=== PATIENT | female | born 1945 | race Caucasian/White ===

== ENCOUNTER → 2018-01-19 16:19 | Outpatient (CLI) | payer MEDICARE, OTHER, SELFPAY ==
--- NOTE | 2018-01-19 16:22 | CT_ITS ---
STUDY: CT MAXILLOFACIAL SINUSES REASON FOR EXAM: Female, 72 years old. Sinusitis RADIATION DOSAGE (If Supplied By Facility): CTDIvol = ( 29.38 ) mGy, DLP = ( 363.80 ) mGycm TECHNIQUE: The patient was scanned in a multi detector CT scanner. High resolution axial imaging was performed without the administration of intravenous contrast material. Sagittal and coronal images were reconstructed. Individualized dose optimization techniques were used for this CT. COMPARISON: None. FINDINGS: FRONTAL SINUSES: Non developed. ETHMOIDAL SINUSES: Normal aeration, without mucosal inflammatory disease. MAXILLARY SINUSES: Normal aeration, without mucosal inflammatory disease. SPHENOIDAL SINUSES: Normal aeration, without mucosal inflammatory disease. There is patency of the bilateral maxillary infundibuli with normal uncinate processes, ethmoid bullae, and hiatus semilunaris. Normal bilateral middle turbinates. Normal bilateral inferior turbinates. Normal midline nasal septum. There is patency of the bilateral nasal airways. The visualized osseous structures are normal. The visualized bilateral orbital contents are normal. CT/Sinus/Facial Bone IMPRESSION: Normal CT examination of the maxillofacial sinuses. Electronically Signed: Negro Morales MD at 16:43 EDT , Service support ,
== END ==
PROVIDERS: Family Provider Family Medicine; PCP Family Medicine; Visit Provider Otolaryngology Otolaryngology/Facial Plastic Surgery
DX: J32.9 Chronic sinusitis, unspecified (principal)
CPT/HCPCS: 70486

== ENCOUNTER → 2018-03-19 08:16 | Outpatient (CLI) | payer MEDICARE, OTHER, SELFPAY ==
--- NOTE | 2018-03-19 08:25 | RAD_ITS ---
STUDY: AIR-CONTRAST UPPER GI SERIES. REASON FOR EXAM: Female, 72 years old. Gastroesophageal reflux disease. Hiatal hernia. FLUOROSCOPY TIME (if supplied): (0:49) minutes/seconds TECHNIQUE: The patient ingested barium. Multiple images of the esophagus, stomach and duodenum were obtained. COMPARISON: None. FINDINGS: There is evidence of a small sliding hiatal hernia. No gastroesophageal reflux is seen. The stomach and duodenum are unremarkable. There is no evidence of ulceration. No mass lesion is present. RAD/Upper GI Series Only IMPRESSION: Small sliding hiatal hernia without gastroesophageal reflux. Electronically Signed: Azam Mir MD at 14:28 EDT Tel [phone], Service support ,
== END ==
PROVIDERS: Family Provider Family Medicine; PCP Family Medicine; Visit Provider Internal Medicine Gastroenterology
DX: K21.9 Gastro-esophageal reflux disease without esophagitis (principal); K44.9 Diaphragmatic hernia without obstruction or gangrene
CPT/HCPCS: 74246

== ENCOUNTER 2018-04-04 08:13 | Day surgery (SDC) | payer MEDICARE, OTHER, SELFPAY ==
[2018-04-04 08:51] VITALS: BP 116/68; PULSE 66; RESP 16; TEMP 37.1; O2SAT 97; BMI 24.0
--- NOTE | 2018-04-04 09:34 | PCM.OPRPT ---
Problem List (1) Gastro-esophageal reflux disease without esophagitis Status: Acute (2) Chronic throat clearing Status: Acute Report of Operation Date of Procedure: 04/04/18 Pre-Operative Diagnosis: K 21.9 gas esophageal reflux disease without esophagitis. R 68.89 chronic throat clearing Post-Operative Diagnosis: Same Surgery/Procedure Performed:: Esophagogastroduodenoscopy with biopsy and with 48 hour pH probe Type of Anesthesia:: MAC Anesthesiologist: Jarrod Douglass Description of Procedure: Patient was brought into the endoscopy suite. Back of her throat was sprayed with Cetacaine spray. Bite-block was placed. She was placed in the left lateral decubitus position. She was given graded anesthesia. The scope was inserted into the oropharynx. It was directed down through the esophagus into the stomach and into the duodenum without difficulty. Operative findings: 1. Duodenum: Normal appearance no mass lesions no ulcerations no signs of bleeding. 2. Stomach: Normal appearance no mass lesions she did have some antral gastritis biopsy for H. pylori was obtained retroflexion did show a small hiatal hernia. There were no mass lesions. There is no signs of any bleeding. 3. Esophagus Z line was located at 36 cm it appeared normal. There is no signs of mass lesions. There is no signs of esophagitis. The pH probe was marked to 30/cm. It was placed in the oropharynx and directed down through the esophagus without difficulty. Suction was applied for the appropriate amount of time the pH probe was deployed. The scope was then reinserted into the esophagus and photograph was obtained showing the probe to be properly attached to the lateral sidewall of the esophagus. She tolerated this procedure well. - Admit VTE Documentation VTE Present on Admission: No VTE Mechan Device Prophylaxis: None VTE Pharm Prophylaxis ordered?: No Reason prophylaxis not ordered:: Treatment Not Indicated
[2018-04-04 09:41] VITALS: BP 116/68; BP 119/65; PULSE 93; RESP 16; TEMP 36.7; O2SAT 94
[2018-04-04 09:45] VITALS: BP 115/74; BP 116/68; PULSE 81; RESP 16; O2SAT 93
[2018-04-04 09:50] VITALS: BP 113/79; BP 116/68; PULSE 76; RESP 16; O2SAT 95
[2018-04-04 09:52] VITALS: BP 114/62; BP 116/68; PULSE 70; RESP 16; TEMP 37.1; O2SAT 93
[2018-04-04 10:10] VITALS: BP 116/68
== END 2018-04-04 10:26 | disposition home or self-care (01) ==
LOC: EN 08:15 → AC 08:16
PROVIDERS: Family Provider Family Medicine; PCP Family Medicine; Visit Provider Surgery
PROC: (CPT 43235; principal; 2018-04-04 09:00)
DX: K21.9 Gastro-esophageal reflux disease without esophagitis (principal); R68.89 Other general symptoms and signs; I10 Essential (primary) hypertension; E78.00 Pure hypercholesterolemia, unspecified
CPT/HCPCS: 43235; J7120

== ENCOUNTER 2018-07-07 10:15 | Emergency (ER) | payer MEDICARE, OTHER, SELFPAY ==
[2018-07-07 10:16] VITALS: BP 138/112; PULSE 110; RESP 18; TEMP 36.6; O2SAT 98; BMI 23.3
[2018-07-07 11:00] LABS: Mucous, Urine 0 SEEN /hpf (<or=2+); Red Blood Cells-Urine 0 SEEN /hpf (0-5)
[2018-07-07 11:05] LABS: Glucose, Dipstick Normal (Normal); Ketone-Dipstick 5 mg/dl (Negative); Leukocyte Esterase-Dipstick 500 /ul (Negative); Nitrite-Dipstick Positive (Negative); Occult Blood-Urine 10 /ul (Negative); Protein-Dipstick 15 mg/dl (Negative); Specific Gravity, Urine 1.015 (1.002-1.030); Urine Clarity Sl. Cloudy (Clear); Urine Urobilinogen 8 mg/dl (Normal)
[2018-07-07 11:08] LABS: Color, Urine SEE COMMENT BELOW (Yellow); Urine Bilirubin Dipstick 6 mg/dL (Negative)
[2018-07-07 11:22] LABS: Bacteria 2+ /hpf (None Seen); Squamous Epithelial Cells - UA 0-5 SEEN /hpf (5-10); White Blood Cells 5-10 SEEN /hpf (0-5)
--- NOTE | 2018-07-07 11:47 | ED.VISSUMM ---
- ER Visit Summary Date of Service: 07/07/18 Chief Complaint: urinary tract infection History of Present Illness: The patient is a 72 F with a history of frequent urinary tract infection presents with 2 days of dysuria, frequency, and urgency. No fever, nausea, or flank pain. She had a culture positive UTI approximately 15 days ago that grew out a form of staph, multidrug resistant but sensitive to oral doxycycline. She completed a course of doxycycline and felt mostly better but not completely back to baseline. She finished this 4 days ago and started having significant UTI symptoms again 2 days ago. She went back to the [facility] urgent care yesterday and had a culture sent off but the results are not back yet. Physical Examination: No fever. Not in distress. Sitting up in bed, well appearing. Abdomen is soft and nontender. No flank tenderness. Test Results: Urine definitely appears infected with positive nitrites, bacteria, leukocytes, and other markers of infection. I sent a new culture. Emergency Department Course and Treatment: I reviewed her culture from the with her permission and she was sensitive to vancomycin but resistant to most oral agents except for doxycycline. Most recent culture is still not resulted. Treatment Plan: I discussed the case with the patient's son, Dr. Ferris. She would prefer not to be admitted to the hospital at this point and since we do not have a new culture back yet, it will be difficult to direct therapy. We discussed options and since she did have indeterminate sensitivity to Macrobid on her last culture, we elected to treat her with this orally and to give her 1 dose of intravenous vancomycin here so that she will be covered and hopefully the culture will result tomorrow which can be used to direct further therapy. She may require an entire course of intravenous antibiotics which means she may need to come back to the emergency department tomorrow for another dose of IV antibiotics and either admission to the hospital or to get her set up with outpatient antibiotic therapy. She would prefer this over staying in the hospital at this time and given her well appearance, I think it is safe. Her son will assist with getting the culture results and she will return to the emergency department if she is any worse before then. Disposition: Home in stable condition Impression: Initial encounter multidrug-resistant urinary tract infection This note was generated with [employer] dictation software. It may contain incorrect words, spelling, and punctuation that were not noted in review of the chart prior to signing ED Disposition - Plan for ED Patient: Chief Complaint: Complaint Instructions: ED UTI Cystitis Female Prescriptions: Nitrofurantoin Macrocrystals [Macrobid] 100 mg PO Q12 #14 capsule Referrals: Rangel Santos MD [Primary Care Provider] -
--- NOTE | 2018-07-07 12:44 | ED.RN ---
CALLED [facility], PHARMACY DID NOT RECEIVE THE ORDERS FOR MEDS.
[2018-07-07] MEDS: Vancomycin IV 1,000 MG/200 ML BAG 200 MG IV (12:54)
[2018-07-07 14:08] VITALS: BP 146/74; PULSE 78; RESP 18
== END 2018-07-07 14:13 | disposition home or self-care (01) ==
LOC: ED 11:06
PROVIDERS: Emergency Provider Emergency Medicine; Family Provider Family Medicine; PCP Family Medicine
DX: N39.0 Urinary tract infection, site not specified (principal); Z16.24 Resistance to multiple antibiotics; Z16.29 Resistance to other single specified antibiotic
CPT/HCPCS: 81001; 87086; 87088; 99284; J7030

== ENCOUNTER 2018-07-08 09:56 | Inpatient (IN) | payer MEDICARE, OTHER, SELFPAY ==
[2018-07-08 09:56] VITALS: BP 127/86; PULSE 110; RESP 18; TEMP 37.6; O2SAT 96; BMI 23.3
--- NOTE | 2018-07-08 10:23 | ED.VISSUMM ---
- ER Visit Summary Date of Service: 07/08/18 Chief Complaint: [] Persistent urinary tract infections history of same History of Present Illness: The patient is a 72 F [] please see the note dictated yesterday July 07 ED dictation, the patient has persistent UTI symptoms she apparently has recent urine cultures that show multiple drug-resistant organisms but they are so sensitive to doxycycline intermittently sensitive to Macrobid because of that concern additional cultures were sent yesterday and she was given a dose of IV vancomycin, she felt well did not wish to be admitted she presents today basically because she is concerned the infection has persisted she continues to have dysuria and urinary frequency her son is a physician he was contacted In the past she has been on suppressive therapy with Macrobid that was discontinued a few months ago related to concerns for resistance developing she has had no fever no cough no abdominal pain just a frequent urination and dysuria Physical Examination: [] She is quite upset about all the above her temperature is 99.6 her blood pressures within normal range HEENT is unremarkable lungs are clear heart tones are normal the abdomen soft nontender upper lower extremities and back unremarkable neurologically is awake alert moving all 4 Test Results: [] Emergency Department Course and Treatment: [] Patient had unremarkable labs yesterday we will obtain screening labs I talked with her son who is a physician Dr. Gonzales [phone]'s time will obtain additional screening labs will start the patient on IV Rocephin and asked hospitalist to see her for further management Treatment Plan: [] Disposition: [] Admit stable pending hospitalist evaluation Impression: [] Persistent UTI refractory to outpatient therapy history of resistant bacteria causing UTI This note was generated with [employer] dictation software. It may contain incorrect words, spelling, and punctuation that were not noted in review of the chart prior to signing ED Disposition - Plan for ED Patient: Chief Complaint: Complaint Referrals: Rangel Santos MD [Primary Care Provider] -
[2018-07-08 10:34] LABS: Mucous, Urine 0 SEEN /hpf (<or=2+); Red Blood Cells-Urine 0 SEEN /hpf (0-5)
[2018-07-08 10:36] LABS: Color, Urine Yellow (Yellow); Glucose, Dipstick Normal (Normal); Ketone-Dipstick 5 mg/dl (Negative); Leukocyte Esterase-Dipstick 500 /ul (Negative); Nitrite-Dipstick Negative (Negative); Occult Blood-Urine 10 /ul (Negative); Protein-Dipstick Negative (Negative); Urine Bilirubin Dipstick Negative (Negative); Urine Clarity Sl. Cloudy (Clear); Urine Urobilinogen Normal (Normal)
--- NOTE | 2018-07-08 10:36 | ED.DCSUM_ITS ---
- ER Visit Summary Date of Service: 07/08/18 Chief Complaint: [] Persistent urinary tract infections history of same History of Present Illness: The patient is a 72 F [] please see the note dictated yesterday July 07 ED dictation, the patient has persistent UTI symptoms she apparently has recent urine cultures that show multiple drug- resistant organisms but they are so sensitive to doxycycline intermittently sensitive to Macrobid because of that concern additional cultures were sent yesterday and she was given a dose of IV vancomycin, she felt well did not wish to be admitted she presents today basically because she is concerned the infection has persisted she continues to have dysuria and urinary frequency her son is a physician he was contacted In the past she has been on suppressive therapy with Macrobid that was discontinued a few months ago related to concerns for resistance developing she has had no fever no cough no abdominal pain just a frequent urination and dysuria Physical Examination: [] She is quite upset about all the above her temperature is 99.6 her blood pressures within normal range HEENT is unremarkable lungs are clear heart tones are normal the abdomen soft nontender upper lower extremities and back unremarkable neurologically is awake alert moving all 4 Test Results: [] Emergency Department Course and Treatment: [] Patient had unremarkable labs yesterday we will obtain screening labs I talked with her son who is a physician Dr. Gonzales [phone]'s time will obtain additional screening labs will start the patient on IV Rocephin and asked hospitalist to see her for further management Treatment Plan: [] Disposition: [] Admit stable pending hospitalist evaluation Impression: [] Persistent UTI refractory to outpatient therapy history of resistant bacteria causing UTI This note was generated with [employer] dictation software. It may contain incorrect words, spelling, and punctuation that were not noted in review of the chart prior to signing ED Disposition - Plan for ED Patient: Chief Complaint: Complaint Referrals: Rangel Santos MD [Primary Care Provider] -
[2018-07-08 10:42] LABS: Bacteria RARE /hpf (None Seen); Squamous Epithelial Cells - UA 0-5 SEEN /hpf (5-10); White Blood Cells 0-5 SEEN /hpf (0-5)
[2018-07-08 10:56] LABS: Absolute Lymphocyte Count 1.32 X10^3/ul (0.83-4.51); Absolute Neutrophil Count 4.4 X10^3/uL (2.0-7.7); Basophil# 0.02 X10^3/uL; Basophil% 0.3 % (0-1); Eosinophil# 0.09 X10^3/uL; Eosinophils% 1.5 % (0-5); Hematocrit 46.7 % (37-47); Hemoglobin 15.9 g/dl (12.0-15.0); Lymphocyte # 1.32 X10^3/ul (4.0); Lymphocyte % 21.3 % (19-41); Mean Corpuscular Hgb 31.5 pg (27.0-32.0); Mean Corpuscular Volume 92.7 fL (81-99); Mean Platelet Vol. 10.8 fl (6.2-12.0); Monocyte# 0.31 X10^3/uL; Neutrophil # 4.44 X10^3/uL (2.7-7.7); Neutrophil % 71.7 % (47-70); Platelet Count 275 K/mm3 (150-450); RBC Distribution Width CV 12.6 % (11.6-14.6); RBC Distribution Width SD 42.3 fl (35.1-43.9); Red Blood Count 5.04 M/mm3 (4.2-5.4); White Blood Count 6.2 K/mm3 (4.4-11.0)
[2018-07-08 10:57] LABS: POSITIVE COUNT NO; POSITIVE DIFFERENTIAL NO; POSITIVE MORPHOLOGY NO
[2018-07-08 11:06] LABS: Anion Gap 11 (5-15); BUN 16 mg/dL (7-18); BUN/Creat Ratio 17.8 RATIO (10-20); Calcium,Total 9.3 mg/dL (8.5-10.1); Chloride 109 mmol/L (98-107); EST Glomerular Filtration Rate 65 mL/min (>60); Est Glom Filt Rate - Afr Amer 78 mL/min (>60); Estimated Creatinine Clearance 45.36 ml/min; Glucose 113 mg/dL (74-106); Potassium 3.8 mmol/L (3.5-5.1); Sodium Level 144 mmol/L (136-145)
[2018-07-08 11:41] LABS: Lactic Acid 0.8 mmol/L (0.4-2.0)
--- NOTE | 2018-07-08 11:59 | PCM.HP.STD ---
Problem List (1) Gastro-esophageal reflux disease without esophagitis Status: Chronic (2) Hyperlipidemia Status: Chronic (3) Hypertension Status: Chronic History of Present Illness Date of Admission: 07/08/18 Chief Complaint: Dysuria, urgency, frequency. The patient is a 72 year old F with past medical history as mentioned above presented to the emergency room because of persistent UTI symptoms. Her illness started around 2 weeks ago with dysuria, frequency and urgency as well and she was started on Bactrim that she took for almost 1 week without improvement of her symptoms. Towards the end of the Bactrim course, she received a call from her PCPs office and was informed that she needed to start a different antibiotic because of the results of the urine culture and she was started on doxycycline. She completed 1 week of doxycycline treatment twice a day without improvement of her symptoms. She continued to have urinary discomfort upon urination, urgency and frequency as well as a subjective low-grade fever. Yesterday, she came to the emergency department with the same symptoms, she was given 1 dose of IV vancomycin because reportedly, urine culture revealed staph aureus and she was discharged home on Macrobid. Today, she is getting back to the ED because of persistent dysuria, frequency and urgency. She had a history of hypertension and she has been on Norvasc and her blood pressure seemed to be under control. She had a history of hyperlipidemia and she has been on statins. Recently, she was seen by Dr. Lu for persistent throat clearing, had a esophageal pH monitoring that was unremarkable and was diagnosed with probable GERD although she has not been on any PPI. In the emergency department, she was tachycardic, afebrile, blood pressure stable, pulse ox is maintained on room air. Her routine blood work was unremarkable, no leukocytosis. Lactic acid is normal. Urinalysis from today revealed cloudy urine, negative for nitrite, negative for leukocyte esterase, there was 0-5 WBCs and rare bacteria. Urine analysis from yesterday July 07, 2018 revealed cloudy urine, positive for nitrite and leukocyte esterase, there was 5-10 WBCs and 2+ bacteria. Urine culture was done yesterday and revealed presumptive E. coli, sensitivities pending. She is being admitted for persistent symptomatic acute cystitis with failure of outpatient therapy. Past Medical History Past Medical History (Chronic Problems): Chronic Problems (Last Reviewed 05/14/18 @ 10:02 by Zuleima Osullivan) Gastro-esophageal reflux disease without esophagitis (Chronic) Hyperlipidemia (Chronic) Hypertension (Chronic) Medical History: Medical History (Last Reviewed 05/14/18 @ 10:02 by Zuleima Osullivan) Hypercholesterolemia E78.00 Allergies No Known Allergies Allergy (Verified 07/08/18 09:58) Home Medications: Ambulatory Orders Medication Instructions Recorded Simvastatin [Simvastatin] 10 mg PO DAILY 08/05/16 amlodipine 5 mg tablet 5 mg PO QHS 03/30/18 Nitrofurantoin Macrocrystals 100 mg PO Q12 #14 capsule 07/07/18 [Macrobid] Surgical History: Surgical History (Last Reviewed 05/14/18 @ 10:02 by Zuleima Osullivan) History of appendectomy Z90.49 History of hysterectomy Z90.710 History of laparoscopic cholecystectomy Z90.49 history of surgery for subdural hematoma Surgical History: appendectomy, cholecystectomy, herniorrhaphy Psychiatric History: No pertinent psych hx [employer]ER History: No pertinent [employer]ER history Lives: Spouse/ Significant Other Smoking Status: Never smoker Alcohol: None Drugs: None - *Family History Maternal Family History: Family History (Last Reviewed 05/14/18 @ 10:02 by Zuleima Osullivan) Mother Heart disease Father Heart disease Brother Heart disease History Items: No pertinent history Paternal Family History: Family History (Last Reviewed 05/14/18 @ 10:02 by Zuleima Osullivan) Mother Heart disease Father Heart disease Brother Heart disease History Items: No pertinent history Review of Systems Constitutional: Reports: Fever. Denies: Anorexia, Chills, Weakness Eyes: Denies: Blurred vision, Double vision, Drainage, Redness HEENT: Denies: Difficulty Hearing, Ear Pain, Eye Pain, Nasal Congestion, Sore Throat Cardiovascular: Denies: Chest Pain, Chest Pressure, Chest Tightness, Heaviness, Palpitations, Syncope Respiratory: Denies: Cough, Pleuritic Pain, Shortness of Breath, Sputum production, Wheezing Gastrointestinal: Denies: Abdominal Pain, Constipation, Diarrhea, Nausea, Vomiting Genitourinary: Reports: Dysuria, Frequency, Urgency. Denies: Hematuria Musculoskeletal: Denies: Arm Pain, Back Pain, Foot Pain Skin: Denies: Dryness, Rash Neurological: Denies: Balance problems, Double vision, Change in Speech, Slurred speech, Confusion, Focal weakness, Headaches, Incoordination Psychiatric: Denies: Anxiety, Depression Endocrine: Denies: Change in Body Habitus, Polydipsia VTE Information - Inpt Only VTE Present on Admission: No VTE Mechan Device Prophylaxis: None VTE Pharm Prophylaxis ordered?: Yes - Physical Exam General: Alert, Oriented x3, Cooperative, No apparent distress HEENT: Atraumatic, PERRLA, EOMI, Normocephalic Oral: Moist Mucosa, No Gingival or Mucosal Lesions/ Ulcerations Neck: Supple, No JVD, Negative Carotid Bruits, Trachea Midline, Thyroid Normal Size and Texture Lungs: Clear to auscultation, Normal air movement, No rhonchi, No wheeze, No rales Cardiovascular: Regular rate, Regular Rhythm, Normal S1, Normal S2, No murmurs Abdomen: Bowel Sounds Present, Soft, Non Tender, Non-Distended, No Hepato-splenomegaly Extremities: No clubbing, No cyanosis, No edema Skin: No rashes, No breakdown Lymphatic: No Cervical, Supraclavicular, or Inguinal Adenopathy Neurological: Cranial nerves II-XII grossly intact, Motor Exam 5/5 strength throughout Psych/Mental Status: Normal Affect, Appropriate, Alert and oriented to time, place, person, mood and affect Vital Signs Temp Pulse Resp BP Pulse Ox 99.6 F H 110 H 18 127/86 H 96 07/08/18 09:56 07/08/18 09:56 07/08/18 09:56 07/08/18 09:56 07/08/18 09:56 Oxygen Delivery Method Room Air Weight: 132 lb Body Mass Index (BMI) 23.3 Laboratory Tests Past 24 Hrs 07/08/18 07/08/18 07/08/18 10:25 10:43 10:43 WBC 6.2 RBC 5.04 Hgb 15.9 H Hct 46.7 MCV 92.7 MCH 31.5 MCHC 34.0 RDW 12.6 RDW Differential 42.3 Plt Count 275 MPV 10.8 Immature Gran % (Auto) 0.200 Neut % (Auto) 71.7 H Lymph % (Auto) 21.3 Alexander % (Auto) 5.0 Eos % (Auto) 1.5 Baso % (Auto) 0.3 Absolute Neuts (auto) 4.4 Absolute Lymphs (auto) 1.32 Total Counted Not Reportable Sodium 144 Potassium 3.8 Chloride 109 H Carbon Dioxide 24.0 Anion Gap 11 BUN 16 Creatinine 0.90 Estim Creat Clear Calc 45.36 Est GFR (MDRD) Af Amer 78 Est GFR (MDRD) Non-Af 65 BUN/Creatinine Ratio 17.8 Glucose 113 H Lactic Acid Calcium 9.3 Urine Color Yellow Urine Clarity Sl. Cloudy Urine pH 6.0 Ur Specific Terrell 1.010 Urine Protein Negative Urine Glucose (UA) Normal Urine Ketones 5 H Urine Occult Blood 10 H Urine Nitrite Negative Urine Bilirubin Negative Urine Urobilinogen Normal Ur Leukocyte Esterase 500 H Urine RBC 0 SEEN Urine WBC 0-5 SEEN Ur Squamous Epith Cells 0-5 SEEN Urine Bacteria RARE Urine Mucus 0 SEEN 07/08/18 11:00 WBC RBC Hgb Hct MCV MCH MCHC RDW RDW Differential Plt Count MPV Immature Gran % (Auto) Neut % (Auto) Lymph % (Auto) Alexander % (Auto) Eos % (Auto) Baso % (Auto) Absolute Neuts (auto) Absolute Lymphs (auto) Total Counted Sodium Potassium Chloride Carbon Dioxide Anion Gap BUN Creatinine Estim Creat Clear Calc Est GFR (MDRD) Af Amer Est GFR (MDRD) Non-Af BUN/Creatinine Ratio Glucose Lactic Acid 0.8 Calcium Urine Color Urine Clarity Urine pH Ur Specific Terrell Urine Protein Urine Glucose (UA) Urine Ketones Urine Occult Blood Urine Nitrite Urine Bilirubin Urine Urobilinogen Ur Leukocyte Esterase Urine RBC Urine WBC Ur Squamous Epith Cells Urine Bacteria Urine Mucus Assessment/Plan This is a 72 years old female patient presented to the emergency room because of persistent dysuria, frequency and urgency after she received multiple courses of antibiotics for the last couple weeks without improvement and she is being admitted for persistent acute cystitis with failure of outpatient therapy. #1 persistent acute cystitis: Patient has been on Bactrim for a week followed by 1 week of doxycycline without improvement. She was started on Bactrim yesterday. She states that she was called by her PCPs office during her that they needed to change the antibiotic from Bactrim to doxycycline based on her urine culture which are not available at this time. Urine analysis from today and yesterday reviewed. At this time, she is tachycardic, afebrile, blood pressure stable. Lactic acid is normal. No evidence of sepsis or severe sepsis. Urine culture sent. Routine blood work was unremarkable, no leukocytosis. Plan: Admit to [facility] floor, IV fluids, start IV Rocephin, obtain urine culture that was done at [facility] [place] in the last couple of weeks, Tylenol as needed, Zofran as needed. #2 hypertension: Blood pressure stable, continue Norvasc. #3 hyperlipidemia: Continue statins. #4 GERD: Recent diagnosis, not on PPI. She is asymptomatic. #5 DVT prophylaxis: Subcu Lovenox. This note was generated with [employer] dictation software. It may contain incorrect words, spelling, and punctuation that were not noted in checking the note before signing. Code Visit Inpatient E&M: 94232 Init Hosp L2
[2018-07-08 12:15] VITALS: BP 128/72; PULSE 85; RESP 16; O2SAT 98
[2018-07-08 12:22] VITALS: BMI 23.4; BMI 23.5
[2018-07-08 12:48] VITALS: BP 133/72; PULSE 69; RESP 16; TEMP 36.7; O2SAT 98
[2018-07-08] MEDS: 0.9% Normal Saline 1,000 ML 100 ML IV (13:02)
[2018-07-08 18:08] VITALS: BP 130/66; PULSE 85; RESP 18; TEMP 36.7; O2SAT 95
[2018-07-08 20:00] VITALS: BP 136/71; PULSE 62; RESP 14; TEMP 36.4; O2SAT 97
[2018-07-09 02:00] VITALS: BP 121/77; PULSE 60; RESP 14; TEMP 36.6; O2SAT 95
[2018-07-09] MEDS: Acetaminophen 325 MG Tablet 650 MG PO (06:55)
[2018-07-09 07:31] VITALS: BP 142/87; PULSE 66; RESP 16; TEMP 36.5; O2SAT 97
--- NOTE | 2018-07-09 09:05 | PCM.PROGNOTE ---
Subjective: Chief complaint: Follow-up after admission for persistent acute cystitis. Patient seen and examined. No acute events overnight. Today, she complained of significant dysuria, frequency and mild pelvic pain. She mentioned that she has this pain when she urinates and even without urination. According to the patient, it has been getting worse. She remained afebrile. She denied vaginal discharge. She denies constipation or diarrhea. He is afebrile, vital signs are stable. - Physical Exam General: Alert, Oriented x3, Cooperative, No apparent distress HEENT: Atraumatic, PERRLA, EOMI, Normocephalic Oral: Moist Mucosa, No Gingival or Mucosal Lesions/ Ulcerations Neck: Supple, No JVD, Negative Carotid Bruits, Trachea Midline, Thyroid Normal Size and Texture Lungs: Clear to auscultation, Normal air movement, No rhonchi, No wheeze, No rales Cardiovascular: Regular rate, Regular Rhythm, Normal S1, Normal S2, PMI Normal Abdomen: Bowel Sounds Present, Soft, Non Tender, Non-Distended, No Hepato-splenomegaly Extremities: No clubbing, No cyanosis, No edema Skin: No rashes, No breakdown Lymphatic: No Cervical, Supraclavicular, or Inguinal Adenopathy Neurological: Cranial nerves II-XII grossly intact, Neuro grossly intact Psych/Mental Status: Normal Affect, Appropriate, Alert and oriented to time, place, person, mood and affect Vital Signs Temp Pulse Resp BP Pulse Ox 97.7 F L 66 16 142/87 H 97 07/09/18 07:31 07/09/18 07:31 07/09/18 07:31 07/09/18 07:31 07/09/18 07:31 Oxygen Delivery Method Room Air Weight: 132 lb 7.965 oz Body Mass Index (BMI) 23.4 Intake and Output for Last 24 Hours 07/07/18 07/08/18 07/09/18 23:59 23:59 23:59 Intake Total 1582 / 1582 200 / 200 Output Total 500 / 500 150 / 150 Balance 1082 / 1082 50 / 50 Medical Necessity - Tobacco Use Smoking Status: Never smoker Assessment/Plan This is a 72 years old female patient presented to the emergency room because of persistent dysuria, frequency and urgency after she received multiple courses of antibiotics for the last couple weeks without improvement and she is being admitted for persistent acute cystitis with failure of outpatient therapy. #1 persistent acute cystitis: She is on IV Rocephin. Her vital signs are stable, afebrile. She is still symptomatic with significant dysuria and frequency as well as pelvic pain. Urine culture from yesterday still pending. Urine culture from July 07, 2018 showed result of E. coli, sensitivity is pending. We are waiting for the urine culture results from PCPs office, which will be tomorrow. Plan: Change Rocephin to IV Zosyn, pelvic ultrasound, OxyIR as needed for pain. #2 hypertension: Blood pressure stable, continue Norvasc. #3 hyperlipidemia: Continue statins. #4 GERD: Recent diagnosis, not on PPI. She is asymptomatic. #5 DVT prophylaxis: Subcu Lovenox. This note was generated with [employer] dictation software. It may contain incorrect words, spelling, and punctuation that were not noted in checking the note before signing. Code Visit Inpatient E&M: 90340 Subs Hosp L2
[2018-07-09] MEDS: oxyCODONE 5 MG Tablet PO (09:36)
[2018-07-09] MEDS: Enoxaparin 40 MG/0.4 ML Syringe SC (09:38)
[2018-07-09] MEDS: Piperacil/Tazobactam 3.375 GM/50 ML ML IV ×2 (10:53→22:22)
[2018-07-09] MEDS: Ondansetron 4 MG/2 ML Vial IV (11:29)
[2018-07-09 11:37] VITALS: BP 146/75; PULSE 65; RESP 16; TEMP 36.6; O2SAT 99
[2018-07-09 15:12] VITALS: BP 141/73; PULSE 62; RESP 16; TEMP 36.4; O2SAT 100
[2018-07-09 22:15] VITALS: BP 118/75; PULSE 59; RESP 16; TEMP 36.6; O2SAT 97
[2018-07-09] MEDS: Atorvastatin Calcium 10 MG Tablet 5 MG PO (22:23)
[2018-07-09] MEDS: amLODIPine 5 MG Tablet PO (22:24)
[2018-07-10 04:50] VITALS: BP 132/81; PULSE 64; RESP 18; TEMP 36.6; O2SAT 98
[2018-07-10] MEDS: Ondansetron 4 MG/2 ML Vial IV (05:01)
[2018-07-10] MEDS: 0.9% NaCl Peripheral Flush Adult/Peds IV (05:01)
[2018-07-10] MEDS: Piperacil/Tazobactam 3.375 GM/50 ML ML IV (05:44)
[2018-07-10 08:30] VITALS: BP 133/90; PULSE 60; RESP 16; TEMP 37.2; O2SAT 97
--- NOTE | 2018-07-10 10:35 | CASEMGMT ---
ALONDRA THURMAN Face to Face with patient for initial transition planning/care coordination assessment. RN CM introduced self and role at [facility]. Patient sitting in chair, alert and oriented. Patient willing to participate in assessment and is able to answer all questions appropriately. Care providers, pharmacy, and demographics verified. See link attached. Patient wishes to discharge home, denies need for home health at this time. Patient states she has no further needs or concerns at this time. CM to follow for discharge planning needs that may arise. Disposition Plan: Patient to discharge home with family support and follow-up plans in place. Mya CRAWFORD, RN, CM
--- NOTE | 2018-07-10 11:27 | PCM.HP.ID ---
Problem List (1) Infection due to ESBL-producing Escherichia coli Status: Acute Reason for Consult: esbl Consulted by: Dr. Mendes History of Present Illness: The patient is a 72 year old F with recurrent uti who presented with 2 weeks of dysuria. No abd pain, no flank pain, no fever. Had been on suppressive bactrim in the past, stopped in this past spring. Follows with Dr. Etienne. Had prior collagen injection into bladder at [facility]. When uti started again, given 1 week of bactrim with no improvement. Ucx 06/20 showed a MDR staph hominis, so abx changed to doxy for one week. No improvement with either course. Cxs repeated 07/06, sent to ED 07/07, given dose of vanc and then sent home on macrobid. Came back with persistent sx on 07/08 and GNR on ucx. Given dose of ceftriaxone, still no improvement, changed to zosyn 07/09, now feeling better, ucx with esbl ecoli. Full ROS performed and neg except as noted above. Some associated nausea and headache. - Medical History Past Medical History (Chronic Problems): Chronic Problems (Last Reviewed 05/14/18 @ 10:02 by Zuleima Osullivan) Gastro-esophageal reflux disease without esophagitis (Chronic) Hyperlipidemia (Chronic) Hypertension (Chronic) Allergies/Adverse Reactions: Allergies No Known Allergies Allergy (Verified 07/08/18 09:58) Home Medications: Ambulatory Orders Medication Instructions Recorded Simvastatin [Simvastatin] 10 mg PO QHS 08/05/16 amlodipine 5 mg tablet 5 mg PO QHS 03/30/18 Nitrofurantoin Macrocrystals 100 mg PO Q12 #14 capsule 07/07/18 [Macrobid] Ascorbic Acid [Vitamin C] 500 mg PO BIDCM #60 tab 07/10/18 Fosfomycin Tromethamine [Monurol] 3 gm PO UD #3 packet 07/10/18 Methenamine Hippurate [Hiprex] 1 gm PO BID #60 tab 07/10/18 - Social History SMOKING STATUS:: Never smoker Vital Signs Temp Pulse Resp BP Pulse Ox 99.0 F 60 16 133/90 H 97 07/10/18 08:30 07/10/18 08:30 07/10/18 08:30 07/10/18 08:30 07/10/18 08:30 Oxygen Delivery Method Room Air Weight: 60.1 kg Body Mass Index (BMI) 23.4 - Other Studies Radiology: [] reviewed Other Studies: [] Route of nutrition/ use of supplements: [] Nutritional Intake: [] IV Site: [] Pederson Catheter: [] - Physical Exam General: Alert, Oriented x3, Cooperative, No apparent distress HEENT: Atraumatic, PERRLA, EOMI Neck: Supple, No Nodes Lungs: Clear to auscultation, Normal air movement Cardiovascular: Regular rate, Regular Rhythm Abdomen: Soft, Non Tender, Non-Distended, - - no flank pain Extremities: No edema Skin: No rashes IV Site: Peripheral, without redness Musculoskeletal: No Tenderness to Palpation of Joints or Extremities Neurological: Cranial nerves II-XII grossly intact - Assessment/Plan Antibiotics: [] Assessment/Plan: [] complicated esbl ecoli uti - also with recent growth staph hominis. On zosyn, feeling better. Ok for d/c home on fosfomycin 3gm q3day for 3 doses. 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 Question if this may represent an ongoing nidus of infection. Will also start methenamine and vit C for prevention. Thank you, will follow, ID follow up in 3-4 weeks. D/w primary team.
--- NOTE | 2018-07-10 11:28 | PCM.DC ---
- Discharge Diagnoses Current Active Problems: Current Active and Chronic Problems (Last Reviewed 05/14/18 @ 10:02 by Zuleima Osullivan) Hyperlipidemia (Chronic) Hypertension (Chronic) You will use the following diet at home:: Cardiac Your food should be the consistency of: Regular Discharge Activity: Return to Normal Activity Weight Bearing Status: Weight bearing as tolerated Call your doctor if you observe: Fever of 101 or Higher, Shortness of breath, Dizziness, Fainting spells, Chest pain, Increased palpitations (irregular heartbeat), Uncontrolled pain Allergies/Adverse Reactions: Allergies No Known Allergies Allergy (Verified 07/08/18 09:58) Medications to take at Discharge Simvastatin 10 mg PO QHS 08/05/16 amlodipine 5 mg tablet 5 mg PO QHS 03/30/18 Ascorbic Acid [Vitamin C] 500 mg PO BIDCM #60 tab 07/10/18 Fosfomycin Tromethamine [Monurol] 3 gm PO UD #3 packet 07/10/18 Methenamine Hippurate [Hiprex] 1 gm PO BID #60 tab 07/10/18 Primary Care Physician: Rangel Santos MD [Primary Care Provider] - Please follow up with your Primary Care Physician in: 1-2 WEEKS. Test Results: Test results from this visit will be discussed in further detail at your follow-up appointment, if applicable. Please Follow Up With: Don Gibson MD When: PLEASE CALL HIS OFFICE.
--- NOTE | 2018-07-10 13:27 | PCM.DC.SUM ---
Discharge Date and Diagnosis - Problem List Patient Problems: Active and Suspected Problems (Last Reviewed 05/14/18 @ 10:02 by Zuleima Osullivan) Infection due to ESBL-producing Escherichia coli (Acute) Date of Admission: 07/08/18 Date of Discharge: 07/10/18 - Primary Discharge Diagnosis Active and Suspected Problems (Last Reviewed 05/14/18 @ 10:02 by Zuleima Osullivan) Acute cystitis due to ESBL-producing Escherichia coli with failure of outpatient therapy (Acute) - Secondary Discharge Diagnosis Chronic Problems (Last Reviewed 05/14/18 @ 10:02 by Zuleima Osullivan) Gastro-esophageal reflux disease without esophagitis (Chronic) Hyperlipidemia (Chronic) Hypertension (Chronic) Hospital Course and Treatment Imaging Results: Clinical Impression(s) from Imaging Studies Pelvis Ultrasound 07/09/18 09:04 IMPRESSION: Questionable lobulated mass of the bladder. Electronically Signed: Silver Melara DO at 18:58 EDT Tel [phone], Service support , Dr. gibson, infectious disease. Operations: None Procedures: None Summary of Care Provided: Patient seen and examined on the day of discharge and appeared to be stable to be discharged home. Dysuria and genital pain significantly improved. She has no new complaints. Her vital signs are stable. - Physical Exam General: Alert, Oriented x3, Cooperative, No apparent distress. HEENT: Atraumatic, PERRLA, EOMI. Neck: Supple, No JVD, Negative Carotid Bruits, Trachea Midline, Thyroid Normal. Lungs: Clear to auscultation, Normal air movement, No rhonchi, No wheeze, No rales. Cardiovascular: Regular rate, Regular Rhythm, Normal S1, Normal S2, PMI Normal. Abdomen: Bowel Sounds Present, Soft, Non Tender, Non-Distended, No Hepato-splenomegaly. Extremities: No clubbing, No cyanosis, No edema Skin: No rashes, No breakdown Neurological: Neuro grossly intact Vital Signs are stable. Hospital course: This is a 72 years old female patient admitted because of persistent dysuria, frequency and urgency after she received multiple courses of antibiotics for recurrent symptoms of acute cystitis. Patient was diagnosed with acute cystitis around 2 weeks ago, received 1 week of Bactrim without improvement. Then she was transitioned to doxycycline based on her cultures and she continued to have symptoms of dysuria, frequency and urgency. The day before admission, she was seen in the ER, was started on Macrobid and urine culture was sent. She was admitted to the floor, started on IV Rocephin and IV fluids. Her vital signs are stable. Routine blood work was unremarkable. She remained afebrile throughout admission and her vital signs remained stable. Urine culture sent and showed mixed growth. Urine culture that was done one day before admission revealed ESBL E. coli. Antibiotics was transitioned to IV Zosyn. Today, infectious disease consulted and recommended to start patient fosfomycin. Because of this persistent pain, pelvic ultrasound done and revealed questionable lobulated mass of the bladder. I spoke with the patient about this and she stated that she had collagen injection to her bladder and she had ultrasound in the past and she was informed that this questionable mass is likely due to the collagen injection. Patient discharged home in a stable medical condition, discharged on fosfomycin 3 g 1 dose every 3 days for a total of 3 doses, recommended follow-up with PCP in 1-2 weeks and follow-up with infectious disease according to Dr. Gibson's recommendation. Discharge Activity: Return to Normal Activity Weight Bearing Status: Weight bearing as tolerated Call your doctor if you observe: Fever of 101 or Higher, Shortness of breath, Dizziness, Fainting spells, Chest pain, Increased palpitations (irregular heartbeat), Uncontrolled pain Home Medications: Medications to take at Discharge Simvastatin 10 mg PO QHS 08/05/16 amlodipine 5 mg tablet 5 mg PO QHS 03/30/18 Ascorbic Acid [Vitamin C] 500 mg PO BIDCM #60 tab 07/10/18 Fosfomycin Tromethamine [Monurol] 3 gm PO UD #3 packet 07/10/18 Methenamine Hippurate [Hiprex] 1 gm PO BID #60 tab 07/10/18 Primary Care Physician: Rangel Santos MD [Primary Care Provider] - Please follow up with your Primary Care Physician in: 1-2 WEEKS. Please Follow Up With: Don Gibson MD When: PLEASE CALL HIS OFFICE. Disposition: Home Minutes spent on discharge:: 26 Patient Condition:: Stable Medical Necessity - Tobacco Use Smoking Status: Never smoker Meaningful Use Info Meaningful Use Diagnoses (Choose all that apply): None applicable Code Visit Inpatient E&M: 26901 Disch Hosp
--- NOTE | 2018-07-10 13:30 | CASEMGMT ---
ALONDRA THURMAN received update from retail pharmacy regarding Fosfomycin script costing 248.30 and no insurance preferred medication. ALONDRA THURMAN completed prior authorization over the phone and updated Dr. Gibson. Dr. Gibson said that he would message pharmacy and arrange for patient to receive dose of fosfomycin while here at hospital prior to discharge. ALONDRA THURMAN updated patient regarding Prior Auth for medication and response should be received in 24 hours. ALONDRA THURMAN will follow-up with prior auth for med and follow up with patient at home with update.
[2018-07-10 15:10] VITALS: BP 133/65; PULSE 78; RESP 18; TEMP 37.1; O2SAT 98
[2018-07-10] MEDS: FOSFOMYCIN TROMETHAMINE 3 GM PACKET PO (15:40)
== END 2018-07-10 15:45 | disposition home or self-care (01) | DRG 690 ==
LOC: ED 10:36 → MS3 12:14
PROVIDERS: Admitting Provider Hospitalist; Emergency Provider Emergency Medicine; Family Provider Family Medicine; PCP Family Medicine; Visit Provider Hospitalist
DX: N30.00 Acute cystitis without hematuria (principal); E78.5 Hyperlipidemia, unspecified; B96.20 Unspecified Escherichia coli [E. coli] as the cause of diseases classified elsewhere; I10 Essential (primary) hypertension; K21.9 Gastro-esophageal reflux disease without esophagitis
CPT/HCPCS: 76856; 80048; 81001; 83605; 85025; 87086; 87088; 87186; 96365; 99282; 99284; J7030; J7040; A4216; J0696; J2405

== ENCOUNTER 2018-09-20 17:07 | Emergency (ER) | payer MEDICARE, OTHER, SELFPAY ==
[2018-09-20 17:09] VITALS: BP 153/91; PULSE 89; RESP 17; TEMP 36.7; O2SAT 95; BMI 23.8
[2018-09-20 17:50] LABS: Mucous, Urine 0 SEEN /hpf (<or=2+)
[2018-09-20 17:57] LABS: Glucose, Dipstick Normal (Normal); Ketone-Dipstick 50 mg/dl (Negative); Leukocyte Esterase-Dipstick 100 /ul (Negative); Nitrite-Dipstick Positive (Negative); Occult Blood-Urine 250 /ul (Negative); Protein-Dipstick 100 mg/dl (Negative); Specific Gravity, Urine 1.015 (1.002-1.030); Urine Clarity Sl. Cloudy (Clear); Urine Urobilinogen 12 mg/dl (Normal)
[2018-09-20 18:08] LABS: Color, Urine SEE COMMENT BELOW (Yellow); Urine Bilirubin Dipstick 6 mg/dL (Negative)
[2018-09-20 18:12] LABS: Anion Gap 8 (5-15); BUN 15 mg/dL (7-18); BUN/Creat Ratio 21.8 RATIO (10-20); Calcium,Total 8.9 mg/dL (8.5-10.1); Chloride 109 mmol/L (98-107); Creatinine, Serum 0.69 mg/dL (0.55-1.02); EST Glomerular Filtration Rate 88 mL/min (>60); Est Glom Filt Rate - Afr Amer 107 mL/min (>60); Estimated Creatinine Clearance 40.21 ml/min; Glucose 96 mg/dL (74-106); Potassium 3.5 mmol/L (3.5-5.1); Sodium Level 143 mmol/L (136-145)
[2018-09-20 18:21] LABS: Absolute Lymphocyte Count 1.75 X10^3/ul (0.83-4.51); Absolute Neutrophil Count 8.5 X10^3/uL (2.0-7.7); Basophil# 0.01 X10^3/uL; Basophil% 0.1 % (0-1); Eosinophil# 0.04 X10^3/uL; Eosinophils% 0.4 % (0-5); Hematocrit 43.1 % (37-47); Hemoglobin 14.3 g/dl (12.0-15.0); Lymphocyte # 1.75 X10^3/ul (4.0); Lymphocyte % 16.2 % (19-41); Mean Corp Hgb Conc 33.2 g/gl (32-36); Mean Corpuscular Hgb 31.1 pg (27.0-32.0); Mean Corpuscular Volume 93.7 fL (81-99); Mean Platelet Vol. 10.7 fl (6.2-12.0); Monocyte# 0.57 X10^3/uL; Monocyte% 5.3 % (0-10); Neutrophil # 8.45 X10^3/uL (2.7-7.7); Neutrophil % 77.9 % (47-70); Platelet Count 243 K/mm3 (150-450); RBC Distribution Width CV 12.9 % (11.6-14.6); RBC Distribution Width SD 43.9 fl (35.1-43.9); White Blood Count 10.8 K/mm3 (4.4-11.0)
[2018-09-20 18:24] LABS: White Blood Cells 10-25 SEEN /hpf (0-5)
[2018-09-20 18:25] LABS: Bacteria RARE /hpf (None Seen); Red Blood Cells-Urine 25-50 SEEN /hpf (0-5); Squamous Epithelial Cells - UA 0-5 SEEN /hpf (5-10)
[2018-09-20 18:26] LABS: POSITIVE COUNT NO; POSITIVE DIFFERENTIAL NO; POSITIVE MORPHOLOGY NO
--- NOTE | 2018-09-20 20:05 | ED.VISSUMM ---
- ER Visit Summary Date of Service: 09/20/18 Chief Complaint: UTI History of Present Illness: The patient is a [address] Etienne and Dr. Santos. She reports that she has dysuria, frequency, and hematuria that began today. She denies any constitutional symptoms. No fever, chills, nausea, vomiting, or back pain. Physical Examination: Vitals: Stable. Afebrile. General: Well-nourished and well-developed. Head: Normocephalic atraumatic. Neck: Supple, no lymphadenopathy. No JVD. Nontender. Cardiovascular: Regular rate and rhythm. No murmurs. Respiratory: No respiratory distress. Clear to auscultation bilaterally. Abdominal: Soft, nontender, nondistended, normal bowel sounds. No guarding, rebound, or peritoneal signs. Back: Nontender. Extremities: Nontender, no edema. Skin: Normal color, no rash. Neurologic: Alert and oriented ?3. Cranial nerves II through XII are intact. Normal strength and sensation. Psych: Normal affect. Test Results: CBC is remarkable for segmented neutrophils 78 lymphocytes 16. Chem-7 is more for chloride 109. UA shows leukocytes, nitrites, blood, ketones, 10-25 white blood cells, 25-50 red blood cells, and trace bacteria. Emergency Department Course and Treatment: Review of the patient's prior records show that she had a urine culture in July of this year that showed E. coli that was ESBL. At that time she was admitted to the hospital and given Zosyn. She was discharged on fosfomycin. She was given a dose of meropenem IV here. Treatment Plan: Patient was discussed with Dr. Etienne and Dr. Gibson. She will be discharged on fosfomycin 3 g p.o. every 3 days x3 doses. Instructed to follow-up Dr. Etienne in 4 days as previously scheduled. Return to the emergency department for any worsening symptoms. Disposition: To home in improved and stable condition. Impression: 1. UTI. 2. History of ESBL E. coli UTI. This note was generated with Gamisfactionation software. It may contain incorrect words, spelling, and punctuation that were not noted in review of the chart prior to signing ED Disposition - Plan for ED Patient: Disposition: Home or Assisted Living Chief Complaint: Complaint Instructions: ED UTI Cystitis Female Referrals: Don Gibson MD [STAFF PHYSICIAN] - Sonny Etienne MD [STAFF PHYSICIAN] - Keep Dex appointment
[2018-09-20 21:33] VITALS: RESP 18
== END 2018-09-20 21:35 | disposition home or self-care (01) ==
LOC: ED 17:52
PROVIDERS: Emergency Provider Emergency Medicine; Family Provider Family Medicine; PCP Family Medicine
DX: N39.0 Urinary tract infection, site not specified (principal); B96.20 Unspecified Escherichia coli [E. coli] as the cause of diseases classified elsewhere; Z16.12 Extended spectrum beta lactamase (ESBL) resistance; Z86.19 Personal history of other infectious and parasitic diseases
CPT/HCPCS: 36415; 80048; 81001; 85025; 87086; 87088; 96360; 96361; 99284; J2185; J7050; A4216

== ENCOUNTER 2018-12-24 07:32 | Emergency (ER) | payer MEDICARE, OTHER, SELFPAY ==
[2018-10-03 14:06] VITALS: BMI 24.0
[2018-12-24 07:33] VITALS: BP 152/94; PULSE 98; RESP 16; TEMP 36.8; O2SAT 96; BMI 24.4
--- NOTE | 2018-12-24 08:22 | ED.VISSUMM ---
- ER Visit Summary Date of Service: 12/24/18 Chief Complaint: dysuria History of Present Illness: The patient is a 73 F with history of recurrent UTIs, including ESBL E. coli who presents for 5 days of dysuria. Patient states she was seen at urgent care and diagnosed with a urinary tract infection. She was prescribed Macrobid and has had improvement of her symptoms, but continues to have dysuria and urinary frequency. She denies any fever, abdominal pain, nausea or vomiting, diarrhea, or any other complaints. No vaginal bleeding or discharge. Patient has required hospitalization for IV antibiotics due to resistant UTIs in the past. She is an appointment with Dr. Etienne tomorrow. Physical Examination: Vital signs: afebrile, hemodynamically stable, no hypoxia on room air General: well nourished, well developed, in no distress Skin: warm, dry, no rash, no pallor HEENT: normocephalic and atraumatic; PERRL, EOMI, moist mucous membranes Cardiovascular: regular rate and rhythm without murmurs, no peripheral edema, 2+ pulses all distal extremities Respiratory: No increased work of breathing, lungs are clear to auscultation bilaterally, no rales, rhonchi or wheezing Abdominal: Abdomen is soft, nontender with normoactive bowel sounds, no guarding or rebound, no masses, no suprapubic tenderness, no CVA tenderness MSK: Moves all extremities, no deformities, normal strength Neuro: Awake and alert, oriented ?4. No facial droop, sensation and motor function intact and symmetric Test Results: Abnormal Lab Results 12/24/18 08:36 Urine Color Yellow Urine Clarity Clear Urine pH 5.0 Ur Specific [place] 1.020 Urine Protein 15 H Urine Glucose (UA) Normal Urine Ketones Negative Urine Occult Blood 10 H Urine Nitrite Positive H Urine Bilirubin 1 H Urine Urobilinogen 4 H Ur Leukocyte Esterase 25 H Urine RBC 0 SEEN Urine WBC 0-5 SEEN Ur Squamous Epith Cells 0-5 SEEN Urine Bacteria 1+ Urine Mucus 0 SEEN Urine Yeast 1+ Medications Given Ceftriaxone Sodium (Rocephin) 1 gm in 50 mls @ 100 mls/hr IV X1 ONE Stop: 12/24/18 10:03 Emergency Department Course and Treatment: Urinalysis was performed and was consistent for positive nitrites and leuk esterase. No pyuria. Patient has been on antibiotics for 5 days now. Culture is pending. Patient was discussed with Dr. Etienne, who requested a dose of IV Rocephin, and then patient can keep her appointment with him tomorrow. Patient is very well-appearing and has no findings concerning for pyelonephritis or sepsis. Patient given the dose of antibiotic and discharged home. Treatment Plan: [] Disposition: [] Impression: Acute cystitis, history of ESBL E. coli UTI This note was generated with OdinOtvet dictation software. It may contain incorrect words, spelling, and punctuation that were not noted in review of the chart prior to signing ED Disposition - Plan for ED Patient: Disposition: Home or Assisted Living Instructions: ED UTI Cystitis Female Referrals: Rangel Santos MD [Primary Care Provider] - Sonny Etienne MD [STAFF PHYSICIAN] - Keep Dex appointment Additional Instructions: You were given an IV dose of Rocephin in the emergency department. Keep your appointment with Dr. Etienne tomorrow as scheduled. If you have any worsening of your condition or any new concerning symptoms, please return immediately to the emergency department for another evaluation.
[2018-12-24 08:44] LABS: Mucous, Urine 0 SEEN /hpf (<or=2+); Red Blood Cells-Urine 0 SEEN /hpf (0-5)
[2018-12-24 09:08] LABS: Color, Urine Yellow (Yellow); Glucose, Dipstick Normal (Normal); Ketone-Dipstick Negative (Negative); Leukocyte Esterase-Dipstick 25 /ul (Negative); Nitrite-Dipstick Positive (Negative); Occult Blood-Urine 10 /ul (Negative); Protein-Dipstick 15 mg/dl (Negative); Urine Clarity Clear (Clear); Urine Urobilinogen 4 mg/dl (Normal)
[2018-12-24 09:20] LABS: Urine Bilirubin Dipstick 1 mg/dL (Negative)
[2018-12-24 09:21] LABS: Bacteria 1+ /hpf (None Seen); Squamous Epithelial Cells - UA 0-5 SEEN /hpf (5-10); White Blood Cells 0-5 SEEN /hpf (0-5); Yeast-Urine 1+ /hpf (None Seen)
--- NOTE | 2018-12-24 09:32 | ED.RN ---
ANABELL PAGED AND CALLED BACK
[2018-12-24 10:19] VITALS: BP 152/77; PULSE 68; RESP 16; O2SAT 97
[2018-12-24] MEDS: Ceftriaxone 1 GM/50 ML BAG IV (10:27)
== END 2018-12-24 11:11 | disposition home or self-care (01) ==
PROVIDERS: Emergency Provider Emergency Medicine; Family Provider Family Medicine; PCP Family Medicine
DX: N30.00 Acute cystitis without hematuria (principal); Z87.440 Personal history of urinary (tract) infections
CPT/HCPCS: 81001; 87086; 87088; 96365; 99283; J7050; A4216

== ENCOUNTER → 2018-12-26 12:46 | Outpatient (CLI) | payer MEDICARE, OTHER, SELFPAY ==
[2018-12-24 07:33] VITALS: BMI 24.4
--- NOTE | 2018-12-26 12:52 | CT_ITS ---
STUDY: CT ABDOMEN AND PELVIS WITHOUT CONTRAST REASON FOR EXAM: Female, 73 years old. Bladder stone and recurrent UTI RADIATION DOSAGE (If Supplied By Facility): CTDIvol = ( 6.41 ) mGy, DLP = ( 312.13 ) mGycm TECHNIQUE: Transaxial images were obtained from the dome of the diaphragm to the symphysis pubis without oral contrast, and without intravenous contrast. Sagittal and coronal images were reconstructed. Individualized dose optimization techniques were used for this CT. COMPARISON: 08/05/2014 FINDINGS: The visualized lung bases are unremarkable. The visualized portions of the heart are within normal limits. Normal liver. There is non-visualization of the gallbladder, which may be secondary to either contraction or a prior cholecystectomy. 27 x 21 mm medial left splenic cyst. Normal pancreas. Normal bilateral adrenal glands. Normal right kidney. Normal left kidney. Normal visualized stomach. Normal small intestine. There are multiple colonic diverticula consistent with diverticulosis. There is non-visualization of the appendix. Normal abdominal aorta. Normal inferior vena cava. Normal retroperitoneum. Normal urinary bladder. Normal abdominal wall. Lumbar fusions and laminectomies. Bone harvesting from the left ilium. CT/Abdomen/Pelvis without Cont IMPRESSION: No evidence of bladder stone. No evidence of acute intestinal pathology or acute obstructive uropathy. Splenic cyst. Electronically Signed: Tyron Ashton MD at 5:47 EST Tel , Service support ,
== END ==
PROVIDERS: Family Provider Family Medicine; PCP Family Medicine; Referring Provider Urology; Visit Provider Urology
DX: N20.0 Calculus of kidney (principal); N21.0 Calculus in bladder
CPT/HCPCS: 74176

== ENCOUNTER → 2019-01-17 15:51 | Outpatient (CLI) | payer MEDICARE, OTHER, SELFPAY ==
[2018-12-24 07:33] VITALS: BMI 24.4
== END ==
PROVIDERS: Family Provider Family Medicine; PCP Family Medicine; Referring Provider Urology; Visit Provider Urology
DX: R30.0 Dysuria (principal)
CPT/HCPCS: 87077; 87086; 87088; 87186

== ENCOUNTER 2019-01-19 07:49 | Emergency (ER) | payer MEDICARE, OTHER, SELFPAY ==
[2019-01-19 07:50] VITALS: BP 141/79; PULSE 97; RESP 12; TEMP 37.2; O2SAT 95; BMI 24.1
[2019-01-19 08:03] VITALS: TEMP 37.2
--- NOTE | 2019-01-19 08:08 | ED.VISSUMM ---
- ER Visit Summary Date of Service: 01/19/19 Chief Complaint: UTI symptoms History of Present Illness: The patient is a 73 F with dysuria frequency and urgency for 3 days. She was started on ciprofloxacin per Dr. Etienne, her symptoms are getting somewhat better but they are still there. She in fact tells me today she felt a little bit worse than yesterday but not as bad as 3 days ago. She denies any flank pain fever or chills nausea or vomiting. She has no abdominal pain unless she pushes on her suprapubic area. Physical Examination: Not appear in acute distress. Moist mucous membranes, no obvious facial deformity No C-spine tenderness supple neck. Regular rate and rhythm without any obvious murmurs Clear lungs bilaterally speaking in full sentences without any obvious respiratory distress Abdomen soft with slight suprapubic pain. No guarding or rebound. No pain at McBurney's. No CVA tenderness. Benign abdomen. Moves all extremities without any difficulty or pain. Skin does not show any obvious rashes or lesions, no trauma. Alert oriented ?3 with no gross focal deficit Emergency Department Course and Treatment: Urine was cultured on January 17, 2 days ago. This showed enterococcus but no sensitivities. I believe it is reasonable to give the patient IV Rocephin in the ED and change her antibiotics to cefpodoxime. We will await the culture results. She appears well she does not meet any criteria for inpatient antibiotics. She has no fever or chills or flank pain or nausea or vomiting. If she worsens she needs to return and she understands this and agrees with the plan. Disposition: Discharge stable condition Impression: Urinary tract infection This note was generated with Prolify dictation software. It may contain incorrect words, spelling, and punctuation that were not noted in review of the chart prior to signing ED Disposition - Plan for ED Patient: Disposition: Home or Assisted Living Instructions: ED UTI Cystitis Female Prescriptions: Cefpodoxime Proxetil 200 mg PO BID #20 tab Referrals: Sonny Etienne MD [STAFF PHYSICIAN] -
--- NOTE | 2019-01-19 08:12 | ED.DCSUM_ITS ---
- ER Visit Summary Date of Service: 01/19/19 Chief Complaint: UTI symptoms History of Present Illness: The patient is a 73 F with dysuria frequency and urgency for 3 days. She was started on ciprofloxacin per Dr. Etienne, her symptoms are getting somewhat better but they are still there. She in fact tells me today she felt a little bit worse than yesterday but not as bad as 3 days ago. She denies any flank pain fever or chills nausea or vomiting. She has no abdominal pain unless she pushes on her suprapubic area. Physical Examination: Not appear in acute distress. Moist mucous membranes, no obvious facial deformity No C-spine tenderness supple neck. Regular rate and rhythm without any obvious murmurs Clear lungs bilaterally speaking in full sentences without any obvious respiratory distress Abdomen soft with slight suprapubic pain. No guarding or rebound. No pain at M cBurney's. No CVA tenderness. Benign abdomen. Moves all extremities without any difficulty or pain. Skin does not show any obvious rashes or lesions, no trauma. Alert oriented ?3 with no gross focal deficit Emergency Department Course and Treatment: Urine was cultured on January 17, 2 days ago. This showed enterococcus but no sensitivities. I believe it is reasonable to give the patient IV Rocephin in the ED and change her antibiotics to cefpodoxime. We will await the culture results. She appears well she does not meet any criteria for inpatient antibiotics. She has no fever or chills or flank pain or nausea or vomiting. If she worsens she needs to return and she understands this and agrees with the plan. Disposition: Discharge stable condition Impression: Urinary tract infection This note was generated with I-Works dictation software. It may contain incorrect words, spelling, and punctuation that were not noted in review of the chart prior to signing ED Disposition - Plan for ED Patient: Disposition: Home or Assisted Living Instructions: ED UTI Cystitis Female Prescriptions: Cefpodoxime Proxetil 200 mg PO BID #20 tab Referrals: Sonny Etienne MD [STAFF PHYSICIAN] -
[2019-01-19 08:29] LABS: Absolute Lymphocyte Count 2.11 X10^3/ul (0.83-4.51); Absolute Neutrophil Count 3.9 X10^3/uL (2.0-7.7); Basophil# 0.02 X10^3/uL; Basophil% 0.3 % (0-1); Eosinophil# 0.24 X10^3/uL; Eosinophils% 3.6 % (0-5); Hematocrit 46.2 % (37-47); Hemoglobin 14.9 g/dl (12.0-15.0); Lymphocyte # 2.11 X10^3/ul (4.0); Lymphocyte % 31.4 % (19-41); Mean Corp Hgb Conc 32.3 g/gl (32-36); Mean Corpuscular Hgb 30.5 pg (27.0-32.0); Mean Corpuscular Volume 94.5 fL (81-99); Mean Platelet Vol. 10.7 fl (6.2-12.0); Monocyte# 0.43 X10^3/uL; Monocyte% 6.4 % (0-10); Neutrophil # 3.93 X10^3/uL (2.7-7.7); Neutrophil % 58.3 % (47-70); POSITIVE COUNT NO; POSITIVE DIFFERENTIAL NO; POSITIVE MORPHOLOGY NO; Platelet Count 235 K/mm3 (150-450); RBC Distribution Width CV 12.9 % (11.6-14.6); RBC Distribution Width SD 44.2 fl (35.1-43.9); Red Blood Count 4.89 M/mm3 (4.2-5.4); White Blood Count 6.7 K/mm3 (4.4-11.0)
[2019-01-19] MEDS: Ceftriaxone 1 GM/50 ML BAG IV (08:38)
[2019-01-19 09:18] VITALS: TEMP 37.2
[2019-01-19 09:43] VITALS: BP 138/87; PULSE 69; RESP 18; O2SAT 99
== END 2019-01-19 09:46 | disposition home or self-care (01) ==
LOC: ED 08:24
PROVIDERS: Emergency Provider Emergency Medicine; Family Provider Family Medicine; PCP Family Medicine
DX: N39.0 Urinary tract infection, site not specified (principal); E78.00 Pure hypercholesterolemia, unspecified
CPT/HCPCS: 85025; 99283; J7050; A4216

== ENCOUNTER → 2019-01-30 10:24 | Outpatient (CLI) | payer MEDICARE, OTHER, SELFPAY ==
[2019-01-19 07:50] VITALS: BMI 24.1
== END ==
PROVIDERS: Family Provider Family Medicine; PCP Family Medicine; Referring Provider Urology; Visit Provider Urology
DX: R30.0 Dysuria (principal)
CPT/HCPCS: 87086; 87088

== ENCOUNTER → 2019-06-11 14:11 | Outpatient (CLI) | payer MEDICARE, OTHER, SELFPAY ==
[2019-06-11 16:50] LABS: Color, Urine Yellow (Yellow); Glucose, Dipstick Normal (Normal); Ketone-Dipstick 5 mg/dl (Negative); Leukocyte Esterase-Dipstick 500 /ul (Negative); Nitrite-Dipstick Positive (Negative); Occult Blood-Urine 50 /ul (Negative); Protein-Dipstick 15 mg/dl (Negative); Specific Gravity, Urine 1.025 (1.002-1.030); Urine Bilirubin Dipstick Negative (Negative); Urine Clarity Cloudy (Clear); Urine Urobilinogen Normal (Normal)
== END ==
PROVIDERS: Family Provider Family Medicine; PCP Family Medicine; Referring Provider Obstetrics & Gynecology; Visit Provider Obstetrics & Gynecology
DX: N39.0 Urinary tract infection, site not specified (principal)
CPT/HCPCS: 81002; 87086; 87088; 87186

== ENCOUNTER → 2019-10-29 09:25 | Outpatient (CLI) | payer MEDICARE, OTHER, SELFPAY ==
[2019-10-15 16:41] VITALS: BMI 23.0
--- NOTE | 2019-10-29 09:26 | STEWCON_ITS ---
Reason For Study: CHEST PAIN Stress Results Protocol: Emeka Protocol WITH DEFINITY Maximum Predicted HR: 144 bpm Target HR: 122 bpm % Maximum Predicted HR: 95 % DurationHeart Rate Stage (mm:ss) (bpm) BP Comment BASELINE 85 138/88 STAGE 1 3:00 118 138/84 STAGE 2 3:00 129 152/80 STAGE 3 0:53 137 / RECOVERY 97 140/704 CC DEFINITY FOR TEST Stress Duration: 6:53 mm:ss Maximum Stress HR: 137 bpm Baseline Echocardiogram Findings Stress Echo Wall motion Data Resting WM Intermediate WM Stress WM Interpretation Summary Exercise stress echo. 74-year-old lady with a history of hypertension, hyperlipidemia. Stress protocol: Resting EKG demonstrates normal sinus rhythm with a rate of 78 bpm normal intervals are noted resting blood pressures 138/88 mmHg. Patient exercised according to regular Emeka protocol for total duration of 6 minutes and 52 seconds. Patient completed 52 seconds to stage III of the Emeka protocol the maximum heart rate attained was 146 bpm which was 101% of maximum predicted heart rate the maximum workload was 9 metabolic equivalents. At rest there were no ST or T wave changes noted suggest ischemia peak exercise upsloping ST changes only were noted with no meet the criteria for ischemia. The resting blood pressure was 138/88 with a peak blood pressure 152/80 mmHg. No clinical angina was noted the test was terminated due to attainment of target heart rate. Stress echocardiographic images. Stress echocardiographic images were obtained with and without Definity enhancement. There was thickening of all kennedy and reduction of the ventricular cavity size with exercise. The resting ejection fraction was 55% with a peak ejection fraction of 65%. No new wall motion abnormalities were noted to suggest ischemia. Conclusion: Normal stress echocardiographic imaging with no evidence of ischemia. Good functional capacity Ordering Physician: Mark Leos Referring Physician: Mark Leos Performed By: Mara Fisher, RDCS, RVT
== END ==
PROVIDERS: Family Provider Family Medicine; PCP Family Medicine; Referring Provider Internal Medicine Cardiovascular Disease; Visit Provider Internal Medicine Cardiovascular Disease
DX: I10 Essential (primary) hypertension (principal); R07.9 Chest pain, unspecified
CPT/HCPCS: 93017; 93350; Q9957; A4216; C8928

== ENCOUNTER 2020-11-05 10:30 | Outpatient (RCR) | payer MEDICARE, OTHER, SELFPAY ==
--- NOTE | 2020-08-24 17:55 | HP.PTEVAL_ITS ---
Patient's Visit Information GREGG TEIXEIRA is a 74 year old F referred to Physical Therapy by Dr. Char Fischer MD with a diagnosis of BACK PAIN. Date of Evaluation: 08/24/20 Physical Therapist: Kendra Waldron PT, Cert MDT - Visit Plan Frequency: 2-3x /Week Duration: 4-6 Weeks Plan: POSTURE CORRECTION/STRENGTHENING, INSTRUCTION IN APPROPRIATE BODY MECHANICS AND ACTIVITY MODIFICATIONS. DLS STARTING WITH A NEUTRAL SPINE PROGRESSING ROM TOLERATED. ANTONIO LE ROM, STRETCHING AND STRENGTHENING. HEP INSTRUCTION. - Subjective Work/Leisure: [employer]. WORKING ABOUT 3-4 DAYS A WEEK. 7-8 HOUR WORK DAYS. Disability: NO. Present symptoms: ANTONIO LOW BACK PAIN AND ANTONIO LE PAIN ALL THE WAY DOWN HER LEGS TO HER TOES. LEFT > RIGHT. NO NUMBNESS OR TINGLING. CONSTANT PAIN IN HER LOW BACK BUT ANTONIO LE SX'S COME AND GO. Present since: COUPLE OF MONTHS. Pain Scale: WORST 5/10, LEAST 1/10. Currently: 02/13. Commenced as a result of: NO APPARENT REASON. Symptoms at onset: ANTONIO LOW BACK PAIN, L>R. 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 PROLONGED STANDING. Better: TYLONOL, GETTING MOVING IN THE MORNING. 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 Disturbed sleep: NO. Previous history/Previous treatment: L2-4 LAMINECTOMY AND F[address] CASAREZ 2 TIMES - DIFFERENT YEARS. ITZ'S WITH CASTILLO WITH THE LAST ONE BEING ABOUT 2014. NO CHIROPRACTOR. SOME PT AFTER FIRST BACK SURGERY BUT AFTER SECOND BACK SURGERY DR. OH DID NOT ORDER PT AND TOLD HER ALL HE WANTED HER TO DO WAS WALK. Treatment this episode: NONE. Coughing/sneezing/straining: NO. Gait: NORMAL. Difficulty initiating urinatin: NO. Accidents: NO. Unexplained weight loss: NO. Imaging: RECENT LOW BACK X-RAY: STUDY: X-RAY - LUMBAR SPINE. REASON FOR EXAM: Female, 74 years old. PAIN. TECHNIQUE: 4 view(s) of the lumbar spine were obtained. AP lateral. flexion extension. COMPARISON: None. . FINDINGS: There is an exaggerated lumbar lordosis. There is no substantial. scoliosis. There is a spinal fusion L2 L3 L4. There are bilateral spinal. rods. There is been laminectomy at the same level. The lateral view shows. slight retrolisthesis L3-L4. With flexion and extension views there is no. apparent instability. There is degenerative change with disc space. narrowing and endplate sclerosis spondylosis especially at the level of. L1-L2 L2-L3. . RAD/L/S Spine Min 4 Views. IMPRESSION: Flexion and extension views show no visualized instability, status post. spinal fusion L2-4.. . Electronically Signed: Kalani Aguila MD. at 2:46 EDT. PMH: UNREMARKABLE. OTHER: PATIENT REPORTS INCRASED PAIN TODAY. REPORTS THAT HER BACK PAIN IS THE WORST EVER TODAY AND SHE RELATES TO STANDING FOR A PROLONGED PERIOD OF TIME IN THE COLD YESTERDAY TO WATCH HER [employer] SOCCER GAME. TOOK TWO TYLONOL TODAY WHICH IS RARE FOR HER TO HAVE TO TAKE MEDICINE BUT IT DID HELP. - Objective Sitting/Standing Posture: POOR. SLOUCHED IN SITTING. INCREASED THORACIC CURVE AND INCREASED LORDOSIS. Active Correction of posture: BETTER. Other Observations: INDEP GAIT AND TRANSFERS. Motor deficit: ANTONIO LE STRENGTH GROSSLY 5/5 WITH MMT'ING. Sensory deficit: ANTONIO LE LIGHT TOUCH SENSATION APPEARS INTACT AND SYMMETRICAL. ROM deficit: MILD ANTONIO HS AND GASTROC SOLEUS TIGHTNESS. LEFT ANKLE DORSIFLEXION TIGHTER THAN RIGHT. Reflexes: NT. Dural Signs: NEGATIVE ANTONIO LE'S. Lumbar mvmt loss: flex - MIN. ext - EDWIGE. R SG - EDWIGE. L SG - MOD. PATIENT DENIES INCREASED PAIN WITH LUMBAR ROM TESTING ALL PLANES. Core strength: POOR. Palpation: NO ACUTE THORACIC, LUMBAR, BUTTOCK OR HIP PAIN WITH PALPATION TODAY. TREATMENT: NEUROMUSCULAR REEDUCATION - RETRAINING OF MVMT AND POSTURE FOR SITTING, LYING AND STANDING ACTIVITIES. - Goals Goal 1:: DECREASE C/O BACK PAIN AND ANTONIO LE SX'S. Goal Time Frame: 4-6 Weeks Goal 2:: IMPROVE LIFTING, STANDING AND TRAVEL FUNCTION Goal Time Frame: 4-6 Weeks Goal 3:: INSTRUCT IN PROPHYLAXIS Goal Time Frame: 4-6 Weeks - Anticipated Interventions Patient/Client Instruction: Educate patient on: Condition, Plan of Care, Risk Factors, Benefits of Fitness Program For the Purpose of:: To improve self management Therapeutic Exercise to Include: Strength training, Body mechanics, Postural training, Flexibilty training, Neuromotor development, In an aquatic setting, Dynamic Lumbar Stabilization For the Purpose of:: To decrease pain, To increase ROM, To improve muscle performance and motor function, To increase tolerance to activity/condition/position, To improve ability of physical actions for home/community/work/leisure Thank you for the opportunity to evaluate your patient. For Medicare and Medicare HMO plans, please review the plan of care and approve it. It will need to be FAXED BACK to us at [phone] for Medicare purposes. For Medicare only, by signing this I certify the plan of care. Please let me know if there are questions or concerns regarding this plan of care. Physician Signature: Date:
--- NOTE | 2020-11-05 11:04 | HP.PTDCSUM ---
It has been my pleasure to treat GREGG TEIXEIRA referred by Dr. Char Fischer MD, with the diagnosis of BACK PAIN for a total of 19 visit(s). Discharge Date: 11/05/20 Please see the following information for a summary of their discharge status. Subjective: PATIENT REPORTS SHE HAS BEEN DOING WONDERFUL. STATES SHE FEELS SHE NEEDS A BREAK FROM THERAPY THOUGH. 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 HATES TO DRIVE IN THE WINTER AND DOES NOT WANT TO COME OVER THE WINTER. PATIENT REPORTS BEING VERY HAPPY WITH THERAPY. LB Pain Intensity (Out of 10): 1 LLE Pain Intensity (Out of 10): 0 % Improvement: 100 Objective/Function: PATIENT WAS SEEN TODAY FOR RE-ASSESSMENT OF PROGRESS TOWARD THE SET PT GOALS AND THE NEED FOR FURTHER PHYSICAL THERAPY VS READINESS FOR DISCHARGE. UPON EXAM TODAY: ALL GOALS MET. PATIENT IS INDEP WITH A POOL PROGRAM AND WILL RESUME INDEP POOL EX ON HER OWN WHEN SHE IS READY. THIS PT ENCOURAGED COMPLIANCE WITH HEP AND RESUMPTIOM OF POOL EX'S SOONER RATHER THAN LATER IF SYMPTOMS START TO INCREASE. PATIENT UNDERSTANDS THE CONSEQUENCES OF TAKING A BREAK FROM EX IN TERMS OF STRENGTH. ADVISED THAT WALKING CONTINUES TO BE A GOOD FORM OF EX FOR HER. Goal 1:: DECREASE C/O BACK PAIN AND ANTONIO LE SX'S. Goal Progress: Goal Met Goal 2:: IMPROVE LIFTING, STANDING AND TRAVEL FUNCTION Goal Progress: Goal Met Goal 3:: INSTRUCT IN PROPHYLAXIS Goal Progress: Goal Met Plan: D/C. If there are questions or concerns regarding this patient's physical therapy, please feel free to call me at [phone]. Thank you for the referral of this patient. Sincerely, Kendra Waldron, PT, Cert MDT
== END 2020-11-05 19:00 | disposition home or self-care (01) ==
LOC: PT 10:30
PROVIDERS: PCP Family Medicine; Referring Provider Orthopaedic Surgery; Visit Provider Orthopaedic Surgery
DX: M54.5 Low back pain (principal); Z98.1 Arthrodesis status
CPT/HCPCS: 97112; 97113; 97162; 97164

== ENCOUNTER → 2021-01-21 | Outpatient (CLI) | payer MEDICARE, OTHER, SELFPAY ==
[2021-01-21 16:57] LABS: Mucous, Urine 0 SEEN /hpf (<or=2+); Red Blood Cells-Urine 0 SEEN /hpf (0-5)
[2021-01-21 17:22] LABS: Color, Urine Yellow (Yellow); Glucose, Dipstick Normal (Normal); Ketone-Dipstick 5 mg/dl (Negative); Leukocyte Esterase-Dipstick Negative /ul (Negative); Nitrite-Dipstick Positive (Negative); Occult Blood-Urine 10 /ul (Negative); Protein-Dipstick Negative (Negative); Specific Gravity, Urine 1.025 (1.002-1.030); Urine Bilirubin Dipstick Negative (Negative); Urine Clarity Turbid (Clear); Urine Urobilinogen Normal (Normal)
[2021-01-21 17:36] LABS: Squamous Epithelial Cells - UA 0-5 SEEN /hpf (5-10); White Blood Cells 0-5 SEEN /hpf (0-5)
[2021-01-21 17:37] LABS: Bacteria 3+ /hpf (None Seen)
== END | disposition home or self-care (01) ==
PROVIDERS: Visit Provider Nurse Practitioner Adult Health
DX: N30.21 Other chronic cystitis with hematuria (principal)
CPT/HCPCS: 81001; 87077; 87086; 87088; 87186

== ENCOUNTER → 2022-03-04 | Outpatient (CLI) | payer MEDICARE, OTHER, SELFPAY ==
[2022-03-04 13:47] LABS: Erythrocyte Sedimentation Rate 5 mm/hr (0-30)
[2022-03-04 13:49] LABS: Absolute Lymphocyte Count 1.98 X10^3/uL (0.83-4.51); Absolute Neutrophil Count 5.4 X10^3/uL (2.0-7.7); Basophil# 0.03 X10^3/uL; Basophil% 0.4 % (0-1); Eosinophil# 0.12 X10^3/uL; Eosinophils% 1.5 % (0-5); Hematocrit 44.8 % (37-47); Hemoglobin 14.5 g/dL (12.0-15.0); Lymphocyte # 1.98 X10^3/ul (0.83-4.51); Lymphocyte % 24.9 % (19-41); Mean Corp Hgb Conc 32.4 g/dL (32-36); Mean Corpuscular Hgb 31.2 pg (27.0-32.0); Mean Corpuscular Volume 96.3 fL (81-99); Monocyte# 0.42 X10^3/uL; Monocyte% 5.3 % (0-10); NRBC Flagged by Analyzer 0 % (0-5); Neutrophil # 5.39 X10^3/uL (2.7-7.7); Neutrophil % 67.6 % (47-70); Platelet Count 261 K/mm3 (150-450); RBC Distribution Width CV 12.3 % (11.6-14.6); RBC Distribution Width SD 43.8 fl (35.1-43.9); Red Blood Count 4.65 M/mm3 (4.2-5.4)
[2022-03-04 14:19] LABS: CRP < 2.90 mg/L (0.0-3.0); LDH 193 U/L (84-246)
[2022-03-07 15:10] LABS: Anti-Centromere B Ab <0.2 AI (0.0-0.9); Anti-Chromatin <0.2 AI (0.0-0.9); Anti-Jo <0.2 AI (0.0-0.9); Anti-Scleroderma-70 AB <0.2 AI (0.0-0.9); RNP Ab 0.3 AI (0.0-0.9); SJOGREN'S Anti-SS-A test < 0.2 AI (0.0-0.9); SJOGREN'S Anti-SS-B test < 0.2 AI (0.0-0.9); Smith Ab <0.2 AI (0.0-0.9)
[2022-03-07 16:04] LABS: Anti-dsDNA Ab <1 IU/mL (0-9)
[2022-03-11 02:07] LABS: Cytoplasmic Ab (C-ANCA) <1:20 titer (Neg:<1:20); Endomysial Antibody IgA Negative (Negative); Immunoglobulin A 225 mg/dL (64-422); Immunoglobulin E 30 IU/mL (6-495); Immunoglobulin G 918 mg/dL (586-1602); Immunoglobulin M 42 mg/dL (26-217)
[2022-03-11 08:40] LABS: Perinuclear Ab (P-ANCA) <1:20 titer (Neg:<1:20); t-Transglutaminase IgA <2 U/mL (0-3)
== END | disposition home or self-care (01) ==
PROVIDERS: PCP Family Medicine; Referring Provider Internal Medicine Gastroenterology; Visit Provider Internal Medicine Gastroenterology
DX: R05.9 Cough, unspecified (principal); K21.9 Gastro-esophageal reflux disease without esophagitis
CPT/HCPCS: 36415; 82784; 82785; 83516; 83615; 85025; 85652; 86140; 86225; 86235; 86255; 86256

== ENCOUNTER 2022-04-12 12:33 | Day surgery (SDC) | payer MEDICARE, OTHER, SELFPAY ==
--- NOTE | 2022-04-12 | IMM_PTH ---
PATIENT: GREGG TEIXEIRA LOC: EN U#:[id number] AGE/SX: 76/F ROOM: RE04/12/[address]: Dr. Zane Granado DO : 1945 BED: DIS: 04/12/2022 SPEC #: [id number] RECD: 04/14/22 11:58 STATUS: LETICIA GLORIA #: [id number] KIANNA: 04/12/22 00:[address]: Zane Granado DEPT: IMMUNOHISTOCHEMISTRY RECD BY: Shaila Bowser ENTERED: 04/14/22 12:01 SP TYPE: IMMUNO OTHR DR: Dr. Rangel Santos MD Tissues: A - Esophageal mucous membrane Procedures: P53 (initial) KI-67 (add) PHYSICIAN & [place] [id number] SPECIMEN INFORMATION: Tissue Source: A ? Distal esophagus biopsy Clinical Info: GERD, cough Specimen Number: [id number] CPT code: 36229, 40817 METHODOLOGY: Deparaffinized sections of prefer/formalin-fixed tissue or PAP/DQ stained slides are incubated with monoclonal/polyclonal antibodies/oligonucleotide probes. Localization is made via biotin free immunoperoxidase method. Appropriate controls are performed and reacted as expected. Results on target cell population are indicated in the following table: RESULTS: ANTIBODY / CLONE RESULT Block A P53 (DO-7) negative Ki-67 (30-9) positive, very low These tests were developed and their performance characteristics determined by [facility]. They may not have been cleared or approved by the U.S. Food and Drug Administration. The FDA has determined that such clearance or approval is not necessary. The above immunohistochemical/dualISH markers are ordered and reviewed by the Pathologist. INTERPRETATION: A. Distal esophagus, biopsy: Negative for dysplasia. SARA:neeru 04/15/2022
--- NOTE | 2022-04-12 12:44 | HP.PCM_ITS ---
History and Physical Date of Admission: 04/12/22 Details: GREGG TEIXEIRA, is a 76 F who presents to the office today for Initial consult. Gregg established with this clinic 03.04.22 with referral from her ENT for management of GERD. Symptoms includes frequent cleaning of her throat and coughing since August 2021 with varying intensity by day. Heartburn occurs minimally and uses Gaviscon; does not remember last time she needed to take this. She was prescribed omeprazole 40mg QD, she does not feel this has been helpful. ENT performed laryngoscopy 01.01.22 finding severe edema of the interarytenoid space. All other structures were normal. She has been using saline nasal spray for periodic nasal congestion; denies regular allergy medica tion. Feels that drinking water has been helpful. Denies abdominal pain, appetite changes, weight change, swallowing difficulty. Reports an EGD many years ago and she reports normal results. 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 Son is a family doctor working with [employer]. Barium Swallow 05.23.17 barium tablet was trapped at GE junction. Upper GI series 03.19.18 finding small sliding hiatal hernia; no signs of gastroesophageal reflux. CT abd/pel 12.26.18 found multiple colonic diverticula consistent with diverticulosis; previous cholecystectomy; splenic cyst [id number]; History of lumbar fusions, laminectomies and bone harvesting from the left ilium. ROS Const Constitutional: No fatigue, malaise, night sweats, weight change, sleep problems, abnormal sleep pattern or change in appetite ENT ENT: No difficulty swallowing, hoarseness or sore throat Cardio Cardiology: No chest pain at rest Gastro GI: No abdominal pain, belching, bloating, change in bowel habits, change in stool character, coffee ground emesis, constipation, cramping, diarrhea, heartburn, difficulty swallowing, feeling full early, excessive flatus, incontinent of stools, Vomiting blood/hematemesis, Blood in stool, loose stools, Black,tarry stools, nausea/dyspepsia, pain with swallowing, vomiting or other Musc Musculoskeletal: No joint pain Skin Skin: No yellowing of the eye or itchy eyes Neuro Neurology: No behavioral changes Psych Psychiatric: No abnormal sleep pattern, No anxiety, No behavioral changes, No change in appetite and No depression Endo Endocrine: No fatigue or weight change Aller/Imm Allergy/Immunologic: No itchy eyes Jose/Lymp Hematologic/Lymphatic: No easy bleeding or easy bruising Exam Const General: cooperative and comfortable Nutritional Appearance: average body habitus and well nourished [facility] Head: normal to inspection Ears: hearing grossly normal bilaterally Nose: external nose normal Face and sinus: normal facial exam Mouth: oral mucosae normal Throat: posterior oropharynx normal Eyes General: appearance normal, both eyes and all related structures Neck Neck: normal visual inspection Chest Chest palpation & inspection: normal inspection of the chest and normal palpation of entire chest wall Resp Effort & Inspection: normal respiratory effort Auscultation: Bilateral: Clear to Auscultation Cardio Palpation: normal PMI Rate: regular rate Rhythm: regular rhythm GI Inspection: normal to inspection Auscultation: normal bowel sounds Percussion: normal to percussion Palpation: no hepatosplenomegaly Skin General: no rashes or lesions noted Neuro General: patient alert Extrem General: normal to inspection Psych Affect: normal affect Quality Reporting Tobacco Screening ([facility] 138) Smoking Status: Never smoker Assessment and Plan Assessment and Plan (1) GERD (gastroesophageal reflux disease): Orders: Orders: CBC W/Diff, Automated 03/04/22 (2) Cough: Status: Acute Orders: Orders: CRP 03/04/22 LDH 03/04/22 CBC W/Diff, Automated 03/04/22 Erythrocyte Sed Rate 03/04/22 [place] Comprehensive Panel 03/04/22 ANCA 03/04/22 Celiac Disease Profile 03/04/22 Immunoglobulins G/A/M/E 03/04/22 Plan - Dr. Degroot Friend, DO: We will perform biochemical testing for eosinophilic disease and She will also get an upper endoscopy with Zuniga pH. She possibly is having postnasal drip so we put her on prednisone and azithromycin. Plan Details Other Medications: New: azithromycin (Zithromax Z-Ken) 250 mg PO DAILY 7 days 7 tabs 0RF prednisone 20 mg PO DAILY 14 tabs 0RF I have re-examined the patient. There are no clinical changes since date of exam.
[2022-04-12 13:12] VITALS: BP 176/82; PULSE 90; RESP 16; TEMP 36.8; O2SAT 96; BMI 24.7
[2022-04-12] MEDS: Lactated Ringers 1,000 ML 15 ML IV (13:15)
--- NOTE | 2022-04-12 13:45 | EGD_PTH ---
PATIENT: GREGG TEIXEIRA LOC: EN U#:[id number] AGE/SX: 76/F ROOM: RE04/12/[address]: Dr. Zane Granado DO : 1945 BED: DIS: 04/12/2022 SPEC #: [id number] RECD: 04/12/22 16:03 STATUS: LETICIA GLORIA #: [id number] KIANNA: 04/12/22 13:[address]: Zane Granado DEPT: SURGICAL PATHOLOGY RECD BY: Josephine Arias ENTERED: 04/13/22 08:24 SP TYPE: EGD BIOPSY MINDA DR: Dr. Rangel Santos MD Tissues: A - Esophagus, NOS B - Esophagus, NOS Procedures: Special Stain Group II Surgery Specimen Level IV Alcian Blue/PAS (control) HEADER OPERATION: EGD with biopsy and dilation (MAC), PH probe placement PRE-OP DIAGNOSIS: GERD, cough TISSUE SUBMITTED: A ? Distal esophagus biopsy, B ? Proximal esophagus biopsy MICROSCOPIC DIAGNOSIS A. 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 Chronic inflammation. Negative for dysplasia. See comment. B. Proximal esophagus, biopsy: Fragments of gastroesophageal mucosa with mild chronic inflammation. Intestinal metaplasia (goblet cell metaplasia) not identified. See comment. SJ:rg 04/14/2022 COMMENT A. Alcian blue/PAS stain with matched control is used in the evaluation of the specimen. Immunohistochemistry ([id number]) for P53 and Ki-67 will be performed and results will be reported separately. B. Alcian blue/PAS stain with matched control is used in the evaluation of the specimen. MICROSCOPIC DESCRIPTION Slides are reviewed. GROSS DESCRIPTION A - Received in fixative is one container labeled with the patient's name and designated distal esophagus biopsy. The specimen consists of multiple irregular fragments of light thompson soft tissue that in aggregate measure 0.8 x 0.5 x 0.1 cm. The specimen is totally submitted in one cassette. B - Received in fixative is one container labeled with the patient's name and designated proximal esophagus biopsy. The specimen consists of two irregular fragments of light thompson soft tissue that in aggregate measure 0.6 x 0.3 x 0.1 cm. The specimen is totally submitted in one cassette. / SARA:neeru 04/13/2022 TC:5 CPT: 65341 x2, 54397 x2
[2022-04-12 14:15] VITALS: BP 132/92; BP 176/82; PULSE 91; RESP 16; TEMP 36.6; O2SAT 96
[2022-04-12 14:20] VITALS: BP 133/74; BP 176/82; PULSE 88; RESP 16; O2SAT 93
--- NOTE | 2022-04-12 14:22 | OP.EGD_ITS ---
Patient Name: Norma Ferris Procedure Date: 04/12/2022 1:50 PM Date of : 1945 Age: 76 Procedure: Upper GI endoscopy Indications: Suspected non-erosive esophageal reflux Providers: Zane Granado DO Medicines: Monitored Anesthesia Care Patient Profile: This is a 76 year old female. Refer to note in patient chart for documentation of history and physical. Patient has symptoms of chronic cough. Complications: No immediate complications. Procedure: Pre-Anesthesia Assessment: - Prior to the procedure, a History and Physical was performed, and patient medications and allergies were reviewed. The risks and benefits of the procedure and the sedation options and risks were discussed with the patient. All questions were answered and informed consent was obtained. Patient identification and proposed procedure were verified by the physician in the pre-procedure area. Mental Status Examination: alert and oriented. Airway Examination: normal oropharyngeal airway and neck mobility. Respiratory Examination: clear to auscultation. CV Examination: normal. Prophylactic Antibiotics: The patient does not require prophylactic antibiotics. Prior Anticoagulants: The patient has taken no previous anticoagulant or antiplatelet agents. ASA Grade Assessment: II - A patient with mild systemic disease. After reviewing the risks and benefits, the patient was deemed in satisfactory condition to undergo the procedure. The anesthesia plan was to use moderate sedation / analgesia (conscious sedation). Immediately prior to administration of medications, the patient was re-assessed for adequacy to receive sedatives. The heart rate, respiratory rate, oxygen saturations, blood pressure, adequacy of pulmonary ventilation, and response to care were monitored throughout the procedure. The physical status of the patient was re-assessed after the procedure. After obtaining informed consent, the endoscope was passed under direct vision. Throughout the procedure, the patient's blood pressure, pulse, and oxygen saturations were monitored continuously. The gastroscope was introduced through the mouth, and advanced to the second part of duodenum. The upper GI endoscopy was accomplished without difficulty. The patient tolerated the procedure well. Scope In: 1:56:59 PM Scope Out: 2:12:02 PM Total Procedure Duration Time 0 hours 15 minutes 3 seconds Findings: LA Grade A (one or more mucosal breaks less than 5 mm, not extending between tops of 2 mucosal folds) esophagitis with no bleeding was found 35 to 36 cm from the incisors. Biopsies were taken with a cold forceps for histology. Verification of patient identification for the specimen was done. Estimated blood loss was minimal. A moderate Schatzki ring was found in the lower third of the esophagus. A guidewire was placed and the scope was withdrawn. Dilation was performed with a Savary dilator with no resistance at 51 Fr. The dilation site was examined following endoscope reinsertion and showed complete resolution of luminal narrowing. Estimated blood loss was minimal. 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 Biopsies were taken with a cold forceps for histology. Verification of patient identification for the specimen was done. The TYSON capsule with delivery system was introduced through the mouth and advanced into the esophagus, such that the TYSON pH capsule was positioned 40 cm from the incisors, which was 6 cm proximal to the GE junction. Suction was applied to the well of the TYSON pH capsule to suck in the adjacent mucosa of the esophagus using the external vacuum pump set at a minimum vacuum pressure of 550 mmHg for 30 seconds. The TYSON pH capsule was then deployed by depressing the plunger on top of the handle to advance the locking pin into the mucosa, thereby attaching the capsule to the esophagus. The plunger was then rotated a quarter turn clockwise to release the capsule from the delivery system. The delivery system was then withdrawn. Endoscopy was utilized for probe placement and diagnostic evaluation. A small hiatal hernia was present. The first portion of the duodenum was normal. Impression: - LA Grade A reflux esophagitis. Biopsied. - Moderate Schatzki ring. Dilated. - Ectopic gastric mucosa in the upper third of the esophagus. Biopsied. - Small hiatal hernia. - Normal first portion of the duodenum. - The TYSON pH capsule was positioned 40 cm from the incisors, which was 6 cm proximal to the GE junction. Recommendation: - Discharge patient to home. - Resume previous diet. - Continue present medications. - Await pathology results. Procedure Code(s): --- Professional --- 02522, Esophagogastroduodenoscopy, flexible, transoral; with insertion of guide wire followed by passage of dilator(s) through esophagus over guide wire 81959, 59,51, Esophagogastroduodenoscopy, flexible, transoral; with biopsy, single or multiple CPT copyright 2017 [employer]. All rights reserved. The codes documented in this report are preliminary and upon motor vehicle emissions inspector review may be revised to meet current compliance requirements. Zane Granado DO 04/12/2022 2:21:54 PM This report has been signed electronically. Number of Addenda: 1 Note Initiated On: 04/12/2022 1:50 PM Addendum Number: 1 Addendum Date: 08/09/2022 6:28:05 AM MAC was used as sedation for this procedure. Zane Granado DO 08/09/2022 6:28:12 AM This report has been signed electronically.
--- NOTE | 2022-04-12 14:23 | OP.CCLET_ITS ---
08/09/2022 Rangel Santos MD Re : Upper GI endoscopy procedure for Norma Ferris Dear Dr. Santos This procedure was performed on Tuesday, April 12, 2022. My impressions and recommendations are as follows: Impressions : - LA Grade A reflux esophagitis. Biopsied. - Moderate Schatzki ring. Dilated. - Ectopic gastric mucosa in the upper third of the esophagus. Biopsied. - Small hiatal hernia. - Normal first portion of the duodenum. - The TYSON pH capsule was positioned 40 cm from the incisors, which was 6 cm proximal to the GE junction. Recommendations : - Discharge patient to home. - Resume previous diet. - Continue present medications. - Await pathology results. My findings are described in the full procedure note, which is enclosed. If I can be of further assistance, please feel free to contact me at . Sincerely, Zane Friend, 04/12/2022 2:21:54 PM This report has been signed electronically.
[2022-04-12 14:25] VITALS: BP 137/98; BP 176/82; PULSE 73; RESP 16; O2SAT 95
[2022-04-12 14:30] VITALS: BP 151/78; BP 176/82; PULSE 62; RESP 16; TEMP 36.4; O2SAT 97
[2022-04-12 14:58] VITALS: BP 176/82
--- NOTE | 2022-05-05 07:35 | PCM.HP.BLA ---
History and Physical Study: 48-hour?Zuniga?pH?capsule was placed on esophagus during EGD on 04/12/22 ? Study Findings?? ? 48-hour overview: episodes upright>supine ? Using data from the worst of the two days, acid exposure time is 4.6%.?Percent acid exposure time?is the single parameter which has been shown to best correlate with endoscopic damage. Normal is <4.4% on the worst day, therefore this result is?normal.? ? The?DeMeester Score?(normal is <14.72) on the worst of the two days is 15.5 which is abnormal.?The DeMeester Score is a method of adding weights to six common?pH?measurement parameters, and presenting esophageal acid exposure data as a cumulative score.? ? Symptom Index (SI)?>50% is significant (it indicates that >50% of the observed symptoms were associated with reflux).? In this study, the SI for heartburn is 0% which is not significant. SI for regurgitation is 6.8%. ? Symptom Association Probability (SAP)?helps to determine if there is a true correlation between symptoms and reflux. SAP >95% indicates a likely correlation.? In this study, the SAP is 0% which?does not indicate a true correlation.?SAP for regurgitation is 88.5%. ? Interpretation ? The DeMeester Score for Day 2 is abnormal, but all other scores are normal/insignificant.
== END 2022-04-12 15:00 | disposition home or self-care (01) ==
LOC: EN 12:34 → AC 12:35
PROVIDERS: PCP Family Medicine; Referring Provider Family Medicine; Visit Provider Internal Medicine Gastroenterology
PROC: 0DJ08ZZ Inspection of Upper Intestinal Tract, Via Natural or Artificial Opening Endoscopic (ICD-10-PCS; CPT 43235; principal; 2022-04-12 13:40)
DX: K21.00 Gastro-esophageal reflux disease with esophagitis, without bleeding (principal); K22.2 Esophageal obstruction; K44.9 Diaphragmatic hernia without obstruction or gangrene; K22.70 Barrett's esophagus without dysplasia
CPT/HCPCS: 43248; 43239; 88305; 88313; 88341; 88342; J7120; C1769

== ENCOUNTER → 2022-05-11 | Outpatient (CLI) | payer MEDICARE, OTHER, SELFPAY ==
--- NOTE | 2022-05-11 08:11 | RAD_ITS ---
STUDY: X-RAY - ESOPHAGUS (BARIUM SWALLOW) WITH FLUOROSCOPY REASON FOR EXAM: Female, 76 years old. Chronic throat clearing TECHNIQUE: 28 view(s) of the esophagus were obtained following swallowing of barium. FLUOROSCOPY TIME (if supplied): (25 seconds) minutes/seconds COMPARISON: Comparison is made with prior study dated 05/23/2017. FINDINGS: There is no demonstrated esophageal foreign body. There is no demonstrated stricture or mucosal abnormality. Small hiatal hernia without gastroesophageal reflux. The patient ingested a 12 mm tablet of barium without any difficulty. There is atherosclerotic tortuosity of the aortic arch and descending thoracic aorta. Normal visualized pulmonary parenchyma. Normal visualized osseous structures of the thorax. RAD/Esophagus Dual Contrast IMPRESSION: Small sliding hernia without gastroesophageal reflux. Electronically Signed: Azam Mir MD at 9:22 EDT ,
== END | disposition home or self-care (01) ==
PROVIDERS: PCP Family Medicine; Referring Provider Nurse Practitioner Adult Health; Visit Provider Nurse Practitioner Adult Health
DX: R09.89 Other specified symptoms and signs involving the circulatory and respiratory systems (principal); K44.9 Diaphragmatic hernia without obstruction or gangrene
CPT/HCPCS: 74221

== ENCOUNTER 2023-05-12 19:56 | Emergency (ER) | payer MEDICARE, OTHER, SELFPAY ==
[2023-05-12 19:57] VITALS: BP 170/98; PULSE 100; RESP 18; TEMP 36.4; O2SAT 95; BMI 24.7
--- NOTE | 2023-05-12 20:06 | EDS_ITS ---
HPI History of Present Illness Chief Complaint: Complaint Informant: patient Onset/Context/Timing Onset: Today Context: Gradual Onset Timing: Continuous Quality: Burning Location: Suprapubic Worsened by: Nothing Relieved by: Nothing Narrative Narrative: Patient presents with dysuria, urgency, and urinary frequency that began today. Patient states that has gradually gotten worse throughout the day. Patient states she has a history of frequent urinary tract infections and this feels similar to prior urinary tract infections. Patient states she has some burning in the suprapubic area. Patient states nothing makes it worse and nothing makes it better. Patient denies any fevers or chills. Patient denies any nausea or vomiting. [facility] Medical History Alcohol use Cardiology follow-up encounter Chronic back pain Cystitis DDD (degenerative disc disease), lumbar Easy bruising Essential (primary) hypertension GERD (gastroesophageal reflux disease) History of echocardiogram History of steroid therapy History of stress test Hx of migraines Hyperlipidemia Hypertension Infection due to ESBL-producing Escherichia coli Non-smoker PONV (postoperative nausea and vomiting) Post-menopausal Spinal stenosis UTI (urinary tract infection) Home Medications ascorbic acid (vitamin C) 1,000 mg capsule,extended release 1 cap PO QHS 04/07/22 [History Last Taken Unknown] methenamine hippurate 1 gram tablet 1 g PO QHS urinary tract health 04/07/22 [History Last Taken Unknown] sucralfate 100 mg/mL oral suspension 10 ml PO QACHS #1,200 mL 05/05/22 [Rx Last Taken Unknown] lansoprazole 30 mg capsule,delayed release 30 mg PO QAM #90 caps 05/26/22 [Rx Last Taken Unknown] cephalexin 500 mg capsule 500 mg PO Q6 #20 CAPSULES 05/12/23 [Rx Last Taken Unknown] Allergy/AdvReac Type Severity Reaction Status Date / Time No Known Allergies Allergy Verified 05/12/23 19:57 Family History Mother Heart disease Father Heart disease Brother Heart disease CAD (coronary artery disease) Surgical History History of appendectomy History of back surgery History of hysterectomy History of laparoscopic cholecystectomy S/P subdural hematoma evacuation Social History Smoking Status: Never smoker ROS ROS ED Constitutional Constitutional ED: Denies chills or fever(s) Eyes Eyes: Denies blurry vision or change in vision ENT ENT ED: Denies rhinorrhea or sore throat Cardiovascular Cardiovascular: Denies chest pain or palpitations Respiratory/Chest Respiratory/Chest: Denies cough or dyspnea Gastrointestinal Gastrointestinal: Denies nausea or vomiting Genitourinary Genitourinary ED: Reports dysuria and urinary frequency Musculoskeletal Musculoskeletal: Denies back pain or neck pain Integumentary Denies abscess or rash Neurologic Neurologic: Denies headache(s) or weakness Allergic/Immunologic Allergic/Immunologic ED: Denies mouth swelling or urticaria EXAM Physical Exam Const Vital Signs: 05/12/23 19:57 Temperature 97.5 F L Temperature Source Temporal Pulse Rate 100 Respiratory Rate 18 Blood Pressure 170/98 H Blood Pressure Mean 122 Pulse Ox 95 Positive well nourished and well developed General Appearance ED: well developed and NAD HEENT Reports moist mucous membranes Neck supple and no JVD Resp normal respiratory effort and clear to auscultation bilaterally Cardio regular rate, regular rhythm and no murmurs GI normal to inspection, nondistended, normoactive bowel sounds Palpation: soft and tender suprapubic (Mild) Extremity normal to inspection General Extremety ED: Negative for edema or tenderness General Extremity: Negative for edema Neuro oriented x3, CN's II-XII intact bilaterally and no sensory deficits noted Sensorium / Orientation: alert Motor Exam: strength 5/5 throughout Psych mental status grossly normal Skin no rashes or lesions noted MDM MDM MDM Narrative Medical decision making narrative: Differential diagnosis includes urinary tract infection, gastroenteritis, and urinary frequency. Urinalysis will be obtained to assess for urinary tract infection. Lab Data Lab results narrative: Urinalysis was reviewed. Leukocyte Estrace was 500 with 25-50 white blood cells. There is rare bacteria noted. Occult blood was 150 with 10-25 red blood cells. Labs: Laboratory Results - last 24 hr 05/12/23 20:20 Urine Color Yellow Urine Clarity Sl. Cloudy Urine pH 6.0 Ur Specific Loraine 1.010 Urine Protein Negative Urine Glucose (UA) Normal Urine Ketones Negative Urine Occult Blood 150 H Urine Nitrite Negative Urine Bilirubin Negative Urine Urobilinogen Normal Ur Leukocyte Esterase 500 H Urine RBC 10-25 SEEN Urine WBC 25-50 SEEN Ur Squamous Epith Cells 0-5 SEEN Amorphous Sediment 1+ URATE Urine Bacteria RARE Urine Mucus 0 SEEN Treatment and Re-Evaluation :: Patient was given a dose of Pyridium here. Patient was advised of her findings. Patient was given a dose of Bactrim. Patient was given a prescription for Keflex due to the potential interaction between Bactrim and methamphetamine. Patient was instructed to drink plenty of fluids. Patient was instructed to follow-up with her primary care physician in 5 to 7 days. Patient understood and was agreeable with the plan. All questions were answered. Discharge Plan Triage Chief Complaint: Complaint ED Provider: Alexx Rapp Dx/Rx/DC Orders Clinical Impression: Urinary tract infection Instructions: ED Cystitis Female Adult Prescriptions: New cephalexin [cephalexin] 500 mg capsule 500 mg PO Q6 Qty: 20 0RF No Action sucralfate 100 mg/mL suspension 10 ml PO QACHS Qty: 1200 0RF methenamine hippurate 1 gram tablet 1 g PO QHS Vitamin C 1,000 mg Capsule, Extended Release 1 cap PO QHS lansoprazole 30 mg capsule,delayed release(DR/EC) 30 mg PO QAM Qty: 90 3RF Primary Care Provider: Rangel Santos Referrals: Rangel Santos MD [Primary Care Provider] - 3-5 Days Disposition Disposition: Home, Self Care
[2023-05-12 20:41] LABS: Mucous, Urine 0 SEEN /hpf (<or=2+)
[2023-05-12] MEDS: Phenazopyridine 95 MG Tablet 190 MG PO (21:07)
[2023-05-12 21:09] LABS: Color, Urine Yellow (Yellow); Glucose, Dipstick Normal (Normal); Ketone-Dipstick Negative (Negative); Leukocyte Esterase-Dipstick 500 /ul (Negative); Nitrite-Dipstick Negative (Negative); Occult Blood-Urine 150 /ul (Negative); Protein-Dipstick Negative (Negative); Urine Bilirubin Dipstick Negative (Negative); Urine Clarity Sl. Cloudy (Clear); Urine Urobilinogen Normal (Normal)
[2023-05-12 21:30] LABS: Amorphous Sediment 1+ URATE; Bacteria RARE /hpf (None Seen); Red Blood Cells-Urine 10-25 SEEN /hpf (0-5); Squamous Epithelial Cells - UA 0-5 SEEN /hpf (5-10); White Blood Cells 25-50 SEEN /hpf (0-5)
[2023-05-12] MEDS: Smz/Tmp Ds Tablet 1 TABLET PO (21:49)
== END 2023-05-12 21:55 | disposition home or self-care (01) ==
PROVIDERS: Emergency Provider Emergency Medicine; PCP Family Medicine; Visit Provider Emergency Medicine
DX: N39.0 Urinary tract infection, site not specified (principal); E78.5 Hyperlipidemia, unspecified; I10 Essential (primary) hypertension; R30.0 Dysuria; R35.0 Frequency of micturition; R39.15 Urgency of urination
CPT/HCPCS: 81001; 87077; 87086; 87088; 87186; 99283

== ENCOUNTER 2023-05-16 14:05 | Emergency (ER) | payer MEDICARE, OTHER, SELFPAY ==
[2023-05-16 14:06] VITALS: BP 151/108; PULSE 102; RESP 18; TEMP 36.6; O2SAT 98; BMI 24.2
[2023-05-16 15:00] VITALS: TEMP 36.8
[2023-05-16 15:21] LABS: Mucous, Urine 0 SEEN /hpf (<or=2+)
[2023-05-16 15:22] LABS: Absolute Lymphocyte Count 1.97 X10^3/uL (0.83-4.51); Absolute Neutrophil Count 5.3 X10^3/uL (2.0-7.7); Basophil# 0.03 X10^3/uL; Basophil% 0.4 % (0-1); Eosinophil# 0.08 X10^3/uL; Hematocrit 48.2 % (37-47); Hemoglobin 15.8 g/dL (12.0-15.0); Lymphocyte # 1.97 X10^3/ul (0.83-4.51); Lymphocyte % 25.1 % (19-41); Mean Corp Hgb Conc 32.8 g/dL (32-36); Mean Corpuscular Hgb 31.3 pg (27.0-32.0); Mean Corpuscular Volume 95.4 fL (81-99); Mean Platelet Vol. 10.5 fl (6.2-12.0); Monocyte# 0.48 X10^3/uL; Monocyte% 6.1 % (0-10); NRBC Flagged by Analyzer 0 % (0-5); Neutrophil # 5.27 X10^3/uL (2.7-7.7); Neutrophil % 67.1 % (47-70); Platelet Count 274 K/mm3 (150-450); RBC Distribution Width CV 12.3 % (11.6-14.6); RBC Distribution Width SD 43.3 fl (35.1-43.9); Red Blood Count 5.05 M/mm3 (4.2-5.4); White Blood Count 7.9 K/mm3 (4.4-11.0)
[2023-05-16 15:24] LABS: Color, Urine Yellow (Yellow); Glucose, Dipstick Normal (Normal); Ketone-Dipstick Negative (Negative); Leukocyte Esterase-Dipstick 25 /ul (Negative); Nitrite-Dipstick Negative (Negative); Occult Blood-Urine 10 /ul (Negative); Protein-Dipstick 15 mg/dl (Negative); Urine Bilirubin Dipstick Negative (Negative); Urine Clarity Sl. Cloudy (Clear); Urine Urobilinogen Normal (Normal)
[2023-05-16 15:34] LABS: Red Blood Cells-Urine 0-5 SEEN /hpf (0-5); Squamous Epithelial Cells - UA 0-5 SEEN /hpf (5-10); White Blood Cells 0-5 SEEN /hpf (0-5)
[2023-05-16 15:35] LABS: Bacteria RARE /hpf (None Seen)
[2023-05-16 15:37] LABS: Anion Gap 4 (5-15); BUN 15 mg/dL (7-18); BUN/Creat Ratio 19.2 RATIO (10-20); Calcium,Total 9.3 mg/dL (8.5-10.1); Chloride 112 mmol/L (98-107); Creatinine, Serum 0.78 mg/dL (0.55-1.02); EST Glomerular Filtration Rate 76 mL/min (>60); Est Glom Filt Rate - Afr Amer 92 mL/min (>60); Estimated Creatinine Clearance 39.39 ml/min; Glucose 93 mg/dL (74-106); Sodium Level 141 mmol/L (136-145)
[2023-05-16] MEDS: Ceftriaxone 1 GM/50 ML BAG IV (15:47)
--- NOTE | 2023-05-27 07:03 | EX.ED.DYSGE1 ---
HPI History of Present Illness Chief Complaint: Complaint Narrative Narrative: Addendum: Patient seen on 05/16/2023 Patient seen 4 days ago for UTI on keflex qid. Improving symptoms, however still mild dysuria. Denies fever, back pain, vomiting or diarrhea. Was concerned due to symptoms not resolved and instructions to return if not improved in 2 days. Prior similar symptoms: Yes PFSH PFSH Medical History Alcohol use Cardiology follow-up encounter Chronic back pain Cystitis DDD (degenerative disc disease), lumbar Easy bruising Essential (primary) hypertension GERD (gastroesophageal reflux disease) History of echocardiogram History of steroid therapy History of stress test Hx of migraines Hyperlipidemia Hypertension Infection due to ESBL-producing Escherichia coli Non-smoker PONV (postoperative nausea and vomiting) Post-menopausal Spinal stenosis UTI (urinary tract infection) Home Medications ascorbic acid (vitamin C) 1,000 mg capsule,extended release 1 cap PO QHS 04/07/22 [History Last Taken Unknown] methenamine hippurate 1 gram tablet 1 g PO QHS urinary tract health 04/07/22 [History Last Taken Unknown] sucralfate 100 mg/mL oral suspension 10 ml PO QACHS #1,200 mL 05/05/22 [Rx Last Taken Unknown] lansoprazole 30 mg capsule,delayed release 30 mg PO QAM #90 caps 05/26/22 [Rx Last Taken Unknown] cephalexin 500 mg capsule 500 mg PO Q6 #20 CAPSULES 05/12/23 [Rx Last Taken Unknown] cephalexin 500 mg capsule 500 mg PO Q6 #8 CAPSULES 05/16/23 [Rx Last Taken Unknown] phenazopyridine 200 mg tablet (Pyridium) 200 mg PO TID #10 tabs 05/16/23 [Rx Last Taken Unknown] Allergy/AdvReac Type Severity Reaction Status Date / Time No Known Allergies Allergy Verified 05/16/23 14:08 Family History Mother Heart disease Father Heart disease Brother Heart disease CAD (coronary artery disease) Surgical History History of appendectomy History of back surgery History of hysterectomy History of laparoscopic cholecystectomy S/P subdural hematoma evacuation Social History Smoking Status: Never smoker ROS ROS ED Constitutional Constitutional ED: Denies chills, fever(s) or sweats Eyes Eyes: Denies change in vision ENT ENT ED: Denies dysphagia or sore throat Cardiovascular Cardiovascular: Denies chest pain, leg edema, palpitations or racing heartbeat Respiratory/Chest Respiratory/Chest: Denies cough, dyspnea or dyspnea on exertion Gastrointestinal Gastrointestinal: Denies abdominal pain, diarrhea, nausea or vomiting Genitourinary Genitourinary ED: Reports dysuria; Denies hematuria or urinary frequency Musculoskeletal Musculoskeletal: Denies back pain, extremity pain or neck pain Integumentary Denies rash or wounds Neurologic Neurologic: Denies headache(s), paresthesias or weakness EXAM Physical Exam Const Positive well nourished and well developed General Appearance ED: well developed and NAD HEENT Reports moist mucous membranes normocephalic and atraumatic Eyes PERRL, EOMs intact bilaterally and conjunctivae normal General Eye ED: Yes normal appearance of both eyes Neck no lymphadenopathy and supple General: Negative for tenderness Chest Wall Chest: Negative for tenderness Resp normal respiratory effort and normal air movement Effort and Inspection: symmetric chest movement; Negative for respiratory distress Cardio regular rate, regular rhythm and no murmurs Peripheral Pulses: pulses 2+ throughout GI normal to inspection, nondistended, normoactive bowel sounds and non-tender Palpation: Negative for guarding or rebound tenderness present Back/Spine no CVA tenderness and no thoracic nor lumbar tenderness Extremity normal to inspection General Extremety ED: Negative for edema or tenderness General Extremity: Negative for edema Neuro oriented x3 and no sensory deficits noted Sensorium / Orientation: awake and alert Skin no rashes or lesions noted and no wounds MDM MDM MDM Narrative Medical decision making narrative: Differential diagnosis: UTI dysuria Diagnosis considered but do not suspect: compolicated UTI My EKG interpretation: N/A Imaging independently reviewed and interpreted by myself: N/A External documents reviewed: ED records from 4 days ago. Urine culture + e coli, sens to keflex Test considered but not ordered: N/A ED course: Vitals stable, nontoxic. Patient with improving symptoms, however due to returned I did check basic labs which was normal. Urine only currently have mild leukocytes. I did cover with IV Rocephin. I spoke with her son who is a physician, we will extend her antibiotics additional couple days. She is placed on Pyridium. Outpatient follow-up. All questions were answered. Re-evaluation: stable Disposition discussed with patient/family/significant other: patient and family Case discussed with consulting clinician: N/A This note was generated with [employer] dictation software. It may contain incorrect words, spelling, and punctuation that were not noted in checking the note before signing. Discharge Plan Triage Chief Complaint: Complaint ED Provider: Leonardo Haq Dx/Rx/DC Orders Clinical Impression: UTI (urinary tract infection) due to Enterococcus, Dysuria Instructions: Urinary Tract Infections in Women Prescriptions: New phenazopyridine [Pyridium] 200 mg tablet 200 mg PO TID Qty: 10 0RF cephalexin [cephalexin] 500 mg capsule 500 mg PO Q6 Qty: 8 0RF No Action sucralfate 100 mg/mL suspension 10 ml PO QACHS Qty: 1200 0RF methenamine hippurate 1 gram tablet 1 g PO QHS Vitamin C 1,000 mg Capsule, Extended Release 1 cap PO QHS cephalexin [cephalexin] 500 mg capsule 500 mg PO Q6 Qty: 20 0RF lansoprazole 30 mg capsule,delayed release(DR/EC) 30 mg PO QAM Qty: 90 3RF Primary Care Provider: Rangel Santos Referrals: Rangel Santos MD [Primary Care Provider] - 1 Week if not improving Activity Restrictions/Additional Instructions: Urine culture from 4 days ago pansensitive E. coli. White count 7.9, Cr 0.78, UA with only light leukocytes esterase at this time. We will extend her antibiotics additional 2 days status post Rocephin. Follow-up with your doctor. Return if any worsening symptoms. Disposition Disposition: Home, Self Care Discharge Date/Time: 05/16/23 16:29
== END 2023-05-16 16:29 | disposition home or self-care (01) ==
PROVIDERS: Emergency Provider Emergency Medicine; PCP Family Medicine; Visit Provider Emergency Medicine
DX: N39.0 Urinary tract infection, site not specified (principal); I10 Essential (primary) hypertension; B95.2 Enterococcus as the cause of diseases classified elsewhere; E78.5 Hyperlipidemia, unspecified; R30.0 Dysuria
CPT/HCPCS: 80048; 81001; 85025; 87086; 96365; 99284

== ENCOUNTER 2023-11-08 15:56 | Emergency (ER) | payer MEDICARE, OTHER, SELFPAY ==
[2023-11-08 15:59] VITALS: BP 167/81; PULSE 103; RESP 18; TEMP 36.2; O2SAT 98; BMI 24.2
[2023-11-08 16:25] LABS: Mucous, Urine 0 SEEN /hpf (<or=2+)
[2023-11-08 16:36] LABS: Glucose, Dipstick Normal (Normal); Ketone-Dipstick Negative (Negative); Leukocyte Esterase-Dipstick 500 /ul (Negative); Nitrite-Dipstick Positive (Negative); Occult Blood-Urine 250 /ul (Negative); Protein-Dipstick 30 mg/dl (Negative); Urine Clarity Sl. Cloudy (Clear); Urine Urobilinogen 8 mg/dl (Normal)
[2023-11-08 16:44] LABS: Color, Urine SEE COMMENT BELOW (Yellow); Urine Bilirubin Dipstick 3 mg/dL (Negative)
[2023-11-08 16:47] LABS: Bacteria 1+ /hpf (None Seen); Red Blood Cells-Urine 10-25 SEEN /hpf (0-5); Squamous Epithelial Cells - UA 0-5 SEEN /hpf (5-10); White Blood Cells 10-25 SEEN /hpf (0-5)
--- OUTSIDE RECORDS SUMMARY | 2023-11-08 17:22 | XMS RPT_ITS | CCD ---
Author Name Unknown Address [address] [place] [address] Organization [facility] Care Team Providers Care Front End Manager Name Role Phone Jaycob Bonilla MD Primary Care Provider Unknown, Referring Provider Unavailable Unav ailable Unavailable Unavailable Jaycob Bonilla MD Primary Care Provider Graham, Dr. Dutch Beck Referring Unavailable Dr. Dutch Stevenson Attending Unavailable UNKNOWN, PCP Primary Care Unavailable JAYCOB BONILLA Referring Unavailable JAYCOB BONILLA Primary Care Unavailable JAYCOB BONILLA Primary Care Unavailable JAYCOB BONILLA Attending Unavailable JAYCOB BONILLA Primary Care Unavailable JAYCOB BONILLA Referring Unavailable JAYCOB BONILLA Primary Care Unavailable JAYCOB BONILLA Primary Care Unavailable JAYCBO BONILLA Primary Care Unavailable JAYCOB BONILLA Attending Unavailable JAYCOB BONILLA Primary Care Unavailable JAYCOB BONILLA Referring Unavailable JAYCOB BONILLA Primary Care Unavailable JAYCOB BONILLA Primary Care Unavailable Allergies Allergy Classification Reported Allergen(s) Allergy Type Date of Onset Reaction(s) Facility (2 sources) Angiotensin-conve rting enzyme inhibitor agent; Translations: [TEJA INHIBITORS] Drug Intolerance 05-02-20 17 Cough [facility] Work Phone: (20 sources) Omeprazole; Translations: [OMEPRAZOLE] Drug Allergy 06-12-20 20 Other: See Comments [facility] Work Phone: (20 sources) pantoprazole; Translations: [PANTOPRAZOLE] Drug Allergy 10-05-20 16 Other: See Comments [facility] Work Phone: (20 sources) Sucralfate; Translations: [SUCRALFATE] Drug Allergy 10-07-20 16 Diarrhea [facility] Work Phone: (19 sources) environmental [Other] Propensity to adverse reactions 06-14-20 06 Unknown [facility] Work Phone: (18 sources) Angiotensin-conve rting enzyme inhibitor agent Drug Intolerance 05-02-20 17 Cough [facility] Work Phone: (1 source) OTHER; Translations: [OTHER] Propensity to adverse reactions (disorder) 06-14-20 06 [facility] Repository Medications Current Medications Medication Drug Class(es) Dates Sig (Normalized) Sig (Original) amoxicillin 875 mg / clavulanate 125 mg oral tablet (1 source) Penicillin-class Antibacterial Start: 09-12-2023 End: 09-19-2023 take 1 tablet by mouth twice daily amoxicillin-clavulan ate potassium (AUGMENTIN) 875-125 mg per tablet Indications: Rhinosinusitis Take 1 tablet by mouth two times a day for 7 days. 14 tablet 0 09/12/2023 09/19/2023 Active Completed/Discontinued Medications Medication Drug Class(es) Dates Sig (Normalized) Sig (Original) amitriptyline hydrochloride 10 mg oral tablet (1 source) Tricyclic Antidepressant Start: 07-12-2022 Amitriptyline HCl - 10 MG Oral Tablet TAKE 1 TABLET AT BEDTIME.MAY INCREASE TO 2 TABLETS AT BEDTIME AFTER 1 WEEK. Quantity: 60 Refills: 11 Ordered: 12-Jul-2022 Dutch Stevenson DO Start : 12-Jul-2022 Active ascorbic acid 1000 mg oral tablet (19 sources) Vitamin C take 1 tablet by mouth once daily Ascorbic Acid 1,000 mg tablet Take 1,000 mg by mouth once daily. 0 Active Problems Active Problems Problem Classification Problem Date Documented Da te Episodic/Chronic Abdominal hernia (20 sources) Diaphragmatic hernia; Translations: [Diaphragmatic hernia without obstruction or gangrene] Onset: 3 02-25-2020 Episodic Digestive congenital anomalies (18 sources) Ectopic gastric mucosa - multiple sites; Translations: [Other specified congenital malformations of stomach] Onset: 2 05-06-2022 Chronic Disorders of lipid metabolism (20 sources) Mixed hyperlipidemia; Translations: [Mixed hyperlipidemia] Onset: 8 Chronic Esophageal disorders (20 sources) Gastroesophageal reflux disease without esophagitis; Translations: [Gastro-esophageal reflux disease without esophagitis] Onset: 8 Chronic Essential hypertension (20 sources) Essential hypertension; Translations: [Essential (primary) hypertension] Onset: 6 Chronic Genitourinary symptoms and ill-defined conditions (20 sources) History of recurrent urinary tract infection; Translations: [Personal history of urinary (tract) infections] Onset: 8 01-08-2019 Episodic Headache; including migraine (20 sources) Migraine without aura, not refractory ; Translations: [Migraine without aura, not intractable, without status migrainosus] Onset: 6 Chronic Immunizations and screening for infectious disease (1 source) Vaccination needed; Translations: [Encounter for immunization] Episodic Menopausal disorders (19 sources) Atrophic vaginitis; Translations: [Postmenopausal atrophic vaginitis] Onset: 2 07-20-2016 Chronic Other circulatory disease (2 sources) Abnormal chest sounds; Translations: [Other specified symptoms and signs involving the circulatory and respiratory systems] Episodic Other diseases of bladder and urethra (19 sources) Mass of urinary bladder; Translations: [Other specified disorders of bladder] Onset: 4 07-20-2016 Chronic Other gastrointestinal disorders (1 source) Dysphagia, unspecified; Translations: [Dysphagia, unspecified] Onset: 3 Episodic Other skin disorders (19 sources) Lichen sclerosus et atrophicus; Translations: [Circumscribed scleroderma] Onset: 7 03-03-2017 Chronic Other upper respiratory disease (20 sources) Seasonal allergy; Translations: [Other seasonal allergic rhinitis] Onset: 6 Chronic Other upper respiratory infections (1 source) Chronic sinusitis, unspecified; Translations: [Unspecified sinusitis (chronic)] 09-12-2023 Chronic Other upper respiratory infections (1 source) Upper respiratory infection; Translations: [Acute upper respiratory infection, unspecified] 08-09-2023 Episodic Thyroid disorders (20 sources) Thyroid nodule; Translations: [Nontoxic single thyroid nodule] Onset: 6 02-01-2018 Chronic Unclassified (1 source) Other specified disease of esophagus; Translations: [Other specified disease of esophagus] Onset: 3 Viral infection (1 source) Disease caused by 2019-nCoV; Translations: [COVID-19] 08-10-2023 Episodic Past or Other Problems Problem Classification Problem Date Documented Da te Episodic/Chronic Administrative/social admission (16 sources) Advance directive discussed with patient; Translations: [Other specified counseling] Onset: 01-16-2023 Episodic Diabetes mellitus without complication (20 sources) Hyperglycemia; Translations: [Impaired fasting glucose] Onset: 08-14-2018 Episodic Hemorrhoids (19 sources) Hemorrhoids; Translations: [Unspecified hemorrhoids] Onset: 03-03-2017 03-03-2017 Episodic Other aftercare (20 sources) Patient encounter status; Translations: [Other intermediate frame tender (current) drug therapy] Onset: 07-20-2016 Episodic Other aftercare (1 source) Other intermediate frame tender (current) drug therapy; Translations: [Medication management] Onset: 04-16-2020 Episodic Other circulatory disease (19 sources) History of subdural hematoma; Translations: [Personal history of other diseases of the circulatory system] Onset: 03-03-2017 03-03-2017 Episodic Other circulatory disease (20 sources) Clearing throat - hawking; Translations: [Other specified symptoms and signs involving the circulatory and respiratory systems] Onset: 02-01-2018 08-23-2019 Episodic Other circulatory disease (2 sources) Other specified symptoms and signs involving the circulatory and respiratory systems; Translations: [Oth symptoms and signs involving the circ and resp systems] Onset: 12-19-2022 Episodic Other lower respiratory disease (20 sources) Multiple nodules of lung; Translations: [Other nonspecific abnormal finding of lung field] Onset: 10-03-2016 02-01-2018 Episodic Other lower respiratory disease (2 sources) Other nonspecific abnormal finding of lung field; Translations: [Pulmonary nodules] Onset: 01-16-2023 Episodic Residual codes; unclassified (15 sources) Active living will ; Translations: [Other specified health status] Onset: 01-16-2023 01-16-2023 Episodic Spondylosis; intervertebral disc disorders; other back problems (20 sources) Spinal stenosis of lumbar region; Translations: [Spinal stenosis, lumbar region without neurogenic claudication] Onset: 03-21-2012 07-20-2016 Episodic Results Test Name Value Interpretation Reference Range Facil ity Vital Signs Date Time Vital Sign Value Performing Clinician Facility 09-12-2023 15:56-0500 Body temperature 98.49 [degF] Toya Artem MONDRAGONN.CONTRACT ANALYST Work Phone: [facility] 09-12-2023 15:56-0500 Body weight 63.41 kg Toyajorge Mcgill APRN.CONTRACT ANALYST Work Phone: [facility] 09-12-2023 15:56-0500 Diastolic blood pressure 84 mm[Hg] Toya Mcgill APRN.CONTRACT ANALYST Work Phone: [facility] 09-12-2023 15:56-0500 Heart rate 91 /min Toya Mcgill APRN.CONTRACT ANALYST Work Phone: [facility] 09-12-2023 15:56-0500 Respiratory rate 18 /min Toyajorge Mcgill APRN.CONTRACT ANALYST Work Phone: [facility] 09-12-2023 15:56-0500 SaO2% (BldA) [Mass fraction] 98 % Toya Mcgill APRN.CONTRACT ANALYST Work Phone: [facility] 09-12-2023 15:56-0500 Systolic blood pressure 148 mm[Hg] Toya Mcgill SCALP SPECIALIST.CONTRACT ANALYST Work Phone: [facility] 08-09-2023 07:53-0400 Body temperature 99.61 [degF] Jessica Badillo SCALP SPECIALIST.CONTRACT ANALYST Work Phone: [facility] 08-09-2023 07:53-0400 Body weight 63.05 kg Jessica Badillo SCALP SPECIALIST.CONTRACT ANALYST Work Phone: [facility] 08-09-2023 07:53-0400 Diastolic blood pressure 95 mm[Hg] Jessica Justino SCALP SPECIALIST.CONTRACT ANALYST Work Phone: [facility] 08-09-2023 07:53-0400 Heart rate 126 /min Jessica Justino SCALP SPECIALIST.CONTRACT ANALYST Work Phone: [facility] 08-09-2023 07:53-0400 Respiratory rate 18 /min Jessica Justino SCALP SPECIALIST.CONTRACT ANALYST Work Phone: [facility] 08-09-2023 07:53-0400 SaO2% (BldA) [Mass fraction] 96 % Jessica Badillo APRN.CONTRACT ANALYST Work Phone: [facility] 08-09-2023 07:53-0400 Systolic blood pressure 143 mm[Hg] Jessica Badillo APRN.CONTRACT ANALYST Work Phone: [facility] 07-19-2023 16:54-0400 Diastolic blood pressure 78 mm[Hg] Jaycob Bonilla MD Work Phone: [facility] 07-19-2023 16:54-0400 Systolic blood pressure 128 mm[Hg] Jaycob Bonilla MD Work Phone: [facility] 07-19-2023 16:47-0400 Body weight 63.05 kg Jaycob Bonilla MD Work Phone: [facility] 07-19-2023 16:47-0400 Heart rate 92 /min Jaycob Bonilla MD Work Phone: [facility] 07-19-2023 16:47-0400 Respiratory rate 16 /min Jaycob Bonilla MD Work Phone: [facility] 05-25-2023 14:36-0400 Body temperature 99.1 [degF] Toya Mcgill APRN.CONTRACT ANALYST Work Phone: [facility] 05-25-2023 14:36-0400 Diastolic blood pressure 94 mm[Hg] Toya Mcgill APRN.CONTRACT ANALYST Work Phone: [facility] 05-25-2023 14:36-0400 Heart rate 118 /min Toya Mcgill APRN.CONTRACT ANALYST Work Phone: [facility] 05-25-2023 14:36-0400 Respiratory rate 18 /min Toya Mcgill APRN.CONTRACT ANALYST Work Phone: [facility] 05-25-2023 14:36-0400 SaO2% (BldA) [Mass fraction] 96 % Toya Mcgill APRN.CONTRACT ANALYST Work Phone: [facility] 05-25-2023 14:36-0400 Systolic blood pressure 158 mm[Hg] Toya Mcgill APRN.CNP Work Phone: [facility] 01-16-2023 07:56-0400 Body height 158.1 cm Jaycob Bonilla MD Work Phone: [facility] 01-16-2023 07:56-0400 Body weight 64.86 kg Jaycob Bonilla MD Work Phone: [facility] 01-16-2023 07:56-0400 Diastolic blood pressure 78 mm[Hg] Jaycob Bonilla MD Work Phone: [facility] 01-16-2023 07:56-0400 Heart rate 60 /min Jaycob Bonilla MD Work Phone: [facility] 01-16-2023 07:56-0400 Respiratory rate 14 /min Jaycob Bonilla MD Work Phone: [facility] 01-16-2023 07:56-0400 Systolic blood pressure 133 mm[Hg] Jaycob Bonilla MD Work Phone: [facility] 07-12-2022 11:09-0400 Body height 160.02 cm Referring Provider Unknown VA-Zsmlbpbxbphi-Kf[address] Work Phone: 07-12-2022 11:09-0400 Body mass index (BMI) [Ratio] 24.62 kg/m2 Referring Provider Unknown MQ-Guuuzbppypen-Dl[address] Work Phone: 07-12-2022 11:09-0400 Body surface area Derived from formula 1.66 m2 Referring Provider Unknown YT-Lytqphiqwrfy-Pn[address] Work Phone: 07-12-2022 11:09-0400 Body temperature 97.3 [degF] Referring Provider Unknown [place] [id number] [facility] Work Phone: 07-12-2022 11:09-0400 Body weight 63.05 kg Referring Provider Unknown VD-Mlpvxzvwufdq-Lo[address] Work Phone: 07-12-2022 11:09-0400 Diastolic blood pressure 95 mm[Hg] Referring Provider Unknown [facility] [address] [facility] Work Phone: 07-12-2022 11:09-0400 Heart rate 85 /min Referring Provider Unknown QZ-Aqsmwmqdqavl[facility] [address] [facility] Work Phone: 07-12-2022 11:09-0400 Systolic blood pressure 192 mm[Hg] Referring Provider Unknown ZP-Xvchxkjubieq[facility] [address] [facility] Work Phone: 07-12-2022 11:090400 0 1 Referring Provider Unknown [facility] [address] [facility] Work Phone: Encounters Encounter Date Encounter Type Care Provider Facility Start: 09-12-2023 End: 09-12-2023 ambulatory JAYCOB BONILLA Facility:[facility] Start: 09-12-2023 End: 09-12-2023 Patient encounter procedure Toya Mcgill APRN.CNP Work Phone: [facility] Procedures Date Procedure Procedure Detail Performing Clinician Start: 08-09-2023 COVID & INFLUENZA A/ B & RSV NAAT, ROUTINE Jessica Badillo APRN.CNP Work Phone: Start: 08-09-2023 Iadna respiratry pro be & rev trnscr 3-5 targets Jessica Badillo APRN.CNP Work Phone: Start: 08-09-2023 Sars-cov-2 detection by dna/rna Jessica Badillo APRN.CNP Work Phone: Start: 05-25-2023 Urnls dip stick/tabl et rgnt auto w/o microscopy Toya Mcgill APRN.CNP Work Phone: Start: 01-24-2023 Ct thorax w/o contra st material Jaycob Bonilla MD Work Phone: Hysterectomy Referring Provi ed Unknown Operation on gallbladder Ref erring Provider Unknown Plan of Treatment Date Care Activity Detail Author Start: 09-09-2028 Urine microalbumin profile DTa P,Tdap,Td Vaccine (3 - Td or Tdap) [facility] Start: 07-17-2026 Diabetes Screening Diabetes Screenin g [facility] Start: 01-09-2026 DIABETES SCREEN DIABETES SCREEN [facility] Start: 04-20-2025 DIABETES SCREEN DIABETES SCREEN [facility] Start: 07-19-2024 Annual PCP Team Primer Assembler fred Disease Visit Annual PCP Team Chronic Disease Visit [facility] Start: 07-19-2024 BP Controlled (<130/80) BP Controlle d (<130/80) [facility] Start: 01-18-2024 FECAL OCCULT BLOOD FECAL OCCULT BLOO D [facility] Start: 01-17-2024 ANNUAL PCP TEAM ASSIGNMENT DESK EDITOR FRED DISEASE VISIT ANNUAL PCP TEAM CHRONIC DISEASE VISIT [facility] Start: 01-17-2024 BP CONTROLLED (<130/80) BP CONTROLLE D (<130/80) [facility] Start: 01-17-2024 COVID-19 VACCINE (4 - Booster for Pfizer series) COVID-19 VACCINE (4 - Booster for Pfizer series) [facility] Immunizations Immunization Date Immunization Notes Care Provider Fa cility 01-16-2023 pneumococcal (PCV20) vaccine, 20 valent (PREVNAR 20) Jaycob Bonilla MD Work Phone: [facility] 01-16-2023 pneumococcal Conjuga te, unspecified formulation Jaycob Bonilla MD Work Phone: [facility] Work Phone: 08-16-2022 Fluad Quadrivalent 0 .5 ML Intramuscular Prefilled Syringe Referring Provider Unknown -Gastroenterology -Admin [facility] Work Phone: 08-16-2022 influenza virus vacc ine, unspecified formulation Jaycob Bonilla MD Work Phone: [facility] 08-20-2021 Fluzone High-Dose Quadrivalent 0.7 ML Intramuscular Suspension Prefilled Syringe Referring Provider Unknown -Gastroenterology -Admin [facility] Work Phone: 08-01-2021 Pfizer-BioNTCambly COVI D-19 Vacc 30 MCG/0.3ML Intramuscular Suspension Referring Provider Unknown -Gastroenterology -Admin [facility] Work Phone: 12-29-2020 COVID-19 vaccine, ag e 12+ yr (PFIZER-BIONTECH - PURPLE TOP) Jaycob Bonilla MD Work Phone: [facility] 12-10-2020 COVID-19 vaccine, ag e 12+ yr (PFIZER-BIONTECH - PURPLE TOP) Jaycob Bonilla MD Work Phone: [facility] 09-06-2020 influenza, high dose seasonal, preservative-free Jaycob Bonilla MD Work Phone: [facility] 09-02-2020 influenza, high-dose , quadrivalent vaccine (FLUZONE HIGH DOSE QUADRIVALENT) Jaycob Bonilla MD Work Phone: [facility] 08-14-2019 influenza, high dose seasonal, preservative-free Jaycob Bonilla MD Work Phone: [facility] 08-14-2019 Influenza, injectabl e, Madin Tanya Canine Kidney, preservative free, quadrivalent Jaycob Bonilla MD Work Phone: [facility] 09-09-2018 influenza, injectabl e, quadrivalent, preservative free Referring Provider Unknown -Gastroenterology -Admin [facility] Work Phone: 09-09-2018 tetanus toxoid, redu aundrea diphtheria toxoid, and acellular pertussis vaccine, adsorbed Referring Provider Unknown -Gastroenterology -Admin [facility] Work Phone: 06-13-2018 zoster vaccine recombinant Jaycob Bonilla MD Work Phone: [facility] 04-11-2018 zoster vaccine recombinant Jaycob Bonilla MD Work Phone: [facility] 09-03-2017 influenza, high dose seasonal, preservative-free Jaycob Bonilla MD Work Phone: [facility] 08-04-2017 pneumococcal polysaccharide vaccine, 23 valent Jaycob Bonilla MD Work Phone: [facility] 10-05-2016 influenza, injectabl e, quadrivalent, contains preservative Jaycob Bonilla MD Work Phone: [facility] 07-20-2016 pneumococcal conjuga te vaccine, 13 valent Jaycob Bonilla MD Work Phone: [facility] Work Phone: 11-04-2009 novel influenza-H1N1 -09, preservative-free, injectable Referring Provider Unknown -Gastroenterology -Admin [facility] Work Phone: 08-18-2009 pneumococcal polysaccharide vaccine, 23 valkota Bonilla MD Work Phone: [facility] Work Phone: 10-24-2008 zoster vaccine, live Referri ng Provider Unknown -Gastroenterology -Admin [facility] Work Phone: 01-14-2008 diphtheria and tetan us toxoids, adsorbed for pediatric use Jaycob Bonilla MD Work Phone: [facility] Work Phone: 04-16-2007 zoster vaccine, live Jaycob Bonilla MD Work Phone: [facility] Work Phone: 09-05-2006 influenza virus vacc ine, unspecified formulation Jaycob Bonilla MD Work Phone: [facility] Work Phone: Payers Date Payer Category Payer Private Health Insurance CIG[employer] C IGNA MEDICARE SUPPLEMENT [id number] 2013-Present [phone] [address] [place] [address] Indemnity [id number] 2008 Medicare MEDICARE MEDICAR E A AND B [id number] 2008-Present [phone] [address] [address] [place] [address] Medicare [id number] 2008 Medicare MEDICARE MEDICAR E A AND B [id number] 2008-Present [phone] [place] [address] Medicare [id number] 2008 Medicare [id number] 1945 Unknown [id number] Unknown Unknown [id number] Social History Date Type Detail Facility Start: 09-14-2017 End: 01-16-2023 Tobacco smoking status NHIS Never smoked tobacco [facility] Start: 04-27-2022 End: 09-12-2023 Alcohol intake Current drinker of alcohol (finding) [facility] Start: 04-27-2022 End: 07-19-2023 Alcohol intake [facility] Work Phone: Start: 09-14-2017 History SDOH Alcohol Comment Socially. [facility] Start: 09-14-2017 End: 01-16-2023 Tobacco Comment No smoking in childhood home. No significant ETS in household since. [facility] Start: 1945 Sex Assigned At Female C [facility] Work Phone: Start: 04-17-2022 End: 04-27-2022 Exposure to SARS-CoV-2 (event) Not sure [facility] Start: 09-14-2017 End: 01-16-2023 Tobacco use and exposure Smokeless tobacco non-user [facility] Work Phone: Start: 01-16-2023 End: 07-19-2023 Tobacco use panel [facility] Work Phone: Adult Depression Screening Assessment 0 [facility] Work Phone: Start: 09-14-2017 Gender identity Identifies as female gender (finding) [facility] Work Phone: Start: 09-14-2017 Sexual orientation Heterosexual ([place]) [facility] Work Phone: Clinical Notes 01-14-2008 to 09-12-2023 Toya Mcgill APRN.CONTRACT ANALYST - 09/12/2023 4:06 PM ESTTelephone Encounter - Rylie Kaur RN - 09/12/2023 3:28 PM ESTTelephone Encounter - Madison Mcgill MA - 09/12/2023 1:46 PM EST Note Date & Type Note Facility 09-12-2023 Note HNO ID: [id number] Author: Toya Mcgill APRN.CONTRACT ANALYST Service: ? Author Type: Nurse Practitioner Type: Progress Notes Filed: 09/12/2023 4:08 PM Note Text: CC: Patient presents with: Cough: Cough, sinus pressure and loss of voice x 12 days HPI: Norma Ferris is a 77 year old female who presents to the office with complaint of cough, nonproductive and sinus symptoms for 12 days. Symptoms are worsening Associated symptoms includes nasal congestion, facial pain/pressure, and cough. Denies fever, nausea, vomiting , and diarrhea. Treatments tried include nothing so far. with no relief of symptoms. Sick contacts: unknown. History of asthma, frequent episodes of bronchitis, chronic bronchitis, bronchiectasis or COPD: No Smoker: No Seasonal/environmental allergies: No The ROS is otherwise negative. The patient's pmh, medications, allergies, and past visits are reviewed. PHYSICAL EXAM: BP 148/84 Pulse 91 Temp 36.9 ?C (98.5 ?F) (Tympanic) Resp 18 Wt 63.4 kg (139 lb 12.8 oz) SpO2 98% BMI 25.36 kg/m? General appearance: alert, cooperative, pleasant, in no acute distress Head: Normocephalic Eyes: EOM's intact, conjunctiva pink and moist, no icterus, sclera white, non-injected Ears: Right ear: External ear/canal- Normal, TM - clear with good landmarks. Left ear: External ear/canal- Normal, TM - clear with good landmarks Oropharynx:moist without lesions, No erythema, exudates or tonsillar hypertrophy. Heart: Negative. RRR without obvious murmur, gallop, or rubs. No ectopy. 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 Duarte at [facility]. 08/18/[address] Fischer at [place] Chronic throat clearing 02/01/2018 Diaphragmatic hernia Hiatal hernia Ectopic gastric mucosa of multiple sites 05/06/[address] Granado 04/2022 Elevated fasting blood sugar 08/14/2018 Encounter for gynecological examination without abnormal finding 07/20/2016 Sees [facility]. Essential hypertension 07/20/2016 GERD without esophagitis 01/14/2008 Hemorrhoids 03/03/2017 History of recurrent UTIs 07/19/2018 History of subdural hematoma 03/03/2017 After a fall Lichen sclerosus et atrophicus 03/03/2017 Living will on file at physician's office 01/16/2023 DPA: Nate (Son) Lumbago 03/21/[address] Duarte at [facility]. Medicare annual wellness visit, subsequent 08/14/2018 Medicare Part B: 06/06/2008 last done: 08/23/2019 Migraine without aura and without status migrainosus, not intractable 07/20/2016 Mixed hyperlipidemia 01/14/2008 Postmenopausal atrophic vaginitis 06/06/2012 Pulmonary nodules 10/03/201609/2016, follow uo CT in a year, 08/[address] Zheng Right thyroid nodule 10/03/2016 Had benign biopsy 09/2016 at [facility] Seasonal allergies 07/20/2016 Spinal stenosis, lumbar region, without neurogenic claudication 03/21/2012 PAST SURGICAL HISTORY Procedure Laterality Date 2D ECHO (EXEP) 09/2016 EF=65%, mild 1+ MR, TR APPENDECTOMY BACK SURGERY HX BRAIN SURGERY HX 2000 Brain bleed COLONOSCOPY 04/29/2013 Dr. Lu, repeat 10 years ESOPHAGOGASTRODUODENOSCOPY TRANSORAL DIAGNOSTIC 06/22/2020 EGD FECAL OCCULT BLOOD TEST 10/27/2021 negative HEMORRHOIDECTOMY XTRNL 2/> COLUMN/GROUP LAPAROSCOPY SURG CHOLECYSTECTOMY 2002 Cholecystectomy, lap PAST SURGICAL HISTORY OF 1995 bladder suspension PAST SURGICAL HISTORY OF 2003 TVT and subsquent collagen injection PAST SURGICAL HISTORY OF 02/2012 back surgery for spinal stenosis PAST SURGICAL HISTORY OF 07/2016 had lumbar hardware removed, cleaned up DDD lumbar spine PAST SURGICAL HISTORY OF 1999 Hematoma head PAST SURGICAL HISTORY OF 12/2022 esophageal ablation STRESS ECHO 10/29/2019 norml SUBTEMPORAL CRANIAL DECOMPRESSION 2000 TOTAL ABDOMINAL HYSTERECT W/WO RMVL TUBE OVARY 1988 Hysterectomy, FUAD/BSO VAGINAL HYSTERECTOMY ALLERGIES Teja Inhibitors, Carafate [Sucralfate], Environmental [Other], Omeprazole, and Protonix [Pantoprazole] MEDICATIONS simvastatin (ZOCOR) 10 mg tablet Take 1 tablet by mouth daily at bedtime. risperiDONE (RISPERDAL) 0.25 mg tablet Take 1 tablet by mouth twice daily. lansoprazole (PREVACID) 30 mg capsule Take 30 mg by mouth once daily. Take 1 tablet in the AM SUMAtriptan (IMITREX) 100 mg tablet Take one tab by month with onset of headache. Can repeat in 2 hrs. Max of 2 tabs in 24 hrs Ascorbic Acid 1,000 mg tablet Take 1,000 mg by mouth once daily. Methenamine Hippurate (HIPREX) 1 gram tablet TAKE 1 TABLET BY MOUTH ONCE DAILY AT BEDTIME WITH VITAMIN C 1000MG FOR UTI PREVENTION amoxicillin-clavulanate potass (more content not included)... [facility] 09-12-2023 History of Present illness Narrative CC: Patient presents with: Cough: Cough, sinus pressure and loss of voice x 12 days HPI: Norma Ferris is a 77 year old female who presents to the office with complaint of cough, nonproductive and sinus symptoms for 12 days. Symptoms are worsening Associated symptoms includes nasal congestion, facial pain/pressure, and cough. Denies fever, nausea, vomiting , and diarrhea. Treatments tried include nothing so far. with no relief of symptoms. Sick contacts: unknown. History of asthma, frequent episodes of bronchitis, chronic bronchitis, bronchiectasis or COPD: No Smoker: No Seasonal/environmental allergies: No The ROS is otherwise negative. The patient's pmh, medications, allergies, and past visits are reviewed. PHYSICAL EXAM: BP 148/84 Pulse 91 Temp 36.9 C (98.5 F) (Tympanic) Resp 18 Wt 63.4 kg (139 lb 12.8 oz) SpO2 98% BMI 25.36 kg/m General appearance: alert, cooperative, pleasant, in no acute distress Head: Normocephalic Eyes: EOM's intact, conjunctiva pink and moist, no icterus, sclera white, non-injected Ears: Right ear: External ear/canal- Normal, TM - clear with good landmarks. Left ear: External ear/canal- Normal, TM - clear with good landmarks Oropharynx:moist without lesions, No erythema, exudates or tonsillar hypertrophy. Heart: Negative. RRR without obvious murmur, gallop, or rubs. No ectopy. 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 Duarte at [facility]. 08/18/[address] Fischer at [facility] throat clearing 02/01/2018 Diaphragmatic hernia Hiatal hernia Ectopic gastric mucosa of multiple sites 05/06/[address] Granado 04/2022 Elevated fasting blood sugar 08/14/2018 Encounter for gynecological examination without abnormal finding 07/20/2016 Sees [facility]. Essential hypertension 07/20/2016 GERD without esophagitis 01/14/2008 Hemorrhoids 03/03/2017 History of recurrent UTIs 07/19/2018 History of subdural hematoma 03/03/2017 After a fall Lichen sclerosus et atrophicus 03/03/2017 Living will on file at physician's office 01/16/2023 DPA: Nate (Son) Lumbago 03/21/[address] Duarte at [facility]. Medicare annual wellness visit, subsequent 08/14/2018 Medicare Part B: 06/06/2008 last done: 08/23/2019 Migraine without aura and without status migrainosus, not intractable 07/20/2016 Mixed hyperlipidemia 01/14/2008 Postmenopausal atrophic vaginitis 06/06/2012 Pulmonary nodules 10/03/201609/2016, follow uo CT in a year, 08/[address] Zheng Right thyroid nodule 10/03/2016 Had benign biopsy 09/2016 at [facility] Seasonal allergies 07/20/2016 Spinal stenosis, lumbar region, without neurogenic claudication 03/21/2012 PAST SURGICAL HISTORY Procedure Laterality Date 2D ECHO (EXEP) 09/2016 EF=65%, mild 1+ MR, TR APPENDECTOMY BACK SURGERY HX BRAIN SURGERY HX 1999 Brain bleed COLONOSCOPY 04/29/2013 Dr. Lu, repeat 10 years ESOPHAGOGASTRODUODENOSCOPY TRANSORAL DIAGNOSTIC 06/22/2020 EGD FECAL OCCULT BLOOD TEST 10/27/2021 negative HEMORRHOIDECTOMY XTRNL 2/> COLUMN/GROUP LAPAROSCOPY SURG CHOLECYSTECTOMY 2002 Cholecystectomy, lap PAST SURGICAL HISTORY OF 1995 bladder suspension PAST SURGICAL HISTORY OF 2003 TVT and subsquent collagen injection PAST SURGICAL HISTORY OF 02/2012 back surgery for spinal stenosis PAST SURGICAL HISTORY OF 07/2016 had lumbar hardware removed, cleaned up DDD lumbar spine PAST SURGICAL HISTORY OF 1999 Hematoma head PAST SURGICAL HISTORY OF 12/2022 esophageal ablation STRESS ECHO 10/29/2019 norml SUBTEMPORAL CRANIAL DECOMPRESSION 1999 TOTAL ABDOMINAL HYSTERECT W/WO RMVL TUBE OVARY 1987 Hysterectomy, FUAD/BSO VAGINAL HYSTERECTOMY ALLERGIES Teja Inhibitors, Carafate [Sucralfate], Environmental [Other], Omeprazole, and Protonix [Pantoprazole] MEDICATIONS simvastatin (ZOCOR) 10 mg tablet Take 1 tablet by mouth daily at bedtime. risperiDONE (RISPERDAL) 0.25 mg tablet Take 1 tablet by mouth twice daily. lansoprazole (PREVACID) 30 mg capsule Take 30 mg by mouth once daily. Take 1 tablet in the AM SUMAtriptan (IMITREX) 100 mg tablet Take one tab by month with onset of headache. Can repeat in 2 hrs. Max of 2 tabs in 24 hrs Ascorbic Acid 1,000 mg tablet Take 1,000 mg by mouth once daily. Methenamine Hippurate (HIPREX) 1 gram tablet TAKE 1 TABLET BY MOUTH ONCE DAILY AT BEDTIME WITH VITAMIN C 1000MG FOR UTI PREVENTION amoxicillin-clavulanate potassium (AUGMENTIN) 875-125 mg per tablet Take 1 tablet by mouth two times a day for 7 days. benzonatate (TESSALON PERLE) 100 mg capsule Take 2 capsules by mouth three times a day as needed. (Patient not taking: Reported on 09/12/2023) FAMILY HISTORY Problem Relation Age of Onset Coronary Artery Disease Mother Fatal [place] in her 80s Diabetes Father ADULT ONSET Coronary Artery Disease Father in his 80s Hypertension Brother Coronary Artery Disease Brother 56 Prostate Cancer Brother COPD No Family History No lung cancer. Social History Tobacco Use Smoking status: Never Smokeless tobacco: Never Tobacco comments: No smoking in childhood home. No significant ETS in household since. Substance Use Topics Alcohol use: Yes Alcohol/week: 5.0 standard drinks of alcohol Types: 2 Glasses of Wine (5oz) per week Comment: Socially. Drug use: No ASSESSMENT/PLAN: 1. Rhinosinusitis - ICD9: 473.9, ICD10: J32.9 - AMOXICILLIN 875 MG-POTASSIUM CLAVULANATE 125 MG TABLET Prescription instructions reviewed with patient as applicable. Potential red flag symptoms discussed with the patient. Reviewed appropriate action plan to take if red flag symptoms occur. Patient agreeable to treatment plan. Toya Mcgill APRN.KATIE documented in this encounter [facility] 09-12-2023 Miscellaneous Notes Patient calls and notified of provider recommendations below. Patient voiced understanding. Rylie Kaur RN Left message for patient to contact office. Madison Mcgill MA Advise patient she will need seen. We do not just call in antibiotics. Patient calls and states that she has had sinus pressure x 1 week with sinus eye pain. Patient does a lot of coughing at night and has had a lot of drainage. Patient has done OTC medications including saline solution which has not helped. Offered to schedule appointment for patient to discuss symptoms, patient declines. Patient asking if provider can send in a prescription for her? Please review and advise, Rylie Kaur RN documented in this encounter [facility] 08-10-2023 Instructions Ruby Garza PA-C - 08/10/2023 8:55 AM EDT Fact Sheet for Patients And Caregivers Emergency Use Authorization (EUA) Of LAGEVRIO (molnupiravir) capsules For Coronavirus Disease 2019 (COVID-19) What is the most important information I should know about LAGEVRIO? LAGEVRIO may cause serious side effects, including: LAGEVRIO may cause harm to your unborn baby. It is not known if LAGEVRIO will harm your baby if you take LAGEVRIO during . LAGEVRIO is not recommended for use in . LAGEVRIO has not been studied in . LAGEVRIO was studied in animals only. When LAGEVRIO was given to animals, LAGEVRIO caused harm to their unborn babies. You and your healthcare provider may decide that you should take LAGEVRIO during if there are no other COVID-19 treatment options approved or authorized by the FDA that are accessible or clinically appropriate for you. If you and your healthcare provider decide that you should take LAGEVRIO during , you and your healthcare provider should discuss the known and potential benefits and the potential risks of taking LAGEVRIO during . For individuals who are able to become : You should use a reliable method of control (contraception) consistently and correctly during treatment with LAGEVRIO and for 4 days after the last dose of LAGEVRIO. Talk to your healthcare provider about reliable control methods. Before starting treatment with LAGEVRIO your healthcare provider may do a test to see if you are before starting treatment with LAGEVRIO. Tell your healthcare provider right away if you become or think you may be during treatment with LAGEVRIO. Registry: There is a registry for individuals who take LAGEVRIO during . The purpose of this program is to collect information about the health of you and your baby. If you are or become during treatment with LAGEVRIO, you are encouraged to report your use of LAGEVRIO during to this registry at [email or web address]://covid-pr.[email or web address] or . For individuals who are sexually active with partners who are able to become : It is not known if LAGEVRIO can affect sperm. While the risk is regarded as low, animal studies to fully assess the potential for LAGEVRIO to affect the babies of males treated with LAGEVRIO have not been completed. A reliable method of control (contraception) should be used consistently and correctly during treatment with LAGEVRIO and for at least 3 months after the last dose. The risk to sperm beyond 3 months is not known. Studies to understand the risk to sperm beyond 3 months are ongoing. Talk to your healthcare provider about reliable control methods. Talk to your healthcare provider if you have questions or concerns about how LAGEVRIO may affect sperm. You are being given this fact sheet because your healthcare provider believes it is necessary to provide you with LAGEVRIO for the treatment of adults with a current diagnosis of mild-tomoderate coronavirus disease 2019 (COVID-19) who are at high risk for progression to severe COVID-19, including hospitalization or , and for whom other COVID-19 treatment options approved or authorized by the FDA are not accessible or clinically appropriate. The U.S. Food and Drug Administration (FDA) has issued an Emergency Use Authorization (EUA) to make LAGEVRIO available during the COVID-19 pandemic (for more details about an EUA please see What is an Emergency Use Authorization? at the end of this document). LAGEVRIO is not an FDA-approved medicine in the [place]. Read this Fact Sheet for information about LAGEVRIO. Talk to your healthcare provider about your options if you have any questions. It is your choice to take LAGEVRIO. What is COVID-19? COVID-19 is caused by a virus called a coronavirus. You can get COVID-19 through close contact with another person who has the virus. COVID-19 illnesses have ranged from very zhzh-vx-scixik, including illness resulting in . While information so far suggests that most COVID-19 illness is mild, serious illness can happen and may cause some of your other medical conditions to become worse. Older people and people of all ages with severe, long lasting (chronic) medical conditions like heart disease, lung disease and diabetes, for example seem to be at higher risk of being hospitalized for COVID-19. What is LAGEVRIO? LAGEVRIO is an investigational medicine used to treat adults with a current diagnosis of mild to moderate COVID-19: who are at high risk for progression to severe COVID-19 including hospitalization or , and for whom other COVID-19 treatment options approved or authorized by the FDA are not accessible or clinically appropriate. The FDA has authorized the emergency use of LAGEVRIO for the treatment of mild-tomoderate COVID-19 in adults under an EUA. For more information on EUA, see the What is an Emergency Use Authorization (EUA)? section at the end of this Fact Sheet. LAGEVRIO is not authorized: for use in people less than 18 years of age. for prevention of COVID-19. for people needing hospitalization for COVID-19. for use for longer than 5 consecutive days. What should I tell my healthcare provider before I take LAGEVRIO? Tell your healthcare provider if you: have any allergies are or plan to breastfeed have any serious illnesses Take any medicines including prescription, qtrz-har-txwugot medicines, vitamins, and herbal products. How do I take LAGEVRIO? Take LAGEVRIO exactly as your healthcare provider tells you to take it. Take 4 capsules of LAGEVRIO every 12 hours (for example, at 8 am and at 8 pm) Take LAGEVRIO for 5 days. It is important that you complete the full 5 days of treatment with LAGEVRIO. Do not stop taking LAGEVRIO before you complete the full 5 days of treatment, even if you feel better. Take LAGEVRIO with or without food. You should stay in isolation for as long as your healthcare provider tells you to. Talk to your healthcare provider if you are not sure about how to properly isolate while you have COVID-19. Swallow LAGEVRIO capsules whole. Do not open, break, or crush the capsules. If you cannot swallow capsules whole, tell your healthcare provider. If your healthcare provider prescribes LAGEVRIO and tells you to take or give a dose through a nasogastric (NG) or orogastric (OG) tube, follow the instructions below: How to take or give a dose of LAGEVRIO through a nasogastric (NG) or orogastric (OG) feeding tube. You must have an NG or OG that is size 12 Macedonian (FR) or larger. If you miss a dose of LAGEVRIO: If it has been less than 10 hours since the missed dose, take it as soon as you remember. If it has been more than 10 hours since the missed dose, skip the missed dose and take your dose at the next scheduled time. Do not double the dose of LAGEVRIO to make up for a missed dose. How to take or give a dose of LAGEVRIO through a nasogastric (NG) or orogastric (OG) feeding tube: Wash your hands well with soap and water. Gather the supplies you will need to take or give the prescribed dose of LAGEVRIO. 4 LAGEVRIO capsules 1 liquid measuring cup with mL markings to measure 40 mL of room temperature water 1 clean container with a lid 1 catheter tip syringe. Your healthcare provider should tell you what size catheter tip syringe you will need to take or give a dose of LAGEVRIO. Place the needed supplies on a clean work surface. Follow your healthcare provider s instructions on how to flush the NG or OG feeding tube. Flush the NG or OG feeding tube with 5 mL of water before taking or giving a dose of LAGEVRIO. Carefully open 4 LAGEVRIO capsules, one at a time, and empty the contents into a clean container. Use the liquid measuring cup to measure 40 mL of room temperature water and add to the container containing the capsule contents. Place the lid on the container. Shake to mix the capsule contents and water well for 3 minutes. The capsule contents may not dissolve completely. Remove the lid from the container and draw up all the LAGEVRIO and water mixture into a catheter tip syringe. Give all of the mixture right away through the NG or OG feeding tube. Do not keep the mixture for future use. If any capsule contents are left in the container: Add 10 mL of water to the container, and mix to loosen any capsule contents that are left in the container. Use the catheter tip syringe to draw up all of the mixture in the container. Give the mixture through the NG or OG feeding tube. Repeat this process as needed until you no longer see any capsule contents left in the container or catheter tip syringe. Use the same catheter tip syringe to flush the NG or OG feeding tube 2 times with 5 mL of water (10mL total). Rinse the container, lid and catheter tip syringe well with clean water after use. Place on a clean paper towel until next use. What are the important possible side effects of LAGEVRIO? See, What is the most important information I should know about LAGEVRIO? Allergic Reactions. Allergic reactions can happen in people taking LAGEVRIO, even after only 1 dose. Stop taking LAGEVRIO and call your healthcare provider right away if you get any of the following symptoms of an allergic reaction: hives rapid heartbeat trouble swallowing or breathing swelling of the mouth, lips, or face throat tightness hoarseness skin rash The most common side effects of LAGEVRIO are: diarrhea nausea dizziness These are not all the possible side effects of LAGEVRIO. Not many people have taken LAGEVRIO. Serious and unexpected side effects may happen. This medicine is still being studied, so it is possible that all of the risks are not known at this time. What other treatment choices are there? Veklury (remdesivir) is FDA-approved as an intravenous (IV) infusion for the treatment of mildto-moderate COVID-19 in certain adults and children. Talk with your doctor to see if Veklury is appropriate for you. Like LAGEVRIO, FDA may also allow for the emergency use of other medicines to treat people with COVID-19. Go to https://www.fda.gov/emergency-pre qxdbuedhh-ppp-jdxajltz/mcm-legalr hwjbdlzhq-qmp-jdseqo-framework/em vgugnrg-zny-gfflpdvqhzilz for more information. It is your choice to be treated or not to be treated with LAGEVRIO. Should you decide not to take it, it will not change your standard medical care. What if I am ? is not recommended during treatment with LAGEVRIO and for 4 days after the last dose of LAGEVRIO. If you are or plan to breastfeed, talk to your healthcare provider about your options and specific situation before taking LAGEVRIO. How do I report side effects with LAGEVRIO? Contact your healthcare provider if you have any side effects that bother you or do not go away. Report side effects to FDA MedWatch at www.fda.gov/medwatch or call 4-365-FEN-9597 (1288.112.6715). How should I store LAGEVRIO? Store LAGEVRIO capsules at room temperature between 68 F to 77 F (20 C to 25 C). Keep LAGEVRIO and all medicines out of the reach of children. How can I learn more about COVID-19? Ask your healthcare provider. Visit www.cdc.gov/COVID19 Contact your local or state public health department. Call [employer] at (toll free in the [place] Visit www.[employer] What Is an Emergency Use Authorization (EUA)? [facility] FDA has made LAGEVRIO available under an emergency access mechanism called an Emergency Use Authorization (EUA) The EUA is supported by a [place] of Health and Human Service ([facility]) declaration that circumstances exist to justify emergency use of drugs and biological products during the COVID-19 pandemic. LAGEVRIO for the treatment of adults with a current diagnosis of wfus-ua-bfrsqyim COVID-19 who are at high risk for progression to severe COVID-19, including hospitalization or , and for whom alternative COVID-19 treatment options approved or authorized by FDA are not accessible or clinically appropriate, has not undergone the same type of review as an FDAapproved product. In issuing an EUA under the COVID-19 public health emergency, the FDA has determined, among other things, that based on the total amount of scientific evidence available including data from adequate and well-controlled clinical trials, if available, it is reasonable to believe that the product may be effective for diagnosing, treating, or preventing COVID-19, or a serious or life-threatening disease or condition caused by COVID-19; that the known and potential benefits of the product, when used to diagnose, treat, or prevent such disease or condition, outweigh the known and potential risks of such product; and that there are no adequate, approved, and available alternatives. All of these criteria must be met to allow for the product to be used in the treatment of patients during the COVID-19 pandemic. The EUA for LAGEVRIO is in effect for the duration of the COVID-19 declaration justifying emergency use of LAGEVRIO, unless terminated or revoked (after which LAGEVRIO may no longer be used under the EUA). [employer]osseline. for: [employer] [address] For patent information: www.[employer]/research/patent Copyright [employer] [place], [place], [place] and its affiliates. All rights reserved. [id number] Revised: December 2022 documented in this encounter [facility] 08-10-2023 Miscellaneous Notes I called and discussed oral medication and treatment and she had an interaction with her simvastatin so molnupiravir was sent in. Patient sent EA U through her MyChart. Agreeable with plan. Molnupiravir Eligibility and Patient Discussion [facility] Formulary Restriction Criteria: Adult outpatients 18 years and older with ALL of the following: [x] Patient has symptoms for 5 days or less [x] Not requiring hospitalization at any time for management of COVID-19 [] Not requiring supplemental oxygen or a change in baseline supplemental oxygen [x] Not utilized for pre-exposure or post-exposure prophylaxis for prevention of COVID-19 [] Patient is not or lactating [x] Meeting at least one of the criteria for high risk of progression to severe COVID-19: [x] Age over 65 years [] Cancer [] Chronic kidney disease [] Chronic liver disease [] Chronic lung diseases, including cystic fibrosis [] Dementia or other neurological conditions [] Diabetes (type 1 or type 2) [] Disabilities, including Down syndrome and neurodevelopmental disorders [] Heart conditions [] HIV infection [] Immunocompromised state [] Mental health conditions [] Medical related technological dependence (tracheostomy, gastrostomy, or positive pressure ventilation (not related to COVID) [] Overweight and obesity (BMI greater or equal to 25 for adults) [] Physical inactivity [] Sickle cell disease or thalassemia [] Smoking, current or former [] Solid organ or blood stem cell transplant [] Stroke or cerebrovascular disease [] Substance use disorders [] Tuberculosis [] People from racial and ethnic minority groups Criteria above are met: Yes Date of Symptom Onset: 08/06/23 Patient received COVID vaccine: No / status reviewed: Females: [x] Patient is not currently and there is no possibility the patient could be (select one of the following): [x] test does not need to be confirmed in patients who have undergone permanent sterilization, are currently using an intrauterine system or contraceptive implant, or in whom is not possible. [] Patients not meeting conditions above: assess whether the patient is based on the first day of the last menstrual period in individuals who have regular menstrual cycles, is using reliable method of contraception correctly and consistently or have had a negative test [] A test is recommended if the individual has irregular menstrual cycles, is unsure of the first day of the last menstrual period or is not using effective contraception correctly and consistently [] Patient is not currently . is not recommended during treatment and for four days after final dose of molnupiravir. [] Females have been advised to use a reliable method of contraception correctly and consistently for the duration of treatment and for four days after the last dose of molnupiravir Males: [] Sexually active male with partner(s) of childbearing potential has been advised to use a reliable method of contraception correctly and consistently for intercourse for the duration of treatment and for three months after the last dose of molnupiravir I have discussed the use of the investigational therapeutic, molnupiravir, for the treatment of mild to moderate COVID-19 and its use under Emergency Use Authorization with the patient. The patient was informed that molnupiravir is not an FDA approved drug and that it is authorized for use under this Emergency Use Authorization. The patient was also informed of the significant known benefits and potential risks of molnupiravir, and the extent to which such potential risks and benefits are unknown. The patient was informed that there is mandatory reporting of all medication errors and serious adverse events potentially related to molnupiravir treatment within 7 calendar days from the onset of the event and that events up to 28 days after completion of therapy need to be reported. The discussion included alternatives to receiving molnupiravir, including clinical trials, and potential the risks and benefits of those alternatives. The patient was provided electronically with the Fact Sheet for Patients, Parents and Caregivers . The patient was also instructed that in addition to the treatment with molnupiravir, he/she should continue to self-isolate and use infection control measures (e.g., wear mask, isolate, social distance, avoid sharing personal items, clean and disinfect high touch surfaces, and frequent handwashing) according to CDC guidelines. The patient stated understanding and gave verbal consent to proceeding with molnupiravir treatment. Ruby Garza PA-C August 10, 2023 8:55 AM I called and left message with patient to return call. If she calls back she is positive for COVID-19. If she is interested in oral antiviral treatment she is in the window for this. I can speak with her if she is interested in this medication when she calls back. documented in this encounter [facility] 08-09-2023 Note HNO ID: [id number] Author: Jessica Badillo APRN.CONTRACT ANALYST Service: ? Author Type: Nurse Practitioner Type: Progress Notes Filed: 08/09/2023 8:20 AM Note Text: Subjective The history is provided by the patient. No sales assistant entertainment and media was used. HPI Norma Ferris is a 77 year old female who presents today for CC of cough, fever, sore throat, congestion for 2 days. She has used otc cough medication without relief. 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 H/o pleurisy BP 143/95 Pulse (!) 126 Temp 37.6 ?C (99.6 ?F) Resp 18 Wt 63 kg (139 lb) SpO2 96% BMI 25.22 kg/m? Social History Tobacco Use Smoking status: Never Smokeless tobacco: Never Tobacco comments: No smoking in childhood home. No significant ETS in household since. Substance Use Topics Alcohol use: Yes Alcohol/week: 5.0 standard drinks of alcohol Types: 2 Glasses of Wine (5oz) per week Comment: Socially. Drug use: No PAST MEDICAL HISTORY Diagnosis Date Advance directive discussed with patient 01/16/2023 Discussed 01/2023: up to date Saravia's esophagus without dysplasia 05/06/[address] 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 Duarte at [facility]. 08/18/[address] Fischer at [place] Chronic throat clearing 02/01/2018 Diaphragmatic hernia Hiatal hernia Ectopic gastric mucosa of multiple sites 05/06/[address] Granado 04/2022 Elevated fasting blood sugar 08/14/2018 Encounter for gynecological examination without abnormal finding 07/20/2016 Sees [facility]. Essential hypertension 07/20/2016 GERD without esophagitis 01/14/2008 Hemorrhoids 03/03/2017 History of recurrent UTIs 07/19/2018 History of subdural hematoma 03/03/2017 After a fall Lichen sclerosus et atrophicus 03/03/2017 Living will on file at physician's office 01/16/2023 DPA: Nate (Son) Lumbago 03/21/[address] Duarte at [facility]. Medicare annual wellness visit, subsequent 08/14/2018 Medicare Part B: 06/06/2008 last done: 08/23/2019 Migraine without aura and without status migrainosus, not intractable 07/20/2016 Mixed hyperlipidemia 01/14/2008 Postmenopausal atrophic vaginitis 06/06/2012 Pulmonary nodules 10/03/201609/2016, follow uo CT in a year, 08/[address] Zheng Right thyroid nodule 10/03/2016 Had benign biopsy 09/2016 at [facility] Seasonal allergies 07/20/2016 Spinal stenosis, lumbar region, without neurogenic claudication 03/21/2012 I have confirmed and edited as necessary, the [facility] Review of Systems Constitutional: Negative for chills and fever. HENT: Positive for congestion, sinus pain and sore throat. Negative for ear pain. Respiratory: Positive for cough. Negative for sputum production, shortness of breath and wheezing. Cardiovascular: Negative for chest pain. Gastrointestinal: Negative for abdominal pain, diarrhea, nausea and vomiting. Musculoskeletal: Negative for myalgias. Neurological: Negative for headaches. Objective Physical Exam Vitals and nursing note reviewed. HENT: Head: Normocephalic and atraumatic. Right Ear: Tympanic membrane, ear canal and external ear normal. Left Ear: Tympanic membrane, ear canal and external ear normal. Nose: Mucosal edema, congestion and rhinorrhea present. Right Sinus: No maxillary sinus tenderness or frontal sinus tenderness. Left Sinus: No maxillary sinus tenderness or frontal sinus tenderness. Mouth/Throat: Pharynx: Uvula midline. Posterior oropharyngeal erythema (mild) present. No oropharyngeal exudate. Cardiovascular: Rate and Rhythm: Normal rate and regular rhythm. Heart sounds: Normal heart sounds. Pulmonary: Effort: Pulmonary effort is normal. Breath sounds: Normal breath sounds. Lymphadenopathy: Head: Right side of head: No submental, submandibular or tonsillar adenopathy. Left side of head: No submental, submandibular or tonsillar adenopathy. Cervical: No cervical adenopathy. Skin: General: Skin is warm and dry. Neurological: Mental Status: She is alert. Psychiatric: Mood and Affect: Affect normal. ASSESSMENT/PLAN: 1. URI with cough and congestion - ICD9: 465.9, ICD10: J06.9 - Discussed viral etiology and rationale for treatment. - Symptomatic treatment with prn analgesia - Supportive care with fluids and rest - Home isolation Testing ordered Comfort measures discussed - see patient instructions. When to seek higher level of care Notified in 12-24 hours with results, available on [facility] Prednisone 40 mg (2-20mg tablets) po QD for 5 days Tessalon Perles - COVID AND INFLUENZA A/B AND RSV NAAT, ROUTINE - COVID NAAT, UPPER RESPIRATORY, ROUTINE - ROUTINE FLU A/B + RSV Diagnosis and treatment plan were discussed and questions were answered to the patient's satisfaction. Pt acknowledged understanding of concepts and follow up plan. Specific signs and (more content not included)... [facility] 08-09-2023 Instructions Jessica Badillo APRN.KATIE - 08/09/2023 8:20 AM EDT covid and influenza test ordered You will be notified in 12-24 hours, results available on [facility] Home isolation until results are back Rest, increase water intake Motrin or Tylenol as needed for fever or pain. Salt water gargles, chloraseptic spray or lozenges as needed for sore throat. Warm beverages, honey. Nasal saline spray as needed Cool mist humidifier at night Tylenol (generic acetaminophen) 500 mg-2 tabs every 8 hrs. as needed for fever and aches -Mucinex (generic is fine) Guaifenesin 1200 mg twice daily to help with cough and to thin out mucus Tessalon Perles 2 every 8 hours, do not combine this with robitussin or delsym Start prednisone as discussed Follow up with Dr. Bonilla if covid positive * Seek medical care immediately, call 911, go to ER if you have chest pain, difficulty breathing, shortness of breath, inability to swallow. documented in this encounter [facility] 08-09-2023 History of Present illness Narrative Subjective The history is provided by the patient. No sales assistant entertainment and media was used. HPI Norma Ferris is a 77 year old female who presents today for CC of cough, fever, sore throat, congestion for 2 days. She has used otc cough medication without relief. 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 H/o pleurisy BP 143/95 Pulse (!) 126 Temp 37.6 C (99.6 F) Resp 18 Wt 63 kg (139 lb) SpO2 96% BMI 25.22 kg/m Social History Tobacco Use Smoking status: Never Smokeless tobacco: Never Tobacco comments: No smoking in childhood home. No significant ETS in household since. Substance Use Topics Alcohol use: Yes Alcohol/week: 5.0 standard drinks of alcohol Types: 2 Glasses of Wine (5oz) per week Comment: Socially. Drug use: No PAST MEDICAL HISTORY Diagnosis Date Advance directive discussed with patient 01/16/2023 Discussed 01/2023: up to date Saravia's esophagus without dysplasia 05/06/[address] 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 Duarte at [facility]. 08/18/[address] Fischer at [facility] throat clearing 02/01/2018 Diaphragmatic hernia Hiatal hernia Ectopic gastric mucosa of multiple sites 05/06/[address] Granado 04/2022 Elevated fasting blood sugar 08/14/2018 Encounter for gynecological examination without abnormal finding 07/20/2016 Sees [facility]. Essential hypertension 07/20/2016 GERD without esophagitis 01/14/2008 Hemorrhoids 03/03/2017 History of recurrent UTIs 07/19/2018 History of subdural hematoma 03/03/2017 After a fall Lichen sclerosus et atrophicus 03/03/2017 Living will on file at physician's office 01/16/2023 DPA: Nate (Son) Lumbago 03/21/[address] Duarte at [facility]. Medicare annual wellness visit, subsequent 08/14/2018 Medicare Part B: 06/06/2008 last done: 08/23/2019 Migraine without aura and without status migrainosus, not intractable 07/20/2016 Mixed hyperlipidemia 01/14/2008 Postmenopausal atrophic vaginitis 06/06/2012 Pulmonary nodules 10/03/201609/2016, follow uo CT in a year, 08/[address] Zheng Right thyroid nodule 10/03/2016 Had benign biopsy 09/2016 at [facility] Seasonal allergies 07/20/2016 Spinal stenosis, lumbar region, without neurogenic claudication 03/21/2012 I have confirmed and edited as necessary, the [facility] Review of Systems Constitutional: Negative for chills and fever. HENT: Positive for congestion, sinus pain and sore throat. Negative for ear pain. Respiratory: Positive for cough. Negative for sputum production, shortness of breath and wheezing. Cardiovascular: Negative for chest pain. Gastrointestinal: Negative for abdominal pain, diarrhea, nausea and vomiting. Musculoskeletal: Negative for myalgias. Neurological: Negative for headaches. Objective Physical Exam Vitals and nursing note reviewed. HENT: Head: Normocephalic and atraumatic. Right Ear: Tympanic membrane, ear canal and external ear normal. Left Ear: Tympanic membrane, ear canal and external ear normal. Nose: Mucosal edema, congestion and rhinorrhea present. Right Sinus: No maxillary sinus tenderness or frontal sinus tenderness. Left Sinus: No maxillary sinus tenderness or frontal sinus tenderness. Mouth/Throat: Pharynx: Uvula midline. Posterior oropharyngeal erythema (mild) present. No oropharyngeal exudate. Cardiovascular: Rate and Rhythm: Normal rate and regular rhythm. Heart sounds: Normal heart sounds. Pulmonary: Effort: Pulmonary effort is normal. Breath sounds: Normal breath sounds. Lymphadenopathy: Head: Right side of head: No submental, submandibular or tonsillar adenopathy. Left side of head: No submental, submandibular or tonsillar adenopathy. Cervical: No cervical adenopathy. Skin: General: Skin is warm and dry. Neurological: Mental Status: She is alert. Psychiatric: Mood and Affect: Affect normal. ASSESSMENT/PLAN: 1. URI with cough and congestion - ICD9: 465.9, ICD10: J06.9 - Discussed viral etiology and rationale for treatment. - Symptomatic treatment with prn analgesia - Supportive care with fluids and rest - Home isolation Testing ordered Comfort measures discussed - see patient instructions. When to seek higher level of care Notified in 12-24 hours with results, available on [facility] Prednisone 40 mg (2-20mg tablets) po QD for 5 days Tessalon Perles - COVID & INFLUENZA A/B & RSV NAAT, ROUTINE - COVID NAAT, UPPER RESPIRATORY, ROUTINE - ROUTINE FLU A/B + RSV Diagnosis and treatment plan were discussed and questions were answered to the patient's satisfaction. Pt acknowledged understanding of concepts and follow up plan. Specific signs and symptoms that would indicate the need for higher level of care were discussed in detail warranting prompt ER evaluation. Jessica Badillo APRN.KATIE documented in this encounter [facility] 07-19-2023 Note HNO ID: [id number] Author: Jaycob Bonilla MD Service: ? Author Type: Physician Type: Progress Notes Filed: 07/23/2023 2:20 PM Note Text: Chief Complaint Patient presents with: F/U 6 months HPI Norma Ferris is a 77 year old female who presents here today for 6 month follow up. Patient with Hx of HTN, elevated fasting blood sugar. GERD, hyperlipidemia, Chronic back pain, frequent UTI's, seasonal allergies as well as those reviewed and addressed below and in ROS. Patient has been doing ok. Gastro feels throat clearing is due to GERD. She did have an ablation in Dec 2022. Patient see Urology - Dr Suazo 06/07/2023. Patient indicated that she still having issues with clearing her throat. Past medical history, appointments, medications, allergies reviewed. 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 Duarte at [facility]. 08/18/[address] Fischer at [place] Chronic throat clearing 02/01/2018 Diaphragmatic hernia Hiatal hernia Ectopic gastric mucosa of multiple sites 05/06/[address] Granado 04/2022 Elevated fasting blood sugar 08/14/2018 Encounter for gynecological examination without abnormal finding 07/20/2016 [facility]. Essential hypertension 07/20/2016 GERD without esophagitis 01/14/2008 Hemorrhoids 03/03/2017 History of recurrent UTIs 07/19/2018 History of subdural hematoma 03/03/2017 After a fall Lichen sclerosus et atrophicus 03/03/2017 Living will on file at physician's office 01/16/2023 DPA: Nate (Son) Lumbago 03/21/[address] Duarte at [facility]. Medicare annual wellness visit, subsequent 08/14/2018 Medicare Part B: 06/06/2008 last done: 08/23/2019 Migraine without aura and without status migrainosus, not intractable 07/20/2016 Mixed hyperlipidemia 01/14/2008 Postmenopausal atrophic vaginitis 06/06/2012 Pulmonary nodules 10/03/201609/2016, follow uo CT in a year, 08/[address] Zheng Right thyroid nodule 10/03/2016 Had benign biopsy 09/2016 at [facility] Seasonal allergies 07/20/2016 Spinal stenosis, lumbar region, without neurogenic claudication 03/21/2012 Previous Surgical History PAST SURGICAL HISTORY Procedure Laterality Date 2D ECHO (EXEP) 09/2016 EF=65%, mild 1+ MR, TR APPENDECTOMY BACK SURGERY HX BRAIN SURGERY HX 1999 Brain bleed COLONOSCOPY 04/29/2013 Dr. Lu, repeat 10 years ESOPHAGOGASTRODUODENOSCOPY TRANSORAL DIAGNOSTIC 06/22/2020 EGD FECAL OCCULT BLOOD TEST 10/27/2021 negative HEMORRHOIDECTOMY XTRNL 2/> COLUMN/GROUP LAPAROSCOPY SURG CHOLECYSTECTOMY 2002 Cholecystectomy, lap PAST SURGICAL HISTORY OF 1995 bladder suspension PAST SURGICAL HISTORY OF 2003 TVT and subsquent collagen injection PAST SURGICAL HISTORY OF 02/2012 back surgery for spinal stenosis PAST SURGICAL HISTORY OF 07/2016 had lumbar hardware removed, cleaned up DDD lumbar spine PAST SURGICAL HISTORY OF 1999 Hematoma head PAST SURGICAL HISTORY OF 12/2022 esophageal ablation STRESS ECHO 10/29/2019 norml SUBTEMPORAL CRANIAL DECOMPRESSION 1999 TOTAL ABDOMINAL HYSTERECT W/WO RMVL TUBE OVARY 1987 Hysterectomy, FUAD/BSO VAGINAL HYSTERECTOMY Family History FAMILY HISTORY Problem Relation Age of Onset Coronary Artery Disease Mother Fatal SD in her 80s Diabetes Father ADULT ONSET Coronary Artery Disease Father in his 80s Hypertension Brother Coronary Artery Disease Brother 56 Prostate Cancer Brother COPD No Family History No lung cancer. Patient Allergies ALLERGIES Allergen Reactions Teja Inhibitors Cough Carafate [Sucralfat* Diarrhea Environmental [Othe* Unknown Omeprazole Other: See Comments Caused stomach pain. Protonix [Pantopraz* Other: See Comments Stomach pain- Current Medications Current Outpatient Medications on File Prior to Visit Medication Sig phenazopyridine (PYRIDIUM) 200 mg tablet Take by mouth. lansoprazole (PREVACID) 30 mg capsule Take 30 mg by mouth once daily. Take 1 tablet in the AM pantoprazole DR (PROTONIX) 40 mg tablet Take 40 mg by mouth once daily. Take one tablet in PM simvastatin (ZOCOR) 10 mg tablet Take 1 tablet by mouth daily at bedtime. SUMAtriptan (IMITREX) 100 mg tablet Take one tab by month with onset of headache. Can repeat in 2 hrs. Max of 2 tabs in 24 hrs fluticasone (FLONASE) 50 mcg/actuation nasal spray Use 2 Sprays in each nostril as needed. Rinse mouth after use. Ascorbic Acid 1,000 mg tablet Take 1,000 mg by mouth once daily. Methenamine Hippurate (HIPREX) 1 gram tablet TAKE 1 TABLET BY MOUTH ONCE DAILY AT BEDTIME WITH VITAMIN C 1000MG FOR UTI PREVENTION No current facility-administered medications on file prior to vi (more content not included)... [facility] 07-19-2023 History of Present illness Narrative Chief Complaint Patient presents with: F/U 6 months HPI Norma Ferris is a 77 year old female who presents here today for 6 month follow up. Patient with Hx of HTN, elevated fasting blood sugar. GERD, hyperlipidemia, Chronic back pain, frequent UTI's, seasonal allergies as well as those reviewed and addressed below and in ROS. Patient has been doing ok. Gastro feels throat clearing is due to GERD. She did have an ablation in Dec 2022. Patient see Urology - Dr Suazo 06/07/2023. Patient indicated that she still having issues with clearing her throat. Past medical history, appointments, medications, allergies reviewed. 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 Duarte at [facility]. 08/18/[address] Fischer at [place] Chronic throat clearing 02/01/2018 Diaphragmatic hernia Hiatal hernia Ectopic gastric mucosa of multiple sites 05/06/[address] Granado 04/2022 Elevated fasting blood sugar 08/14/2018 Encounter for gynecological examination without abnormal finding 07/20/2016 Sees [facility]. Essential hypertension 07/20/2016 GERD without esophagitis 01/14/2008 Hemorrhoids 03/03/2017 History of recurrent UTIs 07/19/2018 History of subdural hematoma 03/03/2017 After a fall Lichen sclerosus et atrophicus 03/03/2017 Living will on file at physician's office 01/16/2023 DPA: Nate (Son) Lumbago 03/21/[address] Duarte at [facility]. Medicare annual wellness visit, subsequent 08/14/2018 Medicare Part B: 06/06/2008 last done: 08/23/2019 Migraine without aura and without status migrainosus, not intractable 07/20/2016 Mixed hyperlipidemia 01/14/2008 Postmenopausal atrophic vaginitis 06/06/2012 Pulmonary nodules 10/03/201609/2016, follow uo CT in a year, 08/[address] Zheng Right thyroid nodule 10/03/2016 Had benign biopsy 09/2016 at [facility] Seasonal allergies 07/20/2016 Spinal stenosis, lumbar region, without neurogenic claudication 03/21/2012 Previous Surgical History PAST SURGICAL HISTORY Procedure Laterality Date 2D ECHO (EXEP) 09/2016 EF=65%, mild 1+ MR, TR APPENDECTOMY BACK SURGERY HX BRAIN SURGERY HX 2000 Brain bleed COLONOSCOPY 04/29/2013 Dr. Lu, repeat 10 years ESOPHAGOGASTRODUODENOSCOPY TRANSORAL DIAGNOSTIC 06/22/2020 EGD FECAL OCCULT BLOOD TEST 10/27/2021 negative HEMORRHOIDECTOMY XTRNL 2/> COLUMN/GROUP LAPAROSCOPY SURG CHOLECYSTECTOMY 2002 Cholecystectomy, lap PAST SURGICAL HISTORY OF 1995 bladder suspension PAST SURGICAL HISTORY OF 2003 TVT and subsquent collagen injection PAST SURGICAL HISTORY OF 02/2012 back surgery for spinal stenosis PAST SURGICAL HISTORY OF 07/2016 had lumbar hardware removed, cleaned up DDD lumbar spine PAST SURGICAL HISTORY OF 1999 Hematoma head PAST SURGICAL HISTORY OF 12/2022 esophageal ablation STRESS ECHO 10/29/2019 norml SUBTEMPORAL CRANIAL DECOMPRESSION 1999 TOTAL ABDOMINAL HYSTERECT W/WO RMVL TUBE OVARY 1988 Hysterectomy, FUAD/BSO VAGINAL HYSTERECTOMY Family History FAMILY HISTORY Problem Relation Age of Onset Coronary Artery Disease Mother Fatal SD in her 80s Diabetes Father ADULT ONSET Coronary Artery Disease Father in his 80s Hypertension Brother Coronary Artery Disease Brother 56 Prostate Cancer Brother COPD No Family History No lung cancer. Patient Allergies ALLERGIES Allergen Reactions Teja Inhibitors Cough Carafate [Sucralfat* Diarrhea Environmental [Othe* Unknown Omeprazole Other: See Comments Caused stomach pain. Protonix [Pantopraz* Other: See Comments Stomach pain- Current Medications Current Outpatient Medications on File Prior to Visit Medication Sig phenazopyridine (PYRIDIUM) 200 mg tablet Take by mouth. lansoprazole (PREVACID) 30 mg capsule Take 30 mg by mouth once daily. Take 1 tablet in the AM pantoprazole DR (PROTONIX) 40 mg tablet Take 40 mg by mouth once daily. Take one tablet in PM simvastatin (ZOCOR) 10 mg tablet Take 1 tablet by mouth daily at bedtime. SUMAtriptan (IMITREX) 100 mg tablet Take one tab by month with onset of headache. Can repeat in 2 hrs. Max of 2 tabs in 24 hrs fluticasone (FLONASE) 50 mcg/actuation nasal spray Use 2 Sprays in each nostril as needed. Rinse mouth after use. Ascorbic Acid 1,000 mg tablet Take 1,000 mg by mouth once daily. Methenamine Hippurate (HIPREX) 1 gram tablet TAKE 1 TABLET BY MOUTH ONCE DAILY AT BEDTIME WITH VITAMIN C 1000MG FOR UTI PREVENTION No current facility-administered medications on file prior to visit. Social History Social History Tobacco Use Smoking status: Never Smokeless tobacco: Never Tobacco comments: No smoking in childhood home. No significant ETS in household since. Substance Use Topics Alcohol use: Yes Alcohol/week: 5.0 standard drinks of alcohol Types: 2 Glasses of Wine (5oz) per week Comment: Socially. Drug use: No Review of Symptoms REVIEW OF SYSTEMS GENERAL: No weight loss, malaise or fevers NECK: Negative for lumps, goiter, pain and significant neck swelling RESPIRATORY: Negative for cough, hemoptysis, wheezing, COPD, dyspnea or shortness of breath CARDIOVASCULAR: Negative for chest pain, leg swelling, hypertension, CHF or palpitations GI: No nausea, vomiting, or diarrhea and No heartburn or reflux symptoms ENDOCRINE: Negative for cold or heat intolerance, polyuria, polydipsia and goiter NEURO: No history of headaches, syncope, paralysis, seizures or tremors EXAM: BP 128/78 Pulse 92 Resp 16 Wt 63 kg (139 lb) BMI 25.22 kg/m General Appearance: Well appearing, alert, in no acute distress, well-hydrated, well nourished.. Neck: Supple, no adenopathy; thyroid symmetric, normal size, no bruits. Lungs: Lungs clear to auscultation. No wheezing, rhonchi, rales.. Heart: RRR without murmur, gallop, or rubs. No ectopy. Abdomen: Normal abdominal exam, Abdomen soft, non-tender. Bowel sounds normal. No masses, organomegaly. Extremities: No deformities, edema, skin discoloration, clubbing or cyanosis. Good capillary refill. . Health Maintenance List Influenza Vaccine(1) due on 07/07/2023 DTaP,Tdap,Td Vaccine(2 - Tdap) due on 01/17/2024 Covid-19 Vaccine(4 - Pfizer series) due on 01/17/2024 Annual PCP Team Chronic Disease Visit due on 01/17/2024 BP Controlled (<130/80) due on 01/17/2024 Fecal Occult Blood due on 01/18/2024 Diabetes Screening due on 07/17/2026 Bone Density Screening Completed Advance Directive Discussion Completed Depression Assessment Completed Shingrix Vaccine Completed Pneumococcal Vaccine: 65+ Completed Colonoscopy Discontinued Data reviewed Component Latest Ref Rng & Units 07/17/2023 Total Cholesterol, Nonfasting <200 mg/dL 213 (H) Triglycerides, Nonfasting <150 mg/dL 112 HDL Cholesterol, Nonfasting >39 mg/dL 72 LDL Cholesterol, Nonfasting <100 mg/dL 119 (H) Non HDL Cholesterol, Nonfasting <130 mg/dL 141 (H) VLDL Cholesterol, Nonfasting <30 mg/dL 22 Total Chol/HDL Ratio, Nonfasting <5.10 mg/dL 2.96 LDL/HDL Ratio, Nonfasting <2.54 mg/dL 1.65 Hemoglobin A1C 4.3 - 5.6 % 5.4 Estimated Average Glucose mg/dL 108 A/P ASSESSMENT/PLAN: 1. Essential hypertension - ICD9: 401.9, ICD10: I10 (primary diagnosis) - Controlled - Continue current medications - Recommend home blood pressure monitoring, to bring results to next visit - Encouraged sodium restriction, DASH or Mediterranean diet - Recommend regular aerobic exercise 2. Mixed hyperlipidemia - ICD9: 272.2, ICD10: E78.2 - Controlled - Continue current medications - Counseled on healthy diet and regular exercise 3. Elevated fasting blood sugar - ICD9: 790.21, ICD10: R73.01 - controlled with life style. 4. GERD without esophagitis - ICD9: 530.81, ICD10: K21.9 - Continue treatment with Prevacid 30 mg QD 5. Saravia's esophagus without dysplasia - ICD9: 530.85, ICD10: K22.70 Cont the prevacid. 6. Migraine without aura and without status migrainosus, not intractable - ICD9: 346.10, ICD10: G43.009 - stable 7. Chronic throat clearing - ICD9: 786.09, ICD10: R09.89 - this may be a tic. Will trial Risperidone. Side affects discussed. Requested Prescriptions Signed Prescriptions Disp Refills simvastatin (ZOCOR) 10 mg tablet 90 tablet 1 Sig: Take 1 tablet by mouth daily at bedtime. risperiDONE (RISPERDAL) 0.25 mg tablet 30 tablet 5 Sig: Take 1 tablet by mouth twice daily. F/u in a month for throat clearing. F/u 6 months extensive check CMP, Lipid, UA, A1c, TSH, CBC Jaycob Bonilla MD documented in this encounter [facility] 06-07-2023 Note HNO ID: [id number] Author: Samanta Flores LPN Service: ? Author Type: ? Type: Progress Notes Filed: 06/07/2023 3:53 PM Note Text: Scan on 06/06/2023 4:00 PM by ProviderMary PA-C: Consultation - [facility] 06-07-2023 History of Present illness Narrative Scan on 06/06/2023 4:00 PM by ProviderMary PA-C: Consultation - documented in this encounter [facility] 05-25-2023 Note HNO ID: [id number] Author: Toya Mcgill APRN.KATIE Service: ? Author Type: Nurse Practitioner Type: Progress Notes Filed: 05/25/2023 2:59 PM Note Text: CC: Patient presents with: Urinary Problem: Pt reported urinary frequency, burning x1-2 wks, recent [facility] ER Visit 05/12/2023, 05/16/2023 completed ATB. HPI Norma Ferris is a 77 year old female who presents with complaint of possible UTI. These symptoms have been present for 14 days. Associated symptoms: burning and frequency Denies: backpain, fever, chills, sweats, abdominal pain, and flank pain Treatments: antibiotics The ROS was otherwise negative. PMH, Medications, labs, allergies, and recent past visits with PCP were reviewed and updated as able. PHYSICAL EXAM: BP 158/94 Pulse 118 Temp 37.3 ?C (99.1 ?F) (Temporal) Resp 18 SpO2 96% General: Well appearing and alert CV: Regular rate and rhythm without obvious murmur Lungs: clear to auscultation bilaterally Back: straight and symmetric Abdomen: soft, nontender, nondistended PAST MEDICAL HISTORY Diagnosis Date Advance directive discussed with patient 01/16/2023 Discussed 01/2023: up to date Saravia's esophagus without dysplasia 05/06/[address] 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 Duarte at [facility]. 08/18/[address] Fischer at [facility] throat clearing 02/01/2018 Diaphragmatic hernia Hiatal hernia Ectopic gastric mucosa of multiple sites 05/06/[address] Granado 04/2022 Elevated fasting blood sugar 08/14/2018 Encounter for gynecological examination without abnormal finding 07/20/2016 Sees [facility]. Essential hypertension 07/20/2016 GERD without esophagitis 01/14/2008 Hemorrhoids 03/03/2017 History of recurrent UTIs 07/19/2018 History of subdural hematoma 03/03/2017 After a fall Lichen sclerosus et atrophicus 03/03/2017 Living will on file at physician's office 01/16/2023 DPA: Nate (Son) Lumbago 03/21/[address] Duarte at [facility]. Medicare annual wellness visit, subsequent 08/14/2018 Medicare Part B: 06/06/2008 last done: 08/23/2019 Migraine without aura and without status migrainosus, not intractable 07/20/2016 Mixed hyperlipidemia 01/14/2008 Postmenopausal atrophic vaginitis 06/06/2012 Pulmonary nodules 10/03/201609/2016, follow uo CT in a year, 08/[address] Zheng Right thyroid nodule 10/03/2016 Had benign biopsy 09/2016 at [facility] Seasonal allergies 07/20/2016 Spinal stenosis, lumbar region, without neurogenic claudication 03/21/2012 PAST SURGICAL HISTORY Procedure Laterality Date 2D ECHO (EXEP) 09/2016 EF=65%, mild 1+ MR, TR APPENDECTOMY BACK SURGERY HX BRAIN SURGERY HX 2000 Brain bleed COLONOSCOPY 04/29/2013 Dr. Lu, repeat 10 years ESOPHAGOGASTRODUODENOSCOPY TRANSORAL DIAGNOSTIC 06/22/2020 EGD FECAL OCCULT BLOOD TEST 10/27/2021 negative HEMORRHOIDECTOMY XTRNL 2/> COLUMN/GROUP LAPAROSCOPY SURG CHOLECYSTECTOMY 2002 Cholecystectomy, lap PAST SURGICAL HISTORY OF 1995 bladder suspension PAST SURGICAL HISTORY OF 2003 TVT and subsquent collagen injection PAST SURGICAL HISTORY OF 02/2012 back surgery for spinal stenosis PAST SURGICAL HISTORY OF 07/2016 had lumbar hardware removed, cleaned up DDD lumbar spine PAST SURGICAL HISTORY OF 1999 Hematoma head PAST SURGICAL HISTORY OF 12/2022 esophageal ablation STRESS ECHO 10/29/2019 norml SUBTEMPORAL CRANIAL DECOMPRESSION 1999 TOTAL ABDOMINAL HYSTERECT W/WO RMVL TUBE OVARY 1987 Hysterectomy, FUAD/BSO VAGINAL HYSTERECTOMY ALLERGIES Teja Inhibitors, Carafate [Sucralfate], Environmental [Other], Omeprazole, and Protonix [Pantoprazole] MEDICATIONS phenazopyridine (PYRIDIUM) 200 mg tablet Take by mouth. lansoprazole (PREVACID) 30 mg capsule Take 30 mg by mouth once daily. Take 1 tablet in the AM pantoprazole DR (PROTONIX) 40 mg tablet Take 40 mg by mouth once daily. Take one tablet in PM simvastatin (ZOCOR) 10 mg tablet Take 1 tablet by mouth daily at bedtime. SUMAtriptan (IMITREX) 100 mg tablet Take one tab by month with onset of headache. Can repeat in 2 hrs. Max of 2 tabs in 24 hrs fluticasone (FLONASE) 50 mcg/actuation nasal spray Use 2 Sprays in each nostril as needed. Rinse mouth after use. Ascorbic Acid 1,000 mg tablet Take 1,000 mg by mouth once daily. Methenamine Hippurate (HIPREX) 1 gram tablet TAKE 1 TABLET BY MOUTH ONCE DAILY AT BEDTIME WITH VITAMIN C 1000MG FOR UTI PREVENTION nitrofurantoin monohydrate and macrocrystal (MACROBID) 100 mg capsule Take 1 capsule by mouth twice daily for 5 days. FAMILY HISTORY Problem Relation Age of Onset Coronary Artery Disease Mother Fatal SD in her 80s Diabetes Father ADULT ONSET Coronary Artery Disease Father in his 80s Hypertension Brother Coronary Artery Disease Brother 56 Prostate Cancer Brother COPD No Family History No l (more content not included)... [facility] 05-25-2023 History of Present illness Narrative CC: Patient presents with: Urinary Problem: Pt reported urinary frequency, burning x1-2 wks, recent [facility] ER Visit 05/12/2023, 05/16/2023 completed ATB. HPI Norma Ferris is a 77 year old female who presents with complaint of possible UTI. These symptoms have been present for 14 days. Associated symptoms: burning and frequency Denies: backpain, fever, chills, sweats, abdominal pain, and flank pain Treatments: antibiotics The ROS was otherwise negative. PMH, Medications, labs, allergies, and recent past visits with PCP were reviewed and updated as able. PHYSICAL EXAM: BP 158/94 Pulse 118 Temp 37.3 C (99.1 F) (Temporal) Resp 18 SpO2 96% General: Well appearing and alert CV: Regular rate and rhythm without obvious murmur Lungs: clear to auscultation bilaterally Back: straight and symmetric Abdomen: soft, nontender, nondistended PAST MEDICAL HISTORY Diagnosis Date Advance directive discussed with patient 01/16/2023 Discussed 01/2023: up to date Saravia's esophagus without dysplasia 05/06/[address] 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 Duarte at [facility]. 08/18/[address] Fischer at [place] Chronic throat clearing 02/01/2018 Diaphragmatic hernia Hiatal hernia Ectopic gastric mucosa of multiple sites 05/06/[address] Granado 04/2022 Elevated fasting blood sugar 08/14/2018 Encounter for gynecological examination without abnormal finding 07/20/2016 Sees [facility]. Essential hypertension 07/20/2016 GERD without esophagitis 01/14/2008 Hemorrhoids 03/03/2017 History of recurrent UTIs 07/19/2018 History of subdural hematoma 03/03/2017 After a fall Lichen sclerosus et atrophicus 03/03/2017 Living will on file at physician's office 01/16/2023 DPA: Nate (Son) Lumbago 03/21/[address] Duarte at [facility]. Medicare annual wellness visit, subsequent 08/14/2018 Medicare Part B: 06/06/2008 last done: 08/23/2019 Migraine without aura and without status migrainosus, not intractable 07/20/2016 Mixed hyperlipidemia 01/14/2008 Postmenopausal atrophic vaginitis 06/06/2012 Pulmonary nodules 10/03/201609/2016, follow uo CT in a year, 08/[address] Zheng Right thyroid nodule 10/03/2016 Had benign biopsy 09/2016 at [facility] Seasonal allergies 07/20/2016 Spinal stenosis, lumbar region, without neurogenic claudication 03/21/2012 PAST SURGICAL HISTORY Procedure Laterality Date 2D ECHO (EXEP) 09/2016 EF=65%, mild 1+ MR, TR APPENDECTOMY BACK SURGERY HX BRAIN SURGERY HX 2000 Brain bleed COLONOSCOPY 04/29/2013 Dr. Lu, repeat 10 years ESOPHAGOGASTRODUODENOSCOPY TRANSORAL DIAGNOSTIC 06/22/2020 EGD FECAL OCCULT BLOOD TEST 10/27/2021 negative HEMORRHOIDECTOMY XTRNL 2/> COLUMN/GROUP LAPAROSCOPY SURG CHOLECYSTECTOMY 2002 Cholecystectomy, lap PAST SURGICAL HISTORY OF 1995 bladder suspension PAST SURGICAL HISTORY OF 2003 TVT and subsquent collagen injection PAST SURGICAL HISTORY OF 02/2012 back surgery for spinal stenosis PAST SURGICAL HISTORY OF 07/2016 had lumbar hardware removed, cleaned up DDD lumbar spine PAST SURGICAL HISTORY OF 1999 Hematoma head PAST SURGICAL HISTORY OF 12/2022 esophageal ablation STRESS ECHO 10/29/2019 norml SUBTEMPORAL CRANIAL DECOMPRESSION 1999 TOTAL ABDOMINAL HYSTERECT W/WO RMVL TUBE OVARY 1987 Hysterectomy, FUAD/BSO VAGINAL HYSTERECTOMY ALLERGIES Teja Inhibitors, Carafate [Sucralfate], Environmental [Other], Omeprazole, and Protonix [Pantoprazole] MEDICATIONS phenazopyridine (PYRIDIUM) 200 mg tablet Take by mouth. lansoprazole (PREVACID) 30 mg capsule Take 30 mg by mouth once daily. Take 1 tablet in the AM pantoprazole DR (PROTONIX) 40 mg tablet Take 40 mg by mouth once daily. Take one tablet in PM simvastatin (ZOCOR) 10 mg tablet Take 1 tablet by mouth daily at bedtime. SUMAtriptan (IMITREX) 100 mg tablet Take one tab by month with onset of headache. Can repeat in 2 hrs. Max of 2 tabs in 24 hrs fluticasone (FLONASE) 50 mcg/actuation nasal spray Use 2 Sprays in each nostril as needed. Rinse mouth after use. Ascorbic Acid 1,000 mg tablet Take 1,000 mg by mouth once daily. Methenamine Hippurate (HIPREX) 1 gram tablet TAKE 1 TABLET BY MOUTH ONCE DAILY AT BEDTIME WITH VITAMIN C 1000MG FOR UTI PREVENTION nitrofurantoin monohydrate and macrocrystal (MACROBID) 100 mg capsule Take 1 capsule by mouth twice daily for 5 days. FAMILY HISTORY Problem Relation Age of Onset Coronary Artery Disease Mother Fatal SD in her 80s Diabetes Father ADULT ONSET Coronary Artery Disease Father in his 80s Hypertension Brother Coronary Artery Disease Brother 56 Prostate Cancer Brother COPD No Family History No lung cancer. Social History Tobacco Use Smoking status: Never Smokeless tobacco: Never Tobacco comments: No smoking in childhood home. No significant ETS in household since. Substance Use Topics Alcohol use: Yes Alcohol/week: 5.0 standard drinks of alcohol Types: 2 Glasses of Wine (5oz) per week Comment: Socially. Drug use: No ASSESSMENT/PLAN: 1. Burning with urination - ICD9: 788.1, ICD10: R30.0 - UA DIP, URINE (POC) - URINE CULTURE - NITROFURANTOIN MONOHYDRATE & MACROCRYSTAL 100 MG ORAL CAP Patient was changed due to patient's persistent symptoms Prescription instructions reviewed with patient as applicable. Potential red flag symptoms discussed with the patient. Reviewed appropriate action plan to take if red flag symptoms occur. Patient agreeable to treatment plan. Toya Mcgill APRN.CONTRACT ANALYST documented in this encounter [facility] 05-25-2023 Miscellaneous Notes Pt notified of same. Pt wanting to know if she could be given an atb today. Advised her would have to wait for the UA results to come back first. Pt is leaving early Sat for vacation. Advised pt she could come into [facility] to be seen and they could prescribe if urine dip shows anything. Pt states he may just come into [facility]. Kayla Cohn LPN Order placed Patient calls and states that she continues to have urinary issues. Patient continues to have frequency and burning with urination. Patient just finished cephalexin that was prescribed to her by [facility] ER 3 days ago. Patient continues to have issues. Patient states that Dr. Bonilla had told her that if she continued to have symptoms a urine test would be ordered. Please review and advise, Rylie Kaur RN documented in this encounter [facility] 05-19-2023 Miscellaneous Notes Patient was notified Char Moore Ma Let patient know that as long as her symptoms have resolved we do not re-peat a urine. Spoke with patient and gave update. Patient did get our message and tried to call back but couldn't get through so she ended up going to [facility]. Just with her history she just wanted to make sure everything was ok. Obtained documents given to PCP. Patient is wanting to know if she will need additional urine test after she has completed the medication. Madison Mcgill MA Left message for patient to contact office. Madison Mcgill MA Let patient know with the fact that her symptoms seem to be improving, her temp is ok and the bacteria in her urine is sensitive to the medication she is on I would not make any changes at this time. Patient sent my chart message and her temp was 98.3 Madison Mcgill MA Pt called back and she is not able to take her temp because she does not have one. Please advise. Telma Venegas [facility] Spoke with patient and she indicated that it is a little better than yesterday with the burning, however, she is still feeling a little nausea; no vomiting, feels feverish. She is going to check her temp to make sure and send a mychart message. She has been taking medication as instructed. Her concern she is wanting to stay ahead of this because of her history. Madison Mcgill MA Pt. went to [facility] Er for UTI on Monday. She was given Cephalexin 500 mg q6h. She is still having symptoms Burning with urination, nausea. She was hospitalized for this in the past. Please advise. documented in this encounter [facility] 01-30-2023 Miscellaneous Notes Patient returned call and given provider's message below . Jamir Suarez RN Left message for patient to contact office. Madison Mcgill MA Let patient know CT of chest was ok. documented in this encounter [facility] 01-24-2023 Note HNO ID: [id number] Author: RT Nandini(Elmer) Service: ? Author Type: Magazine Hand Type: Progress Notes Filed: 01/24/2023 3:28 PM Note Text: Radiology Service Progress Note PATIENT NAME: Norma Ferris DATE OF SERVICE: January 24, 2023 TIME: 3:28 PM PATIENT IDENTITY VERIFICATION COMPLETED USING TWO (2) IDENTIFIERS: Name and Date of confirmed by patient verbally. FALL SCREENING: Has the patient had 2 falls in the last year or 1 fall with injury or currently using an Ambulatory Assistive Device (Walker, Cane, Wheelchair, Crutches, etc.)? No PATIENT GENDER DATA: Female. status: : No status: NO. PATIENT RELEVANT IMPLANT DATA REVIEWED: Yes RADIOLOGY DEPARTMENT: CT; Exam(s) Completed: Chest PERIPHERAL IV DATA: Not applicable SIGNED BY: RT Anita(R) January 24, 2023 3:28 PM [facility] 01-24-2023 History of Present illness Narrative Radiology Service Progress Note PATIENT NAME: Norma Ferris DATE OF SERVICE: January 24, 2023 TIME: 3:28 PM PATIENT IDENTITY VERIFICATION COMPLETED USING TWO (2) IDENTIFIERS: Name and Date of confirmed by patient verbally. FALL SCREENING: Has the patient had 2 falls in the last year or 1 fall with injury or currently using an Ambulatory Assistive Device (Walker, Cane, Wheelchair, Crutches, etc.)? No PATIENT GENDER DATA: Female. status: : No status: NO. PATIENT RELEVANT IMPLANT DATA REVIEWED: Yes RADIOLOGY DEPARTMENT: CT; Exam(s) Completed: Chest PERIPHERAL IV DATA: Not applicable SIGNED BY: RT Anita(Elmer) January 24, 2023 3:28 PM documented in this encounter [facility] 01-19-2023 Miscellaneous Notes Patient returned call and given provider's message below and patient verbalized understanding. Jamir Suarez RN Left message for patient to contact office. Madison Mcgill MA Let patient know stool for blood was negative. documented in this encounter [facility] 01-16-2023 Note HNO ID: [id number] Author: Jaycob Bonilla MD Service: ? 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 Duarte at [facility]. Migraine without aura, without mention of intractable migraine without mention of status migrainosus 01/14/2008 Mixed hyperlipidemia 01/14/2008 Postmenopausal atrophic vaginitis 06/06/2012 Postmenopausal bleeding resolved Seasonal allergies 07/20/2016 Spinal stenosis, lumbar region, without neurogenic claudication 03/21/2012 UTI (lower urinary tract infection) 09/09/2014 PAST SURGICAL HISTORY PAST SURGICAL HISTORY Procedure Laterality Date 2D ECHO (EXEP) 09/2016 EF=65%, mild 1+ MR, TR COLONOSCOPY 04/29/2013 Dr. Lu, repeat 10 years CRANIAL DECOMPRESSN OTHER 1999 FECAL OCCULT BLOOD TEST 08/04/2017 negative HEMORRHOIDECTOMY, EXTNL; COMP LAPAROSCOPIC CHOLEYCYSTECTOMY 2002 Cholecystectomy, lap PAST SURGICAL HISTORY OF 1995 bladder suspension PAST SURGICAL HISTORY OF 2003 TVT and subsquent collagen injection PAST SURGICAL HISTORY OF 02/2012 back surgery for spinal stenosis PAST SURGICAL HISTORY OF 07/2016 had lumbar hardware removed, cleaned up DDD lumbar spine PAST SURGICAL HISTORY OF 1999 Hematoma head TOTAL ABDOM HYSTERECTOMY 1987 Hysterectomy, FUAD/BSO Teja Inhibitors; Carafate [Sucralfate]; Environmental [Other]; Protonix [Pantoprazole] Medications reviewed: Yes FAMILY HISTORY FAMILY HISTORY Problem Relation Age of Onset Coronary Artery Disease Mother Fatal SD in her 80s Diabetes Father ADULT ONSET Coronary Artery Disease Father in his 80s Hypertension Brother Coronary Artery Disease Brother 56 Prostate Cancer Brother COPD No Family History No lung cancer. 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 Social History Main Topics Smoking status: Never Smoker Smokeless tobacco: Never Used Comment: No smoking in childhood home. No significant ETS in household since. Alcohol use: Yes 3.0 oz/week Glasses of Wine (5oz): 2 per week Comment: Socially. Drug use: No Sexual activity: Yes Partners with: Male Comment: FUAD Green works out regularly 7 times per week with walking and walking on treadmill. She watches her diet for sodium, low fat and low cholesterol all of the time. List of current specialists seen: Dr. Abebe Brown, optho End of Live Planning discussed including patients advanced directive wishes: Yes I am willing to follow Norma's advanced directives. Depression screen Depression Screening 09/23/2016 11/29/2017 02/19/2019 01/16/2023 PHQ-2 Score 0 0 0 0 Depression screening tool completed and reviewed. Based on score and interview, patient is not at risk for depression. Screening tool discussed with patient, and I recommended no further intervention at this time. Functional Ability/Safety Screen 1. Was the patient's timed Up and Go test unsteady or longer than 30 seconds? No 2. Does the patient need help with the phone, transportation, shopping,preparing meals, housework, laundry, medications or managing money? No 3. Does your home have rugs in the hallway, lack of grab bars in the bathroom, lack of handrails on the stairs or have poor lighting? No Hearing Evaluation: normal PHYSICAL EXAM BP 133/78 (BP Site: Left Arm, BP Position: Sitting, BP Cuff Size: Regular Adult) Pulse 60 Resp 14 Ht 158.1 cm (5' 2.25 ) Wt 64.9 kg (143 lb) BMI 25.95 kg/m? Alert and oriented X 3: YES Body mass index is 25.95 kg/m?. See below ASSESSMENT/PLAN: 77 year old female The following prevention plan was discussed during the office visit and provided to the patient: See below Chief Complaint Patient presents with: Medicare Wellness Exam: HPI Norma Ferris is a 77 year old female who presents here today for Medicare Annual Visit and chronic issues. Patient with Hx of HTN, elevated fasting blood sugar. GERD, hyperlipidemia, Chronic back pain, frequent UTI's, seasonal allergies as well as those reviewed and addressed below and in ROS. Patient has been doing ok. Gastro feels throat clearing is due to GERD. She did have an ablation in Dec 2022. Past medical history, appointments, medications, allergies reviewed. Previous Medical History PAST MEDICAL HISTORY Diagnosis (more content not included)... 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 Duarte at [facility]. Migraine without aura, without mention of intractable migraine without mention of status migrainosus 01/14/2008 Mixed hyperlipidemia 01/14/2008 Postmenopausal atrophic vaginitis 06/06/2012 Postmenopausal bleeding resolved Seasonal allergies 07/20/2016 Spinal stenosis, lumbar region, without neurogenic claudication 03/21/2012 UTI (lower urinary tract infection) 09/09/2014 PAST SURGICAL HISTORY PAST SURGICAL HISTORY Procedure Laterality Date 2D ECHO (EXEP) 09/2016 EF=65%, mild 1+ MR, TR COLONOSCOPY 04/29/2013 Dr. Lu, repeat 10 years CRANIAL DECOMPRESSN OTHER 1999 FECAL OCCULT BLOOD TEST 08/04/2017 negative HEMORRHOIDECTOMY, EXTNL; COMP LAPAROSCOPIC CHOLEYCYSTECTOMY 2002 Cholecystectomy, lap PAST SURGICAL HISTORY OF 1995 bladder suspension PAST SURGICAL HISTORY OF 2003 TVT and subsquent collagen injection PAST SURGICAL HISTORY OF 02/2012 back surgery for spinal stenosis PAST SURGICAL HISTORY OF 07/2016 had lumbar hardware removed, cleaned up DDD lumbar spine PAST SURGICAL HISTORY OF 1999 Hematoma head TOTAL ABDOM HYSTERECTOMY 1987 Hysterectomy, FUAD/BSO Teja Inhibitors; Carafate [Sucralfate]; Environmental [Other]; Protonix [Pantoprazole] Medications reviewed: Yes FAMILY HISTORY FAMILY HISTORY Problem Relation Age of Onset Coronary Artery Disease Mother Fatal SD in her 80s Diabetes Father ADULT ONSET Coronary Artery Disease Father in his 80s Hypertension Brother Coronary Artery Disease Brother 56 Prostate Cancer Brother COPD No Family History No lung cancer. 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 Social History Main Topics Smoking status: Never Smoker Smokeless tobacco: Never Used Comment: No smoking in childhood home. No significant ETS in household since. Alcohol use: Yes 3.0 oz/week Glasses of Wine (5oz): 2 per week Comment: Socially. Drug use: No Sexual activity: Yes Partners with: Male Comment: FUAD Green works out regularly 7 times per week with walking and walking on treadmill. She watches her diet for sodium, low fat and low cholesterol all of the time. List of current specialists seen: Dr. Abebe Brown, optho End of Live Planning discussed including patients advanced directive wishes: Yes I am willing to follow Norma's advanced directives. Depression screen Depression Screening 09/23/2016 11/29/2017 02/19/2019 01/16/2023 PHQ-2 Score 0 0 0 0 Depression screening tool completed and reviewed. Based on score and interview, patient is not at risk for depression. Screening tool discussed with patient, and I recommended no further intervention at this time. Functional Ability/Safety Screen 1. Was the patient's timed Up and Go test unsteady or longer than 30 seconds? No 2. Does the patient need help with the phone, transportation, shopping,preparing meals, housework, laundry, medications or managing money? No 3. Does your home have rugs in the hallway, lack of grab bars in the bathroom, lack of handrails on the stairs or have poor lighting? No Hearing Evaluation: normal PHYSICAL EXAM BP 133/78 (BP Site: Left Arm, BP Position: Sitting, BP Cuff Size: Regular Adult) Pulse 60 Resp 14 Ht 158.1 cm (5' 2.25 ) Wt 64.9 kg (143 lb) BMI 25.95 kg/m Alert and oriented X 3: YES Body mass index is 25.95 kg/m . See below ASSESSMENT/PLAN: 77 year old female The following prevention plan was discussed during the office visit and provided to the patient: See below Chief Complaint Patient presents with: Medicare Wellness Exam: HPI Norma Ferris is a 77 year old female who presents here today for Medicare Annual Visit and chronic issues. Patient with Hx of HTN, elevated fasting blood sugar. GERD, hyperlipidemia, Chronic back pain, frequent UTI's, seasonal allergies as well as those reviewed and addressed below and in ROS. Patient has been doing ok. Gastro feels throat clearing is due to GERD. She did have an ablation in Dec 2022. Past medical history, appointments, medications, allergies reviewed. 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 Duarte at [facility]. 08/18/[address] Fischer at [place] Chronic throat clearing 02/01/2018 Diaphragmatic hernia Hiatal hernia Ectopic gastric mucosa of multiple sites 05/06/[address] Granado 04/2022 Elevated fasting blood sugar 08/14/2018 Encounter for gynecological examination without abnormal finding 07/20/2016 Sees [facility]. Essential hypertension 07/20/2016 GERD without esophagitis 01/14/2008 Hemorrhoids 03/03/2017 History of recurrent UTIs 07/19/2018 History of subdural hematoma 03/03/2017 After a fall Lichen sclerosus et atrophicus 03/03/2017 Living will on file at physician's office 01/16/2023 DPA: Nate (Son) Lumbago 03/21/[address] Duarte at [facility]. Medicare annual wellness visit, subsequent 08/14/2018 Medicare Part B: 06/06/2008 last done: 08/23/2019 Migraine without aura and without status migrainosus, not intractable 07/20/2016 Mixed hyperlipidemia 01/14/2008 Postmenopausal atrophic vaginitis 06/06/2012 Pulmonary nodules 10/03/201609/2016, follow uo CT in a year, 08/[address] Zheng Right thyroid nodule 10/03/2016 Had benign biopsy 09/2016 at [facility] Seasonal allergies 07/20/2016 Spinal stenosis, lumbar region, without neurogenic claudication 03/21/2012 Previous Surgical History PAST SURGICAL HISTORY Procedure Laterality Date 2D ECHO (EXEP) 09/2016 EF=65%, mild 1+ MR, TR APPENDECTOMY BACK SURGERY HX BRAIN SURGERY HX 2000 Brain bleed COLONOSCOPY 04/29/2013 Dr. Lu, repeat 10 years ESOPHAGOGASTRODUODENOSCOPY TRANSORAL DIAGNOSTIC 06/22/2020 EGD FECAL OCCULT BLOOD TEST 10/27/2021 negative HEMORRHOIDECTOMY XTRNL 2/> COLUMN/GROUP LAPAROSCOPY SURG CHOLECYSTECTOMY 2002 Cholecystectomy, lap PAST SURGICAL HISTORY OF 1995 bladder suspension PAST SURGICAL HISTORY OF 2003 TVT and subsquent collagen injection PAST SURGICAL HISTORY OF 02/2012 back surgery for spinal stenosis PAST SURGICAL HISTORY OF 07/2016 had lumbar hardware removed, cleaned up DDD lumbar spine PAST SURGICAL HISTORY OF 1999 Hematoma head PAST SURGICAL HISTORY OF 12/2022 esophageal ablation STRESS ECHO 10/29/2019 norml SUBTEMPORAL CRANIAL DECOMPRESSION 1999 TOTAL ABDOMINAL HYSTERECT W/WO RMVL TUBE OVARY 1988 Hysterectomy, FUAD/BSO VAGINAL HYSTERECTOMY Family History FAMILY HISTORY Problem Relation Age of Onset Coronary Artery Disease Mother Fatal SD in her 80s Diabetes Father ADULT ONSET Coronary Artery Disease Father in his 80s Hypertension Brother Coronary Artery Disease Brother 56 Prostate Cancer Brother COPD No Family History No lung cancer. Patient Allergies ALLERGIES Allergen Reactions Teja Inhibitors Cough Carafate [Sucralfat* Diarrhea Environmental [Othe* Unknown Omeprazole Other: See Comments Caused stomach pain. Protonix [Pantopraz* Other: See Comments Stomach pain- Current Medications Current Outpatient Medications on File Prior to Visit Medication Sig SUMAtriptan (IMITREX) 100 mg tablet Take one tab by month with onset of headache. Can repeat in 2 hrs. Max of 2 tabs in 24 hrs simvastatin (ZOCOR) 10 mg tablet Take 1 tablet by mouth daily at bedtime. fluticasone (FLONASE) 50 mcg/actuation nasal spray Use 2 Sprays in each nostril as needed. Rinse mouth after use. Ascorbic Acid (VITAMIN C) 1,000 mg tablet Take 1,000 mg by mouth once daily. Methenamine Hippurate (HIPREX) 1 gram tablet TAKE 1 TABLET BY MOUTH ONCE DAILY AT BEDTIME WITH VITAMIN C 1000MG FOR UTI PREVENTION No current facility-administered medications on file prior to visit. Social History Social History Tobacco Use Smoking status: Never Smokeless tobacco: Never Tobacco comments: No smoking in childhood home. No significant ETS in household since. Substance Use Topics Alcohol use: Yes Alcohol/week: 5.0 standard drinks Types: 2 Glasses of Wine (5oz) per week Comment: Socially. Drug use: No Review of Symptoms REVIEW OF SYSTEMS GENERAL: No weight loss, malaise or fevers HEENT: Negative for frequent or significant headaches, No changes in hearing or vision, no nose bleeds or other nasal problems NECK: Negative for lumps, goiter, pain and significant neck swelling RESPIRATORY: Negative for cough, hemoptysis, wheezing, COPD, dyspnea or shortness of breath CARDIOVASCULAR: Negative for chest pain, leg swelling, hypertension, CHF or palpitations GI: No nausea, vomiting, or diarrhea, No heartburn or reflux symptoms, and no blood : No history of dysuria, blood MUSCULOSKELETAL: Negative for joint pain or swelling, back pain or muscle pain SKIN: Negative for lesions, rash, and itching PSYCH: Negative for sleep disturbance, mood disorder and recent psychosocial stressors HEMATOLOGY/LYMPHOLOGY: Negative for prolonged bleeding, bruising easily or swollen nodes ENDOCRINE: Negative for cold or heat intolerance, polyuria, polydipsia and goiter NEURO: No history of headaches, syncope, paralysis, seizures or tremors EXAM: BP 133/78 (BP Site: Left Arm, BP Position: Sitting, BP Cuff Size: Regular Adult) Pulse 60 Resp 14 Ht 158.1 cm (5' 2.25 ) Wt 64.9 kg (143 lb) BMI 25.95 kg/m Last 4 Encounter Wt Readings: Date: Wt: 01/16/2023 64.9 kg (143 lb) 04/27/2022 62.6 kg (138 lb) 10/26/2021 61.7 kg (136 lb) 04/16/2021 61.7 kg (136 lb) General Appearance: Well appearing, alert, in no acute distress, well-hydrated, well nourished.. Skin: Skin color, texture, turgor normal, no suspicious rashes or lesions. Head: Normocephalic, no masses, lesions, tenderness or abnormalities. Eyes: Anicteric sclera. Pupils are equally round and reactive to light. Extraocular movements are intact. . Ears: External ears, TM's normal, canals clear. Neck: Supple, no adenopathy; thyroid symmetric, normal size, no bruits. Lungs: dry crackles through out but greater in the bases. No rales or rhonchi.. Heart: RRR without murmur, gallop, or rubs. No ectopy. Abdomen: Normal abdominal exam, Abdomen soft, non-tender. Bowel sounds normal. No masses, organomegaly. Extremities: No deformities, edema, skin discoloration, Good capillary refill. . Musculoskeletal: Muscular strength intact, No joint swelling, deformity, or tenderness. Peripheral Pulses: Normal. Neurologic: Gait normal. Reflexes normal and symmetric. Sensation to light touch and crainal nerves 2-12 intact.. Health Maintenance List DTAP,TDAP,TD(2 - Tdap) due on 01/13/2018 COVID-19 VACCINE(4 - Booster for Pfizer series) due on 09/26/2021 BP CONTROLLED (<130/80) due on 04/16/2022 FECAL OCCULT BLOOD due on 10/27/2022 ADVANCE DIRECTIVE DISCUSSION Never done DEPRESSION ASSESSMENT Never done ANNUAL PCP TEAM CHRONIC DISEASE VISIT due on 04/27/2023 DIABETES SCREEN due on 01/09/2026 BONE DENSITY Completed INFLUENZA Completed SHINGRIX VACCINE Completed PNEUMOCOCCAL: 65+ Completed Data reviewed Component Latest Ref Rng & Units 10/18/2021 04/20/2022 01/09/2023 WBC 3.70 - 11.00 k/uL 8.28 RBC 3.90 - 5.20 m/uL 4.67 Hemoglobin 11.5 - 15.5 g/dL 15.0 Hematocrit 36.0 - 46.0 % 44.0 MCV 80.0 - 100.0 fL 94.2 MCH 26.0 - 34.0 pg 32.1 MCHC 30.5 - 36.0 g/dL 34.1 RDW-CV 11.5 - 15.0 % 12.4 Platelet Count 150 - 400 k/uL 279 MPV 9.0 - 12.7 fL 10.6 Neut% % 53.4 Abs Neut (ANC) 1.45 - 7.50 k/uL 4.42 Lymph% % 35.4 Abs Lymph 1.00 - 4.00 k/uL 2.93 Bedford% % 7.5 Abs [place] <0.87 k/uL 0.62 Eosin% % 3.0 Abs Eosin <0.46 k/uL 0.25 Baso% % 0.5 Abs Baso <0.11 k/uL 0.04 Immature Gran % % 0.2 IMMATURE GRANS (ABS) <0.10 k/uL <0.03 NRBC /100 WBC 0.0 Absolute nRBC <0.01 k/uL <0.01 DTYPE Auto Protein, Total 6.3 - 8.0 g/dL 6.6 6.7 Albumin 3.9 - 4.9 g/dL 3.9 4.3 Calcium 8.5 - 10.2 mg/dL 9.4 9.4 Bilirubin, Total 0.2 - 1.3 mg/dL 0.4 0.4 Alkaline Phosphatase 34 - 123 U/L 66 57 AST 13 - 35 U/L 16 17 Glucose 74 - 99 mg/dL 112 (H) 83 BUN 7 - 21 mg/dL 19 23 (H) Creatinine 0.58 - 0.96 mg/dL 0.74 0.79 Sodium 136 - 144 mmol/L 140 141 Potassium 3.7 - 5.1 mmol/L 4.3 4.2 Chloride 97 - 105 mmol/L 105 107 (H) CO2 22 - 30 mmol/L 24 23 Anion Gap 9 - 18 mmol/L 11 11 ALT 7 - 38 U/L 11 15 eGFR- >60 eGFR-All Other Races . >60 eGFR >=60 mL/min/1.73m 76 Color Yellow Yellow Clarity Clear Cloudy (A) Glucose, Urine Trace, Negative Negative Bilirubin, Urine Negative Negative Ketones, Urine Trace, Negative Negative Specific [place], Ur 1.005 - 1.030 1.031 (H) Hemoglobin/Blood,Ur Negative, Trace Negative pH, Urine 5.0 - 8.0 5.5 Protein, Urine Trace, Negative Trace Urobilinogen Negative Negative Nitrites Negative Negative Leukest Negative, 25 Rosa Elena/uL 500 Rosa Elena/uL (A) WBC, Urine 0-5 /HPF 11-25 /HPF (A) RBC, Urine 0-3 /HPF 0-3 /HPF Epithelial Cells /HPF Few Calcium Oxalate Crystals None Seen /HPF Many (A) Total Cholesterol, Nonfasting <200 mg/dL 193 180 199 Triglycerides, Nonfasting <150 mg/dL 74 54 119 HDL Cholesterol, Nonfasting >39 mg/dL 76 72 72 LDL Cholesterol, Nonfasting <100 mg/dL 102 (H) 97 103 (H) Non HDL Cholesterol, Nonfasting <130 mg/dL 117 108 127 VLDL Cholesterol, Nonfasting <30 mg/dL 15 11 24 Total Chol/HDL Ratio, Nonfasting <5.10 mg/dL 2.54 2.50 2.76 LDL/HDL Ratio, Nonfasting <2.54 mg/dL 1.34 1.35 1.43 Hemoglobin A1C 4.3 - 5.6 % 5.6 5.2 5.2 Estimated Average Glucose mg/dL 114 103 103 TSH 0.270 - 4.200 mIU/L 1.410 1.370 Vitamin B12 232-1,245 pg/mL 395 Magnesium 1.7 - 2.3 mg/dL 2.3 A/P ASSESSMENT/PLAN: 1. Medicare annual wellness visit, subsequent - ICD9: V70.0, ICD10: Z00.00 (primary diagnosis) - Counseled on healthy diet and regular exercise - Calcium intake with supplements or by diet of 1000 mg/day for under 50, [id number] mg/day for 50+ - Follow up for annual exam in one year 2. Encounter for immunization - ICD9: V03.89, ICD10: Z23 - PNEUMOCOCCAL VACCINE (PREVNAR 20): given 3. Essential hypertension - ICD9: 401.9, ICD10: I10 - good control - Continue current medication(s) - Recommended regular aerobic exercise. - Recommend home blood pressure monitoring, to bring results in on next visit - Goal of BP <130/80 4. Mixed hyperlipidemia - ICD9: 272.2, ICD10: E78.2 - good control - Encouraged following a low fat, low cholesterol diet. - Discussed the benefits of regular aerobic exercise and weight loss. - Encouraged following a low carbohydrate, healthy oil intake diet. - Continue current therapy. 5. Elevated fasting blood sugar - ICD9: 790.21, ICD10: R73.01 - good control with life style changes. 6. GERD without esophagitis - ICD9: 530.81, ICD10: K21.9 - Continue treatment per Gastro 7. Migraine without aura and without status migrainosus, not intractable - ICD9: 346.10, ICD10: G43.009 - clinically stable. 8. Seasonal allergies - ICD9: 477.9, ICD10: J30.2 - no changes and seeing ENT. 9. Pulmonary nodules - ICD9: 793.19, ICD10: R91.8 Check - CT CHEST WO IVCON 10. Advance directive discussed with patient - ICD9: V65.49, ICD10: Z71.89 - up to date. 11. Colon cancer screening - ICD9: V76.51, ICD10: Z12.11 Check - FECAL OCCULT BLOOD TEST 12. Lung nodules - ICD9: 793.19, ICD10: R91.8 Check - CT CHEST WO IVCON 14. Abnormal lung sounds - ICD9: 786.7, ICD10: R09.89 Check - CT CHEST WO IVCON F/u 6 months routine check lipid and A1c prior I spent a total of 40 minutes on the date of the service which included preparing to see the patient, [id number] patient care, completing clinical documentation, performing a medically appropriate examination, counseling and educating the patient/family/caregiver and ordering medications, tests, or procedures. Jaycob Bonilla MD documented in this encounter [facility] 01-09-2023 Miscellaneous Notes Patient notified. Madison Mcgill MA Let patient know urine and non-fasting lab orders placed. Patient reports she came in Sat to get bloodwork done for her appt with pcp on 01-16, but there were no orders. Asking if pcp wants labs done prior to appt? Please advise patient either way via her cell. documented in this encounter [facility] 10-21-2022 Miscellaneous Notes The following approved medication requests have been transmitted electronically. Requested Prescriptions Signed Prescriptions Disp Refills SUMAtriptan (IMITREX) 100 mg tablet 9 tablet 3 Sig: Take one tab by month with onset of headache. Can repeat in 2 hrs. Max of 2 tabs in 24 hrs Authorizing Provider: JAYCOB BONILLA MD Patient has been identified by name and date of : Yes Patient phones for refill(s): Requested Prescriptions Pending Prescriptions Disp Refills SUMAtriptan (IMITREX) 100 mg tablet 9 tablet 3 Sig: Take one tab by month with onset of headache. Can repeat in 2 hrs. Max of 2 tabs in 24 hrs Date of last office visit in primary care: 04/27/22 Last 2 Encounter Wt Readings: Date: Wt: 04/27/2022 62.6 kg (138 lb) 10/26/2021 61.7 kg (136 lb) Previous labs/tests for medication: Blood Pressure: BUN (mg/dL) Date Value 10/18/2021 19 Sodium (mmol/L) Date Value 10/18/2021 140 Last 1 Encounter BP Readings: Date: BP: 04/27/2022 130/83 Blood Counts: WBC (k/uL) Date Value 01/28/2021 7.28 RBC (m/uL) Date Value 01/28/2021 5.03 Hematocrit (%) Date Value 01/28/2021 48.3 Hemoglobin (g/dL) Date Value 01/28/2021 15.6 Platelet Count (k/uL) Date Value 01/28/2021 239 Liver Function: ALT (U/L) Date Value 10/18/2021 11 AST (U/L) Date Value 10/18/2021 16 Potassium: No components found for: POT Please advise. Thank you. Marielle Suarez RN documented in this encounter [facility] 07-07-2022 History of Present illness Narrative Here from [facility] and referred by Dr. 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 [address] [facility] Work Phone: 05-05-2022 History of Present illness Narrative Gastro office visit. Kayla Cohn LPN Scan on 05/05/2022 9:43 AM by External Provider: Consultation - GI documented in this encounter [facility] 04-27-2022 Instructions Jaycob Bonilla MD - 04/27/2022 8:54 AM EDT Please get labs and urine test done on or after 10/14/2022 prior to your next visit. documented in this encounter [facility] 04-27-2022 History of Present illness Narrative Chief Complaint Patient presents with: F/U 6 months HPI Norma Ferris is a 76 year old female who presents here today for 6 month follow up. Patient with Hx of HTN, elevated fasting blood sugar. GERD, hyperlipidemia, Chronic back pain, frequent UTI's, seasonal allergies as well as those reviewed and addressed below and in ROS. Patient saw Dr. Friend for testing and at this point is off the omeprazole. Even when she was on the omeprazole twice a day there was no change in her chronic cough. Past medical history, appointments, medications, allergies reviewed. 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 Duarte at [facility]. 08/18/[address] Fischer at [place] Chronic throat clearing 02/01/2018 Diaphragmatic hernia Hiatal hernia Elevated fasting blood sugar 08/14/2018 Encounter for gynecological examination without abnormal finding 07/20/2016 Sees [facility]. Essential hypertension 07/20/2016 GERD without esophagitis 01/14/2008 Hemorrhoids 03/03/2017 History of recurrent UTIs 07/19/2018 History of subdural hematoma 03/03/2017 After a fall Lichen sclerosus et atrophicus 03/03/2017 Lumbago 03/21/[address] Duarte at [facility]. Medicare annual wellness visit, subsequent 08/14/2018 Medicare Part B: 06/06/2008 last done: 08/23/2019 Migraine without aura and without status migrainosus, not intractable 07/20/2016 Mixed hyperlipidemia 01/14/2008 Postmenopausal atrophic vaginitis 06/06/2012 Pulmonary nodules 10/03/201609/2016, follow uo CT in a year, 08/[address] Zheng Right thyroid nodule 10/03/2016 Had benign biopsy 09/2016 at [facility] Seasonal allergies 07/20/2016 Spinal stenosis, lumbar region, without neurogenic claudication 03/21/2012 Previous Surgical History PAST SURGICAL HISTORY Procedure Laterality Date 2D ECHO (EXEP) 09/2016 EF=65%, mild 1+ MR, TR APPENDECTOMY BACK SURGERY HX BRAIN SURGERY HX 1999 Brain bleed COLONOSCOPY 04/29/2013 Dr. Lu, repeat 10 years ESOPHAGOGASTRODUODENOSCOPY TRANSORAL DIAGNOSTIC 06/22/2020 EGD FECAL OCCULT BLOOD TEST 10/27/2021 negative HEMORRHOIDECTOMY XTRNL 2/> COLUMN/GROUP LAPAROSCOPY SURG CHOLECYSTECTOMY 2002 Cholecystectomy, lap PAST SURGICAL HISTORY OF 1995 bladder suspension PAST SURGICAL HISTORY OF 2003 TVT and subsquent collagen injection PAST SURGICAL HISTORY OF 02/2012 back surgery for spinal stenosis PAST SURGICAL HISTORY OF 07/2016 had lumbar hardware removed, cleaned up DDD lumbar spine PAST SURGICAL HISTORY OF 1999 Hematoma head STRESS ECHO 10/29/2019 norml SUBTEMPORAL CRANIAL DECOMPRESSION 2000 TOTAL ABDOMINAL HYSTERECT W/WO RMVL TUBE OVARY 1988 Hysterectomy, FUAD/BSO VAGINAL HYSTERECTOMY Family History FAMILY HISTORY Problem Relation Age of Onset Coronary Artery Disease Mother Fatal SD in her 80s Diabetes Father ADULT ONSET Coronary Artery Disease Father in his 80s Hypertension Brother Coronary Artery Disease Brother 56 Prostate Cancer Brother COPD No Family History No lung cancer. Patient Allergies ALLERGIES Allergen Reactions Teja Inhibitors Cough Carafate [Sucralfat* Diarrhea Environmental [Othe* Unknown Omeprazole Other: See Comments Caused stomach pain. Protonix [Pantopraz* Other: See Comments Stomach pain- Current Medications Current Outpatient Medications on File Prior to Visit Medication Sig simvastatin (ZOCOR) 10 mg tablet Take 1 tablet by mouth daily at bedtime. omeprazole (PRILOSEC) 40 mg capsule Take 1 capsule by mouth twice daily. Benzonatate 200 mg capsule Take 1 capsule by mouth three times daily as needed. SUMAtriptan (IMITREX) 100 mg tablet Take one tab by month with onset of headache. Can repeat in 2 hrs. Max of 2 tabs in 24 hrs fluticasone (FLONASE) 50 mcg/actuation nasal spray Use 2 Sprays in each nostril as needed. Rinse mouth after use. Ascorbic Acid (VITAMIN C) 1,000 mg tablet Take 1,000 mg by mouth once daily. Methenamine Hippurate (HIPREX) 1 gram tablet TAKE 1 TABLET BY MOUTH ONCE DAILY AT BEDTIME WITH VITAMIN C 1000MG FOR UTI PREVENTION aspirin, enteric coated (ECOTRIN LOW STRENGTH) 81 mg EC tablet Take 81 mg by mouth once daily. No current facility-administered medications on file prior to visit. Social History Social History Tobacco Use Smoking status: Never Smoker Smokeless tobacco: Never Used Tobacco comment: No smoking in childhood home. No significant ETS in household since. Substance Use Topics Alcohol use: Yes Alcohol/week: 5.0 standard drinks Types: 2 Glasses of Wine (5oz) per week Comment: Socially. Drug use: No Review of Symptoms REVIEW OF SYSTEMS GENERAL: No weight loss, malaise or fevers NECK: Negative for lumps, goiter, pain and significant neck swelling RESPIRATORY: Negative for cough, hemoptysis, wheezing, COPD, dyspnea or shortness of breath CARDIOVASCULAR: Negative for chest pain, leg swelling, hypertension, CHF or palpitations GI: No nausea, vomiting, or diarrhea and No heartburn or reflux symptoms. Endo: No polyuria or polydipsia. NEURO: No history of syncope, paralysis, seizures or tremors. No frequent Headaches and has a migraine on occasion. EXAM: BP 130/83 Pulse 72 Resp 16 Wt 62.6 kg (138 lb) BMI 25.07 kg/m Last 4 Encounter Wt Readings: Date: Wt: 04/27/2022 62.6 kg (138 lb) 10/26/2021 61.7 kg (136 lb) 04/16/2021 61.7 kg (136 lb) 04/08/2021 63 kg (139 lb) General Appearance: Well appearing, alert, in no acute distress, well-hydrated, well nourished.. Neck: Supple, no adenopathy; thyroid symmetric, normal size, no bruits. Lungs: Lungs clear to auscultation. No wheezing, rhonchi, rales.. Heart: RRR without murmur, gallop, or rubs. No ectopy. Abdomen: Normal abdominal exam, Abdomen soft, non-tender. Bowel sounds normal. No masses, organomegaly. Extremities: No deformities, edema, skin discoloration, clubbing or cyanosis. Peripheral Pulses: Normal. Neurologic: Gait normal. Sensation to light touch intact.. Health Maintenance List ADVANCE DIRECTIVE DISCUSSION Never done COVID-19 VACCINE(4 - Booster for Pfizer series) due on 12/01/2021 BP CONTROLLED (<130/80) due on 04/16/2022 DTAP,TDAP,TD(2 - Tdap) due on 10/26/2022 ANNUAL PCP TEAM CHRONIC DISEASE VISIT due on 10/26/2022 FECAL OCCULT BLOOD due on 10/27/2022 DIABETES SCREEN due on 04/20/2025 BONE DENSITY Completed INFLUENZA Completed SHINGRIX VACCINE Completed PNEUMOCOCCAL: 65+ Completed HEPATITIS C SCREENING Discontinued DEPRESSION SCREENING Discontinued Data reviewed Component Latest Ref Rng & Units 10/18/2021 04/20/2022 Protein, Total 6.3 - 8.0 g/dL 6.6 Albumin 3.9 - 4.9 g/dL 3.9 Calcium 8.5 - 10.2 mg/dL 9.4 Bilirubin, Total 0.2 - 1.3 mg/dL 0.4 Alkaline Phosphatase 34 - 123 U/L 66 AST 13 - 35 U/L 16 Glucose 74 - 99 mg/dL 112 (H) BUN 7 - 21 mg/dL 19 Creatinine 0.58 - 0.96 mg/dL 0.74 Sodium 136 - 144 mmol/L 140 Potassium 3.7 - 5.1 mmol/L 4.3 Chloride 97 - 105 mmol/L 105 CO2 22 - 30 mmol/L 24 Anion Gap 9 - 18 mmol/L 11 ALT 7 - 38 U/L 11 eGFR- >60 eGFR-All Other Races . >60 Total Cholesterol, Nonfasting <200 mg/dL 193 180 Triglycerides, Nonfasting <150 mg/dL 74 54 HDL Cholesterol, Nonfasting >39 mg/dL 76 72 LDL Cholesterol, Nonfasting <100 mg/dL 102 (H) 97 Non HDL Cholesterol, Nonfasting <130 mg/dL 117 108 VLDL Cholesterol, Nonfasting <30 mg/dL 15 11 Total Chol/HDL Ratio, Nonfasting <5.10 mg/dL 2.54 2.50 LDL/HDL Ratio, Nonfasting <2.54 mg/dL 1.34 1.35 Hemoglobin A1C 4.3 - 5.6 % 5.6 5.2 Estimated Average Glucose mg/dL 114 103 Vitamin B12 232-1,245 pg/mL 395 Magnesium 1.7 - 2.3 mg/dL 2.3 A/P ASSESSMENT/PLAN: 1. Essential hypertension - ICD9: 401.9, ICD10: I10 (primary diagnosis) - good control - Continue current medication(s) - Recommended regular aerobic exercise. - Recommend home blood pressure monitoring, to bring results in on next visit - Goal of BP <130/80 2. Mixed hyperlipidemia - ICD9: 272.2, ICD10: E78.2 - good control - Encouraged following a low fat, low cholesterol diet. - Discussed the benefits of regular aerobic exercise and weight loss. - Encouraged following a low carbohydrate, healthy oil intake diet. - Continue current therapy. 3. Migraine without aura and without status migrainosus, not intractable - ICD9: 346.10, ICD10: G43.009 - Clinically stable no changes needed. 4. GERD without esophagitis - ICD9: 530.81, ICD10: K21.9 - Being seen by Gastro and off PPI for now. 5. Elevated fasting blood sugar - ICD9: 790.21, ICD10: R73.01 - Controlled with life style changes. 6. Seasonal allergies - ICD9: 477.9, ICD10: J30.2 - Management per ENT. F/u 6 months extensive check CMP, Lipid Ua, A1c, CBC TSH prior Jaycob Bonilla MD documented in this encounter [facility] 04-27-2022 Nurse Note Home BP readings: 136/67 130/83 115/76 documented in this encounter [facility] documented as of this encounter (statuses as of 04/27/2022) [address]10-2008 History of Past illness Narrative* Problem Noted Date Resolved Date Elevated blood pressure read ing without diagnosis of hypertension 01/14/2008 06/20/2016 documented as of this encounter (statuses as of 05/06/2022) [address] History of Past illness Narrative* Problem Noted Date Resolved Date Elevated blood pressure read ing without diagnosis of hypertension 01/14/2008 06/20/2016 documented as of this encounter (statuses as of 10/21/2022) [address] History of Past illness Narrative* Problem Noted Date Resolved Date Elevated blood pressure read ing without diagnosis of hypertension 01/14/2008 06/20/2016 documented as of this encounter (statuses as of 01/09/2023) [address] History of Past illness Narrative* Problem Noted Date Resolved Date Elevated blood pressure read ing without diagnosis of hypertension 01/14/2008 06/20/2016 documented as of this encounter (statuses as of 01/16/2023) [address] History of Past illness Narrative* Problem Noted Date Resolved Date Elevated blood pressure read ing without diagnosis of hypertension 01/14/2008 06/20/2016 documented as of this encounter (statuses as of 01/19/2023) [address] History of Past illness Narrative* Problem Noted Date Resolved Date Elevated blood pressure read ing without diagnosis of hypertension 01/14/2008 06/20/2016 documented as of this encounter (statuses as of 01/30/2023) [address] History of Past illness Narrative* Problem Noted Date Diagnosed Date Resolved Date Elevated blood pressure read ing without diagnosis of hypertension 01/14/2008 06/20/2016 documented as of this encounter (statuses as of 05/16/2023) [address] History of Past illness Narrative* Problem Noted Date Diagnosed Date Resolved Date Elevated blood pressure read ing without diagnosis of hypertension 01/14/2008 06/20/2016 documented as of this encounter (statuses as of 05/19/2023) [address] History of Past illness Narrative* Problem Noted Date Diagnosed Date Resolved Date Elevated blood pressure read ing without diagnosis of hypertension 01/14/2008 06/20/2016 documented as of this encounter (statuses as of 05/25/2023) [address] History of Past illness Narrative* Problem Noted Date Diagnosed Date Resolved Date Elevated blood pressure read ing without diagnosis of hypertension 01/14/2008 06/20/2016 documented as of this encounter (statuses as of 05/25/2023) [address] History of Past illness Narrative* Problem Noted Date Diagnosed Date Resolved Date Elevated blood pressure read ing without diagnosis of hypertension 01/14/2008 06/20/2016 documented as of this encounter (statuses as of 06/08/2023) [address] History of Past illness Narrative* Problem Noted Date Diagnosed Date Resolved Date Elevated blood pressure read ing without diagnosis of hypertension 01/14/2008 06/20/2016 documented as of this encounter (statuses as of 07/23/2023) [address] History of Past illness Narrative* Problem Noted Date Diagnosed Date Resolved Date Elevated blood pressure read ing without diagnosis of hypertension 01/14/2008 06/20/2016 documented as of this encounter (statuses as of 08/10/2023) [address] History of Past illness Narrative* Problem Noted Date Diagnosed Date Resolved Date Elevated blood pressure read ing without diagnosis of hypertension 01/14/2008 06/20/2016 documented as of this encounter (statuses as of 08/11/2023) [address] History of Past illness Narrative* Problem Noted Date Diagnosed Date Resolved Date Elevated blood pressure read ing without diagnosis of hypertension 01/14/2008 06/20/2016 documented as of this encounter (statuses as of 08/11/2023) [address] History of Past illness Narrative* Problem Noted Date Diagnosed Date Resolved Date Elevated blood pressure read ing without diagnosis of hypertension 01/14/2008 06/20/2016 documented as of this encounter (statuses as of 09/09/2023) [facility]03-10-2008 History of Past illness Narrative* Problem Noted Date Diagnosed Date Resolved Date Elevated blood pressure read ing without diagnosis of hypertension 01/14/2008 06/20/2016 documented as of this encounter (statuses as of 09/13/2023) [facility]2008 History of Past illness Narrative* Problem Noted Date Diagnosed Date Resolved Date Elevated blood pressure read ing without diagnosis of hypertension 01/14/2008 06/20/2016 documented as of this encounter (statuses as of 09/13/2023) [facility] Diagnosis Essential hypertension- Primary Unspecified essential hypertension Mixed hyperlipidemia Migraine without aura and without status migrainosus, not intractable Migraine without aura, without mention of intractable migraine without mention of status migrainosus GERD without esophagitis Esophageal reflux Elevated fasting blood sugar Impaired fasting glucose Seasonal allergies Allergic rhinitis, cause unspecified Medication management Encounter for long-term (current) use of other medications [facility] Diagnosis Elevated fasting blood sugar- Primary Impaired fasting glucose Essential hypertension Unspecified essential hypertension Mixed hyperlipidemia Medication management Encounter for long-term (current) use of other medications Right thyroid nodule Nontoxic uninodular goiter [facility] Diagnosis Medicare annual wellness visit, subsequent- Primary Routine general medical examination at a health care facility Encounter for immunization Need for other specified prophylactic vaccination against single bacterial disease Essential hypertension Unspecified essential hypertension Mixed hyperlipidemia Elevated fasting blood sugar Impaired fasting glucose GERD without esophagitis Esophageal reflux Migraine without aura and without status migrainosus, not intractable Migraine without aura, without mention of intractable migraine without mention of status migrainosus Seasonal allergies Allergic rhinitis, cause unspecified Pulmonary nodules Other nonspecific abnormal finding of lung field Advance directive discussed with patient Other specified counseling Colon cancer screening Special screening for malignant neoplasms, colon Lung nodules Other nonspecific abnormal finding of lung field Need for vaccination Need for prophylactic vaccination and inoculation against unspecified single disease Abnormal lung sounds Abnormal chest sounds [facility] Diagnosis Dysuria- Primary [facility] Diagnosis Burning with urination- Primary Dysuria [facility] Diagnosis Essential hypertension- Primary Unspecified essential hypertension Mixed hyperlipidemia Elevated fasting blood sugar Impaired fasting glucose GERD without esophagitis Esophageal reflux Saravia's esophagus without dysplasia Saravia's esophagus Migraine without aura and without status migrainosus, not intractable Migraine without aura, without mention of intractable migraine without mention of status migrainosus Chronic throat clearing Other symptoms involving head and neck Medication management Encounter for long-term (current) use of other medications documented in this encounter [facility] note* Diagnosis URI with cough and congestion- Primary [facility] Diagnosis COVID-19- Primary documented in this encounter [facility] note* Diagnosis Pulmonary nodules Other nonspecific abnormal finding of lung field Lung nodules Other nonspecific abnormal finding of lung field Abnormal lung sounds Abnormal chest sounds documented in this encounter [facility] note* Diagnosis Rhinosinusitis- Primary Unspecified sinusitis (chronic) documented in this encounter [facility] Advance Directives No Advanced Directives Records FoundDocuments on File Type Date 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 Advance Directive(s) 06/22/2020 9:10 AM Advance Directive(s) 06/16/2020 3:03 PM Advance Directive(s) 12/21/2006 12:00 AM Documents on File Type Date Recorded 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 Advance Directive(s) 12/21/2006 Documents on File Type Date Recorded 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 Advance Directive(s) 12/21/2006 Chief Complaint New patient visit Summary Purpose Family History No Family History Records FoundNo Family History Records FoundNo Family History Records Found Reason for Referral Specialty Diagnoses / Procedures Referred By Shelli davis Referred To Contact CT IMAGING Diagnoses Pulmonary nodules Lung nodules Abnormal lung sounds Procedures CT CHEST WO IVCON DIAGNOSTIC COMPUTED TOMOGRAPHY THORAX W/O Jaycob Bae MD [address] [place] [address] Ct Imaging Referral ID Status Reason Start Date Expiration Date Visits Requested Visits Authorized [id number] Authorized Auto-Generat ed Referral 01/16/2023 02/15/2024 1 1 Specialty Diagnoses / Procedures Referred By Shelli davis Referred To Contact CT IMAGING Diagnoses Pulmonary nodules Lung nodules Abnormal lung sounds Procedures CT CHEST WO IVCON DIAGNOSTIC COMPUTED TOMOGRAPHY THORAX W/O Jaycob Bae MD [address] [facility] [place] [address] [place] [address] Referral ID Status Reason Start Date Expiration Date V isits Requested Visits Authorized [id number] Closed Auto-Generate d Referral 01/16/2023 02/15/2024 1 1 Health Concerns Infection Onset Date Last Indicated Resolved Time COVID-19 Rule-Out 08/09/2023 08/09/2023 08/09/2023 7:56 PM EDT Infection Onset Date Last Indicated Resolved Time COVID-19 Confirmed 08/09/2023 08/09/2023 Additional Source Comments Source Comments (unrecognize d section and content) In the event this informatio n is protected by the Federal Confidentiality of Alcohol and Drug Abuse Patient Records regulations: The Federal rules restrict any use of the information to criminally investigate or prosecute any alcohol or drug abuse patient.[facility] event this information is protected by the Federal Confidentiality of Alcohol and Drug Abuse Patient Records regulations: The Federal rules restrict any use of the information to criminally investigate or prosecute any alcohol or drug abuse patient.[facility] the event this information is protected by the Federal Confidentiality of Alcohol and Drug Abuse Patient Records regulations: The Federal rules restrict any use of the information to criminally investigate or prosecute any alcohol or drug abuse patient.[facility] the event this information is protected by the Federal Confidentiality of Alcohol and Drug Abuse Patient Records regulations: The Federal rules restrict any use of the information to criminally investigate or prosecute any alcohol or drug abuse patient.[facility] the event this information is protected by the Federal Confidentiality of Alcohol and Drug Abuse Patient Records regulations: The Federal rules restrict any use of the information to criminally investigate or prosecute any alcohol or drug abuse patient.[facility] the event this information is protected by the Federal Confidentiality of Alcohol and Drug Abuse Patient Records regulations: The Federal rules restrict any use of the information to criminally investigate or prosecute any alcohol or drug abuse patient.[facility] the event this information is protected by the Federal Confidentiality of Alcohol and Drug Abuse Patient Records regulations: The Federal rules restrict any use of the information to criminally investigate or prosecute any alcohol or drug abuse patient.[facility] the event this information is protected by the Federal Confidentiality of Alcohol and Drug Abuse Patient Records regulations: The Federal rules restrict any use of the information to criminally investigate or prosecute any alcohol or drug abuse patient.[facility] the event this information is protected by the Federal Confidentiality of Alcohol and Drug Abuse Patient Records regulations: The Federal rules restrict any use of the information to criminally investigate or prosecute any alcohol or drug abuse patient.[facility] the event this information is protected by the Federal Confidentiality of Alcohol and Drug Abuse Patient Records regulations: The Federal rules restrict any use of the information to criminally investigate or prosecute any alcohol or drug abuse patient.[facility] the event this information is protected by the Federal Confidentiality of Alcohol and Drug Abuse Patient Records regulations: The Federal rules restrict any use of the information to criminally investigate or prosecute any alcohol or drug abuse patient.[facility] the event this information is protected by the Federal Confidentiality of Alcohol and Drug Abuse Patient Records regulations: The Federal rules restrict any use of the information to criminally investigate or prosecute any alcohol or drug abuse patient.[facility] the event this information is protected by the Federal Confidentiality of Alcohol and Drug Abuse Patient Records regulations: The Federal rules restrict any use of the information to criminally investigate or prosecute any alcohol or drug abuse patient.[facility] the event this information is protected by the Federal Confidentiality of Alcohol and Drug Abuse Patient Records regulations: The Federal rules restrict any use of the information to criminally investigate or prosecute any alcohol or drug abuse patient.[facility] the event this information is protected by the Federal Confidentiality of Alcohol and Drug Abuse Patient Records regulations: The Federal rules restrict any use of the information to criminally investigate or prosecute any alcohol or drug abuse patient.[facility] the event this information is protected by the Federal Confidentiality of Alcohol and Drug Abuse Patient Records regulations: The Federal rules restrict any use of the information to criminally investigate or prosecute any alcohol or drug abuse patient.[facility] the event this information is protected by the Federal Confidentiality of Alcohol and Drug Abuse Patient Records regulations: The Federal rules restrict any use of the information to criminally investigate or prosecute any alcohol or drug abuse patient.[facility] the event this information is protected by the Federal Confidentiality of Alcohol and Drug Abuse Patient Records regulations: The Federal rules restrict any use of the information to criminally investigate or prosecute any alcohol or drug abuse patient.[facility] the event this information is protected by the Federal Confidentiality of Alcohol and Drug Abuse Patient Records regulations: The Federal rules restrict any use of the information to criminally investigate or prosecute any alcohol or drug abuse patient.[facility] Reason for Visit (unrecogniz ed section and content) Reason Comments outside gastro Reason Onset Date Comments Refill Request 10/21/2022 Reason Comments Lab Orders Reason Comments Medicare Wellness Exam Reason Comments Results Reason Comments Patient Update Reason Comments Urinary Problem Pt reported urinary frequency, burning x1-2 wks, recent [facility] ER Visit 05/12/2023, 05/16/2023 completed ATB. Reason Comments Outside Urology Reason Comments Cough Fever, ST, chest con gestion x2 days Reason Comments Radiology CT Specialty Diagnoses / Procedures Referred By Shelli davis Referred To Contact CT IMAGING Diagnoses Pulmonary nodules Lung nodules Abnormal lung sounds Procedures CT CHEST WO IVCON DIAGNOSTIC COMPUTED TOMOGRAPHY THORAX W/O CNTRST Jaycob Bonilla MD [address] [place] [address] Ct Imaging [place] [address] Referral ID Status Reason Start Date Expiration Date V isits Requested Visits Authorized [id number] Closed Auto-Generate d Referral 01/16/2023 02/15/2024 1 1 Reason Comments Cough Cough, sinus pressur e and loss of voice x 12 days Care Teams (unrecognized sec tion and content) Front End Manager Relationship Specialty Start Date End Date Jaycob Bonilla MD [address] [place], [place] [phone] PCP - General Family Practice 07/20/16 Front End Manager Relationship Specialty Start Date End Date Jaycob Bonilla MD [address] [place], [place] [phone] PCP - General Family Medicine 07/20/16 Front End Manager Relationship Specialty Start Date End Date Jaycob Bonilla MD [address] [place] [address] PCP - General Family Medicine 07/20/16 Front End Manager Relationship Specialty Start Date End Date Jaycob Bonilla MD [address] [place] [address] PCP - General Family Medicine 07/20/16 Front End Manager Relationship Specialty Start Date End Date Jaycob Bonilla MD [address] [place] [address] PCP - General Family Medicine 07/20/16 Front End Manager Relationship Specialty Start Date End Date Jaycob Bonilla MD [address] [place] [address] PCP - General Family Medicine 07/20/16 Front End Manager Relationship Specialty Start Date End Date Jaycob Bonilla MD [address] [place] [address] PCP - General Family Medicine 07/20/16 Front End Manager Relationship Specialty Start Date End Date Jaycob Bonilla MD [address] [place] [address] PCP - General Family Medicine 07/20/16 Front End Manager Relationship Specialty Start Date End Date Jaycob Bonilla MD [address] [place] [address] PCP - General Family Medicine 07/20/16 Front End Manager Relationship Specialty Start Date End Date Jaycob Bonilla MD [address] [place] [address] PCP - General Family Medicine 07/20/16 Front End Manager Relationship Specialty Start Date End Date Jaycob Bonilla MD [address] [place] [address] PCP - General Family Medicine 07/20/16 Front End Manager Relationship Specialty Start Date End Date Jaycob Bonilla MD [address] [place] [address] PCP - General Family Medicine 07/20/16 Front End Manager Relationship Specialty Start Date End Date Jaycob Bonilla MD [address] [place] [address] PCP - General Family Medicine 07/20/16 Front End Manager Relationship Specialty Start Date End Date Jaycob Bonilla MD [address] [place], [place] [address] [phone] PCP - General Family Medicine 07/20/16 Front End Manager Relationship Specialty Start Date End Date Jaycob Bonilla MD [address] [place], [place] [address] [phone] PCP - General Family Medicine 07/20/16 INFORMATION SOURCE (unrecogn ized section and content) DATE CREATED AUTHOR AUTHOR'S ORGANIZ ATION 12/24/2022 [facility] DATE CREATED AUTHOR AUTHOR'S ORGANIZ ATION 09/14/2023 [facility] FOR RECORDS PERTAINING TO PATIENTS WHO ARE OR HAVE BEEN ENROLLED IN A CHEMICAL DEPENDENCY/SUBSTANCEABUSE PROGRAM, SOME INFORMATION MAY BE OMITTED. This clinical summary was aggregated from multiple sources. Caution should be exercised in using it in the provision of clinical care. This summary normalizes information from multiple sources, and as a consequence, information in this document may materially change the coding, format and clinical context of patient data. In addition, data may be omitted in some cases. CLINICAL DECISIONS SHOULD BE BASED ON THE PRIMARY CLINICAL RECORDS. [facility]. provides no warranty or guarantee of the accuracy or completeness of information in this document.
--- NOTE | 2023-11-08 18:08 | ED.VIS.FEGU ---
HPI HPI - Female History of Present Illness Chief Complaint: Complaint Narrative Narrative: 78-year-old female presenting with dysuria, urinary frequency. She has a history of chronic recurrent UTIs. She sees Dr. Etienne for this. Patient denies any fevers, chills, nausea, vomiting. She states that her son is a physician and told her to come to the ER for a urinalysis and urine culture before starting an antibiotic. Patient states she has several antibiotics that she has at home leftover from previous visits. Any flank pain. PFSH PFS Medical History Alcohol use Cardiology follow-up encounter Chronic back pain Cystitis DDD (degenerative disc disease), lumbar Easy bruising Essential (primary) hypertension GERD (gastroesophageal reflux disease) History of echocardiogram History of steroid therapy History of stress test Hx of migraines Hyperlipidemia Hypertension Infection due to ESBL-producing Escherichia coli Non-smoker PONV (postoperative nausea and vomiting) Post-menopausal Spinal stenosis UTI (urinary tract infection) Home Medications ascorbic acid (vitamin C) 1,000 mg capsule,extended release 1 cap PO QHS 04/07/22 [History Last Taken Unknown] methenamine hippurate 1 gram tablet 1 g PO QHS urinary tract health 04/07/22 [History Last Taken Unknown] sucralfate 100 mg/mL oral suspension 10 ml PO QACHS #1,200 mL 05/05/22 [Rx Last Taken Unknown] lansoprazole 30 mg capsule,delayed release 30 mg PO QAM #90 caps 05/26/22 [Rx Last Taken Unknown] ciprofloxacin HCl 500 mg tablet (Cipro) 500 mg PO BID #20 tabs 11/08/23 [Rx Last Taken Unknown] cream base no.175 (bulk) (Versatile Rich topical cream) See Rx Instructions topical .COMPLEX 11/08/23 [History Last Taken Unknown] estriol (bulk) 100 % powder See Rx Instructions miscellaneous .COMPLEX 11/08/23 [History Last Taken Unknown] glycerin (bulk) 100 % liquid See Rx Instructions .Route .COMPLEX 11/08/23 [History Last Taken Unknown] phenazopyridine 100 mg tablet (Pyridium) 100 mg PO TID PRN pain 6 doses #6 tabs 11/08/23 [Rx Last Taken Unknown] phenazopyridine 200 mg tablet (Pyridium) 200 mg PO TID PRN pain 11/08/23 [History Last Taken Unknown] simvastatin 10 mg tablet 10 mg PO DAILY 11/08/23 [History Last Taken Unknown] sumatriptan succinate 100 mg tablet 100 mg PO Q2H PRN migraine headache 11/08/23 [History Last Taken Unknown] Allergy/AdvReac Type Severity Reaction Status Date / Time No Known Allergies Allergy Verified 11/08/23 15:57 Family History Mother Heart disease Father Heart disease Brother Heart disease CAD (coronary artery disease) Surgical History History of appendectomy History of back surgery History of hysterectomy History of laparoscopic cholecystectomy S/P subdural hematoma evacuation Social History household members: spouse housing: house Smoking Status: Never smoker ROS ROS ED Constitutional Constitutional ED: Denies chills, fever(s) or sweats Eyes Eyes: Denies blurry vision or change in vision ENT ENT ED: Denies ear pain or sore throat Cardiovascular Cardiovascular: Denies chest pain, palpitations or racing heartbeat Respiratory/Chest Respiratory/Chest: Denies cough, dyspnea or sputum Gastrointestinal Gastrointestinal: Denies abdominal pain, constipation, diarrhea, nausea or vomiting Genitourinary Genitourinary ED: Reports dysuria and urinary frequency; Denies hematuria Musculoskeletal Musculoskeletal: Denies arthralgias, myalgias or neck pain Integumentary Denies abscess, Abrasions or rash Neurologic Neurologic: Denies headache(s), paresthesias or weakness Psychiatric Psychiatric: Denies anxiety, depression, suicidal ideation or suicidal thoughts Endocrine Endocrinology: Denies polydipsia or polyuria EXAM Physical Exam Const Vital Signs: 11/08/23 15:59 11/08/23 18:27 Temperature 97.2 F L Temperature Source Temporal Pulse Rate 103 H Respiratory Rate 18 16 Blood Pressure 167/81 H Blood Pressure Mean 109 Pulse Ox 98 Oxygen Delivery Method Room Air General Appearance ED: Negative for pallor HEENT Reports normocephalic, head/scalp atraumatic and moist mucous membranes Eyes PERRL and EOMs intact bilaterally Neck no lymphadenopathy and supple Chest Wall inspection of chest normal and palpation of chest normal Cardio regular rate and regular rhythm GI normal to inspection, nondistended, normoactive bowel sounds and non-distended Auscultation: normoactive bowel sounds Palpation: soft Narrative: Deferred Extremity normal to inspection General Extremety ED: Yes edema and tenderness General Extremity: edema Neuro oriented x3 and CN's II-XII intact bilaterally Sensorium / Orientation: alert Motor Exam: strength 5/5 throughout Psych mental status grossly normal Attitude: No agitated Skin no rashes or lesions noted and no wounds General Skin Exam: Negative for jaundice or pallor MDM MDM MDM Narrative Medical decision making narrative: Patient presenting with dysuria and urinary frequency. She has a history of recurrent UTIs. She sees urology. Urinalysis done today was consistent with UTI. Patient's urine culture shows that she was pansensitive last time she had a UTI. She will be started on Cipro as this is what she used in the past successfully. Urine culture was sent. Patient was given Pyridium and first dose of antibiotics in the ED. Prescription sent to her pharmacy. Return precautions discussed. Impression: 1. UTI Lab Data Attestation: I reviewed the patient's lab results. Labs: Laboratory Results - last 24 hr 11/08/23 16:15 Urine Color SEE COMMENT BELOW Urine Clarity Sl. Cloudy Urine pH 5.0 Ur Specific [place] 1.010 Urine Protein 30 H Urine Glucose (UA) Normal Urine Ketones Negative Urine Occult Blood 250 H Urine Nitrite Positive H Urine Bilirubin 3 H Urine Urobilinogen 8 H Ur Leukocyte Esterase 500 H Urine RBC 10-25 SEEN Urine WBC 10-25 SEEN Ur Squamous Epith Cells 0-5 SEEN Urine Bacteria 1+ Urine Mucus 0 SEEN Discharge Plan Triage Chief Complaint: Complaint ED Provider: Sammy Brewer Dx/Rx/DC Orders Instructions: ED Cystitis Female Adult Prescriptions: New ciprofloxacin HCl [Cipro] 500 mg tablet 500 mg PO BID Qty: 20 0RF phenazopyridine [Pyridium] 100 mg tablet 100 mg PO TID PRN (Reason: pain) Qty: 6 0RF No Action sucralfate 100 mg/mL suspension 10 ml PO QACHS Qty: 1200 0RF methenamine hippurate 1 gram tablet 1 g PO QHS Vitamin C 1,000 mg Capsule, Extended Release 1 cap PO QHS estriol (bulk) 100 % powder See Rx Instructions MISCELLANEOUS .COMPLEX Patient Comments: APPLY 1 GRAM (4 CLICKS)CVAGINALLY DAILY AT BEDTIME FOR 2 WEEKS, THEN TWICE WEEKLY Rx Instructions: APPLY 1 GRAM (4 CLICKS)CVAGINALLY DAILY AT BEDTIME FOR 2 WEEKS, THEN TWICE WEEKLY sumatriptan succinate 100 mg tablet 100 mg PO Q2H PRN (Reason: migraine headache) phenazopyridine [Pyridium] 200 mg tablet 200 mg PO TID PRN (Reason: pain) simvastatin 10 mg tablet 10 mg PO DAILY glycerin (bulk) 100 % liquid See Rx Instructions .ROUTE .COMPLEX Patient Comments: APPLY 1 GRAM (4 CLICKS)CVAGINALLY DAILY AT BEDTIME FOR 2 WEEKS, THEN TWICE WEEKLY Rx Instructions: APPLY 1 GRAM (4 CLICKS)CVAGINALLY DAILY AT BEDTIME FOR 2 WEEKS, THEN TWICE WEEKLY Versatile Rich Cream See Rx Instructions TOPICAL .COMPLEX Patient Comments: APPLY 1 GRAM (4 CLICKS)CVAGINALLY DAILY AT BEDTIME FOR 2 WEEKS, THEN TWICE WEEKLY Rx Instructions: APPLY 1 GRAM (4 CLICKS)CVAGINALLY DAILY AT BEDTIME FOR 2 WEEKS, THEN TWICE WEEKLY lansoprazole 30 mg capsule,delayed release(DR/EC) 30 mg PO QAM Qty: 90 3RF Primary Care Provider: Rangel Santos Referrals: Ragnel Santos MD [Primary Care Provider] - Disposition Disposition: Home, Self Care Discharge Date/Time: 11/08/23 18:27
[2023-11-08] MEDS: Ciprofloxacin 500 MG Tablet PO (18:24)
[2023-11-08 18:27] VITALS: RESP 16
== END 2023-11-08 18:27 | disposition home or self-care (01) ==
PROVIDERS: Emergency Provider Student in an Organized Health Care Education/Training Program; PCP Family Medicine; Visit Provider Student in an Organized Health Care Education/Training Program
DX: N39.0 Urinary tract infection, site not specified (principal); R30.0 Dysuria; R35.0 Frequency of micturition; Z87.440 Personal history of urinary (tract) infections; I10 Essential (primary) hypertension; E78.5 Hyperlipidemia, unspecified
CPT/HCPCS: 81001; 87077; 87086; 87088; 87186; 99282

== ENCOUNTER → 2023-11-08 | Outpatient (CLI) | payer MEDICARE, OTHER, SELFPAY | END | disposition home or self-care (01) | LOC: LAB 10:44 | PROVIDERS: PCP Family Medicine; Referring Provider Urology; Visit Provider Urology | DX: Z87.440 Personal history of urinary (tract) infections (principal) | CPT/HCPCS: 87077; 87086; 87088; 87186 ==

== ENCOUNTER 2024-03-24 03:16 | Emergency (ER) | payer MEDICARE, OTHER, SELFPAY ==
[2024-03-24 03:17] VITALS: BP 186/104; PULSE 104; RESP 16; TEMP 36.6; O2SAT 95; BMI 24.0
[2024-03-24 03:23] VITALS: BP 183/82; PULSE 107; RESP 16; O2SAT 95
[2024-03-24 03:38] LABS: Absolute Lymphocyte Count 1.16 X10^3/uL (0.83-4.51); Absolute Neutrophil Count 10.2 X10^3/uL (2.0-7.7); Basophil# 0.04 X10^3/uL; Basophil% 0.3 % (0-1); Eosinophil# 0.12 X10^3/uL; Hemoglobin 14.6 g/dL (12.0-15.0); Lymphocyte # 1.16 X10^3/ul (0.83-4.51); Lymphocyte % 9.3 % (19-41); Mean Corp Hgb Conc 32.4 g/dL (32-36); Mean Corpuscular Hgb 31.1 pg (27.0-32.0); Mean Corpuscular Volume 95.7 fL (81-99); Mean Platelet Vol. 11.3 fl (6.2-12.0); Monocyte# 0.84 X10^3/uL; Monocyte% 6.7 % (0-10); NRBC Flagged by Analyzer 0 % (0-5); Neutrophil # 10.23 X10^3/uL (2.7-7.7); Neutrophil % 81.9 % (47-70); POSITIVE COUNT YES; Platelet Count 124 K/mm3 (150-450); RBC Distribution Width CV 13.2 % (11.6-14.6); RBC Distribution Width SD 47.1 fl (35.1-43.9); White Blood Count 12.5 K/mm3 (4.4-11.0)
[2024-03-24 03:43] LABS: Bacteria 0 SEEN /hpf (None Seen); Mucous, Urine 0 SEEN /hpf (<or=2+); White Blood Cells 0 SEEN /hpf (0-5)
[2024-03-24 03:46] LABS: Glucose, Dipstick Normal (Normal); Ketone-Dipstick Negative (Negative); Leukocyte Esterase-Dipstick Negative /ul (Negative); Nitrite-Dipstick Negative (Negative); Occult Blood-Urine 25 /ul (Negative); Protein-Dipstick Negative (Negative); Urine Bilirubin Dipstick Negative (Negative); Urine Urobilinogen Normal (Normal)
[2024-03-24 03:52] LABS: Color, Urine Yellow (Yellow); Red Blood Cells-Urine 0-5 SEEN /hpf (0-5); Squamous Epithelial Cells - UA 5-10 SEEN /hpf (5-10); Urine Clarity Clear (Clear)
[2024-03-24 03:57] LABS: ALB/GLOB Ratio 0.9 RATIO (0.9-2.4); AST(SGOT) 13 U/L (15-37); Alanine Aminotransfer ALT/SGPT 18 U/L (13-56); Albumin, Serum 3.1 g/dL (3.2-5.0); Alkaline Phosphatase 56 U/L (45-117); Anion Gap 7 (5-15); BUN 17 mg/dL (7-18); BUN/Creat Ratio 21.5 RATIO (10-20); Calcium,Total 8.5 mg/dL (8.5-10.1); Chloride 108 mmol/L (98-107); Creatinine, Serum 0.79 mg/dL (0.55-1.02); EST Glomerular Filtration Rate 74 mL/min (>60); Est Glom Filt Rate - Afr Amer 90 mL/min (>60); Estimated Creatinine Clearance 48.43 ml/min; Globulin 3.5 g/dL (2.2-4.2); Glucose 144 mg/dL (74-106); Potassium 3.6 mmol/L (3.5-5.1); Protein, Total 6.6 g/dL (6.4-8.2); Sodium Level 139 mmol/L (136-145)
[2024-03-24 04:12] LABS: Differential Indicated SCAN CRITERIA MET
[2024-03-24 04:13] LABS: Differential Comment SCANNED
[2024-03-24 04:15] LABS: Lipase 25 U/L (13-75)
[2024-03-24] MEDS: 0.9% Normal Saline (1000mL) 1,000 ML 999 ML IV (04:19)
[2024-03-24] MEDS: Ondansetron 4 MG/2 ML Vial IV (04:20)
[2024-03-24] MEDS: Dicyclomine 10 MG Capsule 20 MG PO (04:20)
[2024-03-24 05:17] VITALS: BP 150/79; RESP 18
--- NOTE | 2024-03-24 05:59 | EDS_ITS ---
HPI History of Present Illness Chief Complaint: Nausea/Vomiting/Diarrhea Informant: patient Narrative Narrative: Patient is an 78-year-old female with past medical history of hypertension hyperlipidemia as well as Saravia's esophagus. 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 She reports multiple children have been sick. She states she has had generalized abdominal discomfort with multiple bouts of vomiting and diarrhea keeping her from sleeping. She states she is unsure if this is related to exposure from school or if this something more sinister going on and secondary to this she presents for evaluation [facility] Medical History Alcohol use Cardiology follow-up encounter Chronic back pain Cystitis DDD (degenerative disc disease), lumbar Easy bruising Essential (primary) hypertension GERD (gastroesophageal reflux disease) History of echocardiogram History of steroid therapy History of stress test Hx of migraines Hyperlipidemia Hypertension Infection due to ESBL-producing Escherichia coli Non-smoker PONV (postoperative nausea and vomiting) Post-menopausal Spinal stenosis UTI (urinary tract infection) Home Medications ?Medication ?Instructions ?Recorded ?Last Taken ?Type ascorbic acid (vitamin C) 1,000 mg 1 cap PO QHS 04/07/22 Unknown History capsule,extended release methenamine hippurate 1 gram tablet 1 g PO QHS urinary tract health 04/07/22 Unknown History sucralfate 100 mg/mL oral 10 ml PO QACHS #1,200 mL 05/05/22 Unknown Rx suspension cream base no.175 (bulk) See Rx Instructions topical 11/08/23 Unknown History (Versatile Rich topical cream) .COMPLEX estriol (bulk) 100 % powder See Rx Instructions miscellaneous 11/08/23 Unknown History .COMPLEX glycerin (bulk) 100 % liquid See Rx Instructions .Route .COMPLEX 11/08/23 Unknown History phenazopyridine 100 mg tablet 100 mg PO TID PRN pain 6 doses #6 11/08/23 Unknown Rx (Pyridium) tabs simvastatin 10 mg tablet 10 mg PO DAILY 11/08/23 Unknown History sumatriptan succinate 100 mg tablet 100 mg PO Q2H PRN migraine headache 11/08/23 Unknown History beclomethasone dipropionate 80 1 inh inhalation Q12H #10.6 grams 01/31/24 Unknown Rx mcg/actuation HFA breath activated aerosol esomeprazole magnesium 20 mg 20 mg PO DAILY #30 caps 01/31/24 Unknown Rx capsule,delayed release famotidine 20 mg tablet 20 mg PO QHS #60 tabs 01/31/24 Unknown Rx prednisolone 15 mg/5 mL oral 15 mg (5 mL) PO BID #240 mL 01/31/24 Unknown Rx solution dicyclomine 20 mg tablet 20 mg PO 4X/DAY PRN Abdominal 03/24/24 Unknown Rx pain/spasm #28 tabs ondansetron 4 mg disintegrating 4 mg PO TID PRN nausea and 03/24/24 Unknown Rx tablet vomiting #21 tabs Allergy/AdvReac Type Severity Reaction Status Date / Time No Known Allergies Allergy Verified 03/24/24 03:23 Family History Mother Heart disease Father Heart disease Brother Heart disease CAD (coronary artery disease) Surgical History History of appendectomy History of back surgery History of hysterectomy History of laparoscopic cholecystectomy S/P subdural hematoma evacuation Social History household members: spouse housing: house Smoking Status: Never smoker ROS ROS ED Constitutional Constitutional ED: Denies chills or fever(s) ENT ENT ED: Denies sore throat Cardiovascular Cardiovascular: Denies chest pain Respiratory/Chest Respiratory/Chest: Denies cough or dyspnea Gastrointestinal Gastrointestinal: Reports abdominal pain, diarrhea, nausea and vomiting Genitourinary Genitourinary ED: Denies dysuria, hematuria or urinary frequency Musculoskeletal Musculoskeletal: Reports myalgias Integumentary Denies rash Neurologic Neurologic: Denies headache(s) Hematologic/Lymphatic Hematologic/Lymphatic: Denies easy bleeding or easy bruising EXAM Physical Exam Const Vital Signs: 03/24/24 05:17 03/24/24 06:09 Temperature 97.6 F L Pulse Rate 75 Respiratory Rate 18 16 Blood Pressure 150/79 H 150/70 H Blood Pressure Mean 102 96 Pulse Ox 96 Positive well nourished and well developed General Appearance ED: well developed; Negative for pallor HEENT HEENT Narrative: Mucous membranes are slightly dry and tacky without tongue or lip swelling oral lesions airway edema or compromise No secondary findings to suggest infection Eyes PERRL and EOMs intact bilaterally General Eye ED: Negative for scleral icterus Neck supple Neck Narrative: No nuchal rigidity or meningeal signs Resp normal respiratory effort and clear to auscultation bilaterally Cardio regular rate and regular rhythm Rate: other Other Details: Heart is regular rate and rhythm Radial and carotid pulses are equal and symmetric GI non-distended GI Narrative: Abdomen is soft and nondistended with hyperactive bowel sounds. There is mild diffuse pain to palpation without voluntary guarding or rigidity. No pulsatile mass or fluid wave Auscultation: hyperactive bowel sounds Palpation: soft Back/Spine no CVA tenderness Extremity normal to inspection Neuro oriented x3, CN's II-XII intact bilaterally and no sensory deficits noted Sensorium / Orientation: alert Motor Exam: strength 5/5 throughout Psych mental status grossly normal Skin no rashes or lesions noted and no wounds Skin Narrative: Skin turgor slightly increased General Skin Exam: Negative for jaundice or pallor MDM MDM MDM Narrative Medical decision making narrative: Patient presented to the ER hypertensive but has a past medical history of this and otherwise with stable vitals. She reported episodes of nausea vomiting and diarrhea. Differential diagnosis is for viral stomach infection such as [place] or rotavirus versus acute kidney injury versus electrolyte abnormality versus potential biliary colic versus acute cholecystitis versus pancreatitis. Secondary to his basic labs were obtained. I did not feel the need for a CT scan as patient's abdomen is soft and nonsurgical on exam. Labs showed mild leukocytosis but otherwise no clinically significant findings. After being christina jaxson patient had improvement of her symptoms no further bouts of vomiting or diarrhea while in the ER. She has not been on antibiotics or travel outside the country and therefore I do not feel there is need for stool studies at this time. On reevaluation her abdomen remains soft and nonsurgical and patient reports feeling much better and therefore she will be discharged home with symptomatic care History & Record Review Discussion w/independent historian: Patient and Significant other Lab Data Attestation: I reviewed the patient's lab results. Labs: Laboratory Results - last 24 hr 03/24/24 03/24/24 03/24/24 03:25 03:36 04:07 WBC 12.5 H RBC 4.70 Hgb 14.6 Hct 45.0 MCV 95.7 MCH 31.1 MCHC 32.4 RDW Std Deviation 47.1 H RDW Coeff of Cecilia 13.2 Plt Count 124 L MPV 11.3 Immature Gran % (Auto) 0.800 Neut % (Auto) 81.9 H Lymph % (Auto) 9.3 L [place] % (Auto) 6.7 Eos % (Auto) 1.0 Baso % (Auto) 0.3 Absolute Neuts (auto) 10.2 H Absolute Lymphs (auto) 1.16 Nucleated RBC % 0 Differential Comment SCANNED Sodium 139 Potassium 3.6 Chloride 108 H Carbon Dioxide 24.0 Anion Gap 7 BUN 17 Creatinine 0.79 Estim Creat Clear Calc 48.43 Est GFR (MDRD) Af Amer 90 Est GFR (MDRD) Non-Af 74 BUN/Creatinine Ratio 21.5 H Glucose 144 H Calcium 8.5 Total Bilirubin 0.40 AST 13 L ALT 18 Alkaline Phosphatase 56 Total Protein 6.6 Albumin 3.1 L Globulin 3.5 Albumin/Globulin Ratio 0.9 Lipase 25 Urine Color Yellow Urine Clarity Clear Urine pH 6.0 Ur Specific [place] 1.010 Urine Protein Negative Urine Glucose (UA) Normal Urine Ketones Negative Urine Occult Blood 25 H Urine Nitrite Negative Urine Bilirubin Negative Urine Urobilinogen Normal Ur Leukocyte Esterase Negative Urine RBC 0-5 SEEN Urine WBC 0 SEEN Ur Squamous Epith Cells 5-10 SEEN Urine Bacteria 0 SEEN Urine Mucus 0 SEEN Discharge Plan Triage Chief Complaint: Nausea/Vomiting/Diarrhea ED Provider: Arash Caldwell Dx/Rx/DC Orders Clinical Impression: Nausea vomiting and diarrhea, Essential (primary) hypertension, Hyperlipidemia Instructions: ED Diet Vomiting Diarrhea, ED Gastroenteritis, Viral (Adult) Prescriptions: New ondansetron 4 mg tablet,disintegrating 4 mg PO TID PRN (Reason: nausea and vomiting) Qty: 21 0RF dicyclomine 20 mg tablet 20 mg PO 4X/DAY PRN (Reason: Abdominal pain/spasm) Qty: 28 0RF No Action sucralfate 100 mg/mL suspension 10 ml PO QACHS Qty: 1200 0RF famotidine 20 mg tablet 20 mg PO QHS Qty: 60 3RF prednisolone 15 mg/5 mL solution 15 mg PO BID Qty: 240 3RF esomeprazole magnesium 20 mg capsule,delayed release(DR/EC) 20 mg PO DAILY Qty: 30 5RF beclomethasone dipropionate 80 mcg/actuation HFA aerosol breath activated 1 inh inhalation Q12H Qty: 10.6 3RF methenamine hippurate 1 gram tablet 1 g PO QHS Vitamin C 1,000 mg Capsule, Extended Release 1 cap PO QHS estriol (bulk) 100 % powder See Rx Instructions MISCELLANEOUS .COMPLEX Patient Comments: APPLY 1 GRAM (4 CLICKS)CVAGINALLY DAILY AT BEDTIME FOR 2 WEEKS, THEN TWICE WEEKLY Rx Instructions: APPLY 1 GRAM (4 CLICKS)CVAGINALLY DAILY AT BEDTIME FOR 2 WEEKS, THEN TWICE WEEKLY sumatriptan succinate 100 mg tablet 100 mg PO Q2H PRN (Reason: migraine headache) simvastatin 10 mg tablet 10 mg PO DAILY glycerin (bulk) 100 % liquid See Rx Instructions .ROUTE .COMPLEX Patient Comments: APPLY 1 GRAM (4 CLICKS)CVAGINALLY DAILY AT BEDTIME FOR 2 WEEKS, THEN TWICE WEEKLY Rx Instructions: APPLY 1 GRAM (4 CLICKS)CVAGINALLY DAILY AT BEDTIME FOR 2 WEEKS, THEN TWICE WEEKLY Versatile Rich Cream See Rx Instructions TOPICAL .COMPLEX Patient Comments: APPLY 1 GRAM (4 CLICKS)CVAGINALLY DAILY AT BEDTIME FOR 2 WEEKS, THEN TWICE WEEKLY Rx Instructions: APPLY 1 GRAM (4 CLICKS)CVAGINALLY DAILY AT BEDTIME FOR 2 WEEKS, THEN TWICE WEEKLY phenazopyridine [Pyridium] 100 mg tablet 100 mg PO TID PRN (Reason: pain) Qty: 6 0RF Primary Care Provider: Rangel Santos Referrals: Rangel Santos MD [Primary Care Provider] - Print Language: Korean Disposition Disposition: Home, Self Care Discharge Date/Time: 03/24/24 06:10
[2024-03-24 06:09] VITALS: BP 150/70; PULSE 75; RESP 16; TEMP 36.4; O2SAT 96
== END 2024-03-24 06:10 | disposition home or self-care (01) ==
PROVIDERS: Emergency Provider Emergency Medicine; PCP Family Medicine; Visit Provider Emergency Medicine
DX: R11.2 Nausea with vomiting, unspecified (principal); E78.5 Hyperlipidemia, unspecified; I10 Essential (primary) hypertension; R19.7 Diarrhea, unspecified; K22.70 Barrett's esophagus without dysplasia; K21.9 Gastro-esophageal reflux disease without esophagitis
CPT/HCPCS: 80053; 81001; 83690; 85025; 96361; 96374; 99282; J7030; A4216; J2405

== ENCOUNTER 2024-04-01 13:03 | Observation (INO) | payer MEDICARE, OTHER, SELFPAY ==
[2024-04-01] VITALS (8 sets, daily range): BP systolic 128–162; BP diastolic 74–103; PULSE 79–139; RESP 16–20; TEMP 35.9–37.9; O2SAT 90–97; BMI 23.1; BMI 23.6
--- NOTE | 2024-04-01 13:24 | RAD_ITS ---
STUDY: X-RAY CHEST REASON FOR EXAM: Female, 78 years old. fever cough TECHNIQUE: Single AP portable view of the chest. COMPARISON: 08/05/2016. FINDINGS: The lungs are clear and expanded. There is no demonstrated pleural abnormality. Normal size heart. Normal mediastinum and opal. Normal visualized pulmonary arteries. Normal visualized aortic arch and descending thoracic aorta. Normal visualized thoracic spine. Normal visualized ribs, clavicles, and shoulders. There is no demonstrated abnormality of the visualized soft tissue structures of the upper abdomen. RAD/Chest 1 View (Portable) IMPRESSION: Normal x-ray examination of the chest. Electronically Signed: Negro Morales MD at 19:33 EDT ,
--- NOTE | 2024-04-01 13:24 | EKG12_ITS ---
Test Reason : FEVER Blood Pressure : / mmHG Vent. Rate : 130 BPM Atrial Rate : 130 BPM P-R Int : 132 ms QRS Dur : 068 ms QT Int : 290 ms P-R-T Axes : 043 -29 053 degrees QTc Int : 426 ms Sinus tachycardia with Premature atrial complexes Otherwise normal ECG Confirmed by Puneet Allen ([id number]), associate entertainment editor DERICK MEANS ([id number]) on 04/08/2024 1:31:29 PM Referred By: Confirmed By:Puneet Allen
--- NOTE | 2024-04-01 13:27 | EX.ED.DYSGE1 ---
HPI <Dr. Amari Mistry, DO - Last Filed: 04/02/24 07:05> History of Present Illness Chief Complaint: Fever Informant: patient, spouse/S.O. and family Narrative Narrative: 78 year old Female presents to ED with fever. 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 They were noted to have viruses. Patient went to yesterday with a temp of 100.8. She reports having a negative covid/influenza/rsv test. She states she was told to come to ED if it went higher. Today reports a new thermometer read 104 and she states her son is a doctor who told her to not take anything for it so as not to mask it. She states she had tylenol yesterday. She denies any body aches, headaches, abdominal pain. She notes urinary frequency and a history of UTIs. She denies N/V flank pain. She denies rashes or swelling of extremities. Family states her face looks puffy. PFSH <Dr. Amari Mistry, - Last Filed: 04/02/24 07:05> [facility] Medical History Post-menopausal Alcohol use History of steroid therapy Easy bruising PONV (postoperative nausea and vomiting) Non-smoker Cardiology follow-up encounter History of echocardiogram History of stress test Hypertension Hx of migraines UTI (urinary tract infection) DDD (degenerative disc disease), lumbar Spinal stenosis Chronic back pain Cystitis GERD (gastroesophageal reflux disease) Infection due to ESBL-producing Escherichia coli Essential (primary) hypertension Hyperlipidemia Home Medications ?Medication ?Instructions ?Recorded ?Last Taken ?Type ascorbic acid (vitamin C) 1,000 mg 1 cap PO QHS 04/07/22 Unknown History capsule,extended release methenamine hippurate 1 gram tablet 1 g PO QHS urinary tract health 04/07/22 Unknown History simvastatin 10 mg tablet 10 mg PO DAILY 11/08/23 Unknown History sumatriptan succinate 100 mg tablet 100 mg PO Q2H PRN migraine headache 11/08/23 Unknown History beclomethasone dipropionate 80 1 inh inhalation Q12H #10.6 grams 01/31/24 Unknown Rx mcg/actuation HFA breath activated aerosol esomeprazole magnesium 20 mg 20 mg PO DAILY #30 caps 01/31/24 Unknown Rx capsule,delayed release famotidine 20 mg tablet 20 mg PO QHS #60 tabs 01/31/24 Unknown Rx prednisolone 15 mg/5 mL oral 15 mg (5 mL) PO BID #240 mL 01/31/24 Unknown Rx solution ondansetron 4 mg disintegrating 4 mg PO TID PRN nausea and 03/24/24 Unknown Rx tablet vomiting #21 tabs Allergy/AdvReac Type Severity Reaction Status Date / Time No Known Allergies Allergy Verified 03/24/24 03:23 Family History Mother Heart disease Father Heart disease Brother Heart disease CAD (coronary artery disease) Surgical History History of back surgery S/P subdural hematoma evacuation History of appendectomy History of laparoscopic cholecystectomy History of hysterectomy Social History household members: spouse housing: house Smoking Status: Never smoker ROS <Dr. Amari Mistry DO - Last Filed: 04/02/24 07:05> ROS ED Constitutional Constitutional ED: Reports chills, fever(s) and malaise; Denies weight loss Eyes Eyes: Denies change in vision or diplopia ENT ENT ED: Reports rhinorrhea and other Details: scratchy throat ; Denies ear pain or sore throat Cardiovascular Cardiovascular: Denies chest pain, orthopnea, palpitations or racing heartbeat Respiratory/Chest Respiratory/Chest: Reports dry cough and other Details: cough dry and chronic ; Denies dyspnea or orthopnea Gastrointestinal Gastrointestinal: Reports diarrhea and other Details: yesterday - none since, solid stool today ; Denies abdominal pain, nausea or vomiting Genitourinary Genitourinary ED: Denies dysuria, hematuria or urinary frequency Musculoskeletal Musculoskeletal: Denies arthralgias or myalgias Integumentary Denies abscess or rash Neurologic Neurologic: Denies headache(s) or weakness Psychiatric Psychiatric: Denies anxiety, depression, suicidal ideation or suicidal thoughts Endocrine Endocrinology: Denies polydipsia, polyphagia or polyuria Allergic/Immunologic Allergic/Immunologic ED: Denies mouth swelling, tongue swelling or urticaria EXAM <Dr. Amari Mistry DO - Last Filed: 04/02/24 07:05> Physical Exam Narrative Exam Narrative: Oral temp 99.2/99.1 on my oral temperature Const Vital Signs: 04/01/24 13:03 04/01/24 15:03 04/01/24 16:27 Temperature 98.2 F 98.4 F 98.3 F Temperature Source Temporal Oral Temporal Pulse Rate 139 H 81 Respiratory Rate 20 H 16 Blood Pressure 144/103 H 141/88 H Blood Pressure Mean 116 105 Pulse Ox 95 92 Oxygen Delivery Method Room Air Room Air Positive well nourished and well developed General Appearance ED: well developed HEENT Reports normocephalic, head/scalp atraumatic and moist mucous membranes Eyes PERRL and EOMs intact bilaterally Neck no lymphadenopathy, supple and no JVD Resp normal respiratory effort and clear to auscultation bilaterally Cardio regular rate, regular rhythm and no murmurs GI normal to inspection, nondistended, normoactive bowel sounds and non-tender Palpation: soft Back/Spine no CVA tenderness and normal ROM Extremity normal to inspection General Extremety ED: Negative for edema General Extremity: Negative for edema Neuro oriented x3 and CN's II-XII intact bilaterally Sensorium / Orientation: alert Motor Exam: strength 5/5 throughout Psych mental status grossly normal Mood & Affect: Negative for depressed or tearful Skin no rashes or lesions noted and no wounds <Cole Wolf MD - Last Filed: 04/01/24 16:49> Physical Exam Const Vital Signs: 04/01/24 13:03 04/01/24 15:03 04/01/24 16:27 Temperature 98.2 F 98.4 F 98.3 F Temperature Source Temporal Oral Temporal Pulse Rate 139 H 81 Respiratory Rate 20 H 16 Blood Pressure 144/103 H 141/88 H Blood Pressure Mean 116 105 Pulse Ox 95 92 Oxygen Delivery Method Room Air Room Air MDM <Dr. Amari Mistry DO - Last Filed: 04/02/24 07:05> [facility] Narrative Medical decision making narrative: Initial white count of 13 hemoglobin of 14. Creatinine 0.90. Lactic acid is 1.8. TSH is low at 0.31. Liver enzymes within normal limits. My independent interpretation of the chest x-ray is no acute process. Patient received a liter of IV fluids and Tylenol. Her heart rate is significantly improved. Blood pressure has been stable. We are currently awaiting a urine specimen for analysis. Care of the patient will be reassigned to the oncoming physician for check of the urine and final disposition. History & Record Review Discussion w/independent historian: Patient Additional record(s) reviewed:: Prior outpatient record and Prior labs Lab Data Attestation: I reviewed the patient's lab results. Labs: Laboratory Results - last 24 hr 04/01/24 04/01/24 04/01/24 13:40 15:00 15:05 WBC 13.0 H RBC 4.69 Hgb 14.4 Hct 45.8 MCV 97.7 MCH 30.7 MCHC 31.4 L RDW Std Deviation 46.6 H RDW Coeff of Cecilia 13.1 Plt Count 240 MPV 9.5 Immature Gran % (Auto) 1.200 H Neut % (Auto) 79.5 H Lymph % (Auto) 11.5 L [place] % (Auto) 6.1 Eos % (Auto) 1.2 Baso % (Auto) 0.5 Absolute Neuts (auto) 10.3 H Absolute Lymphs (auto) 1.50 Nucleated RBC % 0 Sodium 137 Potassium 3.9 Chloride 106 Carbon Dioxide 23.0 Anion Gap 8 BUN 18 Creatinine 0.90 Estim Creat Clear Calc 43.05 Est GFR (MDRD) Af Amer 77 Est GFR (MDRD) Non-Af 64 BUN/Creatinine Ratio 20.0 Glucose 110 H Lactic Acid 1.8 Calcium 9.0 Total Bilirubin 0.70 AST 13 L ALT 15 Alkaline Phosphatase 66 Troponin I High Sens Cancelled 7 Total Protein 6.7 Albumin 2.8 L Globulin 3.9 Albumin/Globulin Ratio 0.7 L TSH Cancelled 0.31 L Urine Color Yellow Urine Clarity Sl. Cloudy Urine pH 7.0 Ur Specific [place] 1.010 Urine Protein 30 H Urine Glucose (UA) Normal Urine Ketones 5 H Urine Occult Blood 150 H Urine Nitrite Negative Urine Bilirubin Negative Urine Urobilinogen Normal Ur Leukocyte Esterase 500 H Urine RBC 0-5 SEEN Urine WBC 10-25 SEEN Ur Squamous Epith Cells 0 SEEN Urine Bacteria 2+ Urine Mucus 0 SEEN Radiography Diagnostic Testing: Clinical Impression(s) from Imaging Studies Chest X-Ray 04/01/24 13:24 IMPRESSION: Normal x-ray examination of the chest. Electronically Signed: Negro Morales MD at 19:33 EDT , Management Discussion w/another healthcare provider: Hospitalist <Cole Wolf MD - Last Filed: 04/01/24 16:49> [facility] Lab Data Labs: Laboratory Results - last 24 hr 04/01/24 04/01/24 04/01/24 13:40 15:00 15:05 WBC 13.0 H RBC 4.69 Hgb 14.4 Hct 45.8 MCV 97.7 MCH 30.7 MCHC 31.4 L RDW Std Deviation 46.6 H RDW Coeff of Cecilia 13.1 Plt Count 240 MPV 9.5 Immature Gran % (Auto) 1.200 H Neut % (Auto) 79.5 H Lymph % (Auto) 11.5 L [place] % (Auto) 6.1 Eos % (Auto) 1.2 Baso % (Auto) 0.5 Absolute Neuts (auto) 10.3 H Absolute Lymphs (auto) 1.50 Nucleated RBC % 0 Sodium 137 Potassium 3.9 Chloride 106 Carbon Dioxide 23.0 Anion Gap 8 BUN 18 Creatinine 0.90 Estim Creat Clear Calc 43.05 Est GFR (MDRD) Af Amer 77 Est GFR (MDRD) Non-Af 64 BUN/Creatinine Ratio 20.0 Glucose 110 H Lactic Acid 1.8 Calcium 9.0 Total Bilirubin 0.70 AST 13 L ALT 15 Alkaline Phosphatase 66 Troponin I High Sens Cancelled 7 Total Protein 6.7 Albumin 2.8 L Globulin 3.9 Albumin/Globulin Ratio 0.7 L TSH Cancelled 0.31 L Urine Color Yellow Urine Clarity Sl. Cloudy Urine pH 7.0 Ur Specific [place] 1.010 Urine Protein 30 H Urine Glucose (UA) Normal Urine Ketones 5 H Urine Occult Blood 150 H Urine Nitrite Negative Urine Bilirubin Negative Urine Urobilinogen Normal Ur Leukocyte Esterase 500 H Urine RBC 0-5 SEEN Urine WBC 10-25 SEEN Ur Squamous Epith Cells 0 SEEN Urine Bacteria 2+ Urine Mucus 0 SEEN Radiography Diagnostic Testing: Clinical Impression(s) from Imaging Studies Chest X-Ray 04/01/24 13:24 IMPRESSION: Normal x-ray examination of the chest. Electronically Signed: Negro Morales MD at 19:33 EDT , Treatment and Re-Evaluation :: Patient endorsed to me by Dr. Mistry to check the UA on this patient with reported fever. UA returned with WBC 10-25 and negative nitrites. Urine sent for culture. She was given oral cephalexin here in the ED with anticipation for discharge. However, her son Nate Ferris is at the bedside and was concerned about his mother having been in and out of the hospital with sepsis, and would like her discussed with the hospitalist for observation. I discussed the patient with Dr. Rico who requested a lactic acid be drawn as she had been tachycardic previously and has a leukocytosis of 13. Disposition is assigned to observation. Patient is in stable condition. Discharge Plan Dx/Rx/DC Orders Clinical Impression: UTI (urinary tract infection), Leukocytosis Disposition Disposition: Acute Care Hospital [facility] Discharge Date/Time: 04/01/24 17:01
[2024-04-01] MEDS: 0.9% Normal Saline (1000mL) 1,000 ML 1000 ML IV (13:35)
[2024-04-01] MEDS: Acetaminophen 500 MG Tablet 1000 MG PO (13:35)
[2024-04-01 13:53] LABS: Absolute Neutrophil Count 10.3 X10^3/uL (2.0-7.7); Basophil# 0.07 X10^3/uL; Basophil% 0.5 % (0-1); Eosinophil# 0.16 X10^3/uL; Eosinophils% 1.2 % (0-5); Hematocrit 45.8 % (37-47); Hemoglobin 14.4 g/dL (12.0-15.0); Lymphocyte % 11.5 % (19-41); Mean Corp Hgb Conc 31.4 g/dL (32-36); Mean Corpuscular Hgb 30.7 pg (27.0-32.0); Mean Corpuscular Volume 97.7 fL (81-99); Mean Platelet Vol. 9.5 fl (6.2-12.0); Monocyte% 6.1 % (0-10); NRBC Flagged by Analyzer 0 % (0-5); Neutrophil # 10.34 X10^3/uL (2.7-7.7); Neutrophil % 79.5 % (47-70); Platelet Count 240 K/mm3 (150-450); RBC Distribution Width CV 13.1 % (11.6-14.6); RBC Distribution Width SD 46.6 fl (35.1-43.9); Red Blood Count 4.69 M/mm3 (4.2-5.4)
[2024-04-01 14:10] LABS: ALB/GLOB Ratio 0.7 RATIO (0.9-2.4); AST(SGOT) 13 U/L (15-37); Alanine Aminotransfer ALT/SGPT 15 U/L (13-56); Albumin, Serum 2.8 g/dL (3.2-5.0); Alkaline Phosphatase 66 U/L (45-117); Anion Gap 8 (5-15); BUN 18 mg/dL (7-18); Chloride 106 mmol/L (98-107); EST Glomerular Filtration Rate 64 mL/min (>60); Est Glom Filt Rate - Afr Amer 77 mL/min (>60); Estimated Creatinine Clearance 43.05 ml/min; Globulin 3.9 g/dL (2.2-4.2); Glucose 110 mg/dL (74-106); Potassium 3.9 mmol/L (3.5-5.1); Protein, Total 6.7 g/dL (6.4-8.2); Sodium Level 137 mmol/L (136-145)
[2024-04-01 14:21] LABS: Lactic Acid 1.8 mmol/L (0.4-1.9)
[2024-04-01 15:27] LABS: Mucous, Urine 0 SEEN /hpf (<or=2+); Squamous Epithelial Cells - UA 0 SEEN /hpf (5-10)
[2024-04-01 15:41] LABS: Color, Urine Yellow (Yellow); Glucose, Dipstick Normal (Normal); Ketone-Dipstick 5 mg/dl (Negative); Leukocyte Esterase-Dipstick 500 /ul (Negative); Nitrite-Dipstick Negative (Negative); Occult Blood-Urine 150 /ul (Negative); Protein-Dipstick 30 mg/dl (Negative); Urine Bilirubin Dipstick Negative (Negative); Urine Clarity Sl. Cloudy (Clear); Urine Urobilinogen Normal (Normal)
[2024-04-01 15:45] LABS: Thyroid Stim Hormone (TSH) 0.31 uIU/mL (0.358-3.74); Troponin-I HS 7 pg/mL (3.0-54.0)
[2024-04-01 15:52] LABS: Bacteria 2+ /hpf (None Seen); Red Blood Cells-Urine 0-5 SEEN /hpf (0-5); White Blood Cells 10-25 SEEN /hpf (0-5)
--- NOTE | 2024-04-01 16:22 | NURSING ---
PAGED HOSPITALIST THROUGH PHONE. INTERNET DOWN
[2024-04-01] MEDS: Cephalexin 250 MG Capsule 500 MG PO (16:25)
--- NOTE | 2024-04-01 16:37 | NURSING ---
DR CHAKRABORTY FOR DR GONZALES
--- NOTE | 2024-04-01 16:45 | NURSING ---
MED SURG OBS AGYEPONG UTI, SIRS
--- NOTE | 2024-04-01 16:50 | HP.PCM.HOS_ITS ---
HPI - General General Date of Admission: 04/01/24 Date of Service: 04/01/24 Chief Complaint: Fever HPI Narrative GREGG TEIXEIRA, is a 78 F with a significant history of HTN; HLD; and Raúl esophagitis who presents with a fever. Reportedly her home temperature via a new thermometer was 104 degrees Fahrenheit. However, at the ED patient's temperature was 99 degrees Fahrenheit. Empirically patient's was given tylenol on arrival at the ED. In addition patient reports of flu-like symptoms of malaise; rhinorrhea and yellow productive cough. Also, she had chills. Her symptoms began three days ago and it has been improving. Unlike in the past when she had UTI; on presentation patient had no urinary symptoms. At the ED her urine was mildly abnormal. Patient was given keflex; and with the plan to discharge patient home. However, her son who is an Pig Machine Operator at [employer] reported that patient has been septic in the past from UTI so patient should be at least observed at the Hospital overnight. [facility] Medical History Post-menopausal Alcohol use History of steroid therapy Easy bruising PONV (postoperative nausea and vomiting) Non-smoker Cardiology follow-up encounter History of echocardiogram History of stress test Hypertension Hx of migraines UTI (urinary tract infection) DDD (degenerative disc disease), lumbar Spinal stenosis Chronic back pain Cystitis GERD (gastroesophageal reflux disease) Infection due to ESBL-producing Escherichia coli Essential (primary) hypertension Hyperlipidemia Home Medications ?Medication ?Instructions ?Recorded ?Last Taken ?Type ascorbic acid (vitamin C) 1,000 mg 1 cap PO QHS 04/07/22 Unknown History capsule,extended release methenamine hippurate 1 gram tablet 1 g PO QHS urinary tract health 04/07/22 Unknown History simvastatin 10 mg tablet 10 mg PO DAILY 11/08/23 Unknown History sumatriptan succinate 100 mg tablet 100 mg PO Q2H PRN migraine headache 11/08/23 Unknown History beclomethasone dipropionate 80 1 inh inhalation Q12H #10.6 grams 01/31/24 Unknown Rx mcg/actuation HFA breath activated aerosol esomeprazole magnesium 20 mg 20 mg PO DAILY #30 caps 01/31/24 Unknown Rx capsule,delayed release famotidine 20 mg tablet 20 mg PO QHS #60 tabs 01/31/24 Unknown Rx prednisolone 15 mg/5 mL oral 15 mg (5 mL) PO BID #240 mL 01/31/24 Unknown Rx solution ondansetron 4 mg disintegrating 4 mg PO TID PRN nausea and 03/24/24 Unknown Rx tablet vomiting #21 tabs Allergy/AdvReac Type Severity Reaction Status Date / Time No Known Allergies Allergy Verified 03/24/24 03:23 Family History Mother Heart disease Father Heart disease Brother Heart disease CAD (coronary artery disease) Surgical History History of back surgery S/P subdural hematoma evacuation History of appendectomy History of laparoscopic cholecystectomy History of hysterectomy Social History household members: spouse housing: house Smoking Status: Never smoker ROS ROS Narrative Complete review of all systems was negative except as stated above. Vital Signs Vital Signs Vital Signs: 04/01/24 13:03 04/01/24 15:03 04/01/24 16:27 Temperature 98.2 F 98.4 F 98.3 F Temperature Source Temporal Oral Temporal Pulse Rate 139 H 81 Respiratory Rate 20 H 16 Blood Pressure 144/103 H 141/88 H Blood Pressure Mean 116 105 Pulse Ox 95 92 Oxygen Delivery Method Room Air Room Air Weight Weight: 61.008 kg Body Mass Index (BMI) 23.1 Physical Exam Narrative Physical exam: General: Well-nourished, well-developed. Head: Normocephalic, atraumatic, no tenderness Eyes: Vision is grossly intact. EOMI ENT, no trauma, moist mucous membranes, no rhinorrhea Neck: Nontender, No thyromegaly. CVS: Regular rate and rhythm. S1-S2 present. No murmur, gallop or rub. Respiratory : clear to auscultation bilaterally, chest wall nontender Abdomen: Soft, nontender, nondistended, normal bowel sounds, no masses : Deferred Back: Nontender, no CVA tenderness, no midline spinal tenderness, deformities, step-offs Extremities: Nontender full range of motion, no trauma Skin: Normal color, no trauma, abrasions Neuro: Alert, oriented, cranial nerves II through XII grossly intact. Psychiatry: Normal mood. Normal affect. Not depressed. Not anxious. Const alert, oriented x3 and no apparent distress General Appearance: cooperative HEENT normocephalic and head/scalp atraumatic Mouth: oral and palatal mucosa normal Eyes PERRL and EOMs intact bilaterally Neck no lymphadenopathy and no JVD Resp normal respiratory effort, no retractions and no use of accessory muscles Cardio regular rate GI normal to inspection, nondistended, normoactive bowel sounds Extremity normal to inspection, full ROM and no clubbing, cyanosis or edema Neuro CN's II-XII intact bilaterally Sensorium / Orientation: awake and alert Psych affect normal Results Lab / Micro Data 04/01/24 13:40 04/01/24 13:40 Labs: Laboratory Results - last 24 hr 04/01/24 13:40: WBC 13.0 H, RBC 4.69, Hgb 14.4, Hct 45.8, MCV 97.7, MCH 30.7, M CHC 31.4 L, RDW Std Deviation 46.6 H, RDW Coeff of Cecilia 13.1, Plt Count 240, MPV 9.5, Immature Gran % (Auto) 1.200 H, Neut % (Auto) 79.5 H, Lymph % (Auto) 11.5 L , [place] % (Auto) 6.1, Eos % (Auto) 1.2, Baso % (Auto) 0.5, Absolute Neuts (auto) 10.3 H, Absolute Lymphs (auto) 1.50, Nucleated RBC % 0, Sodium 137, Potassium 3.9, Chloride 106, Carbon Dioxide 23.0, Anion Gap 8, BUN 18, Creatinine 0.90, Estim Creat Clear Calc 43.05, Est GFR (MDRD) Af Amer 77, Est GFR (MDRD) Non-Af 64, BUN/Creatinine Ratio 20.0, Glucose 110 H, Lactic Acid 1.8, Calcium 9.0, Total Bilirubin 0.70, AST 13 L, ALT 15, Alkaline Phosphatase 66, Troponin I High Sens Cancelled, Total Protein 6.7, Albumin 2.8 L, Globulin 3.9, Albumin/Globulin Ratio 0.7 L, TSH Cancelled 04/01/24 15:00: Urine Color Yellow, Urine Clarity Sl. Cloudy, Urine pH 7.0, Ur Specific [place] 1.010, Urine Protein 30 H, Urine Glucose (UA) Normal, Urine Ketones 5 H, Urine Occult Blood 150 H, Urine Nitrite Negative, Urine Bilirubin Negative, Urine Urobilinogen Normal, Ur Leukocyte Esterase 500 H, Urine RBC 0-5 SEEN, Urine WBC 10-25 SEEN, Ur Squamous Epith Cells 0 SEEN, Urine Bacteria 2+, Urine Mucus 0 SEEN 04/01/24 15:05: Troponin I High Sens 7, TSH 0.31 L Assessment & Plan Assessment/Plan (1) UTI (urinary tract infection): QUALIFIERS: Urinary tract infection type: acute cystitis H ematuria presence: without hematuria Qualified Code(s): N30.00 - Acute cystitis without hematuria (2) Viral illness: (3) Cardiac arrhythmia: QUALIFIERS: Arrhythmia type: unspecified cardiac arrhythmia Q ualified Code(s): I49.9 - Cardiac arrhythmia, unspecified (4) Cough: QUALIFIERS: Cough type: acute Qualified Code(s): R05.1 - Acute cough (5) Essential (primary) hypertension: PLAN: Plan Acute Cystitis Patient found to meet SIRS criteria with tachycardia of 12,000 and tachycardia with heart rate of more than 90. Mild pyuria Rest of indices on urinalysis was unremarkable. With hx of multiple UTI and patient having being on or still on methenamine hippurate treated as acute cystitis. Rocephin ordered. Follow urine cultures. Trend CBC and BMP Tachycardia EKG was personally interpreted by myself with readings as: Sinus tachycardia with PACs. Patient with a history of a cardiac arrhythmia. Was given IV fluids in the emergency department and brought heart rate down. IV fluids continued. Present chicken boner. Viral Illness From patient's symptomatology has symptoms could be from viral illness. Patient did not want any medicine for cough. IV fluids as above. As needed Tylenol as needed. Hypertension Blood pressure is stable. Trend. History of Saravia's esophagitis Patient sees GI. Reportedly was placed on acid reducers; and prednisolone. Patient stopped prednisolone for about 2 weeks. Will not reorder. DVT Prophylaxis Subcutaneous Lovenox ordered. Case was discussed with ED physician who recommended admission
[2024-04-01 17:45] LABS: Lactic Acid 1.1 mmol/L (0.4-1.9)
[2024-04-01] MEDS: 0.9% Normal Saline (1000mL) 1,000 ML 75 ML IV (17:50)
[2024-04-01] MEDS: Ceftriaxone 1 GM/50 ML BAG IV (18:56)
[2024-04-01] MEDS: Famotidine 20 MG Tablet PO (21:32)
[2024-04-01] MEDS: Atorvastatin Calcium 10 MG Tablet 5 MG PO (21:32)
[2024-04-01] MEDS: Ascorbic Acid 500 MG Tablet 1000 MG PO (22:24)
[2024-04-01] MEDS: Methenamine Hippurate 1 GM Tablet PO (22:25)
[2024-04-01] MEDS: Acetaminophen 325 MG Tablet 650 MG PO (23:52)
[2024-04-02] VITALS (7 sets, daily range): BP systolic 126–136; BP diastolic 67–86; PULSE 62–118; RESP 12–18; TEMP 36.7–37.5; O2SAT 90–100
[2024-04-02] MEDS: 0.9% Normal Saline (1000mL) 1,000 ML 75 ML IV (06:42)
[2024-04-02] MEDS: Budesonide Respules 0.5 MG/2 ML AMPUL.NEB. INHALATION (07:26)
[2024-04-02 07:39] LABS: Absolute Lymphocyte Count 1.65 X10^3/uL (0.83-4.51); Absolute Neutrophil Count 9.7 X10^3/uL (2.0-7.7); Basophil# 0.05 X10^3/uL; Basophil% 0.4 % (0-1); Eosinophil# 0.24 X10^3/uL; Eosinophils% 1.9 % (0-5); Hematocrit 40.4 % (37-47); Hemoglobin 12.8 g/dL (12.0-15.0); Lymphocyte # 1.65 X10^3/ul (0.83-4.51); Mean Corp Hgb Conc 31.7 g/dL (32-36); Mean Corpuscular Hgb 30.6 pg (27.0-32.0); Mean Corpuscular Volume 96.7 fL (81-99); Mean Platelet Vol. 9.8 fl (6.2-12.0); Monocyte# 0.83 X10^3/uL; Monocyte% 6.6 % (0-10); NRBC Flagged by Analyzer 0 % (0-5); Neutrophil # 9.71 X10^3/uL (2.7-7.7); Neutrophil % 76.8 % (47-70); Platelet Count 234 K/mm3 (150-450); RBC Distribution Width CV 13.1 % (11.6-14.6); RBC Distribution Width SD 46.5 fl (35.1-43.9); Red Blood Count 4.18 M/mm3 (4.2-5.4); White Blood Count 12.7 K/mm3 (4.4-11.0)
[2024-04-02 08:05] LABS: Anion Gap 6 (5-15); BUN 13 mg/dL (7-18); BUN/Creat Ratio 18.7 RATIO (10-20); Calcium,Total 8.2 mg/dL (8.5-10.1); Chloride 111 mmol/L (98-107); EST Glomerular Filtration Rate 86 mL/min (>60); Est Glom Filt Rate - Afr Amer 104 mL/min (>60); Estimated Creatinine Clearance 48.43 ml/min; Glucose 104 mg/dL (74-106); Potassium 3.4 mmol/L (3.5-5.1); Sodium Level 139 mmol/L (136-145)
[2024-04-02] MEDS: Pantoprazole Sodium 20 MG Tablet PO (09:29)
[2024-04-02] MEDS: Ceftriaxone 1 GM/50 ML BAG IV (09:32)
[2024-04-02] MEDS: Enoxaparin 40 MG/0.4 ML Syringe SC (09:32)
--- NOTE | 2024-04-02 10:15 | DCINST_ITS ---
Discharge Instructions Diet Discharge Diet: No restrictions Activity Discharge Activity: Return to Normal Activity Weight Bearing Status: Full weight bearing Follow Up Care Test Results: Test results from this visit will be discussed in further detail at your follow- up appointment, if applicable. Discharge Plan Admission Admit Date/Time: 04/01/24 16:42 Primary Reason for Your Visit: acute cystitis Attending Provider: Hood Bennett Primary Care Provider: Rangel Santos Consulting Providers: Antolin Rico Discharge Orders/Prescriptions Prescriptions: New amoxicillin-pot clavulanate 875-125 mg tablet 1 tab PO BID Qty: 14 0RF Rx Instructions: take with food-start with supper today Continued famotidine 20 mg tablet 20 mg PO QHS Qty: 60 3RF prednisolone 15 mg/5 mL solution 15 mg PO BID Qty: 240 3RF esomeprazole magnesium 20 mg capsule,delayed release(DR/EC) 20 mg PO DAILY Qty: 30 5RF beclomethasone dipropionate 80 mcg/actuation HFA aerosol breath activated 1 inh inhalation Q12H Qty: 10.6 3RF methenamine hippurate 1 gram tablet 1 g PO QHS ascorbic acid (vitamin C) 1,000 mg Capsule, Extended Release 1 cap PO QHS sumatriptan succinate 100 mg tablet 100 mg PO Q2H PRN (Reason: migraine headache) simvastatin 10 mg tablet 10 mg PO DAILY ondansetron 4 mg tablet,disintegrating 4 mg PO TID PRN (Reason: nausea and vomiting) Qty: 21 0RF Referrals / Follow Up: Rangel Santos MD [Primary Care Provider] - Disposition Disposition (needs filled in before D/C Order can be placed): Home, Self Care
--- NOTE | 2024-04-02 10:22 | PCM.DC.SUM ---
Providers Date of Admission: 04/01/24 Date of Discharge: 04/02/24 Primary Care Physician: Dr. Rangel Santos MD Reason For Visit: UTI Diagnosis Discharge Diagnosis (1) UTI (urinary tract infection): Status: Acute Code(s): N39.0 - Urinary tract infection, site not specified Qualifiers: Hematuria presence: without hematuria Urinary tract infection type: acute cystitis Qualified Code(s): N30.00 - Acute cystitis without hematuria (2) Viral illness: Status: Acute Code(s): B34.9 - Viral infection, unspecified (3) Cardiac arrhythmia: Status: Acute Code(s): I49.9 - Cardiac arrhythmia, unspecified Qualifiers: Arrhythmia type: unspecified cardiac arrhythmia Qualified Code(s): I49.9 - Cardiac arrhythmia, unspecified (4) Cough: Status: Acute Code(s): R05.9 - Cough, unspecified Qualifiers: Cough type: acute Qualified Code(s): R05.1 - Acute cough (5) Essential (primary) hypertension: Status: Chronic Code(s): I10 - Essential (primary) hypertension Plan 1. Acute cystitis #2 sinus arrhythmias #3 essential hypertension #4 hyperlipidemia Medications at Discharge Home Medications ascorbic acid (vitamin C) 1,000 mg capsule,extended release 1 cap PO QHS vitamin 04/07/22 methenamine hippurate 1 gram tablet 1 g PO QHS urinary tract health 04/07/22 simvastatin 10 mg tablet 10 mg PO DAILY cholesterol 11/08/23 sumatriptan succinate 100 mg tablet 100 mg PO Q2H PRN migraine headache 11/08/23 beclomethasone dipropionate 80 mcg/actuation HFA breath activated aerosol 1 inh inhalation Q12H breathing #10.6 grams 01/31/24 esomeprazole magnesium 20 mg capsule,delayed release 20 mg PO DAILY reflux #30 caps 01/31/24 famotidine 20 mg tablet 20 mg PO QHS reflux #60 tabs 01/31/24 prednisolone 15 mg/5 mL oral solution 15 mg (5 mL) PO BID inflammation #240 mL 01/31/24 ondansetron 4 mg disintegrating tablet 4 mg PO TID PRN nausea and vomiting #21 tabs 03/24/24 amoxicillin 875 mg-potassium clavulanate 125 mg tablet 1 tab PO BID #14 tabs 04/02/24 Hospital Course Operations None Procedures None Summary of Care Provided Minutes Spent on Discharge: 31 Hospital Course: This 78-year-old white female was seen in the emergency room at [facility] with chief complaints of fever x 24 hours. Patient had gone to an urgent care the day before and was tested for COVID and influenza as well as RSV-these tests were negative. The next day, she reported a fever of 104 and was instructed to go to the ER at [facility] for evaluation. Workup in the emergency room showed the patient have an elevated white blood cell count, chest x-ray was performed which showed no evidence of pneumonia, urinalysis was indicative of a urinary tract infection. Patient's son did not feel the patient was medically stable for discharge home from the emergency room due to past history of sepsis, he requested the patient be placed in observation status and treated overnight in the hospital. On 04/02/2024, patient was seen and examined: On examination she appeared in good health and spirits, she does not appear to be in any distress. Vital signs as documented. Skin warm and dry and without overt rashes. Neck without JVD, thyroid appears normal, trachea is midline, neck is supple. Lungs clear, normal air movement was noted. Heart exam notable for irregular rhythm, normal sounds and absence of murmurs, rubs or gallops. Abdomen unremarkable and without evidence of organomegaly, masses, or abdominal aortic enlargement, bowel sounds are present in all 4 quadrants, no abdominal tenderness was noted. Extremities nonedematous, no cyanosis was noted, no clubbing was noted. Neuro: Cranial nerves II through XII are grossly intact, no focal motor deficits were noted, sensation to light touch and pinprick is intact, motor exam 5/5 throughout. Psych: Patient is alert and oriented x3, she does not appear anxious or depressed, she does not appear agitated. This examiner thought it was possible the patient may have an Enterococcus acute cystitis, she has had a history of this before and her antibiotic coverage was changed, patient was evaluated on 04/02/2024 and felt to be stable for discharge home, she was given a prescription for Augmentin. Patient was to follow-up with her urologist as an outpatient in a short period of time for her regular visit. Weight / BMI Weight Weight: 62.3 kg Body Mass Index (BMI) 23.6 ABG / Lab / Microbiology Data 04/02/24 06:55 04/02/24 06:55 Laboratory: Laboratory Results - last 24 hr 04/01/24 13:40: WBC 13.0 H, RBC 4.69, Hgb 14.4, Hct 45.8, MCV 97.7, MCH 30.7, MCHC 31.4 L, RDW Std Deviation 46.6 H, RDW Coeff of Cecilia 13.1, Plt Count 240, MPV 9.5, Immature Gran % (Auto) 1.200 H, Neut % (Auto) 79.5 H, Lymph % (Auto) 11.5 L, Canadian % (Auto) 6.1, Eos % (Auto) 1.2, Baso % (Auto) 0.5, Absolute Neuts (auto) 10.3 H, Absolute Lymphs (auto) 1.50, Nucleated RBC % 0, Sodium 137, Potassium 3.9, Chloride 106, Carbon Dioxide 23.0, Anion Gap 8, BUN 18, Creatinine 0.90, Estim Creat Clear Calc 43.05, Est GFR (MDRD) Af Amer 77, Est GFR (MDRD) Non-Af 64, BUN/Creatinine Ratio 20.0, Glucose 110 H, Lactic Acid 1.8, Calcium 9.0, Total Bilirubin 0.70, AST 13 L, ALT 15, Alkaline Phosphatase 66, Troponin I High Sens Cancelled, Total Protein 6.7, Albumin 2.8 L, Globulin 3.9, Albumin/Globulin Ratio 0.7 L, TSH Cancelled 04/01/24 15:00: Urine Color Yellow, Urine Clarity Sl. Cloudy, Urine pH 7.0, Ur Specific Ranger 1.010, Urine Protein 30 H, Urine Glucose (UA) Normal, Urine Ketones 5 H, Urine Occult Blood 150 H, Urine Nitrite Negative, Urine Bilirubin Negative, Urine Urobilinogen Normal, Ur Leukocyte Esterase 500 H, Urine RBC 0-5 SEEN, Urine WBC 10-25 SEEN, Ur Squamous Epith Cells 0 SEEN, Urine Bacteria 2+, Urine Mucus 0 SEEN 04/01/24 15:05: Troponin I High Sens 7, TSH 0.31 L 04/01/24 16:45: Lactic Acid 1.1 04/02/24 06:55: WBC 12.7 H, RBC 4.18 L, Hgb 12.8, Hct 40.4, MCV 96.7, MCH 30.6, MCHC 31.7 L, RDW Std Deviation 46.5 H, RDW Coeff of Cecilia 13.1, Plt Count 234, MPV 9.8, Immature Gran % (Auto) 1.300 H, Neut % (Auto) 76.8 H, Lymph % (Auto) 13.0 L, Canadian % (Auto) 6.6, Eos % (Auto) 1.9, Baso % (Auto) 0.4, Absolute Neuts (auto) 9.7 H, Absolute Lymphs (auto) 1.65, Nucleated RBC % 0, Sodium 139, Potassium 3.4 L, Chloride 111 H, Carbon Dioxide 22.0, Anion Gap 6, BUN 13, Creatinine 0.70, Estim Creat Clear Calc 48.43, Est GFR (MDRD) Af Amer 104, Est GFR (MDRD) Non-Af 86, BUN/Creatinine Ratio 18.7, Glucose 104, Calcium 8.2 L Radiography Diagnostic Testing: Radiology Impression Chest X-Ray 04/01/24 13:24 IMPRESSION: Normal x-ray examination of the chest. Electronically Signed: Negro Morales MD at 19:33 EDT , D/C Instructions Discharge Diet: No restrictions Weight Bearing Status: Full weight bearing Meaningful Use Info Meaningful Use Meaningful Use Diagnoses (Choose all that apply): None applicable Ischemic Stroke Statin Dosing Therapy Reference: STATIN DOSE THERAPY REFERENCE: * Patients > 75 years receive moderate or high dose statin therapy. * Patients 75 years or YOUNGER should receive HIGH intensity statin dose unless contraindicated. You will be required to document reason for non-treatment if statin daily dose does not meet guidelines. HIGH DOSE STATIN THERAPY DAILY Atorvastatin > than or = to 40 mg Rosuvastatin > than or = to 20 mg Amlodipine + Atorvastatin > than or = to 2.5/40 mg Ezetimibe + Simvastatin 10/80 mg Simvastatin 80mg Discharge Plan Admission Admit Date/Time: 04/01/24 16:42 Primary Reason for Your Visit: acute cystitis Attending Provider: Hood Bennett Primary Care Provider: Rangel Santos Consulting Providers: Antolin Rico Discharge Orders/Prescriptions Prescriptions: New amoxicillin-pot clavulanate 875-125 mg tablet 1 tab PO BID Qty: 14 0RF Rx Instructions: take with food-start with supper today Continued famotidine 20 mg tablet 20 mg PO QHS Qty: 60 3RF prednisolone 15 mg/5 mL solution 15 mg PO BID Qty: 240 3RF esomeprazole magnesium 20 mg capsule,delayed release(DR/EC) 20 mg PO DAILY Qty: 30 5RF beclomethasone dipropionate 80 mcg/actuation HFA aerosol breath activated 1 inh inhalation Q12H Qty: 10.6 3RF methenamine hippurate 1 gram tablet 1 g PO QHS ascorbic acid (vitamin C) 1,000 mg Capsule, Extended Release 1 cap PO QHS sumatriptan succinate 100 mg tablet 100 mg PO Q2H PRN (Reason: migraine headache) simvastatin 10 mg tablet 10 mg PO DAILY ondansetron 4 mg tablet,disintegrating 4 mg PO TID PRN (Reason: nausea and vomiting) Qty: 21 0RF Referrals / Follow Up: Rangel Santos MD [Primary Care Provider] - Disposition Disposition (needs filled in before D/C Order can be placed): Home, Self Care Charges/Coding Visit Charges Inpatient E&M: 36250 Disch Hosp >30min
--- NOTE | 2024-04-02 11:06 | PHA.DC_ITS ---
Pharmacy [facility] has performed discharge medication reconciliation and counseling for this patient. 1. AUGMENTIN 875MG PO BID X 7 DAYS The patient's discharge medication list was reviewed for discrepancies and discrepancies were resolved. The patient was counseled on the following discharge medications and changes in medications for homegoing were reviewed. The Reason for Use, instructions for use, and potential side effects were reviewed for all new medications. The patient's questions regarding all of their medications were answered. The patient was able to verbally demonstrate an understanding of their discharge medications. Medications at Discharge Home Medications ascorbic acid (vitamin C) 1,000 mg capsule,extended release 1 cap PO QHS vitamin 04/07/22 methenamine hippurate 1 gram tablet 1 g PO QHS urinary tract health 04/07/22 simvastatin 10 mg tablet 10 mg PO DAILY cholesterol 11/08/23 sumatriptan succinate 100 mg tablet 100 mg PO Q2H PRN migraine headache 11/08/23 beclomethasone dipropionate 80 mcg/actuation HFA breath activated aerosol 1 inh inhalation Q12H breathing #10.6 grams 01/31/24 esomeprazole magnesium 20 mg capsule,delayed release 20 mg PO DAILY reflux #30 caps 01/31/24 famotidine 20 mg tablet 20 mg PO QHS reflux #60 tabs 01/31/24 prednisolone 15 mg/5 mL oral solution 15 mg (5 mL) PO BID inflammation #240 mL 01/31/24 ondansetron 4 mg disintegrating tablet 4 mg PO TID PRN nausea and vomiting #21 tabs 03/24/24 amoxicillin 875 mg-potassium clavulanate 125 mg tablet 1 tab PO BID #14 tabs 04/02/24
--- NOTE | 2024-04-02 11:07 | CASEMGMT ---
Patient has order for discharge. RN CM in to discuss needs at discharge. Patient is up, independent in room. Patient denies needs or help at discharge. Patient had no further questions or concerns.
[2024-04-02] MEDS: Ampicillin/Sulbactam 3 GM in 0.9% Normal Saline (100mL MB+) 100 ML IV (11:10)
--- NOTE | 2024-04-02 12:29 | NURSING ---
Attempted to return call for son to update him about patient status. No answer.
== END 2024-04-02 10:18 | disposition home or self-care (01) ==
LOC: ED 13:28 → PCU 16:59
PROVIDERS: Emergency Medicine; Admitting Provider Hospitalist; Emergency Provider Emergency Medicine; PCP Family Medicine; Visit Provider Internal Medicine
DX: N30.00 Acute cystitis without hematuria (principal); B34.9 Viral infection, unspecified; I10 Essential (primary) hypertension; R00.0 Tachycardia, unspecified; R05.1 Acute cough; E78.5 Hyperlipidemia, unspecified; Z79.899 Other long term (current) drug therapy
CPT/HCPCS: 96361; 96367; 96372; 36415; 71045; 80048; 80053; 81001; 83605; 84443; 84484; 85025; 87040; 87077; 87086; 87088; 87186; 93005; 94640; 96365; 99221; 99284; J7030; A4216; G0378; J0295

== ENCOUNTER 2024-04-05 12:55 | Inpatient (IN) | payer MEDICARE, OTHER, SELFPAY ==
[2024-04-05] VITALS (11 sets, daily range): BP systolic 125–161; BP diastolic 71–98; PULSE 53–127; RESP 14–29; TEMP 36.6–38.7; O2SAT 88–97; BMI 24.3; BMI 24.5
--- NOTE | 2024-04-05 13:27 | EKG12_ITS ---
Test Reason : GI PROBLEM Blood Pressure : / mmHG Vent. Rate : 133 BPM Atrial Rate : 133 BPM P-R Int : 146 ms QRS Dur : 068 ms QT Int : 278 ms P-R-T Axes : 031 -14 029 degrees QTc Int : 413 ms Sinus tachycardia Septal infarct , age undetermined Abnormal ECG Confirmed by DRAGAN LOREDO, DIANA ([id number]), communications editor CHRISTIAN MADERA ([id number]) on 04/08/2024 6:50:33 AM Referred By: Confirmed By:DIANA ARCHIBALD MD
--- NOTE | 2024-04-05 13:28 | EDS_ITS ---
HPI History of Present Illness Chief Complaint: Complaint Informant: patient Narrative Narrative: Patient complains of continued fevers and not feeling well. Patient was seen here on the and diagnosed with a UTI. She was discharged home on the on Augmentin due to a history of ESBL E. coli urinary infections. Urine culture has returned and reveals Enterococcus faecalis. This is sensitive to the Augmentin. Patient states she continues to have fevers with a temperature of 99.6 about 11:00 this morning. She did take Tylenol after this but does not feel well. She denies vomiting but has had some diarrhea. She states her primary care office called her and advised her that her EKG was not normal when she was here at the hospital and want to see her in the office for close follow- up. This also has her anxious. [facility] Medical History Post-menopausal Alcohol use History of steroid therapy Easy bruising PONV (postoperative nausea and vomiting) Non-smoker Cardiology follow-up encounter History of echocardiogram History of stress test Hypertension Hx of migraines UTI (urinary tract infection) DDD (degenerative disc disease), lumbar Spinal stenosis Chronic back pain Cystitis GERD (gastroesophageal reflux disease) Infection due to ESBL-producing Escherichia coli Essential (primary) hypertension Hyperlipidemia Home Medications ?Medication ?Instructions ?Recorded ?Last Taken ?Type ascorbic acid (vitamin C) 1,000 mg 1 cap PO QHS vitamin 04/07/22 Unknown History capsule,extended release methenamine hippurate 1 gram tablet 1 g PO QHS urinary tract health 04/07/22 Unknown History simvastatin 10 mg tablet 10 mg PO DAILY cholesterol 11/08/23 04/04/24 History sumatriptan succinate 100 mg tablet 100 mg PO Q2H PRN migraine headache 11/08/23 Unknown History beclomethasone dipropionate 80 1 inh inhalation Q12H breathing 01/31/24 Unknown Rx mcg/actuation HFA breath activated #10.6 grams aerosol esomeprazole magnesium 20 mg 20 mg PO DAILY reflux #30 caps 01/31/24 04/05/24 Rx capsule,delayed release famotidine 20 mg tablet 20 mg PO QHS reflux #60 tabs 01/31/24 04/04/24 Rx ondansetron 4 mg disintegrating 4 mg PO TID PRN nausea and 03/24/24 Unknown Rx tablet vomiting #21 tabs amoxicillin 875 mg-potassium 1 tab PO BID #14 tabs 04/02/24 04/05/24 Rx clavulanate 125 mg tablet Allergy/AdvReac Type Severity Reaction Status Date / Time No Known Allergies Allergy Verified 04/05/24 12:56 Family History Mother Heart disease Father Heart disease Brother Heart disease CAD (coronary artery disease) Surgical History History of back surgery S/P subdural hematoma evacuation History of appendectomy History of laparoscopic cholecystectomy History of hysterectomy Social History household members: spouse housing: house Smoking Status: Never smoker ROS ROS ED Constitutional Constitutional ED: Reports fever(s); Denies chills Eyes Eyes: Denies discharge from eye(s) ENT ENT ED: Denies discharge from eye(s), rhinorrhea or sore throat Cardiovascular Cardiovascular: Reports other Details: Right lower rib pain with cough ; Denies chest pain or palpitations Respiratory/Chest Respiratory/Chest: Reports cough; Denies dyspnea Gastrointestinal Gastrointestinal: Reports diarrhea; Denies abdominal pain, nausea or vomiting Genitourinary Genitourinary ED: Denies dysuria Musculoskeletal Musculoskeletal: Reports myalgias; Denies back pain or extremity pain Integumentary Denies Abrasions or rash Neurologic Neurologic: Denies headache(s) or weakness Allergic/Immunologic Allergic/Immunologic ED: Denies lip swelling or urticaria EXAM Physical Exam Const Vital Signs: 04/05/24 12:56 04/05/24 12:56 04/05/24 12:58 Temperature 99.8 F H 99.8 F H Temperature Source Temporal Temporal Pulse Rate 53 L 109 H 65 Respiratory Rate 14 18 14 Blood Pressure 156/82 H 161/71 H 157/81 H Blood Pressure Mean 106 101 106 Pulse Ox 92 92 96 Oxygen Delivery Method Room Air Room Air Room Air Oxygen Flow Rate (L/min) 04/05/24 13:51 04/05/24 14:36 04/05/24 15:00 Temperature 98.1 F 98.6 F Temperature Source Oral Oral Pulse Rate 127 H Respiratory Rate 19 H Blood Pressure 145/98 H Blood Pressure Mean 113 Pulse Ox 92 88 Oxygen Delivery Method Room Air Room Air Oxygen Flow Rate (L/min) 04/05/24 15:05 04/05/24 15:25 Temperature 98 F Temperature Source Pulse Rate 115 H 125 H Respiratory Rate 18 16 Blood Pressure 147/97 H Blood Pressure Mean 113 Pulse Ox 88 97 Oxygen Delivery Method Nasal Cannula Oxygen Flow Rate (L/min) 2 Positive well nourished and well developed General Appearance ED: well developed HEENT Reports moist mucous membranes Eyes EOMs intact bilaterally Neck no lymphadenopathy Chest Wall inspection of chest normal and palpation of chest normal Resp normal respiratory effort and clear to auscultation bilaterally Cardio Rate: tachycardic GI non-tender Palpation: soft Extremity normal to inspection Neuro oriented x3 and no sensory deficits noted Motor Exam: strength 5/5 throughout Psych mental status grossly normal Skin no rashes or lesions noted MDM MDM MDM Narrative Medical decision making narrative: Patient sounds tachycardic on auscultation. I will obtain an EKG. IV line will be established. Labwork obtained to evaluate for leukocytosis, anemia, and electrolyte derangement. Urinalysis obtained to evaluate for infection/hematuria. Patient be given IV fluids. History & Record Review Discussion w/independent historian: Patient and Family Additional record(s) reviewed:: Prior inpatient record, Prior ED visit and Prior labs Lab Data Attestation: I reviewed the patient's lab results. Labs: Laboratory Results - last 24 hr 04/05/24 04/05/24 13:45 14:09 WBC 13.4 H RBC 4.29 Hgb 13.1 Hct 39.8 MCV 92.8 MCH 30.5 MCHC 32.9 RDW Std Deviation 44.3 H RDW Coeff of Cecilia 13.1 Plt Count 377 MPV 9.6 Immature Gran % (Auto) 1.300 H Neut % (Auto) 82.5 H Lymph % (Auto) 7.4 L Clayton % (Auto) 7.0 Eos % (Auto) 1.4 Baso % (Auto) 0.4 Absolute Neuts (auto) 11.1 H Absolute Lymphs (auto) 0.99 Nucleated RBC % 0 D-Dimer Quant (PE/DVT) 3.21 H* Sodium 139 Potassium 3.0 L Chloride 109 H Carbon Dioxide 21.0 Anion Gap 9 BUN 14 Creatinine 0.67 Estim Creat Clear Calc 46.40 Est GFR (MDRD) Af Amer 109 Est GFR (MDRD) Non-Af 90 BUN/Creatinine Ratio 21.0 H Glucose 121 H Lactic Acid 0.9 Calcium 8.6 Troponin I High Sens 35 Radiography Chest X-Ray - ED: 2 View, Read by ED Physician, No Infiltrates, Right Effusion and Left Effusion Diagnostic Testing: Clinical Impression(s) from Imaging Studies Chest X-Ray 04/05/24 14:15 IMPRESSION: Blunting of both costophrenic angles with increased markings at the lung bases slightly worse on the left side. This may represent either atelectasis and/or infiltrates. This is new as compared to prior study. Electronically Signed: Azam Mir MD at 14:42 EDT , Chest CTA 04/05/24 14:48 IMPRESSION: Bilateral pulmonary embolism as described. Small bilateral pleural effusions right greater than left with bibasilar atelectasis and/or infiltrates. Electronically Signed: Azam Mir MD at 15:09 EDT , EKG Initial EKG: Attestation: I personally reviewed and interpreted this EKG as follows: Interpretation: Sinus Tachycardia (Sinus tachycardia at 133. No significant ST change.) Treatment and Re-Evaluation :: CBC was a white count of 13.4. This is increased when compared to her recent hospitalization. 82% neutrophils are noted. Chemistry studies reveal a potassium of 3.0. This is replaced orally. Renal function is normal. Glucose is 121. Lactic acid is normal at 0.9. D-dimer is elevated at 3.21. Two-view chest x-ray per my interpretation reveals small bilateral pleural effusions. No infiltrate. Radiology interpretation reviewed and agrees. Patient remains tachycardic with heart rate in the 120s and oxygen saturation around 90% on room air. She is not significantly tachypneic. Given her elevated D-dimer and above constitution of findings, she is sent for CTA of the chest. CTA reveals bilateral pulmonary emboli with small bilateral pleural effusions right greater than left. Patient started on a heparin drip. When I went in the room to discuss her test results with her her oxygen saturation was 88% on room air. I placed her on 2 L nasal cannula. I did add a troponin to evaluate for potential heart strain. Troponin returns normal at 35. Test results discussed with patient and family at bedside. I will speak with hospitalist regarding admission. Discharge Plan Triage Chief Complaint: Complaint ED Provider: Eden Bravo Dx/Rx/DC Orders Clinical Impression: Bilateral pulmonary embolism, UTI (urinary tract infection), Hypoxia Prescriptions: No Action famotidine 20 mg tablet 20 mg PO QHS Qty: 60 3RF esomeprazole magnesium 20 mg capsule,delayed release(DR/EC) 20 mg PO DAILY Qty: 30 5RF beclomethasone dipropionate 80 mcg/actuation HFA aerosol breath activated 1 inh inhalation Q12H Qty: 10.6 3RF methenamine hippurate 1 gram tablet 1 g PO QHS ascorbic acid (vitamin C) 1,000 mg Capsule, Extended Release 1 cap PO QHS sumatriptan succinate 100 mg tablet 100 mg PO Q2H PRN (Reason: migraine headache) simvastatin 10 mg tablet 10 mg PO DAILY amoxicillin-pot clavulanate 875-125 mg tablet 1 tab PO BID Qty: 14 0RF Rx Instructions: take with food-start with supper today ondansetron 4 mg tablet,disintegrating 4 mg PO TID PRN (Reason: nausea and vomiting) Qty: 21 0RF Primary Care Provider: Rangel Santos Referrals: Rangel Santos MD [Primary Care Provider] - Print Language: Kinyarwanda Disposition Disposition: Acute Care Hospital [facility]
[2024-04-05 13:59] LABS: Absolute Lymphocyte Count 0.99 X10^3/uL (0.83-4.51); Absolute Neutrophil Count 11.1 X10^3/uL (2.0-7.7); Basophil# 0.05 X10^3/uL; Basophil% 0.4 % (0-1); Eosinophil# 0.19 X10^3/uL; Eosinophils% 1.4 % (0-5); Hematocrit 39.8 % (37-47); Hemoglobin 13.1 g/dL (12.0-15.0); Lymphocyte # 0.99 X10^3/ul (0.83-4.51); Lymphocyte % 7.4 % (19-41); Mean Corp Hgb Conc 32.9 g/dL (32-36); Mean Corpuscular Hgb 30.5 pg (27.0-32.0); Mean Corpuscular Volume 92.8 fL (81-99); Mean Platelet Vol. 9.6 fl (6.2-12.0); Monocyte# 0.94 X10^3/uL; NRBC Flagged by Analyzer 0 % (0-5); Neutrophil # 11.09 X10^3/uL (2.7-7.7); Neutrophil % 82.5 % (47-70); Platelet Count 377 K/mm3 (150-450); RBC Distribution Width CV 13.1 % (11.6-14.6); RBC Distribution Width SD 44.3 fl (35.1-43.9); Red Blood Count 4.29 M/mm3 (4.2-5.4); White Blood Count 13.4 K/mm3 (4.4-11.0)
[2024-04-05 14:05] LABS: Anion Gap 9 (5-15); BUN 14 mg/dL (7-18); Calcium,Total 8.6 mg/dL (8.5-10.1); Chloride 109 mmol/L (98-107); Creatinine, Serum 0.67 mg/dL (0.55-1.02); EST Glomerular Filtration Rate 90 mL/min (>60); Est Glom Filt Rate - Afr Amer 109 mL/min (>60); Glucose 121 mg/dL (74-106); Sodium Level 139 mmol/L (136-145)
--- NOTE | 2024-04-05 14:15 | RAD_ITS ---
STUDY: X-RAY CHEST REASON FOR EXAM: Female, 78 years old. 2 month history of cough. History of rib pain. TECHNIQUE: PA and lateral views of the chest. COMPARISON: Comparison is made with prior study dated April 01, 2024. FINDINGS: Blunting of both costo phrenic angles. Mild increased markings at the lung bases slightly more prominent at the left lung base suggestive of a atelectasis and/or early infiltrate. Normal size heart. Normal mediastinum and opal. Normal visualized pulmonary arteries. Normal visualized aortic arch and descending thoracic aorta. There is demineralization of the osseous structures. Prior fusion of the lumbar spine. Normal visualized ribs, clavicles, and shoulders. There is no demonstrated abnormality of the visualized soft tissue structures of the upper abdomen. RAD/Chest PA and Lateral IMPRESSION: Blunting of both costophrenic angles with increased markings at the lung bases slightly worse on the left side. This may represent either atelectasis and/or infiltrates. This is new as compared to prior study. Electronically Signed: Azam Mir MD at 14:42 EDT ,
[2024-04-05 14:33] LABS: D-Dimer Quantitative (DVT/PE) 3.21 FEU/ug/m (0.27-0.49)
[2024-04-05] MEDS: Potassium Chloride Oral Tablet 20 MEQ 40 MEQ PO (14:34)
[2024-04-05] MEDS: 0.9% Normal Saline (1000mL) 1,000 ML 150 ML IV (14:34)
--- NOTE | 2024-04-05 14:48 | CT_ITS ---
STUDY: CTA CHEST REASON FOR EXAM: Female, 78 years old. PE RADIATION DOSAGE (If Supplied By Facility): CTDIvol = ( 5.92 ) mGy, DLP = ( 194.20 ) mGycm TECHNIQUE: The examination was performed with the intravenous administration of IV 100mL [id number]-300. Post-processing of the angiographic images was performed, with multiplanar reformation and 3D reconstruction. Individualized dose optimization techniques were used for this CT. COMPARISON: Comparison is made with prior chest radiograph done earlier today. FINDINGS: Multiple bilateral intraluminal filling defects involving both right and left pulmonary arterial branches in the upper and lower lobes. The thrombi extend into the distal portion of the right pulmonary artery as well as the left pulmonary artery. Normal thoracic aorta and visualized great vessels. There is no demonstrated aortic dissection. Normal heart and pericardium. There are visualized mediastinal lymph nodes, which are within normal size limits, and with normal morphology. Normal hilar regions. Normal visualized trachea and bronchi. The lungs are well expanded. Small bilateral pleural effusions right greater than left with bibasilar infiltration and/or atelectasis. Normal chest wall structures. There are degenerative changes of thoracic spine. Normal visualized upper abdomen. CT/CTA Chest W/WO Contrast IMPRESSION: Bilateral pulmonary embolism as described. Small bilateral pleural effusions right greater than left with bibasilar atelectasis and/or infiltrates. Electronically Signed: Azam Mir MD at 15:09 EDT ,
[2024-04-05 14:53] LABS: Lactic Acid 0.9 mmol/L (0.4-1.9)
[2024-04-05] MEDS: HEPARIN/D5w 25,000 UNITS 25,000 UNITS/250 ML IV.SOLN. 8 UNITS CONT INF (15:25)
[2024-04-05] MEDS: Heparin Injection (Vial) 5,000 UNIT/ML VIAL 4000 UNIT IV (15:25)
[2024-04-05 15:40] LABS: Bacteria 0 SEEN /hpf (None Seen); Mucous, Urine 0 SEEN /hpf (<or=2+); Red Blood Cells-Urine 0 SEEN /hpf (0-5); White Blood Cells 0 SEEN /hpf (0-5)
[2024-04-05 15:51] LABS: Troponin-I HS 35 pg/mL (3.0-54.0)
[2024-04-05 16:00] LABS: Color, Urine Yellow (Yellow); Glucose, Dipstick Normal (Normal); Ketone-Dipstick 15 mg/dl (Negative); Leukocyte Esterase-Dipstick 25 /ul (Negative); Nitrite-Dipstick Negative (Negative); Occult Blood-Urine 10 /ul (Negative); Protein-Dipstick Negative (Negative); Urine Bilirubin Dipstick Negative (Negative); Urine Clarity Clear (Clear); Urine Urobilinogen Normal (Normal); Urine pH 6.5 (5.0 - 8.0)
[2024-04-05 16:33] LABS: International Normalized Ratio 1.3; Prothrombin Time (Protime)PT. 15.7 SECONDS (11.7-14.9)
[2024-04-05 16:34] LABS: Partial Thromboplast Time 35.9 Seconds (24.1-36.2)
--- NOTE | 2024-04-05 16:40 | PCM.HP.STD ---
HPI - General General Date of Admission: 04/05/24 Date of Service: 04/05/24 Chief Complaint: Fevers HPI Narrative GREGG TEIXEIRA, is a 78 F with a significant history of HTN; HLD; and Raúl esophagitis who presents with a fever. His symptoms has been going on for about a week. Reportedly his temperature at home was 100.8 Fahrenheit. Associated with his symptoms as a cough for about 2 months. Initially the cough was dry but recently the cough has been productive. Patient does not know the color of her sputum. Patient reports pain under her right breast laterally with her cough. She denies any shortness of breath. She has had nausea and diarrhea that started after taking antibiotics for UTI. Of note patient was at the Hospital emergency department on and was diagnosed with UTI. She was admitted and discharged home on Augmentin. At time of presentation she stated that her home temperature has been 104 Fahrenheit. On this visit ED provider reported that the patient's was hypoxemic with O2 sat in the high 80s on room air. She denies long distance travel. She denies recent surgery. 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 [facility] Medical History Post-menopausal Alcohol use History of steroid therapy Easy bruising PONV (postoperative nausea and vomiting) Non-smoker Cardiology follow-up encounter History of echocardiogram History of stress test Hypertension Hx of migraines UTI (urinary tract infection) DDD (degenerative disc disease), lumbar Spinal stenosis Chronic back pain Cystitis GERD (gastroesophageal reflux disease) Infection due to ESBL-producing Escherichia coli Essential (primary) hypertension Hyperlipidemia Home Medications ?Medication ?Instructions ?Recorded ?Last Taken ?Type ascorbic acid (vitamin C) 1,000 mg 1 cap PO QHS vitamin 04/07/22 Unknown History capsule,extended release methenamine hippurate 1 gram tablet 1 g PO QHS urinary tract health 04/07/22 Unknown History simvastatin 10 mg tablet 10 mg PO DAILY cholesterol 11/08/23 04/04/24 History sumatriptan succinate 100 mg tablet 100 mg PO Q2H PRN migraine headache 11/08/23 Unknown History beclomethasone dipropionate 80 1 inh inhalation Q12H breathing 01/31/24 Unknown Rx mcg/actuation HFA breath activated #10.6 grams aerosol esomeprazole magnesium 20 mg 20 mg PO DAILY reflux #30 caps 01/31/24 04/05/24 Rx capsule,delayed release famotidine 20 mg tablet 20 mg PO QHS reflux #60 tabs 01/31/24 04/04/24 Rx ondansetron 4 mg disintegrating 4 mg PO TID PRN nausea and 03/24/24 Unknown Rx tablet vomiting #21 tabs amoxicillin 875 mg-potassium 1 tab PO BID #14 tabs 04/02/24 04/05/24 Rx clavulanate 125 mg tablet Allergy/AdvReac Type Severity Reaction Status Date / Time No Known Allergies Allergy Verified 04/05/24 12:56 Family History Mother Heart disease Father Heart disease Brother Heart disease CAD (coronary artery disease) Surgical History History of back surgery S/P subdural hematoma evacuation History of appendectomy History of laparoscopic cholecystectomy History of hysterectomy Social History household members: spouse housing: house Smoking Status: Never smoker ROS ROS Narrative Pertinent positives and pertinent negatives as noted in HPI. All other systems were reviewed and are negative Vital Signs Vital Signs Vital Signs: 04/05/24 12:56 04/05/24 12:56 04/05/24 12:58 Temperature 99.8 F H 99.8 F H Temperature Source Temporal Temporal Pulse Rate 53 L 109 H 65 Respiratory Rate 14 18 14 Blood Pressure 156/82 H 161/71 H 157/81 H Blood Pressure Mean 106 101 106 Pulse Ox 92 92 96 Oxygen Delivery Method Room Air Room Air Room Air Oxygen Flow Rate (L/min) 04/05/24 13:51 04/05/24 14:36 04/05/24 15:00 Temperature 98.1 F 98.6 F Temperature Source Oral Oral Pulse Rate 127 H Respiratory Rate 19 H Blood Pressure 145/98 H Blood Pressure Mean 113 Pulse Ox 92 88 Oxygen Delivery Method Room Air Room Air Oxygen Flow Rate (L/min) 04/05/24 15:05 04/05/24 15:25 Temperature 98 F Temperature Source Pulse Rate 115 H 125 H Respiratory Rate 18 16 Blood Pressure 147/97 H Blood Pressure Mean 113 Pulse Ox 88 97 Oxygen Delivery Method Nasal Cannula Oxygen Flow Rate (L/min) 2 Weight Weight: 62.4 kg Body Mass Index (BMI) 24.3 Physical Exam Narrative Physical exam: General: Well-nourished, well-developed. Head: Normocephalic, atraumatic, no tenderness Eyes: Vision is grossly intact. EOMI ENT, no trauma, moist mucous membranes, no rhinorrhea Neck: Nontender, No thyromegaly. CVS: Regular rate and rhythm. S1-S2 present. No murmur, gallop or rub. Respiratory : Diminished, chest wall nontender Abdomen: Soft, nontender, nondistended, normal bowel sounds, no masses : Deferred Back: Nontender, no CVA tenderness, no midline spinal tenderness, deformities, step-offs Extremities: Nontender full range of motion, no trauma Skin: Normal color, no trauma, abrasions Neuro: Alert, oriented, cranial nerves II through XII grossly intact. Psychiatry: Normal mood. Normal affect. Not depressed. Not anxious. Results Lab / Micro Data 04/05/24 13:45 04/05/24 13:45 Labs: Laboratory Results - last 24 hr 04/05/24 13:45: WBC 13.4 H, RBC 4.29, Hgb 13.1, Hct 39.8, MCV 92.8, MCH 30.5, MCHC 32.9, RDW Std Deviation 44.3 H, RDW Coeff of Cecilia 13.1, Plt Count 377, MPV 9.6, Immature Gran % (Auto) 1.300 H, Neut % (Auto) 82.5 H, Lymph % (Auto) 7.4 L, [place] % (Auto) 7.0, Eos % (Auto) 1.4, Baso % (Auto) 0.4, Absolute Neuts (auto) 11.1 H, Absolute Lymphs (auto) 0.99, Nucleated RBC % 0, Sodium 139, Potassium 3.0 L, Chloride 109 H, Carbon Dioxide 21.0, Anion Gap 9, BUN 14, Creatinine 0.67, Estim Creat Clear Calc 46.40, Est GFR (MDRD) Af Amer 109, Est GFR (MDRD) Non-Af 90, BUN/Creatinine Ratio 21.0 H, Glucose 121 H, Calcium 8.6, Troponin I High Sens 35 05/31/24 14:09: PT 15.7 H, INR 1.3, APTT 35.9, D-Dimer Quant (PE/DVT) 3.21 H*, Lactic Acid 0.9 Imaging Radiology Impression Chest X-Ray 04/05/24 14:15 IMPRESSION: Blunting of both costophrenic angles with increased markings at the lung bases slightly worse on the left side. This may represent either atelectasis and/or infiltrates. This is new as compared to prior study. Electronically Signed: Azam Mir MD at 14:42 EDT , Chest CTA 04/05/24 14:48 IMPRESSION: Bilateral pulmonary embolism as described. Small bilateral pleural effusions right greater than left with bibasilar atelectasis and/or infiltrates. Electronically Signed: Azam Mir MD at 15:09 EDT , Assessment & Plan Assessment/Plan (1) Bilateral pulmonary embolism: (2) UTI (urinary tract infection): QUALIFIERS: Hematuria presence: without hematuria Urinary tract infection type: acute cystitis Qualified Code(s): N30.00 - Acute cystitis without hematuria (3) Hypoxia: (4) Leukocytosis: QUALIFIERS: Leukocytosis type: bandemia Qualified Code(s): D72.825 - Bandemia (5) Hypokalemia: (6) Hyperchloremia: (7) Bandemia: (8) Elevated d-dimer: (9) Diarrhea: QUALIFIERS: Diarrhea type: functional diarrhea Qualified Code(s): K59.1 - Functional diarrhea (10) Nausea: PLAN: Plan Discussed with ED physician who recommended admission. D-dimer on presentation was positive. CTA chest independently interpreted: Bilateral pulmonary embolism with small bilateral pleural effusion. Agrees with radiology interpretation. EKG interpreted by myself showed sinus tachycardia. Started on heparin drip at the emergency department and continued. Troponin x 1 was negative. Will check echocardiogram. Admit to progressive care unit on telemetry. Hypokalemia Potassium presentation was 3.4. Received p.o. replacement. Trend. Recent acute UTI Stable On Augmentin; continued. Nausea and diarrhea Likely from antibiotic intolerance. Clinical monitoring. As needed Zofran. Time spent in the patient's overall evaluation,decision-making process, review of diagnostic data, adjustment of management, discussion with other providers, nursing and ancillary staff involved in patient's care documentation, 70 minutes. Advance care planning: Discussed with patient and family advanced directives as well as CODE STATUS. Explained various CODE STATUS: FULL CODE, DNR CCA, DNR CCA with no intubation, and DNR CC- and what each meant. Patient elected to be a full code with CPR and intubation if warranted. Order was placed. Time spent on discussion 16 minutes. Surrogate decision-maker: Son, Nate Teixeira; who is a medical doctor and who works at [employer]; and daughter. Charges/Coding Visit Charges Inpatient E&M: 05878 Init Hosp L3 Procedures Hospitalists Procedures: 72334 Advncd Care Plan 30 Min
--- NOTE | 2024-04-05 16:55 | ECHOCS_ITS ---
Reason For Study: EMBOLI Procedure This was a 2D Doppler, Color Flow transthoracic echocardiogram. The study was technically difficult. Due to elevated heart rate and SOB. Exam performed with PT sitting upright. Contrast injection was performed. Exam performed portable in patient room. Left Ventricle Normal left ventricle. The estimated ejection fraction is 55-60 %. Right Ventricle Normal right ventricle. Normal systolic function. Atria Normal left atrium. Normal right atrium. Mitral Valve The mitral valve is structurally normal. No prolapse or stenosis seen. Tricuspid Valve Normal tricuspid valve. Aortic Valve The aortic valve is not well visualized in the short axis view. Pulmonic Valve The pulmonic valve is not well visualized. Great Vessels Normal aortic root. Pericardium/Pleural No pericardial effusion. Medication Diluted definity 4.0ml given slow IV push to enhance endocardial definition. Performed a rapid injection of agitated mix of 9 cc saline and 1cc air to assess for atrial septal defect. MMode/2D Measurements & Calculations LVIDd: 3.7 cm IVSd: 0.95 cm Ao root diam: 2.7 cm LVIDs: 2.7 cm LVPWd: 0.92 cm FS: 27.4 % LAV(MOD-bp): 36.5 ml LVAd ap4: 19.3 cm2 SV(MOD-sp4): 28.8 ml LAV(MOD-bp) Indexed: 22.1 ml/m2 LVLd ap4: 6.5 cm LAV(MOD-sp2): 34.2 ml EDV(MOD-sp4): 46.6 ml LAV(MOD-sp4): 34.4 ml EDV(sp4-el): 48.5 ml LVAs ap4: 11.1 cm2 LVLs ap4: 5.9 cm ESV(MOD-sp4): 17.8 ml ESV(sp4-el): 17.8 ml EF(MOD-sp4): 61.8 % EF(sp4-el): 63.2 % SV(sp4-el): 30.7 ml LA A4 area: 13.8 cm2 LA dimension(2D): 2.8 cm RA A4 area: 12.8 cm2 TAPSE: 2.3 cm Time Measurements MV dec time: 0.12 sec Doppler Measurements & Calculations MV E max devon: 64.3 cm/sec Lat Peak E' Devon: 11.7 cm/sec Med Peak E' Devon: 7.8 cm/sec MV A max devon: 99.5 cm/sec E/E' lat: 5.5 E/E' med: 8.3 MV E/A: 0.65 MV V2 max: 83.9 cm/sec Ao V2 max: 166.5 cm/sec LV V1 max: 112.6 cm/sec MV max P.8 mmHg Ao max P.1 mmHg LV V1 max P.1 mmHg MV V2 mean: 52.9 cm/sec Ao V2 mean: 120.2 cm/sec LV V1 mean P.9 mmHg MV mean P.3 mmHg Ao mean P.2 mmHg LV V1 mean: 81.9 cm/sec MV V2 VTI: 10.9 cm Ao V2 VTI: 24.9 cm LV V1 VTI: 17.7 cm AV (velocity ratio): 0.71 PA V2 max: 105.1 cm/sec TR max devon: 214.1 cm/sec PA V2 mean: 59.9 cm/sec TR max P.3 mmHg ECHO/Echo Complete W/ Contrast Interpretation Summary The estimated ejection fraction is 55-60 %. No change from previous echo Contrast /definty used Ordering Physician: Antolin Rico Referring Physician: Rangel Santos Performed By: Zuleima Moore, ION, RVT
[2024-04-05 16:59] LABS: Squamous Epithelial Cells - UA 0-5 SEEN /hpf (5-10)
[2024-04-05] MEDS: 0.9% Saline Lock 10 ML Syringe IV (18:54)
[2024-04-05] MEDS: Budesonide Respules 0.5 MG/2 ML AMPUL.NEB. INHALATION (20:28)
[2024-04-05] MEDS: guaiFENesin 1,200 MG Tablet 1200 MG PO (21:22)
[2024-04-05] MEDS: Atorvastatin Calcium 10 MG Tablet 5 MG PO (21:22)
[2024-04-05] MEDS: Amox/Clavulanate 875 MG Tablet PO (21:33)
[2024-04-05 21:52] LABS: Partial Thromboplast Time 76.2 Seconds (24.1-36.2)
[2024-04-05] MEDS: Acetaminophen 325 MG Tablet 650 MG PO (23:40)
[2024-04-06] VITALS (21 sets, daily range): BP systolic 107–141; BP diastolic 71–97; PULSE 102–135; RESP 18–28; TEMP 36.7–38.7; O2SAT 92–99
--- NOTE | 2024-04-06 00:14 | PCM.HOSP.N ---
Hospitalist Note Patient with onset of fever, continued tachypnea and tachycardia with bilateral PE. Noted to have recent UTI on abx therapy. CTPA reviewed and concern for also infiltrates. UA upon presentation not marked. Will transition to IV rocephin and azithromycin, request urine antigens, respiratory panel, sputum Cx.
[2024-04-06] MEDS: Ceftriaxone 1 GM/50 ML BAG IV (00:55)
[2024-04-06] MEDS: Azithromycin 500 MG in Dextrose 5%-Water (250mL Bag) 250 ML 250 MG IV (01:46)
[2024-04-06 05:38] LABS: Absolute Lymphocyte Count 2.01 X10^3/uL (0.83-4.51); Basophil# 0.07 X10^3/uL; Basophil% 0.4 % (0-1); Eosinophils% 1.3 % (0-5); Hematocrit 39.8 % (37-47); Hemoglobin 12.7 g/dL (12.0-15.0); Lymphocyte # 2.01 X10^3/ul (0.83-4.51); Lymphocyte % 12.7 % (19-41); Mean Corp Hgb Conc 31.9 g/dL (32-36); Mean Corpuscular Hgb 30.5 pg (27.0-32.0); Mean Corpuscular Volume 95.7 fL (81-99); Mean Platelet Vol. 9.7 fl (6.2-12.0); Monocyte# 1.32 X10^3/uL; Monocyte% 8.3 % (0-10); NRBC Flagged by Analyzer 0 % (0-5); Neutrophil # 11.95 X10^3/uL (2.7-7.7); Neutrophil % 75.4 % (47-70); Platelet Count 371 K/mm3 (150-450); RBC Distribution Width CV 13.2 % (11.6-14.6); RBC Distribution Width SD 46.6 fl (35.1-43.9); Red Blood Count 4.16 M/mm3 (4.2-5.4); White Blood Count 15.9 K/mm3 (4.4-11.0)
[2024-04-06 05:39] LABS: Partial Thromboplast Time 58.5 Seconds (24.1-36.2)
[2024-04-06 05:57] LABS: Anion Gap 7 (5-15); BUN 10 mg/dL (7-18); BUN/Creat Ratio 15.3 RATIO (10-20); Calcium,Total 8.7 mg/dL (8.5-10.1); Chloride 109 mmol/L (98-107); Creatinine, Serum 0.65 mg/dL (0.55-1.02); EST Glomerular Filtration Rate 93 mL/min (>60); Est Glom Filt Rate - Afr Amer 112 mL/min (>60); Estimated Creatinine Clearance 50.15 ml/min; Glucose 119 mg/dL (74-106); Potassium 3.5 mmol/L (3.5-5.1); Sodium Level 138 mmol/L (136-145)
[2024-04-06] MEDS: Ipratropium/Albuterol Sulfate 3 ML AMPUL.NEB INHALATION ×3 (06:58→19:38)
[2024-04-06] MEDS: Budesonide Respules 0.5 MG/2 ML AMPUL.NEB. INHALATION ×2 (06:58→19:38)
--- NOTE | 2024-04-06 07:36 | PCM.PN.HOSP ---
Reason for Visit Reason for Visit: Diagnoses Bandemia (04/05/24) Hypokalemia (04/05/24) Other disorders of electrolyte and fluid balance, not elsewhere classified (04/05/24) Other pulmonary embolism without acute cor pulmonale (04/05/24) Functional diarrhea (04/05/24) Acute cystitis without hematuria (04/05/24) Hypoxemia (04/05/24) Nausea (04/05/24) Other specified abnormal findings of blood chemistry (04/05/24) Objective Data Objective Data Vital Signs: Vital Signs Temp Pulse Resp BP Pulse Ox O2 Del Method O2 Flow Rate 100.1 F H 108 H 27 H 139/76 H 97 Nasal Cannula 3 04/06/24 06:28 04/06/24 06:28 04/06/24 06:28 04/06/24 06:28 04/06/24 06:28 04/06/24 06:28 04/06/24 06:28 Oxygen Flow Rate (L/min) 3 Oxygen Delivery Method Nasal Cannula Weight: 138 lb 14.259 oz Body Mass Index (BMI) 24.5 Intake & Output: Intake and Output for Last 24 Hours 04/04/24 04/05/24 04/06/24 23:59 23:59 23:59 Intake Total 1490.97 / 1490.97 559.83 / 559.83 Balance 1490.97 / 1490.97 559.83 / 559.83 Lab / Micro Data 04/06/24 05:19 04/06/24 05:19 Labs: Laboratory Results - last 24 hr 04/05/24 13:45: WBC 13.4 H, RBC 4.29, Hgb 13.1, Hct 39.8, MCV 92.8, MCH 30.5, MCHC 32.9, RDW Std Deviation 44.3 H, RDW Coeff of Cecilia 13.1, Plt Count 377, MPV 9.6, Immature Gran % (Auto) 1.300 H, Neut % (Auto) 82.5 H, Lymph % (Auto) 7.4 L, [place] % (Auto) 7.0, Eos % (Auto) 1.4, Baso % (Auto) 0.4, Absolute Neuts (auto) 11.1 H, Absolute Lymphs (auto) 0.99, Nucleated RBC % 0, Sodium 139, Potassium 3.0 L, Chloride 109 H, Carbon Dioxide 21.0, Anion Gap 9, BUN 14, Creatinine 0.67, Estim Creat Clear Calc 46.40, Est GFR (MDRD) Af Amer 109, Est GFR (MDRD) Non-Af 90, BUN/Creatinine Ratio 21.0 H, Glucose 121 H, Calcium 8.6, Troponin I High Sens 35 04/05/24 14:09: PT 15.7 H, INR 1.3, APTT 35.9, D-Dimer Quant (PE/DVT) 3.21 H*, Lactic Acid 0.9 04/05/24 15:12: Urine Color Yellow, Urine Clarity Clear, Urine pH 6.5, Ur Specific [place] 1.010, Urine Protein Negative, Urine Glucose (UA) Normal, Urine Ketones 15 H, Urine Occult Blood 10 H, Urine Nitrite Negative, Urine Bilirubin Negative, Urine Urobilinogen Normal, Ur Leukocyte Esterase 25 H, Urine RBC 0 SEEN, Urine WBC 0 SEEN, Ur Squamous Epith Cells 0-5 SEEN, Urine Bacteria 0 SEEN, Urine Mucus 0 SEEN 04/05/24 21:30: APTT 76.2 H 04/06/24 05:19: WBC 15.9 H, RBC 4.16 L, Hgb 12.7, Hct 39.8, MCV 95.7, MCH 30.5, MCHC 31.9 L, RDW Std Deviation 46.6 H, RDW Coeff of Cecilia 13.2, Plt Count 371, MPV 9.7, Immature Gran % (Auto) 1.900 H, Neut % (Auto) 75.4 H, Lymph % (Auto) 12.7 L, [place] % (Auto) 8.3, Eos % (Auto) 1.3, Baso % (Auto) 0.4, Absolute Neuts (auto) 12.0 H, Absolute Lymphs (auto) 2.01, Nucleated RBC % 0, APTT 58.5 H, Sodium 138, Potassium 3.5, Chloride 109 H, Carbon Dioxide 22.0, Anion Gap 7, BUN 10, Creatinine 0.65, Estim Creat Clear Calc 50.15, Est GFR (MDRD) Af Amer 112, Est GFR (MDRD) Non-Af 93, BUN/Creatinine Ratio 15.3, Glucose 119 H, Calcium 8.7 Micro: Microbiology 04/06/24 00:40 Mucosa - Nasopharyngeal Respiratory Panel (PCR) - Final Rhinovirus 04/05/24 15:12 Urine, Clean Catch Legionella Antigen - Final 04/05/24 15:12 Urine, Clean Catch Streptococcus pneumoniae Antigen (M - Final Radiography Diagnostic Testing: Radiology Impression Chest X-Ray 04/05/24 14:15 IMPRESSION: Blunting of both costophrenic angles with increased markings at the lung bases slightly worse on the left side. This may represent either atelectasis and/or infiltrates. This is new as compared to prior study. Electronically Signed: Azam Mir MD at 14:42 EDT , Chest CTA 04/05/24 14:48 IMPRESSION: Bilateral pulmonary embolism as described. Small bilateral pleural effusions right greater than left with bibasilar atelectasis and/or infiltrates. Electronically Signed: Azam Mir MD at 15:09 EDT , Physical Exam Narrative Seen and examined. Mild sinus tachycardia. Shortness of breath is much improved. No chest pain or pressure. Patient has mild cough. Physical exam General: Alert, Oriented x3, Cooperative HEENT: Atraumatic, PERRLA, EOMI, Normocephalic Oral: No Gingival or Mucosal Lesions/ Ulcerations Neck: Supple, No JVD, Negative Carotid Bruits Chest wall/Lungs: Air entry diminished in bilateral lung bases. No crepitation/rhonchi. Tachypnea and mild hypoxia Cardiovascular: Sinus tachycardia, Normal S1, Normal S2, No M/G/R Abdomen: Bowel Sounds Present, Soft, Non Tender, Non-Distended : No dysuria. No renal angle tenderness. No suprapubic tenderness. Extremities: No edema, Capillary Refill Less than 3 Seconds Skin: No rashes, No breakdown Musculoskeletal: No Tenderness to Palpation of Joints or Extremities. ROM intact Neurological: Cranial nerves II-XII grossly intact, DTR 2+/4. No acute focal neurological deficit. Psych/Mental Status: Normal Affect, Appropriate. Assessment & Plan Assessment/Plan (1) Bilateral pulmonary embolism: (2) UTI (urinary tract infection): QUALIFIERS: Hematuria presence: without hematuria Urinary tract infection type: acute cystitis Qualified Code(s): N30.00 - Acute cystitis without hematuria (3) Hypokalemia: (4) Diarrhea: QUALIFIERS: Diarrhea type: functional diarrhea Qualified Code(s): K59.1 - Functional diarrhea PLAN: Plan 78-year-old female was admitted with complaint of continued fever, not feeling well. Earlier she was admitted after UTI on April 01 and discharged on on Augmentin with urine culture showing Enterococcus faecalis. Also complained of some diarrhea. She was tachycardic in ED, EKG showing sinus tachycardia at 133 bpm, no significant ST-T changes. 1. Acute multiple bilateral pulmonary artery involving both right and left distal pulmonary arteries and its branches in the upper and lower lobes complicated with right lung base rhinovirus pneumonia: Patient is being admitted in PCU. Chest CTA individually reviewed and findings as described.D-dimer on presentation was positive. Patient started on IV heparin drip in ED and changed to Lovenox 1 mg/kg body weight every 12 hours. Troponin negative 2D echocardiogram was ordered. Patient had fever, tachypnea and tachycardia due to bilateral PE, possible pneumonia. Mild leukocytosis. Patient was also on prednisone she discontinued about 2 weeks ago respiratory panel showed rhinovirus, lungs well-expanded with a small bilateral pleural effusion right greater than left with underlying atelectasis and infiltrate was suggestive of right lung base rhinovirus pneumonia. Continue Augmentin. 2. Hypokalemia Potassium presentation was 3.4. Repeat potassium 3.5. Continue potassium replacement. 3 recent acute UTI On Augmentin; continued. Need to complete Augmentin. 4. Nausea and diarrhea Likely from antibiotic intolerance. Clinical monitoring. As needed Zofran. Probiotic added Surrogate decision-maker: Son, Nate Ferris; who is a medical doctor and who works at [employer]; and daughter. I talked with both daughter and her son Dr. Sullivan: In the room and gave clinical update about the diagnosis, CT findings, rhinovirus pneumonia and UTI. Total time of the visit including total time spent in counseling or coordination of care, (more than 50% of the total time, spent in obtaining medical information from nurses and other ancillary care providers,explaining to the patient about labs, imaging, diagnosis and management of active complex medical conditions), , review of labs and imaging is 40 minutes. Charges/Coding Visit Charges Inpatient E&M: 73826 Subs Hosp L3
[2024-04-06] MEDS: Acetaminophen 325 MG Tablet 650 MG PO ×2 (07:47→16:10)
[2024-04-06] MEDS: guaiFENesin 1,200 MG Tablet 1200 MG PO ×2 (07:47→21:46)
[2024-04-06] MEDS: Pantoprazole Sodium 20 MG Tablet PO (07:47)
[2024-04-06] MEDS: Amox/Clavulanate 875 MG Tablet PO ×2 (08:48→16:09)
[2024-04-06] MEDS: 0.9% Saline Lock 10 ML Syringe IV (08:48)
[2024-04-06] MEDS: Lactobacillis Acidophilus 1 CAP PO ×2 (09:02→21:47)
[2024-04-06] MEDS: Enoxaparin 60 MG/0.6 ML Syringe SC ×2 (09:02→21:47)
[2024-04-06] MEDS: Potassium Chloride Oral Tablet 20 MEQ 40 MEQ PO (10:27)
--- NOTE | 2024-04-06 12:05 | CASEMGMT ---
RN [facility] Assessment: Face to Face with pt for initial transition planning/care coordination assessment. RN CM introduced self and role at [facility], pt voices understanding and consents to assessment. Pt is A&O x4 and answers all questions appropriately at this time. Significant Other at bedside. Care providers, pharmacy, and demographics verified/updated. Admitting Dx: B/L pulmonary emboli PCP: Dr. Rangel Santos Specialists: Dr. Villatoro with urology Preferred Pharmacy: [facility] in [place] Insurance: [facility] Prescription Benefit: yes LNOK: Daughter Patti and son Dr. Sullivan Living Arrangements: Pt lives at home with significant other Dashawn. Home is 2 story with main floor bed/bath and 1 step to enter. Pt is independent at baseline with ADLs and IADLs. Pt is still working and normally walks for 1 hour a day. Transportation: Pt drives self and denies concerns with transportation. DME: None HHC/SNF: No history Pt states no concerns with going home at time of dc. Pt states no further concerns/needs. CM to follow. Advised pt to ask CM if any further question/concerns/needs arise, voices understanding. Pt Goal: Home Plan: Home with no skilled needs. Pt is currently on oxygen and will need to be weaned prior to DC. Pt will also be DC on an anticoagulant and will need a up check prior to DC. Jennifer Martinez MSN, RN, CCM
[2024-04-06] MEDS: Atorvastatin Calcium 10 MG Tablet 5 MG PO (21:45)
[2024-04-06] MEDS: Methenamine Hippurate 1 GM Tablet PO (21:47)
[2024-04-07] VITALS (12 sets, daily range): BP systolic 118–145; BP diastolic 62–78; PULSE 101–128; RESP 19–29; TEMP 36.7–38.9; O2SAT 93–97
[2024-04-07] MEDS: Acetaminophen 325 MG Tablet 650 MG PO (00:12)
[2024-04-07 05:44] LABS: Absolute Lymphocyte Count 1.64 X10^3/uL (0.83-4.51); Absolute Neutrophil Count 16.4 X10^3/uL (2.0-7.7); Basophil# 0.07 X10^3/uL; Basophil% 0.4 % (0-1); Eosinophil# 0.11 X10^3/uL; Eosinophils% 0.6 % (0-5); Hematocrit 37.3 % (37-47); Hemoglobin 11.8 g/dL (12.0-15.0); Lymphocyte # 1.64 X10^3/ul (0.83-4.51); Lymphocyte % 8.2 % (19-41); Mean Corp Hgb Conc 31.6 g/dL (32-36); Mean Corpuscular Hgb 30.6 pg (27.0-32.0); Mean Corpuscular Volume 96.6 fL (81-99); Mean Platelet Vol. 10.1 fl (6.2-12.0); Monocyte# 1.39 X10^3/uL; NRBC Flagged by Analyzer 0 % (0-5); Neutrophil % 82.1 % (47-70); Platelet Count 372 K/mm3 (150-450); RBC Distribution Width CV 13.4 % (11.6-14.6); RBC Distribution Width SD 47.7 fl (35.1-43.9); Red Blood Count 3.86 M/mm3 (4.2-5.4)
[2024-04-07 06:06] LABS: Anion Gap 6 (5-15); BUN 13 mg/dL (7-18); BUN/Creat Ratio 23.2 RATIO (10-20); Calcium,Total 9.2 mg/dL (8.5-10.1); Chloride 109 mmol/L (98-107); Creatinine, Serum 0.56 mg/dL (0.55-1.02); EST Glomerular Filtration Rate 111 mL/min (>60); Est Glom Filt Rate - Afr Amer 134 mL/min (>60); Estimated Creatinine Clearance 50.15 ml/min; Glucose 113 mg/dL (74-106); Potassium 4.1 mmol/L (3.5-5.1); Sodium Level 139 mmol/L (136-145)
[2024-04-07] MEDS: Ipratropium/Albuterol Sulfate 3 ML AMPUL.NEB INHALATION ×3 (07:19→19:05)
[2024-04-07] MEDS: Enoxaparin 60 MG/0.6 ML Syringe SC ×2 (07:53→21:32)
[2024-04-07] MEDS: Lactobacillis Acidophilus 1 CAP PO ×2 (07:53→21:32)
[2024-04-07] MEDS: Pantoprazole Sodium 20 MG Tablet PO (07:53)
[2024-04-07] MEDS: guaiFENesin 1,200 MG Tablet 1200 MG PO (07:53)
[2024-04-07] MEDS: Potassium Chloride Oral Tablet 20 MEQ 40 MEQ PO (07:53)
[2024-04-07] MEDS: Amox/Clavulanate 875 MG Tablet PO (07:53)
[2024-04-07] MEDS: Budesonide Respules 0.5 MG/2 ML AMPUL.NEB. INHALATION ×2 (08:33→19:05)
[2024-04-07] MEDS: Piperacil/Tazobactam 3.375 GM in 0.9% Normal Saline (50mL MB+) 50 ML IV ×2 (10:59→21:15)
[2024-04-07] MEDS: 0.9% Saline Lock 10 ML Syringe IV ×2 (11:00→21:24)
[2024-04-07 11:27] LABS: AST(SGOT) 20 U/L (15-37); Alanine Aminotransfer ALT/SGPT 17 U/L (13-56); Albumin, Serum 1.9 g/dL (3.2-5.0); Alkaline Phosphatase 67 U/L (45-117); Bilirubin, Direct 0.15 mg/dL (0.00-0.30); Protein, Total 5.9 g/dL (6.4-8.2)
[2024-04-07] MEDS: Vancomycin IV 1,000 MG/200 ML BAG 200 MG IV (11:36)
--- NOTE | 2024-04-07 13:07 | PN.HOSP_ITS ---
Reason for Visit Reason for Visit: Diagnoses Bandemia (04/05/24) Hypokalemia (04/05/24) Other disorders of electrolyte and fluid balance, not elsewhere classified (04/05/24) Other pulmonary embolism without acute cor pulmonale (04/05/24) Functional diarrhea (04/05/24) Acute cystitis without hematuria (04/05/24) Hypoxemia (04/05/24) Nausea (04/05/24) Other specified abnormal findings of blood chemistry (04/05/24) Objective Data Objective Data Vital Signs: Vital Signs Temp Pulse Resp BP Pulse Ox O2 Del Method O2 Flow Rate 98.0 F 122 H 20 H 118/62 97 Nasal Cannula 2 04/07/24 09:58 04/07/24 09:58 04/07/24 09:58 04/07/24 09:58 04/07/24 09:58 04/07/24 09:58 04/07/24 09:58 Oxygen Flow Rate (L/min) 2 Oxygen Delivery Method Nasal Cannula Weight: 138 lb 14.259 oz Body Mass Index (BMI) 24.5 Intake & Output: Intake and Output for Last 24 Hours 04/05/24 04/06/24 04/07/24 23:59 23:59 23:59 Intake Total 1490.97 / 1490.97 1559.78 / 1559.78 460 / 460 Balance 1490.97 / 1490.97 1559.78 / 1559.78 460 / 460 Lab / Micro Data 04/07/24 05:06 04/07/24 05:04 Labs: Laboratory Results - last 24 hr 04/07/24 05:04: Sodium 139, Potassium 4.1, Chloride 109 H, Carbon Dioxide 24.0, Anion Gap 6, BUN 13, Creatinine 0.56, Estim Creat Clear Calc 50.15, Est GFR (MDRD) Af Amer 134, Est GFR (MDRD) Non-Af 111, BUN/Creatinine Ratio 23.2 H, G lucose 113 H, Calcium 9.2 04/07/24 05:06: WBC 20.0 H, RBC 3.86 L, Hgb 11.8 L, Hct 37.3, MCV 96.6, MCH 30.6, MCHC 31.6 L, RDW Std Deviation 47.7 H, RDW Coeff of Cecilia 13.4, Plt Count 372, MPV 10.1, Immature Gran % (Auto) 1.700 H, Neut % (Auto) 82.1 H, Lymph % (Auto) 8.2 L, [place] % (Auto) 7.0, Eos % (Auto) 0.6, Baso % (Auto) 0.4, Absolute Neuts (auto) 16.4 H, Absolute Lymphs (auto) 1.64, Nucleated RBC % 0, Total Bilirubin 0.50, Direct Bilirubin 0.15, AST 20, ALT 17, Alkaline Phosphatase 67, C-React Prot Ext Range 228.00 H, Total Protein 5.9 L, Albumin 1.9 L, Globulin 4.0 Micro: Microbiology 04/06/24 00:40 Mucosa - Nasopharyngeal Respiratory Panel (PCR) - Final Rhinovirus 04/05/24 15:12 Urine, Clean Catch Legionella Antigen - Final 04/05/24 15:12 Urine, Clean Catch Streptococcus pneumoniae Antigen (M - Final Radiography Diagnostic Testing: Radiology Impression Echocardiogram 04/05/24 16:55 Interpretation Summary The estimated ejection fraction is 55-60 %. No change from previous echo Contrast /definty used Ordering Physician: Antolin Rico Referring Physician: Rangel Santos Performed By: Zuleima Moore, ION, RVT Physical Exam Narrative Seen and examined. Fever, Temperature 102.1 Fahrenheit, 101 and 100.3 Fahrenheit last night. Mild sinus tachycardia. Shortness of breath is much improved. No chest pain or pressure. Cough also better. Physical exam General: Alert, Oriented x3, Cooperative HEENT: Atraumatic, PERRLA, EOMI, Normocephalic Oral: No Gingival or Mucosal Lesions/ Ulcerations Neck: Supple, No JVD, Negative Carotid Bruits Chest wall/Lungs: Air entry diminished in bilateral lung bases. No crepitation/rhonchi. Mild tachypnea with hypoxia Cardiovascular: Sinus tachycardia, Normal S1, Normal S2, No M/G/R Abdomen: Bowel Sounds Present, Soft, Non Tender, Non-Distended : No dysuria. No renal angle tenderness. No suprapubic tenderness. Extremities: No edema, Capillary Refill Less than 3 Seconds Skin: No rashes, No breakdown Musculoskeletal: No Tenderness to Palpation of Joints or Extremities. ROM intact Neurological: Cranial nerves II-XII grossly intact, DTR 2+/4. No acute focal neurological deficit. Psych/Mental Status: Normal Affect, Appropriate. Assessment & Plan Assessment/Plan (1) Bilateral pulmonary embolism: (2) UTI (urinary tract infection): QUALIFIERS: Urinary tract infection type: acute cystitis H ematuria presence: without hematuria Qualified Code(s): N30.00 - Acute cystitis without hematuria (3) Hypokalemia: (4) Diarrhea: QUALIFIERS: Diarrhea type: functional diarrhea Qualified Code(s): K59.1 - Functional diarrhea PLAN: Plan 78-year-old female was admitted with complaint of continued fever, not feeling well. Earlier she was admitted after UTI on April 01 and discharged on on Augmentin with urine culture showing Enterococcus faecalis. Also complained of some diarrhea. She was tachycardic in ED, EKG showing sinus tachycardia at 133 bpm, no significant ST-T changes. 1. Acute multiple bilateral pulmonary artery involving both right and left distal pulmonary arteries and its branches in the upper and lower lobes complicated with right lung base rhinovirus pneumonia: Patient is being admitted in PCU. Chest CTA individually reviewed and findings as described.D-dimer on presentation was positive. Patient started on IV heparin drip in ED and changed to Lovenox 1 mg/kg body weight every 12 hours. Troponin negative 2D echocardiogram was ordered. Patient had fever, tachypnea and tachycardia due to bilateral PE, possible pneumonia. Mild leukocytosis. Patient was also on prednisone she discontinued about 2 weeks ago respiratory panel showed rhinovirus, lungs well-expanded with a small bilateral pleural effusion right greater than left with underlying atelectasis and infiltrate was suggestive of right lung base rhinovirus pneumonia. Continue Augmentin. 04/07: Patient has high-grade temperature Tmax 102.1 Fahrenheit last night. Leukocytosis worsened, mainly in nature granulocytes 1.7%, neutrophil 82%. CRP elevated. Liver chemistry does not show elevated ALT or AST. Blood cultures x 2 ordered. Urinary antigens are negative. Antibiotic changed to IV vancomycin and Zosyn. ID consult requested. I still think patient has viral pneumonia but high risk for secondary bacterial pneumonia. 2. Hypokalemia Potassium presentation was 3.4. Repeat potassium 3.5. Continue potassium replacement. /: Repeat potassium 4.1. Hypokalemia resolved. 3. Recent acute UTI On Augmentin; continued. Need to complete Augmentin. 04/07: Augmentin changed to IV vancomycin and Zosyn. 4. Nausea and diarrhea Likely from antibiotic intolerance. Clinical monitoring. As needed Zofran. Probiotic added Surrogate decision-maker: Son, Dr. Nate Ferris; who is a medical doctor and who works at [employer]; and daughter. I talked with both daughter and her son Dr. Sullivan: In the room and gave clinical update about the diagnosis, CT findings, rhinovirus pneumonia and UTI. Total time of the visit including total time spent in counseling or coordination of care, (more than 50% of the total time, spent in obtaining medical information from nurses and other ancillary care providers,explaining to the patient about labs, imaging, diagnosis and management of active complex medical conditions), , review of labs and imaging is 40 minutes. Discussed with the patient's daughter near the bedside and explained about ongoing infectious process most likely viral pneumonia with high risk of secondary bacterial pneumonia, broadening of IV antibiotic spectrum and ID consult. Charges/Coding Visit Charges Inpatient E&M: 42001 Subs Hosp L2
[2024-04-07 13:40] LABS: Erythrocyte Sedimentation Rate 55 mm/hr (0-30)
--- NOTE | 2024-04-07 15:29 | PCM.RX.CS ---
Consult Antibiotic Management Pharmacy has been consulted to manage selected antibiotic: Vancomycin Type of Intervention Type of Consult: Follow-up Suspected Infection Suspected Infection: Pneumonia Labs Labs: Sodium 139 mmol/L (136-145) 04/07/24 05:04 Potassium 4.1 mmol/L (3.5-5.1) 04/07/24 05:04 Chloride 109 mmol/L (98-107) H 04/07/24 05:04 Carbon Dioxide 24.0 mmol/L (21.0-32.0) 04/07/24 05:04 Anion Gap 6 (5-15) 04/07/24 05:04 BUN 13 mg/dL (7-18) 04/07/24 05:04 Creatinine 0.56 mg/dL (0.55-1.02) 04/07/24 05:04 Est GFR (MDRD) Af Amer 134 mL/min (>60) 04/07/24 05:04 Est GFR (MDRD) Non-Af 111 mL/min (>60) 04/07/24 05:04 BUN/Creatinine Ratio 23.2 RATIO (10-20) H 04/07/24 05:04 Glucose 113 mg/dL (74-106) H 04/07/24 05:04 Microbiology Microbiology: Microbiology 04/06/24 00:40 Mucosa - Nasopharyngeal Respiratory Panel (PCR) - Final Rhinovirus 04/05/24 15:12 Urine, Clean Catch Legionella Antigen - Final 04/05/24 15:12 Urine, Clean Catch Streptococcus pneumoniae Antigen (M - Final Dosing Weight Weight used for dosin kg Estimated Creatinine Clearance Estimated Creatinine Clearance: 46ml/min Goal Trough Goal Trough: 15-20 mcg/mL Pharmacy Plan for Drug Dosing Pharmacy Plan for Drug Dosing: [facility] IV VANCOMYCIN Consulting Physician: Dr. Maddox Indication: Pneumonia Goal Trough: 15-20 SrCr: 0.8 (adjusted for age) CrCl: 46.4 mls/min Comments: pt received at 1000mg (15mg/kg) loading dose on 04/07/24 at 1136 Vancomycin Dose: based on patients weight and renal function, recommend an initial dose of 500mg q12h starting 04/07/24 at 2300. trough prior to the 4th dose Pending Level: 04/08/24 at 2230 Pharmacy Service will continue to monitor and adjust dosing as required. Follow-Up Labs Follow-Up Labs: Trough: Vancomycin (04/08/24 at 2230)
[2024-04-07] MEDS: Methenamine Hippurate 1 GM Tablet PO (21:31)
[2024-04-07] MEDS: Atorvastatin Calcium 10 MG Tablet 5 MG PO (21:31)
[2024-04-07] MEDS: guaiFENesin/D-Methorphan TAB.SR.12H 2 TABLET PO (21:33)
[2024-04-07] MEDS: Ascorbic Acid 500 MG Tablet 1000 MG PO (21:38)
[2024-04-07] MEDS: Famotidine 20 MG Tablet PO (21:40)
[2024-04-08] VITALS (10 sets, daily range): BP systolic 111–130; BP diastolic 62–81; PULSE 106–126; RESP 18–22; TEMP 36.4–37.3; O2SAT 93–96
[2024-04-08] MEDS: Vancomycin IV 500 MG/100 ML BAG 100 MG IV ×2 (02:21→12:16)
[2024-04-08 05:18] LABS: Absolute Lymphocyte Count 1.92 X10^3/uL (0.83-4.51); Absolute Neutrophil Count 14.6 X10^3/uL (2.0-7.7); Basophil# 0.07 X10^3/uL; Basophil% 0.4 % (0-1); Eosinophil# 0.22 X10^3/uL; Eosinophils% 1.2 % (0-5); Hematocrit 34.2 % (37-47); Lymphocyte # 1.92 X10^3/ul (0.83-4.51); Lymphocyte % 10.5 % (19-41); Mean Corp Hgb Conc 32.2 g/dL (32-36); Mean Corpuscular Hgb 30.8 pg (27.0-32.0); Mean Corpuscular Volume 95.8 fL (81-99); Mean Platelet Vol. 9.9 fl (6.2-12.0); Monocyte% 6.5 % (0-10); NRBC Flagged by Analyzer 0 % (0-5); Neutrophil # 14.59 X10^3/uL (2.7-7.7); Neutrophil % 79.5 % (47-70); Platelet Count 419 K/mm3 (150-450); RBC Distribution Width CV 13.6 % (11.6-14.6); RBC Distribution Width SD 48.3 fl (35.1-43.9); Red Blood Count 3.57 M/mm3 (4.2-5.4); White Blood Count 18.4 K/mm3 (4.4-11.0)
[2024-04-08 05:32] LABS: Anion Gap 7 (5-15); BUN 10 mg/dL (7-18); BUN/Creat Ratio 16.1 RATIO (10-20); Chloride 108 mmol/L (98-107); Creatinine, Serum 0.62 mg/dL (0.55-1.02); EST Glomerular Filtration Rate 98 mL/min (>60); Est Glom Filt Rate - Afr Amer 119 mL/min (>60); Estimated Creatinine Clearance 50.15 ml/min; Glucose 109 mg/dL (74-106); Potassium 4.1 mmol/L (3.5-5.1); Sodium Level 138 mmol/L (136-145)
--- NOTE | 2024-04-08 05:39 | NURSING ---
~0100 This RN called Pharmacist, Dutch, to let him know that we lost one of patient's IVs earlier in the night and have had a difficult time gaining additional access. This RN asked if the Zosyn should be stopped to start the Vancomycin. Dutch recommended to finish the Zosyn and then start the Vancomycin after the Zosyn was complete.
[2024-04-08] MEDS: Budesonide Respules 0.5 MG/2 ML AMPUL.NEB. INHALATION ×2 (07:45→19:33)
[2024-04-08] MEDS: Ipratropium/Albuterol Sulfate 3 ML AMPUL.NEB INHALATION ×3 (07:45→19:33)
--- NOTE | 2024-04-08 09:01 | NURSING ---
Patient was on 2L NC, weaned to room air, O2 saturations dropped to 87%, placed on 1L NC, O2 saturations improved to 93%
--- NOTE | 2024-04-08 09:08 | EKG12_ITS ---
Test Reason : RHYTHM CHANGE Blood Pressure : / mmHG Vent. Rate : 127 BPM Atrial Rate : 000 BPM P-R Int : 000 ms QRS Dur : 066 ms QT Int : 306 ms P-R-T Axes : 000 -04 030 degrees QTc Int : 444 ms Atrial fibrillation with rapid ventricular response Low voltage QRS Septal infarct (cited on or before 05-APR-2024) Abnormal ECG When compared with ECG of 05-APR-2024 13:35, Atrial fibrillation has replaced Sinus rhythm Confirmed by DRAGAN LOREDO, DIANA ([id number]), editorial assistant DERICK MEANS ([id number]) on 04/09/2024 6:12:52 AM Referred By: MYLENE Confirmed By:DIANA ARCHIBALD MD
[2024-04-08] MEDS: Potassium Chloride Oral Tablet 20 MEQ 40 MEQ PO (09:18)
[2024-04-08] MEDS: Enoxaparin 60 MG/0.6 ML Syringe SC ×2 (09:18→21:57)
[2024-04-08] MEDS: Pantoprazole Sodium 20 MG Tablet PO (09:18)
[2024-04-08] MEDS: Lactobacillis Acidophilus 1 CAP PO ×2 (09:18→21:57)
[2024-04-08] MEDS: guaiFENesin/D-Methorphan TAB.SR.12H 2 TABLET PO ×2 (09:18→21:57)
[2024-04-08 09:58] LABS: Procalcitonin 0.22 ng/mL (0.00-0.09)
[2024-04-08] MEDS: dilTIAZem 60 MG Tablet PO (10:02)
--- NOTE | 2024-04-08 10:15 | RAD_ITS ---
STUDY: X-RAY CHEST REASON FOR EXAM: Female, 78 years old. Fever TECHNIQUE: PA and lateral views of the chest. COMPARISON: Comparison is made with prior study of April 05, 2024. FINDINGS: EKG electrodes are seen. Blunting of both costophrenic angles with bibasilar atelectasis worse on the left side. Normal size heart. Normal mediastinum and opal. Normal visualized pulmonary arteries. Normal visualized aortic arch and descending thoracic aorta. There is an increased kyphosis of the thoracic spine. Fusion in the upper lumbar spine. Normal visualized ribs, clavicles, and shoulders. There is no demonstrated abnormality of the visualized soft tissue structures of the upper abdomen. RAD/Chest PA and Lateral IMPRESSION: Blunting of both costophrenic angles with increased markings at the lung bases suggest some bibasilar atelectasis. Electronically Signed: Azam Mir MD at 12:33 EDT ,
--- NOTE | 2024-04-08 11:47 | RAD_ITS ---
STUDY: X-RAY CHEST REASON FOR EXAM: Female, 78 years old. picc placement TECHNIQUE: Single AP portable view of the chest. COMPARISON: Comparison is made with prior study done earlier today. FINDINGS: A right-sided PICC line catheter as been placed with the tip at the junction of the superior vena cava and right atrium. EKG electrodes are seen. Blunting of both costophrenic angles more prominent on the left side with mild bibasilar atelectasis. Normal size heart. Normal mediastinum and opal. Normal visualized pulmonary arteries. Normal visualized aortic arch and descending thoracic aorta. Normal visualized thoracic spine. Normal visualized ribs, clavicles, and shoulders. There is no demonstrated abnormality of the visualized soft tissue structures of the upper abdomen. RAD/CXR for Line Placement IMPRESSION: The tip of the right PICC line catheter is at the junction of the superior vena cava and right atrium. Blunting of both costophrenic angles more prominent on the left side with findings suggestive of bibasilar atelectasis. Electronically Signed: Azam Mir MD at 12:25 EDT ,
--- NOTE | 2024-04-08 11:55 | PRO.PCM_ITS ---
Procedure Report Date of Procedure: 04/08/24 Procedures Radiology Radiology Access Procedures: PICC Procedure Time Out Time Out Informed consent given: Yes Consent signed: Yes Time out checklist: patient, procedure, site marked/identified, positioning of patient, supplies available and allergies confirmed Time out verified: Yes Time out date: 04/08/24 Time out time: 10:58 PICC Line Consent Screening tool completed:: Yes Consent obtained:: Yes Consent given by (patient or responsible constitution party):: patient Line successful (if no, document why in comments):: Yes Insertion Reason for Insertion: Poor Venous Access Date of Insertion: 04/08/24 Ok to use: Yes Type of PICC inserted: Dual Power PICC PICC Lot #: [id number] PICC Reference #: [id number] Microintroducer Used: Yes (NOT included in Kit) Ultrasound/Equipment Used: Probe Cover Kit Trimmed Length (cm): 42 Insertion Length (cm): 42 Exposed Length (cm): 0 Tip Placement: Caval Atrial Junction Placement Confirmation: Xray Insertion Vein: Right Basilic Insertion Attempts: 1 Local Anesthesia Used: Lidocaine 1% (in kit) Dressing Applied: Statlock and Tegaderm CHG Arm Measurement above site (in cm): 29 Patient Tolerated Procedure: Well Threading Difficulties: No Comments Comment: Patient identity was verified with two patient identifiers. Informed consent was obtained and time-out was completed. Hands were sanitized. The patient was positioned supine with right arm at 90 degrees. The patient's upper arm vasculature was assessed using ultrasound. Patency of the right basilic vein was confirmed and the vein was externally marked. An external measurement was obtained of 42 cm. External leads were applied to the patient's right upper chest and laterally and inferior of the umbilicus on the mid axillary line. Cap, mask, and prep gloves were donned. The underdrape was placed under the patient's arm. The site was prepped with chlorhexidine, and tourniquet was loosely applied. Prep gloves were discarded, and hands were sanitized. The sterile kit was opened with additional supplies dropped in. Sterile gown and gloves were donned, and the patient was draped. The sterile kit was assembled with needle, introducer, needless connectors, and each catheter lumen flushed with sterile normal saline. The marked site of insertion was anesthetized with 1% lidocaine from the kit. Patient tolerated well. The right basilic vein was then accessed using ultrasound guidance and guidewire was inserted to safety carmen. The tourniquet was released. The access needle was removed while securing the guidewire in place. The site was again anesthetized with 1% lidocaine, prior to insertion of introducer sheath and dilator. Patient tolerated the insertion well. The catheter was trimmed to a length of 42 cm. Using 3C guidance, the catheter was then inserted through the introducer sheath, slowly. There was no resistance on insertion. The catheter followed the expected course of the vessel using 3CG tracking. The introducer sheath was retracted and peeled away, incrementally, while keeping the catheter secured. The catheter was advanced to an insertion length of 42 cm, leaving 0 cm external. The patient is in atrial fibrillation, so a chest x-ray will be obtained to confirm placement. The stylet was removed. A flushed needleless connector was attached to the lumen. Aspiration of the lumen was performed to remove any air and confirm blood return. Blood return was verified and each lumen was flushed with 10 ml of sterile normal saline in a pulsatile fashion. The each lumen was clamped with the last pulsed flush. Total sterile flushes used for the insertion was 5 10 ml syringes, 2 from the kit. Finally, the insertion site was cleaned with chlorhexidine, and the catheter was secured using a StatLock. The site was covered with a Tegaderm CHG Dressing and disinfecting caps were applied. Baseline arm circumference was obtained at the insertion site and measured 29 cm. The patient was provided with a patient education handout on PICC line care of infection prevention, heavy lifting restriction, maintaining mobility, and watching for any signs of infection. Portable chest x-ray was obtained to confirm placement, and the tip is at the level of the cavoatrial junction. The primary nurse is aware that the PICC line is ready for use.
[2024-04-08] MEDS: Piperacil/Tazobactam 3.375 GM in 0.9% Normal Saline (50mL MB+) 50 ML IV ×2 (12:16→22:01)
--- NOTE | 2024-04-08 13:14 | PN.HOSP_ITS ---
Reason for Visit Reason for Visit: Diagnoses Bandemia (04/05/24) Hypokalemia (04/05/24) Other disorders of electrolyte and fluid balance, not elsewhere classified (04/05/24) Other pulmonary embolism without acute cor pulmonale (04/05/24) Functional diarrhea (04/05/24) Acute cystitis without hematuria (04/05/24) Hypoxemia (04/05/24) Nausea (04/05/24) Other specified abnormal findings of blood chemistry (04/05/24) Subjective Subjective Patient is an 78-year-old lady admitted with progressive generalized weakness and fever. She had recently been admitted for UTI treated for Enterococcus faecalis. She was found to be tachycardic on admission D-dimer came back elevated subsequent imaging studies demonstrated multiple bilateral pulmonary embolism. Admitted to a monitored bed for further management Objective Data Objective Data Vital Signs: Vital Signs Temp Pulse Resp BP Pulse Ox O2 Del Method O2 Flow Rate 98.8 F 110 H 21 H 111/66 96 Nasal Cannula 1 04/08/24 12:25 04/08/24 12:51 04/08/24 12:51 04/08/24 12:25 04/08/24 12:25 04/08/24 12:25 04/08/24 12:25 Oxygen Flow Rate (L/min) 1 Oxygen Delivery Method Nasal Cannula Weight: 63 kg Body Mass Index (BMI) 24.5 Intake & Output: Intake and Output for Last 24 Hours 04/06/24 04/07/24 04/08/24 23:59 23:59 23:59 Intake Total 1559.78 / 1559.78 710 / 1210 970 / 970 Balance 1559.78 / 1559.78 710 / 1210 970 / 970 Lab / Micro Data 04/08/24 04:35 04/08/24 04:35 Labs: Laboratory Results - last 24 hr 04/07/24 05:06: ESR 55 H 04/08/24 04:35: WBC 18.4 H, RBC 3.57 L, Hgb 11.0 L, Hct 34.2 L, MCV 95.8, MCH 30.8, MCHC 32.2, RDW Std Deviation 48.3 H, RDW Coeff of Cecilia 13.6, Plt Count 419, MPV 9.9, Immature Gran % (Auto) 1.900 H, Neut % (Auto) 79.5 H, Lymph % (Auto) 10.5 L, [place] % (Auto) 6.5, Eos % (Auto) 1.2, Baso % (Auto) 0.4, Absolute Neuts (auto) 14.6 H, Absolute Lymphs (auto) 1.92, Nucleated RBC % 0, Sodium 138, Potassium 4.1, Chloride 108 H, Carbon Dioxide 23.0, Anion Gap 7, BUN 10, Creatinine 0.62, Estim Creat Clear Calc 50.15, Est GFR (MDRD) Af Amer 119, Est GFR (MDRD) Non-Af 98, BUN/Creatinine Ratio 16.1, Glucose 109 H, Calcium 9.0 04/08/24 09:07: Procalcitonin 0.22 H Micro: Microbiology 04/07/24 15:06 Nasal Secretion MRSA (PCR) - Final 04/06/24 00:40 Mucosa - Nasopharyngeal Respiratory Panel (PCR) - Final Rhinovirus 04/05/24 15:12 Urine, Clean Catch Legionella Antigen - Final 04/05/24 15:12 Urine, Clean Catch Streptococcus pneumoniae Antigen (M - Final Radiography Diagnostic Testing: Radiology Impression Chest X-Ray 04/08/24 10:15 IMPRESSION: Blunting of both costophrenic angles with increased markings at the lung bases suggest some bibasilar atelectasis. Electronically Signed: Azam Mir MD at 12:33 EDT , Chest X-Ray 04/08/24 11:47 IMPRESSION: The tip of the right PICC line catheter is at the junction of the superior vena cava and right atrium. Blunting of both costophrenic angles more prominent on the left side with findings suggestive of bibasilar atelectasis. Electronically Signed: Azam Mir MD at 12:25 EDT , Physical Exam Narrative GENERAL: cooperative HEENT: Atraumatic; normocephalic EYES; Anicteric, Normal Conjunctiva NECK; supple, normal thyroid, RESPIRATORY: Diminished to auscultation CARDIOVASCULAR: Irregular S1-S2 GI: soft, normoactive bowel sounds, : No Renal angle tenderness; EXTREMITIES: No edema, no clubbing, MUSCULOSKELETAL: no muscle wasting NEURO: Awake; no lateralizing signs. SKIN: No Rash PSYCH; Flat affect Assessment & Plan Assessment/Plan (1) Bilateral pulmonary embolism: (2) UTI (urinary tract infection): QUALIFIERS: Urinary tract infection type: acute cystitis H ematuria presence: without hematuria Qualified Code(s): N30.00 - Acute cystitis without hematuria (3) Hypokalemia: (4) Diarrhea: QUALIFIERS: Diarrhea type: functional diarrhea Qualified Code(s): K59.1 - Functional diarrhea PLAN: Plan Patient is an 78-year-old lady admitted with progressive generalized weakness and fever. She had recently been admitted for UTI treated for Enterococcus faecalis. She was found to be tachycardic on admission D-dimer came back elevated subsequent imaging studies demonstrated multiple bilateral pulmonary embolism. Admitted to a monitored bed for further management 1. Acute pulmonary embolism ? Patient admitted to a monitored bed. 2D echo demonstrated EF of 55 to 60% with normal RV. Patient treated with therapeutic Lovenox Case was discussed with patient's son who requested for bilateral lower extremity duplex 2. Acute rhinovirus pneumonia ? Manage symptomatically 3. Leukocytosis ? Suspected to be secondary to superimposed bacterial pneumonia patient remains on broad-spectrum antibiotic therapy consult placed to ID 4. New onset A-fib ? Patient rate was as high as 120 started on Cardizem p.o. Already on systemic anticoagulation 5. Hypokalemia ? Corrected per protocol 6. Recent acute cystitis with Enterococcus faecalis ? Treated with Augmentin 7. GERD with Saravia's esophagus ? On famotidine 8. Dyslipidemia -Patient is on statin therapy, continued at home dose Time spent in the patient's overall evaluation,decision-making process, review of diagnostic data, adjustment of management, discussion with other providers, nursing nursing and ancillary staff involved in patient's care documentation, 53 Minutes Charges/Coding Visit Charges Inpatient E&M: 86551 [facility] L3
--- NOTE | 2024-04-08 13:25 | VDLE_ITS ---
Reason For Study: Pulmonary embolism RIGHT LEFT GSV is normal. GSV is normal. CFV is compressible, spontaneous, phasic, CFV is compressible, spontaneous, phasic, competent and demonstrates normal competent, and demonstrates normal augmentation. augmentation. FV is compressible, spontaneous, phasic, FV is compressible, spontaneous, phasic, competent and demonstrates normal competent and demonstrates normal augmentation. augmentation. POP V is compressible, spontaneous, phasic, POP V is compressible, spontaneous, phasic, competent and demonstrates normal competent and demonstrates normal augmentation. augmentation. T/P Trunk is compressible. T/P Trunk is compressible. PTV is compressible. Acute deep vein thrombosis is noted in the RT PerV is compressible. left T/P Trunk, PTV, PeroV and SoleusV. It is Acute deep vein thrombosis is noted in the dilated and NONCOMPRESSIBLE. right PTV, PeroV and SoleusV. It is dilated and NONCOMPRESSIBLE. Acute superficial vein thrombosis is noted in the right SSV. It is dilated and NONCOMPRESSIBLE. Procedure This is a venous duplex using B-mode, color flow and spectral Doppler. Exam performed portable in patient room. A preliminary report was called and/or faxed to [facility]. VL/Venous Duplex US - Sumit Extrem Interpretation Summary Acute deep vein thrombosis is noted in the right posterior tibial vein, peronea l vein, soleus vein. Acute deep vein thrombosis is noted in the left tibio-peroneal trunk vein, post erior tibial vein, peroneal vein, soleus vein. Ordering Physician: Yung Bell Referring Physician: Rangel Santos Performed By: Mya Krause RVT
--- NOTE | 2024-04-08 14:12 | PCM.CONS.GEN ---
Assessment & Plan Assessment/Plan (1) Viral illness: PLAN: Fever improved. Rhinovirus (+). Ucx 04/01 with enterococcus. Will check repeat cxr and procal. MRSA pcr neg. Will stop vanc, keep zosyn for now. Will follow, thank you (2) Bilateral pulmonary embolism: (3) UTI (urinary tract infection): QUALIFIERS: Urinary tract infection type: acute cystitis Hematuria presence: without hematuria Qualified Code(s): N30.00 - Acute cystitis without hematuria HPI Consult Data Date of Consult: 04/08/24 HPI Narrative Reason for Consultation: fever HPI Narrative: GREGG TEIXEIRA, is a 78 F with h/o htn, schmitz's esophagus, presented with several months of dry cough. Over previous week, developed fever, mild sputum. Came to ED, dx with uti, given augmentin, came back to ED 04/05. Admitted on augmentin after being found to have bilat PEs. Rhinovirus (+). Fever continued, so abx changed to vanc/zosyn on 04/07. Feeling better today. No congestion. 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 Some dry cough still. Full ROS performed and neg except as noted above. [facility] Medical History Post-menopausal Alcohol use History of steroid therapy Easy bruising PONV (postoperative nausea and vomiting) Non-smoker Cardiology follow-up encounter History of echocardiogram History of stress test Hypertension Hx of migraines UTI (urinary tract infection) DDD (degenerative disc disease), lumbar Spinal stenosis Chronic back pain Cystitis GERD (gastroesophageal reflux disease) Infection due to ESBL-producing Escherichia coli Essential (primary) hypertension Hyperlipidemia Home Medications ?Medication ?Instructions ?Recorded ?Last Taken ?Type ascorbic acid (vitamin C) 1,000 mg 1 cap PO QHS vitamin 04/07/22 Unknown History capsule,extended release methenamine hippurate 1 gram tablet 1 g PO QHS urinary tract health 04/07/22 Unknown History simvastatin 10 mg tablet 10 mg PO DAILY cholesterol 11/08/23 04/04/24 History sumatriptan succinate 100 mg tablet 100 mg PO Q2H PRN migraine headache 11/08/23 Unknown History beclomethasone dipropionate 80 1 inh inhalation Q12H breathing 01/31/24 Unknown Rx mcg/actuation HFA breath activated #10.6 grams aerosol esomeprazole magnesium 20 mg 20 mg PO DAILY reflux #30 caps 01/31/24 04/05/24 Rx capsule,delayed release famotidine 20 mg tablet 20 mg PO QHS reflux #60 tabs 01/31/24 04/04/24 Rx ondansetron 4 mg disintegrating 4 mg PO TID PRN nausea and 03/24/24 Unknown Rx tablet vomiting #21 tabs amoxicillin 875 mg-potassium 1 tab PO BID #14 tabs 04/02/24 04/05/24 Rx clavulanate 125 mg tablet Allergy/AdvReac Type Severity Reaction Status Date / Time No Known Allergies Allergy Verified 04/05/24 12:56 Family History Mother Heart disease Father Heart disease Brother Heart disease CAD (coronary artery disease) Surgical History History of back surgery S/P subdural hematoma evacuation History of appendectomy History of laparoscopic cholecystectomy History of hysterectomy Social History household members: spouse housing: house Smoking Status: Never smoker Physical Exam Const alert, oriented x3 and no apparent distress General Appearance: cooperative HEENT normocephalic Eyes PERRL and EOMs intact bilaterally Neck supple and No nodes Resp clear to auscultation bilaterally Auscultation: diminished lung sounds Cardio Negative for regular rate or regular rhythm GI soft to palpation, non-tender and non-distended Extremity General Extremity: Negative for edema Skin no rashes or lesions noted Neuro CN's II-XII intact bilaterally Lab / Micro Data Attestation: I reviewed the patient's lab results. 04/08/24 04:35 04/08/24 04:35 Labs: Laboratory Results - last 24 hr 04/08/24 04:35: WBC 18.4 H, RBC 3.57 L, Hgb 11.0 L, Hct 34.2 L, MCV 95.8, MCH 30.8, MCHC 32.2, RDW Std Deviation 48.3 H, RDW Coeff of Cecilia 13.6, Plt Count 419, MPV 9.9, Immature Gran % (Auto) 1.900 H, Neut % (Auto) 79.5 H, Lymph % (Auto) 10.5 L, [place] % (Auto) 6.5, Eos % (Auto) 1.2, Baso % (Auto) 0.4, Absolute Neuts (auto) 14.6 H, Absolute Lymphs (auto) 1.92, Nucleated RBC % 0, Sodium 138, Potassium 4.1, Chloride 108 H, Carbon Dioxide 23.0, Anion Gap 7, BUN 10, Creatinine 0.62, Estim Creat Clear Calc 50.15, Est GFR (MDRD) Af Amer 119, Est GFR (MDRD) Non-Af 98, BUN/Creatinine Ratio 16.1, Glucose 109 H, Calcium 9.0 04/08/24 09:07: Procalcitonin 0.22 H Micro: Microbiology 04/07/24 15:06 Nasal Secretion MRSA (PCR) - Final Imaging Radiology Impression Chest X-Ray 04/08/24 10:15 IMPRESSION: Blunting of both costophrenic angles with increased markings at the lung bases suggest some bibasilar atelectasis. Electronically Signed: Azam Mir MD at 12:33 EDT , Chest X-Ray 04/08/24 11:47 IMPRESSION: The tip of the right PICC line catheter is at the junction of the superior vena cava and right atrium. Blunting of both costophrenic angles more prominent on the left side with findings suggestive of bibasilar atelectasis. Electronically Signed: Azam Mir MD at 12:25 EDT ,
--- NOTE | 2024-04-08 14:47 | NURSING ---
report given to Lucinda LANDSCAPE ARTIST as she will resume care at this time
--- NOTE | 2024-04-08 18:44 | CON.PCM.CA_ITS ---
Assessment & Plan Assessment/Plan (1) Bilateral pulmonary embolism: PLAN: Patient presents with mild shortness of breath and is noted to have bilateral pulmonary embolism as well as evidence of lower extremity DVT. An echocardiogram that had been performed demonstrated preserved left ventricular systolic function normal right ventricular size and normal pulmonary pressures. She appears to be quite comfortable at this particular time. Reviewing her EKGs I do not see any evidence of atrial fibrillation. She does have sinus tachycardia with frequent premature atrial complexes. She is on anticoagulation at this time regardless. * I would recommend that we obtain a troponin as well as a natruretic peptide level. * I explained the fact that her prognosis is good based on the above to her as well as her son who is a physician. * * Thank you for allowing me to participate in the care of your patient. Please don't hesitate to call if any issues arise. HPI Consult Data Date of Consult: 04/08/24 HPI Narrative HPI Narrative: GREGG TEIXEIRA, is a 78 F who presents with a urinary tract infection minimal shortness of breath and had a fever. She was noted to be apparently going in and out of a cardiac dysrhythmia thought to be atrial fibrillation and cardiology was consulted. She also has been diagnosed during this admission with bilateral pulmonary emboli. An echocardiogram which was performed during this admission demonstrated ejection fraction of 55 to 60% normal right ventricular size and function and no evidence of right ventricular strain on EKG or echocardiogram. She has had no dizziness or diaphoresis no near syncope or syncope and no chest pain. She appears to be quite stable at this time and chatting with her son. [facility] Medical History Post-menopausal Alcohol use History of steroid therapy Easy bruising PONV (postoperative nausea and vomiting) Non-smoker Cardiology follow-up encounter History of echocardiogram History of stress test Hypertension Hx of migraines UTI (urinary tract infection) DDD (degenerative disc disease), lumbar Spinal stenosis Chronic back pain Cystitis GERD (gastroesophageal reflux disease) Infection due to ESBL-producing Escherichia coli Essential (primary) hypertension Hyperlipidemia Home Medications ?Medication ?Instructions ?Recorded ?Last Taken ?Type ascorbic acid (vitamin C) 1,000 mg 1 cap PO QHS vitamin 04/07/22 Unknown History capsule,extended release methenamine hippurate 1 gram tablet 1 g PO QHS urinary tract health 04/07/22 Unknown History simvastatin 10 mg tablet 10 mg PO DAILY cholesterol 11/08/23 04/04/24 History sumatriptan succinate 100 mg tablet 100 mg PO Q2H PRN migraine headache 11/08/23 Unknown History beclomethasone dipropionate 80 1 inh inhalation Q12H breathing 01/31/24 Unknown Rx mcg/actuation HFA breath activated #10.6 grams aerosol esomeprazole magnesium 20 mg 20 mg PO DAILY reflux #30 caps 01/31/24 04/05/24 Rx capsule,delayed release famotidine 20 mg tablet 20 mg PO QHS reflux #60 tabs 01/31/24 04/04/24 Rx ondansetron 4 mg disintegrating 4 mg PO TID PRN nausea and 03/24/24 Unknown Rx tablet vomiting #21 tabs amoxicillin 875 mg-potassium 1 tab PO BID #14 tabs 04/02/24 04/05/24 Rx clavulanate 125 mg tablet Allergy/AdvReac Type Severity Reaction Status Date / Time No Known Allergies Allergy Verified 04/05/24 12:56 Family History Mother Heart disease Father Heart disease Brother Heart disease CAD (coronary artery disease) Surgical History History of back surgery S/P subdural hematoma evacuation History of appendectomy History of laparoscopic cholecystectomy History of hysterectomy Social History household members: spouse housing: house Smoking Status: Never smoker ROS Constitutional Constitutional: Denies fever(s) or weight loss Eyes Eyes: Reports systems reviewed and no addt'l complaints, except as documented ENT HEENT: Reports systems reviewed and no addt'l complaints, except as documented Cardiovascular Cardiovascular: Denies chest pain at rest, chest pain with activity, dyspnea at rest, dyspnea on exertion, edema, palpitations or paroxysmal nocturnal dyspnea Respiratory/Chest Respiratory/Chest: Denies dyspnea on exertion, productive cough, shortness of breath at rest or shortness of breath with exertion Gastrointestinal Gastrointestinal: Denies change in bowel habits, nausea, vomiting or weight changes Genitourinary Genitourinary: Denies difficulty urinating Musculoskeletal Musculoskeletal: Denies joint stiffness or muscle weakness Integumentary Integumentary: Denies lesions Neurologic Neurologic: Denies dizziness or syncope Psychiatric Psychiatric: Denies anxiety Endocrine Endocrinology: Denies excessive sweating or fatigue Hematologic/Lymphatic Hematologic/Lymphatic: Denies anemia Allergic/Immunologic Allergic/Immunologic: Denies seasonal rhinorrhea Physical Exam Const alert, oriented x3 and no apparent distress General Appearance: cooperative HEENT hearing grossly normal bilaterally Head and Scalp: atraumatic Eyes EOMs intact bilaterally Neck General: normal visual inspection Chest inspection of chest normal and palpation of chest normal Resp normal respiratory effort Auscultation: clear to auscultation bilaterally Cardio regular rate, regular rhythm, S1 normal heart sound and S2 normal heart sound Jugular Venous Distention: JVD GI normal to inspection, nondistended, normoactive bowel sounds Extremity normal capillary refill and no pedal edema Peripheral Pulses: Yes pulses 2+ throughout and femoral pulses present Skin no rashes or lesions noted Neuro oriented x3 and CN's II-XII intact bilaterally Psych Appearance: grossly normal and appropriate Risk Stratification Risk Stratification Applicable: No Objective Data Vital Signs: Vital Signs Temp Pulse Resp BP Pulse Ox O2 Del Method O2 Flow Rate 99.1 F 122 H 20 H 120/79 96 Nasal Cannula 1 04/08/24 17:34 04/08/24 17:34 04/08/24 17:34 04/08/24 17:34 04/08/24 17:34 04/08/24 17:34 04/08/24 17:34 Oxygen Flow Rate (L/min) 1 Oxygen Delivery Method Nasal Cannula Weight: 138 lb 14.259 oz Body Mass Index (BMI) 24.5 Intake & Output: Intake and Output for Last 24 Hours 04/06/24 04/07/24 04/08/24 23:59 23:59 23:59 Intake Total 1559.78 / 1559.78 710 / 1210 1240 / 1240 Balance 1559.78 / 1559.78 710 / 1210 1240 / 1240 Lab / Micro Data 04/08/24 04:35 04/08/24 04:35 Labs: Laboratory Results - last 24 hr 04/08/24 04:35: WBC 18.4 H, RBC 3.57 L, Hgb 11.0 L, Hct 34.2 L, MCV 95.8, MCH 30.8, MCHC 32.2, RDW Std Deviation 48.3 H, RDW Coeff of Cecilia 13.6, Plt Count 419, MPV 9.9, Immature Gran % (Auto) 1.900 H, Neut % (Auto) 79.5 H, Lymph % (Auto) 10.5 L, [place] % (Auto) 6.5, Eos % (Auto) 1.2, Baso % (Auto) 0.4, Absolute Neuts (auto) 14.6 H, Absolute Lymphs (auto) 1.92, Nucleated RBC % 0, Sodium 138, Potassium 4.1, Chloride 108 H, Carbon Dioxide 23.0, Anion Gap 7, BUN 10, Creatinine 0.62, Estim Creat Clear Calc 50.15, Est GFR (MDRD) Af Amer 119, Est GFR (MDRD) Non-Af 98, BUN/Creatinine Ratio 16.1, Glucose 109 H, Calcium 9.0 04/08/24 09:07: Procalcitonin 0.22 H Micro: Microbiology 04/07/24 15:06 Nasal Secretion MRSA (PCR) - Final Cardiology Labs/Tests 04/08/24 04:35: WBC 18.4 H, RBC 3.57 L, Hgb 11.0 L, Hct 34.2 L, MCV 95.8, MCH 30.8, MCHC 32.2, Plt Count 419, MPV 9.9, Immature Gran % (Auto) 1.900 H, Neut % (Auto) 79.5 H, Lymph % (Auto) 10.5 L, [place] % (Auto) 6.5, Eos % (Auto) 1.2, Baso % (Auto) 0.4, Absolute Neuts (auto) 14.6 H, Nucleated RBC % 0, Sodium 138, Potassium 4.1, Chloride 108 H, Carbon Dioxide 23.0, Anion Gap 7, BUN 10, Creatinine 0.62, Est GFR (MDRD) Af Amer 119, Est GFR (MDRD) Non-Af 98, BUN/Creatinine Ratio 16.1, Glucose 109 H, Calcium 9.0 Rhythm: EKG: ECHO: Stress Test: Cardiac Cath: PCI: CT Surgery: Holter monitor: EPS: PPM: CXR: Chest CT Scan: Radiography Diagnostic Testing: Radiology Impression Chest X-Ray 04/08/24 10:15 IMPRESSION: Blunting of both costophrenic angles with increased markings at the lung bases suggest some bibasilar atelectasis. Electronically Signed: Azam Mir MD at 12:33 EDT , Chest X-Ray 04/08/24 11:47 IMPRESSION: The tip of the right PICC line catheter is at the junction of the superior vena cava and right atrium. Blunting of both costophrenic angles more prominent on the left side with findings suggestive of bibasilar atelectasis. Electronically Signed: Azam Mir MD at 12:25 EDT , Venous Doppler Study 04/08/24 13:25 Interpretation Summary Acute deep vein thrombosis is noted in the right posterior tibial vein, peroneal vein, soleus vein. Acute deep vein thrombosis is noted in the left tibio-peroneal trunk vein, posterior tibial vein, peroneal vein, soleus vein. Ordering Physician: Yung Bell Referring Physician: Rangel Santos Performed By: Mya Krause RVT
[2024-04-08 20:03] LABS: Troponin-I HS 27 pg/mL (3.0-54.0)
[2024-04-08] MEDS: Atorvastatin Calcium 10 MG Tablet 5 MG PO (21:56)
[2024-04-08] MEDS: Ascorbic Acid 500 MG Tablet 1000 MG PO (21:56)
[2024-04-08] MEDS: Methenamine Hippurate 1 GM Tablet PO (21:56)
[2024-04-08] MEDS: Famotidine 20 MG Tablet PO (21:56)
[2024-04-08] MEDS: Acetaminophen 325 MG Tablet 650 MG PO (22:53)
[2024-04-09] VITALS (7 sets, daily range): BP systolic 107–126; BP diastolic 60–77; PULSE 88–116; RESP 16–20; TEMP 36.7–36.9; O2SAT 87–98
[2024-04-09 05:57] LABS: Absolute Lymphocyte Count 1.35 X10^3/uL (0.83-4.51); Absolute Neutrophil Count 9.8 X10^3/uL (2.0-7.7); Basophil# 0.06 X10^3/uL; Basophil% 0.5 % (0-1); Eosinophil# 0.31 X10^3/uL; Eosinophils% 2.5 % (0-5); Hematocrit 31.8 % (37-47); Hemoglobin 10.1 g/dL (12.0-15.0); Lymphocyte # 1.35 X10^3/ul (0.83-4.51); Lymphocyte % 10.7 % (19-41); Mean Corp Hgb Conc 31.8 g/dL (32-36); Mean Corpuscular Hgb 30.4 pg (27.0-32.0); Mean Corpuscular Volume 95.8 fL (81-99); Mean Platelet Vol. 9.4 fl (6.2-12.0); Monocyte# 0.73 X10^3/uL; Monocyte% 5.8 % (0-10); NRBC Flagged by Analyzer 0 % (0-5); Neutrophil # 9.83 X10^3/uL (2.7-7.7); Platelet Count 374 K/mm3 (150-450); RBC Distribution Width CV 13.3 % (11.6-14.6); RBC Distribution Width SD 47.4 fl (35.1-43.9); Red Blood Count 3.32 M/mm3 (4.2-5.4); White Blood Count 12.6 K/mm3 (4.4-11.0)
[2024-04-09] MEDS: Piperacil/Tazobactam 3.375 GM in 0.9% Normal Saline (50mL MB+) 50 ML IV (06:07)
[2024-04-09 06:39] LABS: Anion Gap 6 (5-15); BUN 10 mg/dL (7-18); BUN/Creat Ratio 23.9 RATIO (10-20); Calcium,Total 8.2 mg/dL (8.5-10.1); Chloride 113 mmol/L (98-107); Creatinine, Serum 0.42 mg/dL (0.55-1.02); EST Glomerular Filtration Rate 155 mL/min (>60); Est Glom Filt Rate - Afr Amer 188 mL/min (>60); Estimated Creatinine Clearance 50.15 ml/min; Glucose 104 mg/dL (74-106); Phosphorus 3.4 mg/dL (2.5-4.9); Potassium 3.2 mmol/L (3.5-5.1); Sodium Level 142 mmol/L (136-145); Thyroid Stim Hormone (TSH) 0.94 uIU/mL (0.358-3.74)
[2024-04-09] MEDS: Ipratropium/Albuterol Sulfate 3 ML AMPUL.NEB INHALATION ×2 (06:44→12:57)
--- NOTE | 2024-04-09 06:46 | CPS ---
unable to give pulm, none unavailable on unit
--- NOTE | 2024-04-09 07:41 | PN.CARD_ITS ---
Subjective Subjective Patient seen and evaluated. Appears to be doing well. Objective Data Vital Signs: Vital Signs Temp Pulse Resp BP Pulse Ox O2 Del Method O2 Flow Rate 98.0 F 94 20 H 107/69 95 Nasal Cannula 2 04/09/24 03:45 04/09/24 06:45 04/09/24 06:45 04/09/24 03:45 04/09/24 06:45 04/09/24 06:45 04/09/24 06:45 Oxygen Flow Rate (L/min) 2 Oxygen Delivery Method Nasal Cannula Weight: 138 lb 14.259 oz Body Mass Index (BMI) 24.5 Intake & Output: Intake and Output for Last 24 Hours 04/07/24 04/08/24 04/09/24 23:59 23:59 23:59 Intake Total 710 / 1210 1240 / 1240 50 / 50 Balance 710 / 1210 1240 / 1240 50 / 50 Lab / Micro Data 04/09/24 05:42 04/09/24 05:42 Labs: Laboratory Results - last 24 hr 04/08/24 09:07: Procalcitonin 0.22 H 04/08/24 19:19: Troponin I High Sens 27, B-Natriuretic Peptide 41.0 04/09/24 05:42: WBC 12.6 H, RBC 3.32 L, Hgb 10.1 L, Hct 31.8 L, MCV 95.8, MCH 30.4, MCHC 31.8 L, RDW Std Deviation 47.4 H, RDW Coeff of Cecilia 13.3, Plt Count 374, MPV 9.4, Immature Gran % (Auto) 2.500 H, Neut % (Auto) 78.0 H, Lymph % (Auto) 10.7 L, [place] % (Auto) 5.8, Eos % (Auto) 2.5, Baso % (Auto) 0.5, Absolute Neuts (auto) 9.8 H, Absolute Lymphs (auto) 1.35, Nucleated RBC % 0, Sodium 142, Potassium 3.2 L, Chloride 113 H, Carbon Dioxide 23.0, Anion Gap 6, BUN 10, C reatinine 0.42 L, Estim Creat Clear Calc 50.15, Est GFR (MDRD) Af Amer 188, Est GFR (MDRD) Non-Af 155, BUN/Creatinine Ratio 23.9 H, Glucose 104, Calcium 8.2 L, Phosphorus 3.4, Magnesium 2.0, TSH 0.94 Cardiology Labs/Tests 04/08/24 19:19: B-Natriuretic Peptide 41.0 04/09/24 05:42: WBC 12.6 H, RBC 3.32 L, Hgb 10.1 L, Hct 31.8 L, MCV 95.8, MCH 30.4, MCHC 31.8 L, Plt Count 374, MPV 9.4, Immature Gran % (Auto) 2.500 H, Neut % (Auto) 78.0 H, Lymph % (Auto) 10.7 L, [place] % (Auto) 5.8, Eos % (Auto) 2.5, Baso % (Auto) 0.5, Absolute Neuts (auto) 9.8 H, Nucleated RBC % 0, Sodium 142, P otassium 3.2 L, Chloride 113 H, Carbon Dioxide 23.0, Anion Gap 6, BUN 10, C reatinine 0.42 L, Est GFR (MDRD) Af Amer 188, Est GFR (MDRD) Non-Af 155, B UN/Creatinine Ratio 23.9 H, Glucose 104, Calcium 8.2 L, Phosphorus 3.4, Magnesium 2.0 Rhythm: EKG: ECHO: Stress Test: Cardiac Cath: PCI: CT Surgery: Holter monitor: EPS: PPM: CXR: Chest CT Scan: Radiography Diagnostic Testing: Radiology Impression Chest X-Ray 04/08/24 10:15 IMPRESSION: Blunting of both costophrenic angles with increased markings at the lung bases suggest some bibasilar atelectasis. Electronically Signed: Azam Mir MD at 12:33 EDT , Chest X-Ray 04/08/24 11:47 IMPRESSION: The tip of the right PICC line catheter is at the junction of the superior vena cava and right atrium. Blunting of both costophrenic angles more prominent on the left side with findings suggestive of bibasilar atelectasis. Electronically Signed: Azam Mir MD at 12:25 EDT , Venous Doppler Study 04/08/24 13:25 Interpretation Summary Acute deep vein thrombosis is noted in the right posterior tibial vein, peroneal vein, soleus vein. Acute deep vein thrombosis is noted in the left tibio-peroneal trunk vein, posterior tibial vein, peroneal vein, soleus vein. Ordering Physician: Yung Bell Referring Physician: Rangel Santos Performed By: Mya Krause Noelle Physical Exam Const alert, oriented x3 and no apparent distress General Appearance: cooperative HEENT hearing grossly normal bilaterally Head and Scalp: atraumatic Eyes EOMs intact bilaterally Neck General: normal visual inspection Chest inspection of chest normal and palpation of chest normal Resp normal respiratory effort Auscultation: clear to auscultation bilaterally Cardio regular rate, regular rhythm, S1 normal heart sound and S2 normal heart sound Jugular Venous Distention: JVD GI normal to inspection, nondistended, normoactive bowel sounds Extremity normal capillary refill and no pedal edema Peripheral Pulses: Yes pulses 2+ throughout and femoral pulses present Skin no rashes or lesions noted Neuro oriented x3 and CN's II-XII intact bilaterally Psych Appearance: grossly normal and appropriate Assessment & Plan Assessment/Plan (1) Bilateral pulmonary embolism: PLAN: Patient presents with mild shortness of breath and is noted to have bilateral pulmonary embolism as well as evidence of lower extremity DVT. An echocardiogram that had been performed demonstrated preserved left ventricular systolic function normal right ventricular size and normal pulmonary pressures. She appears to be quite comfortable at this particular time. Reviewing her EKGs I do not see any evidence of atrial fibrillation. She does have sinus tachycardia with frequent premature atrial complexes. She is on anticoagulation at this time regardless. * Troponin is noted to be normal and natruretic peptide is normal. The above suggests overall good prognosis. * I explained the fact that her prognosis is good based on the above to her as well as her son who is a physician. * Can be discharged for outpatient management. * Thank you for allowing me to participate in the care of your patient. Please don't hesitate to call if any issues arise.
[2024-04-09] MEDS: Acetaminophen 325 MG Tablet 650 MG PO (08:07)
[2024-04-09] MEDS: guaiFENesin/D-Methorphan TAB.SR.12H 2 TABLET PO (09:50)
[2024-04-09] MEDS: Enoxaparin 60 MG/0.6 ML Syringe SC (09:50)
[2024-04-09] MEDS: Pantoprazole Sodium 20 MG Tablet PO (09:50)
[2024-04-09] MEDS: Lactobacillis Acidophilus 1 CAP PO (09:50)
--- NOTE | 2024-04-09 10:28 | PCM.PN.HOSP ---
Reason for Visit Reason for Visit: Diagnoses Viral infection, unspecified (04/05/24) Bandemia (04/05/24) Hypokalemia (04/05/24) Other disorders of electrolyte and fluid balance, not elsewhere classified (04/05/24) Other pulmonary embolism without acute cor pulmonale (04/05/24) Functional diarrhea (04/05/24) Acute cystitis without hematuria (04/05/24) Hypoxemia (04/05/24) Nausea (04/05/24) Other specified abnormal findings of blood chemistry (04/05/24) Subjective Subjective Patient chest x-ray obtained the day prior demonstrated blunting of both costophrenic angles prominence more on the left side suggestive of bibasilar atelectasis. Venous duplex demonstrated Acute deep vein thrombosis is noted in the right posterior tibial vein, peroneal vein, soleus vein. Acute deep vein thrombosis is noted in the left tibio-peroneal trunk vein, posterior tibial vein, peroneal vein, soleus vein. Patient went into tachycardia EKG reviewed sinus rhythm with multiple PACs. Patient still requiring oxygen currently 2 L at rest Objective Data Objective Data Vital Signs: Vital Signs Temp Pulse Resp BP Pulse Ox O2 Del Method O2 Flow Rate 98.4 F 109 H 18 117/74 96 Nasal Cannula 2 04/09/24 08:09 04/09/24 08:09 04/09/24 08:09 04/09/24 08:09 04/09/24 08:09 04/09/24 08:09 04/09/24 08:09 Oxygen Flow Rate (L/min) 2 Oxygen Delivery Method Nasal Cannula Weight: 63 kg Body Mass Index (BMI) 24.5 Intake & Output: Intake and Output for Last 24 Hours 04/07/24 04/08/24 04/09/24 23:59 23:59 23:59 Intake Total 710 / 1210 1240 / 1240 50 / 50 Balance 710 / 1210 1240 / 1240 50 / 50 Lab / Micro Data 04/09/24 05:42 04/09/24 05:42 Labs: Laboratory Results - last 24 hr 04/08/24 19:19: Troponin I High Sens 27, B-Natriuretic Peptide 41.0 04/09/24 05:42: WBC 12.6 H, RBC 3.32 L, Hgb 10.1 L, Hct 31.8 L, MCV 95.8, MCH 30.4, MCHC 31.8 L, RDW Std Deviation 47.4 H, RDW Coeff of Cecilia 13.3, Plt Count 374, MPV 9.4, Immature Gran % (Auto) 2.500 H, Neut % (Auto) 78.0 H, Lymph % (Auto) 10.7 L, [place] % (Auto) 5.8, Eos % (Auto) 2.5, Baso % (Auto) 0.5, Absolute Neuts (auto) 9.8 H, Absolute Lymphs (auto) 1.35, Nucleated RBC % 0, Sodium 142, Potassium 3.2 L, Chloride 113 H, Carbon Dioxide 23.0, Anion Gap 6, BUN 10, Creatinine 0.42 L, Estim Creat Clear Calc 50.15, Est GFR (MDRD) Af Amer 188, Est GFR (MDRD) Non-Af 155, BUN/Creatinine Ratio 23.9 H, Glucose 104, Calcium 8.2 L, Phosphorus 3.4, Magnesium 2.0, TSH 0.94 Micro: Microbiology 04/07/24 15:06 Nasal Secretion MRSA (PCR) - Final 04/06/24 00:40 Mucosa - Nasopharyngeal Respiratory Panel (PCR) - Final Rhinovirus 04/05/24 15:12 Urine, Clean Catch Legionella Antigen - Final 04/05/24 15:12 Urine, Clean Catch Streptococcus pneumoniae Antigen (M - Final Radiography Diagnostic Testing: Radiology Impression Chest X-Ray 04/08/24 10:15 IMPRESSION: Blunting of both costophrenic angles with increased markings at the lung bases suggest some bibasilar atelectasis. Electronically Signed: Azam Mir MD at 12:33 EDT , Chest X-Ray 04/08/24 11:47 IMPRESSION: The tip of the right PICC line catheter is at the junction of the superior vena cava and right atrium. Blunting of both costophrenic angles more prominent on the left side with findings suggestive of bibasilar atelectasis. Electronically Signed: Azam Mir MD at 12:25 EDT , Venous Doppler Study 04/08/24 13:25 Interpretation Summary Acute deep vein thrombosis is noted in the right posterior tibial vein, peroneal vein, soleus vein. Acute deep vein thrombosis is noted in the left tibio-peroneal trunk vein, posterior tibial vein, peroneal vein, soleus vein. Ordering Physician: Yung Bell Referring Physician: Rangel Santos Performed By: Mya Krause RVT Physical Exam Narrative GENERAL: cooperative HEENT: Atraumatic; normocephalic EYES; Anicteric, Normal Conjunctiva NECK; supple, normal thyroid, RESPIRATORY: Diminished to auscultation CARDIOVASCULAR: Irregular S1-S2 GI: soft, normoactive bowel sounds, : No Renal angle tenderness; EXTREMITIES: No edema, no clubbing, MUSCULOSKELETAL: no muscle wasting NEURO: Awake; no lateralizing signs. SKIN: No Rash PSYCH; Flat affect Assessment & Plan Assessment/Plan (1) Bilateral pulmonary embolism: (2) UTI (urinary tract infection): QUALIFIERS: Hematuria presence: without hematuria Urinary tract infection type: acute cystitis Qualified Code(s): N30.00 - Acute cystitis without hematuria (3) Hypokalemia: (4) Diarrhea: QUALIFIERS: Diarrhea type: functional diarrhea Qualified Code(s): K59.1 - Functional diarrhea PLAN: Plan Patient is an 78-year-old lady admitted with progressive generalized weakness and fever. She had recently been admitted for UTI treated for Enterococcus faecalis. She was found to be tachycardic on admission D-dimer came back elevated subsequent imaging studies demonstrated multiple bilateral pulmonary embolism. Admitted to a monitored bed for further management 1. Acute pulmonary embolism ? Patient admitted to a monitored bed. 2D echo demonstrated EF of 55 to 60% with normal RV. Patient treated with therapeutic Lovenox Case was discussed with patient's son who requested for bilateral lower extremity duplex ? 04/09/2028. Venous duplex demonstrated Acute deep vein thrombosis is noted in the right posterior tibial vein, peroneal vein, soleus vein. Acute deep vein thrombosis is noted in the left tibio-peroneal trunk vein, posterior tibial vein, peroneal vein, soleus vein. Patient still requiring oxygen currently 2 L at rest. Plan is for patient to be assessed for home oxygen 2. Acute rhinovirus pneumonia ? Manage symptomatically -04/09/2020 chest x-ray obtained the day prior demonstrated blunting of both costophrenic angles prominence more on the left side suggestive of bibasilar atelectasis. Patient still requiring oxygen currently 2 L at rest 3. Leukocytosis ? Suspected to be secondary to superimposed bacterial pneumonia patient remains on broad-spectrum antibiotic therapy consult placed to ID ? Patient WBC count trending down 4. Tachycardia ? EKG demonstrated sinus tachycardia with PACs. 5. Hypokalemia ? Corrected per protocol 6. Recent acute cystitis with Enterococcus faecalis ? Treated with Augmentin 7. GERD with Saravia's esophagus ? On famotidine 8. Dyslipidemia -Patient is on statin therapy, continued at home dose Time spent in the patient's overall evaluation,decision-making process, review of diagnostic data, adjustment of management, discussion with other providers, nursing nursing and ancillary staff involved in patient's care documentation, 40 Minutes Charges/Coding Visit Charges Inpatient E&M: 86408 [facility] Hosp L2
[2024-04-09] MEDS: Potassium Chloride Oral Tablet 20 MEQ 40 MEQ PO (10:59)
--- NOTE | 2024-04-09 13:31 | PCM.PN.ID ---
Physical Exam Narrative No fever, feeling much better, cough improved. Const alert and no apparent distress General Appearance: cooperative Resp Auscultation: diminished lung sounds Cardio Rate: tachycardic GI soft to palpation, non-tender and non-distended Skin no rashes or lesions noted ID ID: Route of nutrition/ use of supplements: [] Nutritional Intake: [] IV Site: [] Pederson Catheter: [] Assessment & Plan Assessment/Plan (1) Viral illness: PLAN: Fever resolved. Rhinovirus (+). Ucx 04/01 with enterococcus, treated with augmentin. Procal 0.22. MRSA pcr neg. Will stop abx today. Will follow (2) Bilateral pulmonary embolism: (3) UTI (urinary tract infection): QUALIFIERS: Urinary tract infection type: acute cystitis Hematuria presence: without hematuria Qualified Code(s): N30.00 - Acute cystitis without hematuria
--- NOTE | 2024-04-09 14:30 | DS.PCM_ITS ---
Providers Date of Admission: 04/05/24 Date of Discharge: 04/09/24 Primary Care Physician: Dr. Rangel Santos MD Consultations 04/07/24 10:58 Consult: Infectious Disease Routine Consulting Provider: Don Gibson Reason for Consult: High fever, Rhino virus, antibiotics broadened to vanco and zosyn EMERGENT Consult: No Notified: Yes Date Notified: 04/07/24 Time Notified: 10:58 Method of Notification: Text 04/08/24 14:45 Consult: Cardiology Routine Consulting Provider: Mark Leos Reason for Consult: New Afib, +venous duplex EMERGENT Consult: No Notified: Yes Date Notified: 04/08/24 Time Notified: 14:52 Method of Notification: Text Comments:: Family request Reason For Visit: BILATERAL PULMONARY EMBOLI Diagnosis Discharge Diagnosis (1) Viral illness: Status: Acute Code(s): B34.9 - Viral infection, unspecified (2) Bilateral pulmonary embolism: Status: Acute Code(s): I26.99 - Other pulmonary embolism without acute cor pulmonale (3) UTI (urinary tract infection): Status: Acute Code(s): N39.0 - Urinary tract infection, site not specified Qualifiers: Urinary tract infection type: acute cystitis Hematuria presence: w ithout hematuria Qualified Code(s): N30.00 - Acute cystitis without hematuria Plan Patient is an 78-year-old lady admitted with progressive generalized weakness and fever. She had recently been admitted for UTI treated for Enterococcus faecalis. She was found to be tachycardic on admission D-dimer came back elevated subsequent imaging studies demonstrated multiple bilateral pulmonary embolism. Admitted to a monitored bed for further management 1. Acute pulmonary embolism ? Patient admitted to a monitored bed. 2D echo demonstrated EF of 55 to 60% with normal RV. Patient treated with therapeutic Lovenox Case was discussed with patient's son who requested for bilateral lower extremity duplex ? 04/09/2028. Venous duplex demonstrated Acute deep vein thrombosis is noted in the right posterior tibial vein, peroneal vein, soleus vein. Acute deep vein thrombosis is noted in the left tibio-peroneal trunk vein, posterior tibial vein, peroneal vein, soleus vein. Patient still requiring oxygen currently 2 L at rest. Plan is for patient to be assessed for home oxygen ? I have reviewed the oxygen testing, and this patient qualifies for the home equipment and portability. The patient is mobile in the home and the community. 2. Acute rhinovirus pneumonia ? Manage symptomatically -04/09/2020 chest x-ray obtained the day prior demonstrated blunting of both costophrenic angles prominence more on the left side suggestive of bibasilar atelectasis. Patient still requiring oxygen currently 2 L at rest 3. Leukocytosis ? Suspected to be secondary to superimposed bacterial pneumonia patient remains on broad-spectrum antibiotic therapy consult placed to ID ? Patient WBC count trending down 4. Tachycardia ? EKG demonstrated sinus tachycardia with PACs. 5. Hypokalemia ? Corrected per protocol 6. Recent acute cystitis with Enterococcus faecalis ? Treated with Augmentin 7. GERD with Saravia's esophagus ? On famotidine 8. Dyslipidemia -Patient is on statin therapy, continued at home dose Time spent in the patient's overall evaluation,decision-making process, review of diagnostic data, adjustment of management, discussion with other providers, nursing nursing and ancillary staff involved in patient's care documentation, 40 Minutes Medications at Discharge Home Medications ascorbic acid (vitamin C) 1,000 mg capsule,extended release 1 cap PO QHS vitamin 04/07/22 methenamine hippurate 1 gram tablet 1 g PO QHS urinary tract health 04/07/22 simvastatin 10 mg tablet 10 mg PO DAILY cholesterol 11/08/23 sumatriptan succinate 100 mg tablet 100 mg PO Q2H PRN migraine headache 11/08/23 beclomethasone dipropionate 80 mcg/actuation HFA breath activated aerosol 1 inh inhalation Q12H breathing #10.6 grams 01/31/24 esomeprazole magnesium 20 mg capsule,delayed release 20 mg PO DAILY reflux #30 caps 01/31/24 famotidine 20 mg tablet 20 mg PO QHS reflux #60 tabs 01/31/24 ondansetron 4 mg disintegrating tablet 4 mg PO TID PRN nausea and vomiting #21 tabs 03/24/24 apixaban 5 mg tablet (Eliquis) 5 mg PO BID #70 tabs 04/09/24 Physical Exam Narrative GENERAL: cooperative HEENT: Atraumatic; normocephalic EYES; Anicteric, Normal Conjunctiva NECK; supple, normal thyroid, RESPIRATORY: Diminished to auscultation CARDIOVASCULAR: Regular S1 S2, GI: soft, normoactive bowel sounds, : No Renal angle tenderness; EXTREMITIES: No edema, no clubbing, MUSCULOSKELETAL: no muscle wasting NEURO: Awake; no lateralizing signs. SKIN: No Rash PSYCH; Flat affect Weight / BMI Weight Weight: 63 kg Body Mass Index (BMI) 24.5 ABG / Lab / Microbiology Data 04/09/24 05:42 04/09/24 05:42 Laboratory: Laboratory Results - last 24 hr 04/08/24 19:19: Troponin I High Sens 27, B-Natriuretic Peptide 41.0 04/09/24 05:42: WBC 12.6 H, RBC 3.32 L, Hgb 10.1 L, Hct 31.8 L, MCV 95.8, MCH 30.4, MCHC 31.8 L, RDW Std Deviation 47.4 H, RDW Coeff of Cecilia 13.3, Plt Count 374, MPV 9.4, Immature Gran % (Auto) 2.500 H, Neut % (Auto) 78.0 H, Lymph % (Auto) 10.7 L, [place] % (Auto) 5.8, Eos % (Auto) 2.5, Baso % (Auto) 0.5, Absolute Neuts (auto) 9.8 H, Absolute Lymphs (auto) 1.35, Nucleated RBC % 0, Sodium 142, Potassium 3.2 L, Chloride 113 H, Carbon Dioxide 23.0, Anion Gap 6, BUN 10, C reatinine 0.42 L, Estim Creat Clear Calc 50.15, Est GFR (MDRD) Af Amer 188, Est GFR (MDRD) Non-Af 155, BUN/Creatinine Ratio 23.9 H, Glucose 104, Calcium 8.2 L, Phosphorus 3.4, Magnesium 2.0, TSH 0.94 Microbiology: Microbiology 04/07/24 10:10 Blood Culture (Wb) - Anticubital Left Blood Culture - Preliminary No growth in 48 hours. 04/07/24 10:13 Blood Culture (Wb) - Anticubital Right Blood Culture - Preliminary No growth in 48 hours. 04/07/24 15:06 Nasal Secretion MRSA (PCR) - Final 04/06/24 00:40 Mucosa - Nasopharyngeal Respiratory Panel (PCR) - Final Rhinovirus 04/05/24 15:12 Urine, Clean Catch Legionella Antigen - Final 04/05/24 15:12 Urine, Clean Catch Streptococcus pneumoniae Antigen (M - Final Radiography Diagnostic Testing: Radiology Impression Venous Doppler Study 04/08/24 13:25 Interpretation Summary Acute deep vein thrombosis is noted in the right posterior tibial vein, peroneal vein, soleus vein. Acute deep vein thrombosis is noted in the left tibio-peroneal trunk vein, posterior tibial vein, peroneal vein, soleus vein. Ordering Physician: Yung eBll Referring Physician: Rangel Santos Performed By: Mya Krause RVT D/C Instructions Discharge Diet: No restrictions Discharge Activity: Return to Normal Activity Call your doctor if you observe: Fever of 101 or Higher, Shortness of breath, Fainting spells and Chest pain Meaningful Use Info Meaningful Use Meaningful Use Diagnoses (Choose all that apply): VTE Ischemic Stroke Statin Dosing Therapy Reference: STATIN DOSE THERAPY REFERENCE: * Patients > 75 years receive moderate or high dose statin therapy. * Patients 75 years or YOUNGER should receive HIGH intensity statin dose unless contraindicated. You will be required to document reason for non-treatment if statin daily dose does not meet guidelines. HIGH DOSE STATIN THERAPY DAILY Atorvastatin > than or = to 40 mg Rosuvastatin > than or = to 20 mg Amlodipine + Atorvastatin > than or = to 2.5/40 mg Ezetimibe + Simvastatin 10/80 mg Simvastatin 80mg VTE Anticoag overlap given w/in hospital stay or rx'd at mt?: No Reason overlap not ordered, prescribed, or given for 5 days: Treatment Not Indicated Discharge Plan Admission Admit Date/Time: 04/05/24 16:33 Attending Provider: Yung Bell Primary Care Provider: Rangel Santos Consulting Providers: Antolin Rico; Don Gibson; Amado Maddox; Mark Leos Discharge Orders/Prescriptions Prescriptions: New Eliquis 5 mg Tablet 5 mg PO BID Qty: 70 0RF Rx Instructions: 10 mg p.o. twice daily x 7 days then subsequently 5 mg twice daily Continued famotidine 20 mg tablet 20 mg PO QHS Qty: 60 3RF esomeprazole magnesium 20 mg capsule,delayed release(DR/EC) 20 mg PO DAILY Qty: 30 5RF beclomethasone dipropionate 80 mcg/actuation HFA aerosol breath activated 1 inh inhalation Q12H Qty: 10.6 3RF methenamine hippurate 1 gram tablet 1 g PO QHS ascorbic acid (vitamin C) 1,000 mg Capsule, Extended Release 1 cap PO QHS sumatriptan succinate 100 mg tablet 100 mg PO Q2H PRN (Reason: migraine headache) simvastatin 10 mg tablet 10 mg PO DAILY ondansetron 4 mg tablet,disintegrating 4 mg PO TID PRN (Reason: nausea and vomiting) Qty: 21 0RF Discontinued amoxicillin-pot clavulanate 875-125 mg tablet 1 tab PO BID Qty: 14 0RF Rx Instructions: take with food-start with supper today Referrals / Follow Up: Rangel Santos MD [Primary Care Provider] - Within 1 Week Disposition Disposition (needs filled in before D/C Order can be placed): Home, Self Care Charges/Coding Visit Charges Inpatient E&M: 79818 Disch Hosp >30min
--- NOTE | 2024-04-09 15:00 | CASEMGMT ---
Order for DC placed. Pt has a new Rx for Eliquis. TC to [facility]. Dominic states that after insurance the medication is 43$. Pt also qualified for home oxygen (2L with exertion). Adithya from [employer] states to take a tank from stock. RN CM to pt room at this time and educated to call [facility] once she gets home so they can deliver the oxygen concentrator. Pt also updated about the cost of her medication and states that she is happy with this up. Pt RN updated and given the tank from stock to then provide the pt with education on how to use. Pt denies further questions or concerns and will be ready for DC home today.
== END 2024-04-09 17:01 | disposition home or self-care (01) | DRG 871 ==
LOC: ED 16:42 → PCU 16:45
PROVIDERS: Family Medicine; Internal Medicine; Internal Medicine Cardiovascular Disease; Internal Medicine Infectious Disease; Admitting Provider Hospitalist; Emergency Provider Emergency Medicine; PCP Family Medicine; Visit Provider Internal Medicine
DX: A41.50 Gram-negative sepsis, unspecified (principal); I26.99 Other pulmonary embolism without acute cor pulmonale; J15.69 Pneumonia due to other Gram-negative bacteria; J15.9 Unspecified bacterial pneumonia; J12.89 Other viral pneumonia; J90 Pleural effusion, not elsewhere classified; J98.11 Atelectasis; N30.00 Acute cystitis without hematuria; I48.91 Unspecified atrial fibrillation; I10 Essential (primary) hypertension; E87.8 Other disorders of electrolyte and fluid balance, not elsewhere classified; R19.7 Diarrhea, unspecified; E78.5 Hyperlipidemia, unspecified; R11.0 Nausea; E87.6 Hypokalemia; K22.70 Barrett's esophagus without dysplasia; Z66 Do not resuscitate; R09.02 Hypoxemia; B95.2 Enterococcus as the cause of diseases classified elsewhere
CPT/HCPCS: 36415; 36569; 71045; 71046; 71275; 80048; 80076; 81001; 83605; 83735; 83880; 84100; 84145; 84443; 84484; 85025; 85379; 85610; 85652; 85730; 86140; 87040; 87449; 87633; 87641; 93005; 93306; 93970; 94640; 94668; 94762; 96361; 96367; 96372; 99285; J7030; J7040; Q9957; Q9967; A4216; C8929; J0295

== ENCOUNTER → 2024-05-06 | Outpatient (CLI) | payer MEDICARE, OTHER, SELFPAY | END | disposition home or self-care (01) | LOC: LAB 16:02 | PROVIDERS: PCP Family Medicine; Referring Provider Urology; Visit Provider Urology | DX: N30.20 Other chronic cystitis without hematuria (principal) | CPT/HCPCS: 87086; 87088; 87186 ==

== ENCOUNTER → 2024-06-21 | Outpatient (CLI) | payer MEDICARE, OTHER, SELFPAY ==
--- NOTE | 2024-06-21 14:49 | US_ITS ---
ACR Level 3 findings have been noted. An addendum which confirms receipt of the report will follow. STUDY: RENAL ULTRASOUND - COMPLETE REASON FOR EXAM: Female, 78 years old. UTI TECHNIQUE: Ultrasound evaluation of the kidneys was performed with real-time and static vargas-scale imaging. COMPARISON: CT of abdomen and pelvis dated December 26, 2018 FINDINGS: RIGHT KIDNEY: Normal location of the right kidney, which is normal in size. The right kidney measures 9.1 x 4.5 x 3.9 cm. There is a normal cortex of the right kidney. The renal cortex measures 0.94 cm. There is no right renal mass or cyst. There are no right renal calculi. There is no right hydronephrosis. DISTAL RIGHT URETER: There is non-visualization of the distal right ureter. There is no demonstrated right ureterovesical junction calculus. There is a visualized right ureteral jet. LEFT KIDNEY: Normal location of the left kidney, which is normal in size. The left kidney measures 9.9 x 3.8 x 4.6 cm. There is a normal cortex of the left kidney. The renal cortex measures 1.2 cm. There is no left renal mass or cyst. There are no left renal calculi. There is no left hydronephrosis. DISTAL LEFT URETER: There is non-visualization of the distal left ureter. There is no demonstrated left ureterovesical junction calculus. There is a visualized left ureteral jet. BLADDER: The distended urinary bladder has a volume of 110 ml. The empty urinary bladder has a volume of 28.5 ml. There is a normal wall thickness of the distended urinary bladder. Ill-defined 2.3 x 3.3 x 1.95 cm cystic-appearing mass without vascular flow is present in the trigone/base of the bladder and is not sufficiently evaluated by ultrasound. A CT urogram with and without contrast should be obtained for further assessment. Considerations include a ureterocele or bladder diverticulum or similar entity. A cystic malignant mass of the bladder is also a possibility. US/Kidney and Bladder IMPRESSION: 1. Ill-defined 2.3 x 3.3 x 1.95 cm cystic-appearing mass without vascular flow is present in the trigone/base of the bladder and is not sufficiently evaluated by ultrasound. A CT urogram with and without contrast should be obtained for further assessment. Considerations include a ureterocele or bladder diverticulum or similar entity. A cystic malignant mass of the bladder is also a possibility. 2. No abnormalities of the bladder were seen on the CT of abdomen and pelvis dated December 26, 2018. Electronically Signed: Lakhwinder Grimes MD at 12:24 EDT ,
== END | disposition home or self-care (01) ==
LOC: US 14:46
PROVIDERS: PCP Family Medicine; Referring Provider Urology; Visit Provider Urology
DX: N39.0 Urinary tract infection, site not specified (principal)
CPT/HCPCS: 76770

== ENCOUNTER 2025-04-13 12:18 | Emergency (ER) | payer MEDICARE, OTHER, SELFPAY ==
[2025-04-13 12:19] VITALS: BP 169/91; PULSE 106; RESP 16; TEMP 36.6; O2SAT 96; BMI 23.7
--- NOTE | 2025-04-13 12:24 | EKG12_ITS ---
Test Reason : Blood Pressure : */* mmHG Vent. Rate : 95 BPM Atrial Rate : 95 BPM P-R Int : 144 ms QRS Dur : 78 ms QT Int : 318 ms P-R-T Axes : 45 -25 -3 degrees QTcB Int : 399 ms Sinus rhythm with Premature atrial complexes CAN NOT RULE OUT Septal infarct (cited on or before 05-Apr-2024) ST & T wave abnormality, consider inferolateral ischemia Abnormal ECG Confirmed by Puneet Allen ([id number]), mapping editor CHRISTIAN MADERA ([id number]) on 04/14/2025 9:37:14 AM Referred By: Confirmed By: Puneet Allen
[2025-04-13 12:45] LABS: Absolute Lymphocyte Count 2.25 X10^3/uL (0.83-4.51); Absolute Neutrophil Count 4.9 X10^3/uL (2.0-7.7); Basophil# 0.04 X10^3/uL; Basophil% 0.5 % (0-1); Eosinophils% 1.3 % (0-5); Hematocrit 47.2 % (37-47); Hemoglobin 15.8 g/dL (12.0-15.0); Lymphocyte # 2.25 X10^3/ul (0.83-4.51); Lymphocyte % 29.1 % (19-41); Mean Corp Hgb Conc 33.5 g/dL (32-36); Mean Corpuscular Volume 92.7 fL (81-99); Mean Platelet Vol. 10.8 fl (6.2-12.0); Monocyte# 0.42 X10^3/uL; Monocyte% 5.4 % (0-10); NRBC Flagged by Analyzer 0 % (0-5); Neutrophil % 63.6 % (47-70); Platelet Count 234 K/mm3 (150-450); RBC Distribution Width CV 13.4 % (11.6-14.6); RBC Distribution Width SD 45.5 fl (35.1-43.9); Red Blood Count 5.09 M/mm3 (4.2-5.4); White Blood Count 7.7 K/mm3 (4.4-11.0)
--- OUTSIDE RECORDS SUMMARY | 2025-04-13 12:48 | XMS RPT_ITS | CCD ---
Author Organization [facility] [place] [facility] Care Team Providers Care Documentation Consultant Name Role Phone Friend, Dr. Degroot Attending Provider Dr. Rangel Bonilla Primary Care Provider Dr. Rangel Bonilla Referring Provider Friend, Dr. Degroot Other Provider Rangel Bonilla MD Primary Care Provider [phone] Candelaria MEEK, MEDICAL CASE MANAGER-C Nikki El Attending Provider [phone] Unknown, Referring Provider Unavailable Unav ailable Unavailable Unavailable Rangel Bonilla MD Primary Care Provider Dr. Dutch Stevenson Referring Unavailable Dr. Dutch Stevenson Attending Unavailable UNKNOWN, PCP Primary Care Unavailable Rangel Bnoilla MD Primary Care Provider Rangel Bonilla MD Primary Care Provider Valentine RN, Lupe Unavailable Uma MONDRAGONN.Alan WILSON Unavailable Rayna Martinez PA-C Unavailable Yung Bell Attending Unavailable Antolin Rico Consulting Unavailable Antolin Rico Admitting Unavailable Rangel Bonilla Primary Care Unavailable Don Gibson Consulting Unavailable Amado Maddox Consulting Unavailable Mark Leos Consulting Unavailable Yung Bell Consulting Unavailable Rangel Bonilla Primary Care Unavailable Antolin Rico Attending Unavailable Antolin Rico Admitting Unavailable Antolin Rico Consulting Unavailable Amado Maddox Attending Unavailable Denise Parry Attending Unavailable Tereletsky, Hood Attending Unavailable Hood Bennett Consulting Unavailable Yung Bell Referring Unavailable Alexx Estrada Attending Unavailable Irene, Rangel Primary Care Unavailable Fatimah Yoon Attending Unavailable Irene, Rangel Primary Care Unavailable Antolin Rico Attending Unavailable Mala Coello Attending Unavailable Irene, Rangel Primary Care Unavailable Mala Coello Referring Unavailable Friend, Zane Attending Unavailable Irene, Rangel Primary Care Unavailable Irene, Rangel Referring Unavailable Friend, Zane Attending Unavailable Irene, Rangel Referring Unavailable Irene, Rangel Primary Care Unavailable Sonny Etienne Attending Unavailable JaimieSonny Referring Unavailable Irene, Rangel Primary Care Unavailable Irene, Rangel Primary Care Unavailable Arash Caldwell Attending Unavailable Antolin Rico Consulting Unavailable Antolin Rico Admitting Unavailable Irene, Rangel Primary Care Unavailable Hood Bennett Attending Unavailable Yung Bell Attending Unavailable Antolin Rico Admitting Unavailable Antolin Rico Consulting Unavailable Irene, Rnagel Primary Care Unavailable Don Gibson Consulting Unavailable Amado Maddox Consulting Unavailable Tereso Leosril Consulting Unavailable Mala Coello Attending Unavailable Mala Coello Referring Unavailable Irene, Rangel Primary Care Unavailable Mark Leos Attending Unavailable Rangel Bonilla MD Primary Care Provider IRENE, RANGEL A Referring Unavailable IRENE, RANGEL A Primary Care Unavailable IRENE, RANGEL A Primary Care Unavailable MASCICORNEL A Attending Unavailable IRENE, RANGEL A Primary Care Unavailable ALAN VIGIL Attending Unavailable IRENE, RANGEL A Primary Care Unavailable MASCI, CORNEL A Referring Unavailable IRENE, RANGEL A Primary Care Unavailable MASCI, CORNEL A Referring Unavailable IRENE, RANGEL A Primary Care Unavailable IRENE, RANGEL A Referring Unavailable IRENE, RANGEL A Primary Care Unavailable IRENE, RANGEL A Referring Unavailable IRENE, RANGEL A Primary Care Unavailable IRENE, RANGEL A Referring Unavailable IRENE, RANGEL A Primary Care Unavailable IRENE, RANGEL A Referring Unavailable IRENE, RANGEL A Primary Care Unavailable CHAR LANDEROS Attending Unavailable IRENERANGEL Attending Unavailable IRENE, RANGEL A Primary Care Unavailable IRENE, RANGEL A Primary Care Unavailable IRENE, RANGEL A Referring Unavailable IRENE, RANGEL A Referring Unavailable IRENE, RANGEL A Primary Care Unavailable IRENE, RANGEL A Primary Care Unavailable IRENE, RANGEL A Referring Unavailable IRENE, RANGEL A Primary Care Unavailable CHAR LANDEROS Referring Unavailable BROWN, CHAR BURGOS Attending Unavailable IRENE, RANGEL A Primary Care Unavailable MASCI, CORNEL A Referring Unavailable IRENE, RAGNEL A Primary Care Unavailable MASCI, CORNEL A Referring Unavailable IRENE, RANGEL A Primary Care Unavailable MASCI, CORNEL A Referring Unavailable MASCI, CORNEL A Referring Unavailable IRENE, RANGEL A Primary Care Unavailable BROWN, CHAR BURGOS Attending Unavailable IRENE, RANGEL A Primary Care Unavailable KATELIN JAMESON Referring Unavailable IRENE, RANGEL A Primary Care Unavailable IRENE, RANGEL A Attending Unavailable IRENE, RANGEL A Primary Care Unavailable IRENE, RANGEL A Primary Care Unavailable MASCI, CORNEL A Referring Unavailable IRENE, RANGEL A Referring Unavailable IRENE, RANGEL A Primary Care Unavailable MASCI, CORNEL A Attending Unavailable [facility] 02-14-2025 Telephone encounter Note Patient has not restarted; she not been given any instructions or a new prescription yet. Patient said she saw the lung doctor and Dr. Clark and they indicated that she would need to be on it for the rest of her life. She said they juan manuel of scared her; she doesn't mind being on the medication if she has to have it. She doesn't want to from a blood clot that could be prevented. She indicated that even her son who is a doctor indicated that patient's are usually only on it for 6 months. She is confused about it all and hoping for some answers. Dodie Vazquez MA [facility] 02-14-2025 Telephone encounter Note Find out if patient is taking the coumadin at the dosing below and if so when did she restart it? [facility] 02-14-2025 Telephone encounter Note Last INR: INR 1.0 02/14/2025 Current dose of coumadin is: Last INR patient was to stop coumadin 10/17/2024 Last date of dose change: 10/09/2024. (Dose was 7.5 mg Sat and Tues, and 5 mg all other days) Previous INR (date and result): 1.2 Additional Clinical Information or narrative: no [facility] 01-31-2025 History of Present illness Narrative Images from the original note were not included. . 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 Seen by hematology, transitioned to Coumadin from Eliquis. 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 Apparently she stopped her anticoagulation in October, states Dr. Bonilla told her to stop after 6 months. At recent visit with hematology, recommended D-dimer for risk assessment but recommended delay in testing by one month since patient was acutely ill with viral URI. She subsequently tested positive for COVID. Treated with Paxlovid. She has been off her oxygen for some time. She denies any shortness of breath, chest pain, lower extremity edema, chronic cough. 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 Duarte at [facility]. 08/18/[address] Fischer at [facility] Chronic throat clearing 02/01/2018 Ectopic gastric mucosa of multiple sites 05/06/[address] Granado 04/2022 Elevated fasting blood sugar 08/14/2018 Encounter for gynecological examination without abnormal finding 07/20/2016 Sees [facility]. Essential hypertension 07/20/2016 GERD without esophagitis 01/14/2008 Hemorrhoids 03/03/2017 Hiatal hernia History of pulmonary embolus (PE) 04/08/202404/2024: 4 of them History of pulmonary embolus (PE) 04/08/202404/2024: 4 of them, to be on anticoagulation for 6 months. History of recurrent UTIs 07/19/2018 History of subdural hematoma 03/03/2017 After a fall Hypoxia 04/15/2024 After PE's 04/2024 Lichen sclerosus et atrophicus 03/03/2017 Living will on file at physician's office 01/16/2023 DPA: Nate (Son) Lumbago 03/21/[address] Duarte at [facility]. Medicare annual wellness visit, subsequent 08/14/2018 Medicare Part B: 06/06/2008 last done: 08/23/2019 Migraine without aura and without status migrainosus, not intractable 07/20/2016 Mixed hyperlipidemia 01/14/2008 Postmenopausal atrophic vaginitis 06/06/2012 Pulmonary nodules 10/03/201609/2016, follow uo CT in a year, 08/[address] Zheng Right thyroid nodule 10/03/2016 Had benign biopsy 09/2016 at [facility] Seasonal allergies 07/20/2016 Sinus arrhythmia Spinal stenosis, lumbar region, without neurogenic claudication 03/21/2012 ALLERGIES Allergen Reactions Willis Inhibitors Cough Carafate [Sucralfat* Diarrhea Eliquis [Apixaban] Other: See Comments Nausea, decreased appetite and chills Protonix [Pantopraz* Other: See Comments Stomach pain benzonatate (TESSALON PERLE) 100 mg capsule Take 1 capsule by mouth three times a day as needed for cough. ipratropium bromide (ATROVENT) 42 mcg (0.06 %) nasal spray Use 2 Sprays in each nostril three times a day for 17 days. ondansetron orally disintegrating (ZOFRAN ODT) 4 mg disintegrating tablet Take 1 tablet by mouth every 8 hours as needed for nausea/vomiting. estradiol (ESTRACE) 0.01 % (0.1 mg/gram) vaginal cream Use 1 g vaginally every other day. At bedtime simvastatin (ZOCOR) 10 mg tablet Take 1 tablet by mouth daily at bedtime. SUMAtriptan (IMITREX) 100 mg tablet Take one tab by month with onset of headache. Can repeat in 2 hrs. Max of 2 tabs in 24 hrs Social History Tobacco Use Smoking status: Never Passive exposure: Never Smokeless tobacco: Never Tobacco comments: No smoking in childhood home. No significant ETS in household since. Vaping Use Vaping status: Never Used Substance Use Topics Alcohol use: Yes Alcohol/week: 1.0 standard drink of alcohol Types: 1 Glasses of Wine (5oz) per week Comment: socially Drug use: No FAMILY HISTORY Problem Relation Age of Onset Coronary Artery Disease Mother Fatal [place] in her 80s Diabetes Father ADULT ONSET Coronary Artery Disease Father in his 80s No Known Problems Sister Hypertension Brother Coronary Artery Disease Brother 56 Prostate Cancer Brother No Known Problems Maternal Grandmother No Known Problems Maternal Grandfather No Known Problems Paternal Grandmother No Known Problems Paternal Grandfather COPD No Family History No lung cancer. PAST SURGICAL HISTORY Procedure Laterality Date 2D [...] TUBE OVARY 1988 Hysterectomy, FUAD/BSO VAGINAL HYSTERECTOMY PMH, Social history, family history and surgical history reviewed and updated in EMR REVIEW OF SYSTEMS: CONSTITUTIONAL: No fevers, chills, nightsweats, unintended weight loss CARDIOVASCULAR: No chest pain, dyspnea, palpitations, orthopnea, edema. PULM: See HPI NEURO: No new balance problems, peripheral weakness/paresthesias or numbness of concern. INTEGUMENTARY: No new skin changes PHYSICAL EXAMINATION: BP 130/82 Pulse 68 Resp 18 SpO2 99% General Appearance: Elderly female, NAD. Skin: Skin color, texture, turgor normal, no suspicious rashes or lesions. Oropharynx: No oral lesions. Neck: No masses, no adenopathy, no JVD. Lungs: Not labored, normal to percussion, no wheezes or crackles. Heart: Regular rate and rhythm, soft systolic murmur. Extremities: No edema or clubbing. Assessment/Plan: 1. History of pulmonary embolism -Myself and hematology recommending long-term anticoagulation due to unprovoked nature of her pulmonary embolism. Patient is now agreeable to restart Coumadin. 2. History of respiratory failure -Resolved -Follow-up as needed Char Landeros MD [facility] documented in this encounter [facility] 01-31-2025 Note [facility] 01-17-2025 Telephone encounter Note Phoned patient aware rx sent to the pharmacy per PCP with understanding. [facility] 01-17-2025 Miscellaneous Notes Phoned patient aware rx sent to the pharmacy per PCP with understanding. Let patient know script sent in. The following approved medication requests have been transmitted electronically. Requested Prescriptions Signed Prescriptions Disp Refills codeine-guaiFENesin (ROBITUSSIN AC) 10-100 mg/5 mL syrup 120 mL 0 Sig: Take 5-10 mL by mouth four times a day as needed for cough for up to 5 days. May cause drowsiness. Authorizing Provider: RANGEL BONILLA MD Patient calling she is COVID positive and has dry irritating cough. The tessalon perles are not helping her. Patient is asking for stronger cough syrup rx to be sent to [facility] pharmacy. She said it was years ago PCP had given her rx she can not remember the name of it. Please advise documented in this encounter [facility] 01-17-2025 Telephone encounter Note Let patient know script sent in. The following approved medication requests have been transmitted electronically. Requested Prescriptions Signed Prescriptions Disp Refills codeine-guaiFENesin (ROBITUSSIN AC) 10-100 mg/5 mL syrup 120 mL 0 Sig: Take 5-10 mL by mouth four times a day as needed for cough for up to 5 days. May cause drowsiness. Authorizing Provider: RANGEL BONILLA MD [facility] 01-17-2025 Telephone encounter Note Patient calling she is COVID positive and has dry irritating cough. The tessalon perles are not helping her. Patient is asking for stronger cough syrup rx to be sent to [facility] pharmacy. She said it was years ago PCP had given her rx she can not remember the name of it. Please advise [facility] 01-16-2025 Telephone encounter Note Creatinine clearance 66 Reached out to patient, she will start the Paxlovid RX Tessalon Perles RX Atrovent spray [facility] 01-16-2025 Miscellaneous Notes Creatinine clearance 66 Reached out to patient, she will start the Paxlovid RX Tessalon Perles RX Atrovent spray documented in this encounter [facility] 01-15-2025 Telephone encounter Note COVID POSITIVE Reached out to patient She has had Paxlovid in the past, Specifically one year ago She tolerated it well. She is requesting it again. Last kidney function is from January 2024 She is amicalbe to returning in the morning, will have stat bmp Paxlovid called in, but patient knows to hold off until confirmation of appropriate kidney function. [facility] 01-15-2025 Miscellaneous Notes COVID POSITIVE Reached out to patient She has had Paxlovid in the past, Specifically one year ago She tolerated it well. She is requesting it again. Last kidney function is from January 2024 She is amicalbe to returning in the morning, will have stat bmp Paxlovid called in, but patient knows to hold off until confirmation of appropriate kidney function. documented in this encounter [facility] 01-15-2025 Note SARS-COV-2 (AGENT OF COVID-19) RNA: Detected INFLUENZA A RNA: Not detected INFLUENZA B RNA: Not detected RESPIRATORY SYNCYTIAL VIRUS (RSV) RNA: Not detected [facility] Comment on above: Performed By: #### 9 [id number] ####[facility]CLIA [id number] [address] [place] 01-15-2025 Instructions Katelin Jameson APRN.CNP - 01/15/2025 9:55 AM EDT RESPIRATORY INFECTION GENERAL INFORMATION: An upper respiratory tract infection, or cold, is a viral infection of the airway passages. It can be caused by any one of almost 200 different viruses. Common symptoms include a runny or stuffy nose, sneezing, watery eyes, sore throat, cough, and slight fever. Colds are contagious, especially during the first 3 or 4 days and cannot be cured by antibiotics. They are spread by coughs, sneezes, and direct contact, especially [id number]. A respiratory tract infection usually clears up in a few days, but some people may be sick for a week or two. INSTRUCTIONS: 1. Be careful not to blow your nose too hard because this may cause a nosebleed. 2. Use a cool-mist humidifier (vaporizer) to increase air moisture. This will make it easier for you to breathe. Do not use hot steam. 3. Rest as much as possible and get plenty of sleep. 4. Wash your hands often, especially after you blow your nose. Cover your mouth and nose with a tissue when you sneeze or cough. 5. Drink plenty of clear fluids (8 glasses a day) such as water, fruit juice, tea, clear soups, and carbonated beverages. CONTACT YOUR DOCTOR IF : 1. Your fever lasts more than 3 days. 2. You have a sore throat that gets worse or you see white or yellow spots in your throat. 3. Your cough gets worse or lasts more than 10 days. 4. You develop a rash anywhere on your skin. 5. You have an earache or a headache. 6. You have thick greenish or yellowish discharge from your nose. RETURN IMMEDIATELY IF: 1. You cough up thick yellow, green, montgomery, or bloody sputum. 2. You have difficulty breathing, pain in your chest, or your skin or nails look montgomery or blue. 3. You have shaking chills or a temperature over 102 F (39 C). documented in this encounter [facility] 01-15-2025 Note [facility] 01-15-2025 History of Present illness Narrative This note was created using Qzzrriter. Subjective Norma Ferris is a 79 year old female. 79 year old female with PMH migraines, HTN, hyperlipidemia, Barrets presents for illness Acute onset last night +cough +non productive +congestion +fever +fatigue Denies CP Denies SOB or dyspnea Denies abdominal pain Denies N/V/D Sent in by Dr. Clark to rule out influenza I dont' think this is the flu, but he sent me in Of note, she just returned on Monday from being on a cruise Denies tobacco usage Denies using homeopathic or OTC The history is provided by the patient. No greek professor was used. URI She complains of cough. There is no chest tightness, difficulty breathing, frequent throat clearing, hemoptysis, hoarse voice, shortness of breath, sputum production or wheezing. This is a new problem. The current episode started yesterday. The problem occurs constantly. The problem has been unchanged. The cough is non-productive. Associated symptoms include ear congestion, a fever, headaches, malaise/fatigue, nasal congestion, rhinorrhea and sneezing. Pertinent negatives include no appetite change, chest pain, dyspnea on exertion, ear pain, heartburn, myalgias, orthopnea, PND, postnasal drip, sore throat, sweats, trouble swallowing or weight loss. Her symptoms are aggravated by nothing. Her symptoms are alleviated by nothing. She reports no improvement on treatment. There are no known risk factors for lung disease. There is no history of asthma, bronchiectasis, bronchitis, COPD, emphysema or pneumonia. 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 Duarte at [facility]. 08/18/[address] Fischer at [facility] Chronic throat clearing 02/01/2018 Ectopic gastric mucosa of multiple sites 05/06/[address] Granado 04/2022 Elevated fasting blood sugar 08/14/2018 Encounter for gynecological examination without abnormal finding 07/20/2016 Sees [facility]. Essential hypertension 07/20/2016 GERD without esophagitis 01/14/2008 Hemorrhoids 03/03/2017 Hiatal hernia History of pulmonary embolus (PE) 04/08/202404/2024: 4 of them History of pulmonary embolus (PE) 04/08/202404/2024: 4 of them, to be on anticoagulation for 6 months. History of recurrent UTIs 07/19/2018 History of subdural hematoma 03/03/2017 After a fall Hypoxia 04/15/2024 After PE's 04/2024 Lichen sclerosus et atrophicus 03/03/2017 Living will on file at physician's office 01/16/2023 DPA: Nate (Son) Lumbago 03/21/[address] Duarte at [facility]. Medicare annual wellness visit, subsequent 08/14/2018 Medicare Part B: 06/06/2008 last done: 08/23/2019 Migraine without aura and without status migrainosus, not intractable 07/20/2016 Mixed hyperlipidemia 01/14/2008 Postmenopausal atrophic vaginitis 06/06/2012 Pulmonary nodules 10/03/201609/2016, follow uo CT in a year, 08/[address] Zheng Right thyroid nodule 10/03/2016 Had benign biopsy 09/2016 at [facility] Seasonal allergies 07/20/2016 Sinus arrhythmia Spinal stenosis, lumbar region, without neurogenic claudication [...] OVARY 1988 Hysterectomy, FUAD/BSO VAGINAL HYSTERECTOMY ALLERGIES Willis Inhibitors, Carafate [Sucralfate], Eliquis [Apixaban], and Protonix [Pantoprazole] MEDICATIONS ondansetron orally disintegrating (ZOFRAN ODT) 4 mg disintegrating tablet Take 1 tablet by mouth every 8 hours as needed for nausea/vomiting. estradiol (ESTRACE) 0.01 % (0.1 mg/gram) vaginal cream Use 1 g vaginally every other day. At bedtime simvastatin (ZOCOR) 10 mg tablet Take 1 tablet by mouth daily at bedtime. SUMAtriptan (IMITREX) 100 mg tablet Take one tab by month with onset of headache. Can repeat in 2 hrs. Max of 2 tabs in 24 hrs FAMILY HISTORY Problem Relation Age of Onset Coronary Artery Disease Mother Fatal [place] in her 80s Diabetes Father ADULT ONSET Coronary Artery Disease Father in his 80s No Known Problems Sister Hypertension Brother Coronary Artery Disease Brother 56 Prostate Cancer Brother No Known Problems Maternal Grandmother No Known Problems Maternal Grandfather No Known Problems Paternal Grandmother No Known Problems Paternal Grandfather COPD No Family History No lung cancer. Social History Tobacco Use Smoking status: Never Passive exposure: Never Smokeless tobacco: Never Tobacco comments: No smoking in childhood home. No significant ETS in household since. Vaping Use Vaping status: Never Used Substance Use Topics Alcohol use: Yes Alcohol/week: 1.0 standard drink of alcohol Types: 1 Glasses of Wine (5oz) per week Comment: socially Drug use: No Review of Systems Constitutional: Positive for fever and malaise/fatigue. Negative for appetite change and weight loss. HENT: Positive for rhinorrhea and sneezing. Negative for ear pain, hoarse voice, postnasal drip, sore throat and trouble swallowing. Eyes: Negative for pain, discharge and itching. Respiratory: Positive for cough. Negative for hemoptysis, sputum production, shortness of breath and wheezing. Cardiovascular: Negative for chest pain, dyspnea on exertion and PND. Gastrointestinal: Negative for abdominal pain, diarrhea, heartburn, nausea and vomiting. Musculoskeletal: Negative for myalgias. Skin: Negative for color change, pallor and rash. Allergic/Immunologic: Negative for environmental allergies, food allergies and immunocompromised state. Neurological: Positive for headaches. Negative for dizziness and facial asymmetry. Hematological: Negative for adenopathy. Does not bruise/bleed easily. Psychiatric/Behavioral: Negative for agitation and behavioral problems. Objective BP 164/103 Pulse 88 Temp 37.2 C (99 F) Resp 16 Wt 64 kg (141 lb) SpO2 97% BMI 25.54 kg/m Physical Exam Vitals and nursing note reviewed. Constitutional: General: She is not in acute distress. Appearance: Normal appearance. She is normal weight. She is not ill-appearing, toxic-appearing or diaphoretic. HENT: Head: Normocephalic and atraumatic. Right Ear: Ear canal and external ear normal. Left Ear: Ear canal and external ear normal. Nose: Nose normal. No congestion or rhinorrhea. Mouth/Throat: Mouth: Mucous membranes are moist. Pharynx: Posterior oropharyngeal erythema present. No oropharyngeal exudate. Eyes: General: Right eye: No discharge. Left eye: No discharge. Extraocular Movements: Extraocular movements intact. Conjunctiva/sclera: Conjunctivae normal. Pupils: Pupils are equal, round, and reactive to light. Cardiovascular: Rate and Rhythm: Normal rate and regular rhythm. Pulses: Normal pulses. Heart sounds: Normal heart sounds. No murmur heard. No friction rub. Pulmonary: Effort: Pulmonary effort is normal. No respiratory distress. Breath sounds: Normal breath sounds. No stridor. No wheezing, rhonchi or rales. Chest: Chest wall: No tenderness. Abdominal: General: Abdomen is flat. There is no distension. Palpations: Abdomen is soft. There is no mass. Tenderness: There is no abdominal tenderness. There is no right CVA tenderness, left CVA tenderness, guarding or rebound. Hernia: No hernia is present. Musculoskeletal: General: No swelling, tenderness, deformity or signs of injury. Normal range of motion. Cervical back: Normal range of motion and neck supple. No rigidity. Right lower leg: No edema. Left lower leg: No edema. Lymphadenopathy: Cervical: Cervical adenopathy present. Skin: General: Skin is warm and dry. Capillary Refill: Capillary refill takes less than 2 seconds. Coloration: Skin is not jaundiced or pale. Findings: No bruising, erythema, lesion or rash. Neurological: General: No focal deficit present. Mental Status: She is alert and oriented to person, place, and time. Cranial Nerves: No cranial nerve deficit. Sensory: No sensory deficit. Motor: No weakness. Coordination: Coordination normal. Gait: Gait normal. Psychiatric: Mood and Affect: Mood normal. Behavior: Behavior normal. Thought Content: Thought content normal. Judgment: Judgment normal. Assessment and Plan ASSESSMENT/PLAN: 1. Exposure to influenza - ICD9: V01.79, ICD10: Z20.828 (primary diagnosis) Arrived back on 01/13/25 from cruise Sx started 01/14/25 Influenza POC here in clinic negative Rapid sent out - INFLUENZA A&B MOLECULAR (POC) - COVID & INFLUENZA A/B & RSV PCR, ROUTINE 2. URI, acute - ICD9: 465.9, ICD10: J06.9 - Discussed viral etiology and rationale for treatment. - Symptomatic treatment with prn analgesia - Supportive care with fluids and rest - The patient may also use OTC cough and cold meds as needed, warm salt water gargles, throat lozenges and/or OTC throat spray as needed, and nasal saline gtts and suction prn. - Follow up in 3-5 days if symptoms persist or sooner if worsening of symptoms - COVID & INFLUENZA A/B & RSV PCR, ROUTINE Katelin Jameson APRN.[facility] documented in this encounter [facility] 01-15-2025 History of Present illness Narrative Hematologic problem(s): 1) Unprovoked PE. HPI: The patient is an 78-year-old female with a past medical history as outlined below. Presented to the ED at [facility] on 03/24/2024 with complaints of generalized abdominal pain, multiple episodes of vomiting and diarrhea that were keeping her awake at night. 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 Was discharged home. Return to the ED several days later on 04/01. Had been seen earlier in the day at urgent care with a temperature of 100.8. Home thermometer demonstrated temperature to 104. Only other complaint at that time was urinary frequency. Had history of recurrent UTIs. Noted to have pulse ox 92% on room air. Diagnosed with UTI. Was placed on Augmentin for history of ESBL E. coli. Urine culture returned with Enterococcus facialis. It was sensitive to Augmentin. Return to the ED on 04/05 due to continued fevers. At that time D-dimer was noted to be elevated. Had CTA of chest demonstrated multiple bilateral pulmonary emboli. Venous duplex ultrasound of the legs demonstrated evidence of acute DVT in the right posterior tibial, peroneal and soleus veins. Acute DVT was also noted in the left tibioperoneal trunk vein, posterior tibial, peroneal vein and soleus vein. Echocardiogram was performed during admission demonstrating LVEF 55 to 60% with normal right ventricular size and function no evidence of right ventricular strain on EKG or echocardiogram. Also tested for rhinovirus. Antibiotics were discontinued on 04/09. Patient was discharged home on home oxygen and apixaban. Was seen by Dr. Landeros. At that time patient endorsed no significant dyspnea, chest pain or lower extremity edema. She had no recent surgeries, travel or sedentary history prior to the pulmonary emboli. No family history of hypercoagulable disorder. Had respiratory symptoms consisting of cough without sputum production that has been going on for approximately 2 months. Other past medical history significant for Saravia's esophagus. Was evaluated by ENT as well. Has been seen by gastroenterology. Observed a small sliding hiatal hernia and an esophagram demonstrating barium pill to trap the GE junction previous EGD and biopsy consistent Saravia's esophagus. Plan for mucosal ablation of did not respond to aggressive acid suppression. ENT evaluation showed severe edema of the intra arytenoid area. Sex: Female. Smoker: No. Family h/o VTE: No. Family h/o atherosclerotic disease: No. Family h/o cancer: Brother--Colon cancer. in his 70s. Patient has had colonoscopies. Hypercoagulation labs: No. Up to date on age and gender appropriate cancer screening studies: No mammogram in quite a while. Transient risk factors: Possible viral syndrome.. Chronic risk factors: No varicose veins. Had been on HRT with oral therapy; Uses topical estrogen cream (Estrace--twice a week). Recent illnesses: Yes (Covid 08/2023; Recent rhinovirus). US legs performed: Yes. Initial office consultation: Using O2 at night now. Using pickle. Makes her cough, but no cough otherwise. Recurrent UTIs. Occasional sinusitis. Chronic throat cleaning. Walking about an hour every morning. No mammogram in quite a while. Presents for ongoing oncologic management. Interim history: Just got back from her cruise yesterday. Last night she had onset of feeling not well. Low-grade fever. Started coughing. No sputum production. not sick. When she was on the cruise ship, arm got stuck in the elevator which caused a laceration requiring 8 sutures. She discontinued anticoagulation October 14. She was under the impression that Dr. Landeros had told her PCP it was okay to stop after [address] Landeros's note, she agreed with indefinite anticoagulation. 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 Duarte at [facility]. 08/18/[address] Fischer at [facility] Chronic throat clearing 02/01/2018 Ectopic gastric mucosa of multiple sites 05/06/[address] Granado 04/2022 Elevated fasting blood sugar 08/14/2018 Encounter for gynecological examination without abnormal finding 07/20/2016 Sees [facility]. Essential hypertension 07/20/2016 GERD without esophagitis 01/14/2008 Hemorrhoids 03/03/2017 Hiatal hernia History of pulmonary embolus (PE) 04/08/202404/2024: 4 of them History of pulmonary embolus (PE) 04/08/202404/2024: 4 of them, to be on anticoagulation for 6 months. History of recurrent UTIs 07/19/2018 History of subdural hematoma 03/03/2017 After a fall Hypoxia 04/15/2024 After PE's 04/2024 Lichen sclerosus et atrophicus 03/03/2017 Living will on file at physician's office 01/16/2023 DPA: Nate (Son) Lumbago 03/21/[address] Duarte at [facility]. Medicare annual wellness visit, subsequent 08/14/2018 Medicare Part B: 06/06/2008 last done: 08/23/2019 Migraine without aura and without status migrainosus, not intractable 07/20/2016 Mixed hyperlipidemia 01/14/2008 Postmenopausal atrophic vaginitis 06/06/2012 Pulmonary nodules 10/03/201609/2016, follow uo CT in a year, 08/[address] Zheng Right thyroid nodule 10/03/2016 Had benign biopsy 09/2016 at [facility] Seasonal allergies 07/20/2016 Sinus arrhythmia Spinal stenosis, lumbar region, without neurogenic claudication [...] OVARY 1987 Hysterectomy, FUAD/BSO VAGINAL HYSTERECTOMY ALLERGIES Allergen Reactions Willis Inhibitors Cough Carafate [Sucralfat* Diarrhea Eliquis [Apixaban] Other: See Comments Nausea, decreased appetite and chills Protonix [Pantopraz* Other: See Comments Stomach pain Current Outpatient Medications Medication Sig warfarin (COUMADIN) 5 mg tablet Starting today 08/12/24 have patient start taking 5 mg Mon, Wed, , Mon, Mon and 7.5 mg on , Mon. enoxaparin (LOVENOX) 40 mg/0.4 mL Do one shot daily till therapeutic on coumadin and intructed by provider to stop. Start on Monday07/20/2024 (Patient not taking: Reported on 08/21/2024) ondansetron orally disintegrating (ZOFRAN ODT) 4 mg disintegrating tablet Take 1 tablet by mouth every 8 hours as needed for nausea/vomiting. estradiol (ESTRACE) 0.01 % (0.1 mg/gram) vaginal cream Use 1 g vaginally every other day. At bedtime simvastatin (ZOCOR) 10 mg tablet Take 1 tablet by mouth daily at bedtime. SUMAtriptan (IMITREX) 100 mg tablet Take one tab by month with onset of headache. Can repeat in 2 hrs. Max of 2 tabs in 24 hrs No current facility-administered medications for this visit. Social History Tobacco Use Smoking status: Never Passive exposure: Never Smokeless tobacco: Never Tobacco comments: No smoking in childhood home. No significant ETS in household since. Vaping Use Vaping status: Never Used Substance Use Topics Alcohol use: Yes Alcohol/week: 1.0 standard drink of alcohol Types: 1 Glasses of Wine (5oz) per week Comment: socially Drug use: No Family History Problem Relation Age of Onset Coronary Artery Disease Mother Fatal [place] in her 80s Diabetes Father ADULT ONSET Coronary Artery Disease Father in his 80s No Known Problems Sister Hypertension Brother Coronary Artery Disease Brother 56 Prostate Cancer Brother No Known Problems Maternal Grandmother No Known Problems Maternal Grandfather No Known Problems Paternal Grandmother No Known Problems Paternal Grandfather COPD No Family History No lung cancer. ROS: Constitutional: No drenching night sweats. Normal appetite. No unexplained weight loss. No significant fatigue. Neuro: No recent CARBAJAL, vertigo, dizziness or imbalance. No symptoms of sensory neuropathy. HEENT: No recent change in voice, vision or hearing. Resp: See above. CVS: No exertional chest pain, PND or orthopnea. No extremity swelling/edema. GI: No dysgeusia. No symptoms of stomatitis. No dysphagia or odynophagia. No reflux, n/v, change in bowel habits. No abdominal pain, bloating or distension. No black or bloody stools. : No dysuria or gross hematuria. No symptoms of bladder outlet obstruction. Endo: No hot flashes. No polyuria or polydipsia. No heat or cold intolerance. Musculoskeletal: No bone, back, joint and muscular pain. Derm: No current rash. No history of jaundice. No diffuse pruritis. Heme: No unusual bleeding and unexplained bruising. Psych: Normal mood. PHYSICAL EXAM: Vitals: Blood pressure 165/103, pulse 105, temperature 37.2 C (99 F), temperature source Temporal, height 158.2 cm (5' 2.3), weight 64.2 kg (141 lb 8 oz), SpO2 97%. Well-appearing and in no acute distress. EYES: Sclerae are anicteric bilaterally. RESPIRATORY: Inspiratory breath sounds are of normal intensity in all cowan. CARDIOVASCULAR: Rhythm is regular. ABDOMEN: The abdomen is nondistended. Extremities: No swelling or edema. SKIN: No jaundice or rash. No petechiae. ASSESSMENT/PLAN: (I27.82) Chronic pulmonary embolism without acute cor pulmonale, unspecified pulmonary embolism type (HCC) Assessment: -Patient is an 79-year-old active female with a past medical history as outlined above. Diagnosed with bilateral below-knee DVT with multiple pulmonary emboli. No clear provoking factors other than possible UTI/viral syndrome proceeding. Did have positive testing for COVID August 2023. -Reviewed the results of her breast imaging. She will require 6-month follow-up. -She has been off anticoagulation for 3 months. -Acute respiratory tract infection associated with fever. Potentially flu or COVID. -I discussed with her that she may need ongoing anticoagulation. Explained we will obtain a D-dimer in about a month when she is healed up from the recent laceration she sustained and the acute current illness. Plan: -Urgent care today for influenza, RSV and COVID testing. -Check D-dimer in about a month. -Needs repeat breast imaging in about 6 months which can be ordered by her PCPs team. Portions of this documentation were copied and pasted from my previous office visit note dated 05/21/2024 in order to provide a cohesive continuity of the history. The note has been reviewed and edited and updated as necessary. I spent a total of 20 minutes on the date of the service which included preparing to see the patient, [id number] patient care, completing clinical documentation, obtaining and/or reviewing separately obtained history, performing a medically appropriate examination, communicating with other HCPs (not separately reported), and communicating results to the patient/family/caregiver. Cornel Clark DO documented in this encounter [facility] 01-15-2025 Note [facility] 01-14-2025 Note Addended by: ALAN VIGIL on: 01/14/2025 02:48 PM Modules accepted: Level of Service [facility] 01-14-2025 Miscellaneous Notes Addended by: ALAN VIGIL on: 01/14/2025 02:48 PM Modules accepted: Level of Service documented in this encounter [facility] 01-14-2025 Note [facility] 01-14-2025 History of Present illness Narrative Chief Complaint Patient presents with: Follow Up: Right arm wound HPI Norma Ferris is a 79 year old female who presents here today for Above Complaints.. Patient present today for follow up of right arm. Patient was on cruise January 04 and the elevator door closed on her right forearm. [facility] her forearm after cleaning and gave her a tetanus shot. The sutures were removed January 12. Patient denies pus and swelling, but has noticed some redness and bruising. Patient denies fever, chills, chest pain and SOB. Past medical history, appointments, medications, allergies reviewed. 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 Duarte at [facility]. 08/18/[address] Fischer at [facility] Chronic throat clearing 02/01/2018 Ectopic gastric mucosa of multiple sites 05/06/[address] Granado 04/2022 Elevated fasting blood sugar 08/14/2018 Encounter for gynecological examination without abnormal finding 07/20/2016 Sees [facility]. Essential hypertension 07/20/2016 GERD without esophagitis 01/14/2008 Hemorrhoids 03/03/2017 Hiatal hernia History of pulmonary embolus (PE) 04/08/202404/2024: 4 of them History of pulmonary embolus (PE) 04/08/202404/2024: 4 of them, to be on anticoagulation for 6 months. History of recurrent UTIs 07/19/2018 History of subdural hematoma 03/03/2017 After a fall Hypoxia 04/15/2024 After PE's 04/2024 Lichen sclerosus et atrophicus 03/03/2017 Living will on file at physician's office 01/16/2023 DPA: Nate (Son) Juanitago 03/21/[address] Duarte at [facility]. Medicare annual wellness visit, subsequent 08/14/2018 Medicare Part B: 06/06/2008 last done: 08/23/2019 Migraine without aura and without status migrainosus, not intractable 07/20/2016 Mixed hyperlipidemia 01/14/2008 Postmenopausal atrophic vaginitis 06/06/2012 Pulmonary nodules 10/03/201609/2016, follow uo CT in a year, 08/[address] Zheng Right thyroid nodule 10/03/2016 Had benign biopsy 09/2016 at [facility] Seasonal allergies 07/20/2016 Sinus arrhythmia Spinal stenosis, lumbar region, without neurogenic claudication [...] of Onset Coronary Artery Disease Mother Fatal [place] in her 80s Diabetes Father ADULT ONSET Coronary Artery Disease Father in his 80s No Known Problems Sister Hypertension Brother Coronary Artery Disease Brother 56 Prostate Cancer Brother No Known Problems Maternal Grandmother No Known Problems Maternal Grandfather No Known Problems Paternal Grandmother No Known Problems Paternal Grandfather COPD No Family History No lung cancer. Patient Allergies ALLERGIES Allergen Reactions Willis Inhibitors Cough Carafate [Sucralfat* Diarrhea Eliquis [Apixaban] Other: See Comments Nausea, decreased appetite and chills Protonix [Pantopraz* Other: See Comments Stomach pain Current Medications Current Outpatient Medications on File Prior to Visit Medication Sig warfarin (COUMADIN) 5 mg tablet Starting today 08/12/24 have patient start taking 5 mg Mon, Wed, Thur, Fri, Sun and 7.5 mg on , Mon. enoxaparin (LOVENOX) 40 mg/0.4 mL Do one shot daily till therapeutic on coumadin and intructed by provider to stop. Start on Monday07/20/2024 (Patient not taking: Reported on 08/21/2024) ondansetron orally disintegrating (ZOFRAN ODT) 4 mg disintegrating tablet Take 1 tablet by mouth every 8 hours as needed for nausea/vomiting. estradiol (ESTRACE) 0.01 % (0.1 mg/gram) vaginal cream Use 1 g vaginally every other day. At bedtime simvastatin (ZOCOR) 10 mg tablet Take 1 tablet by mouth daily at bedtime. SUMAtriptan (IMITREX) 100 mg tablet Take one tab by month with onset of headache. Can repeat in 2 hrs. Max of 2 tabs in 24 hrs No current facility-administered medications on file prior to visit. Social History Social History Tobacco Use Smoking status: Never Passive exposure: Never Smokeless tobacco: Never Tobacco comments: No smoking in childhood home. No significant ETS in household since. Vaping Use Vaping status: Never Used Substance Use Topics Alcohol use: Yes Alcohol/week: 1.0 standard drink of alcohol Types: 1 Glasses of Wine (5oz) per week Comment: socially Drug use: No Review of Symptoms REVIEW OF SYSTEMS GENERAL: No weight loss, malaise or fevers RESPIRATORY: Negative for cough, hemoptysis, wheezing, COPD, dyspnea or shortness of breath CARDIOVASCULAR: Negative for chest pain, leg swelling, hypertension, CHF or palpitations EXAM: BP 150/70 Pulse 107 Wt 65 kg (143 lb 4.8 oz) BMI 26.21 kg/m General Appearance: Well appearing, alert, in no acute distress, well-hydrated, well nourished.. Skin: Skin color, texture, turgor normal, no suspicious rashes or lesions; positive: right forearm small linear cut with small amount of bruising Lungs: Lungs clear to auscultation. No wheezing, rhonchi, rales.. Heart: RRR without murmur, gallop, or rubs. No ectopy. Health Maintenance List Depression Screening Never done Advance Directive Discussion due on 11/06/2024 Covid-19 Vaccine( season) due on 01/15/2025 Anxiety Screening due on 08/21/2025 Diabetes Screening due on 05/21/2027 DTaP,Tdap,Td Vaccine(3 - Td or Tdap) due on 09/09/2028 Bone Density Screening Completed Influenza Vaccine Completed RSV Vaccine Completed Shingrix Vaccine Completed Pneumococcal Vaccine: 50+ Completed Colorectal Cancer Screening Discontinued ASSESSMENT/PLAN: 1. Laceration of right upper extremity, subsequent encounter - ICD9: V58.89, 884.0, ICD10: S41.111D -Skin intact and well healed no further treatment needed. Follow up as needed. Alan Vigil APRN.[facility] documented in this encounter [facility] 01-14-2025 Telephone encounter Note Patient called and confirmed [facility] Work Phone: 01-14-2025 Miscellaneous Notes Patient called and confirmed 1st attempt. Message left for patient to contact office for message below. Patient is scheduled for 07/09. Please have patient confirm date/time or reschedule. Thank you. Orders filed. Cornel Clark DO Can let her know mammogram and US show stable findings left breast. Benign but radiologist recommended one more 6 month follow up diagnostic left mammogram and US to assure stability. Please pend order and schedule. Cornel Clark DO documented in this encounter [facility] 01-07-2025 Telephone encounter Note 1st attempt. Message left for patient to contact office for message below. Patient is scheduled for 07/09. Please have patient confirm date/time or reschedule. [facility] 01-02-2025 Telephone encounter Note Thank you. Orders filed. Cornel Clark DO [facility] 01-02-2025 Telephone encounter Note Can let her know mammogram and US show stable findings left breast. Benign but radiologist recommended one more 6 month follow up diagnostic left mammogram and US to assure stability. Please pend order and schedule. Cornel Clark DO [facility] 01-01-2025 History of Present illness Narrative Radiology Service Progress Note PATIENT NAME: Norma Ferris DATE OF SERVICE: January 01, 2025 TIME: 11:42 AM PATIENT IDENTITY VERIFICATION COMPLETED USING TWO (2) IDENTIFIERS: Name and Date of confirmed by patient verbally. FALL SCREENING: Has the patient had 2 falls in the last year or 1 fall with injury or currently using an Ambulatory Assistive Device (Walker, Cane, Wheelchair, Crutches, etc.)? No PATIENT GENDER DATA: Assigned female at . status: : No status: NO. PATIENT RELEVANT IMPLANT DATA REVIEWED: Not Applicable PATIENT PRESENTS WITH AN IMPLANTABLE OR ATTACHED ROLLER PICKER: No RADIOLOGY DEPARTMENT: Ultrasound PERIPHERAL IV DATA: Not applicable SIGNED BY: Nelda Juarez RDMS January 01, 2025 11:42 AM documented in this encounter [facility] 01-01-2025 Note [facility] 01-01-2025 History of Present illness Narrative Radiology Service Progress Note PATIENT NAME: Norma Ferris DATE OF SERVICE: January 01, 2025 TIME: 8:43 AM PATIENT IDENTITY VERIFICATION COMPLETED USING TWO (2) IDENTIFIERS: Name and Date of confirmed by patient verbally. FALL SCREENING: Has the patient had 2 falls in the last year or 1 fall with injury or currently using an Ambulatory Assistive Device (Walker, Cane, Wheelchair, Crutches, etc.)? No PATIENT GENDER DATA: Assigned female at . status: : No status: NO. PATIENT RELEVANT IMPLANT DATA REVIEWED: Not Applicable PATIENT PRESENTS WITH AN IMPLANTABLE OR ATTACHED ROLLER PICKER: No RADIOLOGY DEPARTMENT: Mammography PERIPHERAL IV DATA: Not applicable SIGNED BY: RT Aj(R) January 01, 2025 8:43 AM documented in this encounter [facility] 01-01-2025 Note [facility] 12-06-2024 Telephone encounter Note Pt called and is notified of providers mesage and instructions. Pt voices understanding. Naye Jackson RN [facility] 12-06-2024 Miscellaneous Notes Pt called and is notified of providers mesage and instructions. Pt voices understanding. Naye Jackson RN Let patient know I don't have a concern with the meds. I just don't prescribe them and suspect ENT does. Pt called and is notified of providers results and instructions. Pt voices understanding. She was asking if Dr Bonilla doesn't approve of the medications and that's why he won't prescribe them. I told her it could be a medication that is managed by a specialist. She states because she sees Dr Bonilla all the time, and she hasn't seen Dr Brown in 4 or 5 years. Please call and advise. Naye Jackson RN Left message for pt to contact office. Clarita Neely LPN Let patient know I received office notes from Dr. Granado. The two medications he suggested I do not prescribe. However I know she sees Dr. Brown for her allergies and he may be willing to prescribe the Salagen or Evoxac to see if it helps reduce her cough. She should know that I looked up these meds and then need to be take 3-4 times a day. documented in this encounter [facility] 12-06-2024 Telephone encounter Note Let patient know I don't have a concern with the meds. I just don't prescribe them and suspect ENT does. [facility] 12-06-2024 Telephone encounter Note Pt called and is notified of providers results and instructions. Pt voices understanding. She was asking if Dr Bonilla doesn't approve of the medications and that's why he won't prescribe them. I told her it could be a medication that is managed by a specialist. She states because she sees Dr Bonilla all the time, and she hasn't seen Dr Brown in 4 or 5 years. Please call and advise. Naye Jackson, ALONDRA [facility] 12-06-2024 Telephone encounter Note Left message for pt to contact office. Clarita Neely LPN [facility] 12-05-2024 Telephone encounter Note Let patient know I received office notes from Dr. Granado. The two medications he suggested I do not prescribe. However I know she sees Dr. Brown for her allergies and he may be willing to prescribe the Salagen or Evoxac to see if it helps reduce her cough. She should know that I looked up these meds and then need to be take 3-4 times a day. [facility] 10-09-2024 Telephone encounter Note Patient notified and voiced understanding. Dodie Vazquez MA [facility] 10-09-2024 Miscellaneous Notes Patient notified and voiced understanding. Dodie Vazquez MA Advise patient she needs to be on the coumadin until 10/13/2024 and can then actually stop it. Therefore would not need the INR on 10/17/2024. Patient notified and voiced understanding. Patient mentioned that at her last visit she was told she would be probably be done with Coumadin early October. Patient is wanting to know when she will be finished with the medication. Cataract surgery on October 14 and . Dodie Vazquez MA Advise patient to take a total of 7.5 mg just today and then go back to taking 7.5 mg on Mon and and 5 mg all other days. Get next INR at [facility] next 10/17/2024. Current INR: 1.2 Current dose: 7.5 Monday/Mon and 5 mg all other days. omponent Ref Range & Units 9:35 AM (10/09/24) 9 d ago (09/30/24) 3 wk ago (09/16/24) 1 mo ago (09/09/24) 1 mo ago (09/02/24) 1 mo ago (08/29/24) 1 mo ago (08/27/24) PT Sec <13.1 sec 12.1 47.1 High 25.8 High 19.3 High 24.3 High 17.8 High 21.1 High INR 0.9 - 1.3 1.2 5.2 High CM 2.7 High CM 2.0 High CM 2.5 High CM 1.8 High CM 2.2 High Dodie Vazquez MA documented in this encounter [facility] 10-09-2024 Telephone encounter Note Advise patient she needs to be on the coumadin until 10/13/2024 and can then actually stop it. Therefore would not need the INR on 10/17/2024. [facility] 10-09-2024 Telephone encounter Note Patient notified and voiced understanding. Patient mentioned that at her last visit she was told she would be probably be done with Coumadin early October. Patient is wanting to know when she will be finished with the medication. Cataract surgery on October 14 and . Dodie Vazquez MA [facility] 10-09-2024 Telephone encounter Note Advise patient to take a total of 7.5 mg just today and then go back to taking 7.5 mg on Mon and and 5 mg all other days. Get next INR at [facility] next 10/17/2024. [facility] 10-09-2024 Telephone encounter Note Current INR: 1.2 Current dose: 7.5 Monday/Mon and 5 mg all other days. omponent Ref Range & Units 9:35 AM (10/09/24) 9 d ago (09/30/24) 3 wk ago (09/16/24) 1 mo ago (09/09/24) 1 mo ago (09/02/24) 1 mo ago (08/29/24) 1 mo ago (08/27/24) PT Sec <13.1 sec 12.1 47.1 High 25.8 High 19.3 High 24.3 High 17.8 High 21.1 High INR 0.9 - 1.3 1.2 5.2 High CM 2.7 High CM 2.0 High CM 2.5 High CM 1.8 High CM 2.2 High Dodie Vazquez MA [facility] 09-30-2024 Telephone encounter Note Noted. [facility] 09-30-2024 Miscellaneous Notes Noted. Patient indicated that Dr. Gonzalez is doing the surgery she contacted there office and she doesn't have to stop the coumadin. Patient did mentioned she forgot that she had cortizone shot 09/26/2024. That could be the reason for the increased INR. Patient having her INR rechecked next . And her surgery is 10/14. Dodie Vazquez MA Advise patient she needs to find out from the surgeon if she needs to be off the coumadin for the surgery. If so, how many days prior. We would need to bridge her with the Lovenox shots then from the time she is off it up to the day of surgery and then back on it the next day and either restart the coumadin or stay on the Lovenox till the second surgery is complete and then restart the coumadin and stop the Lovenox once the INR is between 2-3. Patient calls and states that she has cataract surgery on 10/14. Patient asking if she needs to do anything special for this since she is on Coumadin? Patient worried that surgery is going to mess up INR. Second cataract surgery is on 10/25. Please review and advise, Rylie Kaur RN documented in this encounter [facility] 09-30-2024 Telephone encounter Note Patient indicated that Dr. Gonzalez is doing the surgery she contacted there office and she doesn't have to stop the coumadin. Patient did mentioned she forgot that she had cortizone shot 09/26/2024. That could be the reason for the increased INR. Patient having her INR rechecked next . And her surgery is 10/14. Dodie Vazquez MA [facility] 09-30-2024 Telephone encounter Note Advise patient she needs to find out from the surgeon if she needs to be off the coumadin for the surgery. If so, how many days prior. We would need to bridge her with the Lovenox shots then from the time she is off it up to the day of surgery and then back on it the next day and either restart the coumadin or stay on the Lovenox till the second surgery is complete and then restart the coumadin and stop the Lovenox once the INR is between 2-3. [facility] 09-30-2024 Telephone encounter Note Patient calls and states that she has cataract surgery on 10/14. Patient asking if she needs to do anything special for this since she is on Coumadin? Patient worried that surgery is going to mess up INR. Second cataract surgery is on 10/25. Please review and advise, Rylie Kaur RN [facility] 09-30-2024 Telephone encounter Note Spoke with patient and gave instructions. She voiced understanding. Dodie Vazquez MA [facility] 09-30-2024 Miscellaneous Notes Spoke with patient and gave instructions. She voiced understanding. Dodie Vazquez MA Advise patient to hold her coumadin today and tomorrow. Starting Wed go to taking 7.5 mg on Tues and Sat and 5 mg all other days. Needs INR Next Mon at [facility]. [facility] Ledesma- [facility] lab- reporting high INR 5.2. See previous message below. Phoned pt for findings: No unusual bleeding or bruising No recent AB's No diet changes but did have 2 glasses of wine and Monday and also Monday. No missed or xtra doses. Please advise patient. Current: INR 5.2 Current dose: Current dose of coumadin is: 7.5 mg Tues/Thurs/Sat, 5 mg all other days. omponent Ref Range & Units 9:41 AM (09/30/24) 2 wk ago (09/16/24) 3 wk ago (09/09/24) 4 wk ago (09/02/24) 1 mo ago (08/29/24) 1 mo ago (08/27/24) 1 mo ago (08/19/24) PT Sec <13.1 sec 47.1 High 25.8 High 19.3 High 24.3 High 17.8 High 21.1 High 20.1 High INR 0.9 - 1.3 5.2 High 2.7 High CM 2.0 High CM 2.5 High CM 1.8 High CM 2.2 High CM 2. documented in this encounter [facility] 09-30-2024 Telephone encounter Note Advise patient to hold her coumadin today and tomorrow. Starting Wed go to taking 7.5 mg on and Sat and 5 mg all other days. Needs INR Next Mon at [facility]. [facility] 09-30-2024 Telephone encounter Note Miles Ye [facility] lab- reporting high INR 5.2. See previous message below. Phoned pt for findings: No unusual bleeding or bruising No recent AB's No diet changes but did have 2 glasses of wine and Monday and also Monday. No missed or xtra doses. Please advise patient. [facility] 09-30-2024 Telephone encounter Note Current: INR 5.2 Current dose: Current dose of coumadin is: 7.5 mg Tues/Thurs/Sat, 5 mg all other days. omponent Ref Range & Units 9:41 AM (09/30/24) 2 wk ago (09/16/24) 3 wk ago (09/09/24) 4 wk ago (09/02/24) 1 mo ago (08/29/24) 1 mo ago (08/27/24) 1 mo ago (08/19/24) PT Sec <13.1 sec 47.1 High 25.8 High 19.3 High 24.3 High 17.8 High 21.1 High 20.1 High INR 0.9 - 1.3 5.2 High 2.7 High CM 2.0 High CM 2.5 High CM 1.8 High CM 2.2 High CM 2. [facility] 2024 Telephone encounter Note Patient notified and voiced understanding. Dodie Vazquez MA [facility] 2024 Miscellaneous Notes Patient notified and voiced understanding. Dodie Vazquez MA Patient to continue same coumadin dosing and get repeat INR at [facility] in 2 weeks. Current INR: 2.7 Current dose of coumadin is: 7.5 mg Tues/Thurs/Sat, 5 mg all other days. Last INR: 2.0 09/09/2024 Component Ref Range & Units 8:42 AM (09/16/24) 7 d ago (09/09/24) 2 wk ago (09/02/24) 2 wk ago (08/29/24) 2 wk ago (08/27/24) 4 wk ago (08/19/24) 1 mo ago (08/12/24) PT Sec <13.1 sec 25.8 High 19.3 High 24.3 High 17.8 High 21.1 High 20.1 High 21.8 High INR 0.9 - 1.3 2.7 High 2.0 High CM 2.5 High CM 1.8 High CM 2.2 High CM 2.1 High CM 2.3 High CM Comment: Vitamin K Antagonist (VKA) Therapeutic Range: INR 2 to 3 (Target Dodie Vazquez MA documented in this encounter [facility] 2024 Telephone encounter Note Patient to continue same coumadin dosing and get repeat INR at [facility] in 2 weeks. [facility] 2024 Telephone encounter Note Current INR: 2.7 Current dose of coumadin is: 7.5 mg Tues/Thurs/Sat, 5 mg all other days. Last INR: 2.0 09/09/2024 Component Ref Range & Units 8:42 AM (09/16/24) 7 d ago (09/09/24) 2 wk ago (09/02/24) 2 wk ago (08/29/24) 2 wk ago (08/27/24) 4 wk ago (08/19/24) 1 mo ago (08/12/24) PT Sec <13.1 sec 25.8 High 19.3 High 24.3 High 17.8 High 21.1 High 20.1 High 21.8 High INR 0.9 - 1.3 2.7 High 2.0 High CM 2.5 High CM 1.8 High CM 2.2 High CM 2.1 High CM 2.3 High CM Comment: Vitamin K Antagonist (VKA) Therapeutic Range: INR 2 to 3 (Target Dodie Vazquez MA [facility] 09-09-2024 Telephone encounter Note Left detailed message for patient. Dodie Vazquez MA [facility] 09-09-2024 Miscellaneous Notes Left detailed message for patient. Dodie Vazquez MA Advise patient to continue current coumadin dosing and recheck INR at [facility] in a week. Current INR: 2.0 Last INR: INR 2.5 09/02/2024 Current dose of coumadin is: 7.5 mg Tues/Thurs/Sat, 5 mg all other days. Last date of dose change: 08/29/24. Previous INR (date and result): 08/29/24 INR: 1.8 Component Ref Range & Units 7:16 AM 7 d ago 11 d ago 13 d ago 3 wk ago 4 wk ago 1 mo ago PT Sec <13.1 sec 19.3 High 24.3 High 17.8 High 21.1 High 20.1 High 21.8 High 30.8 High INR 0.9 - 1.3 2.0 High 2.5 High CM 1.8 High CM 2.2 High CM 2.1 High CM 2.3 High CM 3.3 High C documented in this encounter [facility] 09-09-2024 Telephone encounter Note Advise patient to continue current coumadin dosing and recheck INR at [facility] in a week. [facility] 09-09-2024 Telephone encounter Note Current INR: 2.0 Last INR: INR 2.5 09/02/2024 Current dose of coumadin is: 7.5 mg Tues/Thurs/Sat, 5 mg all other days. Last date of dose change: 08/29/24. Previous INR (date and result): 08/29/24 INR: 1.8 Component Ref Range & Units 7:16 AM 7 d ago 11 d ago 13 d ago 3 wk ago 4 wk ago 1 mo ago PT Sec <13.1 sec 19.3 High 24.3 High 17.8 High 21.1 High 20.1 High 21.8 High 30.8 High INR 0.9 - 1.3 2.0 High 2.5 High CM 1.8 High CM 2.2 High CM 2.1 High CM 2.3 High CM 3.3 High C [facility] 09-02-2024 Telephone encounter Note Pt called and is notified of providers results and instructions. Pt voices understanding. Updated Anticoag tracker. Naye Jackson RN [facility] 09-02-2024 Miscellaneous Notes Pt called and is notified of providers results and instructions. Pt voices understanding. Updated Anticoag tracker. Naye Jackson RN Advise patient to continue same dosing and repeat INR in a week. Last INR: INR 2.5 09/02/2024 Current dose of coumadin is: 7.5 mg Tues/Thurs/Sat, 5 mg all other days. Last date of dose change: 08/29/24. Previous INR (date and result): 08/29/24 INR: 1.8 Additional Clinical Information or narrative: no documented in this encounter [facility] 09-02-2024 Telephone encounter Note Advise patient to continue same dosing and repeat INR in a week. [facility] 09-02-2024 Telephone encounter Note Last INR: INR 2.5 09/02/2024 Current dose of coumadin is: 7.5 mg Tues/Thurs/Sat, 5 mg all other days. Last date of dose change: 08/29/24. Previous INR (date and result): 08/29/24 INR: 1.8 Additional Clinical Information or narrative: no [facility] 08-29-2024 Telephone encounter Note Spoke with pt and advised her of instructions. Pt verbalizes understanding. Copy of instructions also sent to pt via [employer]. Tracker updated. Clarita Neely LPN [facility] 08-29-2024 Miscellaneous Notes Spoke with pt and advised her of instructions. Pt verbalizes understanding. Copy of instructions also sent to pt via [employer]. Tracker updated. Clarita Neely LPN Advise Norma starting today take 7.5 mg of coumadin on Thur, Sat, Tue and 5 mg all other days. Needs next lab INR at [facility] on Monday09/02/2024. Last INR: INR 1.8 08/29/2024 Current dose of coumadin is: 7.5 mg Tues and Sat and 5 mg all other days. . Previous INR (date and result): 08/27/24 2.2 Additional Clinical Information or narrative: no documented in this encounter [facility] 08-29-2024 Telephone encounter Note Advise Norma starting today take 7.5 mg of coumadin on Thur, Sat, Tue and 5 mg all other days. Needs next lab INR at [facility] on Monday09/02/2024. [facility] 08-29-2024 Telephone encounter Note Last INR: INR 1.8 08/29/2024 Current dose of coumadin is: 7.5 mg Tues and Sat and 5 mg all other days. . Previous INR (date and result): 08/27/24 2.2 Additional Clinical Information or narrative: no [facility] 08-27-2024 Telephone encounter Note Patient notified and voiced understanding. Dodie Vazquez MA [facility] 08-27-2024 Miscellaneous Notes Patient notified and voiced understanding. Dodie Vazquez MA Let patient know INR was ok. Advise her to get it repeated on at [facility] to make sure the antibiotic did not cause her to INR to go too high Current INR: 2.2 Current dose: 5 mg Mon, Wed, , Mon, Mon and 7.5 mg on , Sat. Component Ref Range & Units 11:33 AM (08/27/24) 8 d ago (08/19/24) 2 wk ago (08/12/24) 2 wk ago (08/08/24) 3 wk ago (08/05/24) 3 wk ago (08/02/24) 4 wk ago (07/29/24) PT Sec <13.1 sec 21.1 High 20.1 High 21.8 High 30.8 High 16.7 High 13.7 High 15.8 High R INR 0.9 - 1.3 2.2 High 2.1 High CM 2.3 High CM 3.3 High CM 1.7 High CM 1.4 High CM 1.5 High C documented in this encounter [facility] 08-27-2024 Telephone encounter Note Let patient know INR was ok. Advise her to get it repeated on at [facility] to make sure the antibiotic did not cause her to INR to go too high [facility] 08-27-2024 Telephone encounter Note Current INR: 2.2 Current dose: 5 mg Mon, Mon, , Mon, Mon and 7.5 mg on , Mon. Component Ref Range & Units 11:33 AM (08/27/24) 8 d ago (08/19/24) 2 wk ago (08/12/24) 2 wk ago (08/08/24) 3 wk ago (08/05/24) 3 wk ago (08/02/24) 4 wk ago (07/29/24) PT Sec <13.1 sec 21.1 High 20.1 High 21.8 High 30.8 High 16.7 High 13.7 High 15.8 High R INR 0.9 - 1.3 2.2 High 2.1 High CM 2.3 High CM 3.3 High CM 1.7 High CM 1.4 High CM 1.5 High C [facility] 08-27-2024 Telephone encounter Note Patient was notified Char Moore MA [facility] 08-27-2024 Miscellaneous Notes Patient was notified Char Moore MA Let patient know that if everything coming out is clear then it's most likely related to seasonal changes and not a sinusitis. Patient's should wait 10-12 days before being seen for possible sinus issues since in a lot of instances the body will resolve it on its own. The reason to come in sooner would be the presence of a fever for more then 5 days, sever facial pain or breathing issues. Spoke with patient and gave PCP instructions. Patient will go to the lab today. Patient indicated that her sinuses started about 1 week ago. Patient said she should have said something at her appointment last week. She has been using the Neti Pot to clear out the sinuses. She indicated that is it is coming out clear. Any other suggestions? How long she should wait for the sinuses before she should be seen. How long does it take to clear up? Dodie Vazquez MA Advise patient that you never take left over antibiotics and in fact you should never have left over antibiotics. There is a standing order for INR at our lab. Should go to [facility] today to get. In regards to her sinus issues this may have gotten better on her own without the need for meds. Closed in error. Telma Venegas LPN Pt called to let you know she has a sinus infection and she had left over medication from [address] Abebe Brown Cefdinir 300 mg to take 1 tab twice a day. Pt took 2 doses yesterday and this has help per pt. She has enough to last her thru . Pt's son is a doctor and he told her she should of not taken medication until speaking with her doctor. Her son also told her she may need to have an INR done today because she did this. Pt not due for her next INR till Monday09-02-24. Pt takes coumadin Tues and Sat 7.5 and on all other days takes 5 mg. Please advise pt on above. Telma Venegas LPN documented in this encounter [facility] 08-27-2024 Telephone encounter Note Let patient know that if everything coming out is clear then it's most likely related to seasonal changes and not a sinusitis. Patient's should wait 10-12 days before being seen for possible sinus issues since in a lot of instances the body will resolve it on its own. The reason to come in sooner would be the presence of a fever for more then 5 days, sever facial pain or breathing issues. [facility] 08-27-2024 Telephone encounter Note Spoke with patient and gave PCP instructions. Patient will go to the lab today. Patient indicated that her sinuses started about 1 week ago. Patient said she should have said something at her appointment last week. She has been using the Neti Pot to clear out the sinuses. She indicated that is it is coming out clear. Any other suggestions? How long she should wait for the sinuses before she should be seen. How long does it take to clear up? Dodie Vazquez MA [facility] 08-27-2024 Telephone encounter Note Advise patient that you never take left over antibiotics and in fact you should never have left over antibiotics. There is a standing order for INR at our lab. Should go to [facility] today to get. In regards to her sinus issues this may have gotten better on her own without the need for meds. [facility] 08-27-2024 Telephone encounter Note Closed in error. Telma Venegas LPN [facility] 08-27-2024 Telephone encounter Note Pt called to let you know she has a sinus infection and she had left over medication from [address] Abebe Brown Cefdinir 300 mg to take 1 tab twice a day. Pt took 2 doses yesterday and this has help per pt. She has enough to last her thru . Pt's son is a doctor and he told her she should of not taken medication until speaking with her doctor. Her son also told her she may need to have an INR done today because she did this. Pt not due for her next INR till Monday09-02-24. Pt takes coumadin Tues and Sat 7.5 and on all other days takes 5 mg. Please advise pt on above. Telma Veneags LPN [facility] 08-21-2024 Instructions Rangel Bonilla MD - 08/21/2024 5:36 PM EDT Please get labs and urine test done on or after 02/07/2025 prior to your next visit. documented in this encounter [facility] 08-21-2024 History of Present illness Narrative Chief Complaint Patient presents with: F/U 6 months HPI Norma Ferris is a 78 year old female who presents here today for 6 month follow up. Patient with Hx of HTN, elevated fasting blood sugar. GERD, hyperlipidemia, Chronic back pain, frequent UTI's, seasonal allergies as well as those reviewed and addressed below and in ROS. patient currently on anticoagulation for PE's Patient sees [facility] last visit 04/2024. Patient was switched to coumadin from Eliquis and since being on this she is no longer having the nausea. Needs to be on anticoagulation through the end of Sep 2024. Past medical history, appointments, medications, allergies reviewed. 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 Duarte at [facility]. 08/18/[address] Fischer at [facility] Chronic throat clearing 02/01/2018 Ectopic gastric mucosa of multiple sites 05/06/[address] Granado 04/2022 Elevated fasting blood sugar 08/14/2018 Encounter for gynecological examination without abnormal finding 07/20/2016 Sees [facility]. Essential hypertension 07/20/2016 GERD without esophagitis 01/14/2008 Hemorrhoids 03/03/2017 Hiatal hernia History of pulmonary embolus (PE) 04/08/202404/2024: 4 of them History of pulmonary embolus (PE) 04/08/202404/2024: 4 of them, to be on anticoagulation for 6 months. History of recurrent UTIs 07/19/2018 History of subdural hematoma 03/03/2017 After a fall Hypoxia 04/15/2024 After PE's 04/2024 Lichen sclerosus et atrophicus 03/03/2017 Living will on file at physician's office 01/16/2023 DPA: Nate (Son) Lumbago 03/21/[address] Duarte at [facility]. Medicare annual wellness visit, subsequent 08/14/2018 Medicare Part B: 06/06/2008 last done: 08/23/2019 Migraine without aura and without status migrainosus, not intractable 07/20/2016 Mixed hyperlipidemia 01/14/2008 Postmenopausal atrophic vaginitis 06/06/2012 Pulmonary nodules 10/03/201609/2016, follow uo CT in a year, 08/[address] Zheng Right thyroid nodule 10/03/2016 Had benign biopsy 09/2016 at [facility] Seasonal allergies 07/20/2016 Sinus arrhythmia Spinal stenosis, lumbar region, without neurogenic claudication [...] of Onset Coronary Artery Disease Mother Fatal [place] in her 80s Diabetes Father ADULT ONSET Coronary Artery Disease Father in his 80s No Known Problems Sister Hypertension Brother Coronary Artery Disease Brother 56 Prostate Cancer Brother No Known Problems Maternal Grandmother No Known Problems Maternal Grandfather No Known Problems Paternal Grandmother No Known Problems Paternal Grandfather COPD No Family History No lung cancer. Patient Allergies ALLERGIES Allergen Reactions Willis Inhibitors Cough Carafate [Sucralfat* Diarrhea Eliquis [Apixaban] Other: See Comments Nausea, decreased appetite and chills Protonix [Pantopraz* Other: See Comments Stomach pain Current Medications Current Outpatient Medications on File Prior to Visit Medication Sig warfarin (COUMADIN) 5 mg tablet Starting today 08/12/24 have patient start taking 5 mg Mon, Wed, , Mon, Mon and 7.5 mg on , Mon. enoxaparin (LOVENOX) 40 mg/0.4 mL Do one shot daily till therapeutic on coumadin and intructed by provider to stop. Start on Monday07/20/2024 ondansetron orally disintegrating (ZOFRAN ODT) 4 mg disintegrating tablet Take 1 tablet by mouth every 8 hours as needed for nausea/vomiting. estradiol (ESTRACE) 0.01 % (0.1 mg/gram) vaginal cream Use 1 g vaginally every other day. At bedtime simvastatin (ZOCOR) 10 mg tablet Take 1 tablet by mouth daily at bedtime. SUMAtriptan (IMITREX) 100 mg tablet Take one tab by month with onset of headache. Can repeat in 2 hrs. Max of 2 tabs in 24 hrs No current facility-administered medications on file prior to visit. Social History Social History Tobacco Use Smoking status: Never Passive exposure: Never Smokeless tobacco: Never Tobacco comments: No smoking in childhood home. No significant ETS in household since. Vaping Use Vaping status: Never Used Substance Use Topics Alcohol use: Yes Alcohol/week: 1.0 standard drink of alcohol Types: 1 Glasses of Wine (5oz) per week Comment: socially Drug use: No Review of Symptoms REVIEW [...] syncope, paralysis, seizures or tremors EXAM: BP 148/96 (BP Site: Right Arm, BP Position: Sitting, BP Cuff Size: Regular Adult) Pulse 66 Resp 18 Wt 61.2 kg (135 lb) SpO2 96% BMI 24.69 kg/m BP 130/77 Pulse 66 Resp 18 Wt 61.2 kg (135 lb) SpO2 96% BMI 24.69 kg/m General Appearance: Well appearing, alert, in [...] clubbing or cyanosis. Good capillary refill. . Peripheral Pulses: Normal. Health Maintenance List Depression Screening Never done Anxiety Screening Never done BP Controlled (<130/80) due on 01/23/2025 Annual PCP Team Chronic Disease Visit due on 07/18/2025 Diabetes Screening due on 05/21/2027 DTaP,Tdap,Td Vaccine(3 - Td or Tdap) due on 09/09/2028 Bone Density Screening Completed Influenza Vaccine Completed Advance Directive Discussion Completed RSV Vaccine Completed Shingrix Vaccine Completed Covid-19 Vaccine Completed Pneumococcal Vaccine: 65+ Completed Colorectal Cancer Screening Discontinued Data reviewed Latest Ref Rng 01/17/2024 05/21/2024 Total Cholesterol, Nonfasting <200 mg/dL 234 (H) 202 (H) Triglycerides, Nonfasting <150 mg/dL 86 166 (H) HDL Cholesterol, Nonfasting >39 mg/dL 86 78 LDL Cholesterol, Nonfasting <100 mg/dL 131 (H) 91 Non HDL Cholesterol, Nonfasting <130 mg/dL 148 (H) 124 VLDL Cholesterol, Nonfasting <30 mg/dL 17 33 (H) Total Chol/HDL Ratio, Nonfasting <5.10 mg/dL 2.72 2.59 LDL/HDL Ratio, Nonfasting <2.54 mg/dL 1.52 1.17 Hemoglobin A1C 4.3 - 5.6 % 5.4 4.9 Estimated Average Glucose mg/dL 108 94 Legend: (H) High A/P ASSESSMENT/PLAN: 1. Essential hypertension - ICD9: 401.9, ICD10: I10 (primary diagnosis) - Controlled - Continue current medications - Recommend home blood pressure monitoring, to bring results to next visit - Encouraged sodium restriction, DASH or Mediterranean diet - Recommend regular aerobic exercise 2. Elevated fasting blood sugar - ICD9: 790.21, ICD10: R73.01 - las A1c was good. Will not repeat today. 3. GERD without esophagitis - ICD9: 530.81, ICD10: K21.9 - managed by diet and Nexium 20 mg a day when needed. 4. Migraine without aura and without status migrainosus, not intractable - ICD9: 346.10, ICD10: G43.009 - clinically stable 5. Mixed hyperlipidemia - ICD9: 272.2, ICD10: E78.2 - Controlled - Continue current medications - Counseled on healthy diet and regular exercise 6. History of pulmonary embolus (PE) - ICD9: V12.55, ICD10: Z86.711 - patient to continue with Coumadin till End of Sep or no later then 10/13/2024. F/u 6 months extensive check CMP, Lipid, UA, A1c, B12, Mg, CBC prior Rangel Bonilla MD documented in this encounter [facility] 08-21-2024 Note [facility] 08-19-2024 Telephone encounter Note Pt. informed. [facility] 08-19-2024 Miscellaneous Notes Pt. informed. Left detailed message for patient with instructions. Asked patient to call back. Dodie Vazquez MA Advise patient to continue the same dosing of coumadin and repeat INR in 2 weeks. Current INR: 2.1 Current dose: 5 mg Mon, Wed, , Mon, Mon and 7.5 mg on , Mon. Ref Range & Units 7:12 AM (08/19/24) 7 d ago (08/12/24) 11 d ago (08/08/24) 2 wk ago (08/05/24) 2 wk ago (08/02/24) 3 wk ago (07/29/24) 3 wk ago (07/23/24) PT Sec <13.1 sec 20.1 High 21.8 High 30.8 High 16.7 High 13.7 High 15.8 High R 15.1 High R INR 0.9 - 1.3 2.1 High 2.3 High CM 3.3 High CM 1.7 High CM 1.4 High CM 1.5 High CM 1.5 High CM Comment: Vitamin K Antagonist (VKA) Therapeutic Range: INR 2 to 3 (Target Last INR: INR 2.3 08/12/2024 Current dose of coumadin is: Held dose on 08/08, hold dosage 08/08, starting 08/09 take 5 mg Fri, 7.5 mg Sat and 5 mg Sun. Stop Lovenox due to INR being above 3. Last date of dose change: 08/08/24. Previous INR (date and result): 3.3 on 08/08/24. documented in this encounter [facility] 08-19-2024 Telephone encounter Note Left detailed message for patient with instructions. Asked patient to call back. Dodie Vazquez MA [facility] 08-19-2024 Telephone encounter Note Advise patient to continue the same dosing of coumadin and repeat INR in 2 weeks. [facility] 08-19-2024 Telephone encounter Note Current INR: 2.1 Current dose: 5 mg Mon, Mon, , Fri, Sun and 7.5 mg on , Sat. Ref Range & Units 7:12 AM (08/19/24) 7 d ago (08/12/24) 11 d ago (08/08/24) 2 wk ago (08/05/24) 2 wk ago (08/02/24) 3 wk ago (07/29/24) 3 wk ago (07/23/24) PT Sec <13.1 sec 20.1 High 21.8 High 30.8 High 16.7 High 13.7 High 15.8 High R 15.1 High R INR 0.9 - 1.3 2.1 High 2.3 High CM 3.3 High CM 1.7 High CM 1.4 High CM 1.5 High CM 1.5 High CM Comment: Vitamin K Antagonist (VKA) Therapeutic Range: INR 2 to 3 (Target Last INR: INR 2.3 08/12/2024 Current dose of coumadin is: Held dose on 08/08, hold dosage 08/08, starting 08/09 take 5 mg Fri, 7.5 mg Sat and 5 mg Sun. Stop Lovenox due to INR being above 3. Last date of dose change: 08/08/24. Previous INR (date and result): 3.3 on 08/08/24. [facility] 08-12-2024 Telephone encounter Note The following approved medication requests have been transmitted electronically. Requested Prescriptions Signed Prescriptions Disp Refills warfarin (COUMADIN) 5 mg tablet 60 tablet 5 Sig: Starting today 08/12/24 have patient start taking 5 mg Mon, Wed, Thur, Fri, Sun and 7.5 mg on Tues, Sat. Authorizing Provider: RANGEL BONILLA MD [facility] 08-12-2024 Miscellaneous Notes The following approved medication requests have been transmitted electronically. Requested Prescriptions Signed Prescriptions Disp Refills warfarin (COUMADIN) 5 mg tablet 60 tablet 5 Sig: Starting today 08/12/24 have patient start taking 5 mg Mon, Wed, Thur, Fri, Sun and 7.5 mg on Tues, Sat. Authorizing Provider: RANGEL BONILLA MD Pt called in and reports she called to get Rx refilled but [facility] pharmacy said provider needs to send in a new prescription. He dose has changed so much from last time it was sent in that it would not be time for it to be refilled. Increased from 30 tablets to 60, as she has to take 1 1/2 some days. Did not know if this is the amount provider wants sent in. The patient has been identified by name and date of : Yes Caregiver verified no other encounters exist for this prescription request: Yes Caregiver confirmed with patient/requestor that no other refills are due, in the near future, with this provider at this time: Yes The last office visit in the department: 07/18/2024 Does the patient have a future office visit with this provider/department: Yes 08/21/2024 Requested Prescriptions Pending Prescriptions Disp Refills warfarin (COUMADIN) 5 mg tablet 60 tablet 5 Sig: Starting today 08/12/24 have patient start taking 5 mg Mon, Wed, Thur, Fri, Sun and 7.5 mg on Tues, Sat. Naye Jackson RN August 12, 2024 4:17 PM documented in this encounter [facility] 08-12-2024 Telephone encounter Note Pt called in and reports she called to get Rx refilled but [facility] pharmacy said provider needs to send in a new prescription. He dose has changed so much from last time it was sent in that it would not be time for it to be refilled. Increased from 30 tablets to 60, as she has to take 1 1/2 some days. Did not know if this is the amount provider wants sent in. The patient has been identified by name and date of : Yes Caregiver verified no other encounters exist for this prescription request: Yes Caregiver confirmed with patient/requestor that no other refills are due, in the near future, with this provider at this time: Yes The last office visit in the department: 07/18/2024 Does the patient have a future office visit with this provider/department: Yes 08/21/2024 Requested Prescriptions Pending Prescriptions Disp Refills warfarin (COUMADIN) 5 mg tablet 60 tablet 5 Sig: Starting today 08/12/24 have patient start taking 5 mg Mon, Wed, Thur, Fri, Sun and 7.5 mg on Tues, Sat. Naye Jackson RN August 12, 2024 4:17 PM [facility] 08-12-2024 Telephone encounter Note Pt called and is notified of providers results and instructions. Pt voices understanding. Updated Anticoag Tracker. Naye Jackson RN [facility] 08-12-2024 Miscellaneous Notes Pt called and is notified of providers results and instructions. Pt voices understanding. Updated Anticoag Tracker. Naye Jackson RN Left message for patient to contact office. Dodie Vazquez MA Starting today have patient do 5 mg Mon, Wed, Thur, Fri, Sun and 7.5 mg on Tues, Sat. Needs INR in a week. Last INR: INR 2.3 08/12/2024 Current dose of coumadin is: Held dose on 08/08, hold dosage 08/08, starting 08/09 take 5 mg Fri, 7.5 mg Sat and 5 mg Sun. Stop Lovenox due to INR being above 3. Last date of dose change: 08/08/24. Previous INR (date and result): 3.3 on 08/08/24. Additional Clinical Information or narrative: no, other than to recheck INR on 08/12/24. Ana Mott MA documented in this encounter [facility] 08-12-2024 Telephone encounter Note Left message for patient to contact office. Dodie Vazquez MA [facility] 08-12-2024 Telephone encounter Note Starting today have patient do 5 mg Mon, Wed, Thur, Fri, Sun and 7.5 mg on Tues, Sat. Needs INR in a week. [facility] 08-12-2024 Telephone encounter Note Last INR: INR 2.3 08/12/2024 Current dose of coumadin is: Held dose on 08/08, hold dosage 08/08, starting 08/09 take 5 mg Fri, 7.5 mg Sat and 5 mg Sun. Stop Lovenox due to INR being above 3. Last date of dose change: 08/08/24. Previous INR (date and result): 3.3 on 08/08/24. Additional Clinical Information or narrative: no, other than to recheck INR on 08/12/24. Ana Mott MA [facility] 08-08-2024 Telephone encounter Note Patient informed. Waleska Cespedes MA [facility] 08-08-2024 Miscellaneous Notes Patient informed. Waleska Cespedes MA Advise patient to hold her coumadin dose today. Also since her INR is above three she can stop the Lovenox. Starting Monday take 5 mg, Sat take 7.5 mg and Monday take 5 mg. Needs next INR on Monday08/12/2024 Last INR: INR 3.3 08/08/2024 Current dose of coumadin is: 7.5 mg on Mon (08/05) 5 mg (08/06) 7.5 mg on Mon (08/08). Taking Lovenox Last date of dose change: 08/05/24. take 7.5mg today 08/05/24 & 08/07/24, take 5mg 08/06/24 Previous INR (date and result): 08/05/24 1.7 Additional Clinical Information or narrative: no Sherill A Hambel, [employer]ODUCT INSPECTOR documented in this encounter [facility] 08-08-2024 Telephone encounter Note Advise patient to hold her coumadin dose today. Also since her INR is above three she can stop the Lovenox. Starting Monday take 5 mg, Mon take 7.5 mg and Monday take 5 mg. Needs next INR on Monday08/12/2024 [facility] 08-08-2024 Telephone encounter Note Last INR: INR 3.3 08/08/2024 Current dose of coumadin is: 7.5 mg on Mon (08/05) 5 mg (08/06) 7.5 mg on Mon (08/08). Taking Lovenox Last date of dose change: 08/05/24. take 7.5mg today 08/05/24 & 08/07/24, take 5mg 08/06/24 Previous INR (date and result): 08/05/24 1.7 Additional Clinical Information or narrative: no Clarita Neely LPN [facility] 08-07-2024 Telephone encounter Note Phoned patient and given provider's message below with verbalized understanding. Patient asking provider to send Rx to [facility], for 10 pens and 1 refill. Advised patient she has a refill on lovenox at pharmacy and to ask them if she can fill for 10 pens instead of 20. Patient agreeable to call them and see if they can do this. [facility] 08-07-2024 Miscellaneous Notes Phoned patient and given provider's message below with verbalized understanding. Patient asking provider to send Rx to [facility], for 10 pens and 1 refill. Advised patient she has a refill on lovenox at pharmacy and to ask them if she can fill for 10 pens instead of 20. Patient agreeable to call them and see if they can do this. Let patient know that I am unable to answer those questions. Basically, it's my understanding that she will need to be on lovenox until her INR is in normal range for 2 checks. Patient calling, states that she will come in tomorrow as scheduled for her lab work but asking if how long she may need to stay on the Lovenox. States she has one injection left and will have to get a refill. Last time she had got 20 injections. Does not want to get that many until she knows if she will need them. Was supposed to discuss this today at her appointment with PCP. Please advise. documented in this encounter [facility] 08-07-2024 Telephone encounter Note Let patient know that I am unable to answer those questions. Basically, it's my understanding that she will need to be on lovenox until her INR is in normal range for 2 checks. [facility] Work Phone: 08-07-2024 Telephone encounter Note Patient calling, states that she will come in tomorrow as scheduled for her lab work but asking if how long she may need to stay on the Lovenox. States she has one injection left and will have to get a refill. Last time she had got 20 injections. Does not want to get that many until she knows if she will need them. Was supposed to discuss this today at her appointment with PCP. Please advise. [facility] 08-05-2024 Telephone encounter Note Pt notified of result & instructions for medication change, pt to repeat IRN 10/324. Pt has appt with pcp 08/06/24. Izabela Yepez LPN [facility] 08-05-2024 Miscellaneous Notes Pt notified of result & instructions for medication change, pt to repeat IRN 10/324. Pt has appt with pcp 08/06/24. Izabela Yepez LPN Left vm for patient to return call to nurse for provider message. Have patient take 7.5 mg of coumadin today, 5 mg Tu and 7.5 mg on Mon. Continue the lovenox and recheck INR on 08/08/2024 Last INR: INR 1.7 08/05/2024 Current dose of coumadin is: 5 mg Mon, Mon and Mon, (08/02, 08/03 and 08/04), taking Lovenox. Previous dosage was 5 mg and and 2.5 mg on Mon and Lovenox. Last date of dose change: 08/02/24. Previous INR (date and result): 1.4 on 08/02/24 Additional Clinical Information or narrative: Yes, Patient reports most recent medication changes in June: Cephalexin 250 mg daily for UTI prevention from urology. Vitamin C 250 mg daily. D-Mannose 2,00 0-500 mg daily. documented in this encounter [facility] 08-05-2024 Telephone encounter Note Left vm for patient to return call to nurse for provider message. [facility] 08-05-2024 Telephone encounter Note Have patient take 7.5 mg of coumadin today, 5 mg Tu and 7.5 mg on Mon. Continue the lovenox and recheck INR on 08/08/2024 [facility] 08-05-2024 Telephone encounter Note Last INR: INR 1.7 08/05/2024 Current dose of coumadin is: 5 mg Mon, Mon and Mon, (08/02, 08/03 and 08/04), taking Lovenox. Previous dosage was 5 mg and and 2.5 mg on Mon and Lovenox. Last date of dose change: 08/02/24. Previous INR (date and result): 1.4 on 08/02/24 Additional Clinical Information or narrative: Yes, Patient reports most recent medication changes in June: Cephalexin 250 mg daily for UTI prevention from urology. Vitamin C 250 mg daily. D-Mannose 2,00 0-500 mg daily. [facility] 08-02-2024 Telephone encounter Note left message per patient request since she is currently driving right now and not able to write down instructions. Sharmila Norwood LPN [facility] 08-02-2024 Miscellaneous Notes left message per patient request since she is currently driving right now and not able to write down instructions. Sharmila Norwood LPN Left message to call back and speak with triage nurse. Sharmila Norwood LPN Advise patient to take 5 mg of coumadin today, Sat and Sun. Needs INR 08/05/2024. Patient is to stay on the lovenox. Patient returns call with information as below: Last INR: INR 1.4 08/02/2024 Current dose of coumadin is: Coumadin 5 mg on Monday and and Coumadin 2.5 mg on Mon Last date of dose change: 07/30/2024. Previous INR (date and result): 1.5 07/29/2024 Additional Clinical Information or narrative: Patient reports no change no abnormal bleeding or bruising, no diet changes. No missed doses. Patient reports most recent medication changes in June: Cephalexin 250 mg daily for UTI prevention from urology. Vitamin C 250 mg daily. D-Mannose 2,00 0-500 mg daily. Whit Pal RN documented in this encounter [facility] 08-02-2024 Telephone encounter Note Left message to call back and speak with triage nurse. Sharmila Norwood LPN [facility] 08-02-2024 Telephone encounter Note Advise patient to take 5 mg of coumadin today, Sat and Sun. Needs INR 08/05/2024. Patient is to stay on the lovenox. [facility] 08-02-2024 Telephone encounter Note Patient returns call with information as below: Last INR: INR 1.4 08/02/2024 Current dose of coumadin is: Coumadin 5 mg on Monday and and Coumadin 2.5 mg on Mon Last date of dose change: 07/30/2024. Previous INR (date and result): 1.5 07/29/2024 Additional Clinical Information or narrative: Patient reports no change no abnormal bleeding or bruising, no diet changes. No missed doses. Patient reports most recent medication changes in June: Cephalexin 250 mg daily for UTI prevention from urology. Vitamin C 250 mg daily. D-Mannose 2,00 0-500 mg daily. Whit Pal RN [facility] 07-31-2024 Telephone encounter Note Patient notified and voiced understanding. Dodie Vzaquez MA [facility] 07-31-2024 Miscellaneous Notes Patient notified and voiced understanding. Dodie Vazquez MA Let patient know she can not stop the Lovenox until her INR is therapeutic for 2 days in a row. That means an INR between 2-3. Patient calls to verify that she should still be taking Lovenox injections. Per previous TE, patient should be taking Lovenox injections. Patient informed. Patient reports she doesn't think that is correct because her son told her that at this point she shouldn't be on Lovenox injections. Requests provider review. Please review and advise, Whit Pal RN documented in this encounter [facility] 07-31-2024 Telephone encounter Note Let patient know she can not stop the Lovenox until her INR is therapeutic for 2 days in a row. That means an INR between 2-3. [facility] 07-31-2024 Telephone encounter Note Patient calls to verify that she should still be taking Lovenox injections. Per previous TE, patient should be taking Lovenox injections. Patient informed. Patient reports she doesn't think that is correct because her son told her that at this point she shouldn't be on Lovenox injections. Requests provider review. Please review and advise, Whit Pal RN [facility] 07-30-2024 Telephone encounter Note Updated Anti tracker. Dodie Vazquez MA [facility] 07-30-2024 Miscellaneous Notes Updated Anti tracker. Dodie Vazquez MA Patient notified of provider's instructions. Patient verbalizes understanding. Patient will run over to lab at lunch break at noon to get INR done. Patient can't come in am due to school. Rylie Kaur RN Left message for patient to contact office. Dodie Vazquez MA Have patient take 5 mg today, 2.5 mg Wed, 5 mg and get INR Monday. Last INR: INR 1.5 07/29/2024 Current dose of coumadin is: 2.5 mg daily and Lovenox. Last date of dose change: 07/25/24. Previous INR (date and result): 07/25/24 INR: 1.5 Additional Clinical Information or narrative: no documented in this encounter [facility] 07-30-2024 Telephone encounter Note Patient notified of provider's instructions. Patient verbalizes understanding. Patient will run over to lab at lunch break at noon to get INR done. Patient can't come in am due to school. Rylie Kaur RN [facility] 07-30-2024 Telephone encounter Note Left message for patient to contact office. Dodie Vazquez MA [facility] 07-30-2024 Telephone encounter Note Have patient take 5 mg today, 2.5 mg Mon, 5 mg and get INR Monday Morning. [facility] 07-30-2024 Telephone encounter Note Last INR: INR 1.5 07/29/2024 Current dose of coumadin is: 2.5 mg daily and Lovenox. Last date of dose change: 07/25/24. Previous INR (date and result): 07/25/24 INR: 1.5 Additional Clinical Information or narrative: no [facility] 07-25-2024 Telephone encounter Note Patient calling back she had taken a 2.5 mg coumadin this morning. Advised her to take 2.5 mg at 5 pm since she had taken the 2.5 mg already to make the 5 mg dose for today. Advised patient that coumadin is usually taken at 5 pm incase we would have to call and change her dose. Patient said she will start taking at 5 pm, could not schedule her for coumadin clinic on 08/01, she she is in school until 330, she plans to go to [facility]. [facility] 07-25-2024 Miscellaneous Notes Patient calling back she had taken a 2.5 mg coumadin this morning. Advised her to take 2.5 mg at 5 pm since she had taken the 2.5 mg already to make the 5 mg dose for today. Advised patient that coumadin is usually taken at 5 pm incase we would have to call and change her dose. Patient said she will start taking at 5 pm, could not schedule her for coumadin clinic on 08/01, she she is in school until 330, she plans to go to [facility]. Patient returned call and went over coumadin instructions from Rayna Martinez PA today 5 mg and tomorrow 5 mg and then resume 2.5 mg daily recheck INR on next week and continue the Lovenox with understanding. Tracker started, needs patient goal inserted Left detailed message of instructions on pt's home answering machine and vm. Advised pt to call back to confirm message was received. Advised pt she could schedule with coumadin clinic for her appointment on if she would like to do this instead of going to the lab. If agreeable please schedule as new pt with coumadin clinic. Clarita Neely LPN Have patient take 5mg today and 5mg tomorrow. Then return to 2.5mg daily. Recheck INR on next week. Cont Lovenox. (Instructions Per dr. Bonilla) Rayna Martinez PA-C [address] nurse spoke with Perla in coumadin clinic for recommendation on coumadin dosing. Continue Lovenox injections until inr recheck and instructions from provider.. Take coumadin 7.5 mg today and 5 mg all other days and recheck INR on Mon. Can set up as new pt with coumadin clinic if pt is willing. Please advise if you are agreeable with this then will call pt with instructions. Clarita Neely LPN Last INR: INR 1.5 07/23/2024 Current dose of coumadin is: 2.5 mg daily. Last date of dose change: Previous INR (date and result): Additional Clinical Information or narrative: yes: per ov with pcp 07/18/24 Continue the 1/2 a tab of Eliquis twice a day through Monday. On Monday07/20/2024 start the Lovenox shots ( will do it daily till told to stop by provider). On Monday you will start taking 5 mg of coumadin in the later afternoon/early evening. You will take the 5 mg does for 3 days. On Monday you will get a blood draw to check [facility]. Plan will be to go to taking 1/2 of a 5 mg tab starting that day. documented in this encounter [facility] 07-25-2024 Telephone encounter Note Patient returned call and went over coumadin instructions from Rayna MOROCHO today 5 mg and tomorrow 5 mg and then resume 2.5 mg daily recheck INR on next week and continue the Lovenox with understanding. Tracker started, needs patient goal inserted [facility] 07-25-2024 Telephone encounter Note Left detailed message of instructions on pt's home answering machine and vm. Advised pt to call back to confirm message was received. Advised pt she could schedule with coumadin clinic for her appointment on if she would like to do this instead of going to the lab. If agreeable please schedule as new pt with coumadin clinic. Clarita Neely LPN [facility] [facility] 07-25-2024 Telephone encounter Note Have patient take 5mg today and 5mg tomorrow. Then return to 2.5mg daily. Recheck INR on next week. Cont Lovenox. (Instructions Per dr. Bonilla) Rayna Martinez PA-C T [facility] Work Phone: 07-25-2024 Telephone encounter Note [address] spoke with Perla in coumadin clinic for recommendation on coumadin dosing. Continue Lovenox injections until inr recheck and instructions from provider.. Take coumadin 7.5 mg today and 5 mg all other days and recheck INR on Mon. Can set up as new pt with coumadin clinic if pt is willing. Please advise if you are agreeable with this then will call pt with instructions. Clarita Neely LPN [facility] 07-25-2024 Telephone encounter Note Last INR: INR 1.5 07/23/2024 Current dose of coumadin is: 2.5 mg daily. Last date of dose change: Previous INR (date and result): Additional Clinical Information or narrative: yes: per ov with pcp 07/18/24 Continue the 1/2 a tab of Eliquis twice a day through Monday. On Monday07/20/2024 start the Lovenox shots ( will do it daily till told to stop by provider). On Monday you will start taking 5 mg of coumadin in the later afternoon/early evening. You will take the 5 mg does for 3 days. On Monday you will get a blood draw to check [facility]. Plan will be to go to taking 1/2 of a 5 mg tab starting that day. [facility] 07-22-2024 History of Present illness Narrative Images from the original note were not included. . [facility] Note Patient name: Norma Ferris PCP: Rangel Bonilla MD CC: Follow-up multiple bilateral pulmonary emboli HPI: Norma Ferris 78 year old female non-smoker with PMH significant for hiatal hernia/BE/GERD, HTN, subdural hematoma, HLD, seasonal allergies, spinal stenosis, and PE requiring supplemental oxygen. Had bilateral subsegmental pulmonary emboli without cor pulmonale discovered when she was admitted for Enterococcal UTI. She has been on Eliquis and at [facility] she was pending evaluation per hematology due to unprovoked nature of VTE. She also had issues with constant throat clearing in face of significant dysphagia, reflux and BE (pending possible ablation). Low dose ICS started by call center operator. Ordered PFT and Ming which were normal. She called the office wanting to stop her Eliquis due to nausea, lack of energy and fatigue. Referred patient to hematology for advice. She is currently transitioning to Coumadin. She is on Lovenox injections and states that she is feeling better. Less nausea, able to eat. She had lost 10 pounds due to lack of appetite. 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 She stopped her proton pump inhibitor on her own accord due to her GI issues with nausea. From a pulmonary standpoint she denies any significant shortness of breath, chest pain, cough or sputum production. Self monitored SpO2 above 90%. She has been wearing her oxygen at night. 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 Duarte at [facility]. 08/18/[address] Fischer at [facility] Chronic throat clearing 02/01/2018 Ectopic gastric mucosa of multiple sites 05/06/[address] Granado 04/2022 Elevated fasting blood sugar 08/14/2018 Encounter for gynecological examination without abnormal finding 07/20/2016 Sees [facility]. Essential hypertension 07/20/2016 GERD without esophagitis 01/14/2008 Hemorrhoids 03/03/2017 Hiatal hernia History of pulmonary embolus (PE) 04/08/202404/2024: 4 of them History of pulmonary embolus (PE) 04/08/202404/2024: 4 of them, to be on anticoagulation for 6 months. History of recurrent UTIs 07/19/2018 History of subdural hematoma 03/03/2017 After a fall Hypoxia 04/15/2024 After PE's 04/2024 Lichen sclerosus et atrophicus 03/03/2017 Living will on file at physician's office 01/16/2023 DPA: Nate (Son) Lumbago 03/21/[address] Duarte at [facility]. Medicare annual wellness visit, subsequent 08/14/2018 Medicare Part B: 06/06/2008 last done: 08/23/2019 Migraine without aura and without status migrainosus, not intractable 07/20/2016 Mixed hyperlipidemia 01/14/2008 Postmenopausal atrophic vaginitis 06/06/2012 Pulmonary nodules 10/03/201609/2016, follow uo CT in a year, 08/[address] Zheng Right thyroid nodule 10/03/2016 Had benign biopsy 09/2016 at [facility] Seasonal allergies 07/20/2016 Sinus arrhythmia Spinal stenosis, lumbar region, without neurogenic claudication 03/21/2012 ALLERGIES Allergen Reactions Willis Inhibitors Cough Carafate [Sucralfat* Diarrhea Eliquis [Apixaban] Other: See Comments Nausea, decreased appetite and chills Protonix [Pantopraz* Other: See Comments Stomach pain warfarin (COUMADIN) 5 mg tablet Take one tab tab a day for three days starting Monday07/20/2024. On Monday07/23/2024 start taking 1/2 a tab daily. enoxaparin (LOVENOX) 40 mg/0.4 mL Do one shot daily till therapeutic on coumadin and intructed by provider to stop. Start on Monday07/20/2024 ondansetron orally disintegrating (ZOFRAN ODT) 4 mg disintegrating tablet Take 1 tablet by mouth every 8 hours as needed for nausea/vomiting. estradiol (ESTRACE) 0.01 % (0.1 mg/gram) vaginal cream Use 1 g vaginally every other day. At bedtime simvastatin (ZOCOR) 10 mg tablet Take 1 tablet by mouth daily at bedtime. SUMAtriptan (IMITREX) 100 mg tablet Take one tab by month with onset of headache. Can repeat in 2 hrs. Max of 2 tabs in 24 hrs Social History Tobacco Use Smoking status: Never Passive exposure: Never Smokeless tobacco: Never Tobacco comments: No smoking in childhood home. No significant ETS in household since. Vaping Use Vaping status: Never Used Substance Use Topics Alcohol use: Yes Alcohol/week: 1.0 standard drink of alcohol Types: 1 Glasses of Wine (5oz) per week Comment: socially Drug use: No FAMILY HISTORY Problem Relation Age of Onset Coronary Artery Disease Mother Fatal [place] in her 80s Diabetes Father ADULT ONSET Coronary Artery Disease Father in his 80s No Known Problems Sister Hypertension Brother Coronary Artery Disease Brother 56 Prostate Cancer Brother No Known Problems Maternal Grandmother No Known Problems Maternal Grandfather No Known Problems Paternal Grandmother No Known Problems Paternal Grandfather COPD No Family History No lung cancer. PMH, Social history, family history and surgical history reviewed and updated in EMR REVIEW OF SYSTEMS: CONSTITUTIONAL: No fevers, chills, nightsweats. 10 pound unintended weight loss. Fatigue CARDIOVASCULAR: No chest pain, dyspnea, palpitations, orthopnea, PND, edema. PULM: See HPI GI: No dysphagia/odynophagia, problematic reflux. Nausea improved INTEGUMENTARY: No new skin changes, rashes, bruising PHYSICAL EXAMINATION: BP 132/84 Pulse 105 Resp 17 Wt 132 lb (59.9kg) SpO2 98% General Appearance: Elderly female, NAD. Skin: Skin color, texture, turgor normal, no suspicious rashes or lesions. Head: Normocephalic, no masses, lesions, tenderness or abnormalities. Neck: No JVD, no masses, no adenopathy. Lungs: Not labored, normal to percussion, no wheezes or crackles. Heart: Irregular rhythm, no murmurs. Extremities: Nonpitting ankle edema, no clubbing. Assessment/Plan: 1. 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 Chronic anticoagulation -See #1 3. Hypoxemia -Daytime hypoxemia resolved. Will check nocturnal oximetry on room air to see if supplemental oxygen can be discontinued Char Landeros MD [facility] documented in this encounter [facility] 07-22-2024 Note [facility] 07-18-2024 Instructions Rangel Bonilla MD - 07/18/2024 12:25 PM EDT Continue the 1/2 a tab of Eliquis twice a day through Monday. On Monday07/20/2024 start the Lovenox shots ( will do it daily till told to stop by provider). On Monday you will start taking 5 mg of coumadin in the later afternoon/early evening. You will take the 5 mg does for 3 days. On Monday you will get a blood draw [facility]. Plan will be to go to taking 1/2 of a 5 mg tab starting that day. documented in this encounter [facility] 07-18-2024 History of Present illness Narrative Chief Complaint No chief complaint on file. HPI Norma Ferris is a 78 year old female who presents here today for follow up on nausea. Patient has been having flu like symptoms since 04/09. She reports lack of energy, lack of appetite and body aches. Patient wants to D/C her eliquis and start Coumadin, as she believes it is due to the Eliquis. She reports that symptoms started when she started taking the Eliquis. She reports that they have continued to worsen. It started with nausea and has continued with cold chills, shivers, and reduced appetite. Patient reports that it feels like an extended case of the flu. Patient sees Dr. Coello - urology last appointment 07/02/2024, cystoscope was preformed. Patient was started on Macrobid 100 mg BID for 14 days. Patient opted to cancel the CTU that was scheduled for Monday. Patient had mild nausea when she fist start the Eliquis and over the past several months it has just gotten worse along with reduced appetite and chills/shakes. When she did not take any Eliquis on Monday she had no nausea and by supper her appetite had improved. She also had no shakes or chills. She did go back on the Eliquis yesterday but at 1/2 a tab twice a day and is not having the symptoms to the same degree. Past medical history, appointments, medications, allergies reviewed. 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 Duarte at [facility]. 08/18/[address] Fischer at [facility] 02/01/2018: Chronic throat clearing 05/06/2022: Ectopic gastric mucosa of multiple sites Comment: Esophagus seeing Dr. Granado 04/202208/14/2018: Elevated fasting blood sugar 07/20/2016: Encounter for gynecological examination without abnormal finding Comment: Sees [facility]. 07/20/2016: Essential hypertension 01/14/2008: GERD without esophagitis 03/03/2017: Hemorrhoids No date: Hiatal hernia 04/08/2024: History of pulmonary embolus (PE) Comment: 04/2024: 4 of them 07/19/2018: History of recurrent UTIs 03/03/2017: History of subdural hematoma Comment: After a fall 04/15/2024: Hypoxia Comment: After PE's 04/202403/03/2017: Lichen sclerosus et atrophicus 01/16/2023: Living will on file at physician's office Comment: DPA: Nate (Son) 03/21/2012: Lumbago Comment: Sees Dr. Duarte at [facility]. 08/14/2018: Medicare annual wellness visit, subsequent Comment: Medicare Part B: 06/06/2008 last done: 08/23/2019 07/20/2016: Migraine without aura and without status migrainosus, not intractable 01/14/2008: Mixed hyperlipidemia 06/06/2012: Postmenopausal atrophic vaginitis 10/03/2016: Pulmonary nodules Comment: 09/2016, follow uo CT in a year, 08/[address] Zheng 10/03/2016: Right thyroid nodule Comment: Had benign biopsy 09/2016 at [facility] 07/20/2016: Seasonal allergies 03/21/2012: Spinal stenosis, lumbar region, without neurogenic claudication Previous Surgical History PAST SURGICAL HISTORY 09/2016: 2D ECHO (EXEP) Comment: EF=65%, mild 1+ MR, TR No date: APPENDECTOMY No date: BACK SURGERY HX 1999: BRAIN SURGERY HX Comment: Brain bleed 04/29/2013: COLONOSCOPY Comment: Dr. Lu, repeat 10 years 06/22/2020: ESOPHAGOGASTRODUODENOSCOPY TRANSORAL DIAGNOSTIC Comment: EGD 10/27/2021: FECAL OCCULT BLOOD TEST Comment: negative No date: HEMORRHOIDECTOMY XTRNL 2/> COLUMN/GROUP 2002: LAPAROSCOPY SURG CHOLECYSTECTOMY Comment: Cholecystectomy, lap 1995: PAST SURGICAL HISTORY OF Comment: bladder suspension 2004: PAST SURGICAL HISTORY OF Comment: TVT and subsquent collagen injection 02/2012: PAST SURGICAL HISTORY OF Comment: back surgery for spinal stenosis 07/2016: PAST SURGICAL HISTORY OF Comment: had lumbar hardware removed, cleaned up DDD lumbar spine 1999: PAST SURGICAL HISTORY OF Comment: Hematoma head 12/2022: PAST SURGICAL HISTORY OF Comment: esophageal ablation 10/29/2019: STRESS ECHO Comment: norml 1999: SUBTEMPORAL CRANIAL DECOMPRESSION 1988: TOTAL ABDOMINAL HYSTERECT W/WO RMVL TUBE OVARY Comment: Hysterectomy, FUAD/BSO No date: VAGINAL HYSTERECTOMY Family History FAMILY HISTORY Problem Relation Age of Onset Coronary Artery Disease Mother Fatal [place] in her 80s Diabetes Father ADULT ONSET Coronary Artery Disease Father in his 80s No Known Problems Sister Hypertension Brother Coronary Artery Disease Brother 56 Prostate Cancer Brother No Known Problems Maternal Grandmother No Known Problems Maternal Grandfather No Known Problems Paternal Grandmother No Known Problems Paternal Grandfather COPD No Family History No lung cancer. Patient Allergies ALLERGIES Allergen Reactions Willis Inhibitors Cough Carafate [Sucralfat* Diarrhea Protonix [Pantopraz* Other: See Comments Stomach pain Current Medications Current Outpatient Medications on File Prior to Visit Medication Sig apixaban (ELIQUIS) 5 mg tab(s) Take 1 tablet by mouth two times a day. nitrofurantoin monohydrate and macrocrystal (MACROBID) 100 mg capsule Take 100 mg by mouth daily at bedtime. phenazopyridine (PYRIDIUM) 100 mg tablet Take 1 tablet by mouth three times a day as needed for pain. ondansetron orally disintegrating (ZOFRAN ODT) 4 mg disintegrating tablet Take 1 tablet by mouth every 8 hours as needed for nausea/vomiting. ARNUITY ELLIPTA 50 mcg/actuation powder for inhalation Inhale 1 Puff as instructed once daily. (Patient not taking: Reported on 05/08/2024) estradiol (ESTRACE) 0.01 % (0.1 mg/gram) vaginal cream Use 1 g vaginally every other day. At bedtime cholecalciferol (VITAMIN D-3) 5,000 unit tab Take 5,000 Units by mouth once daily. (Patient not taking: Reported on 05/21/2024) simvastatin (ZOCOR) 10 mg tablet Take 1 [...] Social History Tobacco Use Smoking status: Never Passive exposure: Never Smokeless tobacco: Never Tobacco comments: No smoking in childhood home. No significant ETS in household since. Vaping Use Vaping status: Never Used Substance Use Topics Alcohol use: Yes Alcohol/week: 1.0 standard drink of alcohol Types: 1 Glasses of Wine (5oz) per week Comment: socially Drug use: No Review of Symptoms REVIEW OF SYSTEMS RESPIRATORY: Negative for cough, hemoptysis, wheezing, COPD, dyspnea or shortness of breath CARDIOVASCULAR: Negative for chest pain, leg swelling, hypertension, CHF or palpitations MUSCULOSKELETAL: no calf pain. EXAM: BP 158/103 Pulse 80 Ht 157.5 cm (5' 2) Wt 59.9 kg (132 lb) BMI 24.14 kg/m BP 138/78 Pulse 80 Ht 157.5 cm (5' 2) Wt 59.9 kg (132 lb) BMI 24.14 kg/m Last 6 Encounter BP Readings: Date: BP: 07/18/2024 158/103 05/21/2024 142/81 05/08/2024 130/78 04/19/2024 112/86 04/19/2024 148/86 04/15/2024 134/82 General Appearance: Well appearing, alert, in no acute distress, well-hydrated, well nourished.. Lungs: Lungs clear to auscultation. No wheezing, rhonchi, rales.. Heart: RRR without murmur, gallop, or rubs. No ectopy. Extremities: No deformities, edema, skin discoloration, clubbing or cyanosis. Good capillary refill. . Health Maintenance List Depression Screening Never done Anxiety Screening Never done Covid-19 Vaccine( season) due on 07/07/2024 Influenza Vaccine(1) due on 07/07/2024 BP Controlled (<130/80) due on 01/23/2025 Annual PCP Team Chronic Disease Visit due on 04/19/2025 Diabetes Screening due on 05/21/2027 DTaP,Tdap,Td Vaccine(3 - Td or Tdap) due on 09/09/2028 Bone Density Screening Completed Advance Directive Discussion Completed RSV Vaccine Completed Shingrix Vaccine Completed Pneumococcal Vaccine: 65+ Completed Colorectal Cancer Screening Discontinued Data reviewed A/P ASSESSMENT/PLAN: 1. History of pulmonary embolus (PE) - ICD9: V12.55, ICD10: Z86.711 - will stop the Eliquis and change to coumadin. She will need to continue the anticoagulation till early 2023 start - WARFARIN 5 MG TABLET - ENOXAPARIN 40 MG/0.4 ML SUBCUTANEOUS SYRINGE - PROTHROMBIN TIME: starting on Monday07/23/2024 - educated on being consistent with her diet. Requested Prescriptions Signed Prescriptions Disp Refills warfarin (COUMADIN) 5 mg tablet 30 tablet 5 Sig: Take one tab tab a day for three days starting Monday07/20/2024. On Monday07/23/2024 start taking 1/2 a tab daily. enoxaparin (LOVENOX) 40 mg/0.4 mL 20 Each 1 Sig: Do one shot daily till therapeutic on coumadin and intructed by provider to stop. Start on Monday07/20/2024 F/u next routine or sooner if issues. I spent a total of 30 minutes on the date of the service which included preparing to see the patient, [id number] patient care, completing clinical documentation, performing a medically appropriate examination, counseling and educating the patient/family/caregiver and ordering medications, tests, or procedures. Rangel Bonilla MD documented in this encounter [facility] 07-18-2024 Note [facility] 07-16-2024 Telephone encounter Note Scheduled with Dr. Bonilla to discuss. Whit Pal RN [facility] 07-16-2024 Miscellaneous Notes Scheduled with Dr. Bonilla to discuss. Whit Pal RN I recommend she get in touch with PCP's team about her symptoms. Perhaps she needs evaluated to be sure nothing else causing them. In the meantime, she can be changed to Coumadin which can be managed by Dr. Bonilla's team. Cornel Clark DO Spoke with pt. Given Dr. Clark instruction, informed she needs to reach out to her PCP for further instruction. informed ,she can be changed to Coumadin which can be managed by Dr. Bonilla's team. Kayla Taylor LPN Pt. Believes she is having side effects of the Eliquis, symptoms started almost immediately after starting the medication. Has no appetite, shivers, nauseated, flu like symptoms, just feels terrible and the longer she takes the medication the worse her symptoms get. Did not take this mornings dose. States her son is a physician and he informed her there were other medications she could be on. Kayla Taylro LPN documented in this encounter [facility] 07-16-2024 Telephone encounter Note Rescheduled with Dr. Bonilla for 1120 am on 07/18/2024. Patient will continue Eliquis until then. Whit Pal RN [facility] 07-16-2024 Miscellaneous Notes Rescheduled with Dr. Bonilla for 1120 am on 07/18/2024. Patient will continue Eliquis until then. Whit Pal RN Patient calls to review symptoms (nausea, cold chills, shivers, reduced appetite). Nurse triage completed. Protocol recommends see provider within 3 days. Patient is requesting an answer today about medication and switching to an alternative anticoagulation. Scheduled for this afternoon with the understanding that provider would review symptoms but I was not able to give an exact answer of medication changes. Spoke to provider and will review. Reason for Disposition Nausea lasts > 1 week Answer Assessment - Initial Assessment Questions 1. NAUSEA SEVERITY: - MODERATE: decreased oral intake without significant weight loss, dehydration, or malnutrition 2. ONSET:April 09 3. VOMITING:No 4. RECURRENT SYMPTOM: On-going since April 09. CAUSE: Patient believes it is due to the Eliquis. She reports that symptoms started when she started taking the Eliquis. She reports that they have continued to worsen. It started with nausea and has continued with cold chills, shivers, and reduced appetite. Patient reports that it feels like an extended case of the flu. Patient is wanting an answer on Eliquis today. Protocols used: [id number] documented in this encounter [facility] 07-16-2024 Telephone encounter Note Patient calls to review symptoms (nausea, cold chills, shivers, reduced appetite). Nurse triage completed. Protocol recommends see provider within 3 days. Patient is requesting an answer today about medication and switching to an alternative anticoagulation. Scheduled for this afternoon with the understanding that provider would review symptoms but I was not able to give an exact answer of medication changes. Spoke to provider and will review. Reason for Disposition Nausea lasts > 1 week Answer Assessment - Initial Assessment Questions 1. NAUSEA SEVERITY: - MODERATE: decreased oral intake without significant weight loss, dehydration, or malnutrition 2. ONSET:April 09. VOMITING:No 4. RECURRENT SYMPTOM: On-going since April 09. CAUSE: Patient believes it is due to the Eliquis. She reports that symptoms started when she started taking the Eliquis. She reports that they have continued to worsen. It started with nausea and has continued with cold chills, shivers, and reduced appetite. Patient reports that it feels like an extended case of the flu. Patient is wanting an answer on Eliquis today. Protocols used: [id number] [facility] 07-16-2024 Telephone encounter Note I recommend she get in touch with PCP's team about her symptoms. Perhaps she needs evaluated to be sure nothing else causing them. In the meantime, she can be changed to Coumadin which can be managed by Dr. Bonilla's team. Cornel Clark DO Spoke with pt. Given Dr. Clark instruction, informed she needs to reach out to her PCP for further instruction. informed ,she can be changed to Coumadin which can be managed by Dr. Bonilla's team. Kayla Taylor LPN [facility] Work Phone: 07-16-2024 Telephone encounter Note Pt. Believes she is having side effects of the Eliquis, symptoms started almost immediately after starting the medication. Has no appetite, shivers, nauseated, flu like symptoms, just feels terrible and the longer she takes the medication the worse her symptoms get. Did not take this mornings dose. States her son is a physician and he informed her there were other medications she could be on. Kayla Taylor LPN [facility] 07-16-2024 Telephone encounter Note Patient with flu like sx since 04/09. Offered to transfer patient to Dr. Clark's office. Discussed with Alethea, and transferred patient. Sayda Russell LPN [facility] 07-16-2024 Miscellaneous Notes Patient with flu like sx since 04/09. Offered to transfer patient to Dr. Clark's office. Discussed with Alethea, and transferred patient. Sayda Russell LPN Patient phones to reports flu like symptoms while taking eliquis. Patient reports lack of energy, lack of appetite and body aches. She is scheduled to see Dr Landeros on Monday but does not feel she can wait. Patient requested to dc medication, this caregiver informed her she is not to dc medication without provider approval. Eden Bermeo MA documented in this encounter [facility] 07-16-2024 Telephone encounter Note Patient phones to reports flu like symptoms while taking eliquis. Patient reports lack of energy, lack of appetite and body aches. She is scheduled to see Dr Landeros on Monday but does not feel she can wait. Patient requested to dc medication, this caregiver informed her she is not to dc medication without provider approval. Eden Bermeo MA [facility] 07-12-2024 Note HNO ID: [id number] Author: DODIE VAZQUEZ MA Service: ? Author Type: Stock Buyer Type: Progress Notes Filed: 07/12/2024 10:28 Note Text: Scan on 07/02/2024 10:25 AM by ProviderMary PA-C: Consultation - CINTHYA Vazquez MA [facility] 07-12-2024 History of Present illness Narrative Scan on 07/02/2024 10:25 AM by Mary Méndez PA-C: Consultation - CINTHYA Vazquez MA documented in this encounter [facility] 06-28-2024 Telephone encounter Note The patient has been identified by name and date of : Yes Caregiver verified no other encounters exist for this prescription request: Yes Caregiver confirmed with patient/requestor that no other refills are due, in the near future, with this provider at this time: Yes The last office visit in the department: 04/19/2024 Does the patient have a future office visit with this provider/department: Yes 08/07/2024 Requested Prescriptions Pending Prescriptions Disp Refills apixaban (ELIQUIS) 5 mg tab(s) 60 tablet 1 Sig: Take 1 tablet by mouth two times a day. Zulay Farley LPN June 28, 2024 9:07 AM [facility] 06-28-2024 Miscellaneous Notes The patient has been identified by name and date of : Yes Caregiver verified no other encounters exist for this prescription request: Yes Caregiver confirmed with patient/requestor that no other refills are due, in the near future, with this provider at this time: Yes The last office visit in the department: 04/19/2024 Does the patient have a future office visit with this provider/department: Yes 08/07/2024 Requested Prescriptions Pending Prescriptions Disp Refills apixaban (ELIQUIS) 5 mg tab(s) 60 tablet 1 Sig: Take 1 tablet by mouth two times a day. Zulay Farley LPN June 28, 2024 9:07 AM documented in this encounter [facility] 06-24-2024 Note HNO ID: [id number] Author: CLARITA NEELY LPN Service: ? Author Type: LICENSED NURSE Type: Progress Notes Filed: 06/24/2024 07:10 Note Text: Scan on 06/23/2024 12:30 PM by ProviderMary PA-C: Ultrasound [facility] 06-24-2024 History of Present illness Narrative Scan on 06/23/2024 12:30 PM by ProviderMary PA-C: Ultrasound documented in this encounter [facility] 06-12-2024 Telephone encounter Note Message relayed to patient. She states she will call to schedule appointments on her own [facility] Work Phone: 06-12-2024 Miscellaneous Notes Message relayed to patient. She states she will call to schedule appointments on her own Message left for patient to contact office. Carola Small LPN Please file orders. Carola Small LPN Can let her know the repeat mammogram and ultrasounds suggested benign findings in both breasts but the radiologist recommended a 6-month follow-up to assure stability. Please pend order for bilateral diagnostic mammogram as well as ultrasound left breast with axillary views to be scheduled in about 6 months. documented in this encounter [facility] 06-12-2024 Telephone encounter Note Message left for patient to contact office. Carola Small LPN [facility] 06-12-2024 Telephone encounter Note Please file orders. Carola Small LPN [facility] 06-11-2024 Telephone encounter Note Can let her know the repeat mammogram and ultrasounds suggested benign findings in both breasts but the radiologist recommended a 6-month follow-up to assure stability. Please pend order for bilateral diagnostic mammogram as well as ultrasound left breast with axillary views to be scheduled in about 6 months. [facility] Work Phone: 06-11-2024 History of Present illness Narrative Radiology Service Progress Note PATIENT NAME: Norma Ferris DATE OF SERVICE: June 11, 2024 TIME: 3:48 PM PATIENT IDENTITY VERIFICATION COMPLETED USING TWO (2) IDENTIFIERS: Name and Date of confirmed by patient verbally. FALL SCREENING: Has the patient had 2 falls in the last year or 1 fall with injury or currently using an Ambulatory Assistive Device (Walker, Cane, Wheelchair, Crutches, etc.)? No PATIENT GENDER DATA: Female. status: : No status: NO. PATIENT RELEVANT IMPLANT DATA REVIEWED: Not Applicable PATIENT PRESENTS WITH AN IMPLANTABLE OR ATTACHED ROLLER PICKER: No RADIOLOGY DEPARTMENT: Ultrasound PERIPHERAL IV DATA: Not applicable SIGNED BY: Katelin Funez RDMS RVT June 11, 2024 3:48 PM documented in this encounter [facility] 06-11-2024 Note [facility] 06-11-2024 History of Present illness Narrative Radiology Service Progress Note PATIENT NAME: Norma Ferris DATE OF SERVICE: June 11, 2024 TIME: 8:52 AM PATIENT IDENTITY VERIFICATION COMPLETED USING TWO (2) IDENTIFIERS: Name and Date of confirmed by patient verbally. FALL SCREENING: Has the patient had 2 falls in the last year or 1 fall with injury or currently using an Ambulatory Assistive Device (Walker, Cane, Wheelchair, Crutches, etc.)? No PATIENT GENDER DATA: Female. status: : No status: NO. PATIENT RELEVANT IMPLANT DATA REVIEWED: Not Applicable PATIENT PRESENTS WITH AN IMPLANTABLE OR ATTACHED ROLLER PICKER: No RADIOLOGY DEPARTMENT: Mammography PERIPHERAL IV DATA: Not applicable SIGNED BY: Vickie Lorenzo June 11, 2024 8:52 AM documented in this encounter [facility] 06-11-2024 Note [facility] 06-10-2024 Note HNO ID: [id number] Author: DODIE VAZQUEZ MA Service: ? Author Type: Stock Buyer Type: Progress Notes Filed: 06/10/2024 15:07 Note Text: Scan on 06/10/2024 1:53 PM by ProviderMary PA-C: Consultation - CINTHYA Vazquez MA [facility] 06-10-2024 History of Present illness Narrative Scan on 06/10/2024 1:53 PM by ProviderMary PA-C: Consultation - CINTHYA Vazquez MA documented in this encounter [facility] 06-10-2024 Telephone encounter Note Correct/updated orders linked. Rylie Arita [facility] 06-10-2024 Miscellaneous Notes Correct/updated orders linked. Rylie Arita Please file new orders. Carola Small LPN Please file order for bilateral diagnostic mammogram with correct diagnosis. This is a call back jenny for abnormal mammogram. This is not a screening. Screening diagnosis should be removed. Thank you. documented in this encounter [facility] 06-10-2024 Telephone encounter Note Please file new orders. Carola Small LPN [facility] 06-10-2024 Telephone encounter Note Please file order for bilateral diagnostic mammogram with correct diagnosis. This is a call back jenny for abnormal mammogram. This is not a screening. Screening diagnosis should be removed. Thank you. [facility] 06-10-2024 Telephone encounter Note Patient is already scheduled for tomorrow. Orders linked to existing appointment. Rylie Arita [facility] 06-10-2024 Miscellaneous Notes Patient is already scheduled for tomorrow. Orders linked to existing appointment. Rylie Arita Thank you filed. Cornel Clark DO Please file orders. Carola Small LPN Please pend order for bilateral diagnostic mammogram and ultrasound of both breasts including imaging of axilla on both sides. Schedule the patient for these. Cornel Clark DO Pts. Last mamm done 2010 was done at [facility]. patient reports NO breast symptoms/last mamm 2010/emailing Imaging Library to digitize exams. Comparison to prior exams as well as additional views with possible ultrasound are recommended Kayla Taylor LPN Radiology needs prior outside mammograms for comparison to recent one done here. Cornel Clark DO documented in this encounter [facility] 06-10-2024 Telephone encounter Note Thank you filed. Cornel Clark DO [facility] Work Phone: 06-10-2024 Telephone encounter Note Please file orders. Carola Small LPN [facility] 06-10-2024 Telephone encounter Note Please pend order for bilateral diagnostic mammogram and ultrasound of both breasts including imaging of axilla on both sides. Schedule the patient for these. Cornel Clark DO [facility] 06-10-2024 Telephone encounter Note Pts. Last mamm done 2011 was done at [facility]. patient reports NO breast symptoms/last mamm 2010/emailing Imaging Library to digitize exams. Comparison to prior exams as well as additional views with possible ultrasound are recommended Kayla Taylor LPN [facility] 06-09-2024 Telephone encounter Note Radiology needs prior outside mammograms for comparison to recent one done here. Cornel Clark DO [facility] 06-07-2024 Miscellaneous Notes June 10, 2024 PID: [id number] Norma Ferris [address] [place] [id number] Dear Ms. Ferris, Your prior imaging studies have arrived and been compared to your current study performed on 06/06/2024 which showed a possible finding that requires additional imaging studies for a complete evaluation. Most such findings are probably benign (not cancer). Breast tissue can be either dense or not dense. Dense tissue makes it harder to find breast cancer on a mammogram and also raises the risk of developing breast cancer. Your breast tissue is not dense. Talk to your healthcare provider about breast density, risks for breast cancer, and your individual situation. If you have a healthcare provider who ordered/prescribed your screening mammogram: Please call [phone] or EXT: [phone] to schedule an appointment for your additional imaging (if you have not already done so). If you DO NOT have a healthcare provider (ie you did not have an order/prescription for your screening mammogram): Please call to schedule an appointment for your additional imaging (if you have not already done so). You must have an order/prescription from your physician when calling to schedule your appointment. If your order/prescription is not electronic, you must bring the hard copy with you on the day of your exam to avoid delays. Your imaging studies and reports are kept on file at [facility] as part of your permanent medical record, and are available for your continuing care. Thank you for allowing us to help in meeting your health care needs. Sincerely, Dr. Moore Interpreting Radiologist [facility] (compared needs addl imaging) documented in this encounter [facility] 06-07-2024 Note Formatting of this n ote might be different from the original. June 10, 2024 PID: [id number] Norma Ferris [address] [place] [id number] Dear Ms. Ferris, Your prior imaging studies have arrived and been compared to your current study performed on 06/06/2024 which showed a possible finding that requires additional imaging studies for a complete evaluation. Most such findings are probably benign (not cancer). Breast tissue can be either dense or not dense. Dense tissue makes it harder to find breast cancer on a mammogram and also raises the risk of developing breast cancer. Your breast tissue is not dense. Talk to your healthcare provider about breast density, risks for breast cancer, and your individual situation. If you have a healthcare provider who ordered/prescribed your screening mammogram: Please call [phone] or EXT: [phone] to schedule an appointment for your additional imaging (if you have not already done so). If you DO NOT have a healthcare provider (ie you did not have an order/prescription for your screening mammogram): Please call to schedule an appointment for your additional imaging (if you have not already done so). You must have an order/prescription from your physician when calling to schedule your appointment. If your order/prescription is not electronic, you must bring the hard copy with you on the day of your exam to avoid delays. Your imaging studies and reports are kept on file at [facility] as part of your permanent medical record, and are available for your continuing care. Thank you for allowing us to help in meeting your health care needs. Sincerely, Dr. Moore Interpreting Radiologist [facility] (compared needs addl imaging) [facility] 06-06-2024 History of Present illness Narrative Radiology Service Progress Note PATIENT NAME: Norma Ferris DATE OF SERVICE: June 06, 2024 TIME: 2:19 PM PATIENT IDENTITY VERIFICATION COMPLETED USING TWO (2) IDENTIFIERS: Name and Date of confirmed by patient verbally. FALL SCREENING: Has the patient had 2 falls in the last year or 1 fall with injury or currently using an Ambulatory Assistive Device (Walker, Cane, Wheelchair, Crutches, etc.)? No PATIENT GENDER DATA: Female. status: : No status: NO. PATIENT RELEVANT IMPLANT DATA REVIEWED: Not Applicable PATIENT PRESENTS WITH AN IMPLANTABLE OR ATTACHED ROLLER PICKER: No RADIOLOGY DEPARTMENT: Mammography PERIPHERAL IV DATA: Not applicable SIGNED BY: Vickie Fuller June 06, 2024 2:19 PM documented in this encounter [facility] 06-06-2024 Note [facility] 05-23-2024 Telephone encounter Note Pt called and notified of results and recommendations below from Provider. Ana Mott MA [facility] 05-23-2024 Miscellaneous Notes Pt called and notified of results and recommendations below from Provider. Ana Mott MA Let patient know that her A1c is normal. Cholesterol is stable. Trigs were just slightly elevated. But not concerned. Thanks. Rayna Martinez PA-C documented in this encounter [facility] 05-23-2024 Telephone encounter Note Let patient know that her A1c is normal. Cholesterol is stable. Trigs were just slightly elevated. But not concerned. Thanks. Rayna Martinez PA-C [facility] Work Phone: 05-22-2024 Telephone encounter Note Pt notified. Rhonda Arango LPN [facility] 05-22-2024 Miscellaneous Notes Pt notified. Rhonda Arango LPN Right, COVID booster okay. Cornel Clark DO Patient called back stating Dr. Clark told her depending on lab results, she may be able to get Covid booster. Please advise. Pt notified and voices understanding. Rhonda Arango LPN Lab testing done yesterday showed no abnormalities. Continue apixaban and follow-up as scheduled. documented in this encounter [facility] 05-22-2024 Telephone encounter Note Right, COVID booster okay. Cornel Clark DO [facility] Work Phone: 05-22-2024 Telephone encounter Note Patient called back stating Dr. Clark told her depending on lab results, she may be able to get Covid booster. Please advise. [facility] Work Phone: 05-22-2024 Telephone encounter Note Pt notified and voices understanding. Rhonda Arango LPN [facility] 05-22-2024 Telephone encounter Note Lab testing done yesterday showed no abnormalities. Continue apixaban and follow-up as scheduled. [facility] 05-21-2024 Telephone encounter Note Requested images. Rhonda Arango LPN [facility] 05-21-2024 Miscellaneous Notes Requested images. Rhonda Arango LPN Please import CTA chest images from 04/05/2024 done at [facility] into our system as soon as able. Let me know when loaded. Cornel Clark DO documented in this encounter [facility] 05-21-2024 Telephone encounter Note Please import CTA chest images from 04/05/2024 done at [facility] into our system as soon as able. Let me know when loaded. Cornel Clark DO [facility] Work Phone: 05-21-2024 Note [facility] 05-21-2024 History of Present illness Narrative Patient referred by Dr. Bonilla for pulmonary emboli. The impression and plan will be communicated by way of the shared electronic record or faxed under separate cover letter. HPI: The patient is an 78-year-old female with a past medical history as outlined below. Presented to the ED at [facility] on 03/24/2024 with complaints of generalized abdominal pain, multiple episodes of vomiting and diarrhea that were keeping her awake at night. 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 Was discharged home. Return to the ED several days later on 04/01. Had been seen earlier in the day at urgent care with a temperature of 100.8. Home thermometer demonstrated temperature to 104. Only other complaint at that time was urinary frequency. Had history of recurrent UTIs. Noted to have pulse ox 92% on room air. Diagnosed with UTI. Was placed on Augmentin for history of ESBL E. coli. Urine culture returned with Enterococcus facialis. It was sensitive to Augmentin. Return to the ED on 04/05 due to continued fevers. At that time D-dimer was noted to be elevated. Had CTA of chest demonstrated multiple bilateral pulmonary emboli. Venous duplex ultrasound of the legs demonstrated evidence of acute DVT in the right posterior tibial, peroneal and soleus veins. Acute DVT was also noted in the left tibioperoneal trunk vein, posterior tibial, peroneal vein and soleus vein. Echocardiogram was performed during admission demonstrating LVEF 55 to 60% with normal right ventricular size and function no evidence of right ventricular strain on EKG or echocardiogram. Also tested for rhinovirus. Antibiotics were discontinued on 04/09. Patient was discharged home on home oxygen and apixaban. Was seen by Dr. Landeros. At that time patient endorsed no significant dyspnea, chest pain or lower extremity edema. She had no recent surgeries, travel or sedentary history prior to the pulmonary emboli. No family history of hypercoagulable disorder. Had respiratory symptoms consisting of cough without sputum production that has been going on for approximately 2 months. Other past medical history significant for Saravia's esophagus. Was evaluated by ENT as well. Has been seen by gastroenterology. Observed a small sliding hiatal hernia and an esophagram demonstrating barium pill to trap the GE junction previous EGD and biopsy consistent Saravia's esophagus. Plan for mucosal ablation of did not respond to aggressive acid suppression. ENT evaluation showed severe edema of the intra arytenoid area. Sex: Female. Smoker: No. Family h/o VTE: No. Family h/o atherosclerotic disease: No. Family h/o cancer: Brother--Colon cancer. in his 70s. Patient has had colonoscopies. Hypercoagulation labs: No. Up to date on age and gender appropriate cancer screening studies: No mammogram in quite a while. Transient risk factors: Possible viral syndrome.. Chronic risk factors: No varicose veins. Had been on HRT with oral therapy; Uses topical estrogen cream (Estrace--twice a week). Recent illnesses: Yes (Covid 08/2023; Recent rhinovirus). US legs performed: Yes. Using O2 at night now. Using pickle. Makes her cough, but no cough otherwise. Recurrent UTIs. Occasional sinusitis. Chronic throat cleaning. Walking about an hour every morning. No mammogram in quite a while. 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 Duarte at [facility]. 08/18/[address] Fischer at [facility] Chronic throat clearing 02/01/2018 Ectopic gastric mucosa of multiple sites 05/06/[address] Granado 04/2022 Elevated fasting blood sugar 08/14/2018 Encounter for gynecological examination without abnormal finding 07/20/2016 Sees [facility]. Essential hypertension 07/20/2016 GERD without esophagitis 01/14/2008 Hemorrhoids 03/03/2017 Hiatal hernia History of pulmonary embolus (PE) 04/08/202404/2024: 4 of them History of recurrent UTIs 07/19/2018 History of subdural hematoma 03/03/2017 After a fall Hypoxia 04/15/2024 After PE's 04/2024 Lichen sclerosus et atrophicus 03/03/2017 Living will on file at physician's office 01/16/2023 DPA: Nate (Son) Lumbago 03/21/[address] Duarte at [facility]. Medicare annual wellness visit, subsequent 08/14/2018 Medicare Part B: 06/06/2008 last done: 08/23/2019 Migraine without aura and without status migrainosus, not intractable 07/20/2016 Mixed hyperlipidemia 01/14/2008 Postmenopausal atrophic vaginitis 06/06/2012 Pulmonary nodules 10/03/201609/2016, follow uo CT in a year, 08/[address] Zheng Right thyroid nodule 10/03/2016 Had benign biopsy 09/2016 at [facility] Seasonal allergies 07/20/2016 Spinal stenosis, lumbar [...] OVARY 1988 Hysterectomy, FUAD/BSO VAGINAL HYSTERECTOMY ALLERGIES Allergen Reactions Willis Inhibitors Cough Carafate [Sucralfat* Diarrhea Protonix [Pantopraz* Other: See Comments Stomach pain Current Outpatient Medications Medication Sig nitrofurantoin monohydrate and macrocrystal (MACROBID) 100 mg capsule Take 100 mg by mouth daily at bedtime. phenazopyridine (PYRIDIUM) 100 mg tablet Take 1 tablet by mouth three times a day as needed for pain. ondansetron orally disintegrating (ZOFRAN ODT) 4 mg disintegrating tablet Take 1 tablet by mouth every 8 hours as needed for nausea/vomiting. estradiol (ESTRACE) 0.01 % (0.1 mg/gram) vaginal cream Use 1 g vaginally every other day. At bedtime apixaban (ELIQUIS) 5 mg tab(s) Take 1 tablet by mouth two times a day. simvastatin (ZOCOR) 10 mg tablet Take 1 [...] WITH VITAMIN C 1000MG FOR UTI PREVENTION ARNUITY ELLIPTA 50 mcg/actuation powder for inhalation Inhale 1 Puff as instructed once daily. (Patient not taking: Reported on 05/08/2024) cholecalciferol (VITAMIN D-3) 5,000 unit tab Take 5,000 Units by mouth once daily. (Patient not taking: Reported on 05/21/2024) No current facility-administered medications for this visit. Social History Tobacco Use Smoking status: Never Passive exposure: Never Smokeless tobacco: Never Tobacco comments: No smoking in childhood home. No significant ETS in household since. Vaping Use Vaping Use: Never used Substance Use Topics Alcohol use: Yes Alcohol/week: 1.0 standard drink of alcohol Types: 1 Glasses of Wine (5oz) per week Comment: socially Drug use: No Family History Problem Relation Age of Onset Coronary Artery Disease Mother Fatal [place] in her 80s Diabetes Father ADULT ONSET Coronary Artery Disease Father in his 80s No Known Problems Sister Hypertension Brother Coronary Artery Disease Brother 56 Prostate Cancer Brother No Known Problems Maternal Grandmother No Known Problems Maternal Grandfather No Known Problems Paternal Grandmother No Known Problems Paternal Grandfather COPD No Family History No lung cancer. ROS: Constitutional: No fever. No drenching night sweats. Normal appetite. No unexplained weight loss. No significant fatigue. Neuro: No recent CARBAJAL, vertigo, dizziness or imbalance. No symptoms of sensory neuropathy. HEENT: No recent change in voice, vision or hearing. Resp: See above. CVS: No exertional chest pain, PND or orthopnea. No extremity swelling/edema. GI: No dysgeusia. No symptoms of stomatitis. No dysphagia or odynophagia. No reflux, n/v, change in bowel habits. No abdominal pain, bloating or distension. No black or bloody stools. : No dysuria or gross hematuria. No symptoms of bladder outlet obstruction. Endo: No hot flashes. No polyuria or polydipsia. No heat or cold intolerance. Musculoskeletal: No bone, back, joint and muscular pain. Derm: No current rash. No history of jaundice. No diffuse pruritis. Heme: No unusual bleeding and unexplained bruising. Psych: Normal mood. PHYSICAL EXAM: Vitals: Blood pressure 142/81, pulse 117, temperature 36.7 C (98 F), temperature source Temporal, height 158 cm (5' 2.21), weight 60.3 kg (133 lb), SpO2 96%. Well-appearing and in no acute distress. EYES: Sclerae are anicteric bilaterally. ENT: Oral mucosa is unremarkable. There is no sign of thrush or mucositis. LYMPHATIC: There is no palpable cervical, supraclavicular, axillary or inguinal adenopathy. RESPIRATORY: Inspiratory breath sounds are of normal intensity in all cowan. No rales, wheezes or rhonchi. Expiratory phase is normal. CARDIOVASCULAR: Rhythm is regular. Normal intensity S1/S2. There is no gallop or murmur. ABDOMEN: The abdomen is nondistended. No splenomegaly or hepatomegaly. No tenderness. Extremities: No swelling or edema. SKIN: No jaundice or rash. No petechiae. NEUROLOGIC: button tufter II-XII are grossly intact. No focal motor weakness. DTRs are symmetric and normal. MUSCULOSKELETAL: No joint swelling or tenderness. No muscle wasting. ASSESSMENT/PLAN: (I27.82) Chronic pulmonary embolism without acute cor pulmonale, unspecified pulmonary embolism type (HCC) Assessment: -Patient is an 78-year-old active female with a past medical history as outlined above. Recent diagnosis bilateral below-knee DVT with multiple pulmonary emboli. No clear provoking factors other than possible UTI/viral syndrome proceeding. Did have positive testing for COVID August 2023. -Tolerating anticoagulation well. No unusual bleeding or unexplained bruising. Minimal to no respiratory symptoms of the event. -Up-to-date on age and gender appropriate cancer screening except for mammogram which she has not had in least 20 years. -Reviewed CT images from [facility]. Question right hilar adenopathy. -For now recommended 6 months of anticoagulation therapy. Also will check for anticardiolipin and antibeta 2 glycoprotein antibodies which may suggest underlying lupus anticoagulant if present. In that case Coumadin would be preferable to apixaban. Plan: -Will have CT images from [facility] uploaded and reviewed with Dr. Landeros. -Continue apixaban for now. -Check CBC as well as anticardiolipin and antibeta 2 glycoprotein antibodies. -Screening mammogram. -Office visit in about 6 months. I spent a total of 60 minutes on the date of the service which included preparing to see the patient, [id number] patient care, completing clinical documentation, obtaining and/or reviewing separately obtained history, performing a medically appropriate examination, counseling and educating the patient/family/caregiver, ordering medications, tests, or procedures, communicating with other HCPs (not separately reported), and communicating results to the patient/family/caregiver. Cornel Clark DO documented in this encounter [facility] 05-08-2024 Note Addended by: MO ARNDT on: 05/08/2024 09:22 AM Modules accepted: Orders [facility] 05-08-2024 Miscellaneous Notes Addended by: MO ARNDT on: 05/08/2024 09:22 AM Modules accepted: Orders Addended by: KIM WILLIAMSON on: 05/08/2024 09:20 AM Modules accepted: Orders documented in this encounter [facility] 05-08-2024 Note Addended by: Noelle WILLIAMSON on: 05/08/2024 09:20 AM Modules accepted: Orders [facility] 05-08-2024 Note HNO ID: [id number] Author: CLARITA NEELY LPN Service: ? Author Type: LICENSED NURSE Type: Progress Notes Filed: 05/08/2024 09:11 Note Text: Scan on 05/08/2024 8:11 AM by ProviderMary PA-C: Microbiology [facility] 05-08-2024 History of Present illness Narrative Scan on 05/08/2024 8:11 AM by ProviderMary PA-C: Microbiology documented in this encounter [facility] 05-08-2024 Note [facility] 05-08-2024 History of Present illness Narrative Director Biostatistics offered: Patient accepts, visit chaperoned by Sharmila Collado LPN. Norma Ferris is a 78 year old female who presents for problem visit for evaluation fo recurrent UTIs for years since her FUAD/BSO for endometriosis decades ago and has been evaluated for recurrent UTIs by urology and urogynecology for years. Currently being treated with Cipro for this latest episode pending culture results. Pt uses estrace cream twice weekly and is on Methenamine and vitamin C as a preventative. Pt also recently discoved to have pulmonary emboli and has been started on eliquis . HPI: as above OB History T0 L2 SAB0 IAB0 Ectopic0 Multiple0 Live Births0 Casino Attendant History LMP: Hysterectomy Age at Menarche: Age at First : Age at Menopause: Casino Attendant History Comments: Sexual Activity: Yes; Male; FUAD Contraception: No contraception data on record PAST MEDICAL HISTORY Diagnosis Date Advance directive discussed with patient 01/16/2023 Discussed 01/2023: up to date Saravia's esophagus without dysplasia 05/06/[address] 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 Duarte at [facility]. 08/18/[address] Fischer at [place] Chronic throat clearing 02/01/2018 Ectopic gastric mucosa of multiple sites 05/06/[address] Granado 04/2022 Elevated fasting blood sugar 08/14/2018 Encounter for gynecological examination without abnormal finding 07/20/2016 Sees [facility]. Essential hypertension 07/20/2016 GERD without esophagitis 01/14/2008 Hemorrhoids 03/03/2017 Hiatal hernia History of pulmonary embolus (PE) 04/08/202404/2024: 4 of them History of recurrent UTIs 07/19/2018 History of subdural hematoma 03/03/2017 After a fall Hypoxia 04/15/2024 After PE's 04/2024 Lichen sclerosus et atrophicus 03/03/2017 Living will on file at physician's office 01/16/2023 DPA: Nate (Son) Lumbago 03/21/[address] Duarte at [facility]. Medicare annual wellness visit, subsequent 08/14/2018 Medicare Part B: 06/06/2008 last done: 08/23/2019 Migraine without aura and without status migrainosus, not intractable 07/20/2016 Mixed hyperlipidemia 01/14/2008 Postmenopausal atrophic vaginitis 06/06/2012 Pulmonary nodules 10/03/201609/2016, follow uo CT in a year, 08/[address] Zheng Right thyroid nodule 10/03/2016 Had benign biopsy 09/2016 at [facility] Seasonal allergies 07/20/2016 Spinal stenosis, lumbar [...] TUBE OVARY 1987 Hysterectomy, FUAD/BSO VAGINAL HYSTERECTOMY FAMILY HISTORY Problem Relation Age of Onset Coronary Artery Disease Mother Fatal [place] in her 80s Diabetes Father ADULT ONSET Coronary Artery Disease Father in his 80s Hypertension Brother Coronary Artery Disease Brother 56 Prostate Cancer Brother COPD No Family History No lung cancer. Social History Tobacco Use Smoking status: Never Passive exposure: Never Smokeless tobacco: Never Tobacco comments: No smoking in childhood home. No significant ETS in household since. Vaping Use Vaping Use: Never used Substance Use Topics Alcohol use: Yes Alcohol/week: 1.0 standard drink of alcohol Types: 1 Glasses of Wine (5oz) per week Comment: socially Drug use: No Current Outpatient Medications Medication Sig ondansetron orally disintegrating (ZOFRAN ODT) 4 mg disintegrating tablet Take 1 tablet by mouth every 8 hours as needed for nausea/vomiting. estradiol (ESTRACE) 0.01 % (0.1 mg/gram) vaginal cream Use 1 g vaginally every other day. At bedtime phenazopyridine (PYRIDIUM) 100 mg tablet Take 100 mg by mouth three times a day as needed for pain. cholecalciferol (VITAMIN D-3) 5,000 unit tab Take 5,000 Units by mouth once daily. apixaban (ELIQUIS) 5 mg tab(s) Take 1 tablet by mouth two times a day. simvastatin (ZOCOR) 10 mg tablet Take 1 [...] WITH VITAMIN C 1000MG FOR UTI PREVENTION ARNUITY ELLIPTA 50 mcg/actuation powder for inhalation Inhale 1 Puff as instructed once daily. (Patient not taking: Reported on 05/08/2024) No current facility-administered medications for this visit. Allergies As of Date: 05/08/2024 Allergen Noted Reaction WILLIS INHIBITORS 05/02/2017 Cough CARAFATE [SUCRALFATE] 10/07/2016 Diarrhea PROTONIX [PANTOPRAZOLE] 10/05/2016 Other: See Comments Fully Assessed 05/08/2024 REVIEW OF SYSTEMS Abdomen: No bloating, early satiety, indigestion, or increased flatulence. No abdominal pain, nausea, vomiting, diarrhea, or constipation. Bladder: No dysuria, gross hematuria, urinary frequency, urinary urgency, or incontinence. Breast: No breast lumps, nipple d/c, overlying skin changes, redness or skin retraction. Expanded ROS: N/A Allergies and current medication updated:Yes EXAM: Wt 133 lb 9.6 oz (60.6kg) GENERAL: pleasant, female in no apparent distress ABDOMEN: soft, non-tender, and no masses PELVIC: external genitalia normal, normal Bartholin's glands, urethra, Etta's glands, no vulvar lesions, good vaginal support, physiologic discharge present, normal appearing perineal body and perianal region, well estrogenized, cervix surgically absent BIMANUAL: no adnexal masses and uterus surgically absent ASSESSMENT AND PLAN: Postmenopausal Recurrent UTIs refractory to multiple treatments Current UTI on Cipro pending culture No evidence for evaluation Mycoplasma/Ureaplasma, vaginal and urine cultures pending RTO 3-4 weeks ftft including communication with physcian son > 50 mi Mo Arndt MD documented in this encounter [facility] 05-07-2024 Note [facility] 05-07-2024 History of Present illness Narrative TRANSITION CARE MANAGEMENT (TCM) FOLLOW-UP NOTE Provider Action/FYI Tcm Follow - Up Day 28 Future Appts 05/21 Jose WSTR 08/07 Famp WSTR Patient identified by name and date of : YES Spoke to patient Discharge Network Status: [id number] (OON) Discharge Summary: Pt discharged from [facility], on 04/09/24. Admitted for: Fevers JENNY PE UTI, Weakness,Tacycardic,, O2 2 LNC, LDVT Concerns: Patient states is feeling better,have recurrent UTI's, burning and a little blood, taking a red pill and it resolved the burning, started 05/06/24,called Urologist yesterday, order placed for urine test, waiting on results, and also for Urologist to call her concerning what antibiotics to prescribed, Eliquis was causing nausea, on Zofran is better non Pox 94 %, sleeping with O2, 2L, QHS Using both of her Pickle Cough dry Denies pain,sob, wheezing, fever/chills, vomiting Appetite good eating and hydrating Voiding urine, orange with the pills, BM ]05/07 Ambulating up ad maryellen, went for walk this am Fatigue denies Denies questions, concerns regarding medications, self care , no issues, stable Branch Office Administrator plan for next outreach: Will follow up tcm TIAN Education Ordered -: No Luep Grijalva RN May 07, 2024 12:14 PM documented in this encounter [facility] 05-06-2024 Telephone encounter Note Pt notified. States she will call Dr. Etienne's office. Benita Grossman RN [facility] 05-06-2024 Miscellaneous Notes Pt notified. States she will call Dr. Etienne's office. Benita Grossman RN No, will not do any orders without her being seen. She can go to urgent care otherwise. Patient calling back in thinking maybe she has a UTI instead. She is having urinary frequency now too. Asking if orders can be placed for her to leave a specimen? Last saw RR 07/2018 and she is currently scheduled with AT 05/08. Dhara Prado RN Patient notified. Dhara Prado RN Recommend cold packs and ok to take tylenol 1000 mg tid for pain until follow up. Would be ok to put on skin protectant such as Aquaphor as well prn. Nikki Benites MD Patient has appointment with AT on Monday for vaginal irritation. Denies vaginal odor or discharge. Her pain is a 5 out of 10. Asking what she can have something more than Tylenol for pain. Unable to take NSAID because she's on Eliquis. She took 500 MG of Tylenol at 8:00 AM. Advised that she could try 1,000 MG for her next dose. Patient asking if it's ok to take another one now. Eden Headley RN documented in this encounter [facility] 05-06-2024 Telephone encounter Note No, will not do any orders without her being seen. She can go to urgent care otherwise. [facility] Work Phone: 05-06-2024 Telephone encounter Note Patient calling back in thinking maybe she has a UTI instead. She is having urinary frequency now too. Asking if orders can be placed for her to leave a specimen? Last saw RR 07/2018 and she is currently scheduled with AT 05/08. Dhara Prado RN [facility] 05-06-2024 Telephone encounter Note Patient notified. Dhara Prado RN T [facility] 05-06-2024 Telephone encounter Note Recommend cold packs and ok to take tylenol 1000 mg tid for pain until follow up. Would be ok to put on skin protectant such as Aquaphor as well prn. Nikki Benites MD T [facility] Work Phone: 05-06-2024 Telephone encounter Note Patient has appointment with AT on Monday for vaginal irritation. Denies vaginal odor or discharge. Her pain is a 5 out of 10. Asking what she can have something more than Tylenol for pain. Unable to take NSAID because she's on Eliquis. She took 500 MG of Tylenol at 8:00 AM. Advised that she could try 1,000 MG for her next dose. Patient asking if it's ok to take another one now. Eden Headley RN T [facility] 05-01-2024 Telephone encounter Note The following approved medication requests have been transmitted electronically. Requested Prescriptions Signed Prescriptions Disp Refills ondansetron orally disintegrating (ZOFRAN ODT) 4 mg disintegrating tablet 30 tablet 1 Sig: Take 1 tablet by mouth every 8 hours as needed for nausea/vomiting. Authorizing Provider: RANGEL BONILLA MD [facility] 05-01-2024 Miscellaneous Notes The following approved medication requests have been transmitted electronically. Requested Prescriptions Signed Prescriptions Disp Refills ondansetron orally disintegrating (ZOFRAN ODT) 4 mg disintegrating tablet 30 tablet 1 Sig: Take 1 tablet by mouth every 8 hours as needed for nausea/vomiting. Authorizing Provider: RANGEL BONILLA MD Patient reports she started eliquis 3 weeks ago, and it is causing her to feel nauseous. Asking pcp to send Rx to [facility] for nausea medication. Pended. Last ov: 04-19-24 Next ov: 08-07-24 documented in this encounter [facility] 05-01-2024 Telephone encounter Note Patient reports she started eliquis 3 weeks ago, and it is causing her to feel nauseous. Asking pcp to send Rx to [facility] for nausea medication. Pended. Last ov: 04-19-24 Next ov: 08-07-24 [facility] 04-30-2024 Note [facility] 04-30-2024 Procedure note Associated Ord er(s): NITRIC OXIDE, EXHALED RESPIRATORY THERAPY ORAL EXHALED NITRIC OXIDE SERVICE DATE: 04/30/2024 SERVICE TIME: 3:03 PM Oral Exhaled Nitric Oxide measurement: <5.0 (ppb) Normal: Adult 5-20 ppb, pediatric (<12 years) 5-15 ppb High Normal / Increased: Adult 20-35 ppb, pediatric (<12 years) 15-25 ppb Moderately raised exhaled Nitric Oxide may indicate underlying inflammation, but note that: Cold and influenza can raise exhaled Nitric Oxide and some patients have higher baseline exhaled Nitric Oxide levels than others. High: Adult >35 ppb, pediatric (<12 years) >25 ppb Indicative of ongoing eosinophilic inflammation. Symptomatic patient likely to respond to steroids. Possible causes (if already on steroids): Poor compliance, recent allergen exposure, steroid dose inadequate, and steroid resistance. Note that not all patients with high exhaled nitric oxide levels display symptoms. Oral Exhaled Nitric Oxide measurement (Previous Encounters) Test Date Oral Exhaled Nitric Oxide (ppb) 04/30/2024 <5.0 NAME: MICHELE Perry PATIENT NAME: Norma Ferris DATE: April 30, 2024 TIME: 3:03 PM [facility] 04-30-2024 Procedure note Associated Ord er(s): NITRIC OXIDE, EXHALED RESPIRATORY THERAPY ORAL EXHALED NITRIC OXIDE SERVICE DATE: 04/30/2024 SERVICE TIME: 3:03 PM Oral Exhaled Nitric Oxide measurement: <5.0 (ppb) Normal: Adult 5-20 ppb, pediatric (<12 years) 5-15 ppb High Normal / Increased: Adult 20-35 ppb, pediatric (<12 years) 15-25 ppb Moderately raised exhaled Nitric Oxide may indicate underlying inflammation, but note that: Cold and influenza can raise exhaled Nitric Oxide and some patients have higher baseline exhaled Nitric Oxide levels than others. High: Adult >35 ppb, pediatric (<12 years) >25 ppb Indicative of ongoing eosinophilic inflammation. Symptomatic patient likely to respond to steroids. Possible causes (if already on steroids): Poor compliance, recent allergen exposure, steroid dose inadequate, and steroid resistance. Note that not all patients with high exhaled nitric oxide levels display symptoms. Oral Exhaled Nitric Oxide measurement (Previous Encounters) Test Date Oral Exhaled Nitric Oxide (ppb) 04/30/2024 <5.0 NAME: MICHELE Perry PATIENT NAME: Norma Ferris DATE: April 30, 2024 TIME: 3:03 PM documented in this encounter [facility] 04-30-2024 Note [facility] 04-30-2024 History of Present illness Narrative PULM FUNCTION: Provider: Char Landeros MD Assisting Tech: Lana Ahuja RPFT Spirometry: 1 Exhaled Nitric Oxide: 1 documented in this encounter [facility] 04-28-2024 Note [facility] 04-28-2024 Note [facility] 04-28-2024 History of Present illness Narrative TRANSITION CARE MANAGEMENT (TCM) FOLLOW-UP NOTE Provider Action/FYI Tcm Follow - Up Day 19 Future Appts 04/30 Pulm Lab WSTR 05/21 Jose WSTR 08/07 Famp WSTR Patient identified by name and date of : YES Spoke to patient Discharge Network Status: [id number] (OON) Discharge Summary: Pt discharged from [facility], on 04/09/24. Admitted for: Fevers JENNY PE UTI, Weakness,Tacycardic,, O2 2 LNC, LDVT Concerns: Patient states is feeling better, finished antibiotics on 04/26/24, having nausea, will route to PCP refill on Zofran send to [facility] in [place] Pox 95 % Using both of her Pickle Cough dry Denies pain,sob, wheezing, fever/chills, vomiting Appetite good eating and hydrating Voiding urine, yellow no pain or blood and bm without difficulty, BM 04/28 Ambulating up ad maryellen, walk out side today without oxygen Fatigue denies Denies questions, concerns regarding medications, self care , no issues, stable Branch Office Administrator plan for next outreach: Will follow up tcm TIAN Education Ordered -: Sara Grijalva RN April 28, 2024 12:49 PM documented in this encounter [facility] 04-23-2024 Note [facility] 04-23-2024 History of Present illness Narrative TRANSITION CARE MANAGEMENT (TCM) FOLLOW-UP NOTE Provider Action/FYI Tcm Follow - Up Day 14 Future Appts 04/30 Pulm Lab WSTR 05/21 Jose WSTR / Famp WSTR Patient identified by name and date of : YES Spoke to patient Discharge Network Status: [id number] (OON) Discharge Summary: Pt discharged from [facility], on 04/09/24. Admitted for: Fevers JENNY PE UTI, Weakness,Tacycardic,, O2 2 LNC, LDVT Concerns: Patient states is feeling better, have UTI on antibiotics, are tolerating O2 2L NC Pox 94% Using her Pickle Cough dry Denies pain,sob, wheezing, fever/chills, n/v Appetite good eating and hydrating Voiding urine, light yellow no pain or blood and bm without difficulty, BM 04/23/24 Ambulating up ad maryellen Fatigue denies Denies questions, concerns regarding medications, self care , no issues, stable have UTI, tolerating medication no pain just discomfort Branch Office Administrator plan for next outreach: Will follow up [facility] TIAN Education Ordered -: No Lupe Grijalva RN April 23, 2024 2:33 PM documented in this encounter [facility] 04-22-2024 Telephone encounter Note Patient notified of results and provider's instructions. Patient verbalizes understanding. Clarita Neely LPN [facility] 04-22-2024 Miscellaneous Notes Patient notified of results and provider's instructions. Patient verbalizes understanding. Clarita Neely LPN UTI should respond to atb given. Continue with follow up with urology. Especially if symptoms continue. documented in this encounter [facility] 04-22-2024 Telephone encounter Note UTI should respond to atb given. Continue with follow up with urology. Especially if symptoms continue. [facility] 04-19-2024 Note [facility] 04-19-2024 History of Present illness Narrative Chief Complaint Patient presents with: Urinary Problem HPI Norma Ferris is a 78 year old female who presents here today for Above Complaints.. Patient with hx of frequent UTIs. Was just on atb for UTI. Repeat urine 4 days ago that was negative. Report last night starting having symptoms again. Dysuria, frequency, dark color urine. No fevers. No back pain Contacted urology and was going to give urine sample today but no order was in at the lab. office was already closed for the day. Past medical history, appointments, medications, allergies reviewed. 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 Duarte at [facility]. 08/18/[address] Fischer at [facility] throat clearing 02/01/2018 Ectopic gastric mucosa of multiple sites 05/06/[address] Granado 04/2022 Elevated fasting blood sugar 08/14/2018 Encounter for gynecological examination without abnormal finding 07/20/2016 Sees [facility]. Essential hypertension 07/20/2016 GERD without esophagitis 01/14/2008 Hemorrhoids 03/03/2017 Hiatal hernia History of pulmonary embolus (PE) 04/08/202404/2024: 4 of them History of recurrent UTIs 07/19/2018 History of subdural hematoma 03/03/2017 After a fall Hypoxia 04/15/2024 After PE's 04/2024 Lichen sclerosus et atrophicus 03/03/2017 Living will on file at physician's office 01/16/2023 DPA: Nate (Son) Lumbago 03/21/[address] Duarte at [facility]. Medicare annual wellness visit, subsequent 08/14/2018 Medicare Part B: 06/06/2008 last done: 08/23/2019 Migraine without aura and without status migrainosus, not intractable 07/20/2016 Mixed hyperlipidemia 01/14/2008 Postmenopausal atrophic vaginitis 06/06/2012 Pulmonary nodules 10/03/201609/2016, follow uo CT in a year, 08/[address] Zheng Right thyroid nodule 10/03/2016 Had benign biopsy 09/2016 at [facility] Seasonal allergies 07/20/2016 Spinal stenosis, lumbar [...] of Onset Coronary Artery Disease Mother Fatal [place] in her 80s Diabetes Father ADULT ONSET Coronary Artery Disease Father in his 80s Hypertension Brother Coronary Artery Disease Brother 56 Prostate Cancer Brother COPD No Family History No lung cancer. Patient Allergies ALLERGIES Allergen Reactions Willis Inhibitors Cough Carafate [Sucralfat* Diarrhea Protonix [Pantopraz* Other: See Comments Stomach pain Current Medications Current Outpatient Medications on File Prior to Visit Medication Sig ARNUITY ELLIPTA 50 mcg/actuation powder for inhalation Inhale 1 Puff as instructed once daily. estradiol (ESTRACE) 0.01 % (0.1 mg/gram) vaginal cream Use 1 g vaginally every other day. At bedtime phenazopyridine (PYRIDIUM) 100 mg tablet Take 100 mg by mouth three times a day as needed for pain. cholecalciferol (VITAMIN D-3) 5,000 unit tab Take 5,000 Units by mouth once daily. ondansetron (ZOFRAN) 4 mg tablet Take 4 mg by mouth every 8 hours as needed. apixaban (ELIQUIS) 5 mg tab(s) Take 1 tablet by mouth two times a day. simvastatin (ZOCOR) 10 mg tablet Take 1 [...] WITH VITAMIN C 1000MG FOR UTI PREVENTION fluticasone (FLONASE) 50 mcg/actuation nasal spray Use 2 Sprays in each nostril once daily. Rinse mouth after use. (Patient not taking: Reported on 04/19/2024) No current facility-administered medications on file prior to visit. Social History Social History Tobacco Use Smoking status: Never Passive exposure: Never Smokeless tobacco: Never Tobacco comments: No smoking in childhood home. No significant ETS in household since. Vaping Use Vaping Use: Never used Substance Use Topics Alcohol use: Yes Alcohol/week: 1.0 standard drink of alcohol Types: 1 Glasses of Wine (5oz) per week Comment: socially Drug use: No Review of Symptoms REVIEW OF SYSTEMS GENERAL: No weight loss, malaise or fevers See hpi EXAM: BP 112/86 (BP Site: Left Arm, BP Position: Sitting, BP Cuff Size: Regular Adult) Pulse 115 Temp 37 C (98.6 F) Resp 16 Wt 61.2 kg (135 lb) SpO2 98% BMI 24.69 kg/m General Appearance: Well appearing, alert, in no acute distress, well-hydrated, well nourished.. Lungs: Lungs clear to auscultation. No wheezing, rhonchi, rales.. Heart: RRR without murmur, gallop, or rubs. No ectopy. Abdomen: Normal abdominal exam, Abdomen soft, non-tender. Bowel sounds normal. No masses, organomegaly, Negative CVA tenderness. Health Maintenance List Behavioral Health Screening Never done RSV Vaccine(1 - 1-dose 60+ series) due on 01/23/2025 Covid-19 Vaccine( season) due on 01/23/2025 BP Controlled (<130/80) due on 01/23/2025 Annual PCP Team Chronic Disease Visit due on 04/15/2025 Diabetes Screening due on 01/16/2027 DTaP,Tdap,Td Vaccine(3 - Td or Tdap) due on 09/09/2028 Bone Density Screening Completed Influenza Vaccine Completed Advance Directive Discussion Completed Shingrix Vaccine Completed Pneumococcal Vaccine: 65+ Completed Fecal Occult Blood Discontinued Colonoscopy Discontinued Data reviewed Latest Ref Rng 04/19/2024 GLUCOSE UA (POCT) Negative mg/dL Negative BILIRUBIN UA (POCT) Negative Moderate ! KETONE UA (POCT) Negative mg/dL 15 ! SPECIFIC GRAVITY UA (POCT) 1.005 - 1.030 >=1.030 HEMOGLOBIN/BLOOD UA (POCT) Negative Large ! PH UA (POCT) 4.5 - 8.0 5.5 PROTEIN UA (POCT) Negative mg/dL >=300 ! UROBILINOGEN UA (POCT) Normal E.U./dL 1.0 NITRITE UA (POCT) Negative Positive ! LEUKOCYTES UA (POCT) Negative Large ! COLOR UA (POCT) Brown CLARITY UA (POCT) Slightly Cloudy Legend: ! Abnormal ASSESSMENT/PLAN: 1. Dysuria - ICD9: 788.1, ICD10: R30.0 (primary diagnosis) recurrent - UA positive for rosa elena esterase, hematuria, proteinuria, and nitrates - Send urine for culture - Begin treatment with Macrobid 100 mg BID for 7 days - Patient education for prevention given - patient plans to contact urology again next week. - URINE CULTURE 2. Frequent UTI - ICD9: 599.0, ICD10: N39.0 As above. - URINE CULTURE Rayna Martinez PA-C documented in this encounter [facility] 04-19-2024 Telephone encounter Note Patient being seen. [facility] Work Phone: 04-19-2024 Miscellaneous Notes Patient being seen. Patient calls and states that she is having urinary frequency and burning. Patient states that this started yesterday afternoon. Patient asking if provider can place order to get urine checked? Patient knows that urine test from 04/15 did not show anything. Please review and advise, Rylie Kaur RN documented in this encounter [facility] 04-19-2024 History of Present illness Narrative Images from the original note were not included. . Respiratory Bradford Note Patient name: Norma Ferris PCP: Rangel Bonilla MD Referring Physician: Same Consultation requested by Dr. Bonilla for an opinion regarding oxygen requirement. My final recommendations will be communicated back to the requesting physician by way of shared Medical record or letter to requesting physician via US mail. CC: Oxygen requirement, pulmonary embolism HPI: Norma Ferris 78 year old female non-smoker with PMH significant for hiatal hernia/BE/GERD, HTN, history of subdural hematoma, HLD, seasonal allergies, spinal stenosis, migraines, recent PE requiring supplemental oxygen. Previously see by Dr. Zheng back in 2018 for pulmonary nodules. Recent history notable for recurrent urinary tract infections. She was seen in ED for Enterococcal UTI, noted to be hypoxemic with elevated D-dimer. VTE work-up showed bilateral subsegmental pulmonary emboli without cor pulmonale and bilateral DVT. Dicharged on Eliquis and oxygen. She had no significant shortness of breath, chest pain or lower extremity edema. No recent surgeries, travel, sedentary history, prior history of VTE. No family history of clotting disorders. No history of COVID. Her only respiratory symptom was cough without sputum production that has been present for 2 months. She did have fever. She has had a 2-year history of constant throat clearing. Apparently she has Saravia's esophagus and has been evaluated by ENT. Her call center operator recently started her on Arnuity 50 mcg, famotidine in the evening and Nexium in the morning. She denies any history of wheezing, chest tightness, shortness of breath. Review of Dr. Granado's most recent evaluation states that she has a small sliding hiatal hernia, esophagram shows barium pill trapped at GE junction, previous EGD consistent with Saravia's esophagus with plans for gastric mucosal ablation if she does not respond to aggressive acid suppression. ENT evaluation pertinent for severe edema of her intra arytenoid area. DME: [employer] 2 L DATA: Labs: D-Dimer 3.21 FEU/ug/m (0.27-0.49) Imaging / Diagnostic Studies: STUDY: CTA CHEST 04/05/24 REASON FOR EXAM: Female, 78 years old. PE FINDINGS: Multiple bilateral intraluminal filling defects involving both right and left pulmonary arterial branches in the upper and lower lobes. The thrombi extend into the distal portion of the right pulmonary artery as well as the left pulmonary artery. Normal thoracic aorta and visualized great vessels. There is no demonstrated aortic dissection. Normal heart and pericardium. There are visualized mediastinal lymph nodes, which are within normal size limits, and with normal morphology. Normal hilar regions. Normal visualized trachea and bronchi. The lungs are well expanded. Small bilateral pleural effusions right greater than left with bibasilar infiltration and/or atelectasis. Normal chest wall structures. There are degenerative changes of thoracic spine. Normal visualized upper abdomen. Review of CTA of the chest shows bilateral subsegmental pulmonary emboli, possible right lower lobe pulmonary infarction with pleural effusion. ECHO [facility] 04/06/24: Left Ventricle Normal left ventricle. The estimated ejection fraction is 55-60 %. Right Ventricle Normal right ventricle. Normal systolic function. Atria Normal left atrium. Normal right atrium. Mitral Valve The mitral valve is structurally normal. No prolapse or stenosis seen. Tricuspid Valve Normal tricuspid valve. Aortic Valve The aortic valve is not well visualized in the short axis view. Pulmonic Valve The pulmonic valve is not well visualized. Great Vessels Normal aortic root. Pericardium/Pleural No pericardial effusion. 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 Duarte at [facility]. 08/18/[address] Fischer at [facility] throat clearing 02/01/2018 Ectopic gastric mucosa of multiple sites 05/06/[address] Granado 04/2022 Elevated fasting blood sugar 08/14/2018 Encounter for gynecological examination without abnormal finding 07/20/2016 Sees [facility]. Essential hypertension 07/20/2016 GERD without esophagitis 01/14/2008 Hemorrhoids 03/03/2017 Hiatal hernia History of pulmonary embolus (PE) 04/08/2024 04/2024: 4 of them History of recurrent UTIs 07/19/2018 History of subdural hematoma 03/03/2017 After a fall Hypoxia 04/15/2024 After PE's 04/2024 Lichen sclerosus et atrophicus 03/03/2017 Living will on file at physician's office 01/16/2023 DPA: Nate (Son) Lumbago 03/21/[address] Duarte at [facility]. Medicare annual wellness visit, subsequent 08/14/2018 Medicare Part B: 06/06/2008 last done: 08/23/2019 Migraine without aura and without status migrainosus, not intractable 07/20/2016 Mixed hyperlipidemia 01/14/2008 Postmenopausal atrophic vaginitis 06/06/2012 Pulmonary nodules 10/03/201609/2016, follow uo CT in a year, 08/[address] Zheng Right thyroid nodule 10/03/2016 Had benign biopsy 09/2016 at [facility] Seasonal allergies 07/20/2016 Spinal stenosis, lumbar region, without neurogenic claudication 03/21/2012 ALLERGIES Allergen Reactions Willis Inhibitors Cough Carafate [Sucralfat* Diarrhea Protonix [Pantopraz* Other: See Comments Stomach pain ARNUITY ELLIPTA 50 mcg/actuation powder for inhalation Inhale 1 Puff as instructed once daily. estradiol (ESTRACE) 0.01 % (0.1 mg/gram) vaginal cream Use 1 g vaginally every other day. At bedtime phenazopyridine (PYRIDIUM) 100 mg tablet Take 100 mg by mouth three times a day as needed for pain. cholecalciferol (VITAMIN D-3) 5,000 unit tab Take 5,000 Units by mouth once daily. ondansetron (ZOFRAN) 4 mg tablet Take 4 mg by mouth every 8 hours as needed. apixaban (ELIQUIS) 5 mg tab(s) Take 1 tablet by mouth two times a day. simvastatin (ZOCOR) 10 mg tablet Take 1 [...] WITH VITAMIN C 1000MG FOR UTI PREVENTION fluticasone (FLONASE) 50 mcg/actuation nasal spray Use 2 Sprays in each nostril once daily. Rinse mouth after use. (Patient not taking: Reported on 04/19/2024) Social History Tobacco Use Smoking status: Never Passive exposure: Never Smokeless tobacco: Never Tobacco comments: No smoking in childhood home. No significant ETS in household since. Vaping Use Vaping Use: Never used Substance Use Topics Alcohol use: Yes Alcohol/week: 1.0 standard drink of alcohol Types: 1 Glasses of Wine (5oz) per week Comment: socially Drug use: No FAMILY HISTORY Problem Relation Age of Onset Coronary Artery Disease Mother Fatal [place] in her 80s Diabetes Father ADULT ONSET Coronary Artery Disease Father in his 80s Hypertension Brother Coronary Artery Disease Brother 56 Prostate Cancer Brother COPD No Family History No lung cancer. PAST SURGICAL HISTORY Procedure Laterality Date 2D [...] TUBE OVARY 1987 Hysterectomy, FUAD/BSO VAGINAL HYSTERECTOMY PMH, Social history, family history and surgical history reviewed and updated in EMR REVIEW OF SYSTEMS: CONSTITUTIONAL: No fevers, chills, nightsweats, unintended weight loss HEENT: Denies nasal congestion/sinus symptoms, problematic allergy problems. Migraine headaches. Throat clearing CARDIOVASCULAR: No chest pain, dyspnea, palpitations, orthopnea, PND, edema. PULM: See HPI GI: No dysphagia/odynophagia, or reflux symptoms. No abdominal pain : Recurrent UTIs NEURO: No new balance problems, peripheral weakness/paresthesias or numbness of concern. MUSC-SKEL: No joint pain, swelling, or erythema. PSY: No concerns regarding depression, anxiety INTEGUMENTARY: No new skin changes, eczema PHYSICAL EXAMINATION: BP 148/86 Pulse 117 Temp 98.6 Resp 19 Ht 5' 2 (1.58m) Wt 134 lb (60.8kg) SpO2 97[2L per NC]% BMI 24.50 kg/(m^2). General Appearance: Elderly female, NAD. Skin: Skin color, texture, turgor normal, no suspicious rashes or lesions. Head: Normocephalic, no masses, lesions, tenderness or abnormalities. Eyes: Sclera, conjunctiva normal. Oropharynx: No oral lesions or thrush. Neck: No JVD, no masses, no adenopathy. Lungs: Not labored, normal to percussion, no wheezes or crackles, somewhat diminished breath sounds. Heart: Tachycardia, intermittently irregular, no murmurs. Extremities: Mild pedal edema on the right, no clubbing. Assessment/Plan: 1. Multiple subsegmental pulmonary emboli without cor pulmonale -Bilateral pulmonary emboli, unprovoked. Has upcoming appointment with hematology to assess for hypercoagulability and need for chronic therapy -Assume that hypoxemia will improve once her clot burden has resolved 2. Acute hypoxemic respiratory failure -Instructed patient on self monitored SpO2 target of 90% or greater -Start with resting measurement off oxygen. If oxygen saturation is adequate with rest then she SpO2 with exertion -Ordered POC for ease of ambulation 3. Chronic throat clearing -Instructed patient to discontinue Arnuity. Ordered spirometry and exhaled nitric oxide level -Clinical history not consistent with airways disease or upper airway cough syndrome. Has known Saravia's esophagus with vocal cord edema. May have component of habitual/psychogenic throat clearing I spent a total of 80 minutes on the date of the service which included preparing to see the patient, [id number] patient care, completing clinical documentation, obtaining and/or reviewing separately obtained history, performing a medically appropriate examination, counseling and educating the patient/family/caregiver, ordering medications, tests, or procedures, and independently interpreting results (not separately reported). Char Landeros MD Respiratory [facility] documented in this encounter [facility] 04-19-2024 Note [facility] 04-19-2024 Telephone encounter Note Patient calls and states that she is having urinary frequency and burning. Patient states that this started yesterday afternoon. Patient asking if provider can place order to get urine checked? Patient knows that urine test from 04/15 did not show anything. Please review and advise, Rylie Kaur RN [facility] 04-17-2024 Note [facility] 04-17-2024 History of Present illness Narrative TRANSITION CARE MANAGEMENT (TCM) FOLLOW-UP NOTE Provider Action/FYI Tcm Follow - Up Day 8 Future Appts 04/19 Pulm WSTR 05/21 Jose [facility]STR 08/07 [facility] Patient identified by name and date of : YES Spoke to patient Discharge Network Status: Tnn-[id number] (OON) Discharge Summary: Pt discharged from [facility], on 04/09/24. 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 Izabela Yepez LPN [facility] 04-16-2024 Miscellaneous Notes Pt notified of results & voiced understanding. Izabela Yepez LPN Let patient know her UA and culture were negative. documented in this encounter [facility] 04-16-2024 Telephone encounter Note Let patient know her UA and culture were negative. [facility] 04-15-2024 Telephone encounter Note Scheduled with patient [facility] Work Phone: 04-15-2024 Miscellaneous Notes Scheduled with patient Consult to Hematology from PCP. Please call to schedule. Phone number has been verified. Nikki Rodriguez documented in this encounter [facility] 04-15-2024 Telephone encounter Note Consult to Hematology from PCP. Please call to schedule. Phone number has been verified. Nikki Rodriguez [facility] 04-15-2024 Note [facility] 04-15-2024 History of Present illness Narrative Transitional Care Management TCM Eligibility Documentation Program: Transitional Care Management Status: Enrolled Effective Dates: 04/10/2024 - present Responsible Staff: Lupe Grijalva RN Discharge date: 04/09/2024 (Program start) Date of initial contact: 04/10/2024 Initial contact Target status: Successful; Contact made within 2 business days post-discharge Patient would like a referral to Hematology. Patient saw Dr. Leos in hospital and ECHO completed and is ok. They don't need to see patient again. Patient indicated that they are traveling at the end of May. Is she able to travel and can she have the oxygen on the plane if she still needs it. Patient would also like another urine test to make sure UTI has cleared up. She has completed the antibiotic. Patient was placed on Predisolone 15 mg daily and was prescribed by Dr. Granado. Could this have caused the clots? Provider Documentation Norma Ferris is a 78 year old female here today for a follow up from recent hospitalization. I have reviewed the patient's hospital course including discharge summary, discharge medications , and follow up needs with the patient and any family members present at today's visit. HPI Patient presented to [facility] ER on 04/05/2024 with persistent generalized weakness and fever. She had been recently admitted for UTI due to Enterococcus. In the ER she was tachycardic and her D-dimer was elevated. Her CT came back positive with multiple bilateral PE's. Patient did have a LE dopplers done which did show bilateral lower extremity DVT's Patient did require home O2. She was seen by cardiology and they advised her that her echo was fine along with the EKG's they did and that she did not need a stress test. Since being home she has not been short of breath and no more fevers. No chest pain, nausea, vomiting or diarrhea. No swelling of her legs. Patient is using a pulmonary device to help loosen up her mucus which it does but she can not get it up high enough to spit it out. PHYSICAL EXAMINATION BP 140/90 (BP Site: Right Arm, BP Position: Sitting, BP Cuff Size: Regular Adult) Pulse 106 Temp 37.1 C (98.8 F) (Tympanic) Resp 18 Wt 61.2 kg (135 lb) SpO2 97% BMI 24.89 kg/m BP 134/82 Pulse 106 Temp 37.1 C (98.8 F) (Tympanic) Resp 18 Wt 61.2 kg (135 lb) SpO2 97% BMI 24.89 kg/m GENERAL: well appearing, alert, in no acute distress HEART: regular rhythm. No murmur, rubs or gallops. Slightly increased rate. LUNGS: clear to auscultation, no wheezing, rhonchi, or crackles ABDOMEN: soft, non-tender, non-distended, no masses or organomegaly EXTREMITIES: No skin discoloration. Has mild edema at the ankles. A/P ASSESSMENT/PLAN: 1. Hypoxia - ICD9: 799.02, ICD10: R09.02 (primary diagnosis) - patient to continue the O2 for know - CONSULT TO PULMONARY MEDICINE for management pf her O2 needs. 2. History of pulmonary embolus (PE) - ICD9: V12.55, ICD10: Z86.711 - CONSULT TO HEMATOLOGY: to help determine if chronic anticoagulation is needed. - CONSULT TO PULMONARY MEDICINE - advised patient on increased walking and if laying down for a while to flex her feet off and on to squeeze the calf muscles. 3. Essential hypertension - ICD9: 401.9, ICD10: I10 - Controlled - Continue current medications - Recommend home blood pressure monitoring, to bring results to next visit - Encouraged sodium restriction, DASH or Mediterranean diet - Recommend regular aerobic exercise Advise with sitting to raise her legs up to reduce swelling. 4. Acute cystitis without hematuria - ICD9: 595.0, ICD10: N30.00 - will check UA and culture. Completed the antibiotic while she was inpatient. Requested Prescriptions Signed Prescriptions Disp Refills apixaban (ELIQUIS) 5 mg tab(s) 60 tablet 1 Sig: Take 1 tablet by mouth two times a day. Keep f/u in Aug or sooner if needed. I spent a total of 46 minutes on the date of the service which included preparing to see the patient, [id number] patient care, completing clinical documentation, performing a medically appropriate examination, counseling and educating the patient/family/caregiver and ordering medications, tests, or procedures. Rangel Bonilla MD documented in this encounter [facility] 04-10-2024 History of Present illness Narrative TRANSITION CARE MANAGEMENT (TCM) INITIAL CONTACT Stock Buyer Outreach Provider Action/FYI: Patient was admitted into the hospital on 04/05/2024 and D/C on 04/09/2024 with Bilateral Pulmonary Emboli Spoke with patient 04/10/2024 and she is currently on Elquis and has been taking as prescribed. She is ok on Oxygen prescribed from hospital and currently on 2 litters. We are having patient come in at 8:20 am instead of 8:40 so we have time to review everything. Patient was notified and voiced understanding. Initial contact with patient post discharge, spoke to patient. Patient identified by name and . TRANSITION CARE MANAGEMENT INITIAL OUTREACH DOCUMENTATION: 04/10/2024 Date of Outreach: Outreach Attempt 1: Contact Made Date of Discharge 04/09/2024 SUMMARY: -Pt discharged from 04/05/2024 on 04/09/2024. -Admitted for: Bilateral Pulmonary Emboli Do you have a hospital follow up appointment with your PCP? Appointment on 04/15/[address] Bonilla. Yes. Remind patient of appointment date, time, and location. If not within 14 calendar days of discharge - please reschedule accordingly. MEDICATIONS: Many patients have questions or concerns about their medications once they are home. Were you prescribed any new medications? Yes Were you told to hold any medications? No Were any of your medications discontinued? Yes Do you have any questions about getting or taking your medications? No Your discharge instructions/After visit Summary (AVS) are important in guiding you through the recovery process. Is there anything I might help you understand? No Do you have all the necessary equipment and supplies at home? Yes Medical records from recent hospitalization: [facility] Everywhere documented in this encounter [facility] 04-10-2024 History of Present illness Narrative TCM Home Visit Referral Source of Stratification: [facility] Hospital Admission Status: Discharged Readmission Risk Score: n/a Patient's zip code: [address] Is zip code within program service area: No Patient meets program referral criteria: No Patient does not qualify for High Risk TCM Home Visit program due to: Readmission Risk Score does not meet criteria Disposition: Patient does not qualify for HRTIC, will provide TCM outreach follow-up for 30-days Lupe Grijalva RN April 10, 2024 10:10 AM TRANSITIONAL CARE MANAGEMENT (TCM) COMMUNITY MONITORING PROGRAM Provider Action/FYI: Initial TCM Outreach Navigation Please assist with scheduling TCM Hospital Discharge Follow up. TCM Eligible Until 04/23/24 Thank you Future Appts 04/15 [facility] 08/07 [facility] Patient states is feeling better O2 2L NC Denies pain,sob, cough ,wheezing, fever/chills, n/v Appetite good eating and hydrating Voiding urine, light yellow no pain or blood and bm without difficulty, BM 04/10/24 Ambulating up ad maryellen Fatigue denies Denies questions, concerns regarding medications, self care , no issues, stable SUMMARY: Discharge Network Status: Vrs-yi-Nzkhyot (OON) Discharge Pt discharged from [facility], on 04/09/24. Admitted for: Fevers JENNY PE UTI, Weakness,Tacycardic,, O2 2 LNC, LDVT Contact made with patient: Yes Hi my name is Lupe Grijalva RN and I am calling from the [facility] on behalf of your PCP, Rangel Bonilla MD I understand you were recently in the hospital so I am calling to check in with you to ensure you are feeling well now that you're home. May I ask you a few questions related to your hospital stay and well-being? Yes Contact with patient post discharge, spoke to patient. Patient identified by name and . Do you feel your health is BETTER, WORSE, or the SAME since leaving the hospital? Better ACTION TAKEN: Patient indicated symptoms are better or same, no action required. Continue outreach. MEDICATIONS: Many patients have questions or concerns about their medications once they are home. Do you have any questions about taking your medications or which medication you should be on? No Do you need any medication refills at this time, including any of the medications you might take only when needed? No ACTION TAKEN: No action required For RNs or Pharmacy completing outreach ONLY, was a medication review completed? Yes SOCIAL: We would like to make sure you have what you need so that your basics needs are met - including your personal safety, food, housing and medications. Would you like to speak with a social work steam boiler fireman to help give you support for any of these needs? No It can be normal to feel anxious or down during a time like this. Would you like to talk to a mental health professional about how you have been feeling? No ACTION TAKEN: No action taken DISCHARGE INTRUCTIONS: Your discharge instructions / After Visit Summary (AVS) are important in guiding you through the recovery process. Do you have any questions related to your discharge instructions? No Do you have all the necessary equipment and supplies at home? Yes ACTION TAKEN: No action required I would like to help you schedule a hospital follow-up virtual or telephone visit with your PCP. This is a great way for you to connect with your provider to ensure you have safely transitioned home. If you are agreeable, I will send your request to a printer apprentice who will contact and assist you with that appointment. This will give you an opportunity to ask any questions or address any concerns you may have with your PCP. Inform the patient that if they have any questions or concerns prior to that appointment, to call their PCP's office right away. ACTION TAKEN: No action required, patient already has an appointment scheduled. Your doctor would like us to remind you of the recommendations regarding the coronavirus (Covid19) outbreak: Avoid public places as much as possible. Avoid close contact (within 6 feet) with others you don t live with, especially if they are sick. Stay home if you are sick. Wash your hands regularly for at least 20 seconds with soap and water. Wear a cloth mask in public places to help reduce community spread. Do not go to your Doctor s office unless instructed to do so. For any non-emergency symptoms, call your Doctor s office to get instructions on how to manage (we might recommend a telephone or virtual visit). For emergency symptoms, proceed to Emergency Department as usual but inform them of cough and fever symptoms VICKI if present (or call on the way if possible). TIAN Education Ordered -: No Lupe Grijalva RN April 10, 2024 10:22 AM documented in this encounter [facility] 04-09-2024 Note [facility] Medical Records Department [address] [place] [address] Discharge Summary 04/09/24 1430 MR#: [id number] Acct: [id number] Name: NORMA FERRIS Rep #: [id number] : 1945 78 From: Yung Bell MD PCP: Dr. Rangel Bonilla MD Status:ADM IN Location: [facility] [id number] Providers Date of Admission: 04/05/24 Date of Discharge: 04/09/24 Primary Care Physician: Dr. Rangel Bonilla MD Consultations 04/07/24 10:58 Consult: Infectious Disease Routine Consulting Provider: Don Gibson Reason for Consult: High fever, Rhino virus, antibiotics broadened to vanco and zosyn EMERGENT Consult: No Notified: Yes Date Notified: 04/07/24 Time Notified: 10:58 Method of Notification: Text 04/08/24 14:45 Consult: Cardiology Routine Consulting Provider: Mark Leos Reason for Consult: New Afib, +venous duplex EMERGENT Consult: No Notified: Yes Date Notified: 04/08/24 Time Notified: 14:52 Method of Notification: Text Comments:: Family request Reason For Visit: BILATERAL PULMONARY EMBOLI Diagnosis Discharge Diagnosis (1) Viral illness: Status: Acute Code(s): B34.9 - Viral infection, unspecified (2) Bilateral pulmonary embolism: Status: Acute Code(s): I26.99 - Other pulmonary embolism without acute cor pulmonale (3) UTI (urinary tract infection): Status: Acute Code(s): N39.0 - Urinary tract infection, site not specified Qualifiers: Urinary tract infection type: acute cystitis Hematuria presence: without hematuria Q ualified Code(s): N30.00 - Acute cystitis without hematuria Plan Patient is an 78-year-old lady admitted with progressive generalized weakness and fever. She had recently been admitted for UTI treated for Enterococcus faecalis. She was found to be tachycardic on admission D-dimer came back elevated subsequent imaging studies demonstrated multiple bilateral pulmonary embolism. Admitted to a monitored bed for further management 1. Acute pulmonary embolism ??? Patient admitted to a monitored bed. 2D echo demonstrated EF of 55 to 60% with normal RV. Patient treated with therapeutic Lovenox Case was discussed with patient's son who requested for bilateral lower extremity duplex ??? 04/09/2028. Venous duplex demonstrated Acute deep vein thrombosis is noted in the right posterior tibial vein, peroneal vein, soleus vein. Acute deep vein thrombosis is noted in the left tibio- peroneal trunk vein, posterior tibial vein, peroneal vein, soleus vein. Patient still requiring oxygen currently 2 L at rest. Plan is for patient to be assessed for home oxygen ??? I have reviewed the oxygen testing, and this patient qualifies for the home equipment and portability. The patient is mobile in the home and the community. 2. Acute rhinovirus pneumonia ??? Manage symptomatically -04/09/2020 chest x-ray obtained the day prior demonstrated blunting of both costophrenic angles prominence more on the left side suggestive of bibasilar atelectasis. Patient still requiring oxygen currently 2 L at rest 3. Leukocytosis ??? Suspected to be secondary to superimposed bacterial pneumonia patient remains on broad-spectrum antibiotic therapy consult placed to ID ??? Patient WBC count trending down 4. Tachycardia ??? EKG demonstrated sinus tachycardia with PACs. 5. Hypokalemia ??? Corrected per protocol 6. Recent acute cystitis with Enterococcus faecalis ??? Treated with Augmentin 7. GERD with Saravia's esophagus ??? On famotidine 8. Dyslipidemia -Patient is on statin therapy, continued at home dose Time spent in the patient's overall evaluation,decision-making process, review of diagnostic data, adjustment of management, discussion with other providers, nursing nursing and ancillary staff involved in patient's care documentation, 40 Minutes Medications at Discharge Home Medications ascorbic acid (vitamin C) 1,000 mg capsule,extended release 1 cap PO QHS vitamin 04/07/22 methenamine hippurate 1 gram tablet 1 g PO QHS urinary tract health 04/07/22 simvastatin 10 mg tablet 10 mg PO DAILY cholesterol 11/08/23 sumatriptan succinate 100 mg tablet 100 mg PO Q2H PRN migraine headache 11/08/23 beclomethasone dipropionate 80 mcg/actuation HFA breath activated aerosol 1 inh inhalation Q12H breathing #10.6 grams 01/31/24 esomeprazole magnesium 20 mg capsule,delayed release 20 mg PO DAILY reflux #30 caps 01/31/24 famotidine 20 mg tablet 20 mg PO QHS reflux #60 tabs 01/31/24 ondansetron 4 mg disintegrating tablet 4 mg PO TID PRN nausea and vomiting #21 tabs 03/24/24 apixaban 5 mg tablet (Eliquis) 5 mg PO BID #70 tabs 04/09/24 Physical Exam Narrative GENERAL: cooperative HEENT: Atraumatic; normocephalic EYES; Anicteric, Normal Conjunctiva NECK; supple, normal thyroid, RESPIRATORY: Diminished to auscultation CARDIOVASCULAR: Regular S1 S2, GI: soft, normoact (more content not included)... [facility] 04-08-2024 Telephone encounter Note Noted. [facility] 04-08-2024 Miscellaneous Notes Noted. Pt called to cancel apt in the office today 04-08-24 to let you know she has cancelled her apt today because she is in [facility] with 4 blood clots in her lungs. Will call back to schedule a hospital follow up. Telma Venegas LPN documented in this encounter [facility] 04-08-2024 Telephone encounter Note Pt called to cancel apt in the office today 04-08-24 to let you know she has cancelled her apt today because she is in [facility] with 4 blood clots in her lungs. Will call back to schedule a hospital follow up. Telma Venegas LPN [facility] 04-04-2024 Telephone encounter Note Called and spoke with patient in detail. She verbalized understanding. Scheduled for 40 min follow up with Dr. Bonilla on 04/09/24. Waleska Cespedes MA [facility] 04-04-2024 Miscellaneous Notes Called and spoke with patient in detail. She verbalized understanding. Scheduled for 40 min follow up with Dr. Bonilla on 04/09/24. Waleska Cespedes MA Please explain to patient that I had my staff call her because the changes on her recent EKG were new compared to her previous ones. This was not an issue with premature beats. I'm concerned she may have an underlying heart issue and I need her to be seen in the office. If she is going to choose to ignore this request she needs to understand she may be at increased risk for a heart attack and potentially . Patient was D/C from [facility] on 04/02/2024. Let patient know that her EKG was abnormal and Dr Bonilla would like her seen and to set up a Stress Test. Patient indicated that has to explain this to everyone. She saw Dr. Leos a few years ago for her heart. He went into great detail that her heart was ok but EKG's could appear abnormal. They did do a stress test back then and everything is ok. Patient Declined coming in for this issue. Dodie Vazquez MA Patient is currently in the [facility]. See ER Documents on PCP desk. Dodie Vazquez MA Patient was seen in the [facility] this weekend. Her EKG was abnormal and she was asymptomatic with no c/o CP or shortness of breath. Needs seen this week in [place] to get set up for a stress test. documented in this encounter [facility] 04-03-2024 Telephone encounter Note Please explain to patient that I had my staff call her because the changes on her recent EKG were new compared to her previous ones. This was not an issue with premature beats. I'm concerned she may have an underlying heart issue and I need her to be seen in the office. If she is going to choose to ignore this request she needs to understand she may be at increased risk for a heart attack and potentially . [facility] 04-03-2024 Telephone encounter Note Patient was D/C from [facility] on 04/02/2024. Let patient know that her EKG was abnormal and Dr Bonilla would like her seen and to set up a Stress Test. Patient indicated that has to explain this to everyone. She saw Dr. Leos a few years ago for her heart. He went into great detail that her heart was ok but EKG's could appear abnormal. They did do a stress test back then and everything is ok. Patient Declined coming in for this issue. Dodie Vazquez MA [facility] 04-02-2024 Note [facility] Medical Records Department [address] [place] [id number] Discharge Summary 04/02/24 1022 MR#: [id number] Acct: [id number] Name: NORMA FERRIS Rep #: [id number] : 1945 78 From: Hood Bennett DO PCP: Dr. Rangel Bonilla MD Status:DIS JEROME Location: [place] [address] Providers Date of Admission: 04/01/24 Date of Discharge: 04/02/24 Primary Care Physician: Dr. Rangel Bonilla MD Reason For Visit: UTI Diagnosis Discharge Diagnosis (1) UTI (urinary tract infection): Status: Acute Code(s): N39.0 - Urinary tract infection, site not specified Qualifiers: Hematuria presence: without hematuria Urinary tract infection type: acute cystitis Q ualified Code(s): N30.00 - Acute cystitis without hematuria (2) Viral illness: Status: Acute Code(s): B34.9 - Viral infection, unspecified (3) Cardiac arrhythmia: Status: Acute Code(s): I49.9 - Cardiac arrhythmia, unspecified Qualifiers: Arrhythmia type: unspecified cardiac arrhythmia Qualified Code(s): I49.9 - Cardiac arrhythmia, unspecified (4) Cough: Status: Acute Code(s): R05.9 - Cough, unspecified Qualifiers: Cough type: acute Qualified Code(s): R05.1 - Acute cough (5) Essential (primary) hypertension: Status: Chronic Code(s): I10 - Essential (primary) hypertension Plan 1. Acute cystitis #2 sinus arrhythmias #3 essential hypertension #4 hyperlipidemia Medications at Discharge Home Medications ascorbic acid (vitamin C) 1,000 mg capsule,extended release 1 cap PO QHS vitamin 04/07/22 methenamine hippurate 1 gram tablet 1 g PO QHS urinary tract health 04/07/22 simvastatin 10 mg tablet 10 mg PO DAILY cholesterol 11/08/23 sumatriptan succinate 100 mg tablet 100 mg PO Q2H PRN migraine headache 11/08/23 beclomethasone dipropionate 80 mcg/actuation HFA breath activated aerosol 1 inh inhalation Q12H breathing #10.6 grams 01/31/24 esomeprazole magnesium 20 mg capsule,delayed release 20 mg PO DAILY reflux #30 caps 01/31/24 famotidine 20 mg tablet 20 mg PO QHS reflux #60 tabs 01/31/24 prednisolone 15 mg/5 mL oral solution 15 mg (5 mL) PO BID inflammation #240 mL 01/31/24 ondansetron 4 mg disintegrating tablet 4 mg PO TID PRN nausea and vomiting #21 tabs 03/24/24 amoxicillin 875 mg-potassium clavulanate 125 mg tablet 1 tab PO BID #14 tabs 04/02/24 Hospital Course Operations None Procedures None Summary of Care Provided Minutes Spent on Discharge: 31 Hospital Course: This 78-year-old white female was seen in the emergency room at [facility] with chief complaints of fever x 24 hours. Patient had gone to an urgent care the day before and was tested for COVID and influenza as well as RSV-these tests were negative. The next day, she reported a fever of 104 and was instructed to go to the ER at [facility] for evaluation. Workup in the emergency room showed the patient have an elevated white blood cell count, chest x-ray was performed which showed no evidence of pneumonia, urinalysis was indicative of a urinary tract infection. Patient's son did not feel the patient was medically stable for discharge home from the emergency room due to past history of sepsis, he requested the patient be placed in observation status and treated overnight in the hospital. On 04/02/2024, patient was seen and examined: On examination she appeared in good health and spirits, she does not appear to be in any distress. Vital signs as documented. Skin warm and dry and without overt rashes. Neck without JVD, thyroid appears normal, trachea is midline, neck is supple. Lungs clear, normal air movement was noted. Heart exam notable for irregular rhythm, normal sounds and absence of murmurs, rubs or gallops. Abdomen unremarkable and without evidence of organomegaly, masses, or abdominal aortic enlargement, bowel sounds are present in all 4 quadrants, no abdominal tenderness was noted. Extremities nonedematous, no cyanosis was noted, no clubbing was noted. Neuro: Cranial nerves II through XII are grossly intact, no focal motor deficits were noted, sensation to light touch and pinprick is intact, motor exam 5/5 throughout. Psych: Patient is alert and oriented x3, she does not appear anxious or depressed, she does not appear agitated. This examiner thought it was possible the patient may have an Enterococcus acute cystitis, she has had a history of this before and her antibiotic coverage was changed, patient was evaluated on 04/02/2024 and felt to be stable for discharge home, she was given a prescription for Augmentin. Patient was to follow-up with her urologist as an outpatient in a short period of time for her regular visit. Weight / BMI Weight Weight: 62.3 kg Body Mass Index (BMI) 23.6 ABG / Lab / Microbiology Data 04/02/24 06:55 04/02/24 06:55 Laboratory: Laboratory Results - last 24 (more content not included)... [facility] 04-02-2024 Telephone encounter Note Patient is currently in the [facility]. See ER Documents on PCP desk. Dodie Vazquez MA [facility] 04-02-2024 Telephone encounter Note Patient was seen in [facility] care this weekend. Her EKG was abnormal and she was asymptomatic with no c/o CP or shortness of breath. Needs seen this week in [place] to get set up for a stress test. [facility] 03-31-2024 History of Present illness Narrative This note was created using [employer]. Subjective Norma Ferris is a 78 year old female. HPI Pt notes a dry cough for 10 days. Fever that started two days ago. Some mild nausea. 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 Review of Systems Constitutional: Positive for fever. HENT: Positive for congestion and rhinorrhea. Respiratory: Positive for cough. Negative for shortness of breath. Neurological: Negative for headaches. Objective BP 160/101 Pulse 68 Temp (!) 38.2 C (100.8 F) Resp 18 Wt 61.9 kg (136 lb 7.4 oz) SpO2 92% BMI 25.16 kg/m Physical Exam Vitals and nursing note reviewed. Constitutional: General: She is not in acute distress. Appearance: Normal appearance. She is not ill-appearing. HENT: Head: Normocephalic. Mouth/Throat: Mouth: Mucous membranes are moist. Eyes: Conjunctiva/sclera: Conjunctivae normal. Cardiovascular: Rate and Rhythm: Normal rate. Rhythm irregular. Pulmonary: Effort: Pulmonary effort is normal. Breath sounds: Normal breath sounds. Musculoskeletal: General: Normal range of motion. Cervical back: Normal range of motion. Skin: General: Skin is warm and dry. Neurological: General: No focal deficit present. Mental Status: She is alert. Psychiatric: Mood and Affect: Mood normal. Behavior: Behavior normal. Assessment and Plan ASSESSMENT/PLAN: 1. Acute cough - ICD9: 786.2, ICD10: R05.1 (primary diagnosis) Patient swab for flu and COVID. Discussed Tesmarty Tilley which patient states that she already has. I otherwise reviewed with her probable viral illness and recommended ibuprofen plenty rest and fluids. - COVID & INFLUENZA A/B & RSV NAAT, ROUTINE 2. Irregular heart beat - ICD9: 427.9, ICD10: I49.9 EKG reviewed by myself does show sinus tachycardia with a rate of 107. ME interval 146 ms, QRS 72 ms With sinus arrhythmia. I do not appreciate any signs of atrial fibrillation. On evaluation of this with the patient she does now state that she was evaluated for this around several years ago and had seen cardiology who told her the same thing. - ECG B/O W INTERP (MED OFFICE) Jean Pierre Garcia APRN.[employer] documented in this encounter [facility] 03-25-2024 History of Present illness Narrative Scan on 03/25/2024 8:24 AM by Provider, Mary, DENVERC: Consultation - Emergency Medicine documented in this encounter [facility] 01-24-2024 Instructions Rangel Bonilla MD - 01/24/2024 5:20 PM EDT Consider getting the RSV vaccine in the late summer early Fall at [facility]. Please get labsdone on or after 07/12/2024 prior to your next visit. Screening schedule The following prevention plan is recommended: RSV Vaccine(1 - 1-dose 60+ series) Never done Covid-19 Vaccine( season) due on 07/07/2023 Advance Directive Discussion due on 11/06/2023 Depression Assessment due on 11/06/2023 BP Controlled (<130/80) due on 01/17/2024 Fecal Occult Blood due on 01/18/2024 WHAT YOU CAN DO TO PREVENT FALLS Many falls can be prevented. By making some changes, you can lower your chances of falling. Four things YOU can do to prevent falls for you* and your caregiver 1. Begin a regular exercise program Exercise is one of the most important ways to lower your chances of falling. It makes you stronger and helps you feel better. Exercises that improve balance and coordination (like Gabriele Chi) are the most helpful. Lack of exercise leads to weakness and increases your chances of falling. Ask your doctor or health care provider about the best type of exercise program for you. 2. Have your health care provider review your medicines Have your doctor or pharmacist review all the medicines you take, even [id number] medicines. As you get older, the way medicines work in your body can change. Some medicines, or combinations of medicines, can make you sleepy or dizzy and can cause you to fall. 3. Have your vision checked Have your eyes checked by an eye doctor at least once a year. You may be wearing the wrong glasses or have a condition like glaucoma or cataracts that limits your vision. Poor vision can increase your chances of falling. 4. Make your home safer About half of all falls happen at home. To make your home safer: Remove things you can trip over (like papers, books, clothes, and shoes) from stairs and places where you walk. Remove small throw rugs or use double-sided tape to keep the rugs from slipping. Keep items you use often in cabinets you can reach easily without using a step stool. Have grab bars put in next to your toilet and in the tub or shower. Use non-slip mats in the bathtub and on shower floors. Improve the lighting in your home. As you get older, you need brighter lights to see well. Hang light-weight curtains or shades to reduce glare. Have handrails and lights put in on all staircases. Wear shoes both inside and outside the house. Avoid going barefoot or wearing slippers. For more information, contact: Centers for Disease Control and Prevention www.cdc.gov/injury * This information may not apply if you have certain medical conditions. documented in this encounter [facility] 01-24-2024 History of Present illness Narrative Images from the original note were not included. Norma Ferris is a 78 year old female here for a Medicare wellness visit. Medicare Health Risk Assessment General Health good Exercise: Minutes/Day 60 min walking Exercise: Days/Week daily Alcohol: Daily Use No, just occasionally Alcohol: Drinks/Day Alcohol: 6 or more drinks Feel off balance none Concerns: Teeth/Dentures Concerns: Sexual function Troubled by feelings none Frequency: Eating healthy diet daily ADLs requiring help none Safety precautions in home/vehicle Drives, wears seat belts. No loose rugs, has grab bars and stair rails Smoke, vape, chews tobacco never Difficulty hearing no Difficulty seeing Had lasix Current Providers Specialists: I have reviewed specialist-related care of the patient in the medical record. Current care team: Patient Care Team: Rangel Bonilla MD as PCP - General (Family Medicine) Optho Dr. Granado (Gastro) Dr. Ricardo (ENT) Dr. Duarte (spine ortho) Medical/Family history review Reviewed and updated problem list, medical/surgical/family/social history, medications, and allergies. Opioid use review Opioid Medications (last 90 days) No data to display Depression screening Depression Screening PHQ-2 Score 01/24/2024 0 Depression screening tool completed and reviewed. Based on score and interview, patient is not at risk for depression. Screening tool discussed with patient, and I recommended no further intervention at this time. Cognitive screening Score: 5 Cognitive screening reviewed and no further action needed (score 3-5) Functional Observation Was the patient's Timed Up & Go test unsteady or ? 12 seconds? No Advance Care Planning Surrogate decision maker and/or advance care plan documented Measurements BP 133/77[Home reading[ Pulse 72 Resp 16 Ht 5' 1.75 (1.57m) Wt 140 lb (63.5kg) BMI 25.83 kg/(m^2). Vision Screening: Follows with optometry/ophthalmology Assessment/Plan Medicare annual wellness visit, subsequent (Z00.00) - Counseled on healthy diet and regular exercise - Fall avoidance information provided - Personalized prevention plan provided See Below Chief Complaint Patient presents with: Medicare Wellness Exam HPI Norma Ferris is a 78 year old female who presents here today for Chronic Medical Conditions. and Medicare Annual Visit. Patient with Hx of HTN, elevated fasting blood sugar. GERD, hyperlipidemia, Chronic back pain, frequent UTI's, seasonal allergies as well as those reviewed and addressed below and in ROS. Home BP reading 133/77 132/78 130/77 Decline on COVID vaccine Past medical history, appointments, medications, allergies reviewed. 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 Duarte at [facility]. 08/18/[address] Fischer at [facility] Chronic throat clearing 02/01/2018 Diaphragmatic hernia Hiatal hernia Ectopic gastric mucosa of multiple sites 05/06/[address] Granado 04/2022 Elevated fasting blood sugar 08/14/2018 Encounter for gynecological examination without abnormal finding 07/20/2016 Sees [facility]. Essential hypertension 07/20/2016 GERD without esophagitis 01/14/2008 Hemorrhoids 03/03/2017 History of recurrent UTIs 07/19/2018 History of subdural hematoma 03/03/2017 After a fall Lichen sclerosus et atrophicus 03/03/2017 Living will on file at physician's office 01/16/2023 DPA: Nate (Son) Lumbago 03/21/[address] Duarte at [facility]. Medicare annual wellness visit, subsequent 08/14/2018 Medicare Part B: 06/06/2008 last done: 08/23/2019 Migraine without aura and without status migrainosus, not intractable 07/20/2016 Mixed hyperlipidemia 01/14/2008 Postmenopausal atrophic vaginitis 06/06/2012 Pulmonary nodules 10/03/201609/2016, follow uo CT in a year, 08/[address] Zheng Right thyroid nodule 10/03/2016 Had benign biopsy 09/2016 at [facility] Seasonal allergies 07/20/2016 Spinal stenosis, lumbar [...] of Onset Coronary Artery Disease Mother Fatal [place] in her 80s Diabetes Father ADULT ONSET Coronary Artery Disease Father in his 80s Hypertension Brother Coronary Artery Disease Brother 56 Prostate Cancer Brother COPD No Family History No lung cancer. Patient Allergies ALLERGIES Allergen Reactions Willis Inhibitors Cough Carafate [Sucralfat* Diarrhea Omeprazole Other: See Comments Caused stomach pain. Protonix [Pantopraz* Other: See Comments Stomach pain- Current Medications Current Outpatient Medications on File Prior to Visit Medication Sig benzonatate (TESSALON PERLES) 100 mg capsule Take 2 capsules by mouth three times a day as needed. fluticasone (FLONASE) 50 mcg/actuation nasal spray Use 2 Sprays in each nostril once daily. Rinse mouth after use. benzonatate (TESSALON PERLE) 100 mg capsule Take 2 capsules by mouth three times a day as needed. (Patient not taking: Reported on 09/12/2023) simvastatin (ZOCOR) 10 mg tablet Take 1 [...] Substance Use Topics Alcohol use: Yes Alcohol/week: 2.0 standard drinks of alcohol Types: 2 Glasses of Wine (5oz) per week Comment: Socially. Drug use: No Review of Symptoms REVIEW OF SYSTEMS GENERAL: No weight loss, malaise or fevers HEENT: Negative for frequent or significant headaches, No changes in hearing or vision, no nose bleeds or other nasal problems. Nose is congested. NECK: Negative for lumps, goiter, pain and significant neck swelling RESPIRATORY: Negative for cough, hemoptysis, wheezing, COPD, dyspnea or shortness of breath CARDIOVASCULAR: Negative for chest pain, leg swelling, hypertension, CHF or palpitations GI: No nausea, vomiting, or diarrhea, No heartburn or reflux symptoms, and no blood : No history of dysuria, frequency or blood MUSCULOSKELETAL: Negative for joint pain or [...] syncope, paralysis, seizures or tremors EXAM: BP 133/77 (BP Site: Right Arm, BP Position: Sitting, BP Cuff Size: Regular Adult) Pulse 72 Resp 16 Ht 156.8 cm (5' 1.75) Wt 63.5 kg (140 lb) BMI 25.81 kg/m Last 6 Encounter Wt Readings: Date: Wt: 01/24/2024 63.5 kg (140 lb) 12/21/2023 64 kg (141 lb 3.2 oz) 12/12/2023 64.9 kg (143 lb) 09/12/2023 63.4 kg (139 lb 12.8 oz) 08/09/2023 63 kg (139 lb) 07/19/2023 63 kg (139 lb) General Appearance: Well appearing, alert, in no acute distress, well-hydrated, well nourished.. Skin: Skin color, texture, turgor normal, no suspicious rashes or lesions. Head: Normocephalic, no masses, lesions, tenderness or abnormalities. Eyes: Anicteric sclera. Pupils are equally round and reactive to light. Extraocular movements are intact. . Ears: External ears, TM's normal, canals clear. Nose/Sinuses: Nares normal, septum midline, mucosa normal, no drainage or sinus tenderness. Oropharynx: Lips, mucosa, and tongue normal, teeth and gums normal, oropharynx normal. Neck: Supple, no adenopathy; thyroid symmetric, normal size, no bruits. Lungs: Lungs clear to auscultation. No wheezing, rhonchi, rales.. Heart: RRR without murmur, gallop, or rubs. No ectopy. Abdomen: Normal abdominal exam, Abdomen soft, non-tender. Bowel sounds normal. No masses, organomegaly. Extremities: No deformities, edema, skin discoloration, Good capillary refill. . Musculoskeletal:Muscular strength intact, No joint swelling, deformity, or tenderness. Peripheral Pulses: Normal. Neurologic: Gait normal. Reflexes normal and symmetric. Sensation to light touch and crainal nerves 2-12 intact.. Health Maintenance List RSV Vaccine(1 - 1-dose 60+ series) Never done Covid-19 Vaccine( season) due on 07/07/2023 Advance Directive Discussion due on 11/06/2023 Depression Assessment due on 11/06/2023 BP Controlled (<130/80) due on 01/17/2024 Fecal Occult Blood due on 01/18/2024 Annual PCP Team Chronic Disease Visit due on 07/19/2024 Diabetes Screening due on 01/16/2027 DTaP,Tdap,Td Vaccine(3 - Td or Tdap) due on 09/09/2028 Bone Density Screening Completed Influenza Vaccine Completed Shingrix Vaccine Completed Pneumococcal Vaccine: 65+ Completed Colonoscopy Discontinued Data reviewed Latest Ref Rng 01/09/2023 07/17/2023 01/17/2024 WBC 3.70 - 11.00 k/uL 8.28 7.97 RBC 3.90 - 5.20 m/uL 4.67 4.94 Hemoglobin 11.5 - 15.5 g/dL 15.0 15.5 Hematocrit 36.0 - 46.0 % 44.0 47.4 (H) MCV 80.0 - 100.0 fL 94.2 96.0 MCH 26.0 - 34.0 pg 32.1 31.4 MCHC 30.5 - 36.0 g/dL 34.1 32.7 RDW-CV 11.5 - 15.0 % 12.4 12.5 Platelet Count 150 - 400 k/uL 279 155 MPV 9.0 - 12.7 fL 10.6 13.8 (H) Neut% % 53.4 64.7 Abs Neut (ANC) 1.45 - 7.50 k/uL 4.42 5.17 Lymph% % 35.4 27.9 Abs Lymph 1.00 - 4.00 k/uL 2.93 2.22 Chase% % 7.5 5.4 Abs Chase <0.87 k/uL 0.62 0.43 Eosin% % 3.0 1.3 Abs Eosin <0.46 k/uL 0.25 0.10 Baso% % 0.5 0.4 Abs Baso <0.11 k/uL 0.04 0.03 Immature Gran % % 0.2 0.3 IMMATURE GRANS (ABS) <0.10 k/uL <0.03 <0.03 NRBC /100 WBC 0.0 0.0 Absolute nRBC <0.01 k/uL <0.01 <0.01 DTYPE Auto Auto Color Yellow Yellow Yellow Yellow Clarity Clear Cloudy ! Clear Clear Glucose, Urine Negative Negative Negative Negative Bilirubin, Urine Negative Negative Negative Negative Ketones, Urine Negative Negative Negative Trace ! Specific Alden, Ur 1.005 - 1.030 1.031 (H) 1.027 1.016 Hemoglobin/Blood,Ur Negative Negative Negative Negative pH, Urine <8.5 5.5 6.0 5.5 Protein, Urine Negative Trace Trace Negative Urobilinogen 0.2-1.0 EU/dL Negative Negative 0.2 EU/dL Nitrites Negative Negative Negative Negative Leukest Negative 500 Rosa Elena/uL ! Negative Negative WBC, Urine 0-5 /HPF 11-25 /HPF ! 0-5 /HPF 0-5 /HPF RBC, Urine 0-2 /HPF 0-3 /HPF 0-3 /HPF 3-5 /HPF ! Bacteria Negative /HPF Negative Epithelial Cells /HPF Few Few Moderate Hyaline Cast 0 /LPF 0 /LPF Protein, Total 6.3 - 8.0 g/dL 6.7 7.2 Albumin 3.9 - 4.9 g/dL 4.3 4.5 Calcium 8.5 - 10.2 mg/dL 9.4 9.6 Bilirubin, Total 0.2 - 1.3 mg/dL 0.4 0.5 Alkaline Phosphatase 34 - 123 U/L 57 56 AST 13 - 35 U/L 17 22 ALT 7 - 38 U/L 15 18 Glucose 74 - 99 mg/dL 83 98 BUN 7 - 21 mg/dL 23 (H) 16 Creatinine 0.58 - 0.96 mg/dL 0.79 0.79 Sodium 136 - 144 mmol/L 141 140 Potassium 3.7 - 5.1 mmol/L 4.2 3.8 Chloride 97 - 105 mmol/L 107 (H) 104 CO2 22 - 30 mmol/L 23 23 Anion Gap 9 - 18 mmol/L 11 13 eGFR >=60 mL/min/1.73m 76 76 Calcium Oxalate Crystals None Seen /HPF Many ! Budding Yeast None Seen /HPF Few ! Total Cholesterol, Nonfasting <200 mg/dL 199 213 (H) 234 (H) Triglycerides, Nonfasting <150 mg/dL 119 112 86 HDL Cholesterol, Nonfasting >39 mg/dL 72 72 86 LDL Cholesterol, Nonfasting <100 mg/dL 103 (H) 119 (H) 131 (H) Non HDL Cholesterol, Nonfasting <130 mg/dL 127 141 (H) 148 (H) VLDL Cholesterol, Nonfasting <30 mg/dL 24 22 17 Total Chol/HDL Ratio, Nonfasting <5.10 mg/dL 2.76 2.96 2.72 LDL/HDL Ratio, Nonfasting <2.54 mg/dL 1.43 1.65 1.52 Hemoglobin A1C 4.3 - 5.6 % 5.2 5.4 5.4 Estimated Average Glucose mg/dL 103 108 108 TSH 0.270 - 4.200 mIU/L 1.370 1.330 Vitamin B12 232 - 1,245 pg/mL 494 Magnesium 1.7 - 2.3 mg/dL 2.2 A/P ASSESSMENT/PLAN: 1. Medicare annual wellness visit, subsequent - ICD9: V70.0, ICD10: Z00.00 (primary diagnosis) - Counseled on healthy diet and regular exercise - Calcium intake with supplements or by diet of 1000 mg/day for under 50, 0966-4677 mg/day for 50+ - Follow up for annual exam in one year 2. Essential hypertension - ICD9: 401.9, ICD10: I10 - Controlled - Continue current medications - Recommend home blood pressure monitoring, to bring results to next visit - Encouraged sodium restriction, DASH or Mediterranean diet - Recommend regular aerobic exercise 3. Mixed hyperlipidemia - ICD9: 272.2, ICD10: E78.2 - Controlled - Continue current medications - Counseled on healthy diet and regular exercise 4. Elevated fasting blood sugar - ICD9: 790.21, ICD10: R73.01 - controlled with life style changes. 5. GERD without esophagitis - ICD9: 530.81, ICD10: K21.9 - Continue treatment with Prevacid 30 mg QD 6. Migraine without aura and without status migrainosus, not intractable - ICD9: 346.10, ICD10: G43.009 - clinically stable 7. Seasonal allergies - ICD9: 477.9, ICD10: J30.2 - controlled and sees ENT 8. Pulmonary nodules - ICD9: 793.19, ICD10: R91.8 - repeat CT was ok and no further studies needed. 9. Advance directive discussed with patient - ICD9: V65.49, ICD10: Z71.89 - up to date. Requested Prescriptions Signed Prescriptions Disp Refills simvastatin (ZOCOR) 10 mg tablet 90 tablet 1 Sig: Take 1 tablet by mouth daily at bedtime. SUMAtriptan (IMITREX) 100 mg tablet 9 tablet 3 Sig: Take one tab by month with onset of headache. Can repeat in 2 hrs. Max of 2 tabs in 24 hrs lansoprazole (PREVACID) 30 mg capsule 90 capsule 1 Sig: Take 1 capsule by mouth once daily. Take 1 tablet in the AM F/u 6 months routine check lipid and A1c prior I spent a total of 40 minutes on the date of the service which included preparing to see the patient, [id number] patient care, completing clinical documentation, performing a medically appropriate examination, counseling and educating the patient/family/caregiver and ordering medications, tests, or procedures. Rangel Bonilla MD documented in this encounter [facility] 12-21-2023 Miscellaneous Notes Patient notified of results and recommendations as listed below, verbalized understanding. Elizabeth Malave MA Please call and let patient know her chest xray read by radiology did not see a pneumonia, however with her worsening cough and shortness of breath last night I am going to treat with doxycycline and tessalon. Follow up with pcp if symptoms do not improve next week . documented in this encounter [facility] 12-21-2023 History of Present illness Narrative This note was created using Qzzrriter. Subjective Norma Ferris is a 78 year old female. HPI Patient presents with worsening cough over the past 2 weeks. She started feeling shortness of breath last night and her ear started to bother her. She was on Augmentin at the beginning of the month for sinus infection. Cough did not improve so came in today for evaluation. She denies history of asthma or COPD. She was never smoker. No OTC meds. No chest pain. She does have an albuterol inhaler but has not been using that. No vomiting or diarrhea. Her BP is noted to be elevated, patient states she does have a history of whitecoat hypertension and typically is up when she comes in tot he doctor. When she takes it at home it is normal. Not having any symptoms. Review of Systems HENT: Positive for congestion and ear pain. Negative for ear discharge. Respiratory: Positive for cough and shortness of breath. Cardiovascular: Negative. Gastrointestinal: Negative. Genitourinary: Negative. Musculoskeletal: Negative. All other systems reviewed and are negative. 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 Duarte at [facility]. 08/18/[address] Fischer at [facility] throat clearing 02/01/2018 Diaphragmatic hernia Hiatal hernia Ectopic gastric mucosa of multiple sites 05/06/[address] Granado 04/2022 Elevated fasting blood sugar 08/14/2018 Encounter for gynecological examination without abnormal finding 07/20/2016 Sees [facility]. Essential hypertension 07/20/2016 GERD without esophagitis 01/14/2008 Hemorrhoids 03/03/2017 History of recurrent UTIs 07/19/2018 History of subdural hematoma 03/03/2017 After a fall Lichen sclerosus et atrophicus 03/03/2017 Living will on file at physician's office 01/16/2023 DPA: Nate (Son) Juanitago 03/21/[address] Duarte at [facility]. Medicare annual wellness visit, subsequent 08/14/2018 Medicare Part B: 06/06/2008 last done: 08/23/2019 Migraine without aura and without status migrainosus, not intractable 07/20/2016 Mixed hyperlipidemia 01/14/2008 Postmenopausal atrophic vaginitis 06/06/2012 Pulmonary nodules 10/03/201609/2016, follow uo CT in a year, 08/[address] Zheng Right thyroid nodule 10/03/2016 Had benign biopsy 09/2016 at [facility] Seasonal allergies 07/20/2016 Spinal stenosis, lumbar region, without neurogenic claudication 03/21/2012 Current Outpatient Medications Medication Sig Dispense Refill doxycycline (VIBRA-TABS) 100 mg tablet Take 1 tablet by mouth two times a day for 7 days. 14 tablet 0 benzonatate (TESSALON PERLES) 100 mg capsule Take 2 capsules by mouth three times a day as needed. 30 capsule 0 fluticasone (FLONASE) 50 mcg/actuation nasal spray Use 2 Sprays in each nostril once daily. Rinse mouth after use. 1 Each 0 benzonatate (TESSALON PERLE) 100 mg capsule Take 2 capsules by mouth three times a day as needed. (Patient not taking: Reported on 09/12/2023) 30 capsule 0 simvastatin (ZOCOR) 10 mg tablet Take 1 tablet by mouth daily at bedtime. 90 tablet 1 risperiDONE (RISPERDAL) 0.25 mg tablet Take 1 tablet by mouth twice daily. 30 tablet 5 lansoprazole (PREVACID) 30 mg capsule Take 30 mg by mouth once daily. Take 1 tablet in the AM SUMAtriptan (IMITREX) 100 mg tablet Take one tab by month with onset of headache. Can repeat in 2 hrs. Max of 2 tabs in 24 hrs 9 tablet 3 Ascorbic Acid 1,000 mg tablet Take 1,000 mg by mouth once daily. Methenamine Hippurate (HIPREX) 1 gram tablet TAKE 1 TABLET BY MOUTH ONCE DAILY AT BEDTIME WITH VITAMIN C 1000MG FOR UTI PREVENTION 2 No current facility-administered medications for this visit. PAST SURGICAL HISTORY Procedure Laterality Date 2D [...] TUBE OVARY 1987 Hysterectomy, FUAD/BSO VAGINAL HYSTERECTOMY FAMILY HISTORY Problem Relation Age of Onset Coronary Artery Disease Mother Fatal [place] in her 80s Diabetes Father ADULT ONSET Coronary Artery Disease Father in his 80s Hypertension Brother Coronary Artery Disease Brother 56 Prostate Cancer Brother COPD No Family History No lung cancer. Social History Tobacco Use Smoking status: Never Smokeless tobacco: Never Tobacco comments: No smoking in childhood home. No significant ETS in household since. Substance Use Topics Alcohol use: Yes Alcohol/week: 2.0 standard drinks of alcohol Types: 2 Glasses of Wine (5oz) per week Comment: Socially. Drug use: No Objective BP 191/114 Pulse 98 Temp 36.5 C (97.7 F) Resp 20 Wt 64 kg (141 lb 3.2 oz) SpO2 97% BMI 25.62 kg/m Physical Exam Vitals reviewed. Constitutional: Appearance: Normal appearance. HENT: Head: Normocephalic and atraumatic. Right Ear: Tympanic membrane, ear canal and external ear normal. Left Ear: Tympanic membrane, ear canal and external ear normal. Nose: Congestion present. Mouth/Throat: Mouth: Mucous membranes are moist. Pharynx: Oropharynx is clear. Cardiovascular: Rate and Rhythm: Normal rate and regular rhythm. Heart sounds: Normal heart sounds. Pulmonary: Effort: Pulmonary effort is normal. Breath sounds: Rhonchi present. Comments: Some rhonchi in the lower lungs bilaterally Musculoskeletal: Cervical back: Neck supple. Skin: General: Skin is warm and dry. Findings: No rash. Neurological: General: No focal deficit present. Mental Status: She is alert. Assessment and Plan ASSESSMENT/PLAN: 1. Acute cough - ICD9: 786.2, ICD10: R05.1 Will treat based on radiology read, will call on results of chest xray. Patient agreeable with this plan. - XR CHEST 2V FRONTAL/LAT Ruby Garza PA-C documented in this encounter [facility] 12-12-2023 History of Present illness Narrative Subjective HPI Norma Ferris is a 78 year old female who presents with a cough and chest congestion for the past 10 days. She has also had sinus congestion. She hears a rattling or buzzing sound in her throat at night. She has not had a fever or shortness of breath. She has not taken any medication at home for her symptoms. Review of Systems Constitutional: Negative for chills and fever. HENT: Positive for congestion. Negative for ear pain and sore throat. Respiratory: Positive for cough. Negative for sputum production, shortness of breath and wheezing. Cardiovascular: Negative. Musculoskeletal: Negative for myalgias. BP 118/72 Pulse 100 Temp 36.8 C (98.2 F) Resp 16 Wt 64.9 kg (143 lb) SpO2 97% BMI 25.95 kg/m PAST MEDICAL HISTORY Diagnosis Date Advance directive discussed with patient 01/16/2023 Discussed 01/2023: up to date Saravia's esophagus without dysplasia 05/06/[address] 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 Duarte at [facility]. 08/18/[address] Fischer at [facility] throat clearing 02/01/2018 Diaphragmatic hernia Hiatal hernia Ectopic gastric mucosa of multiple sites 05/06/[address] Granado 04/2022 Elevated fasting blood sugar 08/14/2018 Encounter for gynecological examination without abnormal finding 07/20/2016 Sees [facility]. Essential hypertension 07/20/2016 GERD without esophagitis 01/14/2008 Hemorrhoids 03/03/2017 History of recurrent UTIs 07/19/2018 History of subdural hematoma 03/03/2017 After a fall Lichen sclerosus et atrophicus 03/03/2017 Living will on file at physician's office 01/16/2023 DPA: Nate (Son) Lumbago 03/21/[address] Duarte at [facility]. Medicare annual wellness visit, subsequent 08/14/2018 Medicare Part B: 06/06/2008 last done: 08/23/2019 Migraine without aura and without status migrainosus, not intractable 07/20/2016 Mixed hyperlipidemia 01/14/2008 Postmenopausal atrophic vaginitis 06/06/2012 Pulmonary nodules 10/03/201609/2016, follow uo CT in a year, 08/[address] Zheng Right thyroid nodule 10/03/2016 Had benign biopsy 09/2016 at [facility] Seasonal allergies 07/20/2016 Spinal stenosis, lumbar [...] OVARY 1987 Hysterectomy, FUAD/BSO VAGINAL HYSTERECTOMY ALLERGIES Willis Inhibitors, Carafate [Sucralfate], Omeprazole, and Protonix [Pantoprazole] MEDICATIONS simvastatin (ZOCOR) [...] two times a day for 7 days. fluticasone (FLONASE) 50 mcg/actuation nasal spray Use 2 Sprays in each nostril once daily. Rinse mouth after use. benzonatate (TESSALON PERLE) 100 mg capsule Take 2 capsules by mouth three times a day as needed. (Patient not taking: Reported on 09/12/2023) FAMILY HISTORY Problem Relation Age of Onset Coronary Artery Disease Mother Fatal [place] in her 80s Diabetes Father ADULT ONSET Coronary Artery Disease Father in his 80s Hypertension Brother Coronary Artery Disease Brother 56 Prostate Cancer Brother COPD No Family History No lung cancer. Social History Tobacco Use Smoking status: Never Smokeless tobacco: Never Tobacco comments: No smoking in childhood home. No significant ETS in household since. Substance Use Topics Alcohol use: Yes Alcohol/week: 2.0 standard drinks of alcohol Types: 2 Glasses of Wine (5oz) per week Comment: Socially. Drug use: No Objective Physical Exam Vitals and nursing note reviewed. Constitutional: General: She is not in acute distress. Appearance: Normal appearance. She is not ill-appearing. HENT: Right Ear: Tympanic membrane, ear canal and external ear normal. Left Ear: Tympanic membrane, ear canal and external ear normal. Nose: Mucosal edema and congestion present. Mouth/Throat: Mouth: Mucous membranes are moist. Pharynx: Oropharynx is clear. Uvula midline. No oropharyngeal exudate or posterior oropharyngeal erythema. Cardiovascular: Rate and Rhythm: Normal rate and regular rhythm. Heart sounds: Normal heart sounds. Pulmonary: Effort: Pulmonary effort is normal. No respiratory distress. Breath sounds: Normal breath sounds. No wheezing or rales. Musculoskeletal: Cervical back: Neck supple. Lymphadenopathy: Cervical: No cervical adenopathy. Skin: General: Skin is warm and dry. Findings: No erythema or rash. Neurological: Mental Status: She is alert. ASSESSMENT/PLAN: 1. Acute cough - ICD9: 786.2, ICD10: R05.1 (primary diagnosis) - AMOXICILLIN 875 MG-POTASSIUM CLAVULANATE 125 MG TABLET - FLUTICASONE PROPIONATE 50 MCG/ACTUATION NASAL SPRAY,SUSPENSION 2. Post-nasal drainage - ICD9: 473.9, ICD10: R09.82 - AMOXICILLIN 875 MG-POTASSIUM CLAVULANATE 125 MG TABLET - FLUTICASONE PROPIONATE 50 MCG/ACTUATION NASAL SPRAY,SUSPENSION - Follow-up with your PCP in 3-5 days if symptoms have not improved or sooner if symptoms worsen - Discussed red flags and need for immediate medical evaluation if any occur. - Discussed supportive care treatment with fluids, rest and analgesia. - Discussed expected course of illness Anisa Mitchell APRN.KATIE documented in this encounter [facility] 12-12-2023 Instructions Anisa Mitchell APRN.CNP - 12/12/2023 4:27 PM EST ASSESSMENT/PLAN: 1. Acute cough - ICD9: 786.2, ICD10: R05.1 (primary diagnosis) - AMOXICILLIN 875 MG-POTASSIUM CLAVULANATE 125 MG TABLET - FLUTICASONE PROPIONATE 50 MCG/ACTUATION NASAL SPRAY,SUSPENSION 2. Post-nasal drainage - ICD9: 473.9, ICD10: R09.82 - AMOXICILLIN 875 MG-POTASSIUM CLAVULANATE 125 MG TABLET - FLUTICASONE PROPIONATE 50 MCG/ACTUATION NASAL SPRAY,SUSPENSION - Follow-up with your PCP in 3-5 days if symptoms have not improved or sooner if symptoms worsen - Discussed red flags and need for immediate medical evaluation if any occur. - Discussed supportive care treatment with fluids, rest and analgesia. - Discussed expected course of illness Anisa Mitchell APRN.KATIE documented in this encounter [facility] 09-12-2023 History of Present illness Narrative CC: [...] back pain 07/20/[address] Duarte at [facility]. 08/18/[address] Fischer at [facility] throat clearing 02/01/2018 Diaphragmatic hernia Hiatal hernia Ectopic gastric mucosa of multiple sites 05/06/[address] Granado 04/2022 Elevated fasting blood sugar 08/14/2018 Encounter for gynecological examination without abnormal finding 07/20/2016 Sees [facility]. Essential hypertension 07/20/2016 GERD without esophagitis 01/14/2008 Hemorrhoids 03/03/2017 History of recurrent UTIs 07/19/2018 History of subdural hematoma 03/03/2017 After a fall Lichen sclerosus et atrophicus 03/03/2017 Living will on file at physician's office 01/16/2023 DPA: Nate (Son) Lumbago 03/21/[address] Duarte at [facility]. Medicare annual wellness visit, subsequent 08/14/2018 Medicare Part B: 06/06/2008 last done: 08/23/2019 Migraine without aura and without status migrainosus, not intractable 07/20/2016 Mixed hyperlipidemia 01/14/2008 Postmenopausal atrophic vaginitis 06/06/2012 Pulmonary nodules 10/03/201609/2016, follow uo CT in a year, 08/[address] Zheng Right thyroid nodule 10/03/2016 Had benign biopsy 09/2016 at [facility] Seasonal allergies 07/20/2016 Spinal stenosis, lumbar [...] OVARY 1987 Hysterectomy, FUAD/BSO VAGINAL HYSTERECTOMY ALLERGIES Willis Inhibitors, Carafate [Sucralfate], Environmental [Other], Omeprazole, and [...] of Onset Coronary Artery Disease Mother Fatal [place] in her 80s Diabetes Father ADULT ONSET [...] occur. Patient agreeable to treatment plan. Toya Vazquez APRN.[employer] documented in this encounter [facility] 09-12-2023 Miscellaneous Notes Patient calls and notified of provider recommendations below. Patient voiced understanding. Rylie Kaur RN Left message for patient to contact office. Dodie Vazquez MA Advise patient she will need seen. [...] Rylie Kaur RN documented in this encounter [facility] 08-10-2023 Instructions Ruby Garza PA-C - [...] of LAGEVRIO during to this registry at [email or web address] or . For individuals who are sexually [...] virus. COVID-19 illnesses have ranged from very bcke-vk-sikgsc, including illness resulting in . While information [...] serious illnesses Take any medicines including prescription, gnqy-ydt-jlazcog medicines, vitamins, and herbal products. How do [...] NG or OG that is size 12 Kinyarwanda (FR) or larger. If you miss a [...] to treat people with COVID-19. Go to https://www.fda.gov/emergency-prepared wttc-vkz-pmlncvpe/mcm-legalregulatory- ffl-nwfpdf-qevsgoxzf/syspzejva-dis-dwq horization for more information. It is your choice [...] to FDA MedWatch at www.fda.gov/medwatch or call 4-789-GHO-6399 ([phone]). How should I store LAGEVRIO? Store LAGEVRIO capsules at room temperature between 68 F to 77 F (20 C to 25 C). Keep LAGEVRIO and all medicines out of the reach of children. How can I learn more about COVID-19? Ask your healthcare provider. Visit www.cdc.gov/COVID19 Contact your local or state public health department. Call [employer] at (toll free in the [place] Visit www.Wize What Is an Emergency Use Authorization (EUA)? The [place] FDA has made LAGEVRIO available under an emergency access mechanism called an Emergency Use Authorization (EUA) The EUA is supported by a Continuous Improvement Manager of Health and Human Service ([facility]) declaration that circumstances exist to justify emergency use of drugs and biological products during the COVID-19 pandemic. LAGEVRIO for the treatment of adults with a current diagnosis of rzvs-tb-hvjpcdrs COVID-19 who are at high risk for [...] no longer be used under the EUA). for: [employer] [place] [address], [facility] For patent information: www.[employer]/research/patent Copyright [employer] [facility] and its affiliates. All rights reserved. [id number] Revised: December 2022 documented in this encounter [facility] 08-10-2023 Miscellaneous Notes I called and discussed oral medication and treatment and she had an interaction with her simvastatin so molnupiravir was sent in. Patient sent EA U through her MyChart. Agreeable with plan. Molnupiravir Eligibility and Patient Discussion [facility] Formulary Restriction Criteria: Adult outpatients 18 [...] the Fact Sheet for Patients, Parents and Caregivers. The patient was also instructed that in [...] she calls back. documented in this encounter [facility] 08-09-2023 Instructions Jessica Badillo APRN.KATIE - 08/09/2023 8:20 AM EDT covid and influenza test ordered You will be notified in 12-24 hours, [facility] until results are back Rest, [...] inability to swallow. documented in this encounter [facility] 08-09-2023 History of Present illness Narrative Subjective The history is provided by the patient. No greek professor was used. HPI Norma Ferris is a [...] back pain 07/20/[address] Duarte at [facility]. 08/18/[address] Fischer at [facility] Chronic throat clearing 02/01/2018 Diaphragmatic hernia Hiatal hernia Ectopic gastric mucosa of multiple sites 05/06/[address] Granado 04/2022 Elevated fasting blood sugar 08/14/2018 Encounter for gynecological examination without abnormal finding 07/20/2016 Sees [facility]. Essential hypertension 07/20/2016 GERD without esophagitis 01/14/2008 Hemorrhoids 03/03/2017 History of recurrent UTIs 07/19/2018 History of subdural hematoma 03/03/2017 After a fall Lichen sclerosus et atrophicus 03/03/2017 Living will on file at physician's office 01/16/2023 DPA: Nate (Son) Lumbago 03/21/[address] Duarte at [facility]. Medicare annual wellness visit, subsequent 08/14/2018 Medicare Part B: 06/06/2008 last done: 08/23/2019 Migraine without aura and without status migrainosus, not intractable 07/20/2016 Mixed hyperlipidemia 01/14/2008 Postmenopausal atrophic vaginitis 06/06/2012 Pulmonary nodules 10/03/201609/2016, follow uo CT in a year, 08/[address] Zheng Right thyroid nodule 10/03/2016 Had benign biopsy 09/2016 at [facility] Seasonal allergies 07/20/2016 Spinal stenosis, lumbar region, without neurogenic claudication 03/21/2012 I have confirmed and edited as necessary, the [facility] Review of Systems Constitutional: Negative for chills [...] in 12-24 hours with results, available on [facility] Prednisone 40 mg (2-20mg tablets) po QD [...] Jessica Badillo APRN.KATIE documented in this encounter [facility] 07-19-2023 History of Present illness Narrative Chief [...] back pain 07/20/[address] Duarte at [facility]. 08/18/[address] Fischer at [facility] Chronic throat clearing 02/01/2018 Diaphragmatic hernia Hiatal hernia Ectopic gastric mucosa of multiple sites 05/06/[address] Granado 04/2022 Elevated fasting blood sugar 08/14/2018 Encounter for gynecological examination without abnormal finding 07/20/2016 Sees [facility]. Essential hypertension 07/20/2016 GERD without esophagitis 01/14/2008 Hemorrhoids 03/03/2017 History of recurrent UTIs 07/19/2018 History of subdural hematoma 03/03/2017 After a fall Lichen sclerosus et atrophicus 03/03/2017 Living will on file at physician's office 01/16/2023 DPA: Nate (Son) Lumbago 03/21/[address] Duarte at [facility]. Medicare annual wellness visit, subsequent 08/14/2018 Medicare Part B: 06/06/2008 last done: 08/23/2019 Migraine without aura and without status migrainosus, not intractable 07/20/2016 Mixed hyperlipidemia 01/14/2008 Postmenopausal atrophic vaginitis 06/06/2012 Pulmonary nodules 10/03/201609/2016, follow uo CT in a year, 08/[address] Zheng Right thyroid nodule 10/03/2016 Had benign biopsy 09/2016 at [facility] Seasonal allergies 07/20/2016 Spinal stenosis, lumbar [...] of Onset Coronary Artery Disease Mother Fatal [place] in her 80s Diabetes Father ADULT ONSET Coronary Artery Disease Father in his 80s Hypertension Brother Coronary Artery Disease Brother 56 Prostate Cancer Brother COPD No Family History No lung cancer. Patient Allergies ALLERGIES Allergen Reactions Willis Inhibitors Cough Carafate [Sucralfat* Diarrhea Environmental [Othe* [...] check CMP, Lipid, UA, A1c, TSH, CBC Rangel Bonilla MD documented in this encounter [facility] 06-07-2023 History of Present illness Narrative Scan on 06/06/2023 4:00 PM by Provider, External, PILAR: Consultation - documented in this encounter [facility] 05-25-2023 History of Present illness Narrative CC: Patient presents with: Urinary Problem: Pt reported urinary frequency, burning x1-2 wks, recent [facility] ER Visit 05/12/2023, 05/16/2023 completed ATB. HPI [...] back pain 07/20/[address] Duarte at [facility]. 08/18/[address] Fischer at [facility] Chronic throat clearing 02/01/2018 Diaphragmatic hernia Hiatal hernia Ectopic gastric mucosa of multiple sites 05/06/[address] Granado 04/2022 Elevated fasting blood sugar 08/14/2018 Encounter for gynecological examination without abnormal finding 07/20/2016 Sees [facility]. Essential hypertension 07/20/2016 GERD without esophagitis 01/14/2008 Hemorrhoids 03/03/2017 History of recurrent UTIs 07/19/2018 History of subdural hematoma 03/03/2017 After a fall Lichen sclerosus et atrophicus 03/03/2017 Living will on file at physician's office 01/16/2023 DPA: Nate (Son) Lumbago 03/21/[address] Duarte at [facility]. Medicare annual wellness visit, subsequent 08/14/2018 Medicare Part B: 06/06/2008 last done: 08/23/2019 Migraine without aura and without status migrainosus, not intractable 07/20/2016 Mixed hyperlipidemia 01/14/2008 Postmenopausal atrophic vaginitis 06/06/2012 Pulmonary nodules 10/03/201609/2016, follow uo CT in a year, 08/[address] Zheng Right thyroid nodule 10/03/2016 Had benign biopsy 09/2016 at [facility] Seasonal allergies 07/20/2016 Spinal stenosis, lumbar [...] OVARY 1987 Hysterectomy, FUAD/BSO VAGINAL HYSTERECTOMY ALLERGIES Willis Inhibitors, Carafate [Sucralfate], Environmental [Other], Omeprazole, and [...] of Onset Coronary Artery Disease Mother Fatal [place] in her 80s Diabetes Father ADULT ONSET [...] occur. Patient agreeable to treatment plan. Toya Vazquez APRN.[employer] ATTENDANT documented in this encounter [facility] 05-25-2023 Miscellaneous Notes Pt notified of [...] states he may just come into [facility]. Clarita Neely LPN Order placed Patient calls and states that she continues to have urinary issues. Patient continues to have frequency and burning with urination. Patient just finished cephalexin that was prescribed to her by [facility] ER 3 days ago. Patient continues to have issues. Patient states that Dr. Bonilla had told her that if she continued to have symptoms a urine test would be ordered. Please review and advise, Rylie Kaur RN documented in this encounter [facility] 05-19-2023 Miscellaneous Notes Patient was notified Char Moore Ma Let patient know that as long as her symptoms have resolved we do not re-peat a urine. Spoke with patient and gave update. Patient did get our message and tried to call back but couldn't get through so she ended up going to [facility]. Just with her history she just wanted to make sure everything was ok. Obtained documents given to PCP. Patient is wanting to know if she will need additional urine test after she has completed the medication. Dodie Vazquez MA Left message for patient to contact office. Dodie Vazquez MA Let patient know with the fact that her symptoms seem to be improving, her temp is ok and the bacteria in her urine is sensitive to the medication she is on I would not make any changes at this time. Patient sent my chart message and her temp was 98.3 Dodie Vazquez MA Pt called back and she is not able to take her temp because she does not have one. Please advise. Telma ACOSTA Spoke with patient and she indicated that [...] ahead of this because of her history. Dodie Vazquez MA Pt. went to [facility] Er for UTI on Monday. She was given Cephalexin 500 mg q6h. She is still having symptoms Burning with urination, nausea. She was hospitalized for this in the past. Please advise. documented in this encounter [facility] 05-12-2023 Hospital Discharge instructions Additional Instructions Urine culture from 4 days ago pansensitive E. coli. White count 7.9, Cr 0.78, UA with only light leukocytes esterase at this time. We will extend her antibiotics additional 2 days status post Rocephin. Follow-up with your doctor. Return if any worsening symptoms. [facility] Work Phone: 01-30-2023 Miscellaneous Notes Patient returned call and given provider's message below . Jamir Suarez RN Left message for patient to contact office. Dodie Vazquez MA Let patient know CT of chest was ok. documented in this encounter [facility] 01-24-2023 History of Present illness Narrative Radiology [...] RT Anita(R) January 24, 2023 3:28 PM documented in this encounter [facility] 01-19-2023 Miscellaneous Notes Patient returned call and given provider's message below and patient verbalized understanding. Jamir Suarez RN Left message for patient to contact office. Dodie Vazquez MA Let patient know stool for blood was negative. 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 Duarte at [facility]. Migraine without aura, without mention of [...] head TOTAL ABDOM HYSTERECTOMY 1987 Hysterectomy, FUAD/BSO Willis Inhibitors; Carafate [Sucralfate]; Environmental [Other]; Protonix [Pantoprazole] Medications reviewed: Yes FAMILY HISTORY FAMILY HISTORY Problem Relation Age of Onset Coronary Artery Disease Mother Fatal [place] in her 80s Diabetes Father ADULT ONSET Coronary Artery Disease Father in his 80s Hypertension Brother Coronary Artery Disease Brother 56 Prostate Cancer Brother COPD No Family History No lung cancer. 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 Social History Main Topics Smoking [...] 60 Resp 14 Ht 158.1 cm (5' 2.25) Wt 64.9 kg (143 lb) BMI 25.95 [...] back pain 07/20/[address] Duarte at [facility]. 08/18/[address] Fischer at [facility] Chronic throat clearing 02/01/2018 Diaphragmatic hernia Hiatal hernia Ectopic gastric mucosa of multiple sites 05/06/[address] Granado 04/2022 Elevated fasting blood sugar 08/14/2018 Encounter for gynecological examination without abnormal finding 07/20/2016 Sees [facility]. Essential hypertension 07/20/2016 GERD without esophagitis 01/14/2008 Hemorrhoids 03/03/2017 History of recurrent UTIs 07/19/2018 History of subdural hematoma 03/03/2017 After a fall Lichen sclerosus et atrophicus 03/03/2017 Living will on file at physician's office 01/16/2023 DPA: Nate (Son) Lumbago 03/21/[address] Duarte at [facility]. Medicare annual wellness visit, subsequent 08/14/2018 Medicare Part B: 06/06/2008 last done: 08/23/2019 Migraine without aura and without status migrainosus, not intractable 07/20/2016 Mixed hyperlipidemia 01/14/2008 Postmenopausal atrophic vaginitis 06/06/2012 Pulmonary nodules 10/03/201609/2016, follow uo CT in a year, 08/[address] Zheng Right thyroid nodule 10/03/2016 Had benign biopsy 09/2016 at [facility] Seasonal allergies 07/20/2016 Spinal stenosis, lumbar [...] of Onset Coronary Artery Disease Mother Fatal [place] in her 80s Diabetes Father ADULT ONSET Coronary Artery Disease Father in his 80s Hypertension Brother Coronary Artery Disease Brother 56 Prostate Cancer Brother COPD No Family History No lung cancer. Patient Allergies ALLERGIES Allergen Reactions Willis Inhibitors Cough Carafate [Sucralfat* Diarrhea Environmental [Othe* [...] 60 Resp 14 Ht 158.1 cm (5' 2.25) Wt 64.9 kg (143 lb) BMI 25.95 [...] Abs Lymph 1.00 - 4.00 k/uL 2.93 Chase% % 7.5 Abs Chase <0.87 k/uL 0.62 Eosin% % 3.0 Abs [...] Negative Ketones, Urine Trace, Negative Negative Specific Ald[place], Ur 1.005 - 1.030 1.031 (H) Hemoglobin/Blood,Ur [...] diet of 1000 mg/day for under 50, 6896-7956 mg/day for 50+ - Follow up for [...] which included preparing to see the patient, kobc-vy-alct patient care, completing clinical documentation, performing a medically appropriate examination, counseling and educating the patient/family/caregiver and ordering medications, tests, or procedures. Rangel Bonilla MD documented in this encounter [facility] 01-09-2023 Miscellaneous Notes Patient notified. Dodie Vazquez MA Let patient know urine and non-fasting lab orders placed. Patient reports she came in Sat to get bloodwork done for her appt with pcp on 01-16, but there were no orders. Asking if pcp wants labs done prior to appt? Please advise patient either way via her cell. documented in this encounter [facility] 10-21-2022 Miscellaneous Notes The following approved medication requests have been transmitted electronically. Requested Prescriptions Signed Prescriptions Disp Refills SUMAtriptan (IMITREX) 100 mg tablet 9 tablet 3 Sig: Take one tab by month with onset of headache. Can repeat in 2 hrs. Max of 2 tabs in 24 hrs Authorizing Provider: RANGEL BONILLA MD Patient has been identified by [...] Marielle Suarez RN documented in this encounter [facility] 07-07-2022 History of Present illness Narrative Here from [facility] and referred by Dr. Ray significant other is retired deputy attorney general - met on lineLong standing symptoms of [...] betterNo issues with heartburnSon is FP in [place] for [employer] in [facility] [address] [facility] Work Phone: 05-05-2022 History of Present illness Narrative Gastro office visit. Clarita Neely LPN Scan on 05/05/2022 9:43 AM by External Provider: Consultation - GI documented in this encounter [facility] 04-27-2022 Instructions Rangel Bonilla MD - 04/27/2022 8:54 AM EDT Please get labs and urine test done on or after 10/14/2022 prior to your next visit. documented in this encounter [facility] 04-27-2022 History of Present illness Narrative [...] below and in ROS. Patient saw Dr. Granado for testing and at this point is off the omeprazole. Even when she was on the omeprazole twice a day there was no change in her chronic cough. Past medical history, appointments, medications, allergies reviewed. 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 Duarte at [facility]. 08/18/[address] Fischer at [facility] Chronic throat clearing 02/01/2018 Diaphragmatic hernia Hiatal hernia Elevated fasting blood sugar 08/14/2018 Encounter for gynecological examination without abnormal finding 07/20/2016 Sees [facility]. Essential hypertension 07/20/2016 GERD without esophagitis 01/14/2008 Hemorrhoids 03/03/2017 History of recurrent UTIs 07/19/2018 History of subdural hematoma 03/03/2017 After a fall Lichen sclerosus et atrophicus 03/03/2017 Lumbago 03/21/[address] Duarte at [facility]. Medicare annual wellness visit, subsequent 08/14/2018 Medicare Part B: 06/06/2008 last done: 08/23/2019 Migraine without aura and without status migrainosus, not intractable 07/20/2016 Mixed hyperlipidemia 01/14/2008 Postmenopausal atrophic vaginitis 06/06/2012 Pulmonary nodules 10/03/201609/2016, follow uo CT in a year, 08/[address] Zheng Right thyroid nodule 10/03/2016 Had benign biopsy 09/2016 at [facility] Seasonal allergies 07/20/2016 Spinal stenosis, lumbar [...] of Onset Coronary Artery Disease Mother Fatal [place] in her 80s Diabetes Father ADULT ONSET Coronary Artery Disease Father in his 80s Hypertension Brother Coronary Artery Disease Brother 56 Prostate Cancer Brother COPD No Family History No lung cancer. Patient Allergies ALLERGIES Allergen Reactions Willis Inhibitors Cough Carafate [Sucralfat* Diarrhea Environmental [Othe* [...] CMP, Lipid Ua, A1c, CBC TSH prior Rangel Bonilla MD documented in this encounter [facility] 04-27-2022 Nurse Note Home BP readings: 136/67 130/83 115/76 documented in this encounter [facility] 04-09-2021 History of Present illness Narrative Radiology Service Progress Note PATIENT NAME: Norma Ferris DATE OF SERVICE: April 09, 2021 TIME: 8:28 AM PATIENT IDENTITY VERIFICATION COMPLETED USING TWO (2) IDENTIFIERS: Name and Date of confirmed by patient verbally. FALL SCREENING: Has the patient had 2 falls in the last year or 1 fall with injury or currently using an Ambulatory Assistive Device (Walker, Cane, Wheelchair, Crutches, etc.)? No PATIENT GENDER DATA: Female. status: : No status: NO. PATIENT RELEVANT IMPLANT DATA REVIEWED: Not Applicable RADIOLOGY DEPARTMENT: General X-ray: Exam(s) Completed: Spine X-Ray(s): Cervical AP / LAT / OBL PERIPHERAL IV DATA: Not applicable SIGNED BY: RT Rizwan(R) April 09, 2021 8:28 AM documented in this encounter [facility] 01-28-2021 History of Present illness Narrative Radiology Service Progress Note PATIENT NAME: Norma Ferris DATE OF SERVICE: January 28, 2021 TIME: 2:02 PM PATIENT IDENTITY VERIFICATION COMPLETED USING TWO (2) IDENTIFIERS: Name and Date of confirmed by patient verbally. FALL SCREENING: Has the patient had 2 falls in the last year or 1 fall with injury or currently using an Ambulatory Assistive Device (Walker, Cane, Wheelchair, Crutches, etc.)? No PATIENT GENDER DATA: Female. status: : No status: NO. PATIENT RELEVANT IMPLANT DATA REVIEWED: Not Applicable RADIOLOGY DEPARTMENT: General X-ray: Exam(s) Completed: Chest X-Ray PERIPHERAL IV DATA: Not applicable SIGNED BY: Jennifer Berg January 28, 2021 2:02 PM documented in this encounter [facility] 01-14-2008 History of Past i llness Narrative Problem Noted Date Resolved Date Elevated blood pressure read ing without diagnosis of hypertension 01/14/2008 06/20/2016 documented as of this encounter (statuses as of 04/27/2022) [facility] History of Past illness Narrative* Problem Noted Date Resolved Date Elevated blood pressure read ing without diagnosis of hypertension 01/14/2008 06/20/2016 documented as of this encounter (statuses as of 05/06/2022) [address]10-2008 History of Past illness Narrative* Problem Noted Date Resolved Date Elevated blood pressure read ing without diagnosis of hypertension 01/14/2008 06/20/2016 documented as of this encounter (statuses as of 10/21/2022) [facility] History of Past illness Narrative* Problem Noted Date Resolved Date Elevated blood pressure read ing without diagnosis of hypertension 01/14/2008 06/20/2016 documented as of this encounter (statuses as of 01/09/2023) [facility] History of Past illness Narrative* Problem Noted Date Resolved Date Elevated blood pressure read ing without diagnosis of hypertension 01/14/2008 06/20/2016 documented as of this encounter (statuses as of 01/16/2023) [facility] History of Past illness Narrative* Problem Noted Date Resolved Date Elevated blood pressure read ing without diagnosis of hypertension 01/14/2008 06/20/2016 documented as of this encounter (statuses as of 01/19/2023) [address]2008 History of Past illness Narrative* Problem Noted Date Resolved Date Elevated blood pressure read ing without diagnosis of hypertension 01/14/2008 06/20/2016 documented as of this encounter (statuses as of 01/30/2023) [address]2008 History of Past illness Narrative* Problem Noted Date Diagnosed Date Resolved Date Elevated blood pressure read ing without diagnosis of hypertension 01/14/2008 06/20/2016 documented as of this encounter (statuses as of 05/16/2023) [facility] History of Past illness Narrative* Problem Noted Date Diagnosed Date Resolved Date Elevated blood pressure read ing without diagnosis of hypertension 01/14/2008 06/20/2016 documented as of this encounter (statuses as of 05/19/2023) [address]2008 History of Past illness Narrative* Problem Noted Date Diagnosed Date Resolved Date Elevated blood pressure read ing without diagnosis of hypertension 01/14/2008 06/20/2016 documented as of this encounter (statuses as of 05/25/2023) [address]2008 History of Past illness Narrative* Problem Noted Date Diagnosed Date Resolved Date Elevated blood pressure read ing without diagnosis of hypertension 01/14/2008 06/20/2016 documented as of this encounter (statuses as of 05/25/2023) [address]2008 History of Past illness Narrative* Problem Noted Date Diagnosed Date Resolved Date Elevated blood pressure read ing without diagnosis of hypertension 01/14/2008 06/20/2016 documented as of this encounter (statuses as of 06/08/2023) [address]2008 History of Past illness Narrative* Problem Noted Date Diagnosed Date Resolved Date Elevated blood pressure read ing without diagnosis of hypertension 01/14/2008 06/20/2016 documented as of this encounter (statuses as of 07/23/2023) [address]2008 History of Past illness Narrative* Problem Noted Date Diagnosed Date Resolved Date Elevated blood pressure read ing without diagnosis of hypertension 01/14/2008 06/20/2016 documented as of this encounter (statuses as of 08/10/2023) [address]2008 History of Past illness Narrative* Problem Noted Date Diagnosed Date Resolved Date Elevated blood pressure read ing without diagnosis of hypertension 01/14/2008 06/20/2016 documented as of this encounter (statuses as of 08/11/2023) [address]-2008 History of Past illness Narrative* Problem Noted Date Diagnosed Date Resolved Date Elevated blood pressure read ing without diagnosis of hypertension 01/14/2008 06/20/2016 documented as of this encounter (statuses as of 08/11/2023) [address]2008 History of Past illness Narrative* Problem Noted Date Diagnosed Date Resolved Date Elevated blood pressure read ing without diagnosis of hypertension 01/14/2008 06/20/2016 documented as of this encounter (statuses as of 09/09/2023) [address]-2008 History of Past illness Narrative* Problem Noted Date Diagnosed Date Resolved Date Elevated blood pressure read ing without diagnosis of hypertension 01/14/2008 06/20/2016 documented as of this encounter (statuses as of 09/13/2023) [address]2008 History of Past illness Narrative* Problem Noted Date Diagnosed Date Resolved Date Elevated blood pressure read ing without diagnosis of hypertension 01/14/2008 06/20/2016 documented as of this encounter (statuses as of 09/13/2023) [address]2008 History of Past illness Narrative* Problem Noted Date Diagnosed Date Resolved Date Elevated blood pressure read ing without diagnosis of hypertension 01/14/2008 06/20/2016 documented as of this encounter (statuses as of 12/13/2023) [facility]03-10-2008 History of Past illness Narrative* Problem Noted Date Diagnosed Date Resolved Date Elevated blood pressure read ing without diagnosis of hypertension 01/14/2008 06/20/2016 documented as of this encounter (statuses as of 12/21/2023) [facility]03-10-2008 History of Past illness Narrative* Problem Noted Date Diagnosed Date Resolved Date Elevated blood pressure read ing without diagnosis of hypertension 01/14/2008 06/20/2016 documented as of this encounter (statuses as of 12/21/2023) [address] History of Past illness Narrative* Problem Noted Date Diagnosed Date Resolved Date Elevated blood pressure read ing without diagnosis of hypertension 01/14/2008 06/20/2016 documented as of this encounter (statuses as of 01/25/2024) [facility] Diagnosis Onset Date Resolution Status Cough acute [facility] Work Phone: Evaluation note* Diagnosis Essential hypertension- Primary Unspecified essential [...] of other medications [facility] Diagnosis Onset Date Resolution Status Cough acute 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 Chronic 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 [facility] Work Phone: Evaluation note* Diagnosis Elevated fasting blood sugar- Primary Impaired fasting glucose Essential hypertension Unspecified essential hypertension Mixed hyperlipidemia Medication management Encounter for long-term (current) use of other medications Right thyroid nodule Nontoxic uninodular goiter [facility]* Diagnosis Medicare annual wellness visit, subsequent- [...] Abnormal chest sounds [facility] noteNo assessment information [facility] Work Phone: Evaluation [facility]* Diagnosis Dysuria- Primary [facility]* Diagnosis Burning with urination- Primary Dysuria [facility]* Diagnosis Essential hypertension- Primary Unspecified essential [...] of other medications [facility] Diagnosis URI with cough and congestion- Primary [facility]* Diagnosis COVID-19- Primary [facility]* Diagnosis Pulmonary nodules Other nonspecific abnormal finding of lung field Lung nodules Other nonspecific abnormal finding of lung field Abnormal lung sounds Abnormal chest sounds [facility] Diagnosis Rhinosinusitis- Primary Unspecified sinusitis (chronic) [facility]* Diagnosis Acute cough- Primary Post-nasal drainage Unspecified sinusitis (chronic) [facility]- [facility] Medicare annual wellness visit, subsequent- Primary Routine general medical examination at a health care facility Essential hypertension Unspecified essential hypertension Mixed hyperlipidemia [...] screening Special screening for malignant neoplasms, colon [facility] Diagnosis Acute cough- Primary Irregular heart beat Cardiac dysrhythmia, unspecified [facility] Diagnosis Hypoxia- Primary Hypoxemia History of pulmonary embolus (PE) Personal history of pulmonary embolism Essential hypertension Unspecified essential hypertension Acute cystitis without hematuria Acute cystitis [facility] Diagnosis Dysuria- Primary Frequent UTI Urinary tract infection, site not specified [facility] Diagnosis Multiple subsegmental pulmonary emboli without acute cor pulmonale (HCC)- Primary Acute hypoxemic respiratory failure (HCC) Chronic throat clearing Other symptoms involving head and neck [facility] Diagnosis Dyspnea and respiratory abnormalities [R06.00, R06.89]- Primary Other dyspnea and respiratory abnormality [facility] Diagnosis Dyspnea and respiratory abnormalities- Primary Other dyspnea and respiratory abnormality [facility]* Diagnosis Chronic vaginitis- Primary Vaginitis and vulvovaginitis, unspecified [facility] Diagnosis Chronic pulmonary embolism without acute cor pulmonale, unspecified pulmonary embolism type (HCC)- Primary History of pulmonary embolus (PE) Personal history of pulmonary embolism Encounter for screening mammogram for breast cancer [facility] Diagnosis Encounter for screening mammogram for breast cancer [facility] Diagnosis Encounter for screening mammogram for breast cancer- Primary Abnormal mammogram of both breasts [facility] Diagnosis Abnormal mammogram of both breasts- Primary [facility] Diagnosis Abnormal mammogram of both breasts [facility] Diagnosis Abnormal mammogram of both breasts [facility] Diagnosis Abnormal mammogram of both breasts- Primary [facility]* Diagnosis History of pulmonary embolus (PE)- Primary Personal history of pulmonary embolism [facility] Diagnosis Acute cough [facility]* Diagnosis Multiple subsegmental pulmonary emboli without acute cor pulmonale (HCC)- Primary Chronic anticoagulation Long-term (current) use of anticoagulants Hypoxemia [facility]* Diagnosis History of pulmonary embolus (PE) Personal history of pulmonary embolism [facility]* Diagnosis Numbness and tingling Disturbance of skin sensation documented in this encounter [facility] note* Diagnosis History of pulmonary embolus (PE) Personal history of pulmonary embolism [facility] Diagnosis Cough [facility]* Diagnosis Essential hypertension- Primary Unspecified essential hypertension Elevated fasting blood sugar Impaired fasting glucose GERD without esophagitis Esophageal reflux Migraine without aura and without status migrainosus, not intractable Migraine without aura, without mention of intractable migraine without mention of status migrainosus Mixed hyperlipidemia History of pulmonary embolus (PE) Personal history of pulmonary embolism Medication management Encounter for long-term (current) use of other medications [facility]* Diagnosis Abnormal mammogram of both breasts [facility] Diagnosis Abnormal mammogram of both breasts [facility]* Diagnosis Abnormal mammogram of both breasts- Primary [facility] Diagnosis Laceration of right upper extremity, subsequent encounter- Primary [facility]* Diagnosis Chronic pulmonary embolism without acute cor pulmonale, unspecified pulmonary embolism type (HCC)- Primary History of pulmonary embolus (PE) Personal history of pulmonary embolism Respiratory infection Other diseases of respiratory system, not elsewhere classified [facility]* Diagnosis Exposure to influenza- Primary Contact with or exposure to other viral diseases URI, acute Acute upper respiratory infections of unspecified site documented in this encounter [facility] note* Diagnosis COVID-19- Primary documented in this encounter [facility] note* Diagnosis Cough Acute non-recurrent maxillary sinusitis documented in this encounter [facility] note* Diagnosis History of pulmonary embolism- Primary Personal history of pulmonary embolism History of respiratory failure Personal history of other diseases of respiratory system documented in this encounter [facility] note* Diagnosis Herpes zoster without complication- Primary Herpes zoster without mention of complication documented in this encounter [facility] note* Diagnosis 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- Primary Long-term (current) use of anticoagulants documented in this encounter [facility] note* Diagnosis 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- Primary Long-term (current) use of anticoagulants History of pulmonary embolus (PE) Personal history of pulmonary embolism documented in this encounter [facility] note* Diagnosis History of pulmonary embolus (PE)- Primary Personal history of pulmonary embolism nursing home (current) use of anticoagulants Long-term (current) use of anticoagulants documented in this encounter [facility] for referral (narrative)* Outpatient Procedure (Routine) - Authorized Specialty Diagnoses / Procedures Referred By Shelli davis Referred To Contact [facility] Diagnoses Chronic cough Procedures NITRIC OXIDE, EXHALED NITRIC OXIDE GAS DETERMINATION Char Landeros MD [address] [place] [address] [address] Referral ID Status Reason Start Date Expiration Date Visits Requested Visits Authorized [id number] Authorized Auto-Generat ed Referral 04/19/2024 05/19/2025 1 1 * Outpatient Procedure (Routine) - Authorized Specialty Diagnoses / Procedures Referred By Shelli davis Referred To [facility] Diagnoses Chronic cough Procedures SPIROMETRY WITH DILATOR IF OBSTRUCTED BRNCDILAT RSPSE SPMTRY PRE&POST-BRNCDILAT ADMChar Worthy MD [address] [place] [address] Respiratory [place] [id number] Referral ID Status Reason Start Date Expiration Date Visits Requested Visits Authorized [id number] Authorized Auto-Generat ed Referral 04/19/2024 05/19/2025 1 1 [facility] for referral (narrative)* Diagnostic Procedure Only (Routine) - Authorized Specialty Diagnoses / Procedures Referred By Contac t Referred To Contact [facility] Diagnoses Encounter for screening mammogram for breast cancer Procedures NAFISA SCREENING W CHANEL SCREENING DIGITAL BREAST TOMOSYNTHESIS BI SCREENING MAMMOGRAPHY BI 2-VIEW BREAST INC CAD Cornel Clark, DO [address] [place] [place] [address] [facility] [address] [place] [address] Referral ID Status Reason Start Date Expiration Date Visits Requested Visits Authorized [id number] Authorized Auto-Generat ed Referral 05/21/2024 06/20/2025 1 1 [facility] for referral (narrative)* Diagnostic Procedure Only (Routine) - Authorized Specialty Diagnoses / Procedures Referred By Shelli t Referred To Contact [facility] Diagnoses Encounter for screening mammogram for breast cancer Abnormal mammogram of both breasts Procedures US BREAST LTD LEFT US BREAST UNI REAL TIME WITH IMAGE LIMITED Cornel Clark, DO [address] [address] [facility] [address] [place] [address] Referral ID Status Reason Start Date Expiration Date Visits Requested Visits Authorized [id number] Authorized Auto-Generat ed Referral 06/10/2024 07/10/2025 1 1 * Diagnostic Procedure Only (Routine) - Authorized Specialty Diagnoses / Procedures Referred By Charleneac t Referred To Contact [facility] Diagnoses Encounter for screening mammogram for breast cancer Abnormal mammogram of both breasts Procedures US BREAST LTD RIGHT US BREAST UNI REAL TIME WITH IMAGE LIMITED Cornel Clark DO [address] [place] [address] [facility] [address] [place] [address] Referral ID Status Reason Start Date Expiration Date Visits Requested Visits Authorized [id number] Authorized Auto-Generat ed Referral 06/10/2024 07/10/2025 1 1 * Diagnostic Procedure Only (Routine) - Authorized Specialty Diagnoses / Procedures Referred By Contac t Referred To Contact [facility] Diagnoses Encounter for screening mammogram for breast cancer Abnormal mammogram of both breasts Procedures NAFISA DIAGNOSTIC BILATERAL DIAGNOSTIC MAMMOGRAPHY COMPUTER-AIDED DETCJ BI Cornel Clark, DO [address] [place] [address] [facility] [address] [place] [address] Referral ID Status Reason Start Date Expiration Date Visits Requested Visits Authorized [id number] Authorized Auto-Generat ed Referral 06/10/2024 07/10/2025 1 1 [facility] for referral (narrative)* Diagnostic Procedure Only (Routine) - Authorized Specialty Diagnoses / Procedures Referred By Shelli davis Referred To Contact [facility] Diagnoses Abnormal mammogram of both breasts Procedures US BREAST LTD RIGHT US BREAST UNI REAL TIME WITH IMAGE LIMITED Cornel Clark DO [address] [place] [address] [facility] [address] [place] [address] Referral ID Status Reason Start Date Expiration Date Visits Requested Visits Authorized [id number] Authorized Auto-Generat ed Referral 06/10/2024 07/10/2025 1 1 * Diagnostic Procedure Only (Routine) - Authorized Specialty Diagnoses / Procedures Referred By Shelli t Referred To Contact [facility] Diagnoses Abnormal mammogram of both breasts Procedures US BREAST LTD LEFT US BREAST UNI REAL TIME WITH IMAGE LIMITED Cornel Clark DO [address] [place] [address] [facility] [address] [place] [address] Referral ID Status Reason Start Date Expiration Date Visits Requested Visits Authorized [id number] Authorized Auto-Generat ed Referral 06/10/2024 07/10/2025 1 1 * Diagnostic Procedure Only (Routine) - Authorized Specialty Diagnoses / Procedures Referred By Contac t Referred To Contact [facility] Diagnoses Abnormal mammogram of both breasts Procedures NAFISA DIAGNOSTIC BILATERAL DIAGNOSTIC MAMMOGRAPHY COMPUTER-AIDED DETCJ BI Cornel Clark, DO [address] [place] [address] [facility] [address] [place] [address] Referral ID Status Reason Start Date Expiration Date Visits Requested Visits Authorized [id number] Authorized Auto-Generat ed Referral 06/10/2024 07/10/2025 1 1 [facility] for referral (narrative)* Diagnostic Procedure Only (Routine) - Closed Specialty Diagnoses / Procedures Referred By Shelli t Referred To Contact [facility] Diagnoses Abnormal mammogram of both breasts Procedures US BREAST LTD RIGHT US BREAST UNI REAL TIME WITH IMAGE LIMITED Cornel Clark DO [address] [place] [address] [facility] [address] [place] [address] Referral ID Status Reason Start Date Expiration Date V isits Requested Visits Authorized [id number] Closed Auto-Generate d Referral 06/10/2024 07/10/2025 1 1 * Diagnostic Procedure Only (Routine) - Closed Specialty Diagnoses / Procedures Referred By Shelli t Referred To Contact [facility] Diagnoses Abnormal mammogram of both breasts Procedures US BREAST LTD LEFT US BREAST UNI REAL TIME WITH IMAGE LIMITED Cornel Clark, DO [address] [place] [address] [facility] [address] [place] [address] Referral ID Status Reason Start Date Expiration Date V isits Requested Visits Authorized [id number] Closed Auto-Generate d Referral 06/10/2024 07/10/2025 1 1 [facility] for referral (narrative)* Diagnostic Procedure Only (Routine) - New Request Specialty Diagnoses / Procedures Referred By Shelli davis Referred To Contact [facility] Diagnoses Abnormal mammogram of both breasts Procedures US BREAST LTD LEFT US BREAST UNI REAL TIME WITH IMAGE LIMITED Cornel Clark, DO [address] [place] [address] [facility] [address] [place] [address] Referral ID Status Reason Start Date Expiration Date Visits Requested Visits Authorized [id number] New Request Auto-Generat ed Referral 12/13/2024 07/12/2025 1 1 * Diagnostic Procedure Only (Routine) - New Request Specialty Diagnoses / Procedures Referred By Shelli davis Referred To Contact [facility] Diagnoses Abnormal mammogram of both breasts Procedures NAFISA DIAGNOSTIC BILATERAL DIAGNOSTIC MAMMOGRAPHY COMPUTER-AIDED DETCJ BI Cornel Clark, DO [address] [place] [address] [facility] [address] [place] [address] Referral ID Status Reason Start Date Expiration Date Visits Requested Visits Authorized [id number] New Request Auto-Generat ed Referral 12/13/2024 07/12/2025 1 1 [facility] for visit Narrative* Diagnostic Procedure Only (Routine) - Closed Specialty Diagnoses / Procedures Referred By Shelli davis Referred To Contact [facility] Diagnoses Encounter for screening mammogram for breast cancer Procedures NAFISA SCREENING W CHANEL SCREENING DIGITAL BREAST TOMOSYNTHESIS BI SCREENING MAMMOGRAPHY BI 2-VIEW BREAST INC CAD Cornel Clark, DO [address] [place] [address] [facility] [address] [place] [address] Referral ID Status Reason Start Date Expiration Date V isits Requested Visits Authorized [id number] Closed Auto-Generate d Referral 05/21/2024 06/20/2025 1 1 [facility] for visit Narrative* Diagnostic Procedure Only (Routine) - Closed Specialty Diagnoses / Procedures Referred By Contac t Referred To Contact [facility] Diagnoses Abnormal mammogram of both breasts Procedures NAFISA DIAGNOSTIC BILATERAL DIAGNOSTIC MAMMOGRAPHY COMPUTER-AIDED DETCJ Cornel Clark, DO [address] [place] [address] [facility] [address] [place] [address] Referral ID Status Reason Start Date Expiration Date V isits Requested Visits Authorized [id number] Closed Auto-Generate d Referral 06/10/2024 07/10/2025 1 1 [facility] for visit Narrative* Diagnostic Procedure Only (Routine) - Closed Specialty Diagnoses / Procedures Referred By Contac t Referred To Contact [facility] Diagnoses Abnormal mammogram of both breasts Procedures NAFISA DIAGNOSTIC BILATERAL DIAGNOSTIC MAMMOGRAPHY COMPUTER-AIDED DETCJ Cornel Clark, DO [address] [place] [address] Phone: tel: fax: [facility] [address] [place] [address] Referral ID Status Reason Start Date Expiration Date V isits Requested Visits Authorized [id number] Closed Auto-Generate d Referral 12/13/2024 07/12/2025 1 1 [facility] Chief Complaint and Reason for Visit Chief Complaint Gastroesophageal ref lux disease (GERD) INT LABS Reason for Visit Cough Chief Complaint Gastroesophageal ref lux disease (GERD) INT LABS 2 WK FU THROAT CLEARING, ? 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 Chief Complaint UTI Chief Complaint UTI COMPLAINT Family History Relationship Condition Age at Onset Recorded Date/T miguelina mother Cardiac disease Unknown father Cardiac disease Unknown brother Cardiac disease Unknown Coronary artery disease Unknown Advance Directives Advance Directive Response Recorded Date/ Time Living Will Yes January 19, 2019 7:50am Power of Munitions Worker Yes January 19 7:50am Advance Directive Response Recorded Date/ Time Living Will Yes April 07, 2022 4 :40pm Power of Munitions Worker Yes April 07, 2022 4:40pm Documents on File Type Date Recorded 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 Advance Directive(s) 06/22/2020 9:10 AM Advance Directive(s) 06/16/2020 3:03 PM Advance Directive(s) 12/21/2006 12:00 AM Advance Directive Response Recorded Date/ Time Name of Medical Power of Munitions Worker POA son Nate Ferris, dgtr Patti Simmons April 07, 2022 4:40pm Living Will Yes April 07, 2022 4 :40pm Power of Munitions Worker Yes April 07, 2022 4:40pm Documents on File Type Date Recorded 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 Advance Directive(s) 12/21/2006 Documents on File Type Date Recorded 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 Advance Directive(s) 12/21/2006 Advance Directive Response Recorded Date/ Time Living Will No May 12, 2023 8 :15pm Power of Munitions Worker No May 12, 2023 8:15pm Advance Directive Response Recorded Date/ Time Living Will Yes May 16, 2023 2:26pm Power of Munitions Worker Yes May 16 2:26pm Name of Medical Power of Munitions Worker NATE FERRIS May 16, 2023 2:26pm Advance Directive Response Recorded Date/ Time Name of Medical Power of Munitions Worker November 08, 2023 4:58pm Living Will Yes November 08 4:58pm Power of Munitions Worker Yes November 08, 4:58pm Chief Complaint New patient visit Summary Purpose Reason for Referral Specialty Diagnoses / Procedures Referred By Shelli davis Referred To Contact CT IMAGING Diagnoses Pulmonary nodules Lung nodules Abnormal lung sounds Procedures CT CHEST WO IVCON DIAGNOSTIC COMPUTED TOMOGRAPHY THORAX W/O CNTRST Rangel Bonilla MD [address] [place] [address] Ct Imaging Referral ID Status Reason Start Date Expiration Date Visits Requested Visits Authorized [id number] Authorized Auto-Generat ed Referral 01/16/2023 02/15/2024 1 1 Specialty Diagnoses / Procedures Referred By Shelli davis Referred To Contact CT IMAGING Diagnoses Pulmonary nodules Lung nodules Abnormal lung sounds Procedures CT CHEST WO IVCON DIAGNOSTIC COMPUTED TOMOGRAPHY THORAX W/O CNTRST Rangel Bonilla MD [address] [place] [address] [place] [address] Referral ID Status Reason Start Date Expiration Date V isits Requested Visits Authorized [id number] Closed Auto-Generate d Referral 01/16/2023 02/15/2024 1 1 Specialty Diagnoses / Procedures Referred By Contac t Referred To Contact Hematology Diagnoses History of pulmonary embolus (PE) Procedures CONSULT TO HEMATOLOGY OFFICE/OUTPATIENT [facility] 60 MINUTES Rangel Bonilla MD [address] [place] [address] Referral ID Status Reason Start Date Expiration Date Visits Requested Visits Authorized [id number] Authorized PCP Requested Referral 04/15/2024 04/15/2025 1 1 Health Concerns Infection Onset Date Last Indicated Resolved Time COVID-19 Rule-Out 08/09/2023 08/09/2023 08/09/2023 7:56 PM EDT Infection Onset Date Last Indicated Resolved Time COVID-19 Confirmed 08/09/2023 08/09/2023 Additional Source Comments Goals (unrecognized section and content) Goals may be documented in a n alternate sectionGoals may be documented in an alternate sectionGoals may be documented in an alternate sectionGoals may be documented in an alternate sectionGoals may be documented in an alternate sectionGoals may be documented in an alternate section Source Comments (unrecognize d section and content) In the event this informatio n is protected by the Federal Confidentiality of Alcohol and Drug Abuse Patient Records regulations: The Federal rules restrict any use of the information to criminally investigate or prosecute any alcohol or drug abuse patient.[facility]In the event this information is protected by the Federal Confidentiality of Alcohol and Drug Abuse Patient Records regulations: The Federal rules restrict any use of the information to criminally investigate or prosecute any alcohol or drug abuse patient.[facility] HospitalIn the event this information is protected by the Federal Confidentiality of Alcohol and Drug Abuse Patient Records regulations: The Federal rules restrict any use of the information to criminally investigate or prosecute any alcohol or drug abuse patient.[facility] HospitalIn the event this information is protected by the Federal Confidentiality of Alcohol and Drug Abuse Patient Records regulations: The Federal rules restrict any use of the information to criminally investigate or prosecute any alcohol or drug abuse patient.[facility] HospitalIn the event this information is protected by the Federal Confidentiality of Alcohol and Drug Abuse Patient Records regulations: The Federal rules restrict any use of the information to criminally investigate or prosecute any alcohol or drug abuse patient.[facility] HospitalIn the event this information is protected by the Federal Confidentiality of Alcohol and Drug Abuse Patient Records regulations: The Federal rules restrict any use of the information to criminally investigate or prosecute any alcohol or drug abuse patient.[facility] HospitalIn the event this information is protected by the Federal Confidentiality of Alcohol and Drug Abuse Patient Records regulations: The Federal rules restrict any use of the information to criminally investigate or prosecute any alcohol or drug abuse patient.[facility] HospitalIn the event this information is protected by the Federal Confidentiality of Alcohol and Drug Abuse Patient Records regulations: The Federal rules restrict any use of the information to criminally investigate or prosecute any alcohol or drug abuse patient.[facility] HospitalIn the event this information is protected by the Federal Confidentiality of Alcohol and Drug Abuse Patient Records regulations: The Federal rules restrict any use of the information to criminally investigate or prosecute any alcohol or drug abuse patient.[facility] HospitalIn the event this information is protected by the Federal Confidentiality of Alcohol and Drug Abuse Patient Records regulations: The Federal rules restrict any use of the information to criminally investigate or prosecute any alcohol or drug abuse patient.[facility] HospitalIn the event this information is protected by the Federal Confidentiality of Alcohol and Drug Abuse Patient Records regulations: The Federal rules restrict any use of the information to criminally investigate or prosecute any alcohol or drug abuse patient.[facility] HospitalIn the event this information is protected by the Federal Confidentiality of Alcohol and Drug Abuse Patient Records regulations: The Federal rules restrict any use of the information to criminally investigate or prosecute any alcohol or drug abuse patient.[facility] HospitalIn the event this information is protected by the Federal Confidentiality of Alcohol and Drug Abuse Patient Records regulations: The Federal rules restrict any use of the information to criminally investigate or prosecute any alcohol or drug abuse patient.[facility] HospitalIn the event this information is protected by the Federal Confidentiality of Alcohol and Drug Abuse Patient Records regulations: The Federal rules restrict any use of the information to criminally investigate or prosecute any alcohol or drug abuse patient.[facility] HospitalIn the event this information is protected by the Federal Confidentiality of Alcohol and Drug Abuse Patient Records regulations: The Federal rules restrict any use of the information to criminally investigate or prosecute any alcohol or drug abuse patient.[facility] HospitalIn the event this information is protected by the Federal Confidentiality of Alcohol and Drug Abuse Patient Records regulations: The Federal rules restrict any use of the information to criminally investigate or prosecute any alcohol or drug abuse patient.[facility] HospitalIn the event this information is protected by the Federal Confidentiality of Alcohol and Drug Abuse Patient Records regulations: The Federal rules restrict any use of the information to criminally investigate or prosecute any alcohol or drug abuse patient.[facility] HospitalIn the event this information is protected by the Federal Confidentiality of Alcohol and Drug Abuse Patient Records regulations: The Federal rules restrict any use of the information to criminally investigate or prosecute any alcohol or drug abuse patient.[facility] HospitalIn the event this information is protected by the Federal Confidentiality of Alcohol and Drug Abuse Patient Records regulations: The Federal rules restrict any use of the information to criminally investigate or prosecute any alcohol or drug abuse patient.[facility] HospitalIn the event this information is protected by the Federal Confidentiality of Alcohol and Drug Abuse Patient Records regulations: The Federal rules restrict any use of the information to criminally investigate or prosecute any alcohol or drug abuse patient.[facility] HospitalIn the event this information is protected by the Federal Confidentiality of Alcohol and Drug Abuse Patient Records regulations: The Federal rules restrict any use of the information to criminally investigate or prosecute any alcohol or drug abuse patient.[facility] HospitalIn the event this information is protected by the Federal Confidentiality of Alcohol and Drug Abuse Patient Records regulations: The Federal rules restrict any use of the information to criminally investigate or prosecute any alcohol or drug abuse patient.[facility] HospitalIn the event this information is protected by the Federal Confidentiality of Alcohol and Drug Abuse Patient Records regulations: The Federal rules restrict any use of the information to criminally investigate or prosecute any alcohol or drug abuse patient.[facility] HospitalIn the event this information is protected by the Federal Confidentiality of Alcohol and Drug Abuse Patient Records regulations: The Federal rules restrict any use of the information to criminally investigate or prosecute any alcohol or drug abuse patient.[facility] HospitalIn the event this information is protected by the Federal Confidentiality of Alcohol and Drug Abuse Patient Records regulations: The Federal rules restrict any use of the information to criminally investigate or prosecute any alcohol or drug abuse patient.[facility] HospitalIn the event this information is protected by the Federal Confidentiality of Alcohol and Drug Abuse Patient Records regulations: The Federal rules restrict any use of the information to criminally investigate or prosecute any alcohol or drug abuse patient.[facility] HospitalIn the event this information is protected by the Federal Confidentiality of Alcohol and Drug Abuse Patient Records regulations: The Federal rules restrict any use of the information to criminally investigate or prosecute any alcohol or drug abuse patient.[facility] HospitalIn the event this information is protected by the Federal Confidentiality of Alcohol and Drug Abuse Patient Records regulations: The Federal rules restrict any use of the information to criminally investigate or prosecute any alcohol or drug abuse patient.[facility] HospitalIn the event this information is protected by the Federal Confidentiality of Alcohol and Drug Abuse Patient Records regulations: The Federal rules restrict any use of the information to criminally investigate or prosecute any alcohol or drug abuse patient.[facility] HospitalIn the event this information is protected by the Federal Confidentiality of Alcohol and Drug Abuse Patient Records regulations: The Federal rules restrict any use of the information to criminally investigate or prosecute any alcohol or drug abuse patient.[facility] HospitalIn the event this information is protected by the Federal Confidentiality of Alcohol and Drug Abuse Patient Records regulations: The Federal rules restrict any use of the information to criminally investigate or prosecute any alcohol or drug abuse patient.[facility] HospitalIn the event this information is protected by the Federal Confidentiality of Alcohol and Drug Abuse Patient Records regulations: The Federal rules restrict any use of the information to criminally investigate or prosecute any alcohol or drug abuse patient.[facility] HospitalIn the event this information is protected by the Federal Confidentiality of Alcohol and Drug Abuse Patient Records regulations: The Federal rules restrict any use of the information to criminally investigate or prosecute any alcohol or drug abuse patient.[facility] HospitalIn the event this information is protected by the Federal Confidentiality of Alcohol and Drug Abuse Patient Records regulations: The Federal rules restrict any use of the information to criminally investigate or prosecute any alcohol or drug abuse patient.[facility] HospitalIn the event this information is protected by the Federal Confidentiality of Alcohol and Drug Abuse Patient Records regulations: The Federal rules restrict any use of the information to criminally investigate or prosecute any alcohol or drug abuse patient.[facility] HospitalIn the event this information is protected by the Federal Confidentiality of Alcohol and Drug Abuse Patient Records regulations: The Federal rules restrict any use of the information to criminally investigate or prosecute any alcohol or drug abuse patient.[facility] HospitalIn the event this information is protected by the Federal Confidentiality of Alcohol and Drug Abuse Patient Records regulations: The Federal rules restrict any use of the information to criminally investigate or prosecute any alcohol or drug abuse patient.[facility] HospitalIn the event this information is protected by the Federal Confidentiality of Alcohol and Drug Abuse Patient Records regulations: The Federal rules restrict any use of the information to criminally investigate or prosecute any alcohol or drug abuse patient.[facility] HospitalIn the event this information is protected by the Federal Confidentiality of Alcohol and Drug Abuse Patient Records regulations: The Federal rules restrict any use of the information to criminally investigate or prosecute any alcohol or drug abuse patient.[facility] HospitalIn the event this information is protected by the Federal Confidentiality of Alcohol and Drug Abuse Patient Records regulations: The Federal rules restrict any use of the information to criminally investigate or prosecute any alcohol or drug abuse patient.[facility] HospitalIn the event this information is protected by the Federal Confidentiality of Alcohol and Drug Abuse Patient Records regulations: The Federal rules restrict any use of the information to criminally investigate or prosecute any alcohol or drug abuse patient.[facility] HospitalIn the event this information is protected by the Federal Confidentiality of Alcohol and Drug Abuse Patient Records regulations: The Federal rules restrict any use of the information to criminally investigate or prosecute any alcohol or drug abuse patient.[facility] HospitalIn the event this information is protected by the Federal Confidentiality of Alcohol and Drug Abuse Patient Records regulations: The Federal rules restrict any use of the information to criminally investigate or prosecute any alcohol or drug abuse patient.[facility] HospitalIn the event this information is protected by the Federal Confidentiality of Alcohol and Drug Abuse Patient Records regulations: The Federal rules restrict any use of the information to criminally investigate or prosecute any alcohol or drug abuse patient.[facility] HospitalIn the event this information is protected by the Federal Confidentiality of Alcohol and Drug Abuse Patient Records regulations: The Federal rules restrict any use of the information to criminally investigate or prosecute any alcohol or drug abuse patient.[facility] HospitalIn the event this information is protected by the Federal Confidentiality of Alcohol and Drug Abuse Patient Records regulations: The Federal rules restrict any use of the information to criminally investigate or prosecute any alcohol or drug abuse patient.[facility] HospitalIn the event this information is protected by the Federal Confidentiality of Alcohol and Drug Abuse Patient Records regulations: The Federal rules restrict any use of the information to criminally investigate or prosecute any alcohol or drug abuse patient.[facility] HospitalIn the event this information is protected by the Federal Confidentiality of Alcohol and Drug Abuse Patient Records regulations: The Federal rules restrict any use of the information to criminally investigate or prosecute any alcohol or drug abuse patient.[facility] HospitalIn the event this information is protected by the Federal Confidentiality of Alcohol and Drug Abuse Patient Records regulations: The Federal rules restrict any use of the information to criminally investigate or prosecute any alcohol or drug abuse patient.[facility] HospitalIn the event this information is protected by the Federal Confidentiality of Alcohol and Drug Abuse Patient Records regulations: The Federal rules restrict any use of the information to criminally investigate or prosecute any alcohol or drug abuse patient.[facility] HospitalIn the event this information is protected by the Federal Confidentiality of Alcohol and Drug Abuse Patient Records regulations: The Federal rules restrict any use of the information to criminally investigate or prosecute any alcohol or drug abuse patient.[facility] HospitalIn the event this information is protected by the Federal Confidentiality of Alcohol and Drug Abuse Patient Records regulations: The Federal rules restrict any use of the information to criminally investigate or prosecute any alcohol or drug abuse patient.[facility] HospitalIn the event this information is protected by the Federal Confidentiality of Alcohol and Drug Abuse Patient Records regulations: The Federal rules restrict any use of the information to criminally investigate or prosecute any alcohol or drug abuse patient.[facility] HospitalIn the event this information is protected by the Federal Confidentiality of Alcohol and Drug Abuse Patient Records regulations: The Federal rules restrict any use of the information to criminally investigate or prosecute any alcohol or drug abuse patient.[facility] HospitalIn the event this information is protected by the Federal Confidentiality of Alcohol and Drug Abuse Patient Records regulations: The Federal rules restrict any use of the information to criminally investigate or prosecute any alcohol or drug abuse patient.[facility] HospitalIn the event this information is protected by the Federal Confidentiality of Alcohol and Drug Abuse Patient Records regulations: The Federal rules restrict any use of the information to criminally investigate or prosecute any alcohol or drug abuse patient.[facility] HospitalIn the event this information is protected by the Federal Confidentiality of Alcohol and Drug Abuse Patient Records regulations: The Federal rules restrict any use of the information to criminally investigate or prosecute any alcohol or drug abuse patient.[facility] HospitalIn the event this information is protected by the Federal Confidentiality of Alcohol and Drug Abuse Patient Records regulations: The Federal rules restrict any use of the information to criminally investigate or prosecute any alcohol or drug abuse patient.[facility] HospitalIn the event this information is protected by the Federal Confidentiality of Alcohol and Drug Abuse Patient Records regulations: The Federal rules restrict any use of the information to criminally investigate or prosecute any alcohol or drug abuse patient.[facility] HospitalIn the event this information is protected by the Federal Confidentiality of Alcohol and Drug Abuse Patient Records regulations: The Federal rules restrict any use of the information to criminally investigate or prosecute any alcohol or drug abuse patient.[facility] HospitalIn the event this information is protected by the Federal Confidentiality of Alcohol and Drug Abuse Patient Records regulations: The Federal rules restrict any use of the information to criminally investigate or prosecute any alcohol or drug abuse patient.[facility] HospitalIn the event this information is protected by the Federal Confidentiality of Alcohol and Drug Abuse Patient Records regulations: The Federal rules restrict any use of the information to criminally investigate or prosecute any alcohol or drug abuse patient.[facility] HospitalIn the event this information is protected by the Federal Confidentiality of Alcohol and Drug Abuse Patient Records regulations: The Federal rules restrict any use of the information to criminally investigate or prosecute any alcohol or drug abuse patient.[facility] HospitalIn the event this information is protected by the Federal Confidentiality of Alcohol and Drug Abuse Patient Records regulations: The Federal rules restrict any use of the information to criminally investigate or prosecute any alcohol or drug abuse patient.[facility] HospitalIn the event this information is protected by the Federal Confidentiality of Alcohol and Drug Abuse Patient Records regulations: The Federal rules restrict any use of the information to criminally investigate or prosecute any alcohol or drug abuse patient.[facility] HospitalIn the event this information is protected by the Federal Confidentiality of Alcohol and Drug Abuse Patient Records regulations: The Federal rules restrict any use of the information to criminally investigate or prosecute any alcohol or drug abuse patient.[facility] HospitalIn the event this information is protected by the Federal Confidentiality of Alcohol and Drug Abuse Patient Records regulations: The Federal rules restrict any use of the information to criminally investigate or prosecute any alcohol or drug abuse patient.[facility] HospitalIn the event this information is protected by the Federal Confidentiality of Alcohol and Drug Abuse Patient Records regulations: The Federal rules restrict any use of the information to criminally investigate or prosecute any alcohol or drug abuse patient.[facility] HospitalIn the event this information is protected by the Federal Confidentiality of Alcohol and Drug Abuse Patient Records regulations: The Federal rules restrict any use of the information to criminally investigate or prosecute any alcohol or drug abuse patient.[facility] HospitalIn the event this information is protected by the Federal Confidentiality of Alcohol and Drug Abuse Patient Records regulations: The Federal rules restrict any use of the information to criminally investigate or prosecute any alcohol or drug abuse patient.[facility] HospitalIn the event this information is protected by the Federal Confidentiality of Alcohol and Drug Abuse Patient Records regulations: The Federal rules restrict any use of the information to criminally investigate or prosecute any alcohol or drug abuse patient.[facility] HospitalIn the event this information is protected by the Federal Confidentiality of Alcohol and Drug Abuse Patient Records regulations: The Federal rules restrict any use of the information to criminally investigate or prosecute any alcohol or drug abuse patient.[facility] HospitalIn the event this information is protected by the Federal Confidentiality of Alcohol and Drug Abuse Patient Records regulations: The Federal rules restrict any use of the information to criminally investigate or prosecute any alcohol or drug abuse patient.[facility] HospitalIn the event this information is protected by the Federal Confidentiality of Alcohol and Drug Abuse Patient Records regulations: The Federal rules restrict any use of the information to criminally investigate or prosecute any alcohol or drug abuse patient.[facility] HospitalIn the event this information is protected by the Federal Confidentiality of Alcohol and Drug Abuse Patient Records regulations: The Federal rules restrict any use of the information to criminally investigate or prosecute any alcohol or drug abuse patient.[facility] HospitalIn the event this information is protected by the Federal Confidentiality of Alcohol and Drug Abuse Patient Records regulations: The Federal rules restrict any use of the information to criminally investigate or prosecute any alcohol or drug abuse patient.[facility] HospitalIn the event this information is protected by the Federal Confidentiality of Alcohol and Drug Abuse Patient Records regulations: The Federal rules restrict any use of the information to criminally investigate or prosecute any alcohol or drug abuse patient.[facility] HospitalIn the event this information is protected by the Federal Confidentiality of Alcohol and Drug Abuse Patient Records regulations: The Federal rules restrict any use of the information to criminally investigate or prosecute any alcohol or drug abuse patient.[facility] HospitalIn the event this information is protected by the Federal Confidentiality of Alcohol and Drug Abuse Patient Records regulations: The Federal rules restrict any use of the information to criminally investigate or prosecute any alcohol or drug abuse patient.[facility] HospitalIn the event this information is protected by the Federal Confidentiality of Alcohol and Drug Abuse Patient Records regulations: The Federal rules restrict any use of the information to criminally investigate or prosecute any alcohol or drug abuse patient.[facility] HospitalIn the event this information is protected by the Federal Confidentiality of Alcohol and Drug Abuse Patient Records regulations: The Federal rules restrict any use of the information to criminally investigate or prosecute any alcohol or drug abuse patient.[facility] HospitalIn the event this information is protected by the Federal Confidentiality of Alcohol and Drug Abuse Patient Records regulations: The Federal rules restrict any use of the information to criminally investigate or prosecute any alcohol or drug abuse patient.[facility] HospitalIn the event this information is protected by the Federal Confidentiality of Alcohol and Drug Abuse Patient Records regulations: The Federal rules restrict any use of the information to criminally investigate or prosecute any alcohol or drug abuse patient.[facility] HospitalIn the event this information is protected by the Federal Confidentiality of Alcohol and Drug Abuse Patient Records regulations: The Federal rules restrict any use of the information to criminally investigate or prosecute any alcohol or drug abuse patient.[facility] HospitalIn the event this information is protected by the Federal Confidentiality of Alcohol and Drug Abuse Patient Records regulations: The Federal rules restrict any use of the information to criminally investigate or prosecute any alcohol or drug abuse patient.[facility] HospitalIn the event this information is protected by the Federal Confidentiality of Alcohol and Drug Abuse Patient Records regulations: The Federal rules restrict any use of the information to criminally investigate or prosecute any alcohol or drug abuse patient.[facility] HospitalIn the event this information is protected by the Federal Confidentiality of Alcohol and Drug Abuse Patient Records regulations: The Federal rules restrict any use of the information to criminally investigate or prosecute any alcohol or drug abuse patient.[facility] HospitalIn the event this information is protected by the Federal Confidentiality of Alcohol and Drug Abuse Patient Records regulations: The Federal rules restrict any use of the information to criminally investigate or prosecute any alcohol or drug abuse patient.[facility] HospitalIn the event this information is protected by the Federal Confidentiality of Alcohol and Drug Abuse Patient Records regulations: The Federal rules restrict any use of the information to criminally investigate or prosecute any alcohol or drug abuse patient.[facility] HospitalIn the event this information is protected by the Federal Confidentiality of Alcohol and Drug Abuse Patient Records regulations: The Federal rules restrict any use of the information to criminally investigate or prosecute any alcohol or drug abuse patient.[facility] HospitalIn the event this information is protected by the Federal Confidentiality of Alcohol and Drug Abuse Patient Records regulations: The Federal rules restrict any use of the information to criminally investigate or prosecute any alcohol or drug abuse patient.[facility] HospitalIn the event this information is protected by the Federal Confidentiality of Alcohol and Drug Abuse Patient Records regulations: The Federal rules restrict any use of the information to criminally investigate or prosecute any alcohol or drug abuse patient.[facility] HospitalIn the event this information is protected by the Federal Confidentiality of Alcohol and Drug Abuse Patient Records regulations: The Federal rules restrict any use of the information to criminally investigate or prosecute any alcohol or drug abuse patient.[facility] HospitalIn the event this information is protected by the Federal Confidentiality of Alcohol and Drug Abuse Patient Records regulations: The Federal rules restrict any use of the information to criminally investigate or prosecute any alcohol or drug abuse patient.[facility] HospitalIn the event this information is protected by the Federal Confidentiality of Alcohol and Drug Abuse Patient Records regulations: The Federal rules restrict any use of the information to criminally investigate or prosecute any alcohol or drug abuse patient.[facility] HospitalIn the event this information is protected by the Federal Confidentiality of Alcohol and Drug Abuse Patient Records regulations: The Federal rules restrict any use of the information to criminally investigate or prosecute any alcohol or drug abuse patient.[facility] HospitalIn the event this information is protected by the Federal Confidentiality of Alcohol and Drug Abuse Patient Records regulations: The Federal rules restrict any use of the information to criminally investigate or prosecute any alcohol or drug abuse patient.[facility] HospitalIn the event this information is protected by the Federal Confidentiality of Alcohol and Drug Abuse Patient Records regulations: The Federal rules restrict any use of the information to criminally investigate or prosecute any alcohol or drug abuse patient.[facility] HospitalIn the event this information is protected by the Federal Confidentiality of Alcohol and Drug Abuse Patient Records regulations: The Federal rules restrict any use of the information to criminally investigate or prosecute any alcohol or drug abuse patient.[facility] HospitalIn the event this information is protected by the Federal Confidentiality of Alcohol and Drug Abuse Patient Records regulations: The Federal rules restrict any use of the information to criminally investigate or prosecute any alcohol or drug abuse patient.[facility] HospitalIn the event this information is protected by the Federal Confidentiality of Alcohol and Drug Abuse Patient Records regulations: The Federal rules restrict any use of the information to criminally investigate or prosecute any alcohol or drug abuse patient.[facility] HospitalIn the event this information is protected by the Federal Confidentiality of Alcohol and Drug Abuse Patient Records regulations: The Federal rules restrict any use of the information to criminally investigate or prosecute any alcohol or drug abuse patient.[facility] HospitalIn the event this information is protected by the Federal Confidentiality of Alcohol and Drug Abuse Patient Records regulations: The Federal rules restrict any use of the information to criminally investigate or prosecute any alcohol or drug abuse patient.[facility] HospitalIn the event this information is protected by the Federal Confidentiality of Alcohol and Drug Abuse Patient Records regulations: The Federal rules restrict any use of the information to criminally investigate or prosecute any alcohol or drug abuse patient.[facility] HospitalIn the event this information is protected by the Federal Confidentiality of Alcohol and Drug Abuse Patient Records regulations: The Federal rules restrict any use of the information to criminally investigate or prosecute any alcohol or drug abuse patient.[facility] HospitalIn the event this information is protected by the Federal Confidentiality of Alcohol and Drug Abuse Patient Records regulations: The Federal rules restrict any use of the information to criminally investigate or prosecute any alcohol or drug abuse patient.[facility] HospitalIn the event this information is protected by the Federal Confidentiality of Alcohol and Drug Abuse Patient Records regulations: The Federal rules restrict any use of the information to criminally investigate or prosecute any alcohol or drug abuse patient.[facility] HospitalIn the event this information is protected by the Federal Confidentiality of Alcohol and Drug Abuse Patient Records regulations: The Federal rules restrict any use of the information to criminally investigate or prosecute any alcohol or drug abuse patient.[facility] HospitalIn the event this information is protected by the Federal Confidentiality of Alcohol and Drug Abuse Patient Records regulations: The Federal rules restrict any use of the information to criminally investigate or prosecute any alcohol or drug abuse patient.[facility] HospitalIn the event this information is protected by the Federal Confidentiality of Alcohol and Drug Abuse Patient Records regulations: The Federal rules restrict any use of the information to criminally investigate or prosecute any alcohol or drug abuse patient.[facility] HospitalIn the event this information is protected by the Federal Confidentiality of Alcohol and Drug Abuse Patient Records regulations: The Federal rules restrict any use of the information to criminally investigate or prosecute any alcohol or drug abuse patient.[facility] HospitalIn the event this information is protected by the Federal Confidentiality of Alcohol and Drug Abuse Patient Records regulations: The Federal rules restrict any use of the information to criminally investigate or prosecute any alcohol or drug abuse patient.[facility] Reason for Visit (unrecogniz ed section and content) Reason Comments F/U 6 months Reason Comments outside gastro Reason Onset Date Comments Refill Request 10/21/2022 Reason Comments Lab Orders Reason Comments Medicare Wellness Exam Reason Comments Results Reason Comments Patient Update Reason Comments Urinary Problem Pt reported urinary frequency, burning x1-2 wks, recent [facility] ER Visit 05/12/2023, 05/16/2023 completed ATB. Reason Comments Outside Urology Reason Comments Cough Fever, ST, chest con gestion x2 days Reason Comments Radiology CT Specialty Diagnoses / Procedures [facility] To Contact [facility] IM[facility]ING Diagnoses Pulmonary nodules Lung nodules Abnormal lung sounds Procedures CT CHEST WO IVCON DIAGNOSTIC COMPUTED TOMOGRAPHY THORAX W/O Rangel Bae MD [address] [place] [address] Ct Imaging [facility] Referral ID Status Reason Start Date Expiration Date V isits Requested Visits Authorized [id number] Closed Auto-Generate d Referral 01/16/2023 02/15/2024 1 1 Reason Comments Cough Cough, sinus pressur e and loss of voice x 12 days Reason Comments Chest Congestion cough, wheezing x 10 days Reason Comments Cough X1.5 weeks, L ear pa in x last night Reason Comments Medicare Wellness Exam Reason Comments Outside ED Reason Comments Cough X1 week, fever and n ausea x3 days Reason Comments patient update/cancellation of apt Reason Onset Date Comments Transition Of Care 04/10/2024 [facility] Discharge 04/09/24 Reason Comments Transition Of Care Reason Comments Appointment Reason Onset Date Comments Transition Of Care 04/17/2024 [facility] Follow-up Day 8 Reason Comments Urinary Problem Reason Comments New Patient Evaluation consultation Reason Comments Patient Question Reason Onset Date Comments Transition Of Care 04/23/2024 [facility] Follow-up Day 14 Reason Onset Date Comments Transition Of Care 04/28/2024 [facility] Follow-up Day 19 Reason Comments Spirometry Specialty Diagnoses / Procedures Referred By [facility] Diagnoses Chronic cough Procedures SPIROMETRY WITH DILATOR IF OBSTRUCTED BRNCDILAT RSPSE SPMTRY PRE&POST-BRNCDILAT ADMN Char Landeros MD [address] [place] [address] [facility] [address] [place] [address] Referral ID Status Reason Start Date Expiration Date V isits Requested Visits Authorized [id number] Closed Auto-Generate d Referral 04/19/2024 05/19/2025 1 1 Specialty Diagnoses / Procedures [facility] Diagnoses Chronic cough Procedures NITRIC OXIDE, EXHALED NITRIC OXIDE GAS DETERMINATION Char Landeros MD [address] [place] [address] [facility] [address] [place] [address] Referral ID Status Reason Start Date Expiration Date V isits Requested Visits Authorized [id number] Closed Auto-Generate d Referral 04/19/2024 05/19/2025 1 1 Reason Onset Date Comments Refill Request 05/01/2024 Reason Comments Pain Reason Onset Date Comments Transition Of Care 05/07/2024 [facility], Follow-up Day 28 Reason Comments Vaginal Problem Reason Comments Outside [id number] Ordered Reason Comments Follow Up Reason Comments New Patient Specialty Diagnoses / Procedures Referred By Shelli t Referred To Contact Hematology Diagnoses History of pulmonary embolus (PE) Procedures CONSULT TO HEMATOLOGY OFFICE/OUTPATIENT NEW HIGH MDM 60 MINUTES Rangel Bonilla MD [address] [place] [address] Referral ID Status Reason Start Date Expiration Date V isits Requested Visits Authorized [id number] Closed PCP Requested Referral 04/15/2024 04/15/2025 1 1 Reason Comments Follow Up Reason Comments Orders Reason Comments Consult Dr. Suazo Urology Reason Comments Radiology US Specialty Diagnoses / Procedures Referred By Shelli davis Referred To Contact [facility] Diagnoses Abnormal mammogram of both breasts Procedures US BREAST LTD LEFT US BREAST UNI REAL TIME WITH IMAGE LIMITED Cornel Clark DO [address] [place] [place] [address] [facility] [address] [place] [address] Referral ID Status Reason Start Date Expiration Date V isits Requested Visits Authorized [id number] Closed Auto-Generate d Referral 06/10/2024 07/10/2025 1 1 Reason Comments Results Reason Comments Outside Imaging Reason Onset Date Comments Refill Request 06/28/2024 Reason Comments Consult Reason Comments Medication Problem Wants to dc eliquis Reason Comments Nausea Reason Comments Established Patient Follow up PE Reason Onset Date Comments Anticoagulation 07/25/2024 Reason Comments Anticoagulation Reason Comments Medication Question Anticoagulation Reason Comments Medication Question Reason Onset Date Comments Refill Request 08/12/2024 Reason Comments Radiology XR Reason Comments medication/INR question Reason Comments Mammogram Result Call Back Reason Comments Radiology US Specialty Diagnoses / Procedures Referred By Shelli t Referred To Contact [facility] Diagnoses Abnormal mammogram of both breasts Procedures US BREAST LTD LEFT US BREAST UNI REAL TIME WITH IMAGE LIMITED Cornel Clark DO [address] [place] [address] Phone: tel: fax: [facility] [address] [place] [address] Referral ID Status Reason Start Date Expiration Date V isits Requested Visits Authorized [id number] Closed Auto-Generate d Referral 12/13/2024 07/12/2025 1 1 Reason Comments Follow Up Right arm wound Reason Comments Established Patient Reason Comments Nasal Congestion drainage, fever and cough x last night Reason Onset Date Comments Results 01/16/2025 Reason Comments Medication Request Reason Comments Established Patient Covid follow up. Dis continued anticoagulation s/p PE Pulmonary Embolism Chronic Respiratory Failure Reason Onset Date Comments Anticoagulation 02/14/2025 Reason Comments Rash Rash on left side of tailbone x 2 days Reason Comments Anticoagulation - Initial Consult Reason Comments Patient Question Patient Update Care Teams (unrecognized sec tion and content) Documentation Consultant Relationship Specialty Start Date End Date Rangel Bonilla MD [address] [place], [place] [id number] PCP - General Family Practice 07/20/16 Documentation Consultant Relationship Specialty Start Date End Date Rangel Bonilla MD [address] [place], [place] [id number] [phone] PCP - General Family Practice 07/20/16 Documentation Consultant Relationship Specialty Start Date End Date Rangel Bonilla MD [address] [place], [place] [id number] [phone] PCP - General Family Medicine 07/20/16 Documentation Consultant Relationship Specialty Start Date End Date Rangel Bonilla MD [address] [place], [place] [id number] PCP - General Family Medicine 07/20/16 Documentation Consultant Relationship Specialty Start Date End Date Rangel Bonilla MD [address] [place] [address] PCP - General Family Medicine 07/20/16 Documentation Consultant Relationship Specialty Start Date End Date Rangel Bonilla MD [address] [place] [address] PCP - General Family Medicine 07/20/16 Documentation Consultant Relationship Specialty Start Date End Date Rangel Bonilla MD [address] [place] [address] PCP - General Family Medicine 07/20/16 Team Status: Active Member Role Status Dates Dr. Rangel Bonilla MD Family Provider Active Dr. Rangel Bonilla MD Primary Care Provider Active Team Status: Inactive Member Role Status Dates Dr. Rangel Bonilla MD Primary Care Provider Active Dr. Alexx Rapp , Emergency Provider Active Team Status: Inactive Member Role Status Dates Dr. Rangel Bonilla MD Primary Care Provider Active Dr. Leonardo Haq , DO Emergency Provider Active Documentation Consultant Relationship Specialty Start Date End Date Rangel Bonilla MD [address] [place] [address] PCP - General Family Medicine 07/20/16 Documentation Consultant Relationship Specialty Start Date End Date Rangel Bonilla MD [address] [place] [address] PCP - General Family Medicine 07/20/16 Documentation Consultant Relationship Specialty Start Date End Date Rangel Bonilla MD [address] [place] [address] PCP - General Family Medicine 07/20/16 Documentation Consultant Relationship Specialty Start Date End Date Rangel Bonilla MD [address] [place] [address] PCP - General Family Medicine 07/20/16 Documentation Consultant Relationship Specialty Start Date End Date Rangel Bonilla MD [address] [place] [address] PCP - General Family Medicine 07/20/16 Documentation Consultant Relationship Specialty Start Date End Date Rangel Bonilla MD [address] [place] [address] PCP - General Family Medicine 07/20/16 Documentation Consultant Relationship Specialty Start Date End Date Rangel Bonilla MD [address] [place] [address] PCP - General Family Medicine 07/20/16 Documentation Consultant Relationship Specialty Start Date End Date Rangel Bonilla MD [address] [place] [address] PCP - General Family Medicine 07/20/16 Documentation Consultant Relationship Specialty Start Date End Date Rangel Bonilla MD [address] [place] [address] PCP - General Family Medicine 07/20/16 Team Status: Active Member Role Status Dates Dr. Rangel Bonilla MD Primary Care Provider Active Dr. Sonny Etienne MD Attending Provider, Referr ing Provider Active Team Status: Inactive Member Role Status Dates Dr. Rangel Bonilla MD Primary Care Provider Active Dr. Sammy Brewer DO Emergency Provider Active Team Status: Inactive Member Role Status Dates Dr. Rangel Bonilla MD Primary Care Provider Active Dr. Sonny Etienne MD Attending Provider, Referr ing Provider Active Team Status: Inactive Member Role Status Dates Dr. Rangel Bonilla MD Primary Care Provider Active Dr. Sammy Brewer DO Attending Provider, Emergency Provider Active Documentation Consultant Relationship Specialty Start Date End Date Rangel Bonilla MD [address] [place] [address] PCP - General Family Medicine 07/20/16 Documentation Consultant Relationship Specialty Start Date End Date Rangel Bonilla MD [address] [place] [address] PCP - General Family Medicine 07/20/16 Documentation Consultant Relationship Specialty Start Date End Date Rangel Bonilla MD [address] [place] [address] PCP - General Family Medicine 07/20/16 Documentation Consultant Relationship Specialty Start Date End Date Rangel Bonilla MD [address] [place] [address] PCP - General Family Medicine 07/20/16 Lupe Grijalva, RN [address] [place] [address] Primary Care Manager Of Internal Audit 04/10/24 Documentation Consultant Relationship Specialty Start Date End Date Rangel Bonilla MD [address] [place] [address] PCP - General Family Medicine 07/20/16 Lupe Grijalva, RN [address] [place] [address] Primary Care Manager Of Internal Audit 04/10/24 Documentation Consultant Relationship Specialty Start Date End Date Rangel Bonilla MD [address] [place] [address] PCP - General Family Medicine 07/20/16 Lupe Grijalva, RN [address] [place] [address] Primary Care Manager Of Internal Audit 04/10/24 Documentation Consultant Relationship Specialty Start Date End Date Rangel Bonilla MD [address] [place] [address] PCP - General Family Medicine 07/20/16 Lupe Grijalva, RN [address] [facility] [place] [place] [address] Primary Care Manager Of Internal Audit 04/10/24 Documentation Consultant Relationship Specialty Start Date End Date Rangel Bonilla MD [address] [place] [address] PCP - General Family Medicine 07/20/16 Lupe Grijalva, RN [address] [facility] [place] [place] [address] Primary Care Manager Of Internal Audit 04/10/24 Documentation Consultant Relationship Specialty Start Date End Date Rangel Bonilla MD [address] [place] [address] PCP - General Family Medicine 07/20/16 Lupe Grijalva, RN [address] [facility] [place] [address] Primary Care Manager Of Internal Audit 04/10/24 Documentation Consultant Relationship Specialty Start Date End Date Rangel Bonilla MD [address] [place] [address] PCP - General Family Medicine 07/20/16 Lupe Grijalva, RN [address] [facility] [place] [address] Primary Care Manager Of Internal Audit 04/10/24 Documentation Consultant Relationship Specialty Start Date End Date Rangel Bonilla MD [address] [place] [address] PCP - General Family Medicine 07/20/16 Lupe Grijalva, RN [address] [facility] [place] [place] [address] Primary Care Manager Of Internal Audit 04/10/24 Documentation Consultant Relationship Specialty Start Date End Date Rangel Bonilla MD [address] [place] [address] PCP - General Family Medicine 07/20/16 Lupe Grijalva, RN [address] [place] [address] Primary Care Manager Of Internal Audit 04/10/24 Documentation Consultant Relationship Specialty Start Date End Date Rangel Bonilla MD [address] [place] [address] PCP - General Family Medicine 07/20/16 Lupe Grijalva, ALONDRA [address] [place], [place] [id number] [phone] Primary Care Manager Of Internal Audit 04/10/24 Documentation Consultant Relationship Specialty Start Date End Date Rangel Bonilla MD [address] [place] [address] PCP - General Family Medicine 07/20/16 Documentation Consultant Relationship Specialty Start Date End Date Rangel Bonilla MD [address] [place] [address] PCP - General Family Medicine 07/20/16 Documentation Consultant Relationship Specialty Start Date End Date Rangel Bonilla MD [address] [place] [address] PCP - General Family Medicine 07/20/16 Documentation Consultant Relationship Specialty Start Date End Date Rangel Bonilla MD [address] [place] [address] PCP - General Family Medicine 07/20/16 Documentation Consultant Relationship Specialty Start Date End Date Rangel Bonilla MD [address] [place] [address] PCP - General Family Medicine 07/20/16 Documentation Consultant Relationship Specialty Start Date End Date Rangel Bonilla MD [address] [place] [address] PCP - General Family Medicine 07/20/16 Documentation Consultant Relationship Specialty Start Date End Date Rangel Bonilla MD [address] [place] [address] PCP - General Family Medicine 07/20/16 Documentation Consultant Relationship Specialty Start Date End Date Rangel Bonilla MD [address] [place] [address] PCP - General Family Medicine 07/20/16 Documentation Consultant Relationship Specialty Start Date End Date Rangel Bonilla MD [address] [place] [address] PCP - General Family Medicine 07/20/16 Documentation Consultant Relationship Specialty Start Date End Date Rangel Bonilla MD [address] [place] [address] PCP - General Family Medicine 07/20/16 Documentation Consultant Relationship Specialty Start Date End Date Rangel Bonilla MD [address] [place] [address] PCP - General Family Medicine 07/20/16 Documentation Consultant Relationship Specialty Start Date End Date Rangel Bonilla MD [address] [place] [address] PCP - General Family Medicine 07/20/16 Documentation Consultant Relationship Specialty Start Date End Date Rangel Bonilla MD [address] [place] [address] PCP - General Family Medicine 07/20/16 Documentation Consultant Relationship Specialty Start Date End Date Rangel Bonilla MD [address] [place] [address] PCP - General Family Medicine 07/20/16 Documentation Consultant Relationship Specialty Start Date End Date Rangel Bonilla MD [address] [place] [address] PCP - General Family Medicine 07/20/16 Documentation Consultant Relationship Specialty Start Date End Date Rangel Bonilla MD [address] [place] [address] PCP - General Family Medicine 07/20/16 Documentation Consultant Relationship Specialty Start Date End Date Rangel Bonilla MD [address] [place] [address] PCP - General Family Medicine 07/20/16 Documentation Consultant Relationship Specialty Start Date End Date Rangel Bonilla MD [address] [place] [address] PCP - General Family Medicine 07/20/16 Documentation Consultant Relationship Specialty Start Date End Date Rangel Bonilla MD [address] [place] [address] PCP - General Family Medicine 07/20/16 Alan Vigil APRN.CNP [address] [place], [place] [address] [facility] 10/12/24 Rayna Martinez PA-C [address] [place] [address] [facility] 10/12/24 Documentation Consultant Relationship Specialty Start Date End Date Rangel Bonilla MD [address] [place] [address] PCP - General Family Medicine 07/20/16 Alan Vigil APRN.[employer] [address] [place] [address] [facility] 10/12/24 Rayna Martinez PA-C [address] [place] [address] [facility] 10/12/24 Documentation Consultant Relationship Specialty Start Date End Date Rangel Bonilla MD [address] [place] [address] PCP - General Family Medicine 07/20/16 Alan Vigil APRN.[employer] [address] [place] [address] [facility] 10/12/24 Rayna Martinez PA-C [address] [place] [address] [facility] 10/12/24 Documentation Consultant Relationship Specialty Start Date End Date Rangel Bonilla MD [address] [place] [address] PCP - General Family Medicine 07/20/16 Alan Vigil APRN.[employer] [address] [place] [address] [facility] 10/12/24 Rayna Martinez PA-C [address] [place] [address] [facility] 10/12/24 Documentation Consultant Relationship Specialty Start Date End Date Rangel Bonilla MD [address] [place] [address] PCP - General Family Medicine 07/20/16 Alan Vigil APRN.[employer] [address] [place] [address] [facility] 10/12/24 Rayna Martinez PA-C [address] [place] [address] [facility] 10/12/24 Documentation Consultant Relationship Specialty Start Date End Date Rangel Bonilla MD [address] [place] [address] PCP - General Family Medicine 07/20/16 Alan Vigil APRN.[employer] [address] [place] [address] [facility] 10/12/24 Rayna Martinez PA-C [address] [place] [address] [facility] 10/12/24 Documentation Consultant Relationship Specialty Start Date End Date Rangel Bonilla MD [address] [place] [address] PCP - General Family Medicine 07/20/16 Alan Vigil APRN.[employer] [address] [place] [address] [facility] 10/12/24 Rayna Martinez PA-C [address] [place] [address] [facility] 10/12/24 Documentation Consultant Relationship Specialty Start Date End Date Rangel Bonilla MD [address] [place] [address] PCP - General Family Medicine 07/20/16 Alan Vigil APRN.[employer] [address] [place] [address] [facility] 10/12/24 Rayna Martinez PA-C [address] [place] [address] [facility]/12/[facility] Documentation Consultant Relationship Specialty Start Date End Date Rangel Bonilla MD [address] [place] [address] PCP - General Family Medicine 07/20/16 Alan Vigil APRN.[employer] [address] [place] [address] [facility] 10/12/24 Rayna Martinez PA-C [address] [place] [address] [facility] 10/12/24 Documentation Consultant Relationship Specialty Start Date End Date Rangel Bonilla MD [address] [place] [address] PCP - General Family Medicine 02/10/25 Alan Vigil APRN.[employer] [address] [place] [address] [facility] 10/12/24 Rayna Martinez PA-C [address] [place] [address] [facility] 10/12/24 Documentation Consultant Relationship Specialty Start Date End Date Rangel Bonilla MD [address] [place] [address] PCP - General Family Medicine 02/10/25 Alan Vigil APRN.[employer] [address] [place] [address] [facility] 10/12/24 Rayna Martinez PA-C [facility] [place] [address] [facility] 10/12/24 Documentation Consultant Relationship Specialty Start Date End Date Rangel Bonilla MD [address] [place] [address] PCP - General Family Medicine 02/10/25 Alan Vigil APRN.[employer] [facility] [place] [address] [facility] 10/12/24 Rayna Martinez PA-C [address] [place] [address] [facility] 10/12/24 Documentation Consultant Relationship Specialty Start Date End Date Rangel Bonilla MD [address] [place], [place] [address] PCP - General Family Medicine 02/10/25 Alan Vigil APRN.[employer] [address] [place], [place] [address] [facility] 10/12/24 Rayna Martinez PA-C [address] [place] [address] [facility] 10/12/24 Documentation Consultant Relationship Specialty Start Date End Date Rangel Bonilla MD [address] [place] [address] PCP - General Family Medicine 02/10/25 Rayna Martinez PA-C [address] [place] [address] [facility] 10/12/24 Documentation Consultant Relationship Specialty Start Date End Date Rangel Bonilla MD [address] [place], [place] [address] PCP - General Family Medicine 02/10/25 Rayna Martinez PA-C [address] [place] [address] [facility] 10/12/24 Documentation Consultant Relationship Specialty Start Date End Date Rangel Bonilla MD [address] [place] [address] PCP - General Family Medicine 02/10/25 Alan Vigil APRN.[employer] [address] [place] [address] [facility] 04/07/25 Rayna Martinez PA-C [address] [place] [address] [facility] 04/07/25 INFORMATION SOURCE (unrecogn ized section and content) DATE CREATED AUTHOR 07/12/2022 [facility] DATE CREATED AUTHOR AUTHOR'S ORGANIZ ATION 12/24/2022 [facility] DATE CREATED AUTHOR AUTHOR'S ORGANIZ ATION 12/20/2024 [facility] DATE CREATED AUTHOR AUTHOR'S ORGANIZ ATION 01/16/2025 [facility] DATE CREATED AUTHOR AUTHOR'S ORGANIZ ATION 04/11/2025 [facility] FOR RECORDS PERTAINING TO PATIENTS WHO ARE [...] BE BASED ON THE PRIMARY CLINICAL RECORDS. [facility] [employer] provides no warranty or guarantee of the accuracy or completeness of information in this document.
[2025-04-13 13:02] LABS: International Normalized Ratio 1.9
[2025-04-13 13:05] LABS: Anion Gap 12 (5-15); BUN 19 mg/dL (4-19); BUN/Creat Ratio 24.5 RATIO (10-20); Calcium,Total 9.3 mg/dL (7.6-11.0); Carbon Dioxide 22.3 mmol/L (21.0-32.0); Chloride 107 mmol/L (98-108); Creatinine, Serum 0.79 mg/dL (0.70-1.20); EST Glomerular Filtration Rate 75 (>60); Estimated Creatinine Clearance 45.62 ml/min (50-250); Glucose 116 mg/dL (70-99); Potassium 4.1 mmol/L (3.3-5.1); Sodium Level 141 mmol/L (133-145)
[2025-04-13 13:15] LABS: Bedside Glucose 108 mg/dL (74-106)
[2025-04-13 13:41] VITALS: BP 180/86; BP 185/109; BP 195/92; PULSE 85; PULSE 86; PULSE 93
--- NOTE | 2025-04-13 13:41 | CT_ITS ---
PROCEDURE: BRAIN/HEAD WITHOUT CONTRAST 04/13/2025 REASON FOR EXAM: DIZZINESS, ON COUMADIN, HX OF SUBDURAL hematoma 20 years ago TECHNIQUE: Head CT without intravenous contrast. Coronal and Sagittal reconstruction series were provided. One or more dose reduction techniques were used (e.g., Automated exposure control, adjustment of the mA and/or kV according to patient size, use of iterative reconstruction technique. RADIATION DOSE SUMMARY: CTDlvol: 44.99 mGy DLP: 796.11 mGycm COMPARISON: None. FINDINGS: Brain: No intra-axial or extra-axial hemorrhage. No mass, mass effect or midline shift. Periventricular and deep white matter hypodensity indicating chronic small-vessel ischemic disease. Ventricles and sulci mildly increased suggesting involution. Sinuses/Mastoids: Clear. Bones: Right craniotomy defects consistent with history of subdural hematoma and surgical therapy is implied. CT/Brain/Head without Contrast IMPRESSION: No acute process detected. Reading Location[facility]
--- NOTE | 2025-04-13 13:42 | EX.ED.DYSGE1 ---
HPI History of Present Illness Chief Complaint: Dizziness Detail of Chief Complaint: Dizziness Informant: patient Narrative Narrative: Patient presents to the emergency department with complaint of dizziness that started this morning when she rolled over in bed. She states that she fell like she was falling. Symptoms did not last long and she was actually able to get up and walk to the bathroom without any difficulty. At another point she had bent over and when she stood up she again felt lightheaded and somewhat off balance like she might fall. She spoke with her son who is a family practitioner and advised her to get evaluated. She has a remote history of subdural hematoma. 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 She denies urinary symptoms. She denies recent illness. She denies falls or head injuries. Currently she is not feeling dizzy at all. She does not describe vertiginous like symptoms. [facility] Medical History Post-menopausal Alcohol use History of steroid therapy Easy bruising PONV (postoperative nausea and vomiting) Non-smoker Cardiology follow-up encounter History of echocardiogram History of stress test Hypertension Hx of migraines UTI (urinary tract infection) DDD (degenerative disc disease), lumbar Spinal stenosis Chronic back pain Cystitis GERD (gastroesophageal reflux disease) Infection due to ESBL-producing Escherichia coli Essential (primary) hypertension Hyperlipidemia Home Medications ?Medication ?Instructions ?Recorded ?Last Taken ?Type ascorbic acid (vitamin C) 1,000 mg 1 cap PO QHS vitamin 04/07/22 Unknown History capsule,extended release simvastatin 10 mg tablet 10 mg PO DAILY cholesterol 11/08/23 04/04/24 History sumatriptan succinate 100 mg tablet 100 mg PO Q2H PRN migraine headache 11/08/23 Unknown History ondansetron 4 mg disintegrating 4 mg PO TID PRN nausea and 03/24/24 Unknown Rx tablet vomiting #21 tabs amitriptyline 25 mg tablet 25 mg PO QHS #30 tabs 11/08/24 Unknown Rx cephalexin 250 mg capsule 250 mg PO QHS 11/08/24 Unknown History d-mannose 500 mg capsule 2,000 mg PO DAILY 11/08/24 Unknown History prednisone 10 mg tablet 10 mg PO QDAY #30 tabs 11/08/24 Unknown Rx vitamins A,C,M-hwhq-cjfviz 2,148 2 tab PO BID 11/08/24 Unknown History mcg-113 mg-45 mg-17.4 mg tablet (PreserVision AREDS) esomeprazole magnesium 20 mg 20 mg PO DAILY reflux #30 caps 11/27/24 Unknown Rx capsule,delayed release famotidine 20 mg tablet 20 mg PO QHS reflux #60 tabs 02/11/25 Unknown Rx meclizine 25 mg tablet 25 mg PO TID PRN dizziness #14 tabs 04/13/25 Unknown Rx Allergy/AdvReac Type Severity Reaction Status Date / Time No Known Allergies Allergy Verified 04/13/25 12:19 Family History Mother Heart disease Father Heart disease Brother Heart disease CAD (coronary artery disease) Surgical History History of back surgery S/P subdural hematoma evacuation History of appendectomy History of laparoscopic cholecystectomy History of hysterectomy Social History household members: spouse housing: house Smoking Status: Never smoker ROS ROS ED Review of Systems ROS Unobtainable: other Constitutional Constitutional ED: Reports lethargy; Denies chills, fever(s), sweats or weight loss Eyes Eyes: Denies blurry vision, change in vision or diplopia ENT ENT ED: Denies rhinorrhea or sore throat Cardiovascular Cardiovascular: Denies chest pain, orthopnea or racing heartbeat Respiratory/Chest Respiratory/Chest: Denies cough, dyspnea, dyspnea on exertion, orthopnea or sputum Gastrointestinal Gastrointestinal: Denies abdominal pain, diarrhea, nausea or vomiting Genitourinary Genitourinary ED: Denies dysuria, hematuria or urinary frequency Musculoskeletal Musculoskeletal: Denies arthralgias, back pain, myalgias or neck pain Integumentary Denies abscess, Abrasions or rash Neurologic Neurologic: Reports other Details: Dizziness ; Denies headache(s) or weakness Psychiatric Psychiatric: Denies anxiety, depression or suicidal thoughts Endocrine Endocrinology: Denies polydipsia, polyphagia or polyuria Hematologic/Lymphatic Hematologic/Lymphatic: Denies easy bleeding, easy bruising or lymphadenopathy Allergic/Immunologic Allergic/Immunologic ED: Denies mouth swelling, tongue swelling or urticaria EXAM Physical Exam Const Vital Signs: 04/13/25 12:19 04/13/25 12:24 04/13/25 13:41 Temperature 97.9 F Temperature Source Oral Pulse Rate 106 H Pulse Rate [Lying] 86 Pulse Rate [Sitting (for 1 minute prior to obtaining)] 85 Pulse Rate [Standing (for 1 minute prior to obtaining)] 93 Respiratory Rate 16 Blood Pressure 169/91 H Blood Pressure [Lying] 185/109 H Blood Pressure [Sitting (for 1 minute prior to obtaining)] 195/92 H Blood Pressure [Standing (for 1 minute prior to obtaining)] 180/86 H Blood Pressure Mean 117 Blood Pressure Mean [Lying] 134 Blood Pressure Mean [Sitting (for 1 minute prior to obtaining)] 126 Blood Pressure Mean [Standing (for 1 minute prior to obtaining)] 117 Pulse Ox 96 Oxygen Delivery Method Room Air Room Air 04/13/25 14:19 Temperature Temperature Source Pulse Rate Pulse Rate [Lying] Pulse Rate [Sitting (for 1 minute prior to obtaining)] Pulse Rate [Standing (for 1 minute prior to obtaining)] Respiratory Rate Blood Pressure 180/99 H Blood Pressure [Lying] Blood Pressure [Sitting (for 1 minute prior to obtaining)] Blood Pressure [Standing (for 1 minute prior to obtaining)] Blood Pressure Mean 126 Blood Pressure Mean [Lying] Blood Pressure Mean [Sitting (for 1 minute prior to obtaining)] Blood Pressure Mean [Standing (for 1 minute prior to obtaining)] Pulse Ox Oxygen Delivery Method Positive well nourished and well developed General Appearance ED: well developed and NAD HEENT Reports TM's clear and moist mucous membranes normocephalic and atraumatic; Negative for trauma or tenderness Tympanic Membrane ED: Yes TM's clear Eyes PERRL and EOMs intact bilaterally General Eye ED: Negative for pale conjunctiva or scleral icterus Neck no lymphadenopathy, supple and no JVD General: Negative for tenderness Chest Wall inspection of chest normal and palpation of chest normal Chest: Negative for tenderness Resp normal respiratory effort and clear to auscultation bilaterally Effort and Inspection: Negative for respiratory distress or pain with movement Auscultation: Negative for rhonchi, wheezes or diminished lung sounds Cardio regular rate, regular rhythm, S1 normal heart sound, S2 normal heart sound and no murmurs Peripheral Pulses: pulses 2+ throughout GI normal to inspection, nondistended, normoactive bowel sounds, soft to palpation, non-tender, non-distended and no masses Back/Spine no CVA tenderness and no thoracic nor lumbar tenderness Extremity normal to inspection General Extremety ED: Negative for edema General Extremity: Negative for edema Neuro oriented x3, CN's II-XII intact bilaterally, no sensory deficits noted and gait normal Neuro Narrative: Finger-nose and heel rm testing within normal limits, negative Romberg, negative , Fundi benign. Hallpike maneuver negative for nystagmus. Sensorium / Orientation: awake, alert, oriented to person, oriented to place and oriented to time Motor Exam: strength 5/5 throughout and strength abnormal Psych mental status grossly normal Skin no rashes or lesions noted and no wounds MDM MDM MDM Narrative Medical decision making narrative: Patient presents with lightheadedness start today initially in her sleep when she rolled over in bed. Seems to be intermittent and seems to be associated with head position change. Clinically did not appreciate any nystagmus initially with Hallpike maneuver. After her workup in the emergency department I did turn her head to the right to look interiors and she became slightly symptomatic. CT scan of the brain without contrast was unremarkable. CBC with differential obtained showed a white count 7.7 with hemoglobin 15.8 and platelet count of 234. Chemistries were unremarkable. INR was 1.9. Urinalysis was normal. I did give patient Antivert 25 mg p.o. Discussed results with her as at this point I suspect likely benign positional vertigo. Advised to follow-up with ENT within next 3 to 5 days. Patient also noted to be hypertensive in the emergency department and states that she is always hypertensive when she goes to see her doctor. He always has her check her blood pressure a week in advance of the visit and typically it is normal when she checks it at home. Lab Data Attestation: I reviewed the patient's lab results. Labs: Laboratory Results - last 24 hr 04/13/25 04/13/25 04/13/25 12:35 12:48 14:00 WBC 7.7 RBC 5.09 Hgb 15.8 H Hct 47.2 H MCV 92.7 MCH 31.0 MCHC 33.5 RDW Std Deviation 45.5 H RDW Coeff of Cecilia 13.4 Plt Count 234 MPV 10.8 Immature Gran % (Auto) 0.100 Neut % (Auto) 63.6 Lymph % (Auto) 29.1 Benson % (Auto) 5.4 Eos % (Auto) 1.3 Baso % (Auto) 0.5 Absolute Neuts (auto) 4.9 Absolute Lymphs (auto) 2.25 Nucleated RBC % 0 PT 22.0 H INR 1.9 APTT 28.0 Sodium 141 Potassium 4.1 Chloride 107 Carbon Dioxide 22.3 Anion Gap 12 BUN 19 Creatinine 0.79 Estim Creat Clear Calc 45.62 L Est GFR (MDRD) Non-Af 75 BUN/Creatinine Ratio 24.5 H Glucose 116 H Calcium 9.3 Urine Color Yellow Urine Clarity Sl. Cloudy Urine pH 7.0 Ur Specific [place] 1.010 Urine Protein Negative Urine Glucose (UA) Normal Urine Ketones Negative Urine Occult Blood 10 H Urine Nitrite Negative Urine Bilirubin Negative Urine Urobilinogen Normal Ur Leukocyte Esterase Negative Urine RBC 0-5 SEEN Urine WBC 0 SEEN Ur Squamous Epith Cells 10-25 SEEN Urine Bacteria 1+ Urine Mucus 0 SEEN Urine Yeast 2+ POC Glucose 108 H Radiography Diagnostic Testing: Clinical Impression(s) from Imaging Studies Brain CT 04/13/25 13:41 IMPRESSION: No acute process detected. Reading Location[facility] EKG Initial EKG: Attestation: I personally reviewed and interpreted this EKG as follows: Comments: Sinus rhythm with rate of [address] changes and occasional PACs Discharge Plan Triage Chief Complaint: Dizziness ED Provider: Sen Olivas Dx/Rx/DC Orders Clinical Impression: Benign paroxysmal positional vertigo Instructions: ED BPV Vertigo Prescriptions: New meclizine 25 mg tablet 25 mg PO TID PRN (Reason: dizziness) Qty: 14 0RF No Action cephalexin 250 mg capsule 250 mg PO QHS PreserVision AREDS 2,148 mcg-113 mg-45 mg-17.4mg tablet 2 tab PO BID Rx Instructions: administer with AM and PM meals d-mannose 500 mg capsule 2,000 mg PO DAILY prednisone 10 mg tablet 10 mg PO QDAY Qty: 30 1RF amitriptyline 25 mg tablet 25 mg PO QHS Qty: 30 0RF ascorbic acid (vitamin C) 1,000 mg Capsule, Extended Release 1 cap PO QHS sumatriptan succinate 100 mg tablet 100 mg PO Q2H PRN (Reason: migraine headache) simvastatin 10 mg tablet 10 mg PO DAILY ondansetron 4 mg tablet,disintegrating 4 mg PO TID PRN (Reason: nausea and vomiting) Qty: 21 0RF esomeprazole magnesium 20 mg capsule,delayed release(DR/EC) 20 mg PO DAILY Qty: 30 5RF famotidine 20 mg tablet 20 mg PO QHS Qty: 60 3RF Primary Care Provider: Rangel Santos Referrals: Rangel Santos MD [Primary Care Provider] - Abebe Brown MD [Med Staff - Active Staff] - 3-5 Days Print Language: Pakistani Disposition Disposition: Home, Self Care
[2025-04-13 14:06] LABS: Mucous, Urine 0 SEEN /hpf (<or=2+); White Blood Cells 0 SEEN /hpf (0-5)
[2025-04-13 14:11] LABS: Color, Urine Yellow (Yellow); Glucose, Dipstick Normal (Normal); Ketone-Dipstick Negative (Negative); Leukocyte Esterase-Dipstick Negative /ul (Negative); Nitrite-Dipstick Negative (Negative); Occult Blood-Urine 10 /ul (Negative); Protein-Dipstick Negative (Negative); Urine Bilirubin Dipstick Negative (Negative); Urine Clarity Sl. Cloudy (Clear); Urine Urobilinogen Normal (Normal)
[2025-04-13 14:19] VITALS: BP 180/99
[2025-04-13 14:36] LABS: Bacteria 1+ /hpf (None Seen); Red Blood Cells-Urine 0-5 SEEN /hpf (0-5); Squamous Epithelial Cells - UA 10-25 SEEN /hpf (5-10); Yeast-Urine 2+ /hpf (None Seen)
[2025-04-13] MEDS: Meclizine HCl 25 MG Tablet PO (15:46)
[2025-04-13 15:54] VITALS: BP 173/70; PULSE 81; RESP 22; TEMP 36.7; O2SAT 97
== END 2025-04-13 16:01 | disposition home or self-care (01) ==
PROVIDERS: Emergency Provider Emergency Medicine; PCP Family Medicine; Visit Provider Emergency Medicine
DX: H81.10 Benign paroxysmal vertigo, unspecified ear (principal); Z79.01 Long term (current) use of anticoagulants; I10 Essential (primary) hypertension; Z86.711 Personal history of pulmonary embolism; K21.9 Gastro-esophageal reflux disease without esophagitis
CPT/HCPCS: 70450; 80048; 81001; 82962; 85025; 85610; 85730; 93005; 99285; A4216

== ENCOUNTER 2025-07-22 11:36 | Emergency (ER) | payer MEDICARE, OTHER, SELFPAY ==
[2025-07-22 11:37] VITALS: BP 157/76; PULSE 96; RESP 18; TEMP 36.7; O2SAT 98; BMI 24.7
--- NOTE | 2025-07-22 11:48 | EKG12_ITS ---
Test Reason : Blood Pressure : */* mmHG Vent. Rate : 86 BPM Atrial Rate : 86 BPM P-R Int : 162 ms QRS Dur : 76 ms QT Int : 356 ms P-R-T Axes : 37 -11 49 degrees QTcB Int : 426 ms Sinus rhythm with marked sinus arrhythmia Otherwise normal ECG Confirmed by DRAGAN LOREDO, DIANA ([id number]), editorial project manager CHRISTIAN MADERA ([id number]) on 07/23/2025 9:39:06 AM Referred By: Confirmed By: DIANA ARCHIBALD MD
--- NOTE | 2025-07-22 11:50 | EX.ED.DYSGE1 ---
HPI History of Present Illness Chief Complaint: General Illness Narrative Narrative: Patient is a 79-year-old female with a past medical history of GERD, hypertension, hyperlipidemia, PE on warfarin who presents to the emergency department with a chief complaint of not feeling well for the last 1 to 2 weeks. States that off-and-on for the past week she has felt feverish. States that last week she was feeling well saw her doctor they did a chest x-ray that she states was normal however they put her on amoxicillin she states that she took this for 2 days and she felt worse therefore she discontinued this. She notes that today she went for a walk and felt lightheaded and like she might pass out therefore she came here to be further evaluated. Patient states that she will check her temperature on a regular basis when she is feeling feverish and notes that this is normal. Patient denies any sick contacts. 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-producing Escherichia coli Essential (primary) hypertension Hyperlipidemia Home Medications ?Medication ?Instructions ?Recorded ?Last Taken ?Type ascorbic acid (vitamin C) 1,000 mg 1 cap PO QHS vitamin 04/07/22 Unknown History capsule,extended release simvastatin 10 mg tablet 10 mg PO DAILY cholesterol 11/08/23 04/04/24 History sumatriptan succinate 100 mg tablet 100 mg PO Q2H PRN migraine headache 11/08/23 Unknown History ondansetron 4 mg disintegrating 4 mg PO TID PRN nausea and 03/24/24 Unknown Rx tablet vomiting #21 tabs amitriptyline 25 mg tablet 25 mg PO QHS #30 tabs 11/08/24 Unknown Rx cephalexin 250 mg capsule 250 mg PO QHS 11/08/24 Unknown History d-mannose 500 mg capsule 2,000 mg PO DAILY 11/08/24 Unknown History cholecalciferol (vitamin D3) 25 25 mcg PO QDAY 06/06/25 Unknown History mcg (1,000 unit) capsule vitamins A,C,M-pjsy-akzsku 4,296 1 cap PO BID 06/06/25 Unknown History mcg-226 mg-90 mg capsule (PreserVision AREDS) warfarin 5 mg tablet 5 mg PO QDAY 06/06/25 Unknown History ondansetron 4 mg disintegrating 4 mg PO Q6H PRN nausea and 07/22/25 Unknown Rx tablet vomiting #20 tabs Allergy/AdvReac Type Severity Reaction Status Date / Time No Known Allergies Allergy Verified 07/22/25 11:37 Family History Mother Heart disease Father Heart disease Brother Heart disease CAD (coronary artery disease) Surgical History History of back surgery S/P subdural hematoma evacuation History of appendectomy History of laparoscopic cholecystectomy History of hysterectomy Social History household members: spouse housing: house Smoking Status: Never smoker ROS ROS ED ROS Narrative Constitutional: Complains of the feeling of feverish and lightheadedness denies any dizziness, Eyes: Denies double vision blurry vision Cardiovascular: Denies chest pain Respiratory: Denies shortness of breath Abdomen: Complains of nausea denies abdominal pain vomiting diarrhea : Denies urinary symptoms Neurological: Denies numbness, weakness, tingling Musculoskeletal: Denies back pain Skin: Denies any rashes or lesions EXAM Physical Exam Narrative Exam Narrative: General: Patient was lying in bed rest comfortably did not appear to be in acute distress Head: Atraumatic, normocephalic Eyes: PERRL bilaterally, EOMI bilaterally, no conjunctival injection noted Neck: Soft, supple, trachea midline Cardiovascular: Regular rate and rhythm Respiratory: Clear to auscultation bilaterally Abdomen: Soft, nondistended, no tenderness to palpation Extremities: +5/5 strength noted in the bilateral upper and lower extremities, radial pulses +2/4 in the bilateral extremities Neurological: Patient following commands knew that she was at [facility] the year is 2024 Skin: Warm, dry, intact no rashes or lesions noted Const Vital Signs: 07/22/25 11:37 07/22/25 12:17 07/22/25 12:17 Temperature 98.1 F Temperature Source Oral Pulse Rate 96 Respiratory Rate 18 Respiratory Effort Normal Non-Labored Respiratory Pattern Normal Blood Pressure 157/76 H Blood Pressure Mean 103 Pulse Ox 98 95 Oxygen Delivery Method Room Air Room Air 07/22/25 12:22 07/22/25 13:00 Temperature 98.1 F 98.4 F Temperature Source Oral Oral Pulse Rate 96 88 Respiratory Rate 18 14 Respiratory Effort Respiratory Pattern Blood Pressure 157/76 H 156/120 H Blood Pressure Mean 103 132 Pulse Ox 98 98 Oxygen Delivery Method Room Air Room Air MDM MDM MDM Narrative Medical decision making narrative: Patient is a 79-year-old female who presented to the emergency department chief complaint of generalized not feeling well, lightheadedness. On the differential diagnose includes but to ACS, pneumonia, pneumothorax, electrolyte abnormality. Once workup is obtained reviewed she will be reevaluated. Wells' Criteria for Pulmonary Embolism from [employer] on 07/22/2025 All calculations should be rechecked by clinician prior to use RESULT SUMMARY: 0.0 points Low risk group: 1.3% chance of PE in an ED population. Another study assigned scores <= as ?PE Unlikely? and had a 3% incidence of PE. patient? Consider YEARS to avoid unecessary radiation! INPUTS: Clinical signs and symptoms of DVT ?> 0 = No PE is #1 diagnosis OR equally likely ?> 0 = No Heart rate >100 ?> 0 = No Immobilization at least 3 days OR surgery in the previous 4 weeks ?> 0 = No Previous, objectively diagnosed PE or DVT ?> 0 = No Hemoptysis ?> 0 = No Malignancy w/ treatment within 6 months or palliative ?> 0 = No Patient CBC was reviewed which showed a white blood count of 6.8, he was 13.7, platelet count 192. Patient INR is 1.9, PT of 22.5. Patient sodium is 140, potassium normal 3.9, creatinine 0.85. Patient troponin was 12 with a delta troponin of 9. Patient EKG showed sinus rhythm with a rate of 86 bpm this was compared to previous EKG from her April 13, 2025 and was largely unchanged at that point in time. Patient proBNP normal at 67, TSH normal at 0.98. Patient's son brought up the concern for potential UTI therefore urinalysis was added on and this was reviewed which did not show any evidence of infection. Patient's chest x-ray reviewed by myself by radiology which showed no acute cardiopulmonary processes. Patient ambulated well here in the emergency department no hypoxia no tachycardia and felt well. She was advised to keep a close eye in her blood pressure and follow-up with her primary care physician outpatient setting. She was advised that she should obtain a stress test since it has been a significant time since having 1 of these. She was advised to return with worsening symptoms or any concerns. All question concerns answered she was discharged home in stable condition. Significant other bedside also agreeable this plan. Lab Data Labs: Laboratory Results - last 24 hr 07/22/25 07/22/25 07/22/25 12:20 12:20 12:40 WBC Cancelled 6.8 Corrected WBC Cancelled RBC Cancelled 4.29 Hgb Cancelled 13.7 Hct Cancelled 41.5 MCV Cancelled 96.7 MCH Cancelled 31.9 MCHC Cancelled 33.0 RDW Std Deviation Cancelled 42.8 RDW Coeff of Cecilia Cancelled 12.1 Plt Count Cancelled 192 MPV Cancelled 10.1 Immature Gran % (Auto) Cancelled 0.300 Neut % (Auto) Cancelled 71.1 H Lymph % (Auto) Cancelled 20.9 [place] % (Auto) Cancelled 6.4 Eos % (Auto) Cancelled 0.7 Baso % (Auto) Cancelled 0.6 Absolute Neuts (auto) Cancelled 4.8 Absolute Lymphs (auto) Cancelled 1.41 Total Counted Cancelled Neutrophils % (Manual) Cancelled Band Neutrophils % Cancelled Lymphocytes % (Manual) Cancelled Monocytes % (Manual) Cancelled Eosinophils % (Manual) Cancelled Basophils % (Manual) Cancelled Metamyelocytes % Cancelled Myelocytes % Cancelled Promyelocytes % Cancelled Blast Cells % Cancelled Plasma Cell % (Manual) Cancelled Other Cells % Cancelled Nucleated RBC % Cancelled 0 Nucleated RBCs/100 WBC Cancelled Differential Comment Cancelled Diff Path Review Cancelled Hypersegmented Neuts Cancelled Atypical Lymphocytes Cancelled Reactive Lymphocytes Cancelled Smudge Cells Cancelled Toxic Granulation Cancelled Toxic Vacuolation Cancelled Dohle Bodies Cancelled Mikel Rods Cancelled Platelet Estimate Cancelled Plt Morphology Comment Cancelled RBC Morphology Cancelled Cancelled Polychromasia Cancelled Hypochromasia Cancelled Basophilic Stippling Cancelled Anisocytosis Cancelled Microcytosis Cancelled Macrocytosis Cancelled Spherocytes Cancelled Sickle Cells Cancelled Target Cells Cancelled Tear Drop Cells Cancelled Ovalocytes Cancelled Stomatocytes Cancelled [place] Bodies Cancelled Mireya Cells Cancelled Bite Cells Cancelled Crenated Cell Cancelled Acanthocytes (Spur) Cancelled Rouleaux Cancelled Schistocytes Cancelled PT 22.5 H INR 1.9 APTT 28.0 Sodium 140 Potassium 3.9 Chloride 107 Carbon Dioxide 21.6 Anion Gap 11 BUN 17 Creatinine 0.85 Estim Creat Clear Calc 46.58 L Est GFR (MDRD) Non-Af 69 BUN/Creatinine Ratio 19.8 Glucose 108 H Calcium 9.0 Magnesium 2.1 Troponin T High Sens 12 Troponin T Hi Sens 2 Hr NT pro BNP II 67 TSH 0.988 Urine Color Urine Clarity Urine pH Ur Specific [place] Urine Protein Urine Glucose (UA) Urine Ketones Urine Occult Blood Urine Nitrite Urine Bilirubin Urine Urobilinogen Ur Leukocyte Esterase Urine RBC Urine WBC Ur Squamous Epith Cells Urine Bacteria Urine Mucus Urine Yeast 07/22/25 07/22/25 13:43 14:07 WBC Corrected WBC RBC Hgb Hct MCV MCH MCHC RDW Std Deviation RDW Coeff of Cecilia Plt Count MPV Immature Gran % (Auto) Neut % (Auto) Lymph % (Auto) [place] % (Auto) Eos % (Auto) Baso % (Auto) Absolute Neuts (auto) Absolute Lymphs (auto) Total Counted Neutrophils % (Manual) Band Neutrophils % Lymphocytes % (Manual) Monocytes % (Manual) Eosinophils % (Manual) Basophils % (Manual) Metamyelocytes % Myelocytes % Promyelocytes % Blast Cells % Plasma Cell % (Manual) Other Cells % Nucleated RBC % Nucleated RBCs/100 WBC Differential Comment Diff Path Review Hypersegmented Neuts Atypical Lymphocytes Reactive Lymphocytes Smudge Cells Toxic Granulation Toxic Vacuolation Dohle Bodies Mikel Rods Platelet Estimate Plt Morphology Comment RBC Morphology Polychromasia Hypochromasia Basophilic Stippling Anisocytosis Microcytosis Macrocytosis Spherocytes Sickle Cells Target Cells Tear Drop Cells Ovalocytes Stomatocytes [place] Bodies Mireya Cells Bite Cells Crenated Cell Acanthocytes (Spur) Rouleaux Schistocytes PT INR APTT Sodium Potassium Chloride Carbon Dioxide Anion Gap BUN Creatinine Estim Creat Clear Calc Est GFR (MDRD) Non-Af BUN/Creatinine Ratio Glucose Calcium Magnesium Troponin T High Sens Troponin T Hi Sens 2 Hr 9 NT pro BNP II TSH Urine Color Yellow Urine Clarity Clear Urine pH 6.0 Ur Specific [place] 1.015 Urine Protein 15 H Urine Glucose (UA) Normal Urine Ketones 5 H Urine Occult Blood 10 H Urine Nitrite Negative Urine Bilirubin Negative Urine Urobilinogen Normal Ur Leukocyte Esterase 100 H Urine RBC 0 SEEN Urine WBC 0-5 SEEN Ur Squamous Epith Cells 5-10 SEEN Urine Bacteria 0 SEEN Urine Mucus 0 SEEN Urine Yeast 1+ Radiography Diagnostic Testing: Clinical Impression(s) from Imaging Studies Chest X-Ray 07/22/25 12:40 IMPRESSION: No acute process is identified in the chest. Reading [facility] Discharge Plan Triage Chief Complaint: General Illness ED Provider: Dominic Diaz Dx/Rx/DC Orders Clinical Impression: Lightheadedness, Near syncope Prescriptions: New ondansetron 4 mg tablet,disintegrating 4 mg PO Q6H PRN (Reason: nausea and vomiting) Qty: 20 0RF No Action cephalexin 250 mg capsule 250 mg PO QHS d-mannose 500 mg capsule 2,000 mg PO DAILY amitriptyline 25 mg tablet 25 mg PO QHS Qty: 30 0RF warfarin 5 mg tablet 5 mg PO QDAY cholecalciferol (vitamin D3) 25 mcg (1,000 unit) capsule 25 mcg PO QDAY PreserVision AREDS 4,296 mcg-226 mg-90 mg capsule 1 cap PO BID ascorbic acid (vitamin C) 1,000 mg Capsule, Extended Release 1 cap PO QHS sumatriptan succinate 100 mg tablet 100 mg PO Q2H PRN (Reason: migraine headache) simvastatin 10 mg tablet 10 mg PO DAILY ondansetron 4 mg tablet,disintegrating 4 mg PO TID PRN (Reason: nausea and vomiting) Qty: 21 0RF Primary Care Provider: Rangel Santos Referrals: Rangel Santos MD [Primary Care Provider] - Activity Restrictions/Additional Instructions: Follow-up with your doctors in outpatient setting obtain a stress test in the outpatient setting. Use Zofran as prescribed. Return for worsening symptoms or other concerns. Your blood work did not show any acute findings today. Your urine did not show any evidence of infection. Print Language: [place] Disposition Disposition: Home, Self Care
[2025-07-22 12:17] VITALS: O2SAT 95
[2025-07-22] MEDS: 0.9% Normal Saline (1000mL) 1,000 ML 999 ML IV (12:21)
[2025-07-22 12:22] VITALS: BP 157/76; PULSE 96; RESP 18; TEMP 36.7; O2SAT 98
[2025-07-22 12:35] LABS: Prothrombin Time (Protime)PT. 22.5 SECONDS (11.7-14.9)
[2025-07-22 12:36] LABS: Partial Thromboplast Time 28.0 Seconds (24.1-36.2)
--- NOTE | 2025-07-22 12:40 | RAD_ITS ---
PROCEDURE: CHEST PA AND LATERAL 07/22/2025 REASON FOR EXAM: NEAR SYNCOPE TECHNIQUE: Procedure Code: RADCXR Modality: DX Procedure: CHEST PA AND LATERAL COMPARISON: April 08, 2024 FINDINGS: Heart size is within normal limits. There is no focal infiltrate or consolidation. There is no pneumothorax or effusion. There is no acute bony abnormality. Aortic calcifications are noted. Hardware is visible in the lumbar region. RAD/Chest PA and Lateral IMPRESSION: No acute process is identified in the chest. Reading Location: [facility]
[2025-07-22 12:49] LABS: Anion Gap 11 (5-15); BUN 17 mg/dL (4-19); BUN/Creat Ratio 19.8 RATIO (10-20); Calcium,Total 9.0 mg/dL (7.6-11.0); Carbon Dioxide 21.6 mmol/L (21.0-32.0); Chloride 107 mmol/L (98-108); Estimated Creatinine Clearance 46.58 ml/min (50-250); Glucose 108 mg/dL (70-99); Magnesium 2.1 mg/dL (1.5-2.2); Potassium 3.9 mmol/L (3.3-5.1); Pro- Brain NATRIURETIC PEPTIDE 67 pg/mL (<=1800); Troponin T High Sensitivity 12 ng/L (<=14)
[2025-07-22 12:49] LABS: Hematocrit 41.5 % (37-47); Hemoglobin 13.7 g/dL (12.0-15.0); Immature Granulocytes Count 0.020 X10^3/uL (0.0-0.0); Mean Corp Hgb Conc 33.0 g/dL (32-36); Mean Corpuscular Volume 96.7 fL (81-99); Mean Platelet Vol. 10.1 fl (6.2-12.0); NRBC Flagged by Analyzer 0 % (0-5); Platelet Count 192 K/mm3 (150-450); RBC Distribution Width CV 12.1 % (11.6-14.6); RBC Distribution Width SD 42.8 fl (35.1-43.9); Red Blood Count 4.29 M/mm3 (4.2-5.4); White Blood Count 6.8 K/mm3 (4.4-11.0)
[2025-07-22 13:00] VITALS: BP 156/120; PULSE 88; RESP 14; TEMP 36.9; O2SAT 98
[2025-07-22 13:45] VITALS: O2SAT 95
[2025-07-22 13:47] LABS: Mucous, Urine 0 SEEN /hpf (<or=2+); Red Blood Cells-Urine 0 SEEN /hpf (0-5)
[2025-07-22 13:50] LABS: Color, Urine Yellow (Yellow); Glucose, Dipstick Normal (Normal); Ketone-Dipstick 5 mg/dl (Negative); Leukocyte Esterase-Dipstick 100 /ul (Negative); Nitrite-Dipstick Negative (Negative); Occult Blood-Urine 10 /ul (Negative); Protein-Dipstick 15 mg/dl (Negative); Specific Gravity, Urine 1.015 (1.002-1.030); Urine Bilirubin Dipstick Negative (Negative)
[2025-07-22 13:55] LABS: Squamous Epithelial Cells - UA 5-10 SEEN /hpf (5-10)
[2025-07-22 13:56] LABS: Yeast-Urine 1+ /hpf (None Seen)
[2025-07-22 14:48] LABS: Troponin T High Sens 2 HR 9 ng/L (<=14)
[2025-07-22 15:35] VITALS: BP 156/120; PULSE 91; RESP 22; TEMP 36.6; O2SAT 97
== END 2025-07-22 15:35 | disposition home or self-care (01) ==
PROVIDERS: Emergency Provider Emergency Medicine; PCP Family Medicine; Visit Provider Emergency Medicine
DX: R55 Syncope and collapse (principal); E78.5 Hyperlipidemia, unspecified; Z90.710 Acquired absence of both cervix and uterus; R42 Dizziness and giddiness; I10 Essential (primary) hypertension; K21.9 Gastro-esophageal reflux disease without esophagitis; Z79.01 Long term (current) use of anticoagulants; Z86.711 Personal history of pulmonary embolism; Z82.49 Family history of ischemic heart disease and other diseases of the circulatory system; Z90.49 Acquired absence of other specified parts of digestive tract; R11.0 Nausea; Z87.440 Personal history of urinary (tract) infections
CPT/HCPCS: 71046; 80048; 81001; 83735; 83880; 84443; 84484; 85025; 85610; 85730; 93005; 99284; A4216

== ENCOUNTER 2025-07-28 16:37 | Emergency (ER) | payer MEDICARE, OTHER, SELFPAY ==
[2025-07-28 16:38] VITALS: BP 177/99; PULSE 97; RESP 16; TEMP 36.8; O2SAT 98; BMI 23.9
--- NOTE | 2025-07-28 18:19 | ED.RN ---
PT CAME TO DESK REPORTS THAT SHE WILL COME BACK LATER. BRESSING INTACT BLEEDING CONTROLLED
== END 2025-07-28 18:12 | disposition left against medical advice (07) ==
LOC: ED 18:52
PROVIDERS: PCP Family Medicine
DX: Z53.21 Procedure and treatment not carried out due to patient leaving prior to being seen by health care provider (principal)

== ENCOUNTER 2025-10-24 06:12 | Emergency (ER) | payer MEDICARE, OTHER, SELFPAY ==
[2025-10-24 06:13] VITALS: BP 184/102; PULSE 108; RESP 18; TEMP 36.8; O2SAT 96; BMI 24.8
[2025-10-24 06:16] VITALS: BP 174/94; PULSE 101; RESP 18; TEMP 36.8; O2SAT 98
[2025-10-24 06:41] LABS: Mucous, Urine 0 SEEN /hpf (<or=2+)
[2025-10-24 06:43] LABS: Color, Urine Yellow (Yellow); Glucose, Dipstick Normal (Normal); Ketone-Dipstick Negative (Negative); Leukocyte Esterase-Dipstick 500 /ul (Negative); Nitrite-Dipstick Positive (Negative); Occult Blood-Urine 25 /ul (Negative); Protein-Dipstick Negative (Negative); Specific Gravity, Urine 1.010 (1.002-1.030)
[2025-10-24 06:52] LABS: Red Blood Cells-Urine 0-5 SEEN /hpf (0-5); Squamous Epithelial Cells - UA 0-5 SEEN /hpf (5-10); Urine Bilirubin Dipstick 3 mg/dL (Negative)
--- OUTSIDE RECORDS SUMMARY | 2025-10-24 06:53 | XMS RPT_ITS | CCD ---
Author Organization [facility] Care Team Providers Care Case Packer Name Role Phone Friend, Dr. Degroot Attending Provider [phone] Rangel Bonilla Primary Care Provider Dr. Rangel Bonilla Referring Provider Friend, Dr. Degroot Other Provider [phone] Rangel Bonilla MD Primary Care Provider Candelaria MEEK, S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-C Nikki El Attending Provider Unknown, Referring Provider Unavailable Unav ailable Unavailable Unavailable Rangel Bonilla MD Primary Care Provider Dr. Dutch Stevenson Referring Unavailable Dr. Dutch Stevenson Attending Unavailable UNKNOWN, PCP Primary Care Unavailable Rangel Bonilla MD Primary Care Provider Rangel Bonilla MD Primary Care Provider Valentine RN, Lupe Unavailable Uma SHEET METAL FOREMAN.Alan WILSON Unavailable Rayna Martinez PA-C Unavailable Rangel Bonilla MD Primary Care Provider [phone] Uma SHEET METAL FOREMAN.Alan WILSON Unavailable Rayna Martinez PA-C Unavailable Dr. Rangel Bonilla MD Primary Care Provider Dr. Sen Olivas DO Emergency Provider Uma SHEET METAL FOREMAN.Alan WILSON Unavailable Juan QUEZADA, Rayna Unavailable [phone], Pharmacist Unavailable Deisy VERDIN, Dr. Chatterjee Attending Provider Oumou LOREDO, Dr. Medeiros Attending Provider Tom LOREDO, Dr. Multani Referring Provider Tom LOREDO, Dr. Multani Primary Care Physician Deisy VERDIN, Dr. Chatterjee Attending Physician [phone] Deisy VERDIN, Dr. Chatterjee Emergency Department Physici an Oumou LOREDO, Dr. Medeiros Attending Physician Joe VERDIN, Dr. Alfaro Attending Physician Joe VERDIN, Dr. Alfaro Emergency Department Physic maral Provider, Ed Physician Attending Physician Unava ilable Provider, Ed Physician Emergency Department Phys ician Unavailable Tom LOREDO, Dr. Multani Primary Care Physician Dr. Zane Granado DO Attending Physician Tom, Rangel Primary Care Unavailable Rhea MEEK, Dutch Perez Attending Unavailable Tom, Rangel Referring Unavailable Tom, Rangel Referring Unavailable Tom, Rangel Primary Care Unavailable Zane Granado Attending Unavailable Mala Coello Attending Unavailable Tom, Rangel Referring Unavailable Tom, Rangel Primary Care Unavailable Tom, Rangel Referring Unavailable Tom, Rangel Primary Care Unavailable Zane Granado Attending Unavailable Tom, Rangel Referring Unavailable Mala Coello Attending Unavailable Tom, Rangel Primary Care Unavailable Tom, Rangel Referring Unavailable Mala Coello Attending Unavailable Tom, Rangel Primary Care Unavailable Tom, Rangel Referring Unavailable Tom, Rangel Primary Care Unavailable Mala Coello Attending Unavailable Sen Olivas Attending Unavailable Tom, Rangel Primary Care Unavailable Tom, Rangel Primary Care Unavailable Dominic Diaz Attending Unavailable Tom, Rangel Primary Care Unavailable Provider, Ed Physician Attending Unavailab le Mala Coello Attending Unavailable Tom, Rangel Primary Care Unavailable TOM, RANGEL A Primary Care Unavailable TOM, RANGEL A Referring Unavailable TOM, RANGEL A Primary Care Unavailable TOM, RANGEL A Referring Unavailable TOM, RANGEL A Primary Care Unavailable TOM, RANEGL A Referring Unavailable TOM, RANGEL A Primary Care Unavailable TOM, RANGEL A Referring Unavailable TOM, RANGEL A Primary Care Unavailable TOM, RANGEL A Primary Care Unavailable KATELIN JAMESON Referring Unavailable TOM, RANGEL A Primary Care Unavailable CABRERA LANDEROS Attending Unavailable TOM, RANGEL A Primary Care Unavailable MASCI, LORRI A Attending Unavailable TOM, RANGEL A Primary Care Unavailable MASCI, LORRI A Referring Unavailable TOM, RANGEL A Primary Care Unavailable MASCI, LORRI A Referring Unavailable DAVE NÚÑEZ Attending Unavailable TOM, RANGEL A Primary Care Unavailable TOM, RANGEL A Primary Care Unavailable TOM, RANGEL A Referring Unavailable TOM, RANGEL A Primary Care Unavailable TOM, RANGEL A Attending Unavailable TOM, RANGEL A Primary Care Unavailable MASCI, LORRI A Referring Unavailable LUDMILA ALBERTS Attending Unavailable TOM, RANGEL A Primary Care Unavailable TOM, RANGEL A Primary Care Unavailable MASCI, LORRI A Referring Unavailable JANEE GAYLEREY Attending Unavailable TOM, RANGEL A Primary Care Unavailable TOM, RANGEL A Primary Care Unavailable MASCI, LORRI A Referring Unavailable TOM, RANGEL A Primary Care Unavailable TOM, RANGEL A Attending Unavailable TOM, RANGEL A Primary Care Unavailable TOM, RANGEL A Referring Unavailable TOM, RANGEL A Primary Care Unavailable RAYNA MARTINEZ Attending Unavailable HELENA VAZQUEZ Attending Unavailable TOM, RANGEL A Primary Care Unavailable TOM, RANGEL A Primary Care Unavailable ALAN VIGIL Attending Unavailable TOM, RANGEL A Primary Care Unavailable TOM, RANGEL A Referring Unavailable JESSICA BADILLO Attending Unavailable TOM, RANGEL A Primary Care Unavailable TOM, RANGEL A Primary Care Unavailable TOM, RANGEL A Attending Unavailable TOM, RANGEL A Primary Care Unavailable TOM, RANGEL A Referring Unavailable PENDDREW RANGEL Attending Unavailable TOM, RANGEL A Primary Care Unavailable TOM, RANGEL A Primary Care Unavailable CHRISTIANA RODRIGUEZ Attending Unavailable TOM, RANGEL A Primary Care Unavailable TOM, RANGEL A Attending Unavailable HELENA VAZQUEZ Attending Unavailable TOM, RANGEL A Primary Care Unavailable TOM, RANGEL A Primary Care Unavailable RANGEL BONILLA Referring Unavailable Allergies Allergy Classification Reported Allergen(s) Allergy Type Date of Onset Reaction(s) Facility Proton Pump Inhibitors (8 sources) Omeprazole Drug Allergy 6 Other: See Comments [facility] Sucralfate (6 sources) Sucralfate Drug Allergy 6 Diarrhea [facility] (2 sources) Angiotensin-conve rting enzyme inhibitor agent; Translations: [WILLIS INHIBITORS] Drug Intolerance 7 Cough [facility] Work Phone: (20 sources) Omeprazole Drug Allergy 0 Other: See Comments [facility] Work Phone: (20 sources) pantoprazole; Translations: [PANTOPRAZOLE] Drug Allergy 6 Other: See Comments [facility] Work Phone: (20 sources) Sucralfate; Translations: [SUCRALFATE] Drug Allergy 6 Diarrhea [facility] Work Phone: (19 sources) environmental [Other] Propensity to adverse reactions 6 Unknown [facility] Work Phone: (20 sources) Angiotensin-conve rting enzyme inhibitor agent Drug Intolerance 7 Cough [facility] Work Phone: (20 sources) apixaban; Translations: [APIXABAN] Drug Allergy 4 Other: See Comments [facility] (20 sources) rivaroxaban; Translations: [RIVAROXABAN] Drug Allergy 5 Other: See Comments [facility] Medications Current Medications Medication Drug Class(es) Dates Sig (Normalized) Sig (Original) amoxicillin 875 mg / clavulanate 125 mg oral tablet (12 sources) Penicillin-class Antibacterial Start: 07-10-2025 End: 07-20-2025 take 1 tablet by mouth every twelve hours amoxicillin-clav ulanate potassium (AUGMENTIN) 875-125 mg per tablet Take 1 tablet by mouth every 12 hours for 10 days. 20 tablet 07/10/2025 07/20/2025 Active Start: 04-02-2024 End: 04-09-2024 Amoxicillin-Pot Clavulanate 875-125 mg tablet Discontinued 1 {tbl} PO TWICE A DAY 14 0 April 02, 2024 12:00am April 09, 2024 2:31pm take with food-start with supper today Start: 12-12-2023 End: 12-19-2023 take 1 tablet by mouth twice daily amoxicillin-clavulanate potassium (AUGMENTIN) 875-125 mg per tablet Indications: Acute cough , Post-nasal drainage Take 1 tablet by mouth two times a day for 7 days. 14 tablet 0 12/12/2023 12/19/2023 Active Start: 09-12-2023 End: 09-19-2023 take 1 tablet by mouth twice daily amoxicillin-clavulanate potassium (AUGMENTIN) 875-125 mg per tablet Indications: Rhinosinusitis Take 1 tablet by mouth two times a day for 7 days. 14 tablet 0 09/12/2023 09/19/2023 Active Comment on above: Take 1 tablet by [facility] two times a day for 7 days. apixaban 2.5 mg oral tablet (20 sources) Factor Xa Inhibitor Start: 08-18-2025 take 1 tablet by mouth twice daily Start: 04-15-2024 End: 07-18-2024 take 1 tablet by mouth twice daily apixaban (ELIQUIS) 5 mg tab(s) Take 1 tablet by mouth two times a day. 60 tablet 1 06/28/2024 07/18/2024 Discontinued (Changing Therapy/Dosage Form) Start: 04-09-2024 End: 11-08-2024 take 2 tablets by mouth twice daily, then take 1 tablet by mouth twice daily Apixaban (Eliquis) 5 mg Tablet Discontinued 5 mg PO TWICE A DAY 70 0 April 09, 2024 12:00am November 08, 2024 10:17am 10 mg p.o. twice daily x 7 days then subsequently 5 mg twice daily ascorbic acid 1000 mg extend ed release oral tablet (20 sources) Vitamin C Start: 04-07-2022 Start: 04-07-2022 take 1 capsule by [facility] at bedtime Ascorbic Acid (Vitamin C) (Vitamin C) 1,000 mg Capsule, Extended Release Active 1 CAP PO AT BEDTIME April 06, 2022 11:00pm Start: 07-10-2018 End: 10-03-2018 take 1 tablet by mouth twice daily at mealtime Ascorbic Acid (Vitamin C) 500 MG tablet Discontinued 500 mg PO TWICE DAILY WITH MEALS 60 3 July 10, 2018 12:00am October 03, 2018 4:02pm take with Hiprex End: 07-18-2024 take 1 tablet by mouth once daily Ascorbic Acid 1,000 mg tablet Take 1,000 mg by mouth once daily. 07/18/2024 Discontinued Comment on above: Take 1,000 mg by [place] once daily. ascorbic acid 226 mg / beta carotene [id number] unt / cuprous oxide 0.8 mg / dl-alpha tocopheryl acetate 200 unt / zinc oxide 34.8 mg oral capsule (10 sources) Vitamin C Start: 06-06-2025 Start: 11-08-2024 End: 06-06-2025 Vitamins A,C,B-Gpng-Dglfjv ( Preservision Areds) 2,148 mcg-113 mg-45 mg-17.4mg tablet Discontinued 2 {tbl} PO TWICE A DAY November 08, 2024 1:00am June 06, 2025 12:08pm administer with AM and PM meals benzonatate 200 mg oral capsule (20 sources) Non-narcotic Antitussive Start: 07-10-2025 take 1 capsule by mouth every eight hours as needed Benzonatate 200 mg capsule Take 1 capsule by mouth three times a day as needed. 45 capsule 1 07/10/2025 Active Start: 01-16-2025 take 1 capsule by [facility] every eight hours as needed benzonatate (TESSALON PERLE) 100 mg capsule Take 1 capsule by mouth three times a day as needed for cough. 21 capsule 01/16/2025 Active Start: 08-09-2023 End: 04-19-2024 take 2 capsules by mouth every eight hours as needed benzonatate (TESSALON PERLES) 100 mg capsule Take 2 capsules by mouth three times a day as needed. 30 capsule 0 12/21/2023 04/19/2024 Discontinued Start: 10-26-2021 End: 04-27-2022 take 1 capsule by mouth every eight hours as needed Benzonatate 200 mg capsule Take 1 capsule by mouth three times daily as needed. 90 capsule 5 10/26/2021 04/27/2022 Discontinued (Course of therapy completed) Comment on above: Take 1 capsule by mo uth three times daily as needed. Take 2 capsules by m outh three times a day as needed. cephalexin 250 mg oral capsule (20 sources) Cephalosporin Antibacterial Start: 11-08-2024 take 1 capsule by mouth at bedtime Start: 05-12-2023 End: 11-08-2023 take 1 capsule by mouth every six hours Cephalexin 500 mg capsule Discontinued 500 mg PO EVERY 6 HOURS 8 0 May 16, 2023 12:00am November 08, 2023 5:53pm cholecalciferol 0.025 mg ora l capsule (20 sources) Vitamin D Start: 06-06-2025 take 1 capsule by mo uth once daily Start: 02-26-2025 take 1 capsule by mo uth once daily Cholecalciferol, Vitamin D3, (VITAMIN D-3) 50 mcg (2,000 unit) cap Take 1 capsule by mouth once daily. 02/26/2025 Active End: 07-18-2024 take 1 tablet by mouth once daily cholecalciferol (VITAMIN D-3) 5,000 unit tab Take 5,000 Units by mouth once daily. 07/18/2024 Discontinued ciprofloxacin 250 mg oral tablet (10 sources) Quinolone Antimicrobial Start: 05-17-2025 End: 05-20-2025 take 1 tablet by mouth twice daily ciprofloxacin HCl (CIPRO) 250 mg tablet Indications: Acute UTI Take 1 tablet by mouth two times a day for 3 days. 6 tablet 05/17/2025 05/20/2025 Active Start: 11-08-2023 End: 03-24-2024 take 1 tablet by mouth twice daily Ciprofloxacin Hcl (Cipro) 500 mg tablet Discontinued 500 mg PO TWICE A DAY 20 November 08, 2023 1:00am March 24, 2024 3:45am codeine phosphate 2 mg/ml / guaiFENesin 20 mg/ml oral solution (1 source) Opioid Agonist Start: 01-17-2025 End: 01-22-2025 take 5-10 mL by mouth four times daily as needed for cough codeine-guaiFENesin (ROBITUSSIN AC) 10-100 mg/5 mL syrup Indications: Cough , Acute non-recurrent maxillary sinusitis Take 5-10 mL by mouth four times a day as needed for cough for up to 5 days. May cause drowsiness. 120 mL 01/17/2025 01/22/2025 Active Cream Base No.175 (Bulk) (2 sources) Start: 11-08-2023 Cream Base No.175 (Bulk) Active 0 TOPICAL .COMPLEX November 08, 2023 12:00am APPLY 1 GRAM (4 CLICKS)CVAGINALLY DAILY AT BEDTIME FOR 2 WEEKS, THEN TWICE WEEKLY D-Mannose (6 sources) Start: 11-08-2024 take 1 capsule by mouth once daily Start: 11-08-2024 take 1 capsule by mo [facility] once daily D-Mannose 500 mg capsule Active 2000 mg PO DAILY November 08, 2024 1:00am doxycycline hyclate 100 mg oral tablet (2 sources) Tetracycline-class Drug Start: 12-21-2023 End: 12-28-2023 take 1 tablet by mouth twice daily doxycycline (VIBRA-TABS) 100 mg tablet Take 1 tablet by mouth two times a day for 7 days. 14 tablet 0 12/21/2023 12/28/2023 Active Comment on above: Take 1 tablet by [facility] two times a day for 7 days. 0.4 ml enoxaparin sodium 100 mg/ml prefilled syringe (20 sources) Low Molecular Weight Heparin Start: 07-18-2024 End: 01-15-2025 enoxaparin (LOVENOX) 40 mg/0.4 mL Indications: History of pulmonary embolus (PE) Do one shot daily till therapeutic on coumadin and intructed by provider to stop. Start on Monday07/20/2024 20 Each 1 07/18/2024 01/15/2025 Discontinued estradiol 0.1 mg/ml vaginal cream (20 sources) Estrogen Start: 08-22-2025 Start: 08-22-2025 estradiol (ESTRA CE) 0.01 % (0.1 mg/gram) vaginal cream Use 1 g vaginally every other day. At bedtime Active fluconazole 100 mg oral tabl et (6 sources) Azole Antifungal Start: 08-22-2025 Start: 08-22-2025 Start: 06-03-2025 End: 06-03-2025 take 1 tablet by mouth once fluconazole (DIFLUCAN) 150 mg tablet Take 1 tablet by mouth one time only for 1 dose. 1 tablet 06/03/2025 06/03/2025 Active Start: 05-28-2025 End: 05-28-2025 take 1 tablet by mouth once fluconazole (DIFLUCAN) 150 mg tablet Take 1 tablet by mouth one time only for 1 dose. 1 tablet 05/28/2025 05/28/2025 Active ipratropium bromide 0.042 mg/actuat metered dose nasal spray (3 sources) Anticholinergic Start: 01-16-2025 End: 02-02-2025 take 2 spray(s) nasal route three times daily ipratropium bromide (ATROVENT) 42 mcg (0.06 %) nasal spray Use 2 Sprays in each nostril three times a day for 17 days. 15 mL 01/16/2025 02/02/2025 Active molnupiravir 200 mg capsule (1 source) Start: 08-10-2023 End: 08-15-2023 take 4 capsules by mouth twice daily molnupiravir 200 mg capsule Indications: COVID-19 Take 4 capsules by mouth two times a day for 5 days. 40 capsule 0 08/10/2023 08/15/2023 Active Comment on above: Take 4 capsules by m outh two times a day for 5 days. nirmatrelvir tablet 300 mg (150 mg x 2) and ritonavir tablet 100 mg in a dose pack (PAXLOVID) (3 sources) Start: 01-15-2025 End: 01-20-2025 nirmatrelvir tablet 300 mg (150 mg x 2) and ritonavir tablet 100 mg in a dose pack (PAXLOVID) Administer TWO pink nirmatrelvir 150 mg tablets and ONE white ritonavir 100 mg tablet for a total of three tablets twice daily. 30 tablet 01/15/2025 01/20/2025 Active nitrofurantoin, macrocrystals 25 mg / nitrofurantoin, monohydrate 75 mg oral capsule (20 sources) Nitrofuran Antibacterial Start: 05-14-2025 End: 05-19-2025 take 1 capsule by mouth twice daily nitrofurantoin monohydrate and macrocrystal (MACROBID) 100 mg capsule Take 1 capsule by mouth two times a day for 5 days. 10 capsule 05/14/2025 05/19/2025 Active Start: 05-10-2024 End: 07-18-2024 take 1 capsule by mouth once daily at bedtime nitrofurantoin monohydrate and macrocrystal (MACROBID) 100 mg capsule Take 100 mg by mouth daily at bedtime. 05/10/2024 07/18/2024 Discontinued Start: 04-19-2024 End: 04-26-2024 take 1 capsule by mouth twice daily at mealtime nitrofurantoin monohydrate and macrocrystal (MACROBID) 100 mg capsule Take 1 capsule by mouth two times a day with meals for 7 days. 14 capsule 0 04/19/2024 04/26/2024 Active Start: 05-25-2023 End: 05-30-2023 take 1 capsule by mouth twice daily nitrofurantoin monohydrate and macrocrystal (MACROBID) 100 mg capsule Indications: Burning with urination Take 1 capsule by mouth twice daily for 5 days. 10 capsule 0 05/25/2023 05/30/2023 Active Start: 07-07-2018 End: 07-10-2018 take 1 capsule by mouth every twelve hours Nitrofurantoin Monohyd/M-Cryst 100 MG capsule Discontinued 100 mg PO EVERY 12 HOURS 14 0 July 07, 2018 12:00am July 10, 2018 11:28am Comment on above: Take 1 capsule by [facility] twice daily for 5 days. nystatin [id number] unt/ml oral suspension (4 sources) Polyene Antifungal Start: 08-22-2025 take 1 mL by mouth three times daily Start: 08-22-2025 take 1 mL by mouth t hree times daily Start: 08-18-2025 End: 08-22-2025 take 1 mL by mouth three times daily Nystatin 100,000 unit/mL suspension Discontinued 1 mL PO THREE TIMES A DAY 42 14 0 August 18, 2025 12:00am August 31, 2025 12:00am August 22, 2025 2:37pm swish and swallow ondansetron 4 mg disintegrating oral tablet (20 sources) Serotonin-3 Receptor Antagonist Start: 07-22-2025 End: 08-18-2025 take 1 tablet by mouth every six hours as needed for nausea and vomiting Start: 05-01-2024 take 1 tablet by [facility] every eight hours as needed ondansetron orally disintegrating (ZOFRAN ODT) 4 mg disintegrating tablet Take 1 tablet by mouth every 8 hours as needed for nausea/vomiting. 30 tablet 1 05/01/2024 Active Start: 04-28-2024 End: 05-01-2024 take 1 tablet by mouth every eight hours as needed ondansetron (ZOFRAN) 4 mg tablet Take 1 tablet by mouth every 8 hours as needed. 30 tablet 0 04/28/2024 05/01/2024 Discontinued (Duplicate Entry) Start: 03-24-2024 End: 08-18-2025 take 1 tablet by mouth three times daily as needed for nausea and vomiting Ondansetron 4 mg tablet,disintegrating Discontinued 4 mg PO THREE TIMES A DAY as needed for nausea and vomiting March 24, 2024 5:59am August 18, 2025 3:06pm Start: 08-05-2016 End: 03-30-2018 take 1 tablet by mouth every eight hours as needed for nausea Ondansetron 4 MG tablet Discontinued 4 mg PO EVERY 8 HOURS NEEDED as needed for Nausea August 05, 2016 12:00am March 30, 2018 1:07pm simvastatin 10 mg oral tablet (20 sources) HMG-CoA Reductase Inhibitor Start: 08-05-2016 End: 01-24-2024 take 1 tablet by mouth once daily Simvastatin 10 M G Oral Tablet Quantity: 0 Refills: 0 Ordered: 12-Jul-2022 DO Active Comment on above: Take 1 tablet by [place] daily at bedtime. SUMAtriptan 100 mg oral tablet (20 sources) Serotonin-1b and Serotonin-1d Receptor Agonist Start: 11-08-2023 take 1 tablet by mouth every two hours as needed for headache Start: 10-16-2020 End: 01-24-2024 SUMAtriptan (IMITREX) 100 mg tablet Take one tab by month with onset of headache. Can repeat in 2 hrs. Max of 2 tabs in 24 hrs 9 tablet 3 01/24/2024 Active Comment on above: Take one tab by sarah h with onset of headache. Can repeat in 2 hrs. Max of 2 tabs in 24 hrs valACYclovir 1000 mg oral tablet (4 sources) Herpesvirus Nucleoside Analog DNA Polymerase Inhibitor, Herpes Simplex Virus Nucleoside Analog DNA Polymerase Inhibitor, Herpes Zoster Virus Nucleoside Analog DNA Polymerase Inhibitor Start: End: take 1 tablet by mouth twice daily valACYclovir (VALTREX) 1 gram tablet Take 1 tablet by mouth two times a day for 7 days. 14 tablet 03/17/2025 03/24/2025 Active Vitamins A,C,C-Dsbi-Ccmwxi (Preservision Areds) 4,296 mcg-226 mg-90 mg capsule (1 source) Start: Vitamins A,C,R-Swdh-Cwoyjc (Preservision Areds) 4,296 mcg-226 mg-90 mg capsule Active 1 NMA PO TWICE A DAY June 06, 2025 12:00am Completed/Discontinued Medications Medication Drug Class(es) Dates Sig (Normalized) Sig (Original) amitriptyline hydrochloride 25 mg oral tablet (7 sources) Tricyclic Antidepressant Start: 11-08-2024 End: 08-18-2025 take 1 tablet by mouth at bedtime Amitriptyline 25 mg tablet Discontinued 25 mg PO AT BEDTIME 30 0 November 08, 2024 1:00am August 18, 2025 3:06pm Start: 07-12-2022 Amitriptyline HCl - 10 MG Oral Tablet TAKE 1 TABLET AT BEDTIME.MAY INCREASE TO 2 TABLETS AT BEDTIME AFTER 1 WEEK. Quantity: 60 Refills: 11 Ordered: 12-Jul-2022 Dutch Stevenson DO Start : 12-Jul-2022 Active amLODIPine 5 mg oral tablet (13 sources) Dihydropyridine Calcium Channel Madhu Start: 03-30-2018 End: 10-03-2018 take 1 tablet by mouth at bedtime Amlodipine 5 mg tablet Discontinued 5 mg PO AT BEDTIME March 30, 2018 12:00am October 03, 2018 4:01pm blood pressure aspirin 81 mg delayed release oral tablet (3 sources) Platelet Aggregation Inhibitor, Nonsteroidal Anti-inflammatory Drug End: 04-27-2022 take 1 tablet by mouth once daily aspirin, enteric coated (ECOTRIN LOW STRENGTH) 81 mg EC tablet Take 81 mg by mouth once daily. 04/27/2022 Discontinued Comment on above: Take 81 mg by mouth once daily. azithromycin 250 mg oral tablet (13 sources) Macrolide Antimicrobial Start: 03-04-2022 End: 03-11-2022 take 1 tablet by mouth once daily Azithromycin (Zithromax Z-Ken) 250 mg tablet Discontinued 250 mg PO DAILY 7 7 0 March 04, 2022 12:00am March 10, 2022 12:00am March 11, 2022 12:04am Beclomethasone Dipropionate (6 sources) Corticosteroid Start: 01-31-2024 End: 11-08-2024 Beclomethasone Dipropionate 80 mcg/actuation HFA aerosol breath activated Discontinued 1 NMA INHALATION Q12H 10.6 3 January 31, 2024 12:00am November 08, 2024 10:17am breathing Start: 01-31-2024 End: 11-08-2024 Beclomethasone Dipropionate 80 mcg/actuation HFA aerosol breath activated Discontinued 1 NMA INHALATION Q12H 10.6 January 31, 2024 12:00am November 08, 2024 10:17am cefpodoxime 200 mg oral tablet (13 sources) Cephalosporin Antibacterial Start: 01-19-2019 End: 10-15-2019 take 1 tablet by mouth twice daily Cefpodoxime 200 MG tablet Discontinued 200 mg PO TWICE A DAY 20 0 January 19, 2019 12:00am October 15, 2019 5:50pm clindamycin 300 mg oral capsule (13 sources) Lincosamide Antibacterial Start: 08-05-2016 End: 03-30-2018 take 1 capsule by mouth every six hours Clindamycin Hcl 300 MG capsule Discontinued 300 mg PO EVERY 6 HOURS 40 0 August 05, 2016 12:00am March 30, 2018 1:08pm Cranberry (13 sources) Non-Standardized Food Allergenic Extract, Non-Standardized Plant Allergenic Extract Start: 10-03-2018 End: 10-15-2019 take 500 mg by mouth twice daily Cranberry Discontinued 500 MG PO TWICE A DAY October 03, 2018 4:03pm October 15, 2019 5:50pm Start: 10-03-2018 End: 10-15-2019 take 1 capsule by mouth twice daily Cranberry 500 mg capsule Discontinued 500 mg PO TWICE A DAY October 03, 2018 1:00am October 15, 2019 5:50pm Start: 10-03-2018 End: 10-15-2019 take 500 mg by mouth twice daily Cranberry Discontinued 500 MG PO TWICE A DAY October 03, 2018 12:00am October 15, 2019 4:50pm Start: 10-03-2018 End: 10-15-2019 take 500 mg by mouth twice daily Cranberry Discontinued 500 MG PO TWICE A DAY October 03, 2018 1:00am October 15, 2019 5:50pm Cream Base No.175 (Bulk) cream (6 sources) Start: 11-08-2023 End: 04-01-2024 Cream Base No.175 (Bulk) cream Discontinued 0 TOPICAL .COMPLEX November 08, 2023 1:00am April 01, 2024 4:56pm APPLY 1 GRAM (4 CLICKS)CVAGINALLY DAILY AT BEDTIME FOR 2 WEEKS, THEN TWICE WEEKLY dexlansoprazole 30 mg delayed release oral capsule (4 sources) Proton Pump Inhibitor Start: 05-20-2022 End: 05-25-2022 take 1 capsule by mouth once daily Dexlansoprazole (Dexilant) 30 mg capsule,biphase delayed releas Discontinued 30 mg PO DAILY 30 May 20, 2022 12:00am May 25, 2022 4:59pm Dexlansoprazole (Dexilant) 30 mg capsule,biphase delayed releas (6 sources) Start: 05-20-2022 End: 05-25-2022 take 1 capsule by mouth once daily Dexlansoprazole (Dexilant) 30 mg capsule,biphase delayed releas Discontinued 30 mg PO DAILY 30 May 20, 2022 12:00am May 25, 2022 4:59pm Start: 05-20-2022 End: 05-25-2022 take 1 capsule by mouth once daily Dexlansoprazole (Dexilant) 30 mg capsule,biphase delayed releas Discontinued 30 mg PO DAILY May 20, 2022 12:00am May 25, 2022 4:59pm Start: 05-20-2022 End: 05-25-2022 take 1 capsule by mouth once daily Dexlansoprazole (Dexilant) 30 mg capsule,biphase delayed releas Discontinued 30 MG PO DAILY May 19, 2022 11:00pm May 25, 2022 3:59pm Start: 05-20-2022 End: 05-25-2022 take 1 capsule by mouth once daily Dexlansoprazole (Dexilant) 30 mg capsule,biphase delayed releas Discontinued 30 MG PO DAILY May 20, 2022 12:00am May 25, 2022 4:59pm dicyclomine hydrochloride 20 mg oral tablet (6 sources) Anticholinergic Start: 03-24-2024 End: 04-01-2024 take 1 tablet by mouth four times daily as needed for pain Dicyclomine 20 mg tablet Discontinued 20 mg PO 4 TIMES DAILY as needed for Abdominal pain/spasm 28 0 March 24, 2024 6:00am April 01, 2024 4:56pm esomeprazole 20 mg delayed release oral capsule (17 sources) Proton Pump Inhibitor Start: 11-27-2024 End: 06-06-2025 take 1 capsule by mouth once daily Esomeprazole Magnesium 20 mg capsule,delayed release(DR/EC) Discontinued 20 mg PO DAILY 30 5 November 27, 2024 3:43pm June 06, 2025 12:08pm reflux Start: 01-31-2024 End: 11-08-2024 take 1 capsule by mouth once daily Esomeprazole Magnesium 20 mg capsule,delayed release(DR/EC) Discontinued 20 mg PO DAILY 30 January 31, 2024 12:00am November 08, 2024 10:18am reflux Estriol (8 sources) Start: 11-08-2023 End: 04-01-2024 Estriol (Bulk) 100 % powder Discontinued 0 MC .COMPLEX November 08, 2023 1:00am April 01, 2024 4:56pm APPLY 1 GRAM (4 CLICKS)CVAGINALLY DAILY AT BEDTIME FOR 2 WEEKS, THEN TWICE WEEKLY Start: 11-08-2023 Estriol (Bulk) Active 0 MC .COMPLEX November 08, 2023 12:00am APPLY 1 GRAM (4 CLICKS)CVAGINALLY DAILY AT BEDTIME FOR 2 WEEKS, THEN TWICE WEEKLY famotidine 20 mg oral tablet (20 sources) Histamine-2 Receptor Antagonist Start: 01-31-2024 End: 06-06-2025 take 1 tablet by mouth at bedtime Famotidine 20 mg tablet Discontinued 20 mg PO AT BEDTIME 60 3 February 11, 2025 3:06pm June 06, 2025 12:08pm reflux 30 actuat fluticasone furoate 0.05 mg/actuat dry powder inhaler (20 sources) Corticosteroid Start: 03-27-2024 End: 07-18-2024 take 1 puff(s) by inhalation once daily ARNUITY ELLIPTA 50 mcg/actuation powder for inhalation Inhale 1 Puff as instructed once daily. 03/27/2024 07/18/2024 Discontinued Start: 12-12-2023 End: 05-06-2024 take 2 spray(s) by mouth once daily fluticasone (FLONASE) 50 mcg/actuation nasal spray Indications: Acute cough , Post-nasal drainage Use 2 Sprays in each nostril once daily. Rinse mouth after use. 1 Each 0 12/12/2023 05/06/2024 Discontinued Start: 04-16-2021 End: 07-19-2023 fluticasone (FLONASE) 50 mcg/actuation nasal spray Use 2 Sprays in each nostril as needed. Rinse mouth after use. 1 Bottle 5 04/16/2021 07/19/2023 Discontinued Start: 10-16-2020 End: 04-16-2021 take 2 spray(s) by mouth once daily fluticasone (FLONASE) 50 mcg/actuation nasal spray Use 2 Sprays in each nostril once daily. Rinse mouth after use. 1 Bottle 2 10/16/2020 04/16/2021 Discontinued Comment on above: Use 2 Sprays in each nostril as needed. Rinse mouth after use. Use 2 Sprays in each nostril once daily. Rinse mouth after use. fosfomycin 3000 mg powder for oral solution (13 sources) Start: 07-10-2018 End: 10-03-2018 Fosfomycin Tromethamine 3 GM packet Discontinued 3 g PO DIRECTED 3 0 July 10, 2018 12:00am October 03, 2018 4:03pm Take one dose mixed with water every 3 days for 3 doses glycerin 995 mg/ml topical solution (8 sources) Non-Standardized Chemical Allergen Start: 11-08-2023 End: 04-01-2024 Glycerin (Bulk) 100 % liquid Discontinued 0 .ROUTE .COMPLEX November 08, 2023 1:00am April 01, 2024 4:56pm APPLY 1 GRAM (4 CLICKS)CVAGINALLY DAILY AT BEDTIME FOR 2 WEEKS, THEN TWICE WEEKLY Start: 11-08-2023 Glycerin (Bulk ) Active 0 .ROUTE .COMPLEX November 08, 2023 12:00am APPLY 1 GRAM (4 CLICKS)CVAGINALLY DAILY AT BEDTIME FOR 2 WEEKS, THEN TWICE WEEKLY lansoprazole 30 mg delayed release oral capsule (20 sources) Proton Pump Inhibitor Start: 05-25-2022 End: 04-19-2024 take 1 capsule by mouth once daily in the morning Lansoprazole 30 mg capsule,delayed release(DR/EC) Discontinued 30 mg PO EVERY MORNING 90 3 May 26, 2022 10:21am January 31, 2024 8:35am End: 07-12-2022 Lansoprazole 30 MG Oral Caps ule Delayed Release Quantity: 0 Refills: 0 Ordered: 12-Jul-2022 DO End : 12-Jul-2022 Complete Comment on above: Take 30 mg by mouth once daily. Take 1 tablet in the AM Take 1 capsule by mo [facility] once daily. Take 1 tablet in the AM lisinopril 10 mg oral tablet (13 sources) Angiotensin Converting Enzyme Inhibitor Start: 08-05-20 End: 03-30-20 take 1 tablet by mouth once daily Lisinopril 10 MG tablet Discontinued 10 mg PO DAILY August 05, 2016 12:00am March 30, 2018 1:07pm meclizine hydrochloride 25 mg oral tablet (6 sources) Antiemetic Start: 04-13-20 End: 06-06-20 take 1 tablet by mouth three times daily as needed for dizziness Meclizine 25 mg tablet Discontinued 25 mg PO THREE TIMES A DAY as needed for dizziness 14 0 April 13, 2025 12:00am June 06, 2025 12:08pm methenamine hippurate 1000 mg oral tablet (20 sources) Start: 07-22-20 19 End: 11-08-19 25 Methenamine Hippurate 1 gram tablet Discontinued 1 g PO AT BEDTIME April 07, 2022 12:00am November 08, 2024 10:18am urinary tract health Start: 07-10-2018 End: 10-03-2018 take 1 tablet by mouth twice daily Methenamine Hippurate 1 GM tablet Discontinued 1 g PO TWICE A DAY 60 3 July 10, 2018 12:00am October 03, 2018 4:03pm Start after completing fosfomycin Comment on above: [facility] WITH VITAMIN C 1000MG FOR UTI PREVENTION nitrofurantoin, macrocrystals 100 mg oral capsule (13 sources) Nitrofuran Antibacterial Start: 08-05-20 End: 03-30-20 18 take 1 capsule by mouth every other day Nitrofurantoin Macrocrystal 100 MG capsule Discontinued 100 mg PO EVERY OTHER DAY August 05, 2016 12:00am March 30, 2018 1:07pm omeprazole 40 mg delayed release oral capsule (16 sources) Proton Pump Inhibitor Start: 01-29-20 End: 01-29-20 take 1 capsule by mouth once daily Omeprazole 40 mg capsule,delayed release(DR/EC) Discontinued 40 mg PO DAILY January 28, 2022 12:00am January 28, 2022 3:50pm Start: 10-26-2021 End: 04-27-2022 take 40 mg by mouth twice daily Omeprazole Active 40 M G PO TWICE A DAY January 28, 2022 3:50pm Start: 10-15-2019 take 20 mg by mouth once daily Omeprazole Active 20 MG PO DAILY 60 October 15, 2019 5:56pm Comment on above: Take 1 capsule by [facility] twice daily. pantoprazole 40 mg delayed release oral tablet (20 sources) Proton Pump Inhibitor Start: 05-05-2022 End: 05-20-2022 Pantoprazole 40 mg tablet,delayed release (DR/EC) Discontinued 40 mg PO TWICE A DAY 120 May 05, 2022 12:00am May 20, 2022 12:09pm Saravia's esophagus Saravia's esophagus without dysplasia take twice a day for 2 months then decrease to once a day in the morning End: 07-19-2023 take 1 tablet by mouth once daily in the evening pantoprazole DR (PROTONIX) 40 mg tablet Take 40 mg by mouth once daily. Take one tablet in PM 0 07/19/2023 Discontinued Comment on above: Take 40 mg by mouth once daily. Take one tablet in PM phenazopyridine hydrochloride 100 mg oral tablet (20 sources) Start: End: take 1 tablet by mouth three times daily as needed for pain Phenazopyridine (Pyridium) 100 mg tablet Discontinued 100 mg PO THREE TIMES A DAY as needed for pain 6 0 November 08, 2023 1:00am April 01, 2024 4:57pm Start: 05-16-2023 End: 01-31-2024 take 1 tablet by mouth three times daily as needed for pain Phenazopyridine (Pyridium) 200 mg tablet Discontinued 200 mg PO THREE TIMES A DAY as needed for pain November 08, 2023 1:00am January 31, 2024 8:01am Comment on above: Take by mouth. prednisoLONE 3 mg/ml oral solution (6 sources) Corticosteroid Start: 01-31-2024 End: 04-05-2024 take 15 mg by mouth twice daily Prednisolone 15 mg/5 mL solution Discontinued 15 mg PO TWICE A DAY 240 January 31, 2024 12:00am April 05, 2024 3:18pm inflammation Start: 01-31-2024 End: 04-05-2024 take 15 mg by mouth twice daily Prednisolone 15 mg/5 mL solution Discontinued 15 mg PO TWICE A DAY 240 January 31, 2024 12:00am April 05, 2024 3:18pm inflammation predniSONE 10 mg oral tablet (10 sources) Start: 11-08-2024 End: 06-06-2025 take 1 tablet by mouth once daily Prednisone 10 mg tablet Discontinued 10 mg PO daily 30 November 08, 2024 1:00am June 06, 2025 12:08pm Start: 08-09-2023 End: 08-14-2023 take 2 tablets by mouth once daily predniSONE (DELTASONE) 20 mg tablet Take 2 tablets by mouth once daily for 5 days. 10 tablet 0 08/09/2023 08/14/2023 Active Start: 03-04-2022 take 20 mg by mouth once daily Prednisone Active 20 MG PO DAILY March 04, 2022 9:14am Comment on above: Take 2 tablets by mo [facility] once daily for 5 days. risperiDONE 0.25 mg oral tablet (20 sources) Atypical Antipsychotic Start: 07-19-20 End: 04-19-20 24 take 1 tablet by mouth twice daily risperiDONE (RISPERDAL) 0.25 mg tablet Take 1 tablet by mouth twice daily. 30 tablet 5 07/19/2023 04/19/2024 Discontinued Comment on above: Take 1 tablet by [facility] twice daily. rivaroxaban 10 mg oral tablet (4 sources) Factor Xa Inhibitor Start: 03-11-20 End: 03-19-20 25 take 1 tablet by mouth once daily rivaroxaban (XARELTO) 10 mg tablet Take 1 tablet by mouth once daily. 30 tablet 5 03/11/2025 03/19/2025 Discontinued (Adverse Reaction) sucralfate 100 mg/ml oral suspension (11 sources) Aluminum Complex Start: 05-05-20 22 End: 04-01-20 24 take 1 mL by mouth at bedtime Sucralfate 100 mg/mL suspension Discontinued 10 mL PO before meals and at bedtime 1200 0 May 05, 2022 12:00am April 01, 2024 4:57pm Start: 05-05-2022 take 1 mL by mouth at bedtime Sucralfate Active 10 ML PO before meals and at bedtime 1200 May 04, 2022 11:00pm warfarin sodium 5 mg oral tablet (20 sources) Vitamin K Antagonist Start: 06-06-2025 End: 08-18-2025 take 1 tablet by mouth once daily Warfarin 5 mg tablet Discontinued 5 mg PO daily June 06, 2025 12:00am August 18, 2025 3:07pm Start: 03-19-2025 warfarin (COUM ZENAIDA) 5 mg tablet 1.5 tabs for three days and then go to taking 1.5 tabs on , sat and 1 tab all other days. 60 tablet 5 03/19/2025 Active Start: 07-18-2024 End: 01-15-2025 warfarin (COUMADIN) 5 mg tab let Indications: History of pulmonary embolus (PE) Starting today 08/12/24 have patient start taking 5 mg Mon, Wed, , Mon, Mon and 7.5 mg on Tu, Sat. 60 tablet 5 08/12/2024 01/15/2025 Discontinued Problems Active Problems Problem Classification Problem Date Documented Da te Episodic/Chronic Abdominal hernia (20 sources) Diaphragmatic hernia; Translations: [Diaphragmatic hernia without obstruction or gangrene] Onset: 3 02-25-2020 Episodic Bacterial infection; unspecified site (13 sources) Infection due to ESBL Escherichia coli; Translations: [Other bacterial infections of unspecified site] 10-03-2018 Episodic Cardiac dysrhythmias (18 sources) Cardiac arrhythmia; Translations: [Cardiac arrhythmia, unspecified] Onset: 5 10-03-2018 Chronic Conditions associated with dizziness or vertigo (12 sources) Benign paroxysmal positional vertigo; Translations: [Benign paroxysmal vertigo, unspecified ear] Onset: 5 04-13-2025 Episodic Digestive congenital anomalies (20 sources) Ectopic gastric mucosa - multiple sites; Translations: [Other specified congenital malformations of stomach] Onset: 2 05-06-2022 Chronic Diseases of white blood cells (12 sources) Leukocytosis; Translations: [Elevated white blood cell count, unspecified] 04-10-2024 Chronic Disorders of lipid metabolism (20 sources) Hyperlipidemia; Translations: [Hyperlipidemia, unspecified] Onset: 8 Chronic Esophageal disorders (20 sources) Gastroesophageal reflux disease without esophagitis; Translations: [Gastro-esophageal reflux disease without esophagitis] Onset: 8 Chronic Essential hypertension (20 sources) Essential hypertension; Translations: [Essential (primary) hypertension] Onset: 6 Chronic Fluid and electrolyte disorders (12 sources) Hypokalemia; Translations: [Hypokalemia] 04-05-2024 Episodic Genitourinary symptoms and ill-defined conditions (20 sources) History of recurrent urinary tract infection; Translations: [Personal history of urinary (tract) infections] Onset: 8 01-08-2019 Episodic Headache; including migraine (20 sources) Migraine without aura, not refractory ; Translations: [Migraine without aura, not intractable, without status migrainosus] Onset: 6 Chronic Immunizations and screening for infectious disease (4 sources) Vaccination needed; Translations: [Encounter for immunization] Onset: 5 Episodic Inflammatory diseases of female pelvic organs (9 sources) Chronic vaginitis; Translations: [Subacute and chronic vaginitis] 05-08-2024 Episodic Malaise and fatigue (1 source) Other fatigue; Translations: [Fatigue, unspecified type] Onset: 5 Episodic Menopausal disorders (20 sources) Atrophic vaginitis; Translations: [Postmenopausal atrophic vaginitis] Onset: 2 07-20-2016 Chronic Nausea and vomiting (15 sources) Nausea, vomiting and diarrhea; Translations: [Nausea with vomiting, unspecified] Onset: 5 04-01-2024 Episodic Other circulatory disease (20 sources) Clearing throat - hawking; Translations: [Other specified symptoms and signs involving the circulatory and respiratory systems] Onset: 8 08-23-2019 Episodic Other circulatory disease (4 sources) Other specified symptoms and signs involving the circulatory and respiratory systems; Translations: [Other respiratory abnormalities] Onset: 3 Episodic Other circulatory disease (4 sources) Abnormal chest sounds; Translations: [Other specified symptoms and signs involving the circulatory and respiratory systems] Episodic Other circulatory disease (1 source) Hemorrhage, not elsewhere classified; Translations: [Bleeding] Onset: 5 Episodic Other diseases of bladder and urethra (20 sources) Mass of urinary bladder; Translations: [Other specified disorders of bladder] Onset: 4 07-20-2016 Chronic Other female genital disorders (1 source) Vaginal discomfort; Translations: [Unspecified condition associated with female genital organs and menstrual cycle] 05-28-2025 Episodic Other female genital disorders (1 source) Pruritus of vagina; Translations: [Other specified noninflammatory disorders of vagina] 06-03-2025 Episodic Other gastrointestinal disorders (1 source) Dysphagia, unspecified; Translations: [Dysphagia, unspecified] Onset: Episodic Other gastrointestinal disorders (6 sources) Diarrhea; Translations: [Diarrhea, unspecified] 04-05-2024 Episodic Other gastrointestinal disorders (6 sources) Intermittent dysphagia; Translations: [Other dysphagia] 08-18-2025 Episodic Other lower respiratory disease (20 sources) Cough; Translations: [Cough] Episodic Other lower respiratory disease (20 sources) Hypoxia; Translations: [Hypoxemia] Onset: 4 04-15-2024 Episodic Other lower respiratory disease (2 sources) Dyspnea; Translations: [Dyspnea, unspecified] 04-30-2024 Episodic Other lower respiratory disease (1 source) Hypoxemia; Translations: [Hypoxemia] 07-22-2024 Episodic Other lower respiratory disease (1 source) Respiratory tract infection; Translations: [Other specified respiratory disorders] 01-15-2025 Episodic Other lower respiratory disease (1 source) H/O: respiratory disease; Translations: [Personal history of other diseases of the respiratory system] 01-31-2025 Episodic Other nervous system disorders (1 source) Numbness and tingling sensation of skin; Translations: [Anesthesia of skin] 04-09-2021 Episodic Other nervous system disorders (2 sources) Burning sensation of vagina; Translations: [Other specified conditions associated with female genital organs and menstrual cycle] 06-02-2025 Episodic Other screening for suspected conditions (not mental disorders or infectious disease) (20 sources) Mammography abnormal; Translations: [Other abnormal and inconclusive findings on diagnostic imaging of breast] Onset: 5 06-10-2024 Episodic Other skin disorders (20 sources) Lichen sclerosus et atrophicus; Translations: [Circumscribed scleroderma] Onset: 7 03-03-2017 Chronic Other upper respiratory disease (20 sources) Seasonal allergy; Translations: [Other seasonal allergic rhinitis] Onset: 6 Chronic Other upper respiratory disease (1 source) Other seasonal allergic rhinitis; Translations: [Seasonal allergies] Onset: 5 Chronic Other upper respiratory infections (1 source) Chronic sinusitis, unspecified; Translations: [Unspecified sinusitis (chronic)] 09-12-2023 Chronic Other upper respiratory infections (8 sources) Upper respiratory infection; Translations: [Acute upper respiratory infection, unspecified] Onset: 5 08-09-2023 Episodic Pneumonia (except that caused by tuberculosis or sexually transmitted disease) (2 sources) Bacterial pneumonia; Translations: [Unspecified bacterial pneumonia] Onset: 5 07-10-2025 Episodic Pulmonary heart disease (2 sources) Chronic pulmonary embolism; Translations: [Chronic pulmonary embolism] 05-21-2024 Chronic Residual codes; unclassified (1 source) Procedure and treatment not carried out due to patient leaving prior to being seen by health care provider; Translations: [Procedure and treatment not carried out due to patient leaving prior to being seen by health care provider] Onset: 5 Episodic Residual codes; unclassified (1 source) Chills (without fever); Translations: [Chills] Onset: 5 Episodic Respiratory failure; insufficiency; arrest (adult) (20 sources) Chronic hypoxemic respiratory failure; Translations: [Chronic respiratory failure with hypoxia] Onset: 4 Resolved: 4 04-15-2024 Chronic Respiratory failure; insufficiency; arrest (adult) (1 source) Acute hypoxemic respiratory failure; Translations: [Acute respiratory failure with hypoxia] 04-19-2024 Episodic Screening and history of mental health and substance abuse codes (2 sources) Encounter for screening examination for other mental health and behavioral disorders; Translations: [Encounter for screening for depression] Onset: 5 Episodic Syncope (5 sources) Near syncope; Translations: [Syncope and collapse] Onset: 5 08-02-2025 Episodic Thyroid disorders (20 sources) Thyroid nodule; Translations: [Nontoxic single thyroid nodule] Onset: 6 02-01-2018 Chronic Unclassified (1 source) Other specified disease of esophagus; Translations: [Other specified disease of esophagus] Onset: 3 Viral infection (1 source) COVID-19; Translations: [COVID-19] Onset: 5 Past or Other Problems Problem Classification Problem Date Documented Date Episodic/Chronic Administrative/social admission (20 sources) Advance directive discussed with patient; Translations: [Other specified counseling] Onset: 01-16-2023 Episodic Diabetes mellitus without complication (20 sources) Hyperglycemia; Translations: [Impaired fasting glucose] Onset: 08-14-2018 Episodic Hemorrhoids (20 sources) Hemorrhoids; Translations: [Unspecified hemorrhoids] Onset: 03-03-2017 03-03-2017 Episodic Open wounds of extremities (2 sources) Laceration without foreign body of right upper arm, subsequent encounter; Translations: [Other specified aftercare] Onset: 01-14-2025 01-14-2025 Episodic Other aftercare (20 sources) Patient encounter status; Translations: [Other equipment [employer] (current) drug therapy] Onset: 07-20-2016 Episodic Other aftercare (20 sources) Long-term current use of anticoagulant; Translations: [care home (current) use of anticoagulants] Onset: 03-21-2025 07-22-2024 Episodic Other aftercare (1 source) 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; Translations: [care home (current) use of anticoagulants] Onset: 03-21-2025 Episodic Other aftercare (1 source) Other [facility] (current) drug therapy; Translations: [Medication management] Onset: 04-16-2020 Episodic Other circulatory disease (20 sources) History of subdural hematoma; Translations: [Personal history of other diseases of the circulatory system] Onset: 03-03-2017 03-03-2017 Episodic Other circulatory disease (20 sources) Elevated blood-pressure reading without diagnosis of hypertension; Translations: [Elevated blood-pressure reading, without diagnosis of hypertension] Onset: 01-14-2008 Resolved: 06-20-2016 06-20-2016 Episodic Other female genital disorders (1 source) Other specified noninflammatory disorders of vagina; Translations: [Vaginal itching] Onset: 06-03-2025 Episodic Other female genital disorders (1 source) Unspecified condition associated with female genital organs and menstrual cycle; Translations: [Vaginal discomfort] Onset: 05-28-2025 Episodic Other lower respiratory disease (20 sources) Multiple nodules of lung; Translations: [Other nonspecific abnormal finding of lung field] Onset: 10-03-2016 02-01-2018 Episodic Pulmonary heart disease (20 sources) H/O: pulmonary embolus; Translations: [Personal history of pulmonary embolism] Onset: 04-08-2024 04-08-2024 Episodic Residual codes; unclassified (20 sources) Active living will ; Translations: [Other specified health status] Onset: 01-16-2023 01-16-2023 Episodic Spondylosis; intervertebral disc disorders; other back problems (20 sources) Spinal stenosis of lumbar region; Translations: [Spinal stenosis, lumbar region without neurogenic claudication] Onset: 03-21-2012 07-20-2016 Episodic Urinary tract infections (20 sources) Urinary tract infectious disease; Translations: [Urinary tract infection, site not specified] Onset: 02-26-2025 05-12-2023 Episodic Viral infection (10 sources) Disease caused by 2019-nCoV; Translations: [COVID-19] Onset: 03-17-2025 08-10-2023 Episodic Results Test Name Value Interpretation Reference Range Facility Cardiology Visit Reporton Cardiology Visit Report [facility] [address] [place] [address] OFFICE VISIT Date of Service: 09/16/25 MR#: [id number] Acct: [id number] Name: GREGG FERRIS Rep #: [id number] : 1945 Provider: PATRICIA forbes Age/Sex: 80/F [place] [facility] [place] Signed HPI HPI History of Present Illness Details: This is an 80-year-old female who presents today for a posthospital follow-up. She was seen in consultation in April 2024 when she was diagnosed with bilateral pulmonary embolism. At that time, she underwent an echocardiogram that showed LV function 55 to 60%, normal right ventricle, and no hemodynamically significant valve disease. She was seen in the emergency room on 07/22/2025 for a general illness. She underwent an event monitor with primary care provider for 12 days. It predominantly showed sinus rhythm with multiple ventricular runs with longest run of 9.1 seconds. She tried metoprolol tartrate 12.5 mg p.o. twice daily and had worsening lightheadedness, dizziness, and fatigue. For her pulmonary embolism, she is currently treated with Eliquis therapy. She denies chest, arm, jaw, or neck discomfort. She denies palpitation or bilateral lower extremity edema. She denies shortness of breath activity, shortness of breath at rest, orthopnea, cough, or PND. She denies lightheadedness, dizziness, near-syncope, or syncope. She denies fatigue. She states she is active and feels well. Intake Vital Signs 08/22/25 14:32 09/05/25 14:19 09/16/25 07:35 Height 5 ft 3 in 5 ft 3 in 5 ft 3 in Weight: 135 lb BMI 23.9 BP 154/91 H Blood Pressure Location Lt brachial Position Sitting Respiration 18 Pulse 97 Pulse Source Monitor Pulse Oximetry (%) 98 Intake Visit Reasons: SVT Compliance Lead Required: No Is patient in pain?: No Allergies No Known Allergies Allergy (Verified 09/16/25 14:53) Medications ???Medication ???Instructions ???Recorded ???Confirmed ???Type ascorbic acid (vitamin C) 1,000 mg 1 cap PO QHS vitamin 04/07/22 History capsule,extended release simvastatin 10 mg tablet 10 mg PO DAILY cholesterol 4 09/16/25 History sumatriptan succinate 100 mg tablet 100 mg PO Q2H PRN migraine head ache 11/08/23 09/16/25 History d-mannose 500 mg capsule 2,000 mg PO DAILY 11/08/24 5 History cholecalciferol (vitamin D3) 25 25 mcg PO QDAY 06/06/25 09/16/25 H istory mcg (1,000 unit) capsule vitamins A,C,I-ldts-ygaawx 4,296 1 cap PO BID 06/06/25 09/16/25 His tory mcg-226 mg-90 mg capsule (PreserVision AREDS) apixaban 2.5 mg tablet (Eliquis) 2.5 mg PO BID 08/18/25 09/16/25 Hi story ondansetron 4 mg disintegrating 4 mg PO Q6H PRN nausea and 5 09/16/25 Rx tablet vomiting #60 tabs estradiol 0.01% (0.1 mg/gram) 1 g vaginal 3XW 08/22/25 09/16/25 History vaginal cream famotidine 20 mg tablet 20 mg PO QDAY 09/16/25 09/16/25 Hi story Have you fallen in the past year?: No PFSH Medical History Viral illness Leukocytosis UTI (urinary tract infection) Cough Post-menopausal Alcohol use History of steroid therapy Easy bruising PONV (postoperative nausea and vomiting) Non-smoker Cardiology follow-up encounter History of echocardiogram History of stress test Hypertension Hx of migraines UTI (urinary tract infection) DDD (degenerative disc disease), lumbar Spinal stenosis Chronic back pain Cystitis GERD (gastroesophageal reflux disease) Infection due to ESBL-producing Escherichia coli Essential (primary) hypertension Hyperlipidemia Surgical History History of back surgery S/P subdural hematoma evacuation History of appendectomy History of laparoscopic cholecystectomy History of hysterectomy Family History Mother Heart disease Father Heart disease Brother Heart disease CAD (coronary artery disease) Social History household members: spouse housing: house Smoking Status: Never smoker ROS Const Const: Negative for fatigue, weakness, headache(s) or frequent falls Eyes Eyes: Negative for blurry vision ENT ENT: Negative for headache(s), dizziness or Nosebleed/epistaxis Cardio Chest Pain: No Palpitations: No Edema: None Muscle aches with walking: None Resp Respiratory: Negative for SOB with activity, SOB at rest or SOB orthopnea SOB lying down GI GI: Negative nausea, vomiting, heartburn, bright, red blood in stools or black,tarry stools : Negative for hematuria Musc Musc: Negative for muscle aches/ myalgia Skin Skin: Negative non-healing lesions or rash Neuro N (more content not included)... Normal [facility] CNPNon 09-10-2025 CNPN Normal [facility] Office Visit Reporton [address] [facility] [address] [place] [address] OFFICE VISIT Date of Service: 09/03/25 MR#: [id number] Acct: [id number] Patient: GREGG FERRIS Rep #: [id number] : 1945 Provider: Dr. Mala Francisco i, MD Age/Sex: 79/F Location: [facility] Status: Signed Intake Vital Signs 08/22/25 14:32 Height 5 ft 3 in Weight: 135 lb BMI 23.9 BP 142/84 H Pulse 80 Temp 98 F Intake Visit Reasons: urine drop Chief Complaint: Acute urinary tract infection symptoms Allergies No Known Allergies Allergy (Verified 07/28/25 16:38) Have you fallen in the past year?: No Nurse's Note: patient is here for cath urine specimen and vaginal culture per HKW to determine where the glabrata is coming from. Office Procedures Straight Cath Procedure Completed: Yes Straight Cath: The urethra was cleansed with betadine. A 14Fr catheter was inserted into the urethra using sterile technique. The bladder was drained of 35cc of clear urine. The patient tolerated the procedure well. Nursing Note vaginal swab sent for culture Assessment and Plan Assessment and Plan (1) UTI (urinary tract infection): Status: Acute Qualifiers: Urinary tract infection type: acute cystitis Hematuria presence: without hematuria Qualified Code(s): N30.00 - Acute cystitis without hematuria (2) Acute vaginitis: Status: Acute Orders: Orders POC UA Auto w/o Microscopy 09/03/25 N30.00 - Acute cystitis without hematuria Straight Cath 09/03/25 N30.00 - Acute cystitis without hematuria Clinical Quality Measures Falls Risk Screening/Assistive Devices Have you fallen in the past year?: No 09/04/25 1113 Date Mala Coello MD Cosigner Signature: Date (if applicable) CC: Normal [facility] Office Visit Reporton 2024 Office Visit Report [facility] [place] [address] OFFICE VISIT Date of Service: 09/01/25 MR#: [id number] Acct: [id number] Patient: GREGG FERRIS Rep #: [id number] : 1945 Provider: Dr. Mala Francisco i, MD Age/Sex: 79/F Location: [facility] Status: Signed Intake Vital Signs 08/22/25 14:32 Height 5 ft 3 in Weight: 135 lb BMI 23.9 BP 142/84 H Pulse 80 Temp 98 F Intake Visit Reasons: UA C S Chief Complaint: Acute urinary tract infection symptoms Allergies No Known Allergies Allergy (Verified 07/28/25 16:38) Have you fallen in the past year?: No Nursing Note Patient still having frequency, urgency and burning with urination. No fever, no hematuria and no vomiting. Clinical Quality Measures Falls Risk Screening/Assistive Devices Have you fallen in the past year?: No 09/02/252207 Date Mala Coello MD Cosigner Signature: Date (if applicable) CC: Normal [facility] CNOVon 08-29-2025 CNOV Normal [facility] Laboratory - Chemistry and C hemistry - challengeOrdered By: Mala Coello on 08-22-2025 Bilirubin Ql (U) Negative [facility] Glucose Ql (U) Negative [facility] Ketones Ql (U) Negative [facility] pH (U) 6 [pH] [facility] Specific gravity (U) [Rel density] 1.010 [facility] Urobilinogen (U) [Mass/Vol] 0.1929702 mg/dL [facility] Laboratory - Hematology and Cell countsOrdered By: Mala Coello on 08-22-2025 Hemoglobin Ql (U) Negative [facility] Laboratory - Specimen inform ationOrdered By: Mala Coello on 08-22-2025 Color (U) YELLOW [facility] Laboratory - UrinalysisOrder ed By: Mala Coello on 08-22-2025 Nitrite Ql (U) Negative [facility] Protein Ql (U) Negative [facility] MR/Debbie 08-22-2025 MR/JUJU [facility] [address], [address] [place] [address] OFFICE VISIT Date of Service: 08/22/25 MR#: [id number] Acct: [id number] Name: GREGG FERRIS Rep #: [id number] : 1945 Provider: Dr. Mala Francisco i, MD Age/Sex: 79/F Location: [facility] Status: Signed Intake Vital Signs 07/28/25 16:38 08/22/25 14:32 Height 5 ft 3 in 5 ft 3 in Weight: 135 lb 135 lb BMI 23.9 23.9 BP 177/99 H 142/84 H Respiration 16 Pulse 97 80 Temp 98.3 F 98 F Temp Source Oral Pulse Oximetry (%) 98 Intake Visit Reasons: UTI/needs to discuss ABX with Dr. Coello Compliance Lead Required: No Is patient in pain?: No Allergies No Known Allergies Allergy (Verified 07/28/25 16:38) Have you fallen in the past year?: No PFSH Medical History Viral illness Leukocytosis UTI (urinary tract infection) Cough Post-menopausal Alcohol use History of steroid therapy Easy bruising PONV (postoperative nausea and vomiting) Non-smoker Cardiology follow-up encounter History of echocardiogram History of stress test Hypertension Hx of migraines UTI (urinary tract infection) DDD (degenerative disc disease), lumbar Spinal stenosis Chronic back pain Cystitis GERD (gastroesophageal reflux disease) Infection due to ESBL-producing Escherichia coli Essential (primary) hypertension Hyperlipidemia Surgical History History of back surgery S/P subdural hematoma evacuation History of appendectomy History of laparoscopic cholecystectomy History of hysterectomy Family History Mother Heart disease Father Heart disease Brother Heart disease CAD (coronary artery disease) Social History household members: spouse housing: house Smoking Status: Never smoker HPI HPI Urology Details: GREGG FERRIS, is a 79 F. She is having chills, nausea, decreased appetite. She recently saw GI and was diagnosed with esophageal yeast and is on liquid solution for this. She has had sensation of urinary tract infection with inconclusive culture results. She stopped in yesterday for a PCR culture that grew glabrata. She was supposed to have stopped her nightly antibiotic in June, but she was afraid to do that. She is compliant with D-mannose, estrogen cream, vitamin C, and she stopped her probiotics as they were not recommended with her anticoagulation. ROS Const Constitutional: Positive for chills; No fatigue, fever(s), headache(s), night sweats, weakness, weight change, abnormal sleep pattern or change in appetite Eyes Eyes: No change in vision ENT ENT: No headache(s) or dry mouth Resp Respiratory: No cough, chest congestion, shortness of breath or wheezing Cardio Cardiology: Positive for other (No chest pain.); No shortness of breath, irregular heart rhythm or lightheadedness Gastro GI: Positive for other (No nausea.); No abdominal pain, change in bowel habits, constipation, diarrhea or vomiting Genitourinary-Female: Positive for other (See HPI); No difficulty urinating or urinary frequency Musc Musculoskeletal: No abnormal gait Skin Skin: No yellowing of the eye, lesions, itchy eyes, rash or skin ulcer Neuro Neurology: No abnormal gait, confusion, dizziness, weakness, headache(s) or memory loss Psych Psychiatric: No abnormal sleep pattern, No change in appetite, No confusion and No memory loss Endo Endocrine: No fatigue, increased thirst/drinking or weight change Aller/Imm Allergy/Immunologic: No itchy eyes or wheezing Jose/Lymp Hematologic/Lymphatic: No easy bleeding or enlarged lymph nodes Exam Const General: cooperative, healthy appearing, comfortable and no acute distress [facility] Head: normocephalic and atraumatic Ears: hearing grossly normal bilaterally and external ears normal Nose: external nose normal Eyes General: appearance normal, both eyes and all related structures Neck Neck: normal visual inspection and trachea midline Chest Chest palpation inspection: normal inspection of the chest Resp Effort Inspection: normal respiratory effort, able to speak in complete sentences and symmetric chest movement Cardio Rate: regular rate GI Inspection: normal to inspection Palpation: soft and nontender General: No CVA tenderness Skin General: no rashes or lesions noted Neuro General: patient alert, patient awake, patient oriented x3 and CN's II-XI intact bilaterally Extrem General: normal to inspection Psych Appearance: grossly normal and well kempt Mental Status: mental status grossly normal Results POC UA Auto w/o Microscopy Office Urine Color YELLOW Last Jey (more content not included)... Normal [facility] No Panel InformationOrdered By: Mala Coello on 08-22-2025 Urine Leukocytes Negatve [facility] Bacteria Ur Culton Bacteria identified Cx Nom (U) Abnormal [facility] Comment on above: Performed By: #### 6 30-4 ####[facility] LABCLIA [id number] [place] [id number] [place] CNOVon 08-20-2025 CNOV Normal [facility] Gastroenterology Visit Repor ton 08-18-2025 Gastroenterology Visit Report [facility] [address] [place] [address] OFFICE VISIT Date of Service: 08/18/25 MR#: [id number] Acct: [id number] Name: GREGG FERRIS Rep #: [id number] : 1945 Provider: Zane Granado DO Age/Sex: 79/F Location: [facility] Status: Signed Intake Vital Signs 07/22/25 11:37 07/28/25 16:38 Height 5 ft 3 in 5 ft 3 in Intake Visit Reasons: Nausea/vomiting Allergies No Known Allergies Allergy (Verified 07/28/25 16:38) Medications ???Medication ???Instructions ???Recorded ???Confirmed ???Type ascorbic acid (vitamin C) 1,000 mg 1 cap PO QHS vitamin 04/07/22 History capsule,extended release simvastatin 10 mg tablet 10 mg PO DAILY cholesterol 4 08/18/25 History sumatriptan succinate 100 mg tablet 100 mg PO Q2H PRN migraine head ache 11/08/23 08/18/25 History cephalexin 250 mg capsule 250 mg PO QHS 11/08/24 08/18/25 Hi story d-mannose 500 mg capsule 2,000 mg PO DAILY 11/08/24 5 History cholecalciferol (vitamin D3) 25 25 mcg PO QDAY 06/06/25 08/18/25 H istory mcg (1,000 unit) capsule vitamins A,C,E-xmxi-bmjfnn 4,296 1 cap PO BID 06/06/25 08/18/25 His tory mcg-226 mg-90 mg capsule (PreserVision AREDS) apixaban 2.5 mg tablet (Eliquis) 2.5 mg PO BID 08/18/25 08/18/25 Hi story nystatin 100,000 unit/mL oral 1 ml PO TID 14 days #42 mL 5 08/18/25 Rx suspension ondansetron 4 mg disintegrating 4 mg PO Q6H PRN nausea and 5 08/18/25 Rx tablet vomiting #60 tabs Have you fallen in the past year?: No PFSH Medical History Viral illness Leukocytosis UTI (urinary tract infection) Cough Post-menopausal Alcohol use History of steroid therapy Easy bruising PONV (postoperative nausea and vomiting) Non-smoker Cardiology follow-up encounter History of echocardiogram History of stress test Hypertension Hx of migraines UTI (urinary tract infection) DDD (degenerative disc disease), lumbar Spinal stenosis Chronic back pain Cystitis GERD (gastroesophageal reflux disease) Infection due to ESBL-producing Escherichia coli Essential (primary) hypertension Hyperlipidemia Surgical History History of back surgery S/P subdural hematoma evacuation History of appendectomy History of laparoscopic cholecystectomy History of hysterectomy Family History Mother Heart disease Father Heart disease Brother Heart disease CAD (coronary artery disease) Social History household members: spouse housing: house Smoking Status: Never smoker HPI HPI Details: GREGG FERRIS, is a 79 F who presents to the office today for follow up. Esophagram 05.23.17???tablet becomes trapped at GEJ ?Upper GI series 03.19.18???small sliding hiatal hernia; no reflux ?EGD with Zuniga 04.04.18???small hiatal hernia. ? Zuniga total [place] 10.1; Day 1 [place] 3.6; Day 2 [place] 15.4 ?CT abd/pel 12.26.18???colonic diverticulosis; s/p cholecystectomy; splenic cyst. ENT established: ?Laryngoscopy 01.01.22???severe edema of interarytenoid space *BGI established 03.04.22 referral from ENT to evaluate GERD with frequent throat clearing and coughing. Heartburn sensation is minimal and uses PRN Gaviscon which is helpful; omeprazole 40mg QD ineffective. 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 Znuiga total [place] 13.7; Day 1 [place] 11.8 upright > supine; Day 2 [place] 15.5 upright > supine OV 6.30.22???Start sucralfate and PPI taper ?Esophagram 7..22???small sliding hiatal hernia without GERD 2.. Dr. 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 She still struggles with throat clearing during the day but is not as bad as it used to be. Does not have any heartburn, reflux, nausea or abdominal pain. Would like to have RFA repeated. (more content not included)... Normal [facility] CNOVon 08-12-2025 CNOV Normal [facility] ECG COMPLETEon 08-12-2025 ECG COMPLETE Normal [facility] PROTEIN ELECTROPHORESIS SERU M (P)on 08-12-2025 Albumin [Mass/Vol] 4.40 g/dL Normal 3.43-5.41 [facility] Comment on above: Order Comment: Speci men Type: BLOOD SPECIMENOrdering Facility: [facility] Address: [address] [place] [address] [place] [address] Performed By: #### L [id number] ####[facility] LABIA [id number] [place] [address] [place] Alpha 1 globulin Elph [Mass/Vol] 0.32 g/dL Normal 0.18-0.43 [facility] Comment on above: Order Comment: Speci men Type: BLOOD SPECIMENOrdering Facility: [facility] Address: [address] [place] [address] Performed By: #### L [id number] ####[facility] LABIA [id number] [place] [address] [place] Alpha 2 globulin Elph [Mass/Vol] 0.66 g/dL Normal 0.42-0.98 [facility] Comment on above: Order Comment: Speci men Type: BLOOD SPECIMENOrdering Facility: [facility] Address: [address] [place] [address] Performed By: #### L [id number] ####[facility] LABIA [id number] [place] [address] [place] Beta globulin Elph [Mass/Vol] 0.76 g/dL Normal 0.61-1.17 [facility] Comment on above: Order Comment: Speci men Type: BLOOD SPECIMENOrdering Facility: [facility] Address: [address] [place] [address] Performed By: #### L [id number] ####[facility] LABIA [id number] [place] [address] [place] Gamma globulin Elph [Mass/Vol] 0.65 g/dL Normal 0.53-1.51 [facility] Comment on above: Order Comment: Speci men Type: BLOOD SPECIMENOrdering Facility: [facility] Address: [address] [place] [address] Performed By: #### L [id number] ####[facility] LABIA [id number] [place] [address] [place] M-PROTEIN LOCATION Normal [facility] Comment on above: Order Comment: Speci men Type: BLOOD SPECIMENOrdering Facility: [facility] Address: [address] [place] [address] Result Comment: Not Applicable. Performed By: #### L [id number] ####[facility] LABCLIA [id number] [address] [place] [address] [place] Protein Fractions [Interp] No definitive M protein is identified on protein electrophoresis. Normal No definitive M protein is identified on protein electrophores is. [facility] Comment on above: Order Comment: Speci men Type: BLOOD SPECIMENOrdering Facility: [facility] Address: [address] [place] [address] Performed By: #### L [id number] ####[facility] LABCLIA [id number] [place] [address] [place] Protein.monoclonal Elph [Mass/Vol] 0.00 g/dL Normal <=0.00 [facility] Comment on above: Order Comment: Speci men Type: BLOOD SPECIMENOrdering Facility: [facility] Address: [address] [place] [address] Performed By: #### L [id number] ####[facility] LABCLIA [id number] [address], [facility] [place] STAFF REVIEW Reviewed by Anita Huntley MD Normal [facility] Comment on above: Order Comment: Speci men Type: BLOOD SPECIMENOrdering Facility: [facility] Address: [address] [place] [address] Performed By: #### L [id number] ####[facility] LABCLIA [id number] [place] [id number] [place] Prot SerPl-mCncon 08-12-2025 Protein [Mass/Vol] 6.8 g/dL Normal 6.3-8.0 [facility] Comment on above: Order Comment: Speci men Type: BLOOD SPECIMENOrdering Facility: [facility] Address: [address] [place] [address] Performed By: #### 2 885-2, 3024-7, 3016-3 ####[facility] LABIA [id number] [place] [address] [place] Prot Ur-mCncon 08-12-2025 Protein (U) [Mass/Vol] 15 mg/dL Normal 0-20 Cl [facility] Comment on above: Order Comment: Speci men Type: URINE SPECIMENOrdering Facility: [facility] Address: [address] [place] [address] Performed By: #### 2 888-6 ####[facility] LABIA [id number] [place] [address] [place] T4 Free SerPl-mCncon 025 Free T4 [Mass/Vol] 1.2 ng/dL Normal 0.9-1.7 [facility] Comment on above: Order Comment: Speci men Type: BLOOD SPECIMENOrdering Facility: [facility] Address: [address] [place] [address] Performed By: #### 2 885-2, 3024-7, 3015-3 ####[facility] LABIA [id number] [place] [address] [place] TSH SerPl-aCncon 08-12-2025 TSH Qn 1.180 m[IU]/L Normal 0.270-4.200 [facility] Comment on above: Order Comment: Speci men Type: BLOOD SPECIMENOrdering Facility: [facility] Address: [address] [place] [address] Performed By: #### 2 885-2, 3024-7, 3016-3 ####[facility] LABIA [id number] [place] [address] [place] URINE PROTEIN ELECTROPHORESI S RANDOM (P)on 08-12-2025 Albumin Elph (U) [Mass fraction] 39.16 % Normal [facility] Comment on above: Order Comment: Speci men Type: URINE SPECIMENOrdering Facility: [facility] Address: [address] [place], [place] [id number] Performed By: #### L [id number] ####[facility] LABCLIA [id number] [address] [place] [address] [place] Alpha 1 globulin Elph (U) [Mass fraction] 4.82 % Normal [facility] Comment on above: Order Comment: Speci men Type: URINE SPECIMENOrdering Facility: [facility] Address: [address] [place], [place] [id number] Performed By: #### L [id number] ####[facility] LABCLIA [id number] [address] [address] [place] Alpha 2 globulin Elph (U) [Mass fraction] 13.52 % Normal [facility] Comment on above: Order Comment: Speci men Type: URINE SPECIMENOrdering Facility: [facility] Address: [address] [place] [address] Performed By: #### L [id number] ####[facility] LABCLIA [id number] [place] [id number] [place] Beta globulin Elph (U) [Mass fraction] 27.24 % Normal [facility] Comment on above: Order Comment: Speci men Type: URINE SPECIMENOrdering Facility: [facility] Address: [address] [place] [address] Performed By: #### L [id number] ####[facility] LABCLIA [id number] [address] [place] [address] [place] Gamma globulin Elph (U) [Mass fraction] 15.26 % Normal [facility] Comment on above: Order Comment: Speci men Type: URINE SPECIMENOrdering Facility: [facility] Address: [address] [place], [place] [id number] Performed By: #### L [id number] ####[facility] LABCLIA [id number] [address] [place] INTERPRETATION COMMENT FOR PROTEIN ELECTROPHORESIS Normal [facility] Comment on above: Order Comment: Speci men Type: URINE SPECIMENOrdering Facility: [facility] Address: [address] [place] [address] Performed By: #### L [id number] ####[facility] LABCLIA [id number] [place] [address] [place] Protein Fractions Elph Con (U) [Interp] No definitive M protein is identified on protein electrophoresis. Normal No definitive M protein is identified on protein electrophores is. [facility] Comment on above: Order Comment: Speci men Type: URINE SPECIMENOrdering Facility: [facility] Address: [address] [place] [address] Performed By: #### L [id number] ####[facility] LABCLIA [id number] [address] [place] STAFF REVIEW (URINE ELECTRO) Reviewed by Anita Huntley MD Normal [facility] Comment on above: Order Comment: Speci men Type: URINE SPECIMENOrdering Facility: [facility] Address: [address] [place] [address] Performed By: #### L [id number] ####[facility] LABCLIA [id number] [place] [address] [place] CNPNon 08-10-2025 CNPN Normal [facility] Bacteria Ur Culton Bacteria identified Cx Nom (U) Normal [facility] Comment on above: Performed By: #### 6 30-4 ####[facility] LABCLIA [id number] [place] [id number] [place] CNOVon 08-09-2025 CNOV Normal [facility] PT panel Coag (PPP)on 2024 INR Coag (PPP) [Relative time] 1.5 {INR} High 0.9-1.3 [facility] Comment on above: Order Comment: Thu aleman Type: BLOOD SPECIMENOrdering Facility: [facility] Address: [address] [place] [id number] Result Comment: Fabiana min K Antagonist (VKA) Therapeutic Range: INR 2 to 3 (Target INR of 2.5)Note: For patients treated with VKA drugs, such as warfarin, the [employer] 2012 Guideline recommends a therapeutic INR range of 2 to 3 (target INR of 2.5). This recommendation includes high-risk patients with antiphospholipid syndrome with previous arterial or venous thromboembolism, current-generation mechanical or bioprosthetic aortic heart valve replacement.Note: Patients with mechanical aortic valve replacement and additional risk factors for thromboembolic events (atrial fibrillation, previous thromboembolism, LV dysfunction, hypercoagulable conditions) or an older generation mechanical AVR (i.e., ball in-Cage) or any mechanical MVR should have a INR therapeutic range of 2.5 to 3.5 (target INR of 3).Raza GH, et al. Chest 2012, 141:7S-47SNishimbeata RA, et al. [facility] 2017, 70: 252-289 Performed By: #### 3 4528-0 ####[facility] [id number] [place] [address] [place] PT Coag (PPP) [Time] 16.2 s High 9.7-13.0 [facility] Comment on above: Order Comment: Thu aleman Type: BLOOD SPECIMENOrdering Facility: [facility] Address: [address] [place] [id number] Performed By: #### 3 4528-0 ####[facility] [id number] [place] [id number] [place] CNPNon 08-01-2025 CNPN Normal [facility] CNOVon 07-28-2025 CNOV Normal [facility] CNPNon 07-28-2025 CNPN Normal [facility] CNOVon 07-24-2025 CNOV Normal [facility] Electrocardiogram reportOrde red By: Mark Leos on 07-23-[address] [facility] Cardi[facility] Services [address] [place] [address] 12 Lead EKG 07/22/25 1221 MR#: [id number] Acct: [id number] Name: GREGG FERRIS Rep #:[id number] : 1945 79 From: Mark Leos MD Attending Dr: Status: REG E R Ordering Dr: Dominic Diaz DO Date: Location: ED Sex: F C Admitted: Test Reason : Blood Pressure : */* mmHG Vent. Rate : 86 BPM Atrial Rate : 86 BPM P-R Int : 162 ms QRS Dur : 76 ms QT Int : 356 ms P-R-T Axes : 37 -11 49 degrees QTcB Int : 426 ms Sinus rhythm with marked sinus arrhythmia Otherwise normal ECG Confirmed by DRAGAN LOREDO, MARK ([id number]), newspaper editor managing CHRISTIAN MADERA ([id number]) on 07/23/2025 9:39:06 AM Referred By: Confirmed By: MARK LEOS MD 07/23/25 0939 Date _ Mark Leos MD CC: Dr. Rangel Bonilla MD; Dr. Dominic Diaz, DO ~ Signed [facility] Other Phone: 12 Lead EKGon 07-22-[address] [facility] Cardi[facility] Services [address] [place] [address] 12 Lead EKG 07/22/25 1221 MR#: [id number] Acct: [id number] Name: GREGG FERRIS Rep #: [id number] : 1945 79 From: Mark Leos MD Attending Dr: Status: REG ER Ordering Dr: Dominic Diaz DO Date: 07/22/25 Location: ED Sex: F C Admitted: Test Reason : Blood Pressure : */* mmHG Vent. Rate : 86 BPM Atrial Rate : 86 BPM P-R Int : 162 ms QRS Dur : 76 ms QT Int : 356 ms P-R-T Axes : 37 -11 49 degrees QTcB Int : 426 ms Sinus rhythm with marked sinus arrhythmia Otherwise normal ECG Confirmed by DRAGAN LOREDO, MARK ([id number]), newspaper editor managing CHRISTIAN MADERA ([id number]) on 07/23/2025 9:39:06 AM Referred By: Confirmed By: MARK LEOS MD 07/23/25938 Date Mark Leos MD CC: Dr. Rangel Bonilla MD; Dr. Dominic Diaz DO Signed Normal [facility] Absolute lymphocyte countOrd ered By: Dominic Diaz on 07-22-2025 Lymphocytes Auto (Unsp spec) [#/Vol] 1.41 10*3/uL 0.83-4.51 [facility] Absolute neutrophil countOrd ered By: Dominic Diaz on 07-22-2025 Neutrophils (Bld) [#/Vol] 4.8 10*3/uL 2.0-7.7 [facility] Activated partial thrombopla stin time (aPTT) in platelet poor plasma by coagulation aOrdered By: Dominic Diaz on 07-22-2025 aPTT Coag (PPP) [Time] 28.0 s 24.1-36.2 [facility] Anion gap in Serum or Plasma Ordered By: Dominic Diaz on 07-22-2025 Anion gap [Moles/Vol] 11 mmol/L 5-15 [facility] Automated lymphocyte count a s percentage of total leukocytesOrdered By: Dominic Diaz on 07-22-2025 Lymphocytes/100 WBC Auto (Unsp spec) 20.9 % - [facility] BUN/creatinine ratioOrdered By: Dominic Diaz on 07-22-2025 Urea nitrogen/Creatinine [Mass ratio] 19.8 mg/mg - [facility] Basic Metabolic Profile (BMP )on 07-22-2025 BUN/CRE 19.8 RATIO Normal - [facility] Comment on above: Performed By: #### L 501.9520, L501.4021, L503.7505, L500.2500, L100.0100, L501.5200 #### [facility] [address] [place], [address] Calcium [Mass/Vol] 9.0 mg/dL Normal 7.6-11.0 [facility] Comment on above: Performed By: #### L 501.9520, L501.4021, L503.7505, L500.2500, L100.0100, L501.5200 #### [facility] [address] [place], [address] Chloride [Moles/Vol] 107 mmol/L Normal 98-108 [facility] Comment on above: Performed By: #### L 501.9520, L501.4021, L503.7505, L500.2500, L100.0100, L501.5200 #### [facility] [address] [place], [address] CO2 [Moles/Vol] 21.6 mmol/L Normal 21.0-32.0 [facility] Comment on above: Performed By: #### L 501.9520, L501.4021, L503.7505, L500.2500, L100.0100, L501.5200 #### [facility] [address] [place], [address] Creatinine [Mass/Vol] 0.85 mg/dL Normal 0.70-1.20 [facility] Comment on above: Performed By: #### L 501.9520, L501.4021, L503.7505, L500.2500, L100.0100, L501.5200 #### [facility] [address] [place], [address] ECRCL 46.58 ml/min Low 50-250 [facility] Comment on above: Performed By: #### L 501.9520, L501.4021, L503.7505, L500.2500, L100.0100, L501.5200 #### [facility] [address] [place], [address] GAP 11 Normal 5-15 [facility] Comment on above: Performed By: #### L 501.9520, L501.4021, L503.7505, L500.2500, L100.0100, L501.5200 #### [facility] [address] [place], [address] GFR/1.73 sq M.predicted among non-blacks MDRD (S/P/Bld) [Vol rate/Area] 69 mL/min/{1.73_m2} Normal >60 [facility] Comment on above: Result Comment: mL/m in/1.73m2 CKD-EPI Creatinine Equation (2020) Performed By: #### L 501.9520, L501.4021, L503.7505, L500.2500, L100.0100, L501.5200 #### [facility] [address] [place], [address] Glucose [Mass/Vol] 108 mg/dL High 70-99 [facility] Comment on above: Performed By: #### L 501.9520, L501.4021, L503.7505, L500.2500, L100.0100, L501.5200 #### [facility] [address] [place], [address] Potassium [Moles/Vol] 3.9 mmol/L Normal 3.3-5.1 [facility] Comment on above: Performed By: #### L 501.9520, L501.4021, L503.7505, L500.2500, L100.0100, L501.5200 #### [facility] [address] [place], [address] Sodium [Moles/Vol] 140 mmol/L Normal 133-145 [facility] Comment on above: Performed By: #### L 501.9520, L501.4021, L503.7505, L500.2500, L100.0100, L501.5200 #### [facility] [address] [place], [address] Urea nitrogen [Mass/Vol] 17 mg/dL Normal 4-19 [facility] Comment on above: Performed By: #### L 501.9520, L501.4021, L503.7505, L500.2500, L100.0100, L501.5200 #### [facility] [address] [place], [address] Basophil percentageOrdered B y: Dominic Diaz on 07-22-2025 Basophils/100 WBC (Bld) 0.6 % 0-1 [facility] Bilirubin Test strip Ql (U)O rdered By: Dominic Diaz on 07-22-2025 Bilirubin Ql (U) Negative Negative [facility] CBC W/Diff, Automatedon 07-07 Absolute Lymph 1.41 X10 3/uL Normal 0.83-4.51 [facility] Comment on above: Performed By: #### L 501.9520, L501.4021, L503.7505, L500.2500, L100.0100, L501.5200 #### [facility] [address] [place], [address] Absolute Neut 4.8 X10 3/uL Normal 2.0-7.7 [facility] Comment on above: Performed By: #### L 501.9520, L501.4021, L503.7505, L500.2500, L100.0100, L501.5200 #### [facility] [address] [place], [address] Basophils/100 WBC (Bld) 0.6 % Normal 0-1 [facility] Comment on above: Performed By: #### L 501.9520, L501.4021, L503.7505, L500.2500, L100.0100, L501.5200 #### [facility] [address] [place], [address] Eosinophils/100 WBC (Bld) 0.7 % Normal 0-5 [facility] Comment on above: Performed By: #### L 501.9520, L501.4021, L503.7505, L500.2500, L100.0100, L501.5200 #### [facility] [address] [place], [address] Erythrocyte distribution width (RBC) [Ratio] 12.1 % Normal 11.6-14.6 [facility] Comment on above: Performed By: #### L 501.9520, L501.4021, L503.7505, L500.2500, L100.0100, L501.5200 #### [facility] [address] [place], [address] Hematocrit (Bld) [Volume fraction] 41.5 % Normal 37-47 [facility] Comment on above: Performed By: #### L 501.9520, L501.4021, L503.7505, L500.2500, L100.0100, L501.5200 #### [facility] [address] [place], [address] Hemoglobin (Bld) [Mass/Vol] 13.7 g/dL Normal 12.0-15.0 [facility] Comment on above: Performed By: #### L 501.9520, L501.4021, L503.7505, L500.2500, L100.0100, L501.5200 #### [facility] [address] [place], [address] IG% 0.300 Normal 0.0-0.9 [facility] Comment on above: Result Comment: IG% - Immature Granulocytes (promyelocytes, myelocytes and metamyelocytes) > 1% indicates that a LEFT SHIFT is Present. Performed By: #### L 501.9520, L501.4021, L503.7505, L500.2500, L100.0100, L501.5200 #### [facility] [address] [place], [address] Lymphocytes/100 WBC (Bld) 20.9 % Normal 19-41 [facility] Comment on above: Performed By: #### L 501.9520, L501.4021, L503.7505, L500.2500, L100.0100, L501.5200 #### [facility] [address] [place], [address] MCH (RBC) [Entitic mass] 31.9 pg Normal 27.0-32.0 [facility] Comment on above: Performed By: #### L 501.9520, L501.4021, L503.7505, L500.2500, L100.0100, L501.5200 #### [facility] [address] [place], [address] MCHC (RBC) [Mass/Vol] 33.0 g/dL Normal 32-36 [facility] Comment on above: Performed By: #### L 501.9520, L501.4021, L503.7505, L500.2500, L100.0100, L501.5200 #### [facility] [address] [place], [address] MCV (RBC) [Entitic vol] 96.7 fL Normal 81-99 [facility] Comment on above: Performed By: #### L 501.9520, L501.4021, L503.7505, L500.2500, L100.0100, L501.5200 #### [facility] [address] [place], [address] Monocytes/100 WBC (Bld) 6.4 % Normal 0-10 [facility] Comment on above: Performed By: #### L 501.9520, L501.4021, L503.7505, L500.2500, L100.0100, L501.5200 #### [facility] [address] [place], [address] Neutrophils/100 WBC (Bld) 71.1 % High 47-70 [facility] Comment on above: Performed By: #### L 501.9520, L501.4021, L503.7505, L500.2500, L100.0100, L501.5200 #### [facility] [address] [place], [address] Nucleated RBC (Bld) [#/Vol] 0 10*3/uL Normal 0-5 [facility] Comment on above: Performed By: #### L 501.9520, L501.4021, L503.7505, L500.2500, L100.0100, L501.5200 #### [facility] [address] [place], [address] Platelet mean volume (Bld) [Entitic vol] 10.1 fL Normal 6.2-12.0 [facility] Comment on above: Performed By: #### L 501.9520, L501.4021, L503.7505, L500.2500, L100.0100, L501.5200 #### [facility] [address] [place], [address] Platelets (Bld) [#/Vol] 192 10*3/uL Normal 150-450 [facility] Comment on above: Performed By: #### L 501.9520, L501.4021, L503.7505, L500.2500, L100.0100, L501.5200 #### [facility] [address] [place], [address] RBC (Bld) [#/Vol] 4.29 10*6/uL Normal 4.2-5.4 [facility] Comment on above: Performed By: #### L 501.9520, L501.4021, L503.7505, L500.2500, L100.0100, L501.5200 #### [facility] [address] [place], [address] RDW SD 42.8 fl Normal 35.1-43.9 [facility] Comment on above: Performed By: #### L 501.9520, L501.4021, L503.7505, L500.2500, L100.0100, L501.5200 #### [facility] [address] [place], [address] WBC (Bld) [#/Vol] 6.8 10*3/uL Normal 4.4-11.0 [facility] Comment on above: Performed By: #### L 501.9520, L501.4021, L503.7505, L500.2500, L100.0100, L501.5200 #### [facility] [address] [place], [address] Absolute Neut Normal 2.0-7.7 [facility] Comment on above: Result Comment: SON TARIQ, SPOKE WITH PEPPER Performed By: #### L 501.9520, L501.4021, L503.7505, L500.2500, L100.0100, L501.5200 #### [facility] [address] [place], [address] HCT Normal 37-47 [facility] Comment on above: Result Comment: SON TARIQ, SPOKE WITH PEPPER Performed By: #### L 501.9520, L501.4021, L503.7505, L500.2500, L100.0100, L501.5200 #### [facility] [address] [place], [address] HGB Normal 12.0-15.0 [facility] Comment on above: Result Comment: SON TARIQ, SPOKE WITH PEPPER Performed By: #### L 501.9520, L501.4021, L503.7505, L500.2500, L100.0100, L501.5200 #### [facility] [address] [place], [address] MCH Normal 27.0-32.0 [facility] Comment on above: Result Comment: CLOT CHANDNI, SPOKE WITH PEPPER Performed By: #### L 501.9520, L501.4021, L503.7505, L500.2500, L100.0100, L501.5200 #### [facility] [address] [place], [address] MCHC Normal 32-36 [facility] Comment on above: Result Comment: SON TARIQ, SPOKE WITH PEPPER Performed By: #### L 501.9520, L501.4021, L503.7505, L500.2500, L100.0100, L501.5200 #### [facility] [address] [place], [address] MCV Normal 81-99 [facility] Comment on above: Result Comment: CLOT CHANDNI, SPOKE WITH PEPPER Performed By: #### L 501.9520, L501.4021, L503.7505, L500.2500, L100.0100, L501.5200 #### [facility] [address] [place], [address] NEUT% Normal 47-70 [facility] Comment on above: Result Comment: CLOT CHANDNI, SPOKE WITH PEPPER Performed By: #### L 501.9520, L501.4021, L503.7505, L500.2500, L100.0100, L501.5200 #### [facility] [address] [place], [address] PLT Normal 150-450 [facility] Comment on above: Result Comment: CLOT CHANDNI, SPOKE WITH PEPPER Performed By: #### L 501.9520, L501.4021, L503.7505, L500.2500, L100.0100, L501.5200 #### [facility] [address] [place], [address] RBC Normal 4.2-5.4 [facility] Comment on above: Result Comment: SON TARIQ, SPOKE WITH PEPPER Performed By: #### L 501.9520, L501.4021, L503.7505, L500.2500, L100.0100, L501.5200 #### [facility] [address] [place], [address] RDW CV Normal 11.6-14.6 [facility] Comment on above: Result Comment: SON TARIQ, SPOKE WITH PEPPER Performed By: #### L 501.9520, L501.4021, L503.7505, L500.2500, L100.0100, L501.5200 #### [facility] [address] [place], [address] RDW SD Normal 35.1-43.9 [facility] Comment on above: Result Comment: SON TARIQ, SPOKE WITH PEPPER Performed By: #### L 501.9520, L501.4021, L503.7505, L500.2500, L100.0100, L501.5200 #### [facility] [address] [place], [address] WBC Normal 4.4-11.0 [facility] Comment on above: Result Comment: SON TARIQ, SPOKE WITH PEPPER Performed By: #### L 501.9520, L501.4021, L503.7505, L500.2500, L100.0100, L501.5200 #### [facility] [address] [place], [address] CNPNon 07-22-2025 CNPN Normal [facility] Carbon dioxide, total [Moles /volume] in Central venous bloodOrdered By: Dominic Diaz on 07-22-2025 CO2 [Moles/Vol] 21.6 mmol/L 21.0-32.0 [facility] Chest PA and Lateralon 07-[address] [facility] Imaging Services [address] [place] [address] Chest PA and Lateral MR#: [id number] Acct: [id number] Name: GREGG FERRIS Rep #: [id number] : 1945 F 79 From: Mak Roe MD PCP: Dr. Rangel Bonilla MD Status: REG ER Study: Chest PA and Lateral Date of Exam: 07/22/25 Exam# [id number] Ordering Dr: Dominic Diaz DO PROCEDURE: CHEST PA AND LATERAL 07/22/2025 REASON FOR EXAM: NEAR SYNCOPE TECHNIQUE: Procedure Code: RADCXR Modality: DX Procedure: CHEST PA AND LATERAL COMPARISON: April 08, 2024 FINDINGS: Heart size is within normal limits. There is no focal infiltrate or consolidation. There is no pneumothorax or effusion. There is no acute bony abnormality. Aortic calcifications are noted. Hardware is visible in the lumbar region. RAD/Chest PA and Lateral IMPRESSION: No acute process is identified in the chest. Reading Location: [facility] CC: Dr. Rangel Bonilla MD; Dr. Dominic Diaz DO Advertising Executive: Signed Normal [facility] Chloride assayOrdered By: Reji Diaz on 07-22-2025 Chloride [Moles/Vol] 107 mmol/L 98-108 [facility] Emergency Department Summary on 07-22-2025 Emergency Department Summary [facility] Medical Records Department [address] [place] [address] Emergency Department Summary 07/22/25 MR#: [id number] Acct: [id number] Name: GREGG FERRIS Rep #: [id number] : 1945 79 From: Dominic Diaz DO PCP: Dr. Rangel Bonilla MD Status:REG ER Location: ED HPI History of Present Illness Chief Complaint: General Illness Narrative Narrative: Patient is a 79-year-old female with a past medical history of GERD, hypertension, hyperlipidemia, PE on warfarin who presents to the emergency department with a chief complaint of not feeling well for the last 1 to 2 weeks. States that off-and-on for the past week she has felt feverish. States that last week she was feeling well saw her doctor they did a chest x-ray that she states was normal however they put her on amoxicillin she states that she took this for 2 days and she felt worse therefore she discontinued this. She notes that today she went for a walk and felt lightheaded and like she might pass out therefore she came here to be further evaluated. Patient states that she will check her temperature on a regular basis when she is feeling feverish and notes that this is normal. Patient denies any sick contacts. [facility] Medical History Viral illness Leukocytosis UTI (urinary tract infection) Cough Post-menopausal Alcohol use History of steroid therapy Easy bruising PONV (postoperative nausea and vomiting) Non-smoker Cardiology follow-up encounter History of echocardiogram History of stress test Hypertension Hx of migraines UTI (urinary tract infection) DDD (degenerative disc disease), lumbar Spinal stenosis Chronic back pain Cystitis GERD (gastroesophageal reflux disease) Infection due to ESBL-producing Escherichia coli Essential (primary) hypertension Hyperlipidemia Home Medications ???Medication ???Instructions ???Recorded ???Last Taken ???Type ascorbic acid (vitamin C) 1,000 mg 1 cap PO QHS vitamin 04/07/22 Un known History capsule,extended release simvastatin 10 mg tablet 10 mg PO DAILY cholesterol 4 04/04/24 History sumatriptan succinate 100 mg tablet 100 mg PO Q2H PRN migraine head ache 11/08/23 Unknown History ondansetron 4 mg disintegrating 4 mg PO TID PRN nausea and 4 Unknown Rx tablet vomiting #21 tabs amitriptyline 25 mg tablet 25 mg PO QHS #30 tabs 11/08/24 Unk nown Rx cephalexin 250 mg capsule 250 mg PO QHS 11/08/24 Unknown His tory d-mannose 500 mg capsule 2,000 mg PO DAILY 11/08/24 Unknown History cholecalciferol (vitamin D3) 25 25 mcg PO QDAY 06/06/25 Unknown Hi story mcg (1,000 unit) capsule vitamins A,C,Q-xazw-xjswvx 4,296 1 cap PO BID 06/06/25 Unknown Hist ory mcg-226 mg-90 mg capsule (PreserVision AREDS) warfarin 5 mg tablet 5 mg PO QDAY 06/06/25 Unknown Hist ory ondansetron 4 mg disintegrating 4 mg PO Q6H PRN nausea and 5 Unknown Rx tablet vomiting #20 tabs Allergy/AdvReac Type Severity Reaction Status Date / Time No Known Allergies Allergy Verified 07/22/25 11:37 Family History Mother Heart disease Father Heart disease Brother Heart disease CAD (coronary artery disease) Surgical History History of back surgery S/P subdural hematoma evacuation History of appendectomy History of laparoscopic cholecystectomy History of hysterectomy Social History household members: spouse housing: house Smoking Status: Never smoker ROS ROS ED ROS Narrative Constitutional: Complains of the feeling of feverish and lightheadedness denies any dizziness, Eyes: Denies double vision blurry vision Cardiovascular: Denies chest pain Respiratory: Denies shortness of breath Abdomen: Complains of nausea denies abdominal pain vomiting diarrhea : Denies urinary symptoms Neurological: Denies numbness, weakness, tingling Musculoskeletal: Denies back pain Skin: Denies any rashes or lesions EXAM Physical Exam Narrative Exam Narrative: General: Patient was lying in bed rest comfortably did not appear to be in acute distress Head: Atraumatic, normocephalic Eyes: PERRL bilaterally, EOMI bilaterally, no conjunctival injection noted Neck: Soft, supple, trachea midline Cardiovascular: Regular rate and rhythm Respiratory: Clear to auscultation bilaterally Abdomen: Soft, nondistended, no tenderness to palpation Extremities: +5/5 strength noted in the bilateral upper and lower extremities, radial pulses +2/4 in the bilateral extremities Neurological: Patient following commands knew that she was at [facility] the year is 2024 Skin: Warm, dry, intact no rashes or (more content not included)... Normal [facility] Eosinophil percentageOrdered By: Dominic Diaz on 07-22-2025 Eosinophils/100 WBC (Bld) 0.7 % 0-5 [facility] Erythrocyte distribution wid th ratioOrdered By: Dominic Diaz on 07-22-2025 Erythrocyte distribution width (RBC) [Ratio] 12.1 % 11.6-14.6 [facility] Erythrocyte distribution wid th standard deviationOrdered By: Dominic Diaz on 07-22-2025 Erythrocyte distribution width (RBC) [Ratio] 42.8 fl 35.1-43.9 [facility] Glomerular filtration rate ( GFR) estimation/1.73 sq m using serum, plasma, or whole bOrdered By: Dominic Diaz on 07-22-2025 GFR/1.73 sq M.predicted among non-blacks MDRD (S/P/Bld) [Vol rate/Area] 69 mL/min/{1.73_m2} >60 [facility] Comment on above: mL/min/1.73m2 CKD-EP I Creatinine Equation (2020) Hematocrit Auto (Bld) [Volum e fraction]Ordered By: Dominic Diaz on 07-22-2025 Hematocrit (Bld) [Volume fraction] 41.5 % 37-47 [facility] Hemoglobin measurementOrdere d By: Dominic Diaz on 07-22-2025 Hemoglobin (Bld) [Mass/Vol] 13.7 g/dL 12.0-15.0 [facility] Immature granulocytes/100 WB C Auto (Bld)Ordered By: Dominic Diaz on 07-22-2025 Immature granulocytes/100 WBC (Bld) 0.300 % 0.0-0.9 [facility] Comment on above: IG% - Immature Granu locytes (promyelocytes, myelocytes and metamyelocytes) > 1% indicates that a LEFT SHIFT is Present. International normalized rat io (INR) calculationOrdered By: Dominic Diaz on 07-22-2025 INR Coag (Bld) [Relative time] 1.9 {INR} [facility] Ketones Test strip Ql (U)Ord ered By: Dominic Diaz on 07-22-2025 Ketones Ql (U) 5 mg/dl High Negative [facility] L501.4021on 07-22-2025 Trop T High Sen 12 ng/L Normal <=14 [facility] Comment on above: Performed By: #### L 501.9520, L501.4021, L503.7505, L500.2500, L100.0100, L501.5200 #### [facility] [address] [place], [address] MCV (mean corpuscular volume ) determinationOrdered By: Dominic Diaz on 07-22-2025 MCV (RBC) [Entitic vol] 96.7 fL 81-99 [facility] Magnesiumon 07-22-2025 Magnesium [Mass/Vol] 2.1 mg/dL Normal 1.5-2.2 [facility] Comment on above: Performed By: #### L 501.9520, L501.4021, L503.7505, L500.2500, L100.0100, L501.5200 #### [facility] [address] [facility], [address] Magnesium measurement (mass/ volume)Ordered By: Dominic Diaz on 07-22-2025 Magnesium (Unsp spec) [Mass/Vol] 2.1 mg/dL 1.5-2.2 [facility] Mean corpuscular hemoglobin (MCH) determinationOrdered By: Dominic Diaz on 07-22-2025 MCH (RBC) [Entitic mass] 31.9 pg 27.0-32.0 [facility] Mean corpuscular hemoglobin concentration (MCHC) determinationOrdered By: Dominic Diza on 07-22-2025 MCHC (RBC) [Mass/Vol] 33.0 g/dL 32-36 [facility] Mean platelet volume determi nationOrdered By: Dominic Diaz on 07-22-2025 Platelet mean volume (Bld) [Entitic vol] 10.1 fL 6.2-12.0 [facility] Microscopic analysis of urin e for red blood cells (RBC)Ordered By: Dominic Diaz on 07-22-2025 Microscopic analysis of urine for red blood cells (RBC) 0 SEEN /hpf 0-5 [facility] Monocyte percentageOrdered B y: Dominic Diaz on 07-22-2025 Monocytes/100 WBC (Bld) 6.4 % 0-10 [facility] Mucus LM Ql (Urine sed)Order ed By: Dominic Diaz on 07-22-2025 Mucus Ql (Urine sed) 0 SEEN /hpf [facility] Natriuretic peptide.B prohor isabel N-Terminal [Mass/volume] in Serum or PlasmaOrdered By: Dominic Diaz on 07-22-2025 Natriuretic peptide.B prohormone N-Terminal [Mass/Vol] 67 pg/mL <1800 [facility] Comment on above: Heart Failure Unlike ly: < 300 pg/mLHeart Failure Likely< 50 Years: > 450 pg/mL50-75 Years: > 900 pg/mL>75 Years: > 1800 pg/mL Neutrophil percentageOrdered By: Dominic Diaz on 07-22-2025 Neutrophils/100 WBC (Bld) 71.1 % High 47-70 [facility] Nitrite Test strip Ql (U)Ord ered By: Dominic Diaz on 07-22-2025 Nitrite Ql (U) Negative Negative [facility] Nucleated red blood cell per centageOrdered By: Dominic Diaz on 07-22-2025 Nucleated RBC/100 WBC (Bld) [Ratio] 0 % 0-5 [facility] Partial Thromboplast Timeon 07-22-2025 aPTT Coag (Bld) [Time] 28.0 s Normal 24.1-36.2 [facility] Comment on above: Performed By: #### L 501.9520, L501.4021, L503.7505, L500.2500, L100.0100, L501.5200 #### [facility] [address] [place], [place], [address] Platelet countOrdered By: Reji Diaz on 07-22-2025 Platelets (Bld) [#/Vol] 192 10*3/uL 150-450 [facility] Potassium measurement (mass/ volume)Ordered By: Dominic Diaz on 07-22-2025 Potassium (Unsp spec) [Mass/Vol] 3.9 mmol/L 3.3-5.1 [facility] Pro- Brain NATRIURETIC PEPTI Dale 07-22-2025 Natriuretic peptide B (Bld) [Mass/Vol] 67 pg/mL Normal <=1800 [facility] Comment on above: Result Comment: Hear t Failure Unlikely: < 300 pg/mL Heart Failure Likely < 50 Years: > 450 pg/mL 50-75 Years: > 900 pg/mL >75 Years: > 1800 pg/mL Performed By: #### L 501.9520, L501.4021, L503.7505, L500.2500, L100.0100, L501.5200 #### [facility] [address] [place], [address] Protein Test strip Ql (U)Ord ered By: Dominic Diaz on 07-22-2025 Protein Ql (U) 15 mg/dl High Negative [facility] Prothrombin Time w/INRon INR Coag (PPP) [Relative time] 1.9 {INR} Normal [facility] Comment on above: Performed By: #### L 300.3900, L300.4310 #### [facility] [address] [place], [address] PT Coag (PPP) [Time] 22.5 s High 11.7-14.9 [facility] Comment on above: Performed By: #### L 300.3900, L300.4310 #### [facility] [address] [place], [address] Prothrombin timeOrdered By: Dominic Diaz on 07-22-2025 PT Coag (PPP) [Time] 22.5 s High 11.7-14.9 [facility] RBC Auto (Bld) [#/Vol]Ordere d By: Dominic Diaz on 07-22-2025 RBC (Bld) [#/Vol] 4.29 10*6/uL 4.2-5.4 [facility] Serum creatinine measurement (mass/volume)Ordered By: Dominic Diaz on 07-22-2025 Creatinine [Mass/Vol] 0.85 mg/dL 0.70-1.20 [facility] Serum glucose measurement (m ass/volume)Ordered By: Dominic Diaz on 07-22-2025 Glucose [Mass/Vol] 108 mg/dL High 70-99 [facility] Serum or plasma calcium chan urement (mass/volume)Ordered By: Dominic Diaz on 07-22-2025 Calcium [Mass/Vol] 9.0 mg/dL 7.6-11.0 [facility] Serum or plasma urea nitroge n measurement (mass/volume)Ordered By: Dominic Diaz on 07-22-2025 Urea nitrogen [Mass/Vol] 17 mg/dL 4-19 [facility] Sodium levelOrdered By: Elham Diaz on 07-22-2025 Sodium [Moles/Vol] 140 mmol/L 133-145 [facility] Squamous epithelial cells de tection in urine sediment by light microscopyOrdered By: Dominic Diaz on 07-22-2025 Epithelial cells.squamous LM Ql (Urine sed) 5-10 SEEN /hpf 5-10 [facility] TSH DL <= 0.005 mIU/L QnOrde red By: Dominic Diaz on 07-22-2025 TSH Qn 0.988 uIU/mL 0.300-4.200 [facility] Thyroid Stim Hormone (TSH)on 07-22-2025 TSH 0.988 uIU/mL Normal 0.300-4.200 [facility] Comment on above: Performed By: #### L 501.9520, L501.4021, L503.7505, L500.2500, L100.0100, L501.5200 #### [facility] [address] [place], [address] Troponin T HS 2 HRon 025 Trop T High Sen 9 ng/L Normal <=14 [facility] Comment on above: Performed By: #### L 499.0042 #### [facility] [address] [place], [address] Troponin T HS 4 HRon 025 Trop T High Sen Normal <=14 [facility] Comment on above: Result Comment: GRETA ENT DISCHARGED PER ER Performed By: #### L 499.0043 #### [facility] [address] [place], [address] Troponin T.cardiac [Mass/vol ume] in Serum or Plasma by High sensitivity methodOrdered By: Dominic Diaz on 07-22-2025 Troponin T.cardiac High sensitivity method [Mass/Vol] 9 ng/L <14 [facility] Troponin T.cardiac High sensitivity method [Mass/Vol] 12 ng/L <14 [facility] Urinalysis, Completeon 07-22 WBC 0-5 SEEN Normal 0-5 [facility] Comment on above: Order Comment: CLEAN CATCH Performed By: #### L 501.9520, L501.4021, L503.7505, L500.2500, L100.0100, L501.5200 #### [facility] [address] [place], [address] YEAST 1+ /hpf Normal None Seen [facility] Comment on above: Order Comment: CLEAN CATCH Performed By: #### L 501.9520, L501.4021, L503.7505, L500.2500, L100.0100, L501.5200 #### [facility] [address] [place], [address] EPI,SQUAMOUS 5-10 SEEN Normal 5-10 [facility] Comment on above: Order Comment: CLEAN CATCH Performed By: #### L 501.9520, L501.4021, L503.7505, L500.2500, L100.0100, L501.5200 #### [facility] [address] [place], [address] BACTERIA 0 SEEN Normal None Seen [facility] Comment on above: Order Comment: CLEAN CATCH Performed By: #### L 501.9520, L501.4021, L503.7505, L500.2500, L100.0100, L501.5200 #### [facility] [address] [place], [address] Mucus Ql (Urine sed) 0 SEEN Normal [facility] Comment on above: Order Comment: CLEAN CATCH Performed By: #### L 501.9520, L501.4021, L503.7505, L500.2500, L100.0100, L501.5200 #### [facility] [address] [place], [address] RBC 0 SEEN Normal 0-5 [facility] Comment on above: Order Comment: CLEAN CATCH Performed By: #### L 501.9520, L501.4021, L503.7505, L500.2500, L100.0100, L501.5200 #### [facility] [address] [place], [address] Urine clarityOrdered By: Max Diaz on 07-22-2025 Clarity (U) Clear Clear [facility] Urine color determinationOrd ered By: Dominic Diaz on 07-22-2025 Color (U) Yellow Yellow [facility] Urine glucose detectionOrder ed By: Dominic Diaz on 07-22-2025 Glucose Ql (U) Normal mg/dl Normal [facility] Urine leukocyte esterase det ection by dipstickOrdered By: Dominic Diaz on 07-22-2025 Leukocyte esterase Test strip Ql (U) 100 /ul High Negative [facility] Urine pHOrdered By: Dominic singh on 07-22-2025 pH (U) 6.0 [pH] 5.0 - 8.0 [facility] Urine sediment bacteria coun t by microscopy (number/high power field)Ordered By: Dominic Diaz on 07-22-2025 Bacteria LM.HPF (Urine sed) [#/Area] 0 /[HPF] None Seen [facility] Urine sediment yeast count b y microscopy (number/high powered field)Ordered By: Dominic Diaz on 07-22-2025 Yeast LM.HPF (Urine sed) [#/Area] 1 /[HPF] None Seen [facility] Urine specific gravity measu rementOrdered By: Dominic Diaz on 07-22-2025 Specific gravity (U) [Rel density] 1.015 1.002-1.030 [facility] Urine urobilinogen measureme ntOrdered By: Dominic Diaz on 07-22-2025 Urobilinogen Ql (U) Normal mg/dl Normal [facility] White blood cell (WBC) count Ordered By: Dominic Diaz on 07-22-2025 WBC (Bld) [#/Vol] 6.8 10*3/uL 4.4-11.0 [facility] White blood cell countOrdere d By: Dominic Diaz on 07-22-2025 White blood cell count 0-5 SEEN /hpf 0-5 [facility] CNPNon 07-14-2025 CNPN Normal [facility] CNOVon 07-10-2025 CNOV Normal [facility] COVID & INFLUENZA A/B & RSV PCR, ROUTINEon 07-10-2025 FLUAV RNA SANDY+probe Ql (Unsp spec) Not detected Not Detected [facility] FLUBV RNA SANDY+probe Ql (Unsp spec) Not detected Not Detected [facility] Interpretation and review of laboratory results Normal [facility] RSV A RNA SANDY+probe Ql (Unsp spec) Not detected Not Detected [facility] SARS-CoV-2 (COVID-19) RNA SANDY+probe Ql (Unsp spec) Not detected See comment [facility] Reference Range (the expected result in uninfected individuals): Not detected [facility] XR CHEST 2V FRONTAL/LATon XR CHEST 2V FRONTAL/LAT Normal C [facility] XR Chest PA and Lateralon IMPRESSION: No acute radiographic abnormality is identified. See Discussion Advertising Executive: YURI Transcribe Date/Time: Jul 10 2025 11:42A Dictated by : KRISHNA ÁLVAREZ DO This examination was interpreted and the report reviewed and electronically signed by: KRISHNA ÁLVAREZ DO on Jul 10 2025 11:43AM [facility] DIVISION OF RADIOLOGY * * *Final Report* * * DATE OF EXAM: Jul 10 2025 11:41AM WOX [id number] - XR CHEST 2V FRONTAL/LAT / PROCEDURE REASON: Abnormal lung sounds * * * * Physician Interpretation * * * * EXAMINATION: CHEST RADIOGRAPH (2 VIEW FRONTAL & LATERAL) CLINICAL HISTORY: Abnormal lung sounds MQ: XC2_6 EXAM DATE/TIME: 07/10/2025 11:41 AM COMPARISON: 12/21/2023 chest x-ray and CT chest 01/24/2023 RESULT: Lines, tubes, and devices: None. Lungs and pleura: No acute pathology identified by chest x-ray. The previously seen nodules on CT are not visualized Cardiomediastinal silhouette: Normal cardiomediastinal silhouette. Bones and soft tissues: Unremarkable. DIVISION OF RADIOLOGY Provider, Patrick Noonan - 07/10/2025 * * *Final Report* * * DATE OF EXAM: Jul 10 2025 11:41AM WOX [id number] - XR CHEST 2V FRONTAL/LAT / PROCEDURE REASON: Abnormal lung sounds * * * * Physician Interpretation * * * * EXAMINATION: CHEST RADIOGRAPH (2 VIEW FRONTAL & LATERAL) CLINICAL HISTORY: Abnormal lung sounds MQ: XC2_6 EXAM DATE/TIME: 07/10/2025 11:41 AM COMPARISON: 12/21/2023 chest x-ray and CT chest 01/24/2023 RESULT: Lines, tubes, and devices: None. Lungs and pleura: No acute pathology identified by chest x-ray. The previously seen nodules on CT are not visualized Cardiomediastinal silhouette: Normal cardiomediastinal silhouette. Bones and soft tissues: Unremarkable. IMPRESSION IMPRESSION: No acute radiographic abnormality is identified. See Discussion Advertising Executive: YURI Transcribe Date/Time: Jul 10 2025 11:42A Dictated by : KRISHNA ÁLVAREZ DO This examination was interpreted and the report reviewed and electronically signed by: KRISHNA ÁLVAREZ DO on Jul 10 2025 11:43AM EST [facility] Radiology [facility]narrative[facility] XR Chest PA and LateralOrder ed By: Cc Provider on 07-10-2025 [facility] DBT Breast - bilateral diagn ostic for implanton 07-09-2025 IMPRESSION: The 0.5 cm stable lesion in the left breast at 1 o'clock, 6 cm from the nipple is probably benign. Follow-up with diagnostic mammogram with possible ultrasound is recommended in 6 months. BI-RADS Category 3: Probably Benign RISK: Based on the Tyrer-Cuzick (TC) risk assessment model, this patient has a 0.6% lifetime risk of developing breast cancer, meaning they are at average risk for developing breast cancer. However, this is only an estimate based on available history provided on the patient's questionnaire. We encourage all patients to talk with their providers about these results, further recommendations for managing breast health, and appropriate supplemental screening options if the patient has dense breast tissue. Interpreting Radiologist: Yu Saez M.D. Electronically signed on: 07/09/2025 Advertising Executive: BERNADINE Transcrijosh Date/Time: Jul 09 2025 8:03A Dictated by: YU SAEZ MD This examination was interpreted and the report reviewed and electronically signed by: YU SAEZ MD on Jul 09 2025 9:29AM [facility] DIVISION OF RADIOLOGY * * *Final Report* * * DATE OF EXAM: Jul 09 2025 8:18AM W 0627 - NAFISA DIAG W CHANEL JENNY / PROCEDURE REASON: Abnormal mammogram of both breasts * * * * Physician Interpretation * * * * RESULT: [address] [address] [place] [address] #[id number] - [facility] DIAG BILAT W CHANEL #[id number] - [facility] US BREAST LTD LT HISTORY: 79 year-old patient presents for diagnostic evaluation of the finding(s) described on prior mammogram in the left breast and short term follow-up from a previous mammogram and ultrasound of the left breast. Patient is asymptomatic in the right breast. Patient states no personal history of breast cancer. COMPARISON STUDIES: The present examination has been compared to prior imaging studies dated 06/06/2024 (mammogram), 06/11/2024 (mammogram), 06/11/2024 (ultrasound), 01/01/2025 (ultrasound) and 01/01/2025 (mammogram). MAMMOGRAM TECHNIQUE: The study was acquired using full field digital technology and interpreted from soft copy. MAMMOGRAM FINDINGS: The breasts are almost entirely fatty. There is a stable focal asymmetry measuring 0.5 cm in the upper outer quadrant of the left breast. No suspicious masses, calcifications or other abnormalities are seen in the right breast. ULTRASOUND TECHNIQUE: Targeted ultrasound of the indicated area was performed. Ross scale images were saved. ULTRASOUND FINDINGS: Ultrasound demonstrates a stable oval parallel lesion with circumscribed margins measuring 0.5 cm at 1 o'clock, 6 cm from the nipple in the left breast. Internal echotexture is hypoechoic. DIVISION OF RADIOLOGY Provider, [facility] - 07/09/2025 * * *Final Report* * * DATE OF EXAM: Jul 09 2025 8:18AM WRW 0627 - [facility] DIAG W CHANEL JENNY / PROCEDURE REASON: Abnormal mammogram of both breasts * * * * Physician Interpretation * * * * RESULT: [facility] [address] [place] [address] #[id number] - [facility] KIP BILAT W CHANEL #[id number] - [facility] US BREAST LTD LT HISTORY: 79 year-old patient presents for diagnostic evaluation of the finding(s) described on prior mammogram in the left breast and short term follow-up from a previous mammogram and ultrasound of the left breast. Patient is asymptomatic in the right breast. Patient states no personal history of breast cancer. COMPARISON STUDIES: The present examination has been compared to prior imaging studies dated 06/06/2024 (mammogram), 06/11/2024 (mammogram), 06/11/2024 (ultrasound), 01/01/2025 (ultrasound) and 01/01/2025 (mammogram). MAMMOGRAM TECHNIQUE: The study was acquired using full field digital technology and interpreted from soft copy. MAMMOGRAM FINDINGS: The breasts are almost entirely fatty. There is a stable focal asymmetry measuring 0.5 cm in the upper outer quadrant of the left breast. No suspicious masses, calcifications or other abnormalities are seen in the right breast. ULTRASOUND TECHNIQUE: Targeted ultrasound of the indicated area was performed. Ross scale images were saved. ULTRASOUND FINDINGS: Ultrasound demonstrates a stable oval parallel lesion with circumscribed margins measuring 0.5 cm at 1 o'clock, 6 cm from the nipple in the left breast. Internal echotexture is hypoechoic. IMPRESSION IMPRESSION: The 0.5 cm stable lesion in the left breast at 1 o'clock, 6 cm from the nipple is probably benign. Follow-up with diagnostic mammogram with possible ultrasound is recommended in 6 months. BI-RADS Category 3: Probably Benign RISK: Based on the Tyrer-Cuzick (TC) risk assessment model, this patient has a 0.6% lifetime risk of developing breast cancer, meaning they are at average risk for developing breast cancer. However, this is only an estimate based on available history provided on the patient's questionnaire. We encourage all patients to talk with their providers about these results, further recommendations for managing breast health, and appropriate supplemental screening options if the patient has dense breast tissue. Interpreting Radiologist: Yu Saez M.D. Electronically signed on: 07/09/2025 Advertising Executive: BERNADINE Transcrijosh Date/Time: Jul 09 2025 8:03A Dictated by: YU SAEZ MD This examination was interpreted and the report reviewed and electronically signed by: YU SAEZ MD on Jul 09 2025 9:29AM EST [facility] NAFISA DIAG W CHANEL BILon 2024 NAFISA DIAG W CHANEL JENNY Normal [facility] NAFISA US BREAST LTD LTon 07-09 [facility] US BREAST LTD LT [facility] No Panel InformationOrdered By: Ccf Provider on 07-09-2025 [facility] No Panel Informationon 07-09 Radiology Study observation (narrative) [facility] US Breast - left limitedon 0 07-09-2025 IMPRESSION: The 0.5 cm stable lesion in the left breast at 1 o'clock, 6 cm from the nipple is probably benign. Follow-up with diagnostic mammogram with possible ultrasound is recommended in 6 months. BI-RADS Category 3: Probably Benign RISK: Based on the Tyrer-Cuzick (TC) risk assessment model, this patient has a 0.6% lifetime risk of developing breast cancer, meaning they are at average risk for developing breast cancer. However, this is only an estimate based on available history provided on the patient's questionnaire. We encourage all patients to talk with their providers about these results, further recommendations for managing breast health, and appropriate supplemental screening options if the patient has dense breast tissue. Interpreting Radiologist: Yu Saez M.D. Electronically signed on: 07/09/2025 Advertising Executive: BERNADINE Transcrijosh Date/Time: Jul 09 2025 8:46A Dictated by : YU SAEZ MD This examination was interpreted and the report reviewed and electronically signed by: YU SAEZ MD on Jul 09 2025 9:29AM EST DIVISION OF RADIOLOGY * * *Final Report* * * DATE OF EXAM: Jul 09 2025 8:46AM U 0593 - [facility] US BREAST LTD LT / PROCEDURE REASON: Abnormal mammogram of both breasts * * * * Physician Interpretation * * * * [facility] [address] [place] [address] #[id number] - [facility] DIAG BILAT W CHANEL #[id number] - [employer] [employer] BREAST Deepclass LT HISTORY: 79 year-old patient presents for diagnostic evaluation of the finding(s) described on prior mammogram in the left breast and short term follow-up from a previous mammogram and ultrasound of the left breast. Patient is asymptomatic in the right breast. Patient states no personal history of breast cancer. COMPARISON STUDIES: The present examination has been compared to prior imaging studies dated 06/06/2024 (mammogram), 06/11/2024 (mammogram), 06/11/2024 (ultrasound), 01/01/2025 (ultrasound) and 01/01/2025 (mammogram). MAMMOGRAM TECHNIQUE: The study was acquired using full field digital technology and interpreted from soft copy. MAMMOGRAM FINDINGS: The breasts are almost entirely fatty. There is a stable focal asymmetry measuring 0.5 cm in the upper outer quadrant of the left breast. No suspicious masses, calcifications or other abnormalities are seen in the right breast. ULTRASOUND TECHNIQUE: Targeted ultrasound of the indicated area was performed. Ross scale images were saved. ULTRASOUND FINDINGS: Ultrasound demonstrates a stable oval parallel lesion with circumscribed margins measuring 0.5 cm at 1 o'clock, 6 cm from the nipple in the left breast. Internal echotexture is hypoechoic. DIVISION OF RADIOLOGY Provider, [facility] - 07/09/2025 * * *Final Report* * * DATE OF EXAM: Jul 09 2025 8:46AM U 0593 - [facility] XIPWIRE BREAST Deepclass LT / PROCEDURE REASON: Abnormal mammogram of both breasts * * * * Physician Interpretation * * * * [facility] [address] [place] [address] #[id number] - [facility] DIAG BILAT W CHANEL #[id number] - NAFISA XIPWIRE BREAST LTD LT HISTORY: 79 year-old patient presents for diagnostic evaluation of the finding(s) described on prior mammogram in the left breast and short term follow-up from a previous mammogram and ultrasound of the left breast. Patient is asymptomatic in the right breast. Patient states no personal history of breast cancer. COMPARISON STUDIES: The present examination has been compared to prior imaging studies dated 06/06/2024 (mammogram), 06/11/2024 (mammogram), 06/11/2024 (ultrasound), 01/01/2025 (ultrasound) and 01/01/2025 (mammogram). MAMMOGRAM TECHNIQUE: The study was acquired using full field digital technology and interpreted from soft copy. MAMMOGRAM FINDINGS: The breasts are almost entirely fatty. There is a stable focal asymmetry measuring 0.5 cm in the upper outer quadrant of the left breast. No suspicious masses, calcifications or other abnormalities are seen in the right breast. ULTRASOUND TECHNIQUE: Targeted ultrasound of the indicated area was performed. Ross scale images were saved. ULTRASOUND FINDINGS: Ultrasound demonstrates a stable oval parallel lesion with circumscribed margins measuring 0.5 cm at 1 o'clock, 6 cm from the nipple in the left breast. Internal echotexture is hypoechoic. IMPRESSION IMPRESSION: The 0.5 cm stable lesion in the left breast at 1 o'clock, 6 cm from the nipple is probably benign. Follow-up with diagnostic mammogram with possible ultrasound is recommended in 6 months. BI-RADS Category 3: Probably Benign RISK: Based on the Tyrer-Cuzick (TC) risk assessment model, this patient has a 0.6% lifetime risk of developing breast cancer, meaning they are at average risk for developing breast cancer. However, this is only an estimate based on available history provided on the patient's questionnaire. We encourage all patients to talk with their providers about these results, further recommendations for managing breast health, and appropriate supplemental screening options if the patient has dense breast tissue. Interpreting Radiologist: Yu Saez M.D. Electronically signed on: 07/09/2025 Advertising Executive: BERNADINE Transcribe Date/Time: Jul 09 2025 8:46A Dictated by : YU SAEZ MD This examination was interpreted and the report reviewed and electronically signed by: YU SAEZ MD on Jul 09 2025 9:29AM EST [facility] CNOVon 07-08-2025 CNOV Normal [facility] CNPNon 07-08-2025 CNPN Normal [facility] CNPNon 07-01-2025 CNPN Normal [facility] CNPTOUTREACHon 06-24-2025 CNPTOUTREACH Normal [facility] CNPNon 06-17-2025 CNPN Normal [facility] CNPNon 06-16-2025 CNPN Normal [facility] Laboratory - Chemistry and C hemistry - challengeOrdered By: Mala Coello on 06-06-2025 Bilirubin Ql (U) Negative [facility] Glucose Ql (U) Negative [facility] Ketones Ql (U) Small (15+) [facility] pH (U) 5 [pH] [facility] Specific gravity (U) [Rel density] 1.015 [facility] Urobilinogen (U) [Mass/Vol] Negative [facility] Laboratory - Hematology and Cell countsOrdered By: Mala Coello on 06-06-2025 Hemoglobin Ql (U) Negative [facility] Laboratory - UrinalysisOrder ed By: Mala Coello on 06-06-2025 Nitrite Ql (U) Negative [facility] Protein Ql (U) Negative [facility] MR/Debbie 06-06-2025 /JUJU [facility] [address], [address] [place] [address] OFFICE VISIT Date of Service: 06/06/25 MR#: [id number] Acct: [id number] Name: GREGG FERRIS Rep #: [id number] : 1945 Provider: Dr. Mala Francisco i, MD Age/Sex: 79/F Location: [facility] Status: Signed Intake Vital Signs 04/13/25 12:19 06/06/25 12:13 06/06/25 12:13 Height 5 ft 3 in 5 ft 3 in 5 ft 3 in Weight: 134 lb BMI 23.7 BP 138/90 H Blood Pressure Location Lt radial Pulse 109 H Intake Visit Reasons: Urinary tract infection Chief Complaint: Acute urinary tract infection symptoms Compliance Lead Required: No Accompanied by: Self Is patient in pain?: No Allergies No Known Allergies Allergy (Verified 06/06/25 12:07) Medications ???Medication ???Instructions ???Recorded ???Confirmed ???Type ascorbic acid (vitamin C) 1,000 mg 1 cap PO QHS vitamin 04/07/22 History capsule,extended release simvastatin 10 mg tablet 10 mg PO DAILY cholesterol 4 06/06/25 History sumatriptan succinate 100 mg tablet 100 mg PO Q2H PRN migraine head ache 11/08/23 06/06/25 History ondansetron 4 mg disintegrating 4 mg PO TID PRN nausea and 4 06/06/25 Rx tablet vomiting #21 tabs amitriptyline 25 mg tablet 25 mg PO QHS #30 tabs 11/08/2411/30 Rx cephalexin 250 mg capsule 250 mg PO QHS 11/08/24 06/06/25 Hi story d-mannose 500 mg capsule 2,000 mg PO DAILY 11/08/24 5 History cholecalciferol (vitamin D3) 25 25 mcg PO QDAY 06/06/25 06/06/25 H istory mcg (1,000 unit) capsule vitamins A,C,W-omqc-fzqmap 4,296 1 cap PO BID 06/06/25 06/06/25 His tory mcg-226 mg-90 mg capsule (PreserVision AREDS) warfarin 5 mg tablet 5 mg PO QDAY 06/06/25 06/06/25 His tory Have you fallen in the past year?: No PFSH Medical History Post-menopausal Alcohol use History of steroid therapy Easy bruising PONV (postoperative nausea and vomiting) Non-smoker Cardiology follow-up encounter History of echocardiogram History of stress test Hypertension Hx of migraines UTI (urinary tract infection) DDD (degenerative disc disease), lumbar Spinal stenosis Chronic back pain Cystitis GERD (gastroesophageal reflux disease) Infection due to ESBL-producing Escherichia coli Essential (primary) hypertension Hyperlipidemia Surgical History History of back surgery S/P subdural hematoma evacuation History of appendectomy History of laparoscopic cholecystectomy History of hysterectomy Family History Mother Heart disease Father Heart disease Brother Heart disease CAD (coronary artery disease) Social History household members: spouse housing: house Smoking Status: Never smoker HPI HPI Chief Complaint: Acute urinary tract infection symptoms Details: GREGG FERRIS, is a 79 F. She is here for a possible vaginal infection. Two weeks ago she had symptoms of a urinary tract infection. She was given Macrobid and changed it to Cipro after the culture. She did well. Burning started about 2-3 days after that. She was then seen and treated with Diflucan for a vaginal yeast infection. She had symptoms and needed a second tab. She is now having a slight burning sensation after voiding, not with her flow. It feels like a vaginal irritation rather than a urinary tract infection. She is leaving again next week for [facility] and wants to make sure she is ok. There is no fever, chills, nausea, vomiting, or hematuria. ROS Const Constitutional: No chills, fatigue, fever(s), headache(s), night sweats, weakness, weight change, abnormal sleep pattern or change in appetite Eyes Eyes: No change in vision ENT ENT: No headache(s) or dry mouth Resp Respiratory: No cough, chest congestion, shortness of breath or wheezing Cardio Cardiology: Positive for other (No chest pain.); No shortness of breath, irregular heart rhythm or lightheadedness Gastro GI: Positive for other (No nausea.); No abdominal pain, change in bowel habits, constipation, diarrhea or vomiting Genitourinary-Female: Positive for other (See HPI); No difficulty urinating or urinary frequency Musc Musculoskeletal: No abnormal gait Skin Skin: No yellowing of the eye, lesions, itchy eyes, rash or skin ulcer Neuro Neurology: No abnormal gait, confusion, dizziness, weakness, headache(s) or memory loss Psych Psychiatric: No abnormal sleep pattern, No change in appetite, No confusion and No memory loss Endo Endocrine: No fatigue, increased thirst/drinking or weight change Aller/Imm Allergy/Immunologic: No itchy eyes or wheezing Jose/Lymp Hematologi (more content not included)... Normal [facility] No Panel InformationOrdered By: Mala Coello on 06-06-2025 Urine Leukocytes Negatve [facility] CNPNon 06-05-2025 CNPN Normal [facility] CNOVon 06-03-2025 CNOV Normal [facility] CNPNon 06-03-2025 CNPN Normal [facility] CNPNon 06-02-2025 CNPN Normal [facility] CLEMENTINA/TRICHOMONAS NAATon 0 05-28-2025 C. glabrata RNA SANDY+probe Ql (Vag fld) Detected Abnormal Not detected [facility] Comment on above: Order Comment: Speci men Type: SWABOrdering Facility: [facility] Address: [address] [place] [address] Performed By: #### C VTV ####[facility] LABIA [id number] [place] [address] [place] Clementina sp DNA SANDY+probe Ql (Vag fld) Not detected Normal Not detected [facility] Comment on above: Order Comment: Speci men Type: SWABOrdering Facility: [facility] Address: [address] [place] [address] Result Comment: The Clementina species group target includes C. albicans, C. tropicalis, C. parapsilosis, and C. dubliniensis. Performed By: #### C VTV ####[facility] LABCLIA [id number] [place] [address] [place] T. vaginalis DNA SANDY+probe Ql (Unsp spec) Not detected Normal Not detected [facility] Comment on above: Order Comment: Speci men Type: SWABOrdering Facility: [facility] Address: [address] [place] [address] Performed By: #### C VTV ####[facility] LABCLIA [id number] [place] [address] [place] CNOVon 05-28-2025 CNOV Normal [facility] CNPNon 05-28-2025 CNPN Normal [facility] UA DIP, URINE (POC)on 2024 BILIRUBIN UA (POCT) Negative Negative [facility] CLARITY UA (POCT) Slightly Cloudy [facility] COLOR UA (POCT) Yellow [facility] GLUCOSE UA (POCT) Negative Negative mg/dL [facility] Hemoglobin Ql (U) Negative Negative [facility] KETONE UA (POCT) Negative Negative mg/dL [facility] LEUKOCYTES UA (POCT) Negative Negative [facility] NITRITE UA (POCT) Negative Negative [facility] PH UA (POCT) 6 4.5 - 8.0 [facility] Protein Ql (U) Negative Negative mg/dL [facility] SPECIFIC GRAVITY UA (POCT) 1.015 1.005 - 1.030 [facility] UROBILINOGEN UA (POCT) 0.2 Maegan l E.U./dL [facility] Location:[address], [place], [place], [address] [place] [address] POINT OF CARE [facility] CNPNon 05-27-2025 CNPN Normal [facility] CNPNon 05-20-2025 CNPN Normal [facility] Bacteria Ur Culton 5 Bacteria identified Cx Nom (U) Abnormal [facility] Comment on above: Performed By: #### 6 30-4 ####[facility] LABCLIA [id number] [address] [place] CNOVon 05-14-2025 CNOV Normal [facility] UA DIP, URINE (POC)on 2024 BILIRUBIN UA (POCT) Negative Negative [facility] CLARITY UA (POCT) Clear [facility] COLOR UA (POCT) Yellow [facility] GLUCOSE UA (POCT) Negative Negative mg/dL [facility] Hemoglobin Ql (U) Negative Negative [facility] Interpretation and review of laboratory results Abnormal [facility] KETONE UA (POCT) Negative Negative mg/dL [facility] LEUKOCYTES UA (POCT) Trace Abnormal Negative [facility] NITRITE UA (POCT) Positive Abnormal Negative [facility] PH UA (POCT) 7 4.5 - 8.0 [facility] Protein Ql (U) Negative Negative mg/dL [facility] SPECIFIC GRAVITY UA (POCT) 1.025 1.005 - 1.030 [facility] UROBILINOGEN UA (POCT) 0.2 Maegan l E.U./dL [facility] Location:[address], [place], [place], [address] [place] [address] POINT OF CARE [facility] CNPNon 05-06-2025 CNPN Normal [facility] CNPNon 04-24-2025 CNPN Normal [facility] PT panel Coag (PPP)on 2024 INR Coag (PPP) [Relative time] 4.1 {INR} High 0.9-1.3 [facility] Comment on above: Order Comment: Specishmael aleman Type: BLOOD SPECIMENOrdering Facility: [facility] Address: [address] [place] [address] Result Comment: Fabiana min K Antagonist (VKA) Therapeutic Range: INR 2 to 3 (Target INR of 2.5)Note: For patients treated with VKA drugs, such as warfarin, the [employer] [employer] 2012 Guideline recommends a therapeutic INR range of 2 to 3 (target INR of 2.5). This recommendation includes high-risk patients with antiphospholipid syndrome with previous arterial or venous thromboembolism, current-generation mechanical or bioprosthetic aortic heart valve replacement.Note: Patients with mechanical aortic valve replacement and additional risk factors for thromboembolic events (atrial fibrillation, previous thromboembolism, LV dysfunction, hypercoagulable conditions) or an older generation mechanical AVR (i.e., ball in-Cage) or any mechanical MVR should have a INR therapeutic range of 2.5 to 3.5 (target INR of 3).Raza GH, et al. Chest 2012, 141:7S-47SNishtalat NATION, et al. [facility] 2017, 70: 252-289 Performed By: #### 3 4528-0 ####[facility] NASSAUGLENDA [id number] [address] [place] PT Coag (PPP) [Time] 39.6 s High <13.1 [facility] Comment on above: Order Comment: Thu aleman Type: BLOOD SPECIMENOrdering Facility: [facility] Address: [address] [place] [address] Performed By: #### 3 4528-0 ####[facility] [id number] [address] [place] CNPNon 04-21-2025 CNPN Normal [facility] 12 Lead EKGon 04-13-[address] [facility] [address] [place] [address] 12 Lead EKG 04/13/25 1233 MR#: [id number] Acct: [id number] Name: GREGG FERRIS Rep #: [id number] : 1945 79 From: Puneet Allen MD Attending Dr: Status: DEP ER Ordering Dr: Sen Olivas DO Date: 04/13/25 Location: ED Sex: F C Admitted: Test Reason : Blood Pressure : */* mmHG Vent. Rate : 95 BPM Atrial Rate : 95 BPM P-R Int : 144 ms QRS Dur : 78 ms QT Int : 318 ms P-R-T Axes : 45 -25 -3 degrees QTcB Int : 399 ms Sinus rhythm with Premature atrial complexes CAN NOT RULE OUT Septal infarct (cited on or before 05-Apr-2024) ST T wave abnormality, consider inferolateral ischemia Abnormal ECG Confirmed by Puneet Allen ([id number]), newspaper editor managing CHRISTIAN MADERA ([id number]) on 04/14/2025 9:37:14 AM Referred By: Confirmed By: Puneet Allen 04/14/25 0937 Date Puneet Allen MD CC: Dr. Rangel Bonilla MD; Dr. Sen Olivas DO Signed Normal [facility] Absolute lymphocyte countOrd ered By: ED PROVIDER on 04-13-2025 Lymphocytes Auto (Unsp spec) [#/Vol] 2.25 10*3/uL 0.83-4.51 [facility] Absolute neutrophil countOrd ered By: ED PROVIDER on 04-13-2025 Neutrophils (Bld) [#/Vol] 4.9 10*3/uL 2.0-7.7 [facility] Activated partial thrombopla stin time (aPTT) in platelet poor plasma by coagulation aOrdered By: ED PROVIDER on 04-13-2025 aPTT Coag (PPP) [Time] 28.0 s 24.1-36.2 [facility] Anion gap in Serum or Plasma Ordered By: ED PROVIDER on 04-13-2025 Anion gap [Moles/Vol] 12 mmol/L 5-15 [facility] Automated lymphocyte count a s percentage of total leukocytesOrdered By: ED PROVIDER on 04-13-2025 Lymphocytes/100 WBC Auto (Unsp spec) 29.1 % 19-41 [facility] BUN/creatinine ratioOrdered By: ED PROVIDER on 04-13-2025 Urea nitrogen/Creatinine [Mass ratio] 24.5 mg/mg High 10-20 [facility] Basic Metabolic Profile (BMP )on 04-13-2025 BUN/CRE 24.5 RATIO High - [facility] Comment on above: Performed By: #### L 501.9520, L501.4021, L503.7505, L500.2500, L100.0100, L501.5200 #### [facility] [address] [place], [address] Calcium [Mass/Vol] 9.3 mg/dL Normal 7.6-11.0 [facility] Comment on above: Performed By: #### L 501.9520, L501.4021, L503.7505, L500.2500, L100.0100, L501.5200 #### [facility] [address] [place], [address] Chloride [Moles/Vol] 107 mmol/L Normal 98-108 [facility] Comment on above: Performed By: #### L 501.9520, L501.4021, L503.7505, L500.2500, L100.0100, L501.5200 #### [facility] [address] [place], [address] CO2 [Moles/Vol] 22.3 mmol/L Normal 21.0-32.0 [facility] Comment on above: Performed By: #### L 501.9520, L501.4021, L503.7505, L500.2500, L100.0100, L501.5200 #### [facility] [address] [place], [address] Creatinine [Mass/Vol] 0.79 mg/dL Normal 0.70-1.20 [facility] Comment on above: Performed By: #### L 501.9520, L501.4021, L503.7505, L500.2500, L100.0100, L501.5200 #### [facility] [address] [place], [address] ECRCL 45.62 ml/min Low 50-250 [facility] Comment on above: Performed By: #### L 501.9520, L501.4021, L503.7505, L500.2500, L100.0100, L501.5200 #### [facility] [address] [place], [address] GAP 12 Normal 5-15 [facility] Comment on above: Performed By: #### L 501.9520, L501.4021, L503.7505, L500.2500, L100.0100, L501.5200 #### [facility] [address] [place], [address] GFR/1.73 sq M.predicted among non-blacks MDRD (S/P/Bld) [Vol rate/Area] 75 mL/min/{1.73_m2} Normal >60 [facility] Comment on above: Result Comment: mL/m in/1.73m2 CKD-EPI Creatinine Equation (2020) Performed By: #### L 501.9520, L501.4021, L503.7505, L500.2500, L100.0100, L501.5200 #### [facility] [address] [place], [address] Glucose [Mass/Vol] 116 mg/dL High 70-99 [facility] Comment on above: Performed By: #### L 501.9520, L501.4021, L503.7505, L500.2500, L100.0100, L501.5200 #### [facility] [address] [place], [address] Potassium [Moles/Vol] 4.1 mmol/L Normal 3.3-5.1 [facility] Comment on above: Performed By: #### L 501.9520, L501.4021, L503.7505, L500.2500, L100.0100, L501.5200 #### [facility] [address] [place], [address] Sodium [Moles/Vol] 141 mmol/L Normal 133-145 [facility] Comment on above: Performed By: #### L 501.9520, L501.4021, L503.7505, L500.2500, L100.0100, L501.5200 #### [facility] [address] [place], [address] Urea nitrogen [Mass/Vol] 19 mg/dL Normal 4-19 [facility] Comment on above: Performed By: #### L 501.9520, L501.4021, L503.7505, L500.2500, L100.0100, L501.5200 #### [facility] [address] [place], [address] Basophil percentageOrdered B y: ED PROVIDER on 04-13-2025 Basophils/100 WBC (Bld) 0.5 % 0-1 [facility] Bedside Glucoseon 04-13-2025 FINGERSTICK GLU 108 mg/dL High 74-106 [facility] Comment on above: Result Comment: CHELA BAILEY OF PATIENT CARE PER NURSING PROTOCOL Performed By: #### L 501.9520, L501.4021, L503.7505, L500.2500, L100.0100, L501.5200 #### [facility] [address] [place], [address] Bilirubin Test strip Ql (U)O rdered By: Sen Olivas on 04-13-2025 Bilirubin Ql (U) Negative Negative [facility] Brain/Head without Contrasto n 04-13-2025 Brain/Head without Contrast [facility] Imaging Services [address] [address] Brain/Head without Contrast MR#: [id number] Acct: [id number] Name: GREGG FERRIS Rep #: [id number] : 1945 F 79 From: Ciro Rey DO PCP: Dr. Rangel Bonilla MD Status: REG ER Study: Brain/Head without Contrast Date of Exam: 06/30 Exam# [id number] Ordering Dr: Sen Olivas DO PROCEDURE: BRAIN/HEAD WITHOUT CONTRAST 04/13/2025 REASON FOR EXAM: DIZZINESS, ON COUMADIN, HX OF SUBDURAL hematoma 20 years ago TECHNIQUE: Head CT without intravenous contrast. Coronal and Sagittal reconstruction series were provided. One or more dose reduction techniques were used (e.g., Automated exposure control, adjustment of the mA and/or kV according to patient size, use of iterative reconstruction technique. RADIATION DOSE SUMMARY: CTDlvol: 44.99 mGy DLP: 796.11 mGycm COMPARISON: None. FINDINGS: Brain: No intra-axial or extra-axial hemorrhage. No mass, mass effect or midline shift. Periventricular and deep white matter hypodensity indicating chronic small-vessel ischemic disease. Ventricles and sulci mildly increased suggesting involution. Sinuses/Mastoids: Clear. Bones: Right craniotomy defects consistent with history of subdural hematoma and surgical therapy is implied. CT/Brain/Head without Contrast IMPRESSION: No acute process detected. Reading Location: [facility] CC: Dr. Rangel Bonilla MD; Dr. Sen Olivas DO Advertising Executive: Signed Normal [facility] CBC W/Diff, Automatedon Absolute Lymph 2.25 X10 3/uL Normal 0.83-4.51 [facility] Comment on above: Performed By: #### L 501.9548, L501.4021, L503.7505, L500.2500, L100.0100, L501.5200 #### [facility] [address] [place], [address] Absolute Neut 4.9 X10 3/uL Normal 2.0-7.7 [facility] Comment on above: Performed By: #### L 501.9520, L501.4021, L503.7505, L500.2500, L100.0100, L501.5200 #### [facility] [address] [place], [address] Basophils/100 WBC (Bld) 0.5 % Normal 0-1 [facility] Comment on above: Performed By: #### L 501.9520, L501.4021, L503.7505, L500.2500, L100.0100, L501.5200 #### [facility] [address] [place], [address] Eosinophils/100 WBC (Bld) 1.3 % Normal 0-5 [facility] Comment on above: Performed By: #### L 501.9520, L501.4021, L503.7505, L500.2500, L100.0100, L501.5200 #### [facility] [address] [place], [address] Erythrocyte distribution width (RBC) [Ratio] 13.4 % Normal 11.6-14.6 [facility] Comment on above: Performed By: #### L 501.9520, L501.4021, L503.7505, L500.2500, L100.0100, L501.5200 #### [facility] [address] [place], [address] Hematocrit (Bld) [Volume fraction] 47.2 % High 37-47 [facility] Comment on above: Performed By: #### L 501.9520, L501.4021, L503.7505, L500.2500, L100.0100, L501.5200 #### [facility] [address] [place], [address] Hemoglobin (Bld) [Mass/Vol] 15.8 g/dL High 12.0-15.0 [facility] Comment on above: Performed By: #### L 501.9520, L501.4021, L503.7505, L500.2500, L100.0100, L501.5200 #### [facility] [address] [place], [address] IG% 0.100 Normal 0.0-0.9 [facility] Comment on above: Result Comment: IG% - Immature Granulocytes (promyelocytes, myelocytes and metamyelocytes) > 1% indicates that a LEFT SHIFT is Present. Performed By: #### L 501.9520, L501.4021, L503.7505, L500.2500, L100.0100, L501.5200 #### [facility] [address] [place], [address] Lymphocytes/100 WBC (Bld) 29.1 % Normal 19-41 [facility] Comment on above: Performed By: #### L 501.9520, L501.4021, L503.7505, L500.2500, L100.0100, L501.5200 #### [facility] [address] [place], [address] MCH (RBC) [Entitic mass] 31.0 pg Normal 27.0-32.0 [facility] Comment on above: Performed By: #### L 501.9520, L501.4021, L503.7505, L500.2500, L100.0100, L501.5200 #### [facility] [address] [place], [address] MCHC (RBC) [Mass/Vol] 33.5 g/dL Normal 32-36 [facility] Comment on above: Performed By: #### L 501.9520, L501.4021, L503.7505, L500.2500, L100.0100, L501.5200 #### [facility] [address] [place], [address] MCV (RBC) [Entitic vol] 92.7 fL Normal 81-99 [facility] Comment on above: Performed By: #### L 501.9520, L501.4021, L503.7505, L500.2500, L100.0100, L501.5200 #### [facility] [address] [place], [address] Monocytes/100 WBC (Bld) 5.4 % Normal 0-10 [facility] Comment on above: Performed By: #### L 501.9520, L501.4021, L503.7505, L500.2500, L100.0100, L501.5200 #### [facility] [address] [place], [address] Neutrophils/100 WBC (Bld) 63.6 % Normal 47-70 [facility] Comment on above: Performed By: #### L 501.9520, L501.4021, L503.7505, L500.2500, L100.0100, L501.5200 #### [facility] [address] [place], [address] Nucleated RBC (Bld) [#/Vol] 0 10*3/uL Normal 0-5 [facility] Comment on above: Performed By: #### L 501.9520, L501.4021, L503.7505, L500.2500, L100.0100, L501.5200 #### [facility] [address] [place], [address] Platelet mean volume (Bld) [Entitic vol] 10.8 fL Normal 6.2-12.0 [facility] Comment on above: Performed By: #### L 501.9520, L501.4021, L503.7505, L500.2500, L100.0100, L501.5200 #### [facility] [address] [place], [address] Platelets (Bld) [#/Vol] 234 10*3/uL Normal 150-450 [facility] Comment on above: Performed By: #### L 501.9520, L501.4021, L503.7505, L500.2500, L100.0100, L501.5200 #### [facility] [address] [place], [address] RBC (Bld) [#/Vol] 5.09 10*6/uL Normal 4.2-5.4 [facility] Comment on above: Performed By: #### L 501.9520, L501.4021, L503.7505, L500.2500, L100.0100, L501.5200 #### [facility] [address] [place], [address] RDW SD 45.5 fl High 35.1-43.9 [facility] Comment on above: Performed By: #### L 501.9520, L501.4021, L503.7505, L500.2500, L100.0100, L501.5200 #### [facility] [address] [place], [address] WBC (Bld) [#/Vol] 7.7 10*3/uL Normal 4.4-11.0 [facility] Comment on above: Performed By: #### L 501.9520, L501.4021, L503.7505, L500.2500, L100.0100, L501.5200 #### [facility] [address] [place], [address] Carbon dioxide, total [Moles /volume] in Central venous bloodOrdered By: ED PROVIDER on 04-13-2025 CO2 [Moles/Vol] 22.3 mmol/L 21.0-32.0 [facility] Chloride assayOrdered By: ED PROVIDER on 04-13-2025 Chloride [Moles/Vol] 107 mmol/L 98-108 [facility] Emergency Department Summary on 04-13-2025 Emergency Department Summary [facility] Medical Records Department [address] [place] [address] Emergency Department Summary 04/13/25 MR#: [id number] Acct: [id number] Name: GREGG FERRIS Rep #: [id number] : 1945 79 From: Sen Olivas DO PCP: Dr. Rangel Bonilla MD Status:DEP ER Location: ED HPI History of Present Illness Chief Complaint: Dizziness Detail of Chief Complaint: Dizziness Informant: patient Narrative Narrative: Patient presents to the emergency department with complaint of dizziness that started this morning when she rolled over in bed. She states that she fell like she was falling. Symptoms did not last long and she was actually able to get up and walk to the bathroom without any difficulty. At another point she had bent over and when she stood up she again felt lightheaded and somewhat off balance like she might fall. She spoke with her son who is a family practitioner and advised her to get evaluated. She has a remote history of subdural hematoma. 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 She denies urinary symptoms. She denies recent illness. She denies falls or head injuries. Currently she is not feeling dizzy at all. She does not describe vertiginous like symptoms. [facility] Medical History Post-menopausal Alcohol use History of steroid therapy Easy bruising PONV (postoperative nausea and vomiting) Non-smoker Cardiology follow-up encounter History of echocardiogram History of stress test Hypertension Hx of migraines UTI (urinary tract infection) DDD (degenerative disc disease), lumbar Spinal stenosis Chronic back pain Cystitis GERD (gastroesophageal reflux disease) Infection due to ESBL-producing Escherichia coli Essential (primary) hypertension Hyperlipidemia Home Medications ???Medication ???Instructions ???Recorded ???Last Taken ???Type ascorbic acid (vitamin C) 1,000 mg 1 cap PO QHS vitamin 04/07/22 Un known History capsule,extended release simvastatin 10 mg tablet 10 mg PO DAILY cholesterol 4 04/04/24 History sumatriptan succinate 100 mg tablet 100 mg PO Q2H PRN migraine head ache 11/08/23 Unknown History ondansetron 4 mg disintegrating 4 mg PO TID PRN nausea and 4 Unknown Rx tablet vomiting #21 tabs amitriptyline 25 mg tablet 25 mg PO QHS #30 tabs 11/08/24 Unk nown Rx cephalexin 250 mg capsule 250 mg PO QHS 11/08/24 Unknown His tory d-mannose 500 mg capsule 2,000 mg PO DAILY 11/08/24 Unknown History prednisone 10 mg tablet 10 mg PO QDAY #30 tabs 11/08/24 Un known Rx vitamins A,C,A-mced-gffxwg 2,148 2 tab PO BID 11/08/24 Unknown Hist ory mcg-113 mg-45 mg-17.4 mg tablet (PreserVision AREDS) esomeprazole magnesium 20 mg 20 mg PO DAILY reflux #30 caps Unknown Rx capsule,delayed release famotidine 20 mg tablet 20 mg PO QHS reflux #60 tabs 02/11 Unknown Rx meclizine 25 mg tablet 25 mg PO TID PRN dizziness #14 tab s 04/13/25 Unknown Rx Allergy/AdvReac Type Severity Reaction Status Date / Time No Known Allergies Allergy Verified 04/13/25 12:19 Family History Mother Heart disease Father Heart disease Brother Heart disease CAD (coronary artery disease) Surgical History History of back surgery S/P subdural hematoma evacuation History of appendectomy History of laparoscopic cholecystectomy History of hysterectomy Social History household members: spouse housing: house Smoking Status: Never smoker ROS ROS ED Review of Systems ROS Unobtainable: other Constitutional Constitutional ED: Reports lethargy; Denies chills, fever(s), sweats or weight loss Eyes Eyes: Denies blurry vision, change in vision or diplopia ENT ENT ED: Denies rhinorrhea or sore throat Cardiovascular Cardiovascular: Denies chest pain, orthopnea or racing heartbeat Respiratory/Chest Respiratory/Chest: Denies cough, dyspnea, dyspnea on exertion, orthopnea or sputum Gastrointestinal Gastrointestinal: Denies abdominal pain, diarrhea, nausea or vomiting Genitourinary Genitourinary ED: Denies dysuria, hematuria or urinary frequency Musculoskeletal Musculoskeletal: Denies arthralgias, back pain, myalgias or neck pain Integumentary Denies abscess, Abrasions or rash Neurologic Neurologic: Reports other Details: Dizziness ; Denies headache(s) or weakness Psychiatric Psychiatric: Denies anxiety, depression or suicidal thoughts Endocrine Endocrinology: Denies polydipsia, polyphagia or polyuria Hematologic/Lymphatic Hematologic/Lymphatic: Denies easy bleeding, easy bruising or lymphadenopathy Allergic/Immunologic Allergic/Immunologic ED: Denies (more content not included)... Normal [facility] Eosinophil percentageOrdered By: ED PROVIDER on 04-13-2025 Eosinophils/100 WBC (Bld) 1.3 % 0-5 [facility] Erythrocyte distribution wid th ratioOrdered By: ED PROVIDER on 04-13-2025 Erythrocyte distribution width (RBC) [Ratio] 13.4 % 11.6-14.6 [facility] Erythrocyte distribution wid th standard deviationOrdered By: ED PROVIDER on 04-13-2025 Erythrocyte distribution width (RBC) [Ratio] 45.5 fl High 35.1-43.9 [facility] Glomerular filtration rate ( GFR) estimation/1.73 sq m using serum, plasma, or whole bOrdered By: ED PROVIDER on 04-13-2025 GFR/1.73 sq M.predicted among non-blacks MDRD (S/P/Bld) [Vol rate/Area] 75 mL/min/{1.73_m2} >60 [facility] Comment on above: mL/min/1.73m2 CKD-EP I Creatinine Equation (2020) Glucose measurement at bedsi deOrdered By: ED PROVIDER on 04-13-2025 Glucose [Mass/Vol] 108 mg/dL High 74-106 [facility] Comment on above: MANAGEMENT OF PATIEN T CARE PER NURSING PROTOCOL Hematocrit Auto (Bld) [Volum e fraction]Ordered By: ED PROVIDER on 04-13-2025 Hematocrit (Bld) [Volume fraction] 47.2 % High 37-47 [facility] Hemoglobin measurementOrdere d By: ED PROVIDER on 04-13-2025 Hemoglobin (Bld) [Mass/Vol] 15.8 g/dL High 12.0-15.0 [facility] Immature granulocytes/100 WB C Auto (Bld)Ordered By: ED PROVIDER on 04-13-2025 Immature granulocytes/100 WBC (Bld) 0.100 % 0.0-0.9 [facility] Comment on above: IG% - Immature Granu locytes (promyelocytes, myelocytes and metamyelocytes) > 1% indicates that a LEFT SHIFT is Present. International normalized rat io (INR) calculationOrdered By: ED PROVIDER on 04-13-2025 INR Coag (Bld) [Relative time] 1.9 {INR} [facility] Ketones Test strip Ql (U)Ord ered By: Sen Olivas on 04-13-2025 Ketones Ql (U) Negative Negative [facility] MCV (mean corpuscular volume ) determinationOrdered By: ED PROVIDER on 04-13-2025 MCV (RBC) [Entitic vol] 92.7 fL 81-99 [facility] Mean corpuscular hemoglobin (MCH) determinationOrdered By: ED PROVIDER on 04-13-2025 MCH (RBC) [Entitic mass] 31.0 pg 27.0-32.0 [facility] Mean corpuscular hemoglobin concentration (MCHC) determinationOrdered By: ED PROVIDER on 04-13-2025 MCHC (RBC) [Mass/Vol] 33.5 g/dL 32-36 [facility] Mean platelet volume determi nationOrdered By: ED PROVIDER on 04-13-2025 Platelet mean volume (Bld) [Entitic vol] 10.8 fL 6.2-12.0 [facility] Microscopic analysis of urin e for red blood cells (RBC)Ordered By: Sen Olivas on 04-13-2025 Microscopic analysis of urine for red blood cells (RBC) 0-5 SEEN /hpf 0-5 [facility] Monocyte percentageOrdered B y: ED PROVIDER on 04-13-2025 Monocytes/100 WBC (Bld) 5.4 % 0-10 [facility] Mucus LM Ql (Urine sed)Order ed By: Sen Olivas on 04-13-2025 Mucus Ql (Urine sed) 0 SEEN /hpf [facility] Neutrophil percentageOrdered By: ED PROVIDER on 04-13-2025 Neutrophils/100 WBC (Bld) 63.6 % 47-70 [facility] Nitrite Test strip Ql (U)Ord ered By: Sen Olivas on 04-13-2025 Nitrite Ql (U) Negative Negative [facility] Nucleated red blood cell per centageOrdered By: ED PROVIDER on 04-13-2025 Nucleated RBC/100 WBC (Bld) [Ratio] 0 % 0-5 [facility] Partial Thromboplast Timeon 04-13-2025 aPTT Coag (Bld) [Time] 28.0 s Normal 24.1-36.2 [facility] Comment on above: Performed By: #### L 501.9520, L501.4021, L503.7505, L500.2500, L100.0100, L501.5200 #### [facility] [address] [place], [place], [address] Platelet countOrdered By: ED PROVIDER on 04-13-2025 Platelets (Bld) [#/Vol] 234 10*3/uL 150-450 [facility] Potassium measurement (mass/ volume)Ordered By: ED PROVIDER on 04-13-2025 Potassium (Unsp spec) [Mass/Vol] 4.1 mmol/L 3.3-5.1 [facility] Protein Test strip Ql (U)Ord ered By: Sen Olivas on 04-13-2025 Protein Ql (U) Negative Negative [facility] Prothrombin Time w/INRon INR Normal [facility] Comment on above: Result Comment: OK T O CANCEL PER LIAM RN Performed By: #### L 501.9520, L501.4021, L503.7505, L500.2500, L100.0100, L501.5200 #### [facility] [address] [place], [place], [id number] PROTIME Normal 11.7-14.9 [facility] Comment on above: Result Comment: OK T O CANCEL PER LIAM RN Performed By: #### L 501.9520, L501.4021, L503.7505, L500.2500, L100.0100, L501.5200 #### [facility] [address] [place], [address] INR Coag (PPP) [Relative time] 1.9 {INR} Normal [facility] Comment on above: Performed By: #### L 501.9520, L501.4021, L503.7505, L500.2500, L100.0100, L501.5200 #### [facility] [address] [place], [address] PT Coag (PPP) [Time] 22.0 s High 11.7-14.9 [facility] Comment on above: Performed By: #### L 501.9520, L501.4021, L503.7505, L500.2500, L100.0100, L501.5200 #### [facility] [address] [place], [address] Prothrombin timeOrdered By: ED PROVIDER on 04-13-2025 PT Coag (PPP) [Time] 22.0 s High 11.7-14.9 [facility] RBC Auto (Bld) [#/Vol]Ordere d By: ED PROVIDER on 04-13-2025 RBC (Bld) [#/Vol] 5.09 10*6/uL 4.2-5.4 [facility] Serum creatinine measurement (mass/volume)Ordered By: ED PROVIDER on 04-13-2025 Creatinine [Mass/Vol] 0.79 mg/dL 0.70-1.20 [facility] Serum glucose measurement (m ass/volume)Ordered By: ED PROVIDER on 04-13-2025 Glucose [Mass/Vol] 116 mg/dL High 70-99 [facility] Serum or plasma calcium chan urement (mass/volume)Ordered By: ED PROVIDER on 04-13-2025 Calcium [Mass/Vol] 9.3 mg/dL 7.6-11.0 [facility] Serum or plasma urea nitroge n measurement (mass/volume)Ordered By: ED PROVIDER on 04-13-2025 Urea nitrogen [Mass/Vol] 19 mg/dL 4-19 [facility] Sodium levelOrdered By: ED P STEFFI on 04-13-2025 Sodium [Moles/Vol] 141 mmol/L 133-145 [facility] Squamous epithelial cells de tection in urine sediment by light microscopyOrdered By: Sen Olivas on 04-13-2025 Epithelial cells.squamous LM Ql (Urine sed) 10-25 SEEN /hpf 5-10 [facility] Urinalysis, Completeon 04-13 BACTERIA 1+ /hpf Normal None Seen [facility] Comment on above: Order Comment: COLLE CTOR TO SPECIFY Performed By: #### L 501.9520, L501.4021, L503.7505, L500.2500, L100.0100, L501.5200 #### [facility] [address] [place], [address] EPI,SQUAMOUS 10-25 SEEN Normal 5-10 [facility] Comment on above: Order Comment: COLLE CTOR TO SPECIFY Performed By: #### L 501.9520, L501.4021, L503.7505, L500.2500, L100.0100, L501.5200 #### [facility] [address] [place], [place], [address] RBC 0-5 SEEN Normal 0-5 [facility] Comment on above: Order Comment: COLLE CTOR TO SPECIFY Performed By: #### L 501.9520, L501.4021, L503.7505, L500.2500, L100.0100, L501.5200 #### [facility] [address] [place], [place], [address] YEAST 2+ /hpf Normal None Seen [facility] Comment on above: Order Comment: COLLE CTOR TO SPECIFY Performed By: #### L 501.9520, L501.4021, L503.7505, L500.2500, L100.0100, L501.5200 #### [facility] [address] [place], [address] Mucus Ql (Urine sed) 0 SEEN Normal [facility] Comment on above: Order Comment: RAJIV CTOR TO SPECIFY Performed By: #### L 501.9520, L501.4021, L503.7505, L500.2500, L100.0100, L501.5200 #### [facility] [address] [place], [address] WBC 0 SEEN Normal 0-5 [facility] Comment on above: Order Comment: RAJIV CTOR TO SPECIFY Performed By: #### L 501.9520, L501.4021, L503.7505, L500.2500, L100.0100, L501.5200 #### [facility] [address] [facility] [place], [address] Urine clarityOrdered By: Deb Olivas on 04-13-2025 Clarity (U) Sl. Cloudy Clear [facility] Urine color determinationOrd ered By: Sen Olivas on 04-13-2025 Color (U) Yellow Yellow [facility] Urine glucose detectionOrder ed By: Sen Olivas on 04-13-2025 Glucose Ql (U) Normal mg/dl Normal [facility] Urine leukocyte esterase det ection by dipstickOrdered By: Sen Olivas on 04-13-2025 Leukocyte esterase Test strip Ql (U) Negative Negative [facility] Urine pHOrdered By: Sen Griffin gur on 04-13-2025 pH (U) 7.0 [pH] 5.0 - 8.0 [facility] Urine sediment bacteria coun t by microscopy (number/high power field)Ordered By: Sen Olivas on 04-13-2025 Bacteria LM.HPF (Urine sed) [#/Area] 1 /[HPF] None Seen [facility] Urine sediment yeast count b y microscopy (number/high powered field)Ordered By: Sen Olivas on 04-13-2025 Yeast LM.HPF (Urine sed) [#/Area] 2 /[HPF] None Seen [facility] Urine specific gravity measu rementOrdered By: Sen Olivas on 04-13-2025 Specific gravity (U) [Rel density] 1.010 1.002-1.030 [facility] Urine urobilinogen measureme ntOrdered By: Sen Olivas on 04-13-2025 Urobilinogen Ql (U) Normal mg/dl Normal [facility] White blood cell (WBC) count Ordered By: ED PROVIDER on 04-13-2025 WBC (Bld) [#/Vol] 7.7 10*3/uL 4.4-11.0 [facility] White blood cell countOrdere d By: Sen Olivas on 04-13-2025 White blood cell count 0 SEEN /hpf 0-5 [facility] CNPNon 04-10-2025 CNPN Normal [facility] PT panel Coag (PPP)Ordered B y: Charline Moreirastevearic on 04-10-2025 INR Coag (PPP) [Relative time] 2.1 {INR} High 0.9 - 1.3 [facility] Comment on above: Vitamin K Antagonist (VKA) Therapeutic Range: INR 2 to 3 (Target INR of 2.5) Note: For patients treated with VKA drugs, such as warfarin, the [employer] 2012 Guideline recommends a therapeutic INR range of 2 to 3 (target INR of 2.5). This recommendation includes high-risk patients with antiphospholipid syndrome with previous arterial or venous thromboembolism, current-generation mechanical or bioprosthetic aortic heart valve replacement. Note: Patients with mechanical aortic valve replacement and additional risk factors for thromboembolic events (atrial fibrillation, previous thromboembolism, LV dysfunction, hypercoagulable conditions) or an older generation mechanical AVR (i.e., ball in-Cage) or any mechanical MVR should have a INR therapeutic range of 2.5 to 3.5 (target INR of 3). Raza GH, et al. Chest 2012, 141:7S-47S Angelique RA, et al. [facility] 2017, 70: 252-289 Interpretation and review of laboratory results Abnormal [facility] PT Coag (PPP) [Time] 20.6 s High [facility] PT panel Coag (PPP)on 2024 INR Coag (PPP) [Relative time] 2.1 {INR} High 0.9-1.3 [facility] Comment on above: Order Comment: Thu aleman Type: BLOOD SPECIMENOrdering Facility: [facility] Address: [address] [place], [place] [id number] Result Comment: Fabiana min K Antagonist (VKA) Therapeutic Range: INR 2 to 3 (Target INR of 2.5)Note: For patients treated with VKA drugs, such as warfarin, the [employer] [employer] 2012 Guideline recommends a therapeutic INR range of 2 to 3 (target INR of 2.5). This recommendation includes high-risk patients with antiphospholipid syndrome with previous arterial or venous thromboembolism, current-generation mechanical or bioprosthetic aortic heart valve replacement.Note: Patients with mechanical aortic valve replacement and additional risk factors for thromboembolic events (atrial fibrillation, previous thromboembolism, LV dysfunction, hypercoagulable conditions) or an older generation mechanical AVR (i.e., ball in-Cage) or any mechanical MVR should have a INR therapeutic range of 2.5 to 3.5 (target INR of 3).Raza GH, et al. Chest 2012, 141:7S-47SNishimura RA, et al. [facility] 2017, 70: 252-289 Performed By: #### 3 4528-0 ####[facility] [id number] [place] [address] [place] PT Coag (PPP) [Time] 20.6 s High <13.1 [facility] Comment on above: Order Comment: Thu aleman Type: BLOOD SPECIMENOrdering Facility: [facility] Address: [address] [place] [id number] Performed By: #### 3 4528-0 ####[facility] [id number] [place] [address] [place] CNPNon 04-03-2025 CNPN Normal [facility] PT panel Coag (PPP)on 2024 INR Coag (PPP) [Relative time] 5.1 {INR} High 0.9-1.3 [facility] Comment on above: Order Comment: Thu aleman Type: BLOOD SPECIMENOrdering Facility: [facility] Address: [address] [place] [address] Result Comment: Fabiana min K Antagonist (VKA) Therapeutic Range: INR 2 to 3 (Target INR of 2.5)Note: For patients treated with VKA drugs, such as warfarin, the [place] [employer] 2012 Guideline recommends a therapeutic INR range of 2 to 3 (target INR of 2.5). This recommendation includes high-risk patients with antiphospholipid syndrome with previous arterial or venous thromboembolism, current-generation mechanical or bioprosthetic aortic heart valve replacement.Note: Patients with mechanical aortic valve replacement and additional risk factors for thromboembolic events (atrial fibrillation, previous thromboembolism, LV dysfunction, hypercoagulable conditions) or an older generation mechanical AVR (i.e., ball in-Cage) or any mechanical MVR should have a INR therapeutic range of 2.5 to 3.5 (target INR of 3).Raza GH, et al. Chest 2012, 141:7S-47SNishtalat RA, et al. [facility] 2017, 70: 252-289 Performed By: #### 3 4528-0 ####[facility] [id number] [place] [address] [place] PT Coag (PPP) [Time] 47.8 s High <13.1 [facility] Comment on above: Order Comment: Thu aleman Type: BLOOD SPECIMENOrdering Facility: [facility] Address: [address] [place], [place] [id number] Performed By: #### 3 4528-0 ####[facility] [id number] [place] [address] [place] CNPNon 03-25-2025 CNPN Normal [facility] CNPNon 03-24-2025 CNPN Normal [facility] PT panel Coag (PPP)on 2024 INR Coag (PPP) [Relative time] 2.4 {INR} High 0.9-1.3 [facility] Comment on above: Order Comment: Thu aleman Type: BLOOD SPECIMENOrdering Facility: [facility] Address: [address] [id number] Result Comment: Fabiana min K Antagonist (VKA) Therapeutic Range: INR 2 to 3 (Target INR of 2.5)Note: For patients treated with VKA drugs, such as warfarin, the [place] [employer] 2012 Guideline recommends a therapeutic INR range of 2 to 3 (target INR of 2.5). This recommendation includes high-risk patients with antiphospholipid syndrome with previous arterial or venous thromboembolism, current-generation mechanical or bioprosthetic aortic heart valve replacement.Note: Patients with mechanical aortic valve replacement and additional risk factors for thromboembolic events (atrial fibrillation, previous thromboembolism, LV dysfunction, hypercoagulable conditions) or an older generation mechanical AVR (i.e., ball in-Cage) or any mechanical MVR should have a INR therapeutic range of 2.5 to 3.5 (target INR of 3).Raza COWART, et al. Chest 2012, 141:7S-47SAngelique RA, et al. [facility] 2017, 70: 252-289 Performed By: #### 3 4528-0 ####[facility] [id number] [place] [address] [place] PT Coag (PPP) [Time] 23.6 s High <13.1 [facility] Comment on above: Order Comment: Speci men Type: BLOOD SPECIMENOrdering Facility: [facility] Address: [address] [place] [address] Performed By: #### 3 4528-0 ####[facility] [id number] [place] [address] [place] CNPNon 03-21-2025 CNPN Normal [facility] CNOVon 03-17-2025 CNOV Normal [facility] CNPNon 03-17-2025 CNPN Normal [facility] Bacteria Ur Culton 5 Bacteria identified Cx Nom (U) ORGANISM ID: 1 10,000 -<50,000 CFU/ml Normal urogenital aristeo Normal [facility] Comment on above: Performed By: #### 6 30-4 ####[facility] LABCLIA [id number] [place] [address] [place] CNOVon 02-26-2025 CNOV Normal [facility] [id number] 02-26-2025 ECG01 Normal [facility] CBC W Auto Differential pane l (Bld)on 02-14-2025 Basophils (Bld) [#/Vol] 0.03 10*3/uL Normal <0.11 [facility] Comment on above: Order Comment: Speci men Type: BLOOD SPECIMENOrdering Facility: [facility] Address: [address] [place] [address] Performed By: #### 5 7021-8 ####[facility] LABIA [id number] [place] [address] [place] Basophils/100 WBC (Bld) 0.5 % Normal [facility] Comment on above: Order Comment: Speci men Type: BLOOD SPECIMENOrdering Facility: [facility] Address: [address] [place] [address] Performed By: #### 5 7021-8 ####[facility] LABIA [id number] [place] [address] [place] Differential cell count method Nom (Bld) Auto Normal [facility] Comment on above: Order Comment: Speci men Type: BLOOD SPECIMENOrdering Facility: [facility] Address: [address] [place] [address] Performed By: #### 5 7021-8 ####[facility] LABCLIA [id number] [place] [address] [place] Eosinophils (Bld) [#/Vol] 0.21 10*3/uL Normal <0.46 [facility] Comment on above: Order Comment: Speci men Type: BLOOD SPECIMENOrdering Facility: [facility] Address: [address] [place] [address] Performed By: #### 5 7021-8 ####[facility] LABCLIA [id number] [address] [place] [address] [place] Eosinophils/100 WBC (Bld) 3.3 % Normal [facility] Comment on above: Order Comment: Speci men Type: BLOOD SPECIMENOrdering Facility: [facility] Address: [address] [place] [address] Performed By: #### 5 7021-8 ####[facility] LABCLIA [id number] [address], [place] [address] [place] Erythrocyte distribution width (RBC) [Ratio] 12.3 % Normal 11.5-15.0 [facility] Comment on above: Order Comment: Speci men Type: BLOOD SPECIMENOrdering Facility: [facility] Address: [address] [place] [address] Performed By: #### 5 7021-8 ####[facility] LABCLIA [id number] [address], [place] [address] [place] Hematocrit (Bld) [Volume fraction] 43.4 % Normal 36.0-46.0 [facility] Comment on above: Order Comment: Speci men Type: BLOOD SPECIMENOrdering Facility: [facility] Address: [address] [place] [address] Performed By: #### 5 7021-8 ####[facility] LABCLIA [id number] [facility] [address], [facility] [place] Hemoglobin (Bld) [Mass/Vol] 13.8 g/dL Normal 11.5-15.5 [facility] Comment on above: Order Comment: Speci men Type: BLOOD SPECIMENOrdering Facility: [facility] Address: [address] [place] [address] Performed By: #### 5 7021-8 ####[facility] LABCLIA [id number] [facility] [address] [place] [address] [place] Immature granulocytes (Bld) [#/Vol] 10*3/uL Normal <0.10 [facility] Comment on above: Order Comment: Speci men Type: BLOOD SPECIMENOrdering Facility: [facility] Address: [address] [place] [address] Performed By: #### 5 7021-8 ####[facility] LABCLIA [id number] [address] STATES [facility] Immature granulocytes/100 WBC (Bld) 0.2 % Normal [facility] Comment on above: Order Comment: Speci men Type: BLOOD SPECIMENOrdering Facility: [facility] Address: [address] [place] [address] Performed By: #### 5 7021-8 ####[facility] LABCLIA [id number] [place] [address] [place] Lymphocytes (Bld) [#/Vol] 1.80 10*3/uL Normal 1.00-4.00 [facility] Comment on above: Order Comment: Speci men Type: BLOOD SPECIMENOrdering Facility: [facility] Address: [address] [place] [address] Performed By: #### 5 7021-8 ####[facility] LABCLIA [id number] [place] [address] [place] Lymphocytes/100 WBC (Bld) 28.7 % Normal [facility] Comment on above: Order Comment: Speci men Type: BLOOD SPECIMENOrdering Facility: [facility] Address: [address] [place] [address] Performed By: #### 5 7021-8 ####[facility] LABCLIA [id number] [place] [id number] [place] MCH (RBC) [Entitic mass] 30.9 pg Normal 26.0-34.0 [facility] Comment on above: Order Comment: Speci men Type: BLOOD SPECIMENOrdering Facility: [facility] Address: [address] [place] [address] Performed By: #### 5 7021-8 ####[facility] LABCLIA [id number] [place] [address] [place] MCHC (RBC) [Mass/Vol] 31.8 g/dL Normal 30.5-36.[address] [facility] Comment on above: Order Comment: Speci men Type: BLOOD SPECIMENOrdering Facility: [facility] Address: [address] [place] [address] Performed By: #### 5 7021-8 ####[facility] LABIA [id number] [place] [address] [place] MCV (RBC) [Entitic vol] 97.1 fL Normal 80.0-100.0 C [facility] Comment on above: Order Comment: Speci men Type: BLOOD SPECIMENOrdering Facility: [facility] Address: [address] [place] [address] Performed By: #### 5 7021-8 ####[facility] LABIA [id number] [place] [address] [place] Monocytes (Bld) [#/Vol] 0.40 10*3/uL Normal <0.87 [facility] Comment on above: Order Comment: Speci men Type: BLOOD SPECIMENOrdering Facility: [facility] Address: [address] [place] [address] Performed By: #### 5 7021-8 ####[facility] LABIA [id number] [place] [address] [place] Monocytes/100 WBC (Bld) 6.4 % Normal C [facility] Comment on above: Order Comment: Speci men Type: BLOOD SPECIMENOrdering Facility: [facility] Address: [address] [place] [address] Performed By: #### 5 7021-8 ####[facility] LABCLIA [id number] [place] [id number] [place] Neutrophils (Bld) [#/Vol] 3.83 10*3/uL Normal 1.45-7.50 [facility] Comment on above: Order Comment: Speci men Type: BLOOD SPECIMENOrdering Facility: [facility] Address: [address] [place] [address] Performed By: #### 5 7021-8 ####[facility] LABIA [id number] [place] [address] [place] Neutrophils/100 WBC (Bld) 60.9 % Normal [facility] Comment on above: Order Comment: Speci men Type: BLOOD SPECIMENOrdering Facility: [facility] Address: [address] [place] [address] Performed By: #### 5 7021-8 ####[facility] LABIA [id number] [place] [address] [place] Nucleated RBC (Bld) [#/Vol] 10*3/uL Normal <0.01 [facility] Comment on above: Order Comment: Speci men Type: BLOOD SPECIMENOrdering Facility: [facility] Address: [address] [place] [address] Performed By: #### 5 7021-8 ####[facility] LABIA [id number] [place] [address] [place] Nucleated RBC/100 WBC (Bld) [Ratio] 0.0 /100 WBC Normal [facility] Comment on above: Order Comment: Speci men Type: BLOOD SPECIMENOrdering Facility: [facility] Address: [address] [place] [address] Performed By: #### 5 7021-8 ####[facility] LABIA [id number] [place] [address] [place] Platelet mean volume (Bld) [Entitic vol] 11.6 fL Normal 9.0-12.7 [facility] Comment on above: Order Comment: Speci men Type: BLOOD SPECIMENOrdering Facility: [facility] Address: [address] [place] [address] Performed By: #### 5 7021-8 ####[facility] LABCLIA [id number] [address] [address] [place] Platelets (Bld) [#/Vol] 220 10*3/uL Normal 150-400 [facility] Comment on above: Order Comment: Speci men Type: BLOOD SPECIMENOrdering Facility: [facility] Address: [address] [place] [address] Performed By: #### 5 7021-8 ####[facility] LABCLIA [id number] [address] [address] [place] RBC (Bld) [#/Vol] 4.47 10*6/uL Normal 3.90-5.20 [facility] Comment on above: Order Comment: Speci men Type: BLOOD SPECIMENOrdering Facility: [facility] Address: [address] [place] [address] Performed By: #### 5 7021-8 ####[facility] LABIA [id number] [place] [address] [place] WBC (Bld) [#/Vol] 6.28 10*3/uL Normal 3.70-11.00 [facility] Comment on above: Order Comment: Speci men Type: BLOOD SPECIMENOrdering Facility: [facility] Address: [address] [place] [address] Performed By: #### 5 7021-8 ####[facility] LABIA [id number] [place] [id number] [place] Comprehensive metabolic 2000 panelon 02-14-2025 Albumin [Mass/Vol] 4.0 g/dL Normal 3.9-4.9 [facility] Comment on above: Order Comment: Speci men Type: BLOOD SPECIMENOrdering Facility: [facility] Address: [address] [place] [address] Performed By: #### 2 4323-8, LIPNF, 2132-9, 41205-7 ####[facility] LABCLIA [id number] [address] [address] [place] ALP [Catalytic activity/Vol] 55 U/L Normal 34-123 [facility] Comment on above: Order Comment: Speci men Type: BLOOD SPECIMENOrdering Facility: [facility] Address: [address] [place] [address] Performed By: #### 2 4323-8, LIPNF, 2132-07, ####[facility] LABCLIA [id number] [place] [id number] [place] ALT [Catalytic activity/Vol] 12 U/L Normal 7-38 [facility] Comment on above: Order Comment: Speci men Type: BLOOD SPECIMENOrdering Facility: [facility] Address: [address] [place] [address] Performed By: #### 2 4323-8, LIPNF, 2132-07, ####[facility] LABCLIA [id number] [place] [id number] [place] Anion gap [Moles/Vol] 11 mmol/L Normal 8-[address] [facility] Comment on above: Order Comment: Speci men Type: BLOOD SPECIMENOrdering Facility: [facility] Address: [address] [place] [address] Performed By: #### 2 4323-8, LIPNF, 2132-07, ####[facility] LABCLIA [id number] [place] [id number] [place] AST [Catalytic activity/Vol] 19 U/L Normal 13-35 [facility] Comment on above: Order Comment: Speci men Type: BLOOD SPECIMENOrdering Facility: [facility] Address: [address] [place] [address] Performed By: #### 2 4323-8, LIPNF, 2132-07, ####[facility] LABCLIA [id number] [address] [address] [place] Bilirubin [Mass/Vol] 0.5 mg/dL Normal 0.2-1.3 [facility] Comment on above: Order Comment: Speci men Type: BLOOD SPECIMENOrdering Facility: [facility] Address: [address] [place] [address] Performed By: #### 2 4323-8, LIPNF, 2132-07, ####[facility] LABCLIA [id number] [place] [address] [place] Calcium [Mass/Vol] 9.4 mg/dL Normal 8.5-10.2 [facility] Comment on above: Order Comment: Speci men Type: BLOOD SPECIMENOrdering Facility: [facility] Address: [address] [place] [address] Performed By: #### 2 4323-8, LIPNF, 2132-07, ####[facility] LABCLIA [id number] [place] [address] [place] Chloride [Moles/Vol] 108 mmol/L High 98-107 [facility] Comment on above: Order Comment: Speci men Type: BLOOD SPECIMENOrdering Facility: [facility] Address: [address] [place] [address] Performed By: #### 2 4323-8, LIPNF, 2132-07, ####[facility] LABCLIA [id number] [place] [address] [place] CO2 [Moles/Vol] 22 mmol/L Normal 22-30 [facility] Comment on above: Order Comment: Speci men Type: BLOOD SPECIMENOrdering Facility: [facility] Address: [address] [place] [address] Performed By: #### 2 4323-8, LIPNF, 2132-07, ####[facility] LABCLIA [id number] [place] [id number] [place] Creatinine [Mass/Vol] 0.76 mg/dL Normal 0.58-0.[address] [facility] Comment on above: Order Comment: Thu aleman Type: BLOOD SPECIMENOrdering Facility: [facility] Address: [address] [place] [address] Performed By: #### 2 4323-8, LIPNF, 2132-07, ####[facility] LABCLIA [id number] [address] OF [facility] Creatinine and Glomerular filtration rate.predicted panel (S/P/Bld) 79 mL/min/1.73m??? Normal >=60 [facility] Comment on above: Order Comment: Thu sah Type: BLOOD SPECIMENOrdering Facility: [facility] Address: [address] [place] [address] Result Comment: So mated Glomerular Filtration Rate (eGFR) is calculated using the 2020 CKD-EPI creatinine equation. This equation utilizes serum creatinine, sex, and age as parameters. The creatinine assay has traceable calibration to isotope dilution-mass spectrometry. Refer to KDIGO guidelines for clinical interpretation. In patients with unstable renal function, e.g. those with acute kidney injury, the eGFR may not accurately reflect actual GFR. Performed By: #### 2 4323-8, LIPNF, 2132-07, ####[facility] LABCLIA [id number] [place] [id number] [place] Glucose [Mass/Vol] 95 mg/dL Normal 74-99 [facility] Comment on above: Order Comment: Thu aleman Type: BLOOD SPECIMENOrdering Facility: [facility] Address: [address] [place] [address] Result Comment: The [place] Diabetes Association (ADA) provides guidance for cutoff values for fasting glucose and random glucose. The ADA defines fasting as no caloric intake for at least 8 hours. Fasting plasma glucose results between 100 to 125 mg/dL indicate increased risk for diabetes (prediabetes).Fasting plasma glucose results greater than or equal to 126 mg/dL meet the criteria for diagnosis of diabetes. In the absence of unequivocal hyperglycemia, results should be confirmed by repeat testing. In a patient with classic symptoms of hyperglycemia or hyperglycemic crisis, random plasma glucose results greater than or equal to 200 mg/dL meet the criteria for diagnosis of diabetes.Reference: Standards of Medical Care in Diabetes 2016, [place] [employer]. Diabetes Care. 2016.39(Suppl 1). Performed By: #### 2 4323-8, LIPNF, 2132-07, ####[facility] LABCLIA [id number] [address] [address] [place] Potassium [Moles/Vol] 4.5 mmol/L Normal 3.7-5.[address] [facility] Comment on above: Order Comment: Speci men Type: BLOOD SPECIMENOrdering Facility: [facility] Address: [address] [place] [address] Performed By: #### 2 4323-8, LIPNF, 2132-07, ####[facility] LABIA [id number] [place] [id number] [place] Protein [Mass/Vol] 6.3 g/dL Normal 6.3-8.0 [facility] Comment on above: Order Comment: Speci men Type: BLOOD SPECIMENOrdering Facility: [facility] Address: [address] [place] [address] Performed By: #### 2 4323-8, LIPNF, 2132-07, ####[facility] LABIA [id number] [place] [id number] [place] Sodium [Moles/Vol] 141 mmol/L Normal 136-144 [facility] Comment on above: Order Comment: Speci men Type: BLOOD SPECIMENOrdering Facility: [facility] Address: [address] [place] [address] Performed By: #### 2 4323-8, LIPNF, 2132-07, ####[facility] LABCLIA [id number] [address] [address] [place] Urea nitrogen [Mass/Vol] 23 mg/dL High 7-21 [facility] Comment on above: Order Comment: Speci men Type: BLOOD SPECIMENOrdering Facility: [facility] Address: [address] [place] [address] Performed By: #### 2 4323-8, LIPNF, 2132-9, 74919-2 ####[facility] LABCLIA [id number] [place] [address] [place] D dimer FEU PPP-mCncon 02-14 Fibrin D-dimer FEU (PPP) [Mass/Vol] 430 ng/mL FEU Normal <500 [facility] Comment on above: Order Comment: Speci men Type: BLOOD SPECIMENOrdering Facility: [facility] Address: [address] [place] [address] Performed By: #### 4 8065-7, 89872-1 ####[facility] LABCLIA [id number] [place], [place] [address] [place] [address] [place] [facility] Fibrin D-dimer FEU (PPP) [Ma ss/Vol]on 02-14-2025 D DIMER AGE-RELATED CUTOFF 810 ng/mL FEU Normal [facility] Comment on above: Order Comment: Speci men Type: BLOOD SPECIMENOrdering Facility: [facility] Address: [address] [place] [address] Performed By: #### 4 8065-7, 48161-2 ####[facility] LABCLIA [id number] [place], [place] [address] [place] [address] [place] [facility] HbA1c (Bld)on 02-14-2025 Average glucose Estimated from glycated hemoglobin (Bld) [Mass/Vol] 100 mg/dL Normal [facility] Comment on above: Order Comment: Speci men Type: BLOOD SPECIMENOrdering Facility: [facility] Address: [address] [place] [address] Result Comment: eAG: (Estimated average glucose) is a calculated value from HgbA1c and is dental sales representative of the average blood glucose level in the last 2-3 month period. Performed By: #### 5 5454-3 ####[facility] LABCLIA [id number] [address] [address] [place] HbA1c (Bld) [Mass fraction] 5.1 % Normal 4.3-5.6 [facility] Comment on above: Order Comment: Speci men Type: BLOOD SPECIMENOrdering Facility: [facility] Address: [address] [place] [address] Result Comment: [place] Diabetes Association guidelines indicate that patients with HgbA1c in the range 5.7-6.4% are at increased risk for development of diabetes, and intervention by lifestyle modification may be beneficial. HgbA1c greater or equal to 6.5% is considered diagnostic of diabetes. Performed By: #### 5 5454-3 ####[facility] LABCLIA [id number] [address] [address] [place] LIPID PANEL, NONFASTINGon Cholesterol [Mass/Vol] 173 mg/dL Normal <200 [facility] Comment on above: Order Comment: Speci men Type: BLOOD SPECIMENOrdering Facility: [facility] Address: [address] [place] [address] Result Comment: <200 mg/dL, Desirable 200-239 mg/dL, Borderline high>239 mg/dL, High Performed By: #### 2 4323-8, LIPNF, 2132-07, ####[facility] LABCLIA [id number] [place] [id number] [place] HDL CHOLESTEROL, NF 76 mg/dL Normal >39 [facility] Comment on above: Order Comment: Speci [facility] Type: BLOOD SPECIMENOrdering Facility: [facility] Address: [address] [place] [address] Result Comment: 40-5 9 mg/dL, Acceptable>59 mg/dL, High: Negative risk factor for coronary heart disease<40 mg/dL, Low: Positive risk factor for coronary heart disease Performed By: #### 2 4323-8, LIPNF, 2132-07, ####[facility] LABCLIA [id number] [place] [address] [place] LDL CHOLESTEROL, NF 88 mg/dL Normal <100 [facility] Comment on above: Order Comment: Thu aleman Type: BLOOD SPECIMENOrdering Facility: [facility] Address: [address] [place] [address] Result Comment: <100 mg/dL, Optimal 100-129 mg/dL, Near optimal/above optimal 130-159 mg/dL, Borderline high 160-189 mg/dL, High>189 mg/dL, Very highSecondary prevention optimal LDL Cholesterol levels are recommended to be < 70 mg/dL Performed By: #### 2 4323-8, LIPNF, 2132-07, ####[facility] LABIA [id number] [address] [place] LDL/HDL RATIO, NF 1.16 mg/dL Normal <2.54 [facility] Comment on above: Order Comment: Thu aleman Type: BLOOD SPECIMENOrdering Facility: [facility] Address: [address] [place] [address] Result Comment: Refe rence:1. National Cholesterol Education Program ATP III Guideline At-A-Glance Quick Desk Reference: National Heart, Lung, and Blood [place]. National Institutes of Health. 2001: NIH Publication No. 01-3305.2. An International Atherosclerosis Society position paper: global recommendations for the management of dyslipidemia: executive summary, Atherosclerosis. 2014: 232(2):410-413. Performed By: #### 2 4323-8, LIPNF, 2132-07, ####[facility] LABIA [id number] [address] [place] NON HDL CHOL, NF 97 mg/dL Normal <130 [facility] Comment on above: Order Comment: Thu ash Type: BLOOD SPECIMENOrdering Facility: [facility] Address: [address] [place] [address] Result Comment: <130 mg/dL, Optimal 130-159 mg/dL, Near optimal/above optimal 160-189 mg/dL, Borderline high 190-219 mg/dL, High>219 mg/dL, Very highSecondary prevention optimal non HDL Cholesterol levels are recommended to be <100 mg/dL Performed By: #### 2 4323-8, LIPNF, 2132-07, ####[facility] LABCLIA [id number] [address] [place] [address] [place] T CHOL/HDL RATIO NF 2.28 mg/dL Normal <5.10 [facility] Comment on above: Order Comment: Speci men Type: BLOOD SPECIMENOrdering Facility: [facility] Address: [address] [place] [address] Performed By: #### 2 4323-8, LIPNF, 2132-07, ####[facility] LABCLIA [id number] [place] [address] [place] TRIGLYCERIDES, NF 44 mg/dL Normal <150 [facility] Comment on above: Order Comment: Speci men Type: BLOOD SPECIMENOrdering Facility: [facility] Address: [address] [place] [address] Result Comment: <150 mg/dL, Normal 150-199 mg/dL, Borderline high 200-499 mg/dL, High>499 mg/dL, Very high Performed By: #### 2 4323-8, LIPNF, 2132-07, ####[facility] LABCLIA [id number] [address], [facility] [place] VLDL CHOLESTEROL, NF 9 mg/dL Normal <30 [facility] Comment on above: Order Comment: Speci men Type: BLOOD SPECIMENOrdering Facility: [facility] Address: [address] [place] [address] Performed By: #### 2 4323-8, LIPNF, 2132-07, ####[facility] LABCLIA [id number] [address] [address] [place] Magnesium SerPl-mCncon 02-14 Magnesium [Mass/Vol] 2.2 mg/dL Normal 1.7-2.3 [facility] Comment on above: Order Comment: Thu aleman Type: BLOOD SPECIMENOrdering Facility: [facility] Address: [address] [place] [address] Performed By: #### 2 4323-8, LIPNF, 2132-9, 35018-9 ####[facility] LABCLIA [id number] [address] [place] PT panel Coag (PPP)on 2024 INR Coag (Bld) [Relative time] 1 {INR} [facility] INR Coag (PPP) [Relative time] 1.0 {INR} Normal 0.9-1.3 [facility] Comment on above: Order Comment: Thu aleman Type: BLOOD SPECIMENOrdering Facility: [facility] Address: [address] [place] [address] Result Comment: Fabiana min K Antagonist (VKA) Therapeutic Range: INR 2 to 3 (Target INR of 2.5)Note: For patients treated with VKA drugs, such as warfarin, the [place] [employer] 2012 Guideline recommends a therapeutic INR range of 2 to 3 (target INR of 2.5). This recommendation includes high-risk patients with antiphospholipid syndrome with previous arterial or venous thromboembolism, current-generation mechanical or bioprosthetic aortic heart valve replacement.Note: Patients with mechanical aortic valve replacement and additional risk factors for thromboembolic events (atrial fibrillation, previous thromboembolism, LV dysfunction, hypercoagulable conditions) or an older generation mechanical AVR (i.e., ball in-Cage) or any mechanical MVR should have a INR therapeutic range of 2.5 to 3.5 (target INR of 3).Raza GH, et al. Chest 2012, 141:7S-47SNishimura RA, et al. [facility] 2017, 70: 252-289 Performed By: #### 4 8065-7, 90401-1 ####[facility] LABCLIA [id number] [place] [address] [place] PT Coag (PPP) [Time] 10.4 s Normal <13.1 [facility] Comment on above: Order Comment: Speci men Type: BLOOD SPECIMENOrdering Facility: [facility] Address: [address] [place] [address] Performed By: #### 4 8065-7, 66482-1 ####[facility] LABCLIA [id number] [place] [address] [place] Vit B12 [facility]Pl[facility] 0[facility] Cobalamin (Vitamin B12) [Mass/Vol] 340 pg/mL Normal [id number] [facility] Comment on above: Order Comment: Speci men Type: BLOOD SPECIMENOrdering Facility: [facility] Address: [address] [place] [address] Performed By: #### 2 4323-8, LIPNF, 2132-9, 54814-0 ####[facility] LABCLIA [id number] [place] [address] [place] CNOVon 01-31-2025 CNOV Normal [facility] CNPNon 01-17-2025 CNPN Normal [facility] Basic metabolic 2000 panelon 01-16-2025 Anion gap [Moles/Vol] 7 mmol/L Low 8-[address] [facility] Comment on above: Order Comment: Speci men Type: BLOOD SPECIMENOrdering Facility: [facility] Address: [address] [place] [address] Performed By: #### 2 4321-2 ####[facility] SAMEER MILLTOWNCLIA [id number] [place] [address] [place] Calcium [Mass/Vol] 9.3 mg/dL Normal 8.5-10.2 [facility] Comment on above: Order Comment: Speci men Type: BLOOD SPECIMENOrdering Facility: [facility] Address: [address] [place] [address] Performed By: #### 2 4321-2 ####[facility] SAMEER MILLTOWNCLIA [id number] [place] [address] [place] Chloride [Moles/Vol] 108 mmol/L High 98-107 [facility] Comment on above: Order Comment: Speci men Type: BLOOD SPECIMENOrdering Facility: [facility] Address: [address] [place] [address] Performed By: #### 2 4321-2 ####[facility] [id number] [place] [address] [place] CO2 [Moles/Vol] 24 mmol/L Normal 22-30 [facility] Comment on above: Order Comment: Speci men Type: BLOOD SPECIMENOrdering Facility: [facility] Address: [address] [place] [address] Performed By: #### 2 4321-2 ####[facility] [id number] [place] [address] [place] Creatinine [Mass/Vol] 0.68 mg/dL Normal 0.58-0.[address] [facility] Comment on above: Order Comment: Speci men Type: BLOOD SPECIMENOrdering Facility: [facility] Address: [address] [place] [address] Performed By: #### 2 4321-2 ####[facility] [id number] [address] OF [facility] Creatinine and Glomerular filtration rate.predicted panel (S/P/Bld) 88 mL/min/1.73m??? Normal >=60 [facility] Comment on above: Order Comment: Speci men Type: BLOOD SPECIMENOrdering Facility: [facility] Address: [address] [place] [address] Result Comment: So mated Glomerular Filtration Rate (eGFR) is calculated using the 2020 CKD-EPI creatinine equation. This equation utilizes serum creatinine, sex, and age as parameters. The creatinine assay has traceable calibration to isotope dilution-mass spectrometry. Refer to KDIGO guidelines for clinical interpretation. In patients with unstable renal function, e.g. those with acute kidney injury, the eGFR may not accurately reflect actual GFR. Performed By: #### 2 4321-2 ####[facility] [id number] [place] [address] [place] Glucose [Mass/Vol] 119 mg/dL High 74-99 [facility] Comment on above: Order Comment: Thu aleman Type: BLOOD SPECIMENOrdering Facility: [facility] Address: [address] [place], [place] [id number] Result Comment: The [place] Diabetes Association (ADA) provides guidance for cutoff values for fasting glucose and random glucose. The ADA defines fasting as no caloric intake for at least 8 hours. Fasting plasma glucose results between 100 to 125 mg/dL indicate increased risk for diabetes (prediabetes).Fasting plasma glucose results greater than or equal to 126 mg/dL meet the criteria for diagnosis of diabetes. In the absence of unequivocal hyperglycemia, results should be confirmed by repeat testing. In a patient with classic symptoms of hyperglycemia or hyperglycemic crisis, random plasma glucose results greater than or equal to 200 mg/dL meet the criteria for diagnosis of diabetes.Reference: Standards of Medical Care in Diabetes 2016, [place] [employer] Association. Diabetes Care. 2016.39(Suppl 1). Performed By: #### 2 4321-2 ####[facility] [id number] [place] [address] [place] Potassium [Moles/Vol] 4.0 mmol/L Normal 3.7-5.[address] [facility] Comment on above: Order Comment: Thu aleman Type: BLOOD SPECIMENOrdering Facility: [facility] Address: [address] [place] [address] Performed By: #### 2 4321-2 ####[facility] [id number] [place] [address] [place] Sodium [Moles/Vol] 139 mmol/L Normal 136-144 [facility] Comment on above: Order Comment: Thu aleman Type: BLOOD SPECIMENOrdering Facility: [facility] Address: [address] [place] [address] Performed By: #### 2 4321-2 ####[facility] LEONWNCLIA [id number] [place] [address] [place] Urea nitrogen [Mass/Vol] 9 mg/dL Normal 7-21 [facility] Comment on above: Order Comment: Speci men Type: BLOOD SPECIMENOrdering Facility: [facility] Address: [address] [place] [id number] Performed By: #### 2 4321-2 ####[facility] LEONWNCLIA [id number] [place] [address] [place] CNOVon 01-15-2025 CNOV Normal [facility] CNOVSPon 01-15-2025 CNOVSP Normal [facility] INFLUENZA A&B MOLECULAR (POC )on 01-15-2025 Flu A (POCT) Negative Negative [facility] Flu B (POCT) Negative Negative [facility] Procedural Control Valid [facility] Location:[facility], [address] [place] [address], [address] [place] [address] POINT OF CARE [facility] CNOVon 01-14-2025 CNOV Normal [facility] CNPNon 01-02-2025 CNPN Telephone (MEPRAD) GREGG FERRIS ([id number]) 1945 F Date Time Provider Department 01/02/25 LORRI CLARK During your visit today, we recorded the following information about you: Lorri Clark, 01/02/2025 6:35 AM Signed Can let her know mammogram and US show stable findings left breast. Benign but radiologist recommended one more 6 month follow up diagnostic left mammogram and US to assure stability. Please pend order and schedule. DO Amber Fernandez Paul A, DO 01/02/2025 10:37 AM Signed Thank you. Orders filed. Lorri Clark DO Simin Denney 01/07/2025 8:56 AM Signed 1st attempt. Message left for patient to contact office for message below. Patient is scheduled for 07/09. Please have patient confirm date/time or reschedule. Brijesh Davis Simin 01/14/2025 8:56 AM Signed Patient called and confirmed Allergies As of Date: 01/02/2025 Noted Allergy Reaction WILLIS INHIBITORS 05/02/2017 3 - Cough CARAFATE (SUCRALFATE) 10/07/2016 6 - Diarrhea ELIQUIS (APIXABAN) 07/18/2024 14 - Other: See Comments Comments: Nausea, decreased appetite and chills PROTONIX (PANTOPRAZOLE) 10/05/2016 14 - Other: See Comments Comments: Stomach pain Date Reviewed: 08/21/2024 Reviewed by: Madison Vazquez MA - Fully Assessed Reason for Visit: Results [95] Primary Visit Diagnosis:Abnormal mammogram of both breasts [R92.8] Order(s):[facility] LEFT [[id number]] Order #: [id number] FUTURE BREAST LTD LEFT [[id number]] Order #: [id number] FUTURE Prescriptions as of 01/14/2025 - warfarin (COUMADIN) 5 mg tablet Starting today 08/12/24 have patient start taking 5 mg Mon, Wed, Th, Fri, Sun and 7.5 mg on , Mon. - enoxaparin (LOVENOX) 40 mg/0.4 mL Do one shot daily till therapeutic on coumadin and intructed by provider to stop. Start on Monday07/20/2024 - ondansetron orally disintegrating (ZOFRAN ODT) 4 mg disintegrating tablet Take 1 tablet by mouth every 8 hours as needed for nausea/vomiting. - estradiol (ESTRACE) 0.01 % (0.1 mg/gram) vaginal cream Use 1 g vaginally every other day. At bedtime - simvastatin (ZOCOR) 10 mg tablet Take 1 tablet by mouth daily at bedtime. - SUMAtriptan (IMITREX) 100 mg tablet Take one tab by month with onset of headache. Can repeat in 2 hrs. Max of 2 tabs in 24 hrs Problem List As Of Date 01/02/2025 Noted Resolved GERD without esophagitis [K21.9] 01/14/2008 Mixed hyperlipidemia [E78.2] 01/14/2008 Elevated blood pressure reading without diagnos*01/14/2008 06/20/2016 Spinal stenosis, lumbar region, without neuroge*03/21/2012 Postmenopausal atrophic vaginitis [N95.2] 06/06/2012 Bladder mass [N32.89] 09/09/2014 Encounter for gynecological examination without*07/20/2016 Essential hypertension [I10] 07/20/2016 Seasonal allergies [J30.2] 07/20/2016 Migraine without aura and without status migrai*07/20/2016 Chronic low back pain [M54.50, G89.29] 07/20/2016 Colon cancer screening [Z12.11] 07/20/2016 Pulmonary nodules [R91.8] 10/03/2016 Right thyroid nodule [E04.1] 10/03/2016 Lichen sclerosus et atrophicus [L90.0] 03/03/2017 History of subdural hematoma [Z86.79] 03/03/2017 Hemorrhoids [K64.9] 03/03/2017 Chronic throat clearing [R09.89] 02/01/2018 Encounter for screening mammogram for breast ca*02/01/2018 History of recurrent UTIs [Z87.440] 07/19/2018 Medicare annual wellness visit, subsequent [Z00*08/14/2018 Elevated fasting blood sugar [R73.01] 08/14/2018 Lumbago [M54.50] 03/21/2012 Diaphragmatic hernia [K44.9] Medication management [Z79.899] 04/16/2020 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 Follow-up with diagnostic mammogram and ultrasound is recommended in 6 months. BI-RADS Category 3: Probably Benign RISK: Based on the Tyrer-Cuzick (TC) risk assessment model, this patient has a 1.0% lifetime risk of developing breast cancer, meaning they are at average risk for developing breast cancer. However, this is only an estimate based on available history provided on the patient's questionnaire. We encourage all patients to talk with their providers about these results, further recommendations for managing breast health, and appropriate supplemental screening options if the patient has dense breast tissue. Interpreting Radiologist: Alfred Garcia M.D. Electronically signed on: 01/01/2025 Advertising Executive: BERNADINE Transcribe Date/Time: Jan 01 2025 8:04A Dictated by: ALFRED GARCIA MD This examination was interpreted and the report reviewed and electronically signed by: ALFRED GARCIA MD on Jan 01 2025 9:03AM [facility] DIVISION OF RADIOLOGY * * *Final Report* * * DATE OF EXAM: Jan 01 2025 8:16AM [facility] 0628 - NAFISA YUKIG W CHANEL LT / PROCEDURE REASON: Abnormal mammogram of both breasts * * * * Physician Interpretation * * * * RESULT: [place] [address] #[id number] - [facility] DIAG W CHANEL LT #[id number] - [facility] US BREAST LTD LT HISTORY: 79 year-old patient seen for diagnostic evaluation of the finding(s) described on prior mammogram in the left breast. Patient states no personal history of breast cancer. COMPARISON STUDIES: The present examination has been compared to prior imaging studies dated 06/06/2024 (mammogram), 06/11/2024 (ultrasound) and 06/11/2024 (mammogram). MAMMOGRAM TECHNIQUE: The study was acquired using full field digital technology and interpreted from soft copy. Digital Breast Tomosynthesis (DBT) images were obtained and used to assist in the interpretation of this examination. MAMMOGRAM FINDINGS: There are scattered areas of fibroglandular density. There is a stable focal asymmetry in the upper outer quadrant of the left breast. ULTRASOUND TECHNIQUE: Targeted ultrasound of the indicated area was performed. Ross scale images were saved. ULTRASOUND FINDINGS: Ultrasound demonstrates a stable parallel lesion with circumscribed margins measuring 0.5 cm in the left breast at 1 o'clock, middle depth, 6 cm from the nipple. Internal echotexture is hypoechoic. DIVISION OF RADIOLOGY Provider, [facility] - 01/01/2025 * * *Final Report* * * DATE OF EXAM: Jan 01 2025 8:16AM [facility] 0628 - [facility] DIAG W CHANEL LT / PROCEDURE REASON: Abnormal mammogram of both breasts * * * * Physician Interpretation * * * * RESULT: [place] [address] #[id number] - [facility] DIAG W CHANEL LT #[id number] - [facility] US BREAST LTD LT HISTORY: 79 year-old patient seen for diagnostic evaluation of the finding(s) described on prior mammogram in the left breast. Patient states no personal history of breast cancer. COMPARISON STUDIES: The present examination has been compared to prior imaging studies dated 06/06/2024 (mammogram), 06/11/2024 (ultrasound) and 06/11/2024 (mammogram). MAMMOGRAM TECHNIQUE: The study was acquired using full field digital technology and interpreted from soft copy. Digital Breast Tomosynthesis (DBT) images were obtained and used to assist in the interpretation of this examination. MAMMOGRAM FINDINGS: There are scattered areas of fibroglandular density. There is a stable focal asymmetry in the upper outer quadrant of the left breast. ULTRASOUND TECHNIQUE: Targeted ultrasound of the indicated area was performed. Ross scale images were saved. ULTRASOUND FINDINGS: Ultrasound demonstrates a stable parallel lesion with circumscribed margins measuring 0.5 cm in the left breast at 1 o'clock, middle depth, 6 cm from the nipple. Internal echotexture is hypoechoic. IMPRESSION IMPRESSION: Stable lesion in the left breast at 1 o'clock, middle depth, 6 cm from the nipple is probably benign. Follow-up with diagnostic mammogram and ultrasound is recommended in 6 months. BI-RADS Category 3: Probably Benign RISK: Based on the Tyrer-Cuzick (TC) risk assessment model, this patient has a 1.0% lifetime risk of developing breast cancer, meaning they are at average risk for developing breast cancer. However, this is only an estimate based on available history provided on the patient's questionnaire. We encourage all patients to talk with their providers about these results, further recommendations for managing breast health, and appropriate supplemental screening options if the patient has dense breast tissue. Interpreting Radiologist: Alfred Garcia M.D. Electronically signed on: 01/01/2025 Advertising Executive: BERNADINE Transcribe Date/Time: Jan 01 2025 8:04A Dictated by: ALFRED GARCIA MD This examination was interpreted and the report reviewed and electronically signed by: ALFRED GARCIA MD on Jan 01 2025 9:03AM EST [facility] NAFISA DIAG W CHANEL LTon 025 NAFISA DIAG W CHANEL LT Normal [facility] NAFISA US BREAST LTD LTon 01-01 NAFISA US BREAST LTD LT Normal [facility] No Panel InformationOrdered By: Cc Provider on 01-01-2025 [facility] No Panel Informationon 01-01 Radiology Study observation (narrative) [facility] US Breast - left limitedon 0 01-01-2025 IMPRESSION: Stable lesion in the left breast at 1 o'clock, middle depth, 6 cm from the nipple is probably benign. Follow-up with diagnostic mammogram and ultrasound is recommended in 6 months. BI-RADS Category 3: Probably Benign RISK: Based on the Tyrer-Cuzick (TC) risk assessment model, this patient has a 1.0% lifetime risk of developing breast cancer, meaning they are at average risk for developing breast cancer. However, this is only an estimate based on available history provided on the patient's questionnaire. We encourage all patients to talk with their providers about these results, further recommendations for managing breast health, and appropriate supplemental screening options if the patient has dense breast tissue. Interpreting Radiologist: Alfred Garcia M.D. Electronically signed on: 01/01/2025 Advertising Executive: BERNADINE Chrijosh Date/Time: Jan 01 2025 8:42A Dictated by : ALFRED GARCIA MD This examination was interpreted and the report reviewed and electronically signed by: ALFRED GARCIA MD on Jan 01 2025 9:03AM [facility] DIVISION OF RADIOLOGY * * *Final Report* * * DATE OF EXAM: Jan 01 2025 8:51AM [facility] 0593 - [facility] XIPWIRE BREAST LTD LT / PROCEDURE REASON: Abnormal mammogram of both breasts * * * * Physician Interpretation * * * * [place] [id number] #[id number] - [facility] KIP BUCHANAN #[id number] - [facility] XIPWIRE BREAST LTD LT HISTORY: 79 year-old patient seen for diagnostic evaluation of the finding(s) described on prior mammogram in the left breast. Patient states no personal history of breast cancer. COMPARISON STUDIES: The present examination has been compared to prior imaging studies dated 06/06/2024 (mammogram), 06/11/2024 (ultrasound) and 06/11/2024 (mammogram). MAMMOGRAM TECHNIQUE: The study was acquired using full field digital technology and interpreted from soft copy. Digital Breast Tomosynthesis (DBT) images were obtained and used to assist in the interpretation of this examination. MAMMOGRAM FINDINGS: There are scattered areas of fibroglandular density. There is a stable focal asymmetry in the upper outer quadrant of the left breast. ULTRASOUND TECHNIQUE: Targeted ultrasound of the indicated area was performed. Ross scale images were saved. ULTRASOUND FINDINGS: Ultrasound demonstrates a stable parallel lesion with circumscribed margins measuring 0.5 cm in the left breast at 1 o'clock, middle depth, 6 cm from the nipple. Internal echotexture is hypoechoic. DIVISION OF RADIOLOGY Provider, [facility] - 01/01/2025 * * *Final Report* * * DATE OF EXAM: Jan 01 2025 8:51AM [facility] 0593 - [facility] XIPWIRE BREAST LTD LT / PROCEDURE REASON: Abnormal mammogram of both breasts * * * * Physician Interpretation * * * * [place] [address] #[id number] - NAFISA KIP BUCHANAN LT #[id number] - [facility] BREAST LTD HISTORY: 79 year-old patient seen for diagnostic evaluation of the finding(s) described on prior mammogram in the left breast. Patient states no personal history of breast cancer. COMPARISON STUDIES: The present examination has been compared to prior imaging studies dated 06/06/2024 (mammogram), 06/11/2024 (ultrasound) and 06/11/2024 (mammogram). MAMMOGRAM TECHNIQUE: The study was acquired using full field digital technology and interpreted from soft copy. Digital Breast Tomosynthesis (DBT) images were obtained and used to assist in the interpretation of this examination. MAMMOGRAM FINDINGS: There are scattered areas of fibroglandular density. There is a stable focal asymmetry in the upper outer quadrant of the left breast. ULTRASOUND TECHNIQUE: Targeted ultrasound of the indicated area was performed. Ross scale images were saved. ULTRASOUND FINDINGS: Ultrasound demonstrates a stable parallel lesion with circumscribed margins measuring 0.5 cm in the left breast at 1 o'clock, middle depth, 6 cm from the nipple. Internal echotexture is hypoechoic. IMPRESSION IMPRESSION: Stable lesion in the left breast at 1 o'clock, middle depth, 6 cm from the nipple is probably benign. Follow-up with diagnostic mammogram and ultrasound is recommended in 6 months. BI-RADS Category 3: Probably Benign RISK: Based on the Tyrer-Cuzick (TC) risk assessment model, this patient has a 1.0% lifetime risk of developing breast cancer, meaning they are at average risk for developing breast cancer. However, this is only an estimate based on available history provided on the patient's questionnaire. We encourage all patients to talk with their providers about these results, further recommendations for managing breast health, and appropriate supplemental screening options if the patient has dense breast tissue. Interpreting Radiologist: Alfred Garcia M.D. Electronically signed on: 01/01/2025 Advertising Executive: BERNADINE Transcribe Date/Time: Jan 01 2025 8:42A Dictated by : ALFRED GARCIA MD This examination was interpreted and the report reviewed and electronically signed by: ALFRED GARCIA MD on Jan 01 2025 9:03AM [facility] CNPNon 12-05-2024 CNPN Normal [facility] Gastroenterology Visit Repor ton 11-08-2024 Gastroenterology Visit Report [facility] Gastroenterology [address] [place] [address] OFFICE VISIT Date of Service: 11/08/24 MR#: [id number] Acct: [id number] Name: GREGG FERRIS Rep #: [id number] : 1945 Provider: Zane Granado DO Age/Sex: 79/F Location: [facility] Status: Signed Intake Vital Signs 04/08/24 16:10 Height 5 ft 3 in Intake Visit Reasons: Medication FU Allergies No Known Allergies Allergy (Verified 04/05/24 12:56) Medications ???Medication ???Instructions ???Recorded ???Confirmed ???Type ascorbic acid (vitamin C) 1,000 mg 1 cap PO QHS vitamin 04/07/22 11/08/24 History capsule,extended release simvastatin 10 mg tablet 10 mg PO DAILY cholesterol 11/08/23 11/08/24 History sumatriptan succinate 100 mg tablet 100 mg PO Q2H PRN migraine headache 11/08/23 11/08/24 History famotidine 20 mg tablet 20 mg PO QHS reflux #60 tabs 01/31/24 11/08/24 Rx ondansetron 4 mg disintegrating 4 mg PO TID PRN nausea and 03/24/24 11/08/24 Rx tablet vomiting #21 tabs amitriptyline 25 mg tablet 25 mg PO QHS #30 tabs 11/08/24 11/08/24 Rx cephalexin 250 mg capsule 250 mg PO QHS 11/08/24 11/08/24 History d-mannose 500 mg capsule 2,000 mg PO DAILY 11/08/24 11/08/24 History prednisone 10 mg tablet 10 mg PO QDAY #30 tabs 11/08/24 11/08/24 Rx vitamins A,C,P-izbg-yzsjhq 2,148 2 tab PO BID 11/08/24 11/08/24 History mcg-113 mg-45 mg-17.4 mg tablet (PreserVision AREDS) Have you fallen in the past year?: No PFSH Medical History Post-menopausal Alcohol use History of steroid therapy Easy bruising PONV (postoperative nausea and vomiting) Non-smoker Cardiology follow-up encounter History of echocardiogram History of stress test Hypertension Hx of migraines UTI (urinary tract infection) DDD (degenerative disc disease), lumbar Spinal stenosis Chronic back pain Cystitis GERD (gastroesophageal reflux disease) Infection due to ESBL-producing Escherichia coli Essential (primary) hypertension Hyperlipidemia Surgical History History of back surgery S/P subdural hematoma evacuation History of appendectomy History of laparoscopic cholecystectomy History of hysterectomy Family History Mother Heart disease Father Heart disease Brother Heart disease CAD (coronary artery disease) Social History household members: spouse housing: house Smoking Status: Never smoker HPI HPI Details: GREGG FERRIS, is a 79 F who presents to the office today for follow up. Esophagram 17???tablet becomes trapped at GEJ ?Upper GI series 03.19.18???small sliding hiatal hernia; no reflux ?EGD with Zuniga 04.04.18???small hiatal hernia. ? Zuniga total [place]ter 10.1; Day 1 [place]ter 3.6; Day 2 [place] 15.4 ?CT abd/pel 2.20.19???colonic diverticulosis; s/p cholecystectomy; splenic cyst. ENT established: ?Laryngoscopy 01.01.22???severe edema of interarytenoid space *BGI established 03.04.22 referral from ENT to evaluate GERD with frequent throat clearing and coughing. Heartburn sensation is minimal and uses PRN Gaviscon which is helpful; omeprazole 40mg QD ineffective. 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 Zuniga total DeMeester 13.7; Day 1 DeMeester 11.8 upright > supine; Day 2 DeMeester 15.5 upright > supine OV 6..???Start sucralfate and PPI taper ?Esophagram 05.11.22???small sliding hiatal hernia without GERD 12.19.22 Dr. 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 She still struggles with throat clearing during the day but is not as bad as it used to be. Does not have any heartburn, reflux, nausea or abdominal pain. Would like to have RFA repeated. OV 1.3.25 pt report increased clearing of her throat and was told at her last appt that if the prednisone was not helpful for this symptom then she may need ablation. Pt denies ot (more content not included)... Normal [facility] 10-23-2024 CNPN Normal [facility] 10-09-2024 CNPN Normal [facility] PT panel Coag (PPP)on 2023 INR Coag (PPP) [Relative time] 1.2 {INR} Normal 0.9-1.3 [facility] Comment on above: Order Comment: Speci men Type: BLOOD SPECIMENOrdering Facility: [facility] Address: [address] [place] [address] Result Comment: Fabiana min K Antagonist (VKA) Therapeutic Range: INR 2 to 3 (Target INR of 2.5)Note: For patients treated with VKA drugs, such as warfarin, the [employer] [employer] 2012 Guideline recommends a therapeutic INR range of 2 to 3 (target INR of 2.5). This recommendation includes high-risk patients with antiphospholipid syndrome with previous arterial or venous thromboembolism, current-generation mechanical or bioprosthetic aortic heart valve replacement.Note: Patients with mechanical aortic valve replacement and additional risk factors for thromboembolic events (atrial fibrillation, previous thromboembolism, LV dysfunction, hypercoagulable conditions) or an older generation mechanical AVR (i.e., ball in-Cage) or any mechanical MVR should have a INR therapeutic range of 2.5 to 3.5 (target INR of 3).Raza GH, et al. Chest 2012, 141:7S-47SNishimura RA, et al. JAC 2017, 70: 252-289 Performed By: #### 3 4528-0 ####[facility] [id number] [address] [place] PT Coag (PPP) [Time] 12.1 s Normal <13.1 [facility] Comment on above: Order Comment: Specishmael aleman Type: BLOOD SPECIMENOrdering Facility: [facility] Address: [address] [place] [address] Performed By: #### 3 4528-0 ####[facility] [id number] [place] [address] [place] CNPNon 09-30-2024 CNPN Normal [facility] PT panel Coag (PPP)on 2023 INR Coag (PPP) [Relative time] 5.2 {INR} High 0.9-1.3 [facility] Comment on above: Order Comment: Thu aleman Type: BLOOD SPECIMENOrdering Facility: [facility] Address: [address] [place] [address] Result Comment: Fabiana min K Antagonist (VKA) Therapeutic Range: INR 2 to 3 (Target INR of 2.5)Note: For patients treated with VKA drugs, such as warfarin, the [place] [employer] 2012 Guideline recommends a therapeutic INR range of 2 to 3 (target INR of 2.5). This recommendation includes high-risk patients with antiphospholipid syndrome with previous arterial or venous thromboembolism, current-generation mechanical or bioprosthetic aortic heart valve replacement.Note: Patients with mechanical aortic valve replacement and additional risk factors for thromboembolic events (atrial fibrillation, previous thromboembolism, LV dysfunction, hypercoagulable conditions) or an older generation mechanical AVR (i.e., ball in-Cage) or any mechanical MVR should have a INR therapeutic range of 2.5 to 3.5 (target INR of 3).Raza COWART, et al. Chest 2012, 141:7S-47SNishimbeata RA, et al. [facility] 2017, 70: 252-289 Performed By: #### 3 4528-0 ####[facility] [id number] [place] [address] [place] PT Coag (PPP) [Time] 47.1 s High <13.1 [facility] Comment on above: Order Comment: Speci men Type: BLOOD SPECIMENOrdering Facility: [facility] Address: [facility] [place] [id number] Performed By: #### 3 4528-0 ####[facility] [id number] [place] [id number] [place] DBT Breast - bilateral diagn ostic for implanton 06-11-2024 * * *Final Report* * * DATE OF EXAM: Jun 11 2024 8:52AM [facility] 0627 - NAFISA DIAG W CHANEL JENNY / PROCEDURE REASON: Abnormal mammogram of both breasts * * * * Physician Interpretation * * * * RESULT: #[id number] - NAFISA DIAG W CHANEL JENNY #[id number] - NAFISA XIPWIRE BREAST LTD LT BILATERAL DIGITAL DIAGNOSTIC MAMMOGRAM TOMOSYNTHESIS WITH CAD: 06/11/2024 HISTORY: / Call back/abnormal mamm: Right / Call back/abnormal mamm: Left /priors available for comparison Abnormal Mammogram Of Both Breasts Abnormal Mammogram Of Both Breasts. RESULT: TECHNIQUE: The study was acquired using full field digital technology and interpreted from soft copy. Digital Breast Tomosynthesis (DBT) images were obtained and used to assist in the interpretation of this examination. Current study was also evaluated with a Computer Aided Detection (CAD). Comparison is made to exam dated: 06/06/2024 mammogram - [facility]. The breasts are almost entirely fatty. There is a benign 0.8 cm cyst with a circumscribed margin in the right breast at 5 o'clock anterior depth. There is a 5 mm asymmetry in the left breast at 1 o'clock middle depth. No other significant masses or calcifications are seen in either breast. [facility]Y [facility]24 * * *Final Report* * * DATE OF EXAM: Jun 11 2024 8:52AM [facility] 0627 - NAFISA DIAG W CHANEL JENNY / PROCEDURE REASON: Abnormal mammogram of both breasts * * * * Physician Interpretation * * * * RESULT: #[id number] - NAFISA DIAG W CHANEL JENNY #[id number] - NAFISA XIPWIRE BREAST LTD LT BILATERAL DIGITAL DIAGNOSTIC MAMMOGRAM TOMOSYNTHESIS WITH CAD: 06/11/2024 HISTORY: / Call back/abnormal mamm: Right / Call back/abnormal mamm: Left /priors available for comparison Abnormal Mammogram Of Both Breasts Abnormal Mammogram Of Both Breasts. RESULT: TECHNIQUE: The study was acquired using full field digital technology and interpreted from soft copy. Digital Breast Tomosynthesis (DBT) images were obtained and used to assist in the interpretation of this examination. Current study was also evaluated with a Computer Aided Detection (CAD). Comparison is made to exam dated: 06/06/2024 mammogram - [facility]. The breasts are almost entirely fatty. There is a benign 0.8 cm cyst with a circumscribed margin in the right breast at 5 o'clock anterior depth. There is a 5 mm asymmetry in the left breast at 1 o'clock middle depth. No other significant masses or calcifications are seen in either breast. IMPRESSION IMPRESSION: PROBABLY BENIGN The 5 mm asymmetry in the left breast at 1 o'clock middle depth most likely is a cyst and is probably benign. A follow-up mammogram in 6 months is recommended. Mammographically this may have been present in 2010. LIMITED ULTRASOUND OF LEFT BREAST: 06/11/2024 RESULT: Comparison is made to exam dated: 06/06/2024 mammogram - [facility]. Color flow and real-time ultrasound of the left breast upper outer quadrant were performed. Ross scale images of the real-time examination were reviewed. There is a 0.5 cm x 0.3 cm x 0.2 cm lobulated lesion with a circumscribed margin in the left breast at 1 o'clock middle depth 6 cm from the nipple. This lobulated lesion is hypoechoic. This correlates with mammography findings. IMPRESSION: PROBABLY BENIGN The 0.5 cm x 0.3 cm x 0.2 cm lobulated lesion in the left breast most likely is a complex cyst and is probably benign. Follow-up mammogram and ultrasound in 6 months is recommended. A follow-up mammogram and an ultrasound in 6 months is recommended to demonstrate stability. Moises shaw/sherrie:06/11/2024 09:47:15 Multiple national specialty organizations have released breast cancer screening guidelines for women at average risk for developing breast cancer - guidelines that are based on both evidence and opinion, yet differ on when to start and how often to screen for breast cancer. With representation from Breast Imaging, Internal Medicine, Women's Health, Family Medicine, and Medical/Surgical Oncology, the [facility] has carefully reviewed the data and reached the following consensus: 1) All women should engage in shared decision-making with their providers to decide when to start and how often to screen; 2) All women should have the opportunity to start screening mammography at age 40; 3) For women ages 45-55, we recommend annual screening mammograms; 4) For women ages 55 and over, we support both the transition from an annual to a biennial interval if this aligns more with patient's values and preferences, or continuation with annual screening; 5) All women should discuss with their providers when to stop screening mammograms. [employer](s): Katelin Funez, [facility]; RT Maura(R)(M), [facility] OVERALL STUDY BIRADS: Category 3: Probably Benign Advertising Executive: Sherrie Transcribe Date/Time: Jun 11 2024 8:16A Dictated by: MOISES RYAN MD This examination was interpreted and the report reviewed and electronically signed by: MOISES RYAN MD on Jun 11 2024 9:47AM EST [facility] No Panel Informationon 06-11 IMPRESSION: PROBABLY BENIGN The 5 mm asymmetry in the left breast at 1 o'clock middle depth most likely is a cyst and is probably benign. A follow-up mammogram in 6 months is recommended. Mammographically this may have been present in 2010. LIMITED ULTRASOUND OF LEFT BREAST: 06/11/2024 RESULT: Comparison is made to exam dated: 06/06/2024 mammogram - [facility]. Color flow and real-time ultrasound of the left breast upper outer quadrant were performed. Ross scale images of the real-time examination were reviewed. There is a 0.5 cm x 0.3 cm x 0.2 cm lobulated lesion with a circumscribed margin in the left breast at 1 o'clock middle depth 6 cm from the nipple. This lobulated lesion is hypoechoic. This correlates with mammography findings. IMPRESSION: PROBABLY BENIGN The 0.5 cm x 0.3 cm x 0.2 cm lobulated lesion in the left breast most likely is a complex cyst and is probably benign. Follow-up mammogram and ultrasound in 6 months is recommended. A follow-up mammogram and an ultrasound in 6 months is recommended to demonstrate stability. Moises shaw/sherrie:06/11/2024 09:47:15 Multiple national specialty organizations have released breast cancer screening guidelines for women at average risk for developing breast cancer - guidelines that are based on both evidence and opinion, yet differ on when to start and how often to screen for breast cancer. With representation from Breast Imaging, Internal Medicine, Women's Health, Family Medicine, and Medical/Surgical Oncology, the [facility] has carefully reviewed the data and reached the following consensus: 1) All women should engage in shared decision-making with their providers to decide when to start and how often to screen; 2) All women should have the opportunity to start screening mammography at age 40; 3) For women ages 45-55, we recommend annual screening mammograms; 4) For women ages 55 and over, we support both the transition from an annual to a biennial interval if this aligns more with patient's values and preferences, or continuation with annual screening; 5) All women should discuss with their providers when to stop screening mammograms. [employer](s): Katelin Funez, [facility]; RT Maura(R)(M), [facility] OVERALL STUDY BIRADS: Category 3: Probably Benign Advertising Executive: Sherrie Transcribe Date/Time: Jun 11 2024 8:16A Dictated by: MOISES RYAN MD This examination was interpreted and the report reviewed and electronically signed by: MOISES RYAN MD on Jun 11 2024 9:47AM [facility] DIVISION OF RADIOLOGY Radiology [facility]ative[facility] No Panel InformationOrdered By: [facility] Provider on 06-11-2024 [facility] US Breast - left limitedon 0 06-11-2024 * * *Final Report* * * DATE OF EXAM: Jun 11 2024 9:12AM [facility] 0593 - [facility] US BREAST LTD LT / PROCEDURE REASON: Abnormal mammogram of both breasts * * * * Physician Interpretation * * * * #[id number] - NAFISA DIAG W CHANEL JENNY #[id number] - [facility] US BREAST LTD LT BILATERAL DIGITAL DIAGNOSTIC MAMMOGRAM TOMOSYNTHESIS WITH CAD: 06/11/2024 HISTORY: / Call back/abnormal mamm: Right / Call back/abnormal mamm: Left /priors available for comparison Abnormal Mammogram Of Both Breasts Abnormal Mammogram Of Both Breasts. RESULT: TECHNIQUE: The study was acquired using full field digital technology and interpreted from soft copy. Digital Breast Tomosynthesis (DBT) images were obtained and used to assist in the interpretation of this examination. Current study was also evaluated with a Computer Aided Detection (CAD). Comparison is made to exam dated: 06/06/2024 [facility]. The breasts are almost entirely fatty. There is a benign 0.8 cm cyst with a circumscribed margin in the right breast at 5 o'clock anterior depth. There is a 5 mm asymmetry in the left breast at 1 o'clock middle depth. No other significant masses or calcifications are seen in either breast. DIVISION OF RADIOLOGY Provider, [facility] - 06/11/2024 * * *Final Report* * * DATE OF EXAM: Jun 11 2024 9:12AM [facility] 0593 - [employer] BREAST [employer] LT / PROCEDURE REASON: Abnormal mammogram of both breasts * * * * Physician Interpretation * * * * #[id number] - [facility] DIAG W CHANEL JENNY #[id number] - [facility] XIPWIRE BREAST LTD LT BILATERAL DIGITAL DIAGNOSTIC MAMMOGRAM TOMOSYNTHESIS WITH CAD: 06/11/2024 HISTORY: / Call back/abnormal mamm: Right / Call back/abnormal mamm: Left /priors available for comparison Abnormal Mammogram Of Both Breasts Abnormal Mammogram Of Both Breasts. RESULT: TECHNIQUE: The study was acquired using full field digital technology and interpreted from soft copy. Digital Breast Tomosynthesis (DBT) images were obtained and used to assist in the interpretation of this examination. Current study was also evaluated with a Computer Aided Detection (CAD). Comparison is made to exam dated: 06/06/2024 [facility]. The breasts are almost entirely fatty. There is a benign 0.8 cm cyst with a circumscribed margin in the right breast at 5 o'clock anterior depth. There is a 5 mm asymmetry in the left breast at 1 o'clock middle depth. No other significant masses or calcifications are seen in either breast. IMPRESSION IMPRESSION: PROBABLY BENIGN The 5 mm asymmetry in the left breast at 1 o'clock middle depth most likely is a cyst and is probably benign. A follow-up mammogram in 6 months is recommended. Mammographically this may have been present in 2010. LIMITED ULTRASOUND OF LEFT BREAST: 06/11/2024 RESULT: Comparison is made to exam dated: 06/06/2024 mammogram - [facility]. Color flow and real-time ultrasound of the left breast upper outer quadrant were performed. Ross scale images of the real-time examination were reviewed. There is a 0.5 cm x 0.3 cm x 0.2 cm lobulated lesion with a circumscribed margin in the left breast at 1 o'clock middle depth 6 cm from the nipple. This lobulated lesion is hypoechoic. This correlates with mammography findings. IMPRESSION: PROBABLY BENIGN The 0.5 cm x 0.3 cm x 0.2 cm lobulated lesion in the left breast most likely is a complex cyst and is probably benign. Follow-up mammogram and ultrasound in 6 months is recommended. A follow-up mammogram and an ultrasound in 6 months is recommended to demonstrate stability. Moises shaw/sherrie:06/11/2024 09:47:15 Multiple national specialty organizations have released breast cancer screening guidelines for women at average risk for developing breast cancer - guidelines that are based on both evidence and opinion, yet differ on when to start and how often to screen for breast cancer. With representation from Breast Imaging, Internal Medicine, Women's Health, Family Medicine, and Medical/Surgical Oncology, the [facility] has carefully reviewed the data and reached the following consensus: 1) All women should engage in shared decision-making with their providers to decide when to start and how often to screen; 2) All women should have the opportunity to start screening mammography at age 40; 3) For women ages 45-55, we recommend annual screening mammograms; 4) For women ages 55 and over, we support both the transition from an annual to a biennial interval if this aligns more with patient's values and preferences, or continuation with annual screening; 5) All women should discuss with their providers when to stop screening mammograms. [employer](s): Katelin Funez, [facility]; RT Maura(R)(M), [facility] OVERALL STUDY BIRADS: Category 3: Probably Benign Advertising Executive: Sherrie Transcribe Date/Time: Jun 11 2024 8:16A Dictated by : MOISES RYAN MD This examination was interpreted and the report reviewed and electronically signed by: MOISES RYAN MD on Jun 11 2024 9:47AM EST [facility] US Breast - right limitedon 06-11-2024 IMPRESSION: BENIGN There is no sonographic evidence of malignancy. The 0.7 cm x 0.6 cm x 0.2 cm lobulated lesion in the right breast is consistent with a complex cyst and is benign. Moises Ryan M.D. tab/sherrie:06/11/2024 09:50:29 [employer](s): Katelin Funez [facility] Ultrasound BI-RADS: Category 2: Benign Multiple national specialty organizations have released breast cancer screening guidelines for women at average risk for developing breast cancer - guidelines that are based on both evidence and opinion, yet differ on when to start and how often to screen for breast cancer. With representation from Breast Imaging, Internal Medicine, Women's Health, Family Medicine, and Medical/Surgical Oncology, the [facility] has carefully reviewed the data and reached the following consensus: 1) All women should engage in shared decision-making with their providers to decide when to start and how often to screen; 2) All women should have the opportunity to start screening mammography at age 40; 3) For women ages 45-55, we recommend annual screening mammograms; 4) For women ages 55 and over, we support both the transition from an annual to a biennial interval if this aligns more with patient's values and preferences, or continuation with annual screening; 5) All women should discuss with their providers when to stop screening mammograms. Advertising Executive: Sherrie Transcribe Date/Time: Jun 11 2024 8:57A Dictated by : MOISES RYAN MD This examination was interpreted and the report reviewed and electronically signed by: MOISES RYAN MD on Jun 11 2024 9:50AM EST DIVISION OF RADIOLOGY * * *Final Report* * * DATE OF EXAM: Jun 11 2024 9:12AM [facility] 0594 - [facility] US BREAST LTD RT / PROCEDURE REASON: Abnormal mammogram of both breasts * * * * Physician Interpretation * * * * #[id number] - [facility] US BREAST LTD RT LIMITED ULTRASOUND OF RIGHT BREAST: 06/11/2024 HISTORY: Abnormal Mammogram Of Both Breasts. RESULT: Comparison is made to exams dated: 06/11/2024 mammogram, 06/06/2024 mammogram - [facility], and 12/18/2007 [facility]. Color flow and real-time ultrasound of the right breast lower inner quadrant were performed. Ross scale images of the real-time examination were reviewed. There is a benign 0.7 cm x 0.6 cm x 0.2 cm lobulated lesion with a circumscribed margin in the right breast at 5 o'clock anterior depth 3 cm from the nipple. This lobulated lesion is anechoic. This correlates with mammography findings. Color flow imaging demonstrates that there is no vascularity present. DIVISION OF RADIOLOGY Provider, [facility] - 06/11/2024 * * *Final Report* * * DATE OF EXAM: Jun 11 2024 9:12AM [facility] 0594 - [facility] [employer] RT / PROCEDURE REASON: Abnormal mammogram of both breasts * * * * Physician Interpretation * * * * #[id number] - [facility] XIPWIRE BREAST [facility] RT LIMITED ULTRASOUND OF RIGHT BREAST: 06/11/2024 HISTORY: Abnormal Mammogram Of Both Breasts. RESULT: Comparison is made to exams dated: 06/11/2024 mammogram, 06/06/2024 mammogram - [facility], and 12/18/2007 [facility]. Color flow and real-time ultrasound of the right breast lower inner quadrant were performed. Ross scale images of the real-time examination were reviewed. There is a benign 0.7 cm x 0.6 cm x 0.2 cm lobulated lesion with a circumscribed margin in the right breast at 5 o'clock anterior depth 3 cm from the nipple. This lobulated lesion is anechoic. This correlates with mammography findings. Color flow imaging demonstrates that there is no vascularity present. IMPRESSION IMPRESSION: BENIGN There is no sonographic evidence of malignancy. The 0.7 cm x 0.6 cm x 0.2 cm lobulated lesion in the right breast is consistent with a complex cyst and is benign. Moises Ryan M.D. tab/penrad:06/11/2024 09:50:29 [employer](s): Katelin Funez [facility] Ultrasound BI-RADS: Category 2: Benign Multiple national specialty organizations have released breast cancer screening guidelines for women at average risk for developing breast cancer - guidelines that are based on both evidence and opinion, yet differ on when to start and how often to screen for breast cancer. With representation from Breast Imaging, Internal Medicine, Women's Health, Family Medicine, and Medical/Surgical Oncology, the [facility] has carefully reviewed the data and reached the following consensus: 1) All women should engage in shared decision-making with their providers to decide when to start and how often to screen; 2) All women should have the opportunity to start screening mammography at age 40; 3) For women ages 45-55, we recommend annual screening mammograms; 4) For women ages 55 and over, we support both the transition from an annual to a biennial interval if this aligns more with patient's values and preferences, or continuation with annual screening; 5) All women should discuss with their providers when to stop screening mammograms. Advertising Executive: Sherrie Transcribe Date/Time: Jun 11 2024 8:57A Dictated by : MOISES RYAN MD This examination was interpreted and the report reviewed and electronically signed by: MOISES RYAN MD on Jun 11 2024 9:50AM EST [facility] CBC W Auto Differential pane l (Bld)on 05-21-2024 Basophils (Bld) [#/Vol] [facility] Basophils/100 WBC (Bld) 0.2 % [facility] Differential cell count method Nom (Bld) Auto [facility] Eosinophils (Bld) [#/Vol] 0.13 10*3/uL [facility] Eosinophils/100 WBC (Bld) 1.2 % [facility] Erythrocyte distribution width (RBC) [Ratio] 14.2 % 11.5 - 15.0 % [facility] Hematocrit (Bld) [Volume fraction] 45.0 % 36.0 - 46.0 % [facility] Hemoglobin (Bld) [Mass/Vol] 14.2 g/dL 11.5 - 15.5 g/dL [facility] Immature granulocytes (Bld) [#/Vol] 0.03 10*3/uL [facility] Immature granulocytes/100 WBC (Bld) 0.3 % [facility] Lymphocytes (Bld) [#/Vol] 2.84 10*3/uL [facility] Lymphocytes/100 WBC (Bld) 27.0 % [facility] MCH (RBC) [Entitic mass] 30.9 pg 26.0 - 34.0 pg [facility] MCHC (RBC) [Mass/Vol] 31.6 g/dL 30.5 - 36.0 g/dL [facility] MCV (RBC) [Entitic vol] 98.0 fL 80.0 - 100.0 fL [facility] Monocytes (Bld) [#/Vol] 0.60 10*3/uL [facility] Monocytes/100 WBC (Bld) 5.7 % C [facility] Neutrophils (Bld) [#/Vol] 6.88 10*3/uL [facility] Neutrophils/100 WBC (Bld) 65.6 % [facility] Nucleated RBC (Bld) [#/Vol] [facility] Nucleated RBC/100 WBC (Bld) [Ratio] 0.0 % /100 WBC [facility] Platelet mean volume (Bld) [Entitic vol] 10.8 fL 9.0 - 12.7 fL [facility] Platelets (Bld) [#/Vol] 309 10*3/uL [facility] RBC (Bld) [#/Vol] 4.59 10*6/uL 3.90 - 5.2 0 m/uL [facility] WBC (Bld) [#/Vol] 10.50 10*3/uL [facility] NITRIC OXIDE, EXHALEDon -2 Lana Ahuja RPF T 04/30/2024 3:03 PM RESPIRATORY THERAPY ORAL EXHALED NITRIC OXIDE SERVICE [...] 04/30/2024 <5.0 NAME: MICHELE Perry PATIENT NAME: Gregg Ferris DATE: April 30, 2024 TIME: 3:03 PM [facility] UA DIP, URINE (POC)on 2023 BILIRUBIN UA (POCT) Moderate Abnormal Negative [facility] CLARITY UA (POCT) Slightly Cloudy Cl [facility] COLOR UA (POCT) Brown [facility] GLUCOSE UA (POCT) Negative Negative mg/dL [facility] Hemoglobin Ql (U) Large Abnormal Negative [facility] Interpretation and review of laboratory results Abnormal [facility] KETONE UA (POCT) 15 mg/dL Abnormal Negative [facility] LEUKOCYTES UA (POCT) Large Abnormal Negative [facility] NITRITE UA (POCT) Positive Abnormal Negative [facility] PH UA (POCT) 5.5 4.5 - 8.0 [facility] Protein Ql (U) >=300 Abnormal Negative mg/dL [facility] SPECIFIC GRAVITY UA (POCT) >=1.030 1.005 - 1.030 [facility] UROBILINOGEN UA (POCT) 1.0 Maegan l E.U./dL [facility] Location:[address], [place], [place], [id number] [place] [address] POINT OF CARE [facility] UA DIP, URINE (POC)on 2023 BILIRUBIN UA (POCT) Negative Negative [facility] CLARITY UA (POCT) Clear [facility] COLOR UA (POCT) Yellow [facility] GLUCOSE UA (POCT) Negative Negative mg/dL [facility] Hemoglobin Ql (U) Negative Negative [facility] KETONE UA (POCT) Trace Negative mg/dL [facility] LEUKOCYTES UA (POCT) Negative Negative [facility] NITRITE UA (POCT) Negative Negative [facility] PH UA (POCT) 5.5 4.5 - 8.0 [facility] Protein Ql (U) Negative Negative mg/dL [facility] SPECIFIC GRAVITY UA (POCT) 1.025 1.005 - 1.030 [facility] UROBILINOGEN UA (POCT) 0.2 Maegan l E.U./dL [facility] Location:[address], [place], [place], [id number] [place] [address] POINT OF CARE [facility] XR Chest PA and Lateralon IMPRESSION: No acute lung consolidation. Faint subcentimeter nodule at right lower lobe. Refer to prior CT thorax dated 01/24/2023. Advertising Executive: PSCB Transcribe Date/Time: Dec 21 2023 8:13A Dictated by : Dallas SANTANA MD This examination was interpreted and the report reviewed and electronically signed by: Dallas SANTANA MD on Dec 21 2023 8:17AM [facility] DIVISION OF RADIOLOGY * * *Final Report* * * DATE OF EXAM: Dec 21 2023 8:10AM WOX [id number] - XR CHEST 2V FRONTAL/LAT / PROCEDURE REASON: Acute cough * * * * Physician Interpretation * * * * EXAMINATION: CHEST RADIOGRAPH (2 VIEW FRONTAL & LATERAL) CLINICAL HISTORY: Acute cough MQ: XC2_6 EXAM DATE/TIME: 12/21/2023 8:10 AM COMPARISON: 01/28/2021 RESULT: Lines, tubes, and devices: None. Lungs and pleura: No consolidation. Faint subcentimeter nodule at right lower lobe. No pleural effusion. Incidental left Bochdalek hernia. Cardiomediastinal silhouette: Tortuous descending thoracic aorta Bones and soft tissues: Thoracolumbar kyphosis, partially imaged instrumented posterior lumbar fusion. DIVISION OF RADIOLOGY Provider, [facility] - 12/21/2023 * * *Final Report* * * DATE OF EXAM: Dec 21 2023 8:10AM WOX [id number] - XR CHEST 2V FRONTAL/LAT / PROCEDURE REASON: Acute cough * * * * Physician Interpretation * * * * EXAMINATION: CHEST RADIOGRAPH (2 VIEW FRONTAL & LATERAL) CLINICAL HISTORY: Acute cough MQ: XC2_6 EXAM DATE/TIME: 12/21/2023 8:10 AM COMPARISON: 01/28/2021 RESULT: Lines, tubes, and devices: None. Lungs and pleura: No consolidation. Faint subcentimeter nodule at right lower lobe. No pleural effusion. Incidental left Bochdalek hernia. Cardiomediastinal silhouette: Tortuous descending thoracic aorta Bones and soft tissues: Thoracolumbar kyphosis, partially imaged instrumented posterior lumbar fusion. IMPRESSION IMPRESSION: No acute lung consolidation. Faint subcentimeter nodule at right lower lobe. Refer to prior CT thorax dated 01/24/2023. Advertising Executive: YURI Transcribe Date/Time: Dec 21 2023 8:13A Dictated by : Dallas SANTANA MD This examination was interpreted and the report reviewed and electronically signed by: Dallas SANTANA MD on Dec 21 2023 8:17AM EST [facility] Radiology Study observation (narrative) [facility] XR Chest PA and LateralOrder ed By: Ccf Provider on 12-21-2023 [facility] Basophil percentageOrdered B y: ED PROVIDER on 11-08-2023 Basophil percentage 10-25 SEEN /hpf 0-5 [facility] Bilirubin Test strip Ql (U)O rdered By: ED PROVIDER on 11-08-2023 Bilirubin Ql (U) 3 mg/dL Negative [facility] Comment on above: COLOR OF URINE MAY A FFECT DIPSTICK RESULTS. Culture, urineOrdered By: Do jessica Brewer on 11-08-2023 Bacteria identified Cx Nom (U) Enterococcus faecalis [facility] Culture, urineOrdered By: Eva Etienne on 11-08-2023 Bacteria identified Cx Nom (U) Enterococcus faecalis [facility] Ketones Test strip Ql (U)Ord ered By: ED PROVIDER on 11-08-2023 Ketones Ql (U) Negative Negative [facility] Mucus LM Ql (Urine sed)Order ed By: ED PROVIDER on 11-08-2023 Mucus Ql (Urine sed) 0 SEEN /hpf [facility] Nitrite Test strip Ql (U)Ord ered By: ED PROVIDER on 11-08-2023 Nitrite Ql (U) Positive Negative [facility] Protein Test strip Ql (U)Ord ered By: ED PROVIDER on 11-08-2023 Protein Ql (U) 30 mg/dl Negative [facility] Squamous epithelial cells de tection in urine sediment by light microscopyOrdered By: ED PROVIDER on 11-08-2023 Epithelial cells.squamous LM Ql (Urine sed) 0-5 SEEN /hpf 5-10 [facility] Urine blood detectionOrdered By: ED PROVIDER on 11-08-2023 RBC Ql (U) 250 /ul Negative [facility] RBC Ql (U) 10-25 SEEN /hpf 0-5 [facility] Urine clarityOrdered By: ED PROVIDER on 11-08-2023 Clarity (U) Sl. Cloudy Clear [facility] Urine color determinationOrd ered By: ED PROVIDER on 11-08-2023 Color (U) SEE COMMENT BELOW Yellow [facility] Comment on above: Visual Urine Color: ORANGE Urine glucose detectionOrder ed By: ED PROVIDER on 11-08-2023 Glucose Ql (U) Normal mg/dl Normal [facility] Urine leukocyte esterase det ection by dipstickOrdered By: ED PROVIDER on 11-08-2023 Leukocyte esterase Test strip Ql (U) 500 /ul Negative [facility] Urine pHOrdered By: ED PROVI JACK on 11-08-2023 pH (U) 5.0 [pH] 5.0 - 8.0 [facility] Urine sediment bacteria coun t by microscopy (number/high power field)Ordered By: ED PROVIDER on 11-08-2023 Bacteria LM.HPF (Urine sed) [#/Area] 1 /[HPF] None Seen [facility] Urine specific gravity measu rementOrdered By: ED PROVIDER on 11-08-2023 Specific gravity (U) [Rel density] 1.010 1.002-1.030 [facility] Urobilinogen Auto test strip Ql (U)Ordered By: ED PROVIDER on 11-08-2023 Urobilinogen Ql (U) 8 mg/dl Normal [facility] COVID NAAT, UPPER RESPIRATOR Y, ROUTINEon 08-09-2023 SARS-CoV-2 (COVID-19) RNA SANDY+probe Ql (Resp) Detected Abnormal See comment [facility] ROUTINE FLU A/B + RSVon 10- FLUAV RNA SANDY+probe Ql (Unsp spec) Not detected Not Detected [facility] FLUBV RNA SANDY+probe Ql (Unsp spec) Not detected Not Detected [facility] RSV A RNA SANDY+probe Ql (Unsp spec) Not detected Not Detected [facility] UA DIP, URINE (POC)on 2022 BILIRUBIN UA (POCT) Negative Negative [facility] CLARITY UA (POCT) Clear [facility] COLOR UA (POCT) Dark yellow [facility] GLUCOSE UA (POCT) Negative Negative mg/dL [facility] HEMOGLOBIN/BLOOD UA (POCT) Trace-intact Abnormal Negative [facility] KETONE UA (POCT) Trace Negative mg/dL [facility] LEUKOCYTES UA (POCT) Trace Abnormal Negative [facility] NITRITE UA (POCT) Negative Negative [facility] PH UA (POCT) 5.5 4.5 - 8.0 [facility] Protein Ql (U) Negative Negative mg/dL [facility] SPECIFIC GRAVITY UA (POCT) 1.025 1.005 - 1.030 [facility] UROBILINOGEN UA (POCT) 0.2 E.U./dL Maegan l E.U./dL [facility] Absolute lymphocyte countOrd ered By: Leonardo Le on 05-16-2023 Lymphocytes Auto (Unsp spec) [#/Vol] 1.97 10*3/uL 0.83-4.51 [facility] Basophil percentageOrdered B y: Leonardo Le on 05-16-2023 Basophil percentage 0-5 SEEN /hpf 0-5 [facility] Basophils/100 WBC (Bld) 0.4 % 0-1 [facility] Chloride [Moles/Vol] 112 mmol/L 98-107 [facility] Eosinophils/100 WBC (Bld) 1.0 % 0-5 [facility] Glucose [Mass/Vol] 93 mg/dL 74-106 [facility] Neutrophils (Bld) [#/Vol] 5.3 10*3/uL 2.0-7.7 [facility] Neutrophils/100 WBC (Bld) 67.1 % 47-70 [facility] Potassium [Moles/Vol] 4.0 mmol/L 3.5-5.1 [facility] Sodium [Moles/Vol] 141 mmol/L 136-145 [facility] WBC (Bld) [#/Vol] 7.9 10*3/uL 4.4-11.0 [facility] Bilirubin Test strip Ql (U)O rdered By: Leonardo Haq on 05-16-2023 Bilirubin Ql (U) Negative Negative [facility] Blood erythrocytes count (nu mber/volume)Ordered By: Leonardo Haq on 05-16-2023 RBC (Bld) [#/Vol] 5.05 10*6/uL 4.2-5.4 [facility] Blood hemoglobin measurement (mass/volume)Ordered By: Leonardo Haq on 05-16-2023 Hemoglobin (Bld) [Mass/Vol] 15.8 g/dL 12.0-15.0 [facility] Blood lymphocytes/100 leukoc ytesOrdered By: Leonardo Haq on 05-16-2023 Lymphocytes/100 WBC (Bld) 25.1 % 19-41 [facility] Blood monocytes/100 leukocyt esOrdered By: Leonardo Haq on 05-16-2023 Monocytes/100 WBC (Bld) 6.1 % 0-10 [facility] Blood platelet mean volumeOr dered By: Leonardo Haq on 05-16-2023 Platelet mean volume (Bld) [Entitic vol] 10.5 fL 6.2-12.0 [facility] Determination of erythrocyte mean corpuscular volume (MCV)Ordered By: Leonardo Haq on 05-16-2023 MCV (RBC) [Entitic vol] 95.4 fL 81-99 [facility] Hematocrit Auto (Bld) [Volum e fraction]Ordered By: Leonardo Haq on 05-16-2023 Hematocrit (Bld) [Volume fraction] 48.2 % 37-47 [facility] Ketones Test strip Ql (U)Ord ered By: Leonardo Haq on 05-16-2023 Ketones Ql (U) Negative Negative [facility] Laboratory - Chemistry and C hemistry - challengeOrdered By: Leonardo Haq on 05-16-2023 CO2 [Moles/Vol] 25.0 mmol/L 21.0-32.0 [facility] Urea nitrogen/Creatinine [Mass ratio] 19.2 mg/mg 10-20 [facility] Laboratory - Hematology and Cell countsOrdered By: Leoanrdo Haq on 05-16-2023 Erythrocyte distribution width (RBC) [Entitic vol] 43.3 fL 35.1-43.9 [facility] Erythrocyte distribution width (RBC) [Ratio] 12.3 % 11.6-14.6 [facility] Immature granulocytes/100 WBC (Bld) 0.300 % 0.0-0.9 [facility] Comment on above: IG% - Immature Granu locytes (promyelocytes, myelocytes and metamyelocytes) > 1% indicates that a LEFT SHIFT is Present. MCH (RBC) [Entitic mass] 31.3 pg 27.0-32.0 [facility] Nucleated RBC/100 WBC (Bld) [Ratio] 0 % 0-5 [facility] MCHC Auto (RBC) [Mass/Vol]Or dered By: Leonardo Haq on 05-16-2023 MCHC (RBC) [Mass/Vol] 32.8 g/dL 32-36 [facility] Mucus LM Ql (Urine sed)Order ed By: Leonardo Haq on 05-16-2023 Mucus Ql (Urine sed) 0 SEEN /hpf [facility] Nitrite Test strip Ql (U)Ord ered By: Leonardo Haq on 05-16-2023 Nitrite Ql (U) Negative Negative [facility] No Panel InformationOrdered By: Leonardo Haq on 05-16-2023 Estimated Creatinine Clearance Calc 39.39 ml/min [facility] Estimated GFR (MDRD) Amer 92 mL/min >60 [facility] Comment on above: GFR Calc Estimated GFR (MDRD) Non-Af Amer 76 mL/min >60 [facility] Comment on above: Non- GFR Calc Platelets bldOrdered By: Lion Haq on 05-16-2023 Platelets (Bld) [#/Vol] 274 10*3/uL 150-450 [facility] Protein Test strip Ql (U)Ord ered By: Leonardo Haq on 05-16-2023 Protein Ql (U) 15 mg/dl Negative [facility] Serum or plasma calcium chan urement (mass/volume)Ordered By: Leonardo Haq on 05-16-2023 Calcium [Mass/Vol] 9.3 mg/dL 8.5-10.1 [facility] Serum or plasma creatinine m easurement (mass/volume)Ordered By: Leonardo Haq on 05-16-2023 Creatinine [Mass/Vol] 0.78 mg/dL 0.55-1.02 [facility] Comment on above: The validity of the calculated GFR & GFRAA in patients over 70 years has not been determined. Clinical correlation is essential. Serum or plasma urea nitroge n measurement (mass/volume)Ordered By: Leonardo Haq on 05-16-2023 Urea nitrogen [Mass/Vol] 15 mg/dL 7-18 [facility] Squamous epithelial cells de tection in urine sediment by light microscopyOrdered By: Leonardo Haq on 05-16-2023 Epithelial cells.squamous LM Ql (Urine sed) 0-5 SEEN /hpf 5-10 [facility] Thin prep Papanicolaou smear with manual screeningOrdered By: Leonardo Haq on 05-16-2023 Thin prep Papanicolaou smear with manual screening 4 5-15 [facility] Urine blood detectionOrdered By: Leonardo Haq on 05-16-2023 RBC Ql (U) 10 /ul Negative [facility] RBC Ql (U) 0-5 SEEN /hpf 0-5 [facility] Urine clarityOrdered By: Lion Haq on 05-16-2023 Clarity (U) Sl. Cloudy Clear [facility] Urine color determinationOrd ered By: Leonardo Haq on 05-16-2023 Color (U) Yellow Yellow [facility] Urine glucose detectionOrder ed By: Leonardo Haq on 05-16-2023 Glucose Ql (U) Normal mg/dl Normal [facility] Urine leukocyte esterase det ection by dipstickOrdered By: Leonardo Haq on 05-16-2023 Leukocyte esterase Test strip Ql (U) 25 /ul Negative [facility] Urine pHOrdered By: Leonardo Haq on 05-16-2023 pH (U) 5.0 [pH] 5.0 - 8.0 [facility] Urine sediment bacteria coun t by microscopy (number/high power field)Ordered By: Leonardo Haq on 05-16-2023 Bacteria LM.HPF (Urine sed) [#/Area] RARE /hpf None Seen [facility] Urine specific gravity measu rementOrdered By: Leonardo Haq on 05-16-2023 Specific gravity (U) [Rel density] 1.020 1.002-1.030 [facility] Urobilinogen Auto test strip Ql (U)Ordered By: Leonardo Haq on 05-16-2023 Urobilinogen Ql (U) Normal mg/dl Normal [facility] Amorphous sediment detection in urine sediment by light microscopyOrdered By: Alexx Rapp on 05-12-2023 Amorphous sediment LM Ql (Urine sed) 1+ URATE [facility] Basophil percentageOrdered B y: Alexx Rapp on 05-12-2023 Basophil percentage 25-50 SEEN /hpf 0-5 [facility] Bilirubin Test strip Ql (U)O rdered By: Alexx Rapp on 05-12-2023 Bilirubin Ql (U) Negative Negative [facility] Culture, urineOrdered By: Adolfo Rapp on 05-12-2023 Bacteria identified Cx Nom (U) Escherichia coli [facility] Ketones Test strip Ql (U)Ord ered By: Alexx Rapp on 05-12-2023 Ketones Ql (U) Negative Negative [facility] Mucus LM Ql (Urine sed)Order ed By: Alexx Rapp on 05-12-2023 Mucus Ql (Urine sed) 0 SEEN /hpf [facility] Nitrite Test strip Ql (U)Ord ered By: Alexx Rapp on 05-12-2023 Nitrite Ql (U) Negative Negative [facility] Protein Test strip Ql (U)Ord ered By: Alexx Rapp on 05-12-2023 Protein Ql (U) Negative Negative [facility] Squamous epithelial cells de tection in urine sediment by light microscopyOrdered By: Alexx Rapp on 05-12-2023 Epithelial cells.squamous LM Ql (Urine sed) 0-5 SEEN /hpf 5-10 [facility] Urine blood detectionOrdered By: Alexx Rapp on 05-12-2023 RBC Ql (U) 150 /ul Negative [facility] RBC Ql (U) 10-25 SEEN /hpf 0-5 [facility] Urine clarityOrdered By: Angela Rapp on 05-12-2023 Clarity (U) Sl. Cloudy Clear [facility] Urine color determinationOrd ered By: Alexx Rapp on 05-12-2023 Color (U) Yellow Yellow [facility] Urine glucose detectionOrder ed By: Alexx Rapp on 05-12-2023 Glucose Ql (U) Normal mg/dl Normal [facility] Urine leukocyte esterase det ection by dipstickOrdered By: Alexx Rapp on 05-12-2023 Leukocyte esterase Test strip Ql (U) 500 /ul Negative [facility] Urine pHOrdered By: Alexx sanchez on 05-12-2023 pH (U) 6.0 [pH] 5.0 - 8.0 [facility] Urine sediment bacteria coun t by microscopy (number/high power field)Ordered By: Alexx Rapp on 05-12-2023 Bacteria LM.HPF (Urine sed) [#/Area] RARE /hpf None Seen [facility] Urine specific gravity measu rementOrdered By: Alexx Rapp on 05-12-2023 Specific gravity (U) [Rel density] 1.010 1.002-1.030 [facility] Urobilinogen Auto test strip Ql (U)Ordered By: Alexx Rapp on 05-12-2023 Urobilinogen Ql (U) Normal mg/dl Normal [facility] CT CHEST IVCONon 01-25-20 [facility] No Panel Informationon 12-19 [email or web address]?={[email or web address]} [facility] Work Phone: [facility] n [facility] Work Phone: Order Reconciliationon 12-19 Order Reconciliation Page 1 Discharge Reconciliation Document Reconciliation Type: Discharge requested on behalf of Dutch Stevenson (Physician) done by Dutch Stevenson (DO) Discharge - Reconciliation: 19-Dec-2022 10:17 by: Dutch Stevenson (DO) Home Medications EnteredHOME MEDICATIONS AT DISCHARGE DateReconciliation Comment/ Additional Information lansoprazole 30 mg oral delayed release capsule 1 cap(s) orally once a day 12-Dec-2022 09:59 lansoprazole 30 mg oral delayed release capsule 1 cap(s) orally once a day 12-Dec-2022 09:59 lansoprazole 30 mg oral delayed release capsule is continued as lansoprazole 30 mg oral delayed release capsule methenamine hippurate 1 g oral tablet 1 tab(s) orally once a day 12-Dec-2022 09:58 methenamine hippurate 1 g oral tablet 1 tab(s) orally once a day 12-Dec-2022 09:58 methenamine hippurate 1 g oral tablet is continued as methenamine hippurate 1 g oral tablet simvastatin 10 mg oral tablet 1 tab(s) orally once a day (at bedtime) 12-Dec-2022 09:58 simvastatin 10 mg oral tablet 1 tab(s) orally once a day (at bedtime) 12-Dec-2022 09:58 simvastatin 10 mg oral tablet is continued as simvastatin 10 mg oral tablet Vitamin C 1000 mg oral tablet 1 tab(s) orally once a day 12-Dec-2022 09:59 Vitamin C 1000 mg oral tablet 1 tab(s) orally once a day 12-Dec-2022 09:59 Vitamin C 1000 mg oral tablet is continued as Vitamin C 1000 mg oral tablet All Active Home Medications at time of Discharge Reconciliation: 19-Dec-2022 10:17 lansoprazole 30 mg oral delayed release capsule 1 cap(s) orally once a day methenamine hippurate 1 g oral tablet 1 tab(s) orally once a day simvastatin 10 mg oral tablet 1 tab(s) orally once a day (at bedtime) Vitamin C 1000 mg oral tablet 1 tab(s) orally once a day Normal [facility] Initial Visit (Gastroenterol ogy)on 07-12-2022 Initial Visit (Gastroenterology) Diagnoses/Problems Assessed Chronic throat clearing (786.09) (R09.89) Orders Chronic throat clearing Start: Amitriptyline HCl - 10 MG Oral Tablet; TAKE 1 TABLET AT BEDTIME.MAY INCREASE TO 2 TABLETS AT BEDTIME AFTER 1 WEEK Rx By: Dutch Stevenson; Dispense: 30 Days ; #:60 Tablet; Refill: 11;For: Chronic throat clearing; ISIDRO = N; Verified Transmission to [facility] 18[facility]; Last Updated By: Jesica Milner; 07/12/2022 11:36:49 AM SocHx: Never a smoker Tobacco Use Screening; Status:Complete; Done: 12Jul2022 Perform:Not Applicable;Ordered; For:SocHx: Never a smoker; Ordered By:Bryanna Mendez; Patient Discussion/Summary Your chronic throat clearing may be due to the inlet patch or more likely a hypersensitivity which can improve with medical therapy. I prefer to do the next endoscopy which can include ablation in 3 to 6 months. Provider Impressions Chronic throat clearing Prominent inlet patch Possible BE vs IM of the cardia Chief Complaint New patient visit Adult Risk ScreeningAdult Risk Screening_UH: There are no spiritual/cultural practices/values/needs that are important to know Initial Fall Risk Screening: GREGG has not fallen in the last 6 months. Her fall did not result in injury. GREGG does not have a fear of falling. She does not need assistance with sitting, standing or walking. Does not need assistance walking in her home. She does not need assistance in an unfamiliar setting. The patient is not using an assistive device. Pain Scale: On a scale of 0 to 10, the patient rates the pain at 0. Living Will. Living Will: Living will on file. Healthcare POA: Health care proxy on file. Declaration of Mental Health Treatment: No mental health treatment on file. Tobacco Screening: GREGG does not use tobacco. Has not used tobacco in the past 6 months. Has not tried to quit or thought about quitting tobacco. Domestic Violence Screen: Does not feel threatened or abused physically, emotionally or sexually. Do you feel UNSAFE? The patient feels safe in the home. Depression/Suicide Screening: During the past 2 weeks, the patient has not felt down, depressed or hopeless. During the past 2 weeks, the patient has not felt little interest or pleasure in doing things. She does not have a risk of suicide. She has not had thoughts of harming others. Single alcohol screening question: In the past year the patient has had 5 or more drinks (men) or 4 or more drinks (women)? 0 time(s). Single substance abuse screening question: In the past year the patient has used a recreational drug or used a prescription drug for non-medical reasons? 0 time(s). Procedure or Sedation Areas: patient has not had alcohol, recreational drugs, or prescription drugs for non-medical reasons this morning. Nutrition Screening: In the past month, there was not a day when I or anyone in my family went hungry because there was not enough food. Patient Education: The patient denies that they or the person with them has problems with hearing, speaking, seeing, moving around or learning The patient is comfortable filling out medical forms. Food Insecurity: 1. Within the past 12 months, you worried that your food would run out before you got money to buy more: No 2. Within the past 12 months, the food you bought just didn't last and you didn't have money to get more: No History of Present Illness Here from [facility] and referred by . 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 Previously treated with several medications for GERD - PPI bid, Carafate Zuniga pH did not show GERD Currently on lansoprazole and no better No issues with heartburn Son is FP in [facility] [employer] Surgical History Problems History of Gallbladder surgery History of Hysterectomy Social History Problems Never a smoker Allergies Medication No Known Drug Allergies Recorded By: Bryanna Mendez; 07/12/2022 11:16:05 AM Current Meds Medication NameInstruction Methenamine Hippurate 1 GM Oral Tablet Simvastatin 10 MG Oral Tablet Vitals Vital Signs Recorded: 12Jul2022 11:09AM Gdoilwqsgas39.3 F Heart Rate85 Dxlpzyce022 Awelyzhui17 Height5 ft 3 in Ucltmu440 lb BMI Axrhgxqoph28.62 kg/m2 BSA Calculated1.66 Tobacco Useb) No PHQ-2 #1. Over the last 2 weeks have you felt down, depressed or hopeless? (If yes, answer PHQ-9 below)No PHQ-2 #2. Over the last 2 weeks have you felt little interest or pleasure in doing things? (If yes, answer PHQ-9 below)No Falls Screening (Age 18+)a) No falls within the last year Pain Scale0 Physical Exam Constitutional General appearance: In no acute distress . Eyes Anicteric Sclerae . Ears, Nose, Mouth, and Throat Orophar (more content not included)... Normal Touchworks Tobacco Screening.on 022 Adult depression screening assessment No [facility] [address] [facility] Work Phone: Fall risk assessment a) No falls within the last year [facility] [address] [facility] Work Phone: Tobacco use status CPHS b) No M [facility] [address] [facility] Work Phone: Absolute lymphocyte counton 03-04-2022 Lymphocytes Auto (Unsp spec) [#/Vol] 1.98 10*3/uL 0.83-4.51 [facility] Work Phone: [phone] Atypical perinuclear antineu trophil cytoplasmic antibodies measurementon 03-04-2022 Neutrophil cytoplasmic Ab.perinuclear.atypical IF (S) [Titer] <1:20 titer Neg:<1:20 [facility] Work Phone: [phone] Comment on above: The atypical pANCA p attern has been observed in asignificant percentage of patients with ulcerative colitis,primary sclerosing cholangitis and autoimmune hepatitis.Performed at: [facility] [address] [id number] Director: Antolin Fisher PhD, Phone: [phone] at: [facility] [address] [id number] Director: Jerrell Dean MD, Phone: [phone] Basophil percentageon 2021 Basophil percentage < 0.2 AI 0.0-0.9 [facility] Work Phone: Basophils/100 WBC (Bld) 0.4 % 0-1 [facility] Work Phone: Eosinophils/100 WBC (Bld) 1.5 % 0-5 [facility] Work Phone: Neutrophils (Bld) [#/Vol] 5.4 10*3/uL 2.0-7.7 [facility] Work Phone: Neutrophils/100 WBC (Bld) 67.6 % 47-70 [facility] Work Phone: WBC (Bld) [#/Vol] 8.0 10*3/uL 4.4-11.0 [facility] Work [facility]: Blood erythrocytes count (nu mber/volume)on 03-04-2022 RBC (Bld) [#/Vol] 4.65 10*6/uL 4.2-5.4 [facility] Work Phone: Blood hemoglobin measurement (mass/volume)on 03-04-2022 Hemoglobin (Bld) [Mass/Vol] 14.5 g/dL 12.0-15.0 [facility] Work Phone: Blood lymphocytes/100 leukoc yteson 03-04-2022 Lymphocytes/100 WBC (Bld) 24.9 % 19-41 [facility] Work Phone: [phone] Blood monocytes/100 leukocyt eson 03-04-2022 Monocytes/100 WBC (Bld) 5.3 % 0-10 [facility] Work Phone: Blood platelet mean volumeon 03-04-2022 Platelet mean volume (Bld) [Entitic vol] 11.0 fL 6.2-12.0 [facility] Work Phone: Determination of erythrocyte mean corpuscular volume (MCV)on 03-04-2022 MCV (RBC) [Entitic vol] 96.3 fL 81-99 [facility] Work Phone: Erythrocyte sedimentation ra luis 03-04-2022 ESR (Bld) [Velocity] 5 mm/h 0-30 [facility] Work Phone: [phone] Hematocrit Auto (Bld) [Volum e fraction]on 03-04-2022 Hematocrit (Bld) [Volume fraction] 44.8 % 37-47 [facility] Work Phone: Laboratory - Hematology and Cell countson 03-04-2022 Erythrocyte distribution width (RBC) [Entitic vol] 43.8 fL 35.1-43.9 [facility] Work Phone: [phone] Erythrocyte distribution width (RBC) [Ratio] 12.3 % 11.6-14.6 [facility] Work Phone: [phone] Immature granulocytes/100 WBC (Bld) 0.300 % 0.0-0.9 [facility] Work Phone: Comment on above: IG% - Immature Granu locytes (promyelocytes, myelocytes and metamyelocytes) > 1% indicates that a LEFT SHIFT is Present. MCH (RBC) [Entitic mass] 31.2 pg 27.0-32.0 [facility] Work Phone: [phone] Nucleated RBC/100 WBC (Bld) [Ratio] 0 % 0-5 [facility] Work Phone: [phone] MCHC Auto (RBC) [Mass/Vol]on 03-04-2022 MCHC (RBC) [Mass/Vol] 32.4 g/dL 32-36 [facility] Work Phone: [phone] Panel Informationon 03-04 Centromere B Antibody <0.2 AI 0.0-0.9 [facility] Work Phone: [phone] Endomysial IgA Antibody Negative Negative [facility] Work Phone: [phone] Immunoglobulin E 30 IU/mL 6-495 [facility] Work Phone: [phone] SOLUTION MAKER Antibody 0.3 AI 0.0-0.9 [facility] Work Phone: [phone] Platelets bldon 03-04-2022 Platelets (Bld) [#/Vol] 261 10*3/uL 150-450 [facility] Work Phone: [phone] Serum DNA double strand anti body assay (units/volume)on 03-04-2022 DNA double strand Ab Qn (S) [IU]/mL 0-9 [facility] Work Phone: [phone] Comment on above: Negative <5 Equivoca l 5 - 9 Positive >9 Serum Deb-1 antibody assay (u nits/volume)on 03-04-2022 Deb-1 extractable nuclear Ab Qn (S) <0.2 AI 0.0-0.9 [facility] Work Phone: [phone] Serum Scl-70 extractable nuc lear antibody assay (units/volume)on 03-04-2022 SCL-70 extractable nuclear Ab Qn (S) <0.2 AI 0.0-0.9 [facility] Work Phone: [phone] Serum Medrano extractable nucl ear antibody detectionon 03-04-2022 Medrano extractable nuclear Ab Ql (S) <0.2 AI 0.0-0.9 [facility] Work Phone: [phone] Serum classic neutrophil cyt oplasmic antibody assay (units/volume)on 03-04-2022 Neutrophil cytoplasmic Ab.classic Qn (S) <1:20 titer Neg:<1:20 [facility] Work Phone: [phone] Serum or plasma C reactive p rotein measurement (mass/volume)on 03-04-2022 CRP [Mass/Vol] mg/L 0.0-3.0 [facility] Work Phone: Comment on above: C-Reactive Protein ( CRP) provides useful information for thediagnosis, therapy and monitoring of inflammatory processesand associated diseases. For the evaluation of Relative Riskfor Cardiovascular Disease, a High Sensitivity CRP (HSCRP)should be ordered. Serum or plasma IgA measurem ent (mass/volume)on 03-04-2022 IgA [Mass/Vol] 225 mg/dL 64-422 [facility] Work Phone: [phone] Serum or plasma IgG measurem ent (mass/volume)on 03-04-2022 IgG [Mass/Vol] 918 mg/dL 586-1602 [facility] Work Phone: [phone] Serum or plasma IgM measurem ent (mass/volume)on 03-04-2022 IgM [Mass/Vol] 42 mg/dL 26-217 [facility] Work Phone: [phone] Serum perinuclear neutrophil cytoplasmic antibody titer by immunofluorescenceon 03-04-2022 Neutrophil cytoplasmic Ab.perinuclear IF (S) [Titer] <1:20 titer Neg:<1:20 [facility] Work Phone: Comment on above: The presence of posi tive fluorescence exhibiting P-ANCA orC-ANCA patterns alone is not specific for the diagnosis ofWegener's Granulomatosis (WG) or microscopic polyangiitis.Decisions about treatment should not be based solely onANCA IFA results. The [employer] ANCA Group Consensusrecommends follow up testing of positive sera with both AK-3 and MPO-ANCA enzyme immunoassays. As many as 5% serumsamples are positive only by EIA. Ref. AM J Clin Fssxil1299;111:507-513. Serum tissue transglutaminas e IgA antibody assay (units/volume)on 03-04-2022 tTG IgA Qn (S) <2 U/mL 0-3 [facility] Work Phone: Comment on above: Negative 0 - 3 Weak Positive 4 - 10 Positive >10 Tissue Transglutaminase (tTG) has been identified as the endomysial antigen. Studies have demonstr- ated that endomysial IgA antibodies have over 99% specificity for gluten sensitive enteropathy. Thin prep Papanicolaou smear with manual screeningon 03-04-2022 Thin prep Papanicolaou smear with manual screening 193 U/L 84-246 [facility] Work Phone: XR Cervical spine AP and Lat eral and obliqueon 04-09-2021 IMPRESSION: Spondylosis of the cervical spine. Advertising Executive: YURI Transcribe Date/Time: Apr 09 2021 8:43A Dictated by : VIC RODRIGUEZ MD This examination was interpreted and the report reviewed and electronically signed by: VIC RODRIGUEZ MD on Apr 09 2021 8:44AM [facility] DIVISION OF RADIOLOGY * * *Final Report* * * DATE OF EXAM: Apr 09 2021 8:30AM WOX 5311 - XR CERVICAL 4V AP/LAT/OBL / PROCEDURE REASON: multiple diagnoses * * * * Physician Interpretation * * * * Cervical spine radiographs HISTORY: 75 years old Clinical information: Numbness and tingling Numbness and tingling pt states for the last 4 months off and on will get these needle sticks pricks throughout the entire body at different spots. Has no issue with the neck. no inj TECHNIQUE: Images: XR CERVICAL 4V AP/LAT/OBL Comparison: None. RESULT: Findings: Intervertebral disc space narrowing and endplate osteophyte formation at multiple levels in the cervical spine. Left-sided C6-7 neural foraminal stenosis. Suboptimal evaluation of the right neural foramina secondary to patient positioning. There is multilevel right-sided neural foraminal stenosis. No fracture. The prevertebral soft tissues are within normal limits. Imaged lung apices are clear. DIVISION [facility]OLOGY [facility] * * *Final Report* * * DATE OF EXAM: Apr 09 2021 8:30AM WOX 5311 - XR CERVICAL 4V AP/LAT/OBL / PROCEDURE REASON: multiple diagnoses * * * * Physician Interpretation * * * * Cervical spine radiographs HISTORY: 75 years old Clinical information: Numbness and tingling Numbness and tingling pt states for the last 4 months off and on will get these needle sticks pricks throughout the entire body at different spots. Has no issue with the neck. no inj TECHNIQUE: Images: XR CERVICAL 4V AP/LAT/OBL Comparison: None. RESULT: Findings: Intervertebral disc space narrowing and endplate osteophyte formation at multiple levels in the cervical spine. Left-sided C6-7 neural foraminal stenosis. Suboptimal evaluation of the right neural foramina secondary to patient positioning. There is multilevel right-sided neural foraminal stenosis. No fracture. The prevertebral soft tissues are within normal limits. Imaged lung apices are clear. IMPRESSION IMPRESSION: Spondylosis of the cervical spine. Advertising Executive: [facility] CENTER[facility]ani Transcribe Date/Time: Apr 09 2021 8:43A Dictated by : VIC RODRIGUEZ MD This examination was interpreted and the report reviewed and electronically signed by: VIC RODRIGUEZ MD on Apr 09 2021 8:44AM [facility] Radiology Study observation (narrative) [facility] XR Cervical spine AP and Lat eral and obliqueOrdered By: [facility] Provider on 04-09-2021 [facility] XR Chest PA and Lateralon IMPRESSION: Stable chest. No acute cardiopulmonary process. Advertising Executive: PSCB Transcribe Date/Time: Jan 28 2021 3:19P Dictated by : SHARONA PLEITEZ MD This examination was interpreted and the report reviewed and electronically signed by: SHARONA PLEITEZ MD on Jan 28 2021 3:21PM [facility] DIVISION OF RADIOLOGY * * *Final Report* * * DATE OF EXAM: Jan 28 2021 2:08PM WOX 5291 - XR CHEST 2V FRONTAL/LAT / PROCEDURE REASON: Cough * * * * Physician Interpretation * * * * EXAMINATION: CHEST RADIOGRAPH (2 VIEW FRONTAL & LATERAL) CLINICAL HISTORY: Cough. MQ: XC2_6 EXAM DATE/TIME: 01/28/2021 2:08 PM COMPARISON: Comparison is made to prior study dated 05 July 2019 and 24 Mar 2019 RESULT: Lines, tubes, and devices: None. Lungs and pleura: There is no focal consolidation or acute pleural process/fluid. There is no vascular redistribution to suggest pulmonary edema. Cardiomediastinal silhouette: The cardiac, mediastinal and hilar shadows are unchanged and remain within normal limits.i retrocardiac hiatal hernia again noted. Other: The bony structures are osteopenic with accentuated thoracolumbar kyphosis which is unchanged. No acute compression deformity. DIVISION OF RADIOLOGY Provider, [facility] - 01/28/2021 * * *Final Report* * * DATE OF EXAM: Jan 28 2021 2:08PM WOX 5291 - XR CHEST 2V FRONTAL/LAT / PROCEDURE REASON: Cough * * * * Physician Interpretation * * * * EXAMINATION: CHEST RADIOGRAPH (2 VIEW FRONTAL & LATERAL) CLINICAL HISTORY: Cough. MQ: XC2_6 EXAM DATE/TIME: 01/28/2021 2:08 PM COMPARISON: Comparison is made to prior study dated 05 July 2019 and 24 Mar 2019 RESULT: Lines, tubes, and devices: None. Lungs and pleura: There is no focal consolidation or acute pleural process/fluid. There is no vascular redistribution to suggest pulmonary edema. Cardiomediastinal silhouette: The cardiac, mediastinal and hilar shadows are unchanged and remain within normal limits.i retrocardiac hiatal hernia again noted. Other: The bony structures are osteopenic with accentuated thoracolumbar kyphosis which is unchanged. No acute compression deformity. IMPRESSION IMPRESSION: Stable chest. No acute cardiopulmonary process. Advertising Executive: PSCB Transcribe Date/Time: Jan 28 2021 3:19P Dictated by : SHARONA PLEITEZ MD This examination was interpreted and the report reviewed and electronically signed by: SHARONA PLEITEZ MD on Jan 28 2021 3:21PM EST [facility] Radiology Study observation (narrative) Yesi [facility] XR Chest PA and LateralOrder ed By: [facility] Provider on 01-28-2021 [facility] Vital Signs Date Time Vital Sign Value Performing Clinician Facility 08-22-2025 14:32-0400 Body height 160.[address] Rangel Bonilla MD Work Phone: 0(815)174-389582 [place] [address] 08-22-2025 14:32-0400 Body mass index (BMI) [Ratio] 23.9 kg/m2 Dr. Rangel Bonilla MD Work Phone: 3(716)710-726782 [place] [address] 08-22-2025 14:32-0400 Body temperature 98 [degF] Dr. Rangel Bonilla MD Work Phone: 2(138)499-560582 [place] [address] 08-22-2025 14:32-0400 Body weight 61.[address] Rangel Bonilla MD Work Phone: 2(733)778-915382 [place] [address] 08-22-2025 14:32-0400 Diastolic blood pressure 84 mm[Hg] Dr. Rangel Bonilla MD Work Phone: 5(442)433-517282 [place] [address] 08-22-2025 14:32-0400 Heart rate 80 /min Dr. Rangel Bonilla MD Work Phone: 6(863)789-309682 [place] [address] 08-22-2025 14:32-0400 Systolic blood pressure 142 mm[Hg] Dr. Rangel Bonilla MD Work Phone: 6(911)977-080082 [place] [address] 07-28-2025 16:38-0400 Body height 160.[address] Rangel Bonilla MD Work Phone: 0(209)730-460082 [place] [address] 07-28-2025 16:38-0400 Body mass index (BMI) [Ratio] 23.9 kg/m2 Dr. Rangel Bonilla MD Work Phone: 1(559)128-454282 [place] [address] 07-28-2025 16:38-0400 Body temperature 98.3 [degF] Dr. Rangel Bonilla MD Work Phone: 0(318)561-273182 [place] [address] 07-28-2025 16:38-0400 Body weight 61.[address] Rangel Bonilla MD Work Phone: 5(901)892-327482 [place] [address] 07-28-2025 16:38-0400 Diastolic blood pressure 99 mm[Hg] Dr. Rangel Bonilla MD Work Phone: 2(889)834-934282 [place] [address] 07-28-2025 16:38-0400 Heart rate 97 /min Dr. Rangel Bonilla MD Work Phone: 4(892)520-711882 [place] [address] 07-28-2025 16:38-0400 Respiratory rate 16 /min Dr. Rangel Bonilla MD Work Phone: 6(781)176-943482 [place] [address] 07-28-2025 16:38-0400 SaO2% (BldA) [Mass fraction] 98 % Dr. Rangel Bonilla MD Work Phone: 4(874)959-683482 [place] [address] 07-28-2025 16:38-0400 Systolic blood pressure 177 mm[Hg] Dr. Rangel Bonilla MD Work Phone: 2(812)336-383282 [place] [address] 07-22-2025 15:35-0400 Body temperature 97.8 [degF] Dr. Rangel Bonilla MD Work Phone: 3(727)372-424382 [place] [address] 07-22-2025 15:35-0400 Diastolic blood pressure 120 mm[Hg] Dr. Rangel Bonilla MD Work Phone: 3(663)680-412582 [place] [address] 07-22-2025 15:35-0400 Heart rate 91 /min Dr. Rangel Bonilla MD Work Phone: 0(682)186-233082 [place] [address] 07-22-2025 15:35-0400 Respiratory rate 22 /min Dr. Rangel Bonilla MD Work Phone: 8(610)246-823482 [place] [address] 07-22-2025 15:35-0400 SaO2% (BldA) [Mass fraction] 97 % Dr. Rangel Bonilla MD Work Phone: 0(816)583-376782 [place] [address] 07-22-2025 15:35-0400 Systolic blood pressure 156 mm[Hg] Dr. Rangel Bonilla MD Work Phone: 1(385)476-126782 [place] [address] 07-22-2025 11:37-0400 Body mass index (BMI) [Ratio] 24.7 kg/m2 Dr. Rangel Bonilla MD Work Phone: 9(806)739-340182 [place] [address] 07-22-2025 11:37-0400 Body weight 63.[address] Rangel Bonilla MD Work Phone: [facility] 07-10-2025 10:51-0400 Body mass index (BMI) [Ratio] 24.62 kg/m2 Rangel Bonilla MD Work Phone: [facility] 07-10-2025 10:51-0400 Body temperature 99 [degF] Rangel Bonilla MD Work Phone: [facility] 07-10-2025 10:51-0400 Body weight 63.05 kg Rangel Bonilla MD Work Phone: [facility] 07-10-2025 10:51-0400 Diastolic blood pressure 98 mm[Hg] Rangel Bonilla MD Work Phone: [facility] 07-10-2025 10:51-0400 Heart rate 108 /min Rangel Bonilla MD Work Phone: [facility] 07-10-2025 10:51-0400 Respiratory rate 18 /min Rangel Bonilla MD Work Phone: [facility] 07-10-2025 10:51-0400 SaO2% (BldA) [Mass fraction] 96 % Rangel Bonilla MD Work Phone: [facility] 07-10-2025 10:51-0400 Systolic blood pressure 162 mm[Hg] Rangel Bonilla MD Work Phone: [facility] 07-08-2025 09:57-0400 Body mass index (BMI) [Ratio] 24.72 kg/m2 Ludmila Swank [employer] Work Phone: [facility] 07-08-2025 09:57-0400 Body temperature 98.4 [degF] Ludmila Swank [employer] Work Phone: [facility] 07-08-2025 09:57-0400 Body weight 63.3 kg Ludmila Swank [employer] Work Phone: [facility] 07-08-2025 09:57-0400 Diastolic blood pressure 72 mm[Hg] Ludmila Swank [employer] Work Phone: [facility] 07-08-2025 09:57-0400 Heart rate 104 /min Ludmila Swank [employer] Work Phone: [facility] 07-08-2025 09:57-0400 Respiratory rate 18 /min Ludmila Swank [employer] Work Phone: [facility] 07-08-2025 09:57-0400 SaO2% (BldA) [Mass fraction] 97 % Ludmila Swank [employer] Work Phone: [facility] 07-08-2025 09:57-0400 Systolic blood pressure 124 mm[Hg] Ludmila Swank [employer] Work Phone: [facility] 06-06-2025 12:13-0400 Body height 160.[address] Rangel Bonilla MD Work Phone: 0(585)271-915023 [place] [address] 06-06-2025 12:13-0400 Body mass index (BMI) [Ratio] 23.7 kg/m2 Dr. Rangel Bonilla MD Work Phone: 1(014)963-359123 [place] [address] 06-06-2025 12:13-0400 Body weight 60.[address] Rangel Bonilla MD Work Phone: 8(792)198-329782 [place] [address] 06-06-2025 12:13-0400 Diastolic blood pressure 90 mm[Hg] Dr. Rangel Bonilla MD Work Phone: 7(340)225-765423 [place] [address] 06-06-2025 12:13-0400 Heart rate 109 /min Dr. Rangel Bonilla MD Work Phone: 0(371)788-234323 [place] [address] 06-06-2025 12:13-0400 Systolic blood pressure 138 mm[Hg] Dr. Rangel Bonilla MD Work Phone: 0(582)692-178582 [place] [address] 06-03-2025 10:27-0400 Body mass index (BMI) [Ratio] 24.64 kg/m2 Dave MOROCHO Work Phone: [facility] 06-03-2025 10:27-0400 Body temperature 97.9 [degF] Krislyn Aberegg PA Work Phone: [facility] 06-03-2025 10:27-0400 Body weight 63.1 kg Krislyn Aberegg PA Work Phone: [facility] 06-03-2025 10:27-0400 Diastolic blood pressure 70 mm[Hg] Krislyn Aberegg PA Work Phone: [facility] 06-03-2025 10:27-0400 Heart rate 112 /min Krislyn Aberegg PA Work Phone: [facility] 06-03-2025 10:27-0400 Respiratory rate 16 /min Krislyn Aberegg PA Work Phone: [facility] 06-03-2025 10:27-0400 SaO2% (BldA) [Mass fraction] 98 % Krislyn Aberegg PA Work Phone: [facility] 06-03-2025 10:27-0400 Systolic blood pressure 124 mm[Hg] Krislyn Aberegg PA Work Phone: [facility] 05-28-2025 08:08-0400 Body mass index (BMI) [Ratio] 24.8 kg/m2 Christiana Podlogar [employer] Work Phone: [facility] 05-28-2025 08:08-0400 Body temperature 98.29 [degF] Christiana Podlogar [employer] Work Phone: [facility] 05-28-2025 08:08-0400 Body weight 63.5 kg Christiana Podlogar [employer] Work Phone: [facility] 05-28-2025 08:08-0400 Diastolic blood pressure 88 mm[Hg] Christiana Podlogar [employer] Work Phone: [facility] 05-28-2025 08:08-0400 Heart rate 97 /min Christiana Hernandezlogar [employer] Work Phone: [facility] 05-28-2025 08:08-0400 Respiratory rate 18 /min Christiana Podlogar [employer] Work Phone: [facility] 05-28-2025 08:08-0400 SaO2% (BldA) [Mass fraction] 96 % Christiana Podlogar [employer] Work Phone: [facility] 05-28-2025 08:08-0400 Systolic blood pressure 164 mm[Hg] Christiana Podlogar [employer] Work Phone: [facility] 05-14-2025 16:43-0400 Body mass index (BMI) [Ratio] 25.46 kg/m2 Rangel Penddmitry [employer] Work Phone: [facility] 05-14-2025 16:43-0400 Body temperature 98.01 [degF] Rangel Gayle [employer] Work Phone: [facility] 05-14-2025 16:43-0400 Body weight 65.2 kg Rangel Gayle [employer] Work Phone: [facility] 05-14-2025 16:43-0400 Diastolic blood pressure 82 mm[Hg] Rangel Penddmitry [employer] Work Phone: [facility] 05-14-2025 16:43-0400 Heart rate 100 /min Rangel Gayle [employer] Work Phone: [facility] 05-14-2025 16:43-0400 Respiratory rate 18 /min Rangel Gayle [employer] Work Phone: [facility] 05-14-2025 16:43-0400 SaO2% (BldA) [Mass fraction] 98 % Rangelruby Méndezdmitry [employer] Work Phone: [facility] 05-14-2025 16:43-0400 Systolic blood pressure 132 mm[Hg] Rangel Méndezdmitry [employer] Work Phone: [facility] 04-13-2025 15:54-0400 Body temperature 98.1 [degF] Dr. Rangel Bonilla MD Work Phone: [facility] 04-13-2025 15:54-0400 Diastolic blood pressure 70 mm[Hg] Dr. Rangel Bonilla MD Work Phone: 3(115)[phone] [place] [address] 04-13-2025 15:54-0400 Heart rate 81 /min Dr. Rangel Bonilla MD Work Phone: 9(044)253-573582 [place] [address] 04-13-2025 15:54-0400 Respiratory rate 22 /min Dr. Rangel Bonilla MD Work Phone: 2(818)516-903382 [place] [address] 04-13-2025 15:54-0400 SaO2% (BldA) [Mass fraction] 97 % Dr. Rangel Bonilla MD Work Phone: 9(363)824-301582 [place] [address] 04-13-2025 15:54-0400 Systolic blood pressure 173 mm[Hg] Dr. Rangel Bonilla MD Work Phone: 4(305)979-992782 [place] [address] 04-13-2025 12:19-0400 Body height 160.[address] Rangel Bonilla MD Work Phone: 8(810)988-307382 [place] [address] 04-13-2025 12:19-0400 Body mass index (BMI) [Ratio] 23.7 kg/m2 Dr. Rangel Bonilla MD Work Phone: [facility] 04-13-2025 12:19-0400 Body weight 60.[address] Rangel Bonilla MD Work Phone: [facility] 03-17-2025 16:23-0400 Body mass index (BMI) [Ratio] 24.33 kg/m2 Helena Vazquez APRN.[employer] Work Phone: [facility] 03-17-2025 16:23-0400 Body temperature 98.29 [degF] Helena Vazquez APRN.[employer] Work Phone: [facility] 03-17-2025 16:23-0400 Body weight 62.3 kg Helena Vazquez APRN.[employer] Work Phone: [facility] 03-17-2025 16:23-0400 Diastolic blood pressure 84 mm[Hg] Helena Vazquez APRN.[employer] Work Phone: [facility] 03-17-2025 16:23-0400 Heart rate 79 /min Helena Vazquez APRN.[employer] Work Phone: [facility] 03-17-2025 16:23-0400 Respiratory rate 18 /min Helena Vazquez APRN.[employer] Work Phone: [facility] 03-17-2025 16:23-0400 SaO2% (BldA) [Mass fraction] 96 % Helena Vazquez APRN.[employer] Work Phone: [facility] 03-17-2025 16:23-0400 Systolic blood pressure 152 mm[Hg] Helena Vazquez APRN.[employer] Work Phone: [facility] 01-31-2025 11:34-0400 Diastolic blood pressure 82 mm[Hg] Cabrera Landeros MD Work Phone: [facility] 01-31-2025 11:34-0400 Heart rate 68 /min Cabrera Landeros MD Work Phone: [facility] 01-31-2025 11:34-0400 Respiratory rate 18 /min Cabrera Landeros MD Work Phone: [facility] 01-31-2025 11:34-0400 SaO2% (BldA) [Mass fraction] 99 % Cabrera Landeros MD Work Phone: [facility] 01-31-2025 11:34-0400 Systolic blood pressure 130 mm[Hg] Cabrera Landeros MD Work Phone: [facility] 01-15-2025 09:22-0400 Body mass index (BMI) [Ratio] 25.54 kg/m2 Katelin Jameson APRN.[employer] Work Phone: [facility] 01-15-2025 09:22-0400 Body temperature 99 [degF] Katelin Jameson APRN.[employer] Work Phone: [facility] 01-15-2025 09:22-0400 Body weight 63.96 kg Katelin Jameson [employer] Work Phone: [facility] 01-15-2025 09:22-0400 Diastolic blood pressure 103 mm[Hg] Katelin Jameson [employer] Work Phone: [facility] 01-15-2025 09:22-0400 Heart rate 88 /min Katelin Jameson [employer] Work Phone: [facility] 01-15-2025 09:22-0400 Respiratory rate 16 /min Katelin Jameson [employer] Work Phone: [facility] 01-15-2025 09:22-0400 SaO2% (BldA) [Mass fraction] 97 % Katelin Jameson [employer] Work Phone: [facility] 01-15-2025 09:22-0400 Systolic blood pressure 164 mm[Hg] Katelin Jameson [employer] Work Phone: [facility] 01-15-2025 08:28-0400 Body height 158.2 cm Lorri Whistle Groupi DO Work Phone: [facility] 01-15-2025 08:28-0400 Body mass index (BMI) [Ratio] 25.63 kg/m2 Lorri Masci DO Work Phone: [facility] 01-15-2025 08:28-0400 Body temperature 99 [degF] Lorri Masci DO Work Phone: [facility] 01-15-2025 08:28-0400 Body weight 64.18 kg Lorri Masci DO Work Phone: [facility] 01-15-2025 08:28-0400 Diastolic blood pressure 103 mm[Hg] Lorri Masci DO Work Phone: [facility] 01-15-2025 08:28-0400 Heart rate 105 /min Lorri Masci DO Work Phone: [facility] 01-15-2025 08:28-0400 SaO2% (BldA) [Mass fraction] 97 % Lorri Whistle [employer] DO Work Phone: [facility] 01-15-2025 08:28-0400 Systolic blood pressure 165 mm[Hg] Lorri Clark DO Work Phone: [facility] 01-14-2025 13:19-0400 Body mass index (BMI) [Ratio] 26.21 kg/m2 Alan Vigil [employer] Work Phone: [facility] 01-14-2025 13:19-0400 Body weight 65 kg Alan Vigil [employer] Work Phone: [facility] 01-14-2025 13:19-0400 Diastolic blood pressure 70 mm[Hg] Alan Vigil [employer] Work Phone: [facility] 01-14-2025 13:19-0400 Heart rate 107 /min Alan Vigil [employer] Work Phone: [facility] 01-14-2025 13:19-0400 Systolic blood pressure 150 mm[Hg] Alan Vigil [employer] Work Phone: [facility] 08-21-2024 17:27-0400 Diastolic blood pressure 77 mm[Hg] Rangel Bonilla MD Work Phone: [facility] 08-21-2024 17:27-0400 Systolic blood pressure 130 mm[Hg] Rangel Bonilla MD Work Phone: [facility] 08-21-2024 17:08-0400 Body mass index (BMI) [Ratio] 24.69 kg/m2 Rangel Bonilla MD Work Phone: [facility] 08-21-2024 17:08-0400 Body weight 61.24 kg Rangel Bonilla MD Work Phone: [facility] 08-21-2024 17:08-0400 Heart rate 66 /min Rangel Bonilla MD Work Phone: [facility] 08-21-2024 17:08-0400 Respiratory rate 18 /min Rangel Bonilla MD Work Phone: [facility] 08-21-2024 17:08-0400 SaO2% (BldA) [Mass fraction] 96 % Rangel Bonilla MD Work Phone: [facility] 07-22-2024 14:49-0400 Body mass index (BMI) [Ratio] 24.14 kg/m2 Cabrera Landeros MD Work Phone: [facility] 07-22-2024 14:49-0400 Body weight 59.88 kg Cabrera Landeros MD Work Phone: [facility] 07-22-2024 14:49-0400 Diastolic blood pressure 84 mm[Hg] Cabrera Landeros MD Work Phone: [facility] 07-22-2024 14:49-0400 Heart rate 105 /min Cabrera Landeros MD Work Phone: [facility] 07-22-2024 14:49-0400 Respiratory rate 17 /min Cabrera Landeros MD Work Phone: [facility] 07-22-2024 14:49-0400 SaO2% (BldA) [Mass fraction] 98 % Cabrera Landeros MD Work Phone: [facility] 07-22-2024 14:49-0400 Systolic blood pressure 132 mm[Hg] Cabrera Landeros MD Work Phone: [facility] 07-18-2024 12:11-0400 Diastolic blood pressure 78 mm[Hg] Rangel Bonilla MD Work Phone: [facility] 07-18-2024 12:11-0400 Systolic blood pressure 138 mm[Hg] Rangel Bonilla MD Work Phone: [facility] 07-18-2024 11:29-0400 Body height 157.5 cm Rangel Bonilla MD Work Phone: [facility] 07-18-2024 11:29-0400 Body mass index (BMI) [Ratio] 24.14 kg/m2 Rangel Bonilla MD Work Phone: [facility] 07-18-2024 11:29-0400 Body weight 59.88 kg Rangel Bonilla MD Work Phone: [facility] 07-18-2024 11:29-0400 Heart rate 80 /min Rangel Bonilla MD Work Phone: [facility] 05-21-2024 14:42-0400 Body height 158 cm Lorri Stokesi DO Work Phone: [facility] 05-21-2024 14:42-0400 Body mass index (BMI) [Ratio] 24.17 kg/m2 Lorri Masci DO Work Phone: [facility] 05-21-2024 14:42-0400 Body temperature 98.01 [degF] Lorri Masci DO Work Phone: [facility] 05-21-2024 14:42-0400 Body weight 60.33 kg Lorri Masci DO Work Phone: [facility] 05-21-2024 14:42-0400 Diastolic blood pressure 81 mm[Hg] Lorri Masci DO Work Phone: [facility] 05-21-2024 14:42-0400 Heart rate 117 /min Olrri Masci DO Work Phone: [facility] 05-21-2024 14:42-0400 SaO2% (BldA) [Mass fraction] 96 % Lorri Masci DO Work Phone: [facility] 05-21-2024 14:42-0400 Systolic blood pressure 142 mm[Hg] Lorri Divyai DO Work Phone: [facility] 05-08-2024 08:06-0400 Body mass index (BMI) [Ratio] 24.84 kg/m2 Kalpana Arndt MD Work Phone: [facility] 05-08-2024 08:06-0400 Body weight 60.6 kg Kalpana Arndt MD Work Phone: [facility] 05-08-2024 08:06-0400 Diastolic blood pressure 78 mm[Hg] Kalpana Arndt MD Work Phone: [facility] 05-08-2024 08:06-0400 Systolic blood pressure 130 mm[Hg] Kalpana Arndt MD Work Phone: [facility] 04-30-2024 15:01-0400 Body height 156.2 cm Pulm Wstr Work Phone: [facility] 04-30-2024 15:01-0400 Body mass index (BMI) [Ratio] 24.17 kg/m2 Pulm Wstr Work Phone: [facility] 04-30-2024 15:01-0400 Body weight 58.97 kg Pulm Wstr Work Phone: [facility] 04-30-2024 15:01-0400 Heart rate 104 /min Pulm Wstr Work Phone: [facility] 04-30-2024 15:01-0400 SaO2% (BldA) [Mass fraction] 95 % Pulm Wstr Work Phone: [facility] 04-19-2024 12:52-0400 Body mass index (BMI) [Ratio] 24.69 kg/m2 aRyna Martinez PA-C Work Phone: [facility] 04-19-2024 12:52-0400 Body temperature 98.6 [degF] Rayna Martinez PA-C Work Phone: [facility] 04-19-2024 12:52-0400 Body weight 61.24 kg Rayna Martinez PA-C Work Phone: [facility] 04-19-2024 12:52-0400 Diastolic blood pressure 86 mm[Hg] Rayna Martinez PA-C Work Phone: [facility] 04-19-2024 12:52-0400 Heart rate 115 /min Rayna Martinez PA-C Work Phone: [facility] 04-19-2024 12:52-0400 Respiratory rate 16 /min Rayna Martinez PA-C Work Phone: [facility] 04-19-2024 12:52-0400 SaO2% (BldA) [Mass fraction] 98 % Ranya Martinez PA-C Work Phone: [facility] 04-19-2024 12:52-0400 Systolic blood pressure 112 mm[Hg] Rayna Martinez PA-C Work Phone: [facility] 04-19-2024 10:56-0400 Body height 157.5 cm Cabrera Landeros MD Work Phone: [facility] 04-19-2024 10:56-0400 Body mass index (BMI) [Ratio] 24.51 kg/m2 Cabrera Landeros MD Work Phone: [facility] 04-19-2024 10:56-0400 Body temperature 98.6 [degF] Cabrera Landeros MD Work Phone: [facility] 04-19-2024 10:56-0400 Body weight 60.78 kg Cabrera Landeros MD Work Phone: [facility] 04-19-2024 10:56-0400 Diastolic blood pressure 86 mm[Hg] Cabrera Landeros MD Work Phone: [facility] 04-19-2024 10:56-0400 Heart rate 117 /min Cabrera Landeros MD Work Phone: [facility] 04-19-2024 10:56-0400 Respiratory rate 19 /min Cabrera Landeros MD Work Phone: [facility] 04-19-2024 10:56-0400 SaO2% (BldA) [Mass fraction] 97 % Cabrera Landeros MD Work Phone: [facility] Comment on above: 2L per [place] 04-19-2024 10:56-0400 Systolic blood pressure 148 mm[Hg] Cabrera Landeros MD Work Phone: [facility] 04-15-2024 09:06-0400 Diastolic blood pressure 82 mm[Hg] Rangel Bonilla MD Work Phone: [facility] 04-15-2024 09:06-0400 Systolic blood pressure 134 mm[Hg] Rangel Bonilla MD Work Phone: [facility] 04-15-2024 08:07-0400 Body mass index (BMI) [Ratio] 24.89 kg/m2 Rangel Bonilla MD Work Phone: [facility] 04-15-2024 08:07-0400 Body temperature 98.8 [degF] Rangel Bonilla MD Work Phone: [facility] 04-15-2024 08:07-0400 Body weight 61.24 kg Rangel Bonilla MD Work Phone: [facility] 04-15-2024 08:07-0400 Heart rate 106 /min Rangel Bonilla MD Work Phone: [facility] 04-15-2024 08:07-0400 Respiratory rate 18 /min Rangel Bonilla MD Work Phone: [facility] 04-15-2024 08:07-0400 SaO2% (BldA) [Mass fraction] 97 % Rangel Bonilla MD Work Phone: [facility] 03-31-2024 08:07-0400 Body mass index (BMI) [Ratio] 25.16 kg/m2 Jean Pierre Moomaw [employer] Work Phone: [facility] 03-31-2024 08:07-0400 Body temperature 100.8 [degF] Jean Pierre Moomaw [employer] Work Phone: [facility] 03-31-2024 08:07-0400 Body weight 61.9 kg Jean Pierre Moomaw [employer] Work Phone: [facility] 03-31-2024 08:07-0400 Diastolic blood pressure 101 mm[Hg] Jean Pierre Moomaw [employer] Work Phone: [facility] 03-31-2024 08:07-0400 Heart rate 68 /min Jean Pierre Moomaw [employer] Work Phone: [facility] 03-31-2024 08:07-0400 Respiratory rate 18 /min Jean Pierre Moomaw [employer] Work Phone: [facility] 03-31-2024 08:07-0400 SaO2% (BldA) [Mass fraction] 92 % Jean Pierre Garcia [employer] Work Phone: [facility] 03-31-2024 08:07-0400 Systolic blood pressure 160 mm[Hg] Jean Pierre Garcia [employer] Work Phone: [facility] 01-24-2024 16:50-0400 Body height 156.8 cm Rangel Bonilla MD Work Phone: [facility] 01-24-2024 16:50-0400 Body weight 63.5 kg Rangel Bonilla MD Work Phone: [facility] 01-24-2024 16:50-0400 Diastolic blood pressure 77 mm[Hg] Rangel Bonilla MD Work Phone: [facility] 01-24-2024 16:50-0400 Heart rate 72 /min Rangel Bonilla MD Work Phone: [facility] 01-24-2024 16:50-0400 Respiratory rate 16 /min Rangel Bonilla MD Work Phone: [facility] 01-24-2024 16:50-0400 Systolic blood pressure 133 mm[Hg] Rangel Bonilla MD Work Phone: [facility] 12-21-2023 07:54-0500 Diastolic blood pressure 114 mm[Hg] Ruby Athy PA-C Work Phone: [facility] 12-21-2023 07:54-0500 SaO2% (BldA) [Mass fraction] 97 % Ruby Athy PA-C Work Phone: [facility] 12-21-2023 07:54-0500 Systolic blood pressure 191 mm[Hg] Ruby Athy PA-C Work Phone: [facility] 12-21-2023 07:28-0500 Body temperature 97.7 [degF] Ruby Athy PA-C Work Phone: [facility] 12-21-2023 07:28-0500 Body weight 64.05 kg Ruby Athy PA-C Work Phone: [facility] 12-21-2023 07:28-0500 Heart rate 98 /min Rubyemily Danielmahesh PA-C Work Phone: [facility] 12-21-2023 07:28-0500 Respiratory rate 20 /min Ruby Danielmahesh PA-C Work Phone: [facility] 12-12-2023 16:07-0500 Body temperature 98.2 [degF] Anisa Praisler-Wood [employer] Work Phone: [facility] 12-12-2023 16:07-0500 Body weight 64.86 kg Anisa Praisler-Wood [employer] Work Phone: [facility] 12-12-2023 16:07-0500 Diastolic blood pressure 72 mm[Hg] Anisa Praisler-Wood [employer] Work Phone: [facility] 12-12-2023 16:07-0500 Heart rate 100 /min Anisa Praisler-Wood [employer] Work Phone: [facility] 12-12-2023 16:07-0500 Respiratory rate 16 /min Anisa Praisler-Wood [employer] Work Phone: [facility] 12-12-2023 16:07-0500 SaO2% (BldA) [Mass fraction] 97 % Anisa Praisler-Wood [employer] Work Phone: [facility] 12-12-2023 16:07-0500 Systolic blood pressure 118 mm[Hg] Anisa Praisler-Wood [employer] Work Phone: [facility] 11-08-2023 18:27-0500 Respiratory rate 16 /min [facility] 11-08-2023 15:59-0500 Body height 162.56 cm [facility] 11-08-2023 15:59-0500 Body mass index (BMI) [Ratio] 24.2 kg/m2 [facility] 11-08-2023 15:59-0500 Body temperature 97.2 [degF] [facility] 11-08-2023 15:59-0500 Body weight 63.95 kg [facility] 11-08-2023 15:59-0500 Diastolic blood pressure 81 mm[Hg] [facility] 11-08-2023 15:59-0500 Heart rate 103 /min [facility] 11-08-2023 15:59-0500 SaO2% (BldA) [Mass fraction] 98 % [facility] 11-08-2023 15:59-0500 Systolic blood pressure 167 mm[Hg] [facility] 09-12-2023 15:56-0500 Body temperature 98.49 [degF] Helena Vazquez APRN.[employer] Work Phone: [facility] 09-12-2023 15:56-0500 Body weight 63.41 kg Helena Vazquez APRN.[employer] Work Phone: [facility] 09-12-2023 15:56-0500 Diastolic blood pressure 84 mm[Hg] Helena Vazquez APRN.[employer] Work Phone: [facility] 09-12-2023 15:56-0500 Heart rate 91 /min Helena Vazquez APRN.[employer] Work Phone: [facility] 09-12-2023 15:56-0500 Respiratory rate 18 /min Helena Vazquez APRN.[employer] Work Phone: [facility] 09-12-2023 15:56-0500 SaO2% (BldA) [Mass fraction] 98 % Helena Vazquez APRN.[employer] Work Phone: [facility] 09-12-2023 15:56-0500 Systolic blood pressure 148 mm[Hg] Helena Vazquez APRN.[employer] Work Phone: [facility] 08-09-2023 07:53-0400 Body temperature 99.61 [degF] Jessica Badillo [employer] Work Phone: [facility] 08-09-2023 07:53-0400 Body weight 63.05 kg Jessica Badillo [employer] Work Phone: [facility] 08-09-2023 07:53-0400 Diastolic blood pressure 95 mm[Hg] Jessica Heidy [employer] Work Phone: [facility] 08-09-2023 07:53-0400 Heart rate 126 /min Jessica Heidy [employer] Work Phone: [facility] 08-09-2023 07:53-0400 Respiratory rate 18 /min Jessica Heidy [employer] Work Phone: [facility] 08-09-2023 07:53-0400 SaO2% (BldA) [Mass fraction] 96 % Jessica Heidy [employer] Work Phone: [facility] 08-09-2023 07:53-0400 Systolic blood pressure 143 mm[Hg] Jessica Heidy [employer] Work Phone: [facility] 07-19-2023 16:54-0400 Diastolic blood pressure 78 mm[Hg] Rangel Bonilla MD Work Phone: [facility] 07-19-2023 16:54-0400 Systolic blood pressure 128 mm[Hg] Rangel Bonilla MD Work Phone: [facility] 07-19-2023 16:47-0400 Body weight 63.05 kg Rangel Bonilla MD Work Phone: [facility] 07-19-2023 16:47-0400 Heart rate 92 /min Rangel Bonilla MD Work Phone: [facility] 07-19-2023 16:47-0400 Respiratory rate 16 /min Rangel Bonilla MD Work Phone: [facility] 05-25-2023 14:36-0400 Body temperature 99.1 [degF] Helena Vazquez APRN.[employer] Work Phone: [facility] 05-25-2023 14:36-0400 Diastolic blood pressure 94 mm[Hg] Helena Vazquez [employer] Work Phone: [facility] 05-25-2023 14:36-0400 Heart rate 118 /min Helena Vazquez LUZ.[employer] Work Phone: [facility] 05-25-2023 14:36-0400 Respiratory rate 18 /min Helena Vazquez [employer] Work Phone: [facility] 05-25-2023 14:36-0400 SaO2% (BldA) [Mass fraction] 96 % Helena Vazquez LUZ.[employer] Work Phone: [facility] 05-25-2023 14:36-0400 Systolic blood pressure 158 mm[Hg] Helena Vazquez LUZ.[employer] Work Phone: [facility] 05-16-2023 15:00-0400 Body temperature 98.2 [degF] [facility] 05-16-2023 14:06-0400 Body height 162.56 cm [facility] 05-16-2023 14:06-0400 Body mass index (BMI) [Ratio] 24.2 kg/m2 [facility] 05-16-2023 14:06-0400 Body weight 63.95 kg [facility] 05-16-2023 14:06-0400 Diastolic blood pressure 108 mm[Hg] [facility] 05-16-2023 14:06-0400 Heart rate 102 /min [facility] 05-16-2023 14:06-0400 Respiratory rate 18 /min [facility] 05-16-2023 14:06-0400 SaO2% (BldA) [Mass fraction] 98 % [facility] 05-16-2023 14:06-0400 Systolic blood pressure 151 mm[Hg] [facility] 05-12-2023 19:57-0400 Body height 162.56 cm [facility] 05-12-2023 19:57-0400 Body mass index (BMI) [Ratio] 24.7 kg/m2 [facility] 05-12-2023 19:57-0400 Body temperature 97.5 [degF] [facility] 05-12-2023 19:57-0400 Body weight 65.49 kg [facility] 05-12-2023 19:57-0400 Diastolic blood pressure 98 mm[Hg] [facility] 05-12-2023 19:57-0400 Heart rate 100 /min [facility] 05-12-2023 19:57-0400 Respiratory rate 18 /min [facility] 05-12-2023 19:57-0400 SaO2% (BldA) [Mass fraction] 95 % [facility] 05-12-2023 19:57-0400 Systolic blood pressure 170 mm[Hg] [facility] 01-16-2023 07:56-0400 Body height 158.1 cm Rangel Bonilla MD Work Phone: [facility] 01-16-2023 07:56-0400 Body weight 64.86 kg Rangel Bonilla MD Work Phone: [facility] 01-16-2023 07:56-0400 Diastolic blood pressure 78 mm[Hg] Rangel Bonilla MD Work Phone: [facility] 01-16-2023 07:56-0400 Heart rate 60 /min Rangel Bonilla MD Work Phone: [facility] 01-16-2023 07:56-0400 Respiratory rate 14 /min Rangel Bonilla MD Work Phone: [facility] 01-16-2023 07:56-0400 Systolic blood pressure 133 mm[Hg] Rangel Bonilla MD Work Phone: [facility] 07-12-2022 11:09-0400 Body height 160.02 cm Referring Provider Unknown QT[place] [id number] [facility] Work Phone: 07-12-2022 11:09-0400 Body mass index (BMI) [Ratio] 24.62 kg/m2 Referring Provider Unknown [facility] [address] [facility] Work Phone: 07-12-2022 11:09-0400 Body surface area Derived from formula 1.66 m2 Referring Provider Unknown [facility] [address] [facility] Work Phone: 07-12-2022 11:09-0400 Body temperature 97.3 [degF] Referring Provider Unknown ML-Nqipbtzsckas-I [facility] [address] [facility] Work Phone: 07-12-2022 11:09-0400 Body weight 63.05 kg Referring Provider Unknown KA-Xxbeidxkjfcm-T [place] [id number] [facility] Work Phone: 07-12-2022 11:09-0400 Diastolic blood pressure 95 mm[Hg] Referring Provider Unknown IE-Tzudgyzkmrgy-J [facility] [address] [facility] Work Phone: 07-12-2022 11:09-0400 Heart rate 85 /min Referring Provider Unknown GF-Dovohvbybcvm-A [place] [id number] [facility] Work Phone: 07-12-2022 11:09-0400 Systolic blood pressure 192 mm[Hg] Referring Provider Unknown LI-Fqsmohxaqunz-K [address] Work Phone: 07-12-2022 11:09-0400 0 1 Referring Provider Unknown AJ-Pipqcowklzhm-G [address] Work Phone: Comment on above: [facility] 05-05-2022 07:51-0400 Body height 160.[address] Zane Granado Work Phone: [facility] Work Phone: 05-05-2022 07:51-0400 Body mass index (BMI) [Ratio] 24.6 kg/m2 Dr. Zane Granado Work Phone: [facility] Work Phone: 05-05-2022 07:51-0400 Body weight 63.[address] Zane Granado Work Phone: [facility] Work Phone: 05-05-2022 07:51-0400 Diastolic blood pressure 89 mm[Hg] Dr. Zane Granado Work Phone: [facility] Work Phone: 05-05-2022 07:51-0400 Heart rate 83 /min Dr. Zane Granado Work Phone: [facility] Work Phone: 05-05-2022 07:51-0400 SaO2% (BldA) [Mass fraction] 93 % Dr. Zane Granado Work Phone: [facility] Work Phone: 05-05-2022 07:51-0400 Systolic blood pressure 171 mm[Hg] Dr. Zane Granado Work Phone: [facility] Work Phone: 04-27-2022 08:41-0400 Diastolic blood pressure 83 mm[Hg] Rangel Bonilla MD Work Phone: [facility] 04-27-2022 08:41-0400 Systolic blood pressure 130 mm[Hg] Rangel Bonilla MD Work Phone: [facility] 04-27-2022 08:30-0400 Body weight 62.6 kg Rangel Bonilla MD Work Phone: [facility] 04-27-2022 08:30-0400 Heart rate 72 /min Rangel Bonilla MD Work Phone: [facility] 04-27-2022 08:30-0400 Respiratory rate 16 /min Rangel Bonilla MD Work Phone: [facility] 04-12-2022 14:30-0400 Body temperature 97.6 [degF] Dr. Zane Granado Work Phone: [facility] Work Phone: 04-12-2022 14:30-0400 Diastolic blood pressure 78 mm[Hg] Dr. Zane Granado Work Phone: [facility] Work Phone: 04-12-2022 14:30-0400 Heart rate 62 /min Dr. Zane Granado Work Phone: [facility] Work Phone: 04-12-2022 14:30-0400 Respiratory rate 16 /min Dr. Zane Granado Work Phone: [facility] Work Phone: 04-12-2022 14:30-0400 SaO2% (BldA) [Mass fraction] 97 % Dr. Zane Granado Work Phone: [facility] Work Phone: 04-12-2022 14:30-0400 Systolic blood pressure 151 mm[Hg] Dr. Zane Granado Work Phone: [facility] Work Phone: 04-12-2022 13:12-0400 Body height 160.[address] Zane Granado Work Phone: [facility] Work Phone: 04-12-2022 13:12-0400 Body mass index (BMI) [Ratio] 24.7 kg/m2 Dr. Zane Granado Work Phone: [facility] Work Phone: 04-12-2022 13:12-0400 Body weight 63.[address] Zane Granado Work Phone: [facility] Work Phone: Encounters Encounter Date Encounter Type Care Provider Facility Start: 2025 End: 2025 ambulatory Rangel Bonilla Facility:[facility] Start: 09-05-2025 End: 09-05-2025 ambulatory Rangel Bonilla Facility:[facility] Start: 09-03-2025 ambulatory Mala Coello Facility: [facility] Start: 09-01-2025 End: 09-01-2025 ambulatory Rangel Bonilla Facility:[facility] Start: 08-29-2025 End: 08-29-2025 ambulatory RANGEL BONILLA Facility:[facility] Start: 08-22-2025 End: 08-22-[address] Mala Coello MD -[facility] Work Phone: Start: 08-22-2025 End: 08-22-[address] Rangel Bonilla MD Work Phone: [facility] Start: 08-20-2025 End: 08-20-2025 ambulatory RANGEL GAYLE Facility:[facility] Start: 08-18-2025 End: 08-18-2025 Patient encounter procedure Zane Granado DO [facility] Work Phone: Start: 08-18-2025 End: 08-18-[address] Rangel Bonilla MD Work Phone: [facility] Start: 08-12-2025 End: 08-12-2025 ambulatory RANGEL BONILLA Facility:[facility] Start: 08-12-2025 End: 08-12-2025 ambulatory RANGEL BONILLA Facility:[facility] Start: 08-09-2025 End: 08-10-2025 ambulatory JESSICA HEIDY Facility:[facility] Start: 08-04-2025 End: 08-04-2025 ambulatory RANGEL BONILLA Facility:[facility] Start: 07-28-2025 End: 07-28-2025 Emergency department patient visit ED PHYSICIAN PROVIDER -Emergency Department Work Phone: Start: 07-28-2025 End: 07-28-2025 ambulatory HELENA VAZQUEZ Facility:[facility] Start: 07-24-2025 End: 07-24-2025 ambulatory RANGEL BONILLA Facility:[facility] Start: 07-22-2025 End: 07-22-2025 Telephone encounter Rayna Martinez PA-C Work Phone: [facility] Comment on above: Patient Update; Appo intment Patient Update Start: 07-22-2025 End: 07-22-2025 Emergency department patient visit Dr. Dominic Diaz DO -Emergency Department Work Phone: Start: 07-14-2025 End: 07-14-2025 Telephone encounter Agustin Shepard [facility] Comment on above: Anticoagulation Tele phone Fu (Home INR Result ) Start: 07-10-2025 End: 07-11-2025 Follow-up encounter Rangel Bonilla MD Work Phone: [facility] Start: 07-10-2025 ambulatory RANGEL Heredia ty:[facility] Start: 07-10-2025 End: 07-10-2025 Subsequent hospital visit by physician Loli [facility] [place] Work Phone: Radiology Comment on above: Abnormal lung sounds [R09.89] Start: 07-10-2025 End: 07-10-2025 Patient encounter procedure Rangel Bonilla MD Work Phone: [facility] Comment on above: Bacterial pneumonia (Primary Dx); Abnormal lung sounds; URI, acute Start: 07-10-2025 End: 07-10-2025 ambulatory RANGEL BONILLA Facility:[facility] Start: 07-09-2025 End: 07-11-2025 Follow-up encounter Lorri Clark DO Work Phone: Hematology/Oncology Comment on above: Results Start: 07-09-2025 ambulatory RANGEL Heredia ty:[facility] Start: 07-09-2025 End: 07-09-2025 Subsequent hospital visit by physician [facility] Work Phone: Radiology Comment on above: Abnormal mammogram o f both breasts [R92.8] Start: 07-09-2025 ambulatory RANGEL Heredia ty:[facility] Start: 07-09-2025 End: 07-09-2025 Subsequent hospital visit by physician Diagnostic Mammo [facility] Start: 07-08-2025 End: 07-08-2025 Telephone encounter [facility] Comment on above: Anticoagulation Tele phone Fu Start: 07-08-2025 End: 07-08-2025 Patient encounter procedure Ludmila Alberts APRN.CNP Work Phone: [facility] Comment on above: Viral upper respirat ory infection (Primary Dx) Start: 07-08-2025 End: 07-08-2025 ambulatory LUDMILA ALBERTS Facility:[facility] Start: 07-01-2025 End: 07-01-2025 Telephone encounter Sharmila Weiss RPh Pharm[facility] Ambulatory Telemanagement Comment on above: Anticoagulation Tele phone Fu (INR result) Start: 06-24-2025 End: 06-24-2025 ambulatory Alyssa Benz MA [facility] [place] Start: 06-24-2025 End: 06-24-2025 Patient encounter [facility] [place] Comment on above: Population Health Na vigation Outreach ([place]/[facility] ) Start: 06-17-2025 End: 06-17-2025 Telephone encounter Agustin Shepard [facility] Comment on above: Anticoagulation Tele phone Fu (Home INR Result ) Start: 06-16-2025 End: 06-16-2025 Telephone encounter [facility] Comment on above: Patient Question Start: 06-06-2025 End: 06-06-[address] Mala Coello MD -[facility] Work Phone: Start: 06-06-2025 End: 06-06-[address] Rangel Bonilla MD Work Phone: -[facility] Start: 06-05-2025 End: 06-05-2025 Telephone encounter [facility] Comment on above: Patient Update Start: 06-03-2025 End: 06-03-2025 Telephone encounter Sharmila Weiss [facility] Comment on above: Anticoagulation Tele phone Fu (Home INR result) Patient Update Start: 06-03-2025 End: 06-03-2025 Patient encounter procedure Dave MOROCHO Work Phone: [facility] Comment on above: Vaginal itching (Juany elda Dx) Start: 06-03-2025 End: 06-03-2025 ambulatory DAVE NÚÑEZ Facility:[facility] Start: 06-02-2025 End: 06-02-2025 Telephone encounter Rangel Bonilla MD Work Phone: [facility] [place] Comment on above: Patient Update Start: 05-28-2025 End: 05-28-2025 Telephone encounter [facility] Comment on above: Anticoagulation Start: 05-28-2025 End: 05-28-2025 Patient encounter procedure Christianaalma Rodriguez [employer] Work Phone: [facility] [place] Comment on above: Vaginal discomfort ( Primary Dx); Recurrent urinary tract infection Start: 05-28-2025 End: 05-28-2025 ambulatory RANGEL BONILLA Facility:[facility] Start: 05-27-2025 End: 05-27-2025 Telephone encounter Rangel Bonilla MD Work Phone: [facility] [place] Comment on above: referral request Start: 05-20-2025 End: 05-20-2025 Telephone encounter Sharmila Weiss [facility] Comment on above: Anticoagulation Tele phone Fu (Home INR result) Start: 05-16-2025 End: 05-17-2025 Follow-up encounter Katelin Jameson [employer] Work Phone: [facility] Start: 05-14-2025 End: 05-14-2025 Office outpatient visit 25 minutes Rangel Gayle APRN.[employer] Work Phone: [facility] Comment on above: Urinary frequency (P rimary Dx) Start: 05-14-2025 End: 05-14-2025 ambulatory RANGEL GAYLE Facility:[facility] Start: 05-06-2025 End: 05-06-2025 Telephone encounter Sharmila Weiss [facility] Comment on above: Anticoagulation Tele phone Fu (Home INR result) Start: 05-06-2025 Non-patient / Non-visit Dr. Suhail Coello MD -[facility] Work Phone: Start: 04-24-2025 End: 04-24-2025 Telephone encounter Anita Salazar [facility] Comment on above: Anticoagulation Tele phone Fu (Lab INR) Anticoagulation Tele phone Fu (Home INR) Start: 04-24-2025 End: 04-24-2025 ambulatory RANGEL BONILLA Facility:[facility] Start: 04-23-2025 End: 04-23-2025 Chart abstracting Rangel Bonilla MD Work Phone: [facility] Comment on above: Outside ENT Start: 04-21-2025 End: 04-21-2025 Telephone encounter Rangel Bonilla MD Work Phone: [facility] Comment on above: Patient Question Start: 04-13-2025 End: 04-13-2025 Emergency department patient visit Dr. Rangel Bonilla MD Work Phone: -Emergency Department Work Phone: Start: 04-10-2025 End: 04-10-2025 Telephone encounter Rangel Bonilla MD Work Phone: [facility] [place] Comment on above: Anticoagulation Start: 04-10-2025 End: 04-10-2025 ambulatory RANGEL MORALESEY Facility:[facility] Start: 04-03-2025 End: 04-03-2025 Telephone encounter Rangel Bonilla MD Work Phone: [facility] Comment on above: Patient Question; Pa tient Update Start: 04-03-2025 End: 04-03-2025 ambulatory RANGEL Emily BONILLA Facility:[facility] Start: 03-24-2025 End: 03-24-2025 Telephone encounter Rangel Bonilla MD Work Phone: [facility] Comment on above: Anticoagulation Start: 03-24-2025 End: 03-24-2025 ambulatory RANGEL BONILLA Facility:[facility] Start: 03-21-2025 End: 03-21-2025 Orders Only Rangel Bonilla MD Work Phone: [facility] Comment on above: care home (current) use of anticoagulants (Primary Dx) Anticoagulation - In itial Consult Start: 03-17-2025 End: 03-17-2025 Patient encounter procedure Helena Vazquez [employer] Work Phone: [facility] Comment on above: Herpes zoster withou t complication (Primary Dx) Start: 03-17-2025 End: 03-17-2025 ambulatory HELENA VAZQUEZ Facility:[facility] Start: 03-17-2025 End: 04-15-2025 Office outpatient visit 5 minutes Rangel Bonilla MD Work Phone: [facility] [place] Comment on above: Medication Problem ( with Xarelto-requesting Coumadin/); Anticoagulation Start: 03-17-2025 End: 03-17-2025 Telephone encounter Helena Vazquez APRN.[employer] Work Phone: [facility] Comment on above: Patient Update Start: 02-26-2025 End: 02-26-2025 ambulatory RANGEL Emily TOM Facility:[facility] Start: 02-26-2025 Patient encounter procedure RANGEL BONILLA [facility] Start: 02-14-2025 End: 03-11-2025 Follow-up encounter Viji Horvath LPN [facility] Comment on above: Anticoagulation Start: 02-14-2025 End: 02-14-2025 ambulatory RANGEL Emily TOM Facility:[facility] Start: 01-31-2025 End: 01-31-2025 ambulatory RANGEL Diaz [facility] Facility:[facility] Start: 01-31-2025 End: 01-31-2025 Patient encounter procedure Cabrera Landeros MD Work Phone: Pulmonary Medicine Comment on above: History of pulmonary embolism (Primary Dx); History of respiratory failure Start: 01-17-2025 End: 01-17-2025 Telephone encounter Rangel Bonilla MD Work Phone: [facility] Comment on above: Medication Request Start: 01-16-2025 End: 01-16-2025 Follow-up encounter Katelin Jameson APRN.[employer] Work Phone: [facility] Start: 01-16-2025 End: 01-16-2025 ambulatory RANGEL BONILLA Facility:[facility] Start: 01-15-2025 End: 01-15-2025 Follow-up encounter Katelin Jameson APRN.[employer] Work Phone: [facility] Comment on above: COVID-19 (Primary Dx ) Start: 01-15-2025 End: 01-15-2025 ambulatory Lorri Clark DO Work Phone: Hematology/Oncology Comment on above: Chronic pulmonary em bolism without acute cor pulmonale, unspecified pulmonary embolism type (HCC) (Primary Dx); History of pulmonary embolus (PE); Respiratory infection Start: 01-15-2025 End: 01-15-2025 Patient encounter procedure Lorri Clark DO Work Phone: Hematology/Oncology Comment on above: Exposure to influenz a (Primary Dx); URI, acute Start: 01-14-2025 End: 01-14-2025 Office outpatient visit 10 minutes Alan Vigil APRN.CNP Work Phone: [facility] [place] Comment on above: Laceration of right upper extremity, subsequent encounter (Primary Dx) Start: 01-14-2025 End: 01-14-2025 ambulatory RANGEL BONILLA Facility:[facility] Start: 01-02-2025 End: 01-14-2025 Telephone encounter Lorri Clark DO Work Phone: [place] [facility] Comment on above: Results Start: 01-01-2025 End: 01-01-2025 ambulatory RANGEL BONILLA Facility:[facility] Start: 01-01-2025 End: 01-01-2025 Subsequent hospital visit by physician [facility] Work Phone: Radiology Comment on above: Abnormal mammogram o f both breasts [R92.8] Start: 12-05-2024 End: 12-06-2024 Telephone encounter Rangel Bonilla MD Work Phone: [facility] Comment on above: Patient Update Start: 11-08-2024 End: 11-08-2024 ambulatory Rangel Bonilla Facility:[facility] Start: 10-23-2024 End: 10-23-2024 Telephone encounter Moises Ryan MD Work Phone: Mammography Comment on above: Mammogram Result Macho l Back Start: 10-09-2024 End: 10-09-2024 Telephone encounter Madison Vazquez MA [facility] Comment on above: Anticoagulation Start: 10-09-2024 End: 10-09-2024 ambulatory RANGEL BONILLA Facility:[facility] Start: 09-30-2024 End: 09-30-2024 Telephone encounter Madison Vazquez MA [facility] Comment on above: Anticoagulation Patient Question Start: 09-30-2024 End: 09-30-2024 ambulatory RANGEL BONILLA Facility:[facility] Start: 2024 End: 2024 Telephone encounter Madison Vazquez MA [facility] Comment on above: Anticoagulation Start: 09-09-2024 End: 09-09-2024 Telephone encounter Madison Artem ACOSTA [facility] Comment on above: Anticoagulation Start: 09-02-2024 End: 09-02-2024 Telephone encounter Rangel Bonilla MD Work Phone: [facility] Comment on above: Anticoagulation Start: 08-29-2024 End: 08-29-2024 Telephone encounter Rangel Bonilla MD Work Phone: [facility] Comment on above: Anticoagulation Start: 08-27-2024 End: 08-27-2024 Telephone encounter Rangel Bonilla MD Work Phone: [facility] Comment on above: medication/INR quest ion Anticoagulation Start: 08-21-2024 End: 08-21-2024 Patient encounter procedure Rangel Bonilla MD Work Phone: [facility] [place] Comment on above: Essential hypertensi on (Primary Dx); Elevated fasting blood sugar; GERD without esophagitis; Migraine without aura and without status migrainosus, not intractable; Mixed hyperlipidemia; History of pulmonary embolus (PE); Medication management Start: 08-19-2024 End: 08-19-2024 Telephone encounter Madison Artem ACOSTA [facility] Comment on above: Anticoagulation Start: 08-12-2024 End: 08-12-2024 Refill Rangel Bonilla MD Work Phone: [facility] [place] [facility] Comment on above: Refill Request Anticoagulation Start: 08-08-2024 End: 08-08-2024 Telephone encounter Rangel Bonilla MD Work Phone: [facility] Comment on above: Anticoagulation Start: 08-07-2024 End: 08-07-2024 Telephone encounter Rayna Martinez PA-C Work Phone: [facility] Comment on above: Medication Question Start: 08-05-2024 End: 08-05-2024 Telephone encounter Rangel Bonilla MD Work Phone: [facility] [place] Comment on above: Anticoagulation Start: 08-02-2024 End: 08-02-2024 Telephone encounter Rangel Bonilla MD Work Phone: [facility] [place] Comment on above: Anticoagulation Start: 07-31-2024 End: 07-31-2024 Telephone encounter Rangel Bonilla MD Work Phone: [facility] [place] Comment on above: Medication Question; Anticoagulation Start: 07-30-2024 End: 07-30-2024 Telephone encounter Rangel Bonilla MD Work Phone: [facility] [place] Comment on above: Anticoagulation Start: 07-25-2024 End: 07-25-2024 Telephone encounter Rangel Bonilla MD Work Phone: [facility] [place] Comment on above: Anticoagulation Start: 07-22-2024 End: 07-22-2024 Patient encounter procedure Cabrera Landeros MD Work Phone: Pulmonary Medicine Comment on above: Multiple subsegmenta l pulmonary emboli without acute cor pulmonale (HCC) (Primary Dx); Chronic anticoagulation; Hypoxemia Start: 07-18-2024 End: 07-18-2024 Patient encounter procedure Rangel Bonilla MD Work Phone: [facility] [place] Comment on above: History of pulmonary embolus (PE) (Primary Dx) Start: 07-16-2024 End: 07-16-2024 ambulatory Rangel Bonilla MD Work Phone: [facility] Comment on above: Nausea Start: 07-16-2024 End: 07-16-2024 Telephone encounter Cabrera Landeros MD Work Phone: Pulmonary Medicine Comment on above: Medication Problem ( Wants to dc eliquis) Start: 07-12-2024 End: 07-12-2024 Chart abstracting Madison Vazquez MA [facility] Comment on above: Consult Start: 06-28-2024 End: 06-28-2024 Refill Rangel Bonilla MD Work Phone: [facility] [place] Comment on above: Refill Request Start: 06-24-2024 End: 06-24-2024 Chart abstracting Rangel Bonilla MD Work Phone: [facility] Comment on above: Outside Imaging Start: 06-11-2024 Telephone encounter Lorri banks DO Work Phone: Hematology/Oncology Comment on above: Results Start: 06-11-2024 End: 06-11-2024 Subsequent hospital visit by physician Diagnostic Mammo [facility] Comment on above: Abnormal mammogram o f both breasts [R92.8] Start: 06-10-2024 Chart abstracting Madison Forbes [facility] Comment on above: Consult (Dr. Gabriele kumar /) Start: 06-10-2024 Telephone encounter Lorri banks DO Work Phone: Mammogram Comment on above: Orders Start: 06-07-2024 Documentation procedure Mammog sammy Coordinator [facility] Department Start: 06-07-2024 Letter encounter Mammography Coordinator [facility] Department Start: 06-06-2024 End: 06-06-2024 Subsequent hospital visit by physician Screen Mammo [facility] Comment on above: Encounter for screen ing mammogram for breast cancer [Z12.31] Start: 05-30-2024 Telephone encounter Lorri banks DO Work Phone: Hematology/Oncology Comment on above: Follow Up Start: 05-23-2024 Telephone encounter Ryana sparrow PA-C Work Phone: [facility] Comment on above: Results Start: 05-22-2024 Telephone encounter Lorri banks DO Work Phone: Hematology/Oncology Comment on above: Results Start: 05-21-2024 End: 05-21-2024 ambulatory Lorri Clark DO Work Phone: Hematology/Oncology Comment on above: Chronic pulmonary em bolism without acute cor pulmonale, unspecified pulmonary embolism type (HCC) (Primary Dx); History of pulmonary embolus (PE); Encounter for screening mammogram for breast cancer Start: 05-21-2024 End: 05-21-2024 Patient encounter procedure Lorri Clark DO Work Phone: Hematology/Oncology Start: 05-21-2024 Telephone encounter Lorri Emily Kenrick banks DO Work Phone: Hematology/Oncology Comment on above: Follow Up Start: 05-08-2024 Chart abstracting Rangel varma MD Work Phone: [facility] Comment on above: Outside Zxae-Agt-PRV Ordered Start: 05-08-2024 End: 05-08-2024 Patient encounter procedure Kalpana Arndt MD Work Phone: OB/Gynecology Comment on above: Chronic vaginitis (P rimary Dx) Start: 05-07-2024 ambulatory Lupe ellis RN Work Phone: [employer] Start: 05-07-2024 Telephone follow-up Lupe Mckinnon RN Work Phone: [employer] Comment on above: Transition Of Care ( [facility], Follow-up Day 28) Started Weekly phone contact (Recurring) for Transitional Care Management Start: 05-06-2024 Telephone encounter Susi Murrell MD Work Phone: OB/Gynecology Comment on above: Pain Start: 05-04-2024 ambulatory Cabrera Landeros MD Work Phone: Pulmonary Medicine Comment on above: Oxygen levels Start: 05-01-2024 Refill Rangel luna MD Work Phone: [facility] Comment on above: Refill Request Spirometry Start: 04-30-2024 End: 04-30-2024 ambulatory Pulm Lab [facility] Work Phone: PULM LAB [facility] Comment on above: Spirometry Start: 04-30-2024 End: 04-30-2024 Patient encounter procedure Pulm Lab [facility] Work Phone: PULM LAB [facility] Start: 04-28-2024 ambulatory Lupe ellis RN Work Phone: [employer] Start: 04-28-2024 Telephone follow-up Lupe Mckinnon RN Work Phone: [employer] Comment on above: Transition Of Care ( [facility] Follow-up Day 19) Started Weekly phone contact (Recurring) for Transitional Care Management Start: 04-25-2024 ambulatory Cabrera Landeros MD Work Phone: Pulmonary Medicine Comment on above: Small tank with cons erver device Start: 04-23-2024 ambulatory Lupe ellis RN Work Phone: [employer] Start: 04-23-2024 Telephone follow-up Lupe Mckinnon RN Work Phone: [employer] Comment on above: Transition Of Care ( [facility] Follow-up Day 14) Started Weekly phone contact (Recurring) for Transitional Care Management Start: 04-22-2024 Telephone encounter Rayna sparrow PA-C Work Phone: [facility] [place] Comment on above: Results Start: 04-19-2024 Telephone encounter Rangel Bonilla MD Work Phone: Family [facility] Comment on above: Patient Question Start: 04-19-2024 End: 04-19-2024 Office outpatient visit 25 minutes Rayna Martinez PA-C Work Phone: Family [facility] Comment on above: Dysuria (Primary Dx) ; Frequent UTI Start: 04-19-2024 End: 04-19-2024 Office outpatient visit 40 minutes Cabrera Landeros MD Work Phone: Pulmonary Medicine Comment on above: Multiple subsegmenta l pulmonary emboli without acute cor pulmonale (HCC) (Primary Dx); Acute hypoxemic respiratory failure (HCC); Chronic throat clearing Start: 04-17-2024 ambulatory Lupe ellis RN Work Phone: [employer] Start: 04-17-2024 Telephone follow-up Lupe Mckinnon RN Work Phone: [employer] Comment on above: Transition Of Care ( [facility] Follow-up Day 8) Started Weekly phone contact (Recurring) for Transitional Care Management Start: 04-16-2024 Telephone encounter Rangel Bonilla MD Work Phone: [facility] Comment on above: Results Start: 04-15-2024 Telephone encounter Rangel Bonilla MD Work Phone: [address] [place] [address] Comment on above: Appointment Start: 04-15-2024 End: 04-15-2024 Patient encounter procedure Rangel Bonilla MD Work Phone: [facility] Comment on above: Hypoxia (Primary Dx) ; History of pulmonary embolus (PE); Essential hypertension; Acute cystitis without hematuria Start: 04-10-2024 Patient Outreach Lupe brown RN Work Phone: [employer] Comment on above: Transition Of Care ( [facility] Discharge 04/09/24) Initial phone contact for Transitional Care Management, Started Weekly phone contact (Recurring) for Transitional Care Management Started Weekly phone contact (Recurring) for Transitional Care Management Start: 04-08-2024 Telephone encounter Rangel Bonilla MD Work Phone: [facility] Comment on above: patient update/cance llation of apt Start: 04-02-2024 Telephone encounter Rangel Bonilla MD Work Phone: [facility] Comment on above: Results Start: 03-31-2024 End: 03-31-2024 Patient encounter procedure Jean Pierre Garcia MIKE Work Phone: [facility] Comment on above: Acute cough (Primary Dx); Irregular heart beat Start: 03-25-2024 Chart abstracting Rangel varma MD Work Phone: [facility] Comment on above: Outside ED Start: 01-24-2024 End: 01-24-2024 Patient encounter procedure Rangel Bonilla MD Work Phone: [facility] Comment on above: Medicare annual well ness visit, subsequent (Primary Dx); Essential hypertension; Mixed hyperlipidemia; Elevated fasting blood sugar; GERD without esophagitis; Migraine without aura and without status migrainosus, not intractable; Seasonal allergies; Pulmonary nodules; Advance directive discussed with patient; Colon cancer screening Start: 12-21-2023 Telephone encounter Ruby R Ath y PA-C Work Phone: [facility] Comment on above: Results Start: 12-21-2023 End: 12-21-2023 Subsequent hospital visit by physician Xr [facility] Work Phone: Radiology Comment on above: Acute cough [R05.1] Start: 12-21-2023 End: 12-21-2023 Patient encounter procedure Ruby Garza PA-C Work Phone: [facility] Comment on above: Acute cough (Primary Dx) Start: 12-12-2023 End: 12-12-2023 Patient encounter procedure Anisa Mitchell APRN.[employer] Work Phone: [facility] Comment on above: Acute cough (Primary Dx); Post-nasal drainage Start: 11-08-2023 End: 11-08-2023 Emergency department patient visit [facility] Work Phone: Start: 11-08-2023 End: 11-08-2023 ambulatory [facility] Work Phone: Start: 11-08-2023 End: 11-08-2023 Patient encounter procedure [facility]Laboratory Work Phone: Start: 09-12-2023 End: 09-12-2023 Patient encounter procedure Helena Vazquez APRN.[employer] Work Phone: [facility] Comment on above: Rhinosinusitis (Prim ann Dx) Start: 09-12-2023 Telephone encounter Rangel Bonilla MD Work Phone: [facility] [place] [facility] Comment on above: Patient Update Start: 08-10-2023 ambulatory Ruby Garza PA -C Work Phone: [facility] Comment on above: oral covid medicatio n Start: 08-10-2023 E-mail encounter fro m caregiver Ruby MOROCHO-C Work Phone: [facility] Start: 08-10-2023 Telephone encounter Ruby aragon PA-C Work Phone: [facility] Comment on above: Results Start: 08-09-2023 End: 08-09-2023 Patient encounter procedure Jessica Badillo LUZ.[employer] Work Phone: [facility] Comment on above: URI with cough and c ongestion (Primary Dx) Start: 07-19-2023 End: 07-19-2023 Patient encounter procedure Rangel Bonilla MD Work Phone: [facility] Comment on above: Essential hypertensi on (Primary Dx); Mixed hyperlipidemia; Elevated fasting blood sugar; GERD without esophagitis; Saravia's esophagus without dysplasia; Migraine without aura and without status migrainosus, not intractable; Chronic throat clearing; Medication management Start: 06-07-2023 Chart abstracting Rangel varma MD Work Phone: [facility] [place] [facility] Comment on above: Outside Urology Start: 05-25-2023 End: 05-25-2023 Patient encounter procedure Helena Artem ESCOBAR.[employer] Work Phone: [facility] Comment on above: Burning with urinati on (Primary Dx) Start: 05-25-2023 Telephone encounter Rangel Bonilla MD Work Phone: [facility] Comment on above: Patient Update Start: 05-16-2023 End: 05-16-2023 Emergency department patient visit [facility] Work Phone: Start: 05-16-2023 ambulatory Rangel luna MD Work Phone: [facility] Comment on above: Temp Start: 05-16-2023 Telephone encounter Rangel Bonilla MD Work Phone: [facility] Comment on above: Patient Update Start: 05-12-2023 End: 05-12-2023 Emergency department patient visit [facility] Work Phone: Start: 01-28-2023 Telephone encounter Rangel Bonilla MD Work Phone: [facility] Comment on above: Results Start: 01-24-2023 End: 01-24-2023 Subsequent hospital visit by physician [facility] (I-Stat) Work Phone: Cat Scan Comment on above: Pulmonary nodules [R 91.8] Start: 01-18-2023 Telephone encounter Rangel Bonilla MD Work Phone: [facility] Comment on above: Results Start: 01-16-2023 End: 01-16-2023 Patient encounter procedure Rangel Bonilla MD Work Phone: [facility] Comment on above: Medicare annual well ness visit, subsequent (Primary Dx); Encounter for immunization; Essential hypertension; Mixed hyperlipidemia; Elevated fasting blood sugar; GERD without esophagitis; Migraine without aura and without status migrainosus, not intractable; Seasonal allergies; Pulmonary nodules; Advance directive discussed with patient; Colon cancer screening; Lung nodules; Need for vaccination; Abnormal lung sounds Start: 01-09-2023 Telephone encounter Rangel Bonilla MD Work Phone: [facility] Comment on above: Lab Orders Start: 12-19-2022 AUDIT Referring Prov ider Unknown [id number] n Diogenes [facility] Work Phone: Start: 12-19-2022 End: 12-19-[address] Dutch Stevenson Facility:[facility] Start: 10-21-2022 Refill Rangel luna MD Work Phone: [facility] [place] Comment on above: Refill Request Start: 10-13-2022 AUDIT Referring Prov ider Unknown [id number] n Diogenes [facility] Work Phone: Start: 10-12-2022 AUDIT Referring Prov ider Unknown [id number] n Diogenes [facility] Work Phone: Start: 07-12-2022 Current tobacco non- user cad cap copd pv dm Referring Provider Unknown [facility] [address] Work Phone: Start: 05-11-2022 End: 05-11-[address] Zane Granado Work Phone: [facility]Radiology, [facility] Start: 05-05-2022 Chart abstracting Rangel varma MD Work Phone: [facility] Comment on above: outside gastro Start: 05-05-2022 End: 05-05-[address] Zane Granado Work Phone: [facility] Gastro[facility] Start: 05-05-2022 Non-patient / Non-visit Dr. Ra neto Granado Work Phone: [facility] Start: 04-27-2022 End: 04-27-2022 Patient encounter procedure Rangel Bonilla MD Work Phone: [facility] Comment on above: Essential hypertensi on (Primary Dx); Mixed hyperlipidemia; Migraine without aura and without status migrainosus, not intractable; GERD without esophagitis; Elevated fasting blood sugar; Seasonal allergies; Medication management Start: 04-12-2022 Non-patient / Non-visit Dr. Ra neto Granado Work Phone: [facility] Start: 04-12-2022 End: 04-12-2022 Admission to same day surgery center Dr. Zane Granado Work Phone: [facility]Endoscopy Start: 03-04-2022 End: 03-04-[address] Zane Granado Work Phone: [facility]Laboratory Start: 03-04-2022 End: 03-04-[address] Zane Granado Work Phone: [facility] Gastroenterology Start: 10-26-2021 Patient encounter procedure Rangel Bonilla MD Work Phone: [facility] Work Phone: Start: 04-09-2021 End: 04-09-2021 Subsequent hospital visit by physician [facility] Work Phone: Radiology Comment on above: Numbness and tinglin g [R20.0, R20.2] Start: 01-28-2021 End: 01-28-2021 Subsequent hospital visit by physician Loli [facility] Work Phone: Radiology Comment on above: Cough [R05] Start: 07-20-2016 Patient encounter status Ruiz Bonilla MD Work Phone: [facility] Work Phone: Procedures Date Procedure Procedure Detail Performing Clinician Start: 07-22-2025 Urnls dip stick/tablet reagent auto microscopy Dr. Rangel Bonilla MD Work Phone: Start: 07-22-2025 Radiologic exam chest [address] Isidro Bonilla MD Work Phone: Start: 07-22-[address] Ruiz Bonilla MD Work Phone: Start: 07-10-2025 Radiologic exam chest 2 views Rangel Bonilla MD Work Phone: Start: 07-10-2025 COVID & INFLUENZA A/B & RSV PCR, ROUTINE Rangel Bonilla MD Work Phone: Start: 07-09-2025 Us breast uni real time with image limited Lorri Diaz Amber DO Work Phone: Start: 07-09-2025 Digital breast tomosynthesis bilateral Lorri Stokesishmael DO Work Phone: Start: 05-28-2025 Urnls dip stick/tablet rgnt auto w/o microscopy Christiana Rodriguez [employer] Work Phone: Start: 05-14-2025 Urnls dip stick/tablet rgnt auto w/o microscopy Kobe Weaver [employer] Work Phone: Start: 04-13-2025 Urnls dip stick/tablet reagent auto microscopy Dr. Rangel Bonilla MD Work Phone: Start: 04-13-2025 CT of head without contrast Dr. Rangel Bonilla MD Work Phone: Start: 04-13-[address] Ruiz Bonilla MD Work Phone: Start: 02-26-2025 Adult depression screening assessment Viji Horvath LPN Start: 02-14-2025 Prothrombin time [facility] Provider Start: 01-15-2025 INFLUENZA A&B MOLECULAR (POC) Katelin Patrick grubbs [employer] Work Phone: Start: 01-01-2025 Us breast uni real time with image limited Lorri Diaz Mascishmael DO Work Phone: Start: 01-01-2025 Digital breast tomosynthesis unilateral Lorri Emily Masci DO Work Phone: Start: 06-11-2024 Us breast uni real time with image limited Lorri Clark DO Work Phone: Start: 06-11-2024 Digital breast tomosynthesis bilateral Lorri Emily Mascishmael DO Work Phone: Start: 04-30-2024 Nitric oxide gas determination Cabrera Landeros MD Work Phone: Start: 04-30-2024 Brncdilat rspse spmtry pre&post-brncdilat admn Cabrera Landeros MD Work Phone: Start: 04-19-2024 Urnls dip stick/tablet rgnt auto w/o microscopy Rayna Martinez PA-C Work Phone: Start: 04-15-2024 Urnls dip stick/tablet rgnt auto w/o microscopy Rangel Bonilla MD Work Phone: Start: 03-31-2024 Ecg routine ecg w/least 12 lds i&r only [facility] Provider Start: 12-21-2023 Radiologic exam chest 2 views Ruby R Ath y PABoC Work Phone: Start: 11-08-2023 Urine culture Start: 08-09-2023 COVID & INFLUENZA A/B & RSV NAAT, ROUTINE Jessica Badillo APRN.[employer] Work Phone: Start: 08-09-2023 Iadna respiratry probe & rev trnscr 3-5 targets Jessica Badillo [employer] Work Phone: Start: 10-04-2023 Sars-cov-2 detection by dna/rna Jessica keys [employer] Work Phone: Start: 05-25-2023 Urnls dip stick/tablet rgnt auto w/o microscopy Helena Vazquez [employer] Work Phone: Start: 05-12-2023 Urine culture Start: 01-24-2023 Ct thorax w/o contrast material Rangel Bonilla MD Work Phone: Start: 05-11-[address] Zane ugalde Work Phone: Start: 04-12-[address] Zane nayak Work Phone: Start: 04-09-2021 Radex spine cervical 4 or 5 views Tata Montgomery SHE[employer]EMAN.[facility] Work Phone: Start: 01-28-2021 Radiologic exam chest 2 views Rangel Bonilla MD Work Phone: Hysterectomy Referring Provi jack Unknown Operation on gallbladder Ref erring Provider Unknown Plan of Treatment Date Care Activity Detail Author Start: 09-09-2028 Urine microalbumin profile DTaP,Tdap,Td Vaccine (3 - Td or Tdap) [facility] Start: 02-15-2028 Diabetes Screening Diabetes Screenin g [facility] Start: 01-17-2028 Diabetes Screening Diabetes Screenin [facility] Start: 05-21-2027 Diabetes Screening Diabetes Screenin g [facility] Start: 01-16-2027 Diabetes Screening Diabetes Screenin g [facility] Start: 07-17-2026 Diabetes Screening Diabetes Screenin g [facility] Start: 02-26-2026 Depression Screening Depression Scre ening [facility] Start: 02-26-2026 Medicare Annual Well ness Visit Medicare Annual Wellness Visit [facility] Start: 01-09-2026 DIABETES SCREEN DIABETES SCREEN [facility] Start: 01-06-2026 End: 08-08-2026 MG Breast - left Diagnostic for implant [facility] LEFT Radiology Routine Abnormal mammogram Expected: 01/06/2026, Expires: 08/08/2026 [facility] Work Phone: Comment on above: Expected: 01/06/2026 , Expires: 08/08/2026 Start: 01-06-2026 End: 08-08-2026 US Breast - left limited US BREAST LTD LEFT Radiology Routine Abnormal mammogram Expected: 01/06/2026, Expires: 08/08/2026 [facility] Comment on above: Expected: 01/06/2026 , Expires: 08/08/2026 Start: 09-01-2025 End: 09-01-2025 Patient encounter procedure Departed Physician/Provider Office Visit [facility] Work Phone: Start: 08-29-2025 End: 08-29-2025 Patient encounter procedure 08/29/2025 7:00 AM EDT Office Visit [facility] [address] [facility], [place] [id number] Rangel Bonilla MD [address] [facility] [place], [place] [id number] 6 month follow up [facility] Comment on above: 6 month follow up Start: 08-22-2025 End: 08-22-2025 Patient encounter procedure Intermittent dysphagia -[facility] Work Phone: Start: 08-21-2025 Annual PCP Team Plastic Block Boiler Reliner mario Disease Visit Annual PCP Team Chronic Disease Visit [facility] Start: 08-21-2025 Anxiety Screening Anxiety Screening [facility] Comment on above: Postponed from 09/16 (Declined at this time) Start: 07-24-2025 End: 07-24-2025 Patient encounter procedure 07/24/2025 7:20 AM EDT Office Visit [facility] [address] [facility], [place] [id number] Rayna Martinez PA-C [address] [place], [place] [id number] [facility] ER f/u for lightheadedness and near syncope, recommend a Stress test. See TE 07/22/25. [facility] Comment on above: [facility] ER f/u for light headedness and near syncope, recommend a Stress test. See TE 07/22/25. Start: 07-22-2025 [facility] Start: 07-22-2025 [facility] Start: 07-18-2025 Annual PCP Team Plastic Block Boiler Reliner mario Disease Visit Annual PCP Team Chronic Disease Visit [facility] Start: 07-09-2025 End: 07-09-2025 Patient encounter procedure Mammogram Comment on above: 6 MO FOLLOW UP - Dx: Abnormal mammogram of both breasts [R92.8] 6 MO FOLLOW UP -Dx: Abnormal mammogram of both breasts [R92.8] Comp- 6 MO FOLLOW UP - Dx: Abnormal mammogram of both breasts [R92.8] Start: 07-07-2025 Influenza vaccination Influenza Vacc ine (#1) [facility] Start: 06-05-2025 End: 06-05-2025 Patient encounter procedure 06/05/2025 8:15 AM EDT Office Visit OB/Gynecology [address] [place] [address] Liam Archibald APRN.[employer] [address] [place] [address] Vaginal Burning OB/Gynecology Comment on above: Vaginal Burning Start: 05-28-2025 End: 05-28-2025 Patient encounter procedure 05/28/2025 8:20 AM EDT Office Visit [facility] [address] [place] [address] Christiana Rodriguez APRN.[employer] [address] [place] [address] vaginal discomfort see TE [facility] Comment on above: vaginal discomfort s ee TE Start: 04-24-2025 End: 04-24-2025 ambulatory 04/24/2025 9:15 AM EDT Results Only [facility] [place] [facility] [address] [place] [address] [place] [facility] Start: 04-20-2025 DIABETES SCREEN DIABETES SCREEN [facility] Start: 04-19-2025 Annual PCP Team Plastic Block Boiler Reliner mario Disease Visit Annual PCP Team Chronic Disease Visit [facility] Start: 04-15-2025 Annual PCP Team Plastic Block Boiler Reliner mario Disease Visit Annual PCP Team Chronic Disease Visit [facility] Start: 04-13-2025 [facility] Start: 04-10-2025 End: 04-10-2025 ambulatory 04/10/2025 8:30 AM EDT Results Only [place] [facility] [address] [place] [address] [facility] Start: 02-26-2025 End: 02-26-2025 Patient encounter procedure [facility] Comment on above: Medicare wellness Start: 02-15-2025 End: 05-17-2025 Fibrin D-dimer FEU [Mass/volume] in Platelet poor plasma D-DIMER Lab Routine History of pulmonary embolus (PE) Expected: 02/15/2025 (Approximate), Expires: 05/17/2025 [facility] Work Phone: Comment on above: Expected: 02/15/2025 (Approximate), Expires: 05/17/2025 Start: 02-14-2025 End: 02-14-2025 ambulatory [facility] Comment on above: labs Start: 02-07-2025 End: 05-09-2025 CBC W Auto Differential panel - Blood COMPLETE BLOOD COUNT AND DIFFERENTIAL Lab Routine Medication management Expected: 02/07/2025, Expires: 05/09/2025 [facility] Comment on above: Expected: 02/07/2025 , Expires: 05/09/2025 Start: 02-07-2025 End: 05-09-2025 Cobalamin (Vitamin B12) [Mass/volume] in Serum or Plasma VITAMIN B12 Lab Routine GERD without esophagitis Medication management Expected: 02/07/2025, Expires: 05/09/2025 [facility] Work Phone: Comment on above: Expected: 02/07/2025 , Expires: 05/09/2025 Start: 02-07-2025 End: 05-09-2025 Comprehensive metabolic 2000 panel - Serum or Plasma COMPREHENSIVE METABOLIC PANEL Lab Routine Essential hypertension Elevated fasting blood sugar Expected: 02/07/2025, Expires: 05/09/2025 [facility] Comment on above: Expected: 02/07/2025 , Expires: 05/09/2025 Start: 02-07-2025 End: 05-09-2025 Hemoglobin A1c in Blood HEMOGLOBIN A1C Lab Routine Elevated fasting blood sugar Expected: 02/07/2025, Expires: 05/09/2025 [facility] Comment on above: Expected: 02/07/2025 , Expires: 05/09/2025 Start: 02-07-2025 End: 05-09-2025 LIPID PANEL, NONFASTING LIPID PANEL, NONFASTING Lab Routine Essential hypertension Expected: 02/07/2025, Expires: 05/09/2025 [facility] Comment on above: Expected: 02/07/2025 , Expires: 05/09/2025 Start: 02-07-2025 End: 05-09-2025 Magnesium [Mass/volume] in Serum or Plasma MAGNESIUM Lab Routine GERD without esophagitis Medication management Expected: 02/07/2025, Expires: 05/09/2025 [facility] Comment on above: Expected: 02/07/2025 , Expires: 05/09/2025 Start: 02-07-2025 End: 05-09-2025 Urinalysis complete panel - Urine URINALYSIS, WITH MICROSCOPIC Lab Routine Essential hypertension Expected: 02/07/2025, Expires: 05/09/2025 [facility] Comment on above: Expected: 02/07/2025 , Expires: 05/09/2025 Start: 01-31-2025 End: 01-31-2025 Patient encounter procedure 01/31/2025 11:45 AM EDT Office Visit Pulmonary Medicine [address] [place] [id number] Cabrera Landeros MD [address] [place] [id number] 6 MTH F/U Pulmonary Medicine Comment on above: 6 MTH F/U Start: 01-23-2025 Annual PCP Team Plastic Block Boiler Reliner mario Disease Visit Annual PCP Team Chronic Disease Visit [facility] Start: 01-23-2025 BP Controlled (<130/80) BP Controlle d (<130/80) [facility] Start: 01-23-2025 Covid-19 Vaccine ( season) Covid-19 Vaccine () [facility] Comment on above: Postponed from 07/07 (Declined at this time) Start: 01-23-2025 RSV Vaccine (1 - 1-d ose 60+ series) RSV Vaccine (1 - 1-dose 60+ series) [facility] Comment on above: Postponed from 09/16 (Insurance Coverage) Start: 01-20-2025 End: 01-20-2025 Patient encounter procedure 01/20/2025 2:45 PM EDT Office Visit Pulmonary Medicine [address] [place] [address] Cabrera Landeros MD [address] [place], [place] [phone] 6 MTH F/U Pulmonary Medicine Comment on above: 6 MTH F/U Start: 01-15-2025 End: 04-16-2025 Basic metabolic 2000 panel - Serum or Plasma BASIC METABOLIC PANEL Lab STAT COVID-19 Expected: 01/15/2025, Expires: 04/16/2025 [facility] Work Phone: Comment on above: Expected: 01/15/2025 , Expires: 04/16/2025 Start: 01-15-2025 Covid-19 Vaccine ( season) Covid-19 Vaccine () [facility] Start: 01-15-2025 End: 01-15-2025 ambulatory 01/15/2025 8:30 AM EDT Visit (SP) Office Hematology/Oncology [address] [place], [place] [id number] Lorri Clark DO [address] [place], [place] [id number] 6 MO OV/DX&US 01/01* Hematology/Oncology Comment on above: 6 MO OV/DX&US 01/01* Start: 01-14-2025 End: 01-14-2025 Patient encounter procedure 01/14/2025 1:20 PM EDT Office Visit Family [facility] [address] [place], [place] [phone] Alan Vigil APRN.[employer] [address] [place], [place] [phone] follow up right arm-stuck in elevator door on cruise. Sutures removed on cruise. [facility] Comment on above: follow up right arm- stuck in elevator door on cruise. Sutures removed on cruise. Start: 01-01-2025 End: 01-01-2025 Patient encounter procedure Mammogram Comment on above: NAFISA DIAGNOSTIC BILAT US BREAST LTD LEFT Comp- Lt 6 MONTH FOL LOW UP PER TB Start: 12-13-2024 End: 07-12-2025 MG Breast - bilateral Diagnostic NAFISA DIAGNOSTIC BILATERAL Radiology Routine Abnormal mammogram of both breasts Expected: 12/13/2024, Expires: 07/12/2025 [facility] Work Phone: Comment on above: Expected: 12/13/2024 , Expires: 07/12/2025 Start: 12-13-2024 End: 07-12-2025 US Breast - left limited US BREAST LTD LEFT Radiology Routine Abnormal mammogram of both breasts Expected: 12/13/2024, Expires: 07/12/2025 [facility] Comment on above: Expected: 12/13/2024 , Expires: 07/12/2025 Start: 12-12-2024 BP Controlled (<130/80) BP Controlle d (<130/80) [facility] Start: 11-21-2024 End: 11-21-2024 ambulatory 11/21/2024 9:30 AM EST Visit (SP) Office Hematology/Oncology [address] [place] [address] Lorri Clark DO [address] [place], [place] [phone] 6 MO OV/MAMM 06/06* Hematology/Oncology Comment on above: 6 MO OV/MAMM 06/06* Start: 11-17-2024 Covid-19 Vaccine ( season) Covid-19 Vaccine () [facility] Start: 11-06-2024 Advance Directive Discussion Advance Directive Discussion [facility] Start: 09-09-2024 End: 09-09-2024 ambulatory 09/09/2024 7:15 AM EST Results Only [place] [facility] [address] [place] [address] [place] [facility] Start: 09-02-2024 End: 09-02-2024 ambulatory 09/02/2024 7:45 AM EDT Results Only [place] [facility] [address] [place] [address] [place] [facility] Start: 08-21-2024 End: 08-21-2024 Patient encounter procedure 08/21/2024 5:20 PM EDT Office Visit [facility] [place] [address] [place] [address] Rangel Bonilla MD [address] [place] [address] 6 month follow up [facility] [place] Comment on above: 6 month follow up Start: 08-21-2024 Depression Screening Depression Scre [facility] Comment on above: Postponed from 09/16 (Declined at this time) Start: 08-19-2024 End: 08-19-2024 ambulatory 08/19/2024 8:30 AM EDT Results Only [place] [facility] [address] [place] [address] [place] [facility] Start: 08-12-2024 End: 08-12-2024 ambulatory 08/12/2024 7:45 AM EDT Results Only [place] [facility] [address] [place] [address] [place] [facility] Start: 08-08-2024 End: 08-08-2024 [facility] Start: 08-07-2024 End: 08-07-2024 Patient encounter procedure 08/07/2024 5:00 PM EDT Office Visit [facility] [place] [address] [place] [address] Rangel Bonilla MD [address] [place] [address] 6 month follow up [facility] [place] Comment on above: 6 month follow up Start: 08-02-2024 End: 08-02-2024 ambulatory 08/02/2024 7:30 AM EDT Results Only [place] [facility] [address] [place] [address] [place] [facility] Start: 07-23-2024 End: 07-23-2024 ambulatory 07/23/2024 4:00 PM EDT Results Only [place] [facility] [address] [place] [address] [facility] Start: 07-22-2024 End: 07-22-2024 Patient encounter procedure 07/22/2024 3:15 PM EDT Office Visit Pulmonary Medicine [address] [place] [address] Cabrera Landeros MD [address] [place] [address] follow up Pulmonary Medicine Comment on above: follow up Start: 07-19-2024 Annual PCP Team Plastic Block Boiler Reliner mario Disease Visit Annual PCP Team Chronic Disease Visit [facility] Start: 07-19-2024 BP Controlled (<130/80) BP Controlle d (<130/80) [facility] Start: 07-18-2024 End: 07-18-2024 Patient encounter procedure 07/18/2024 11:20 AM EDT Office Visit Family [facility] [place] [address] [place] [address] Rangel Bonilla MD [address] [place] [address] Nausea. See triage 07/16/2024 [facility] [place] Comment on above: Nausea. See triage Start: 07-12-2024 End: 10-11-2024 Hemoglobin A1c in Blood HGB A1C Lab Routine Elevated fasting blood sugar Expected: 07/12/2024, Expires: 10/11/2024 [facility] Work Phone: Comment on above: Expected: 07/12/2024 , Expires: 10/11/2024 Start: 07-12-2024 End: 10-11-2024 LIPID PANEL, NONFASTING LIPID PANEL, NONFASTING Lab Routine Essential hypertension Mixed hyperlipidemia Expected: 07/12/2024, Expires: 10/11/2024 [facility] Work Phone: Comment on above: Expected: 07/12/2024 , Expires: 10/11/2024 Start: 07-07-2024 Covid-19 Vaccine () Covid-19 Vaccine () [facility] Start: 07-07-2024 Influenza vaccination Influenza Vacc ine (#1) [facility] Start: 06-11-2024 End: 06-11-2024 Patient encounter procedure Mammogram Comment on above: COMP CB B/L Call back rt and lef t breast Start: 06-06-2024 End: 06-06-2024 Patient encounter procedure 06/06/2024 9:10 AM EDT Appointment Mammogram [address] [place] [address] Encounter for screening mammogram for breast cancer [Z12.31] Mammogram Comment on above: Encounter for screen ing mammogram for breast cancer [Z12.31] Start: 05-21-2024 End: 05-21-2024 ambulatory 05/21/2024 3:00 PM EDT Visit (SP) Office Hematology/Oncology [address] [place] [address] Lorri Clark DO [address] [facility] [place], [place] [phone] [employer]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/History of pulmonary embolus (PE) [Z86.711]/REF PROV DR BONILLA* pt requested date/time Hematology/Oncology Comment on above: S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/History of pulmon ann embolus (PE) [Z86.711]/REF PROV DR BONILLA* pt requested date/time Start: 05-21-2024 End: 08-20-2024 B 2 GPI IGG & IGM [facility] Comment on above: Expected: 05/21/2024 , Expires: 08/20/2024 Start: 05-21-2024 End: 08-20-2024 Cardiolipin IgG and IgM panel - Serum [facility] Work Phone: Comment on above: Expected: 05/21/2024 , Expires: 08/20/2024 Start: 05-08-2024 End: 05-08-2024 Patient encounter procedure 05/08/2024 8:20 AM EDT Office Visit OB/Gynecology [address] [place] [address] Kalpana Arndt MD [address] [place] [address] vaginal irritation OB/Gynecology Comment on above: vaginal irritation Start: 04-30-2024 End: 04-30-2024 ambulatory PULM LAB [facility] Comment on above: Routine Start: 04-19-2024 End: 04-19-2024 Patient encounter procedure 04/19/2024 11:00 AM EDT Office Visit Pulmonary Medicine [address] [place], [place] [address] Cabrera Landeros MD [address] [place] [address] Essential hypertension [I10]; Mixed hyperlipidemia [E78.2]; Elevated fasting blood sugar [R73.01] Pulmonary Medicine Comment on above: Essential hypertensi on [I10]; Mixed hyperlipidemia [E78.2]; Elevated fasting blood sugar [R73.01] Start: 04-15-2024 End: 04-15-2024 Patient encounter procedure 04/15/2024 8:20 AM EDT Office Visit Family [facility] [place] [address] [place], [place] [phone] Rangel Bonilla MD [address] [place] [phone] [facility] Hospital discharge follow up Family [place] Comment on above: [facility] Hospital dis charge follow up Start: 04-08-2024 End: 04-08-2024 Patient encounter procedure 04/08/2024 2:40 PM EDT Office Visit Family [facility] [place] [address] [place], [place] [phone] Rangel Bonilla MD [address] [place] [place] [address] [facility] follow up. Abnormal EKG [facility] [place] Comment on above: [facility] follow up. Abnormal EKG Start: 01-18-2024 FECAL OCCULT BLOOD FECAL OCCULT BLOO D [facility] Start: 01-18-2024 Screening for malign ant neoplasm of colon Fecal Occult Blood [facility] Start: 01-17-2024 ANNUAL PCP TEAM ACCESS SERVICE REPRESENTATIVE MARIO DISEASE VISIT ANNUAL PCP TEAM CHRONIC DISEASE VISIT [facility] Start: 01-17-2024 BP CONTROLLED (<130/80) BP CONTROLLE D (<130/80) [facility] Start: 01-17-2024 COVID-19 VACCINE (4 - Booster for Pfizer series) COVID-19 VACCINE (4 - Booster for Pfizer series) [facility] Comment on above: Postponed from 09/26 (Declined at this time) Start: 01-17-2024 COVID-19 VACCINE (4 - Pfizer series) COVID-19 VACCINE (4 - Pfizer series) [facility] Comment on above: Postponed from 09/26 (Declined at this time) Start: 01-17-2024 Urine microalbumin profile [facility] Comment on above: Postponed from 01/13 (Insurance Coverage) Start: 01-05-2024 End: 03-06-2024 CBC W Auto Differential panel - Blood CBC + DIFF Lab Routine Medication management Expected: 01/05/2024, Expires: 03/06/2024 [facility] Work Phone: Comment on above: Expected: 01/05/2024 , Expires: 03/06/2024 Start: 01-05-2024 End: 03-06-2024 Cobalamin (Vitamin B12) [Mass/volume] in Serum or Plasma VITAMIN B12 BLOOD Lab Routine GERD without esophagitis Medication management Expected: 01/05/2024, Expires: 03/06/2024 [facility] Work Phone: Comment on above: Expected: 01/05/2024 , Expires: 03/06/2024 Start: 01-05-2024 End: 03-06-2024 Comprehensive metabolic 2000 panel - Serum or Plasma COMP METABOLIC PANEL Lab Routine Essential hypertension Mixed hyperlipidemia Expected: 01/05/2024, Expires: 03/06/2024 [facility] Work Phone: Comment on above: Expected: 01/05/2024 , Expires: 03/06/2024 Start: 01-05-2024 End: 03-06-2024 Hemoglobin A1c in Blood HGB A1C Lab Routine Elevated fasting blood sugar Expected: 01/05/2024, Expires: 03/06/2024 [facility] Work Phone: Comment on above: Expected: 01/05/2024 , Expires: 03/06/2024 Start: 01-05-2024 End: 03-06-2024 LIPID PANEL, NONFASTING LIPID PANEL, NONFASTING Lab Routine Essential hypertension Mixed hyperlipidemia Expected: 01/05/2024, Expires: 03/06/2024 [facility] Work Phone: Comment on above: Expected: 01/05/2024 , Expires: 03/06/2024 Start: 01-05-2024 End: 03-06-2024 Magnesium [Mass/volume] in Serum or Plasma MAGNESIUM BLD Lab Routine GERD without esophagitis Medication management Expected: 01/05/2024, Expires: 03/06/2024 [facility] Work Phone: Comment on above: Expected: 01/05/2024 , Expires: 03/06/2024 Start: 01-05-2024 End: 03-06-2024 Thyrotropin [Units/volume] in Serum or Plasma TSH BLD Lab Routine Medication management Expected: 01/05/2024, Expires: 03/06/2024 [facility] Work Phone: Comment on above: Expected: 01/05/2024 , Expires: 03/06/2024 Start: 01-05-2024 End: 03-06-2024 Urinalysis complete panel - Urine URINALYSIS, WITH MICROSCOPIC Lab Routine Essential hypertension Mixed hyperlipidemia Expected: 01/05/2024, Expires: 03/06/2024 [facility] Work Phone: Comment on above: Expected: 01/05/2024 , Expires: 03/06/2024 Start: 11-08-2023 [facility] Start: 11-08-2023 Bacteria identified in Urine by Culture Urine Culture [facility] Start: 11-08-2023 [facility] Start: 11-06-2023 Advance Directive Discussion Advance Directive Discussion [facility] Start: 11-06-2023 Behavioral Health Screening Behavioral Health Screening [facility] Start: 11-06-2023 Depression Assessment Depression Ass essment [facility] Start: 07-07-2023 Covid-19 Vaccine () Covid-19 Vaccine () [facility] Start: 07-07-2023 End: 09-06-2023 Hemoglobin A1c in Blood HGB A1C Lab Routine Elevated fasting blood sugar Expected: 07/07/2023, Expires: 09/06/2023 [facility] Work Phone: Comment on above: Expected: 07/07/2023 , Expires: 09/06/2023 Start: 07-07-2023 Influenza vaccination [facility] Start: 07-07-2023 End: 09-06-2023 LIPID PANEL, NONFASTING LIPID PANEL, NONFASTING Lab Routine Essential hypertension Mixed hyperlipidemia Expected: 07/07/2023, Expires: 09/06/2023 [facility] Work Phone: Comment on above: Expected: 07/07/2023 , Expires: 09/06/2023 Start: 05-25-2023 End: 07-25-2023 Bacteria identified in Urine by Culture [facility] Work Phone: Comment on above: Expected: 05/25/2023 , Expires: 07/25/2023 Start: 05-25-2023 End: 07-25-2023 Urinalysis complete panel - Urine URINALYSIS, WITH MICROSCOPIC Lab Routine Dysuria Expected: 05/25/2023, Expires: 07/25/2023 [facility] Work Phone: Comment on above: Expected: 05/25/2023 , Expires: 07/25/2023 Start: 05-16-2023 [facility] Start: 05-16-2023 Bacteria identified in Urine by Culture Urine Culture [facility] Start: 05-12-2023 [facility] Start: 05-12-2023 Bacteria identified in Urine by Culture Urine Culture [facility] Start: 04-27-2023 ANNUAL PCP TEAM ACCESS SERVICE REPRESENTATIVE MARIO DISEASE VISIT ANNUAL PCP TEAM CHRONIC DISEASE VISIT [facility] Start: 01-09-2023 End: 03-11-2023 CBC W Auto Differential panel - Blood [facility] Work Phone: Comment on above: Expected: 01/09/2023 , Expires: 03/11/2023 Start: 01-09-2023 End: 03-11-2023 Comprehensive metabolic 2000 panel - Serum or Plasma [facility] Work Phone: Comment on above: Expected: 01/09/2023 , Expires: 03/11/2023 Start: 01-09-2023 End: 03-11-2023 Hemoglobin A1c in Blood [facility] Work Phone: Comment on above: Expected: 01/09/2023 , Expires: 03/11/2023 Start: 01-09-2023 End: 03-11-2023 LIPID PANEL, NONFASTING [facility] Work Phone: Comment on above: Expected: 01/09/2023 , Expires: 03/11/2023 Start: 01-09-2023 End: 03-11-2023 Thyrotropin [Units/volume] in Serum or Plasma [facility] Work Phone: Comment on above: Expected: 01/09/2023 , Expires: 03/11/2023 Start: 01-09-2023 End: 03-11-2023 Urinalysis complete panel - Urine [facility] Work Phone: Comment on above: Expected: 01/09/2023 , Expires: 03/11/2023 Start: 12-26-2022 EGDANS, Provider: Dutch Stevenson, Status: Pen, Time: 7:30 AM ETTADAIVAN, Provider: Dutch Stevenson, Status: Pen, Time: 7:30 AM [facility] Work Phone: Start: 12-19-2022 EGDANS, Provider: Dutch Stevenson, Status: Pen, Time: 10:10 AM CICI, Provider: Dutch Stevenson, Status: Pen, Time: 10:10 AM [facility] Work Phone: Start: 11-06-2022 ADVANCE DIRECTIVE DISCUSSION ADVANCE DIRECTIVE DISCUSSION [facility] Start: 11-06-2022 DEPRESSION ASSESSMENT DEPRESSION ASS ESSMENT [facility] Start: 10-27-2022 FECAL OCCULT BLOOD FECAL OCCULT BLOO D [facility] Start: 10-26-2022 Urine microalbumin profile DTAP,TDAP,TD (2 - Tdap) [facility] Comment on above: Postponed from 01/13 (Insurance Coverage) Start: 10-14-2022 End: 12-14-2022 CBC W Auto Differential panel - Blood CBC + DIFF Lab Routine Medication management Expected: 10/14/2022, Expires: 12/14/2022 [facility] Work Phone: Comment on above: Expected: 10/14/2022 , Expires: 12/14/2022 Start: 10-14-2022 End: 12-14-2022 Comprehensive metabolic 2000 panel - Serum or Plasma COMP METABOLIC PANEL Lab Routine Essential hypertension Mixed hyperlipidemia Expected: 10/14/2022, Expires: 12/14/2022 [facility] Work Phone: Comment on above: Expected: 10/14/2022 , Expires: 12/14/2022 Start: 10-14-2022 End: 12-14-2022 Hemoglobin A1c in Blood HGB A1C Lab Routine Elevated fasting blood sugar Expected: 10/14/2022, Expires: 12/14/2022 [facility] Work Phone: Comment on above: Expected: 10/14/2022 , Expires: 12/14/2022 Start: 10-14-2022 End: 12-14-2022 LIPID PANEL, NONFASTING LIPID PANEL, NONFASTING Lab Routine Essential hypertension Mixed hyperlipidemia Expected: 10/14/2022, Expires: 12/14/2022 [facility] Work Phone: Comment on above: Expected: 10/14/2022 , Expires: 12/14/2022 Start: 10-14-2022 End: 12-14-2022 Thyrotropin [Units/volume] in Serum or Plasma TSH BLD Lab Routine Medication management Expected: 10/14/2022, Expires: 12/14/2022 [facility] Work Phone: Comment on above: Expected: 10/14/2022 , Expires: 12/14/2022 Start: 10-14-2022 End: 12-14-2022 Urinalysis complete panel - Urine URINALYSIS, WITH MICROSCOPIC Lab Routine Essential hypertension Mixed hyperlipidemia Expected: 10/14/2022, Expires: 12/14/2022 [facility] Work Phone: Comment on above: Expected: 10/14/2022 , Expires: 12/14/2022 Start: 07-07-2022 Influenza vaccination INFLUENZA (#1) [facility] Start: 04-16-2022 BP CONTROLLED (<130/80) BP CONTROLLE D (<130/80) [facility] Start: 04-12-2022 Egd insert guide wir e dilator passage esophagus EGD GUIDE WIRE INSERTION [facility] Work Phone: Start: 04-12-2022 Egd transoral biopsy single/multiple EGD BIOPSY SINGLE/MULTIPLE [facility] Work Phone: Start: 12-01-2021 COVID-19 VACCINE (4 - Booster for Pfizer series) COVID-19 VACCINE (4 - Booster for Pfizer series) [facility] Start: 11-06-2021 ADVANCE DIRECTIVE DISCUSSION ADVANCE DIRECTIVE DISCUSSION [facility] Start: 11-06-2021 DEPRESSION ASSESSMENT DEPRESSION ASS ESSMENT [facility] Start: 09-26-2021 COVID-19 VACCINE (4 - Booster for Pfizer series) COVID-19 VACCINE (4 - Booster for Pfizer series) [facility] Start: 01-13-2018 Urine microalbumin profile DTAP,TDAP,TD (2 - Tdap) [facility] Start: 2003 RSV Vaccine (1 - 1-d ose 60+ series) RSV Vaccine (1 - 1-dose 60+ series) [facility] Start: 1961 Anxiety Screening Anxiety Screening [facility] Start: 1961 Depression Screening Depression Scre ening [facility] Bacteria identified in Urine by Culture URINE CULTURE Microbiology Routine Acute cystitis without hematuria 04/15/2024 10:09 AM EDT [facility] Work Phone: Bacteria identified in Urine by Culture URINE CULTURE Microbiology Routine Dysuria Frequent UTI 04/19/2024 1:14 PM EDT [facility] Work Phone: Bacteria identified in Urine by Culture BACTERIAL CULTURE, URINE Microbiology Routine Urinary frequency 05/14/2025 5:02 PM EDT [facility] Work Phone: CLEMENTINA/TRICHOMONAS NAAT CLEMENTINA /TRICHOMONAS NAAT Lab Routine Vaginal discomfort 05/28/2025 8:37 AM EDT [facility] Work Phone: COVID & INFLUENZA A/ B & RSV NAAT, ROUTINE COVID & INFLUENZA A/B & RSV NAAT, ROUTINE Microbiology Routine Acute cough Ordered: 03/31/2024 [facility] Work Phone: Comment on above: Ordered: 03/31/2024 COVID & INFLUENZA A/ B & RSV PCR, ROUTINE COVID & INFLUENZA A/B & RSV PCR, ROUTINE Microbiology Routine Exposure to influenza URI, acute Ordered: 01/15/2025 [facility] Work Phone: Comment on above: Ordered: 01/15/2025 COVID & INFLUENZA A/ B & RSV PCR, ROUTINE COVID & INFLUENZA A/B & RSV PCR, ROUTINE Microbiology Routine Viral upper respiratory infection 07/08/2025 9:52 AM T [facility] Work Phone: End: 02-15-2024 Ct thorax w/o contrast material CT CHEST WO IVCON Radiology Routine Pulmonary nodules Lung nodules Abnormal lung sounds 1 Occurrences starting 01/16/2023 until 02/15/2024 [facility] Work Phone: Comment on above: 1 Occurrences starti ng 01/16/2023 until 02/15/2024 End: 06-20-2025 DBT Breast - bilateral screening NAFISA SCREENING W CHANEL Radiology Routine Encounter for screening mammogram for breast cancer 1 Occurrences starting 05/21/2024 until 06/20/2025 [facility] Comment on above: 1 Occurrences starti ng 05/21/2024 until 06/20/2025 DBT Breast - bilater al screening NAFISA SCREENING W CHANEL Radiology Routine Encounter for screening mammogram for breast cancer 06/06/2024 9:53 AM EDT [facility] Work Phone: End: 02-01-2026 DBT Breast - left diagnostic for implant NAFISA DIAG W CHANEL LEFT Radiology Routine Abnormal mammogram of both breasts 1 Occurrences starting 01/02/2025 until 02/01/2026 [facility] Work Phone: Comment on above: 1 Occurrences starti ng 01/02/2025 until 02/01/2026 ECG B/O W INTERP (ME D OFFICE) ECG B/O W INTERP (MED OFFICE) ECG Routine Irregular heart beat Ordered: 03/31/2024 [facility] Comment on above: Ordered: 03/31/2024 ECG COMPLETE ECG COMPLETE ECG 03/31/2024 8:56 AM EDT [facility] Hemoglobin.gastroint estin al.lower [Presence] in Stool by Immunoassay FECAL OCCULT BLOOD TEST Lab Routine Colon cancer screening Ordered: 01/16/2023 [facility] Work Phone: Comment on above: Ordered: 01/16/2023 End: 07-10-2025 MG Breast - bilateral Diagnostic [facility] Work Phone: Comment on above: 1 Occurrences starti ng 06/10/2024 until 07/10/2025 End: 05-19-2025 NITRIC OXIDE, EXHALED NITRIC OXIDE, EXHALED PFT Routine 1 Occurrences starting 04/19/2024 until 05/19/2025 [facility] Comment on above: 1 Occurrences starti ng 04/19/2024 until 05/19/2025 OXIMETRY - NOCTURNAL OXIMETRY - NOCTURNAL Procedures Routine Ordered: 07/22/2024 [facility] Work Phone: Comment on above: Ordered: 07/22/2024 Patient Education [facility] Work Phone: Patient referral [facility] Work Phone: End: 07-18-2025 PT panel - Platelet poor plasma by Coagulation assay PROTHROMBIN TIME Lab STAT History of pulmonary embolus (PE) Daily for 365 Occurrences starting 07/18/2024 until 07/18/2025 [facility] Work Phone: Comment on above: Daily for 365 Occurr ences starting 07/18/2024 until 07/18/2025 End: 03-21-2026 PT panel - Platelet poor plasma by Coagulation assay PROTHROMBIN TIME Lab Routine 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 50 Occurrences starting 03/21/2025 until 03/21/2026 [facility] Work Phone: Comment on above: 50 Occurrences start ing 03/21/2025 until 03/21/2026 End: 03-19-2026 PT panel - Platelet poor plasma by Coagulation assay PROTHROMBIN TIME Lab Routine History of pulmonary embolus (PE) Daily for 365 Occurrences starting 03/19/2025 until 03/19/2026, 1 completed [facility] Work Phone: Comment on above: Daily for 365 Occurr ences starting 03/19/2025 until 03/19/2026, 1 completed End: 05-19-2025 SPIROMETRY WITH DILATOR IF OBSTRUCTED SPIROMETRY WITH DILATOR IF OBSTRUCTED PFT Routine 1 Occurrences starting 04/19/2024 until 05/19/2025 [facility] Work Phone: Comment on above: 1 Occurrences starti ng 04/19/2024 until 05/19/2025 SPIROMETRY WITH DILA TOR IF OBSTRUCTED SPIROMETRY WITH DILATOR IF OBSTRUCTED PFT Routine 04/30/2024 2:49 PM EDT [facility] Work Phone: UROGENITAL UREAPLASM A AND MYCOPLASMA SPECIES BY PCR, FOR GENITAL, RECTAL, URINE SAMPLES [facility] Work Phone: End: 07-10-2025 [facility] Comment on above: 1 Occurrences starti ng 06/10/2024 until 07/10/2025 End: 02-01-2026 US Breast - left limited US BREAST LTD LEFT Radiology Routine Abnormal mammogram of both breasts 1 Occurrences starting 01/02/2025 until 02/01/2026 [facility] Comment on above: 1 Occurrences starti ng 01/02/2025 until 02/01/2026 End: 07-10-2025 US Breast - right limited [facility] Comment on above: 1 Occurrences starti ng 06/10/2024 until 07/10/2025 [facility] Immunizations Immunization Date Immunization Notes Care Provider Rebel almeida 02-26-2025 COVID-19 vaccine, ag e 12+ yr (PFIZER-BIONTECH COMIRNATY) Helena Vazquez APRN.[facility] Work Phone: [facility] 08-07-2024 Seasonal trivalent influenza vaccine, adjuvanted, preservative free Rangel Bonilla MD Work Phone: [facility] 08-07-2024 influenza virus vacc ine, unspecified formulation Sharmila Weiss [facility] 07-18-2024 COVID-19 vaccine, ag e 12+ yr (PFIZER-BIONTECH) Cabrera Landeros MD Work Phone: [facility] 06-26-2024 respiratory syncytia l virus (RSV) vaccine, bivalent (ABRYSVO) Rangel Bonilla MD Work Phone: [facility] 09-11-2023 influenza virus vacc ine, unspecified formulation Susi Murrell MD Work Phone: [facility] 01-16-2023 pneumococcal (PCV20) vaccine, 20 valent (PREVNAR 20) Rangel Bonilla MD Work Phone: [facility] 01-16-2023 pneumococcal Conjuga te, unspecified formulation Rangel Bonilla MD Work Phone: [facility] Work Phone: 08-16-2022 Fluad Quadrivalent 0 .5 ML Intramuscular Prefilled Syringe Referring Provider Unknown [facility] Work Phone: 08-16-2022 influenza virus vacc ine, unspecified formulation Rangel Bonilla MD Work Phone: [facility] 08-20-2021 Fluzone High-Dose Quadrivalent 0.7 ML Intramuscular Suspension Prefilled Syringe Referring Provider Unknown [facility] Work Phone: 08-01-2021 Pfizer-BioNTech COVI D-19 Vacc 30 MCG/0.3ML Intramuscular Suspension Referring Provider Unknown [facility] Work Phone: 12-29-2020 COVID-19 vaccine, ag e 12+ yr (PFIZER-BIONTECH - PURPLE TOP) Rangel Bonilla MD Work Phone: [facility] 12-10-2020 COVID-19 vaccine, ag e 12+ yr (PFIZER-BIONTECH - PURPLE TOP) Rangel Bonilal MD Work Phone: [facility] 09-06-2020 influenza, high dose seasonal, preservative-free Rangel Bonilla MD Work Phone: [facility] 09-02-2020 influenza, high-dose , quadrivalent vaccine (FLUZONE HIGH DOSE QUADRIVALENT) Rangel Bonilla MD Work Phone: [facility] 08-14-2019 influenza, high dose seasonal, preservative-free Rangel Bonilla MD Work Phone: [facility] 08-14-2019 Influenza, injectabl e, Madin Tanya Canine Kidney, preservative free, quadrivalent Rangel Bonilla MD Work Phone: [facility] 09-09-2018 influenza, injectabl e, quadrivalent, preservative free Referring Provider Unknown [facility] Work Phone: 09-09-2018 tetanus toxoid, redu aundrea diphtheria toxoid, and acellular pertussis vaccine, adsorbed Referring Provider Unknown [facility] Work Phone: 06-13-2018 zoster vaccine recombinant Rangel Bonlila MD Work Phone: [facility] 04-11-2018 zoster vaccine recombinant Rangel Bonilla MD Work Phone: [facility] 09-03-2017 influenza, high dose seasonal, preservative-free Rangel Bonilla MD Work Phone: [facility] 08-06-[address] Zane Granado Work Phone: [facility] 08-04-2017 pneumococcal polysaccharide vaccine, 23 valent Rangel Bonilla MD Work Phone: [facility] 10-05-2016 influenza, injectabl e, quadrivalent, contains preservative Rangel Bonilla MD Work Phone: [facility] 07-20-2016 pneumococcal conjuga te vaccine, 13 valent Rangel Bonilla MD Work Phone: [facility] Work Phone: 11-04-2009 novel influenza-H1N1 -09, preservative-free, injectable Referring Provider Unknown [facility] Work Phone: 08-18-2009 pneumococcal polysaccharide vaccine, 23 valent Rangel Bonilla MD Work Phone: [facility] Work Phone: 10-24-2008 zoster vaccine, live Referri ng Provider Unknown [facility] 01-14-2008 diphtheria and tetan us toxoids, adsorbed for pediatric use Rangel Bonilla MD Work Phone: [facility] Work Phone: 04-16-2007 zoster vaccine, live Rangel Bonilla MD Work Phone: [facility] Work Phone: 09-05-2006 influenza virus vacc ine, unspecified formulation Rangel Bonilla MD Work Phone: [facility] Work Phone: Payers Date Payer Category Payer Self-pay [id number] 2013 Private Health Insurance [employer]ICARE SUPPLEMENT [id number] 2013-Present [phone] [address] [place] [address] Indemnity [id number] 2013 Private Health Insurance [id number] 2013 Private Health Insurance [id number] 2008 Medicare MEDICARE MEDICAR E A AND B [id number] 2008-Present [phone] [address] [address] [place] [address] Medicare [id number] 2008 Medicare [id number] 2008 Medicare [id number] 1945 Unknown [id number] Unknown Unknown [id number] Unknown [id number] Unknown [id number] Unknown [id number] Unknown [id number] Unknown [id number] Unknown [id number] Unknown [id number] [id number] Unknown [id number] [id number] Unknown [id number] Unknown [id number] [id number] Social History Date Type Detail Facility Start: 03-04-2022 End: 11-08-2023 Tobacco smoking status ILIS Unknown if ever smoked [facility] Start: 1945 Sex Assigned At Female C [facility] Work Phone: Start: 09-14-2017 End: 07-22-2025 Tobacco smoking status ILIS Never smoked tobacco [facility] Start: 04-27-2022 End: 07-10-2025 Alcohol intake Current drinker of alcohol (finding) [facility] Start: 04-27-2022 End: 07-19-2023 Alcohol intake [facility] Work Phone: Start: 09-14-2017 History SDOH Alcohol Comment Socially. [facility] Start: 09-14-2017 End: 01-16-2023 Tobacco Comment No smoking in childhood home. No significant ETS in household since. [facility] Start: 12-29-2020 End: 04-27-2022 Exposure to SARS-CoV-2 (event) Not sure [facility] Start: 09-14-2017 End: 04-19-2024 Tobacco use and exposure Smokeless tobacco non-user [facility] Work Phone: Start: 07-08-2018 None [facility] Start: 07-08-2018 Spouse/ Signif icant Other [facility] Start: 04-03-2018 Non-smoker [facility] Start: 01-16-2023 End: 07-19-2023 Tobacco use panel [facility] Work Phone: Start: 10-07-2012 Adult Depression Screening Assessment 0 [facility] Work Phone: Start: 09-14-2017 Gender identity Identifies as female gender (finding) [facility] Work Phone: Start: 09-14-2017 Sexual orientation Heterosexual (nicole kat) [facility] Work Phone: (I/We) worried wheth er (my/our) food would run out before (I/we) got money to buy more. Never true [facility] Work Phone: Start: 04-19-2024 Alcohol Comment socially [facility] How often to you hav e a drink containing alcohol? 2-3 time sa week [facility] How many standard drinks containing alcohol do you have on a typical day? 1 or 2 [facility] How often do you hav e 6 or more drinks on 1 occasion? Never [facility] NEGATED: Highlighted rowStart: CHAROF History of tobacco use Passive smoker [facility] Medical Equipment Procedure Code Equipment Code Equipment Origin al Text Equipment Identifier Dates EGD, with monitored anesthesia care PROBE,PH CAPSULE WITH DEL SYS FDA Start: 04-12-2022 EGD, with monitored anesthesia care PROBE,PH CAPSULE WITH DEL SYS FDA Start: 04-12-2022 EGD, with monitored anesthesia care PROBE,PH CAPSULE WITH DEL SYS FDA Start: 04-12-2022 EGD, with monitored anesthesia care PROBE,PH CAPSULE WITH DEL SYS FDA Start: 04-12-2022 EGD, with monitored anesthesia care PROBE,PH CAPSULE WITH DEL SYS FDA Start: 04-12-2022 EGD, with monitored anesthesia care PROBE,PH CAPSULE WITH DEL SYS FDA Start: 04-12-2022 EGD, with monitored anesthesia care PROBE,PH CAPSULE WITH DEL SYS FDA Start: 04-12-2022 EGD, with monitored anesthesia care PROBE,PH CAPSULE WITH DEL SYS FDA Start: 04-12-2022 EGD, with monitored anesthesia care PROBE,PH CAPSULE WITH DEL SYS FDA Start: 04-12-2022 EGD, with monitored anesthesia care PROBE,PH CAPSULE WITH DEL SYS FDA Start: 04-12-2022 EGD, with monitored anesthesia care PROBE,PH CAPSULE WITH DEL SYS FDA Start: 04-12-2022 Goals Date Patient Goal Desired Activity /State Functional Status Date Assessment Result Facility 02-26-2025 Total score [AUDIT-C] 3 02/27/20 25 5:46 PM EDT Madison Vazquez MA [facility] 01-21-2015 Are you deaf, or do you have serious difficulty hearing No 01/21/2015 8:07 AM EDT Simin So MA No [facility] 01-21-2015 Are you blind, or do you have serious difficulty seeing, even when wearing glasses No 01/21/2015 8:07 AM EDT Simin So MA [facility] 01-21-2015 Do you have serious difficulty walking or climbing stairs No 01/21/2015 8:07 AM EDT Simin So MA [facility] 01-21-2015 Do you have difficul ty dressing or bathing No 01/21/2015 8:07 AM EDT Simin So MA [facility] 01-21-2015 Because of a physica l, mental, or emotional condition, do you have difficulty doing errands alone such as visiting a physician's office or shopping No 01/21/2015 8:07 AM EDT Simin So MA [facility] Mental Status Date Assessment Result Facility 07-22-2025 Cognitive function Level Of Cons ciousness Awake [facility] Work Phone: 04-13-2025 Cognitive function Voice/Name [facility] Work Phone: 04-12-2022 Cognitive function Voice/Name [facility] Work Phone: 01-21-2015 Because of a physica l, mental, or emotional condition, do you have serious difficulty concentrating, remembering, or making decisions No 01/21/2015 8:07 AM EDT Simin So MA [facility] Clinical Notes 01-14-2008 to 09-17-2025 Note Date & Type Note Facility 09-17-2025 Note HNO ID: [id number] Author: CLARITA NEELY LPN Service: ? Author Type: Licensed Nurse Type: Progress Notes Filed: 09/17/2025 07:09 Note Text: Scan on 2025 4:45 PM by Provider, PILAR Hernandez: Consultation - Cardiology [facility] 08-29-2025 Note [facility] 08-22-2025 Progress note [facility] 08-22-2025 Progress note Note Date/Time August 22, 2025 3:01pm [facility] [address], [address] [place] [address] OFFICE VISIT Date of Service: 08/22/25 MR#: [id number] Acct: [id number] Name: GREGG FERRIS Rep #: [id number] : 1945 Provider: Dr. Gerard Coello MD Age/Sex: 79/F Location: [facility] Status: Signed Intake Vital Signs 07/28/25 16:38 08/22/25 14:32 Height 5 ft 3 in 5 ft 3 in Weight: 135 lb 135 lb BMI 23.9 23.9 BP 177/99 H 142/84 H Respiration 16 Pulse 97 80 Temp 98.3 F 98 F Temp Source Oral Pulse Oximetry (%) 98 Intake Visit Reasons: UTI/needs to discuss ABX with Dr. Coello Compliance Lead Required: No Is patient in pain?: No Allergies No Known Allergies Allergy (Verified 07/28/25 16:38) Have you fallen in the past year?: No PFSH Medical History Viral illness Leukocytosis UTI (urinary tract infection) Cough Post-menopausal Alcohol use History of steroid therapy Easy bruising PONV (postoperative nausea and vomiting) Non-smoker Cardiology follow-up encounter History of echocardiogram History of stress test Hypertension Hx of migraines UTI (urinary tract infection) DDD (degenerative disc disease), lumbar Spinal stenosis Chronic back pain Cystitis GERD (gastroesophageal reflux disease) Infection due to ESBL-producing Escherichia coli Essential (primary) hypertension Hyperlipidemia Surgical History History of back surgery S/P subdural hematoma evacuation History of appendectomy History of laparoscopic cholecystectomy History of hysterectomy Family History Mother Heart disease Father Heart disease Brother Heart disease CAD (coronary artery disease) Social History household members: spouse housing: house Smoking Status: Never smoker HPI HPI Urology Details: GREGG FERRIS, is a 79 F. She is having chills, nausea, decreased appetite. She recently saw GI and was diagnosed with esophageal yeast and is on liquid solution for this. She has had sensation of urinary tract infection with inconclusive culture results. She stopped in yesterday for a PCR culture that grew glabrata. She was supposed to have stopped her nightly antibiotic in June, but she was afraid to do that. She is compliant with D-mannose, estrogen cream, vitamin C, and she stopped her probiotics as they were not recommended with her anticoagulation. ROS Const Constitutional: Positive for chills; No fatigue, fever(s), headache(s), night sweats, weakness, weight change, abnormal sleep pattern or change in appetite Eyes Eyes: No change in vision ENT ENT: No headache(s) or dry mouth Resp Respiratory: No cough, chest congestion, shortness of breath or wheezing Cardio Cardiology: Positive for other (No chest pain.); No shortness of breath, irregular heart rhythm or lightheadedness Gastro GI: Positive for other (No nausea.); No abdominal pain, change in bowel habits, constipation, diarrhea or vomiting Genitourinary-Female: Positive for other (See HPI); No difficulty urinating or urinary frequency Musc Musculoskeletal: No abnormal gait Skin Skin: No yellowing of the eye, lesions, itchy eyes, rash or skin ulcer Neuro Neurology: No abnormal gait, confusion, dizziness, weakness, headache(s) or memory loss Psych Psychiatric: No abnormal sleep pattern, No change in appetite, No confusion and No memory loss Endo Endocrine: No fatigue, increased thirst/drinking or weight change Aller/Imm Allergy/Immunologic: No itchy eyes or wheezing Jose/Lymp Hematologic/Lymphatic: No easy bleeding or enlarged lymph nodes Exam Const General: cooperative, healthy appearing, comfortable and no acute distress HENMA Head: normocephalic and atraumatic Ears: hearing grossly normal bilaterally and external ears normal Nose: external nose normal Eyes General: appearance normal, both eyes and all related structures Neck Neck: normal visual inspection and trachea midline Chest Chest palpation & inspection: normal inspection of the chest Resp Effort & Inspection: normal respiratory effort, able to speak in complete sentences and symmetric chest movement Cardio Rate: regular rate GI Inspection: normal to inspection Palpation: soft and nontender General: No CVA tenderness Skin General: no rashes or lesions noted Neuro General: patient alert, patient awake, patient oriented x3 and CN's II-XI intactbilaterally Extrem General: normal to inspection Psych Appearance: grossly normal and well kempt Mental Status: mental status grossly normal Results POC UA Auto w/o Microscopy Office Urine Color YELLOW Last Edit by Rupa Quintero on 08/22/25 14:31 Office Urine Clarity Last Edit by Rupa Quintero on 08/22/25 14:31 Office Urine Glucose Negative Last Edit by Rupa Quintero on 08/22/25 14:31 Office Urine Ketones Negative Last Edit by Rupa Quintero on 08/22/25 14:31 Office Urine Bilirubin Negative Last Edit by Rupa Quintero on 08/22/25 14:31 Office Urine Urobilinogen 0.2 mg/dL Last Edit by Rupa Quintero on 08/22/25 14:31 Off Ur Spec [place] 1.010 Last Edit by Rupa Quintero on 08/22/25 14:31 Office Urine pH 6 Last Edit by Rupa Quintero on 08/22/25 14:31 Office Urine Protein Negative Last Edit by Rupa Quintero on 08/22/25 14:31 Office Urine Blood Negative Last Edit by Rupa Quintero on 08/22/25 14:31 Office Urine Blood Hemolyzed Last Edit by Rupa Quintero on 08/22/25 14:31 Office Urine Nitrate Negative Last Edit by Rupa Quintero on 08/22/25 14:31 Off Ur Leukocytes Negatve Last Edit by Rupa Quintero on 08/22/25 14:31 Coding Level of Care Code Off vis,est,level 4 Diagnoses Acute cystitis without hematuria N30.00 Hematuria presence: without hematuria Urinary tract infection type: acute cystitis Vaginal atrophy N95.2 Intermittent dysphagia R13.19 Assessment and Plan Assessment and Plan (1) UTI (urinary tract infection): Status: Acute Qualifiers: Hematuria presence: without hematuria Urinary tract infection type: acute cystitis Qualified Code(s): N30.00 - Acute cystitis without hematuria (2) Vaginal atrophy: Status: Acute (3) Intermittent dysphagia: Status: Acute Orders: Orders POC UA Auto w/o Microscopy 08/22/25 N30.00 - Acute cystitis without hematuria Medications: New fluconazole take 2 tabs on day one, and then one daily until gone orally daily; 6 tabs 0RF Refilled nystatin swish and swallow 1 mL PO TID 42 mL 0RF 14 days Plan continue D-mannose, vitamin C, vaginal estrogen cream and restart probiotics stop nightly cephalexin she has start therapy at home will treat current infection with Diflucan, hold oral nystatin solution repeat culture and appointment in 2 weeks Plan Details Follow Up: 2 Weeks (repeat culture and UTI f/u) Clinical Quality Measures Falls Risk Screening/Assistive Devices Have you fallen in the past year?: No 08/24/252223 <Electronically signed by Mala Coello MD> Date _ Mala Coello MD [facility] Signature: Date (if applicable) CC: ~ [facility] [facility] Work Phone: [phone] 243-650810-15-2025 [facility] [address] [place] [address] OFFICE VISIT Date of Service: 08/18/25 MR#: [id number] Acct: [id number] Name: GREGG FERRIS Rep #: [id number] : 1945 Provider: Zane Granado DO Age/Sex: 79/F Location: [facility] Status: Signed Intake Vital Signs 07/22/25 11:37 07/28/25 16:38 Height 5 ft 3 in 5 ft 3 in Intake Visit Reasons: Nausea/vomiting Allergies No Known Allergies Allergy (Verified 07/28/25 16:38) Medications ?Medication ?Instructions ?Recorded ?Confirmed ?Type ascorbic acid (vitamin C) 1,000 mg 1 cap PO QHS vitami n 04/07/22 08/18/25 Hist ory capsule,extended release simvastatin 10 mg tablet 10 mg PO DAILY cholesterol 0 11/08/23 08/18/25 History sumatriptan succinate 100 mg tablet 100 mg PO Q2H PRN migraine headache 11/08/23 08/18/25 History cephalexin 250 mg capsule 250 mg PO QHS 11/08/2408/18 History d-mannose 500 mg capsule 2,000 mg PO DAILY 11/08/24 1 History cholecalciferol (vitamin D3) 25 25 mcg PO QDAY 5 08/18/25 History mcg (1,000 unit) capsule vitamins A,C,Q-dyrg-crnzvh 4,296 1 cap PO BID 06/06/25 08/18/25 History mcg-226 mg-90 mg capsule (PreserVision AREDS) apixaban 2.5 mg tablet (Eliquis) 2.5 mg PO BID 5 08/18/25 History nystatin 100,000 unit/mL oral 1 ml PO TID 14 days #42 mL 08/18/25 08/18/25 Rx suspension ondansetron 4 mg disintegrating 4 mg PO Q6H PRN nausea and 08/18/25 08/18/25 Rx tablet vomiting #60 tabs Have you fallen in the past year?: No PFSH Medical History Viral illness Leukocytosis UTI (urinary tract infection) Cough Post-menopausal Alcohol use History of steroid therapy Easy bruising PONV (postoperative nausea and vomiting) Non-smoker Cardiology follow-up encounter History of echocardiogram History of stress test Hypertension Hx of migraines UTI (urinary tract infection) DDD (degenerative disc disease), lumbar Spinal stenosis Chronic back pain Cystitis GERD (gastroesophageal reflux disease) Infection due to ESBL-producing Escherichia coli Essential (primary) hypertension Hyperlipidemia Surgical History History of back surgery S/P subdural hematoma evacuation History of appendectomy History of laparoscopic cholecystectomy History of hysterectomy Family History Mother Heart disease Father Heart disease Brother Heart disease CAD (coronary artery disease) Social History household members: spouse housing: house Smoking Status: Never smoker HPI HPI Details: GREGG FERRIS, is a 79 F who presents to the office today for follow up. Esophagram 05.23.17?tablet becomes trapped at GEJ ?Upper GI series 03.19.18?small sliding hiatal hernia; no reflux ?EGD with [facility] 04.04.18?small hiatal hernia. ? [facility] total [place] 10.1; Day 1 [place] 3.6; Day 2 [place] 15.4 ?CT abd/pel 12.26.18?colonic diverticulosis; s/p cholecystectomy; splenic cyst. ENT established: ?Laryngoscopy 01.01.22?severe edema of interarytenoid space *BGI established 03.04.22 referral from ENT to evaluate GERD with frequent throatclearing and coughing. Heartburn sensation is minimal and uses PRN Gaviscon which is helpful; omeprazole 40mg QD ineffective. 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 [facility] total [place] 13.7; Day 1 [place] 11.8 upright > supine; Day 2 [place]ter 15.5 upright > supine OV 6.30.22?Start sucralfate and PPI taper ?Esophagram 7..?small sliding hiatal hernia without GERD 2. Dr. 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 She still struggles with throat clearing during the day but is not as bad as it used to be. Does not have any heartburn, reflux, nausea or abdominal pain. Would like to have RFA repeated. OV 1.01.28 pt report increased clearing of her throat and was told at her last appt that if the prednisone was not helpful for this symptom then she may need ablation. Pt denies other GI symptoms of concern at this time. OV 08.18.25 pt reports for the past month, ever since having a cold, she has chills during the night, nausea that comes and goes, little appetite, mild constipation, and no fever, but feels feverish. Pt states that she went to the ER and her pcp Dr Bonilla, who both ran all kinds of tests and states that everything came back normal. ROS Const Constitutional: No fatigue, fever(s) or weight change ENT ENT: No difficulty swallowing Gastro GI: Positive for constipation and nausea/dyspepsia; No abdominal pain, belching, bloating, change in bowel habits, change in stool character, coffee ground emesis, cramping, diarrhea, heartburn, difficulty swallowing, feeling full early, excessive flatus, incontinent of stools, Vomiting blood/hematemesis, Blood in stool, loose stools, Black,tarry stools, pain with swallowing, vomiting or other Musc Musculoskeletal: No joint pain Skin Skin: No yellowing of the eye or itchy eyes Psych Psychiatric: No anxiety and No depression Endo Endocrine: No fatigue or weight change Aller/Imm Allergy/Immunologic: No itchy eyes Jose/Lymp Hematologic/Lymphatic: Positive for easy bruising; No easy bleeding Exam Const General: cooperative and comfortable Nutritional Appearance: average body habitus and well nourished HENMT Head: normal to inspection Ears: hearing grossly normal bilaterally Nose: external nose normal Face and sinus: normal facial exam Mouth: oral mucosae normal Throat: posterior oropharynx normal Eyes General: appearance normal, both eyes and all related structures Neck Neck: normal visual inspection Chest Chest palpation & inspection: normal inspection of the chest and normal palpation of entire chest wall Resp Effort & Inspection: normal respiratory effort Auscultation: Bilateral: Clear to Auscultation Cardio Palpation: normal PMI Rate: regular rate Rhythm: regular rhythm GI Inspection: normal to inspection Auscultation: normal bowel sounds Percussion: normal to percussion Palpation: no hepatosplenomegaly Skin General: no rashes or lesions noted Neuro General: patient alert Extrem General: normal to inspection Psych Affect: normal affect Assessment and Plan Assessment and Plan (1) Nausea and vomiting: (2) Intermittent dysphagia: Status: Acute Plan: ?Assessment 79-year-old woman with a complex and chronic presentation of gastrointestinal symptoms, including nausea, bloating, abdominal pain, and dysphagia. Given the duration of her symptoms and her long-termantibiotic use, several differential diagnoses must be considered: * Long-term Keflex side effects:?Chronic antibiotic use, especially over one year, can lead to significant gastrointestinal issues due to the disruption of the gut microbiome. Keflex is known to cause nausea, abdominal pain, bloating, and in severe cases,?Clostridioides difficile-associated diarrhea (CDAD). The long duration of therapy and the persistent nature of her symptoms make this a primaryconsideration. * * Medication-induced esophagitis:?Elderly patients on long-term medication are at an increased riskfor pill-induced esophagitis, particularly if they have decreased esophageal motility or don't takemedication with enough water. While Keflex is not the most common culprit, her new-onset esophagealdysphagia, in the context of chronic drug use, raises concern. * * Gastroesophageal Reflux Disease (GERD):?Chronic GERD can cause esophagitis and dysphagia. The nausea and bloating could also be related. The long-term antibiotic use could potentially exacerbate reflux or cause esophagitis. * Infectious causes:?Long-term antibiotic therapy can lead to overgrowth of other organisms, such as Clementina esophagitis, which can cause dysphagia, especially in an elderly patient. * Functional dysphagia:?This is a diagnosis of exclusion after structural and motility issues have been ruled out. It's defined by the Blas IV criteria and is characterized by a sensation of food sticking in the chest without an underlying pathology. * * Esophageal stricture or tumor:?While a normal CT scan is reassuring, an upper endoscopy is neededto rule out structural causes of esophageal dysphagia like strictures or malignancy. Plan * Discontinue Keflex:?The patient should have a thorough discussion with her healthcare provider about discontinuing long-term suppressive antibiotic therapy with Keflex, given the potential for gastrointestinal side effects and the risk of developing drug-resistant bacteria. An alternative strategy for preventing recurrent UTIs should be considered. * * Esophagogastroduodenoscopy (EGD):?EGD is warranted to evaluate the esophageal mucosa and gastric lining. This can help identify or rule out esophagitis (including pill-induced or candidal), strictures, or other structural abnormalities contributing to the dysphagia and persistent GI symptoms. Biopsies may be necessary to rule out eosinophilic esophagitis or malignancy. * Trial of Probiotics:?Consider adding a probiotic supplement to help re- establish a healthy gut microbiome following chronic antibiotic exposure, which may help alleviate bloating and abdominal symptoms. * * Symptom Management:?Continue Zofran as needed for nausea. Geomorphologist on dietary modifications, such as eating smaller, more frequent meals and avoiding rich or spicy foods, to manage stomach upset. Greg also give her a 2-week cour se of nystatin swish and swallow. Medications: New nystatin swish and swallow 1 mL PO TID 42 mL 0RF 14 days Refilled ondansetron 4 mg PO Q6H PRN 60 tabs 1RF nausea and vomiting Coding Level of Care Code Off vis,est,level 4 Diagnoses Nausea and vomiting R11.2 Intermittent dysphagia R13.19 Clinical Quality Measures Falls Risk Screening/Assistive Devices Have you fallen in the past year?: No 08/18/25 1705 d DO> Date _ Zane Friend DO Rocioignadolfo Signature: Date (if applicable) CC: ~ [facility]10-13-2025 Progress note Author Zane Granado [facility] Note Date/Time August 18, 2025 3 :58pm [facility] [address] [place] [address] OFFICE VISIT Date of Service: 08/18/25 MR#: [id number] Acct: [id number] Name: GREGG FERRIS Rep #: [id number] : 1945 Provider: Zane Granado DO Age/Sex: 79/F Location: [email or web address] Status: Signed Intake Vital Signs 07/22/25 11:37 07/28/25 16:38 Height 5 ft 3 in 5 ft 3 in Intake Visit Reasons: Nausea/vomiting Allergies No Known Allergies Allergy (Verified 07/28/25 16:38) Medications ?Medication ?Instructions ?Recorded ?Confirmed ?Type ascorbic acid (vitamin C) 1,000 mg 1 cap PO QHS vitami n 04/07/22 08/18/25 Hist ory capsule,extended release simvastatin 10 mg tablet 10 mg PO DAILY cholesterol 0 11/08/23 08/18/25 History sumatriptan succinate 100 mg tablet 100 mg PO Q2H PRN migraine headache 11/08/23 08/18/25 History cephalexin 250 mg capsule 250 mg PO QHS 11/08/2408/18 History d-mannose 500 mg capsule 2,000 mg PO DAILY 11/08/24 1 History cholecalciferol (vitamin D3) 25 25 mcg PO QDAY 5 08/18/25 History mcg (1,000 unit) capsule vitamins A,C,Y-rtzo-ysviqe 4,296 1 cap PO BID 06/06/25 08/18/25 History mcg-226 mg-90 mg capsule (PreserVision AREDS) apixaban 2.5 mg tablet (Eliquis) 2.5 mg PO BID 5 08/18/25 History nystatin 100,000 unit/mL oral 1 ml PO TID 14 days #42 mL 08/18/25 08/18/25 Rx suspension ondansetron 4 mg disintegrating 4 mg PO Q6H PRN nausea and 08/18/25 08/18/25 Rx tablet vomiting #60 tabs Have you fallen in the past year?: No PFSH Medical History Viral illness Leukocytosis UTI (urinary tract infection) Cough Post-menopausal Alcohol use History of steroid therapy Easy bruising PONV (postoperative nausea and vomiting) Non-smoker Cardiology follow-up encounter History of echocardiogram History of stress test Hypertension Hx of migraines UTI (urinary tract infection) DDD (degenerative disc disease), lumbar Spinal stenosis Chronic back pain Cystitis GERD (gastroesophageal reflux disease) Infection due to ESBL-producing Escherichia coli Essential (primary) hypertension Hyperlipidemia Surgical History History of back surgery S/P subdural hematoma evacuation History of appendectomy History of laparoscopic cholecystectomy History of hysterectomy Family History Mother Heart disease Father Heart disease Brother Heart disease CAD (coronary artery disease) Social History household members: spouse housing: house Smoking Status: Never smoker HPI HPI Details: GREGG FERRIS, is a 79 F who presents to the office today for follow up. Esophagram 7..17?tablet becomes trapped at GEJ ?Upper GI series 5.14.18?small sliding hiatal hernia; no reflux ?EGD with Zuniga 5.30.18?small hiatal hernia. ? Zuniga total [place] 10.1; Day 1 [place] 3.6; Day 2 [place] 15.4 ?CT abd/pel 12.26.18?colonic diverticulosis; s/p cholecystectomy; splenic cyst. ENT established: ?Laryngoscopy 01.01.22?severe edema of interarytenoid space *BGI established 03.04.22 referral from ENT to evaluate GERD with frequent throatclearing and coughing. Heartburn sensation is minimal and uses PRN Gaviscon which is helpful; omeprazole 40mg QD ineffective. 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 Zuniga total [place] 13.7; Day 1 [place] 11.8 upright > supine; Day 2 [place] 15.5 upright > supine OV 05.05.22?Start sucralfate and PPI taper ?Esophagram 05.11.22?small sliding hiatal hernia without GERD 12.19.22 Dr. 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 She still struggles with throat clearing during the day but is not as bad as it used to be. Does not have any heartburn, reflux, nausea or abdominal pain. Would like to have RFA repeated. OV 1..25 pt report increased clearing of her throat and was told at her last appt that if the prednisone was not helpful for this symptom then she may need ablation. Pt denies other GI symptoms of concern at this time. OV 10..25 pt reports for the past month, ever since having a cold, she has chills during the night, nausea that comes and goes, little appetite, mild constipation, and no fever, but feels feverish. Pt states that she went to the ER and her pcp Dr Bonilla, who both ran all kinds of tests and states that everything came back normal. ROS Const Constitutional: No fatigue, fever(s) or weight change ENT ENT: No difficulty swallowing Gastro GI: Positive for constipation and nausea/dyspepsia; No abdominal pain, belching, bloating, change in bowel habits, change in stool character, coffee ground emesis, cramping, diarrhea, heartburn, difficulty swallowing, feeling full early, excessive flatus, incontinent of stools, Vomiting blood/hematemesis, Blood in stool, loose stools, Black,tarry stools, pain with swallowing, vomiting or other Musc Musculoskeletal: No joint pain Skin Skin: No yellowing of the eye or itchy eyes Psych Psychiatric: No anxiety and No depression Endo Endocrine: No fatigue or weight change Aller/Imm Allergy/Immunologic: No itchy eyes Jose/Lymp Hematologic/Lymphatic: Positive for easy bruising; No easy bleeding Exam Const General: cooperative and comfortable Nutritional Appearance: average body habitus and well nourished [facility] Head: normal to inspection Ears: hearing grossly normal bilaterally Nose: external nose normal Face and sinus: normal facial exam Mouth: oral mucosae normal Throat: posterior oropharynx normal Eyes General: appearance normal, both eyes and all related structures Neck Neck: normal visual inspection Chest Chest palpation & inspection: normal inspection of the chest and normal palpation of entire chest wall Resp Effort & Inspection: normal respiratory effort Auscultation: Bilateral: Clear to Auscultation Cardio Palpation: normal PMI Rate: regular rate Rhythm: regular rhythm GI Inspection: normal to inspection Auscultation: normal bowel sounds Percussion: normal to percussion Palpation: no hepatosplenomegaly Skin General: no rashes or lesions noted Neuro General: patient alert Extrem General: normal to inspection Psych Affect: normal affect Assessment and Plan Assessment and Plan (1) Nausea and vomiting: (2) Intermittent dysphagia: Status: Acute Plan: ?Assessment 79-year-old woman with a complex and chronic presentation of gastrointestinal symptoms, including nausea, bloating, abdominal pain, and dysphagia. Given the duration of her symptoms and her long-term antibiotic use, several differential diagnoses must be considered: * Long-term Keflex side effects:?Chronic antibiotic use, especially over one year, can lead to significant gastrointestinal issues due to the disruption of the gut microbiome. Keflex is known to cause nausea, abdominal pain, bloating, and in severe cases,?Clostridioides difficile-associated diarrhea (CDAD). The long duration of therapy and the persistent nature of her symptoms make this a primary consideration. * * Medication-induced esophagitis:?Elderly patients on long-term medication are at an increased risk for pill-induced esophagitis, particularly if they have decreased esophageal motility or don't take medication with enough water. While Keflex is not the most common culprit, her new-onset esophageal dysphagia, in the context of chronic drug use, raises concern. * * Gastroesophageal Reflux Disease (GERD):?Chronic GERD can cause esophagitis and dysphagia. The nausea and bloating could also be related. The long-term antibiotic use could potentially exacerbate reflux or cause esophagitis. * Infectious causes:?Long-term antibiotic therapy can lead to overgrowth of other organisms, such as Clementina esophagitis, which can cause dysphagia, especially in an elderly patient. * Functional dysphagia:?This is a diagnosis of exclusion after structural and motility issues have been ruled out. It's defined by the Blas IV criteria and is characterized by a sensation of food sticking in the chest without an underlying pathology. * * Esophageal stricture or tumor:?While a normal CT scan is reassuring, an upper endoscopy is needed to rule out structural causes of esophageal dysphagia like strictures or malignancy. Plan * Discontinue Keflex:?The patient should have a thorough discussion with her healthcare provider about discontinuing long-term suppressive antibiotic therapy with Keflex, given the potential for gastrointestinal side effects and the risk of developing drug-resistant bacteria. An alternative strategy for preventing recurrent UTIs should be considered. * * Esophagogastroduodenoscopy (EGD):?EGD is warranted to evaluate the esophageal mucosa and gastric lining. This can help identify or rule out esophagitis (including pill-induced or candidal), strictures, or other structural abnormalities contributing to the dysphagia and persistent GI symptoms. Biopsies may be necessary to rule out eosinophilic esophagitis or malignancy. * Trial of Probiotics:?Consider adding a probiotic supplement to help re- establish a healthy gut microbiome following chronic antibiotic exposure, which may help alleviate bloating and abdominal symptoms. * * Symptom Management:?Continue Zofran as needed for nausea. Geomorphologist on dietary modifications, such as eating smaller, more frequent meals and avoiding rich or spicy foods, to manage stomach upset. We will also give her a 2-week cour se of nystatin swish and swallow. Medications: New nystatin swish and swallow 1 mL PO TID 42 mL 0RF 14 days Refilled ondansetron 4 mg PO Q6H PRN 60 tabs 1RF nausea and vomiting Coding Level of Care Code Off vis,est,level 4 Diagnoses Nausea and vomiting R11.2 Intermittent dysphagia R13.19 Clinical Quality Measures Falls Risk Screening/Assistive Devices Have you fallen in the past year?: No 08/18/25 1705 <Electronically signed by Zane mercer DO> Date _ Zane aMtthewignadolfo Signature: Date (if applicable) CC: ~ [facility] Work Phone: [phone] 374-783910-07-2025 [id number] (AGENT OF COVID-19) RNA: Not detected INFLUENZA A RNA: Not detected INFLUENZA B RNA: Not detected RESPIRATORY SYNCYTIAL VIRUS (RSV) RNA: Not detectedGlenbeigh HospitalComment on above:Performed By: #### [id number] ####[facility] LABCLIA [id number] [address]10-07-2025 NoteGlenbeigh Hospital10-04-2025 NoteG[facility] Hospital09-22-2025 NoteG[facility] Hospital09-18-2025 NoteG[facility] Hospital09-18-2025 Note [facility]2025 Discharge summary Author Dominic Diaz [facility] Note Date/Time July 22, 2025 3:15pm [facility] Medical Records Department [address] [place] [id number] Emergency Department Summary 07/22/25 MR#: [id number] Acct: [id number] Name: GREGG FERRIS Rep #:[id number] : 1945 79 From: Dominic Diaz DO PCP: Dr. Rangel Bonilla MD Status:REG ER Location: ED HPI History of Present Illness Chief Complaint: General Illness Narrative Narrative: Patient is a 79-year-old female with a past medical history of GERD, hypertension, hyperlipidemia, PE on warfarin who presents to the emergency department with a chief complaint of not feeling well for the last 1 to 2 weeks. States that off-and-on for the past week she has felt feverish. States that last week she was feeling well saw her doctor they did a chest x-ray that she states was normal however they put her on amoxicillin she states that she took this for 2 days and she felt worse therefore she discontinued this. She notes that today she went for a walk and felt lightheaded and like she might pass out therefore she came here to be further evaluated. Patient states that she will check her temperature on a regular basis when she is feeling feverish and notes that this is normal. Patient denies any sick contacts. [facility] Medical History Viral illness Leukocytosis UTI (urinary tract infection) Cough Post-menopausal Alcohol use History of steroid therapy Easy bruising PONV (postoperative nausea and vomiting) Non-smoker Cardiology follow-up encounter History of echocardiogram History of stress test Hypertension Hx of migraines UTI (urinary tract infection) DDD (degenerative disc disease), lumbar Spinal stenosis Chronic back pain Cystitis GERD (gastroesophageal reflux disease) Infection due to ESBL-producing Escherichia coli Essential (primary) hypertension Hyperlipidemia Home Medications ?Medication ?Instructions ?Recorded ?Last Taken ?Type ascorbic acid (vitamin C) 1,000 mg 1 cap PO QHS vitami n 04/07/22 Unknown History capsule,extended release simvastatin 10 mg tablet 10 mg PO DAILY cholesterol 0 11/08/23 04/04/24 History sumatriptan succinate 100 mg tablet 100 mg PO Q2H PRN migraine headache 11/08/23 Unknown History ondansetron 4 mg disintegrating 4 mg PO TID PRN nausea and 03/24/24 Unknown Rx tablet vomiting #21 tabs amitriptyline 25 mg tablet 25 mg PO QHS #30 tabs 11/08 Unknown Rx cephalexin 250 mg capsule 250 mg PO QHS 11/08/24 Unkno wn History d-mannose 500 mg capsule 2,000 mg PO DAILY 11/08/24 U nknown History cholecalciferol (vitamin D3) 25 25 mcg PO QDAY 5 Unknown History mcg (1,000 unit) capsule vitamins A,C,U-mspz-qvrjvg 4,296 1 cap PO BID 06/06/25 Unknown History mcg-226 mg-90 mg capsule (PreserVision AREDS) warfarin 5 mg tablet 5 mg PO QDAY 06/06/25 Unknow n History ondansetron 4 mg disintegrating 4 mg PO Q6H PRN nausea and 07/22/25 Unknown Rx tablet vomiting #20 tabs Allergy/AdvReac Type Severity Reaction Status Date / Time No Known Allergies Allergy Verified 07/22/25 11:37 Family History Mother Heart disease Father Heart disease Brother Heart disease CAD (coronary artery disease) Surgical History History of back surgery S/P subdural hematoma evacuation History of appendectomy History of laparoscopic cholecystectomy History of hysterectomy Social History household members: spouse housing: house Smoking Status: Never smoker ROS ROS ED ROS Narrative Constitutional: Complains of the feeling of feverish and lightheadedness denies any dizziness, Eyes: Denies double vision blurry vision Cardiovascular: Denies chest pain Respiratory: Denies shortness of breath Abdomen: Complains of nausea denies abdominal pain vomiting diarrhea : Denies urinary symptoms Neurological: Denies numbness, weakness, tingling Musculoskeletal: Denies back pain Skin: Denies any rashes or lesions EXAM Physical Exam Narrative Exam Narrative: General: Patient was lying in bed rest comfortably did not appear to be in acutedistress Head: Atraumatic, normocephalic Eyes: PERRL bilaterally, EOMI bilaterally, no conjunctival injection noted Neck: Soft, supple, trachea midline Cardiovascular: Regular rate and rhythm Respiratory: Clear to auscultation bilaterally Abdomen: Soft, nondistended, no tenderness to palpation Extremities: +5/5 strength noted in the bilateral upper and lower extremities, radial pulses +2/4 in the bilateral extremities Neurological: Patient following commands knew that she was at [facility] the year is 2024 Skin: Warm, dry, intact no rashes or lesions noted Const Vital Signs: 07/22/25 11:37 07/22/25 12:17 07/22/25 12:17 Temperature 98.1 F Temperature Source Oral Pulse Rate 96 Respiratory Rate 18 Respiratory Effort Normal Non-Labored Respiratory Pattern Normal Blood Pressure 157/76 H Blood Pressure Mean 103 Pulse Ox 98 95 Oxygen Delivery Method Room Air Room Air 07/22/25 12:22 07/22/25 13:00 Temperature 98.1 F 98.4 F Temperature Source Oral Oral Pulse Rate 96 88 Respiratory Rate 18 14 Respiratory Effort Respiratory Pattern Blood Pressure 157/76 H 156/120 H Blood Pressure Mean 103 132 Pulse Ox 98 98 Oxygen Delivery Method Room Air Room Air MDM MDM MDM Narrative Medical decision making narrative: Patient is a 79-year-old female who presented to the emergency department chief complaint of generalized not feeling well, lightheadedness. On the differentialdiagnose includes but to ACS, pneumonia, pneumothorax, electrolyte abnormality. Once workup is obtained reviewed she will be reevaluated. Wells' Criteria for Pulmonary Embolism from [employer] on 07/22/2025 All calculations should be rechecked by clinician prior to use RESULT SUMMARY: 0.0 points Low risk group: 1.3% chance of PE in an ED population. Another study assigned scores <= as ?PE Unlikely? and had a 3% incidence of PE. patient? Consider YEARS to avoid unecessary radiation! INPUTS: Clinical signs and symptoms of DVT ?> 0 = No PE is #1 diagnosis OR equally likely ?> 0 = No Heart rate >100 ?> 0 = No Immobilization at least 3 days OR surgery in the previous 4 weeks ?> 0 = No Previous, objectively diagnosed PE or DVT ?> 0 = No Hemoptysis ?> 0 = No Malignancy w/ treatment within 6 months or palliative ?> 0 = No Patient CBC was reviewed which showed a white blood count of 6.8, he was 13.7, platelet count 192. Patient INR is 1.9, PT of 22.5. Patient sodium is 140, potassium normal 3.9, creatinine 0.85. Patient troponin was 12 with a delta troponin of 9. Patient EKG showed sinus rhythm with a rate of 86 bpm this was compared to previous EKG from her April 13, 2025 and was largely unchanged at thatpoint in time. Patient proBNP normal at 67, TSH normal at 0.98. Patient's son brought up the concern for potential UTI therefore urinalysis was added on and this was reviewed which did not show any evidence of infection. Patient's chestx-ray reviewed by myself by radiology which showed no acute cardiopulmonary processes. Patient ambulated well here in the emergency department no hypoxia no tachycardia and felt well. She was advised to keep a close eye in her blood pressure and follow- up with her primary care physician outpatient setting. She was advised that she should obtain a stress test since it has been a significanttime since having 1 of these. She was advised to return with worsening symptomsor any concerns. All question concerns answered she was discharged home in stable condition. Significant other bedside also agreeable this plan. Lab Data Labs: Laboratory Results - last 24 hr 07/22/25 07/22/25 07/22/25 12:20 12:20 12:40 WBC Cancelled 6.8 Corrected WBC Cancelled RBC Cancelled 4.29 Hgb Cancelled 13.7 Hct Cancelled 41.5 MCV Cancelled 96.7 MCH Cancelled 31.9 MCHC Cancelled 33.0 RDW Std Deviation Cancelled 42.8 RDW Coeff of Cecilia Cancelled 12.1 Plt Count Cancelled 192 MPV Cancelled 10.1 Immature Gran % (Auto) Cancelled 0.300 Neut % (Auto) Cancelled 71.1 H Lymph % (Auto) Cancelled 20.9 Dixon % (Auto) Cancelled 6.4 Eos % (Auto) Cancelled 0.7 Baso % (Auto) Cancelled 0.6 Absolute Neuts (auto) Cancelled 4.8 Absolute Lymphs (auto) Cancelled 1.41 Total Counted Cancelled Neutrophils % (Manual) Cancelled Band Neutrophils % Cancelled Lymphocytes % (Manual) Cancelled Monocytes % (Manual) Cancelled Eosinophils % (Manual) Cancelled Basophils % (Manual) Cancelled Metamyelocytes % Cancelled Myelocytes % Cancelled Promyelocytes % Cancelled Blast Cells % Cancelled Plasma Cell % (Manual) Cancelled Other Cells % Cancelled Nucleated RBC % Cancelled 0 Nucleated RBCs/100 WBC Cancelled Differential Comment Cancelled Diff Path Review Cancelled Hypersegmented Neuts Cancelled Atypical Lymphocytes Cancelled Reactive Lymphocytes Cancelled Smudge Cells Cancelled Toxic Granulation Cancelled Toxic Vacuolation Cancelled Dohle Bodies Cancelled Mikel Rods Cancelled Platelet Estimate Cancelled Plt Morphology Comment Cancelled RBC Morphology Cancelled Cancelled Polychromasia Cancelled Hypochromasia Cancelled Basophilic Stippling Cancelled Anisocytosis Cancelled Microcytosis Cancelled Macrocytosis Cancelled Spherocytes Cancelled Sickle Cells Cancelled Target Cells Cancelled Tear Drop Cells Cancelled Ovalocytes Cancelled Stomatocytes Cancelled [place] Bodies Cancelled [place] Cells Cancelled Bite Cells Cancelled Crenated Cell Cancelled Acanthocytes (Spur) Cancelled Rouleaux Cancelled Schistocytes Cancelled PT 22.5 H INR 1.9 APTT 28.0 Sodium 140 Potassium 3.9 Chloride 107 Carbon Dioxide 21.6 Anion Gap 11 BUN 17 Creatinine 0.85 Estim Creat Clear Calc 46.58 L Est GFR (MDRD) Non-Af 69 BUN/Creatinine Ratio 19.8 Glucose 108 H Calcium 9.0 Magnesium 2.1 Troponin T High Sens 12 Troponin T Hi Sens 2 Hr NT pro BNP II 67 TSH 0.988 Urine Color Urine Clarity Urine pH Ur Specific [place] Urine Protein Urine Glucose (UA) Urine Ketones Urine Occult Blood Urine Nitrite Urine Bilirubin Urine Urobilinogen Ur Leukocyte Esterase Urine RBC Urine WBC Ur Squamous Epith Cells Urine Bacteria Urine Mucus Urine Yeast 07/22/25 07/22/25 13:43 14:07 WBC Corrected WBC RBC Hgb Hct MCV MCH MCHC RDW Std Deviation RDW Coeff of Cecilia Plt Count MPV Immature Gran % (Auto) Neut % (Auto) Lymph % (Auto) Dixon % (Auto) Eos % (Auto) Baso % (Auto) Absolute Neuts (auto) Absolute Lymphs (auto) Total Counted Neutrophils % (Manual) Band Neutrophils % Lymphocytes % (Manual) Monocytes % (Manual) Eosinophils % (Manual) Basophils % (Manual) Metamyelocytes % Myelocytes % Promyelocytes % Blast Cells % Plasma Cell % (Manual) Other Cells % Nucleated RBC % Nucleated RBCs/100 WBC Differential Comment Diff Path Review Hypersegmented Neuts Atypical Lymphocytes Reactive Lymphocytes Smudge Cells Toxic Granulation Toxic Vacuolation Dohle Bodies Mikel Rods Platelet Estimate Plt Morphology Comment RBC Morphology Polychromasia Hypochromasia Basophilic Stippling Anisocytosis Microcytosis Macrocytosis Spherocytes Sickle Cells Target Cells Tear Drop Cells Ovalocytes Stomatocytes [place] Bodies Mireya Cells Bite Cells Crenated Cell Acanthocytes (Spur) Rouleaux Schistocytes PT INR APTT Sodium Potassium Chloride Carbon Dioxide Anion Gap BUN Creatinine Estim Creat Clear Calc Est GFR (MDRD) Non-Af BUN/Creatinine Ratio Glucose Calcium Magnesium Troponin T High Sens Troponin T Hi Sens 2 Hr 9 NT pro BNP II TSH Urine Color Yellow Urine Clarity Clear Urine pH 6.0 Ur Specific [place] 1.015 Urine Protein 15 H Urine Glucose (UA) Normal Urine Ketones 5 H Urine Occult Blood 10 H Urine Nitrite Negative Urine Bilirubin Negative Urine Urobilinogen Normal Ur Leukocyte Esterase 100 H Urine RBC 0 SEEN Urine WBC 0-5 SEEN Ur Squamous Epith Cells 5-10 SEEN Urine Bacteria 0 SEEN Urine Mucus 0 SEEN Urine Yeast 1+ Radiography Diagnostic Testing: Clinical Impression(s) from Imaging Studies Chest X-Ray 07/22/25 12:40 IMPRESSION: No acute process is identified in the chest. [facility] T[facility] Chief Complaint: General Illness ED Provider: Dominic Diaz Dx/Rx/DC Orders Clinical Impression: Lightheadedness, Near syncope Prescriptions: New ondansetron 4 mg tablet,disintegrating 4 mg PO Q6H PRN (Reason: nausea and vomiting) Qty: 20 0RF No Action cephalexin 250 mg capsule 250 mg PO QHS d-mannose 500 mg capsule 2,000 mg PO DAILY amitriptyline 25 mg tablet 25 mg PO QHS Qty: 30 0RF warfarin 5 mg tablet 5 mg PO QDAY cholecalciferol (vitamin D3) 25 mcg (1,000 unit) capsule 25 mcg PO QDAY PreserVision AREDS 4,296 mcg-226 mg-90 mg capsule 1 cap PO BID ascorbic acid (vitamin C) 1,000 mg Capsule, Extended Release 1 cap PO QHS sumatriptan succinate 100 mg tablet 100 mg PO Q2H PRN (Reason: migraine headache) simvastatin 10 mg tablet 10 mg PO DAILY ondansetron 4 mg tablet,disintegrating 4 mg PO TID PRN (Reason: nausea and vomiting) Qty: 21 0RF Primary Care Provider: Rangel Bonilla Referrals: Rangel Bonilla MD [Primary Care Provider] - Activity Restrictions/Additional Instructions: Follow-up with your doctors in outpatient setting obtain a stress test in the outpatient setting. Use Zofran as prescribed. Return for worsening symptoms orother concerns. Your blood work did not show any acute findings today. Your urine did not show any evidence of infection. Print Language: Italian Disposition Disposition: Home, Self Care What to do if you have Problems For any increased pain, shortness of breath, bleeding, nausea or vomiting, chestpain, or any unexpected problems, contact your Primary Care Provider. Call [facility] ([phone]) or report to the closest Emergency Room. Call 911 if necessary. 07/22/25 1515 <Electronically signed by Dominic Diaz DO> Cosigner Signature (if applicable): CC: Dr. Rangel Bonilla MD ~ Signed [facility] Work Phone: [phone] Telephone encounter Note* Telephone Encounter - Anita Salazar [facility] - 07/22/2025 5:01 PM EDT Spoke to patient, no d-d interaction with warfarin. Pt verbalized understanding. Kandy MorganDNeelam, CACP [facility]2025 Miscellaneous Notes* Telephone Encounter - Anita Salazar RPh - 07/22/2025 5:01 PM EDT Spoke to patient, no d-d interaction with warfarin. Pt verbalized understanding. Anita Salazar, PharmD., CACP * Telephone Encounter - Issa FarleyQnips GmbHNaye Flanagan - 07/22/2025 4:49 PM EDT PATIENT CALL Patient called call center regarding new medication. Patient/caregiver called and stated Patient was prescribed the following new medication(s) and would like to check for any interactions with warfarin or change in next INR date: Per Pt: Ondansetron 4 mg tablets (not showing in medication list) Has patient started medication(s) and if so, when did they start? No Next INR result currently expected 07/28 via Home [facility]. Patient can be reached at [phone]. PT INR (no units) Date Value 02/14/2025 1.0 INR Home CoaguChek (no units) Date Value 07/14/2025 2.2 07/01/2025 2.3 06/17/2025 1.8 Naye FarleyInspector Optical [employer]) documented in this encounter[facility] Telephone encounter Note * Telephone Encounter - Issa ([employer]aye Flanagan - 07/22/2025 4:49 PM EDT PATIENT CALL Patient called call center regarding new medication. Patient/caregiver called and stated Patient was prescribed the following new medication(s) and would like to check for any interactions with warfarin or change in next INR date: Per Pt: Ondansetron 4 mg tablets (not showing in medication list) Has patient started medication(s) and if so, when did they start? No Next INR result currently expected 07/28 via [facility]. Patient can be reached at [phone]. PT INR (no units) Date Value 02/14/2025 1.0 INR Home CoaguChek (no units) Date Value 07/14/2025 2.2 07/01/2025 2.3 06/17/2025 1.8 Naye Parsons ([employer]) [facility]2025 Telephone encounter Note* Telephone Encounter - Naye Jackson RN - 07/22/2025 4:10 PM EDT Pt called in and reports she was [facility] ER for lightheadedness and near syncope. She states there ER provider said she should get a Stress test ordered as outpatient testing by PCP. Pt scheduled Chance MOROCHO on 07/24/25. Pt ER reports uploaded into chart today. Naye Jackson RN [facility]2025 Miscellaneous Notes* Telephone Encounter - Naye Jackson RN - 07/22/2025 4:10 PM EDT Pt called in and reports she was in [facility] ER for lightheadedness and near syncope. She states there ER provider said she should get a Stress test ordered as outpatient testing by PCP. Pt scheduled Chance MOROCHO on 07/24/25. Pt ER reports uploaded into chart today. Naye Jackson RN documented in this encounterLouis [facility]20[facility] Discharge summary [facility] Medical Records Department [address] [place] [address] Emergency Department Summary 07/22/25 MR#: [id number] Acct: [id number] Name: GREGG FERRIS Rep #:[id number] : 1945 79 From: Dominic Diaz DO PCP: Dr. Rangel Bonilla MD Status:REG ER Location: ED HPI History of Present Illness Chief Complaint: General Illness Narrative Narrative: Patient is a 79-year-old female with a past medical history of GERD, hypertension, hyperlipidemia, PE on warfarin who presents to the emergency department with a chief complaint of not feeling well for the last 1 to 2 weeks. States that off-and-on for the past week she has felt feverish. States that last week she was feeling well saw her doctor they did a chest x-ray that she states was normal however they put her on amoxicillin she states that she took this for 2 days and she felt worse therefore she discontinued this. She notes that today she went for a walk and felt lightheaded and like she might pass out therefore she came here to be further evaluated. Patient states that she will check her temperature on a regular basis when she is feeling feverish and notes that this is normal. Patient denies any sick contacts. [facility] Medical History Viral illness Leukocytosis UTI (urinary tract infection) Cough Post-menopausal Alcohol use History of steroid therapy Easy bruising PONV (postoperative nausea and vomiting) Non-smoker Cardiology follow-up encounter History of echocardiogram History of stress test Hypertension Hx of migraines UTI (urinary tract infection) DDD (degenerative disc disease), lumbar Spinal stenosis Chronic back pain Cystitis GERD (gastroesophageal reflux disease) Infection due to ESBL-producing Escherichia coli Essential (primary) hypertension Hyperlipidemia Home Medications ?Medication ?Instructions ?Recorded ?Last Taken ?Type ascorbic acid (vitamin C) 1,000 mg 1 cap PO QHS vitami n 04/07/22 Unknown History capsule,extended release simvastatin 10 mg tablet 10 mg PO DAILY cholesterol 0 11/08/23 04/04/24 History sumatriptan succinate 100 mg tablet 100 mg PO Q2H PRN migraine headache 11/08/23 Unknown History ondansetron 4 mg disintegrating 4 mg PO TID PRN nausea and 03/24/24 Unknown Rx tablet vomiting #21 tabs amitriptyline 25 mg tablet 25 mg PO QHS #30 tabs 11/08 Unknown Rx cephalexin 250 mg capsule 250 mg PO QHS 11/08/24 Unkno wn History d-mannose 500 mg capsule 2,000 mg PO DAILY 11/08/24 U nknown History cholecalciferol (vitamin D3) 25 25 mcg PO QDAY 5 Unknown History mcg (1,000 unit) capsule vitamins A,C,X-seyy-kiomqm 4,296 1 cap PO BID 06/06/25 Unknown History mcg-226 mg-90 mg capsule (PreserVision AREDS) warfarin 5 mg tablet 5 mg PO QDAY 06/06/25 Unknow n History ondansetron 4 mg disintegrating 4 mg PO Q6H PRN nausea and 07/22/25 Unknown Rx tablet vomiting #20 tabs Allergy/AdvReac Type Severity Reaction Status Date / Time No Known Allergies Allergy Verified 07/22/25 11:37 Family History Mother Heart disease Father Heart disease Brother Heart disease CAD (coronary artery disease) Surgical History History of back surgery S/P subdural hematoma evacuation History of appendectomy History of laparoscopic cholecystectomy History of hysterectomy Social History household members: spouse housing: house Smoking Status: Never smoker ROS ROS ED ROS Narrative Constitutional: Complains of the feeling of feverish and lightheadedness denies any dizziness, Eyes: Denies double vision blurry vision Cardiovascular: Denies chest pain Respiratory: Denies shortness of breath Abdomen: Complains of nausea denies abdominal pain vomiting diarrhea : Denies urinary symptoms Neurological: Denies numbness, weakness, tingling Musculoskeletal: Denies back pain Skin: Denies any rashes or lesions EXAM Physical Exam Narrative Exam Narrative: General: Patient was lying in bed rest comfortably did not appear to be in acutedistress Head: Atraumatic, normocephalic Eyes: PERRL bilaterally, EOMI bilaterally, no conjunctival injection noted Neck: Soft, supple, trachea midline Cardiovascular: Regular rate and rhythm Respiratory: Clear to auscultation bilaterally Abdomen: Soft, nondistended, no tenderness to palpation Extremities: +5/5 strength noted in the bilateral upper and lower extremities, radial pulses +2/4 in the bilateral extremities Neurological: Patient following commands knew that she was at [facility] the year is 2024 Skin: Warm, dry, intact no rashes or lesions noted Const Vital Signs: 07/22/25 11:37 07/22/25 12:17 07/22/25 12:17 Temperature 98.1 F Temperature Source Oral Pulse Rate 96 Respiratory Rate 18 Respiratory Effort Normal Non-Labored Respiratory Pattern Normal Blood Pressure 157/76 H Blood Pressure Mean 103 Pulse Ox 98 95 Oxygen Delivery Method Room Air Room Air 07/22/25 12:22 07/22/25 13:00 Temperature 98.1 F 98.4 F Temperature Source Oral Oral Pulse Rate 96 88 Respiratory Rate 18 14 Respiratory Effort Respiratory Pattern Blood Pressure 157/76 H 156/120 H Blood Pressure Mean 103 132 Pulse Ox 98 98 Oxygen Delivery Method Room Air Room Air MDM MDM MDM Narrative Medical decision making narrative: Patient is a 79-year-old female who presented to the emergency department chief complaint of generalized not feeling well, lightheadedness. On the differentialdiagnose includes but to ACS, pneumonia,pneumothorax, electrolyte abnormality. Once workup is obtained reviewed she will be reevaluated. Wells' Criteria for Pulmonary Embolism from [email or web address] on 07/22/2025 All calculations should be rechecked by clinician prior to use RESULT SUMMARY: 0.0 points Low risk group: 1.3% chance of PE in an ED population. Another study assigned scores <= as ?PE Unlikely? and had a 3% incidence of PE. patient? Consider YEARS to avoid unecessary radiation! INPUTS: Clinical signs and symptoms of DVT ?> 0 = No PE is #1 diagnosis OR equally likely ?> 0 = No Heart rate >100 ?> 0 = No Immobilization at least 3 days OR surgery in the previous 4 weeks ?> 0 = No Previous, objectively diagnosed PE or DVT ?> 0 = No Hemoptysis ?> 0 = No Malignancy w/ treatment within 6 months or palliative ?> 0 = No Patient CBC was reviewed which showed a white blood count of 6.8, he was 13.7, platelet count 192. Patient INR is 1.9, PT of 22.5. Patient sodium is 140, potassium normal 3.9, creatinine 0.85. Patient troponin was 12 with a delta troponin of 9. Patient EKG showed sinus rhythm with a rate of 86 bpm this was compared to previous EKG from her April 13, 2025 and was largely unchanged at thatpoint in time. Patient proBNP normal at 67, TSH normal at 0.98. Patient's son brought up the concern for potential UTI therefore urinalysis was added on and this was reviewed which did not show any evidence of infection. Patient's chestx-ray reviewed by myself by radiology which showed no acute cardiopulmonary processes. Patient ambulated well here in the emergency department no hypoxia no tachycardia and felt well. She was advised to keep a close eye in her blood pressure and follow-up with her primary care physician outpatient setting. She was advised that she should obtain a stress test since it has been a signif icanttime since having 1 of these. She was advised to return with worsening symptomsor any concerns. All question concerns answered she was discharged home in stable condition. Significant other bedside also agreeable this plan. Lab Data Labs: Laboratory Results - last 24 hr 07/22/25 07/22/25 07/22/25 12:20 12:20 12:40 WBC Cancelled 6.8 Corrected WBC Cancelled RBC Cancelled 4.29 Hgb Cancelled 13.7 Hct Cancelled 41.5 MCV Cancelled 96.7 MCH Cancelled 31.9 MCHC Cancelled 33.0 RDW Std Deviation Cancelled 42.8 RDW Coeff of Cecilia Cancelled 12.1 Plt Count Cancelled 192 MPV Cancelled 10.1 Immature Gran % (Auto) Cancelled 0.300 Neut % (Auto) Cancelled 71.1 H Lymph % (Auto) Cancelled 20.9 Dixon % (Auto) Cancelled 6.4 Eos % (Auto) Cancelled 0.7 Baso % (Auto) Cancelled 0.6 Absolute Neuts (auto) Cancelled 4.8 Absolute Lymphs (auto) Cancelled 1.41 Total Counted Cancelled Neutrophils % (Manual) Cancelled Band Neutrophils % Cancelled Lymphocytes % (Manual) Cancelled Monocytes % (Manual) Cancelled Eosinophils % (Manual) Cancelled Basophils % (Manual) Cancelled Metamyelocytes % Cancelled Myelocytes % Cancelled Promyelocytes % Cancelled Blast Cells % Cancelled Plasma Cell % (Manual) Cancelled Other Cells % Cancelled Nucleated RBC % Cancelled 0 Nucleated RBCs/100 WBC Cancelled Differential Comment Cancelled Diff Path Review Cancelled Hypersegmented Neuts Cancelled Atypical Lymphocytes Cancelled Reactive Lymphocytes Cancelled Smudge Cells Cancelled Toxic Granulation Cancelled Toxic Vacuolation Cancelled Dohle Bodies Cancelled Mikel Rods Cancelled Platelet Estimate Cancelled Plt Morphology Comment Cancelled RBC Morphology Cancelled Cancelled Polychromasia Cancelled Hypochromasia Cancelled Basophilic Stippling Cancelled Anisocytosis Cancelled Microcytosis Cancelled Macrocytosis Cancelled Spherocytes Cancelled Sickle Cells Cancelled Target Cells Cancelled Tear Drop Cells Cancelled Ovalocytes Cancelled Stomatocytes Cancelled [place] Bodies Cancelled [place] Cells Cancelled Bite Cells Cancelled Crenated Cell Cancelled Acanthocytes (Spur) Cancelled Rouleaux Cancelled Schistocytes Cancelled PT 22.5 H INR 1.9 APTT 28.0 Sodium 140 Potassium 3.9 Chloride 107 Carbon Dioxide 21.6 Anion Gap 11 BUN 17 Creatinine 0.85 Estim Creat Clear Calc 46.58 L Est GFR (MDRD) Non-Af 69 BUN/Creatinine Ratio 19.8 Glucose 108 H Calcium 9.0 Magnesium 2.1 Troponin T High Sens 12 Troponin T Hi Sens 2 Hr NT pro BNP II 67 TSH 0.988 Urine Color Urine Clarity Urine pH Ur Specific [place] Urine Protein Urine Glucose (UA) Urine Ketones Urine Occult Blood Urine Nitrite Urine Bilirubin Urine Urobilinogen Ur Leukocyte Esterase Urine RBC Urine WBC Ur Squamous Epith Cells Urine Bacteria Urine Mucus Urine Yeast 07/22/25 07/22/25 13:43 14:07 WBC Corrected WBC RBC Hgb Hct MCV MCH MCHC RDW Std Deviation RDW Coeff of Cecilia Plt Count MPV Immature Gran % (Auto) Neut % (Auto) Lymph % (Auto) Dixon % (Auto) Eos % (Auto) Baso % (Auto) Absolute Neuts (auto) Absolute Lymphs (auto) Total Counted Neutrophils % (Manual) Band Neutrophils % Lymphocytes % (Manual) Monocytes % (Manual) Eosinophils % (Manual) Basophils % (Manual) Metamyelocytes % Myelocytes % Promyelocytes % Blast Cells % Plasma Cell % (Manual) Other Cells % Nucleated RBC % Nucleated RBCs/100 WBC Differential Comment Diff Path Review Hypersegmented Neuts Atypical Lymphocytes Reactive Lymphocytes Smudge Cells Toxic Granulation Toxic Vacuolation Dohle Bodies Mikel Rods Platelet Estimate Plt Morphology Comment RBC Morphology Polychromasia Hypochromasia Basophilic Stippling Anisocytosis Microcytosis Macrocytosis Spherocytes Sickle Cells Target Cells Tear Drop Cells Ovalocytes Stomatocytes [place] Bodies Mireya Cells Bite Cells Crenated Cell Acanthocytes (Spur) Rouleaux Schistocytes PT INR APTT Sodium Potassium Chloride Carbon Dioxide Anion Gap BUN Creatinine Estim Creat Clear Calc Est GFR (MDRD) Non-Af BUN/Creatinine Ratio Glucose Calcium Magnesium Troponin T High Sens Troponin T Hi Sens 2 Hr 9 NT pro BNP II TSH Urine Color Yellow Urine Clarity Clear Urine pH 6.0 Ur Specific [place] 1.015 Urine Protein 15 H Urine Glucose (UA) Normal Urine Ketones 5 H Urine Occult Blood 10 H Urine Nitrite Negative Urine Bilirubin Negative Urine Urobilinogen Normal Ur Leukocyte Esterase 100 H Urine RBC 0 SEEN Urine WBC 0-5 SEEN Ur Squamous Epith Cells 5-10 SEEN Urine Bacteria 0 SEEN Urine Mucus 0 SEEN Urine Yeast 1+ Radiography Diagnostic Testing: Clinical Impression(s) from Imaging Studies Chest X-Ray 07/22/25 12:40 IMPRESSION: No acute process is identified in the chest. [facility] Triage Chief Complaint: General Illness ED Provider: Dominic Diaz Dx/Rx/DC Orders Clinical Impression: Lightheadedness, Near syncope Prescriptions: New ondansetron 4 mg tablet,disintegrating 4 mg PO Q6H PRN (Reason: nausea and vomiting) Qty: 20 0RF No Action cephalexin 250 mg capsule 250 mg PO QHS d-mannose 500 mg capsule 2,000 mg PO DAILY amitriptyline 25 mg tablet 25 mg PO QHS Qty: 30 0RF warfarin 5 mg tablet 5 mg PO QDAY cholecalciferol (vitamin D3) 25 mcg (1,000 unit) capsule 25 mcg PO QDAY PreserVision AREDS 4,296 mcg-226 mg-90 mg capsule 1 cap PO BID ascorbic acid (vitamin C) 1,000 mg Capsule, Extended Release 1 cap PO QHS sumatriptan succinate 100 mg tablet 100 mg PO Q2H PRN (Reason: migraine headache) simvastatin 10 mg tablet 10 mg PO DAILY ondansetron 4 mg tablet,disintegrating 4 mg PO TID PRN (Reason: nausea and vomiting) Qty: 21 0RF Primary Care Provider: Rangel Bonilla Referrals: Rangel Bonilla MD [Primary Care Provider] - Activity Restrictions/Additional Instructions: Follow-up with your doctors in outpatient setting obtain a stress test in the outpatient setting. Use Zofran as prescribed. Return for worsening symptoms orother concerns. Your blood work did not show any acute findings today. Your urine did not show any evidence of infection. Print Language: Italian Disposition Disposition: Home, Self Care What to do if you have Problems For any increased pain, shortness of breath, bleeding, nausea or vomiting, chestpain, or any unexpected problems, contact your Primary Care Provider. Call [facility] ([phone]) or report tothe closest Emergency Room. Call 911 if necessary. 07/22/25 1515 Cosigner Signature (if applicable): CC: Dr. Rangel Bonilla MD ~ Signed [facility]2025 Radiology Diagnostic study note [facility] Imaging Services [address] [place] [address] [id number] Chest PA and Lateral MR#: [id number] Acct: [id number] Name: GREGG FERRIS Rep #: [id number] : 1945 F 79 From: Jaclyn Roe MD PCP: Dr. Rangel Bonilla MD Status: REG ER Study:Chest PA and Lateral Date of Exam: 07/22/25 Exam# [id number] Ordering Dr: Noelle Diaz DO PROCEDURE: CHEST PA AND LATERAL 07/22/2025 REASON FOR EXAM: NEAR SYNCOPE TECHNIQUE: Procedure Code: RADCXR Modality: DX Procedure: CHEST PA AND LATERAL COMPARISON: April 08, 2024 FINDINGS: Heart size is within normal limits. There is no focal infiltrate or consolidation. There is no pneumothorax or effusion. There is no acute bony abnormality. Aortic calcifications are noted. Hardware is visible in the lumbar region. RAD/Chest PA and Lateral IMPRESSION: No acute process is identified in the chest. Reading Location: [facility] CC: Dr. Rangel Bonilla MD; Dr. Dominic Diaz DO ~ Advertising Executive: Signed [facility]09-08-2025 Telephone encounter Note* Telephone Encounter - Agustin Shepard [facility] - 07/14/2025 9:31 AM EDT [facility] Ambulatory Pharmacy Anticoagulation Clinic Anticoagulation Episode Summary Anticoagulation Care Providers Provider Role Specialty Phone number Rangel Bonilla MD Referring Family Medicine [phone] Gregg Ferris is a 79 year old year old female patient being evaluated today for a Telemanagement visit. Patient is currently on the following anticoagulant(s) Warfarin. Labs PT INR (no units) Date Value 02/14/2025 1.0 INR Home CoaguChek (no units) Date Value 07/14/2025 2.2 07/01/2025 2.3 06/17/2025 1.8 Hemoglobin (g/dL) Date Value 02/14/2025 13.8 01/28/2021 15.6 Hematocrit (%) Date Value 02/14/2025 43.4 01/28/2021 48.3 Platelet Count (k/uL) Date Value 02/14/2025 220 01/28/2021 239 Creatinine (mg/dL) Date Value 02/14/2025 0.76 01/16/2025 0.68 01/17/2024 0.79 10/18/2021 0.74 04/09/2021 0.82 10/05/2020 0.73 Bilirubin, Total (mg/dL) Date Value 02/14/2025 0.5 10/18/2021 0.4 ALT (U/L) Date Value 02/14/2025 12 10/18/2021 11 AST (U/L) Date Value 02/14/2025 19 10/18/2021 16 Estimated Creatinine Clearance: 52 mL/min (based on SCr of 0.76 mg/dL). ALLERGIES Allergen Reactions Willis Inhibitors Cough Carafate [Sucralfat* Diarrhea Eliquis [Apixaban] Other: See Comments Nausea, decreased appetite and chills Protonix [Pantopraz* Other: See Comments Stomach pain Xarelto [Rivaroxaba* Other: See Comments lack of energy, very fatigued, diarrhea, nausea, lack of appetite. Indication for Warfarin: History of pulmonary embolus (pe) care home (current) use of anticoagulants Anticoagulation Episode Summary Current INR goal: 2.0-3.0 Assessment: INR result of 2.2 is therapeutic Plan: Current Warfarin Dosing As of 07/14/2025 Full warfarin instructions: 5 mg every day Sent [employer] message Advised patient to continue current weekly dose as noted above Next INR check due on 07/28/2025 Agustin Shepard RPh Clinical Pharmacist, Pharmacy Anticoagulation Clinic Pharmacy Anticoagulation Clinic Pager: [phone]. [facility]09-08-2025 Miscellaneous Notes* Telephone Encounter - Agustin Shepard RPh - 07/14/2025 9:31 AM EDT [facility] Ambulatory Pharmacy Anticoagulation Clinic Anticoagulation Episode Summary Anticoagulation Care Providers Provider Role Specialty Phone number Rangel Bonilla MD Referring Family Medicine [phone] Gregg Ferris is a 79 year old year old female patient being evaluated today for a Telemanagement visit. Patient is currently on the following anticoagulant(s) Warfarin. Labs PT INR (no units) Date Value 02/14/2025 1.0 INR Home CoaguChek (no units) Date Value 07/14/2025 2.2 07/01/2025 2.3 06/17/2025 1.8 Hemoglobin (g/dL) Date Value 02/14/2025 13.8 01/28/2021 15.6 Hematocrit (%) Date Value 02/14/2025 43.4 01/28/2021 48.3 Platelet Count (k/uL) Date Value 02/14/2025 220 01/28/2021 239 Creatinine (mg/dL) Date Value 02/14/2025 0.76 01/16/2025 0.68 01/17/2024 0.79 10/18/2021 0.74 04/09/2021 0.82 10/05/2020 0.73 Bilirubin, Total (mg/dL) Date Value 02/14/2025 0.5 10/18/2021 0.4 ALT (U/L) Date Value 02/14/2025 12 10/18/2021 11 AST (U/L) Date Value 02/14/2025 19 10/18/2021 16 Estimated Creatinine Clearance: 52 mL/min (based on SCr of 0.76 mg/dL). ALLERGIES Allergen Reactions Willis Inhibitors Cough Carafate [Sucralfat* Diarrhea Eliquis [Apixaban] Other: See Comments Nausea, decreased appetite and chills Protonix [Pantopraz* Other: See Comments Stomach pain Xarelto [Rivaroxaba* Other: See Comments lack of energy, very fatigued, diarrhea, nausea, lack of appetite. 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 documented in this encounterLouis [facility] Telephone encounter Note * Telephone Encounter - Ana Mott MA - 07/11/2025 4:20 PM EDT [employer] message with instructions below read by patient. Ana Mott MA [facility]09-05-2025 Miscellaneous Notes* Telephone Encounter - Ana Mott MA - 07/11/2025 4:20 PM EDT [employer]onna message with instructions below read by patient. Ana Mott MA * Telephone Encounter - Sussy Gann MA - 07/10/2025 10:52 AM EDT Message left for pt to call back for results. Sussy Gann MA * Telephone Encounter - Rangel Bonilla MD - 07/09/2025 8:18 PM EDT Let patient know orders for diagnostic left mammogram and US are placed and can be set up to be done in 6 months. * Result Encounter Note - Lorri Clark DO - 07/09/2025 4:48 PM EDT Can let her know the mammogram and ultrasound showed benign finding in the left breast. Radiology recommended another 6-month follow-up mammogram and ultrasound. Since she is no longer following here, this can be ordered by her PCPs team. documented in this encounterLouis Stokes [facility] Center09-05-2025 Telephone encounter Note * Telephone Encounter - Nikko Carmona RN - 07/11/2025 8:45 AM EDT Pt returned call and given provider's message below with verbalized understanding. Pt agreeable. [facility]09-05-2025 Miscellaneous Notes* Telephone Encounter - Nikko Carmona RN - 07/11/2025 8:45 AM EDT Pt returned call and given provider's message below with verbalized understanding. Pt agreeable. * Telephone Encounter - Rangel Bonilla MD - 07/10/2025 3:06 PM EDT Let patient know her chest x-ray showed nothing acute. I still want her to take the antibiotic. Her COVID, Flu and RSV tests were Neg. documented in this encounterLouis Stokes [facility] Center09-04-2025 Telephone encounter Note * Telephone Encounter - Rangel Bonilla MD - 07/10/2025 3:06 PM EDT Let patient know her chest x-ray showed nothing acute. I still want her to take the antibiotic. Her COVID, Flu and RSV tests were Neg. [facility]09-04-2025 [id number] (AGENT OF COVID-19) RNA: Not detected INFLUENZA A RNA: Not detected INFLUENZA B RNA: Not detected RESPIRATORY SYNCYTIAL VIRUS (RSV) RNA: Not detectedGlenbeigh HospitalComment on above:Performed By: #### [id number] ####[facility] LABCLIA [id number] [address] OF [id number] History of Present illness Narrative* Jacinta Ocampo RT(R) - 07/10/2025 11:30 AM EDT Radiology Service Progress Note PATIENT NAME: Gregg Ferris DATE OF SERVICE: July 10, 2025 TIME: 11:32 AM PATIENT IDENTITY VERIFICATION COMPLETED USING TWO (2) IDENTIFIERS: Name and Date of confirmedby patient verbally. FALL SCREENING: Has the patient had 2 falls in the last year or 1 fall with injury or currently using an Ambulatory Assistive Device (Walker, Cane, Wheelchair, Crutches, etc.)? No PATIENT GENDER DATA: Assigned female at . status: : No status:NO. PATIENT RELEVANT IMPLANT DATA REVIEWED: Yes PATIENT PRESENTS WITH AN IMPLANTABLE OR ATTACHED KENNEL STAFF MEMBER: No RADIOLOGY DEPARTMENT: General X-ray: Exam(s) Completed: Chest X-Ray PERIPHERAL IV DATA: Not applicable SIGNED BY: Jacinta Ocampo, RT(R) July 10, 2025 11:32 AM documented in this encounterLouis Stokes [facility] Center09-04-2025 NoteGlenbeigh Hospital09-04-2025 Instructions* Patient Instructions* Rangel Bonilla MD - 07/10/2025 11:25 AM EDT Due to the antibiotic you have been placed on check your home INR on 07/13/2025 documented in this encounterLouis Stokes [facility]09-04-2025 Telephone encounter Note * Telephone Encounter - Sussy Gann MA - 07/10/2025 10:52 AM EDT Message left for pt to call back for results. Sussy Gann MA [facility]09-04-2025 History of Present illness Narrative* Rangel Bonilla MD - 07/10/2025 10:40 AM EDT Chief Complaint Patient presents with: Cold: Cough, congestion HPI Gregg Ferris is a 79 year old female who presents here today for a same day visit. Patient here today with complaints of cough and congestion. Was seen in on 07/08/25 and had testing completed, which was negative, but no XR completed. Patient reports symptoms for the past 5 days, feeling like she's dragging. States cough and sinus congestion worsening over the past few days. Shewas up all night coughing, has fatigue, slight right ear pain, minor shortness of breath, and wheezing. Denies any fever. Has been using Tylenol for symptoms. Patient reports hx of blood clots in her lungs, so she wanted to make sure she got checked. Gregg Ferris is an 79-year-old female, with a history of a blood clot on warfarin, presenting with URI symptoms. Gregg reports onset of URI symptoms around Monday or Monday, including a persistent cough, rhinorrhea with clear discharge, and right otalgia. She denies productive cough, post-nasaldrip, pharyngitis, facial pain, dental pain, nausea, emesis, or diarrhea. She has experienced intermittent feverish sensations, with a recorded temperature of 99 degreeF today using a forehead thermometer, and chills. She also reports generalized myalgia. She visited urgent care a few days ago, where COVID-19, RSV, and influenza tests were performed, all of which returned negative results. She was informed that the tests might have been conducted too early in the course of the illness, potentially leading to false negatives. Gregg is currently on warfarin and is cautious about medication interactions. She took one dose of Cold-Eeze, which provided some relief from her cough. She inquires about the safety of Cold-Eeze andrequests a stronger cough suppressant for nighttime use. She has previously used benzonatate 100 mgcapsules with minimal relief and is interested in a higher dose. She expresses concern about potential interactions between her current medications and any new treatments, including antibiotics and Paxlovid. She has been advised by a pharmacist to monitor her INR after 3 days of starting any new medication. She inquires about the timing of her next INR test and is informed that there is a standing order for INR testing valid for one year, placed on 03/21. Past medical history, appointments, medications, allergies reviewed. 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 Duarte at [facility]. 08/18/[address] Fischer at [place] Chronic throat clearing 02/01/2018 Ectopic gastric mucosa of multiple sites 05/06/[address] Granado 04/2022 Elevated fasting blood sugar 08/14/2018 Encounter for gynecological examination without abnormal finding 07/20/2016 Sees [facility]. Essential hypertension 07/20/2016 GERD without esophagitis 01/14/2008 Hemorrhoids 03/03/2017 Hiatal hernia History of pulmonary embolus (PE) 04/08/202404/2024: 4 of them History of pulmonary embolus (PE) 04/08/202404/2024: 4 of them, to be on anticoagulation for 6 months. History of pulmonary embolus (PE) 04/08/202404/2024: 4 of them, per pulm needs chronic anticoagulation. History of recurrent UTIs 07/19/2018 History of subdural hematoma 03/03/2017 After a fall Hypoxia 04/15/2024 After PE's 04/2024 Lichen sclerosus et atrophicus 03/03/2017 Living will on file at physician's office 01/16/2023 DPA: Nate (Son) Saebago 03/21/[address] Duarte at [facility]. Medicare annual wellness visit, subsequent 08/14/2018 Medicare Part B: 06/06/2008 last done: 08/23/2019 Migraine without aura and without status migrainosus, not intractable 07/20/2016 Mixed hyperlipidemia 01/14/2008 Postmenopausal atrophic vaginitis 06/06/2012 Pulmonary nodules 10/03/201609/2016, follow uo CT in a year, 08/[address] Zheng Right thyroid nodule 10/03/2016 Had benign biopsy 09/2016 at [facility] Seasonal allergies 07/20/2016 Sinus arrhythmia Spinal stenosis, lumbar region, without neurogenic claudication 03/21/2012 Previous Surgical History PAST SURGICAL HISTORY Procedure Laterality Date 2D ECHO (EXEP) 09/2016 EF=65%, mild 1+ MR, TR APPENDECTOMY BACK SURGERY HX BRAIN SURGERY HX 2000 Brain bleed COLONOSCOPY 04/29/2013 Dr. Lu, repeat 10 years ESOPHAGOGASTRODUODENOSCOPY TRANSORAL DIAGNOSTIC 06/22/2020 EGD HEMORRHOIDECTOMY XTRNL 2/> COLUMN/GROUP IMMUNOCHEMICAL FECAL OCCULT BLOOD TEST 10/27/2021 negative LAPAROSCOPY SURG CHOLECYSTECTOMY 2002 Cholecystectomy, lap PAST [...] of Onset Coronary Artery Disease Mother Fatal [place] in her 80s Diabetes Father ADULT ONSET [...] Protonix [Pantopraz* Other: See Comments Stomach pain Xarelto [Rivaroxaba* Other: See Comments lack of energy, very fatigued, diarrhea, nausea, lack of appetite. Current Medications Current Outpatient Medications on File Prior to Visit Medication Sig warfarin (COUMADIN) 5 mg tablet 1.5 tabs for three days and then go to taking 1.5 tabs on , satand 1 tab all other days. simvastatin (ZOCOR) 10 mg tablet Take 1 tablet by mouth daily at bedtime. famotidine (PEPCID) 20 mg tablet Take 20 mg by mouth daily at bedtime. Per Dr. Granado Cholecalciferol, Vitamin D3, (VITAMIN D-3) 50 mcg (2,000 unit) cap Take 1 capsule by mouth once daily. ondansetron orally disintegrating (ZOFRAN ODT) 4 mg disintegrating tablet Take 1 tablet by mouth every 8 hours as needed for nausea/vomiting. estradiol (ESTRACE) 0.01 % (0.1 mg/gram) vaginal cream Use 1 g vaginally every other day. At bedtime SUMAtriptan (IMITREX) 100 mg tablet Take one tab by month with onset of headache. Can repeat in 2 hrs. Max of 2 tabs in 24 hrs No current facility-administered medications on file prior to visit. Social History SOCIAL HISTORY[1] Review of Symptoms REVIEW OF SYSTEMS SEE HPI EXAM: BP 162/98 (BP Site: Right Arm, BP Position: Sitting, BP Cuff Size: Regular Adult) Pulse 108 Temp 37.2 C (99 F) (Tympanic) Resp 18 Wt 63 kg (139 lb) SpO2 96% BMI 24.62 kg/m General Appearance: Appears to not be feeing well, alert, in no acute distress, well-hydrated, wellnourished.. Eyes: Anicteric sclera. Pupils are equally round and reactive to light. Extraocular movements are intact. . Ears: External ears normal, canals clear. Right TM is slightly bulging but normal light reflex, no erythema Nose/Sinuses: Nares normal, septum midline, mucosa normal, no drainage or sinus tenderness. Oropharynx: Lips, mucosa, and tongue normal, teeth and gums normal, oropharynx with scant post nasal drainage. Neck: Supple, no adenopathy; thyroid symmetric, normal size, no bruits. Lungs: faint crackles in the RLL and DARWIN. Breath sounds equal throughout. . Heart: RRR without murmur, gallop, or rubs. No ectopy. Abdomen: Normal abdominal exam, Abdomen soft, non-tender. Bowel sounds normal. No masses, organomegaly. Health Maintenance List Influenza Vaccine(1) due on 07/07/2025 Anxiety Screening due on 08/21/2025 Depression Screening due on 02/26/2026 Medicare Annual Wellness Visit due on 02/26/2026 Diabetes Screening due on 02/15/2028 DTaP,Tdap,Td Vaccine(3 - Td or Tdap) due on 09/09/2028 Bone Density Screening Completed Advance Directive Discussion Completed RSV Vaccine Completed Shingrix Vaccine Completed Pneumococcal Vaccine: 50+ Completed Colorectal Cancer Screening Discontinued Data reviewed Assessment and Plan 1. Bacterial pneumonia (J15.9) 2. Abnormal lung sounds (R09.89) 3. URI, acute (J06.9) Acute URI with persistent cough, rhinorrhea, low-grade fever, chills, myalgia, and right ear ache. Exam notable for faint crackles at right lung base and upper left lung field. Differential includes bronchitis and early pneumonia; COVID, RSV, and influenza tests were negative at urgent care, but may have been performed too early in the course. - Ordered chest X-ray. - Start antibiotic, Augmentin 875 mg BID, with low interaction risk with warfarin; instructed to check INR after 3 days of antibiotic therapy. - Start benzonatate 200 mg Q8 hrs prn, at higher dose for cough suppression at night. - Advised to monitor for increased bruising or bleeding and to go to the ER if these occur. - Advised to defer flu vaccination until current illness resolves. - COVID test sent; if positive, will initiate treatment and adjust warfarin as needed. Requested Prescriptions Signed Prescriptions Disp Refills Benzonatate 200 mg capsule 45 capsule 1 Sig: Take 1 capsule by mouth three times a day as needed. amoxicillin-clavulanate potassium (AUGMENTIN) 875-125 mg per tablet 20 tablet 0 Sig: Take 1 tablet by mouth every 12 hours for 10 days. F/u if not improving. Rangel Bonilla MD Recording using wedgies software for draft documentation of the visit was discussed with the patient/authorized dental sales representative; all questions welcomed and answered. Patient/authorized dental sales representative agreed to proceed [1] Social History Tobacco Use Smoking status: Never Passive exposure: Never Smokeless tobacco: Never Tobacco comments: No smoking in childhood home. No significant ETS in household since. Vaping Use Vaping status: Never Used Substance Use Topics Alcohol use: Yes Alcohol/week: 1.0 standard drink of alcohol Types: 1 Glasses of Wine (5oz) per week Comment: socially Drug use: No documented in this encounterLouis Stokes Cleveland [facility] Center09-04-2025 NoteGlenbeigh Hospital09-03-2025 Telephone encounter Note* Telephone Encounter - Rangel Bonilla MD - 07/09/2025 8:18 PM EDT Let patient know orders for diagnostic left mammogram and US are placed and can be set up to be done in 6 months. [facility]09-03-2025 Progress note* Result Encounter Note - Lorri Clark DO - 07/09/2025 4:48 PM EDT Can let her know the mammogram and ultrasound showed benign finding in the left breast. Radiology recommended another 6-month follow-up mammogram and ultrasound. Since she is no longer following here, this can be ordered by her PCPs team. [facility] Work Phone: 1(113) 740-811809-03-2025 History of Present illness Narrative* Nelda Juarez RDMS - 07/09/2025 8:30 AM EDT Radiology Service Progress Note PATIENT NAME: Gregg Ferris DATE OF SERVICE: July 09, 2025 TIME: 9:26 AM PATIENT IDENTITY VERIFICATION COMPLETED USING TWO (2) IDENTIFIERS: Name and Date of confirmedby patient verbally. FALL SCREENING: Has the patient had 2 falls in the last year or 1 fall with injury or currently using an Ambulatory Assistive Device (Walker, Cane, Wheelchair, Crutches, etc.)? No PATIENT GENDER DATA: Assigned female at . status: : No status:NO. PATIENT RELEVANT IMPLANT DATA REVIEWED: Not Applicable PATIENT PRESENTS WITH AN IMPLANTABLE OR ATTACHED KENNEL STAFF MEMBER: No RADIOLOGY DEPARTMENT: Ultrasound PERIPHERAL IV DATA: Not applicable SIGNED BY: Nelda Juarez RDMS July 09, 2025 9:26 AM documented in this encounterLouis Stokes Cleveland [facility] Center09-03-2025 NoteGlenbeigh Hospital09-03-2025 History of Present illness Narrative* Kimberly Juarez RT(Elmer) - 07/09/2025 8:00 AM EDT Radiology Service Progress Note PATIENT NAME: Gregg Ferris DATE OF SERVICE: July 09, 2025 TIME: 8:38 AM PATIENT IDENTITY VERIFICATION COMPLETED USING TWO (2) IDENTIFIERS: Name and Date of confirmedby patient verbally. FALL SCREENING: Has the patient had 2 falls in the last year or 1 fall with injury or currently using an Ambulatory Assistive Device (Walker, Cane, Wheelchair, Crutches, etc.)? No PATIENT GENDER DATA: Assigned female at . status: : No status:NO. PATIENT RELEVANT IMPLANT DATA REVIEWED: Not Applicable PATIENT PRESENTS WITH AN IMPLANTABLE OR ATTACHED KENNEL STAFF MEMBER: No RADIOLOGY DEPARTMENT: Mammography PERIPHERAL IV DATA: Not applicable SIGNED BY: RT Aj(Elmer) July 09, 2025 8:38 AM documented in this encounterLouis Stokes Cleveland [facility] Center09-03-2025 NoteGlenbeigh Hospital09-02-2025 Telephone encounter Note* Telephone Encounter - Alyssa Chowdhury RPh - 07/08/2025 4:46 PM EDT Called and spoke to patient. Advised no interaction with warfarin and tessalon perles. Advised she take the tessalon perles rather than the Nyquil due to her age and possible side effects and also overlapping indication with the tessalon perles. Advised tessalon is more of a cough suppressant vs. Guaifenesin which is going to help loosen the phlegm and expectorate the phlegm. She wants to suppress her cough. Advised she may not need the coldeze anymore, but there is not an interaction with warfarin. Patient's covid test is still pending. If she starts on the Paxlovid would recommend INR test 3 days after starting on the medication. Currently next INR due on 07/15/25 at the lab. Patient verbalized understanding. Alyssa Chowdhury PharmNeelam D. [facility]09-02-2025 Miscellaneous Notes* Telephone Encounter - Alyssa Chowdhury RPh - 07/08/2025 4:46 PM EDT Called and spoke to patient. Advised no interaction with warfarin and tessalon perles. Advised she take the tessalon perles rather than the Nyquil due to her age and possible side effects and also overlapping indication with the tessalon perles. Advised tessalon is more of a cough suppressant vs. Guaifenesin which is going to help loosen the phlegm and expectorate the phlegm. She wants to suppress her cough. Advised she may not need the coldeze anymore, but there is not an interaction with warfarin. Patient's covid test is still pending. If she starts on the Paxlovid would recommend INR test 3 days after starting on the medication. Currently next INR due on 07/15/25 at the lab. Patient verbalized understanding. Alyssa Trenton, Pharm. D. * Telephone Encounter - Nael FarleyQnips GmbHKaran Flanagan - 07/08/2025 2:00 PM EDT Patient called regarding possible covid and some medication questions. Patient currently has Covid test pending and wants to plan ahead if she is prescribed Paxlovid and if she should change her warfarin dosing. Patient stated she was also prescribed tessalon perles for cough and was wanting to know if she could take nyquil at night for the cough as well and that she is taking cold eeze. PT INR (no units) Date Value 02/14/2025 1.0 INR Home CoaguChek (no units) Date Value 07/01/2025 2.3 06/17/2025 1.8 06/03/2025 2.7 Patient can be reached at [phone] [employer] Farley[employer]) documented in this encounterLouis Stokes Cleveland Va Medical Center09-02-2025 Telephone encounter Note * Telephone Encounter - Nael FarleyQnips GmbHKaran Flanagan - 07/08/2025 2:00 PM EDT Patient called regarding possible covid and some medication questions. Patient currently has Covid test pending and wants to plan ahead if she is prescribed Paxlovid and if she should change her warfarin dosing. Patient stated she was also prescribed tessalon perles for cough and was wanting to know if she could take nyquil at night for the cough as well and that she is taking cold eeze. PT INR (no units) Date Value 02/14/2025 1.0 INR Home CoaguChek (no units) Date Value 07/01/2025 2.3 06/17/2025 1.8 06/03/2025 2.7 Patient can be reached at [phone] Karan Nayak ([employer]) [facility]09-02-2025 NoteGlenbeigh Hospital09-02-2025 History of Present illness Narrative* Ludmila Alberts APRN.[employer] - 07/08/2025 10:25 AM EDT URGENT CARE SAMEER Subjective Gregg Ferris is a 79 year old female. Patient presents with: Nasal Congestion: drainage, cough, fever, bodyaches and diarrhea x 1 day The patient is an 79-year-old female presenting with fever, cough, congestion, and fatigue. Fever, Cough, Congestion, and Fatigue: - Symptoms began yesterday. - Reports feeling miserable. - Taking Tylenol for symptom relief. - Uncertain about the highest recorded temperature. - No known exposure to sick individuals. - Denies sore throat and dyspnea. - Cough is non-productive. - One episode of diarrhea this morning. No abdominal pain or vomiting. - Son, a physician, advised viral testing. - Partner is also experiencing congestion. 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 Duarte at [facility]. 08/18/[address] Fischer at [place] Chronic throat clearing 02/01/2018 Ectopic gastric mucosa of multiple sites 05/06/[address] Granado 04/2022 Elevated fasting blood sugar 08/14/2018 Encounter for gynecological examination without abnormal finding 07/20/2016 Sees [facility]. Essential hypertension 07/20/2016 GERD without esophagitis 01/14/2008 Hemorrhoids 03/03/2017 Hiatal hernia History of pulmonary embolus (PE) 04/08/202404/2024: 4 of them History of pulmonary embolus (PE) 04/08/202404/2024: 4 of them, to be on anticoagulation for 6 months. History of pulmonary embolus (PE) 04/08/202404/2024: 4 of them, per pulm needs chronic anticoagulation. History of recurrent UTIs 07/19/2018 History of subdural hematoma 03/03/2017 After a fall Hypoxia 04/15/2024 After PE's 04/2024 Lichen sclerosus et atrophicus 03/03/2017 Living will on file at physician's office 01/16/2023 DPA: Nate (Son) Lumbago 03/21/[address] Duarte at [facility]. Medicare annual wellness visit, subsequent 08/14/2018 Medicare Part B: 06/06/2008 last done: 08/23/2019 Migraine without aura and without status migrainosus, not intractable 07/20/2016 Mixed hyperlipidemia 01/14/2008 Postmenopausal atrophic vaginitis 06/06/2012 Pulmonary nodules 10/03/201609/2016, follow uo CT in a year, 08/[address] Zheng Right thyroid nodule 10/03/2016 Had benign biopsy 09/2016 at [facility] Seasonal allergies 07/20/2016 Sinus arrhythmia Spinal stenosis, lumbar region, without neurogenic claudication 03/21/2012 PAST SURGICAL HISTORY Procedure Laterality Date 2D ECHO (EXEP) 09/2016 EF=65%, mild 1+ MR, TR APPENDECTOMY BACK SURGERY HX BRAIN SURGERY HX 1999 Brain bleed COLONOSCOPY 04/29/2013 Dr. Lu, repeat 10 years ESOPHAGOGASTRODUODENOSCOPY TRANSORAL DIAGNOSTIC 06/22/2020 EGD HEMORRHOIDECTOMY XTRNL 2/> COLUMN/GROUP IMMUNOCHEMICAL FECAL OCCULT BLOOD TEST 10/27/2021 negative LAPAROSCOPY SURG CHOLECYSTECTOMY 2002 Cholecystectomy, lap PAST [...] ALLERGIES Willis Inhibitors, Carafate [Sucralfate], Eliquis [Apixaban], Protonix [Pantoprazole], and Xarelto [Rivaroxaban] MEDICATIONS warfarin (COUMADIN) 5 mg tablet 1.5 tabs for three days and then go to taking 1.5 tabs on , satand 1 tab all other days. simvastatin (ZOCOR) 10 mg tablet Take 1 tablet by mouth daily at bedtime. famotidine (PEPCID) 20 mg tablet Take 20 mg by mouth daily at bedtime. Per Dr. Granado Cholecalciferol, Vitamin D3, (VITAMIN D-3) 50 mcg (2,000 unit) cap Take 1 capsule by mouth once daily. ondansetron orally disintegrating (ZOFRAN ODT) 4 mg disintegrating tablet Take 1 tablet by mouth every 8 hours as needed for nausea/vomiting. estradiol (ESTRACE) 0.01 % (0.1 mg/gram) vaginal cream Use 1 g vaginally every other day. At bedtime SUMAtriptan (IMITREX) 100 mg tablet Take one tab by month with onset of headache. Can repeat in 2 hrs. Max of 2 tabs in 24 hrs FAMILY HISTORY Problem Relation Age of Onset Coronary Artery Disease Mother Fatal [place] in her 80s Diabetes Father ADULT ONSET Coronary Artery Disease Father in his 80s No Known Problems Sister Hypertension Brother Coronary Artery Disease Brother 56 Prostate Cancer Brother No Known Problems Maternal Grandmother No Known Problems Maternal Grandfather No Known Problems Paternal Grandmother No Known Problems Paternal Grandfather COPD No Family History No lung cancer. SOCIAL HISTORY[1] Objective BP 124/72 Pulse 104 Temp 36.9 C (98.4 F) Resp 18 Wt 63.3 kg (139 lb 8.8 oz) SpO2 97% BMI 24.72 kg/m Physical Exam Vitals and nursing note reviewed. Constitutional: General: She is not in acute distress. Appearance: Normal appearance. She is normal weight. She is not ill-appearing or toxic-appearing. HENT: Head: Normocephalic and atraumatic. Right Ear: Tympanic membrane, ear canal and external ear normal. Left Ear: Tympanic membrane, ear canal and external ear normal. Nose: No congestion or rhinorrhea. Mouth/Throat: Mouth: Mucous membranes are moist. Pharynx: No oropharyngeal exudate or posterior oropharyngeal erythema. Eyes: Extraocular Movements: Extraocular movements intact. Conjunctiva/sclera: Conjunctivae normal. Pupils: Pupils are equal, round, and reactive to light. Cardiovascular: Rate and Rhythm: Normal rate and regular rhythm. Pulses: Normal pulses. Heart sounds: Normal heart sounds. Pulmonary: Effort: Pulmonary effort is normal. Breath sounds: Normal breath sounds. Abdominal: General: Abdomen is flat. Bowel sounds are normal. There is no distension. Palpations: There is no mass. Tenderness: There is no abdominal tenderness. There is no right CVA tenderness, left CVA tenderness, guarding or rebound. Hernia: No hernia is present. Lymphadenopathy: Cervical: No cervical adenopathy. Neurological: Mental Status: She is alert. { 1. Viral upper respiratory infection (J06.9) - Acute onset of fatigue, fever, congestion, cough, myalgias, and a single episode of diarrhea; no sore throat or shortness of breath. - Lungs clear to auscultation. No signs of pneumonia or acute cardiopulomonary process. - Viral panel (COVID-19, influenza, RSV) ordered; results expected late tonight or early tomorrow morning. - Advised use of Tessalon Perles for cough suppression. Patient has some at home. - Discussed Paxlovid as a potential treatment option if COVID-19 test returns positive; patient expressed understanding and agreement with plan. - Advised patient to monitor for worsening symptoms and to follow up as needed. - Chest pain, shorntess of breath, or unable to tolerate fluids seek emergency care. and Recording using wedgies software for draft documentation of the visit was discussed with the patient/authorized dental sales representative; all questions welcomed and answered. Patient/authorized dental sales representative agreed to proceed Disposition The patient was discharged. [1] Social History Tobacco Use Smoking status: Never Passive exposure: Never Smokeless tobacco: Never Tobacco comments: No smoking in childhood home. No significant ETS in household since. Vaping Use Vaping status: Never Used Substance Use Topics Alcohol use: Yes Alcohol/week: 1.0 standard drink of alcohol Types: 1 Glasses of Wine (5oz) per week Comment: socially Drug use: No documented in this encounterLouis Stokes [facility]09-02-2025 [id number] (AGENT OF COVID-19) RNA: Not detected INFLUENZA A RNA: Not detected INFLUENZA B RNA: Not detected RESPIRATORY SYNCYTIAL VIRUS (RSV) RNA: Not detectedCleveland Clinic ClevelandComment on above:Performed By: #### [id number]- [id number] ####[facility] LABCLIA [id number] [address] [id number] Telephone encounter Note* Telephone Encounter - Sharmila Weiss, [facility] - 07/01/2025 9:45 AM EDT [facility] Clinic Anticoagulation Episode Summary Anticoagulation Care Providers Provider Role Specialty Phone number Rangel Bonilla MD Referring Family Medicine [phone] Gregg Ferris is a 79 year old year old female patient being evaluated today for a Telemanagement visit. Patient is currently on the following anticoagulant(s) Warfarin. Labs Lab Results Component Value Date INR 2.3 07/01/2025 INR 1.8 (A) 06/17/2025 INR 2.7 06/03/2025 Lab Results Component Value Date HB 13.8 02/14/2025 HB 14.2 05/21/2024 HB 15.5 01/17/2024 Lab Results Component Value Date HCT 43.4 02/14/2025 HCT 45.0 05/21/2024 HCT 47.4 (H) 01/17/2024 Lab Results Component Value Date PLT 220 02/14/2025 PLT 309 05/21/2024 PLT 155 01/17/2024 Lab Results Component Value Date CREAT 0.76 02/14/2025 CREAT 0.68 01/16/2025 CREAT 0.79 01/17/2024 No components found for: TBILI3 Lab Results Component Value Date ALT 12 02/14/2025 ALT 18 01/17/2024 ALT 15 01/09/2023 Lab Results Component Value Date AST 19 02/14/2025 AST 22 01/17/2024 AST 17 01/09/2023 Estimated Creatinine Clearance: 52 mL/min (based on SCr of 0.76 mg/dL). ALLERGIES Allergen Reactions Willis Inhibitors Cough Carafate [Sucralfat* Diarrhea Eliquis [Apixaban] Other: See Comments Nausea, decreased appetite and chills Protonix [Pantopraz* Other: See Comments Stomach pain Xarelto [Rivaroxaba* Other: See Comments lack of energy, very fatigued, diarrhea, nausea, lack of appetite. Indication for Warfarin: Anticoagulation Episode Summary Current INR goal: 2.0-3.0 Assessment: INR result of 2.3 is therapeutic Plan: Current Warfarin Dosing As of 07/01/2025 Full warfarin instructions: 5 mg every day Called and spoke to patient/caregiver Advised patient to continue current weekly dose as noted above Next home INR check scheduled on 07/15/2025 Patient verbalizes understanding of the plan. Patient advised to call the PAC with any medication changes, bleeding/bruising concerns, recent changes in vitamin k consumption, if any procedures are coming up, if they have been ill or in the hospital, and if they have missed any doses of warfarin. Sharmila Weiss RPh Clinical Pharmacist, Pharmacy Anticoagulation Clinic Pharmacy Anticoagulation Clinic Pager: [phone]. [facility]08-26-2025 Miscellaneous Notes* Telephone Encounter - Sharmila Weiss RPh - 07/01/2025 9:45 AM EDT [facility] Anticoagulation Episode Summary Anticoagulation Care Providers Provider Role Specialty Phone number Rangel Bonilla MD Referring Family Medicine [phone] Gregg Ferris is a 79 year old year old female patient being evaluated today for a Telemanagement visit. Patient is currently on the following anticoagulant(s) Warfarin. Labs Lab Results Component Value Date INR 2.3 07/01/2025 INR 1.8 (A) 06/17/2025 INR 2.7 06/03/2025 Lab Results Component Value Date HB 13.8 02/14/2025 HB 14.2 05/21/2024 HB 15.5 01/17/2024 Lab Results Component Value Date HCT 43.4 02/14/2025 HCT 45.0 05/21/2024 HCT 47.4 (H) 01/17/2024 Lab Results Component Value Date PLT 220 02/14/2025 PLT 309 05/21/2024 PLT 155 01/17/2024 Lab Results Component Value Date CREAT 0.76 02/14/2025 CREAT 0.68 01/16/2025 CREAT 0.79 01/17/2024 No components found for: TBILI3 Lab Results Component Value Date ALT 12 02/14/2025 ALT 18 01/17/2024 ALT 15 01/09/2023 Lab Results Component Value Date AST 19 02/14/2025 AST 22 01/17/2024 AST 17 01/09/2023 Estimated Creatinine Clearance: 52 mL/min (based on SCr of 0.76 mg/dL). ALLERGIES Allergen Reactions Willis Inhibitors Cough Carafate [Sucralfat* Diarrhea Eliquis [Apixaban] Other: See Comments Nausea, decreased appetite and chills Protonix [Pantopraz* Other: See Comments Stomach pain Xarelto [Rivaroxaba* Other: See Comments lack of energy, very fatigued, diarrhea, nausea, lack of appetite. Indication for Warfarin: Anticoagulation Episode Summary Current INR goal: 2.0-3.0 Assessment: INR result of 2.3 is therapeutic Plan: Current Warfarin Dosing As of 07/01/2025 Full warfarin instructions: 5 mg every day Called and spoke to patient/caregiver Advised patient to continue current weekly dose as noted above Next home INR check scheduled on 07/15/2025 Patient verbalizes understanding of the plan. Patient advised to call the PAC with any medication changes, bleeding/bruising concerns, recent changes in vitamin k consumption, if any procedures are coming up, if they have been ill or in the hospital, and if they have missed any doses of warfarin. Sharmila Weiss RPh Clinical Pharmacist, Pharmacy Anticoagulation Clinic Pharmacy Anticoagulation Clinic Pager: [phone]. documented in this encounterLouis Stokes [facility]08-19-2025 [facility] History of Present illness Narrative* Alyssa Benz MA - 06/24/2025 1:49 PM EDT POPULATION HEALTH NAVIGATION OUTREACH Action/FYI CHart review only Reason for Outreach Care Gap/HCC or Scheduling Wellness Visits Care Gaps due: N/A Patient Contacted: Unable or unnecessary to reach patient: Chart Review only Navigation Signature: Alyssa Benz MA June 24, 2025 1:49 PM documented in this encounterLouis Stokes [facility]08-12-2025 Telephone encounter Note * Telephone Encounter - Agustin Shepard RPh - 06/17/2025 9:36 AM EDT [facility] Clinic Anticoagulation Episode Summary Anticoagulation Care Providers Provider Role Specialty Phone number Rangel Bonilla MD Referring Family Medicine [phone] Gregg Ferris is a 79 year old year old female patient being evaluated today for a Telemanagement visit. Patient is currently on the following anticoagulant(s) Warfarin. Labs PT INR (no units) Date Value 02/14/2025 1.0 INR Home CoaguChek (no units) Date Value 06/17/2025 1.8 06/03/2025 2.7 05/20/2025 1.9 Estimated Creatinine Clearance: 52 mL/min (based on SCr of 0.76 mg/dL). ALLERGIES Allergen Reactions Willis Inhibitors Cough Carafate [Sucralfat* Diarrhea Eliquis [Apixaban] Other: See Comments Nausea, decreased appetite and chills Protonix [Pantopraz* Other: See Comments Stomach pain Xarelto [Rivaroxaba* Other: See Comments lack of energy, very fatigued, diarrhea, nausea, lack of appetite. Indication for Warfarin: Anticoagulation Episode Summary Current INR goal: 2.0-3.0 Assessment: INR result of 1.8 is SUBtherapeutic due to: No obvious cause (patient denies liver, green tea, new herbal/nutritional supplements - such as Boost, Ensure, an increase in vit K foods and/or V8 type juices, any changes in warfarin tablet, or missed doses) Plan: Current Warfarin Dosing As of 06/17/2025 Full warfarin instructions: 06/17: 7.5 mg; Otherwise 5 mg every day Called and spoke to patient/caregiver Advised patient to increase dose for 1 day only then resume weekly regimen as noted above Next INR check due on 07/01/2025 Patient verbalizes understanding of the plan. Agustin Shepard RPh Clinical Pharmacist, Pharmacy Anticoagulation Clinic Pharmacy Anticoagulation Clinic Pager: [phone]. [facility]08-12-2025 Miscellaneous Notes* Telephone Encounter - Agustin Shepard RPh - 06/17/2025 9:36 AM EDT [facility] Ambulatory [facility] Anticoagulation Clinic Anticoagulation Episode Summary Anticoagulation Care Providers Provider Role Specialty Phone number Rangel Bonilla MD Referring Family Medicine [phone] Gregg Ferris is a 79 year old year old female patient being evaluated today for a Telemanagement visit. Patient is currently on the following anticoagulant(s) Warfarin. Labs PT INR (no units) Date Value 02/14/2025 1.0 INR Home CoaguChek (no units) Date Value 06/17/2025 1.8 06/03/2025 2.7 05/20/2025 1.9 Estimated Creatinine Clearance: 52 mL/min (based on SCr of 0.76 mg/dL). ALLERGIES Allergen Reactions Willis Inhibitors Cough Carafate [Sucralfat* Diarrhea Eliquis [Apixaban] Other: See Comments Nausea, decreased appetite and chills Protonix [Pantopraz* Other: See Comments Stomach pain Xarelto [Rivaroxaba* Other: See Comments lack of energy, very fatigued, diarrhea, nausea, lack of appetite. Indication for Warfarin: Anticoagulation Episode Summary Current INR goal: 2.0-3.0 Assessment: INR result of 1.8 is SUBtherapeutic due to: No obvious cause (patient denies liver, green tea, new herbal/nutritional supplements - such as Boost, Ensure, an increase in vit K foods and/or V8 type juices, any changes in warfarin tablet, or missed doses) Plan: Current Warfarin Dosing As of 06/17/2025 Full warfarin instructions: 06/17: 7.5 mg; Otherwise 5 mg every day Called and spoke to patient/caregiver Advised patient to increase dose for 1 day only then resume weekly regimen as noted above Next INR check due on 07/01/2025 Patient verbalizes understanding of the plan. Agustin Shepard RPh Clinical Pharmacist, Pharmacy Anticoagulation Clinic Pharmacy Anticoagulation Clinic Pager: [phone]. documented in this encounterLouis Stokes [facility]08-11-2025 Telephone encounter Note * Telephone Encounter - Rangel Bonilla MD - 06/16/2025 8:22 PM EDT These supplement does not come up on epocrates to see if there is an interaction. Therefore when she does start it Pharmacy should check her INR 2-3 days after starting to see if an adjustment is needed. [facility]08-11-2025 Miscellaneous Notes* Telephone Encounter - Rangel Bonilla MD - 06/16/2025 8:22 PM EDT These supplement does not come up on epocrates to see if there is an interaction. Therefore when she does start it Pharmacy should check her INR 2-3 days after starting to see if an adjustment is needed. * Telephone Encounter - Wilda Abraham RPh - 06/16/2025 1:15 PM EDT Pt is currently in [facility]. Advised PAC can not advise on warfarin adjustments if the pt is outof state. She is returning on Monday. She is not currently taking the Radiancy supplement. Advised PAC will f/u on 06/23. Will rout to referring provider to see if they can discuss with her in the mean time. * Telephone Encounter - Alfred Krueger - 06/16/2025 1:01 PM EDT Patient called with questions in regards to a supplement that she is considering purchasing. She has concerns that it will have interactions with warfarin. Suplement: Radiancy (Capsules) Patient can be reached at [phone] documented in this encounterLouis Stokes [facility]08-11-2025 Telephone encounter Note * Telephone Encounter - Wilda Abraham RPh - 06/16/2025 1:15 PM EDT Pt is currently in [facility]. Advised PAC can not advise on warfarin adjustments if the pt is outof state. She is returning on Monday. She is not currently taking the Radiancy supplement. Advised PAC will f/u on 06/23. Will rout to referring provider to see if they can discuss with her in the mean time. [facility]08-11-2025 Telephone encounter Note* Telephone Encounter - Alfred Krueger - 06/16/2025 1:01 PM EDT Patient called with questions in regards to a supplement that she is considering purchasing. She has concerns that it will have interactions with warfarin. Suplement: Radiancy (Capsules) Patient can be reached at [phone] [facility]08-01-2025 Evaluation note* Diagnosis Onset Date Resolution Status Admit Date Acute vaginitis acute June 11:28am UTI (urinary tract infection) acute June 06, 2025 11:28am Vaginal atrophy acute June 11:28am [facility] Work Phone: 1(337) 628-306308-01-2025 Evaluation note* Diagnosis Onset Date Resolution Status Admit Date Acute vaginitis acute June 11:28am UTI (urinary tract infection) acute June 06, 2025 11:28am Vaginal atrophy acute June 11:28am Intermittent dysphagia acute Oc tober 2024 2:51pm Nausea and vomiting noneactive Octob er 2024 2:51pm Intermittent dysphagia acute Oc tober 2024 2:00pm UTI (urinary tract infection) acute August 22, 2025 2:00pm Vaginal atrophy acute August 062024 2:00pm [facility] Work Phone: 1(638) 561-201407-31-2025 Telephone encounter Note* Telephone Encounter - Demetrius Robledo RPh - 06/05/2025 1:43 PM EDT Images from the original note were not included. Called and advised patient the following: continue current warfarin regimen. Demetrius Robledo RPh [facility]07-31-2025 Miscellaneous Notes* Telephone Encounter - Demetrius Robledo RPh - 06/05/2025 1:43 PM EDT Images from the original note were not included. Called and advised patient the following: continue current warfarin regimen. Demetrius Robledo RPh * Telephone Encounter - Issa FarleyQnips GmbHNaye Flanagan - 06/05/2025 1:30 PM EDT PATIENT CALL Patient called call center regarding new medication. Patient/caregiver called and stated Patient stated she took the following OTC medication(s) and would like to check for any interactions with warfarin or change in next INR date: Fexofenadine 180 mg tablets Has patient started medication(s) and if so, when did they start? Yes: Date: 06/05 Next INR result currently expected 8/12 via Home [facility]. Patient can be reached at [phone]. PT INR (no units) Date Value 02/14/2025 1.0 INR Home CoaguChek (no units) Date Value 06/03/2025 2.7 05/20/2025 1.9 05/06/2025 3.6 [employer]aye [employer]) documented in this encounterLouis Stokes [facility]07-31-2025 Telephone encounter Note * Telephone Encounter - Issa FarleyQnips GmbHNaye Flanagan - 06/05/2025 1:30 PM EDT PATIENT CALL Patient called call center regarding new medication. Patient/caregiver called and stated Patient stated she took the following OTC medication(s) and would like to check for any interactions with warfarin or change in next INR date: Fexofenadine 180 mg tablets Has patient started medication(s) and if so, when did they start? Yes: Date: 06/05 Next INR result currently expected 8/12 via Home [employer]. Patient can be reached at [phone]. PT INR (no units) Date Value 02/14/2025 1.0 INR Home CoaguChek (no units) Date Value 06/03/2025 2.7 05/20/2025 1.9 05/06/2025 3.6 Naye Parsons ([employer]) [facility]07-29-2025 Telephone encounter Note* Telephone Encounter - Demetrius Robledo RPh - 06/03/2025 2:41 PM EDT Called and advised patient to continue current warfarin regimen and to contact PAC if she needs to take more than one dose. Demetrius Robledo RPh [facility]07-29-2025 Miscellaneous Notes* Telephone Encounter - Demetrius Robledo RPh - 06/03/2025 2:41 PM EDT Called and advised patient to continue current warfarin regimen and to contact PAC if she needs to take more than one dose. Demetrius Robledo RPh * Telephone Encounter - Issa FarleyQnips GmbHNaye Flanagan - 06/03/2025 2:24 PM EDT PATIENT CALL Patient called call center regarding new medication. Patient/caregiver called and stated Patient was prescribed the following new medication(s) and would like to check for any interactions with warfarin or change in next INR date: fluconazole (DIFLUCAN) 150 mg tablet 1 tablet 0 06/03/2025 06/03/2025 Sig: Take 1 tablet by mouth one time only for 1 dose. Has patient started medication(s) and if so, when did they start? Yes: Date: 06/03 Next INR result currently expected 8/12 via Home [employer]. Patient can be reached at [phone]. PT INR (no units) Date Value 02/14/2025 1.0 INR Home CoaguChek (no units) Date Value 06/03/2025 2.7 05/20/2025 1.9 05/06/2025 3.6 Naye Parsons ([employer]) documented in this encounterLouis Stokes [facility]07-29-2025 Telephone encounter Note * Telephone Encounter - Issa FarleyQnips GmbHNaye Flanagan - 06/03/2025 2:24 PM EDT PATIENT CALL Patient called call center regarding new medication. Patient/caregiver called and stated Patient was prescribed the following new medication(s) and would like to check for any interactions with warfarin or change in next INR date: fluconazole (DIFLUCAN) 150 mg tablet 1 tablet 0 06/03/2025 06/03/2025 Sig: Take 1 tablet by mouth one time only for 1 dose. Has patient started medication(s) and if so, when did they start? Yes: Date: 06/03 Next INR result currently expected 06/17 via Home M[facility]. Patient can be reached at [phone]. PT INR (no units) Date Value 02/14/2025 1.0 INR Home CoaguChek (no units) Date Value 06/03/2025 2.7 05/20/2025 1.9 05/06/2025 3.6 Naye Parsons ([employer]) [facility]07[facility]29-[facility] History of Present illness Narrative* Dave Núñez PA - 06/03/2025 10:34 AM EDT URGENT CARE SAMEER Subjective Gregg Ferris is a 79 year old female. Patient presents with: Vaginal Problem: burning and itching, given 1 fluconazole last , ? another one HPI Yeast Infection: - Developed a yeast infection after completing a course of antibiotics for a UTI. - Seen by pcp last Monday, Had swab + for clementina. and prescribed a single dose of fluconazole. - Symptoms improved initially but did not fully resolve. - Persistent symptoms include itching, burning, and urinary frequency. - Denies discharge, hematuria, back pain, or emesis. - No side effects from the initial dose of fluconazole. - Urinalysis performed last week was normal. Coumadin Therapy: - On Coumadin for the past few months. - Recent INR was 2.7. Therapeutic. 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 Duarte at [facility]. 08/18/[address] Fischer at [facility] throat clearing 02/01/2018 Ectopic gastric mucosa of multiple sites 05/06/[address] Granado 04/2022 Elevated fasting blood sugar 08/14/2018 Encounter for gynecological examination without abnormal finding 07/20/[address] [facility]. Essential hypertension 07/20/2016 GERD without esophagitis 01/14/2008 Hemorrhoids 03/03/2017 Hiatal hernia History of pulmonary embolus (PE) 04/08/202404/2024: 4 of them History of pulmonary embolus (PE) 04/08/202404/2024: 4 of them, to be on anticoagulation for 6 months. History of pulmonary embolus (PE) 04/08/202404/2024: 4 of them, per pulm needs chronic anticoagulation. History of recurrent UTIs 07/19/2018 History of subdural hematoma 03/03/2017 After a fall Hypoxia 04/15/2024 After PE's 04/2024 Lichen sclerosus et atrophicus 03/03/2017 Living will on file at physician's office 01/16/2023 DPA: Nate (Son) Juanitago 03/21/[address] Duarte at [facility]. Medicare annual wellness visit, subsequent 08/14/2018 Medicare Part B: 06/06/2008 last done: 08/23/2019 Migraine without aura and without status migrainosus, not intractable 07/20/2016 Mixed hyperlipidemia 01/14/2008 Postmenopausal atrophic vaginitis 06/06/2012 Pulmonary nodules 10/03/201609/2016, follow uo CT in a year, 08/[address] Zheng Right thyroid nodule 10/03/2016 Had benign biopsy 09/2016 at [facility] Seasonal allergies 07/20/2016 Sinus arrhythmia Spinal stenosis, lumbar region, without neurogenic claudication 03/21/2012 PAST SURGICAL HISTORY Procedure Laterality Date 2D ECHO (EXEP) 09/2016 EF=65%, mild 1+ MR, TR APPENDECTOMY BACK SURGERY HX BRAIN SURGERY HX 2000 Brain bleed COLONOSCOPY 04/29/2013 Dr. Lu, repeat 10 years ESOPHAGOGASTRODUODENOSCOPY TRANSORAL DIAGNOSTIC 06/22/2020 EGD HEMORRHOIDECTOMY XTRNL 2/> COLUMN/GROUP IMMUNOCHEMICAL FECAL OCCULT BLOOD TEST 10/27/2021 negative LAPAROSCOPY SURG CHOLECYSTECTOMY 2002 Cholecystectomy, lap PAST [...] ALLERGIES Willis Inhibitors, Carafate [Sucralfate], Eliquis [Apixaban], Protonix [Pantoprazole], and Xarelto [Rivaroxaban] MEDICATIONS warfarin (COUMADIN) 5 mg tablet 1.5 tabs for three days and then go to taking 1.5 tabs on , satand 1 tab all other days. simvastatin (ZOCOR) 10 mg tablet Take 1 tablet by mouth daily at bedtime. famotidine (PEPCID) 20 mg tablet Take 20 mg by mouth daily at bedtime. Per Dr. Granado Cholecalciferol, Vitamin D3, (VITAMIN D-3) 50 mcg (2,000 unit) cap Take 1 capsule by mouth once daily. ondansetron orally disintegrating (ZOFRAN ODT) 4 mg disintegrating tablet Take 1 tablet by mouth every 8 hours as needed for nausea/vomiting. estradiol (ESTRACE) 0.01 % (0.1 mg/gram) vaginal cream Use 1 g vaginally every other day. At bedtime SUMAtriptan (IMITREX) 100 mg tablet Take one tab by month with onset of headache. Can repeat in 2 hrs. Max of 2 tabs in 24 hrs fluconazole (DIFLUCAN) 150 mg tablet Take 1 tablet by mouth one time only for 1 dose. FAMILY HISTORY Problem Relation Age of Onset Coronary Artery Disease Mother Fatal [place] in her 80s Diabetes Father ADULT ONSET [...] Drug use: No Review of Systems Constitutional: (+) decreased appetite Gastrointestinal: (+) nausea, (-) vomiting Genitourinary: (+) pruritus, (+) dysuria, (+) urinary frequency, (-) vaginal discharge, (-) hematuria Musculoskeletal: (-) back pain Objective BP 124/70 Pulse 112 Temp 36.6 C (97.9 F) Resp 16 Wt 63.1 kg (139 lb 1.8 oz) SpO2 98% BMI 24.64 kg/m Physical Exam Vitals and nursing note reviewed. Constitutional: General: She is not in acute distress. Appearance: Normal appearance. She is not toxic-appearing. HENT: Mouth/Throat: Mouth: Mucous membranes are moist. Cardiovascular: Rate and Rhythm: Normal rate and regular rhythm. Pulmonary: Effort: Pulmonary effort is normal. Breath sounds: Normal breath sounds. Abdominal: General: Abdomen is flat. Palpations: Abdomen is soft. Tenderness: There is no abdominal tenderness. There is no right CVA tenderness, left CVA tenderness, guarding or rebound. Skin: General: Skin is warm and dry. Neurological: Mental Status: She is alert. General: No acute distress. { 1. Vaginal itching (N89.8) - Recent UTI treated with antibiotics, followed by onset of yeast infection; initial treatment withsingle dose of fluconazole provided partial relief. - Persistent symptoms of burning and urinary frequency, itching; no discharge, hematuria, back pain, or vomiting reported. - Urinalysis performed last week was unremarkable. - Start second dose of fluconazole. - Advised to follow up with urogynecologist if symptoms do not improve after second dose. Recording using wedgies software for draft documentation of the visit was discussed with the patient/authorized dental sales representative; all questions welcomed and answered. Patient/authorized dental sales representative agreed to proceed History and Record Review External record(s) reviewed: prior outpatient record and prior labs/imaging. Findings from review of prior labs/imaging: Positive yeast swab last week Differential Diagnoses - Vaginal candidiasis is more likely for the following reason(s): suggested by H&P Disposition The patient was discharged. Procedures documented in this encounterLouis [facility] Telephone encounter Note * Telephone Encounter - Sharmila Weiss [facility] - 06/03/2025 10:00 AM EDT [facility] Ambulatory Pharmacy Anticoagulation Clinic Anticoagulation Episode Summary Anticoagulation Care Providers Provider Role Specialty Phone number Rangel Bonilla MD Referring Family Medicine [phone] Gregg Ferris is a 79 year old year old female patient being evaluated today for a Telemanagement visit. Patient is currently on the following anticoagulant(s) Warfarin. Labs Lab Results Component Value Date INR 2.7 06/03/2025 INR 1.9 (A) 05/20/2025 INR 3.6 (A) 05/06/2025 Lab Results Component Value Date HB 13.8 02/14/2025 HB 14.2 05/21/2024 HB 15.5 01/17/2024 Lab Results Component Value Date HCT 43.4 02/14/2025 HCT 45.0 05/21/2024 HCT 47.4 (H) 01/17/2024 Lab Results Component Value Date PLT 220 02/14/2025 PLT 309 05/21/2024 PLT 155 01/17/2024 Lab Results Component Value Date CREAT 0.76 02/14/2025 CREAT 0.68 01/16/2025 CREAT 0.79 01/17/2024 No components found for: [id number] Lab Results Component Value Date ALT 12 02/14/2025 ALT 18 01/17/2024 ALT 15 01/09/2023 Lab Results Component Value Date AST 19 02/14/2025 AST 22 01/17/2024 AST 17 01/09/2023 Estimated Creatinine Clearance: 52.1 mL/min (based on SCr of 0.76 mg/dL). ALLERGIES Allergen Reactions Willis Inhibitors Cough Carafate [Sucralfat* Diarrhea Eliquis [Apixaban] Other: See Comments Nausea, decreased appetite and chills Protonix [Pantopraz* Other: See Comments Stomach pain Xarelto [Rivaroxaba* Other: See Comments lack of energy, very fatigued, diarrhea, nausea, lack of appetite. Indication for Warfarin: Anticoagulation Episode Summary Current INR goal: 2.0-3.0 Assessment: INR result of 2.7 is therapeutic Plan: Current Warfarin Dosing As of 06/03/2025 Full warfarin instructions: 5 mg every day Called and spoke to patient/caregiver Advised patient to continue current weekly dose as noted above Next home INR check scheduled on 06/17/2025 Patient verbalizes understanding of the plan. Patient advised to call the PAC with any medication changes, bleeding/bruising concerns, recent changes in vitamin k consumption, if any procedures are coming up, if they have been ill or in the hospital, and if they have missed any doses of warfarin. Sharmila Weiss RPh Clinical Pharmacist, Pharmacy Anticoagulation Clinic Pharmacy Anticoagulation Clinic Pager: [phone]. [facility]07-29-2025 Miscellaneous Notes* Telephone Encounter - Sharmila Weiss RPh - 06/03/2025 10:00 AM EDT [facility] Ambulatory Pharmacy Anticoagulation Clinic Anticoagulation Episode Summary Anticoagulation Care Providers Provider Role Specialty Phone number Rangel Bonilla MD Referring Family Medicine [phone] Gregg Ferris is a 79 year old year old female patient being evaluated today for a Telemanagement visit. Patient is currently on the following anticoagulant(s) Warfarin. Labs Lab Results Component Value Date INR 2.7 06/03/2025 INR 1.9 (A) 05/20/2025 INR 3.6 (A) 05/06/2025 Lab Results Component Value Date HB 13.8 02/14/2025 HB 14.2 05/21/2024 HB 15.5 01/17/2024 Lab Results Component Value Date HCT 43.4 02/14/2025 HCT 45.0 05/21/2024 HCT 47.4 (H) 01/17/2024 Lab Results Component Value Date PLT 220 02/14/2025 PLT 309 05/21/2024 PLT 155 01/17/2024 Lab Results Component Value Date CREAT 0.76 02/14/2025 CREAT 0.68 01/16/2025 CREAT 0.79 01/17/2024 No components found for: [id number] Lab Results Component Value Date ALT 12 02/14/2025 ALT 18 01/17/2024 ALT 15 01/09/2023 Lab Results Component Value Date AST 19 02/14/2025 AST 22 01/17/2024 AST 17 01/09/2023 Estimated Creatinine Clearance: 52.1 mL/min (based on SCr of 0.76 mg/dL). ALLERGIES Allergen Reactions Willis Inhibitors Cough Carafate [Sucralfat* Diarrhea Eliquis [Apixaban] Other: See Comments Nausea, decreased appetite and chills Protonix [Pantopraz* Other: See Comments Stomach pain Xarelto [Rivaroxaba* Other: See Comments lack of energy, very fatigued, diarrhea, nausea, lack of appetite. Indication for Warfarin: Anticoagulation Episode Summary Current INR goal: 2.0-3.0 Assessment: INR result of 2.7 is therapeutic Plan: Current Warfarin Dosing As of 06/03/2025 Full warfarin instructions: 5 mg every day Called and spoke to patient/caregiver Advised patient to continue current weekly dose as noted above Next home INR check scheduled on 06/17/2025 Patient verbalizes understanding of the plan. Patient advised to call the PAC with any medication changes, bleeding/bruising concerns, recent changes in vitamin k consumption, if any procedures are coming up, if they have been ill or in the hospital, and if they have missed any doses of warfarin. Sharmila Weiss RPh Clinical Pharmacist, Pharmacy Anticoagulation Clinic Pharmacy Anticoagulation Clinic Pager: [phone]. documented in this encounterLouis Stokes [facility]07-28-2025 Telephone encounter Note * Telephone Encounter - Rangel Bonilla MD - 06/02/2025 9:22 PM EDT noted [facility]07-28-2025 Miscellaneous Notes* Telephone Encounter - Rangel Bonilla MD - 06/02/2025 9:22 PM EDT noted * Telephone Encounter - Naye Jackson RN - 06/02/2025 7:10 PM EDT Pt called and is notified of providers message and instructions. Pt voices understanding. She states the nausea was before the Diflucan, and she wanted to let the provider know that the Coumadin clinic told her to take a 1/2 dose the night she took that. Pt can't think of any other new medication she started. She states she is going to call the Coumadin clinic and see if she would be able to decrease the dose rather than go off the Coumadin. Pt was not wanting to go on the heparin shots. She Transferred to [facility] to set up appt with OBGYN. Naye Jackson RN * Telephone Encounter - aRngel Bonilla MD - 06/02/2025 5:38 PM EDT Let patient know I have placed a consult to see GARBAGE DEPOT WORKER for her vaginal burning. In regards to the coumadin. Based on her last INR being slightly low I'm not sure she can do a lower dose. Also it's very unusual that she did fine on coumadin previously for several months and in the past two weeks develop nausea. Is she on anything else that is new, even OTC meds she started on her own? The only other option then would be to do life long low molecular weight heparin injections daily or stop the coumadin and understand she may get a blood clot. She may want to return to Dr. Granado's office and discuss the nausea with him. * Telephone Encounter - Whit Pal RN - 06/02/2025 11:53 AM EDT Patient calls to give provider update. Patient reports that she continues to have vaginal discomfort and burning. Patient was seen by Christiana Podlogbrunilda on 05/28/2025 and took fluconazole 150 mg the same day. Helped with symptoms for the first couple of days but now they are back. Patient also reports that she is having the nausea and no appetite for the past two weeks and contributes symptoms to Coumadin as the same thing happened when she took Eliquis and Xarelto. She tried taking the Coumadin later in the evening thinking she would have the nausea/poor appetitewhile she was sleeping but she still reports no appetite with waking. She is wondering if she needsa lower dose of Coumadin. Recommended appt for eval. Patient requests PCP be notified as he is familiar with her problem of nausea and poor appetite and would like him to be aware of the vaginal symptoms as well. Whit Pal RN documented in this encounterLouis Stokes [facility] Center07-28-2025 Telephone encounter Note * Telephone Encounter - Naye Jackson RN - 06/02/2025 7:10 PM EDT Pt called and is notified of providers message and instructions. Pt voices understanding. She states the nausea was before the Diflucan, and she wanted to let the provider know that the Coumadin clinic told her to take a 1/2 dose the night she took that. Pt can't think of any other new medication she started. She states she is going to call the Coumadin clinic and see if she would be able to decrease the dose rather than go off the Coumadin. Pt was not wanting to go on the heparin shots. She Transferred to scheduled to set up appt with OBGYN. Naye Jackson RN [facility]07-28-2025 Telephone encounter Note* Telephone Encounter - Rangel Bonilla MD - 06/02/2025 5:38 PM EDT Let patient know I have placed a consult to see GARBAGE DEPOT WORKER for her vaginal burning. In regards to the coumadin. Based on her last INR being slightly low I'm not sure she can do a lower dose. Also it's very unusual that she did fine on coumadin previously for several months and in the past two weeks develop nausea. Is she on anything else that is new, even OTC meds she started on her own? The only other option then would be to do life long low molecular weight heparin injections daily or stop the coumadin and understand she may get a blood clot. She may want to return to Dr. Granado's office and discuss the nausea with him. [facility]07-28-2025 Telephone encounter Note* Telephone Encounter - Whit Pal RN - 06/02/2025 11:53 AM EDT Patient calls to give provider update. Patient reports that she continues to have vaginal discomfort and burning. Patient was seen by Christiana Rodriguez on 05/28/2025 and took fluconazole 150 mg the same day. Helped with symptoms for the first couple of days but now they are back. Patient also reports that she is having the nausea and no appetite for the past two weeks and contributes symptoms to Coumadin as the same thing happened when she took Eliquis and Xarelto. She tried taking the Coumadin later in the evening thinking she would have the nausea/poor appetitewhile she was sleeping but she still reports no appetite with waking. She is wondering if she needsa lower dose of Coumadin. Recommended appt for eval. Patient requests PCP be notified as he is familiar with her problem of nausea and poor appetite and would like him to be aware of the vaginal symptoms as well. Whit Pal RN [facility]07-23-2025 Telephone encounter Note* Telephone Encounter - Sharmila Weiss RPh - 05/28/2025 4:05 PM EDT Spoke to patient. Advised she take warfarin 2.5 mg today then resume 5 mg daily. [facility]07-23-2025 Miscellaneous Notes* Telephone Encounter - Sharmila Weiss RPh - 05/28/2025 4:05 PM EDT Spoke to patient. Advised she take warfarin 2.5 mg today then resume 5 mg daily. * Telephone Encounter - Issa ([employer])Naye - 05/28/2025 4:01 PM EDT PATIENT CALL Patient called call center regarding new medication. Patient/caregiver called and stated Patient was prescribed the following new medication(s) and would like to check for any interactions with warfarin or change in next INR date: fluconazole (DIFLUCAN) 150 mg tablet 1 tablet 0 05/28/2025 05/28/2025 Sig: Take 1 tablet by mouth one time only for 1 dose. Has patient started medication(s) and if so, when did they start? Yes: Date: today (05/28) Next INR result currently expected 06/03 via Home [employer]. Patient can be reached at [phone]. PT INR (no units) Date Value 02/14/2025 1.0 INR Home CoaguChek (no units) Date Value 05/20/2025 1.9 05/06/2025 3.6 04/24/2025 3.5 Naye Parsons ([employer]) documented in this encounterLouis Stokes Cleveland [facility] Center07-23-2025 Telephone encounter Note * Telephone Encounter - Issa FarleyInspector Optical InstrumentNaye Flanagan - 05/28/2025 4:01 PM EDT PATIENT CALL Patient called call center regarding new medication. Patient/caregiver called and stated Patient was prescribed the following new medication(s) and would like to check for any interactions with warfarin or change in next INR date: fluconazole (DIFLUCAN) 150 mg tablet 1 tablet 0 05/28/2025 05/28/2025 Sig: Take 1 tablet by mouth one time only for 1 dose. Has patient started medication(s) and if so, when did they start? Yes: Date: today (05/28) Next INR result currently expected 06/03 via Home Meter. Patient can be reached at [phone]. PT INR (no units) Date Value 02/14/2025 1.0 INR Home CoaguChek (no units) Date Value 05/20/2025 1.9 05/06/2025 3.6 04/24/2025 3.5 Naye Parsons ([employer]) [facility] History of Present illness Narrative* Christiana Rodriguez APRN.[employer] - 05/28/2025 8:15 AM EDT 05/28/2025 Patient presents with: Vaginal Problem: Discomfort since having UTI. Having burning while just sitting. Recording using wedgies software for draft documentation of the visit was discussed with the patient/authorized dental sales representative; all questions welcomed and answered. Patient/authorized dental sales representative agreed to proceed SUBJECTIVE: This is a 79 year old that is here today for Above Complaints. Vaginal Discomfort: - Onset a few days after completing a 3-day course of Cipro for a UTI. - Described as discomfort, sometimes with a burning sensation. - No itching, vaginal discharge, or hematuria. - Nocturnal discomfort causing sleep disturbances, waking up 3 times last night due to pain. - Denies abdominal or back pain. - Denies erythema or swelling upon self-examination. - Not currently sexually active. Recurrent UTIs: - Longstanding history of recurrent UTIs. - Currently on prophylactic antibiotic therapy, taken nightly for almost a year. - Recent UTI treated with nitrofurantoin, which was discontinued due to bacterial resistance; switched to Cipro. - Last UTI occurred two weeks ago. - Taking D-mannose capsules. - Uses estrogen cream 3 times a week. - Previous UTI also involved a yeast infection, treated by Dr. Chavez. Hypertension: - Monitors blood pressure at home; reports white coat syndrome. - Recent reading of 122/xx mmHg after a cortisone injection for an arm issue. 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 Duarte at [facility]. 08/18/[address] Fischer at [place] [facility] Chronic throat clearing 02/01/2018 Ectopic gastric mucosa of multiple sites 05/06/[address] Granado 04/2022 Elevated fasting blood sugar 08/14/2018 Encounter for gynecological examination without abnormal finding 07/20/2016 Sees [facility]. Essential hypertension 07/20/2016 GERD without esophagitis 01/14/2008 Hemorrhoids 03/03/2017 Hiatal hernia History of pulmonary embolus (PE) 04/08/202404/2024: 4 of them History of pulmonary embolus (PE) 04/08/202404/2024: 4 of them, to be on anticoagulation for 6 months. History of pulmonary embolus (PE) 04/08/202404/2024: 4 of them, per pulm needs chronic anticoagulation. History of recurrent UTIs 07/19/2018 History of subdural hematoma 03/03/2017 After a fall Hypoxia 04/15/2024 After PE's 04/2024 Lichen sclerosus et atrophicus 03/03/2017 Living will on file at physician's office 01/16/2023 DPA: Nate (Son) Lumbago 03/21/[address] Duarte at [facility]. Medicare annual wellness visit, subsequent 08/14/2018 Medicare Part B: 06/06/2008 last done: 08/23/2019 Migraine without aura and without status migrainosus, not intractable 07/20/2016 Mixed hyperlipidemia 01/14/2008 Postmenopausal atrophic vaginitis 06/06/2012 Pulmonary nodules 10/03/201609/2016, follow uo CT in a year, 08/[address] Zheng Right thyroid nodule 10/03/2016 Had benign biopsy 09/2016 at [facility] Seasonal allergies 07/20/2016 Sinus arrhythmia Spinal stenosis, lumbar region, without neurogenic claudication 03/21/2012 ALLERGIES Willis Inhibitors, Carafate [Sucralfate], Eliquis [Apixaban], Protonix [Pantoprazole], and Xarelto [Rivaroxaban] MEDICATIONS Current Outpatient Medications Medication Sig fluconazole (DIFLUCAN) 150 mg tablet Take 1 tablet by mouth one time only for 1 dose. warfarin (COUMADIN) 5 mg tablet 1.5 tabs for three days and then go to taking 1.5 tabs on , satand 1 tab all other days. simvastatin (ZOCOR) 10 mg tablet Take 1 tablet by mouth daily at bedtime. famotidine (PEPCID) 20 mg tablet Take 20 mg by mouth daily at bedtime. Per Dr. Granado Cholecalciferol, Vitamin D3, (VITAMIN D-3) 50 mcg (2,000 unit) cap Take 1 capsule by mouth once daily. ondansetron orally disintegrating (ZOFRAN ODT) 4 mg disintegrating tablet Take 1 tablet by mouth every 8 hours as needed for nausea/vomiting. estradiol (ESTRACE) 0.01 % (0.1 mg/gram) vaginal cream Use 1 g vaginally every other day. At bedtime SUMAtriptan (IMITREX) 100 mg tablet Take one tab by month with onset of headache. Can repeat in 2 hrs. Max of 2 tabs in 24 hrs No current facility-administered medications for this visit. Medications and allergies reviewed by this provider. SOCIAL HISTORY Social History Tobacco Use Smoking status: Never Passive exposure: Never Smokeless tobacco: Never Tobacco comments: No smoking in childhood home. No significant ETS in household since. Vaping Use Vaping status: Never Used Substance Use Topics Alcohol use: Yes Alcohol/week: 1.0 standard drink of alcohol Types: 1 Glasses of Wine (5oz) per week Comment: socially Drug use: No REVIEW OF SYSTEMS All other reviewed and negative other than HPI. OBJECTIVE: BP 164/88 Pulse 97 Temp 36.8 C (98.3 F) Resp 18 Wt 63.5 kg (140 lb) SpO2 96% BMI 24.80 kg/m . Vital signs reviewed by this provider. GENERAL: NAD, alert and oriented. SKIN: Unremarkable, no rash or skin lesions to exposed skin EYES: conjunctiva clear. ation, no edema. ABDOMEN: Soft, non-tender, no masses. BACK: No CVA tenderness PELVIC: External genitalia normal, no vaginal irritation, swelling, or redness. Small amount of whitish discharge noted, likely from estrogen cream as per patient reports she applied this AM Anxiety Screening due on 08/21/2025 Influenza Vaccine(1) due on 07/07/2025 Depression Screening due on 02/26/2026 Medicare Annual Wellness Visit due on 02/26/2026 Diabetes Screening due on 02/15/2028 DTaP,Tdap,Td Vaccine(3 - Td or Tdap) due on 09/09/2028 Bone Density Screening Completed Advance Directive Discussion Completed RSV Vaccine Completed Shingrix Vaccine Completed Pneumococcal Vaccine: 50+ Completed Colorectal Cancer Screening Discontinued 1. Vaginal discomfort (N94.9) - No vaginal irritation, swelling, or redness observed on exam; minimal whitish discharge noted, likely secondary to estrogen cream application. - Initiated Diflucan, 1 tablet, single dose; potential interaction with Coumadin discussed, advisedmonitoring for signs of bleeding. - Obtained culture for Clementina and sent to lab. 2. Recurrent urinary tract infection (N39.0) - Recent UTI treated with nitrofurantoin, which was discontinued due to bacterial resistance; subsequently treated with Cipro for 3 days. - No current dysuria, hematuria, or fever; no abdominal or back pain reported. - Patient unable to provide urine sample in office; will return later today for urine dipstick test. - If urine dipstick indicates infection, will send for culture. - Advised follow-up with urogynecologist if symptoms persist or worsen. Christiana Rodriguez APRN.KATIE Prescription instructions reviewed with patient as applicable. Patient advised if symptoms do not improve or if symptoms worsen sooner, to contact their primary care physician. Potential red flag symptoms discussed with the patient. Reviewed appropriate action plan to take if red flag symptoms occur. Patient agreeable to treatment plan. Medical Decision Making: Problems: Low: Stable chronic illness Moderate: New problem with uncertain prognosis Data: Unique test(s) ordered: 2 Risk: Moderate: Drug management Medical Decision Making Level: 4 - Moderate documented in this encounterLouis [facility] Telephone encounter Note * Telephone Encounter - Clarita Neely LPN - 05/27/2025 2:47 PM EDT Spoke with pt. She states she is not having any itching and sx are not like a yeast infection. Pt advises that she normally sees Dr Coello but she is out of her office for the month of May and there is no coverage for her. She advises that she got a letter advising of this and if she had any issues while Dr Coello is out to see her PCP. Pt is wanting to be seen for this d/t they leave for vacation on 06/13/25 and would like to get this resolved as soon as possible. Pt was scheduled with Christiana Diaz tomorrow as no appointment available within [facility]. Clarita Neely LPN [facility]07-22-2025 Miscellaneous Notes* Telephone Encounter - Clarita Neely LPN - 05/27/2025 2:47 PM EDT Spoke with pt. She states she is not having any itching and sx are not like a yeast infection. Pt advises that she normally sees Dr Coello but she is out of her office for the month of May and there is no coverage for her. She advises that she got a letter advising of this and if she had any issues while Dr Coello is out to see her PCP. Pt is wanting to be seen for this d/t they leave for vacation on 06/13/25 and would like to get this resolved as soon as possible. Pt was scheduled with Christiana Diaz tomorrow as no appointment available within [facility]. Clarita Neely LPN * Telephone Encounter - Rayna Martinez PA-C - 05/27/2025 2:05 PM EDT Ask her if it seems like a yeast infection. She could try OTC monistat 7 and then follow up if not improving. * Telephone Encounter - Marielle Suarez RN - 05/27/2025 1:31 PM EDT Patient was seen in Urgent Care on 05/14/25 and treated for UTI. She has completed her Cipro and is experiencing vaginal discomfort. Reports a constant dull vaginal ache type discomfort. Reports all other sx's have improved since completing Cipro. She states this has happened after UTIs before and she used to see UroGyn for this. Patient asking if [facility] referral can be placed or does she need to make appt with PCP team first? Please advise patient. Marielle Suarez RN documented in this encounterLouis [facility]07-22-2025 Telephone encounter Note * Telephone Encounter - Rayna Martinez PA-C - 05/27/2025 2:05 PM EDT Ask her if it seems like a yeast infection. She could try OTC monistat 7 and then follow up if not improving. [facility] Work Phone: [phone] 246-781807-22-2025 Telephone encounter Note* Telephone Encounter - Marielle Suarez RN - 05/27/2025 1:31 PM EDT Patient was seen in Urgent Care on 05/14/25 and treated for UTI. She has completed her Cipro and is experiencing vaginal discomfort. Reports a constant dull vaginal ache type discomfort. Reports all other sx's have improved since completing Cipro. She states this has happened after UTIs before and she used to see UroGyn for this. Patient asking if [facility] referral can be placed or does she need to make appt with PCP team first? Please advise patient. Marielle Suarez RN [facility]07-15-[facility]25 Telephone encounter Note* Telephone Encounter - Sharmila Weiss [facility] - 05/20/2025 9:52 AM EDT [facility] Anticoagulation Episode Summary Anticoagulation Care Providers Provider Role Specialty Phone number Rangel Bonilla MD Referring Family Medicine [phone] Gregg Ferris is a 79 year old year old female patient being evaluated today for a Telemanagement visit. Patient is currently on the following anticoagulant(s) Warfarin. Labs Lab Results Component Value Date INR 1.9 (A) 05/20/2025 INR 3.6 (A) 05/06/2025 INR 3.5 (A) 04/24/2025 Lab Results Component Value Date HB 13.8 02/14/2025 HB 14.2 05/21/2024 HB 15.5 01/17/2024 Lab Results Component Value Date HCT 43.4 02/14/2025 HCT 45.0 05/21/2024 HCT 47.4 (H) 01/17/2024 Lab Results Component Value Date PLT 220 02/14/2025 PLT 309 05/21/2024 PLT 155 01/17/2024 Lab Results Component Value Date CREAT 0.76 02/14/2025 CREAT 0.68 01/16/2025 CREAT 0.79 01/17/2024 No components found for: [id number] Lab Results Component Value Date ALT 12 02/14/2025 ALT 18 01/17/2024 ALT 15 01/09/2023 Lab Results Component Value Date AST 19 02/14/2025 AST 22 01/17/2024 AST 17 01/09/2023 Estimated Creatinine Clearance: 52.7 mL/min (based on SCr of 0.76 mg/dL). ALLERGIES Allergen Reactions Willis Inhibitors Cough Carafate [Sucralfat* Diarrhea Eliquis [Apixaban] Other: See Comments Nausea, decreased appetite and chills Protonix [Pantopraz* Other: See Comments Stomach pain Xarelto [Rivaroxaba* Other: See Comments lack of energy, very fatigued, diarrhea, nausea, lack of appetite. Indication for Warfarin: Anticoagulation Episode Summary Current INR goal: 2.0-3.0 Assessment: INR result of 1.9 is SUBtherapeutic due to: No obvious cause (patient denies liver, green tea, new herbal/nutritional supplements - such as Boost, Ensure, an increase in vit K foods and/or V8 type juices, any changes in warfarin tablet, or missed doses) Plan: Current Warfarin Dosing As of 05/20/2025 Full warfarin instructions: 05/20: 7.5 mg; Otherwise 5 mg every day Called and spoke to patient/caregiver Advised patient to increase dose for 1 day only then resume weekly regimen Next home INR check scheduled on 06/03/2025 Patient verbalizes understanding of the plan. Patient advised to call the PAC with any medication changes, bleeding/bruising concerns, recent changes in vitamin k consumption, if any procedures are coming up, if they have been ill or in the hospital, and if they have missed any doses of warfarin. Sharmila Weiss RPh Clinical Pharmacist, Pharmacy Anticoagulation Clinic [facility] Pager: [phone]. [facility]07-15-2025 Miscellaneous Notes* Telephone Encounter - Sharmila Weiss RPh - 05/20/2025 9:52 AM EDT [facility] Anticoagulation Episode Summary Anticoagulation Care Providers Provider Role Specialty Phone number Rangel Bonilla MD Referring Family Medicine [phone] Gregg Ferris is a 79 year old year old female patient being evaluated today for a Telemanagement visit. Patient is currently on the following anticoagulant(s) Warfarin. Labs Lab Results Component Value Date INR 1.9 (A) 05/20/2025 INR 3.6 (A) 05/06/2025 INR 3.5 (A) 04/24/2025 Lab Results Component Value Date HB 13.8 02/14/2025 HB 14.2 05/21/2024 HB 15.5 01/17/2024 Lab Results Component Value Date HCT 43.4 02/14/2025 HCT 45.0 05/21/2024 HCT 47.4 (H) 01/17/2024 Lab Results Component Value Date PLT 220 02/14/2025 PLT 309 05/21/2024 PLT 155 01/17/2024 Lab Results Component Value Date CREAT 0.76 02/14/2025 CREAT 0.68 01/16/2025 CREAT 0.79 01/17/2024 No components found for: TBILI3 Lab Results Component Value Date ALT 12 02/14/2025 ALT 18 01/17/2024 ALT 15 01/09/2023 Lab Results Component Value Date AST 19 02/14/2025 AST 22 01/17/2024 AST 17 01/09/2023 Estimated Creatinine Clearance: 52.7 mL/min (based on SCr of 0.76 mg/dL). ALLERGIES Allergen Reactions Willis Inhibitors Cough Carafate [Sucralfat* Diarrhea Eliquis [Apixaban] Other: See Comments Nausea, decreased appetite and chills Protonix [Pantopraz* Other: See Comments Stomach pain Xarelto [Rivaroxaba* Other: See Comments lack of energy, very fatigued, diarrhea, nausea, lack of appetite. Indication for Warfarin: Anticoagulation Episode Summary Current INR goal: 2.0-3.0 Assessment: INR result of 1.9 is SUBtherapeutic due to: No obvious cause (patient denies liver, green tea, new herbal/nutritional supplements - such as Boost, Ensure, an increase in vit K foods and/or V8 type juices, any changes in warfarin tablet, or missed doses) Plan: Current Warfarin Dosing As of 05/20/2025 Full warfarin instructions: 05/20: 7.5 mg; Otherwise 5 mg every day Called and spoke to patient/caregiver Advised patient to increase dose for 1 day only then resume weekly regimen Next home INR check scheduled on 06/03/2025 Patient verbalizes understanding of the plan. Patient advised to call the PAC with any medication changes, bleeding/bruising concerns, recent changes in vitamin k consumption, if any procedures are coming up, if they have been ill or in the hospital, and if they have missed any doses of warfarin. Sharmila Weiss RPh Clinical Pharmacist, Pharmacy Anticoagulation Clinic Pharm[facility] Pager: [phone]. documented in this encounterLouis [facility]07-12-2025 Telephone encounter Note * Telephone Encounter - Jean Pierre Garcia APRN.CNP - 05/17/2025 11:19 AM EDT Patient called and notified of urine culture results showing resistance to Macrobid which had been prescribed to her. She will be placed on Cipro and will stop taking the Macrobid. She understands that the Cipro can affect her Coumadin efficacy. [facility]07-12-2025 Miscellaneous Notes* Telephone Encounter - Jean Pierre Garcia APRN.CNP - 05/17/2025 11:19 AM EDT Patient called and notified of urine culture results showing resistance to Macrobid which had been prescribed to her. She will be placed on Cipro and will stop taking the Macrobid. She understands that the Cipro can affect her Coumadin efficacy. documented in this encounterLouis [facility]07-09-[facility] History of Present illness Narrative* Rangel Gayle APRN.CNP - 05/14/2025 4:52 PM EDT Subjective HPI Nontoxic-appearing 79-year-old female presents urgent care chief complaint possible UTI. Duration of symptoms 1 day. Associated symptoms dysuria frequency urgency. Patient states history of UTIs to see urogyn for this. Is on daily prophylactic medication. Takes Keflex daily. Presents today for evaluation. Overall feels well. No fever body aches chills nausea vomiting abdominal pain flank pain no vaginal discharge itching or burning. Past medical history prescription medications allergies reviewed. 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 Duarte at [facility]. 08/18/[address] Fischer at [place] Chronic throat clearing 02/01/2018 Ectopic gastric mucosa of multiple sites 05/06/[address] Granado 04/2022 Elevated fasting blood sugar 08/14/2018 Encounter for gynecological examination without abnormal finding 07/20/[address] [facility]. Essential hypertension 07/20/2016 GERD without esophagitis 01/14/2008 Hemorrhoids 03/03/2017 Hiatal hernia History of pulmonary embolus (PE) 04/08/202404/2024: 4 of them History of pulmonary embolus (PE) 04/08/202404/2024: 4 of them, to be on anticoagulation for 6 months. History of pulmonary embolus (PE) 04/08/202404/2024: 4 of them, per pulm needs chronic anticoagulation. History of recurrent UTIs 07/19/2018 History of subdural hematoma 03/03/2017 After a fall Hypoxia 04/15/2024 After PE's 04/2024 Lichen sclerosus et atrophicus 03/03/2017 Living will on file at physician's office 01/16/2023 DPA: Nate (Son) Lumbago 03/21/[address] Duarte at [facility]. Medicare annual wellness visit, subsequent 08/14/2018 Medicare Part B: 06/06/2008 last done: 08/23/2019 Migraine without aura and without status migrainosus, not intractable 07/20/2016 Mixed hyperlipidemia 01/14/2008 Postmenopausal atrophic vaginitis 06/06/2012 Pulmonary nodules 10/03/201609/2016, follow uo CT in a year, 08/[address] Zheng Right thyroid nodule 10/03/2016 Had benign biopsy 09/2016 at [facility] Seasonal allergies 07/20/2016 Sinus arrhythmia Spinal stenosis, lumbar region, without neurogenic claudication 03/21/2012 PAST SURGICAL HISTORY Procedure Laterality Date 2D ECHO (EXEP) 09/2016 EF=65%, mild 1+ MR, TR APPENDECTOMY BACK SURGERY HX BRAIN SURGERY HX 2000 Brain bleed COLONOSCOPY 04/29/2013 Dr. Lu, repeat 10 years ESOPHAGOGASTRODUODENOSCOPY TRANSORAL DIAGNOSTIC 06/22/2020 EGD HEMORRHOIDECTOMY XTRNL 2/> COLUMN/GROUP IMMUNOCHEMICAL FECAL OCCULT BLOOD TEST 10/27/2021 negative LAPAROSCOPY SURG CHOLECYSTECTOMY 2002 Cholecystectomy, lap PAST [...] ALLERGIES Willis Inhibitors, Carafate [Sucralfate], Eliquis [Apixaban], Protonix [Pantoprazole], and Xarelto [Rivaroxaban] MEDICATIONS warfarin (COUMADIN) 5 mg tablet 1.5 tabs for three days and then go to taking 1.5 tabs on , monand 1 tab all other days. simvastatin (ZOCOR) 10 mg tablet Take 1 tablet by mouth daily at bedtime. famotidine (PEPCID) 20 mg tablet Take 20 mg by mouth daily at bedtime. Per Friend Cholecalciferol, Vitamin D3, (VITAMIN D-3) 50 mcg (2,000 unit) cap Take 1 capsule by mouth once daily. ondansetron orally disintegrating (ZOFRAN ODT) 4 mg disintegrating tablet Take 1 tablet by mouth every 8 hours as needed for nausea/vomiting. estradiol (ESTRACE) 0.01 % (0.1 mg/gram) vaginal cream Use 1 g vaginally every other day. At bedtime SUMAtriptan (IMITREX) 100 mg tablet Take one tab by month with onset of headache. Can repeat in 2 hrs. Max of 2 tabs in 24 hrs FAMILY HISTORY Problem Relation Age of Onset Coronary Artery Disease Mother Fatal [place] in her 80s Diabetes Father ADULT ONSET [...] per week Comment: socially Drug use: No BP 132/82 Pulse 100 Temp 36.7 C (98 F) (Tympanic) Resp 18 Wt 65.2 kg (143 lb 11.8 oz) SpO2 98% BMI 25.46 kg/m Review of Systems Constitutional: Negative for chills, fever and malaise/fatigue. Cardiovascular: Negative for chest pain. Gastrointestinal: Negative for abdominal pain, constipation, diarrhea, nausea and vomiting. Genitourinary: Positive for dysuria, frequency and urgency. Negative for flank pain and hematuria. Musculoskeletal: Negative for myalgias. Objective Physical Exam Vitals and nursing note reviewed. Constitutional: General: She is not in acute distress. Appearance: She is not diaphoretic. HENT: Head: Jaw: No trismus. Right Ear: Hearing normal. No decreased hearing noted. No drainage, swelling or tenderness. Tympanic membrane is not perforated, erythematous or bulging. Left Ear: Hearing normal. No decreased hearing noted. No drainage, swelling or tenderness. Tympanicmembrane is not perforated, erythematous or bulging. Mouth/Throat: Pharynx: Uvula midline. No uvula swelling. Tonsils: No tonsillar abscesses. Cardiovascular: Rate and Rhythm: Normal rate and regular rhythm. Pulses: Normal pulses. Pulmonary: Effort: Pulmonary effort is normal. No respiratory distress. Breath sounds: Normal breath sounds. Chest: Chest wall: No tenderness. Abdominal: General: Bowel sounds are normal. There is no distension. Palpations: Abdomen is soft. Abdomen is not rigid. Tenderness: There is no abdominal tenderness. There is no right CVA tenderness, left CVA tenderness, guarding or rebound. Negative signs include Waters's sign and McBurney's sign. Musculoskeletal: General: No tenderness. Lymphadenopathy: Head: Right side of head: No submental, submandibular, tonsillar, preauricular, posterior auricular or occipital adenopathy. Left side of head: No submental, submandibular, tonsillar, preauricular, posterior auricular or occipital adenopathy. Cervical: Right cervical: No superficial or posterior cervical adenopathy. Left cervical: No superficial or posterior cervical adenopathy. Skin: General: Skin is warm and dry. Findings: No rash. Neurological: Mental Status: She is alert and oriented to person, place, and time. ASSESSMENT/PLAN: 1. Urinary frequency - ICD9: 788.41, ICD10: R35.0 - UA DIP, URINE (POC) - BACTERIAL CULTURE, URINE Urine positive for leukocytes nitrites. Previous urine culture reviewed pansensitive. Placed on Macrobid at today's visit. Will culture urine. Treat accordingly culture result. Patient was educated on supportive therapies. Patient will follow up with primary care provider as needed. Patient was inst ructed to immediately proceed to emergency room for any new, worsening, or symptoms lasting longer than anticipated. The patient's clinical presentation is otherwise unremarkable at this time. Based on exam and clinical finding, the patient is stable for discharge. Plan of care was discussed with patient. Patient verbalizes understanding and agrees to plan of care. This note was generated using Pzoom software. It may contain errors in wording, punctuation, or spelling. Rangel Gayle APRN.[employer] documented in this encounterLouis [facility]07-01-2025 Telephone encounter Note * Telephone Encounter - Sharmila Weiss [facility] - 05/06/2025 11:47 AM EDT [facility] Ambulatory Pharm[facility] Anticoagulation Clinic Anticoagulation Episode Summary Anticoagulation Care Providers Provider Role Specialty Phone number Rangel Bonilla MD Referring Family Medicine [phone] Gregg Ferris is a 79 year old year old female patient being evaluated today for a Telemanagement visit. Patient is currently on the following anticoagulant(s) Warfarin. Labs Lab Results Component Value Date INR 3.6 (A) 05/06/2025 INR 3.5 (A) 04/24/2025 INR 4.1 (H) 04/24/2025 Lab Results Component Value Date HB 13.8 02/14/2025 HB 14.2 05/21/2024 HB 15.5 01/17/2024 Lab Results Component Value Date HCT 43.4 02/14/2025 HCT 45.0 05/21/2024 HCT 47.4 (H) 01/17/2024 Lab Results Component Value Date PLT 220 02/14/2025 PLT 309 05/21/2024 PLT 155 01/17/2024 Lab Results Component Value Date CREAT 0.76 02/14/2025 CREAT 0.68 01/16/2025 CREAT 0.79 01/17/2024 No components found for: TBILI3 Lab Results Component Value Date ALT 12 02/14/2025 ALT 18 01/17/2024 ALT 15 01/09/2023 Lab Results Component Value Date AST 19 02/14/2025 AST 22 01/17/2024 AST 17 01/09/2023 Estimated Creatinine Clearance: 48 mL/min (based on SCr of 0.76 mg/dL). ALLERGIES Allergen Reactions Willis Inhibitors Cough Carafate [Sucralfat* Diarrhea Eliquis [Apixaban] Other: See Comments Nausea, decreased appetite and chills Protonix [Pantopraz* Other: See Comments Stomach pain Xarelto [Rivaroxaba* Other: See Comments lack of energy, very fatigued, diarrhea, nausea, lack of appetite. Indication for Warfarin: Anticoagulation Episode Summary Current INR goal: 2.0-3.0 Assessment: INR result of 3.6 is SUPRAtherapeutic due to: No obvious cause (patient denies medication change, grapefruit/cranberry/pomegranate/raine ingestion, OTC medication use, change in herbal/nutritional supplement, accidental overdosage, change in warfarin tablet shape or color, change in vit K consumption, recent illness (NVD, fever), any changes to general health, changes in tobacco use, or EtOH consumption) Plan: Current Warfarin Dosing As of 05/06/2025 Full warfarin instructions: 05/06: 2.5 mg; Otherwise 5 mg every day Called and spoke to patient/caregiver Advised patient to decrease dose for 1 day only then resume weekly regimen Next home INR check scheduled on 05/20/2025 Patient verbalizes understanding of the plan. Patient advised to call the PAC with any medication changes, bleeding/bruising concerns, recent changes in vitamin k consumption, if any procedures are coming up, if they have been ill or in the hospital, and if they have missed any doses of warfarin. Sharmila Weiss RPh Clinical Pharmacist, Pharmacy Anticoagulation Clinic Pharmacy Anticoagulation Clinic Pager: [phone]. [facility]07-01-2025 Miscellaneous Notes* Telephone Encounter - Sharmila Weiss RPh - 05/06/2025 11:47 AM EDT [facility] Amb[facility] Anticoagulation Clinic Anticoagulation Episode Summary Anticoagulation Care Providers Provider Role Specialty Phone number Rangel Bonilla MD Referring Family Medicine [phone] Gregg Ferris is a 79 year old year old female patient being evaluated today for a Telemanagement visit. Patient is currently on the following anticoagulant(s) Warfarin. Labs Lab Results Component Value Date INR 3.6 (A) 05/06/2025 INR 3.5 (A) 04/24/2025 INR 4.1 (H) 04/24/2025 Lab Results Component Value Date HB 13.8 02/14/2025 HB 14.2 05/21/2024 HB 15.5 01/17/2024 Lab Results Component Value Date HCT 43.4 02/14/2025 HCT 45.0 05/21/2024 HCT 47.4 (H) 01/17/2024 Lab Results Component Value Date PLT 220 02/14/2025 PLT 309 05/21/2024 PLT 155 01/17/2024 Lab Results Component Value Date CREAT 0.76 02/14/2025 CREAT 0.68 01/16/2025 CREAT 0.79 01/17/2024 No components found for: TBILI3 Lab Results Component Value Date ALT 12 02/14/2025 ALT 18 01/17/2024 ALT 15 01/09/2023 Lab Results Component Value Date AST 19 02/14/2025 AST 22 01/17/2024 AST 17 01/09/2023 Estimated Creatinine Clearance: 48 mL/min (based on SCr of 0.76 mg/dL). ALLERGIES Allergen Reactions Willis Inhibitors Cough Carafate [Sucralfat* Diarrhea Eliquis [Apixaban] Other: See Comments Nausea, decreased appetite and chills Protonix [Pantopraz* Other: See Comments Stomach pain Xarelto [Rivaroxaba* Other: See Comments lack of energy, very fatigued, diarrhea, nausea, lack of appetite. Indication for Warfarin: Anticoagulation Episode Summary Current INR goal: 2.0-3.0 Assessment: INR result of 3.6 is SUPRAtherapeutic due to: No obvious cause (patient denies medication change, grapefruit/cranberry/pomegranate/raine ingestion, OTC medication use, change in herbal/nutritional supplement, accidental overdosage, change in warfarin tablet shape or color, change in vit K consumption, recent illness (NVD, fever), any changes to general health, changes in tobacco use, or EtOH consumption) Plan: Current Warfarin Dosing As of 05/06/2025 Full warfarin instructions: 05/06: 2.5 mg; Otherwise 5 mg every day Called and spoke to patient/caregiver Advised patient to decrease dose for 1 day only then resume weekly regimen Next home INR check scheduled on 05/20/2025 Patient verbalizes understanding of the plan. Patient advised to call the PAC with any medication changes, bleeding/bruising concerns, recent changes in vitamin k consumption, if any procedures are coming up, if they have been ill or in the hospital, and if they have missed any doses of warfarin. Sharmila Weiss RPh Clinical Pharmacist, Pharmacy Anticoagulation Clinic Pharmacy Antico[facility] Pager: [phone]. documented in this encounterLouis [facility] Telephone encounter Note * Telephone Encounter - Anita Salazar RPh - 04/24/2025 5:26 PM EDT [facility] Anticoagulation Episode Summary Anticoagulation Care Providers Provider Role Specialty Phone number Rangel Bonilla MD Referring Family Medicine [phone] Gregg Ferris is a 79 year old year old female patient being evaluated today for a Telemanagement visit. Patient is currently on the following anticoagulant(s) Warfarin. Labs Lab Results Component Value Date INR 3.5 (A) 04/24/2025 INR 4.1 (H) 04/24/2025 INR 2.1 (H) 04/10/2025 Lab Results Component Value Date HB 13.8 02/14/2025 HB 14.2 05/21/2024 HB 15.5 01/17/2024 Lab Results Component Value Date HCT 43.4 02/14/2025 HCT 45.0 05/21/2024 HCT 47.4 (H) 01/17/2024 Lab Results Component Value Date PLT 220 02/14/2025 PLT 309 05/21/2024 PLT 155 01/17/2024 Lab Results Component Value Date CREAT 0.76 02/14/2025 CREAT 0.68 01/16/2025 CREAT 0.79 01/17/2024 No components found for: TBILI3 Lab Results Component Value Date ALT 12 02/14/2025 ALT 18 01/17/2024 ALT 15 01/09/2023 Lab Results Component Value Date AST 19 02/14/2025 AST 22 01/17/2024 AST 17 01/09/2023 Estimated Creatinine Clearance: 48 mL/min (based on SCr of 0.76 mg/dL). ALLERGIES Allergen Reactions Willis Inhibitors Cough Carafate [Sucralfat* Diarrhea Eliquis [Apixaban] Other: See Comments Nausea, decreased appetite and chills Protonix [Pantopraz* Other: See Comments Stomach pain Xarelto [Rivaroxaba* Other: See Comments lack of energy, very fatigued, diarrhea, nausea, lack of appetite. Indication for Warfarin: History of pulmonary embolus (pe) care home (current) use of anticoagulants Anticoagulation Episode Summary Current INR goal: 2.0-3.0 Assessment: INR result of 3.5 is SUPRAtherapeutic due to: Grapefruit/cranberry consumption Plan: Current Warfarin Dosing As of 04/24/2025 Full warfarin instructions: 04/24: Hold; Otherwise 5 mg every day Called and spoke to patient/caregiver Advised patient to hold 1 dose then decrease current regimen Next home INR check scheduled on 05/08/2025 Patient verbalizes understanding of the plan. Patient denies need for refills. Patient advised to call the PAC with any medication changes, bleeding/bruising concerns, recent changes in vitamin k consumption, if any procedures are coming up, if they have been ill or in the hospital, and if they have missed any doses of warfarin. Anita Salazar RPh Clinical Pharmacist, Pharmacy Anticoagulation Clinic Pharmacy Anticoagulation Clinic Pager: [phone]. [facility]06[facility] Miscellaneous Notes* Telephone Encounter - Anita Salazar RPh - 04/24/2025 5:26 PM EDT [facility] Anticoagulation Episode Summary Anticoagulation Care Providers Provider Role Specialty Phone number Rangel Bonilla MD Referring Family Medicine [phone] Gregg Ferris is a 79 year old year old female patient being evaluated today for a Telemanagement visit. Patient is currently on the following anticoagulant(s) Warfarin. Labs Lab Results Component Value Date INR 3.5 (A) 04/24/2025 INR 4.1 (H) 04/24/2025 INR 2.1 (H) 04/10/2025 Lab Results Component Value Date HB 13.8 02/14/2025 HB 14.2 05/21/2024 HB 15.5 01/17/2024 Lab Results Component Value Date HCT 43.4 02/14/2025 HCT 45.0 05/21/2024 HCT 47.4 (H) 01/17/2024 Lab Results Component Value Date PLT 220 02/14/2025 PLT 309 05/21/2024 PLT 155 01/17/2024 Lab Results Component Value Date CREAT 0.76 02/14/2025 CREAT 0.68 01/16/2025 CREAT 0.79 01/17/2024 No components found for: TBILI3 Lab Results Component Value Date ALT 12 02/14/2025 ALT 18 01/17/2024 ALT 15 01/09/2023 Lab Results Component Value Date AST 19 02/14/2025 AST 22 01/17/2024 AST 17 01/09/2023 Estimated Creatinine Clearance: 48 mL/min (based on SCr of 0.76 mg/dL). ALLERGIES Allergen Reactions Willis Inhibitors Cough Carafate [Sucralfat* Diarrhea Eliquis [Apixaban] Other: See Comments Nausea, decreased appetite and chills Protonix [Pantopraz* Other: See Comments Stomach pain Xarelto [Rivaroxaba* Other: See Comments lack of energy, very fatigued, diarrhea, nausea, lack of appetite. Indication for Warfarin: History of pulmonary embolus (pe) 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 Anticoagulation Episode Summary Current INR goal: 2.0-3.0 Assessment: INR result of 3.5 is SUPRAtherapeutic due to: Grapefruit/cranberry consumption Plan: Current Warfarin Dosing As of 04/24/2025 Full warfarin instructions: 04/24: Hold; Otherwise 5 mg every day Called and spoke to patient/caregiver Advised patient to hold 1 dose then decrease current regimen Next home INR check scheduled on 05/08/2025 Patient verbalizes understanding of the plan. Patient denies need for refills. Patient advised to call the PAC with any medication changes, bleeding/bruising concerns, recent changes in vitamin k consumption, if any procedures are coming up, if they have been ill or in the hospital, and if they have missed any doses of warfarin. Anita Salazar RPh Clinical Pharmacist, Pharmacy Anticoagulation Clinic Pharmacy Anticoagulation Clinic Pager: [phone]. documented in this encounterLouis [facility]06-[facility] Telephone encounter Note * Telephone Encounter - Anita Salazar RPh - 04/24/2025 11:26 AM EDT [facility] Anticoagulation Episode Summary Anticoagulation Care Providers Provider Role Specialty Phone number Rangel Bonilla MD Referring Family Medicine [phone] Gregg Ferris is a 79 year old year old female patient being evaluated today for a Lab INR. Patient is currently on the following anticoagulant(s) Warfarin. Labs Lab Results Component Value Date INR 4.1 (H) 04/24/2025 INR 2.1 (H) 04/10/2025 INR 5.1 (H) 04/03/2025 Lab Results Component Value Date HB 13.8 02/14/2025 HB 14.2 05/21/2024 HB 15.5 01/17/2024 Lab Results Component Value Date HCT 43.4 02/14/2025 HCT 45.0 05/21/2024 HCT 47.4 (H) 01/17/2024 Lab Results Component Value Date PLT 220 02/14/2025 PLT 309 05/21/2024 PLT 155 01/17/2024 Lab Results Component Value Date CREAT 0.76 02/14/2025 CREAT 0.68 01/16/2025 CREAT 0.79 01/17/2024 No components found for: TBILI3 Lab Results Component Value Date ALT 12 02/14/2025 ALT 18 01/17/2024 ALT 15 01/09/2023 Lab Results Component Value Date AST 19 02/14/2025 AST 22 01/17/2024 AST 17 01/09/2023 Estimated Creatinine Clearance: 48 mL/min (based on SCr of 0.76 mg/dL). ALLERGIES Allergen Reactions Willis Inhibitors Cough Carafate [Sucralfat* Diarrhea Eliquis [Apixaban] Other: See Comments Nausea, decreased appetite and chills Protonix [Pantopraz* Other: See Comments Stomach pain Xarelto [Rivaroxaba* Other: See Comments lack of energy, very fatigued, diarrhea, nausea, lack of appetite. Indication for Warfarin: History of pulmonary embolus (pe) 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 Anticoagulation Episode Summary Current INR goal: 2.0-3.0 Assessment: INR result of 4.1 is SUPRAtherapeutic due to: Grapefruit/cranberry consumption Patient started an Align urinary supplement that contain cranberry extract Patient stated she is having her home meter set up today. Plan: Current Warfarin Dosing As of 04/24/2025 Full warfarin instructions: 04/24: Hold; Otherwise 5 mg every day Called and spoke to patient/caregiver Advised patient to hold 1 dose then decrease current regimen Next home INR check scheduled on 05/08/2025 Patient verbalizes understanding of the plan. Patient denies need for refills. Patient advised to call the PAC with any medication changes, bleeding/bruising concerns, recent changes in vitamin k consumption, if any procedures are coming up, if they have been ill or in the hospital, and if they have missed any doses of warfarin. Anita Salazar [facility] Clinical Pharmacist, Pharmacy Anticoagulation Clinic Pharmacy Anticoagulation Clinic Pager: [phone]. [facility]06-19-[facility] Miscellaneous Notes* Telephone Encounter - Anita Salazar RPh - 04/24/2025 11:26 AM EDT [facility] Ambulatory [facility] An[facility] Clinic Anticoagulation Episode Summary Anticoagulation Care Providers Provider Role Specialty Phone number Rangel Bonilla MD Referring Family Medicine [phone] Gregg Ferris is a 79 year old year old female patient being evaluated today for a Lab INR. Patient is currently on the following anticoagulant(s) Warfarin. Labs Lab Results Component Value Date INR 4.1 (H) 04/24/2025 INR 2.1 (H) 04/10/2025 INR 5.1 (H) 04/03/2025 Lab Results Component Value Date HB 13.8 02/14/2025 HB 14.2 05/21/2024 HB 15.5 01/17/2024 Lab Results Component Value Date HCT 43.4 02/14/2025 HCT 45.0 05/21/2024 HCT 47.4 (H) 01/17/2024 Lab Results Component Value Date PLT 220 02/14/2025 PLT 309 05/21/2024 PLT 155 01/17/2024 Lab Results Component Value Date CREAT 0.76 02/14/2025 CREAT 0.68 01/16/2025 CREAT 0.79 01/17/2024 No components found for: TBILI3 Lab Results Component Value Date ALT 12 02/14/2025 ALT 18 01/17/2024 ALT 15 01/09/2023 Lab Results Component Value Date AST 19 02/14/2025 AST 22 01/17/2024 AST 17 01/09/2023 Estimated Creatinine Clearance: 48 mL/min (based on SCr of 0.76 mg/dL). ALLERGIES Allergen Reactions Willis Inhibitors Cough Carafate [Sucralfat* Diarrhea Eliquis [Apixaban] Other: See Comments Nausea, decreased appetite and chills Protonix [Pantopraz* Other: See Comments Stomach pain Xarelto [Rivaroxaba* Other: See Comments lack of energy, very fatigued, diarrhea, nausea, lack of appetite. Indication for Warfarin: History of pulmonary embolus (pe) 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 Anticoagulation Episode Summary Current INR goal: 2.0-3.0 Assessment: INR result of 4.1 is SUPRAtherapeutic due to: Grapefruit/cranberry consumption Patient started an Align urinary supplement that contain cranberry extract Patient stated she is having her home meter set up today. Plan: Current Warfarin Dosing As of 04/24/2025 Full warfarin instructions: 04/24: Hold; Otherwise 5 mg every day Called and spoke to patient/caregiver Advised patient to hold 1 dose then decrease current regimen Next home INR check scheduled on 05/08/2025 Patient verbalizes understanding of the plan. Patient denies need for refills. Patient advised to call the PAC with any medication changes, bleeding/bruising concerns, recent changes in vitamin k consumption, if any procedures are coming up, if they have been ill or in the hospital, and if they have missed any doses of warfarin. Anita Salazar RPh Clinical Pharmacist, Pharmacy Anticoagulation Clinic Pharmacy Anticoagulation Clinic Pager: [phone]. documented in this encounterLouis [facility]06-[facility]-2025 NoteHNO ID: [id number] Author: CLARITA NEELY LPN Service: ? Author Type: LICENSED NURSE Type: Progress Notes Filed: 04/23/2025 15:21 Note Text: Scan on 04/23/2025 1:37 PM by Mary Méndez PA-C: Consultation - ENT [facility]06-18-2025 History of Present illness Narrative* Clarita Neely LPN - 04/23/2025 3:21 PM EDT Scan on 04/23/2025 1:37 PM by Mary Méndez PA-C: Consultation - ENT documented in this encounterLouis Stokes [facility]06-16-2025 Miscellaneous Notes* Telephone Encounter - Madison Vazquez MA - 04/21/2025 5:05 PM EDT Patient notified and voiced understanding. After speaking with patient she is already been on for 2months. Updated medication list. Madison Vazquez MA' * Telephone Encounter - Rangel Bonilla MD - 04/21/2025 4:37 PM EDT There is a good possibility that any probiotic maybe an issue. I'm not against her trying it and her coumadin can be adjusted around it and then she should stay on it. She should have an INR checked in 2-3 days after starting it and let the INR clinic know this. If she ends up stopping it after being on it awhile her INR will need checked a few days after to see if coumadin needs readjusted. * Telephone Encounter - Whit Pal RN - 04/21/2025 9:15 AM EDT Patient calls to ask provider his thoughts on a probiotic. 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 Recommended is Align Probiotic Women's Dual Action. Patient is concerned that it has cranberry powder in it and has been told by friends that since being on warfarin she should not take it. She has also researched it and reports that some say it is safe and some say it shouldn't be taken. Patient asking if provider would recommend a probiotic and if so is there a specific one that wouldbe recommended. Patient requests call back at [phone] with provider response. Please review and advise, Whit Pal RN documented in this encounterLouis [facility]06-16-2025 Telephone encounter Note * Telephone Encounter - Madison Vazquez MA - 04/21/2025 5:05 PM EDT Patient notified and voiced understanding. After speaking with patient she is already been on for 2months. Updated medication list. Madison Vazquez MA' [facility]06-16-[facility] Telephone encounter Note* Telephone Encounter - Rangel Bonilla MD - 04/21/2025 4:37 PM EDT There is a good possibility that any probiotic maybe an issue. I'm not against her trying it and her coumadin can be adjusted around it and then she should stay on it. She should have an INR checked in 2-3 days after starting it and let the INR clinic know this. If she ends up stopping it after being on it awhile her INR will need checked a few days after to see if coumadin needs readjusted. [facility]06-[facility] Telephone encounter Note* Telephone Encounter - Whit Pal RN - 04/21/2025 9:15 AM EDT Patient calls to ask provider his thoughts on a probiotic. 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 Recommended is Align Probiotic Women's Dual Action. Patient is concerned that it has cranberry powder in it and has been told by friends that since being on warfarin she should not take it. She has also researched it and reports that some say it is safe and some say it shouldn't be taken. Patient asking if provider would recommend a probiotic and if so is there a specific one that wouldbe recommended. Patient requests call back at [phone] with provider response. Please review and advise, Whit Pal RN [facility]06-08-20[address] [facility] Imaging Services [address] [place], [place] [address] Brain/Head without Contrast MR#: [id number] Acct: [id number] Name: GREGG FERRIS Rep #: [id number] : 1945 F 79 From: Pet er Peer PCP: Dr. Rangel Bonilla MD Status: REG ER Study:Brain/Head without Contrast Date of Exa m: 04/13/25 Exam# [id number] Ordering Dr: Jasmine Olivas DO PROCEDURE: BRAIN/HEAD WITHOUT CONTRAST 04/13/2025 REASON FOR EXAM: DIZZINESS, ON COUMADIN, HX OF SUBDURAL hematoma 20 years ago TECHNIQUE: Head CT without intravenous contrast. Coronal and Sagittal reconstruction serieswere provided. One or more dose reduction techniques were used (e.g., Automated exposure control, adjustment of the mA and/or kV according to patient size, use of iterative reconstruction technique. RADIATION DOSE SUMMARY: CTDlvol: 44.99 mGy DLP: 796.11 mGycm COMPARISON: None. FINDINGS: Brain: No intra-axial or extra-axial hemorrhage. No mass, mass effect or midline shift. Periventricular and deep white matter hypodensity indicating chronic small-vessel ischemic disease. Ventricles and sulci mildly increasedsuggesting involution. Sinuses/Mastoids: Clear. Bones: Right craniotomy defects consistent with history of subdural hematoma andsurgical therapy isimplied. CT/Brain/Head without Contrast IMPRESSION: No acute process detected. Reading Location: [facility] CC: Dr. Rangel Bonilla MD; Dr. Sen Olivas DO ~ Advertising Executive: Signed [facility]06-05-2025 Telephone encounter Note* Telephone Encounter - Sharmila Weiss [facility] - 04/10/2025 3:00 PM EDT [facility] Amb[facility] An[facility]agulation Clinic Anticoagulation Episode Summary Anticoagulation Care Providers Provider Role Specialty Phone number Rangel Bonilla MD Referring Family Medicine [phone] Gregg Ferris is a 79 year old year old female patient being evaluated today for a Lab INR. Patient is currently on the following anticoagulant(s) Warfarin. Labs Lab Results Component Value Date INR 2.1 (H) 04/10/2025 INR 5.1 (H) 04/03/2025 INR 2.4 (H) 03/24/2025 Lab Results Component Value Date HB 13.8 02/14/2025 HB 14.2 05/21/2024 HB 15.5 01/17/2024 Lab Results Component Value Date HCT 43.4 02/14/2025 HCT 45.0 05/21/2024 HCT 47.4 (H) 01/17/2024 Lab Results Component Value Date PLT 220 02/14/2025 PLT 309 05/21/2024 PLT 155 01/17/2024 Lab Results Component Value Date CREAT 0.76 02/14/2025 CREAT 0.68 01/16/2025 CREAT 0.79 01/17/2024 No components found for: TBILI3 Lab Results Component Value Date ALT 12 02/14/2025 ALT 18 01/17/2024 ALT 15 01/09/2023 Lab Results Component Value Date AST 19 02/14/2025 AST 22 01/17/2024 AST 17 01/09/2023 Estimated Creatinine Clearance: 48 mL/min (based on SCr of 0.76 mg/dL). ALLERGIES Allergen Reactions Willis Inhibitors Cough Carafate [Sucralfat* Diarrhea Eliquis [Apixaban] Other: See Comments Nausea, decreased appetite and chills Protonix [Pantopraz* Other: See Comments Stomach pain Xarelto [Rivaroxaba* Other: See Comments lack of energy, very fatigued, diarrhea, nausea, lack of appetite. Indication for Warfarin: Anticoagulation Episode Summary Current INR goal: 2.0-3.0 Assessment: INR result of 2.1 is therapeutic Plan: Current Warfarin Dosing As of 04/10/2025 Full warfarin instructions: 7.5 mg every Mon, Sat; 5 mg all other days Called and spoke to patient/caregiver Advised patient to continue current weekly dose as noted above Next lab INR check scheduled on 04/24/25 Patient verbalizes understanding of the plan. Patient advised to call the PAC with any medication changes, bleeding/bruising concerns, recent changes in vitamin k consumption, if any procedures are coming up, if they have been ill or in the hospital, and if they have missed any doses of warfarin. Sharmila Weiss RPh Clinical Pharmacist, Pharmacy Anticoagulation Clinic Pharmacy Anticoagulation Clinic Pager: [phone]. [facility]06-05-[facility] Miscellaneous Notes* Telephone Encounter - Sharmila Weiss RPh - 04/10/2025 3:00 PM EDT [facility] Ambulatory [facility] Anticoagulation Clinic Anticoagulation Episode Summary Anticoagulation Care Providers Provider Role Specialty Phone number Rangel Bonilla MD Referring Family Medicine [phone] Gregg Ferris is a 79 year old year old female patient being evaluated today for a Lab INR. Patient is currently on the following anticoagulant(s) Warfarin. Labs Lab Results Component Value Date INR 2.1 (H) 04/10/2025 INR 5.1 (H) 04/03/2025 INR 2.4 (H) 03/24/2025 Lab Results Component Value Date HB 13.8 02/14/2025 HB 14.2 05/21/2024 HB 15.5 01/17/2024 Lab Results Component Value Date HCT 43.4 02/14/2025 HCT 45.0 05/21/2024 HCT 47.4 (H) 01/17/2024 Lab Results Component Value Date PLT 220 02/14/2025 PLT 309 05/21/2024 PLT 155 01/17/2024 Lab Results Component Value Date CREAT 0.76 02/14/2025 CREAT 0.68 01/16/2025 CREAT 0.79 01/17/2024 No components found for: TBILI3 Lab Results Component Value Date ALT 12 02/14/2025 ALT 18 01/17/2024 ALT 15 01/09/2023 Lab Results Component Value Date AST 19 02/14/2025 AST 22 01/17/2024 AST 17 01/09/2023 Estimated Creatinine Clearance: 48 mL/min (based on SCr of 0.76 mg/dL). ALLERGIES Allergen Reactions Willis Inhibitors Cough Carafate [Sucralfat* Diarrhea Eliquis [Apixaban] Other: See Comments Nausea, decreased appetite and chills Protonix [Pantopraz* Other: See Comments Stomach pain Xarelto [Rivaroxaba* Other: See Comments lack of energy, very fatigued, diarrhea, nausea, lack of appetite. Indication for Warfarin: Anticoagulation Episode Summary Current INR goal: 2.0-3.0 Assessment: INR result of 2.1 is therapeutic Plan: Current Warfarin Dosing As of 04/10/2025 Full warfarin instructions: 7.5 mg every Tue, Sat; 5 mg all other days Called and spoke to patient/caregiver Advised patient to continue current weekly dose as noted above Next lab INR check scheduled on 04/24/25 Patient verbalizes understanding of the plan. Patient advised to call the PAC with any medication changes, bleeding/bruising concerns, recent changes in vitamin k consumption, if any procedures are coming up, if they have been ill or in the hospital, and if they have missed any doses of warfarin. Sharmila Weiss RPh Clinical Pharmacist, Pharmacy Anticoagulation Clinic Pharmacy Anticoagulation Clinic Pager: [phone]. * Telephone Encounter - Clarita Neely LPN - 04/10/2025 9:17 AM EDT Last INR: PT INR 2.1 04/10/2025 Current dose of coumadin is: 7.5 mg Tues, Sat and 5 mg all other days. Last date of dose change: 04/03/25. Previous INR (date and result): 5.1 on 04/03/25 Additional Clinical Information or narrative: no documented in this encounterLouis [facility]06-[facility]-20[facility] Telephone encounter Note * Telephone Encounter - Clarita Neely LPN - 04/10/2025 9:17 AM EDT Last INR: PT INR 2.1 04/10/2025 Current dose of coumadin is: 7.5 mg Tues, Sat and 5 mg all other days. Last date of dose change: 04/03/25. Previous INR (date and result): 5.1 on 04/03/25 Additional Clinical Information or narrative: no [facility]05-[facility] Telephone encounter Note* Telephone Encounter - Naye Jackson RN - 04/03/2025 4:54 PM EDT Pt called and is notified of providers message and instructions. Pt voices understanding. Naye Jackson RN [facility]05-29-2025 Miscellaneous Notes* Telephone Encounter - Naye Jackson RN - 04/03/2025 4:54 PM EDT Pt called and is notified of providers message and instructions. Pt voices understanding. Naye Jackson RN * Telephone Encounter - Rangel Bonilla MD - 04/03/2025 4:21 PM EDT Advise her that this would be a very good topic to discuss with her audit specialist, Dr. Brown on Monday. * Telephone Encounter - Naye Jackson RN - 04/03/2025 4:16 PM EDT Pt called and is notified of providers results and instructions. Pt voices understanding. She wanted to know if there was something that the provider would suggest that doesn't have the pseudoephedrine in it for allergies. Please call and advise. Naye Jackson RN * Telephone Encounter - Rangel Bonilla MD - 04/03/2025 3:34 PM EDT Let patient know that the generic form of Emmy D (which is what she is taking) does not show anyinteraction with coumadin. That being said she should not be taking anything with a decongestant (like pseudoephedrine) because with her giovani blood pressure it can raise her BP and increase the riskof a stroke. The biggest thing that affects INR is Vit K containing foods. I she is consistent with it then not an issue but if eats things that she typically doesn't or stops eating some that she typically did eat her INR will be affected and we adjust the coumadin around it. She should know that the cortisone can affect her INR. Show after she gets it she should have her INR checked in 48-72 hrs to see if her coumadin need adjusted. Unfortunately there is no other options outside of coumadin since she could not tolerate the xarelto or eliquis. If she chooses to stop the coumadin on her own she needs to understand there is a riskof her developing a clot and she could from this. * Telephone Encounter - Naye Jackson RN - 04/03/2025 12:50 PM EDT Pt called in and reports it's Equate Allergy Release D24. I asked her for the ingredients in it andshe reports it has Pseudoephedrine HCL Er 240 mg and Fexofenadine HCL 180 mg. She states she took one Monday and Monday and didn't take one today because she knew it would affect her INR. She is wanting to know if she can take one today. She states she sees Dr Brown on Monday at 8 am and she is going to see if there is anything he would recommend that would work better for her. I told her to call in and let Dr Bonilla know if he has her change her allergy medication, as Dr Bonilla will be working on Monday. I told her I didn't know if Dr Brown would know how they affect the INR. Pleasecall Pt and let her know if she can take medication. Naye Jackson, ALONDRA * Telephone Encounter - Rangel Bonilla MD - 04/03/2025 11:46 AM EDT I would need to know the exact name of the OTC 24 hr allergy med she takes. * Telephone Encounter - Clarita Neely LPN - 04/03/2025 11:17 AM EDT Spoke with pt and advised her of pcp's message and instructions. Pt verbalizes understanding. Pt denies any bleeding. Advises that she had dentist appointment this week and there was no bleeding withher cleaning. Pt is upset that reading is high. She advises that she has been having sinus issues(pressure aroundeyes, sneezing runny nose) and has taken otc allergy relief D-24 which she advises really helps her. Took one on Mon and Mon. She is questioning if this could be the reason it's high. Did review pcp message regarding this and the loading dose. She is wanting to know if ok to take more of this medication. Is upset about the coumadin and feels this is effecting her life. She wants to be able to take a medication when she needs it. She has an upcoming cortisone injection for her shoulder in April and is concerned about this effecting her results. Advises that she really needs to have this shot. Has upcoming allergy appointment on Sat with Dr Brown to discuss allergy testing. Afraid this might also effect testing. Pt questions if she should just not take her coumadin on the day she takes the otc medication or on the day of injection. Please advise if pt can take more of the otc allergy medication. Pt wanting to hear back today. Clarita Neely LPN * Telephone Encounter - Rangel Bonilla MD - 04/03/2025 10:00 AM EDT Let patient know Her INR was 5.1 today. Make sure no signs of bleeding (mouth, urine rectum ect). If so need to know and quantify. If not tell her to hold her coumadin Shabbir and tomorrow and then go back to her normal dosing of 1.5 tabs Tues, Sat and 1 tab all other days. Needs repeat INR in a week. Most likely the loading dose I gave her for the first three days over shot her. documented in this encounter[facility] Telephone encounter Note * Telephone Encounter - Rangel Bonilla MD - 04/03/2025 4:21 PM EDT Advise her that this would be a very good topic to discuss with her audit specialist, Dr. Brown on Monday. [facility]05-29-[facility] Telephone encounter Note* Telephone Encounter - Naye Jackson RN - 04/03/2025 4:16 PM EDT Pt called and is notified of providers results and instructions. Pt voices understanding. She wanted to know if there was something that the provider would suggest that doesn't have the pseudoephedrine in it for allergies. Please call and advise. Naye Jackson RN [facility]05-29-2025 Telephone encounter Note* Telephone Encounter - Rangel Bonilla MD - 04/03/2025 3:34 PM EDT Let patient know that the generic form of Emmy D (which is what she is taking) does not show anyinteraction with coumadin. That being said she should not be taking anything with a decongestant (like pseudoephedrine) because with her giovani blood pressure it can raise her BP and increase the riskof a stroke. The biggest thing that affects INR is Vit K containing foods. I she is consistent with it then not an issue but if eats things that she typically doesn't or stops eating some that she typically did eat her INR will be affected and we adjust the coumadin around it. She should know that the cortisone can affect her INR. Show after she gets it she should have her INR checked in 48-72 hrs to see if her coumadin need adjusted. Unfortunately there is no other options outside of coumadin since she could not tolerate the xarelto or eliquis. If she chooses to stop the coumadin on her own she needs to understand there is a riskof her developing a clot and she could from this. [facility]05-[facility] Telephone encounter Note* Telephone Encounter - Naye Jackson, RN - 04/03/2025 12:50 PM EDT Pt called in and reports it's Equate Allergy Release D24. I asked her for the ingredients in it andshe reports it has Pseudoephedrine HCL Er 240 mg and Fexofenadine HCL 180 mg. She states she took one Monday and Monday and didn't take one today because she knew it would affect her INR. She is wanting to know if she can take one today. She states she sees Dr Brown on Monday at 8 am and she is going to see if there is anything he would recommend that would work better for her. I told her to call in and let Dr Bonilla know if he has her change her allergy medication, as Dr Bonilla will be working on Monday. I told her I didn't know if Dr Brown would know how they affect the INR. Pleasecall Pt and let her know if she can take medication. Naye Jackson, RN [facility]05-29-[facility] Telephone encounter Note* Telephone Encounter - Rangel Bonilla MD - 04/03/2025 11:46 AM EDT I would need to know the exact name of the OTC 24 hr allergy med she takes. [facility] Telephone encounter Note* Telephone Encounter - Clarita Neely LPN - 04/03/2025 11:17 AM EDT Spoke with pt and advised her of pcp's message and instructions. Pt verbalizes understanding. Pt denies any bleeding. Advises that she had dentist appointment this week and there was no bleeding withher cleaning. Pt is upset that reading is high. She advises that she has been having sinus issues(pressure aroundeyes, sneezing runny nose) and has taken otc allergy relief D-24 which she advises really helps her. Took one on Mon and Mon. She is questioning if this could be the reason it's high. Did review pcp message regarding this and the loading dose. She is wanting to know if ok to take more of this medication. Is upset about the coumadin and feels this is effecting her life. She wants to be able to take a medication when she needs it. She has an upcoming cortisone injection for her shoulder in April and is concerned about this effecting her results. Advises that she really needs to have this shot. Has upcoming allergy appointment on Sat with Dr Brown to discuss allergy testing. Afraid this might also effect testing. Pt questions if she should just not take her coumadin on the day she takes the otc medication or on the day of injection. Please advise if pt can take more of the otc allergy medication. Pt wanting to hear back today. Clarita Neely LPN T [facility]05-29-[facility] Telephone encounter Note* Telephone Encounter - Rangel Bonilla MD - 04/03/2025 10:00 AM EDT Let patient know Her INR was 5.1 today. Make sure no signs of bleeding (mouth, urine rectum ect). If so need to know and quantify. If not tell her to hold her coumadin Shabbir and tomorrow and then go back to her normal dosing of 1.5 tabs Tues, Sat and 1 tab all other days. Needs repeat INR in a week. Most likely the loading dose I gave her for the first three days over shot her. [facility]05-19-2025 Telephone encounter Note* Telephone Encounter - Clarita Neely LPN - 03/24/2025 11:21 AM EDT Patient notified of results and provider's instructions. Patient verbalizes understanding. Clarita Neely LPN [facility]05-19-2025 Miscellaneous Notes* Telephone Encounter - Clarita Neely LPN - 03/24/2025 11:21 AM EDT Patient notified of results and provider's instructions. Patient verbalizes understanding. Clarita Neely LPN * Telephone Encounter - Rayna Martinez PA-C - 03/24/2025 10:46 AM EDT Continue current dosing and await for further instruction from the home coumadin management team. * Telephone Encounter - Clarita Neely LPN - 03/24/2025 9:21 AM EDT Last INR: PT INR 2.4 03/24/2025 Current dose of coumadin is: 1.5 tabs for three days and then go to taking 1.5 tabs on , mon and 1 tab all other days. . Last date of dose change: 03/19/25. Previous INR (date and result): 02/14/25 1.0 Additional Clinical Information or narrative: yes: see TE from 03/17/25. Pt was restarted on coumadin and pcp is going to manage until pt can get set up with home monitor. Clarita Neely LPN documented in this encounterLouis [facility]05-19-2025 Telephone encounter Note * Telephone Encounter - Rayna Martinez PA-C - 03/24/2025 10:46 AM EDT Continue current dosing and await for further instruction from the home coumadin management team. [facility] Work Phone: 1(867) 316-347805-19-2025 Telephone encounter Note* Telephone Encounter - Clarita Neely LPN - 03/24/2025 9:21 AM EDT Last INR: PT INR 2.4 03/24/2025 Current dose of coumadin is: 1.5 tabs for three days and then go to taking 1.5 tabs on , mon and 1 tab all other days. . Last date of dose change: 03/19/25. Previous INR (date and result): 02/14/25 1.0 Additional Clinical Information or narrative: yes: see TE from 03/17/25. Pt was restarted on coumadin and pcp is going to manage until pt can get set up with home monitor. Clarita Neely LPN [facility]05-16-2025 Telephone encounter Note* Telephone Encounter - Dana Mckeon RPh - 03/21/2025 4:58 PM EDT I have reviewed the below recommendations and agree with plan. Dana Mckeon PharmD [facility]05-16-2025 Miscellaneous Notes* Telephone Encounter - Dana Mckeon RPh - 03/21/2025 4:58 PM EDT I have reviewed the below recommendations and agree with plan. Dana Mckeon PharmD * Telephone Encounter - Lucinda Sierra RN - 03/21/2025 4:[address] Bonilla, Thank you for referring Gregg Ferris to the Anticoagulation Clinic for follow up. A pharmacist will see your patient for fingerstick INR testing and counseling. Please note: if at any time your patient does not agree to follow our recommendations for follow up care for managing their INR via POCT, home INR meter, or lab, they may be discharged back to your service for follow up. By this referral, we will be following your patient under the consult agreement policy between the Department of Pharmacy and member of the [facility]. Under this policy, you agree to maintain a clinical relationship with the patient as defined by Medicare as seeing the patient at least once a year in the outpatient setting. Our pharmacists will monitor your patient's anticoagulation therapy, adjust doses, order labs and prescriptions for warfarin/enoxaparin/Vitamin K asappropriate, and bill for our visits and lab tests listing you as the responsible referring physician. If for any reason you do not wish to continue working under this collaborative practice agreement or if the patient no longer continues in your care, please contact us to discontinue this service. Thank you for your referral, Anticoagulation Management Services * Telephone Encounter - Lucinda Sierra RN - 03/21/2025 4:27 PM EDT New Referral Contact: Pharmacist Anticoagulation Clinic The patient was called to discuss recent referral to the Anticoagulation Clinic. Mode of contact: cell phone Referral date: 03/20 Referring physician: Rangel Bonilla Indication: PE Goal INR: 2-3 The expected duration of therapy is Indefinite Preferred location for visits: [facility] Warfarin start date: 03/19/2025. Patient was on warfarin x 6 months then switched to Eliquis for a short time. Patient was then switched to Xarelto for approximately 2 weeks. Eliquis and Xarelto madethe patient ill. Patient then switched back to warfarin. Patient was previously instructed to take warfarin: 7.5mg TuesSat/5mg all other days. Patient advised to take warfarin x 3 days 03/19-03/21 then go back to 7.5mg TuesSat/5mg all other days Parenteral anticoagulant: No PT INR (no units) Date Value 02/14/2025 1.0 INR (no units) Date Value 02/14/2025 1.0 10/09/2024 1.2 09/30/2024 5.2 Hemoglobin (g/dL) Date Value 02/14/2025 13.8 01/28/2021 15.6 Hematocrit (%) Date Value 02/14/2025 43.4 01/28/2021 48.3 WBC (k/uL) Date Value 02/14/2025 6.28 01/28/2021 7.28 A/P: Spoke to patient. The patient: DOES agree to INR testing and consult agreement Patient scheduled for next INR Lab INR on this date: 03/24 [facility]: n/a Patient declines the warfarin education video. Mode of learning: was on warfarin in the past . Patient's son is a physician. Next Action for Anticoag Management: Lab 03/24. Per referral, PCP requesting home meter for the patient. Lucinda Sierra RN * Telephone Encounter - Issa ([employer])Naye - 03/21/2025 4:03 PM EDT PATIENT CALL Patient called call center regarding message. Patient can be reached at [phone] or [phone]. Naye Parsons ([employer]) * Telephone Encounter - Lucinda Sierra RN - 03/21/2025 10:25 AM EDT Images from the original note were not included. A call was placed to patient's home telephone number. A voicemail message was left with request forpatient to return call to Pharmacy Anticoagulation Clinic at [phone] Option #2 to discuss new referral to PAC. Per TE on 03/17/2025: Anita Salazar RPh Pac - Administration Assistant Staff20 hours ago (2:01 PM) MP Not sure if you put in request to us to do Home Meter Anita Salazar RPh routed conversation to Pac - Administration Assistant Staff20 hours ago (2:01 PM) Rangel Bonilla MD Plantner, Megan R, [facility]; Perla Laws, ALONDRA; Pac - Administration Assistant Staff21 hours ago(12:52 PM) She can either do [facility] till able to transfer to home monitoring or go through the lab and I can monitor till the transfer. Estephania Sierra RN Pharmacy, Anticoagulation Clinic documented in this encounterLouis [facility]05-16-2025 Telephone encounter Note * Telephone Encounter - Lucinda Sierra RN - 03/21/2025 4:[address] Bonilla, Thank you for referring Gregg Ferris to the Anticoagulation Clinic for follow up. A pharmacist will see your patient for fingerstick INR testing and counseling. Please note: if at any time your patient does not agree to follow our recommendations for follow up care for managing their INR via POCT, home INR meter, or lab, they may be discharged back to your service for follow up. By this referral, we will be following your patient under the consult agreement policy between the Department of Pharmacy and member of the [facility]. Under this policy, you agree to maintain a clinical relationship with the patient as defined by Medicare as seeing the patient at least once a year in the outpatient setting. Our pharmacists will monitor your patient's anticoagulation therapy, adjust doses, order labs and prescriptions for warfarin/enoxaparin/Vitamin K asappropriate, and bill for our visits and lab tests listing you as the responsible referring physician. If for any reason you do not wish to continue working under this collaborative practice agreement or if the patient no longer continues in your care, please contact us to discontinue this service. Thank you for your referral, Anticoagulation Management Services [facility]05-16-2025 Telephone encounter Note* Telephone Encounter - Lucinda Sierra RN - 03/21/2025 4:27 PM EDT New Referral Contact: Pharmacist Anticoagulation Clinic The patient was called to discuss recent referral to the Anticoagulation Clinic. Mode of contact: cell phone Referral date: 03/20 Referring physician: Rangel Bonilla Indication: PE Goal INR: 2-3 The expected duration of therapy is Indefinite [facility] War[facility]in start date: 03/19/2025. Patient was on warfarin x 6 months then switched to Eliquis for a short time. Patient was then switched to Xarelto for approximately 2 weeks. Eliquis and Xarelto madethe patient ill. Patient then switched back to warfarin. Patient was previously instructed to take warfarin: 7.5mg TuesSat/5mg all other days. Patient advised to take warfarin x 3 days 03/19-03/21 then go back to 7.5mg TuesSat/5mg all other days Parenteral anticoagulant: No PT INR (no units) Date Value 02/14/2025 1.0 INR (no units) Date Value 02/14/2025 1.0 10/09/2024 1.2 09/30/2024 5.2 Hemoglobin (g/dL) Date Value 02/14/2025 13.8 01/28/2021 15.6 Hematocrit (%) Date Value 02/14/2025 43.4 01/28/2021 48.3 WBC (k/uL) Date Value 02/14/2025 6.28 01/28/2021 7.28 A/P: Spoke to patient. The patient: DOES agree to INR testing and consult agreement Patient scheduled for next INR Lab INR on this date: 03/24 Patient scheduled for POCT/New Ed at [facility] on this date: n/a Patient declines the warfarin education video. Mode of learning: was on warfarin in the past . Patient's son is a physician. Next Action for Anticoag Management: Lab 03/24. Per referral, PCP requesting home meter for the patient. Lucinda Sierra RN [facility]05-16-20[facility] Telephone encounter Note* Telephone Encounter - Issa ([employer])Naye - 03/21/2025 4:03 PM EDT PATIENT CALL Patient called call center regarding message. Patient can be reached at [phone] or [phone]. Naye Parsons ([employer]) [facility]05-16-2025 Telephone encounter Note* Telephone Encounter - Lucinda Sierra RN - 03/21/2025 10:25 AM EDT Images from the original note were not included. A call was placed to patient's home telephone number. A voicemail message was left with request forpatient to return call to Pharmacy Anticoagulation Clinic at [phone] Option #2 to discuss new referral to PAC. Per TE on 03/17/2025: Anita Salazar RPh Pac - Administration Assistant Staff20 hours ago (2:01 PM) MP Not sure if you put in request to us to do Home Meter Anita Salazar RPh routed conversation to Pac - Administration Assistant Staff20 hours ago (2:01 PM) Rangel Bonilla MD Plantner, Megan R [facility]; Perla Laws RN; Pac - Administration Assistant Staff21 hours ago(12:52 PM) She can either do [facility] till able to transfer to home monitoring or go through the lab and I can monitor till the transfer. Estephania Sierra RN Pharmacy, Anticoagulation Clinic [facility]05-15-2025 Telephone encounter Note* Telephone Encounter - Anita Salazar RPh - 03/20/2025 8:27 AM EDT Hello - Reading through the notes below. Is patient going to establish with [facility] first and then transfer to Home meter once PAF/approval/meter process complete? Hoping this will be approved since patient was on warfarin about 3 months in 2023 but this process does take about 6 weeks. Thank you - Anita Salazar, PharmD., CACP T [facility]05-15-2025 Miscellaneous Notes* Telephone Encounter - Anita Salazar [facility] - 03/20/2025 8:27 AM EDT Hello - Reading through the notes below. Is patient going to establish with [facility] first and then transfer to Home meter once PAF/approval/meter process complete? Hoping this will be approved since patient was on warfarin about 3 months in 2023 but this process does take about 6 weeks. Thank you - Anita Salazar, PharmD., CACP * Telephone Encounter - Fariha Hubbard RN - 03/20/2025 8:10 AM EDT Pt agreeable to machine at home. Will plan on getting INR on Monday at the lab until she gets her machine. * Telephone Encounter - Rangel Bonilla MD - 03/20/2025 8:02 AM EDT Let patient know that since I can't convince her to go to [place] lab so I can manage her coumadinappropriately I have placed a consult to Pharmacy for the management of her coumadin. They will gether set up with a machine she will do at home. * Telephone Encounter - Fariha Hubbard RN - 03/19/2025 6:53 PM EDT Pt returned the call and notified of all directions below again. Pt not really wanting to go to [place] to get INR drawn as [facility] is closer to her house. Explained reasoning behind it. Spoke to pt again about Coumadin Clinic and this time she is agreeable to do that. She is going to get Monday the th INR drawn at [facility] and after that will come to the Coumadin Clinic. * Telephone Encounter - Madison Vazquez MA - 03/19/2025 5:02 PM EDT Left message for patient to contact office. Madison Vazquez MA * Telephone Encounter - Rangel Bonilla MD - 03/19/2025 4:58 PM EDT Let patient know script sent. I also placed a stranding order for INR's. If she does them up at [facility] lab in the AM we will have results back quickly to be able to make adjustments if needed. So best to take the coumadin in the evening. I would get a INR on Next Monday. * Telephone Encounter - Whit Pal RN - 03/19/2025 3:59 PM EDT Patient returns call and provider message reviewed with verbalized understanding. [facility] Also, asking when she should have INR checked. Please review and advise, Whit Pal RN * Telephone Encounter - Madison Vazquez MA - 03/19/2025 8:37 AM EDT Left message for patient to contact office. Dr. Bonilla how soon would she need to have her INR checked. Madison Vazquez MA * Telephone Encounter - Rangel Bonilla MD - 03/18/2025 5:14 PM EDT Let patient know is I can put her back on coumadin 5 mg tabs and take 1.5 tabs for three days and then go to taking 1.5 tabs on Tues, sat and 1 tab all other days. The day that she would start the coumadin she would not take any xaralto * Telephone Encounter - Sharona Farley LPN - 03/18/2025 4:03 PM EDT Patient calling she does not want to take the Xarelto because of the way it makes her feel, but does not want to just stop taking it. * Telephone Encounter - Sharona Farley LPN - 03/17/2025 4:49 PM EDT Patient calling said she has been taking Xarelto 10 mg once daily for past week. She is having lotsof side effects she does not like, lack of energy, very fatigued, diarrhea, nausea, lack of appetite. [facility]. Patient said she did not have these effects when she was taking warfarin. Please advise documented in this encounterLouis [facility]05-[facility]-2025 Telephone encounter Note * Telephone Encounter - Fariha Hubbard RN - 03/20/2025 8:10 AM EDT Pt agreeable to machine at home. Will plan on getting INR on Monday at the lab until she gets her machine. [facility]05-[facility] Telephone encounter Note* Telephone Encounter - Rangel Bonilla MD - 03/20/2025 8:02 AM EDT Let patient know that since I can't convince her to go to [place] lab so I can manage her coumadinappropriately I have placed a consult to Pharmacy for the management of her coumadin. They will gether set up with a machine she will do at home. [facility]05-14-2025 Telephone encounter Note* Telephone Encounter - Fariha Hubbard RN - 03/19/2025 6:53 PM EDT Pt returned the call and notified of all directions below again. Pt not really wanting to go to [place] to get INR drawn as [facility] is closer to her house. Explained reasoning behind it. Spoke to pt again about Coumadin Clinic and this time she is agreeable to do that. She is going to get Monday the th INR drawn at [facility] and after that will come to [facility]. [facility]05-14-2025 Telephone encounter Note* Telephone Encounter - Madison Vazquez MA - 03/19/2025 5:02 PM EDT Left message for patient to contact office. Madison Vazquez MA [facility]05-14-2025 Telephone encounter Note* Telephone Encounter - Rangel Bonilla MD - 03/19/2025 4:58 PM EDT Let patient know script sent. I also placed a stranding order for INR's. If she does them up at [facility] lab in the AM we will have results back quickly to be able to make adjustments if needed. So best to take the coumadin in the evening. I would get a INR on Next Monday. [facility]05-14-2025 Telephone encounter Note* Telephone Encounter - Whit Pal RN - 03/19/2025 3:59 PM EDT Patient returns call and provider message reviewed with verbalized understanding. Patient requesting prescription for Coumadin to be sent to [facility]. Also, asking when she should have INR checked. Please review and advise, Whit Pal RN [facility]05-14-2025 Telephone encounter Note* Telephone Encounter - Madison Vazquez MA - 03/19/2025 8:37 AM EDT Left message for patient to contact office. Dr. Bonilla how soon would she need to have her INR checked. Madison Vazquez MA [facility]05-13-2025 Telephone encounter Note* Telephone Encounter - Rangel Bonilla MD - 03/18/2025 5:14 PM EDT Let patient know is I can put her back on coumadin 5 mg tabs and take 1.5 tabs for three days and then go to taking 1.5 tabs on , sat and 1 tab all other days. The day that she would start the coumadin she would not take any xaralto [facility]05-13-2025 Telephone encounter Note* Telephone Encounter - Sharona Farley LPN - 03/18/2025 4:03 PM EDT Patient calling she does not want to take the Xarelto because of the way it makes her feel, but does not want to just stop taking it. [facility]05-12-2025 Telephone encounter Note* Telephone Encounter - Simin So MA - 03/17/2025 5:39 PM EDT Left detailed message on a secured voicemail. Simin So MA [facility]05-12-2025 Miscellaneous Notes* Telephone Encounter - Simin So MA - 03/17/2025 5:39 PM EDT Left detailed message on a secured voicemail. Simin So MA * Telephone Encounter - Helena Vazquez APRN.CNP - 03/17/2025 5:03 PM EDT Please call and let patient know I called her in the medication. GFR is 79 so patient is able to take this medication. * Telephone Encounter - Whit Pal RN - 03/17/2025 5:00 PM EDT Patient calls back to let provider know that after speaking with son she would like to have the anti-viral medication for shingles sent to [facility] in [place]. Whit Pal RN documented in this encounterLouis [facility]05[facility] Telephone encounter Note * Telephone Encounter - Helena Vazquez APRN.CNP - 03/17/2025 5:03 PM EDT Please call and let patient know I called her in the medication. GFR is 79 so patient is able to take this medication. [facility]05-12-2025 Telephone encounter Note* Telephone Encounter - Whit Pal RN - 03/17/2025 5:00 PM EDT Patient calls back to let provider know that after speaking with son she would like to have the anti-viral medication for shingles sent to [facility] in [place]. Whit Pal RN [facility]05-12-2025 Telephone encounter Note* Telephone Encounter - Sharona Farley LPN - 03/17/2025 4:49 PM EDT Patient calling said she has been taking Xarelto 10 mg once daily for past week. She is having lotsof side effects she does not like, lack of energy, very fatigued, diarrhea, nausea, lack of appetite. [facility]. Patient said she did not have these effects when she was taking warfarin. Please advise [facility]05-12-20[facility] History of Present illness Narrative* Helena Vazquez APRN.KATIE - 03/17/2025 4:31 PM EDT Images from the original note were not included. [facility] Subjective Gregg Ferris is a 79 year old female. Patient presents with: Rash: Rash on left side of tailbone x 2 days Patient came in with complaints of rash on the left side of her buttock. Patient says it just itches. Denies any pain with it. Says it has been about 2 days. Denies any other symptoms. Patient did have chickenpox as a kid. The history is provided by the patient. No station mechanic helper was used. Rash Review of Systems Constitutional: Negative. HENT: Negative. Skin: Positive for rash. Objective BP 152/84 Pulse 79 Temp 36.8 C (98.3 F) (Tympanic) Resp 18 Wt 62.3 kg (137 lb 5.6 oz) SpO2 96% BMI 24.33 kg/m Physical Exam Constitutional: Appearance: Normal appearance. Pulmonary: Effort: Pulmonary effort is normal. Skin: Comments: Patient has vesicular erythematous lumps in the area marked above. Consistent with shingles. No drainage noted. Neurological: Mental Status: She is alert. 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 Duarte at [facility]. 08/18/[address] Fischer at [place] Chronic throat clearing 02/01/2018 Ectopic gastric mucosa of multiple sites 05/06/[address] Granado 04/2022 Elevated fasting blood sugar 08/14/2018 Encounter for gynecological examination without abnormal finding 07/20/2016 Sees [facility]. Essential hypertension 07/20/2016 GERD without esophagitis 01/14/2008 Hemorrhoids 03/03/2017 Hiatal hernia History of pulmonary embolus (PE) 04/08/202404/2024: 4 of them History of pulmonary embolus (PE) 04/08/202404/2024: 4 of them, to be on anticoagulation for 6 months. History of pulmonary embolus (PE) 04/08/202404/2024: 4 of them, per pulm needs chronic anticoagulation. History of recurrent UTIs 07/19/2018 History of subdural hematoma 03/03/2017 After a fall Hypoxia 04/15/2024 After PE's 04/2024 Lichen sclerosus et atrophicus 03/03/2017 Living will on file at physician's office 01/16/2023 DPA: Nate (Son) Lumbago 03/21/[address] Duarte at [facility]. Medicare annual wellness visit, subsequent 08/14/2018 Medicare Part B: 06/06/2008 last done: 08/23/2019 Migraine without aura and without status migrainosus, not intractable 07/20/2016 Mixed hyperlipidemia 01/14/2008 Postmenopausal atrophic vaginitis 06/06/2012 Pulmonary nodules 10/03/201609/2016, follow uo CT in a year, 08/[address] Zheng Right thyroid nodule 10/03/2016 Had benign biopsy 09/2016 at [facility] Seasonal allergies 07/20/2016 Sinus arrhythmia Spinal stenosis, lumbar region, without neurogenic claudication 03/21/2012 PAST SURGICAL HISTORY Procedure Laterality Date 2D ECHO (EXEP) 09/2016 EF=65%, mild 1+ MR, TR APPENDECTOMY BACK SURGERY HX BRAIN SURGERY HX 2000 Brain bleed COLONOSCOPY 04/29/2013 Dr. Lu, repeat 10 years ESOPHAGOGASTRODUODENOSCOPY TRANSORAL DIAGNOSTIC 06/22/2020 EGD HEMORRHOIDECTOMY XTRNL 2/> COLUMN/GROUP IMMUNOCHEMICAL FECAL OCCULT BLOOD TEST 10/27/2021 negative LAPAROSCOPY SURG CHOLECYSTECTOMY 2002 Cholecystectomy, lap PAST [...] [Sucralfate], Eliquis [Apixaban], and Protonix [Pantoprazole] MEDICATIONS rivaroxaban (XARELTO) 10 mg tablet Take 1 tablet by mouth once daily. simvastatin (ZOCOR) 10 mg tablet Take 1 tablet by mouth daily at bedtime. famotidine (PEPCID) 20 mg tablet Take 20 mg by mouth daily at bedtime. Per Friend Cholecalciferol, Vitamin D3, (VITAMIN D-3) 50 mcg (2,000 unit) cap Take 1 capsule by mouth once daily. ondansetron orally disintegrating (ZOFRAN ODT) 4 mg disintegrating tablet Take 1 tablet by mouth every 8 hours as needed for nausea/vomiting. estradiol (ESTRACE) 0.01 % (0.1 mg/gram) vaginal cream Use 1 g vaginally every other day. At bedtime SUMAtriptan (IMITREX) 100 mg tablet Take one tab by month with onset of headache. Can repeat in 2 hrs. Max of 2 tabs in 24 hrs FAMILY HISTORY Problem Relation Age of Onset Coronary Artery Disease Mother Fatal [place] in her 80s Diabetes Father ADULT ONSET [...] per week Comment: socially Drug use: No {ASSESSMENT/PLAN: 1. Herpes zoster without complication - ICD9: 053.9, ICD10: B02.9 At this time I discussed with in depth the patient and antiviral therapy. Patient does not want it at this time due to no pain. Patient GFR is 79 if she changes her mind I said she could call in thisevening. Patient agreeable to care plan Helena Vazquez APRN.[employer] MDM Procedures documented in this encounterLouis [facility]05-[facility] Telephone encounter Note * Telephone Encounter - Madison Vazquez MA - 03/11/2025 8:48 AM EDT Left detailed message for patient. Madison Vazquez MA [facility]05-06-2025 Miscellaneous Notes* Telephone Encounter - Madison Vazquez MA - 03/11/2025 8:48 AM EDT Left detailed message for patient. Madison Vazquez MA * Telephone Encounter - Rangel Bonilla MD - 03/11/2025 7:57 AM EDT Let patient know script sent in. The following approved medication requests have been transmitted electronically. Requested Prescriptions Signed Prescriptions Disp Refills rivaroxaban (XARELTO) 10 mg tablet 30 tablet 5 Sig: Take 1 tablet by mouth once daily. Rangel Bonilla MD * Telephone Encounter - Whit Pal RN - 03/10/2025 4:19 PM EDT Patient returns call and provider message reviewed. Patient would like to start the xarelto. Asks that we let her know once medication is sent to pharmacy. Call back number is [phone]. Whit Pal RN * Telephone Encounter - Madison Vazquez MA - 03/10/2025 2:12 PM EDT Left message with to have patient contact office. Madison Vazquez MA * Telephone Encounter - Rangel Bonilla MD - 03/10/2025 9:42 AM EDT Lt patient know I received f/u from Dr. Clark. His recommendation is to place you on low dose Xarelto. Works like the Eliquis so you do not need routine labs and since a different drug hopefully no nausea, loss of appetite or chills like it. * Telephone Encounter - Naye Jackson RN - 02/20/2025 3:01 PM EDT Pt called in asking about if PCP was going to restart her Coumadin. I let her know Dr Bonilla sent,I see the D-dimer from 02/14/2025 was ok. Would the plan be to restart coumadin or stay off it for now? Message to Dr Clark. Provider office will get back to Pt once he hears from others providers office. * Telephone Encounter - Sharona Farley LPN - 02/19/2025 3:05 PM EDT Patient calling back not sure what should she do? PCP has not answered the note. She does not have any coumadin at home. She has not restarted the coumadin. [facility]. Please advise * Telephone Encounter - Madison Vazquez MA - 02/14/2025 4:42 PM EDT Patient has not restarted; she not been [...] that patient's are usually only on it for6 months. She is confused about it all and hoping for some answers. Madison Vazquez MA * Telephone Encounter - Rangel Bonilal MD - 02/14/2025 4:24 PM EDT Find out if patient is taking the coumadin at the dosing below and if so when did she restart it? * Telephone Encounter - Viji Horvath LPN - 02/14/2025 11:21 AM EDT Last INR: INR 1.0 02/14/2025 Current dose of coumadin is: Last INR patient was to stop coumadin 10/17/2024 Last date of dose change: 10/09/2024. (Dose was 7.5 mg Sat and Tues, and 5 mg all other days) Previous INR (date and result): 1.2 Additional Clinical Information or narrative: no documented in this encounterLouis [facility]05-[facility]-2025 Telephone encounter Note * Telephone Encounter - Rangel Bonilla MD - 03/11/2025 7:57 AM EDT Let patient know script sent in. The following approved medication requests have been transmitted electronically. Requested Prescriptions Signed Prescriptions Disp Refills rivaroxaban (XARELTO) 10 mg tablet 30 tablet 5 Sig: Take 1 tablet by mouth once daily. Rangel Bonilla MD [facility]05-05-2025 Telephone encounter Note* Telephone Encounter - Whit Pal RN - 03/10/2025 4:19 PM EDT Patient returns call and provider message reviewed. Patient would like to start the xarelto. Asks that we let her know once medication is sent to pharmacy. Call back number is [phone]. Whit Pal RN [facility]05-05-2025 Telephone encounter Note* Telephone Encounter - Madison Vazquez MA - 03/10/2025 2:12 PM EDT Left message with to have patient contact office. Madison Vazquez MA [facility]05-05-2025 Telephone encounter Note* Telephone Encounter - Rangel Bonilla MD - 03/10/2025 9:42 AM EDT Lt patient know I received f/u from Dr. Clark. His recommendation is to place you on low dose Xarelto. Works like the Eliquis so you do not need routine labs and since a different drug hopefully no nausea, loss of appetite or chills like it. [facility]04-23-2025 [facility]04-17-2025 Telephone encounter Note* Telephone Encounter - Naye Jackson RN - 02/20/2025 3:01 PM EDT Pt called in asking about if PCP was going to restart her Coumadin. I let her know Dr Bonilla sent,I see the D-dimer from 02/14/2025 was ok. Would the plan be to restart coumadin or stay off it for now? Message to Dr Clark. Provider office will get back to Pt once he hears from others providers office. [facility]04-16-2025 Telephone encounter Note* Telephone Encounter - Sharona Farley LPN - 02/19/2025 3:05 PM EDT Patient calling back not sure what should she do? PCP has not answered the note. She does not have any coumadin at home. She has not restarted the coumadin. [facility]. Please advise [facility]04-11-2025 Telephone encounter Note* Telephone Encounter - Madison Vazquez MA - 02/14/2025 4:42 PM EDT Patient has not restarted; she not been [...] that patient's are usually only on it for6 months. She is confused about it all and hoping for some answers. Madison Vazquez MA [facility]04-11-2025 Telephone encounter Note* Telephone Encounter - Rangel Bonilla MD - 02/14/2025 4:24 PM EDT Find out if patient is taking the coumadin at the dosing below and if so when did she restart it? [facility]04-11-2025 Telephone encounter Note* Telephone Encounter - Viji Horvath LPN - 02/14/2025 11:21 AM EDT Last INR: INR 1.0 02/14/2025 Current dose of coumadin is: Last INR patient was to stop coumadin 10/17/2024 Last date of dose change: 10/09/2024. (Dose was 7.5 mg Sat and Tues, and 5 mg all other days) Previous INR (date and result): 1.2 Additional Clinical Information or narrative: no [facility]03-28-2025 History of Present illness Narrative* Cabrera Landeros MD - 01/31/2025 11:45 AM EDT Images from the original note were not included. . 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 Seen by hematology, transitioned to Coumadin from Eliquis. 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 Apparently she stopped her anticoagulation in October, Dr. Bonilla told her to stop after [...] back pain 07/20/[address] Duarte at [facility]. 08/18/[address] Fischer at [place] Chronic throat clearing 02/01/2018 Ectopic gastric mucosa of multiple sites 05/06/[address] Granado 04/2022 Elevated fasting blood sugar 08/14/2018 Encounter for gynecological examination without abnormal finding 07/20/[address] [facility]. Essential hypertension 07/20/2016 GERD without [...] (Son) Lumbago 03/21/[address] Duarte at [facility]. Medicare annual wellness visit, subsequent 08/14/2018 Medicare Part B: 06/06/2008 last done: 08/23/2019 Migraine without aura and without status migrainosus, not intractable 07/20/2016 Mixed hyperlipidemia 01/14/2008 Postmenopausal atrophic vaginitis 06/06/2012 Pulmonary nodules 10/03/201609/2016, follow uo CT in a year, 08/[address] Zheng Right thyroid nodule 10/03/2016 Had benign biopsy 09/2016 at [facility] Seasonal allergies 07/20/2016 Sinus arrhythmia Spinal stenosis, lumbar region, without neurogenic claudication 03/21/2012 ALLERGIES Allergen Reactions Willis Inhibitors Cough Carafate [Sucralfat* Diarrhea Eliquis [Apixaban] Other: See Comments Nausea, decreased appetite and chills Protonix [Pantopraz* Other: See Comments Stomach pain benzonatate (TESSALON PERLE) 100 mg capsule Take 1 capsule by mouth three times a day as needed forcough. ipratropium bromide (ATROVENT) 42 mcg (0.06 %) nasal spray Use 2 Sprays in each nostril three timesa day for 17 days. ondansetron orally disintegrating [...] of Onset Coronary Artery Disease Mother Fatal [place] in her 80s Diabetes Father ADULT ONSET [...] of respiratory failure -Resolved -Follow-up as needed Cabrera Landeros MD [facility] [place] documented in this encounterLouis Stokes [facility] Center03-28-2025 [facility]03-14-2025 Telephone encounter Note* Telephone Encounter - Sharona Farley LPN - 01/17/2025 9:04 AM EDT Phoned patient aware rx sent to the pharmacy per PCP with understanding. [facility]03-14-2025 Miscellaneous Notes* Telephone Encounter - Sharona Farley LPN - 01/17/2025 9:04 AM EDT Phoned patient aware rx sent to the pharmacy per PCP with understanding. * Telephone Encounter - Rangel Bonilla MD - 01/17/2025 8:52 AM EDT Let patient know script sent in. The following approved medication requests have been transmitted electronically. Requested Prescriptions Signed Prescriptions Disp Refills codeine-guaiFENesin (ROBITUSSIN AC) 10-100 mg/5 mL syrup 120 mL 0 Sig: Take 5-10 mL by mouth four times a day as needed for cough for up to 5 days. May cause drowsiness. Authorizing Provider: RANGEL BONILLA MD * Telephone Encounter - Sharona Farley LPN - 01/17/2025 8:34 AM EDT Patient calling she is COVID positive and has dry irritating cough. The tessalon perles are not helping her. Patient is asking for stronger cough syrup rx to be sent to [facility] pharmacy. She said it was years ago PCP had given her rx she can not remember the name of it. Please advise documented in this encounterLouis Stokes [facility] Center03-14-2025 Telephone encounter Note * Telephone Encounter - Rangel Bonilla MD - 01/17/2025 8:52 AM EDT Let patient know script sent in. The following approved medication requests have been transmitted electronically. Requested Prescriptions Signed Prescriptions Disp Refills codeine-guaiFENesin (ROBITUSSIN AC) 10-100 mg/5 mL syrup 120 mL 0 Sig: Take 5-10 mL by mouth four times a day as needed for cough for up to 5 days. May cause drowsiness. Authorizing Provider: RANGEL BONILLA MD [facility]03-14-2025 Telephone encounter Note* Telephone Encounter - Sharona Farley LPN - 01/17/2025 8:34 AM EDT Patient calling she is COVID positive and has dry irritating cough. The tessalon perles are not helping her. Patient is asking for stronger cough syrup rx to be sent to [facility] pharmacy. She said it was years ago PCP had given her rx she can not remember the name of it. Please advise [facility]03-13-2025 Telephone encounter Note* Telephone Encounter - Katelin Jameson APRN.CNP - 01/16/2025 8:45 AM EDT Creatinine clearance 66 Reached out to patient, she will start the Paxlovid RX Tessalon Perles RX Atrovent spray [facility]03-13-2025 Miscellaneous Notes* Telephone Encounter - Katelin Jameson APRN.CNP - 01/16/2025 8:45 AM EDT Creatinine clearance 66 Reached out to patient, she will start the Paxlovid RX Tessalon Perles RX Atrovent spray documented in this encounterLouis Stokes [facility] Center03-12-2025 Telephone encounter Note * Telephone Encounter - Katelin Jameson APRN.CNP - 01/15/2025 6:44 PM EDT COVID POSITIVE Reached out to patient She has had Paxlovid in the past, Specifically one year ago She tolerated it well. She is requesting it again. Last kidney function is from January 2024 She is amicalbe to returning in the morning, will have stat bmp Paxlovid called in, but patient knows to hold off until confirmation of appropriate kidney function. [facility]03-12-2025 Miscellaneous Notes* Telephone Encounter - Katelin Jameson APRN.CNP - 01/15/2025 6:44 PM EDT COVID POSITIVE Reached out to patient She has had Paxlovid in the past, Specifically one year ago She tolerated it well. She is requesting it again. Last kidney function is from January 2024 She is amicalbe to returning in the morning, will have stat bmp Paxlovid called in, but patient knows to hold off until confirmation of appropriate kidney function. documented in this encounterLouis Stokes Cleveland [facility] Center03-12-2025 [id number] (AGENT OF COVID-19) RNA: Detected INFLUENZA A RNA: Not detected INFLUENZA B RNA: Not detected RESPIRATORY SYNCYTIAL VIRUS (RSV) RNA: Not detectedGlenbeigh HospitalComment on above:Performed By: #### [id number] ####[facility] LABCLIA [id number] [address]03-12-2025 Instructions* Patient Instructions* Katelin Jameson APRN.CNP - 01/15/2025 9:55 AM [...] antibiotics. They are spread by coughs, sneezes, anddirect contact, especially [id number]. A respiratory tract infection usually clears up [...] as water, fruit juice, tea, clear soups, andcarbonated beverages. CONTACT YOUR DOCTOR IF : 1. [...] 1. You cough up thick yellow, green, ross, or bloody sputum. 2. You have difficulty breathing, pain in your chest, or your skin or nails look ross or blue. 3. You have shaking chills or a temperature over 102 F (39 C). documented in this encounterLouis Stokes Cleveland [facility] Center03-12-2025 NoteG[facility]03-12-2025 History of Present illness Narrative* Katelin Jameson APRN.CNP - 01/15/2025 9:31 AM EDT This note was created using NoteWriter. Subjective Gregg Ferris is a 79 year old female. [...] history is provided by the patient. No station mechanic helper was used. URI She complains of cough. [...] back pain 07/20/[address] Duarte at [facility]. 08/18/[address] Fischer at [facility] throat clearing 02/01/2018 Ectopic gastric mucosa of multiple sites 05/06/[address] Granado 04/2022 Elevated fasting blood sugar 08/14/2018 Encounter for gynecological examination without abnormal finding 07/20/[address] [facility]. Essential hypertension 07/20/2016 GERD without [...] at physician's office 01/16/2023 DPA: Nate (Son) Lumyfngo 03/21/[address] Duarte at [facility]. Medicare annual wellness visit, subsequent 08/14/2018 Medicare Part B: 06/06/2008 last done: 08/23/2019 Migraine without aura and without status migrainosus, not intractable 07/20/2016 Mixed hyperlipidemia 01/14/2008 Postmenopausal atrophic vaginitis 06/06/2012 Pulmonary nodules 10/03/201609/2016, follow uo CT in a year, 08/[address] Zheng Right thyroid nodule 10/03/2016 Had benign biopsy 09/2016 at [facility] Seasonal allergies 07/20/2016 Sinus arrhythmia Spinal [...] of Onset Coronary Artery Disease Mother Fatal [place] in her 80s Diabetes Father ADULT ONSET [...] A/B & RSV PCR, ROUTINE Katelin Jameson APRN.[employer] documented in this encounterLouis Stokes [facility] Center03-12-2025 History of Present illness Narrative* Lorri Clark, - 01/15/2025 8:30 AM EDT Hematologic problem(s): 1) Unprovoked PE. HPI: The patient is an 78-year-old female with a past medical history as outlined below. Presented to the ED at [facility] on 03/24/2024 with complaints of generalized abdominal pain, multiple episodes of vomiting and diarrhea that were keeping her awake at night. 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 Was discharged home. Return to the ED several days later on 04/01. Had been seen earlier in the day at urgent care with atemperature of 100.8. Home thermometer demonstrated temperature to [...] small sliding hiatal hernia and an esophagram demonstratingbarium pill to trap the GE junction previous [...] to Dr. Landeros's note, she agreed with indefiniteanticoagulation. 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 Duarte at [facility]. 08/18/[address] Fischer at [place] Chronic throat clearing 02/01/2018 Ectopic gastric mucosa of multiple sites 05/06/[address] Granado 04/2022 Elevated fasting blood sugar 08/14/2018 Encounter for gynecological examination without abnormal finding 07/20/[address] [facility]. Essential hypertension 07/20/2016 GERD without [...] (Son) Lumbago 03/21/[address] Duarte at [facility]. Medicare annual wellness visit, subsequent 08/14/2018 Medicare Part B: 06/06/2008 last done: 08/23/2019 Migraine without aura and without status migrainosus, not intractable 07/20/2016 Mixed hyperlipidemia 01/14/2008 Postmenopausal atrophic vaginitis 06/06/2012 Pulmonary nodules 10/03/201609/2016, follow uo CT in a year, 08/[address] Zheng Right thyroid nodule 10/03/2016 Had benign biopsy 09/2016 at [facility] Seasonal allergies 07/20/2016 Sinus arrhythmia Spinal [...] HEMORRHOIDECTOMY XTRNL 2/> COLUMN/GROUP LAPAROSCOPY SURG CHOLECYSTECTOMY 2003 Cholecystectomy, lap PAST SURGICAL HISTORY OF 1995 [...] of Onset Coronary Artery Disease Mother Fatal [place] in her 80s Diabetes Father ADULT ONSET [...] dysphagia or odynophagia. No reflux, n/v, change inbowel habits. No abdominal pain, bloating or distension. [...] ongoing anticoagulation. Explained we will obtain a D-dimerin about a month when she is healed [...] which included preparing to see the patient, [id number] patient care, completing clinical documentation, obtaining and/or reviewing separately obtained history, performing a medically appropriate examination, communicating with other HCPs (n ot separately reported), and communicating results to the patient/family/caregiver. Lorri Clark DO documented in this encounterLouis Stokes Cleveland Va [facility] Center03-12-2025 [facility] Note* Addendum Note - Alan Vigil APRN.CNP - 01/14/2025 2:48 PM EDTAddended by: ALAN VIGIL on: 01/14/2025 02:48 PM Modules accepted: Level of Service [facility]03-11-2025 Miscellaneous Notes* Addendum Note - Alan Vigil APRN.CNP - 01/14/2025 2:48 PM EDTAddended by: ALAN VIGIL on: 01/14/2025 02:48 PM Modules accepted: Level of Service documented in this encounterLouis Stokes Cleveland Va Medical Center03-11-2025 [facility]03-11-2025 History of Present illness Narrative* Alan Vigil APRN.CNP - 01/14/2025 1:20 PM EDT Chief Complaint Patient presents with: Follow Up: Right arm wound HPI Gregg Ferris is a 79 year old female who presents here today for Above Complaints.. Patient present today for follow up of right arm. Patient was on cruise January 04 and the elevator door closed on her right forearm. [facility] placed sutures on her forearm after cleaning [...] back pain 07/20/[address] Duarte at [facility]. 08/18/[address] Fischer at [place] Chronic throat clearing 02/01/2018 Ectopic gastric mucosa of multiple sites 05/06/[address] Granado 04/2022 Elevated fasting blood sugar 08/14/2018 Encounter for gynecological examination without abnormal finding 07/20/[address] [facility]. Essential hypertension 07/20/2016 GERD without [...] (Son) Lumbago 03/21/[address] Duarte at [facility]. Medicare annual wellness visit, subsequent 08/14/2018 Medicare Part B: 06/06/2008 last done: 08/23/2019 Migraine without aura and without status migrainosus, not intractable 07/20/2016 Mixed hyperlipidemia 01/14/2008 Postmenopausal atrophic vaginitis 06/06/2012 Pulmonary nodules 10/03/201609/2016, follow uo CT in a year, 08/[address] Zheng Right thyroid nodule 10/03/2016 Had benign biopsy 09/2016 at [facility] Seasonal allergies 07/20/2016 Sinus arrhythmia Spinal [...] of Onset Coronary Artery Disease Mother Fatal [place] in her 80s Diabetes Father ADULT ONSET [...] patient start taking 5 mg Mon, Wed, Th, Fri, Sun and 7.5 mg on , [...] needed. Follow up as needed. Alan Vigil APRN.[employer] documented in this encounterLouis Stokes Cleveland Va Medical Center03-11-2025 Telephone encounter Note * Telephone Encounter - Simin Denney - 01/14/2025 8:56 AM EDT Patient called and confirmed [facility] Work Phone: 1(259) 240-757003-11-2025 Miscellaneous Notes* Telephone Encounter - Simin Denney - 01/14/2025 8:56 AM EDT Patient called and confirmed * Telephone Encounter - Simin Denney - 01/07/2025 8:55 AM EST 1st attempt. Message left for patient to contact office for message below. Patient is scheduled for 07/09. Please have patient confirm date/time or reschedule. * Telephone Encounter - Lorri Clark DO - 01/02/2025 10:37 AM EST Thank you. Orders filed. Lorri Clark DO * Telephone Encounter - Lorri Clark DO - 01/02/2025 6:34 AM EST Can let her know mammogram and US show stable findings left breast. Benign but radiologist recommended one more 6 month follow up diagnostic left mammogram and US to assure stability. Please pend order and schedule. Lorri Clark DO documented in this encounterLouis Stokes Cleveland Va Medical Center03-04-2025 Telephone encounter Note * Telephone Encounter - Simin Denney - 01/07/2025 8:55 AM EST 1st attempt. Message left for patient to contact office for message below. Patient is scheduled for 07/09. Please have patient confirm date/time or reschedule. [facility]02-27-2025 Telephone encounter Note* Telephone Encounter - Lorri Clark DO - 01/02/2025 10:37 AM EST Thank you. Orders filed. Lorri Clark DO [facility]02-27-2025 Telephone encounter Note* Telephone Encounter - Lorri Clark DO - 01/02/2025 6:34 AM EST Can let her know mammogram and US show stable findings left breast. Benign but radiologist recommended one more 6 month follow up diagnostic left mammogram and US to assure stability. Please pend order and schedule. Lorri Clark DO [facility]02-26-2025 History of Present illness Narrative* Nelda Juarez RDMS - 01/01/2025 8:30 AM EST Radiology Service Progress Note PATIENT NAME: Gregg Ferris DATE OF SERVICE: January 01, 2025 TIME: 11:42 AM PATIENT IDENTITY VERIFICATION COMPLETED USING TWO (2) IDENTIFIERS: Name and Date of confirmedby patient verbally. FALL SCREENING: Has the patient had 2 falls in the last year or 1 fall with injury or currently using an Ambulatory Assistive Device (Walker, Cane, Wheelchair, Crutches, etc.)? No PATIENT GENDER DATA: Assigned female at . status: : No status:NO. PATIENT RELEVANT IMPLANT DATA REVIEWED: Not Applicable PATIENT PRESENTS WITH AN IMPLANTABLE OR ATTACHED KENNEL STAFF MEMBER: No RADIOLOGY DEPARTMENT: Ultrasound PERIPHERAL IV DATA: Not applicable SIGNED BY: Nelda Juarez RDMS January 01, 2025 11:42 AM documented in this encounterLouis Stokes Cleveland Va Medical Center02-26-2025 NoteGlen[facility] Hospital02-26-2025 History of Present illness Narrative* Kimberly Juarez RT(R) - 01/01/2025 8:00 AM EST Radiology Service Progress Note PATIENT NAME: Gregg Ferris DATE OF SERVICE: January 01, 2025 TIME: 8:43 AM PATIENT IDENTITY VERIFICATION COMPLETED USING TWO (2) IDENTIFIERS: Name and Date of confirmedby patient verbally. FALL SCREENING: Has the patient had 2 falls in the last year or 1 fall with injury or currently using an Ambulatory Assistive Device (Walker, Cane, Wheelchair, Crutches, etc.)? No PATIENT GENDER DATA: Assigned female at . status: : No status:NO. PATIENT RELEVANT IMPLANT DATA REVIEWED: Not Applicable PATIENT PRESENTS WITH AN IMPLANTABLE OR ATTACHED KENNEL STAFF MEMBER: No RADIOLOGY DEPARTMENT: Mammography PERIPHERAL IV DATA: Not applicable SIGNED BY: RT Aj(R) January 01, 2025 8:43 AM documented in this encounterLouis Stokes Cleveland [facility] Center02-26-2025 NoteGlen[facility] Hospital01-31-2025 Telephone encounter Note* Telephone Encounter - Naye Jackson RN - 12/06/2024 4:36 PM EST Pt called and is notified of providers mesage and instructions. Pt voices understanding. Naye Jackson RN [facility]01-31-2025 Miscellaneous Notes* Telephone Encounter - Naye Jackson RN - 12/06/2024 4:36 PM EST Pt called and is notified of providers mesage and instructions. Pt voices understanding. Naye Jackson RN * Telephone Encounter - Rangel Bonilla MD - 12/06/2024 4:31 PM EST Let patient know I don't have a concern with the meds. I just don't prescribe them and suspect ENT does. * Telephone Encounter - Naye Jackson RN - 12/06/2024 11:58 AM EST Pt called and is notified of providers results and instructions. Pt voices understanding. She was asking if Dr Bonilla doesn't approve of the medications and that's why he won't prescribe them. I toldher it could be a medication that is managed by a specialist. She states because she sees Dr Bonillaall the time, and she hasn't seen Dr Brown in 4 or 5 years. Please call and advise. Naye Jackson RN * Telephone Encounter - Clarita Neely LPN - 12/06/2024 8:34 AM EST Left message for pt to contact office. Clarita Neely LPN * Telephone Encounter - Rangel Bonilla MD - 12/05/2024 4:05 PM EST Let patient know I received office notes from Dr. Granado. The two medications he suggested I do notprescribe. However I know she sees Dr. Brown for her allergies and he may be willing to prescribe the Salagen or Evoxac to see if it helps reduce her cough. She should know that I looked up these meds and then need to be take 3-4 times a day. documented in this encounterLouis Stokes Cleveland Va Medical Center01-31-2025 Telephone encounter Note * Telephone Encounter - Rangel Bonilla MD - 12/06/2024 4:31 PM EST Let patient know I don't have a concern with the meds. I just don't prescribe them and suspect ENT does. [facility]01-31-2025 Telephone encounter Note* Telephone Encounter - Naye Jackson RN - 12/06/2024 11:58 AM EST Pt called and is notified of providers results and instructions. Pt voices understanding. She was asking if Dr Bonilla doesn't approve of the medications and that's why he won't prescribe them. I toldher it could be a medication that is managed by a specialist. She states because she sees Dr Bonillaall the time, and she hasn't seen Dr Brown in 4 or 5 years. Please call and advise. Naye Jackson, RN [facility]01-31-2025 Telephone encounter Note* Telephone Encounter - Clarita Neely LPN - 12/06/2024 8:34 AM EST Left message for pt to contact office. Clarita Neely LPN [facility]01-30-2025 Telephone encounter Note* Telephone Encounter - Rangel Bonilla MD - 12/05/2024 4:05 PM EST Let patient know I received office notes from Dr. Granado. The two medications he suggested I do notprescribe. However I know she sees Dr. Brown for her allergies and he may be willing to prescribe the Salagen or Evoxac to see if it helps reduce her cough. She should know that I looked up these meds and then need to be take 3-4 times a day. [facility]12-04-2024 Telephone encounter Note* Telephone Encounter - Madison Vazquez MA - 10/09/2024 5:21 PM EST Patient notified and voiced understanding. Madison Vazquez MA [facility]12-04-2024 Miscellaneous Notes* Telephone Encounter - Madison Vazquez MA - 10/09/2024 5:21 PM EST Patient notified and voiced understanding. Madison Vazquez MA * Telephone Encounter - Rangel Bonilla MD - 10/09/2024 5:03 PM EST Advise patient she needs to be on the coumadin until 10/13/2024 and can then actually stop it. Therefore would not need the INR on 10/17/2024. * Telephone Encounter - Madison Vazquez MA - 10/09/2024 1:59 PM EST Patient notified and voiced understanding. Patient mentioned that at her last visit she was told she would be probably be done with Coumadin early October. Patient is wanting to know when she will be finished with the medication. Cataract surgery on October 14 and . Madison Vazquez MA * Telephone Encounter - Rangel Bonilla MD - 10/09/2024 1:12 PM EST Advise patient to take a total of 7.5 mg just today and then go back to taking 7.5 mg on Sat and and 5 mg all other days. Get next INR at [facility] next 10/17/2024. * Telephone Encounter - Madison Vazquez MA - 10/09/2024 12:28 PM EST Current INR: 1.2 Current dose: 7.5 Monday/Mon [...] High CM 1.8 High CM 2.2 High Madison Vazquez MA documented in this encounterLouis Stokes Cleveland Va Medical Center12-04-2024 Telephone encounter Note * Telephone Encounter - Rangel Bonilla MD - 10/09/2024 5:03 PM EST Advise patient she needs to be on the coumadin until 10/13/2024 and can then actually stop it. Therefore would not need the INR on 10/17/2024. [facility]12-04-2024 Telephone encounter Note* Telephone Encounter - Madison Vazquez MA - 10/09/2024 1:59 PM EST Patient notified and voiced understanding. Patient mentioned that at her last visit she was told she would be probably be done with Coumadin early October. Patient is wanting to know when she will be finished with the medication. Cataract surgery on October 14 and . Madison Vazquez MA [facility]12-04-2024 Telephone encounter Note* Telephone Encounter - Rangel Bonilla MD - 10/09/2024 1:12 PM EST Advise patient to take a total of 7.5 mg just today and then go back to taking 7.5 mg on Mon and and 5 mg all other days. Get next INR at [facility] next 10/17/2024. [facility]12-04-2024 Telephone encounter Note* Telephone Encounter - Madison Vazquez MA - 10/09/2024 12:28 PM EST Current INR: 1.2 Current dose: 7.5 Monday/Mon [...] High CM 1.8 High CM 2.2 High Maidson Vazquez MA [facility]11-25-2024 Telephone encounter Note* Telephone Encounter - Rangel Bonilla MD - 09/30/2024 4:38 PM EST Noted. [facility]11-25-2024 Miscellaneous Notes* Telephone Encounter - Rangel Bonilla MD - 09/30/2024 4:38 PM EST Noted. * Telephone Encounter - Madison Vazquez MA - 09/30/2024 3:48 PM EST Patient indicated that Dr. Gonzalez is doing the surgery she contacted there office and she doesn't have to stop the coumadin. Patient did mentioned she forgot that she had cortizone shot 09/26/2024. That could be the reason for the increased INR. Patient having her INR rechecked next . And her surgery is 10/14. Madison Vazquez MA * Telephone Encounter - Rangel Bonilla MD - 09/30/2024 1:56 PM EST Advise patient she needs to find out from the surgeon if she needs to be off the coumadin for the surgery. If so, how many days prior. We would need to bridge her with the Lovenox shots then from thetime she is off it up to the day of surgery and then back on it the next day and either restart thecoumadin or stay on the Lovenox till the second surgery is complete and then restart the coumadin and stop the Lovenox once the INR is between 2-3. * Telephone Encounter - Rylie Kaur RN - 09/30/2024 1:23 PM EST Patient calls and states that she has cataract surgery on 10/14. Patient asking if she needs to do anything special for this since she is on Coumadin? Patient worried that surgery is going to mess upINR. Second cataract surgery is on 10/25. Please review and advise, Rylie Kaur RN documented in this encounterLouis Stokes Cleveland [facility] Medical Center11-25-2024 Telephone encounter Note * Telephone Encounter - Madison Vazquez MA - 09/30/2024 3:48 PM EST Patient indicated that Dr. Gonzalez is doing the surgery she contacted there office and she doesn't have to stop the coumadin. Patient did mentioned she forgot that she had cortizone shot 09/26/2024. That could be the reason for the increased INR. Patient having her INR rechecked next . And her surgery is 10/14. Madison Vazquez MA [facility]11-25-2024 Telephone encounter Note* Telephone Encounter - Rangel Bonilla MD - 09/30/2024 1:56 PM EST Advise patient she needs to find out from the surgeon if she needs to be off the coumadin for the surgery. If so, how many days prior. We would need to bridge her with the Lovenox shots then from thetime she is off it up to the day of surgery and then back on it the next day and either restart thecoumadin or stay on the Lovenox till the second surgery is complete and then restart the coumadin and stop the Lovenox once the INR is between 2-3. [facility]11-25-2024 Telephone encounter Note* Telephone Encounter - Rylie Kaur RN - 09/30/2024 1:23 PM EST Patient calls and states that she has cataract surgery on 10/14. Patient asking if she needs to do anything special for this since she is on Coumadin? Patient worried that surgery is going to mess upINR. Second cataract surgery is on 10/25. Please review and advise, Rylie Kaur RN [facility]11-25-2024 Telephone encounter Note* Telephone Encounter - Madison Vazquez MA - 09/30/2024 12:12 PM EST Spoke with patient and gave instructions. She voiced understanding. Madison Vazquez MA [facility]11-25-2024 Miscellaneous Notes* Telephone Encounter - Madison Vazquez MA - 09/30/2024 12:12 PM EST Spoke with patient and gave instructions. She voiced understanding. Madison Vazquez MA * Telephone Encounter - Rangel Bonilla MD - 09/30/2024 11:51 AM EST Advise patient to hold her coumadin today and tomorrow. Starting Wed go to taking 7.5 mg on Tues and Sat and 5 mg all other days. Needs INR Next Mon at [facility]. * Telephone Encounter - Nikko Carmona RN - 09/30/2024 11:46 AM EST Miles Ledesma- [facility] lab- reporting high INR 5.2. See previous message below. Phoned pt for findings: No unusual bleeding or bruising No recent AB's No diet changes but did have 2 glasses of wine and Monday and also Monday. No missed or xtra doses. Please advise patient. * Telephone Encounter - Madison Vazquez MA - 09/30/2024 11:14 AM EST Current: INR 5.2 Current dose: Current dose [...] 2.2 High CM 2. documented in this encounterLouis Stokes Cleveland Va Medical Center11-25-2024 Telephone encounter Note * Telephone Encounter - Rangel Bonilla MD - 09/30/2024 11:51 AM EST Advise patient to hold her coumadin today and tomorrow. Starting Wed go to taking 7.5 mg on Tues and Sat and 5 mg all other days. Needs INR Next Mon at [facility]. [facility]11-25-2024 Telephone encounter Note* Telephone Encounter - Nikko Carmona RN - 09/30/2024 11:46 AM EST Miles Ledesma- [facility] lab- reporting high INR 5.2. See previous message below. Phoned pt for findings: No unusual bleeding or bruising No recent AB's No diet changes but did have 2 glasses of wine and Monday and also Monday. No missed or xtra doses. Please advise patient. [facility]11-25-2024 Telephone encounter Note* Telephone Encounter - Madison Vazquez MA - 09/30/2024 11:14 AM EST Current: INR 5.2 Current dose: Current dose [...] 1.8 High CM 2.2 High CM 2. [facility]11-11-2024 Telephone encounter Note* Telephone Encounter - Madison Vazquez MA - 2024 12:53 PM EST Patient notified and voiced understanding. Madison Vazquez MA [facility]11-11-2024 Miscellaneous Notes* Telephone Encounter - Madison Vazquez MA - 2024 12:53 PM EST Patient notified and voiced understanding. Madison Vazquez MA * Telephone Encounter - Rangel Bonilla MD - 2024 12:35 PM EST Patient to continue same coumadin dosing and get repeat INR at [place] in 2 weeks. * Telephone Encounter - Madison Vazquez MA - 2024 9:58 AM EST Current INR: 2.7 Current dose of coumadin [...] Therapeutic Range: INR 2 to 3 (Target Madison Vazquez MA documented in this encounterLouis Stokes Cleveland [facility] Medical Center11-11-2024 Telephone encounter Note * Telephone Encounter - Rangel Bonilla MD - 2024 12:35 PM EST Patient to continue same coumadin dosing and get repeat INR at [place] in 2 weeks. [facility]11-11-2024 Telephone encounter Note* Telephone Encounter - Madison Vazquez MA - 2024 9:58 AM EST Current INR: 2.7 Current dose of coumadin [...] Therapeutic Range: INR 2 to 3 (Target Madison Vazquez MA [facility]11-04-2024 Telephone encounter Note* Telephone Encounter - Madison Vazquez MA - 09/09/2024 9:14 AM EST Left detailed message for patient. Madison Vazquez MA [facility]11-04-2024 Miscellaneous Notes* Telephone Encounter - Madison Vazquez MA - 09/09/2024 9:14 AM EST Left detailed message for patient. Madison Vazquez MA * Telephone Encounter - Rangel Bonilla MD - 09/09/2024 8:52 AM EST Advise patient to continue current coumadin dosing and recheck INR at [place] in a week. * Telephone Encounter - Madison Vazquez MA - 09/09/2024 8:21 AM EST Current INR: 2.0 Last INR: INR 2.5 [...] CM 3.3 High C documented in this encounterLouis Stokes Cleveland Va Medical Center11-04-2024 Telephone encounter Note * Telephone Encounter - Rangel Bonilla MD - 09/09/2024 8:52 AM EST Advise patient to continue current coumadin dosing and recheck INR at [place] in a week. [facility]11-04-2024 Telephone encounter Note* Telephone Encounter - Madison Vazquez MA - 09/09/2024 8:21 AM EST Current INR: 2.0 Last INR: INR 2.5 [...] CM 2.3 High CM 3.3 High C [facility]10-28-2024 Telephone encounter Note* Telephone Encounter - Naye Jackson RN - 09/02/2024 12:59 PM EDT Pt called and is notified of providers results and instructions. Pt voices understanding. Updated Anticoag tracker. Naye Jackson RN [facility]10-28-2024 Miscellaneous Notes* Telephone Encounter - Naye Jackson RN - 09/02/2024 12:59 PM EDT Pt called and is notified of providers results and instructions. Pt voices understanding. Updated Anticoag tracker. Naye Jackson RN * Telephone Encounter - Rangel Bonilla MD - 09/02/2024 12:42 PM EDT Advise patient to continue same dosing and repeat INR in a week. * Telephone Encounter - Sussy Gann MA - 09/02/2024 9:54 AM EDT Last INR: INR 2.5 09/02/2024 Current dose of coumadin is: 7.5 mg Tues/Thurs/Sat, 5 mg all other days. Last date of dose change: 08/29/24. Previous INR (date and result): 08/29/24 INR: 1.8 Additional Clinical Information or narrative: no documented in this encounterLouis Stokes Cleveland [facility] Center10-28-2024 Telephone encounter Note * Telephone Encounter - Rangel Bonilla MD - 09/02/2024 12:42 PM EDT Advise patient to continue same dosing and repeat INR in a week. [facility]10-28-2024 Telephone encounter Note* Telephone Encounter - Sussy Gann MA - 09/02/2024 9:54 AM EDT Last INR: INR 2.5 09/02/2024 Current dose of coumadin is: 7.5 mg Tues/Thurs/Sat, 5 mg all other days. Last date of dose change: 08/29/24. Previous INR (date and result): 08/29/24 INR: 1.8 Additional Clinical Information or narrative: no [facility]10-24-2024 Telephone encounter Note* Telephone Encounter - Clarita Neely LPN - 08/29/2024 9:50 AM EDT Spoke with pt and advised her of instructions. Pt verbalizes understanding. Copy of instructions also sent to pt via TeleFlip. Tracker updated. Clarita Neely LPN [facility]10-24-2024 Miscellaneous Notes* Telephone Encounter - Clarita Neely LPN - 08/29/2024 9:50 AM EDT Spoke with pt and advised her of instructions. Pt verbalizes understanding. Copy of instructions also sent to pt via TeleFlip. Tracker updated. Clarita Neely LPN * Telephone Encounter - Rangel Bonilla MD - 08/29/2024 9:29 AM EDT Advise Gregg starting today take 7.5 mg of coumadin on Thur, Sat, Tue and 5 mg all other days. Needs next lab INR at [place] on Monday09/02/2024. * Telephone Encounter - Clarita Neely LPN - 08/29/2024 9:23 AM EDT Last INR: INR 1.8 08/29/2024 Current dose of coumadin is: 7.5 mg Tues and Sat and 5 mg all other days. . Previous INR (date and result): 08/27/24 2.2 Additional Clinical Information or narrative: no documented in this encounterLouis [facility]10-[facility]24 Telephone encounter Note * Telephone Encounter - Rangel Bonilla MD - 08/29/2024 9:29 AM EDT Advisangelito Green starting today take 7.5 mg of coumadin on Th, Sat, Tue and 5 mg all other days. Needs next lab INR at [place] on Monday09/02/2024. [facility]10-24-2024 Telephone encounter Note* Telephone Encounter - Clarita Neely LPN - 08/29/2024 9:23 AM EDT Last INR: INR 1.8 08/29/2024 Current dose of coumadin is: 7.5 mg Tues and Sat and 5 mg all other days. . Previous INR (date and result): 08/27/24 2.2 Additional Clinical Information or narrative: no [facility]10-22-2024 Telephone encounter Note* Telephone Encounter - Madison Vazquez MA - 08/27/2024 12:48 PM EDT Patient notified and voiced understanding. Madison Vazquez MA [facility]10-22-2024 Miscellaneous Notes* Telephone Encounter - Madison Vazquez MA - 08/27/2024 12:48 PM EDT Patient notified and voiced understanding. Madison Vazquez MA * Telephone Encounter - Rangel Bonilla MD - 08/27/2024 12:36 PM EDT Let patient know INR was ok. Advise her to get it repeated on at [facility] lab to make sure the antibiotic did not cause her to INR to go too high * Telephone Encounter - Madison Vazquez MA - 08/27/2024 12:27 PM EDT Current INR: 2.2 Current dose: 5 mg [...] CM 1.5 High C documented in this encounterLouis Stokes [facility]10-22-2024 Telephone encounter Note * Telephone Encounter - Rangel Bonilla MD - 08/27/2024 12:36 PM EDT Let patient know INR was ok. Advise her to get it repeated on at [facility] lab to make sure the antibiotic did not cause her to INR to go too high [facility]10-22-2024 Telephone encounter Note* Telephone Encounter - Madison Vazquez MA - 08/27/2024 12:27 PM EDT Current INR: 2.2 Current dose: 5 mg Mon, Wed, Thur, Mon, Mon and 7.5 mg on , [...] CM 1.4 High CM 1.5 High C [facility]10-22-2024 Telephone encounter Note* Telephone Encounter - Cabrera Moore MA - 08/27/2024 11:15 AM EDT Patient was notified Cabrera Moore MA [facility]10-22-2024 Miscellaneous Notes* Telephone Encounter - Cabrera Moore MA - 08/27/2024 11:15 AM EDT Patient was notified Cabrera Moore MA * Telephone Encounter - Rangel Bonilla MD - 08/27/2024 11:02 AM EDT Let patient know that if everything coming [...] days, sever facial pain or breathing issues. * Telephone Encounter - Madison Vazquez MA - 08/27/2024 10:05 AM EDT Spoke with patient and gave PCP instructions. [...] sinuses before she should be seen. How longdoes it take to clear up? Madison Vazquez MA * Telephone Encounter - Rangel Bonilla MD - 08/27/2024 9:35 AM EDT Advise patient that you never take left over antibiotics and in fact you should never have left over antibiotics. There is a standing order for INR at our lab. Should go to [facility] today to get. In regards to her sinus issues this may have gotten better on her own without the need for meds. * Telephone Encounter - Telma Venegas LPN - 08/27/2024 8:11 AM EDT Closed in error. Telma Venegas LPN * Telephone Encounter - Telma Venegas LPN - 08/27/2024 8:04 AM EDT Pt called to let you know she [...] Her son also told her she may needto have an INR done today because she did this. Pt not due for her next INR till Monday09-02-24. Pt takes coumadin Tues and Sat 7.5 and on all other days takes 5 mg. Please advise pt on above. Telma Venegas LPN documented in this encounterLouis [facility]10-22-2024 Telephone encounter Note * Telephone Encounter - Rangel Bonilla MD - 08/27/2024 11:02 AM EDT Let patient know that if everything coming [...] days, sever facial pain or breathing issues. [facility]10-22-2024 Telephone encounter Note* Telephone Encounter - Madison Vazquez MA - 08/27/2024 10:05 AM EDT Spoke with patient and gave PCP instructions. [...] sinuses before she should be seen. How longdoes it take to clear up? Madison Vazquez MA [facility]10-22-2024 Telephone encounter Note* Telephone Encounter - Rangel Bonilla MD - 08/27/2024 9:35 AM EDT Advise patient that you never take left over antibiotics and in fact you should never have left over antibiotics. There is a standing order for INR at our lab. Should go to [facility] today to get. In regards to her sinus issues this may have gotten better on her own without the need for meds. [facility]10-22-2024 Telephone encounter Note* Telephone Encounter - Telma Venegas LPN - 08/27/2024 8:11 AM EDT Closed in error. Telma Venegas LPN [facility]10-22-2024 Telephone encounter Note* Telephone Encounter - Telma Venegas LPN - 08/27/2024 8:04 AM EDT Pt called to let you know she [...] Her son also told her she may needto have an INR done today because she did this. Pt not due for her next INR till Monday09-02-24. Pt takes coumadin Tues and Sat 7.5 and on all other days takes 5 mg. Please advise pt on above. Telma Venegas LPN [facility]10-16-2024 Instructions* Patient Instructions* Rangel Bonilla MD - 08/21/2024 5:36 PM EDT Please get labs and urine test done on or after 02/07/2025 prior to your next visit. documented in this encounterLouis Stokes [facility]10-16-2024 History of Present illness Narrative* Rangel Bonilla MD - 08/21/2024 5:20 PM EDT Chief Complaint Patient presents with: F/U 6 months HPI Gregg Ferris is a 78 year old female who presents here today for 6 month follow up. Patient with Hx of HTN, elevated fasting blood sugar. GERD, hyperlipidemia, Chronic back pain, frequent UTI's, seasonal allergies as well as those reviewed and addressed below and in ROS. 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 Patient was [...] back pain 07/20/[address] Duarte at [facility]. 08/18/[address] Fischer at [facility] Chronic throat clearing 02/01/2018 Ectopic gastric mucosa of multiple sites 05/06/[address] Granado 04/2022 Elevated fasting blood sugar 08/14/2018 Encounter for gynecological examination without abnormal finding 07/20/[address] [facility]. Essential hypertension 07/20/2016 GERD without esophagitis 01/14/2008 [...] (Son) Lumbago 03/21/[address] Duarte at [facility]. Medicare annual wellness visit, subsequent 08/14/2018 Medicare Part B: 06/06/2008 last done: 08/23/2019 Migraine without aura and without status migrainosus, not intractable 07/20/2016 Mixed hyperlipidemia 01/14/2008 Postmenopausal atrophic vaginitis 06/06/2012 Pulmonary nodules 10/03/201609/2016, follow uo CT in a year, 08/[address] Zheng Right thyroid nodule 10/03/2016 Had benign biopsy 09/2016 at [facility] Seasonal allergies 07/20/2016 Sinus arrhythmia Spinal [...] of Onset Coronary Artery Disease Mother Fatal [place] in her 80s Diabetes Father ADULT ONSET [...] BP Cuff Size: Regular Adult) Pulse 66 Resp18 Wt 61.2 kg (135 lb) SpO2 96% [...] prior Rangel Bonilla MD documented in this encounterLouis [facility]10-14-2024 Telephone encounter Note * Telephone Encounter - Cecy Venegas LPN - 08/19/2024 3:55 PM EDT Pt. informed. [facility]10-14-2024 Miscellaneous Notes* Telephone Encounter - Cecy San LPN - 08/19/2024 3:55 PM EDT Pt. informed. * Telephone Encounter - Madison Vazquez MA - 08/19/2024 1:02 PM EDT Left detailed message for patient with instructions. Asked patient to call back. Madison Vazquez MA * Telephone Encounter - Rangel Bonilla MD - 08/19/2024 11:57 AM EDT Advise patient to continue the same dosing of coumadin and repeat INR in 2 weeks. * Telephone Encounter - Madison Vazquez MA - 08/19/2024 9:52 AM EDT Current INR: 2.1 Current dose: 5 mg Mon, Wed, , Fri, Sun and 7.5 mg on [...] result): 3.3 on 08/08/24. documented in this encounterLouis Stokes [facility]10-14-2024 Telephone encounter Note * Telephone Encounter - Madison Vazquez MA - 08/19/2024 1:02 PM EDT Left detailed message for patient with instructions. Asked patient to call back. Madison Vazquez MA [facility]10-14-2024 Telephone encounter Note* Telephone Encounter - Rangel Bonilla MD - 08/19/2024 11:57 AM EDT Advise patient to continue the same dosing of coumadin and repeat INR in 2 weeks. [facility]10-14-2024 Telephone encounter Note* Telephone Encounter - Madison Vazquez MA - 08/19/2024 9:52 AM EDT Current INR: 2.1 Current dose: 5 mg [...] INR (date and result): 3.3 on 08/08/24. [facility]10-07-2024 Telephone encounter Note* Telephone Encounter - Rangel Bonilla MD - 08/12/2024 4:38 PM EDT The following approved medication requests have been transmitted electronically. Requested Prescriptions Signed Prescriptions Disp Refills warfarin (COUMADIN) 5 mg tablet 60 tablet 5 Sig: Starting today 08/12/24 have patient start taking 5 mg Mon, Wed, Thur, Fri, Sun and 7.5 mg on Tues, Sat. Authorizing Provider: RANGEL BONILLA MD [facility]10-07-2024 Miscellaneous Notes* Telephone Encounter - Rangel Bonilla MD - 08/12/2024 4:38 PM EDT The following approved medication requests have been transmitted electronically. Requested Prescriptions Signed Prescriptions Disp Refills warfarin (COUMADIN) 5 mg tablet 60 tablet 5 Sig: Starting today 08/12/24 have patient start taking 5 mg Mon, Wed, Thur, Fri, Sun and 7.5 mg on Tues, Sat. Authorizing Provider: RANGEL BONILLA MD * Telephone Encounter - Naye Jackson RN - 08/12/2024 4:15 PM EDT Pt called in and reports she called to get Rx refilled but [facility] pharmacy said provider needs to send in [...] 12, 2024 4:17 PM documented in this encounterLouis Stokes [facility]10-07-2024 Telephone encounter Note * Telephone Encounter - Naye Jackson RN - 08/12/2024 4:15 PM EDT Pt called in and reports she called to get Rx refilled but [facility] pharmacy said provider needs to send in [...] Jackson RN August 12, 2024 4:17 PM [facility]10-07-2024 Telephone encounter Note* Telephone Encounter - Naye Jackson RN - 08/12/2024 3:51 PM EDT Pt called and is notified of providers results and instructions. Pt voices understanding. Updated Anticoag Tracker. Naye Jackson RN [facility]10-07-2024 Miscellaneous Notes* Telephone Encounter - Naye Jackson RN - 08/12/2024 3:51 PM EDT Pt called and is notified of providers results and instructions. Pt voices understanding. Updated Anticoag Tracker. Naye Jackson RN * Telephone Encounter - Madison Vazquez MA - 08/12/2024 10:52 AM EDT Left message for patient to contact office. Madison Vazquez MA * Telephone Encounter - Rangel Bonilla MD - 08/12/2024 10:49 AM EDT Starting today have patient do 5 mg Mon, Wed, Th, Fri, Sun and 7.5 mg on , Sat. Needs INR in a week. * Telephone Encounter - Ana Mott MA - 08/12/2024 9:21 AM EDT Last INR: INR 2.3 08/12/2024 Current dose [...] 08/12/24. Ana Mott MA documented in this encounterLouis Stokes [facility]10-07-2024 Telephone encounter Note * Telephone Encounter - Madison Vazquez MA - 08/12/2024 10:52 AM EDT Left message for patient to contact office. Madison Vazquez MA [facility]10-07-2024 Telephone encounter Note* Telephone Encounter - Rangel Bonilla MD - 08/12/2024 10:49 AM EDT Starting today have patient do 5 mg Mon, Wed, Th, Fri, Sun and 7.5 mg on , Sat. Needs INR in a week. [facility]10-07-2024 Telephone encounter Note* Telephone Encounter - Ana Mott MA - 08/12/2024 9:21 AM EDT Last INR: INR 2.3 08/12/2024 Current dose [...] recheck INR on 08/12/24. Ana Mott MA [facility]10-03-2024 Telephone encounter Note* Telephone Encounter - Waleska Cespedes MA - 08/08/2024 2:26 PM EDT Patient informed. Waleska Cespedes MA [facility]10-03-2024 Miscellaneous Notes* Telephone Encounter - Waleska Cespedes MA - 08/08/2024 2:26 PM EDT Patient informed. Waleska Cespedes MA * Telephone Encounter - Rangel Bonilla MD - 08/08/2024 1:56 PM EDT Advise patient to hold her coumadin dose today. Also since her INR is above three she can stop the Lovenox. Starting Monday take 5 mg, Sat take 7.5 mg and Monday take 5 mg. Needs next INR on Monday08/12/2024 * Telephone Encounter - Clarita Neely LPN - 08/08/2024 12:22 PM EDT Last INR: INR 3.3 08/08/2024 Current dose of coumadin is: 7.5 mg on Mon (08/05) 5 mg (08/06) 7.5 mg on Mon (08/08). Taking Lovenox Last date of dose change: 08/05/24. take 7.5mg today 08/05/24 & 08/07/24, take 5mg 08/06/24 Previous INR (date and result): 08/05/24 1.7 Additional Clinical Information or narrative: no Clarita Neely LPN documented in this encounterLouis Stokes [facility]10-03-2024 Telephone encounter Note * Telephone Encounter - Rangel Bonilla MD - 08/08/2024 1:56 PM EDT Advise patient to hold her coumadin dose today. Also since her INR is above three she can stop the Lovenox. Starting Monday take 5 mg, Sat take 7.5 mg and Monday take 5 mg. Needs next INR on Monday08/12/2024 [facility]10-03-2024 Telephone encounter Note* Telephone Encounter - Clarita Neely LPN - 08/08/2024 12:22 PM EDT Last INR: INR 3.3 08/08/2024 Current dose of coumadin is: 7.5 mg on Mon (08/05) 5 mg Tu (08/06) 7.5 mg on Wed (08/08). Taking Lovenox Last date of dose change: 08/05/24. take 7.5mg today 08/05/24 & 08/07/24, take 5mg 08/06/24 Previous INR (date and result): 08/05/24 1.7 Additional Clinical Information or narrative: no Clarita Neely LPN [facility]10-02-2024 Telephone encounter Note* Telephone Encounter - Nikko Carmona RN - 08/07/2024 2:50 PM EDT Phoned patient and given provider's message below with verbalized understanding. Patient asking provider to send Rx to [facility], for 10 pens and 1 refill. Advised patient she has a refill on lovenox at pharmacy and to ask them if she can fill for 10 pens instead of 20. Patient agreeable to call them and see if they can do this. [facility]10-02-2024 Miscellaneous Notes* Telephone Encounter - Nikko Carmona RN - 08/07/2024 2:50 PM EDT Phoned patient and given provider's message below with verbalized understanding. Patient asking provider to send Rx to [facility], for 10 pens and 1 refill. Advised patient she has a refill on lovenox at pharmacy and to ask them if she can fill for 10 pens instead of 20. Patient agreeable to call them and see if they can do this. * Telephone Encounter - Rayna Martinez PA-C - 08/07/2024 2:27 PM EDT Let patient know that I am unable to answer those questions. Basically, it's my understanding that she will need to be on lovenox until her INR is in normal range for 2 checks. * Telephone Encounter - Milagro Guaman LPN - 08/07/2024 1:15 PM EDT Patient calling, states that she will come in tomorrow as scheduled for her lab work but asking if how long she may need to stay on the Lovenox. States she has one injection left and will have to geta refill. Last time she had got 20 injections. Does not want to get that many until she knows if she will need them. Was supposed to discuss this today at her appointment with PCP. Please advise. documented in this encounterLouis [facility]10-02-2024 Telephone encounter Note * Telephone Encounter - Rayna Martinez PA-C - 08/07/2024 2:27 PM EDT Let patient know that I am unable to answer those questions. Basically, it's my understanding that she will need to be on lovenox until her INR is in normal range for 2 checks. [facility] Work Phone: 1(544) 397-973810-02-2024 Telephone encounter Note* Telephone Encounter - Milagro Guaman LPN - 08/07/2024 1:15 PM EDT Patient calling, states that she will come in tomorrow as scheduled for her lab work but asking if how long she may need to stay on the Lovenox. States she has one injection left and will have to geta refill. Last time she had got 20 injections. Does not want to get that many until she knows if she will need them. Was supposed to discuss this today at her appointment with PCP. Please advise. [facility]09-30-2024 Telephone encounter Note* Telephone Encounter - Izabela Yepez LPN - 08/05/2024 2:37 PM EDT Pt notified of result & instructions for medication change, pt to repeat IRN /324. Pt has appt with pcp 08/06/24. Izabela Yepez LPN [facility]09-30-2024 Miscellaneous Notes* Telephone Encounter - Izabela Yepez LPN - 08/05/2024 2:37 PM EDT Pt notified of result & instructions for medication change, pt to repeat IRN /324. Pt has appt with pcp 08/06/24. Izabela Yepez LPN * Telephone Encounter - Nikko Carmona RN - 08/05/2024 1:26 PM EDT Left vm for patient to return call to nurse for provider message. * Telephone Encounter - Rangel Bonilla MD - 08/05/2024 12:30 PM EDT Have patient take 7.5 mg of coumadin today, 5 mg and 7.5 mg on Mon. Continue the lovenox and recheck INR on 08/08/2024 * Telephone Encounter - Ana Mott MA - 08/05/2024 9:47 AM EDT Last INR: INR 1.7 08/05/2024 Current dose of coumadin is: 5 mg Fri, Sat and Sun, (08/02, 08/03 and 08/04), taking Lovenox. Previousdosage was 5 mg Tues and Thurs and 2.5 mg on Wed and Lovenox. Last date of dose change: 08/02/24. Previous INR (date and result): 1.4 on 08/02/24 Additional Clinical Information or narrative: Yes, Patient reports most recent medication changes in June: Cephalexin 250 mg daily for UTI prevention from urology. Vitamin C 250 mg daily. D-Mannose 2,00 0-500 mg daily. documented in this encounterLouis Stokes [facility]09-30-2024 Telephone encounter Note * Telephone Encounter - Nikko Carmona RN - 08/05/2024 1:26 PM EDT Left vm for patient to return call to nurse for provider message. [facility]09-30-2024 Telephone encounter Note* Telephone Encounter - Rangel Bonilla MD - 08/05/2024 12:30 PM EDT Have patient take 7.5 mg of coumadin today, 5 mg Tues and 7.5 mg on Wed. Continue the lovenox and recheck INR on 08/08/2024 [facility]09-30-2024 Telephone encounter Note* Telephone Encounter - Ana Mott MA - 08/05/2024 9:47 AM EDT Last INR: INR 1.7 08/05/2024 Current dose of coumadin is: 5 mg Fri, Sat and Sun, (08/02, 08/03 and 08/04), taking Lovenox. Previousdosage was 5 mg Tues and Thurs and 2.5 mg on Wed and Lovenox. Last date of dose change: 08/02/24. Previous INR (date and result): 1.4 on 08/02/24 Additional Clinical Information or narrative: Yes, Patient reports most recent medication changes in June: Cephalexin 250 mg daily for UTI prevention from urology. Vitamin C 250 mg daily. D-Mannose 2,00 0-500 mg daily. [facility]09-27-2024 Telephone encounter Note* Telephone Encounter - Sharmila Norwood LPN - 08/02/2024 3:28 PM EDT left message per patient request since she is currently driving right now and not able to write down instructions. Sharmila Norwood LPN [facility]09-27-2024 Miscellaneous Notes* Telephone Encounter - Sharmila Norwood LPN - 08/02/2024 3:28 PM EDT left message per patient request since she is currently driving right now and not able to write down instructions. Sharmila Norwood LPN * Telephone Encounter - Sharmila Norwood LPN - 08/02/2024 1:06 PM EDT Left message to call back and speak with triage nurse. Sharmila Norwood LPN * Telephone Encounter - Rangel Bonilla MD - 08/02/2024 12:44 PM EDT Advise patient to take 5 mg of coumadin today, Sat and Sun. Needs INR 08/05/2024. Patient is to stay on the lovenox. * Telephone Encounter - Sharmila Norwood LPN - 08/02/2024 11:11 AM EDT Patient returns call with information as below: [...] daily. Whit Pal RN documented in this encounterLouis Stokes [facility]09-27-2024 Telephone encounter Note * Telephone Encounter - Sharmila Norwood LPN - 08/02/2024 1:06 PM EDT Left message to call back and speak with triage nurse. Sharmila Norwood LPN [facility]09-27-2024 Telephone encounter Note* Telephone Encounter - Rangel Bonilla MD - 08/02/2024 12:44 PM EDT Advise patient to take 5 mg of coumadin today, Sat and Sun. Needs INR 08/05/2024. Patient is to stay on the lovenox. [facility]09-27-2024 Telephone encounter Note* Telephone Encounter - Sharmila Norwood LPN - 08/02/2024 11:11 AM EDT Patient returns call with information as below: [...] 2,00 0-500 mg daily. Whit Pal RN [facility]09-25-2024 Telephone encounter Note* Telephone Encounter - Madison Vazquez MA - 07/31/2024 6:36 PM EDT Patient notified and voiced understanding. Madison Vazquez MA [facility]09-25-2024 Miscellaneous Notes* Telephone Encounter - Madison Vazquez MA - 07/31/2024 6:36 PM EDT Patient notified and voiced understanding. Madison Vazquez MA * Telephone Encounter - Rangel Bonilla MD - 07/31/2024 5:27 PM EDT Let patient know she can not stop the Lovenox until her INR is therapeutic for 2 days in a row. That means an INR between 2-3. * Telephone Encounter - Whit Pal RN - 07/31/2024 1:00 PM EDT Patient calls to verify that she should still be taking Lovenox injections. Per previous TE, patient should be taking Lovenox injections. Patient informed. Patient reports she doesn't think that is correct because her son told her that at this point she shouldn't be on Lovenox injections. Requests provider review. Please review and advise, Whit Pal RN documented in this encounterLouis Stokes [facility]09-25-2024 Telephone encounter Note * Telephone Encounter - Rangel Bonilla MD - 07/31/2024 5:27 PM EDT Let patient know she can not stop the Lovenox until her INR is therapeutic for 2 days in a row. That means an INR between 2-3. [facility]09-25-2024 Telephone encounter Note* Telephone Encounter - Whit Pal RN - 07/31/2024 1:00 PM EDT Patient calls to verify that she should still be taking Lovenox injections. Per previous TE, patient should be taking Lovenox injections. Patient informed. Patient reports she doesn't think that is correct because her son told her that at this point she shouldn't be on Lovenox injections. Requests provider review. Please review and advise, Whit Pal RN [facility]09-24-2024 Telephone encounter Note* Telephone Encounter - Madison Vazquez MA - 07/30/2024 4:08 PM EDT Updated Anti tracker. Madison Vazquez MA [facility]09-24-2024 Miscellaneous Notes* Telephone Encounter - Madison Vazquez MA - 07/30/2024 4:08 PM EDT Updated Anti tracker. Madison Vazquez MA * Telephone Encounter - Rylie Kaur RN - 07/30/2024 4:02 PM EDT Patient notified of provider's instructions. Patient verbalizes understanding. Patient will run over to lab at lunch break at noon to get INR done. Patient can't come in am due to school. Rylie Kaur RN * Telephone Encounter - Madison Vazquez MA - 07/30/2024 1:10 PM EDT Left message for patient to contact office. Madison Vazquez MA * Telephone Encounter - Rangel Bonilla MD - 07/30/2024 12:50 PM EDT Have patient take 5 mg today, 2.5 mg Mon, 5 mg and get INR Monday. * Telephone Encounter - Sussy Gann MA - 07/30/2024 11:56 AM EDT Last INR: INR 1.5 07/29/2024 Current dose of coumadin is: 2.5 mg daily and Lovenox. Last date of dose change: 07/25/24. Previous INR (date and result): 07/25/24 INR: 1.5 Additional Clinical Information or narrative: no documented in this encounterLouis [facility] Telephone encounter Note * Telephone Encounter - Rylie Kaur RN - 07/30/2024 4:02 PM EDT Patient notified of provider's instructions. Patient verbalizes understanding. Patient will run over to lab at lunch break at noon to get INR done. Patient can't come in am due to school. Rylie Kaur RN [facility]09-24-2024 Telephone encounter Note* Telephone Encounter - Madison Vazquez MA - 07/30/2024 1:10 PM EDT Left message for patient to contact office. Madison Vazquez MA [facility]09-24-2024 Telephone encounter Note* Telephone Encounter - Rangel Bonilla MD - 07/30/2024 12:50 PM EDT Have patient take 5 mg today, 2.5 mg Mon, 5 mg and get INR Monday. [facility]09-[facility] Telephone encounter Note* Telephone Encounter - Sussy Gann MA - 07/30/2024 11:56 AM EDT Last INR: INR 1.5 07/29/2024 Current dose of coumadin is: 2.5 mg daily and Lovenox. Last date of dose change: 07/25/24. Previous INR (date and result): 07/25/24 INR: 1.5 Additional Clinical Information or narrative: no [facility]09-19-20[facility] Telephone encounter Note* Telephone Encounter - Sharona Farley LPN - 07/25/2024 4:21 PM EDT Patient calling back she had taken a [...] plans to go to [facility] lab. [facility] Miscellaneous Notes* Telephone Encounter - Sharona Farley LPN - 07/25/2024 4:21 PM EDT Patient calling back she had taken a [...] plans to go to specialty center lab. * Telephone Encounter - Sharona Farley LPN - 07/25/2024 2:27 PM EDT Patient returned call and went over coumadin instructions from Rayna MOROCHO today 5 mg and tomorrow 5 mg and then resume 2.5 mg daily recheck INR on next week and continue the Lovenoxwith understanding. Tracker started, needs patient goal inserted * Telephone Encounter - Clarita Neely LPN - 07/25/2024 2:23 PM EDT Left detailed message of instructions on pt's home answering machine and vm. Advised pt to call back to confirm message was received. Advised pt she could schedule with coumadin clinic for her appointment on if she would like to do this instead of going to the lab. If agreeable please schedule as new pt with coumadin clinic. Clarita Neely LPN * Telephone Encounter - Rayna Martinez PA-C - 07/25/2024 1:37 PM EDT Have patient take 5mg today and 5mg tomorrow. Then return to 2.5mg daily. Recheck INR on next week. Cont Lovenox. (Instructions Per dr. Bonilla) Rayna Martinez PA-C * Telephone Encounter - Clarita Neely LPN - 07/25/2024 12:[address] nurse spoke with Perla in coumadin clinic for recommendation on coumadin dosing. Continue Lovenox injections until inr recheck and instructions from provider.. Take coumadin 7.5 mg today and 5 mg all other days and recheck INR on Mon. Can set up as new pt with coumadin clinic if ptis willing. Please advise if you are agreeable with this then will call pt with instructions. Clarita Neely LPN * Telephone Encounter - Clarita Neely LPN - 07/25/2024 12:45 PM EDT Last INR: INR 1.5 07/23/2024 Current dose [...] blood draw to check the INR at [facility]. Plan will be to go to taking 1/2 of a 5 mg tab starting that day. documented in this encounterLouis [facility] Center09-19-2024 Telephone encounter Note * Telephone Encounter - Sharona Farley LPN - 07/25/2024 2:27 PM EDT Patient returned call and went over coumadin instructions from Rayna MOROCHO today 5 mg and tomorrow 5 mg and then resume 2.5 mg daily recheck INR on next week and continue the Lovenoxwith understanding. Tracker started, needs patient goal inserted [facility]09-19-2024 Telephone encounter Note* Telephone Encounter - Clarita Neely LPN - 07/25/2024 2:23 PM EDT Left detailed message of instructions on pt's home answering machine and vm. Advised pt to call back to confirm message was received. Advised pt she could schedule with coumadin clinic for her appointment on if she would like to do this instead of going to the lab. If agreeable please schedule as new pt with coumadin clinic. Clarita Neely LPN [facility]-19-20[facility] Telephone encounter Note* Telephone Encounter - Rayna Martinez PA-C - 07/25/2024 1:37 PM EDT Have patient take 5mg today and 5mg tomorrow. Then return to 2.5mg daily. Recheck INR on next week. Cont Lovenox. (Instructions Per dr. Bonilla) Rayna Martinez PA-C [facility] Work Phone: 1(101) 507-585909-19-2024 Telephone encounter Note* Telephone Encounter - Clarita Neely LPN - 07/25/2024 12:[address] spoke with Perla in coumadin clinic for recommendation on coumadin dosing. Continue Lovenox injections until inr recheck and instructions from provider.. Take coumadin 7.5 mg today and 5 mg all other days and recheck INR on Mon. Can set up as new pt with coumadin clinic if ptis willing. Please advise if you are agreeable with this then will call pt with instructions. Clarita Neely LPN [facility]09-19-2024 Telephone encounter Note* Telephone Encounter - Clarita Neely LPN - 07/25/2024 12:45 PM EDT Last INR: INR 1.5 07/23/2024 Current dose [...] blood draw to check the INR at [facility]. Plan will be to go to taking 1/2 of a 5 mg tab starting that day. [facility]20[facility] History of Present illness Narrative* Cabrera Landeros MD - 07/22/2024 3:15 PM EDT Images from the original note were not included. . [facility] [place] Note Patient name: Gregg Ferris PCP: Rangel Bonilla MD CC: Follow-up multiple bilateral pulmonary emboli HPI: Gregg Ferris 78 year old female non-smoker with PMH significant for hiatal hernia/BE/GERD, HTN, subdural hematoma, HLD, seasonal allergies, spinal stenosis, and PE requiring supplemental oxygen. Had bilateral subsegmental pulmonary emboli without cor pulmonale discovered when she was admitted for Enterococcal UTI. She has been on Eliquis and at [facility] she was pending evaluation per hematologydue to unprovoked nature of VTE. She also had issues with constant throat clearing in face of significant dysphagia, reflux and BE (pending possible ablation). Low dose ICS started by battery service technician. Ordered PFT and Ming which were normal. [...] inhibitor on her own accord due to herGI issues with nausea. From a pulmonary standpoint she denies any significant shortness of breath, chest pain, cough or sputum production. Self monitored SpO2 above 90%. She has been wearing her oxygen at night. 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 Duarte at [facility]. 08/18/[address] Fischer at [facility] Chronic throat clearing 02/01/2018 Ectopic gastric mucosa of multiple sites 05/06/[address] Granado 04/2022 Elevated fasting blood sugar 08/14/2018 Encounter for gynecological examination without abnormal finding 07/20/2016 Sees [facility]. Essential hypertension 07/20/2016 GERD without esophagitis 01/14/2008 [...] (Son) Lumbago 03/21/[address] Duarte at [facility]. Medicare annual wellness visit, subsequent 08/14/2018 Medicare Part B: 06/06/2008 last done: 08/23/2019 Migraine without aura and without status migrainosus, not intractable 07/20/2016 Mixed hyperlipidemia 01/14/2008 Postmenopausal atrophic vaginitis 06/06/2012 Pulmonary nodules 10/03/201609/2016, follow uo CT in a year, 08/[address] Zheng Right thyroid nodule 10/03/2016 Had benign biopsy 09/2016 at [facility] Seasonal allergies 07/20/2016 Sinus arrhythmia Spinal stenosis, lumbar region, without neurogenic claudication 03/21/2012 ALLERGIES Allergen Reactions Willis Inhibitors Cough Carafate [Sucralfat* Diarrhea Eliquis [Apixaban] Other: See Comments Nausea, decreased appetite and chills Protonix [Pantopraz* Other: See Comments Stomach pain warfarin (COUMADIN) 5 mg tablet Take one tab tab a day for three days starting Monday07/20/2024. OnT07/23/2024 start taking 1/2 a tab daily. enoxaparin [...] of Onset Coronary Artery Disease Mother Fatal [place] in her 80s Diabetes Father ADULT ONSET [...] see if supplemental oxygen can be discontinued Cabrera Landeros MD [facility] [place] documented in this encounterLouis [facility]09-12-2024 Instructions* Patient Instructions* Rangel Bonilla MD - 07/18/2024 12:25 PM [...] blood draw to check the INR at [facility]. Plan will be to go to taking 1/2 of a 5 mg tab starting that day. documented in this encounterLouis [facility]09-12-2024 History of Present illness Narrative* Rangel Bonilla MD - 07/18/2024 11:20 AM EDT Chief Complaint No chief complaint on file. HPI Gregg Ferris is a 78 year old female who presents here today for follow up on nausea. Patient has been having flu like symptoms since 04/09. She reports lack of energy, lack of appetiteand body aches. Patient wants to D/C her [...] back pain Comment: Sees Dr. Duarte at [facility]. 08/18/[address] Fischer at [facility] 02/01/2018: Chronic throat clearing 05/06/2022: Ectopic gastric mucosa of multiple sites Comment: Esophagus seeing Dr. Granado 04/202208/14/2018: Elevated fasting blood sugar 07/20/2016: Encounter for gynecological examination without abnormal finding Comment: Sees [facility]. 07/20/2016: Essential hypertension 01/14/2008: GERD without [...] 03/21/2012: Lumbago Comment: Sees Dr. Duarte at [facility]. 08/14/2018: Medicare annual wellness visit, subsequent Comment: Medicare Part B: 06/06/2008 last done: 08/23/2019 07/20/2016: Migraine without aura and without status migrainosus, not intractable 01/14/2008: Mixed hyperlipidemia 06/06/2012: Postmenopausal atrophic vaginitis 10/03/2016: Pulmonary nodules Comment: 09/2016, follow uo CT in a year, 08/[address] Zheng 10/03/2016: Right thyroid nodule Comment: Had benign biopsy 09/2016 at [facility] 07/20/2016: Seasonal allergies 03/21/2012: Spinal stenosis, [...] TEST Comment: negative No date: HEMORRHOIDECTOMY XTRNL / COLUMN/GROUP 2002: LAPAROSCOPY SURG CHOLECYSTECTOMY Comment: Cholecystectomy, lap 1995: PAST SURGICAL HISTORY OF Comment: bladder suspension 2003: PAST SURGICAL HISTORY OF Comment: TVT and subsquent collagen injection 02/2012: PAST SURGICAL HISTORY OF Comment: back surgery for spinal stenosis 07/2016: PAST SURGICAL HISTORY OF Comment: had lumbar hardware removed, cleaned up DDD lumbar spine 1999: PAST SURGICAL HISTORY OF Comment: Hematoma head 12/2022: PAST SURGICAL HISTORY OF Comment: esophageal ablation 10/29/2019: STRESS ECHO Comment: norml 1999: SUBTEMPORAL CRANIAL DECOMPRESSION 1987: TOTAL ABDOMINAL HYSTERECT W/WO RMVL TUBE OVARY Comment: Hysterectomy, FUAD/BSO No date: VAGINAL HYSTERECTOMY Family History FAMILY HISTORY Problem Relation Age of Onset Coronary Artery Disease Mother Fatal [place] in her 80s Diabetes Father ADULT ONSET [...] capsule Take 100 mg by mouth daily atbedtime. phenazopyridine (PYRIDIUM) 100 mg tablet Take 1 [...] done Anxiety Screening Never done Covid-19 Vaccine( - season) due on 07/07/2024 Influenza Vaccine(1) due [...] which included preparing to see the patient, [id number] patient care, completing clinical documentation, performing a medically appropriate examination, counseling and educating the patient/family/caregiver and ordering medications, tests, or procedures. Rangel Bonilla MD documented in this encounterLouis Stokes [facility]09-10-2024 Telephone encounter Note * Telephone Encounter - Whit Pal RN - 07/16/2024 2:34 PM EDT Scheduled with Dr. Bonilla to discuss. Whit Pal RN [facility]09-10-2024 Miscellaneous Notes* Telephone Encounter - Whit Pal RN - 07/16/2024 2:34 PM EDT Scheduled with Dr. Bonilla to discuss. Whit Pal RN * Telephone Encounter - Lorri Clark DO - 07/16/2024 12:05 PM EDT I recommend she get in touch with PCP's team about her symptoms. Perhaps she needs evaluated to be sure nothing else causing them. In the meantime, she can be changed to Coumadin which can be managedby Dr. Bonilla's team. Lorri Clark DO Spoke with pt. Given Dr. lCark instruction, informed she needs to reach out to her PCP for further instruction. informed ,she can be changed to Coumadin which can be managed by Dr. Bonilla's team. Kayla Taylor LPN * Telephone Encounter - Kayla Taylor LPN - 07/16/2024 11:20 AM EDT Pt. Believes she is having side effects [...] she could be on. Kayla Taylor LPN documented in this encounterLouis Stokes [facility] Center09-10-2024 Telephone encounter Note * Telephone Encounter - Whit Pal RN - 07/16/2024 2:33 PM EDT Rescheduled with Dr. Bonilla for 1120 am on 07/18/2024. Patient will continue Eliquis until then. Whit Pal RN [facility]09-10-2024 Miscellaneous Notes* Telephone Encounter - Whit Pal RN - 07/16/2024 2:33 PM EDT Rescheduled with Dr. Bonilla for 1120 am on 07/18/2024. Patient will continue Eliquis until then. Whit Pal RN * Telephone Encounter - Whit Pal RN - 07/16/2024 12:46 PM EDT Patient calls to review symptoms (nausea, cold chills, shivers, reduced appetite). Nurse triage completed. Protocol recommends see provider within 3 days. Patient is requesting an answer today about medication and switching to an alternative anticoagulation. Scheduled for this afternoon with the understanding that provider would review symptoms but I was not able to give an exactanswer of medication changes. Spoke to provider and will review. Reason for Disposition Nausea lasts > 1 week Answer Assessment - Initial Assessment Questions 1. NAUSEA SEVERITY: - MODERATE: decreased oral intake without significant weight loss, dehydration,or malnutrition 2. ONSET:April 09 3. VOMITING:No 4. RECURRENT SYMPTOM: On-going since April 09. CAUSE: Patient believes it is due to the Eliquis. She reports that symptoms started when she started taking the Eliquis. She reports that they have continued to worsen. It started with nausea and has continued with cold chills, shivers, and reduced appetite. Patient reports that it feels like anextended case of the flu. Patient is wanting an answer on Eliquis today. Protocols used: [id number] documented in this encounterLouis Stokes Cleveland [facility] Center09-10-2024 Telephone encounter Note * Telephone Encounter - Whit Pal RN - 07/16/2024 12:46 PM EDT Patient calls to review symptoms (nausea, cold chills, shivers, reduced appetite). Nurse triage completed. Protocol recommends see provider within 3 days. Patient is requesting an answer today about medication and switching to an alternative anticoagulation. Scheduled for this afternoon with the understanding that provider would review symptoms but I was not able to give an exactanswer of medication changes. Spoke to provider and will review. Reason for Disposition Nausea lasts > 1 week Answer Assessment - Initial Assessment Questions 1. NAUSEA SEVERITY: - MODERATE: decreased oral intake without significant weight loss, dehydration,or malnutrition 2. ONSET:April 09. VOMITING:No 4. RECURRENT SYMPTOM: On-going since April 09. CAUSE: Patient believes it is due to the Eliquis. She reports that symptoms started when she started taking the Eliquis. She reports that they have continued to worsen. It started with nausea and has continued with cold chills, shivers, and reduced appetite. Patient reports that it feels like anextended case of the flu. Patient is wanting an answer on Eliquis today. Protocols used: [id number] [facility]09-10-2024 Telephone encounter Note* Telephone Encounter - Lorri Clark DO - 07/16/2024 12:05 PM EDT I recommend she get in touch with PCP's team about her symptoms. Perhaps she needs evaluated to be sure nothing else causing them. In the meantime, she can be changed to Coumadin which can be managedby Dr. Bonilla's team. Lorri Clark DO Spoke with pt. Given Dr. Clark instruction, informed she needs to reach out to her PCP for further instruction. informed ,she can be changed to Coumadin which can be managed by Dr. Bonilla's team. Kayla Taylor LPN [facility] Work Phone: 1(930) 996-568009-10-2024 Telephone encounter Note* Telephone Encounter - Kayla Taylor LPN - 07/16/2024 11:20 AM EDT Pt. Believes she is having side effects [...] she could be on. Kayla Taylor LPN [facility]09-10-2024 Telephone encounter Note* Telephone Encounter - Sayda Russell LPN - 07/16/2024 11:15 AM EDT Patient with flu like sx since 04/09. Offered to transfer patient to Dr. Clark's office. Discussed with Alethea, and transferred patient. Sayda Russell LPN [facility]09-10-2024 Miscellaneous Notes* Telephone Encounter - Sayda Russell LPN - 07/16/2024 11:15 AM EDT Patient with flu like sx since 04/09. Offered to transfer patient to Dr. Clark's office. Discussed with Alethea, and transferred patient. Sayda Russell LPN * Telephone Encounter - Eden Bermeo MA - 07/16/2024 8:52 AM EDT Patient phones to reports flu like symptoms while taking eliquis. Patient reports lack of energy, lack of appetite and body aches. She is scheduled to see Dr Landeros on Monday but does not feel she canwait. Patient requested to dc medication, this caregiver informed her she is not to dc medication without provider approval. Eden Bermeo MA documented in this encounterLouis Stokes [facility] Center09-10-2024 Telephone encounter Note * Telephone Encounter - Eden Bermeo MA - 07/16/2024 8:52 AM EDT Patient phones to reports flu like symptoms while taking eliquis. Patient reports lack of energy, lack of appetite and body aches. She is scheduled to see Dr Landeros on Monday but does not feel she canwait. Patient requested to dc medication, this caregiver informed her she is not to dc medication without provider approval. Eden Bermeo MA [facility]09-06-2024 History of Present illness Narrative* Madison Vazquez MA - 07/12/2024 10:27 AM EDT Scan on 07/02/2024 10:25 AM by Provider, PILAR Hernandez: Consultation - CINTHYA Vazquez MA documented in this encounterLouis Stokes Cleveland [facility] Center08-23-2024 Telephone encounter Note * Telephone Encounter - Sharona Farley LPN - 06/28/2024 9:07 AM EDT The patient has been identified by name [...] tablet by mouth two times a day. Sharona Farley LPN June 28, 2024 9:07 AM [facility]08-23-2024 Miscellaneous Notes* Telephone Encounter - Sharona Farley LPN - 06/28/2024 9:07 AM EDT The patient has been identified by name [...] tablet by mouth two times a day. Sharona Farley LPN June 28, 2024 9:07 AM documented in this encounterLouis Stokes Cleveland [facility] Center08-19-2024 History of Present illness Narrative* Clarita Neely LPN - 06/24/2024 7:10 AM EDT Scan on 06/23/2024 12:30 PM by Provider, PILAR Hernandez: Ultrasound documented in this encounterLouis Stokes [facility] Center08-07-2024 Telephone encounter Note * Telephone Encounter - Simin Denney - 06/12/2024 10:02 AM EDT Message relayed to patient. She states she will call to schedule appointments on her own [facility] Work Phone: 1(702) 818-141008-07-2024 Miscellaneous Notes* Telephone Encounter - Simin Denney - 06/12/2024 10:02 AM EDT Message relayed to patient. She states she will call to schedule appointments on her own * Telephone Encounter - Carola Jiang LPN - 06/12/2024 9:45 AM EDT Message left for patient to contact office. Carola Jiang LPN * Telephone Encounter - Carola Jiang LPN - 06/12/2024 8:48 AM EDT Please file orders. Carola Jiang LPN * Telephone Encounter - Lorri Clark DO - 06/11/2024 5:08 PM EDT Can let her know the repeat mammogram and ultrasounds suggested benign findings in both breasts butthe radiologist recommended a 6-month follow-up to assure stability. Please pend order for bilateral diagnostic mammogram as well as ultrasound left breast with axillary views to be scheduled in about 6 months. documented in this encounterLouis Stokes [facility] Center08-07-2024 Telephone encounter Note * Telephone Encounter - Carola Jiang LPN - 06/12/2024 9:45 AM EDT Message left for patient to contact office. Carola Jiang LPN [facility]08-07-2024 Telephone encounter Note* Telephone Encounter - Carola Jiang LPN - 06/12/2024 8:48 AM EDT Please file orders. Carola Jiang LPN [facility]08-06-2024 Telephone encounter Note* Telephone Encounter - Lorri Clark DO - 06/11/2024 5:08 PM EDT Can let her know the repeat mammogram and ultrasounds suggested benign findings in both breasts butthe radiologist recommended a 6-month follow-up to assure stability. Please pend order for bilateral diagnostic mammogram as well as ultrasound left breast with axillary views to be scheduled in about 6 months. [facility] Work Phone: 1(624) 665-448308-06-2024 History of Present illness Narrative* Katelin Funez RDMS - 06/11/2024 8:30 AM EDT Radiology Service Progress Note PATIENT NAME: Gregg Ferris DATE OF SERVICE: June 11, 2024 TIME: 3:48 PM PATIENT IDENTITY VERIFICATION COMPLETED USING TWO (2) IDENTIFIERS: Name and Date of confirmedby patient verbally. FALL SCREENING: Has the patient had 2 falls in the last year or 1 fall with injury or currently using an Ambulatory Assistive Device (Walker, Cane, Wheelchair, Crutches, etc.)? No PATIENT GENDER DATA: Female. status: : No status: NO. PATIENT RELEVANT IMPLANT DATA REVIEWED: Not Applicable PATIENT PRESENTS WITH AN IMPLANTABLE OR ATTACHED KENNEL STAFF MEMBER: No RADIOLOGY DEPARTMENT: Ultrasound PERIPHERAL IV DATA: Not applicable SIGNED BY: Katelin Funez RDMS RVT June 11, 2024 3:48 PM documented in this encounterLouis Stokes Cleveland [facility] Center08-06-2024 History of Present illness Narrative* Alondra Holder Mammo Tech - 06/11/2024 8:00 AM EDT Radiology Service Progress Note PATIENT NAME: Gregg Ferris DATE OF SERVICE: June 11, 2024 TIME: 8:52 AM PATIENT IDENTITY VERIFICATION COMPLETED USING TWO (2) IDENTIFIERS: Name and Date of confirmedby patient verbally. FALL SCREENING: Has the patient had 2 falls in the last year or 1 fall with injury or currently using an Ambulatory Assistive Device (Walker, Cane, Wheelchair, Crutches, etc.)? No PATIENT GENDER DATA: Female. status: : No status: NO. PATIENT RELEVANT IMPLANT DATA REVIEWED: Not Applicable PATIENT PRESENTS WITH AN IMPLANTABLE OR ATTACHED KENNEL STAFF MEMBER: No RADIOLOGY DEPARTMENT: Mammography PERIPHERAL IV DATA: Not applicable SIGNED BY: Alondra Holder Mammo Jennifer June 11, 2024 8:52 AM documented in this encounterLouis Stokes Cleveland [facility] Center08-05-2024 History of Present illness Narrative* Madison Vazquez MA - 06/10/2024 3:07 PM EDT Scan on 06/10/2024 1:53 PM by Provider, DENVER HernandezC: Consultation - CINTHYA Vazquez MA documented in this encounterLouis Stokes [facility]08-05-2024 Telephone encounter Note * Telephone Encounter - Rylie Arita - 06/10/2024 11:36 AM EDT Correct/updated orders linked. Rylie Arita [facility] [facility]08-05-2024 Miscellaneous Notes* Telephone Encounter - Rylie Arita - 06/10/2024 11:36 AM EDT Correct/updated orders linked. Rylie Arita * Telephone Encounter - Carola Jiang LPN - 06/10/2024 9:58 AM EDT Please file new orders. Carola Jiang LPN * Telephone Encounter - Roxanna Moore Mammo Tech - 06/10/2024 9:40 AM EDT Please file order for bilateral diagnostic mammogram with correct diagnosis. This is a call back jenny for abnormal mammogram. This is not a screening. Screening diagnosis should be removed. Thank you. documented in this encounterLouis [facility] Telephone encounter Note * Telephone Encounter - Carola Jiang LPN - 06/10/2024 9:58 AM EDT Please file new orders. Carola Jiang LPN [facility]08-05-2024 Telephone encounter Note* Telephone Encounter - Roxanna Moore Mohito Tech - 06/10/2024 9:40 AM EDT Please file order for bilateral diagnostic mammogram with correct diagnosis. This is a call back jenny for abnormal mammogram. This is not a screening. Screening diagnosis should be removed. Thank you. [facility]08-05-2024 Telephone encounter Note* Telephone Encounter - Rylie Arita - 06/10/2024 9:00 AM EDT Patient is already scheduled for tomorrow. Orders linked to existing appointment. Rylie Arita [facility]08-05-2024 Miscellaneous Notes* Telephone Encounter - Rylie Arita - 06/10/2024 9:00 AM EDT Patient is already scheduled for tomorrow. Orders linked to existing appointment. Rylie Arita * Telephone Encounter - Lorri Clark DO - 06/10/2024 8:37 AM EDT Thank you filed. Lorri Clark DO * Telephone Encounter - Carola Jiang LPN - 06/10/2024 8:36 AM EDT Please file orders. Carola Jiang LPN * Telephone Encounter - Lorri Clark DO - 06/10/2024 8:24 AM EDT Please pend order for bilateral diagnostic mammogram and ultrasound of both breasts including imaging of axilla on both sides. Schedule the patient for these. Lorri Clark DO * Telephone Encounter - Kayla Taylor LPN - 06/10/2024 8:13 AM EDT Pts. Last mamm done 2010 was done at [facility]. patient reports NO breast symptoms/last mamm 2010/emailing Imaging Library to digitize exams. Comparison to prior exams as well as additional views with possible ultrasound are recommended Kayla Taylor LPN * Telephone Encounter - Lorri Clark DO - 06/09/2024 1:55 PM EDT Radiology needs prior outside mammograms for comparison to recent one done here. Lorri Clark DO documented in this encounterLouis [facility] Telephone encounter Note * Telephone Encounter - Lorri Clark DO - 06/10/2024 8:37 AM EDT Thank you filed. Lorri Clark DO [facility] Work Phone: 1(456) 709-743408-05-2024 Telephone encounter Note* Telephone Encounter - Carola Jiang LPN - 06/10/2024 8:36 AM EDT Please file orders. Carola Jiang LPN [facility]08-05-2024 Telephone encounter Note* Telephone Encounter - Lorri Clark DO - 06/10/2024 8:24 AM EDT Please pend order for bilateral diagnostic mammogram and ultrasound of both breasts including imaging of axilla on both sides. Schedule the patient for these. Lorri Clark DO [facility]08-05-2024 Telephone encounter Note* Telephone Encounter - Kayla Taylor LPN - 06/10/2024 8:13 AM EDT Pts. Last mamm done 2010 was done at [facility]. patient reports NO breast symptoms/last mamm 2010/emailing Imaging Library to digitize exams. Comparison to prior exams as well as additional views with possible ultrasound are recommended Kayla Taylor LPN [facility]08-04-2024 Telephone encounter Note* Telephone Encounter - Lorri Clark DO - 06/09/2024 1:55 PM EDT Radiology needs prior outside mammograms for comparison to recent one done here. Lorri Clark DO [facility]08-02-2024 Miscellaneous Notes* Letter - Coordinator, Mammography - 06/07/2024 1:16 PM EDT June 10, 2024 PID: [id number] Gregg Ferris [address] [place] [address] Dear Ms. Ferris, Your prior imaging studies [...] who ordered/prescribed your screening mammogram: Please call [phone] or EXT: [id number] to schedule an appointment for your additional imaging (if youhave not already done so). If you DO [...] and reports are kept on file at [facility] as part of your permanent medical record, and are available for your continuing care. Thank you for allowing us to help in meeting your health care needs. Sincerely, Dr. Moore Interpreting Radiologist [facility] (compared needs [facility] imaging) documented in this encounterLouis [facility]08-02-[facility] Note* Letter - Coordinator, Mammography - 06/07/2024 1:16 PM EDT June 10, 2024 PID: [id number] Gregg Aguilera [place] [address] [place] [address] Dear Ms. Ferris, Your prior imaging studies [...] who ordered/prescribed your screening mammogram: Please call [phone] or EXT: [id number] to schedule an appointment for your additional imaging (if youhave not already done so). If you DO [...] and reports are kept on file at [facility] as part of your permanent medical record, and are available for your continuing care. Thank you for allowing us to help in meeting your health care needs. Sincerely, Dr. Moore Interpreting Radiologist [facility] (compared needs addl imaging) [facility]08-01-2024 History of Present illness Narrative* Roxanna Moore Mammo Tech - 06/06/2024 9:10 AM EDT Radiology Service Progress Note PATIENT NAME: Gregg Ferris DATE OF SERVICE: June 06, 2024 TIME: 2:19 PM PATIENT IDENTITY VERIFICATION COMPLETED USING TWO (2) IDENTIFIERS: Name and Date of confirmedby patient verbally. FALL SCREENING: Has the patient had 2 falls in the last year or 1 fall with injury or currently using an Ambulatory Assistive Device (Walker, Cane, Wheelchair, Crutches, etc.)? No PATIENT GENDER DATA: Female. status: : No status: NO. PATIENT RELEVANT IMPLANT DATA REVIEWED: Not Applicable PATIENT PRESENTS WITH AN IMPLANTABLE OR ATTACHED KENNEL STAFF MEMBER: No RADIOLOGY DEPARTMENT: Mammography PERIPHERAL IV DATA: Not applicable SIGNED BY: Vickie Fuller June 06, 2024 2:19 PM documented in this encounterLouis [facility]07-[facility]24 Telephone encounter Note * Telephone Encounter - Ana Mott MA - 05/23/2024 11:29 AM EDT Pt called and notified of results and recommendations below from Provider. Ana Mott MA [facility]07-18-2024 Miscellaneous Notes* Telephone Encounter - Ana Mott MA - 05/23/2024 11:29 AM EDT Pt called and notified of results and recommendations below from Provider. Ana Mott MA * Telephone Encounter - Rayna Martinez PA-C - 05/23/2024 11:22 AM EDT Let patient know that her A1c is normal. Cholesterol is stable. Trigs were just slightly elevated. But not concerned. Thanks. Rayna Martinez PA-C documented in this encounterLouis [facility]07-18-2024 Telephone encounter Note * Telephone Encounter - Rayna Martinez PA-C - 05/23/2024 11:22 AM EDT Let patient know that her A1c is normal. Cholesterol is stable. Trigs were just slightly elevated. But not concerned. Thanks. Rayna Martinez PA-C [facility] Work Phone: 1(990) 905-272507-17-2024 Telephone encounter Note* Telephone Encounter - Rhonda Arango LPN - 05/22/2024 4:51 PM EDT Pt notified. Rhonda Arango LPN [facility]07-17-2024 Miscellaneous Notes* Telephone Encounter - Rhonda Arango LPN - 05/22/2024 4:51 PM EDT Pt notified. Rhonda Arango LPN * Telephone Encounter - Lorri Clark DO - 05/22/2024 4:47 PM EDT Right, COVID booster okay. Lorri Clark DO * Telephone Encounter - Simin Denney - 05/22/2024 4:14 PM EDT Patient called back stating Dr. Clark told her depending on lab results, she may be able to get Covid booster. Please advise. * Telephone Encounter - Rhonda Arango LPN - 05/22/2024 2:56 PM EDT Pt notified and voices understanding. Rhonda Arango LPN * Telephone Encounter - Lorri Clark DO - 05/22/2024 2:40 PM EDT Lab testing done yesterday showed no abnormalities. Continue apixaban and follow-up as scheduled. documented in this encounterLouis [facility]07-17-2024 Telephone encounter Note * Telephone Encounter - Lorri Clark DO - 05/22/2024 4:47 PM EDT Right, COVID booster okay. Lorri Diaz. DO Amber [facility] Work Phone: 1(780) 833-189007-17-2024 Telephone encounter Note* Telephone Encounter - Alka Denneyissa - 05/22/2024 4:14 PM EDT Patient called back stating Dr. Clark told her depending on lab results, she may be able to get Covid booster. Please advise. [facility] Work Phone: 1(179) 568-649407-17-2024 Telephone encounter Note* Telephone Encounter - Rhonda Arango LPN - 05/22/2024 2:56 PM EDT Pt notified and voices understanding. Rhonda Arango LPN [facility]07-17-2024 Telephone encounter Note* Telephone Encounter - Lorri Clark DO - 05/22/2024 2:40 PM EDT Lab testing done yesterday showed no abnormalities. Continue apixaban and follow-up as scheduled. [facility]07-16-2024 Telephone encounter Note* Telephone Encounter - Rhonda Arango LPN - 05/21/2024 4:46 PM EDT Requested images. Rhonda Arango LPN [facility]07-16-2024 Miscellaneous Notes* Telephone Encounter - Rhonda Arango LPN - 05/21/2024 4:46 PM EDT Requested images. Rhonda Arango LPN * Telephone Encounter - Lorri Clark DO - 05/21/2024 4:42 PM EDT Please import CTA chest images from 04/05/2024 done at [facility] into our system as soon as able. Let me know when loaded. Lorri Clark DO documented in this encounterLouis [facility]07-16-2024 Telephone encounter Note * Telephone Encounter - Lorri Clark DO - 05/21/2024 4:42 PM EDT Please import CTA chest images from 04/05/2024 done at [facility] into our system as soon as able. Let me know when loaded. Lorri Clark DO [facility] Work Phone: 1(587) 495-419907-16-2024 History of Present illness Narrative* Lorri Clark DO - 05/21/2024 3:06 PM EDT Patient referred by Dr. Bonilla for pulmonary emboli. The impression and plan will be communicated by way of the shared electronic record or faxed under separate cover letter. HPI: The patient is an 78-year-old female with a past medical history as outlined below. Presented to the ED at [facility] on 03/24/2024 with complaints of generalized abdominal pain, multiple episodes of vomiting and diarrhea that were keeping her awake at night. 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 Was discharged home. Return to the ED several days later on 04/01. Had been seen earlier in the day at urgent care with atemperature of 100.8. Home thermometer demonstrated temperature to [...] small sliding hiatal hernia and an esophagram demonstratingbarium pill to trap the GE junction previous [...] back pain 07/20/[address] Duarte at [facility]. 08/18/[address] Fischer at [facility] Chronic throat clearing 02/01/2018 Ectopic gastric mucosa of multiple sites 05/06/[address] Granado 04/2022 Elevated fasting blood sugar 08/14/2018 Encounter for gynecological examination without abnormal finding 07/20/[address] [facility]. Essential hypertension 07/20/2016 GERD without esophagitis 01/14/2008 Hemorrhoids 03/03/2017 Hiatal hernia History of pulmonary embolus (PE) 04/08/202404/2024: 4 of them History of recurrent UTIs 07/19/2018 History of subdural hematoma 03/03/2017 After a fall Hypoxia 04/15/2024 After PE's 04/2024 Lichen sclerosus et atrophicus 03/03/2017 Living will on file at physician's office 01/16/2023 DPA: Nate (Son) Lumbago 03/21/[address] Duarte at [facility]. Medicare annual wellness visit, subsequent 08/14/2018 Medicare Part B: 06/06/2008 last done: 08/23/2019 Migraine without aura and without status migrainosus, not intractable 07/20/2016 Mixed hyperlipidemia 01/14/2008 Postmenopausal atrophic vaginitis 06/06/2012 Pulmonary nodules 10/03/201609/2016, follow uo CT in a year, 08/[address] Zheng Right thyroid nodule 10/03/2016 Had benign biopsy 09/2016 at [facility] Seasonal allergies 07/20/2016 Spinal stenosis, lumbar [...] capsule Take 100 mg by mouth daily atbedtime. phenazopyridine (PYRIDIUM) 100 mg tablet Take 1 [...] of Onset Coronary Artery Disease Mother Fatal [place] in her 80s Diabetes Father ADULT ONSET [...] dysphagia or odynophagia. No reflux, n/v, change inbowel habits. No abdominal pain, bloating or distension. [...] No jaundice or rash. No petechiae. 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 No focal motor [...] pulmonary emboli. No clear provoking factors other thanpossible UTI/viral syndrome proceeding. Did have positive testing for COVID August 2023. -Tolerating anticoagulation well. No unusual bleeding or unexplained bruising. Minimal to no respiratory symptoms of the event. -Up-to-date on age and gender appropriate cancer screening except for mammogram which she has not had in least 20 years. -Reviewed CT images from [facility]. Question right hilar adenopathy. -For now recommended 6 months of anticoagulation therapy. Also will check for anticardiolipin and antibeta 2 glycoprotein antibodies which may suggest underlying lupus anticoagulant if present. In that case Coumadin would be preferable to apixaban. Plan: -Will have CT images from [facility] uploaded and reviewed with Dr. Landeros. -Continue apixaban for now. -Check CBC as well as anticardiolipin and antibeta 2 glycoprotein antibodies. -Screening mammogram. -Office visit in about 6 months. I spent a total of 60 minutes on the date of the service which included preparing to see the patient, [id number] patient care, completing clinical documentation, obtaining and/or reviewing separately obtained history, performing a medically appropriate examination, counseling and educating the pat ient/family/caregiver, ordering medications, tests, or procedures, communicating with other HCPs (not separately reported), and communicating results to the patient/family/caregiver. Lorri Clark DO documented in this encounterLouis [facility]07-03-2024 Note* Addendum Note - Kalpana Arndt MD - 05/08/2024 9:22 AM EDTAddended by: KALPANA ARNDT on: 05/08/2024 09:22 AM Modules accepted: Orders [facility]07-03-2024 Miscellaneous Notes* Addendum Note - Kalpana Arndt MD - 05/08/2024 9:22 AM EDTAddended by: KALPANA ARNDT on: 05/08/2024 09:22 AM Modules accepted: Orders * Addendum Note - Kmi Williamson MA - 05/08/2024 9:20 AM EDTAddended by: KIM WILLIAMSON on: 05/08/2024 09:20 AM Modules accepted: Orders documented in this encounterLouis [facility]07-03-2024 Note* Addendum Note - Kim Williamson MA - 05/08/2024 9:20 AM EDTAddended by: KIM WILLIAMSON on: 05/08/2024 09:20 AM Modules accepted: Orders [facility]07-03-2024 History of Present illness Narrative* Clarita Neely LPN - 05/08/2024 9:11 AM EDT Scan on 05/08/2024 8:11 AM by Provider, PILAR Hernandez: Microbiology documented in this encounterLouis [facility]07-03-2024 History of Present illness Narrative* Kalpana Arndt MD - 05/08/2024 8:04 AM EDT Manager Intensive Care offered: Patient accepts, visit chaperoned by Sharmila Collado LPN. Gregg Ferris is a 78 year old female [...] pulmonary emboli and has been started on eliquis. 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 Duarte at [facility]. 08/18/[address] Fischer at [facility] Chronic throat clearing 02/01/2018 Ectopic gastric mucosa of multiple sites 05/06/[address] Granado 04/2022 Elevated fasting blood sugar 08/14/2018 Encounter for gynecological examination without abnormal finding 07/20/[address] [facility]. Essential hypertension 07/20/2016 GERD without esophagitis 01/14/2008 Hemorrhoids 03/03/2017 Hiatal hernia History of pulmonary embolus (PE) 04/08/202404/2024: 4 of them History of recurrent UTIs 07/19/2018 History of subdural hematoma 03/03/2017 After a fall Hypoxia 04/15/2024 After PE's 04/2024 Lichen sclerosus et atrophicus 03/03/2017 Living will on file at physician's office 01/16/2023 DPA: Nate (Son) Lumbago 03/21/[address] Duarte at [facility]. Medicare annual wellness visit, subsequent 08/14/2018 Medicare Part B: 06/06/2008 last done: 08/23/2019 Migraine without aura and without status migrainosus, not intractable 07/20/2016 Mixed hyperlipidemia 01/14/2008 Postmenopausal atrophic vaginitis 06/06/2012 Pulmonary nodules 10/03/201609/2016, follow uo CT in a year, 08/[address] Zheng Right thyroid nodule 10/03/2016 Had benign biopsy 09/2016 at [facility] Seasonal allergies 07/20/2016 Spinal stenosis, lumbar [...] of Onset Coronary Artery Disease Mother Fatal [place] in her 80s Diabetes Father ADULT ONSET [...] external genitalia normal, normal Bartholin's glands, urethra, Hedrick's glands, no vulvar lesions, good vaginal support, physiologic discharge present, normal appearing perineal body and perianal region, well estrogenized, cervix surgically absent BIMANUAL: no adnexal masses and uterus surgically absent ASSESSMENT AND PLAN: Postmenopausal Recurrent UTIs refractory to multiple treatments Current UTI on Cipro pending culture No evidence for evaluation Mycoplasma/Ureaplasma, vaginal and urine cultures pending RTO 3-4 weeks ftft including communication with claudette son > 50 mi Kalpana Arndt MD documented in this encounterLouis [facility]07-02-2024 History of Present illness Narrative* Lupe Grijalva RN - 05/07/2024 12:14 PM EDT TRANSITION CARE MANAGEMENT (TCM) FOLLOW-UP NOTE Provider Action/JIMI Tcm Follow - Up Day 28 Future Appts 05/21 Jose [facility] 08/07 Famp [facility] Patient identified by name and date of : YES Spoke to patient Discharge Network Status: Otl-hz-Ozazzve (OON) Discharge Summary: Pt discharged from [facility], on 04/09/24. Admitted for: Fevers JENNY PE UTI, Weakness,Tacycardic,, O2 2 LNC, LDVT Concerns: Patient states is feeling better,have recurrent UTI's, burning and a little blood, taking a red pill and it resolved the burning, started 05/06/24,called Urologist yesterday, order placed for urine test, waiting on results, and also for Urologist to call her concerning what antibiotics to prescribed,Eliquis was causing nausea, on Zofran is better non Pox 94 %, sleeping with O2, 2L, QHS Using both of her Pickle Cough dry Denies pain,sob, wheezing, fever/chills, vomiting Appetite good eating and hydrating Voiding urine, orange with the pills, BM ]05/07 Ambulating up ad maryellen, went for walk this am Fatigue denies Denies questions, concerns regarding medications, self care , no issues, 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 States she will call Dr. Etienne's office. Benita Grossman RN [place] [address]-01-2024 Miscellaneous Notes* Telephone Encounter - Benita Grossman RN - 05/06/2024 2:06 PM EDT Pt notified. States she will call Dr. Etienne's office. Benita Grossman RN * Telephone Encounter - Susi Petit MD - 05/06/2024 1:46 PM EDT No, will not do any orders without her being seen. She can go to urgent care otherwise. * Telephone Encounter - Dhara Prado RN - 05/06/2024 1:33 PM EDT Patient calling back in thinking maybe she has a UTI instead. She is having urinary frequency now too. Asking if orders can be placed for her to leave a specimen? Last saw RR 07/2018 and she is currently scheduled with AT 05/08. Dhara Prado RN * Telephone Encounter - Dhara Prado RN - 05/06/2024 1:07 PM EDT Patient notified. Dhara Prado RN * Telephone Encounter - Nikki Benites MD - 05/06/2024 12:37 PM EDT Recommend cold packs and ok to take tylenol 1000 mg tid for pain until follow up. Would be ok to put on skin protectant such as Aquaphor as well prn. Nikki Benites MD * Telephone Encounter - Eden Headley RN - 05/06/2024 12:05 PM EDT Patient has appointment with AT on Monday for vaginal irritation. Denies vaginal odor or discharge. Her pain is a 5 out of 10. Asking what she can have something more than Tylenol for pain. Unableto take NSAID because she's on Eliquis. She took 500 MG of Tylenol at 8:00 AM. Advised that she could try 1,000 MG for her next dose. Patient asking if it's ok to take another one now. Eden Headley RN documented in this encounterLouis [facility]07-01-2024 Telephone encounter Note * Telephone Encounter - Susi Petit MD - 05/06/2024 1:46 PM EDT No, will not do any orders without her being seen. She can go to urgent care otherwise. [facility] Work Phone: 1(987) 980-419207-01-2024 Telephone encounter Note* Telephone Encounter - Dhara Prado RN - 05/06/2024 1:33 PM EDT Patient calling back in thinking maybe she has a UTI instead. She is having urinary frequency now too. Asking if orders can be placed for her to leave a specimen? Last saw RR 07/2018 and she is currently scheduled with AT 05/08. Dhara Prado RN [facility]07-01-2024 Telephone encounter Note* Telephone Encounter - Dhara Prado RN - 05/06/2024 1:07 PM EDT Patient notified. Dhara Prado RN [facility]07-01-2024 Telephone encounter Note* Telephone Encounter - Nikki Benites MD - 05/06/2024 12:37 PM EDT Recommend cold packs and ok to take tylenol 1000 mg tid for pain until follow up. Would be ok to put on skin protectant such as Aquaphor as well prn. Nikki Benites MD [facility] Work Phone: 1(994) 832-530907-01-2024 Telephone encounter Note* Telephone Encounter - Eden Headley RN - 05/06/2024 12:05 PM EDT Patient has appointment with AT on Monday for vaginal irritation. Denies vaginal odor or discharge. Her pain is a 5 out of 10. Asking what she can have something more than Tylenol for pain. Unableto take NSAID because she's on Eliquis. She took 500 MG of Tylenol at 8:00 AM. Advised that she could try 1,000 MG for her next dose. Patient asking if it's ok to take another one now. Eden Headley, RN [facility]06-26-2024 Telephone encounter Note* Telephone Encounter - Rangel Bonilla MD - 05/01/2024 8:07 PM EDT The following approved medication requests have been transmitted electronically. Requested Prescriptions Signed Prescriptions Disp Refills ondansetron orally disintegrating (ZOFRAN ODT) 4 mg disintegrating tablet 30 tablet 1 Sig: Take 1 tablet by mouth every 8 hours as needed for nausea/vomiting. Authorizing Provider: RANGEL BONILLA MD T [facility]06-26-2024 Miscellaneous Notes* Telephone Encounter - Rangel Bonilla MD - 05/01/2024 8:07 PM EDT The following approved medication requests have been transmitted electronically. Requested Prescriptions Signed Prescriptions Disp Refills ondansetron orally disintegrating (ZOFRAN ODT) 4 mg disintegrating tablet 30 tablet 1 Sig: Take 1 tablet by mouth every 8 hours as needed for nausea/vomiting. Authorizing Provider: RANGEL BONILLA MD * Telephone Encounter - Nikko Carmona RN - 05/01/2024 4:08 PM EDT Patient reports she started eliquis 3 weeks ago, and it is causing her to feel nauseous. Asking pcpto send Rx to [facility] for nausea medication. Pended. Last ov: 04-19-24 Next ov: 08-07-24 documented in this encounterLouis Stokes [facility]06-26-2024 Telephone encounter Note * Telephone Encounter - Nikko Carmona RN - 05/01/2024 4:08 PM EDT Patient reports she started eliquis 3 weeks ago, and it is causing her to feel nauseous. Asking pcpto send Rx to [facility] for nausea medication. Pended. Last ov: 04-19-24 Next ov: 08-07-24 [facility]06-[facility] Procedure note* Lana Ahuja RPFT - 04/30/2024 3:03 PM EDTAssociated Order(s): NITRIC OXIDE, EXHALED RESPIRATORY THERAPY ORAL EXHALED [...] 04/30/2024 <5.0 NAME: MICHELE Perry PATIENT NAME: Gregg Ferris DATE: April 30, 2024 TIME: 3:03 PM [facility]06-[facility] Procedure note* Lana Ahuja RPFT - 04/30/2024 3:03 PM EDTAssociated Order(s): NITRIC OXIDE, EXHALED RESPIRATORY THERAPY ORAL EXHALED [...] 04/30/2024 <5.0 NAME: MICHELE Perry PATIENT NAME: Gregg Ferris DATE: April 30, 2024 TIME: 3:03 PM documented in this encounterLouis Stokes Cleveland [facility] Center06-25-2024 History of Present illness Narrative* Lana Ahuja RPFT - 04/30/2024 3:01 PM EDT PULM FUNCTION: Provider: Cabrera Landeros MD Assisting Tech: Lana Ahuja RPFT Spirometry: 1 Exhaled Nitric Oxide: 1 documented in this encounterLouis Stokes Cleveland Va [facility] Center06-23-2024 History of Present illness Narrative* Lupe Grijalva RN - 04/28/2024 12:49 PM EDT TRANSITION CARE MANAGEMENT (TCM) FOLLOW-UP NOTE Provider Action/FYI Tcm Follow - Up Day 19 Future Appts 04/30 Pulm Lab WSTR 05/21 Jose WSTR 08/07 Famp WSTR Patient identified by name and date of : YES Spoke to patient Discharge Network Status: [id number] (OON) Discharge Summary: Pt discharged from [facility], on 04/09/24. Admitted for: Fevers JENNY PE UTI, Weakness,Tacycardic,, O2 2 LNC, LDVT Concerns: Patient states is feeling better, finished antibiotics on 04/26/24, having nausea, will route [facility] [place] RA Pox 95 % Using both of her Pickle Cough dry Denies pain,sob, wheezing, fever/chills, vomiting Appetite good eating and hydrating Voiding urine, yellow no pain or blood and bm without difficulty, BM 04/28 Ambulating up ad maryellen, walk out side today without oxygen Fatigue denies Denies questions, concerns regarding medications, self care , no issues, 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 for 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 outreach: Will follow up tcm TIAN Education Ordered -: No Lupe Grijalva RN April 28, 2024 12:49 PM documented in this encounterLouis Stokes Cleveland [facility] Center06-18-2024 History of Present illness Narrative* Lupe Grijalva, ALONDRA - 04/23/2024 2:33 PM EDT TRANSITION CARE MANAGEMENT (TCM) FOLLOW-UP NOTE Provider Moni/TONYA Tcm Follow - Up Day 14 Future Appts 04/30 Pulm Lab WSTR 05/21 Jose WSTR 08/07 Famp WSTR Patient identified by name and date of : YES Spoke to patient Discharge Network Status: Tnf-cl-Zyaxiag (OON) Discharge Summary: Pt discharged from [facility], on 04/09/24. 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 Patient verbalizes understanding. Clarita Neely LPN [facility]06-17-2024 Miscellaneous Notes* Telephone Encounter - Clarita Neely LPN - 04/22/2024 9:54 AM EDT Patient notified of results and provider's instructions. Patient verbalizes understanding. Clarita Neely LPN * Telephone Encounter - Rayna Martinez PA-C - 04/22/2024 7:52 AM EDT UTI should respond to atb given. Continue with follow up with urology. Especially if symptoms continue. documented in this encounterLouis Stokes Cleveland [facility] Center06-17-2024 Telephone encounter Note * Telephone Encounter - Rayna Martinez PA-C - 04/22/2024 7:52 AM EDT UTI should respond to atb given. Continue with follow up with urology. Especially if symptoms continue. [facility]06-[facility] History of Present illness Narrative* Rayna Martinez PA-C - 04/19/2024 1:04 PM EDT Chief Complaint Patient presents with: Urinary Problem HPI Gregg Ferris is a 78 year old female [...] back pain 07/20/[address] Duarte at [facility]. 08/18/[address] Fischer at [place] Chronic throat clearing 02/01/2018 Ectopic gastric mucosa [...] (Son) Lumbago 03/21/[address] Duarte at [facility]. Medicare annual wellness visit, subsequent 08/14/2018 Medicare Part B: 06/06/2008 last done: 08/23/2019 Migraine without aura and without status migrainosus, not intractable 07/20/2016 Mixed hyperlipidemia 01/14/2008 Postmenopausal atrophic vaginitis 06/06/2012 Pulmonary nodules 10/03/201609/2016, follow uo CT in a year, 08/[address] Zheng Right thyroid nodule 10/03/2016 Had benign biopsy 09/2016 at [facility] Seasonal allergies 07/20/2016 Spinal stenosis, lumbar [...] of Onset Coronary Artery Disease Mother Fatal [place] in her 80s Diabetes Father ADULT ONSET [...] BP Cuff Size: Regular Adult) Pulse 115 Temp37 C (98.6 F) Resp 16 Wt 61.2 [...] 60+ series) due on 01/23/2025 Covid-19 Vaccine( - 2022- season) due on 01/23/2025 BP Controlled (<130/80) [...] CULTURE Rayna Martinez PA-C documented in this encounterLouis Stokes Cleveland [facility] Center06-14-2024 Telephone encounter Note * Telephone Encounter - Rayna Martinez PA-C - 04/19/2024 12:40 PM EDT Patient being seen. [facility] Work Phone: 1(335) 446-848506-14-2024 Miscellaneous Notes* Telephone Encounter - Rayna Martinez PA-C - 04/19/2024 12:40 PM EDT Patient being seen. * Telephone Encounter - Rylie Kaur RN - 04/19/2024 9:16 AM EDT Patient calls and states that she is having urinary frequency and burning. Patient states that thisstarted yesterday afternoon. Patient asking if provider can place order to get urine checked? Patient knows that urine test from 04/15 did not show anything. Please review and advise, Rylie Kaur RN documented in this encounterLouis Stokes Cleveland [facility] Center06-14-2024 History of Present illness Narrative* Cabrera Landeros MD - 04/19/2024 11:00 AM EDT Images from the original note were not included. . [facility] [place] Note Patient name: Gregg Ferris PCP: Rangel Bonilla MD Referring Physician: Same Consultation requested by Dr. Bonilla for an opinion regarding oxygen requirement. My final recommendations will be communicated back to the requesting physician by way of shared Medical record or letter to requesting physician via US mail. CC: Oxygen requirement, pulmonary embolism HPI: Gregg Ferris 78 year old female non-smoker with PMH significant for hiatal hernia/BE/GERD, HTN, history of subdural hematoma, HLD, seasonal allergies, spinal stenosis, migraines, recent PE requiring supplemental oxygen. Previously see by Dr. Zheng back in 2018 for pulmonary nodules. Recenthistory notable for recurrent urinary tract infections. She [...] and has been evaluated by ENT. Her battery service technician recently started her on Arnuity 50 mcg,famotidine in the evening and Nexium in the [...] bilateral subsegmental pulmonary emboli, possible right lower lobepulmonary infarction with pleural effusion. ECHO [facility] 04/06/24: Left Ventricle Normal left ventricle. [...] back pain 07/20/[address] Duarte at [facility]. 08/18/[address] Fischer at [place] Chronic throat clearing 02/01/2018 Ectopic gastric mucosa of multiple sites 05/06/[address] Granado 04/2022 Elevated fasting blood sugar 08/14/2018 Encounter for gynecological examination without abnormal finding 07/20/2016 Sees [facility]. Essential hypertension 07/20/2016 GERD without esophagitis 01/14/2008 Hemorrhoids 03/03/2017 Hiatal hernia History of pulmonary embolus (PE) 04/08/202404/2024: 4 of them History of recurrent UTIs 07/19/2018 History of subdural hematoma 03/03/2017 After a fall Hypoxia 04/15/2024 After PE's 04/2024 Lichen sclerosus et atrophicus 03/03/2017 Living will on file at physician's office 01/16/2023 DPA: Nate (Son) Oscar 03/21/[address] Duarte at [facility]. Medicare annual wellness visit, subsequent 08/14/2018 Medicare Part B: 06/06/2008 last done: 08/23/2019 Migraine without aura and without status migrainosus, not intractable 07/20/2016 Mixed hyperlipidemia 01/14/2008 Postmenopausal atrophic vaginitis 06/06/2012 Pulmonary nodules 10/03/201609/2016, follow uo CT in a year, 08/[address] Zheng Right thyroid nodule 10/03/2016 Had benign biopsy 09/2016 at [facility] Seasonal allergies 07/20/2016 Spinal stenosis, lumbar [...] of Onset Coronary Artery Disease Mother Fatal [place] in her 80s Diabetes Father ADULT ONSET [...] which included preparing to see the patient, vzyt-[id number] patient care, completing clinical documentation, obtaining and/or reviewing separately obtained history, performing a medically appropriate examination, counseling and educating the pat ient/family/caregiver, ordering medications, tests, or procedures, and independently interpreting results (not separately reported). Cabrera Landeros MD [facility] [place] documented in this encounterLouis Stokes Cleveland [facility] Center06-14-2024 Telephone encounter Note * Telephone Encounter - Rylie Kaur RN - 04/19/2024 9:16 AM EDT Patient calls and states that she is having urinary frequency and burning. Patient states that thisstarted yesterday afternoon. Patient asking if provider can place order to get urine checked? Patient knows that urine test from 04/15 did not show anything. Please review and advise, Rylie Kaur, RN [facility]06-12-2024 History of Present illness Narrative* Lupe Grijalva RN - 04/17/2024 12:39 PM EDT TRANSITION CARE MANAGEMENT (TCM) FOLLOW-UP NOTE Provider Action/FYI Tcm Follow - Up Day 8 Future Appts 04/19 Pulm WSTR 05/21 Jose WSTR 08/07 Famp WSTR Patient identified by name and date of : YES Spoke to patient Discharge Network Status: Hqh-fq-Ezqlung (OON) Discharge Summary: Pt discharged from [facility], on 04/09/24. 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 Izabela Yepez LPN [facility]06-11-2024 Miscellaneous Notes* Telephone Encounter - Izabela Yepez LPN - 04/16/2024 3:03 PM EDT Pt notified of results & voiced understanding. Izabela Yepez LPN * Telephone Encounter - Rangel Bonilla MD - 04/16/2024 2:47 PM EDT Let patient know her UA and culture were negative. documented in this encounterLouis Stokes Cleveland [facility] Center06-11-2024 Telephone encounter Note * Telephone Encounter - Rangel Bonilla MD - 04/16/2024 2:47 PM EDT Let patient know her UA and culture were negative. [facility]06-10-2024 Telephone encounter Note* Telephone Encounter - Simin Denney - 04/15/2024 1:21 PM EDT Scheduled with patient [facility] Work Phone: 1(172) 944-221006-10-2024 Miscellaneous Notes* Telephone Encounter - Simin Denney - 04/15/2024 1:21 PM EDT Scheduled with patient * Telephone Encounter - Nikki Rodriguez - 04/15/2024 11:53 AM EDT Consult to Hematology from PCP. Please call to schedule. Phone number has been verified. Nikki Rodriguez documented in this encounterLouis Stokes Cleveland [facility] Center06-10-2024 Telephone encounter Note * Telephone Encounter - Nikki Rodriguez - 04/15/2024 11:53 AM EDT Consult to Hematology from PCP. Please call to schedule. Phone number has been verified. Nikki Rodriguez [facility]06-10-2024 History of Present illness Narrative* Rangel Bonilla MD - 04/15/2024 8:00 AM EDT Transitional Care Management TCM Eligibility Documentation Program: [...] this have caused the clots? Provider Documentation Gregg Ferris is a 78 year old female here today for a follow up from recent hospitalization. I have reviewed the patient's hospital course including discharge summary, discharge medications , and follow up needs with the patient and any family members present at today's visit. HPI Patient presented to [facility] ER on 04/05/2024 with persistent generalized [...] they advised her that her echo was finealong with the EKG's they did and that [...] which included preparing to see the patient, [id number] patient care, completing clinical documentation, performing a medically appropriate examination, counseling and educating the patient/family/caregiver and ordering medications, tests, or procedures. Rangel Bonilla MD documented in this encounterLouis Stokes Cleveland [facility] Center06-05-2024 History of Present illness Narrative* Madison Vazquez MA - 04/10/2024 1:38 PM EDT TRANSITION CARE MANAGEMENT (TCM) INITIAL CONTACT Transportation Solutions Manager Outreach Provider Action/FYI: Patient was admitted into the hospital on 04/05/2024 and D/C on 04/09/2024 with Bilateral PulmonaryEmboli Spoke with patient 04/10/2024 and she is currently on Elquis and has been taking as prescribed. Sheis ok on Oxygen prescribed from hospital and [...] home? Yes Medical records from recent hospitalization: [facility] Everywhere documented in this encounterLouis Stokes [facility]06-05-2024 History of Present illness Narrative* Lupe Grijalva RN - 04/10/2024 10:10 AM EDT TCM Home Visit Referral Source of Stratification: TCM [facility] Hospital Admission Status: Discharged Readmission Risk Score: n/a Patient's zip code: [address] Is zip code within program service area: [...] you Future Appts 04/15 Famp WSTR 08/07 Famp WSTR Patient states is feeling better O2 2L NC Denies pain,sob, cough ,wheezing, fever/chills, n/v Appetite good eating and hydrating Voiding urine, light yellow no pain or blood and bm without difficulty, BM 04/10/24 Ambulating up ad maryellen Fatigue denies Denies questions, concerns regarding medications, self care , no issues, stable SUMMARY: Discharge Network Status: Vvq-jl-Zjcmprq (OON) Discharge Pt discharged from [facility], on 04/09/24. Admitted for: Fevers JENNY PE UTI, Weakness,Tacycardic,, O2 2 LNC, LDVT Contact made with patient: Yes Hi my name is Lupe Grijalva RN and I am calling from the [facility] on behalf of your PCP, Rangel Bonilla [...] like to speak with a social work outreach team member to help give you support for any [...] provider to ensure you have safely transitioned home.If you are agreeable, I will send your request to a candle wicker who will contact and assist you with that appointment. This will give you an opportunity to ask any questions or address any concerns youmay have with your PCP. Inform the patient [...] unless instructed to do so. For any non- emergency symptoms, call your Doctor s office to get instructions on how to manage (we might recommend a telephone or virtualvisit). For emergency symptoms, proceed to Emergency Department as usual but inform them of cough and fever symptoms VICKI if present (or call on the way if possible). TIAN Education Ordered -: No Lupe Grijalva RN April 10, 2024 10:22 AM documented in this encounterLouis Stokes Cleveland [facility]06-03-2024 Telephone encounter Note * Telephone Encounter - Rangel Bonilla MD - 04/08/2024 8:47 AM EDT Noted. [facility]06-[facility]-2024 Miscellaneous Notes* Telephone Encounter - Rangel Bonilla MD - 04/08/2024 8:47 AM EDT Noted. * Telephone Encounter - Telma Venegas LPN - 04/08/2024 8:10 AM EDT Pt called to cancel apt in the office today 04-08-24 to let you know she has cancelled her apt today because she is in [facility] with 4 blood clots in her lungs. Will call back to schedule a hospital follow up. Telma Venegas LPN documented in this encounterLouis Stokes Cleveland [facility] Center06-03-2024 Telephone encounter Note * Telephone Encounter - Telma Venegas LPN - 04/08/2024 8:10 AM EDT Pt called to cancel apt in the office today 04-08-24 to let you know she has cancelled her apt today because she is in [facility] with 4 blood clots in her lungs. Will call back to schedule a hospital follow up. Telma Venegas LPN [facility]05-30-2024 Telephone encounter Note* Telephone Encounter - Waleska Cespedes MA - 04/04/2024 9:42 AM EDT Called and spoke with patient in detail. She verbalized understanding. Scheduled for 40 min follow up with Dr. Bonilla on 04/09/24. Waleska Cespedes MA [facility]05-30-2024 Miscellaneous Notes* Telephone Encounter - Waleska Cespedes MA - 04/04/2024 9:42 AM EDT Called and spoke with patient in detail. She verbalized understanding. Scheduled for 40 min follow up with Dr. Bonilla on 04/09/24. Waleska Cespedes MA * Telephone Encounter - Rangel Bonilla MD - 04/03/2024 8:33 PM EDT Please explain to patient that I had my staff call her because the changes on her recent EKG were new compared to her previous ones. This was not an issue with premature beats. I'm concerned she may have an underlying heart issue and I need her to be seen in the office. If she is going to choose toignore this request she needs to understand she may be at increased risk for a heart attack and potentially . * Telephone Encounter - Madison Vazquez MA - 04/03/2024 12:43 PM EDT Patient was D/C from [facility] on 04/02/2024. Let patient know that her EKG was abnormal and Dr Bonilla would like her seen and to set up a Stress Test. Patient indicated that has to explain this to everyone. She saw Dr. Leos a few years ago for her heart. He went into great detail that her heart was ok but EKG's could appear abnormal. They did do astress test back then and everything is ok. Patient Declined coming in for this issue. Madison Vazquez MA * Telephone Encounter - Madison Vazquez MA - 04/02/2024 10:09 AM EDT Patient is currently in the [facility]. See ER Documents on PCP desk. Madison Vazquez MA * Telephone Encounter - Rangel Bonilla MD - 04/02/2024 8:54 AM EDT Patient was seen in the [facility] this weekend. Her EKG was abnormal and she was asymptomatic with no c/o CP or shortness of breath. Needs seen this week in [facility] to get set up for a stress test. documented in this encounterLouis Stokes Cleveland [facility]05-29-2024 Telephone encounter Note * Telephone Encounter - Rangel Bonilla MD - 04/03/2024 8:33 PM EDT Please explain to patient that I had my staff call her because the changes on her recent EKG were new compared to her previous ones. This was not an issue with premature beats. I'm concerned she may have an underlying heart issue and I need her to be seen in the office. If she is going to choose toignore this request she needs to understand she may be at increased risk for a heart attack and potentially . [facility]05-29-20[facility] Telephone encounter Note* Telephone Encounter - Madison Vazquez MA - 04/03/2024 12:43 PM EDT Patient was D/C from [facility] on 04/02/2024. Let patient know that her EKG was abnormal and Dr Bonilla would like her seen and to set up a Stress Test. Patient indicated that has to explain this to everyone. She saw Dr. Leos a few years ago for her heart. He went into great detail that her heart was ok but EKG's could appear abnormal. They did do astress test back then and everything is ok. Patient Declined coming in for this issue. Madison Vazquez MA [facility]05-28-2024 Telephone encounter Note* Telephone Encounter - Madison Vazquez MA - 04/02/2024 10:09 AM EDT Patient is currently in the [facility]. See ER Documents on PCP desk. Madison Vazquez MA [facility]05-28-2024 Telephone encounter Note* Telephone Encounter - Rangel Bonilla MD - 04/02/2024 8:54 AM EDT Patient was seen in the [facility] this weekend. Her EKG was abnormal and she was asymptomatic with no c/o CP or shortness of breath. Needs seen this week in [facility] to get set up for a stress test. [facility] History of Present illness Narrative* Jean Pierre Garcia APRN.KATIE - 03/31/2024 8:12 AM EDT This note was created using Allvoicesriter. Subjective Gregg Ferris is a 78 year old female. [...] Patient swab for flu and COVID. Discussed Tessalon Perles which patient states that she already has. I otherwise reviewed with her probable viral illness and recommended ibuprofen plenty rest and fluids. - COVID & INFLUENZA A/B & RSV NAAT, ROUTINE 2. Irregular heart beat - ICD9: 427.9, ICD10: I49.9 EKG reviewed by myself does show sinus tachycardia with a rate of 107. AK interval 146 ms, QRS 72 ms With sinus arrhythmia. I do not appreciate any signs of atrial fibrillation. On evaluation of thiswith the patient she does now state that she was evaluated for this around several years ago and had seen cardiology who told her the same thing. - ECG B/O W INTERP (MED OFFICE) Jean Pierre Garcia APRN.[employer] documented in this encounterLouis Stokes Cleveland [facility] Center05-20-2024 History of Present illness Narrative* Samanta Flores LPN - 03/25/2024 2:09 PM EDT Scan on 03/25/2024 8:24 AM by Provider, PILAR Hernandez: Consultation - Emergency Medicine documented in this encounterLouis Stokes Cleveland [facility] Center03-20-2024 Instructions* Patient Instructions* Rangel Bonilla MD - 01/24/2024 5:20 PM EDT Consider getting the RSV vaccine in the late summer early Fall at alocal pharmacy. Please get labsdone on or after 07/12/2024 prior to your next visit. Screening schedule The following prevention plan is recommended: RSV Vaccine(1 - 1-dose 60+ series) Never done Covid-19 Vaccine(2022- season) due on 07/07/2023 Advance Directive Discussion [...] review all the medicines you take, even ethe-pwn-pjhwnen medicines. As you get older, the way medicines work in your body can change. Some medicines, or combinations of medicines, can make you sleepy or dizzy andcan cause you to fall. 3. Have your [...] have certain medical conditions. documented in this encounterLouis Stokes Cleveland [facility] Center03-20-2024 History of Present illness Narrative* Rangel Bonilla MD - 01/24/2024 4:48 PM EDT Images from the original note were not included. Gregg Ferris is a 78 year old female [...] No loose rugs, has grab bars and stairrails Smoke, vape, chews tobacco never Difficulty hearing [...] with patient, and I recommended no further interventionat this time. Cognitive screening Score: 5 Cognitive screening reviewed and no further action needed (score 3-5) Functional Observation Was the patient's Timed Up & Go test unsteady or ? 12 seconds? No Advance Care Planning Surrogate decision maker and/or advance care plan documented Measurements BP 133/77[Home reading[ Pulse 72 Resp 16 Ht 5' 1.75 (1.57m) Wt 140 lb (63.5kg) BMI 25.83kg/(m^2). Vision Screening: Follows with optometry/ophthalmology Assessment/Plan Medicare annual wellness visit, subsequent (Z00.00) - Counseled on healthy diet and regular exercise - Fall avoidance information provided - Personalized prevention plan provided See Below Chief Complaint Patient presents with: Medicare Wellness Exam HPI Gregg Ferris is a 78 year old female [...] back pain 07/20/[address] Duarte at [facility]. 08/18/[address] Fischer at [facility] Chronic throat clearing 02/01/2018 Diaphragmatic hernia Hiatal hernia Ectopic gastric mucosa of multiple sites 05/06/[address] Granado 04/2022 Elevated fasting blood sugar 08/14/2018 Encounter for gynecological examination without abnormal finding 07/20/[address] [facility]. Essential hypertension 07/20/2016 GERD without esophagitis 01/14/2008 Hemorrhoids 03/03/2017 History of recurrent UTIs 07/19/2018 History of subdural hematoma 03/03/2017 After a fall Lichen sclerosus et atrophicus 03/03/2017 Living will on file at physician's office 01/16/2023 DPA: Nate (Son) Lumbago 03/21/[address] Duarte at [facility]. Medicare annual wellness visit, subsequent 08/14/2018 Medicare Part B: 06/06/2008 last done: 08/23/2019 Migraine without aura and without status migrainosus, not intractable 07/20/2016 Mixed hyperlipidemia 01/14/2008 Postmenopausal atrophic vaginitis 06/06/2012 Pulmonary nodules 10/03/201609/2016, follow uo CT in a year, 08/[address] Zheng Right thyroid nodule 10/03/2016 Had benign biopsy 09/2016 at [facility] Seasonal allergies 07/20/2016 Spinal stenosis, lumbar [...] of Onset Coronary Artery Disease Mother Fatal [place] in her 80s Diabetes Father ADULT ONSET [...] BP Cuff Size: Regular Adult) Pulse 72 Resp16 Ht 156.8 cm (5' 1.75) Wt 63.5 [...] symmetric. Sensation to light touch and crainal nerves2-12 intact.. Health Maintenance List RSV Vaccine(1 - [...] Lymph 1.00 - 4.00 k/uL 2.93 2.22 Dixon% % 7.5 5.4 Abs Dixon <0.87 k/uL 0.62 0.43 Eosin% % 3.0 [...] Urine Negative Negative Negative Trace ! Specific [place], Ur 1.005 - 1.030 1.031 (H) 1.027 [...] diet of 1000 mg/day for under 50, 1200- 1500 mg/day for 50+ - Follow up for [...] which included preparing to see the patient, wuul-ha-sliz patient care, completing clinical documentation, performing a medically appropriate examination, counseling and educating the patient/family/caregiver and ordering medications, tests, or procedures. Rangel Bonilla MD documented in this encounterLouis Stokes Cleveland Va Medical Center02-15-2024 Miscellaneous Notes* Telephone Encounter - Elizabeth Malave MA - 12/21/2023 9:11 AM EST Patient notified of results and recommendations as listed below, verbalized understanding. Elizabeth Malave MA * Telephone Encounter - Ruby Garza PA-C - 12/21/2023 8:46 AM EST Please call and let patient know her chest xray read by radiology did not see a pneumonia, however with her worsening cough and shortness of breath last night I am going to treat with doxycycline andtessalon. Follow up with pcp if symptoms do not improve next week . documented in this encounterLouis Stokes Cleveland Va Medical Center02-15-2024 History of Present illness Narrative* Ruby Garza PA-C - 12/21/2023 8:48 AM EST This note was created using Allvoicesriter. Subjective Gregg Ferris is a 78 year old female. [...] back pain 07/20/[address] Duarte at [facility]. 08/18/[address] Fischer at [facility] throat clearing 02/01/2018 Diaphragmatic hernia Hiatal hernia Ectopic gastric mucosa of multiple sites 05/06/[address] Granado 04/2022 Elevated fasting blood sugar 08/14/2018 Encounter for gynecological examination without abnormal finding 07/20/2016 Sees [facility]. Essential hypertension 07/20/2016 GERD without esophagitis 01/14/2008 Hemorrhoids 03/03/2017 History of recurrent UTIs 07/19/2018 History of subdural hematoma 03/03/2017 After a fall Lichen sclerosus et atrophicus 03/03/2017 Living will on file at physician's office 01/16/2023 DPA: Nate (Son) Lumbago 03/21/[address] Duarte at [facility]. Medicare annual wellness visit, subsequent 08/14/2018 Medicare Part B: 06/06/2008 last done: 08/23/2019 Migraine without aura and without status migrainosus, not intractable 07/20/2016 Mixed hyperlipidemia 01/14/2008 Postmenopausal atrophic vaginitis 06/06/2012 Pulmonary nodules 10/03/201609/2016, follow uo CT in a year, 08/[address] Zheng Right thyroid nodule 10/03/2016 Had benign biopsy 09/2016 at [facility] Seasonal allergies 07/20/2016 Spinal stenosis, lumbar region, without neurogenic claudication 03/21/2012 Current Outpatient Medications Medication Sig Dispense Refill doxycycline (VIBRA-TABS) 100 mg tablet Take 1 tablet by mouth two times a day for 7 days. 14 tablet0 benzonatate (TESSALON PERLES) 100 mg capsule Take [...] of Onset Coronary Artery Disease Mother Fatal [place] in her 80s Diabetes Father ADULT ONSET [...] results of chest xray. Patient agreeable with thisplan. 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 Duarte at [facility]. 08/18/[address] Fischer at [facility] Chronic throat clearing 02/01/2018 Diaphragmatic hernia Hiatal hernia Ectopic gastric mucosa of multiple sites 05/06/[address] Granado 04/2022 Elevated fasting blood sugar 08/14/2018 Encounter for gynecological examination without abnormal finding 07/20/2016 Sees [facility]. Essential hypertension 07/20/2016 GERD without esophagitis 01/14/2008 Hemorrhoids 03/03/2017 History of recurrent UTIs 07/19/2018 History of subdural hematoma 03/03/2017 After a fall Lichen sclerosus et atrophicus 03/03/2017 Living will on file at physician's office 01/16/2023 DPA: Nate (Son) Lumbago 03/21/[address] Duarte at [facility]. Medicare annual wellness visit, subsequent 08/14/2018 Medicare Part B: 06/06/2008 last done: 08/23/2019 Migraine without aura and without status migrainosus, not intractable 07/20/2016 Mixed hyperlipidemia 01/14/2008 Postmenopausal atrophic vaginitis 06/06/2012 Pulmonary nodules 10/03/201609/2016, follow uo CT in a year, 08/[address] Zheng Right thyroid nodule 10/03/2016 Had benign biopsy 09/2016 at [facility] Seasonal allergies 07/20/2016 Spinal stenosis, lumbar [...] of Onset Coronary Artery Disease Mother Fatal [place] in her 80s Diabetes Father ADULT ONSET [...] Discussed expected course of illness Anisa Mitchell APRN.[employer] documented in this encounterLouis Stokes Cleveland Va Medical Center02-06-2024 Instructions* Patient Instructions* Anisa Mitchell APRN.KATIE - 12/12/2023 4:27 PM EST ASSESSMENT/PLAN: 1. [...] Discussed expected course of illness Anisa Mitchell APRN.[employer] documented in this encounterLouis Stokes Cleveland Va Medical Center11-07-2023 History of Present illness Narrative* Helena Vazquez APRN.KATIE - 09/12/2023 4:06 PM EST CC: Patient presents with: Cough: Cough, sinus pressure and loss of voice x 12 days HPI: Gregg Ferris is a 77 year old female [...] back pain 07/20/[address] Duarte at [facility]. 08/18/[address] Fischer at [facility] throat clearing 02/01/2018 Diaphragmatic hernia Hiatal hernia Ectopic gastric mucosa of multiple sites 05/06/[address] Granado 04/2022 Elevated fasting blood sugar 08/14/2018 Encounter for gynecological examination without abnormal finding 07/20/2016 Sees [facility]. Essential hypertension 07/20/2016 GERD without esophagitis 01/14/2008 Hemorrhoids 03/03/2017 History of recurrent UTIs 07/19/2018 History of subdural hematoma 03/03/2017 After a fall Lichen sclerosus et atrophicus 03/03/2017 Living will on file at physician's office 01/16/2023 DPA: Nate (Son) Lumbago 03/21/[address] Duarte at [facility]. Medicare annual wellness visit, subsequent 08/14/2018 Medicare Part B: 06/06/2008 last done: 08/23/2019 Migraine without aura and without status migrainosus, not intractable 07/20/2016 Mixed hyperlipidemia 01/14/2008 Postmenopausal atrophic vaginitis 06/06/2012 Pulmonary nodules 10/03/201609/2016, follow uo CT in a year, 08/[address] Zheng Right thyroid nodule 10/03/2016 Had benign biopsy 09/2016 at [facility] Seasonal allergies 07/20/2016 Spinal stenosis, lumbar [...] of Onset Coronary Artery Disease Mother Fatal [place] in her 80s Diabetes Father ADULT ONSET [...] symptoms occur. Patient agreeable to treatment plan. Helena Vazquez APRN.[employer] documented in this encounterLouis Stokes Cleveland Va Medical Center11-07-2023 Miscellaneous Notes* Telephone Encounter - Rylie Kaur RN - 09/12/2023 3:28 PM EST Patient calls and notified of provider recommendations below. Patient voiced understanding. Rylie Kaur RN * Telephone Encounter - Madison Vazquez MA - 09/12/2023 1:46 PM EST Left message for patient to contact office. Madison Vazquez MA * Telephone Encounter - Rangel Bonilla MD - 09/12/2023 1:14 PM EST Advise patient she will need seen. We do not just call in antibiotics. * Telephone Encounter - Rylie Kaur RN - 09/12/2023 12:42 PM EST Patient calls and states that she has had sinus pressure x 1 week with sinus eye pain. Patient doesa lot of coughing at night and has had a lot of drainage. Patient has done OTC medications including saline solution which has not helped. Offered to schedule appointment for patient to discuss symptoms, patient declines. Patient asking if provider can send in a prescription for her? Please review and advise, Rylie Kaur RN documented in this encounterLouis Stokes Cleveland Va Medical Center10-05-2023 Instructions* Patient Instructions* Ruby Garza PA-C - 08/10/2023 8:55 AM [...] if LAGEVRIO will harm your baby if youtake LAGEVRIO during . LAGEVRIO is not recommended for use in . LAGEVRIO has not been studied in . LAGEVRIO was studied in animals only. When LAGEVRIO was given to animals, LAGEVRIO caused harm to their unborn babies. You and your healthcare provider may decide that you should take LAGEVRIO during if thereare no other COVID-19 treatment options approved or [...] method of control (contraception) consistently and correctly duringtreatment with LAGEVRIO and for 4 days after the last dose of LAGEVRIO. Talk to your healthcare provider about reliable control methods. Before starting treatment with LAGEVRIO your healthcare provider may do a test to see if you are before starting treatment with LAGEVRIO. Tell your healthcare provider right away if you become or think you may be duringtreatment with LAGEVRIO. Registry: There is a registry for individuals who take LAGEVRIO during . The purpose of this program is to collect information about the health of you and your baby. If you are or become during treatment with LAGEVRIO, you are encouraged to reportyour use of LAGEVRIO during to this registry at [email or web address]://[email or web address] or . For individuals who are sexually active with partners who are able to become : It is not known if LAGEVRIO can affect sperm. While the risk is regarded as low, animal studies to fully assess the potential for LAGEVRIO to affect the babies of males treated with LAGEVRIO have notbeen completed. A reliable method of control (contraception) [...] COVID-19 treatment options approved or authorized by theFDA are not accessible or clinically appropriate. The U.S. Food and Drug Administration (FDA) has issued an Emergency Use Authorization (EUA) to makeLAGEVRIO available during the COVID-19 pandemic (for more details about an EUA please see What is an Emergency Use Authorization? at the end of this document). LAGEVRIO is not an FDA-approved medicine in the [place]. Read this Fact Sheet for information about LAGEVRIO. Talk to your healthcareprovider about your options if you have any questions. It is your choice to take LAGEVRIO. What is COVID-19? COVID-19 is caused by a virus called a coronavirus. You can get COVID-19 through close contact withanother person who has the virus. COVID-19 illnesses have ranged from very teaa-je-kqovti, including illness resulting in . While information so far suggests that most COVID-19 illness is mild, serious illness can happen and maycause some of your other medical conditions to [...] use of LAGEVRIO for the treatment of mild- tomoderate COVID-19 in adults under an EUA. For [...] serious illnesses Take any medicines including prescription, fszk-ueq-iholrez medicines, vitamins, and herbal products. How do [...] NG or OG that is size 12 Thai (FR) or larger. If you miss a dose of LAGEVRIO: If it has been less than 10 hours since the missed dose, take it as soon as you remember. If it has been more than 10 hours since the missed dose, skip the missed dose and take your dose atthe next scheduled time. Do not double the [...] tell you what size catheter tip syringe youwill need to take or give a dose of LAGEVRIO. Place the needed supplies on a clean work surface. Follow your healthcare provider s instructions on how to flush the NG or OG feeding tube. Flush theNG or OG feeding tube with 5 mL [...] contents and water well for 3 minutes. Thecapsule contents may not dissolve completely. Remove the [...] any capsule contents left in the container orcatheter tip syringe. Use the same catheter tip syringe to flush the NG or OG feeding tube 2 times with 5 mL of water (10mL total). Rinse the container, lid and catheter tip syringe well with clean water after use. Place on a cleanpaper towel until next use. What are the [...] to treat people with COVID-19. Go to https://www.fda.gov/bxhptycsm-rudsreylulgp-xdr-response/rkn-fhywvdaasxsynoo-con- policy-framework/fqvdythkr-uar-phhatgsbsjpbs for more information. It is your choice [...] to FDA MedWatch at www.fda.gov/medwatch or call 4-223-NRY-6946 (0543-111-1088). How should I store LAGEVRIO? Store LAGEVRIO capsules at room temperature between 68 F to 77 F (20 C to 25 C). Keep LAGEVRIO and all medicines out of the reach of children. How can I learn more about COVID-19? Ask your healthcare provider. Visit www.cdc.gov/COVID19 Contact your local or state public health department. Call [employer] at (toll free in the [place] Visit wwwSpeakap What Is an Emergency Use Authorization (EUA)? The [place] FDA has made LAGEVRIO available under an emergency access mechanism called an Emergency Use Authorization (EUA) The EUA is supported by a Electrician Third of Health and Human Service ([facility])declaration that circumstances exist to justify emergency use of drugs and biological products during the COVID-19 pandemic. LAGEVRIO for the treatment of adults with a current diagnosis of kiul-ho-oqaoplzb COVID-19 who are at high risk for progression to severe COVID- 19, including hospitalization or , and for whom [...] evidence available including data from adequate and well-controlledclinical trials, if available, it is reasonable to [...] no longer be used under the EUA). Manuf. lu: [employer] [address] For patent information: www.apta.me.MaryJane Distribution/research/patent Copyright [employer] [place], [place], [place] and its affiliates. All rights reserved. [id number] Revised: December 2022 documented in this encounterLouis Stokes Cleveland Va Medical Center10-05-2023 Miscellaneous Notes* Telephone Encounter - Ruby Garza PA-C - 08/10/2023 8:55 AM EDT I called and discussed oral medication and treatment and she had an interaction with her simvastatin so molnupiravir was sent in. Patient sent EA U through her MyChart. Agreeable with plan. Molnupiravir Eligibility and Patient Discussion [facility] Formulary Restriction Criteria: Adult outpatients 18 years [...] whether the patient is based on the firstday of the last menstrual period in individuals [...] patient was also informed of the significant knownbenefits and potential risks of molnupiravir, and the [...] those alternatives. The patient was provided electronically withthe Fact Sheet for Patients, Parents and Caregivers. [...] Garza PA-C August 10, 2023 8:55 AM * Telephone Encounter - Ruby Garza PA-C - 08/10/2023 8:42 AM EDT I called and left message with patient to return call. If she calls back she is positive for COVID-19. If she is interested in oral antiviral treatment she is in the window for this. I can speak withher if she is interested in this medication when she calls back. documented in this encounterLouis Stokes Cleveland Va Medical Center10-04-2023 Instructions* Patient Instructions* Jessica Badillo APRN.CNP - 08/09/2023 8:20 AM EDT covid and influenza test ordered You will be notified in 12-24 hours, results available on [facility] Home isolation until results are back Rest, [...] breath, inability to swallow. documented in this encounterLouis Stokes Cleveland Va Medical Center10-04-2023 History of Present illness Narrative* Jessica Badillo APRN.CNP - 08/09/2023 8:03 AM EDT Subjective The history is provided by the patient. No station mechanic helper was used. HPI Gregg Ferris is a 77 year old female who presents today for CC of cough, fever, sore throat, congestion for 2 days. She has used otc cough medication without relief. 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 Desires covid flu testing today. H/o [...] back pain 07/20/[address] Duarte at [facility]. 08/18/[address] Fischer at [facility] Chronic throat clearing 02/01/2018 Diaphragmatic hernia Hiatal hernia Ectopic gastric mucosa of multiple sites 05/06/[address] Granado 04/2022 Elevated fasting blood sugar 08/14/2018 Encounter for gynecological examination without abnormal finding 07/20/[address] [facility]. Essential hypertension 07/20/2016 GERD without esophagitis 01/14/2008 Hemorrhoids 03/03/2017 History of recurrent UTIs 07/19/2018 History of subdural hematoma 03/03/2017 After a fall Lichen sclerosus et atrophicus 03/03/2017 Living will on file at physician's office 01/16/2023 DPA: Nate (Son) Lumbago 03/21/[address] Duarte at [facility]. Medicare annual wellness visit, subsequent 08/14/2018 Medicare Part B: 06/06/2008 last done: 08/23/2019 Migraine without aura and without status migrainosus, not intractable 07/20/2016 Mixed hyperlipidemia 01/14/2008 Postmenopausal atrophic vaginitis 06/06/2012 Pulmonary nodules 10/03/201609/2016, follow uo CT in a year, 08/[address] Zheng Right thyroid nodule 10/03/2016 Had benign biopsy 09/2016 at [facility] Seasonal allergies 07/20/2016 Spinal stenosis, lumbar region, without neurogenic claudication 03/21/2012 I have confirmed and edited as necessary, the [facility] Review of Systems Constitutional: Negative for chills [...] in 12-24 hours with results, available on mychart Prednisone 40 mg (2-20mg tablets) po QD [...] for higher level of care were discussed indetail warranting prompt ER evaluation. Jessica Badillo APRN.KATIE documented in this encounterLouis Stokes Cleveland Va Medical Center09-13-2023 History of Present illness Narrative* Rangel Bonilla MD - 07/19/2023 4:31 PM EDT Chief Complaint Patient presents with: F/U 6 months HPI Gregg Ferris is a 77 year old female who presents here today for 6 month follow up. Patient with Hx of HTN, elevated fasting blood sugar. GERD, hyperlipidemia, Chronic back pain, frequent UTI's, seasonal allergies as well as those reviewed and addressed below and in ROS. Patient has been doing ok. Gastro feels throat clearing is due to GERD. She did have an ablation inFeb 2022. Patient see Urology - Dr Suazo [...] back pain 07/20/[address] Duarte at [facility]. 08/18/[address] Fischer at [facility] throat clearing 02/01/2018 Diaphragmatic hernia Hiatal [...] (Son) Lumbago 03/21/[address] Duarte at [facility]. Medicare annual wellness visit, subsequent 08/14/2018 Medicare Part B: 06/06/2008 last done: 08/23/2019 Migraine without aura and without status migrainosus, not intractable 07/20/2016 Mixed hyperlipidemia 01/14/2008 Postmenopausal atrophic vaginitis 06/06/2012 Pulmonary nodules 10/03/201609/2016, follow uo CT in a year, 08/[address] Zheng Right thyroid nodule 10/03/2016 Had benign biopsy 09/2016 at [facility] Seasonal allergies 07/20/2016 Spinal stenosis, lumbar [...] of Onset Coronary Artery Disease Mother Fatal [place] in her 80s Diabetes Father ADULT ONSET [...] CBC Rangel Bonilla MD documented in this encounterLouis Stokes Cleveland [facility] Center08-02-2023 History of Present illness Narrative* Samanta Flores LPN - 06/07/2023 3:52 PM EDT Scan on 06/06/2023 4:00 PM by Provider, PILAR Hernandez: Consultation - documented in this encounterLouis Stokes Cleveland Va Medical Center07-20-2023 History of Present illness Narrative* Helena Vazquez APRN.[employer] - 05/25/2023 2:54 PM EDT CC: Patient presents with: Urinary Problem: Pt reported urinary frequency, burning x1-2 wks, [facility] 05/16/[facility]23 completed ATB. HPI Gregg Ferris is a 77 year old female [...] back pain 07/20/[address] Duarte at [facility]. 08/18/[address] Fischer at [facility] throat clearing 02/01/2018 Diaphragmatic hernia Hiatal hernia Ectopic gastric mucosa of multiple sites 05/06/[address] Granado 04/2022 Elevated fasting blood sugar 08/14/2018 Encounter for gynecological examination without abnormal finding 07/20/[address] [facility]. Essential hypertension 07/20/2016 GERD without esophagitis 01/14/2008 Hemorrhoids 03/03/2017 History of recurrent UTIs 07/19/2018 History of subdural hematoma 03/03/2017 After a fall Lichen sclerosus et atrophicus 03/03/2017 Living will on file at physician's office 01/16/2023 DPA: Nate (Son) Lumbago 03/21/[address] Duarte at [facility]. Medicare annual wellness visit, subsequent 08/14/2018 Medicare Part B: 06/06/2008 last done: 08/23/2019 Migraine without aura and without status migrainosus, not intractable 07/20/2016 Mixed hyperlipidemia 01/14/2008 Postmenopausal atrophic vaginitis 06/06/2012 Pulmonary nodules 10/03/201609/2016, follow uo CT in a year, 08/[address] Zheng Right thyroid nodule 10/03/2016 Had benign biopsy 09/2016 at [facility] Seasonal allergies 07/20/2016 Spinal stenosis, lumbar [...] mg capsule Take 1 capsule by mouth twicedaily for 5 days. FAMILY HISTORY Problem Relation Age of Onset Coronary Artery Disease Mother Fatal [place] in her 80s Diabetes Father ADULT ONSET [...] symptoms occur. Patient agreeable to treatment plan. Helena Vazquez APRN.[employer] documented in this encounterLouis Stokes Cleveland [facility] Center07-20-2023 Miscellaneous Notes* Telephone Encounter - Clarita Neely LPN - 05/25/2023 1:59 PM EDT Pt notified of same. Pt wanting to know if she could be given an atb today. Advised her would have to wait for the UA results to come back first. Pt is leaving early Sat for vacation. Advised pt she could come into [facility] to be seen and they could prescribe if urine dip shows anything. Pt states he mayjust come into [facility]. Clarita Neely LPN * Telephone Encounter - Rayna Martinez PA-C - 05/25/2023 1:52 PM EDT Order placed * Telephone Encounter - Rylie Kaur RN - 05/25/2023 1:39 PM EDT Patient calls and states that she continues to have urinary issues. Patient continues to have frequency and burning with urination. Patient just finished cephalexin that was prescribed to her by [facility] 3 days ago. Patient continues to have issues. Patient states that Dr. Bonilla had told her that ifshe continued to have symptoms a urine test would be ordered. Please review and advise, Rylie Kaur RN documented in this encounterLouis Stokes Cleveland [facility] Center07-14-2023 Miscellaneous Notes* Telephone Encounter - Cabrera Moore Ma - 05/19/2023 8:44 AM EDT Patient was notified Cabrera Moore Ma * Telephone Encounter - Rangel Bonilla MD - 05/19/2023 8:38 AM EDT Let patient know that as long as her symptoms have resolved we do not re-peat a urine. * Telephone Encounter - Madison Vazquez MA - 05/18/2023 8:52 AM EDT Spoke with patient and gave update. Patient did get our message and tried to call back but couldn't get through so she ended up going to [facility]. Just with her history she just wanted to make sure everything was ok. Obtained documents given to PCP. Patient is wanting to know if she will need additional urine test after she has completed the medication. Madison Vazquez MA * Telephone Encounter - Madison Vazquez MA - 05/16/2023 4:40 PM EDT Left message for patient to contact office. Madison Vazquez MA * Telephone Encounter - Rangel Bonilla MD - 05/16/2023 4:30 PM EDT Let patient know with the fact that her symptoms seem to be improving, her temp is ok and the bacteria in her urine is sensitive to the medication she is on I would not make any changes at this time. * Telephone Encounter - Madison Vazquez MA - 05/16/2023 11:01 AM EDT Patient sent my chart message and her temp was 98.3 Madison Vazquez MA * Telephone Encounter - Telma Venegas LPN - 05/16/2023 8:38 AM EDT Pt called back and she is not able to take her temp because she does not have one. Please advise. Telma ACOSTA * Telephone Encounter - Madison Vazquez MA - 05/16/2023 8:32 AM EDT Spoke with patient and she indicated that [...] of this because of her history. Madison Vazquez MA * Telephone Encounter - Cecy Venegas LPN - 05/16/2023 8:06 AM EDT Pt. went to [facility] for UTI on Monday. She was given Cephalexin 500 mg q6h. She is still having symptoms Burning with urination, nausea. She was hospitalized for this in the past. Please advise. documented in this encounterLouis Stokes Cleveland Va [facility] Center07-07-2023 Hospital Discharge instructions Additional Instructions Urine culture from 4 days ago pansensitive E. coli. White count 7.9, Cr 0.78, UA with only light leukocytes esterase at this time. We will extend her antibiotics additional 2 days status post Rocephin. Follow-up with your doctor. Return if any worsening symptoms.[facility] Work Phone: 1(780) 462-713003-27-2023 Miscellaneous Notes* Telephone Encounter - Marielle Suarez RN - 01/30/2023 9:25 AM EDT Patient returned call and given provider's message below . Jamir Suarez RN * Telephone Encounter - Madison Vazquez MA - 01/30/2023 8:53 AM EDT Left message for patient to contact office. Madison Vazquez MA * Telephone Encounter - Rangel Bonilla MD - 01/28/2023 1:53 PM EDT Let patient know CT of chest was ok. documented in this encounterLouis Stokes Cleveland Va Medical Center03-21-2023 History of Present illness Narrative* Lissa Fair RT(R) - 01/24/2023 3:40 PM EDT Radiology Service Progress Note PATIENT NAME: Gregg Ferris DATE OF SERVICE: January 24, 2023 TIME: 3:28 PM PATIENT IDENTITY VERIFICATION COMPLETED USING TWO (2) IDENTIFIERS: Name and Date of confirmedby patient verbally. FALL SCREENING: Has the patient [...] 24, 2023 3:28 PM documented in this encounterLouis Stokes Cleveland Va Medical Center03-16-2023 Miscellaneous Notes* Telephone Encounter - Marielle Suarez RN - 01/19/2023 4:37 PM EDT Patient returned call and given provider's message below and patient verbalized understanding. Jamir Suarez RN * Telephone Encounter - Madison Vazquez MA - 01/19/2023 8:23 AM EDT Left message for patient to contact office. Madison Vazquez MA * Telephone Encounter - Rangel Bonilla MD - 01/18/2023 10:27 PM EDT Let patient know stool for blood was negative. 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 Duarte at [facility]. Migraine without aura, without mention of [...] of Onset Coronary Artery Disease Mother Fatal [place] in her 80s Diabetes Father ADULT ONSET Coronary Artery Disease Father in his 80s Hypertension Brother Coronary Artery Disease Brother 56 Prostate Cancer Brother COPD No Family History No lung cancer. 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 Social History Main Topics Smoking [...] time. List of current specialists seen: Dr. Abeeb Brown, optho End of Live Planning discussed including patients advanced directive wishes: Yes I am willing to follow Gregg's advanced directives. Depression screen Depression Screening 09/23/2016 11/29/2017 02/19/2019 01/16/2023 PHQ-2 Score 0 0 0 0 Depression screening tool completed and reviewed. Based on score and interview, patient is not at risk for depression. Screening tool discussed with patient, and I recommended no further interventionat this time. Functional Ability/Safety Screen 1. Was the patient's timed Up and Go test unsteady or longer than 30 seconds? No 2. Does the patient need help with the phone, transportation, shopping,preparing meals, housework, laundry, medications or managing money? No 3. Does your home have rugs in the hallway, lack of grab bars in the bathroom, lack of handrails onthe stairs or have poor lighting? No Hearing [...] Patient presents with: Medicare Wellness Exam: HPI Gregg Ferris is a 77 year old female [...] to GERD. She did have an ablation inFeb 2022. Past medical history, appointments, medications, allergies reviewed. 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 Duarte at [facility]. 08/18/[address] Fischer at [facility] Chronic throat clearing 02/01/2018 Diaphragmatic hernia Hiatal hernia Ectopic gastric mucosa of multiple sites 05/06/[address] Granado 04/2022 Elevated fasting blood sugar 08/14/2018 Encounter for gynecological examination without abnormal finding 07/20/[address] [facility]. Essential hypertension 07/20/2016 GERD without esophagitis 01/14/2008 Hemorrhoids 03/03/2017 History of recurrent UTIs 07/19/2018 History of subdural hematoma 03/03/2017 After a fall Lichen sclerosus et atrophicus 03/03/2017 Living will on file at physician's office 01/16/2023 DPA: Nate (Son) Lumbago 03/21/[address] Duarte at [facility]. Medicare annual wellness visit, subsequent 08/14/2018 Medicare Part B: 06/06/2008 last done: 08/23/2019 Migraine without aura and without status migrainosus, not intractable 07/20/2016 Mixed hyperlipidemia 01/14/2008 Postmenopausal atrophic vaginitis 06/06/2012 Pulmonary nodules 10/03/201609/2016, follow uo CT in a year, 08/[address] Zheng Right thyroid nodule 10/03/2016 Had benign biopsy 09/2016 at [facility] Seasonal allergies 07/20/2016 Spinal stenosis, lumbar [...] of Onset Coronary Artery Disease Mother Fatal [place] in her 80s Diabetes Father ADULT ONSET [...] symmetric. Sensation to light touch and crainal nerves2-12 intact.. Health Maintenance List DTAP,TDAP,TD(2 - Tdap) [...] Abs Lymph 1.00 - 4.00 k/uL 2.93 Dixon% % 7.5 Abs Dixon <0.87 k/uL 0.62 Eosin% % 3.0 Abs [...] Negative Ketones, Urine Trace, Negative Negative Specific [place], Ur 1.005 - 1.030 1.031 (H) Hemoglobin/Blood,Ur [...] diet of 1000 mg/day for under 50, 1200- 1500 mg/day for 50+ - Follow up for [...] which included preparing to see the patient, [id number] patient care, completing clinical documentation, performing a medically appropriate examination, counseling and educating the patient/family/caregiver and ordering medications, tests, or procedures. Rangel Bonilla MD documented in this encounterLouis Stokes Cleveland [facility] Center03-06-2023 Miscellaneous Notes* Telephone Encounter - Madison Vazquez MA - 01/09/2023 11:28 AM EST Patient notified. Madison Vazquez MA * Telephone Encounter - Rangel Bonilla MD - 01/09/2023 11:25 AM EST Let patient know urine and non-fasting lab orders placed. * Telephone Encounter - Nikko Carmona RN - 01/09/2023 8:18 AM EST Patient reports she came in Sat to get bloodwork done for her appt with pcp on 01-16, but there wereno orders. Asking if pcp wants labs done prior to appt? Please advise patient either way via her cell. documented in this encounterLouis Stokes Cleveland Va Medical Center12-16-2022 Miscellaneous Notes* Telephone Encounter - Rangel Bonilla MD - 10/21/2022 5:23 PM EST The following approved medication requests have been transmitted electronically. Requested Prescriptions Signed Prescriptions Disp Refills SUMAtriptan (IMITREX) 100 mg tablet 9 tablet 3 Sig: Take one tab by month with onset of headache. Can repeat in 2 hrs. Max of 2 tabs in 24 hrs Authorizing Provider: RANGEL BONILLA MD * Telephone Encounter - Marielle Suarez RN - 10/21/2022 3:30 PM EST Patient has been identified by name and [...] you. 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 Clarita Neely LPN Scan on 05/05/2022 9:43 AM by External Provider: Consultation - GI documented in this encounterLouis Stokes Cleveland [facility] Center06-22-2022 Instructions* Patient Instructions* Rangel Bonilla MD - 04/27/2022 8:54 AM EDT Please get labs and urine test done on or after 10/14/2022 prior to your next visit. documented in this encounterLouis Stokes Cleveland [facility] Medical Center06-22-2022 History of Present illness Narrative* Rangel Bonilla MD - 04/27/2022 8:40 AM EDT Chief Complaint Patient presents with: F/U 6 months HPI Gregg Ferris is a 76 year old female [...] back pain 07/20/[address] Duarte at [facility]. 08/18/[address] Fischer at [facility] Chronic throat clearing 02/01/2018 Diaphragmatic hernia Hiatal hernia Elevated fasting blood sugar 08/14/2018 Encounter for gynecological examination without abnormal finding 07/20/2016 Sees [facility]. Essential hypertension 07/20/2016 GERD without esophagitis 01/14/2008 Hemorrhoids 03/03/2017 History of recurrent UTIs 07/19/2018 History of subdural hematoma 03/03/2017 After a fall Lichen sclerosus et atrophicus 03/03/2017 Lumbago 03/21/[address] Duarte at [facility]. Medicare annual wellness visit, subsequent 08/14/2018 Medicare Part B: 06/06/2008 last done: 08/23/2019 Migraine without aura and without status migrainosus, not intractable 07/20/2016 Mixed hyperlipidemia 01/14/2008 Postmenopausal atrophic vaginitis 06/06/2012 Pulmonary nodules 10/03/201609/2016, follow uo CT in a year, 08/[address] Zheng Right thyroid nodule 10/03/2016 Had benign biopsy 09/2016 at [facility] Seasonal allergies 07/20/2016 Spinal stenosis, lumbar [...] of Onset Coronary Artery Disease Mother Fatal [place] in her 80s Diabetes Father ADULT ONSET [...] prior Rangel Bonilla MD documented in this encounterLouis Stokes Cleveland [facility] Center06-22-2022 Nurse Note* Madison Vazquez MA - 04/27/2022 8:30 AM EDT Home BP readings: 136/67 130/83 115/76 documented in this encounterLouis Stokes Cleveland [facility] Center06-04-2021 History of Present illness Narrative* Yarely Devlin, RT(R) - 04/09/2021 8:30 AM EDT Radiology Service Progress Note PATIENT NAME: Gregg Ferris DATE OF SERVICE: April 09, 2021 TIME: 8:28 AM PATIENT IDENTITY VERIFICATION COMPLETED USING TWO (2) IDENTIFIERS: Name and Date of confirmedby patient verbally. FALL SCREENING: Has the patient [...] 09, 2021 8:28 AM documented in this encounterLouis Stokes Cleveland [facility] Center03-25-2021 History of Present illness Narrative* Kendra Cleveland Tech (Tech) - 01/28/2021 2:00 PM EDT Radiology Service Progress Note PATIENT NAME: Gregg Ferris DATE OF SERVICE: January 28, 2021 TIME: 2:02 PM PATIENT IDENTITY VERIFICATION COMPLETED USING TWO (2) IDENTIFIERS: Name and Date of confirmedby patient verbally. FALL SCREENING: Has the patient [...] 28, 2021 2:02 PM documented in this encounterLouis Stokes Cleveland [facility] Center03-10-2008 History of Past illness Narrative* Problem Noted Date Resolved Date Elevated blood pressure read ing without diagnosis of hypertension 01/14/2008 06/20/2016 documented as of this encounter (statuses as of 04/27/2022) [address] History of Past illness Narrative* Problem Noted Date Resolved Date Elevated blood pressure read ing without diagnosis of hypertension 01/14/2008 06/20/2016 documented as of this encounter (statuses as of 05/06/2022) [address]2008 History of Past illness Narrative* Problem Noted Date Resolved Date Elevated blood pressure read ing without diagnosis of hypertension 01/14/2008 06/20/2016 documented as of this encounter (statuses as of 10/21/2022) [address]2008 History of Past illness Narrative* Problem Noted Date Resolved Date Elevated blood pressure read ing without diagnosis of hypertension 01/14/2008 06/20/2016 documented as of this encounter (statuses as of 01/09/2023) [address]2008 History of Past illness Narrative* Problem Noted Date Resolved Date Elevated blood pressure read ing without diagnosis of hypertension 01/14/2008 06/20/2016 documented as of this encounter (statuses as of 01/16/2023) [address]2008 History of Past illness Narrative* Problem Noted Date Resolved Date Elevated blood pressure read ing without diagnosis of hypertension 01/14/2008 06/20/2016 documented as of this encounter (statuses as of 01/19/2023) [address] History of Past illness Narrative* Problem Noted Date Resolved Date Elevated blood pressure read ing without diagnosis of hypertension 01/14/2008 06/20/2016 documented as of this encounter (statuses as of 01/30/2023) [address] History of Past illness Narrative* Problem Noted Date Diagnosed Date Resolved Date Elevated blood pressure read ing without diagnosis of hypertension 01/14/2008 06/20/2016 documented as of this encounter (statuses as of 05/16/2023) [address] History of Past illness Narrative* Problem Noted Date Diagnosed Date Resolved Date Elevated blood pressure read ing without diagnosis of hypertension 01/14/2008 06/20/2016 documented as of this encounter (statuses as of 05/19/2023) [address] History of Past illness Narrative* Problem Noted Date Diagnosed Date Resolved Date Elevated blood pressure read ing without diagnosis of hypertension 01/14/2008 06/20/2016 documented as of this encounter (statuses as of 05/25/2023) [address]2008 History of Past illness Narrative* Problem Noted Date Diagnosed Date Resolved Date Elevated blood pressure read ing without diagnosis of hypertension 01/14/2008 06/20/2016 documented as of this encounter (statuses as of 05/25/2023) [address] History of Past illness Narrative* Problem Noted Date Diagnosed Date Resolved Date Elevated blood pressure read ing without diagnosis of hypertension 01/14/2008 06/20/2016 documented as of this encounter (statuses as of 06/08/2023) [address] History of Past illness Narrative* Problem Noted Date Diagnosed Date Resolved Date Elevated blood pressure read ing without diagnosis of hypertension 01/14/2008 06/20/2016 documented as of this encounter (statuses as of 07/23/2023) [address]2008 History of Past illness Narrative* Problem Noted Date Diagnosed Date Resolved Date Elevated blood pressure read ing without diagnosis of hypertension 01/14/2008 06/20/2016 documented as of this encounter (statuses as of 08/10/2023) [address] History of Past illness Narrative* Problem Noted Date Diagnosed Date Resolved Date Elevated blood pressure read ing without diagnosis of hypertension 01/14/2008 06/20/2016 documented as of this encounter (statuses as of 08/11/2023) [address] History of Past illness Narrative* Problem Noted Date Diagnosed Date Resolved Date Elevated blood pressure read ing without diagnosis of hypertension 01/14/2008 06/20/2016 documented as of this encounter (statuses as of 08/11/2023) [address] History of Past illness Narrative* Problem Noted Date Diagnosed Date Resolved Date Elevated blood pressure read ing without diagnosis of hypertension 01/14/2008 06/20/2016 documented as of this encounter (statuses as of 09/09/2023) [address] History of Past illness Narrative* Problem Noted Date Diagnosed Date Resolved Date Elevated blood pressure read ing without diagnosis of hypertension 01/14/2008 06/20/2016 documented as of this encounter (statuses as of 09/13/2023) [address] History of Past illness Narrative* Problem Noted Date Diagnosed Date Resolved Date Elevated blood pressure read ing without diagnosis of hypertension 01/14/2008 06/20/2016 documented as of this encounter (statuses as of 09/13/2023) [place] [address]-10-2008 History of Past illness Narrative* Problem Noted Date Diagnosed Date Resolved Date Elevated blood pressure read ing without diagnosis of hypertension 01/14/2008 06/20/2016 documented as of this encounter (statuses as of 12/13/2023) [facility] of [facility] illness Narrative* Problem Noted Date Diagnosed Date Resolved Date Elevated blood pressure read ing without diagnosis of hypertension 01/14/2008 06/20/2016 documented as of this encounter (statuses as of 12/21/2023) [place] [address]-2008 History of Past illness Narrative* Problem Noted Date Diagnosed Date Resolved Date Elevated blood pressure read ing without diagnosis of hypertension 01/14/2008 06/20/2016 documented as of this encounter (statuses as of 12/21/2023) [place] [address]10-2008 History of Past illness Narrative* Problem Noted Date Diagnosed Date Resolved Date Elevated blood pressure read ing without diagnosis of hypertension 01/14/2008 06/20/2016 documented as of this encounter (statuses as of 01/25/2024) [facility]* Diagnosis Onset Date Resolution Status Cough acute [facility] Work Phone: Evaluation note* Diagnosis Essential hypertension- [...] of other medications documented in this encounter [facility]* Diagnosis Onset Date Resolution Status Cough acute 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 Chronic throat clearing 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 [facility] Work Phone: Evaluation note* Diagnosis Elevated fasting blood sugar- Primary Impaired fasting glucose Essential hypertension Unspecified essential hypertension Mixed hyperlipidemia Medication management Encounter for long-term (current) use of other medications Right thyroid nodule Nontoxic uninodular goiter [facility] Diagnosis Medicare annual wellness visit, [...] Abnormal chest sounds documented in this encounter [facility] CenterEvaluation noteNo assessment information availableWAkron Children's [facility] Work Phone: Evaluation note* Diagnosis Dysuria- Primary [facility] Diagnosis Burning with urination- Primary Dysuria documented in this encounter [facility]* Diagnosis Essential hypertension- Primary Unspecified essential [...] of other medications [facility]* Diagnosis URI with cough and congestion- Primary [facility]* Diagnosis COVID-19- Primary documented in this encounter [facility]* Diagnosis Pulmonary nodules Other nonspecific abnormal finding of lung field Lung nodules Other nonspecific abnormal finding of lung field Abnormal lung sounds Abnormal chest sounds [facility]* Diagnosis Rhinosinusitis- Primary Unspecified sinusitis (chronic) [facility]* Diagnosis Acute cough- Primary Post-nasal drainage Unspecified sinusitis (chronic) [facility]* Diagnosis Acute cough- Primary [facility]* Diagnosis Medicare annual wellness visit, [...] malignant neoplasms, colon documented in this encounter [facility]Eval[facility]* Diagnosis Acute cough- Primary Irregular heart beat Cardiac dysrhythmia, unspecified [facility]* Diagnosis Hypoxia- Primary Hypoxemia History of pulmonary embolus (PE) Personal history of pulmonary embolism Essential hypertension Unspecified essential hypertension Acute cystitis without hematuria Acute cystitis documented in this encounter [facility]* Diagnosis Dysuria- Primary Frequent UTI Urinary tract infection, site not specified [facility]* Diagnosis Multiple subsegmental pulmonary emboli without acute cor pulmonale (HCC)- Primary Acute hypoxemic respiratory failure (HCC) Chronic throat clearing Other symptoms involving head and neck [facility]* Diagnosis Dyspnea and respiratory abnormalities [R06.00, R06.89]- Primary Other dyspnea and respiratory abnormality [facility]* Diagnosis Dyspnea and respiratory abnormalities- Primary Other dyspnea and respiratory abnormality documented in this encounter [facility]* Diagnosis Chronic vaginitis- Primary Vaginitis and vulvovaginitis, unspecified [facility]* Diagnosis Chronic pulmonary embolism without acute cor pulmonale, unspecified pulmonary embolism type (HCC)- Primary History of pulmonary embolus (PE) Personal history of pulmonary embolism Encounter for screening mammogram for breast cancer [facility] Diagnosis Encounter for screening mammogram for breast cancer [facility]* Diagnosis Encounter for screening mammogram for breast cancer- Primary Abnormal mammogram of both breasts documented in this encounter [facility] note* Diagnosis Abnormal mammogram of both breasts- Primary [facility]* Diagnosis Abnormal mammogram of both breasts [facility] Diagnosis Abnormal mammogram of both breasts [facility]* Diagnosis Abnormal mammogram of both breasts- Primary [facility] Diagnosis History of pulmonary embolus (PE)- Primary Personal history of pulmonary embolism [facility] Diagnosis Acute cough [facility] Diagnosis Multiple subsegmental pulmonary emboli without acute cor pulmonale (HCC)- Primary Chronic anticoagulation Long-term (current) use of anticoagulants Hypoxemia [facility] Diagnosis History of pulmonary embolus (PE) Personal history of pulmonary embolism [facility]* Diagnosis Numbness and tingling Disturbance of skin sensation documented [facility] Diagnosis History of pulmonary embolus (PE) Personal history of pulmonary embolism [facility] Cough [facility]* Diagnosis Essential hypertension- Primary Unspecified essential [...] of other medications [facility] Diagnosis Abnormal mammogram of both breasts [facility] Diagnosis Abnormal mammogram of both breasts [facility] Diagnosis Abnormal mammogram of both breasts- Primary [facility]* Diagnosis Laceration of right upper extremity, subsequent encounter- Primary [facility]* Diagnosis Chronic pulmonary embolism without acute cor pulmonale, unspecified pulmonary embolism type (HCC)- Primary History of pulmonary embolus (PE) Personal history of pulmonary embolism Respiratory infection Other diseases of respiratory system, not elsewhere classified [facility] Diagnosis Exposure to influenza- Primary Contact with or exposure to other viral diseases URI, acute Acute upper respiratory infections of unspecified site [facility]* Diagnosis COVID-19- Primary [facility] Diagnosis Cough Acute non-recurrent maxillary sinusitis documented [facility]* Diagnosis History of pulmonary embolism- Primary Personal history of pulmonary embolism History of respiratory failure Personal history of other diseases of respiratory system [facility]* Diagnosis Herpes zoster without complication- Primary Herpes zoster without mention of complication [facility]* Diagnosis 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- Primary Long-term (current) use of anticoagulants [facility]* Diagnosis 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- Primary Long-term (current) use of anticoagulants History of pulmonary embolus (PE) Personal history of pulmonary embolism [facility]* Diagnosis History of pulmonary embolus (PE)- Primary Personal history of pulmonary embolism care home (current) use of anticoagulants Long-term (current) use of anticoagulants [facility]* Diagnosis History of pulmonary embolus (PE)- Primary Personal history of pulmonary embolism [employer] current use of anticoagulant therapy Long-term (current) use of anticoagulants Pulmonary embolism and infarction (HCC) Other pulmonary embolism and infarction documented [facility]* Diagnosis History of pulmonary embolus (PE)- Primary Personal history of pulmonary embolism 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 Long-term (current) use of anticoagulants documented [facility]* Diagnosis Urinary frequency- Primary documented [facility]* Diagnosis Acute UTI- Primary Urinary tract infection, site not specified documented in this encounter [facility] note* Diagnosis Vaginal discomfort- Primary Unspecified symptom associated with female genital organs Recurrent urinary tract infection Urinary tract infection, site not specified documented in this encounter [facility] note* Diagnosis Vaginal burning- Primary Other specified symptom associated with female genital organs documented in this encounter [facility] note* Diagnosis Vaginal itching- Primary Pruritus of genital organs documented [facility]* Diagnosis Onset Date Resolution Status Admit Date UTI (urinary tract infection) acute June 06, 2025 11:28am [facility] Work Phone: [facility]* Diagnosis History of pulmonary embolus (PE)- Primary Personal history of pulmonary embolism 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 Long-term (current) use of anticoagulants [facility] Diagnosis Viral upper respiratory infection- Primary Acute upper respiratory infections of unspecified site documented in this encounter [facility] note* Diagnosis Abnormal mammogram of both breasts documented in this encounter [facility] note* Diagnosis Abnormal mammogram of both breasts documented in this encounter [facility] note* Diagnosis Bacterial pneumonia- Primary Bacterial pneumonia, unspecified Abnormal lung sounds Abnormal chest sounds URI, acute Acute upper respiratory infections of unspecified site Abnormal lung sounds Abnormal chest sounds documented in this encounter [facility] note* Diagnosis Abnormal lung sounds Abnormal chest sounds documented in this encounter [facility] note* Diagnosis Abnormal mammogram- Primary Abnormal mammogram, unspecified documented in this encounter [facility] note* Diagnosis History of pulmonary embolus (PE)- Primary Personal history of pulmonary embolism care home (current) use of anticoagulants Long-term (current) use of anticoagulants documented in this encounter [facility] Discharge instructionsAdditional Instructions Follow-up with your doctors in outpatient setting obtain a stress test in the outpatient setting. Use Zofran as prescribed. Return for worsening symptoms or other concerns. Your blood work did not show any acute findings today. Your urine did not show any evidence of infection.[facility] Work Phone: Reason for referral (narrative)* Outpatient Procedure (Routine) - Authorized Specialty Diagnoses / Procedures Referred By Shelli davis Referred To [facility] Diagnoses Chronic cough Procedures NITRIC OXIDE, EXHALED NITRIC OXIDE GAS DETERMINATION Cabrera Landeros MD [address] [place] [address] [facility] [place] [address] [place] [address] Referral ID Status Reason Start Date Expiration Date Visits Requested Visits Authorized [id number] Authorized Auto-Generat ed Referral 04/19/2024 05/19/2025 1 1 * Outpatient Procedure (Routine) - Authorized Specialty Diagnoses / Procedures Referred By Shelli davis Referred To [facility] Diagnoses Chronic cough Procedures SPIROMETRY WITH DILATOR IF OBSTRUCTED BRNCDILAT RSPSE SPMTRY PRE&POST-BRNCDILAT ADMCabrera Worthy MD [address] [place] [address] Res[facility] [place] [address] [place] [address] Referral ID Status Reason Start Date Expiration Date Visits Requested Visits Authorized [id number] Authorized Auto-Generat ed Referral 04/19/2024 05/19/[address] [facility] for referral (narrative)* Diagnostic Procedure Only (Routine) - Authorized Specialty Diagnoses / Procedures Referred By Contac t Referred To Contact [facility] Diagnoses Encounter for screening mammogram for breast cancer Procedures NAFISA SCREENING W CHANEL SCREENING DIGITAL BREAST TOMOSYNTHESIS BI SCREENING MAMMOGRAPHY BI 2-VIEW BREAST INC CAD Lorri Clark DO [address] [place] [address] [facility] [address] [place] [address] Referral ID Status Reason Start Date Expiration Date Visits Requested Visits Authorized [id number] Authorized Auto-Generat ed Referral 05/21/2024 06/20/[address] [facility] for referral (narrative)* Diagnostic Procedure Only (Routine) - Authorized Specialty Diagnoses / Procedures Referred By Shelli t Referred To Contact [facility] Diagnoses Encounter for screening mammogram for breast cancer Abnormal mammogram of both breasts Procedures US BREAST LTD LEFT US BREAST UNI REAL TIME WITH IMAGE LIMITED Lorri Clark DO [address] [place] [address] [facility] [address] [place] [address] Referral ID Status Reason Start Date Expiration Date Visits Requested Visits Authorized [id number] Authorized Auto-Generat ed Referral 06/10/2024 07/10/2025 1 1 * Diagnostic Procedure Only (Routine) - Authorized Specialty Diagnoses / Procedures Referred By Contac t Referred To Contact [facility] Diagnoses Encounter for screening mammogram for breast cancer Abnormal mammogram of both breasts Procedures US BREAST LTD RIGHT US BREAST UNI REAL TIME WITH IMAGE LIMITED Lorri Clark, DO [address] [facility] [place] [address] [facility] [address] [place] [address] Referral ID Status Reason Start Date Expiration Date Visits Requested Visits Authorized [id number] Authorized Auto-Generat ed Referral 06/10/2024 07/10/2025 1 1 * Diagnostic Procedure Only (Routine) - Authorized Specialty Diagnoses / Procedures Referred By Contac t Referred To Contact [facility] Diagnoses Encounter for screening mammogram for breast cancer Abnormal mammogram of both breasts Procedures NAFISA DIAGNOSTIC BILATERAL DIAGNOSTIC MAMMOGRAPHY COMPUTER-AIDED DETCJ BI Lorri Clark, DO [address] [place] [address] [facility] [address] [place] [address] Referral ID Status Reason Start Date Expiration Date Visits Requested Visits Authorized [id number] Authorized Auto-Generat ed Referral 06/10/2024 07/10/[address] [facility] for referral (narrative)* Diagnostic Procedure Only (Routine) - Authorized Specialty Diagnoses / Procedures Referred By Contac t Referred To Contact [facility] Diagnoses Abnormal mammogram of both breasts Procedures US BREAST LTD RIGHT US BREAST UNI REAL TIME WITH IMAGE LIMITED Lorri Clark DO [address] [place] [address] [facility] [address] [place] [address] Referral ID Status Reason Start Date Expiration Date Visits Requested Visits Authorized [id number] Authorized Auto-Generat ed Referral 06/10/2024 07/10/2025 1 1 * Diagnostic Procedure Only (Routine) - Authorized Specialty Diagnoses / Procedures Referred By Contac t Referred To Contact [facility] Diagnoses Abnormal mammogram of both breasts Procedures US BREAST LTD LEFT US BREAST UNI REAL TIME WITH IMAGE LIMITED Lorri Clark, DO [address] [place] [address] [facility] [address] [place] [address] Referral ID Status Reason Start Date Expiration Date Visits Requested Visits Authorized [id number] Authorized Auto-Generat ed Referral 06/10/2024 07/10/2025 1 1 * Diagnostic Procedure Only (Routine) - Authorized Specialty Diagnoses / Procedures Referred By Contac t Referred To Contact [facility] Diagnoses Abnormal mammogram of both breasts Procedures NAFISA DIAGNOSTIC BILATERAL DIAGNOSTIC MAMMOGRAPHY COMPUTER-AIDED DETCJ BI Lorri Clark, DO [address] [place] [address] [facility] [address] [place] [address] Referral ID Status Reason Start Date Expiration Date Visits Requested Visits Authorized [id number] Authorized Auto-Generat ed Referral 06/10/2024 07/10/[address] [facility] for referral (narrative)* Diagnostic Procedure Only (Routine) - Closed Specialty Diagnoses / Procedures Referred By Contac t Referred To Contact [facility] Diagnoses Abnormal mammogram of both breasts Procedures US BREAST LTD RIGHT US BREAST UNI REAL TIME WITH IMAGE LIMITED Lorri Clark, DO [address] [place] [address] [facility] [address] [place] [address] Referral ID Status Reason Start Date Expiration Date V isits Requested Visits Authorized [id number] Closed Auto-Generate d Referral 06/10/2024 07/10/2025 1 1 * Diagnostic Procedure Only (Routine) - Closed Specialty Diagnoses / Procedures Referred By Contac t Referred To Contact [facility] Diagnoses Abnormal mammogram of both breasts Procedures US BREAST LTD LEFT US BREAST UNI REAL TIME WITH IMAGE LIMITED Lorri Clark, DO [address] [place] [address] [facility] [address] [place] [address] Referral ID Status Reason Start Date Expiration Date V isits Requested Visits Authorized [id number] Closed Auto-Generate d Referral 06/10/2024 07/10/[address] [facility] for referral (narrative)* Diagnostic Procedure Only (Routine) - New Request Specialty Diagnoses / Procedures Referred By Contac t Referred To Contact [facility] Diagnoses Abnormal mammogram of both breasts Procedures US BREAST LTD LEFT US BREAST UNI REAL TIME WITH IMAGE LIMITED Lorri Clark, DO [address] [place] [address] [facility] [address] [place] [address] Referral ID Status Reason Start Date Expiration Date Visits Requested Visits Authorized [id number] New Request Auto-Generat ed Referral 12/13/2024 07/12/2025 1 1 * Diagnostic Procedure Only (Routine) - New Request Specialty Diagnoses / Procedures Referred By Contac t Referred To Contact [facility] Diagnoses Abnormal mammogram of both breasts Procedures NAFISA DIAGNOSTIC BILATERAL DIAGNOSTIC MAMMOGRAPHY COMPUTER-AIDED DETCJ BI Lorri Clark, DO [address] [place] [address] [facility] [address] [place] [address] Referral ID Status Reason Start Date Expiration Date Visits Requested Visits Authorized [id number] New Request Auto-Generat ed Referral 12/13/2024 07/12/[address] [facility] for referral (narrative)No reason for referral information availableWAkron [facility] Work Phone: Reason for visit Narrative* Diagnostic Procedure Only (Routine) - Closed Specialty Diagnoses / Procedures Referred By Shelli t Referred To Contact [facility] Diagnoses Encounter for screening mammogram for breast cancer Procedures NAFISA SCREENING W CHANEL SCREENING DIGITAL BREAST TOMOSYNTHESIS BI SCREENING MAMMOGRAPHY BI 2-VIEW BREAST INC CAD Lorri Clark, DO [address] [place] [address] [facility] [address] [place] [address] Referral ID Status Reason Start Date Expiration Date V isits Requested Visits Authorized [id number] Closed Auto-Generate d Referral 05/21/2024 06/20/[address] [facility] for visit Narrative* Diagnostic Procedure Only (Routine) - Closed Specialty Diagnoses / Procedures Referred By Contac t Referred To Contact [facility] Diagnoses Abnormal mammogram of both breasts Procedures NAFISA DIAGNOSTIC BILATERAL DIAGNOSTIC MAMMOGRAPHY COMPUTER-AIDED DETCJ Lorri Clark, DO [address] [place] [address] [facility] [address] [place] [address] Referral ID Status Reason Start Date Expiration Date V isits Requested Visits Authorized [id number] Closed Auto-Generate d Referral 06/10/2024 07/10/[address] [facility] for visit Narrative* Diagnostic Procedure Only (Routine) - Closed Specialty Diagnoses / Procedures Referred By Shelli t Referred To Contact [facility] Diagnoses Abnormal mammogram of both breasts Procedures NAFIAS DIAGNOSTIC BILATERAL DIAGNOSTIC MAMMOGRAPHY COMPUTER-AIDED DETCJ Lorri Clark, DO [address] [place] [address] Phone: tel: fax: [facility] [address] [place] [address] Referral ID Status Reason Start Date Expiration Date V isits Requested Visits Authorized [id number] Closed Auto-Generate d Referral 12/13/2024 07/12/[address] [facility] for visit Narrative* Diagnostic Procedure Only (Routine) - Closed Specialty Diagnoses / Procedures Referred By Contac t Referred To Contact [facility] Diagnoses Abnormal mammogram of both breasts Procedures NAFISA DIAG W CHANEL LEFT DIGITAL BREAST TOMOSYNTHESIS UNILATERAL DIAGNOSTIC MAMMOGRAPHY COMPUTER-AIDED DETCJ UNI Divyaishmael Lorri Diaz, DO [address] [place] [address] Phone: tel: fax: [facility] [address] [place] [address] Referral ID Status Reason Start Date Expiration Date V isits Requested Visits Authorized [id number] Closed Auto-Generate d Referral 01/02/2025 02/01/2026 1 1 [facility] Diagnostic Procedure Only (Routine) - Closed Specialty Diagnoses / Procedures Referred By Shelli t Referred To Contact [facility] Diagnoses Abnormal mammogram of both breasts Procedures US BREAST LTD LEFT US BREAST UNI REAL TIME WITH IMAGE LIMITED Lorri Clark, DO [address] [place] [address] Phone: tel: fax: [facility] [address] [place] [address] Referral ID Status Reason Start Date Expiration Date V isits Requested Visits Authorized [id number] Closed Auto-Generate d Referral 01/02/2025 02/01/2026 1 1 [facility] Chief Complaint and Reason for Visit Chief Complaint Gastroesophageal ref lux disease (GERD) INT LABS Reason for Visit Cough Chief Complaint Gastroesophageal ref lux disease (GERD) INT LABS 2 WK FU THROAT CLEARING, ? 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 Chief Complaint UTI Chief Complaint UTI COMPLAINT Chief Complaint Admit Date DIZZINESS April 13, 2025 12:18 pm Chief Complaint Admit Date DIZZINESS April 13, 2025 12:18 pm Urinary tract infection June 06, 2025 11:28am Reason for Visit Admit Date UTI (urinary tract infection) June 11:28am Chief Complaint Admit Date DIZZINESS April 13, 2025 12:18 pm Urinary tract infection June 06, 2025 11:28am GENERAL ILLNESS July 22, 2025 11:36am WOUND July 28, 2025 4:37pm Reason for Visit Admit Date Acute vaginitis June 06, 2025 11: 28am UTI (urinary tract infection) June 11:28am Vaginal atrophy June 06, 2025 11: 28am Chief Complaint Admit Date Urinary tract infection June 06, 2025 11:28am GENERAL ILLNESS July 22, 2025 11:36am WOUND July 28, 2025 4:37pm Nausea/vomiting August 18, 2025 2 :51pm UTI/needs to discuss ABX with Dr. Nolan quiñones August 22, 2025 2:00pm UA C&S September 01, 2025 3 :13pm Reason for Visit Admit Date Acute vaginitis June 06, 2025 11: 28am UTI (urinary tract infection) June 11:28am Vaginal atrophy June 06, 2025 11: 28am Intermittent dysphagia August 18 2:51pm Nausea and vomiting August 18, 2025 2 :51pm Intermittent dysphagia August 22 2:00pm UTI (urinary tract infection) August 222024 2:00pm Vaginal atrophy August 22, 2025 2 :00pm Family History No Family History Records Found Relationship Condition Age at Onset Recorded Date/T miguelina mother Cardiac disease Unknown father Cardiac disease Unknown brother Cardiac disease Unknown Coronary artery disease Unknown Advance Directives No Advanced Directives Records Found Advance Directive Response Recorded Date/ Time Living Will Yes January 19, 2019 7:50am Power of Ethical Hacker Yes January 19 7:50am Advance Directive Response Recorded Date/ Time Living Will Yes April 07, 2022 4 :40pm Power of Ethical Hacker Yes April 07, 2022 4:40pm Documents on File Type Date Recorded 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 Administrator Expl anation Advance Directive(s) 06/22/2020 9:10 AM Advance Directive(s) 06/16/2020 3:03 PM Advance Directive(s) 12/21/2006 12:00 AM Advance Directive Response Recorded Date/ Time Name of Medical Power of Ethical Hacker POA coy Ferris, dgtr Patti Troy April 07, 2022 4:40pm Living Will Yes April 07, 2022 4 :40pm Power of Ethical Hacker Yes April 07, 2022 4:40pm Documents on File Type Date Recorded 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 Administrator Expl anation Advance Directive(s) 12/21/2006 Documents on File Type Date Recorded 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 Administrator Expl anation Advance Directive(s) 12/21/2006 Advance Directive Response Recorded Date/ Time Living Will No May 12, 2023 8 :15pm Power of Ethical Hacker No May 12, 2023 8:15pm Advance Directive Response Recorded Date/ Time Living Will Yes May 16, 2023 2:26pm Power of Ethical Hacker Yes May 16 2:26pm Name of Medical Power of Ethical Hacker NATE FERRIS May 16, 2023 2:26pm Advance Directive Response Recorded Date/ Time Name of Medical Power of Ethical Hacker Jason November 08, 2023 4:58pm Living Will Yes November 08 4:58pm Power of Ethical Hacker Yes November 08 4:58pm Advance Directive Response Recorded Date/ Time Do you have a Healthcare Power of Ethical Hacker? Yes April 13, 2025 12:49pm Name of Medical Power of Ethical Hacker Aamir Ferris April 13, 2025 12:49pm Advance Directive Response Recorded Date/ Time Do you have a Healthcare Pow er of Ethical Hacker? Yes July 22, 2025 12:17pm Do you have a Healthcare Pow er of Ethical Hacker? Yes April 13, 2025 12:49pm Name of Medical Power of Ethical Hacker Aamir Ferris April 13, 2025 12:49pm Advance Directive Response Recorded Date/ Time Do you have a Healthcare Power of Ethical Hacker? Yes July 22, 2025 12:17pm Chief Complaint New patient visit Summary Purpose Reason for Referral Specialty Diagnoses / Procedures Referred By Shelli t Referred To Contact CT IMAGING Diagnoses Pulmonary nodules Lung nodules Abnormal lung sounds Procedures CT CHEST WO IVCON DIAGNOSTIC COMPUTED TOMOGRAPHY THORAX W/O Rangel Bae MD [address] [place] [address] Ct Imaging Referral ID Status Reason Start Date Expiration Date Visits Requested Visits Authorized [id number] Authorized Auto-Generat ed Referral 01/16/2023 02/15/2024 1 1 Specialty Diagnoses / Procedures Referred By Shelli davis Referred To Contact CT IMAGING Diagnoses Pulmonary nodules Lung nodules Abnormal lung sounds Procedures CT CHEST WO IVCON DIAGNOSTIC COMPUTED TOMOGRAPHY THORAX W/O Rangel Bae MD [address] [place] [address] [place] [address] Referral ID Status Reason Start Date Expiration Date V isits Requested Visits Authorized [id number] Closed Auto-Generate d Referral 01/16/2023 02/15/2024 1 1 Specialty Diagnoses / Procedures Referred By Contac t Referred To Contact Hematology Diagnoses History of pulmonary embolus (PE) Procedures CONSULT TO HEMATOLOGY OFFICE/OUTPATIENT [facility] 60 MINUTES aRngel Bonilla MD [address] [place] [address] Referral ID Status Reason Start Date Expiration Date Visits Requested Visits Authorized [id number] Authorized PCP Requested Referral 04/15/2024 04/15/2025 1 [...] or prosecute any alcohol or drug abuse patient.[facility] Center[facility] the event this information is protected by the Federal Confidentiality of Alcohol and Drug Abuse Patient Records regulations: The Federal rules restrict any use of the information to criminally investigate or prosecute any alcohol or drug abuse patient.[facility] the event this information is protected by the Federal Confidentiality of Alcohol and Drug Abuse Patient Records regulations: The Federal rules restrict any use of the information to criminally investigate or prosecute any alcohol or drug abuse patient.[facility] CenterIn the event this information is protected by the Federal Confidentiality of Alcohol and Drug Abuse Patient Records regulations: The Federal rules restrict any use of the information to criminally investigate or prosecute any alcohol or drug abuse patient.[facility] CenterIn the event this information is protected by the Federal Confidentiality of Alcohol and Drug Abuse Patient Records regulations: The Federal rules restrict any use of the information to criminally investigate or prosecute any alcohol or drug abuse patient.[facility] CenterIn the event this information is protected by the Federal Confidentiality of Alcohol and Drug Abuse Patient Records regulations: The Federal rules restrict any use of the information to criminally investigate or prosecute any alcohol or drug abuse patient.[facility] CenterIn the event this information is protected by the Federal Confidentiality of Alcohol and Drug Abuse Patient Records regulations: The Federal rules restrict any use of the information to criminally investigate or prosecute any alcohol or drug abuse patient.[facility] CenterIn the event this information is protected by the Federal Confidentiality of Alcohol and Drug Abuse Patient Records regulations: The Federal rules restrict any use of the information to criminally investigate or prosecute any alcohol or drug abuse patient.[facility] CenterIn the event this information is protected by the Federal Confidentiality of Alcohol and Drug Abuse Patient Records regulations: The Federal rules restrict any use of the information to criminally investigate or prosecute any alcohol or drug abuse patient.[facility] CenterIn the event this information is protected by the Federal Confidentiality of Alcohol and Drug Abuse Patient Records regulations: The Federal rules restrict any use of the information to criminally investigate or prosecute any alcohol or drug abuse patient.[facility] CenterIn the event this information is protected by the Federal Confidentiality of Alcohol and Drug Abuse Patient Records regulations: The Federal rules restrict any use of the information to criminally investigate or prosecute any alcohol or drug abuse patient.[facility] CenterIn the event this information is protected by the Federal Confidentiality of Alcohol and Drug Abuse Patient Records regulations: The Federal rules restrict any use of the information to criminally investigate or prosecute any alcohol or drug abuse patient.[facility] CenterIn the event this information is protected by the Federal Confidentiality of Alcohol and Drug Abuse Patient Records regulations: The Federal rules restrict any use of the information to criminally investigate or prosecute any alcohol or drug abuse patient.[facility] CenterIn the event this information is protected by the Federal Confidentiality of Alcohol and Drug Abuse Patient Records regulations: The Federal rules restrict any use of the information to criminally investigate or prosecute any alcohol or drug abuse patient.[facility] CenterIn the event this information is protected by the Federal Confidentiality of Alcohol and Drug Abuse Patient Records regulations: The Federal rules restrict any use of the information to criminally investigate or prosecute any alcohol or drug abuse patient.[facility] CenterIn the event this information is protected by the Federal Confidentiality of Alcohol and Drug Abuse Patient Records regulations: The Federal rules restrict any use of the information to criminally investigate or prosecute any alcohol or drug abuse patient.[facility] CenterIn the event this information is protected by the Federal Confidentiality of Alcohol and Drug Abuse Patient Records regulations: The Federal rules restrict any use of the information to criminally investigate or prosecute any alcohol or drug abuse patient.[facility] CenterIn the event this information is protected by the Federal Confidentiality of Alcohol and Drug Abuse Patient Records regulations: The Federal rules restrict any use of the information to criminally investigate or prosecute any alcohol or drug abuse patient.[facility] CenterIn the event this information is protected by the Federal Confidentiality of Alcohol and Drug Abuse Patient Records regulations: The Federal rules restrict any use of the information to criminally investigate or prosecute any alcohol or drug abuse patient.[facility] CenterIn the event this information is protected by the Federal Confidentiality of Alcohol and Drug Abuse Patient Records regulations: The Federal rules restrict any use of the information to criminally investigate or prosecute any alcohol or drug abuse patient.[facility] CenterIn the event this information is protected by the Federal Confidentiality of Alcohol and Drug Abuse Patient Records regulations: The Federal rules restrict any use of the information to criminally investigate or prosecute any alcohol or drug abuse patient.[facility] CenterIn the event this information is protected by the Federal Confidentiality of Alcohol and Drug Abuse Patient Records regulations: The Federal rules restrict any use of the information to criminally investigate or prosecute any alcohol or drug abuse patient.[facility] CenterIn the event this information is protected by the Federal Confidentiality of Alcohol and Drug Abuse Patient Records regulations: The Federal rules restrict any use of the information to criminally investigate or prosecute any alcohol or drug abuse patient.[facility] CenterIn the event this information is protected by the Federal Confidentiality of Alcohol and Drug Abuse Patient Records regulations: The Federal rules restrict any use of the information to criminally investigate or prosecute any alcohol or drug abuse patient.[facility] CenterIn the event this information is protected by the Federal Confidentiality of Alcohol and Drug Abuse Patient Records regulations: The Federal rules restrict any use of the information to criminally investigate or prosecute any alcohol or drug abuse patient.[facility] CenterIn the event this information is protected by the Federal Confidentiality of Alcohol and Drug Abuse Patient Records regulations: The Federal rules restrict any use of the information to criminally investigate or prosecute any alcohol or drug abuse patient.[facility] CenterIn the event this information is protected by the Federal Confidentiality of Alcohol and Drug Abuse Patient Records regulations: The Federal rules restrict any use of the information to criminally investigate or prosecute any alcohol or drug abuse patient.[facility] CenterIn the event this information is protected by the Federal Confidentiality of Alcohol and Drug Abuse Patient Records regulations: The Federal rules restrict any use of the information to criminally investigate or prosecute any alcohol or drug abuse patient.[facility] CenterIn the event this information is protected by the Federal Confidentiality of Alcohol and Drug Abuse Patient Records regulations: The Federal rules restrict any use of the information to criminally investigate or prosecute any alcohol or drug abuse patient.[facility] CenterIn the event this information is protected by the Federal Confidentiality of Alcohol and Drug Abuse Patient Records regulations: The Federal rules restrict any use of the information to criminally investigate or prosecute any alcohol or drug abuse patient.[facility] CenterIn the event this information is protected by the Federal Confidentiality of Alcohol and Drug Abuse Patient Records regulations: The Federal rules restrict any use of the information to criminally investigate or prosecute any alcohol or drug abuse patient.[facility] CenterIn the event this information is protected by the Federal Confidentiality of Alcohol and Drug Abuse Patient Records regulations: The Federal rules restrict any use of the information to criminally investigate or prosecute any alcohol or drug abuse patient.[facility] CenterIn the event this information is protected by the Federal Confidentiality of Alcohol and Drug Abuse Patient Records regulations: The Federal rules restrict any use of the information to criminally investigate or prosecute any alcohol or drug abuse patient.[facility] CenterIn the event this information is protected by the Federal Confidentiality of Alcohol and Drug Abuse Patient Records regulations: The Federal rules restrict any use of the information to criminally investigate or prosecute any alcohol or drug abuse patient.[facility] CenterIn the event this information is protected by the Federal Confidentiality of Alcohol and Drug Abuse Patient Records regulations: The Federal rules restrict any use of the information to criminally investigate or prosecute any alcohol or drug abuse patient.[facility] CenterIn the event this information is protected by the Federal Confidentiality of Alcohol and Drug Abuse Patient Records regulations: The Federal rules restrict any use of the information to criminally investigate or prosecute any alcohol or drug abuse patient.[facility] CenterIn the event this information is protected by the Federal Confidentiality of Alcohol and Drug Abuse Patient Records regulations: The Federal rules restrict any use of the information to criminally investigate or prosecute any alcohol or drug abuse patient.[facility] CenterIn the event this information is protected by the Federal Confidentiality of Alcohol and Drug Abuse Patient Records regulations: The Federal rules restrict any use of the information to criminally investigate or prosecute any alcohol or drug abuse patient.[facility] CenterIn the event this information is protected by the Federal Confidentiality of Alcohol and Drug Abuse Patient Records regulations: The Federal rules restrict any use of the information to criminally investigate or prosecute any alcohol or drug abuse patient.[facility] CenterIn the event this information is protected by the Federal Confidentiality of Alcohol and Drug Abuse Patient Records regulations: The Federal rules restrict any use of the information to criminally investigate or prosecute any alcohol or drug abuse patient.[facility]In the event this information is protected by the Federal Confidentiality of Alcohol and Drug Abuse Patient Records regulations: The Federal rules restrict any use of the information to criminally investigate or prosecute any alcohol or drug abuse patient.[facility] CenterIn the event this information is protected by the Federal Confidentiality of Alcohol and Drug Abuse Patient Records regulations: The Federal rules restrict any use of the information to criminally investigate or prosecute any alcohol or drug abuse patient.[facility] CenterIn the event this information is protected by the Federal Confidentiality of Alcohol and Drug Abuse Patient Records regulations: The Federal rules restrict any use of the information to criminally investigate or prosecute any alcohol or drug abuse patient.[facility] CenterIn the event this information is protected by the Federal Confidentiality of Alcohol and Drug Abuse Patient Records regulations: The Federal rules restrict any use of the information to criminally investigate or prosecute any alcohol or drug abuse patient.[facility] CenterIn the event this information is protected by the Federal Confidentiality of Alcohol and Drug Abuse Patient Records regulations: The Federal rules restrict any use of the information to criminally investigate or prosecute any alcohol or drug abuse patient.[facility] CenterIn the event this information is protected by the Federal Confidentiality of Alcohol and Drug Abuse Patient Records regulations: The Federal rules restrict any use of the information to criminally investigate or prosecute any alcohol or drug abuse patient.[facility] CenterIn the event this information is protected by the Federal Confidentiality of Alcohol and Drug Abuse Patient Records regulations: The Federal rules restrict any use of the information to criminally investigate or prosecute any alcohol or drug abuse patient.[facility] CenterIn the event this information is protected by the Federal Confidentiality of Alcohol and Drug Abuse Patient Records regulations: The Federal rules restrict any use of the information to criminally investigate or prosecute any alcohol or drug abuse patient.[facility] CenterIn the event this information is protected by the Federal Confidentiality of Alcohol and Drug Abuse Patient Records regulations: The Federal rules restrict any use of the information to criminally investigate or prosecute any alcohol or drug abuse patient.[facility] CenterIn the event this information is protected by the Federal Confidentiality of Alcohol and Drug Abuse Patient Records regulations: The Federal rules restrict any use of the information to criminally investigate or prosecute any alcohol or drug abuse patient.[facility] CenterIn the event this information is protected by the Federal Confidentiality of Alcohol and Drug Abuse Patient Records regulations: The Federal rules restrict any use of the information to criminally investigate or prosecute any alcohol or drug abuse patient.[facility] CenterIn the event this information is protected by the Federal Confidentiality of Alcohol and Drug Abuse Patient Records regulations: The Federal rules restrict any use of the information to criminally investigate or prosecute any alcohol or drug abuse patient.[facility] CenterIn the event this information is protected by the Federal Confidentiality of Alcohol and Drug Abuse Patient Records regulations: The Federal rules restrict any use of the information to criminally investigate or prosecute any alcohol or drug abuse patient.[facility] CenterIn the event this information is protected by the Federal Confidentiality of Alcohol and Drug Abuse Patient Records regulations: The Federal rules restrict any use of the information to criminally investigate or prosecute any alcohol or drug abuse patient.[facility] CenterIn the event this information is protected by the Federal Confidentiality of Alcohol and Drug Abuse Patient Records regulations: The Federal rules restrict any use of the information to criminally investigate or prosecute any alcohol or drug abuse patient.[facility] CenterIn the event this information is protected by the Federal Confidentiality of Alcohol and Drug Abuse Patient Records regulations: The Federal rules restrict any use of the information to criminally investigate or prosecute any alcohol or drug abuse patient.[facility] CenterIn the event this information is protected by the Federal Confidentiality of Alcohol and Drug Abuse Patient Records regulations: The Federal rules restrict any use of the information to criminally investigate or prosecute any alcohol or drug abuse patient.[facility] CenterIn the event this information is protected by the Federal Confidentiality of Alcohol and Drug Abuse Patient Records regulations: The Federal rules restrict any use of the information to criminally investigate or prosecute any alcohol or drug abuse patient.[facility] CenterIn the event this information is protected by the Federal Confidentiality of Alcohol and Drug Abuse Patient Records regulations: The Federal rules restrict any use of the information to criminally investigate or prosecute any alcohol or drug abuse patient.[facility] CenterIn the event this information is protected by the Federal Confidentiality of Alcohol and Drug Abuse Patient Records regulations: The Federal rules restrict any use of the information to criminally investigate or prosecute any alcohol or drug abuse patient.[facility] CenterIn the event this information is protected by the Federal Confidentiality of Alcohol and Drug Abuse Patient Records regulations: The Federal rules restrict any use of the information to criminally investigate or prosecute any alcohol or drug abuse patient.[facility] CenterIn the event this information is protected by the Federal Confidentiality of Alcohol and Drug Abuse Patient Records regulations: The Federal rules restrict any use of the information to criminally investigate or prosecute any alcohol or drug abuse patient.[facility] CenterIn the event this information is protected by the Federal Confidentiality of Alcohol and Drug Abuse Patient Records regulations: The Federal rules restrict any use of the information to criminally investigate or prosecute any alcohol or drug abuse patient.[facility] CenterIn the event this information is protected by the Federal Confidentiality of Alcohol and Drug Abuse Patient Records regulations: The Federal rules restrict any use of the information to criminally investigate or prosecute any alcohol or drug abuse patient.[facility] CenterIn the event this information is protected by the Federal Confidentiality of Alcohol and Drug Abuse Patient Records regulations: The Federal rules restrict any use of the information to criminally investigate or prosecute any alcohol or drug abuse patient.[facility] CenterIn the event this information is protected by the Federal Confidentiality of Alcohol and Drug Abuse Patient Records regulations: The Federal rules restrict any use of the information to criminally investigate or prosecute any alcohol or drug abuse patient.[facility] CenterIn the event this information is protected by the Federal Confidentiality of Alcohol and Drug Abuse Patient Records regulations: The Federal rules restrict any use of the information to criminally investigate or prosecute any alcohol or drug abuse patient.[facility] CenterIn the event this information is protected by the Federal Confidentiality of Alcohol and Drug Abuse Patient Records regulations: The Federal rules restrict any use of the information to criminally investigate or prosecute any alcohol or drug abuse patient.[facility] CenterIn the event this information is protected by the Federal Confidentiality of Alcohol and Drug Abuse Patient Records regulations: The Federal rules restrict any use of the information to criminally investigate or prosecute any alcohol or drug abuse patient.[facility] CenterIn the event this information is protected by the Federal Confidentiality of Alcohol and Drug Abuse Patient Records regulations: The Federal rules restrict any use of the information to criminally investigate or prosecute any alcohol or drug abuse patient.[facility] CenterIn the event this information is protected by the Federal Confidentiality of Alcohol and Drug Abuse Patient Records regulations: The Federal rules restrict any use of the information to criminally investigate or prosecute any alcohol or drug abuse patient.[facility] CenterIn the event this information is protected by the Federal Confidentiality of Alcohol and Drug Abuse Patient Records regulations: The Federal rules restrict any use of the information to criminally investigate or prosecute any alcohol or drug abuse patient.[facility] CenterIn the event this information is protected by the Federal Confidentiality of Alcohol and Drug Abuse Patient Records regulations: The Federal rules restrict any use of the information to criminally investigate or prosecute any alcohol or drug abuse patient.[facility] CenterIn the event this information is protected by the Federal Confidentiality of Alcohol and Drug Abuse Patient Records regulations: The Federal rules restrict any use of the information to criminally investigate or prosecute any alcohol or drug abuse patient.[facility] CenterIn the event this information is protected by the Federal Confidentiality of Alcohol and Drug Abuse Patient Records regulations: The Federal rules restrict any use of the information to criminally investigate or prosecute any alcohol or drug abuse patient.[facility] CenterIn the event this information is protected by the Federal Confidentiality of Alcohol and Drug Abuse Patient Records regulations: The Federal rules restrict any use of the information to criminally investigate or prosecute any alcohol or drug abuse patient.[facility] CenterIn the event this information is protected by the Federal Confidentiality of Alcohol and Drug Abuse Patient Records regulations: The Federal rules restrict any use of the information to criminally investigate or prosecute any alcohol or drug abuse patient.[facility] CenterIn the event this information is protected by the Federal Confidentiality of Alcohol and Drug Abuse Patient Records regulations: The Federal rules restrict any use of the information to criminally investigate or prosecute any alcohol or drug abuse patient.[facility] CenterIn the event this information is protected by the Federal Confidentiality of Alcohol and Drug Abuse Patient Records regulations: The Federal rules restrict any use of the information to criminally investigate or prosecute any alcohol or drug abuse patient.[facility] CenterIn the event this information is protected by the Federal Confidentiality of Alcohol and Drug Abuse Patient Records regulations: The Federal rules restrict any use of the information to criminally investigate or prosecute any alcohol or drug abuse patient.[facility] CenterIn the event this information is protected by the Federal Confidentiality of Alcohol and Drug Abuse Patient Records regulations: The Federal rules restrict any use of the information to criminally investigate or prosecute any alcohol or drug abuse patient.[facility] CenterIn the event this information is protected by the Federal Confidentiality of Alcohol and Drug Abuse Patient Records regulations: The Federal rules restrict any use of the information to criminally investigate or prosecute any alcohol or drug abuse patient.[facility] CenterIn the event this information is protected by the Federal Confidentiality of Alcohol and Drug Abuse Patient Records regulations: The Federal rules restrict any use of the information to criminally investigate or prosecute any alcohol or drug abuse patient.[facility] CenterIn the event this information is protected by the Federal Confidentiality of Alcohol and Drug Abuse Patient Records regulations: The Federal rules restrict any use of the information to criminally investigate or prosecute any alcohol or drug abuse patient.[facility] CenterIn the event this information is protected by the Federal Confidentiality of Alcohol and Drug Abuse Patient Records regulations: The Federal rules restrict any use of the information to criminally investigate or prosecute any alcohol or drug abuse patient.[facility] CenterIn the event this information is protected by the Federal Confidentiality of Alcohol and Drug Abuse Patient Records regulations: The Federal rules restrict any use of the information to criminally investigate or prosecute any alcohol or drug abuse patient.[facility] CenterIn the event this information is protected by the Federal Confidentiality of Alcohol and Drug Abuse Patient Records regulations: The Federal rules restrict any use of the information to criminally investigate or prosecute any alcohol or drug abuse patient.[facility] CenterIn the event this information is protected by the Federal Confidentiality of Alcohol and Drug Abuse Patient Records regulations: The Federal rules restrict any use of the information to criminally investigate or prosecute any alcohol or drug abuse patient.[facility] CenterIn the event this information is protected by the Federal Confidentiality of Alcohol and Drug Abuse Patient Records regulations: The Federal rules restrict any use of the information to criminally investigate or prosecute any alcohol or drug abuse patient.[facility] CenterIn the event this information is protected by the Federal Confidentiality of Alcohol and Drug Abuse Patient Records regulations: The Federal rules restrict any use of the information to criminally investigate or prosecute any alcohol or drug abuse patient.[facility]In the event this information is protected by the Federal Confidentiality of Alcohol and Drug Abuse Patient Records regulations: The Federal rules restrict any use of the information to criminally investigate or prosecute any alcohol or drug abuse patient.[facility] CenterIn the event this information is protected by the Federal Confidentiality of Alcohol and Drug Abuse Patient Records regulations: The Federal rules restrict any use of the information to criminally investigate or prosecute any alcohol or drug abuse patient.[facility] CenterIn the event this information is protected by the Federal Confidentiality of Alcohol and Drug Abuse Patient Records regulations: The Federal rules restrict any use of the information to criminally investigate or prosecute any alcohol or drug abuse patient.[facility] CenterIn the event this information is protected by the Federal Confidentiality of Alcohol and Drug Abuse Patient Records regulations: The Federal rules restrict any use of the information to criminally investigate or prosecute any alcohol or drug abuse patient.[facility] CenterIn the event this information is protected by the Federal Confidentiality of Alcohol and Drug Abuse Patient Records regulations: The Federal rules restrict any use of the information to criminally investigate or prosecute any alcohol or drug abuse patient.[facility] CenterIn the event this information is protected by the Federal Confidentiality of Alcohol and Drug Abuse Patient Records regulations: The Federal rules restrict any use of the information to criminally investigate or prosecute any alcohol or drug abuse patient.[facility] CenterIn the event this information is protected by the Federal Confidentiality of Alcohol and Drug Abuse Patient Records regulations: The Federal rules restrict any use of the information to criminally investigate or prosecute any alcohol or drug abuse patient.[facility] CenterIn the event this information is protected by the Federal Confidentiality of Alcohol and Drug Abuse Patient Records regulations: The Federal rules restrict any use of the information to criminally investigate or prosecute any alcohol or drug abuse patient.[facility] CenterIn the event this information is protected by the Federal Confidentiality of Alcohol and Drug Abuse Patient Records regulations: The Federal rules restrict any use of the information to criminally investigate or prosecute any alcohol or drug abuse patient.[facility] CenterIn the event this information is protected by the Federal Confidentiality of Alcohol and Drug Abuse Patient Records regulations: The Federal rules restrict any use of the information to criminally investigate or prosecute any alcohol or drug abuse patient.[facility] CenterIn the event this information is protected by the Federal Confidentiality of Alcohol and Drug Abuse Patient Records regulations: The Federal rules restrict any use of the information to criminally investigate or prosecute any alcohol or drug abuse patient.[facility] CenterIn the event this information is protected by the Federal Confidentiality of Alcohol and Drug Abuse Patient Records regulations: The Federal rules restrict any use of the information to criminally investigate or prosecute any alcohol or drug abuse patient.[facility] CenterIn the event this information is protected by the Federal Confidentiality of Alcohol and Drug Abuse Patient Records regulations: The Federal rules restrict any use of the information to criminally investigate or prosecute any alcohol or drug abuse patient.[facility] CenterIn the event this information is protected by the Federal Confidentiality of Alcohol and Drug Abuse Patient Records regulations: The Federal rules restrict any use of the information to criminally investigate or prosecute any alcohol or drug abuse patient.[facility] CenterIn the event this information is protected by the Federal Confidentiality of Alcohol and Drug Abuse Patient Records regulations: The Federal rules restrict any use of the information to criminally investigate or prosecute any alcohol or drug abuse patient.[facility] CenterIn the event this information is protected by the Federal Confidentiality of Alcohol and Drug Abuse Patient Records regulations: The Federal rules restrict any use of the information to criminally investigate or prosecute any alcohol or drug abuse patient.[facility] CenterIn the event this information is protected by the Federal Confidentiality of Alcohol and Drug Abuse Patient Records regulations: The Federal rules restrict any use of the information to criminally investigate or prosecute any alcohol or drug abuse patient.[facility] CenterIn the event this information is protected by the Federal Confidentiality of Alcohol and Drug Abuse Patient Records regulations: The Federal rules restrict any use of the information to criminally investigate or prosecute any alcohol or drug abuse patient.[facility] CenterIn the event this information is protected by the Federal Confidentiality of Alcohol and Drug Abuse Patient Records regulations: The Federal rules restrict any use of the information to criminally investigate or prosecute any alcohol or drug abuse patient.[facility] CenterIn the event this information is protected by the Federal Confidentiality of Alcohol and Drug Abuse Patient Records regulations: The Federal rules restrict any use of the information to criminally investigate or prosecute any alcohol or drug abuse patient.[facility] CenterIn the event this information is protected by the Federal Confidentiality of Alcohol and Drug Abuse Patient Records regulations: The Federal rules restrict any use of the information to criminally investigate or prosecute any alcohol or drug abuse patient.[facility] CenterIn the event this information is protected by the Federal Confidentiality of Alcohol and Drug Abuse Patient Records regulations: The Federal rules restrict any use of the information to criminally investigate or prosecute any alcohol or drug abuse patient.[facility] CenterIn the event this information is protected by the Federal Confidentiality of Alcohol and Drug Abuse Patient Records regulations: The Federal rules restrict any use of the information to criminally investigate or prosecute any alcohol or drug abuse patient.[facility] CenterIn the event this information is protected by the Federal Confidentiality of Alcohol and Drug Abuse Patient Records regulations: The Federal rules restrict any use of the information to criminally investigate or prosecute any alcohol or drug abuse patient.[facility] CenterIn the event this information is protected by the Federal Confidentiality of Alcohol and Drug Abuse Patient Records regulations: The Federal rules restrict any use of the information to criminally investigate or prosecute any alcohol or drug abuse patient.[facility] CenterIn the event this information is protected by the Federal Confidentiality of Alcohol and Drug Abuse Patient Records regulations: The Federal rules restrict any use of the information to criminally investigate or prosecute any alcohol or drug abuse patient.[facility] CenterIn the event this information is protected by the Federal Confidentiality of Alcohol and Drug Abuse Patient Records regulations: The Federal rules restrict any use of the information to criminally investigate or prosecute any alcohol or drug abuse patient.[facility] CenterIn the event this information is protected by the Federal Confidentiality of Alcohol and Drug Abuse Patient Records regulations: The Federal rules restrict any use of the information to criminally investigate or prosecute any alcohol or drug abuse patient.[facility] CenterIn the event this information is protected by the Federal Confidentiality of Alcohol and Drug Abuse Patient Records regulations: The Federal rules restrict any use of the information to criminally investigate or prosecute any alcohol or drug abuse patient.[facility] CenterIn the event this information is protected by the Federal Confidentiality of Alcohol and Drug Abuse Patient Records regulations: The Federal rules restrict any use of the information to criminally investigate or prosecute any alcohol or drug abuse patient.[facility] CenterIn the event this information is protected by the Federal Confidentiality of Alcohol and Drug Abuse Patient Records regulations: The Federal rules restrict any use of the information to criminally investigate or prosecute any alcohol or drug abuse patient.[facility] CenterIn the event this information is protected by the Federal Confidentiality of Alcohol and Drug Abuse Patient Records regulations: The Federal rules restrict any use of the information to criminally investigate or prosecute any alcohol or drug abuse patient.[facility] CenterIn the event this information is protected by the Federal Confidentiality of Alcohol and Drug Abuse Patient Records regulations: The Federal rules restrict any use of the information to criminally investigate or prosecute any alcohol or drug abuse patient.[facility] CenterIn the event this information is protected by the Federal Confidentiality of Alcohol and Drug Abuse Patient Records regulations: The Federal rules restrict any use of the information to criminally investigate or prosecute any alcohol or drug abuse patient.[facility] CenterIn the event this information is protected by the Federal Confidentiality of Alcohol and Drug Abuse Patient Records regulations: The Federal rules restrict any use of the information to criminally investigate or prosecute any alcohol or drug abuse patient.[facility] CenterIn the event this information is protected by the Federal Confidentiality of Alcohol and Drug Abuse Patient Records regulations: The Federal rules restrict any use of the information to criminally investigate or prosecute any alcohol or drug abuse patient.[facility] CenterIn the event this information is protected by the Federal Confidentiality of Alcohol and Drug Abuse Patient Records regulations: The Federal rules restrict any use of the information to criminally investigate or prosecute any alcohol or drug abuse patient.[facility] CenterIn the event this information is protected by the Federal Confidentiality of Alcohol and Drug Abuse Patient Records regulations: The Federal rules restrict any use of the information to criminally investigate or prosecute any alcohol or drug abuse patient.[facility] CenterIn the event this information is protected by the Federal Confidentiality of Alcohol and Drug Abuse Patient Records regulations: The Federal rules restrict any use of the information to criminally investigate or prosecute any alcohol or drug abuse patient.[facility] CenterIn the event this information is protected by the Federal Confidentiality of Alcohol and Drug Abuse Patient Records regulations: The Federal rules restrict any use of the information to criminally investigate or prosecute any alcohol or drug abuse patient.[facility] CenterIn the event this information is protected by the Federal Confidentiality of Alcohol and Drug Abuse Patient Records regulations: The Federal rules restrict any use of the information to criminally investigate or prosecute any alcohol or drug abuse patient.[facility] CenterIn the event this information is protected by the Federal Confidentiality of Alcohol and Drug Abuse Patient Records regulations: The Federal rules restrict any use of the information to criminally investigate or prosecute any alcohol or drug abuse patient.[facility] CenterIn the event this information is protected by the Federal Confidentiality of Alcohol and Drug Abuse Patient Records regulations: The Federal rules restrict any use of the information to criminally investigate or prosecute any alcohol or drug abuse patient.[facility] CenterIn the event this information is protected by the Federal Confidentiality of Alcohol and Drug Abuse Patient Records regulations: The Federal rules restrict any use of the information to criminally investigate or prosecute any alcohol or drug abuse patient.[facility] CenterIn the event this information is protected by the Federal Confidentiality of Alcohol and Drug Abuse Patient Records regulations: The Federal rules restrict any use of the information to criminally investigate or prosecute any alcohol or drug abuse patient.[facility] CenterIn the event this information is protected by the Federal Confidentiality of Alcohol and Drug Abuse Patient Records regulations: The Federal rules restrict any use of the information to criminally investigate or prosecute any alcohol or drug abuse patient.[facility] CenterIn the event this information is protected by the Federal Confidentiality of Alcohol and Drug Abuse Patient Records regulations: The Federal rules restrict any use of the information to criminally investigate or prosecute any alcohol or drug abuse patient.[facility] CenterIn the event this information is protected by the Federal Confidentiality of Alcohol and Drug Abuse Patient Records regulations: The Federal rules restrict any use of the information to criminally investigate or prosecute any alcohol or drug abuse patient.[facility] CenterIn the event this information is protected by the Federal Confidentiality of Alcohol and Drug Abuse Patient Records regulations: The Federal rules restrict any use of the information to criminally investigate or prosecute any alcohol or drug abuse patient.[facility] CenterIn the event this information is protected by the Federal Confidentiality of Alcohol and Drug Abuse Patient Records regulations: The Federal rules restrict any use of the information to criminally investigate or prosecute any alcohol or drug abuse patient.[facility]In the event this information is protected by the Federal Confidentiality of Alcohol and Drug Abuse Patient Records regulations: The Federal rules restrict any use of the information to criminally investigate or prosecute any alcohol or drug abuse patient.[facility] CenterIn the event this information is protected by the Federal Confidentiality of Alcohol and Drug Abuse Patient Records regulations: The Federal rules restrict any use of the information to criminally investigate or prosecute any alcohol or drug abuse patient.[facility] CenterIn the event this information is protected by the Federal Confidentiality of Alcohol and Drug Abuse Patient Records regulations: The Federal rules restrict any use of the information to criminally investigate or prosecute any alcohol or drug abuse patient.[facility] CenterIn the event this information is protected by the Federal Confidentiality of Alcohol and Drug Abuse Patient Records regulations: The Federal rules restrict any use of the information to criminally investigate or prosecute any alcohol or drug abuse patient.[facility] Reason for Visit (unrecogniz ed section and content) Reason Comments F/U 6 months Reason Comments outside gastro Reason Onset Date Comments Refill Request 10/21/2022 Reason Comments Lab Orders Reason Comments Medicare Wellness Exam Reason Comments Results Reason Comments Patient Update Reason Comments Urinary Problem Pt reported urinary frequency, burning x1-2 wks, recent [facility] ER Visit 05/12/2023, 05/16/2023 completed [facility]. Reason Comments Outside Urology Reason Comments Cough Fever, ST, chest con gestion x2 days Reason Comments Radiology CT Specialty Diagnoses / Procedures Referred By Contac t Referred To Contact CT IMAG[facility] Diagnoses Pulmonary nodules Lung nodules Abnormal lung sounds Procedures CT CHEST WO IVCON DIAGNOSTIC COMPUTED TOMOGRAPHY THORAX W/O Rangel Bae MD [address] [place] [address] [place] [address] Referral ID Status Reason Start Date Expiration Date V isits Requested Visits Authorized [id number] Closed Auto-Generate d Referral 01/16/2023 02/15/2024 1 [...] Onset Date Comments Transition Of Care 04/10/2024 [facility] Discharge 04/09/24 Reason Comments Transition Of Care Reason Comments Appointment Reason Onset Date Comments Transition Of Care 04/17/2024 [facility] Follow-up Day 8 Reason Comments Urinary Problem Reason Comments New Patient Evaluation consultation Reason Comments Patient Question Reason Onset Date Comments Transition Of Care 04/23/2024 [facility] Follow-up Day 14 Reason Onset Date Comments Transition Of Care 04/28/2024 [facility] Follow-up Day 19 Reason Comments Spirometry Specialty Diagnoses / Procedures Referred By Contac t Referred To Contact [facility] Diagnoses Chronic cough Procedures SPIROMETRY WITH DILATOR IF OBSTRUCTED BRNCDILAT RSPSE SPMTRY PRE&POST-BRNCDILAT ADMN Cabrera Landeros MD [address] [place] [address] [facility] [place] [address] [place] [address] Referral ID Status Reason Start Date Expiration Date V isits Requested Visits Authorized [id number] Closed Auto-Generate d Referral 04/19/2024 05/19/2025 1 1 Specialty Diagnoses / Procedures Referred By Charleneac t Referred To Contact [facility] Diagnoses Chronic cough Procedures NITRIC OXIDE, EXHALED NITRIC OXIDE GAS DETERMINATION Cabrera Landeros MD [address] [place] [address] [facility] [place] [address] [place] [address] Referral ID Status Reason Start Date Expiration Date V isits Requested Visits Authorized [id number] Closed Auto-Generate d Referral 04/19/2024 05/19/2025 1 1 Reason Onset Date Comments Refill Request 05/01/2024 Reason Comments Pain Reason Onset Date Comments Transition Of Care 05/07/2024 [facility], Follow-up Day 28 Reason Comments Vaginal Problem Reason Comments Outside Momf-Ydl-RNA Ordered Reason Comments Follow Up Reason Comments New Patient Specialty Diagnoses / Procedures Referred By Shelli t Referred To Contact Hematology Diagnoses History of pulmonary embolus (PE) Procedures CONSULT TO HEMATOLOGY OFFICE/OUTPATIENT NEW HIGH MDM 60 MINUTES Rangel Bonilla MD [address] [place] [address] Referral ID Status Reason Start Date Expiration Date V isits Requested Visits Authorized [id number] Closed PCP Requested Referral 04/15/2024 04/15/2025 1 1 Reason Comments Follow Up Reason Comments Orders Reason Comments Consult Dr. Suazo [facility] Reason Comments Radiology US Specialty Diagnoses / Procedures Referred By Shelli t Referred To Contact [facility] Diagnoses Abnormal mammogram of both breasts Procedures US BREAST LTD LEFT US BREAST UNI REAL TIME WITH IMAGE LIMITED Lorri Clark DO [address] [place] [address] [facility] [address] [place] [address] Referral ID Status Reason Start Date Expiration Date V isits Requested Visits Authorized [id number] Closed Auto-Generate d Referral 06/10/2024 07/10/2025 1 [...] BREAST UNI REAL TIME WITH IMAGE LIMITED Lorri Clark, DO [address] [place] [address] Phone: tel: fax: [facility] [address] [place] [address] Referral ID Status Reason Start Date Expiration Date V isits Requested Visits Authorized [id number] Closed Auto-Generate d Referral 12/13/2024 07/12/2025 1 [...] Consult Reason Comments Patient Question Patient Update Reason Onset Date Comments Medication Problem with Xarelto- requesting Coumadin Anticoagulation 03/19/2025 Reason Comments Outside ENT Reason Onset Date Comments Anticoagulation Telephone Fu 04/24/2025 Lab INR Reason Onset Date Comments Anticoagulation Telephone Fu 04/24/2025 [facility] INR Reason Comments Anticoagulation Telephone Fu Home INR re sult Reason Comments Urinary Frequency Frequency, urgency a nd burning x 1 day Reason Comments referral request Reason Comments Vaginal Problem Discomfort since hav ing UTI. Having burning while just sitting. Reason Comments Patient Update Reason Comments Vaginal Problem burning and itching, given 1 fluconazole last , ? another one Reason Onset Date Comments Population Health Navigation Outreach 06/24/2025 Sameer/[facility] Reason Onset Date Comments Anticoagulation Telephone Fu 06/17/2025 [facility] INR Result Reason Comments Anticoagulation Telephone Fu INR result Reason Comments Nasal Congestion drainage, cough, fev er, bodyaches and diarrhea x 1 day Reason Comments Anticoagulation Telephone Fu Reason Comments Cold Cough, congestion Reason Onset Date Comments Results 07/09/2025 Reason Onset Date Comments Anticoagulation Telephone Fu 07/14/2025 [facility] INR Result Reason Comments Patient Update Appointment Care Teams (unrecognized sec tion and content) Case Packer Relationship Specialty Start Date End Date Rangel Bonilla MD [address] [place] [address] PCP - General Family Practice 07/20/16 Case Packer Relationship Specialty Start Date End Date Rangel Bonilla MD [address] [place] [address] PCP - General Family Practice 07/20/16 Case Packer Relationship Specialty Start Date End Date Rangel Bonilla MD [address] [place] [address] PCP - General Family Medicine 07/20/16 Case Packer Relationship Specialty Start Date End Date Rangel Bonilla MD [address] [place] [address] PCP - General Family Medicine 07/20/16 Case Packer Relationship Specialty Start Date End Date Rangel Bonilla MD [address] [place] [address] PCP - General Family Medicine 07/20/16 Case Packer Relationship Specialty Start Date End Date Rangel Bonilla MD [address] [place] [address] PCP - General Family Medicine 07/20/16 Case Packer Relationship Specialty Start Date End Date Rangel Bonilla MD [facility] [place] [address] PCP - General Family Medicine 07/20/16 Team Status: Active Member Role Status Dates Dr. Rangel Bonilla MD Family Provider Active Dr. Rangel Bonilla MD Primary Care Provider Active Team Status: Inactive Member Role Status Dates Dr. Rangel Bonilla MD Primary Care Provider Active Dr. Alexx Rapp , DO Emergency Provider Active Team Status: Inactive Member Role Status Dates Dr. Rangel Bonilla MD Primary Care Provider Active Dr. Leonardo Haq , DO Emergency Provider Active Case Packer Relationship Specialty Start Date End Date Rangel Bonilla MD [address] [place] [address] PCP - General Family Medicine 07/20/16 Case Packer Relationship Specialty Start Date End Date Rangel Bonilla MD [address] [place] [address] PCP - General Family Medicine 07/20/16 Case Packer Relationship Specialty Start Date End Date Rangel Bonilla MD [address] [place] [address] PCP - General Family Medicine 07/20/16 Case Packer Relationship Specialty Start Date End Date Rangel Bonilla MD [address] [place] [address] PCP - General Family Medicine 07/20/16 Case Packer Relationship Specialty Start Date End Date aRngel Bonilla MD [address] [place] [address] PCP - General Family Medicine 07/20/16 Case Packer Relationship Specialty Start Date End Date Rangel Bonilla MD [address] [place] [address] PCP - General Family Medicine 07/20/16 Case Packer Relationship Specialty Start Date End Date Rangel Bonilla MD [address] [place] [address] PCP - General Family Medicine 07/20/16 Case Packer Relationship Specialty Start Date End Date Rangel Bonilla MD [address] [place] [address] PCP - General Family Medicine 07/20/16 Case Packer Relationship Specialty Start Date End Date Rangel Bonilla MD [address] [place], [place] [address] PCP - General Family Medicine 07/20/16 Team [...] Brewer DO Attending Provider, Emergency Provider Active Case Packer Relationship Specialty Start Date End Date Rangel Bonilla MD [address] [place] [address] PCP - General Family Medicine 07/20/16 Case Packer Relationship Specialty Start Date End Date Rangel Bonilla MD [address] [place] [address] PCP - General Family Medicine 07/20/16 Case Packer Relationship Specialty Start Date End Date Rangel Bonilla MD [address] [place] [address] PCP - General Family Medicine 07/20/16 Case Packer Relationship Specialty Start Date End Date Rangel Bonilla MD [address] [place] [address] PCP - General Family Medicine 07/20/16 Lupe Grijalva, RN [address] [facility] [place] [address] Primary Care Gr[employer] 04/10/24 Case Packer Relationship Specialty Start Date End Date Rangel Bonilla MD [address] [place] [address] PCP - General Family Medicine 07/20/16 Lupe Grijalva, RN [address] [facility] [place] [address] Primary Care [employer] 04/10/24 Case Packer Relationship Specialty Start Date End Date Rangel Bonilla MD [address] [place] [address] PCP - General Family Medicine 07/20/16 Lupe Grijalva, RN [address] [facility] [place] [address] Primary Care [employer] 04/10/24 Case Packer Relationship Specialty Start Date End Date Rangel Bonilla MD [address] [place] [address] PCP - General Family Medicine 07/20/16 Lupe Grijalva, RN [address] [facility] [place] [address] Primary Care [employer] 04/10/24 Case Packer Relationship Specialty Start Date End Date Rangel Bonilla MD [address] [place] [address] PCP - General Family Medicine 07/20/16 Lupe Grijalva, RN [address] [facility] [place] [address] Primary Care Gr[employer] 04/10/24 Case Packer Relationship Specialty Start Date End Date Rangel Bonilla MD [address] [place] [address] PCP - General Family Medicine 07/20/16 Lupe Grijalva, RN [address] [facility] [place] [address] Primary Care Grinder [employer] 04/10/24 Case Packer Relationship Specialty Start Date End Date Rangel Bonilla MD [address] [place] [address] PCP - General Family Medicine 07/20/16 Lupe Grijalva, RN [address] [facility] [place] [address] Primary Care Gr[employer] 04/10/24 Case Packer Relationship Specialty Start Date End Date Rangel Bonilla MD [address] [place] [address] PCP - General Family Medicine 07/20/16 Lupe Grijalva, RN [address] [facility] [place] [address] Primary Care Gr[employer] 04/10/24 Case Packer Relationship Specialty Start Date End Date Rangel Bonilla MD [address] [place] [address] PCP - General Family Medicine 07/20/16 Lupe Grijalva, RN [address] [facility] [place] [address] Primary Care Gr[employer] 04/10/24 Case Packer Relationship Specialty Start Date End Date Rangel Bonilla MD [address] [place] [address] PCP - General Family Medicine 07/20/16 Lupe Grijalva, ALONDRA [address] [place] [address] Primary Care Grinder [employer] 04/10/24 Case Packer Relationship Specialty Start Date End Date Rangel Bonilla MD [address] [place] [address] PCP - General Family Medicine 07/20/16 Case Packer Relationship Specialty Start Date End Date Rangel Bonilla MD [address] [place] [address] PCP - General Family Medicine 07/20/16 Case Packer Relationship Specialty Start Date End Date Rangel Bonilla MD [address] [place] [address] PCP - General Family Medicine 07/20/16 Case Packer Relationship Specialty Start Date End Date Rangel Bonilla MD [address] [place] [address] PCP - General Family Medicine 07/20/16 Case Packer Relationship Specialty Start Date End Date Rangel Bonilla MD [address] [place] [address] PCP - General Family Medicine 07/20/16 Case Packer Relationship Specialty Start Date End Date Rangel Bonilla MD [address] [place] [address] PCP - General Family Medicine 07/20/16 Case Packer Relationship Specialty Start Date End Date Rangel Bonilla MD [address] [place] [address] PCP - General Family Medicine 07/20/16 Case Packer Relationship Specialty Start Date End Date Rangel Bonilla MD [address] [place] [address] PCP - General Family Medicine 07/20/16 Case Packer Relationship Specialty Start Date End Date Rangel Bonilla MD [address] [place] [address] PCP - General Family Medicine 07/20/16 Case Packer Relationship Specialty Start Date End Date Rangel Bonilla MD [address] [place] [address] PCP - General Family Medicine 07/20/16 Case Packer Relationship Specialty Start Date End Date Rangel Bonilla MD [address] [place] [address] PCP - General Family Medicine 07/20/16 Case Packer Relationship Specialty Start Date End Date Rangel Bonilla MD [address] [place] [address] PCP - General Family Medicine 07/20/16 Case Packer Relationship Specialty Start Date End Date Rangel Bonilla MD [address] [place] [address] PCP - General Family Medicine 07/20/16 Case Packer Relationship Specialty Start Date End Date Rangel Bonilla MD [address] [place] [address] PCP - General Family Medicine 07/20/16 Case Packer Relationship Specialty Start Date End Date Rangel Bonilla MD [address] [place] [address] PCP - General Family Medicine 07/20/16 Case Packer Relationship Specialty Start Date End Date Rangel Bonilla MD [address] [place] [address] PCP - General Family Medicine 07/20/16 Case Packer Relationship Specialty Start Date End Date Rangel Bonilla MD [address] [place] [address] PCP - General Family Medicine 07/20/16 Case Packer Relationship Specialty Start Date End Date Rangel Bonilla MD [address] [place] [address] PCP - General Family Medicine 07/20/16 Case Packer Relationship Specialty Start Date End Date Rangel Bonilla MD [address] [place] [address] PCP - General Family Medicine 07/20/16 Alan Vigil, [employer] [address] [place] [address] [facility] 10/12/24 Rayna Martinez PA-C [address] [place] [address] [facility] 10/12/24 Case Packer Relationship Specialty Start Date End Date Rangel Bonilla MD [address] [place] [address] PCP - General Family Medicine 07/20/16 Alan Vigil, [employer] [address] [place] [address] [facility] 10/12/24 Rayna Martinez PA-C [address] [place] [address] [facility] 10/12/24 Case Packer Relationship Specialty Start Date End Date Rangel Bonilla MD [address] [place] [address] PCP - General Family Medicine 07/20/16 Alan Vigil APRN.[employer] [address] [place] [address] [facility] 10/12/24 Rayna Martinez PA-C [address] [place] [address] [employer] [facility] 10/12/24 Case Packer Relationship Specialty Start Date End Date Rangel Bonilla MD [address] [place] [address] PCP - General Family Medicine 07/20/16 Alan Vigil APRN.[employer] [address] [place] [address] [facility] 10/12/24 Rayna Martinez PA-C [address] [place] [address] [facility] 10/12/24 Case Packer Relationship Specialty Start Date End Date Rangel Bonilla MD [address] [place] [address] PCP - General Family Medicine 07/20/16 Alan Vigil APRN.[employer] [facility] [place] [address] [facility] 10/12/24 Rayna Martinez PA-C [address] [place] [address] [employer] 10/12/24 Case Packer Relationship Specialty Start Date End Date Rangel Bonilla MD [address] [place] [address] PCP - General Family Medicine 07/20/16 Alan Vigil APRN.[employer] [address] [place] [address] [facility] 10/12/24 Rayna Martinez PA-C [address] [place] [address] [facility] 10/12/24 Case Packer Relationship Specialty Start Date End Date Rangel Bonilla MD [address] [place] [address] PCP - General Family Medicine 07/20/16 Alan Vigil [employer]N.[employer] [address] [place] [address] [facility] 10/12/24 Rayna Martinez PA-C [address] [place] [address] [facility] 10/12/24 Case Packer Relationship Specialty Start Date End Date Rangel Bonilla MD [address] [place] [address] PCP - General Family Medicine 07/20/16 Alan Vigil [employer]N.[employer] [address] [place] [address] [facility] 10/12/24 Rayna Martinez PA-C [address] [place] [address] [facility] 10/12/24 Case Packer Relationship Specialty Start Date End Date Rangel Bonilla MD [address] [place] [address] PCP - General Family Medicine 07/20/16 Alan Vigil [employer]N.[employer] [address] [place] [address] [facility] 10/12/24 Rayna Martinez PA-C [address] [place] [address] [facility] 10/12/24 Case Packer Relationship Specialty Start Date End Date Rangel Bonilla MD [address] [place] [address] PCP - General Family Medicine 02/10/25 lAan Vigil, [employer] [facility] [place] [address] [facility] 10/12/24 Rayna Martinez PA-C [address] [place] [address] [facility] 10/12/24 Case Packer Relationship Specialty Start Date End Date Rangel Bonilla MD [address] [place] [address] PCP - General Family Medicine 02/10/25 Alan Vigil APRN.[employer] [address] [place] [address] [facility] 10/12/24 Rayna Martinez PA-C [address] [place] [address] [facility] 10/12/24 Case Packer Relationship Specialty Start Date End Date Rangel Bonilla MD [address] [place] [address] PCP - General Family Medicine 02/10/25 Alan Vigil [employer]N.[employer] [address] [place] [address] [facility] 10/12/24 Rayna Martinez PA-C [address] [place] [address] [facility] 10/12/24 Case Packer Relationship Specialty Start Date End Date Rangel Bonilla MD [address] [place] [address] PCP - General Family Medicine 02/10/25 Alan Vigil [employer] [facility] [place] [address] [facility] 10/12/24 Rayna Martinez PA-C [address] [place] [address] [facility] 10/12/24 Case Packer Relationship Specialty Start Date End Date Rangel Bonilla MD [address] [place], [place] [address] PCP - General Family Medicine 02/10/25 Rayna Martinez PA-C [address] [place], [place] [address] [facility] 10/12/24 Case Packer Relationship Specialty Start Date End Date Rangel Bonilla MD [address] [place], [place] [address] PCP - General Family Medicine 02/10/25 Rayna Martinez PA-C [address] [place] [address] [facility] 10/12/24 Case Packer Relationship Specialty Start Date End Date Rangel Bonilla MD [address] [place], [place] [address] PCP - General Family Medicine 02/10/25 Alan Vigil APRN.CNP [address] [place], [place] [address] [facility] 04/07/25 Rayna Martinez PA-C [address] [place], [place] [address] [facility] 04/07/25 Team Status: Active Member Role Status Dates Dr. Rangel Bonilla MD Primary Care Provider Active Team Status: Inactive Member Role Status Dates Dr. Rangel Bonilla MD Primary Care Provider Active Start: April 13, 2025 End: April 13, 2025 Dr. Sen Olivas , Emergency Provider Active S tart: April 13, 2025 End: April 13, 2025 Case Packer Relationship Specialty Start Date End Date Rangel Bonilla MD [address] [place] [address] PCP - General Family Medicine 02/10/25 Alan Vigil, [employer] [address] [place] [address] [facility] 10/12/24 03/23/25 Rayna Martinez PA-C [address] [place] [address] [facility] 10/12/24 04/06/25 Alan Vigil, [employer] [address] [place] [address] [facility] 04/07/25 Rayna Martinez PA-C [address] [place] [address] [facility] 04/07/25 Case Packer Relationship Specialty Start Date End Date Rangel Bonilla MD [address] [place] [address] PCP - General Family Medicine 02/10/25 Alan Vigil, [employer] [facility] [place] [address] [facility] 04/07/25 Rayna Martinez PA-C [address] [place] [address] [facility] 04/07/25 13, Pharmacist [address] [place] [address] Pharmacist Pharmacy 04/16/25 Case Packer Relationship Specialty Start Date End Date Rangel Bonilla MD [address] [place] [address] PCP - General Family Medicine 02/10/25 Alan Vigil APRN.[employer] [address] [place] [address] [facility] 04/07/25 Rayna Martinez PA-C [address] [place] [address] [facility] 04/07/25 13, Pharmacist [phone] [place] [address] Pharmacist Pharmacy 04/16/25 Case Packer Relationship Specialty Start Date End Date Rangel Bonilla MD [address] [place] [address] PCP - General Family Medicine 02/10/25 Alan Vigil APRN.[employer] [address] [place] [address] [facility] 04/07/25 Rayna Martinez PA-C [address] [place] [address] [facility] 04/07/25 13, Pharmacist [phone] [place] [address] Pharmacist Pharmacy 04/16/25 Case Packer Relationship Specialty Start Date End Date Rangel Bonilla MD [address] [place] [address] PCP - General Family Medicine 02/10/25 Alan Vigil APRN.[employer] [address] [place] [address] [facility] 04/07/25 Rayna Martinez PA-C [address] [place] [address] [facility] 04/07/25 13, Pharmacist [id number] [place] [address] Pharmacist Pharmacy 04/16/25 Case Packer Relationship Specialty Start Date End Date Rangel Bonilla MD [address] [place] [address] PCP - General Family Medicine 02/10/25 Alan Vigil APRN.[employer] [address] [place] [address] [facility] 04/07/25 Rayna Martinez PA-C [address] [place] [address] [facility] 04/07/25 13, Pharmacist [address] [place] [address] Pharmacist Pharmacy 04/16/25 Case Packer Relationship Specialty Start Date End Date Rangel Bonilla MD [address] [place] [address] PCP - General Family Medicine 02/10/25 Alan Vigil APRN.[employer] [address] [place] [address] [facility] 04/07/25 Rayna Martinez PA-C [address] [place] [address] [facility] 04/07/25 13, Pharmacist [phone] [place], [place] [id number] Pharmacist Pharmacy 04/16/25 Team Status: Active Member Role/Relationship Status Dates Dr. Rangel Bonilla MD Primary Care Provider Active Team Status: Inactive Member Role/Relationship Status Dates Dr. Rangel Bonilla MD Primary Care Provider Active Start: April 13, 2025 End: April 13, 2025 Dr. Sen Olivas DO Attending Provider Active S tart: April 13, 2025 End: April 13, 2025 Dr. Sen Olivas DO Emergency Provider Active S tart: April 13, 2025 End: April 13, 2025 Team Status: Inactive Member Role/Relationship Status Dates Dr. Rangel Bonilla MD Primary Care Provider Active Start: May 06, 2025 Dr. Mala Coello MD Attending Provider Active Start: May 06, 2025 Team Status: Inactive Member Role/Relationship Status Dates Dr. Rangel Bonilla MD Primary Care Provider Active Start: June 06, 2025 End: June 06, 2025 Dr. Rangel Bonilla MD Referring Provider Active Start: June 06, 2025 End: June 06, 2025 Dr. Mala Coello MD Attending Provider Active Start: June 06, 2025 End: June 06, 2025 Case Packer Relationship Specialty Start Date End Date Rangel Bonilla MD [address] [place] [address] PCP - General Family Medicine 02/10/25 Alan Vigil APRN.CNP [address] [place] [address] [facility] 04/07/25 Rayna Martinez PA-C [address] [place] [address] [facility] 04/07/25 13, Pharmacist [address] [place] [address] Pharmacist Pharmacy 04/16/25 Case Packer Relationship Specialty Start Date End Date Rangel Bonilla MD [address] [place] [address] PCP - General Family Medicine 02/10/25 Alan Vigil APRN.[employer] [address] [place] [address] [facility] 04/07/25 Rayna Martinez PA-C [address] [place] [address] [facility] 04/07/25 13, Pharmacist [phone] [place] [address] Pharmacist Pharmacy 04/16/25 Case Packer Relationship Specialty Start Date End Date Rangel Bonilla MD [address] [place] [address] PCP - General Family Medicine 02/10/25 Alan Vigil APRN.[employer] [address] [place] [address] [facility] 04/07/25 Rayna Martinez PA-C [address] [place] [address] [facility] 04/07/25 13, Pharmacist [phone] [place] [address] Pharmacist Pharmacy 04/16/25 Case Packer Relationship Specialty Start Date End Date Rangel Bonilla MD [address] [place] [address] PCP - General Family Medicine 02/10/25 Alan Vigil APRN.[employer] [address] [place] [address] [facility] 04/07/25 Rayna Martinez PA-C [address] [place] [address] [facility] 04/07/25 13, Pharmacist [id number] [place], [place] [id number] Pharmacist Pharmacy 04/16/25 Case Packer Relationship Specialty Start Date End Date Rangel Bonilla MD [address] [place] [address] PCP - General Family Medicine 02/10/25 Alan Vigil APRN.[employer] [address] [place] [address] [facility] 04/07/25 Rayna Martinez PA-C [address] [place] [address] [employer] [facility] 04/07/25 13, Pharmacist [phone] [place], [place] [id number] Pharmacist Pharmacy 04/16/25 Team Status: Active Member Role/Relationship Status Dates Dr. Rangel Bonilla MD Primary care physician Active Team Status: Inactive Member Role/Relationship Status Dates Dr. Rangel Bonilla MD Primary care physician Active Start: April 13, 2025 End: April 13, 2025 Dr. Sen Olivas DO Attending physician Active Start: April 13, 2025 End: April 13, 2025 Dr. Sen Olivas DO Emergency Department Physician Ac tive Start: April 13, 2025 End: April 13, 2025 Team Status: Inactive Member Role/Relationship Status Dates Dr. Rangel Bonilla MD Primary care physician Active Start: May 06, 2025 Dr. Mala Coello MD Attending physician Active Start: May 06, 2025 Team Status: Inactive Member Role/Relationship Status Dates Dr. Rangel Bonilla MD Primary care physician Active Start: June 06, 2025 End: June 06, 2025 Dr. Rangel Bonilla MD Referring Provider Active Start: June 06, 2025 End: June 06, 2025 Dr. Mala Coello MD Attending physician Active Start: June 06, 2025 End: June 06, 2025 Team Status: Inactive Member Role/Relationship Status Dates Dr. Rangel Bonilla MD Primary care physician Active Start: July 22, 2025 End: July 22, 2025 Dr. Dominic Diaz DO Attending physician Active Start: July 22, 2025 End: July 22, 2025 Dr. Dominic Diaz DO Emergency Departme nt Physician Active Start: July 22, 2025 End: July 22, 2025 Team Status: Inactive Member Role/Relationship Status Dates Dr. Rangel Bonilla MD Primary care physician Active Start: July 28, 2025 End: July 28, 2025 Ed Physician Provider Attending physician Active Start: July 28, 2025 End: July 28, 2025 Ed Physician Provider Emergency Departme nt Physician Active Start: July 28, 2025 End: July 28, 2025 Team Status: Inactive Member Role/Relationship Status Dates Dr. Rangel Bonilla MD Primary care physician Active Start: May 06, 2025 Dr. Mala Coello MD Attending physician Active Start: May 06, 2025 Team Status: Inactive Member Role/Relationship Status Dates Dr. Rangel Bonilla MD Primary care physician Active Start: June 06, 2025 End: June 06, 2025 Dr. Rangel Bonilla MD Referring Provider Active Start: June 06, 2025 End: June 06, 2025 Dr. Mala Coello MD Attending physician Active Start: June 06, 2025 End: June 06, 2025 Team Status: Inactive Member Role/Relationship Status Dates Dr. Rangel Bonilla MD Primary care physician Active Start: July 22, 2025 End: July 22, 2025 Dr. Dominic Diaz DO Attending physician Active Start: July 22, 2025 End: July 22, 2025 Dr. Dominic Diaz DO Emergency Departme nt Physician Active Start: July 22, 2025 End: July 22, 2025 Team Status: Inactive Member Role/Relationship Status Dates Dr. Rangel Bonilla MD Primary care physician Active Start: July 28, 2025 End: July 28, 2025 Ed Physician Provider Attending physician Active Start: July 28, 2025 End: July 28, 2025 Ed Physician Provider Emergency Departme nt Physician Active Start: July 28, 2025 End: July 28, 2025 Team Status: Inactive Member Role/Relationship Status Dates Dr. Rangel Bonilla MD Primary care physician Active Start: August 18, 2025 End: August 18, 2025 Dr. Rangel Bonilla MD Referring Provider Active Start: August 18, 2025 End: August 18, 2025 Dr. Zane Granado DO Attending physician Active Start: August 18, 2025 End: August 18, 2025 Team Status: Inactive Member Role/Relationship Status Dates Dr. Rangel Bonilla MD Primary care physician Active Start: August 22, 2025 End: August 22, 2025 Dr. Rangel Bonilla MD Referring Provider Active Start: August 22, 2025 End: August 22, 2025 Dr. Mala Coello MD Attending physician Active Start: August 22, 2025 End: August 22, 2025 Team Status: Inactive Member Role/Relationship Status Dates Dr. Rangel Bonilla MD Primary care physician Active Start: September 01, 2025 End: September 01, 2025 Dr. Rangel Bonilla MD Referring Provider Active Start: September 01, 2025 End: September 01, 2025 Dr. Mala Coello MD Attending physician Active Start: September 01, 2025 End: September 01, 2025 INFORMATION SOURCE (unrecogn ized section and content) DATE CREATED AUTHOR 07/12/2022 [employer] DATE CREATED AUTHOR AUTHOR'S ORGANIZ ATION 12/24/2022 [facility] DATE CREATED AUTHOR AUTHOR'S ORGANIZ ATION 01/16/2025 [facility] DATE CREATED AUTHOR AUTHOR'S ORGANIZ ATION 2025 [facility] DATE CREATED AUTHOR AUTHOR'S ORGANIZ ATION 09/18/2025 [facility] FOR RECORDS PERTAINING TO PATIENTS WHO ARE [...] BE BASED ON THE PRIMARY CLINICAL RECORDS. [facility] [employer] [facility]. provides no warranty or guarantee of the accuracy or completeness of information in this document.
[2025-10-24 07:06] VITALS: BP 174/94; PULSE 90; RESP 18; TEMP 36.6; O2SAT 99
--- NOTE | 2025-10-24 07:07 | EX.ED.DYSGE1 ---
HPI History of Present Illness Chief Complaint: General Illness Narrative Narrative: Patient was seen and examined after presenting to ED for UTI she states that she has had them on multiple occasions she states that she went to her PCPs office yesterday was told she had a urine infection but the results will not be finalized she took 2 doses of Macrobid she wanted come in here just to make sure because she did not quite feel well from it. [facility] Medical History Viral illness Leukocytosis UTI (urinary tract infection) Cough Post-menopausal Alcohol use History of steroid therapy Easy bruising PONV (postoperative nausea and vomiting) Non-smoker Cardiology follow-up encounter History of echocardiogram History of stress test Hypertension Hx of migraines UTI (urinary tract infection) DDD (degenerative disc disease), lumbar Spinal stenosis Chronic back pain Cystitis GERD (gastroesophageal reflux disease) Infection due to ESBL-producing Escherichia coli Essential (primary) hypertension Hyperlipidemia Home Medications ?Medication ?Instructions ?Recorded ?Last Taken ?Type ascorbic acid (vitamin C) 1,000 mg 1 cap PO QHS vitamin 04/07/22 Unknown History capsule,extended release simvastatin 10 mg tablet 10 mg PO DAILY cholesterol 11/08/23 04/04/24 History sumatriptan succinate 100 mg tablet 100 mg PO Q2H PRN migraine headache 11/08/23 Unknown History d-mannose 500 mg capsule 2,000 mg PO DAILY 11/08/24 Unknown History cholecalciferol (vitamin D3) 25 25 mcg PO QDAY 06/06/25 Unknown History mcg (1,000 unit) capsule vitamins A,C,L-xiqs-chmlue 4,296 1 cap PO BID 06/06/25 Unknown History mcg-226 mg-90 mg capsule (PreserVision AREDS) apixaban 2.5 mg tablet (Eliquis) 2.5 mg PO BID 08/18/25 Unknown History ondansetron 4 mg disintegrating 4 mg PO Q6H PRN nausea and 08/18/25 Unknown Rx tablet vomiting #60 tabs estradiol 0.01% (0.1 mg/gram) 1 g vaginal 3XW 08/22/25 Unknown History vaginal cream famotidine 20 mg tablet 20 mg PO QHS for acid reflux #60 09/25/25 Unknown Rx TABLETS linaclotide 145 mcg capsule 145 mcg PO DAILY #30 caps 10/07/25 Unknown Rx (Linzess) cephalexin 500 mg capsule 500 mg PO Q6 #28 CAPSULES 10/24/25 Unknown Rx ondansetron 4 mg disintegrating 4 mg PO Q8H PRN PRN Nausea #30 tabs 10/24/25 Unknown Rx tablet Allergy/AdvReac Type Severity Reaction Status Date / Time No Known Allergies Allergy Verified 10/24/25 06:16 Family History Mother Heart disease Father Heart disease Brother Heart disease CAD (coronary artery disease) Surgical History History of back surgery S/P subdural hematoma evacuation History of appendectomy History of laparoscopic cholecystectomy History of hysterectomy Social History household members: spouse housing: house Smoking Status: Never smoker ROS ROS ED ROS Narrative Pertinent Positives: UTI-like symptoms nausea Pertinent Negatives: Fevers chills vomiting diarrhea black or bloody stools body aches chest pain pressure shortness of breath The remainder of review of systems negative unless otherwise stated in the HPI above. Systems reviewed including constitutional, psychiatric, cardiovascular, respiratory, integument, HENT, gastrointestinal. EXAM Physical Exam Narrative Exam Narrative: Patient is overall very well-appearing. She is afebrile she is hemodynamically stable does not appear toxic or in distress she ambulated without any issue into the emergency department. Normal heart and lung sounds. Abdomen is soft nontender nondistended no palpable pulsatile mass her skin is warm and well-perfused. Normal range of motion of her head and neck. Const Vital Signs: 10/24/25 06:13 10/24/25 06:13 10/24/25 06:16 Temperature 98.2 F 98.2 F Temperature Source Oral Oral Pulse Rate 108 H 101 H Respiratory Rate 18 18 Respiratory Effort Normal Respiratory Pattern Normal Blood Pressure 184/102 H 174/94 H Blood Pressure Mean 129 120 Pulse Ox 96 98 Oxygen Delivery Method Room Air Room Air 10/24/25 07:06 Temperature 98 F Temperature Source Pulse Rate 90 Respiratory Rate 18 Respiratory Effort Respiratory Pattern Blood Pressure 174/94 H Blood Pressure Mean 120 Pulse Ox 99 Oxygen Delivery Method MDM MDM MDM Narrative Medical decision making narrative: Nursing notes, triage notes, available previous documentation, and vital signs were reviewed. Any discrepancies noted were addressed. Differential Diagnoses: UTI very low suspicion for pneumonia meningitis or even viral process Interventions: Zofran Antibiotics Given: Keflex Labs Reviewed: Nitrate positive urine with 25 blood and 500 leukocyte esterase with 10-25 WBCs Previous Documentation Reviewed: None available or applicable at this time. ED Course: Patient presenting with symptoms concerning for UTI she just took 2 doses of Macrobid. Given my own personal experience with Macrobid and her history of recurrent UTIs went ahead and provide her with Keflex instead told her to stop taking the Macrobid and to go ahead and use the Keflex that I sent a prescription for we will also send prescription for Zofran she is feeling better from the Zofran itself on reevaluation at this point in time patient stable for discharge home return precautions follow-up recommendations provided. This note was made utilizing voice recognition software. All attempts were made to correct spelling or other errors prior to note completion. However, due to the fast-paced nature of emergency medicine, some errors may still be present. Lab Data Labs: Laboratory Results - last 24 hr 10/24/25 06:25 Urine Color Yellow Urine Clarity Sl. Cloudy Urine pH 7.0 Ur Specific [place] 1.010 Urine Protein Negative Urine Glucose (UA) Normal Urine Ketones Negative Urine Occult Blood 25 H Urine Nitrite Positive H Urine Bilirubin 3 H Urine Urobilinogen 4 H Ur Leukocyte Esterase 500 H Urine RBC 0-5 SEEN Urine WBC 10-25 SEEN Ur Squamous Epith Cells 0-5 SEEN Urine Bacteria RARE Urine Mucus 0 SEEN Discharge Plan Triage Chief Complaint: General Illness Other Complaint: Complaint ED Provider: Letha Skinner Dx/Rx/DC Orders Clinical Impression: Acute UTI, Nausea, History of recurrent UTI (urinary tract infection) Instructions: ED UTIs Women Prescriptions: New cephalexin 500 mg capsule 500 mg PO Q6 Qty: 28 0RF ondansetron 4 mg tablet,disintegrating 4 mg PO Q8H PRN PRN (Reason: Nausea) Qty: 30 0RF No Action d-mannose 500 mg capsule 2,000 mg PO DAILY cholecalciferol (vitamin D3) 25 mcg (1,000 unit) capsule 25 mcg PO QDAY PreserVision AREDS 4,296 mcg-226 mg-90 mg capsule 1 cap PO BID Eliquis 2.5 mg tablet 2.5 mg PO BID ondansetron 4 mg tablet,disintegrating 4 mg PO Q6H PRN (Reason: nausea and vomiting) Qty: 60 1RF estradiol 0.01 % (0.1 mg/gram) cream 1 g vaginal 3XW ascorbic acid (vitamin C) 1,000 mg Capsule, Extended Release 1 cap PO QHS sumatriptan succinate 100 mg tablet 100 mg PO Q2H PRN (Reason: migraine headache) simvastatin 10 mg tablet 10 mg PO DAILY famotidine 20 mg tablet 20 mg PO QHS Qty: 60 0RF Linzess 145 mcg capsule 145 mcg PO DAILY Qty: 30 3RF Primary Care Provider: Rangel Santos Referrals: Rangel Santos MD [Primary Care Provider, Family Practice] Activity Restrictions/Additional Instructions: You definitely have a urinary tract infection I am providing you with a different prescription for antibiotics I would not take the Macrobid that you have I would take this specific antibiotic you will take it 4 times a day for a total of 7 days. You did receive your first dose here. Also we are providing you with a prescription for nausea medicine you can follow-up with your primary care doctor and you can always return if you are not getting any better however usually takes 2 to 3 days of antibiotics to really see improvement but if you are rapidly getting worse please return Print Language: Surinamese Disposition Disposition: Home, Self Care
== END 2025-10-24 07:14 | disposition home or self-care (01) ==
PROVIDERS: Emergency Provider Specialist/Technologist Athletic Trainer; PCP Family Medicine; Visit Provider Specialist/Technologist Athletic Trainer
DX: N39.0 Urinary tract infection, site not specified (principal); I10 Essential (primary) hypertension; R11.0 Nausea; K21.9 Gastro-esophageal reflux disease without esophagitis; E78.5 Hyperlipidemia, unspecified; Z87.440 Personal history of urinary (tract) infections
CPT/HCPCS: 81001; 99283

== ENCOUNTER 2025-11-03 16:52 | Emergency (ER) | payer MEDICARE, OTHER, SELFPAY ==
[2025-11-03 16:53] VITALS: BP 164/95; PULSE 107; RESP 16; TEMP 36.7; O2SAT 97; BMI 24.6
--- NOTE | 2025-11-03 18:42 | ED.RN ---
pt reports not wanting to wait for room any longer. had urine sample at drs office today and would like to see how she does overnight.
== END 2025-11-03 18:43 | disposition left against medical advice (07) ==
LOC: ED 18:47
PROVIDERS: PCP Family Medicine
DX: Z53.21 Procedure and treatment not carried out due to patient leaving prior to being seen by health care provider (principal)